=== PATIENT | male | born 1950 | race Caucasian/White ===

== ENCOUNTER 2020-10-21 11:26 | Inpatient (IN) | payer MEDICARE, OTHER ==
[2020-10-21 12:11] LABS: Anisocytosis Slight; Basophils % (A) 1 %; Eosinophils # (A) 0.1 k/uL (0-0.7); Eosinophils % (A) 1 %; HCT 40.2 % (39.0-53.0); HGB 13.4 gm/dL (13.0-17.5); Lymphocytes # (A) 0.4 k/uL (1.0-4.8); Lymphocytes % (A) 5 %; MCH 31.9 pg (25.0-35.0); MCHC 33.4 g/dL (31.0-37.0); MCV 95.6 fL (80.0-100.0); Macrocytosis Slight; Mean Platelet Volume 7.3; Monocytes # (A) 0.5 k/uL (0-1.0); Monocytes % (A) 7 %; Neutrophils # (A) 6.5 k/uL (1.3-7.7); Neutrophils % (A) 85 %; Platelet Count 268 k/uL (150-450); Poikilocytosis Moderate; RDW 17.5 % (11.5-15.5); WBC 7.7 k/uL (3.8-10.6)
[2020-10-21 12:27] LABS: ALT 61 U/L (4-49); AST 50 U/L (17-59); African American GFR (CKD) >90 (>60 ml/min/1.73 sqM); Albumin 3.8 g/dL (3.5-5.0); Alkaline Phosphatase 97 U/L (38-126); Anion Gap 11 mmol/L; Blood Urea Nitrogen 15 mg/dL (9-20); Carbon Dioxide 21 mmol/L (22-30); Chloride 105 mmol/L (98-107); Glucose 163 mg/dL (74-99); Magnesium 1.8 mg/dL (1.6-2.3); Non-African American GFR(CKD) 86 (>60 ml/min/1.73 sqM); Potassium 3.7 mmol/L (3.5-5.1); Sodium 137 mmol/L (137-145); Total Bilirubin 0.9 mg/dL (0.2-1.3); Total Protein 8.3 g/dL (6.3-8.2)
--- NOTE | 2020-10-21 12:28 | XR ---
EXAMINATION TYPE: XR chest 2V DATE OF EXAM: 10/21/2020 COMPARISON: None HISTORY: 70 year-old male shortness of breath and weakness, difficulty breathing TECHNIQUE: AP and lateral views FINDINGS: Heart is enlarged. Diffuse interstitial density and vascular prominence. Small right pleural effusion . No bernadette consolidation. IMPRESSION: Cardiomegaly with interstitial changes and small right pleural effusion. Correlate for CHF with pulmo nary vascular congestion.
[2020-10-21 13:00] LABS: Partial Thromboplastin Time 26.3 sec (22.0-30.0); Prothrombin Time 11.2 sec (9.0-12.0)
[2020-10-21 13:01] LABS: INR 1.1 (<1.2)
--- NOTE | 2020-10-21 13:12 | ED ---
General Adult HPI - General Chief complaint: Shortness of Breath Stated complaint: SOB Time Seen by Provider: 10/21/20 11:41 Source: patient, EMS, RN notes reviewed Mode of arrival: EMS Limitations: no limitations - History of Present Illness Initial comments: Patient is a 70-year-old male that presents to emergency department complaining of shortness of breath. He notes he does have a history of atrial fibrillation any takes eliquis for this. He noted that he is not having any chest pain. He was otherwise a well-appearing 70-year-old male. He denied any cough congestion. She denied any aggravating or alleviating factors at this time. He denied any nausea vomiting diarrhea constipation fever fatigue chills.. - Related Data Allergies Allergy/AdvReac Type Severity Reaction Status Date / Time Unable to Assess Allergy Verified 10/21/20 11:39 Review of Systems ROS Statement: Those systems with pertinent positive or pertinent negative responses have been documented in the HPI. ROS Other: All systems not noted in ROS Statement are negative. Past Medical History Past Medical History: Atrial Fibrillation History of Any Multi-Drug Resistant Organisms: None Reported Past Surgical History: Orthopedic Surgery Past Psychological History: Anxiety, Depression Smoking Status: Former smoker Past Alcohol Use History: None Reported Past Drug Use History: None Reported General Exam Limitations: no limitations General appearance: alert, in no apparent distress Head exam: Present: atraumatic, normocephalic, normal inspection Eye exam: Present: normal appearance, PERRL, EOMI. Absent: scleral icterus, conjunctival injection, periorbital swelling Neck exam: Present: normal inspection Respiratory exam: Present: decreased breath sounds. Absent: respiratory distress, wheezes, rales, rhonchi, stridor Cardiovascular Exam: Present: regular rate, normal rhythm, normal heart sounds. Absent: systolic murmur, diastolic murmur, rubs, gallop, clicks GI/Abdominal exam: Present: soft, normal bowel sounds. Absent: distended, ten derness, guarding, rebound, rigid Extremities exam: Present: normal inspection, full ROM, normal capillary refill. Absent: tenderness, pedal edema, joint swelling, calf tenderness Neurological exam: Present: alert, oriented X3 Psychiatric exam: Present: normal affect, normal mood Skin exam: Present: warm, dry, intact, normal color. Absent: rash Course Vital Signs 10/21/20 10/21/20 10/21/20 11:29 11:57 13:00 Temperature 98.5 F Pulse Rate 120 H 117 H Respiratory 18 20 20 Rate Blood Pressure 144/109 156/113 O2 Sat by Pulse 99 99 Oximetry EKG Findings - EKG Comments: EKG Findings:: Ventricular rate 133 bpm, [place] interval *, QRS duration 128 ms, QTC 541 ms, PRT axes */240/-5. Atrial fibrillation with rapid ventricular response with premature ventricular or aberrantly conducted complexes, right bundle branch block, abnormal ECG. Medical Decision Making - Medical Decision Making 70-year-old male complaining of shortness of breath. Labs, chest x-ray, EKG, conveyor monitor ordered. Labs: BNP 3940, rest unremarkable. Chest x-ray shows vascular congestion correlate for congestive heart failure. Case discussed with Dr. Bui, patient will be admitted. Dr. Leone was consulted and will accept the admit with cardiology consult. - Lab Data Result diagrams: 10/21/20 12:00 10/21/20 12:00 Lab Results 10/21/20 10/21/20 10/21/20 Range/Units 12:00 12:00 12:00 WBC 7.7 (3.8-10.6) k/uL RBC 4.20 L (4.30-5.90) m/uL Hgb 13.4 (13.0-17.5) gm/dL Hct 40.2 (39.0-53.0) % MCV 95.6 (80.0-100.0) fL MCH 31.9 (25.0-35.0) pg MCHC 33.4 (31.0-37.0) g/dL RDW 17.5 H (11.5-15.5) % Plt Count 268 (150-450) k/uL MPV 7.3 Neutrophils % 85 % Lymphocytes % 5 % Monocytes % 7 % Eosinophils % 1 % Basophils % 1 % Neutrophils # 6.5 (1.3-7.7) k/uL Lymphocytes # 0.4 L (1.0-4.8) k/uL Monocytes # 0.5 (0-1.0) k/uL Eosinophils # 0.1 (0-0.7) k/uL Basophils # 0.0 (0-0.2) k/uL Poikilocytosis Moderate Anisocytosis Slight Macrocytosis Slight PT 11.2 (9.0-12.0) sec INR 1.1 (<1.2) APTT 26.3 (22.0-30.0) sec D-Dimer 0.31 (<0.60) mg/L FEU Sodium 137 (137-145) mmol/L Potassium 3.7 (3.5-5.1) mmol/L Chloride 105 (98-107) mmol/L Carbon Dioxide 21 L (22-30) mmol/L Anion Gap 11 mmol/L BUN 15 (9-20) mg/dL Creatinine 0.89 (0.66-1.25) mg/dL Est GFR (CKD-EPI)AfAm >90 (>60 ml/min/1.73 sqM) Est GFR (CKD-EPI)NonAf 86 (>60 ml/min/1.73 sqM) Glucose 163 H (74-99) mg/dL Plasma Lactic Acid Ilya (0.7-2.0) mmol/L Calcium 9.0 (8.4-10.2) mg/dL Magnesium 1.8 (1.6-2.3) mg/dL Total Bilirubin 0.9 (0.2-1.3) mg/dL AST 50 (17-59) U/L ALT 61 H (4-49) U/L Alkaline Phosphatase 97 (38-126) U/L Troponin I (0.000-0.034) ng/mL NT-Pro-B Natriuret Pep pg/mL Total Protein 8.3 H (6.3-8.2) g/dL Albumin 3.8 (3.5-5.0) g/dL 10/21/20 10/21/20 10/21/20 Range/Units 12:00 12:00 12:00 WBC (3.8-10.6) k/uL RBC (4.30-5.90) m/uL Hgb (13.0-17.5) gm/dL Hct (39.0-53.0) % MCV (80.0-100.0) fL MCH (25.0-35.0) pg MCHC (31.0-37.0) g/dL RDW (11.5-15.5) % Plt Count (150-450) k/uL MPV Neutrophils % % Lymphocytes % % Monocytes % % Eosinophils % % Basophils % % Neutrophils # (1.3-7.7) k/uL Lymphocytes # (1.0-4.8) k/uL Monocytes # (0-1.0) k/uL Eosinophils # (0-0.7) k/uL Basophils # (0-0.2) k/uL Poikilocytosis Anisocytosis Macrocytosis PT (9.0-12.0) sec INR (<1.2) APTT (22.0-30.0) sec D-Dimer (<0.60) mg/L FEU Sodium (137-145) mmol/L Potassium (3.5-5.1) mmol/L Chloride (98-107) mmol/L Carbon Dioxide (22-30) mmol/L Anion Gap mmol/L BUN (9-20) mg/dL Creatinine (0.66-1.25) mg/dL Est GFR (CKD-EPI)AfAm (>60 ml/min/1.73 sqM) Est GFR (CKD-EPI)NonAf (>60 ml/min/1.73 sqM) Glucose (74-99) mg/dL Plasma Lactic Acid Ilya 1.7 (0.7-2.0) mmol/L Calcium (8.4-10.2) mg/dL Magnesium (1.6-2.3) mg/dL Total Bilirubin (0.2-1.3) mg/dL AST (17-59) U/L ALT (4-49) U/L Alkaline Phosphatase (38-126) U/L Troponin I 0.017 (0.000-0.034) ng/mL NT-Pro-B Natriuret Pep 3940 pg/mL Total Protein (6.3-8.2) g/dL Albumin (3.5-5.0) g/dL - EKG Data -: EKG Interpreted by Ca EKG Comments: Ventricular rate 133 bpm, [place] interval *, QRS duration 128 ms, QTC 541 ms, PRT axes */240/-5. Atrial fibrillation with rapid ventricular response with premature ventricular or aberrantly conducted complexes, right bundle branch block, abnormal ECG. Disposition Clinical Impression: Acute exacerbation of congestive heart failure Disposition: ADMITTED IP TO THIS HOSP Condition: Stable Referrals: Brad Lopez MD [Primary Care Provider] - 1-2 days Time of Disposition: 13:26
[2020-10-21] MEDS ORDERED: NALOXONE 0.4 MG/ML 1 ML VIAL IV PRN (13:27)
[2020-10-21] MEDS ORDERED: SODIUM CHLORIDE 0.9% 1,000 ML IV SCH (13:30)
[2020-10-21 15:02] LABS: Appearance,Urine Clear (Clear); Bacteria,Urine Rare /hpf; Bilirubin,Urine Negative (Negative); Blood,Urine Trace (Negative); Color,Urine Yellow; Glucose,Urine (UA) Negative (Negative); Hyaline Casts,Urine 4 /lpf (0-2); Ketones,Urine Negative (Negative); Leukocyte Esterase,Urine Small (Negative); Mucus,Urine Rare /hpf; Nitrite,Urine Negative (Negative); PH, Urine 6.5 (5.0-8.0); Protein,Urine 2+ (Negative); RBC,Urine 2 /hpf (0-5); Specific Gravity,Urine 1.012 (1.001-1.035); Squamous Epithelial Cell,Urine <1 /hpf (0-4); Urobilinogen,Urine <2.0 mg/dL (<2.0); WBC,Urine 17 /hpf (0-5)
[2020-10-21 17:04] LABS: Glucose,Whole Blood 122 mg/dL (75-99)
[2020-10-21] MEDS: FUROSEMIDE 10 MG/ML 4 ML VIAL IV SCH (17:51)
[2020-10-21] MEDS: METOPROLOL TARTRATE 50 MG TAB PO SCH ×2 (17:51→23:19)
--- NOTE | 2020-10-21 17:51 | HP ---
HISTORY AND PHYSICAL CHIEF COMPLAINT: Shortness of breath. HISTORY OF PRESENT ILLNESS: This 70-year-old gentleman with a past medical history of multiple medical problems including atrial fibrillation, CHF, diabetes type 2, history of hyperlipidemia, gout being followed by Dr. Lopez in the outpatient setting, was complaining of increasing shortness of breath over the past several days. The patient's current ejection fraction is unknown at this time. The patient also complaining of some leg swelling also. The patient also found to have UTI in the ER. There is no history of fever, rigors, chills at this time. Chest x-ray which was personally reviewed by me showed evidence of significant CHF and some cardiomegaly. There is no history of palpitations, chest pain, hematochezia, melena at this time. The patient has atrial fibrillation. Rate is controlled. The patient is also being anticoagulated. PAST MEDICAL HISTORY: History of atrial fibrillation, CHF, diabetes, hypertension, hyperlipidemia. MEDICATIONS: Home medications are: Klor-Con 20 mEq, Claritin, vitamin D2. Risperdal. Flomax. Zoloft. Ditropan XL. Glucophage. Glucotrol. Lasix, iron sulfate, Catapres, Digitek, Lipitor, Eliquis, Norvasc, Allopurinol, doses reviewed. ALLERGIES: None. FAMILY HISTORY: History of lung cancer in the family. SOCIAL HISTORY: No history of smoking. No history of alcohol intake. REVIEW OF SYSTEMS: ENT: Diminished vision. Diminished hearing. CARDIOVASCULAR as mentioned earlier. RESPIRATORY: As mentioned earlier. GI no nausea or vomiting. no dysuria. NERVOUS SYSTEM: No numbness, weakness. ALLERGY/IMMUNOLOGY: No asthma or hayfever. MUSCULOSKELETAL: As mentioned earlier. HEMATOLOGY/ONCOLOGY: No history of anemia. ENDOCRINE: Diabetes. CONSTITUTIONAL: As mentioned earlier. DERMATOLOGY: Negative. RHEUMATOLOGY negative. PSYCHIATRY as mentioned earlier. PHYSICAL EXAMINATION: Patient is alert, oriented times three. Pulse is 118 and regular. Blood pressure is 150/105. Respirations 18. Temperature 97.4, pulse ox 98% on 2 L. HEENT is conjunctivae normal. NECK is jugular venous distention at the root of the neck. CARDIOVASCULAR system: S1, S2 muffled. Irregular. Ejection systolic murmur. RESPIRATIONS: Breath sounds diminished in the bases. A few scattered rhonchi and crackles. ABDOMEN: Soft, nontender. No mass palpable. LEGS: Bilateral leg edema. NERVOUS SYSTEM: Higher functions as mentioned earlier. Moves all 4 limbs. No focal motor or sensory deficit. LYMPHATICS: No lymph nodes palpable in the neck, axilla or groin. SKIN: No ulcers, rashes or bleeding. JOINTS: No active deforming arthropathy. LABS: WBC 7.7, hemoglobin 13.4, platelets are 268. Sodium 137, potassium 3.7. Glucose 163, ALT is 161, total protein is 8.3, albumin is 3.8. UA noted. ASSESSMENT: 1. Congestive heart failure, acute exacerbation, ejection fraction unknown. 2. Atrial fibrillation with fast ventricular rate. 3. Acute urinary tract infection, present on admission. 4. Elevated ALT possibly hepatitis. 5. Mild lymphopenia. 6. Elevated globulin, rule out chronic liver disease. 7. History atrial fibrillation. 8. History of congestive heart failure. 9. Diabetes mellitus type 2. 10.Hypertension. 11.Hyperlipidemia. 12.History of gout. 13.History of degenerative joint disease. 14.History of anxiety, depression. 15.Remote history of nicotine dependence. 16.Obesity with body mass 33.2. 17.FULL CODE. RECOMMENDATIONS AND DISCUSSION: This 70-year-old gentleman who presented with multiple complex medical issues, we will monitor the patient closely, continue the current medications, management and symptomatic treatment. We will initiate IV diuretics, limit the fluid intake to 1200 mL per 24 hours. Cardiology consultation. Two-D echo with Doppler since the most recent 2D echo is not available. Other than that, I would also recommend empiric antibiotics for UTI. Resume the home medication. Monitor blood sugars closely. I would also recommend workup for the chronic liver disease. Ultrasound of the abdomen will be ordered and prognosis guarded because of multiple complex medical issues. Further recommendations to follow. A copy of dictation being forwarded to Dr. Lopez who is the primary physician. MMODL / IJN: [id number] / WARREN
[2020-10-21] MEDS: ATORVASTATIN 40 MG TAB PO SCH (20:13)
[2020-10-21] MEDS: APIXABAN 5 MG TAB PO SCH (20:13)
[2020-10-21] MEDS: risperiDONE 0.5 MG TAB PO SCH (20:13)
[2020-10-21] MEDS: glipiZIDE 5 MG TAB PO SCH (20:13)
[2020-10-21] MEDS: metFORMIN 500 MG TAB PO SCH (20:13)
[2020-10-21] MEDS: SERTRALINE 50 MG TAB PO SCH (20:13)
[2020-10-21 20:31] LABS: Glucose,Whole Blood 190 mg/dL (75-99)
[2020-10-21] MEDS ORDERED: HYDROcodone/APAP 5-325MG 1 EACH TAB PO STA (22:07)
[2020-10-22] MEDS: FUROSEMIDE 10 MG/ML 4 ML VIAL IV SCH ×3 (01:09→20:31)
[2020-10-22 06:11] LABS: Glucose,Whole Blood 155 mg/dL (75-99)
[2020-10-22] MEDS: TAMSULOSIN 0.4 MG CAP.ER.24H PO SCH (08:59)
[2020-10-22] MEDS: metFORMIN 500 MG TAB PO SCH ×2 (08:59→20:32)
[2020-10-22] MEDS: cloNIDine HCL 0.2 MG TAB PO SCH (08:59)
[2020-10-22] MEDS: METOPROLOL TARTRATE 50 MG TAB PO SCH ×2 (08:59→20:32)
[2020-10-22] MEDS: FERROUS SULFATE 325 MG TAB PO SCH (08:59)
[2020-10-22] MEDS: allopurinoL 100 MG TAB PO SCH (08:59)
[2020-10-22] MEDS ORDERED: DIGOXIN 125 MCG TAB PO SCH (09:00)
[2020-10-22] MEDS: glipiZIDE 5 MG TAB PO SCH ×2 (09:00→20:32)
[2020-10-22] MEDS ORDERED: ERGOCALCIFEROL 1,250 MCG (50,000 IU) CAPSULE PO SCH (09:00)
[2020-10-22] MEDS: OXYBUTYNIN XL 5 MG TAB.ER.24 PO SCH (09:00)
[2020-10-22] MEDS ORDERED: POTASSIUM CHLORIDE ER 20 MEQ TAB.ER PO SCH (09:00)
[2020-10-22] MEDS: APIXABAN 5 MG TAB PO SCH (09:00)
[2020-10-22] MEDS: lisinopriL 5 MG TAB PO SCH (09:00)
[2020-10-22] MEDS ORDERED: amLODIPine 5 MG TAB PO SCH (09:00)
[2020-10-22] MEDS: LORATADINE 10 MG TAB PO SCH (09:00)
--- NOTE | 2020-10-22 09:41 | US ---
EXAMINATION TYPE: US abdomen limited DATE OF EXAM: 10/22/2020 COMPARISON: US 2014 CLINICAL HISTORY: CHRONIC LIVER DISEASE. Exam done portable. EXAM MEASUREMENTS: Liver Length: 19.9 cm Gallbladder Wall: 0.2 cm CBD: 0.4 cm Right Kidney: 14.4 cm Pancreas: obscured by overlying midline bowel gas Liver: enlarged, mildly heterogeneous Gallbladder: mildly distended, no wall thickening, 0.3cm hyperechoic focus Evidence for sonographic Ferrer's sign: no CBD: wnl Right Kidney: wnl Spleen: enlarged IMPRESSION: 1. Hepatomegaly with nonspecific pattern of liver can be seen with hepatitis or diffuse hepatocellula r disease, compatible steatosis. Correlate clinically. 2. There is a 3 mm gallstone.
[2020-10-22 10:06] LABS: Anisocytosis Slight; Basophils # (A) 0.1 k/uL (0-0.2); Basophils % (A) 1 %; Eosinophils # (A) 0.1 k/uL (0-0.7); Eosinophils % (A) 1 %; HCT 42.3 % (39.0-53.0); Hypochromasia Slight; Lymphocytes # (A) 0.5 k/uL (1.0-4.8); Lymphocytes % (A) 7 %; MCH 32.1 pg (25.0-35.0); MCHC 33.1 g/dL (31.0-37.0); MCV 96.8 fL (80.0-100.0); Macrocytosis Slight; Mean Platelet Volume 8.2; Monocytes # (A) 0.6 k/uL (0-1.0); Monocytes % (A) 8 %; Neutrophils % (A) 80 %; Platelet Count 286 k/uL (150-450); Poikilocytosis Moderate; RBC 4.37 m/uL (4.30-5.90); RDW 17.2 % (11.5-15.5); WBC 7.5 k/uL (3.8-10.6)
[2020-10-22 10:19] LABS: INR 1.1 (<1.2); Partial Thromboplastin Time 26.1 sec (22.0-30.0); Prothrombin Time 11.5 sec (9.0-12.0)
[2020-10-22] MEDS: HEPARIN SOD,PORK IN 0.45% NACL 25,000 UNIT in 0.45% NACL 1 250ML.BAG IV SCH (10:23)
[2020-10-22] MEDS: SPIRONOLACTONE 25 MG TAB PO SCH (10:44)
[2020-10-22] MEDS ORDERED: NITROGLYCERIN SL TABS 0.4 MG TAB SUBLINGUAL PRN (10:58)
[2020-10-22] MEDS ORDERED: ALPRAZolam 0.5 MG TAB PO PRN (10:58)
[2020-10-22] MEDS ORDERED: ALPRAZolam 0.25 MG TAB PO PRN (10:58)
[2020-10-22 10:59] LABS: African American GFR (CKD) >90 (>60 ml/min/1.73 sqM); Anion Gap 13 mmol/L; Blood Urea Nitrogen 15 mg/dL (9-20); Calcium 8.7 mg/dL (8.4-10.2); Carbon Dioxide 25 mmol/L (22-30); Chloride 102 mmol/L (98-107); Glucose 164 mg/dL (74-99); Non-African American GFR(CKD) 81 (>60 ml/min/1.73 sqM); Potassium 3.3 mmol/L (3.5-5.1); Sodium 140 mmol/L (137-145)
--- NOTE | 2020-10-22 11:39 | ECHOF ---
Referral Reason:CHF MEASUREMENTS -------- HEIGHT: 175.3 cm WEIGHT: 88.5 kg BP: 151/87 RVIDd: 3.0 cm (< 3.3) IVSd: 1.4 cm (0.6 - 1.1) LVIDd: 4.7 cm (3.9 - 5.3) LVPWd: 1.4 cm (0.6 - 1.1) IVSs: 1.6 cm LVIDs: 4.1 cm LVPWs: 1.6 cm LA Diam: 3.8 cm (2.7 - 3.8) LAESV Index (A-L): 24.05 ml/m Ao Diam: 3.0 cm (2.0 - 3.7) AV Cusp: 1.9 cm (1.5 - 2.6) MV EXCURSION: 23.254 mm (> 18.000) MV EF SLOPE: 117 mm/s (70 - 150) EPSS: 1.0 cm AV maxP.21 mmHg AV meanP.29 mmHg RAP: 15.00 mmHg RVSP: 57.59 mmHg FINDINGS -------- Atrial fibrillation. This was a technically adequate study. The left ventricular size is normal. There is moderate concentric left ventricular hypertrophy. O verall left ventricular systolic function is moderately impaired with, an EF between 35 - 40 %. Bas al lateral LV wall motion is akinetic. Basal posterior LV wall motion is hypokinetic. Mid later al LV wall motion is akinetic. Mid posterior LV wall motion is hypokinetic. The right ventricle is normal in size. Normal LA size by volume 22+/-6 ml/m2. The right atrium is normal in size. Interatrial and interventricular septum intact. There is mild aortic valve sclerosis. Trace amount of aortic regurgitation. The mitral valve leaflets are mildly thickened. Mild mitral annular calcification present. Modera te mitral regurgitation is present. [id number] tricuspid regurgitation present. There is severe pulmonary hypertension. The rig ht ventricular systolic pressure, as measured by Doppler, is 57.59mmHg. The pulmonic valve was not well visualized. The aortic root size is normal. The inferior vena cava is dilated with no significant inspiratory collapse which is consistent estima robert right atrial pressure of >15 mmHg. There is no pericardial effusion. CONCLUSIONS -------- 1. The left ventricular size is normal. 2. There is moderate concentric left ventricular hypertrophy. 3. Overall left ventricular systolic function is moderately impaired with, an EF between 35 - 40 %. 4. Basal lateral LV wall motion is akinetic. 5. Basal posterior LV wall motion is hypokinetic. 6. Mid lateral LV wall motion is akinetic. 7. Mid posterior LV wall motion is hypokinetic. 8. There is mild aortic valve sclerosis. 9. Trace amount of aortic regurgitation. 10. The mitral valve leaflets are mildly thickened. 11. Mild mitral annular calcification present. 12. Moderate mitral regurgitation is present. 13. [id number] tricuspid regurgitation present. 14. There is severe pulmonary hypertension. 15. The right ventricular systolic pressure, as measured by Doppler, is 57.59mmHg. 16. The inferior vena cava is dilated with no significant inspiratory collapse which is consistent es timated right atrial pressure of >15 mmHg. 17. There is no pericardial effusion. PROJECT DEVELOPMENT LEADER: Marta Reyes RDCS
--- NOTE | 2020-10-22 11:46 | P.CRDCN ---
History of Present Illness History of present illness: HISTORY OF PRESENTING ILLNESS This is a pleasant 70-year-old occasion male past medical history significant for paroxysmal atrial fibrillation on long-term anticoagulation, hypertension, diabetes mellitus, dyslipidemia and heart failure unknown type. He does not follow regularly in the office with a second chef. He states he follows regularly at [facility] and they manage his medications. He has seen Dr. Grant in the past but he states it has been many many years. The patient denies ever having had a cardiac catheterization. We have been asked to see in consultation for shortness of breath. He states for the past few days he has noticed increasing shortness of breath and some intermittent palpitations. He denies chest pain, dizziness, nausea, vomiting or diaphoresis. He has been initiated on IV diuretics and states his breathing has improved since admission however not back to baseline. DIAGNOSTICS EKG reveals atrial fibrillation with underlying right bundle branch block heart rate of 133. Telemetry tracings indicate atrial fibrillation with frequent episodes of nonsustained ventricular tachycardia. Chest xray cardiomegaly with interstitial changes and small right pleural effusion. Laboratory reviewed, CBC unremarkable, sodium 140, potassium 3.3, creatinine 0.95, magnesium 1.8, troponin negative 2, NT proBNP 3940 and TSH 2.97. Current cardiac medications include amlodipine 5 mg daily, Eliquis 5 mg twice a day, atorvastatin 40 mg daily, digoxin 125 g daily, clonidine 0.2 mg daily, Lasix 20 mg daily, lisinopril 5 mg daily. REVIEW OF SYSTEMS At the time of my exam: CONSTITUTIONAL: Denies fever or chills. CARDIOVASCULAR: Denies chest pain, shortness of breath, orthopnea, PND or palpitations. RESPIRATORY: Denies cough. GASTROINTESTINAL: Denies abdominal pain, diarrhea, constipation, nausea or vomiting. MUSCULOSKELETAL: Denies myalgias. NEUROLOGIC: Denies numbness, tingling, headache or weakness. ENDOCRINE: Denies fatigue, weight change, polydipsia or polyurina. GENITOURINARY: Denies burning, hematuria or urgency with micturation. HEMATOLOGIC: Denies history of anemia or bleeding. PHYSICAL EXAMINATION Blood pressure 148/67 heart rate 100 afebrile and maintaining oxygen saturation on cannula. CONSTITUTIONAL: No apparent distress. HEENT: Head is normocephalic. Pupils are equal, round. Sclerae anicteric. Mucous membranes of the mouth are moist. No JVD. No carotid bruit. CHEST EXAMINATION: Basilar rales, no wheezes or rhonchi. Diminished bilaterally. No chest wall tenderness is noted on palpation or with deep breathing. HEART EXAMINATION: Regular rate and rhythm. S1, S2 heard. No murmurs, gallops or rub. ABDOMEN: Soft, nontender. EXTREMITIES: 2+ peripheral pulses, 1+ bilateral lower extremity pitting edema and no calf tenderness. NEUROLOGIC EXAMINATION: Patient is awake, alert and oriented x3. ASSESSMENT Acute on chronic heart failure, unknown type Nonsustained ventricular tachycardia Hypertension Dyslipidemia Paroxysmal atrial fibrillation on long-term anticoagulation Diabetes mellitus PLAN Acute coronary event has been ruled out. Continue IV diuresis for another 24-48 hours. Hold Eliquis initiate on heparin infusion. Discontinue digoxin and continue Lopressor 50 mg twice a day. Discontinue amlodipine and optimize beta blockers as tolerated. Add Aldactone 25 mg daily. Documented accurate intake and output along with daily weights. Follow renal function and electrolytes in the morning. Echocardiogram has been obtained and will be reviewed. Plan for cardiac catheterization if his fluid volume status has improved by the morning. I have discussed the risks, benefits and alternative therapies for the above- mentioned procedure and for both sedation/analgesia as well as necessary blood product administration, if indicated, as they pertain to this patient. The patient has indicated understanding and acceptance of the risks and procedures discussed. Further recommendations to follow based upon clinical course. Thank you kindly for this consultation. Nurse Practitioner note has been reviewed, I agree with a documented findings and plan of care. Patient was seen and examined. Past Medical History Past Medical History: Atrial Fibrillation, Heart Failure, Diabetes Mellitus, Hyperlipidemia, Hypertension Additional Past Medical History / Comment(s): gout History of Any Multi-Drug Resistant Organisms: None Reported Past Surgical History: Orthopedic Surgery Additional Past Surgical History / Comment(s): hip replacement x2 Past Psychological History: Anxiety, Depression Smoking Status: Former smoker Past Alcohol Use History: None Reported Past Drug Use History: None Reported - Past Family History Mother Family Medical History: Cancer Brother(s) Family Medical History: Cancer Additional Family Medical History / Comment(s): lung Father History Unknown: Yes Medications and Allergies Home Medications Medication Instructions Recorded Confirmed Type Allopurinol [Zyloprim] 100 mg PO DAILY 10/21/20 10/21/20 History Apixaban [Eliquis] 5 mg PO BID 10/21/20 10/21/20 History Atorvastatin [Lipitor] 40 mg PO HS 10/21/20 10/21/20 History Digoxin [Digitek] 125 mcg PO DAILY 10/21/20 10/21/20 History Ergocalciferol [Vitamin D2 (1250 1,250 mcg PO Q7D 10/21/20 10/21/20 History Mcg = [id number] Iu)] Ferrous Sulfate [Iron] 325 mg PO DAILY 10/21/20 10/21/20 History Furosemide [Lasix] 20 mg PO DAILY 10/21/20 10/21/20 History Loratadine [Claritin] 10 mg PO DAILY 10/21/20 10/21/20 History Oxybutynin Xl [Ditropan XL] 5 mg PO DAILY 10/21/20 10/21/20 History Potassium Chloride [Klor-Con 20] 20 meq PO DAILY 10/21/20 10/21/20 History Sertraline HCl [Zoloft] 50 mg PO HS 10/21/20 10/21/20 History Tamsulosin HCl [Flomax] 0.4 mg PO DAILY 10/21/20 10/21/20 History amLODIPine [Norvasc] 5 mg PO DAILY 10/21/20 10/21/20 History cloNIDine HCL [Catapres] 0.2 mg PO DAILY 10/21/20 10/21/20 History glipiZIDE XL [Glucotrol XL] 5 mg PO BID 10/21/20 10/21/20 History lisinopriL 5 mg PO DAILY 10/21/20 10/21/20 History metFORMIN HCL [Glucophage] 500 mg PO BID 10/21/20 10/21/20 History risperiDONE [RisperDAL] 0.5 mg PO HS 10/21/20 10/21/20 History Allergies Allergy/AdvReac Type Severity Reaction Status Date / Time No Known Allergies Allergy Verified 10/21/20 15:42 Physical Exam Vitals: Vital Signs Temp Pulse Pulse Resp BP BP Pulse Ox 10/22/20 07:48 85 22 10/22/20 04:00 97.4 F L 85 22 151/87 100 10/21/20 23:43 97.4 F L 82 20 144/87 97 10/21/20 20:00 97.5 F L 87 18 158/93 99 10/21/20 15:30 97.4 F L 116 H 18 156/105 98 10/21/20 14:43 118 H 20 154/102 98 10/21/20 14:23 118 H 20 147/108 98 10/21/20 13:00 117 H 20 156/113 99 10/21/20 11:57 20 10/21/20 11:29 98.5 F 120 H 18 144/109 99 Intake and Output 10/21/20 10/22/20 10/22/20 22:59 06:59 14:59 Intake Total 240 Output Total 660 610 610 Balance -129 -053 -785 Intake: Oral 240 Output: Urine 660 610 610 Other: Voiding Method Toilet Toilet Toilet Urinal Urinal Urinal # Voids 3 1 1 # Bowel Movements 150 150 Weight 102.058 kg 88.5 kg Results 10/22/20 09:52 10/22/20 09:52 Cardiac Enzymes 10/21/20 10/21/20 Range/Units 12:00 12:00 AST 50 (17-59) U/L Troponin I 0.017 (0.000-0.034) ng/mL Coagulation 10/21/20 Range/Units 12:00 PT 11.2 (9.0-12.0) sec APTT 26.3 (22.0-30.0) sec CBC 10/21/20 Range/Units 12:00 WBC 7.7 (3.8-10.6) k/uL RBC 4.20 L (4.30-5.90) m/uL Hgb 13.4 (13.0-17.5) gm/dL Hct 40.2 (39.0-53.0) % Plt Count 268 (150-450) k/uL Comprehensive Metabolic Panel 10/21/20 Range/Units 12:00 Sodium 137 (137-145) mmol/L Potassium 3.7 (3.5-5.1) mmol/L Chloride 105 (98-107) mmol/L Carbon Dioxide 21 L (22-30) mmol/L BUN 15 (9-20) mg/dL Creatinine 0.89 (0.66-1.25) mg/dL Glucose 163 H (74-99) mg/dL Calcium 9.0 (8.4-10.2) mg/dL AST 50 (17-59) U/L ALT 61 H (4-49) U/L Alkaline Phosphatase 97 (38-126) U/L Total Protein 8.3 H (6.3-8.2) g/dL Albumin 3.8 (3.5-5.0) g/dL Current Medications Generic Name Dose Route Start Last Admin Trade Name Freq PRN Reason Stop Dose Admin Hydrocodone Bitart/Acetaminophen 1 each 10/22/20 15:07 Hydrocodone/Apap 5-325mg 1 Each Tab PO Q6HR PRN Pain Allopurinol 100 mg 10/22/20 09:00 Allopurinol 100 Mg Tab PO DAILY [facility] Amlodipine Besylate 5 mg 10/22/20 09:00 Amlodipine 5 Mg Tab PO DAILY [facility] Apixaban 5 mg 10/21/20 21:00 10/21/20 20:13 Apixaban 5 Mg Tab PO 5 mg BID YESSY Administration Protocol Atorvastatin Calcium 40 mg 10/21/20 21:00 10/21/20 20:13 Atorvastatin 40 Mg Tab PO 40 mg HS YESSY Administration Clonidine 0.2 mg 10/22/20 09:00 Clonidine Hcl 0.2 Mg Tab PO DAILY [facility] Digoxin 125 mcg 10/22/20 09:00 Digoxin 125 Mcg Tab PO DAILY [facility] Ergocalciferol 1,250 mcg 10/22/20 09:00 Ergocalciferol 1,250 Mcg (50,000 Iu) Capsule PO Q7D [facility] Ferrous Sulfate 325 mg 10/22/20 09:00 Ferrous Sulfate 325 Mg Tab PO DAILY [facility] Furosemide 40 mg 10/21/20 18:00 10/22/20 01:09 Furosemide 10 Mg/Ml 4 Ml Vial IV 40 mg Q8H YESSY Administration Glipizide 5 mg 10/21/20 21:00 10/21/20 20:13 Glipizide 5 Mg Tab PO 5 mg BID YESSY Administration Ceftriaxone Sodium 1 gm/ 50 mls @ 100 mls/hr 10/21/20 18:00 10/21/20 17:52 Sodium Chloride IVPB 100 mls/hr Q24HR YESSY Administration Lisinopril 5 mg 10/22/20 09:00 Lisinopril 5 Mg Tab PO DAILY [facility] Loratadine 10 mg 10/22/20 09:00 Loratadine 10 Mg Tab PO DAILY [facility] Metformin HCl 500 mg 10/21/20 21:00 10/21/20 20:13 Metformin 500 Mg Tab PO 500 mg BID YESSY Administration Metoprolol Tartrate 50 mg 10/21/20 18:00 10/21/20 23:19 Metoprolol Tartrate 50 Mg Tab PO 50 mg BID YESSY Administration Naloxone HCl 0.2 mg 10/21/20 13:27 Naloxone 0.4 Mg/Ml 1 Ml Vial IV Q2M PRN Opioid Reversal Oxybutynin Chloride 5 mg 10/22/20 09:00 Oxybutynin Xl 5 Mg Tab.Er.24 PO DAILY YESSY Potassium Chloride 20 meq 10/22/20 09:00 Potassium Chloride Er 20 Meq Tab.Er PO DAILY YESSY Risperidone 0.5 mg 10/21/20 21:00 10/21/20 20:13 Risperidone 0.5 Mg Tab PO 0.5 mg HS YESSY Administration Sertraline HCl 50 mg 10/21/20 21:00 10/21/20 20:13 Sertraline 50 Mg Tab PO 50 mg HS YESSY Administration Tamsulosin HCl 0.4 mg 10/22/20 09:00 Tamsulosin 0.4 Mg Cap.Er.24h PO DAILY YESSY Intake and Output 10/21/20 10/22/20 10/22/20 22:59 06:59 14:59 Intake Total 240 Output Total 660 610 610 Balance -755 -548 -610 Intake: Oral 240 Output: Urine 660 610 610 Other: Voiding Method Toilet Toilet Toilet Urinal Urinal Urinal # Voids 3 1 1 # Bowel Movements 150 150 Weight 102.058 kg 88.5 kg 10/21/20 12:00 10/21/20 12:00
[2020-10-22 11:58] LABS: Glucose,Whole Blood 119 mg/dL (75-99)
[2020-10-22] MEDS ORDERED: POTASSIUM CHLORIDE ER 20 MEQ TAB.ER PO STA (15:44)
--- NOTE | 2020-10-22 15:57 | P.PN ---
Subjective Progress Note Date: 10/22/20 This is a 70-year-old male who was recently admitted with increasing shortness of breath over the last few days and progressively getting worse. Patient being closely followed by cardiology and underwent 2-D echo showing moderate left concentric ventricular hypertrophy with overall LV systolic function is moderately impaired with an EF of 35-40% with mild aortic valve sclerosis and a trace amount of aortic regurgitation in the mitral valve leaflets are mildly thickened with moderate mitral regurgitation present in mild to moderate tricuspid regurgitation present with severe pulmonary hypertension noted. Patient is continued on IV Lasix for diuresis and will continue at this time. Patient also noted to have some lower extremity edema and abdominal discomfort. Patient was found to have an acute urinary tract infection present on admission and started on ceftriaxone and will continue at this time. Patient underwent abdominal ultrasound showing hepatomegaly with nonspecific pattern of liver that can be seen with hepatitis or diffuse hepatocellular disease that is compatible with steatosis with 3 mm gallstone and CBD within normal limits. Patient was continued on oral anticoagulant although will hold Eliquis and place patient on IV heparin and discussion is being had about possible cardiac catheterization tomorrow with cardiology. White blood count is stable at 7.5 and hemoglobin is 14.0, sodium is 140 with a potassium of 3.3 and will replace, current creatinine is 0.95. Patient is also being started on Aldactone. Review of systems: Constitutional: No reports of fatigue, fever, or chills Cardiovascular: No reports of chest pain or palpitations Respiratory: Reports mild shortness of breath GI: No reports of nausea, vomiting, or diarrhea : No reports of dysuria or retention Neurovascular: Reports generalized weakness and lower extremity swelling All medications have been reviewed Active Medications Hydrocodone Bitart/Acetaminophen (Hydrocodone/Apap 5-325mg 1 Each Tab) 1 each PO Q6HR PRN PRN Reason: Pain Allopurinol (Allopurinol 100 Mg Tab) 100 mg PO DAILY YESSY Last Admin: 10/22/20 08:59 Dose: 100 mg Documented by: Alprazolam (Alprazolam 0.25 Mg Tab) 0.25 mg PO Q6HR PRN PRN Reason: Mild Anxiety Alprazolam (Alprazolam 0.5 Mg Tab) 0.5 mg PO Q6HR PRN PRN Reason: Moderate Anxiety Aspirin (Aspirin 325 Mg Tab) 325 mg PO ONCE ONE Stop: 10/23/20 06:01 Atorvastatin Calcium (Atorvastatin 40 Mg Tab) 40 mg PO HS [facility] Last Admin: 10/21/20 20:13 Dose: 40 mg Documented by: Atorvastatin Calcium (Atorvastatin 80 Mg Tab) 80 mg PO ONCE ONE Stop: 10/23/20 06:01 Clonidine (Clonidine Hcl 0.2 Mg Tab) 0.2 mg PO DAILY [facility] Last Admin: 10/22/20 08:59 Dose: 0.2 mg Documented by: Ergocalciferol (Ergocalciferol 1,250 Mcg (50,000 Iu) Capsule) 1,250 mcg PO Q7D [facility] Last Admin: 10/22/20 08:59 Dose: 1,250 mcg Documented by: Ferrous Sulfate (Ferrous Sulfate 325 Mg Tab) 325 mg PO DAILY [facility] Last Admin: 10/22/20 08:59 Dose: 325 mg Documented by: Furosemide (Furosemide 10 Mg/Ml 4 Ml Vial) 40 mg IV Q12HR [facility] Glipizide (Glipizide 5 Mg Tab) 5 mg PO BID [facility] Last Admin: 10/22/20 09:00 Dose: 5 mg Documented by: Heparin Sodium (Porcine) (Heparin Sodium 1,000 Un/Ml (10ml Vl)) 0 unit IV PER PROTOCOL PRN; Protocol PRN Reason: Low PTT Ceftriaxone Sodium 1 gm/ (Sodium Chloride) 50 mls @ 100 mls/hr IVPB Q24HR [facility] Last Admin: 10/22/20 08:53 Dose: 100 mls/hr Documented by: Heparin Sodium/Sodium Chloride (25,000 unit/ Sodium Chloride) 250 mls @ 10 mls/hr IV .Q24H [facility]; Protocol Last Admin: 10/22/20 10:23 Dose: 11.299 units/kg/hr, 10 mls/hr Documented by: Sodium Chloride 1,000 ml/ IV (Solution) 1,000 mls @ 50 mls/hr IV .Q20H ONE Stop: 10/23/20 23:59 Heparin Sodium (Porcine) 10, (000 unit/ Sodium Chloride) 1,001 mls @ 999 mls/hr IRRIGATION ONCE PRN PRN Reason: INTRA-OP Stop: 10/23/20 23:00 Heparin Sodium (Porcine) 2,500 (unit/ Sodium Chloride) 250.5 mls @ 250 mls/hr IRRIGATION ONCE PRN PRN Reason: INTRA-OP Stop: 10/23/20 23:00 Lisinopril (Lisinopril 5 Mg Tab) 5 mg PO DAILY [facility] Last Admin: 10/22/20 09:00 Dose: 5 mg Documented by: Loratadine (Loratadine 10 Mg Tab) 10 mg PO DAILY [facility] Last Admin: 10/22/20 09:00 Dose: 10 mg Documented by: Metformin HCl (Metformin 500 Mg Tab) 500 mg PO BID [facility] Last Admin: 10/22/20 08:59 Dose: 500 mg Documented by: Metoprolol Tartrate (Metoprolol Tartrate 50 Mg Tab) 50 mg PO BID [facility] Last Admin: 10/22/20 08:59 Dose: 50 mg Documented by: Naloxone HCl (Naloxone 0.4 Mg/Ml 1 Ml Vial) 0.2 mg IV Q2M PRN PRN Reason: Opioid Reversal Nitroglycerin (Nitroglycerin Sl Tabs 0.4 Mg Tab) 0.4 mg SUBLINGUAL Q5M PRN PRN Reason: Chest Pain Oxybutynin Chloride (Oxybutynin Xl 5 Mg Tab.Er.24) 5 mg PO DAILY [facility] Last Admin: 10/22/20 09:00 Dose: 5 mg Documented by: Risperidone (Risperidone 0.5 Mg Tab) 0.5 mg PO [facility] Last Admin: 10/21/20 20:13 Dose: 0.5 mg Documented by: Sertraline HCl (Sertraline 50 Mg Tab) 50 mg PO HS [facility] Last Admin: 10/21/20 20:13 Dose: 50 mg Documented by: Spironolactone (Spironolactone 25 Mg Tab) 25 mg PO DAILY [facility] Last Admin: 10/22/20 10:44 Dose: 25 mg Documented by: Tamsulosin HCl (Tamsulosin 0.4 Mg Cap.Er.24h) 0.4 mg PO DAILY [facility] Last Admin: 10/22/20 08:59 Dose: 0.4 mg Documented by: Objective - Vital Signs Vital signs: Vital Signs Temp 97.8 F 10/22/20 14:59 Pulse 95 10/22/20 14:59 Resp 20 10/22/20 14:59 BP 144/68 10/22/20 14:59 Pulse Ox 95 10/22/20 14:59 Intake & Output 10/21/20 10/22/20 10/22/20 18:59 06:59 18:59 Intake Total 240 Output Total 200 1070 910 Balance 40 -1070 -910 Weight 102.058 kg 88.5 kg Intake: Oral 240 Output: Urine 200 1070 910 Other: Voiding Method Urinal Toilet Toilet Urinal Urinal # Voids 1 1 1 # Bowel Movements 150 150 - Exam Gen: This is a 70-year-old male lying in bed awake, alert and oriented 3, well- developed, well-nourished. Temp is 98F, pulse is 100, respirations are 22, blood pressure is 148/67, oxygen saturation is 98% on 2 L via nasal cannula. HEENT: Head is atraumatic, normocephalic. Pupils equal, round. Sclerae is anicteric. NECK: Supple. No JVD. No lymphadenopathy. No thyromegaly. LUNGS: Diminished breath sounds at the bases with some scattered rhonchi and crackles noted. No intercostal retractions. HEART: S1, S2 are muffled ABDOMEN: Soft. Obese. Bowel sounds are present. No masses. No tenderness. EXTREMITIES: No pedal edema. No calf tenderness. 1+ pitting edema to bilateral lower extremities NEUROLOGICAL: Patient is awake, alert and oriented x3. No focal deficits. - Labs CBC & Chem 7: 10/22/20 09:52 10/22/20 09:52 Labs: Abnormal Lab Results - Last 24 Hours (Table) 10/21/20 10/21/20 10/22/20 Range/Units 17:02 20:27 06:11 RDW (11.5-15.5) % Lymphocytes # (1.0-4.8) k/uL Potassium (3.5-5.1) mmol/L Glucose (74-99) mg/dL POC Glucose (mg/dL) 122 H 190 H 155 H (75-99) mg/dL 10/22/20 10/22/20 10/22/20 Range/Units 09:52 09:52 11:56 RDW 17.2 H (11.5-15.5) % Lymphocytes # 0.5 L (1.0-4.8) k/uL Potassium 3.3 L (3.5-5.1) mmol/L Glucose 164 H (74-99) mg/dL POC Glucose (mg/dL) 119 H (75-99) mg/dL Microbiology - Last 24 Hours (Table) 10/21/20 12:00 Urine Culture - Preliminary Urine,Voided Assessment and Plan Assessment: Congestive heart failure acute exacerbation, acute on chronic systolic dysfunction with an EF of 35-40% Atrial fibrillation with fast ventricular rate Acute urinary tract infection, present on admission Elevated ALT possibly hepatitis Mild lymphopenia Elevated globulin, rule out chronic liver disease History of atrial fibrillation history of congestive heart failure diabetes mellitus type 2 Hypertension Hyperlipidemia History of gout History of degenerative joint disease history of anxiety, depression remote history of nicotine dependence obesity with a body mass index of 33.2 Full code Commendations and discussion: Recommend to continue with current medications and patient is maintained on IV Lasix and will continue along with fluid restrictions of 1200 mL's per day and cardiology following closely. Patient underwent 2-D echo as mentioned previously with an impaired LV function and EF of 35-40%. Patient has continued lower extremity swelling and will continue with diuresis. Patient is maintained on IV ceftriaxone for possible acute urinary tract infection and will continue to monitor closely. Ultrasound of the abdomen showing hepatomegaly and a 3 mm gallstone. Cardiology following and plan is for possible cardiac catheterization in the morning. Will repeat labs in continue to monitor closely. Due to multiple complex medical issues, prognosis is guarded. Time with Patient: Greater than 30
[2020-10-22 16:41] LABS: Glucose,Whole Blood 98 mg/dL (75-99)
[2020-10-22] MEDS: HEPARIN SODIUM 1,000 UN/ML (10ML VL) IV PRN (17:21)
[2020-10-22 20:20] LABS: Glucose,Whole Blood 129 mg/dL (75-99)
[2020-10-22] MEDS: ATORVASTATIN 40 MG TAB PO SCH (20:31)
[2020-10-22] MEDS: risperiDONE 0.5 MG TAB PO SCH (20:32)
[2020-10-22] MEDS: SERTRALINE 50 MG TAB PO SCH (20:32)
[2020-10-22 21:17] LABS: Chol/HDL Ratio 3.06; Cholesterol 101 mg/dL (0-200); LDL Cholesterol,Calculated 45.6 mg/dL (0.0-131.0)
[2020-10-23] MEDS ORDERED: SODIUM CHLORIDE 0.9% 1,000 ML in EMPTY BAG 1 BAG IV ONE (04:00)
[2020-10-23] MEDS ORDERED: ATORVASTATIN 80 MG TAB PO ONE (06:00)
[2020-10-23] MEDS ORDERED: ASPIRIN 325 MG TAB PO ONE (06:00)
[2020-10-23 06:09] LABS: Glucose,Whole Blood 121 mg/dL (75-99)
[2020-10-23] MEDS: HEPARIN SOD,PORK IN 0.45% NACL 25,000 UNIT in 0.45% NACL 1 250ML.BAG IV SCH (06:28)
[2020-10-23] MEDS ORDERED: HEPARIN SODIUM,PORCINE 2,500 UNIT in SODIUM CHLORIDE 0.9% 250 ML IRRIGATION PRN (07:00)
[2020-10-23] MEDS ORDERED: HEPARIN SODIUM,PORCINE 10,000 UNIT in SODIUM CHLORIDE 0.9% 1,000 ML IRRIGATION PRN (07:00)
[2020-10-23 09:13] LABS: Anisocytosis Slight; Basophils % (A) 1 %; Eosinophils # (A) 0.1 k/uL (0-0.7); Eosinophils % (A) 2 %; HCT 39.9 % (39.0-53.0); Hypochromasia Slight; Lymphocytes # (A) 0.9 k/uL (1.0-4.8); Lymphocytes % (A) 14 %; MCH 31.9 pg (25.0-35.0); MCHC 32.6 g/dL (31.0-37.0); MCV 98.1 fL (80.0-100.0); Macrocytosis Slight; Mean Platelet Volume 7.7; Monocytes # (A) 0.6 k/uL (0-1.0); Monocytes % (A) 9 %; Neutrophils # (A) 4.6 k/uL (1.3-7.7); Neutrophils % (A) 72 %; Platelet Count 272 k/uL (150-450); Poikilocytosis Moderate; RBC 4.07 m/uL (4.30-5.90); RDW 17.3 % (11.5-15.5); WBC 6.5 k/uL (3.8-10.6)
[2020-10-23] MEDS ORDERED: LIDOCAINE 1% INJ 10MG/ML (20 ML MDV) ONE (09:18)
[2020-10-23] MEDS ORDERED: VERAPAMIL 2.5 MG/ML 2 ML AMP ONE (09:19)
[2020-10-23 09:34] LABS: INR 1.1 (<1.2); Prothrombin Time 11.4 sec (9.0-12.0)
[2020-10-23] MEDS ORDERED: IV FLUID CONTINUATION 1,000 ML IV ONE (09:45)
[2020-10-23] MEDS ORDERED: fentaNYL (PF) 50 MCG/ML 2 ML AMP ONE (09:59)
[2020-10-23] MEDS: fentaNYL (PF) 50 MCG/ML 2 ML AMP IV ONE ×2 (10:02→11:34)
[2020-10-23] MEDS ORDERED: MIDAZOLAM 2 MG/2 ML VIAL IV ONE (10:02)
[2020-10-23] MEDS ORDERED: LIDOCAINE 1% INJ 10MG/ML (20 ML MDV) SQ ONE (10:03)
[2020-10-23 10:08] LABS: Calcium 8.4 mg/dL (8.4-10.2); Potassium 3.5 mmol/L (3.5-5.1)
[2020-10-23] MEDS ORDERED: HEPARIN SODIUM 1,000 UN/ML (10ML VL) ONE (10:12)
[2020-10-23] MEDS ORDERED: METOPROLOL TARTRATE 5 MG/5 ML VIAL IVP ONE ×2 (10:22→10:24)
--- NOTE | 2020-10-23 10:45 | P.CARDCATH ---
Date of Procedure: 10/23/20 Preoperative Diagnosis: Ischemic cardiac myopathy, CHF and episodes of nonsustained V. 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 Severe disease involving the mid LAD Procedure(s) Performed: Left heart catheterization without left ventriculography Description of Procedure: HISTORY: This is a 70-year-old gentleman apparently mentally challenged with history of ischemic heart disease who presented to the hospital with increasing shortness of breath and palpitations. Patient was found to have source of atrial fibrillation and also nonsustained V. tach. His troponins are normal. His echocardiogram showed hypokinesis of the inferolateral wall with an ejection fraction of about 35%. He was advised to have cardiac catheterization by Dr. Piedra. His creatinine is within normal limits. He is being treated for CHF also CONSENT:I have discussed the risks, benefits and alternative therapies for the above-mentioned procedure and for both sedation/analgesia as well as necessary blood product administration, if indicated, as they pertain to this patient. The patient has indicated understanding and acceptance of the risks and procedures discussed. PROCEDURE: Patient was brought to the lab in a fasting state. Patient was given some IV sedation. The right wrist is infiltrated with lidocaine and right radial artery was entered using Seldinger technique. A 6-[place] catheter was left in place and selective coronary arteriography was performed. Patient tolerated the procedure well. No immediate complications were noted and patient is waiting to be evaluated by interventionalist for possible intervention Conscious Sedation: Versed 1mg Fentanyl 25 g Duration 25minutes HEMODYNAMICS: The aortic pressure is 140/80. The left ankle end-diastolic pressure is 15-20. No gradient across the aortic valve SELECTIVE CORONARY ARTERIOGRAPHY: LEFT MAIN: Normal length and free of occlusive disease THE LEFT ANTERIOR DESCENDING CORONARY ARTERY:. Good caliber vessel with a long significant stenosis involving the mid LAD with areas of 80-85% stenosis THE LEFT CIRCUMFLEX AND IS CORONARY ARTERY: Moderate caliber vessel giving rise a moderate caliber OM branch. There is diffuse disease in the circumflex system without any critical lesions THE RIGHT CORONARY ARTERY: Is a dominant vessel which has a significant proximal lesion with 80% stenosis followed by another 90% in midportion and totally occluded distally. There are collaterals from the left to the right LEFT VENTRICULOGRAPHY: Not performed FINAL IMPRESSION:. 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 Significant lesion in mid LAD PLAN:. Continue maximal therapy. Evaluate for possible intervention regarding RCA and LAD lesions PROGNOSIS: Guarded
[2020-10-23] MEDS: glipiZIDE 5 MG TAB PO SCH ×2 (11:17→19:52)
[2020-10-23] MEDS: metFORMIN 500 MG TAB PO SCH ×2 (11:18→19:03)
[2020-10-23] MEDS ORDERED: IOPAMIDOL-370 125ML BTL INJ ONE (11:41)
[2020-10-23] MEDS ORDERED: CLOPIDOGREL 75 MG TAB ONE (12:01)
[2020-10-23] MEDS ORDERED: CLOPIDOGREL 75 MG TAB PO ONE ×2 (12:02)
[2020-10-23] MEDS ORDERED: NITROGLYCERIN 1000MCG/10ML SYRINGE INTRACORON ONE (12:13)
[2020-10-23] MEDS ORDERED: IOPAMIDOL-370 100ML BTL INJ ONE (12:14)
[2020-10-23] MEDS ORDERED: NITROGLYCERIN SL TABS 0.4 MG TAB SUBLINGUAL ONE ×2 (12:26→12:29)
[2020-10-23] MEDS ORDERED: SODIUM CHLORIDE 0.9% 1,000 ML IV SCH (12:30)
[2020-10-23 12:54] LABS: Glucose,Whole Blood 137 mg/dL (75-99)
--- NOTE | 2020-10-23 12:55 | PTCA ---
PERCUTANEOUSTRANS CORORONARY ANGIOGRAPHY DATE OF SERVICE: 10/23/2020. PROCEDURE: PTCA and stenting of proximal RCA. PERFORMED BY: Dr. Inocencio Guerra. ANESTHESIA: Moderate conscious sedation time was 51 minutes. Patient was administered Versed and fentanyl. Oxygen saturation, hemodynamics and EKG were monitored closely. CLINICAL INFORMATION: Mr. Guveara is a 70-year-old gentleman who has a history of chronic atrial fibrillation, hypertension, hyperlipidemia, came into the hospital with congestive heart failure, had runs of nonsustained VT, was seen by Dr. Piedra and cardiac cath performed by Dr. Liao, which revealed total occlusion of RCA in the mid/distal portion with a 95% proximal lesion. Distal RCA and its branches were collateralized from the left system. The LAD had a moderate noncritical disease is diffuse disease. The distal LAD was diffusely diseased. Circumflex was nondominant but has no significant lesions. PROCEDURE NOTE: The existing 6-German introducer in the right radial artery was used to perform procedure. I used an AL 0.75 guide catheter to cannulate the right coronary artery. A combination of a Super cross catheter and a long run-through wire was used. I crossed the proximal lesion but could not cross the distal lesion. I also switched over to a Whisper wire with a J-tip without success. I dilated the proximal lesion with a 2.0 NC Trek balloon and after this predilatation I proceeded to deploy a 2.0 caliber 12 mm long norbert stent and postdilated with a 2.5 12 mm NC Trek balloon. The distal lesion could not be crossed. There was a [employer] after the distal occlusion. The proximal lesion had an excellent result, but the distal flow was not much and there was good collateralization from the left system. The details of the procedure and results were discussed with the patient. There was no family available. I also spoke to Dr. Piedra. The sheath was taken out and TR band applied as per protocol. Saturation of the fingers of the right hand was 98%. He was sent to the room in a stable condition. Excellent angiographic result without complication was achieved of the the proximal lesion. The distal lesion could not be crossed and it was a chronic total occlusion. I explained to the patient. MMODL / IJN: [id number] /
[2020-10-23] MEDS: OXYBUTYNIN XL 5 MG TAB.ER.24 PO SCH (13:45)
[2020-10-23] MEDS: FERROUS SULFATE 325 MG TAB PO SCH (13:45)
[2020-10-23] MEDS: lisinopriL 5 MG TAB PO SCH (13:45)
[2020-10-23] MEDS: SPIRONOLACTONE 25 MG TAB PO SCH (13:45)
[2020-10-23] MEDS: LORATADINE 10 MG TAB PO SCH (13:45)
[2020-10-23] MEDS: allopurinoL 100 MG TAB PO SCH (13:45)
[2020-10-23] MEDS: TAMSULOSIN 0.4 MG CAP.ER.24H PO SCH (13:45)
[2020-10-23] MEDS: cloNIDine HCL 0.2 MG TAB PO SCH (13:45)
[2020-10-23] MEDS: METOPROLOL TARTRATE 50 MG TAB PO SCH (13:46)
[2020-10-23] MEDS: FUROSEMIDE 10 MG/ML 4 ML VIAL IV SCH (13:46)
--- NOTE | 2020-10-23 16:44 | P.PN ---
Subjective Progress Note Date: 10/23/20 This is a 70-year-old male who was recently admitted with increasing shortness of breath over the last few days and progressively getting worse. Patient being closely followed by cardiology and underwent 2-D echo showing moderate left concentric ventricular hypertrophy with overall LV systolic function is moderately impaired with an EF of 35-40% with mild aortic valve sclerosis and a trace amount of aortic regurgitation in the mitral valve leaflets are mildly thickened with moderate mitral regurgitation present in mild to moderate tricuspid regurgitation present with severe pulmonary hypertension noted. Patient is continued on IV Lasix for diuresis and will continue at this time. Patient also noted to have some lower extremity edema and abdominal discomfort. Patient was found to have an acute urinary tract infection present on admission and started on ceftriaxone and will continue at this time. Patient underwent abdominal ultrasound showing hepatomegaly with nonspecific pattern of liver that can be seen with hepatitis or diffuse hepatocellular disease that is compatible with steatosis with 3 mm gallstone and CBD within normal limits. Patient was continued on oral anticoagulant although will hold Eliquis and place patient on IV heparin and discussion is being had about possible cardiac catheterization tomorrow with cardiology. White blood count is stable at 7.5 and hemoglobin is 14.0, sodium is 140 with a potassium of 3.3 and will replace, current creatinine is 0.95. Patient is also being started on Aldactone. 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 Urine culture is finalized showing normal mel. White blood count is normal at 6.5 and hemoglobin is stable at 13.0, sodium is 139 with a potassium of 3.5 and current creatinine is 1.12. Patient will continue on aspirin and Plavix along with statin and we'll transition to oral Lasix for continued lower extremity edema. Cardiology is following closely. Review of systems: Constitutional: No reports of fatigue, fever, or chills Cardiovascular: No reports of chest pain or palpitations Respiratory: Reports mild shortness of breath GI: No reports of nausea, vomiting, or diarrhea : No reports of dysuria or retention Neurovascular: Reports generalized weakness and lower extremity swelling All medications have been reviewed Active Medications Hydrocodone Bitart/Acetaminophen (Hydrocodone/Apap 5-325mg 1 Each Tab) 1 each PO Q6HR PRN PRN Reason: Pain Allopurinol (Allopurinol 100 Mg Tab) 100 mg PO DAILY [facility] Last Admin: 10/23/20 13:45 Dose: 100 mg Documented by: Alprazolam (Alprazolam 0.25 Mg Tab) 0.25 mg PO Q6HR PRN PRN Reason: Mild Anxiety Alprazolam (Alprazolam 0.5 Mg Tab) 0.5 mg PO Q6HR PRN PRN Reason: Moderate Anxiety Aspirin (Aspirin 81 Mg) 81 mg PO DAILY [facility] Atorvastatin Calcium (Atorvastatin 80 Mg Tab) 80 mg PO DAILY [facility] Clonidine (Clonidine Hcl 0.2 Mg Tab) 0.2 mg PO DAILY [facility] Last Admin: 10/23/20 13:45 Dose: 0.2 mg Documented by: Clopidogrel Bisulfate (Clopidogrel 75 Mg Tab) 75 mg PO DAILY [facility] Ergocalciferol (Ergocalciferol 1,250 Mcg (50,000 Iu) Capsule) 1,250 mcg PO Q7D [facility] Last Admin: 10/22/20 08:59 Dose: 1,250 mcg Documented by: Ferrous Sulfate (Ferrous Sulfate 325 Mg Tab) 325 mg PO DAILY [facility] Last Admin: 10/23/20 13:45 Dose: 325 mg Documented by: Furosemide (Furosemide 40 Mg Tab) 40 mg PO BID@0900,1600 [facility] Glipizide (Glipizide 5 Mg Tab) 5 mg PO BID [facility] Last Admin: 10/23/20 11:17 Dose: Not Given Documented by: Heparin Sodium (Porcine) (Heparin Sodium 1,000 Un/Ml (10ml Vl)) 0 unit IV PER PROTOCOL PRN; Protocol PRN Reason: Low PTT Last Admin: 10/22/20 17:21 Dose: 4,000 unit Documented by: Ceftriaxone Sodium 1 gm/ (Sodium Chloride) 50 mls @ 100 mls/hr IVPB Q24HR [facility] Last Admin: 10/23/20 13:46 Dose: 100 mls/hr Documented by: Heparin Sodium (Porcine) 10, (000 unit/ Sodium Chloride) 1,001 mls @ 999 mls/hr IRRIGATION ONCE PRN PRN Reason: INTRA-OP Stop: 10/23/20 23:00 Heparin Sodium (Porcine) 2,500 (unit/ Sodium Chloride) 250.5 mls @ 250 mls/hr IRRIGATION ONCE PRN PRN Reason: INTRA-OP Stop: 10/23/20 23:00 Sodium Chloride (Saline 0.9%) 1,000 mls @ 75 mls/hr IV .[id number] [facility] Stop: 10/24/20 00:31 Lisinopril (Lisinopril 5 Mg Tab) 5 mg PO DAILY [facility] Last Admin: 10/23/20 13:45 Dose: 5 mg Documented by: Loratadine (Loratadine 10 Mg Tab) 10 mg PO DAILY [facility] Last Admin: 10/23/20 13:45 Dose: 10 mg Documented by: Metformin HCl (Metformin 500 Mg Tab) 500 mg PO BID [facility] Last Admin: 10/23/20 11:18 Dose: Not Given Documented by: Metoprolol Tartrate (Metoprolol Tartrate 25 Mg Tab) 75 mg PO BID [facility] Naloxone HCl (Naloxone 0.4 Mg/Ml 1 Ml Vial) 0.2 mg IV Q2M PRN PRN Reason: Opioid Reversal Nitroglycerin (Nitroglycerin Sl Tabs 0.4 Mg Tab) 0.4 mg SUBLINGUAL Q5M PRN PRN Reason: Chest Pain Oxybutynin Chloride (Oxybutynin Xl 5 Mg Tab.Er.24) 5 mg PO DAILY [facility] Last Admin: 10/23/20 13:45 Dose: 5 mg Documented by: Risperidone (Risperidone 0.5 Mg Tab) 0.5 mg PO [facility] Last Admin: 10/22/20 20:32 Dose: 0.5 mg Documented by: Sertraline HCl (Sertraline 50 Mg Tab) 50 mg PO HS [facility] Last Admin: 10/22/20 20:32 Dose: 50 mg Documented by: Spironolactone (Spironolactone 25 Mg Tab) 25 mg PO DAILY [facility] Last Admin: 10/23/20 13:45 Dose: 25 mg Documented by: Tamsulosin HCl (Tamsulosin 0.4 Mg Cap.Er.24h) 0.4 mg PO DAILY [facility] Last Admin: 10/23/20 13:45 Dose: 0.4 mg Documented by: Objective - Vital Signs Vital signs: Vital Signs Temp 97.5 F L 10/23/20 08:00 Pulse 85 10/23/20 03:54 Resp 18 10/23/20 08:00 BP 145/101 10/23/20 08:00 Pulse Ox 98 10/23/20 08:00 Intake & Output 10/22/20 10/23/20 10/23/20 18:59 06:59 18:59 Intake Total 309.5 706.202 250 Output Total 910 1000 Balance -600.5 -293.798 250 Weight 93.4 kg Intake: IV 250 Intake, IV Titration 69.5 166.202 Amount Heparin Sod,Pork in 0.45% 69.5 166.202 NaCl 25,000 unit In 0.45 % NaCl 1 250ml.bag @ 11. 299 UNITS/KG/HR 10 mls/hr IV .Q24H [facility] Rx#: [id number] Oral 240 540 0 Output: Urine 910 1000 Other: Voiding Method Toilet Toilet Toilet Urinal Urinal Urinal Diaper Diaper # Voids 1 1 # Bowel Movements 150 0 - Exam Gen: This is a 70-year-old male lying in bed awake, alert and oriented 3, well- developed, well-nourished. Temp is 97.5 F, pulse is 85, respirations are 18, blood pressure is 145/101, oxygen saturation is 98% on 2 L via nasal cannula. HEENT: Head is atraumatic, normocephalic. Pupils equal, round. Sclerae is anicteric. NECK: Supple. No JVD. No lymphadenopathy. No thyromegaly. LUNGS: Diminished breath sounds at the bases with some scattered rhonchi and crackles noted. No intercostal retractions. HEART: S1, S2 are muffled ABDOMEN: Soft. Obese. Bowel sounds are present. No masses. No tenderness. EXTREMITIES: No pedal edema. No calf tenderness. 1+ pitting edema to bilateral lower extremities NEUROLOGICAL: Patient is awake, alert and oriented x3. No focal deficits. - Labs CBC & Chem 7: 10/23/20 08:40 10/23/20 08:40 Labs: Abnormal Lab Results - Last 24 Hours (Table) 10/22/20 10/22/20 10/22/20 Range/Units 09:52 20:18 23:57 RBC (4.30-5.90) m/uL RDW (11.5-15.5) % Lymphocytes # (1.0-4.8) k/uL APTT 48.4 H (22.0-30.0) sec BUN (9-20) mg/dL Glucose (74-99) mg/dL POC Glucose (mg/dL) 129 H (75-99) mg/dL HDL Cholesterol 33.0 L (40.0-60.0) mg/dL 10/23/20 10/23/20 10/23/20 Range/Units 06:05 08:40 08:40 RBC 4.07 L (4.30-5.90) m/uL RDW 17.3 H (11.5-15.5) % Lymphocytes # 0.9 L (1.0-4.8) k/uL APTT (22.0-30.0) sec BUN 22 H (9-20) mg/dL Glucose 150 H (74-99) mg/dL POC Glucose (mg/dL) 121 H (75-99) mg/dL HDL Cholesterol (40.0-60.0) mg/dL 10/23/20 Range/Units 08:40 RBC (4.30-5.90) m/uL RDW (11.5-15.5) % Lymphocytes # (1.0-4.8) k/uL APTT 44.0 H (22.0-30.0) sec BUN (9-20) mg/dL Glucose (74-99) mg/dL POC Glucose (mg/dL) (75-99) mg/dL HDL Cholesterol (40.0-60.0) mg/dL Microbiology - Last 24 Hours (Table) 10/21/20 12:00 Urine Culture - Final Urine,Voided Assessment and Plan Assessment: Congestive heart failure acute exacerbation, acute on chronic systolic dysfunction with an EF of 35-40% Status post cardiac catheterization with stenting to the proximal RCA Atrial fibrillation with fast ventricular rate Acute urinary tract infection, present on admission Elevated ALT possibly hepatitis Mild lymphopenia Elevated globulin, rule out chronic liver disease History of atrial fibrillation history of congestive heart failure diabetes mellitus type 2 Hypertension Hyperlipidemia History of gout History of degenerative joint disease history of anxiety, depression remote history of nicotine dependence obesity with a body mass index of 33.2 Full code Commendations and discussion: Recommend to continue with current medications and patient is maintained on oral Lasix and will continue along with fluid restrictions of 1200 mL's per day and cardiology following closely. Patient underwent 2-D echo as mentioned previously with an impaired LV function and EF of 35-40%. Patient has continued lower extremity swelling and will continue with diuresis. Patient is maintained on IV ceftriaxone for possible acute urinary tract infection and will continue to monitor closely. Urine culture finalized showing normal mel. Ultrasound of the abdomen showing hepatomegaly and a 3 mm gallstone. Cardiology following and a underwent cardiac catheterization with stenting to the proximal RCA and will continue to monitor closely. Will discuss with cardiology about treatment plan moving forward . Patient will continue on aspirin and Plavix as well. Due to multiple complex medical issues, prognosis is guarded. Will have PT/OT therapy evaluate the patient. Possible discharge in 24-48 hours.
[2020-10-23 16:59] LABS: Glucose,Whole Blood 151 mg/dL (75-99)
[2020-10-23] MEDS: HYDROcodone/APAP 5-325MG 1 EACH TAB PO PRN (17:52)
[2020-10-23] MEDS: METOPROLOL TARTRATE 25 MG TAB PO SCH (19:52)
[2020-10-23] MEDS: SERTRALINE 50 MG TAB PO SCH (19:52)
[2020-10-23] MEDS: risperiDONE 0.5 MG TAB PO SCH (19:52)
[2020-10-23 19:58] LABS: Glucose,Whole Blood 220 mg/dL (75-99)
[2020-10-24 06:22] LABS: Glucose,Whole Blood 125 mg/dL (75-99)
[2020-10-24] MEDS: glipiZIDE 5 MG TAB PO SCH ×2 (09:41→20:06)
[2020-10-24] MEDS: TAMSULOSIN 0.4 MG CAP.ER.24H PO SCH (09:41)
[2020-10-24] MEDS: ATORVASTATIN 80 MG TAB PO SCH (09:41)
[2020-10-24] MEDS: SPIRONOLACTONE 25 MG TAB PO SCH (09:42)
[2020-10-24] MEDS: OXYBUTYNIN XL 5 MG TAB.ER.24 PO SCH (09:42)
[2020-10-24] MEDS: LORATADINE 10 MG TAB PO SCH (09:42)
[2020-10-24] MEDS: FERROUS SULFATE 325 MG TAB PO SCH (09:42)
[2020-10-24] MEDS: CLOPIDOGREL 75 MG TAB PO SCH (09:42)
[2020-10-24] MEDS: ASPIRIN 81 MG PO SCH (09:42)
[2020-10-24] MEDS: cloNIDine HCL 0.2 MG TAB PO SCH (09:42)
[2020-10-24] MEDS: lisinopriL 5 MG TAB PO SCH (09:42)
[2020-10-24] MEDS: allopurinoL 100 MG TAB PO SCH (09:42)
[2020-10-24] MEDS: FUROSEMIDE 40 MG TAB PO SCH ×2 (09:42→17:29)
[2020-10-24] MEDS: METOPROLOL TARTRATE 25 MG TAB PO SCH (09:42)
[2020-10-24] MEDS: metFORMIN 500 MG TAB PO SCH ×2 (09:43→20:01)
[2020-10-24 09:52] LABS: African American GFR (CKD) >90 (>60 ml/min/1.73 sqM); Anion Gap 9 mmol/L; Blood Urea Nitrogen 18 mg/dL (9-20); Calcium 8.3 mg/dL (8.4-10.2); Carbon Dioxide 24 mmol/L (22-30); Chloride 106 mmol/L (98-107); Glucose 210 mg/dL (74-99); Non-African American GFR(CKD) 78 (>60 ml/min/1.73 sqM); Potassium 3.4 mmol/L (3.5-5.1); Sodium 139 mmol/L (137-145)
[2020-10-24] MEDS ORDERED: METOPROLOL TARTRATE 25 MG TAB PO STA (10:15)
[2020-10-24] MEDS ORDERED: HEPARIN SODIUM 1,000 UN/ML (10ML VL) IV PRN (10:19)
--- NOTE | 2020-10-24 11:13 | P.PN ---
Subjective HISTORY OF PRESENTING ILLNESS This is a pleasant 70-year-old occasion male past medical history significant for paroxysmal atrial fibrillation on long-term anticoagulation, hypertension, diabetes mellitus, dyslipidemia and heart failure unknown type. 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 He states he follows regularly at [facility] and they manage his medications. He has seen Dr. Grant in the past but he states it has been many many years. The patient denies ever having had a cardiac catheterization. We have been asked to see in consultation for shortness of breath. He states for the past few days he has noticed increasing shortness of breath and some intermittent palpitations. He denies chest pain, dizziness, nausea, vomiting or diaphoresis. He has been initiated on IV diuretics and states his breathing has improved since admission however not back to baseline. 10/24/2020 Pt seen and examined resting comfortably in bed in no acute distress. He denies chest pain, dizziness, shortness of breath or palpitations. He is complaining of pain to the right radial access site. Mildly tender at the site with no evidence of hematoma or bleeding. Blood pressure 158/114 heart rate 82 afebrile and maintaining oxygen saturation on nasal cannula. He underwent cardiac catheterization yesterday revealing a long lesion in the LAD approximately 80- 85%, RCA with stenosis of the proximal and distal portion, LM and circumflex free of significant stenosis. He underwent successful PCI of the proximal RCA, the distal lesion was not able to be crossed thought to be a chronic occlusion with collaterals from the left system. Laboratory data reviewed, sodium 139, potassium 3.4, creatinine 0.98. Currently maintained on dual anti-platelet therapy. Eliquis not yet resumed. He continues to be having runs of wide complex non-sustained ventricular tachycardia. PHYSICAL EXAMINATION CONSTITUTIONAL: No apparent distress. HEENT: Head is normocephalic. Pupils are equal, round. Sclerae anicteric. Mucous membranes of the mouth are moist. No JVD. No carotid bruit. CHEST EXAMINATION: Basilar rales, no wheezes or rhonchi. Diminished bilaterally. No chest wall tenderness is noted on palpation or with deep breathing. HEART EXAMINATION: Regular rate and rhythm. S1, S2 heard. No murmurs, gallops or rub. EXTREMITIES: 2+ peripheral pulses, trace bilateral lower extremity pitting edema and no calf tenderness. Right radial access site soft, tender, no ecchymosis or hematoma and strong distal pulse. ASSESSMENT Acute systolic heart failure Nonsustained ventricular tachycardia Coronary artery disease s/p PCI RCA with disease in the LAD Hypertension Dyslipidemia Paroxysmal atrial fibrillation on long-term anticoagulation Diabetes mellitus Pulmonary hypertension PLAN Resume heparin infusion for thromboembolic protection due to afib. Begin to wean down clonidine with plans to completely discontinue to be able to maximize his beta blockers and QUIRINO. Increase lopressor to 100 mg [address]ID. Discussed with Dr. Guerra, plan for FFR of the LAD lesion tomorrow. NPO after midnight. He will require LifeVest placement at discharge to prevent sudden cardiac secondary to persistent runs of VT with EF of 35%. NPO after midnight. Further recommendations to follow based on clinical course. Nurse Practitioner note has been reviewed, I agree with a documented findings and plan of care. Patient was seen and examined. Objective - Vital Signs Vital signs: Vital Signs Temp 97.4 F L 10/24/20 08:00 Pulse 82 10/24/20 08:00 Resp 18 10/24/20 08:00 BP 158/114 10/24/20 08:00 Pulse Ox 97 10/24/20 08:00 Intake & Output 10/23/20 10/24/20 10/24/20 18:59 06:59 18:59 Intake Total 730 540 240 Output Total 300 250 300 Balance 430 290 -60 Weight 97.5 kg Intake: IV 250 Oral 480 540 240 Output: Urine 300 250 300 Other: Voiding Method Toilet Toilet Urinal Urinal Diaper Diaper # Voids 2 - Labs CBC & Chem 7: 10/23/20 08:40 10/24/20 09:02 Labs: Abnormal Lab Results - Last 24 Hours (Table) 10/23/20 10/23/20 10/23/20 Range/Units 12:52 16:58 19:56 Potassium (3.5-5.1) mmol/L Glucose (74-99) mg/dL POC Glucose (mg/dL) 137 H 151 H 220 H (75-99) mg/dL Calcium (8.4-10.2) mg/dL 10/24/20 10/24/20 Range/Units 06:21 09:02 Potassium 3.4 L (3.5-5.1) mmol/L Glucose 210 H (74-99) mg/dL POC Glucose (mg/dL) 125 H (75-99) mg/dL Calcium 8.3 L (8.4-10.2) mg/dL
[2020-10-24 11:25] LABS: Anisocytosis Slight; Basophils % (A) 0 %; Eosinophils # (A) 0.2 k/uL (0-0.7); Eosinophils % (A) 2 %; HCT 38.7 % (39.0-53.0); HGB 12.5 gm/dL (13.0-17.5); Hypochromasia Moderate; Lymphocytes # (A) 0.6 k/uL (1.0-4.8); Lymphocytes % (A) 7 %; MCH 31.9 pg (25.0-35.0); MCHC 32.4 g/dL (31.0-37.0); MCV 98.5 fL (80.0-100.0); Macrocytosis Slight; Mean Platelet Volume 7.6; Monocytes # (A) 0.5 k/uL (0-1.0); Monocytes % (A) 5 %; Neutrophils # (A) 7.2 k/uL (1.3-7.7); Neutrophils % (A) 84 %; Platelet Count 281 k/uL (150-450); Poikilocytosis Moderate; RBC 3.92 m/uL (4.30-5.90); RDW 17.2 % (11.5-15.5); WBC 8.6 k/uL (3.8-10.6)
[2020-10-24 11:30] LABS: Partial Thromboplastin Time 24.2 sec (22.0-30.0); Prothrombin Time 10.5 sec (9.0-12.0)
[2020-10-24 11:56] LABS: Glucose,Whole Blood 207 mg/dL (75-99)
[2020-10-24] MEDS: HEPARIN SOD,PORK IN 0.45% NACL 25,000 UNIT in 0.45% NACL 1 250ML.BAG IV SCH (12:41)
[2020-10-24 16:57] LABS: Glucose,Whole Blood 127 mg/dL (75-99)
[2020-10-24] MEDS: HEPARIN SODIUM 1,000 UN/ML (10ML VL) IV PRN (17:36)
[2020-10-24 20:02] LABS: Glucose,Whole Blood 116 mg/dL (75-99)
[2020-10-24] MEDS: METOPROLOL TARTRATE 50 MG TAB PO SCH (20:06)
[2020-10-24] MEDS: risperiDONE 0.5 MG TAB PO SCH (20:06)
[2020-10-24] MEDS: SERTRALINE 50 MG TAB PO SCH (20:06)
[2020-10-24] MEDS ORDERED: hydrALAZINE HCL 20 MG/ML 1 ML VIAL IVP PRN (21:43)
--- NOTE | 2020-10-25 04:27 | P.PN ---
Subjective Progress Note Date: 10/24/20 This is a 70-year-old male who was recently admitted with increasing shortness of breath over the last few days and progressively getting worse. Patient being closely followed by cardiology and underwent 2-D echo showing moderate left concentric ventricular hypertrophy with overall LV systolic function is moderately impaired with an EF of 35-40% with mild aortic valve sclerosis and a trace amount of aortic regurgitation in the mitral valve leaflets are mildly thickened with moderate mitral regurgitation present in mild to moderate tricuspid regurgitation present with severe pulmonary hypertension noted. Patient is continued on IV Lasix for diuresis and will continue at this time. Patient also noted to have some lower extremity edema and abdominal discomfort. Patient was found to have an acute urinary tract infection present on admission and started on ceftriaxone and will continue at this time. Patient underwent abdominal ultrasound showing hepatomegaly with nonspecific pattern of liver that can be seen with hepatitis or diffuse hepatocellular disease that is compatible with steatosis with 3 mm gallstone and CBD within normal limits. Patient was continued on oral anticoagulant although will hold Eliquis and place patient on IV heparin and discussion is being had about possible cardiac catheterization tomorrow with cardiology. White blood count is stable at 7.5 and hemoglobin is 14.0, sodium is 140 with a potassium of 3.3 and will replace, current creatinine is 0.95. Patient is also being started on Aldactone. 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 Urine culture is finalized showing normal mel. White blood count is normal at 6.5 and hemoglobin is stable at 13.0, sodium is 139 with a potassium of 3.5 and current creatinine is 1.12. Patient will continue on aspirin and Plavix along with statin and we'll transition to oral Lasix for continued lower extremity edema. Cardiology is following closely. 10/24/2020 Patient is seen and evaluated in follow up this morning and continues on IV heparin and is being closely monitored. Patient is on 2L of oxygen with oxygen saturation of 97% and discussed with nursing staff about weaning FI02 as tolerated as he does not wear oxygen in the outpatient setting. Patient denies any shortness of breath. Patient is being scheduled to undergo stenting of the LAD and being fitted for possible life vest on discharge as he is having nonsustained vtach on the monitor. Case management working on Lifevest. Continue with telemetry monitoring. Patient potassium is 3.4 and will replace per protocol and repeat am labs. Lower extremity edema is improving and transitioned to oral lasix. Review of systems: Constitutional: No reports of fatigue, fever, or chills Cardiovascular: No reports of chest pain or palpitations Respiratory:no reports of shortness of breath GI: No reports of nausea, vomiting, or diarrhea : No reports of dysuria or retention Neurovascular: Reports generalized weakness and lower extremity swelling that has improved All medications have been reviewed Active Medications Hydrocodone Bitart/Acetaminophen (Hydrocodone/Apap 5-325mg 1 Each Tab) 1 each PO Q6HR PRN PRN Reason: Pain Last Admin: 10/23/20 17:52 Dose: 1 each Documented by: Allopurinol (Allopurinol 100 Mg Tab) 100 mg PO DAILY [facility] Last Admin: 10/24/20 09:42 Dose: 100 mg Documented by: Alprazolam (Alprazolam 0.25 Mg Tab) 0.25 mg PO Q6HR PRN PRN Reason: Mild Anxiety Alprazolam (Alprazolam 0.5 Mg Tab) 0.5 mg PO Q6HR PRN PRN Reason: Moderate Anxiety Aspirin (Aspirin 81 Mg) 81 mg PO DAILY [facility] Last Admin: 10/24/20 09:42 Dose: 81 mg Documented by: Atorvastatin Calcium (Atorvastatin 80 Mg Tab) 80 mg PO DAILY [facility] Last Admin: 10/24/20 09:41 Dose: 80 mg Documented by: Clonidine (Clonidine Hcl 0.1 Mg Tab) 0.1 mg PO DAILY [facility] Clopidogrel Bisulfate (Clopidogrel 75 Mg Tab) 75 mg PO DAILY [facility] Last Admin: 10/24/20 09:42 Dose: 75 mg Documented by: Ergocalciferol (Ergocalciferol 1,250 Mcg (50,000 Iu) Capsule) 1,250 mcg PO Q7D [facility] Last Admin: 10/22/20 08:59 Dose: 1,250 mcg Documented by: Ferrous Sulfate (Ferrous Sulfate 325 Mg Tab) 325 mg PO DAILY [facility] Last Admin: 10/24/20 09:42 Dose: 325 mg Documented by: Furosemide (Furosemide 40 Mg Tab) 40 mg PO BID@0900,1600 [facility] Last Admin: 10/24/20 09:42 Dose: 40 mg Documented by: Glipizide (Glipizide 5 Mg Tab) 5 mg PO BID [facility] Last Admin: 10/24/20 09:41 Dose: 5 mg Documented by: Heparin Sodium (Porcine) (Heparin Sodium 1,000 Un/Ml (10ml Vl)) 0 unit IV PER PROTOCOL PRN; Protocol PRN Reason: Low PTT Last Admin: 10/22/20 17:21 Dose: 4,000 unit Documented by: Heparin Sodium (Porcine) (Heparin Sodium 1,000 Un/Ml (10ml Vl)) 0 unit IV PER PROTOCOL PRN; Protocol PRN Reason: Low PTT Ceftriaxone Sodium 1 gm/ (Sodium Chloride) 50 mls @ 100 mls/hr IVPB Q24HR [facility] Last Admin: 10/24/20 09:42 Dose: 100 mls/hr Documented by: Heparin Sodium/Sodium Chloride (25,000 unit/ Sodium Chloride) 250 mls @ 10 mls/hr IV .Q24H [facility]; Protocol Last Admin: 10/24/20 12:41 Dose: 10.256 units/kg/hr, 10 mls/hr Documented by: Sodium Chloride 1,000 ml/ IV (Solution) 1,000 mls @ 97.5 mls/hr IV .[id number] ONE Stop: 10/25/20 15:15 Heparin Sodium (Porcine) 10, (000 unit/ Sodium Chloride) 1,001 mls @ 999 mls/hr IRRIGATION ONCE PRN PRN Reason: INTRA-OP Stop: 10/25/20 23:00 Heparin Sodium (Porcine) 2,500 (unit/ Sodium Chloride) 250.5 mls @ 250 mls/hr I RRIGATION ONCE PRN PRN Reason: INTRA-OP Stop: 10/25/20 23:00 Lisinopril (Lisinopril 5 Mg Tab) 5 mg PO DAILY [facility] Last Admin: 10/24/20 09:42 Dose: 5 mg Documented by: Loratadine (Loratadine 10 Mg Tab) 10 mg PO DAILY [facility] Last Admin: 10/24/20 09:42 Dose: 10 mg Documented by: Metformin HCl (Metformin 500 Mg Tab) 500 mg PO BID [facility] Last Admin: 10/24/20 09:43 Dose: Not Given Documented by: Metoprolol Tartrate (Metoprolol Tartrate 50 Mg Tab) 100 mg PO BID [facility] Naloxone HCl (Naloxone 0.4 Mg/Ml 1 Ml Vial) 0.2 mg IV Q2M PRN PRN Reason: Opioid Reversal Nitroglycerin (Nitroglycerin Sl Tabs 0.4 Mg Tab) 0.4 mg SUBLINGUAL Q5M PRN PRN Reason: Chest Pain Oxybutynin Chloride (Oxybutynin Xl 5 Mg Tab.Er.24) 5 mg PO DAILY [facility] Last Admin: 10/24/20 09:42 Dose: 5 mg Documented by: Risperidone (Risperidone 0.5 Mg Tab) 0.5 mg PO [facility] Last Admin: 10/23/20 19:52 Dose: 0.5 mg Documented by: Sertraline HCl (Sertraline 50 Mg Tab) 50 mg PO [facility] Last Admin: 10/23/20 19:52 Dose: 50 mg Documented by: Spironolactone (Spironolactone 25 Mg Tab) 25 mg PO DAILY [facility] Last Admin: 10/24/20 09:42 Dose: 25 mg Documented by: Tamsulosin HCl (Tamsulosin 0.4 Mg Cap.Er.24h) 0.4 mg PO DAILY [facility] Last Admin: 10/24/20 09:41 Dose: 0.4 mg Documented by: Objective - Vital Signs Vital signs: Vital Signs Temp 98 F 10/23/20 23:05 Pulse 88 10/24/20 04:15 Resp 18 10/24/20 04:15 BP 140/93 10/24/20 04:15 Pulse Ox 97 10/24/20 04:15 Intake & Output 10/23/20 10/24/20 10/24/20 18:59 06:59 18:59 Intake Total 730 540 Output Total 300 250 Balance 430 290 Weight 97.5 kg Intake: IV 250 Oral 480 540 Output: Urine 300 250 Other: Voiding Method Toilet Toilet Urinal Urinal Diaper Diaper # Voids 2 - Exam Gen: This is a 70-year-old male lying in bed awake, alert and oriented 3, well- developed, well-nourished. Temp is 97.4 F, pulse is 82, respirations are 18, blood pressure is 158/114, oxygen saturation is 97% on room air. HEENT: Head is atraumatic, normocephalic. Pupils equal, round. Sclerae is a nicteric. NECK: Supple. No JVD. No lymphadenopathy. No thyromegaly. LUNGS: Diminished breath sounds at the bases with some scattered rhonchi and crackles noted. No intercostal retractions. HEART: S1, S2 are muffled ABDOMEN: Soft. Obese. Bowel sounds are present. No masses. No tenderness. EXTREMITIES: No pedal edema. No calf tenderness. Trace pitting edema to bilateral lower extremities, that is improving NEUROLOGICAL: Patient is awake, alert and oriented x3. No focal deficits. - Labs CBC & Chem 7: 10/24/20 11:04 10/24/20 09:02 Labs: Abnormal Lab Results - Last 24 Hours (Table) 10/23/20 10/23/20 10/23/20 Range/Units 08:40 08:40 08:40 RBC 4.07 L (4.30-5.90) m/uL RDW 17.3 H (11.5-15.5) % Lymphocytes # 0.9 L (1.0-4.8) k/uL APTT 44.0 H (22.0-30.0) sec BUN 22 H (9-20) mg/dL Glucose 150 H (74-99) mg/dL POC Glucose (mg/dL) (75-99) mg/dL 10/23/20 10/23/20 10/23/20 Range/Units 12:52 16:58 19:56 RBC (4.30-5.90) m/uL RDW (11.5-15.5) % Lymphocytes # (1.0-4.8) k/uL APTT (22.0-30.0) sec BUN (9-20) mg/dL Glucose (74-99) mg/dL POC Glucose (mg/dL) 137 H 151 H 220 H (75-99) mg/dL 10/24/20 Range/Units 06:21 RBC (4.30-5.90) m/uL RDW (11.5-15.5) % Lymphocytes # (1.0-4.8) k/uL APTT (22.0-30.0) sec BUN (9-20) mg/dL Glucose (74-99) mg/dL POC Glucose (mg/dL) 125 H (75-99) mg/dL Assessment and Plan Assessment: Congestive heart failure acute exacerbation, acute on chronic systolic dysfunction with an EF of 35-40% Status post cardiac catheterization with stenting to the proximal RCA non-sustained ventricular tachycardia, being fitted for lifevest Atrial fibrillation with fast ventricular rate Acute urinary tract infection, present on admission Elevated ALT possibly hepatitis Mild lymphopenia Elevated globulin, rule out chronic liver disease History of atrial fibrillation history of congestive heart failure diabetes mellitus type 2 Hypertension Hyperlipidemia History of gout History of degenerative joint disease history of anxiety, depression remote history of nicotine dependence obesity with a body mass index of 33.2 Full code Commendations and discussion: Recommend to continue with current medications and patient is maintained on oral Lasix and will continue along with fluid restrictions of 1200 mL's per day and cardiology following closely. Creatinine improving and will repeat labs and continue to monitor. Potassium is 3.4 today and will replace per protocol. Cardiology following and a underwent cardiac catheterization with stenting to the proximal RCA yesterday and planning further intervention of the LAD and patient will be NPO at midnight. Continue with IV heparin for now and will continue to monitor closely. Patient will continue on aspirin and Plavix as well. Due to multiple complex medical issues, prognosis is guarded. Will have PT/OT therapy evaluate the patient once more stable. Lifevest being planned for discharge as patient is having non-sustained vtach on the monitor. Case management following and working on coverage of Lifevest.
[2020-10-25] MEDS ORDERED: SODIUM CHLORIDE 0.9% 1,000 ML in EMPTY BAG 1 BAG IV ONE (05:00)
[2020-10-25 05:48] LABS: Anisocytosis Slight; Basophils % (A) 0 %; Eosinophils # (A) 0.2 k/uL (0-0.7); Eosinophils % (A) 2 %; HCT 36.6 % (39.0-53.0); HGB 11.8 gm/dL (13.0-17.5); Hypochromasia Slight; Lymphocytes % (A) 13 %; MCH 31.5 pg (25.0-35.0); MCHC 32.2 g/dL (31.0-37.0); MCV 97.8 fL (80.0-100.0); Macrocytosis Slight; Mean Platelet Volume 7.4; Monocytes # (A) 0.4 k/uL (0-1.0); Monocytes % (A) 6 %; Neutrophils # (A) 5.5 k/uL (1.3-7.7); Neutrophils % (A) 77 %; Platelet Count 245 k/uL (150-450); Poikilocytosis Moderate; RBC 3.75 m/uL (4.30-5.90); RDW 17.1 % (11.5-15.5); WBC 7.1 k/uL (3.8-10.6)
[2020-10-25 05:54] LABS: Partial Thromboplastin Time 41.5 sec (22.0-30.0); Prothrombin Time 10.6 sec (9.0-12.0)
[2020-10-25] MEDS: cloNIDine HCL 0.1 MG TAB PO SCH (06:01)
[2020-10-25] MEDS: ASPIRIN 81 MG PO SCH (06:01)
[2020-10-25] MEDS: CLOPIDOGREL 75 MG TAB PO SCH (06:01)
[2020-10-25] MEDS: TAMSULOSIN 0.4 MG CAP.ER.24H PO SCH (06:01)
[2020-10-25] MEDS: lisinopriL 5 MG TAB PO SCH (06:01)
[2020-10-25] MEDS: METOPROLOL TARTRATE 50 MG TAB PO SCH (06:01)
[2020-10-25] MEDS: LORATADINE 10 MG TAB PO SCH (06:01)
[2020-10-25] MEDS: OXYBUTYNIN XL 5 MG TAB.ER.24 PO SCH (06:01)
[2020-10-25] MEDS: ATORVASTATIN 80 MG TAB PO SCH (06:02)
[2020-10-25] MEDS: allopurinoL 100 MG TAB PO SCH (06:02)
[2020-10-25] MEDS: FERROUS SULFATE 325 MG TAB PO SCH (06:02)
[2020-10-25 06:26] LABS: Glucose,Whole Blood 161 mg/dL (75-99)
[2020-10-25] MEDS ORDERED: HEPARIN SODIUM,PORCINE 2,500 UNIT in SODIUM CHLORIDE 0.9% 250 ML IRRIGATION PRN (07:00)
[2020-10-25] MEDS ORDERED: HEPARIN SODIUM,PORCINE 10,000 UNIT in SODIUM CHLORIDE 0.9% 1,000 ML IRRIGATION PRN (07:00)
[2020-10-25] MEDS ORDERED: IV FLUID CONTINUATION 1,000 ML IV ONE (07:05)
[2020-10-25 07:15] LABS: Appearance,Urine Clear (Clear); Bilirubin,Urine Negative (Negative); Blood,Urine Negative (Negative); Color,Urine Yellow; Glucose,Urine (UA) Negative (Negative); Ketones,Urine Negative (Negative); Leukocyte Esterase,Urine Trace (Negative); Mucus,Urine Rare /hpf; Nitrite,Urine Negative (Negative); Protein,Urine 2+ (Negative); RBC,Urine <1 /hpf (0-5); Specific Gravity,Urine 1.017 (1.001-1.035); Urobilinogen,Urine <2.0 mg/dL (<2.0); WBC,Urine 3 /hpf (0-5)
[2020-10-25] MEDS: MIDAZOLAM 2 MG/2 ML VIAL IV ONE ×2 (07:32→08:04)
[2020-10-25] MEDS ORDERED: LIDOCAINE 1% INJ 10MG/ML (20 ML MDV) SQ ONE (07:33)
[2020-10-25] MEDS: HEPARIN SODIUM 1,000 UN/ML (10ML VL) IV ONE ×2 (07:45→08:04)
[2020-10-25 07:58] LABS: Calcium 8.8 mg/dL (8.4-10.2)
[2020-10-25] MEDS: NITROGLYCERIN 1000MCG/10ML SYRINGE INTRACORON ONE ×2 (08:00→08:21)
[2020-10-25] MEDS ORDERED: IOPAMIDOL-370 100ML BTL INJ ONE ×2 (08:17→08:28)
[2020-10-25] MEDS ORDERED: CLOPIDOGREL 75 MG TAB PO ONE (08:28)
[2020-10-25] MEDS ORDERED: METOPROLOL TARTRATE 50 MG TAB PO STA (09:38)
[2020-10-25] MEDS ORDERED: lisinopriL 5 MG TAB PO ONE (09:45)
[2020-10-25] MEDS: SPIRONOLACTONE 25 MG TAB PO SCH (09:52)
[2020-10-25] MEDS: glipiZIDE 5 MG TAB PO SCH ×2 (09:53→20:21)
[2020-10-25] MEDS: metFORMIN 500 MG TAB PO SCH ×2 (09:53→20:11)
[2020-10-25] MEDS: FUROSEMIDE 40 MG TAB PO SCH ×2 (09:53→16:55)
[2020-10-25] MEDS: HEPARIN SOD,PORK IN 0.45% NACL 25,000 UNIT in 0.45% NACL 1 250ML.BAG IV SCH (11:48)
[2020-10-25 11:58] LABS: Glucose,Whole Blood 179 mg/dL (75-99)
[2020-10-25 16:58] LABS: Glucose,Whole Blood 175 mg/dL (75-99)
[2020-10-25 20:07] LABS: Glucose,Whole Blood 200 mg/dL (75-99)
[2020-10-25] MEDS: SERTRALINE 50 MG TAB PO SCH (20:21)
[2020-10-25] MEDS: INSULIN ASPART (NovoLOG) 100 UNIT/ML VIAL SQ SCH (20:21)
[2020-10-25] MEDS: lisinopriL 10 MG TAB PO SCH (20:21)
[2020-10-25] MEDS: risperiDONE 0.5 MG TAB PO SCH (20:21)
[2020-10-25] MEDS ORDERED: METOPROLOL TARTRATE 50 MG TAB PO SCH (21:00)
--- NOTE | 2020-10-25 21:42 | PTCA ---
PERCUTANEOUSTRANS CORORONARY ANGIOGRAPHY DATE OF SERVICE: 10/25/2020. PROCEDURE: 1. FFR/IFR assessment of mid LAD lesion. 2. PTCA and stenting of mid LAD with a drug-eluting stent. PERFORMED BY: Dr. Inocencio Guerra. Moderate conscious sedation time was 57 minutes. Patient was administered Versed. Oxygen saturation, hemodynamics and EKG were monitored closely. CLINICAL INFORMATION: Mr. RYANNE Guevara is a 70-year-old gentleman admitted to the hospital 4 days ago with congestive heart failure and ventricular tachycardia. Cardiac cath revealed a total occlusion of distal RCA with a lesion in the proximal RCA. I performed stenting of proximal RCA 48 hours ago and the distal RCA with a chronic total occlusion could not be opened up but was well collateralized from the left system. Dr. Piedra was concerned that the patient may have ischemia in the LAD territory given his recurrent ventricular ectopy and short runs of nonsustained VT and nondescript chest tightness. I therefore recommended after due discussion with him that we will perform an IFR of a moderate lesion in the mid LAD and if significant, will perform stenting. He was brought in after due discussion regarding risks, benefits, options and rationale. PROCEDURE NOTE: Under local anesthesia and strict aseptic precautions, a 6-Togolese introducer was placed in the right femoral artery. Using a JL3.5 guide catheter of 6-Togolese caliber, I cannulated the left coronary artery. I advanced a Verrata wire under fluoroscopic guidance the left it in the distal LAD. Prior to that, this wire was calibrated outside and also in the aorta, and after adequate calibration, the wire was used to cross the lesion and wire was kept in the distal LAD. An IFR assessment was performed and this was 0.83 and 0.84, suggesting that this was a significant mid LAD lesion which was a long area of narrowing with calcification, and a lesion that extended to just after the diagonal branch as well. I therefore recommended stenting and proceeded to perform this in the same setting. The patient received a total of 6000 units of heparin. Additional 1000 units was then given. ACT was 262. He was already on aspirin and Plavix. Additional 150 mg of Plavix was given. I advanced a run-through wire alongside the Verrata wire and kept it in the distal LAD. Predilatation was performed with a 2.5 caliber 15 mm long NC Trek balloon. I then deployed a 28 mm long 2.75 caliber Xience stent at 13 atmospheres. Patient did not have chest discomfort but had anterior ST-segment elevation. Excellent angiographic result was achieved without complication. The diagonal that was jailed had a very good flow without significant lesion. Results were discussed with the patient. There was no family available. The sheath was taken out and Angio-Seal device used to secure hemostasis. The patient was sent to the room in a stable condition. Excellent angiographic result was achieved. IFR suggested that the lesion was significant. Therefore a single 28 mm long 2.75 caliber drug-eluting Xience stent was deployed with excellent result. No complications. Excellent result. The patient was sent to the telemetry unit in a stable condition. No family was available to talk to. JERARDO / MARIA DEL ROSARIO: [id number] /
--- NOTE | 2020-10-26 02:22 | P.PN ---
Subjective Progress Note Date: 10/25/20 This is a 70-year-old male who was recently admitted with increasing shortness of breath over the last few days and progressively getting worse. Patient being closely followed by cardiology and underwent 2-D echo showing moderate left concentric ventricular hypertrophy with overall LV systolic function is moderately impaired with an EF of 35-40% with mild aortic valve sclerosis and a trace amount of aortic regurgitation in the mitral valve leaflets are mildly thickened with moderate mitral regurgitation present in mild to moderate tricuspid regurgitation present with severe pulmonary hypertension noted. Patient is continued on IV Lasix for diuresis and will continue at this time. Patient also noted to have some lower extremity edema and abdominal discomfort. Patient was found to have an acute urinary tract infection present on admission and started on ceftriaxone and will continue at this time. Patient underwent abdominal ultrasound showing hepatomegaly with nonspecific pattern of liver that can be seen with hepatitis or diffuse hepatocellular disease that is compatible with steatosis with 3 mm gallstone and CBD within normal limits. Patient was continued on oral anticoagulant although will hold Eliquis and place patient on IV heparin and discussion is being had about possible cardiac catheterization tomorrow with cardiology. White blood count is stable at 7.5 and hemoglobin is 14.0, sodium is 140 with a potassium of 3.3 and will replace, current creatinine is 0.95. Patient is also being started on Aldactone. 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 Urine culture is finalized showing normal mel. White blood count is normal at 6.5 and hemoglobin is stable at 13.0, sodium is 139 with a potassium of 3.5 and current creatinine is 1.12. Patient will continue on aspirin and Plavix along with statin and we'll transition to oral Lasix for continued lower extremity edema. Cardiology is following closely. 10/24/2020 Patient is seen and evaluated in follow up this morning and continues on IV heparin and is being closely monitored. Patient is on 2L of oxygen with oxygen saturation of 97% and discussed with nursing staff about weaning FI02 as tolerated as he does not wear oxygen in the outpatient setting. Patient denies any shortness of breath. Patient is being scheduled to undergo stenting of the LAD and being fitted for possible life vest on discharge as he is having nonsustained vtach on the monitor. Case management working on Lifevest. Continue with telemetry monitoring. Patient potassium is 3.4 and will replace per protocol and repeat am labs. Lower extremity edema is improving and transitioned to oral lasix. 10/25/2020 Patient is seen in follow up this morning status post LAD stent placement with cardiology and being closely monitored. Patient has been approved for Life vest and awaiting to be delivered to the bedside with training with caregiver being arranged and patient has a caregiver that comes to the house a few times a week. Patient had repeat urinalysis done and is within normal limits. Patient continues on IV ceftriaxone as he was having some burning with urination since the first stent was placed. Patient states he feels it is difficult to urinate w hile laying down. Patient to continue with Flomax as well. Patient continues on oral lasix along with IV heparin and being transitioned to Eliquis. Cardiology following closely and will discuss treatment plan for further details. PT/OT to evaluate the patient. Review of systems: Constitutional: No reports of fatigue, fever, or chills Cardiovascular: No reports of chest pain or palpitations Respiratory:no reports of shortness of breath GI: No reports of nausea, vomiting, or diarrhea : reports mild dysuria with difficulty urinating in a urinal lying in bed Neurovascular: Reports generalized weakness and lower extremity swelling that has improved All medications have been reviewed Active Medications Hydrocodone Bitart/Acetaminophen (Hydrocodone/Apap 5-325mg 1 Each Tab) 1 each PO Q6HR PRN PRN Reason: Pain Last Admin: 10/23/20 17:52 Dose: 1 each Documented by: Allopurinol (Allopurinol 100 Mg Tab) 100 mg PO DAILY [facility] Last Admin: 10/25/20 06:02 Dose: 100 mg Documented by: Alprazolam (Alprazolam 0.25 Mg Tab) 0.25 mg PO Q6HR PRN PRN Reason: Mild Anxiety Alprazolam (Alprazolam 0.5 Mg Tab) 0.5 mg PO Q6HR PRN PRN Reason: Moderate Anxiety Last Admin: 10/25/20 02:20 Dose: 0.5 mg Documented by: Apixaban (Apixaban 2.5 Mg Tablet) 2.5 mg PO BID [facility]; Protocol Aspirin (Aspirin 81 Mg) 81 mg PO DAILY [facility] Last Admin: 10/25/20 06:01 Dose: 81 mg Documented by: Atorvastatin Calcium (Atorvastatin 80 Mg Tab) 80 mg PO DAILY [facility] Last Admin: 10/25/20 06:02 Dose: 80 mg Documented by: Clonidine (Clonidine Hcl 0.1 Mg Tab) 0.1 mg PO DAILY [facility] Last Admin: 10/25/20 06:01 Dose: 0.1 mg Documented by: Clopidogrel Bisulfate (Clopidogrel 75 Mg Tab) 75 mg PO DAILY [facility] Last Admin: 10/25/20 06:01 Dose: 75 mg Documented by: Ergocalciferol (Ergocalciferol 1,250 Mcg (50,000 Iu) Capsule) 1,250 mcg PO Q7D [facility] Last Admin: 10/22/20 08:59 Dose: 1,250 mcg Documented by: Ferrous Sulfate (Ferrous Sulfate 325 Mg Tab) 325 mg PO DAILY [facility] Last Admin: 10/25/20 06:02 Dose: 325 mg Documented by: Furosemide (Furosemide 40 Mg Tab) 40 mg PO BID@0900,1600 [facility] Last Admin: 10/25/20 09:53 Dose: 40 mg Documented by: Glipizide (Glipizide 5 Mg Tab) 5 mg PO BID [facility] Last Admin: 10/25/20 09:53 Dose: 5 mg Documented by: Heparin Sodium (Porcine) (Heparin Sodium 1,000 Un/Ml (10ml Vl)) 0 unit IV PER PROTOCOL PRN; Protocol PRN Reason: Low PTT Last Admin: 10/24/20 17:36 Dose: 4,000 unit Documented by: Heparin Sodium (Porcine) (Heparin Sodium 1,000 Un/Ml (10ml Vl)) 0 unit IV PER PROTOCOL PRN; Protocol PRN Reason: Low PTT Ceftriaxone Sodium 1 gm/ (Sodium Chloride) 50 mls @ 100 mls/hr IVPB Q24HR [facility] Last Admin: 10/25/20 09:53 Dose: 100 mls/hr Documented by: Heparin Sodium/Sodium Chloride (25,000 unit/ Sodium Chloride) 250 mls @ 10 mls/hr IV .Q24H [facility]; Protocol Last Admin: 10/25/20 11:48 Dose: Not Given Documented by: Heparin Sodium (Porcine) 10, (000 unit/ Sodium Chloride) 1,001 mls @ 999 mls/hr IRRIGATION ONCE PRN PRN Reason: INTRA-OP Stop: 10/25/20 23:00 Heparin Sodium (Porcine) 2,500 (unit/ Sodium Chloride) 250.5 mls @ 250 mls/hr IRRIGATION ONCE PRN PRN Reason: INTRA-OP Stop: 10/25/20 23:00 Lisinopril (Lisinopril 10 Mg Tab) 10 mg PO BID [facility] Loratadine (Loratadine 10 Mg Tab) 10 mg PO DAILY [facility] Last Admin: 10/25/20 06:01 Dose: 10 mg Documented by: Metformin HCl (Metformin 500 Mg Tab) 500 mg PO BID [facility] Last Admin: 10/25/20 09:53 Dose: 500 mg Documented by: Metoprolol Succinate (Metoprolol Succinate (Er) 50 Mg Tab.Er.24h) 150 mg PO DAILY [facility] Metoprolol Tartrate (Metoprolol Tartrate 50 Mg Tab) 150 mg PO BID [facility] Stop: 10/25/20 23:59 Naloxone HCl (Naloxone 0.4 Mg/Ml 1 Ml Vial) 0.2 mg IV Q2M PRN PRN Reason: Opioid Reversal Nitroglycerin (Nitroglycerin Sl Tabs 0.4 Mg Tab) 0.4 mg SUBLINGUAL Q5M PRN PRN Reason: Chest Pain Oxybutynin Chloride (Oxybutynin Xl 5 Mg Tab.Er.24) 5 mg PO DAILY [facility] Last Admin: 10/25/20 06:01 Dose: 5 mg Documented by: Risperidone (Risperidone 0.5 Mg Tab) 0.5 mg PO HS [facility] Last Admin: 10/24/20 20:06 Dose: 0.5 mg Documented by: Sertraline HCl (Sertraline 50 Mg Tab) 50 mg PO [facility] Last Admin: 10/24/20 20:06 Dose: 50 mg Documented by: Spironolactone (Spironolactone 25 Mg Tab) 25 mg PO DAILY [facility] Last Admin: 10/25/20 09:52 Dose: 25 mg Documented by: Tamsulosin HCl (Tamsulosin 0.4 Mg Cap.Er.24h) 0.4 mg PO DAILY [facility] Last Admin: 10/25/20 06:01 Dose: 0.4 mg Documented by: Objective - Vital Signs Vital signs: Vital Signs Temp 97.5 F L 10/25/20 09:58 Pulse 60 10/25/20 09:58 Resp 18 10/25/20 09:58 BP 141/86 10/25/20 09:58 Pulse Ox 96 10/25/20 09:58 Intake & Output 10/24/20 10/25/20 10/25/20 18:59 06:59 18:59 Intake Total 648.333 169.638 250 Output Total 700 400 Balance -51.667 -230.362 250 Weight 63 kg Intake: IV 250 Intake, IV Titration 48.333 169.638 Amount Heparin Sod,Pork in 0.45% 48.333 169.638 NaCl 25,000 unit In 0.45 % NaCl 1 250ml.bag @ 10. 256 UNITS/KG/HR 10 mls/hr IV .Q24H [facility] Rx#: [id number] Oral 600 Output: Urine 700 400 Other: Voiding Method Toilet Toilet Urinal Urinal Diaper Diaper # Voids 1 - Exam Gen: This is a 70-year-old male lying in bed awake, alert and oriented 3, well- developed, well-nourished. Temp is 97.4 F, pulse is 60, respirations are 18, blood pressure is 141/86, oxygen saturation is 96% on room air. HEENT: Head is atraumatic, normocephalic. Pupils equal, round. Sclerae is anicteric. NECK: Supple. No JVD. No lymphadenopathy. No thyromegaly. LUNGS: Diminished breath sounds at the bases with some scattered rhonchi noted. No intercostal retractions. HEART: S1, S2 are muffled ABDOMEN: Soft. Obese. Bowel sounds are present. No masses. No tenderness. EXTREMITIES: No pedal edema. No calf tenderness. Trace pitting edema to bilate ral lower extremities, that is improving NEUROLOGICAL: Patient is awake, alert and oriented x3. No focal deficits. - Labs CBC & Chem 7: 10/25/20 05:29 10/25/20 05:29 Labs: Abnormal Lab Results - Last 24 Hours (Table) 10/24/20 10/24/20 10/24/20 Range/Units 11:04 11:54 16:55 RBC 3.92 L (4.30-5.90) m/uL Hgb 12.5 L (13.0-17.5) gm/dL Hct 38.7 L (39.0-53.0) % RDW 17.2 H (11.5-15.5) % Lymphocytes # 0.6 L (1.0-4.8) k/uL APTT (22.0-30.0) sec BUN (9-20) mg/dL Glucose (74-99) mg/dL POC Glucose (mg/dL) 207 H 127 H (75-99) mg/dL Urine Protein (Negative) Ur Leukocyte Esterase (Negative) Urine Mucus (None) /hpf 10/24/20 10/25/20 10/25/20 Range/Units 20:00 00:36 05:29 RBC (4.30-5.90) m/uL Hgb (13.0-17.5) gm/dL Hct (39.0-53.0) % RDW (11.5-15.5) % Lymphocytes # (1.0-4.8) k/uL APTT 42.9 H (22.0-30.0) sec BUN 24 H (9-20) mg/dL Glucose 165 H (74-99) mg/dL POC Glucose (mg/dL) 116 H (75-99) mg/dL Urine Protein (Negative) Ur Leukocyte Esterase (Negative) Urine Mucus (None) /hpf 10/25/20 10/25/20 10/25/20 Range/Units 05:29 05:29 06:20 RBC 3.75 L (4.30-5.90) m/uL Hgb 11.8 L (13.0-17.5) gm/dL Hct 36.6 L (39.0-53.0) % RDW 17.1 H (11.5-15.5) % Lymphocytes # (1.0-4.8) k/uL APTT 41.5 H (22.0-30.0) sec BUN (9-20) mg/dL Glucose (74-99) mg/dL POC Glucose (mg/dL) (75-99) mg/dL Urine Protein 2+ H (Negative) Ur Leukocyte Esterase Trace H (Negative) Urine Mucus Rare H (None) /hpf 10/25/20 Range/Units 06:24 RBC (4.30-5.90) m/uL Hgb (13.0-17.5) gm/dL Hct (39.0-53.0) % RDW (11.5-15.5) % Lymphocytes # (1.0-4.8) k/uL APTT (22.0-30.0) sec BUN (9-20) mg/dL Glucose (74-99) mg/dL POC Glucose (mg/dL) 161 H (75-99) mg/dL Urine Protein (Negative) Ur Leukocyte Esterase (Negative) Urine Mucus (None) /hpf Assessment and Plan Assessment: Congestive heart failure acute exacerbation, acute on chronic systolic dysfunction with an EF of 35-40% Status post cardiac catheterization with stenting to the proximal RCA and LAD non-sustained ventricular tachycardia, being fitted for lifevest Atrial fibrillation with fast ventricular rate Acute urinary tract infection, present on admission Elevated ALT possibly hepatitis Mild lymphopenia Elevated globulin, rule out chronic liver disease History of atrial fibrillation history of congestive heart failure diabetes mellitus type 2 Hypertension Hyperlipidemia History of gout History of degenerative joint disease history of anxiety, depression remote history of nicotine dependence obesity with a body mass index of 33.2 Full code Commendations and discussion: Recommend to continue with current medications and patient is maintained on oral Lasix and will continue along with fluid restrictions of 1200 mL's per day and cardiology following closely. Cardiology following and a underwent cardiac catheterization with stenting to the proximal RCA yesterday and stenting to the LAD was done today. Continue with IV heparin for now and will continue to monitor closely. Patient will transition to [facility]. Patient will continue on aspirin and Plavix as well. Due to multiple complex medical issues, prognosis is guarded. Will have PT/OT therapy evaluate the patient once more stable. Lifevest being delivered for discharge as patient is having non-sustained vtach on the monitor and will need his caregiver to come for training. Possible discharge in 24-48 hours.
[2020-10-26 06:10] LABS: Glucose,Whole Blood 148 mg/dL (75-99)
[2020-10-26] MEDS: INSULIN ASPART (NovoLOG) 100 UNIT/ML VIAL SQ SCH ×4 (06:16→20:48)
[2020-10-26] MEDS ORDERED: METOPROLOL SUCCINATE (ER) 50 MG TAB.ER.24H PO SCH (09:00)
[2020-10-26] MEDS: cloNIDine HCL 0.1 MG TAB PO SCH (09:01)
[2020-10-26] MEDS: TAMSULOSIN 0.4 MG CAP.ER.24H PO SCH (09:02)
[2020-10-26] MEDS: SPIRONOLACTONE 25 MG TAB PO SCH (09:02)
[2020-10-26] MEDS: APIXABAN 2.5 MG TABLET PO SCH ×2 (09:02→20:48)
[2020-10-26] MEDS: lisinopriL 10 MG TAB PO SCH ×2 (09:02→20:48)
[2020-10-26] MEDS: ATORVASTATIN 80 MG TAB PO SCH (09:02)
[2020-10-26] MEDS: ASPIRIN 81 MG PO SCH (09:02)
[2020-10-26] MEDS: FERROUS SULFATE 325 MG TAB PO SCH (09:02)
[2020-10-26] MEDS: OXYBUTYNIN XL 5 MG TAB.ER.24 PO SCH (09:02)
[2020-10-26] MEDS: LORATADINE 10 MG TAB PO SCH (09:02)
[2020-10-26] MEDS: CLOPIDOGREL 75 MG TAB PO SCH (09:02)
[2020-10-26] MEDS: glipiZIDE 5 MG TAB PO SCH ×2 (09:02→20:48)
[2020-10-26] MEDS: FUROSEMIDE 40 MG TAB PO SCH ×2 (09:02→18:00)
[2020-10-26] MEDS: allopurinoL 100 MG TAB PO SCH (09:03)
[2020-10-26] MEDS: metFORMIN 500 MG TAB PO SCH ×2 (09:10→22:14)
[2020-10-26 10:52] LABS: Anisocytosis Slight; Basophils % (A) 0 %; Eosinophils # (A) 0.1 k/uL (0-0.7); Eosinophils % (A) 2 %; HCT 35.8 % (39.0-53.0); HGB 11.3 gm/dL (13.0-17.5); Hypochromasia Moderate; Lymphocytes # (A) 0.8 k/uL (1.0-4.8); Lymphocytes % (A) 9 %; MCH 31.3 pg (25.0-35.0); MCHC 31.7 g/dL (31.0-37.0); MCV 98.9 fL (80.0-100.0); Macrocytosis Slight; Mean Platelet Volume 7.9; Monocytes # (A) 0.5 k/uL (0-1.0); Monocytes % (A) 6 %; Neutrophils # (A) 7.1 k/uL (1.3-7.7); Neutrophils % (A) 81 %; Platelet Count 261 k/uL (150-450); Poikilocytosis Slight; RBC 3.62 m/uL (4.30-5.90); RDW 16.7 % (11.5-15.5); WBC 8.8 k/uL (3.8-10.6)
[2020-10-26 11:12] LABS: Albumin 3.2 g/dL (3.5-5.0); Calcium 8.2 mg/dL (8.4-10.2); Potassium 3.3 mmol/L (3.5-5.1); Total Bilirubin 0.2 mg/dL (0.2-1.3); Total Protein 7.3 g/dL (6.3-8.2)
[2020-10-26] MEDS ORDERED: SPIRONOLACTONE 25 MG TAB PO STA (11:57)
[2020-10-26 11:58] LABS: Glucose,Whole Blood 173 mg/dL (75-99)
[2020-10-26] MEDS: POTASSIUM CHLORIDE ER 20 MEQ TAB.ER PO SCH ×2 (12:17→18:00)
--- NOTE | 2020-10-26 13:33 | P.PN ---
Subjective Patient is resting comfortably in bed. He is being treated for UTI with ceftriaxone and is receiving IV fluids 75 mL an hour He denies any orthopnea PND chest discomfort dizziness lightheadedness On examination he does have bilateral lower extremity edema Blood pressure 129/76. His mercury afebrile 98.2F pulse rate of 70 Breath sounds are clear no rhonchi no crackles Normal heart sounds normal S1 normal S2 no murmurs or gallops or rub Patient received his LifeVest for ischemic cardio myopathy nonsustained ventricular tachycardia Sodium 137 potassium 3.3, BUN 21 and creatinine 1.0 Hemoglobin 11.3 Impression Congestive heart failure systolic, acute on chronic Ischemic cardio myopathy Coronary artery disease 2 vessel status post PCI to the proximal RCA and PCI to the proximal to mid LAD stenosis Nonsustained ventricular tachycardia Paroxysmal atrial fibrillation on anticoagulation Type 2 diabetes Suggest Increase metoprolol to 200 mg by mouth daily, long-acting Stop clonidine Increase spironolactone Follow BMP Increase QUIRINO inhibitor as tolerated LifeVest for at least 4 months Reassessment of LV function in about [address] Piedra as an outpatient Objective - Vital Signs Vital signs: Vital Signs Temp 98.2 F 10/26/20 12:00 Pulse 75 10/26/20 12:00 Resp 20 10/26/20 12:00 BP 129/76 10/26/20 12:00 Pulse Ox 98 10/26/20 12:00 Intake & Output 10/25/20 10/26/20 10/26/20 18:59 06:59 18:59 Intake Total 490 240 Output Total 350 Balance 490 -350 240 Weight 81.1 kg Intake: IV 250 Oral 240 240 Output: Urine 350 Other: Voiding Method Toilet Toilet Urinal Urinal Diaper Diaper # Voids 2 # Bowel Movements 2 - Labs CBC & Chem 7: 10/26/20 10:11 10/26/20 10:11 Labs: Abnormal Lab Results - Last 24 Hours (Table) 10/25/20 10/25/20 10/26/20 Range/Units 16:56 20:05 06:08 RBC (4.30-5.90) m/uL Hgb (13.0-17.5) gm/dL Hct (39.0-53.0) % RDW (11.5-15.5) % Lymphocytes # (1.0-4.8) k/uL Potassium (3.5-5.1) mmol/L Carbon Dioxide (22-30) mmol/L BUN (9-20) mg/dL Glucose (74-99) mg/dL POC Glucose (mg/dL) 175 H 200 H 148 H (75-99) mg/dL Calcium (8.4-10.2) mg/dL Albumin (3.5-5.0) g/dL 10/26/20 10/26/20 10/26/20 Range/Units 10:11 10:11 11:56 RBC 3.62 L (4.30-5.90) m/uL Hgb 11.3 L (13.0-17.5) gm/dL Hct 35.8 L (39.0-53.0) % RDW 16.7 H (11.5-15.5) % Lymphocytes # 0.8 L (1.0-4.8) k/uL Potassium 3.3 L (3.5-5.1) mmol/L Carbon Dioxide 21 L (22-30) mmol/L BUN 21 H (9-20) mg/dL Glucose 310 H (74-99) mg/dL POC Glucose (mg/dL) 173 H (75-99) mg/dL Calcium 8.2 L (8.4-10.2) mg/dL Albumin 3.2 L (3.5-5.0) g/dL
[2020-10-26 16:39] LABS: Glucose,Whole Blood 90 mg/dL (75-99)
[2020-10-26] MEDS: HYDROcodone/APAP 5-325MG 1 EACH TAB PO PRN (18:02)
[2020-10-26] MEDS: HEPARIN SOD,PORK IN 0.45% NACL 25,000 UNIT in 0.45% NACL 1 250ML.BAG IV SCH (19:13)
[2020-10-26 20:40] LABS: Glucose,Whole Blood 151 mg/dL (75-99)
[2020-10-26] MEDS: risperiDONE 0.5 MG TAB PO SCH (20:48)
[2020-10-26] MEDS: SERTRALINE 50 MG TAB PO SCH (20:48)
[2020-10-27 06:24] LABS: Glucose,Whole Blood 150 mg/dL (75-99)
[2020-10-27] MEDS: INSULIN ASPART (NovoLOG) 100 UNIT/ML VIAL SQ SCH ×4 (06:30→20:37)
[2020-10-27 07:55] LABS: Anisocytosis Slight; Basophils # (A) 0.1 k/uL (0-0.2); Basophils % (A) 1 %; Eosinophils # (A) 0.3 k/uL (0-0.7); Eosinophils % (A) 4 %; HCT 37.7 % (39.0-53.0); Hypochromasia Slight; Lymphocytes # (A) 0.8 k/uL (1.0-4.8); Lymphocytes % (A) 10 %; MCH 31.3 pg (25.0-35.0); MCHC 31.8 g/dL (31.0-37.0); MCV 98.5 fL (80.0-100.0); Macrocytosis Slight; Mean Platelet Volume 8.2; Monocytes # (A) 0.6 k/uL (0-1.0); Monocytes % (A) 7 %; Neutrophils # (A) 6.4 k/uL (1.3-7.7); Neutrophils % (A) 77 %; Platelet Count 274 k/uL (150-450); Poikilocytosis Slight; RBC 3.83 m/uL (4.30-5.90); RDW 17.1 % (11.5-15.5); WBC 8.3 k/uL (3.8-10.6)
[2020-10-27 08:26] LABS: Calcium 8.5 mg/dL (8.4-10.2); Potassium 3.7 mmol/L (3.5-5.1)
[2020-10-27] MEDS: METOPROLOL SUCCINATE (ER) 100 MG TAB.ER.24H PO SCH (10:01)
[2020-10-27] MEDS: OXYBUTYNIN XL 5 MG TAB.ER.24 PO SCH (10:01)
[2020-10-27] MEDS: allopurinoL 100 MG TAB PO SCH (10:01)
[2020-10-27] MEDS: glipiZIDE 5 MG TAB PO SCH ×2 (10:02→20:37)
[2020-10-27] MEDS: FERROUS SULFATE 325 MG TAB PO SCH (10:02)
[2020-10-27] MEDS: TAMSULOSIN 0.4 MG CAP.ER.24H PO SCH (10:02)
[2020-10-27] MEDS: LORATADINE 10 MG TAB PO SCH (10:02)
[2020-10-27] MEDS: APIXABAN 2.5 MG TABLET PO SCH ×2 (10:02→20:38)
[2020-10-27] MEDS: lisinopriL 10 MG TAB PO SCH ×2 (10:02→20:38)
[2020-10-27] MEDS: CLOPIDOGREL 75 MG TAB PO SCH (10:02)
[2020-10-27] MEDS: SPIRONOLACTONE 25 MG TAB PO SCH (10:02)
[2020-10-27] MEDS: ASPIRIN 81 MG PO SCH (10:03)
[2020-10-27] MEDS: FUROSEMIDE 40 MG TAB PO SCH ×2 (10:03→15:39)
[2020-10-27] MEDS: metFORMIN 500 MG TAB PO SCH ×2 (10:03→20:37)
[2020-10-27] MEDS: ATORVASTATIN 80 MG TAB PO SCH (10:03)
[2020-10-27 12:23] LABS: Glucose,Whole Blood 121 mg/dL (75-99)
--- NOTE | 2020-10-27 12:57 | P.PN ---
Subjective Patient is resting comfortably in bed. Denies any chest discomfort no dizziness or lightheadedness Remains in atrial fibrillation Less than episodes of nonsustained ventricular tachycardia after revascularization of the LAD Prior to that during this admission. Revascularized his RCA On examination blood pressure is 135/85 mmHg pulse rate in the 70s to 90s, afebrile Breath sounds are reduced bilaterally no rhonchi no crackles Heart sounds S1 and S2 are normal irregular no murmurs Impression Ischemic cardio myopathy, severe Congestive heart failure, systolic, acute on chronic Coronary artery disease status post stenting to the RCA Subsequently underwent successful stenting to the LAD Nonsustained ventricular tachycardia Persistent atrial fibrillation Suggest ELIQUIS to provide twice daily for stroke prevention, patient is atrial fibr illation Continue aspirin and Plavix and atorvastatin 4 weeks later I will stop his aspirin and continue Plavix plus ELIQUIS Continue Lasix 40 g twice daily Diabetes control per admitting team Continue lisinopril 10 mg twice daily Continue metoprolol succinate 200 mg by mouth daily LifeVest for at least 4 months Objective - Vital Signs Vital signs: Vital Signs Temp 98.3 F 10/27/20 12:00 Pulse 93 10/27/20 12:00 Resp 22 10/27/20 12:00 BP 135/101 10/27/20 12:00 Pulse Ox 95 10/27/20 12:00 Intake & Output 10/26/20 10/27/20 10/27/20 18:59 06:59 18:59 Intake Total 720 240 Output Total 700 660 Balance 20 -660 240 Weight 81 kg Intake: Oral 720 240 Output: Urine 700 660 Other: Voiding Method Toilet Urinal Diaper # Voids 2 - Labs CBC & Chem 7: 10/27/20 07:41 10/27/20 07:41 Labs: Abnormal Lab Results - Last 24 Hours (Table) 10/26/20 10/27/20 10/27/20 Range/Units 20:39 06:22 07:41 RBC 3.83 L (4.30-5.90) m/uL Hgb 12.0 L (13.0-17.5) gm/dL Hct 37.7 L (39.0-53.0) % RDW 17.1 H (11.5-15.5) % Lymphocytes # 0.8 L (1.0-4.8) k/uL BUN (9-20) mg/dL Glucose (74-99) mg/dL POC Glucose (mg/dL) 151 H 150 H (75-99) mg/dL 10/27/20 10/27/20 Range/Units 07:41 12:01 RBC (4.30-5.90) m/uL Hgb (13.0-17.5) gm/dL Hct (39.0-53.0) % RDW (11.5-15.5) % Lymphocytes # (1.0-4.8) k/uL BUN 24 H (9-20) mg/dL Glucose 181 H (74-99) mg/dL POC Glucose (mg/dL) 121 H (75-99) mg/dL
[2020-10-27 16:25] LABS: Glucose,Whole Blood 116 mg/dL (75-99)
[2020-10-27 20:37] LABS: Glucose,Whole Blood 171 mg/dL (75-99)
[2020-10-27] MEDS: risperiDONE 0.5 MG TAB PO SCH (20:37)
[2020-10-27] MEDS: SERTRALINE 50 MG TAB PO SCH (20:37)
--- NOTE | 2020-10-28 00:22 | P.PN ---
Subjective Progress Note Date: 10/26/20 Principal diagnosis: CAD s/p stenting Mr. Guevara is a 70-year-old male with a significant past medical history of hypertension, hyperlipidemia, diabetes mellitus, DJD, anxiety, depression, admitted to the hospital with difficulty in breathing. Patient had an echocardi ogram showing ejection fraction of 35 to 40% with mild aortic valve sclerosis, eventually patient underwent cardiac catheterization and he had LAD stenting done. In the interim patient developed urinary symptoms, he is being treated with IV ceftriaxone for UTI. On 10/26/2020 -patient is seen and examined at the bedside. He sitting up in a chair by the bedside and his vest is being delivered to him. The person from the vest company is having a video call discussion with the caregiver on the sc [employer]. Patient states that his difficulty in breathing is improving as well his lower extremity swelling. He denies having any chest pain or palpitations. On reviewing the patient's vitals temperature 98.2, heart rate 75, respiratory 20, blood pressure 129/73, saturating at 98% on 2 L of oxygen. On reviewing the labs hemoglobin of 11.3, platelets 261. Sodium 131, potassium 3.3, chloride 105, bicarb 21, BUN 21, creatinine 1. Patient's medications have been reviewed. Objective - Vital Signs Vital signs: Vital Signs Temp 98.2 F 10/26/20 12:00 Pulse 75 10/26/20 12:00 Resp 20 10/26/20 12:00 BP 129/76 10/26/20 12:00 Pulse Ox 98 10/26/20 12:00 Intake & Output 10/25/20 10/26/20 10/26/20 18:59 06:59 18:59 Intake Total 490 480 Output Total 350 Balance 490 -350 480 Weight 81.1 kg Intake: IV 250 Oral 240 480 Output: Urine 350 Other: Voiding Method Toilet Toilet Urinal Urinal Diaper Diaper # Voids 2 # Bowel Movements 2 - Exam Gen: This is a 70-year-old male lying in bed awake, alert and oriented 2-3, well-developed, well-nourished. T HEENT: Head is atraumatic, normocephalic. Pupils equal, round. Sclerae is anicteric. NECK: Supple. No JVD. No lymphadenopathy. No thyromegaly. LUNGS: Diminished breath sounds at the bases with some scattered rhonchi noted. No intercostal retractions. HEART: S1, S2 are muffled ABDOMEN: Soft. Obese. Bowel sounds are present. No masses. No tenderness. EXTREMITIES: No pedal edema. No calf tenderness. Trace pitting edema to bilateral lower extremities NEUROLOGICAL: Patient is awake, alert and oriented x3. No focal deficits. - Labs CBC & Chem 7: 10/27/20 07:41 10/27/20 07:41 Labs: Abnormal Lab Results - Last 24 Hours (Table) 10/25/20 10/25/20 10/26/20 Range/Units 16:56 20:05 06:08 RBC (4.30-5.90) m/uL Hgb (13.0-17.5) gm/dL Hct (39.0-53.0) % RDW (11.5-15.5) % Lymphocytes # (1.0-4.8) k/uL Potassium (3.5-5.1) mmol/L Carbon Dioxide (22-30) mmol/L BUN (9-20) mg/dL Glucose (74-99) mg/dL POC Glucose (mg/dL) 175 H 200 H 148 H (75-99) mg/dL Calcium (8.4-10.2) mg/dL Albumin (3.5-5.0) g/dL 10/26/20 10/26/20 10/26/20 Range/Units 10:11 10:11 11:56 RBC 3.62 L (4.30-5.90) m/uL Hgb 11.3 L (13.0-17.5) gm/dL Hct 35.8 L (39.0-53.0) % RDW 16.7 H (11.5-15.5) % Lymphocytes # 0.8 L (1.0-4.8) k/uL Potassium 3.3 L (3.5-5.1) mmol/L Carbon Dioxide 21 L (22-30) mmol/L BUN 21 H (9-20) mg/dL Glucose 310 H (74-99) mg/dL POC Glucose (mg/dL) 173 H (75-99) mg/dL Calcium 8.2 L (8.4-10.2) mg/dL Albumin 3.2 L (3.5-5.0) g/dL Assessment and Plan Assessment: ASSESSMENT Congestive heart failure acute exacerbation, acute on chronic systolic dysfunction with an EF of 35-40% Status post cardiac catheterization with stenting to the proximal RCA and LAD non-sustained ventricular tachycardia, being fitted for lifevest Atrial fibrillation with fast ventricular rate Acute urinary tract infection, present on admission Elevated ALT possibly hepatitis Mild lymphopenia Elevated globulin, rule out chronic liver disease History of atrial fibrillation history of congestive heart failure diabetes mellitus type 2 Hypertension Hyperlipidemia History of gout History of degenerative joint disease history of anxiety, depression remote history of nicotine dependence obesity with a body mass index of 33.2 Full code PLAN: Recommend to continue with current medications and patient is maintained on oral Lasix and will continue along with fluid restrictions of 1200 mL's per day and cardiology following closely. Cardiology following and a underwent cardiac catheterization with stenting to the proximal RCA on 10/24/2020 and stenting to the LAD was done on 10/25/2020. Clonidine was discontinued and Metoprolol was increased. IV heparin transitioned to Eliquis. Patient will continue on aspirin and Plavix as well. Due to multiple complex medical issues, prognosis is guarded. Will have PT/OT therapy evaluate the patient once more stable. Lifevest being delivered and his caregiver being trained for it. Possible discharge in 24-48 hours.
--- NOTE | 2020-10-28 00:27 | P.PN ---
Subjective Progress Note Date: 10/27/20 Principal diagnosis: CAD s/p stenting Mr. Guevara is a 70-year-old male with a significant past medical history of hypertension, hyperlipidemia, diabetes mellitus, DJD, anxiety, depression, admitted to the hospital with difficulty in breathing. Patient had an echocardi ogram showing ejection fraction of 35 to 40% with mild aortic valve sclerosis, eventually patient underwent cardiac catheterization and he had LAD stenting done. In the interim patient developed urinary symptoms, he is being treated with IV ceftriaxone for UTI. On 10/26/2020 -patient is seen and examined at the bedside. He sitting up in a chair by the bedside and his vest is being delivered to him. The person from the vest company is having a video call discussion with the caregiver on the tx [employer]. Patient states that his difficulty in breathing is improving as well his lower extremity swelling. He denies having any chest pain or palpitations. On reviewing the patient's vitals temperature 98.2, heart rate 75, respiratory 20, blood pressure 129/73, saturating at 98% on 2 L of oxygen. On reviewing the labs hemoglobin of 11.3, platelets 261. Sodium 131, potassium 3.3, chloride 105, bicarb 21, BUN 21, creatinine 1. On 10/27/2020 -patient is seen and examined at the bedside. He is sitting up in a chair comfortably and having conversation with his friends. He denies having any active complaints of chest pain or palpitations. Denies having any cough or difficulty breathing. No abdominal pain nausea vomiting or diarrhea. No dysuria or hematuria. Patient's vitals revealed temperature 98.2, heart rate 75, respiratory 20, blood pressure 129/76, saturating at 98% on nasal cannula. Patient's labs revealed white count of 8.3, hemoglobin 12, platelets 274. So dium 138, potassium 3.7, chloride 104, bicarb 23, BUN 24, creatinine 1.1. Patient's medications have been reviewed. Objective - Vital Signs Vital signs: Vital Signs Temp 98.3 F 10/27/20 12:00 Pulse 93 10/27/20 12:00 Resp 22 10/27/20 12:00 BP 135/101 10/27/20 12:00 Pulse Ox 95 10/27/20 12:00 Intake & Output 10/26/20 10/27/20 10/27/20 18:59 06:59 18:59 Intake Total 720 240 Output Total 700 660 Balance 20 -660 240 Weight 81 kg Intake: Oral 720 240 Output: Urine 700 660 Other: Voiding Method Toilet Urinal Diaper # Voids 2 - Exam PHYSICAL EXAM Gen: This is a 70-year-old male lying in bed awake, alert and oriented 2-3, well-developed, well-nourished. HEENT: Head is atraumatic, normocephalic. Pupils equal, round. Sclerae is anicteric. NECK: Supple. No JVD. No lymphadenopathy. No thyromegaly. LUNGS: Diminished breath sounds at the bases with some scattered rhonchi noted. No intercostal retractions. HEART: S1, S2 are muffled ABDOMEN: Soft. Obese. Bowel sounds are present. No masses. No tenderness. EXTREMITIES: No pedal edema. No calf tenderness. Trace pitting edema to bilateral lower extremities NEUROLOGICAL: Patient is awake, alert and oriented x3. No focal deficits. - Labs CBC & Chem 7: 10/27/20 07:41 10/27/20 07:41 Labs: Abnormal Lab Results - Last 24 Hours (Table) 10/26/20 10/27/20 10/27/20 Range/Units 20:39 06:22 07:41 RBC 3.83 L (4.30-5.90) m/uL Hgb 12.0 L (13.0-17.5) gm/dL Hct 37.7 L (39.0-53.0) % RDW 17.1 H (11.5-15.5) % Lymphocytes # 0.8 L (1.0-4.8) k/uL BUN (9-20) mg/dL Glucose (74-99) mg/dL POC Glucose (mg/dL) 151 H 150 H (75-99) mg/dL 10/27/20 10/27/20 Range/Units 07:41 12:01 RBC (4.30-5.90) m/uL Hgb (13.0-17.5) gm/dL Hct (39.0-53.0) % RDW (11.5-15.5) % Lymphocytes # (1.0-4.8) k/uL BUN 24 H (9-20) mg/dL Glucose 181 H (74-99) mg/dL POC Glucose (mg/dL) 121 H (75-99) mg/dL Assessment and Plan Assessment: ASSESSMENT Congestive heart failure acute exacerbation, acute on chronic systolic dysfunction with an EF of 35-40% Status post cardiac catheterization with stenting to the proximal RCA and LAD non-sustained ventricular tachycardia, being fitted for lifevest Atrial fibrillation with fast ventricular rate Acute urinary tract infection, present on admission Elevated ALT possibly hepatitis Mild lymphopenia Elevated globulin, rule out chronic liver disease History of atrial fibrillation history of congestive heart failure diabetes mellitus type 2 Hypertension Hyperlipidemia History of gout History of degenerative joint disease history of anxiety, depression remote history of nicotine dependence obesity with a body mass index of 33.2 Full code PLAN: Recommend to continue with current medications and patient is maintained on oral Lasix and will continue along with fluid restrictions of 1200 mL's per day and cardiology following closely. Cardiology following and a underwent cardiac catheterization with stenting to the proximal RCA on 10/23/2020 and stenting to the LAD was done on 10/25/2020. Clonidine was discontinued and Metoprolol was increased yesterday . IV heparin transitioned to Eliquis yesterday. Patient will continue on aspirin and Plavix as well, to d/c Aspirin in 4 weeks. Due to multiple complex medical issues, prognosis is guarded. Will have PT/OT therapy evaluate the patient once more stable. Lifevest in place, care program resident aware of it. Repeat Echo in 3 months to evaluate EF. Further recommendations depending on the progress of the patient.
[2020-10-28] MEDS: INSULIN ASPART (NovoLOG) 100 UNIT/ML VIAL SQ SCH ×2 (06:31→12:12)
[2020-10-28 06:49] LABS: Glucose,Whole Blood 145 mg/dL (75-99)
[2020-10-28 08:39] VITALS: RESP 18; TEMP 98.5
[2020-10-28] MEDS: FERROUS SULFATE 325 MG TAB PO SCH (08:46)
[2020-10-28] MEDS: glipiZIDE 5 MG TAB PO SCH (08:46)
[2020-10-28] MEDS: METOPROLOL SUCCINATE (ER) 100 MG TAB.ER.24H PO SCH (08:46)
[2020-10-28] MEDS: OXYBUTYNIN XL 5 MG TAB.ER.24 PO SCH (08:46)
[2020-10-28] MEDS: FUROSEMIDE 40 MG TAB PO SCH (08:46)
[2020-10-28] MEDS: ATORVASTATIN 80 MG TAB PO SCH (08:46)
[2020-10-28] MEDS: lisinopriL 10 MG TAB PO SCH (08:46)
[2020-10-28] MEDS: CLOPIDOGREL 75 MG TAB PO SCH (08:46)
[2020-10-28] MEDS: ASPIRIN 81 MG PO SCH (08:46)
[2020-10-28] MEDS: TAMSULOSIN 0.4 MG CAP.ER.24H PO SCH (08:46)
[2020-10-28] MEDS: SPIRONOLACTONE 25 MG TAB PO SCH (08:46)
[2020-10-28] MEDS: LORATADINE 10 MG TAB PO SCH (08:46)
[2020-10-28] MEDS: metFORMIN 500 MG TAB PO SCH (08:46)
[2020-10-28] MEDS: allopurinoL 100 MG TAB PO SCH (08:46)
[2020-10-28] MEDS: APIXABAN 2.5 MG TABLET PO SCH (08:46)
[2020-10-28 11:46] LABS: Glucose,Whole Blood 127 mg/dL (75-99)
[2020-10-28 12:00] VITALS: BP 165/85
[2020-10-28 13:44] VITALS: BMI 29.9
--- NOTE | 2020-10-28 13:49 | P.PN ---
Subjective Progress Note Date: 10/28/20 HISTORY OF PRESENT ILLNESS: This is a 70-year-old male who follows in the office with Dr. Liao. Patient underwent cardiac catheterization with PCI to the RCA on 10/23/2020 and again on 10/26/2020 with PCI to the LAD. EF 35-40%. Patient was having runs of V-Tach during his admission and is currently wearing a lifevest. He denies chest pain or pressure. He denies shortness of breath. Vital signs are stable. He is hoping to be discharged home today. PHYSICAL EXAM: VITAL SIGNS: Reviewed. GENERAL: Well-developed in no acute distress. NECK: Supple. No JVD or thyromegaly LUNGS: Respirations even and unlabored. Lungs essentially clear to auscultation bilaterally. HEART: Irregular rate and rhythm. S1 and S2 heard. EXTREMITIES: Normal range of motion. No clubbing or cyanosis. Peripheral pulses intact. No lower extremity edema ASSESSMENT: Coronary artery disease status post PCI of the RCA and LAD Paroxysmal atrial fibrillation, on long-term anticoagulation with Eliquis Ischemic cardiomyopathy Nonsustained ventricular tachycardia Acute systolic heart failure Hypertension Hyperlipidemia Diabetes mellitus PLAN: Continue current cardiac medications Patient is stable for discharge home today from a cardiac standpoint He is to follow up outpatient with Dr. Laio Patient to be discharged home with [facility] Nurse practitioner note has been reviewed by physician. Signing provider agrees with the documented findings, assessment, and plan of care. Objective - Vital Signs Vital signs: Vital Signs Temp 98.5 F 10/28/20 08:39 Pulse 67 10/28/20 12:00 Resp 18 10/28/20 12:00 BP 165/85 10/28/20 12:00 Pulse Ox 94 L 10/28/20 12:00 Intake & Output 10/27/20 10/28/20 10/28/20 18:59 06:59 18:59 Intake Total 1120 480 Output Total 500 700 Balance 620 -700 480 Weight 92 kg 92 kg Intake: Intake, IV Titration 50 Amount cefTRIAXone 1 gm In 50 Sodium Chloride 0.9% 50 ml @ 100 mls/hr IVPB Q24HR YESSY Rx#:[id number] Oral 1070 480 Output: Urine 500 700 Other: Voiding Method Toilet Toilet Urinal Urinal Diaper Diaper # Voids 1 2 # Bowel Movements 1 - Labs CBC & Chem 7: 10/27/20 07:41 10/27/20 07:41 Labs: Abnormal Lab Results - Last 24 Hours (Table) 10/27/20 10/27/20 10/28/20 Range/Units 16:22 20:29 06:31 POC Glucose (mg/dL) 116 H 171 H 145 H (75-99) mg/dL 10/28/20 Range/Units 11:45 POC Glucose (mg/dL) 127 H (75-99) mg/dL
[2020-10-28 14:53] VITALS: PULSE 67
== END 2020-10-28 16:17 | disposition home or self-care (01) | DRG 246 ==
LOC: EC 11:26 → 3SCARD 13:17
PROVIDERS: ADMIT Hospitalist; ATTEND Hospitalist
PROC: B2111ZZ Fluoroscopy of Multiple Coronary Arteries using Low Osmolar Contrast (ICD-10-PCS; 2020-10-23)
PROC: 4A023N7 Measurement of Cardiac Sampling and Pressure, Left Heart, Percutaneous Approach (ICD-10-PCS; 2020-10-23 10:30)
PROC: 027034Z Dilation of Coronary Artery, One Artery with Drug-eluting Intraluminal Device, Percutaneous Approach (ICD-10-PCS; principal; 2020-10-25 07:30)
DX: I25.10 Atherosclerotic heart disease of native coronary artery without angina pectoris (principal); I50.23 Acute on chronic systolic (congestive) heart failure; I48.19 Other persistent atrial fibrillation; N39.0 Urinary tract infection, site not specified; I47.2 Ventricular tachycardia; I11.0 Hypertensive heart disease with heart failure; R06.02 Shortness of breath; Z79.01 Long term (current) use of anticoagulants; Z87.891 Personal history of nicotine dependence; I45.10 Unspecified right bundle-branch block; E11.9 Type 2 diabetes mellitus without complications; E78.5 Hyperlipidemia, unspecified; M10.9 Gout, unspecified; D72.810 Lymphocytopenia; M19.90 Unspecified osteoarthritis, unspecified site; E66.9 Obesity, unspecified; Z68.33 Body mass index [BMI] 33.0-33.9, adult; I27.20 Pulmonary hypertension, unspecified; I25.5 Ischemic cardiomyopathy; I25.82 Chronic total occlusion of coronary artery; Z79.84 Long term (current) use of oral hypoglycemic drugs; Z79.899 Other long term (current) drug therapy; Z79.02 Long term (current) use of antithrombotics/antiplatelets; Z79.82 Long term (current) use of aspirin; K80.20 Calculus of gallbladder without cholecystitis without obstruction; I35.8 Other nonrheumatic aortic valve disorders; Z96.649 Presence of unspecified artificial hip joint
CPT/HCPCS: 36415; 71046; 76705; 80048; 80053; 80061; 81001; 83605; 83735; 83880; 84443; 84484; 85025; 85379; 85610; 85730; 87086; 93005; 93306; 93454; 93458; 93571; 94760; 99285

== ENCOUNTER 2021-05-12 10:02 | Day surgery (SDC) | payer MEDICARE, OTHER ==
[2021-05-09 13:35] VITALS: BMI 31.4
[~2021-05-12 10:02] MED LIST: ceFAZolin 1 GM in SODIUM CHLORIDE 0.9% IRRIG BTL 250 ML IRRIGATION PRN
[2021-05-12 10:46] LABS: Glucose,Whole Blood 151 mg/dL (75-99)
[2021-05-12] MEDS ORDERED: SODIUM CHLORIDE 0.9% 500 ML 500 ML IV ONE (11:04)
[2021-05-12 11:16] LABS: Basophils # (A) 0.1 k/uL (0-0.2); Basophils % (A) 0 %; Eosinophils # (A) 0.4 k/uL (0-0.7); Eosinophils % (A) 4 %; HCT 37.3 % (39.0-53.0); HGB 12.9 gm/dL (13.0-17.5); Lymphocytes # (A) 0.8 k/uL (1.0-4.8); Lymphocytes % (A) 7 %; MCHC 34.5 g/dL (31.0-37.0); MCV 101.5 fL (80.0-100.0); Macrocytosis Slight; Mean Platelet Volume 7.2; Monocytes # (A) 0.7 k/uL (0-1.0); Monocytes % (A) 7 %; Neutrophils # (A) 8.8 k/uL (1.3-7.7); Neutrophils % (A) 80 %; Platelet Count 249 k/uL (150-450); Poikilocytosis Slight; RBC 3.67 m/uL (4.30-5.90); RDW 15.9 % (11.5-15.5)
[2021-05-12 11:23] LABS: Calcium 8.8 mg/dL (8.4-10.2); Potassium 4.6 mmol/L (3.5-5.1)
[2021-05-12] MEDS ORDERED: MIDAZOLAM 2 MG/2 ML VIAL ONE (12:20)
[2021-05-12] MEDS ORDERED: fentaNYL (PF) 50 MCG/ML 2 ML AMP ONE (12:20)
[2021-05-12] MEDS ORDERED: PROPOFOL 10 MG/ML 20 ML VIAL IV ONE (12:20)
[2021-05-12] MEDS ORDERED: IOPAMIDOL-370 50ML BTL INJ ONE ×2 (12:43)
[2021-05-12] MEDS ORDERED: LIDOCAINE 1% INJ 10MG/ML (20 ML MDV) ONE (12:48)
[2021-05-12] MEDS ORDERED: LIDOCAINE 1% INJ 10MG/ML (20 ML MDV) SQ ONE ×2 (13:00→13:30)
[2021-05-12] MEDS ORDERED: LACTATED RINGERS 1,000 ML IV ONE (13:44)
[2021-05-12] MEDS ORDERED: ACETAMINOPHEN IV (For NPO) 1,000 MG in EMPTY BAG 1 BAG IVPB ONE (14:30)
[2021-05-12] MEDS ORDERED: ACETAMINOPHEN TAB 325 MG TAB PO PRN (14:30)
[2021-05-12] MEDS ORDERED: HYDROcodone/APAP 5-325MG 1 EACH TAB PO PRN (14:33)
--- NOTE | 2021-05-12 14:44 | P.EPPROC ---
- EP Procedure Note Electrophysiology Procedure Note: Diagnosis Cardiomyopathy, chronic, ischemic with CHF class II, ejection fraction 35% Persistent atrial fibrillator Bradycardia, on guideline directed medical treatment Procedure: Dual-chamber ICD implantation for management of risk of sudden cardiac and bradycardia Result: Dual chamber ICD implantation, Atrial lead: [employer], active fix tendril STS, 2088 TC, 52 cm in length P waves 3.4 mV, pacing threshold 0.75 V at 0.5 ms and pacing impedance 450 ohms RV ICD lead: Single coil ICD lead, [employer], active fix, optisure Procedure details: Patient was brought to the EP lab in a fasting state. Written informed consent was obtained prior to the procedure. Options, pros and cons, benefits and risks and complications discussed with patient in detail prior to the procedure (shared decision making). Importance of continuing medical treatment emphasized. Alternatives discussed. Patient would like to proceed with dual-chamber ICD implant. Left upper extremity venogram performed. 15 mL IV dye injected in the left arm. Patent axillary/subclavian vein The left pectoral area was prepped and draped as a protocol. IV antibiotics administered 1% lidocaine was used for local anesthesia. A 4 cm incision was made parallel to the deltopectoral groove, about 1.5 cm medial to it. The incision was carried down to the level of the pectoralis muscle and the subfascial pocket was made. Hemostasis was assured. The axillary vein access was obtained. Appropriately sized into to see sheaths were placed. ICD lead implanted in the right ventricle and screwed in. ICD lead tested for threshold, sensing, impedances and tested with high output pacing for diaphragmatic stimulation Atrial lead placed in the right atrial appendage and tested for threshold, sensing, impedance, and tested with high output pacing. Phrenic nerve stimulation Patient was in atrial fibrillation during the procedure At 200 J biphasic shock in the AP configuration converted the patient to sinus rhythm He remained stable Atrial lead testing performed thereafter Lead secured to the underlying transverse muscle after removing sheaths . Pocket irrigated with antibiotic solution Leads connected to the biventricular ICD generator. Wound closed in 3 layers and dressed per protocol Dual ICD interrogated and programmed. Appropriate pacing parameters, antitachycardia therapies with antitachycardia pacing cardioversion defibrillations programmed. Patient tolerated the procedure well without any acute complications. See scanned device report in EMR for lead details Defibrillation level testing was performed Ventricular fibrillation was induced and adequately detected without any dropouts Successfully internally defibrillated, type II conversion 10 J shock successful, RV to can configuration, Cathode No post shock noise Device programmed to DDDR 60-130ppm, MVP on MAD[employer] RIT programming
--- NOTE | 2021-05-12 14:46 | P.EPCON ---
Electrophysiology Consult - EP Consult Electrophysiology Consult: Left upper extremity venogram 10 mL IV dye injected in the left arm Patent left axillary and subclavian venous system Plan Proceed with ICD implantation
[2021-05-12] MEDS: LACTATED RINGERS 1,000 ML IV SCH (15:47)
[2021-05-12] MEDS: SODIUM CHLORIDE 0.9% 1,000 ML IV SCH (15:48)
[2021-05-12 17:12] LABS: Glucose,Whole Blood 141 mg/dL (75-99)
[2021-05-12 20:09] LABS: Glucose,Whole Blood 223 mg/dL (75-99)
[2021-05-12] MEDS ORDERED: SERTRALINE 50 MG TAB PO SCH (21:00)
[2021-05-12] MEDS ORDERED: ATORVASTATIN 40 MG TAB PO SCH (21:00)
[2021-05-12] MEDS: METOPROLOL SUCCINATE (ER) 100 MG TAB.ER.24H PO SCH (21:29)
[2021-05-12] MEDS: INSULIN ASPART (NovoLOG) 100 UNIT/ML VIAL SQ SCH (21:30)
[2021-05-12] MEDS: APIXABAN 5 MG TAB PO SCH (21:31)
[2021-05-13] MEDS: SODIUM CHLORIDE 0.9% 1,000 ML IV SCH (01:15)
[2021-05-13] MEDS: LACTATED RINGERS 1,000 ML IV SCH (02:13)
[2021-05-13 03:14] LABS: Glucose,Whole Blood 107 mg/dL (75-99)
[2021-05-13 07:21] LABS: Glucose,Whole Blood 153 mg/dL (75-99)
[2021-05-13 08:20] VITALS: BP 132/71; PULSE 74; RESP 17; TEMP 98.1
[2021-05-13] MEDS: APIXABAN 5 MG TAB PO SCH (08:20)
[2021-05-13] MEDS: METOPROLOL SUCCINATE (ER) 100 MG TAB.ER.24H PO SCH (08:20)
[2021-05-13] MEDS: INSULIN ASPART (NovoLOG) 100 UNIT/ML VIAL SQ SCH ×2 (08:23→13:07)
[2021-05-13] MEDS ORDERED: allopurinoL 100 MG TAB PO SCH (09:00)
[2021-05-13] MEDS ORDERED: risperiDONE 0.5 MG TAB PO SCH (09:00)
[2021-05-13] MEDS ORDERED: CLOPIDOGREL 75 MG TAB PO SCH (09:00)
[2021-05-13] MEDS ORDERED: TAMSULOSIN 0.4 MG CAP.ER.24H PO SCH (09:00)
[2021-05-13] MEDS ORDERED: SPIRONOLACTONE 25 MG TAB PO SCH (09:00)
[2021-05-13] MEDS ORDERED: OXYBUTYNIN XL 5 MG TAB.ER.24 PO SCH (09:00)
[2021-05-13] MEDS ORDERED: FUROSEMIDE 20 MG TAB PO SCH (09:00)
[2021-05-13] MEDS ORDERED: lisinopriL 10 MG TAB PO SCH (09:00)
[2021-05-13 12:01] LABS: Glucose,Whole Blood 123 mg/dL (75-99)
--- NOTE | 2021-05-13 13:07 | P.DS ---
Providers Attending physician: Favian Piedra Primary care physician: Jessica Salinas Assessment: Patient is doing well from a chronic standpoint Denies any chest discomfort dizziness lightheadedness or palpitations On examination afebrile 98.1F pulse rate in the 70s Blood pressure 132/71 mmHg No JVD No lower extremity edema Impression Ischemic cardio myopathy Class II CHF Ejection fraction 35% Persistent atrial fibrillation Bradycardia during sinus rhythm Guideline directed medical treatment Status post dual-chamber ICD implantation, [employer] [facility] Plan Continue cardiac medications including atorvastatin 40 mg daily, Plavix 75 g daily, Toprol-XL 100 mg twice daily, V6 20 mg daily, spironolactone 50 mrem daily Continue lisinopril 10 mg daily Stop digoxin PATIENT EDUCATION MATERIAL Instructions following a heart rhythm device implant. 1. Keep dressing DRY for 5 DAYS. You may cover the area with Saran or Cling Wrap, prior to a shower. 2. The dressing will be removed in the Device Clinic at [facility]. Absorbable sutures were used to close the wound. 3. Avoid raising the left arm above the shoulder level. 4 week restriction 4. Avoid arm movements, like backscratching, rubbing the head, or pulling on a cord. 4 weeks restriction 5. Gentle range of motion movements of the shoulder, closest to the incision should be performed to avoid a frozen shoulder. (Pendulum exercises of the shoulder) 6. The opposite arm may be used freely. 7. Avoid driving for 7 days. 8. Avoid activities such as golfing, swimming, weed whacking, lifting more than 10 pounds weight, bowling, gymnastics and weight training/lifting. (6 weeks restriction) 9. Activities such as wood chopping with an axe, pull-ups in the gymnasium, power lifting, arc-welding, being close to home induction cooktops will always be a problem. 10. Arm sling is only a reminder not to raise the arm above the head. You do not need to keep the arm completely immobilized. Your free to move the arm and use it and for normal activities. In case of any problems, please call [facility], Jammie Washburn, @ [phone], Attention: Device Clinic Device clinic follow-up in 7 days at cardiology [facility] Follow-up with primary concrete building assembler in 3 months, Dr. Piedra Plan - Discharge Summary New Discharge Prescriptions: No Action Ferrous Sulfate [Iron] 325 mg PO DAILY glipiZIDE XL [Glucotrol XL] 2.5 mg PO BID Loratadine [Claritin] 10 mg PO DAILY Oxybutynin Xl [Ditropan XL] 5 mg PO DAILY risperiDONE [RisperDAL] 0.5 mg PO DAILY Sertraline HCl [Zoloft] 50 mg PO HS Tamsulosin HCl [Flomax] 0.4 mg PO DAILY Spironolactone [Aldactone] 50 mg PO DAILY 30 Days #30 tab Metoprolol Succinate (ER) [Toprol XL] 100 mg PO BID Apixaban [Eliquis] 5 mg PO BID Multivitamins, Thera [Multivitamin (formulary)] 1 tab PO DAILY Allopurinol [Zyloprim] 100 mg PO DAILY Digoxin [Digitek] 125 mcg PO DAILY Ergocalciferol [Vitamin D2 (1250 Mcg = 14633 Iu)] 1,250 mcg PO Q30D Furosemide [Lasix] 20 mg PO DAILY Clopidogrel [Plavix] 75 mg PO DAILY 30 Days #30 tab Atorvastatin [Lipitor] 40 mg PO HS 30 Days #30 lisinopriL [Zestril] 10 mg PO DAILY Cyanocobalamin [Vitamin B-12] 500 mcg PO DAILY HYDROcodone/APAP 5-325MG [[place] 5-325] 1 tab PO Q6HR PRN PRN Reason: Pain Thiamine HCl [Vitamin B-1] 100 mg PO DAILY Discharge Medication List Allopurinol [Zyloprim] 100 mg PO DAILY 10/21/20 [History] Digoxin [Digitek] 125 mcg PO DAILY 10/21/20 [History] Ergocalciferol [Vitamin D2 (1250 Mcg = 27589 Iu)] 1,250 mcg PO Q30D 10/21/20 [History] Ferrous Sulfate [Iron] 325 mg PO DAILY 10/21/20 [History] Furosemide [Lasix] 20 mg PO DAILY 10/21/20 [History] Loratadine [Claritin] 10 mg PO DAILY 10/21/20 [History] Oxybutynin Xl [Ditropan XL] 5 mg PO DAILY 10/21/20 [History] Sertraline HCl [Zoloft] 50 mg PO HS 10/21/20 [History] Tamsulosin HCl [Flomax] 0.4 mg PO DAILY 10/21/20 [History] glipiZIDE XL [Glucotrol XL] 2.5 mg PO BID 10/21/20 [History] risperiDONE [RisperDAL] 0.5 mg PO DAILY 10/21/20 [History] Atorvastatin [Lipitor] 40 mg PO HS 30 Days #30 10/28/20 [Rx] Clopidogrel [Plavix] 75 mg PO DAILY 30 Days #30 tab 10/28/20 [Rx] Spironolactone [Aldactone] 50 mg PO DAILY 30 Days #30 tab 10/28/20 [Rx] Apixaban [Eliquis] 5 mg PO BID 05/09/21 [History] Cyanocobalamin [Vitamin B-12] 500 mcg PO DAILY 05/09/21 [History] HYDROcodone/APAP 5-325MG [[place] 5-325] 1 tab PO Q6HR PRN 05/09/21 [History] Metoprolol Succinate (ER) [Toprol XL] 100 mg PO BID 05/09/21 [History] Multivitamins, Thera [Multivitamin (formulary)] 1 tab PO DAILY 05/09/21 [History] Thiamine HCl [Vitamin B-1] 100 mg PO DAILY 05/09/21 [History] lisinopriL [Zestril] 10 mg PO DAILY 05/09/21 [History]
--- NOTE | 2021-05-13 14:47 | XR ---
EXAMINATION TYPE: XR chest 2V DATE OF EXAM: 05/13/2021 COMPARISON: Chest x-ray 10/21/2020 HISTORY: Lead placement check TECHNIQUE: Frontal and lateral views of the chest are obtained on 3 images. FINDINGS: There has been a generator placed in the left pectoral region, there are leads in the righ t H[facility] Mcg[facility]is ventricle. Heart size is stable. Central vascularity and interstitium are prominent. Ther e is no evident pneumothorax or pleural effusion. Prominent lung volumes can be seen with underlying COPD. IMPRESSION: No evident complication status post lead placement, correlate for pulmonary venous hyper tension and interstitial edema, cardiomegaly.
== END 2021-05-13 14:06 ==
LOC: CATHEP 10:02 → 6NMEDSUR 14:10 → CATHEP 05-13 14:06
PROVIDERS: ATTEND Internal Medicine Clinical Cardiac Electrophysiology
DX: I47.2 Ventricular tachycardia (principal); I25.5 Ischemic cardiomyopathy; R00.1 Bradycardia, unspecified; I48.19 Other persistent atrial fibrillation; I11.0 Hypertensive heart disease with heart failure; I50.9 Heart failure, unspecified; E78.5 Hyperlipidemia, unspecified; E11.9 Type 2 diabetes mellitus without complications; Z20.822 Contact with and (suspected) exposure to COVID-19; Z72.0 Tobacco use; N40.0 Benign prostatic hyperplasia without lower urinary tract symptoms; F32.A Depression, unspecified; Z96.641 Presence of right artificial hip joint; Z98.890 Other specified postprocedural states; Z97.2 Presence of dental prosthetic device (complete) (partial); Z79.02 Long term (current) use of antithrombotics/antiplatelets; Z82.49 Family history of ischemic heart disease and other diseases of the circulatory system; Z79.899 Other long term (current) drug therapy; Z79.01 Long term (current) use of anticoagulants; Z79.84 Long term (current) use of oral hypoglycemic drugs
CPT/HCPCS: 97530; 97163; 97167; 93641; 33249; 80048; 85025; 87635; 71046; C1769; C1721; C1892; C1898; C1777; J2250; J0690 ×2; J2001; J3010; J0131; J2704; Q9967

== ENCOUNTER 2021-08-11 16:05 | Emergency (ER) | payer MEDICARE, OTHER ==
[2021-08-11 16:52] VITALS: BP 131/79; PULSE 86; RESP 14; TEMP 97.9
[2021-08-11] MEDS ORDERED: SODIUM CHLORIDE 0.9% 1,000 ML IV ONE (16:59)
[2021-08-11 17:43] LABS: Anisocytosis Slight; Basophils # (A) 0.1 k/uL (0-0.2); Basophils % (A) 1 %; Eosinophils # (A) 0.8 k/uL (0-0.7); Eosinophils % (A) 9 %; HCT 36.6 % (39.0-53.0); HGB 11.9 gm/dL (13.0-17.5); Lymphocytes # (A) 0.6 k/uL (1.0-4.8); Lymphocytes % (A) 7 %; MCH 32.5 pg (25.0-35.0); MCHC 32.5 g/dL (31.0-37.0); MCV 100.3 fL (80.0-100.0); Macrocytosis Slight; Mean Platelet Volume 7.2; Monocytes # (A) 0.8 k/uL (0-1.0); Monocytes % (A) 9 %; Neutrophils # (A) 6.6 k/uL (1.3-7.7); Neutrophils % (A) 74 %; Platelet Count 187 k/uL (150-450); Poikilocytosis Slight; RBC 3.66 m/uL (4.30-5.90)
[2021-08-11 18:12] LABS: Calcium 8.6 mg/dL (8.4-10.2); Potassium 4.3 mmol/L (3.5-5.1); Total Bilirubin 0.8 mg/dL (0.2-1.3)
[2021-08-11 18:15] LABS: Appearance,Urine Cloudy (Clear); Bacteria,Urine Few /hpf; Bilirubin,Urine Negative (Negative); Blood,Urine Trace (Negative); Color,Urine Yellow; Glucose,Urine (UA) Negative (Negative); Ketones,Urine Negative (Negative); Leukocyte Esterase,Urine Large (Negative); Mucus,Urine Rare /hpf; Nitrite,Urine Negative (Negative); PH, Urine 5.5 (5.0-8.0); Protein,Urine 1+ (Negative); RBC,Urine 20 /hpf (0-5); Specific Gravity,Urine 1.015 (1.001-1.035); Squamous Epithelial Cell,Urine 1 /hpf (0-4); Urobilinogen,Urine <2.0 mg/dL (<2.0); WBC,Urine >182 /hpf (0-5)
[2021-08-11] MEDS ORDERED: cefTRIAXone IN SWFI 1,000 MG/10 ML SYRINGE IVP STA (18:19)
--- NOTE | 2021-08-11 18:54 | ED ---
Male Urogenital HPI - General Chief complaint: Urogenital Stated complaint: UTI Time Seen by Provider: 08/11/21 16:39 Source: patient Mode of arrival: wheelchair Limitations: no limitations - History of Present Illness Initial comments: 71-year-old male presents emergency department for question of a UTI. States that today he began having some foul smelling urine. Denies urgency, frequency or burning. Has mild suprapubic discomfort and bilateral flank pain. Reports he has had a urinary tract infection before in the past that made him quite sick and he needed to be hospitalized. Patient presents today as he is concerned he could become more sick. He denies fevers. No nausea or vomiting. Denies any changes in his bowel habits. No other alleviating, precipitating modifying factors - Related Data Home Medications Medication Instructions Recorded Confirmed Allopurinol [Zyloprim] 100 mg PO DAILY 10/21/20 05/12/21 Ergocalciferol [Vitamin D2 (1250 1,250 mcg PO Q30D 10/21/20 05/12/21 Mcg = 84620 Iu)] Ferrous Sulfate [Iron] 325 mg PO DAILY 10/21/20 05/12/21 Furosemide [Lasix] 20 mg PO DAILY 10/21/20 05/12/21 Loratadine [Claritin] 10 mg PO DAILY 10/21/20 05/12/21 Oxybutynin Xl [Ditropan XL] 5 mg PO DAILY 10/21/20 05/12/21 Sertraline HCl [Zoloft] 50 mg PO HS 10/21/20 05/12/21 Tamsulosin HCl [Flomax] 0.4 mg PO DAILY 10/21/20 05/12/21 glipiZIDE XL [Glucotrol XL] 2.5 mg PO BID 10/21/20 05/12/21 risperiDONE [RisperDAL] 0.5 mg PO DAILY 10/21/20 05/12/21 Apixaban [Eliquis] 5 mg PO BID 05/09/21 05/12/21 Cyanocobalamin [Vitamin B-12] 500 mcg PO DAILY 05/09/21 05/12/21 HYDROcodone/APAP 5-325MG [[place] 1 tab PO Q6HR PRN 05/09/21 05/12/21 5-325] Metoprolol Succinate (ER) [Toprol 100 mg PO BID 05/09/21 05/12/21 XL] Multivitamins, Thera [Multivitamin 1 tab PO DAILY 05/09/21 05/12/21 (formulary)] Thiamine HCl [Vitamin B-1] 100 mg PO DAILY 05/09/21 05/12/21 lisinopriL [Zestril] 10 mg PO DAILY 05/09/21 05/12/21 Previous Rx's Medication Instructions Recorded Atorvastatin [Lipitor] 40 mg PO HS 30 Days #30 10/28/20 Clopidogrel [Plavix] 75 mg PO DAILY 30 Days #30 tab 10/28/20 Spironolactone [Aldactone] 50 mg PO DAILY 30 Days #30 tab 10/28/20 Cephalexin [Keflex] 500 mg PO Q6HR #28 cap 08/11/21 Allergies Allergy/AdvReac Type Severity Reaction Status Date / Time No Known Allergies Allergy Verified 08/11/21 16:16 Review of Systems ROS Statement: Those systems with pertinent positive or pertinent negative responses have been documented in the HPI. ROS Other: All systems not noted in ROS Statement are negative. Past Medical History Past Medical History: Atrial Fibrillation, Coronary Artery Disease (CAD), Heart Failure, Diabetes Mellitus, Hyperlipidemia, Hypertension Additional Past Medical History / Comment(s): gout , states hospitalized for 2 weeks with UTI and kidney infection with Covid at [facility] pt currently at [facility] and receiving physical therapy & using walker with assistance., pt has apt & lives alone, has caregiver that helps with shopping, appts. etc., goes to [facility]., has guardian - Zainab Lira # [phone]. History of Any Multi-Drug Resistant Organisms: None Reported Past Surgical History: Heart Catheterization With Stent, Orthopedic Surgery Additional Past Surgical History / Comment(s): , HEART CATH WITH 2 STENTS (DEC 2020), hip replacement x2 Past Anesthesia/Blood Transfusion Reactions: No Reported Reaction, Postoperative Nausea & Vomiting (PONV) Additional Past Anesthesia/Blood Transfusion Reaction / Comment(s): UNKNOWN FAMILY HX Date of Last Stent Placement:: DEC 2020 Past Psychological History: Anxiety, Depression Smoking Status: Former smoker Past Alcohol Use History: None Reported Past Drug Use History: None Reported - Past Family History Mother Family Medical History: Cancer Brother(s) Family Medical History: Cancer Additional Family Medical History / Comment(s): lung Father History Unknown: Yes General Exam Limitations: no limitations General appearance: alert, in no apparent distress Head exam: Present: atraumatic, normocephalic, normal inspection Eye exam: Present: normal appearance, PERRL, EOMI. Absent: scleral icterus, conjunctival injection, periorbital swelling ENT exam: Present: normal exam, mucous membranes moist Neck exam: Present: normal inspection. Absent: tenderness, meningismus, lymphadenopathy Respiratory exam: Present: normal lung sounds bilaterally. Absent: respiratory distress, wheezes, rales, rhonchi, stridor Cardiovascular Exam: Present: regular rate, normal rhythm, normal heart sounds. Absent: systolic murmur, diastolic murmur, rubs, gallop, clicks GI/Abdominal exam: Present: soft, normal bowel sounds. Absent: distended, tenderness, guarding, rebound, rigid Extremities exam: Present: normal inspection, full ROM, normal capillary refill. Absent: tenderness, pedal edema, joint swelling, calf tenderness Back exam: Present: normal inspection Neurological exam: Present: alert, oriented X3, CN II-XII intact Psychiatric exam: Present: normal affect, normal mood Skin exam: Present: warm, dry, intact, normal color. Absent: rash Course Vital Signs 08/11/21 08/11/21 16:11 16:50 Temperature 97.3 F L 97.9 F Pulse Rate 95 86 Respiratory 18 14 Rate Blood Pressure 136/85 131/79 O2 Sat by Pulse 99 98 Oximetry Medical Decision Making - Medical Decision Making Upon arrival patient was placed into room 8. Thorough history and physical exam was performed. Bladder scan is performed and patient has 25 mL in his bladder. He does provide a urine sample. Laboratory studies are conducted and reviewed. Creatinine elevated at 1.3. He is given a liter bolus of normal saline. Urinalysis demonstrates large leukocyte esterase, occasional white blood cell clumps and some bacteria. He is given dose of Rocephin. Urine specimen sent for culture. He'll be discharged home on Keflex. Instructed to follow-up with his primary care doctor within 2-4 days and return for any new or worsening symptoms. Patient agreed that she will plan and was discharged home in stable condition - Lab Data Result diagrams: 08/11/21 17:38 08/11/21 17:38 Lab Results 08/11/21 08/11/21 08/11/21 Range/Units 17:38 17:38 18:03 WBC 9.0 (3.8-10.6) k/uL RBC 3.66 L (4.30-5.90) m/uL Hgb 11.9 L (13.0-17.5) gm/dL Hct 36.6 L (39.0-53.0) % MCV 100.3 H (80.0-100.0) fL MCH 32.5 (25.0-35.0) pg MCHC 32.5 (31.0-37.0) g/dL RDW 17.0 H (11.5-15.5) % Plt Count 187 (150-450) k/uL MPV 7.2 Neutrophils % 74 % Lymphocytes % 7 % Monocytes % 9 % Eosinophils % 9 % Basophils % 1 % Neutrophils # 6.6 (1.3-7.7) k/uL Lymphocytes # 0.6 L (1.0-4.8) k/uL Monocytes # 0.8 (0-1.0) k/uL Eosinophils # 0.8 H (0-0.7) k/uL Basophils # 0.1 (0-0.2) k/uL Poikilocytosis Slight Anisocytosis Slight Macrocytosis Slight Sodium 139 (137-145) mmol/L Potassium 4.3 (3.5-5.1) mmol/L Chloride 107 (98-107) mmol/L Carbon Dioxide 21 L (22-30) mmol/L Anion Gap 11 mmol/L BUN 28 H (9-20) mg/dL Creatinine 1.37 H (0.66-1.25) mg/dL Est GFR (CKD-EPI)AfAm 59 (>60 ml/min/1.73 sqM) Est GFR (CKD-EPI)NonAf 51 (>60 ml/min/1.73 sqM) Glucose 89 (74-99) mg/dL Calcium 8.6 (8.4-10.2) mg/dL Total Bilirubin 0.8 (0.2-1.3) mg/dL AST 22 (17-59) U/L ALT 15 (4-49) U/L Alkaline Phosphatase 86 (38-126) U/L Total Protein 9.0 H (6.3-8.2) g/dL Albumin 4.0 (3.5-5.0) g/dL Urine Color Yellow Urine Appearance Cloudy (Clear) Urine pH 5.5 (5.0-8.0) Ur Specific [place] 1.015 (1.001-1.035) Urine Protein 1+ H (Negative) Urine Glucose (UA) Negative (Negative) Urine Ketones Negative (Negative) Urine Blood Trace H (Negative) Urine Nitrite Negative (Negative) Urine Bilirubin Negative (Negative) Urine Urobilinogen <2.0 (<2.0) mg/dL Ur Leukocyte Esterase Large H (Negative) Urine RBC 20 H (0-5) /hpf Urine WBC >182 H (0-5) /hpf Urine WBC Clumps Occasional H (None) /hpf Ur Squamous Epith Cells 1 (0-4) /hpf Urine Bacteria Few H (None) /hpf Urine Mucus Rare H (None) /hpf Disposition Clinical Impression: UTI (urinary tract infection) Disposition: HOME SELF-CARE Condition: Stable Instructions (If sedation given, give patient instructions): Urinary Tract Infection in Men (ED) Additional Instructions: Please take the antibiotics as directed starting tomorrow. Follow up with your primary care doctor in 2-4 days and return for any new or worsening symptoms Prescriptions: Cephalexin [Keflex] 500 mg PO Q6HR #28 cap Is patient prescribed a controlled substance at d/c from ED?: No Referrals: Brad Lopez MD [Primary Care Provider] - 1-2 days Time of Disposition: 18:52
== END 2021-08-11 19:22 | disposition home or self-care (01) ==
LOC: EC 16:05
DX: N39.0 Urinary tract infection, site not specified (principal); I11.0 Hypertensive heart disease with heart failure; E11.9 Type 2 diabetes mellitus without complications; E78.5 Hyperlipidemia, unspecified; Z87.891 Personal history of nicotine dependence
CPT/HCPCS: 51798; 36415; 80053; 85025; 81001; 87086; 99284; 96374; 96360; J0696; 87077; 87186

== ENCOUNTER 2022-02-06 14:59 | Observation (INO) | payer MEDICARE, OTHER ==
--- NOTE | 2022-02-06 16:18 | XR ---
EXAMINATION TYPE: XR chest 2V DATE OF EXAM: 02/06/2022 COMPARISON: Chest x-ray May 13, 2021 HISTORY: History of hypertension with shortness of breath TECHNIQUE: Frontal and lateral views of the chest are obtained. FINDINGS: Persistent cardiomegaly with dual lead pacemaker. Chronic emphysematous change present wit hout suspicious focal airspace opacity, pleural effusion, or pneumothorax seen The osseous structur es remain demineralized. IMPRESSION: Chronic emphysematous change and cardiomegaly without acute pulmonary process.
[2022-02-06 16:43] LABS: Anisocytosis Slight; Basophils % (A) 0 %; Eosinophils # (A) 0.3 k/uL (0-0.7); Eosinophils % (A) 4 %; HCT 34.7 % (39.0-53.0); HGB 12.5 gm/dL (13.0-17.5); Hypochromasia Slight; Lymphocytes # (A) 0.8 k/uL (1.0-4.8); Lymphocytes % (A) 14 %; MCH 36.2 pg (25.0-35.0); MCV 100.4 fL (80.0-100.0); Macrocytosis Slight; Mean Platelet Volume 7.8; Monocytes # (A) 0.5 k/uL (0-1.0); Monocytes % (A) 8 %; Neutrophils # (A) 4.3 k/uL (1.3-7.7); Neutrophils % (A) 70 %; Platelet Count 187 k/uL (150-450); Poikilocytosis Moderate; RBC 3.46 m/uL (4.30-5.90); RDW 17.3 % (11.5-15.5); WBC 6.1 k/uL (3.8-10.6)
[2022-02-06 17:01] LABS: Albumin 3.7 g/dL (3.5-5.0); Magnesium 1.8 mg/dL (1.6-2.3); Potassium 3.5 mmol/L (3.5-5.1); Total Bilirubin 0.7 mg/dL (0.2-1.3)
--- NOTE | 2022-02-06 17:25 | ED ---
General Adult HPI - General Chief complaint: Shortness of Breath Stated complaint: Hypertension Time Seen by Provider: 02/06/22 15:12 Source: patient, EMS Mode of arrival: EMS Limitations: no limitations - History of Present Illness Initial comments: This is a 71-year-old male with an extensive past medical history including congestive heart failure, hypertension, diabetes and schizophrenia presented to the emergency department via EMS for shortness of breath. The [facility] and was noted to be short of breath. On evaluation here, the patient was asked about his shortness of breath and he was an overall poor historian and cannot provide any details for me. The patient stated "I don't know, MIP a couple months or weeks I haven't been keeping count." The patient was resting in bed without any acute pain or distress. The patient was mildly tachypneic but not on any oxygen at this time. The patient remained stable and did not complain of any further acute pain. The patient denied any fevers and chills. - Related Data Home Medications Medication Instructions Recorded Confirmed Ergocalciferol [Vitamin D2 (1250 1,250 mcg PO QMONTHLY 10/21/20 02/06/22 Mcg = 38465 Iu)] Ferrous Sulfate [Iron] 325 mg PO DAILY 10/21/20 02/06/22 Furosemide [Lasix] 20 mg PO DAILY 10/21/20 02/06/22 Oxybutynin Xl [Ditropan XL] 5 mg PO DAILY 10/21/20 02/06/22 Sertraline HCl [Zoloft] 50 mg PO HS 10/21/20 02/06/22 Tamsulosin HCl [Flomax] 0.4 mg PO HS 10/21/20 02/06/22 allopurinoL [Zyloprim] 100 mg PO DAILY 10/21/20 02/06/22 risperiDONE [RisperDAL] 0.5 mg PO HS 10/21/20 02/06/22 Apixaban [Eliquis] 5 mg PO BID 05/09/21 02/06/22 Cyanocobalamin [Vitamin B-12] 500 mcg PO DAILY 05/09/21 02/06/22 Metoprolol Succinate (ER) [Toprol 100 mg PO BID 05/09/21 02/06/22 XL] Thiamine HCl [Vitamin B-1] 100 mg PO DAILY 05/09/21 02/06/22 Amiodarone [Cordarone] 200 mg PO DAILY 02/06/22 02/06/22 Loratadine [Claritin] 10 mg PO DAILY 02/06/22 02/06/22 Menthol [Biofreeze] 1 applic TOPICAL Q6H PRN 02/06/22 02/06/22 Menthol-Zinc Oxide Oint 1 applic TOPICAL QID PRN 02/06/22 02/06/22 [Calmoseptine Ointment] Multivit-Min/FA/Lycopen/Lutein 1 tab PO DAILY 02/06/22 02/06/22 [Centrum Silver Men Tablet] Spironolactone [Aldactone] 25 mg PO DAILY 02/06/22 02/06/22 glipiZIDE [Glucotrol] 5 mg PO BID 02/06/22 02/06/22 lisinopriL [Zestril] 2.5 mg PO DAILY 02/06/22 02/06/22 Previous Rx's Medication Instructions Recorded Atorvastatin [Lipitor] 40 mg PO HS 30 Days #30 10/28/20 Clopidogrel [Plavix] 75 mg PO DAILY 30 Days #30 tab 10/28/20 Allergies Allergy/AdvReac Type Severity Reaction Status Date / Time No Known Allergies Allergy Verified 02/06/22 16:20 Review of Systems ROS Statement: Those systems with pertinent positive or pertinent negative responses have been documented in the HPI. ROS Other: All systems not noted in ROS Statement are negative. Past Medical History Past Medical History: Atrial Fibrillation, Coronary Artery Disease (CAD), Heart Failure, Diabetes Mellitus, Hyperlipidemia, Hypertension Additional Past Medical History / Comment(s): gout , states hospitalized for 2 weeks with UTI and kidney infection with Covid at [facility]., pt currently at [facility] and receiving physical therapy & using walker with assistance., pt has apt & lives alone, has caregiver that helps with shopping, appts. etc., goes to [facility]., has guardian - Zainab Lira # [phone]. History of Any Multi-Drug Resistant Organisms: None Reported Past Surgical History: Heart Catheterization With Stent, Orthopedic Surgery Additional Past Surgical History / Comment(s): , HEART CATH WITH 2 STENTS (DEC 2020), hip replacement x2 Past Anesthesia/Blood Transfusion Reactions: No Reported Reaction, Postoperative Nausea & Vomiting (PONV) Additional Past Anesthesia/Blood Transfusion Reaction / Comment(s): UNKNOWN FAMILY HX Date of Last Stent Placement:: DEC 2020 Past Psychological History: Anxiety, Depression Smoking Status: Former smoker Past Alcohol Use History: None Reported Past Drug Use History: None Reported - Past Family History Mother Family Medical History: Cancer Brother(s) Family Medical History: Cancer Additional Family Medical History / Comment(s): lung Father History Unknown: Yes General Exam Limitations: no limitations General appearance: alert, in no apparent distress, obese Head exam: Present: atraumatic, normocephalic Eye exam: Present: normal appearance, PERRL Pupils: Present: normal accommodation ENT exam: Present: normal exam, normal oropharynx, mucous membranes moist Neck exam: Present: normal inspection, full ROM Respiratory exam: Present: normal lung sounds bilaterally Cardiovascular Exam: Present: regular rate, normal rhythm, normal heart sounds GI/Abdominal exam: Present: soft, normal bowel sounds Extremities exam: Present: normal inspection, full ROM Back exam: Present: normal inspection, full ROM Neurological exam: Present: alert, oriented X3, CN II-XII intact Psychiatric exam: Present: normal affect, normal mood Skin exam: Present: warm, dry Course Vital Signs 02/06/22 02/06/22 02/06/22 15:20 16:53 17:48 Temperature 98.4 F Pulse Rate 94 91 83 Respiratory 18 Rate Blood Pressure 167/120 147/91 O2 Sat by Pulse 98 94 L Oximetry 02/06/22 17:58 Temperature Pulse Rate 81 Respiratory Rate Blood Pressure O2 Sat by Pulse Oximetry EKG Findings - EKG Comments: EKG Findings:: An EKG was obtained was read by myself. EKG showed a rate of 85, QRS duration 160 and QTC of 486. This EKG showed intrafibrillation without any ST segment elevations or depressions. The patient did not have a rapid ventricular rate at this time. Medical Decision Making - Medical Decision Making The patient was seen and evaluated in the emergency department. Physical exam, the patient was resting in bed without any acute distress. Vital signs admission were stable and within normal limits. When I evaluated the patient, the patient was not on oxygen and his oxygen saturation was 94% on room air. Due to the nature the patient's complaints, laboratory workup was obtained as was a chest x-ray and EKG. On reevaluation, the patient stated that he had continued shortness of breath however did have clear breath sounds bilaterally. The patient was given a DuoNeb for comfort. The patient was resting in bed comfortably. Laboratory workup showed was largely within normal limits however urinalysis showed signs for a UTI. The patient's proBNP was elevated at 4800. The patient was given 1 g Rocephin at this time. Chest x-ray was obtained and was interpreted by myself. Chest x-ray showed chronic emphysematous change and cardiomegaly without acute pulmonary process. The patient continued to remain stable and due to the patient's likely CHF exacerbation, and continued exertional dyspnea, the patient would and if it from an observation stay where he would be seen by cardiology. The [facility] the [facility] and was instructed to be admitted to the [facility]. Dr. Lee was contacted at [phone] and accepted the patient for admission to observation. The patient was told this plan and was agreeable. The patient was placed in observation in stable condition with cardiology on consult. - Lab Data Result diagrams: 02/06/22 16:14 02/06/22 16:14 Lab Results 02/06/22 02/06/22 02/06/22 Range/Units 16:14 16:14 16:14 WBC 6.1 (3.8-10.6) k/uL RBC 3.46 L (4.30-5.90) m/uL Hgb 12.5 L (13.0-17.5) gm/dL Hct 34.7 L (39.0-53.0) % MCV 100.4 H (80.0-100.0) fL MCH 36.2 H (25.0-35.0) pg MCHC 36.0 (31.0-37.0) g/dL RDW 17.3 H (11.5-15.5) % Plt Count 187 (150-450) k/uL MPV 7.8 Neutrophils % 70 % Lymphocytes % 14 % Monocytes % 8 % Eosinophils % 4 % Basophils % 0 % Neutrophils # 4.3 (1.3-7.7) k/uL Lymphocytes # 0.8 L (1.0-4.8) k/uL Monocytes # 0.5 (0-1.0) k/uL Eosinophils # 0.3 (0-0.7) k/uL Basophils # 0.0 (0-0.2) k/uL Hypochromasia Slight Poikilocytosis Moderate Anisocytosis Slight Macrocytosis Slight Sodium 139 (137-145) mmol/L Potassium 3.5 (3.5-5.1) mmol/L Chloride 107 (98-107) mmol/L Carbon Dioxide 22 (22-30) mmol/L Anion Gap 10 mmol/L BUN 22 H (9-20) mg/dL Creatinine 1.11 (0.66-1.25) mg/dL Est GFR (CKD-EPI)AfAm 77 (>60 ml/min/1.73 sqM) Est GFR (CKD-EPI)NonAf 66 (>60 ml/min/1.73 sqM) Glucose 99 (74-99) mg/dL Calcium 8.0 L (8.4-10.2) mg/dL Magnesium 1.8 (1.6-2.3) mg/dL Total Bilirubin 0.7 (0.2-1.3) mg/dL AST 43 (17-59) U/L ALT 43 (4-49) U/L Alkaline Phosphatase 73 (38-126) U/L Troponin I <0.012 (0.000-0.034) ng/mL NT-Pro-B Natriuret Pep pg/mL Total Protein 8.0 (6.3-8.2) g/dL Albumin 3.7 (3.5-5.0) g/dL Lipase 111 (23-300) U/L Urine Color Urine Appearance (Clear) Urine pH (5.0-8.0) Ur Specific [place] (1.001-1.035) Urine Protein (Negative) Urine Glucose (UA) (Negative) Urine Ketones (Negative) Urine Blood (Negative) Urine Nitrite (Negative) Urine Bilirubin (Negative) Urine Urobilinogen (<2.0) mg/dL Ur Leukocyte Esterase (Negative) Urine RBC (0-5) /hpf Urine WBC (0-5) /hpf Ur Squamous Epith Cells (0-4) /hpf Urine Bacteria (None) /hpf Urine Mucus (None) /hpf Urine Yeast ([place]) (None) /hpf 02/06/22 02/06/22 Range/Units 16:14 16:53 WBC (3.8-10.6) k/uL RBC (4.30-5.90) m/uL Hgb (13.0-17.5) gm/dL Hct (39.0-53.0) % MCV (80.0-100.0) fL MCH (25.0-35.0) pg MCHC (31.0-37.0) g/dL RDW (11.5-15.5) % Plt Count (150-450) k/uL MPV Neutrophils % % Lymphocytes % % Monocytes % % Eosinophils % % Basophils % % Neutrophils # (1.3-7.7) k/uL Lymphocytes # (1.0-4.8) k/uL Monocytes # (0-1.0) k/uL Eosinophils # (0-0.7) k/uL Basophils # (0-0.2) k/uL Hypochromasia Poikilocytosis Anisocytosis Macrocytosis Sodium (137-145) mmol/L Potassium (3.5-5.1) mmol/L Chloride (98-107) mmol/L Carbon Dioxide (22-30) mmol/L Anion Gap mmol/L BUN (9-20) mg/dL Creatinine (0.66-1.25) mg/dL Est GFR (CKD-EPI)AfAm (>60 ml/min/1.73 sqM) Est GFR (CKD-EPI)NonAf (>60 ml/min/1.73 sqM) Glucose (74-99) mg/dL Calcium (8.4-10.2) mg/dL Magnesium (1.6-2.3) mg/dL Total Bilirubin (0.2-1.3) mg/dL AST (17-59) U/L ALT (4-49) U/L Alkaline Phosphatase (38-126) U/L Troponin I (0.000-0.034) ng/mL NT-Pro-B Natriuret Pep 4300 pg/mL Total Protein (6.3-8.2) g/dL Albumin (3.5-5.0) g/dL Lipase (23-300) U/L Urine Color Yellow Urine Appearance Cloudy (Clear) Urine pH 6.0 (5.0-8.0) Ur Specific [place] 1.021 (1.001-1.035) Urine Protein 2+ H (Negative) Urine Glucose (UA) Negative (Negative) Urine Ketones Negative (Negative) Urine Blood Trace H (Negative) Urine Nitrite Negative (Negative) Urine Bilirubin Negative (Negative) Urine Urobilinogen <2.0 (<2.0) mg/dL Ur Leukocyte Esterase Large H (Negative) Urine RBC 7 H (0-5) /hpf Urine WBC >182 H (0-5) /hpf Ur Squamous Epith Cells 3 (0-4) /hpf Urine Bacteria Few H (None) /hpf Urine Mucus Rare H (None) /hpf Urine Yeast ([place]) Moderate H (None) /hpf Disposition Clinical Impression: Acute exacerbation of congestive heart failure, UTI (urinary tract infection) Disposition: ADMITTED IP TO THIS [facility] Condition: Stable Is patient prescribed a controlled substance at d/c from ED?: No Referrals: Brad Lopez MD [Primary Care Provider] - 1-2 days Time of Disposition: 18:35 Decision to Admit Reason: Admit from EC Decision Date: 02/06/22 Decision Time: 18:35
[2022-02-06 17:30] LABS: Appearance,Urine Cloudy (Clear); Bacteria,Urine Few /hpf; Bilirubin,Urine Negative (Negative); Blood,Urine Trace (Negative); Budding Yeast,Urine Moderate /hpf; Color,Urine Yellow; Glucose,Urine (UA) Negative (Negative); Ketones,Urine Negative (Negative); Leukocyte Esterase,Urine Large (Negative); Mucus,Urine Rare /hpf; Nitrite,Urine Negative (Negative); Protein,Urine 2+ (Negative); RBC,Urine 7 /hpf (0-5); Specific Gravity,Urine 1.021 (1.001-1.035); Squamous Epithelial Cell,Urine 3 /hpf (0-4); Urobilinogen,Urine <2.0 mg/dL (<2.0); WBC,Urine >182 /hpf (0-5)
[2022-02-06] MEDS ORDERED: FUROSEMIDE 10 MG/ML 4 ML VIAL IV STA (17:34)
[2022-02-06] MEDS ORDERED: IPRATROPIUM-ALBUTEROL 3 ML NEB INHALATION STA (17:34)
[2022-02-06] MEDS ORDERED: NALOXONE 0.4 MG/ML 1 ML VIAL IV PRN (18:38)
[2022-02-06] MEDS: TAMSULOSIN 0.4 MG CAP.ER.24H PO SCH (21:34)
[2022-02-06] MEDS: risperiDONE 0.5 MG TAB PO SCH (21:34)
[2022-02-06] MEDS: APIXABAN 5 MG TAB PO SCH (21:34)
[2022-02-06] MEDS: METOPROLOL SUCCINATE (ER) 100 MG TAB.ER.24H PO SCH (21:34)
[2022-02-06] MEDS: SERTRALINE 50 MG TAB PO SCH (21:34)
--- NOTE | 2022-02-07 02:32 | P.HPIM ---
History of Present Illness H&P Date: 02/06/22 The patient is a 71-year-old male with a PMH of A. fib on Eliquis, systolic CHF EF 35%, hypertension, hyperlipidemia, type II DM who presents to the emergency room with complaints of shortness of breath. The patient is a somewhat poor historian but states that his been experiencing gradually worsening shortness of breath over the past few days. He also reports mild lower extremity edema. Denied experiencing chest discomfort, palpitations, orthopnea, or PND. Denies lower extremity pain. Denies cough, fever, chills. Chest x-ray in the emergency room was consistent with emphysematous changes with cardiomegaly with EKG showing A. fib at 85 bpm with a right bundle branch block. Laboratory evaluation was remarkable for troponin less than 0.012, proBNP 4300, and a UA consistent with UTI. Review of systems: Pertinent positives and negatives as discussed in HPI, a complete review of systems was performed and all other systems are negative. Physical examination: General: non toxic, no distress, appears older than stated age, obese Derm: no unusual rashes/lesions, warm Head: atraumatic, normocephalic, symmetric Eyes: EOMI, no lid lag, anicteric sclera, pupils equal round reactive to light ENT: Nose and ears atraumatic Neck: No cervical lymphadenopathy, trachea midline, supple Mouth: no lip lesion, mucus membranes moist Cardiovascular: S1S2 reg, no murmur, positive dorsalis pedis pulse bilateral, 1+ bilateral lower extremity pitting edema Lungs: Mild bibasilar rales, no wheezing or rhonchi appreciated, no accessory muscle use Abdominal: soft, nontender to palpation, no guarding Ext: muscle strength 5 out of 5 in all 4 extremities grossly, no gross muscle atrophy, no contractures, Neuro: CN II-XI grossly intact, no gross focal neuro deficits Psych: Alert, oriented, appropriate affect Assessment/plan Short of breath, suspected secondary to mild CHF exacerbation -Continue with Lasix IV for now -Intake output -Cardiology consult -Cardiac monitoring -Daily weights UTI -Continue with ceftriaxone -Follow up urine culture Chronic conditions: A. fib, hypertension, hyperlipidemia, type II DM -Insulin sliding scale and blood glucose monitoring -Continue with remaining home medications DVT prophylaxis -Eliquis The patient is admitted with an anticipated less than 2 midnight stay for evaluation of SOB CODE STATUS: Full Code Discussed with: Patient Anticipated discharge date: in am Anticipated discharge place: Home Past Medical History Past Medical History: Atrial Fibrillation, Coronary Artery Disease (CAD), Heart Failure, Diabetes Mellitus, Hyperlipidemia, Hypertension Additional Past Medical History / Comment(s): gout , states hospitalized for 2 weeks with UTI and kidney infection with Covid at [facility] pt currently at [facility] and receiving physical therapy & using walker with assistance., pt has apt & lives alone, has caregiver that helps with shopping, appts. etc., goes to [facility] has guardian - Zainab Lira # [phone]. History of Any Multi-Drug Resistant Organisms: None Reported Past Surgical History: Heart Catheterization With Stent, Orthopedic Surgery Additional Past Surgical History / Comment(s): , HEART CATH WITH 2 STENTS (DEC 2020), hip replacement x2 Past Anesthesia/Blood Transfusion Reactions: No Reported Reaction, Postoperative Nausea & Vomiting (PONV) Additional Past Anesthesia/Blood Transfusion Reaction / Comment(s): UNKNOWN FAMILY HX Date of Last Stent Placement:: DEC 2020 Past Psychological History: Anxiety, Depression Smoking Status: Former smoker Past Alcohol Use History: None Reported Past Drug Use History: None Reported - Past Family History Mother Family Medical History: Cancer Brother(s) Family Medical History: Cancer Additional Family Medical History / Comment(s): lung Father History Unknown: Yes Family Medical History: Hyperlipidemia Medications and Allergies Home Medications Medication Instructions Recorded Confirmed Type Ergocalciferol [Vitamin D2 (1250 1,250 mcg PO QMONTHLY 10/21/20 02/06/22 History Mcg = 23231 Iu)] Ferrous Sulfate [Iron] 325 mg PO DAILY 10/21/20 02/06/22 History Furosemide [Lasix] 20 mg PO DAILY 10/21/20 02/06/22 History Oxybutynin Xl [Ditropan XL] 5 mg PO DAILY 10/21/20 02/06/22 History Sertraline HCl [Zoloft] 50 mg PO HS 10/21/20 02/06/22 History Tamsulosin HCl [Flomax] 0.4 mg PO HS 10/21/20 02/06/22 History allopurinoL [Zyloprim] 100 mg PO DAILY 10/21/20 02/06/22 History risperiDONE [RisperDAL] 0.5 mg PO HS 10/21/20 02/06/22 History Atorvastatin [Lipitor] 40 mg PO HS 30 Days #30 10/28/20 02/06/22 Rx Clopidogrel [Plavix] 75 mg PO DAILY 30 Days #30 tab 10/28/20 02/06/22 Rx Apixaban [Eliquis] 5 mg PO BID 05/09/21 02/06/22 History Cyanocobalamin [Vitamin B-12] 500 mcg PO DAILY 05/09/21 02/06/22 History Metoprolol Succinate (ER) [Toprol 100 mg PO BID 05/09/21 02/06/22 History XL] Thiamine HCl [Vitamin B-1] 100 mg PO DAILY 05/09/21 02/06/22 History Amiodarone [Cordarone] 200 mg PO DAILY 02/06/22 02/06/22 History Loratadine [Claritin] 10 mg PO DAILY 02/06/22 02/06/22 History Menthol [Biofreeze] 1 applic TOPICAL Q6H PRN 02/06/22 02/06/22 History Menthol-Zinc Oxide Oint 1 applic TOPICAL QID PRN 02/06/22 02/06/22 History [Calmoseptine Ointment] Multivit-Min/FA/Lycopen/Lutein 1 tab PO DAILY 02/06/22 02/06/22 History [Centrum Silver Men Tablet] Spironolactone [Aldactone] 25 mg PO DAILY 02/06/22 02/06/22 History glipiZIDE [Glucotrol] 5 mg PO BID 02/06/22 02/06/22 History lisinopriL [Zestril] 2.5 mg PO DAILY 02/06/22 02/06/22 History Allergies Allergy/AdvReac Type Severity Reaction Status Date / Time No Known Allergies Allergy Verified 02/06/22 16:20 Physical Exam Vitals: Vital Signs Temp Pulse Resp BP Pulse Ox 02/06/22 20:02 86 18 150/94 95 02/06/22 17:58 81 02/06/22 17:48 83 02/06/22 16:53 91 147/91 94 L 02/06/22 15:20 98.4 F 94 18 167/120 98 Intake and Output 02/06/22 02/06/22 02/06/22 06:59 14:59 22:59 Other: Weight 98.43 kg Results CBC & Chem 7: 02/06/22 16:14 02/06/22 16:14 Labs: Abnormal Lab Results - Last 24 Hours (Table) 02/06/22 02/06/22 02/06/22 Range/Units 16:14 16:14 16:53 RBC 3.46 L (4.30-5.90) m/uL Hgb 12.5 L (13.0-17.5) gm/dL Hct 34.7 L (39.0-53.0) % MCV 100.4 H (80.0-100.0) fL MCH 36.2 H (25.0-35.0) pg RDW 17.3 H (11.5-15.5) % Lymphocytes # 0.8 L (1.0-4.8) k/uL BUN 22 H (9-20) mg/dL Calcium 8.0 L (8.4-10.2) mg/dL Urine Protein 2+ H (Negative) Urine Blood Trace H (Negative) Ur Leukocyte Esterase Large H (Negative) Urine RBC 7 H (0-5) /hpf Urine WBC >182 H (0-5) /hpf Urine Bacteria Few H (None) /hpf Urine Mucus Rare H (None) /hpf Urine Yeast (Budding) Moderate H (None) /hpf
[2022-02-07] MEDS: INSULIN ASPART (NovoLOG) 100 UNIT/ML VIAL SQ SCH ×4 (05:34→21:11)
[2022-02-07 05:39] LABS: Glucose,Whole Blood 85 mg/dL (70-110)
[2022-02-07] MEDS: OXYBUTYNIN XL 5 MG TAB.ER.24 PO SCH (09:02)
[2022-02-07] MEDS: allopurinoL 100 MG TAB PO SCH (09:02)
[2022-02-07] MEDS: CLOPIDOGREL 75 MG TAB PO SCH (09:02)
[2022-02-07] MEDS: AMIODARONE 200 MG TAB PO SCH (09:02)
[2022-02-07] MEDS: FERROUS SULFATE 325 MG TAB PO SCH (09:02)
[2022-02-07] MEDS: METOPROLOL SUCCINATE (ER) 100 MG TAB.ER.24H PO SCH ×2 (09:03→21:22)
[2022-02-07] MEDS: SPIRONOLACTONE 25 MG TAB PO SCH (09:03)
[2022-02-07] MEDS: LORATADINE 10 MG TAB PO SCH (09:03)
[2022-02-07] MEDS: APIXABAN 5 MG TAB PO SCH ×2 (09:03→21:22)
[2022-02-07] MEDS: FUROSEMIDE 10 MG/ML 4 ML VIAL IV SCH ×2 (09:04→21:22)
[2022-02-07 12:09] LABS: Glucose,Whole Blood 209 mg/dL (70-110)
[2022-02-07] MEDS ORDERED: ACETAMINOPHEN TAB 325 MG TAB PO PRN (14:53)
[2022-02-07] MEDS ORDERED: IPRATROPIUM-ALBUTEROL 3 ML NEB INHALATION PRN (17:10)
--- NOTE | 2022-02-07 17:25 | P.PN ---
Subjective Progress Note Date: 02/07/22 Hospital course: Patient is a very pleasant 71-year-old male with a past medical history of CAD with stents and pacemaker placement, atrial fibrillation on anticoagulation with Eliquis, systolic congestive heart failure with previously known EF 35%, hypertension, hyperlipidemia, type II DM, and COPD. he presented to the emergency room with complaints of shortness of breath. The patient is a somewhat poor historian but stated that he has been experiencing gradually worsening shortness of breath over the past few days accompanied by mild lower extremity edema. Patient underwent full evaluation in the emergency department. Chest x-ray showing emphysematous changes with cardiomegaly. EKG revealing atrial fibrillation with a controlled ventricular rate of 85 bpm with a right b undle branch block. CBC consistent with macrocytic hyperchromic anemia with hemoglobin of 12.5. CMP unremarkable. ProBNP 4300. Troponin less than 0.012. Urinalysis positive for infection with greater than 182 WBCs. Patient was started on IV antibiotic Rocephin as well as IV Lasix for treatment of CHF and admitted under our services with consultation to cardiology. Physical exam: Patient seen and fully evaluated at bedside this morning. Patient resting comfortably and currently denies having any complaints, questions, or needs at this time. Patient denies having any headache, lightheadedness, dizziness, chest pain, palpitations, or experiencing any numbness/tingling/weakness in his extremities. When asked, patient did report "mild" shortness of breath but does report improvement and has 1+ pitting edema to bilateral lower extremities. Vital signs reviewed and stable. General: Nontoxic, no distress and appears stated age. Derm: Skin warm and dry, normal coloration for ethnicity. Head: Atraumatic, normocephalic and symmetric. Eyes: EOMs intact, no lid lag, and anicteric sclera Mouth: no lip lesions, mucus membranes moist Cardiovascular: regular rate and rhythm with normal S1S2, systolic murmur, positive posterior tibial pulses bilaterally, and cap refill < 2 seconds. Lungs: Respirations even, regular, and unlabored on room air. Lungs diminished with no rhonchi, no rales, no wheezing, and no accessory muscle usage. Abdominal: soft, nontender to palpation, no guarding, no appreciable organomegaly Ext: ROM intact. No gross muscle atrophy, 1+ pitting bilateral lower extremity edema, no contractures Neuro: Speech clear, face symmetrical and CN II-XII grossly intact with no noted focal neuro deficits Psych: Alert and oriented to person, place, time, and situation. Appropriate and pleasant affect. Assessment and Plan of Care: Acute on chronic systolic heart failure Shortness of breath, suspected secondary to mild systolic CHF exacerbation History of CAD with stents Chronic Atrial fibrillation on anticoagulation with Eliquis Hypertension Hyperlipidemia -Continue daily cardiac medication regimen consisting of amiodarone, Eliquis, atorvastatin, Plavix, lisinopril, metoprolol, and spironolactone. -BNP 4300 -Chest x-ray revealing mild emphysematous changes and negative for acute cardiopulmonary process -Continue with Lasix IV for the next 24 hours -Monitor I's and O's -Cardiology following, appreciate further recommendations -Cardiac monitoring -Daily weights -As needed duo nebs for shortness of breath and/or wheezing UTI -Continue with IV antibiotics: ceftriaxone pending urine culture and sensitivity report -Bladder management, monitor for postvoid residuals -Follow up urine culture History of CAD with stents Chronic Atrial fibrillation on anticoagulation with Eliquis Hypertension Hyperlipidemia -Continue daily cardiac medication regimen consisting of amiodarone, Eliquis, atorvastatin, Plavix, lisinopril, metoprolol, and spironolactone. BPH Continue daily medication regimen with Flomax CODE STATUS: Full code DVT prophylaxis: Vincent Discussed with: Patient and RN Anticipated discharge date: 1-[address]: Home A total of 34 minutes was spent on the care of this complex patient more than 50% of the time was spent in counseling and care coordination.. I reviewed the documentation as provided by the CARMEN above, who is the original author of this note. I agree with the documented assessment and plan, with the following changes: none Objective - Vital Signs Vital signs: Vital Signs Temp 98.2 F 02/07/22 07:00 Pulse 73 02/07/22 07:00 Resp 16 02/07/22 07:00 BP 165/89 02/07/22 07:00 Pulse Ox 96 02/07/22 07:00 FiO2 Intake & Output 02/06/22 02/07/22 02/07/22 18:59 06:59 18:59 Output Total 1325 Balance -1325 Weight 98.43 kg 96.3 kg Output: Urine 1325 Other: Voiding Method Diaper # Voids 2 - Labs CBC & Chem 7: 02/08/22 06:31 02/08/22 06:31 Labs: Abnormal Lab Results - Last 24 Hours (Table) 02/06/22 02/06/22 02/06/22 Range/Units 16:14 16:14 16:53 RBC 3.46 L (4.30-5.90) m/uL Hgb 12.5 L (13.0-17.5) gm/dL Hct 34.7 L (39.0-53.0) % MCV 100.4 H (80.0-100.0) fL MCH 36.2 H (25.0-35.0) pg RDW 17.3 H (11.5-15.5) % Lymphocytes # 0.8 L (1.0-4.8) k/uL BUN 22 H (9-20) mg/dL Calcium 8.0 L (8.4-10.2) mg/dL Urine Protein 2+ H (Negative) Urine Blood Trace H (Negative) Ur Leukocyte Esterase Large H (Negative) Urine RBC 7 H (0-5) /hpf Urine WBC >182 H (0-5) /hpf Urine Bacteria Few H (None) /hpf Urine Mucus Rare H (None) /hpf Urine Yeast (Budding) Moderate H (None) /hpf
[2022-02-07 17:31] LABS: Glucose,Whole Blood 194 mg/dL (70-110)
[2022-02-07 21:13] LABS: Glucose,Whole Blood 127 mg/dL (70-110)
[2022-02-07] MEDS: TAMSULOSIN 0.4 MG CAP.ER.24H PO SCH (21:22)
[2022-02-07] MEDS: risperiDONE 0.5 MG TAB PO SCH (21:22)
[2022-02-07] MEDS: ATORVASTATIN 40 MG TAB PO SCH (21:22)
[2022-02-07] MEDS: SERTRALINE 50 MG TAB PO SCH (21:22)
--- NOTE | 2022-02-07 22:55 | CONS ---
CONSULTATION CHIEF COMPLAINT: Shortness of breath. HISTORY OF PRESENT ILLNESS: Mr. Guevara is a 71-year-old gentleman with known history of congestive heart failure, who is admitted to hospital with worsening shortness of breath, leg edema, PND, and weight gain. Due to this, a diagnosis of acute exacerbation of chronic congestive heart failure had been made and Cardiology has been consulted for the same. He has history of paroxysmal atrial fibrillation, hypertension, diabetes, dyslipidemia, and chronic systolic heart failure, and currently has an AICD in place. At the time of my evaluation, the patient had been treated with intravenous diuretics with improvement in his symptoms. Admission troponin was negative and the BNP is elevated. PAST MEDICAL HISTORY: Significant for cardiomyopathy with congestive heart failure, status post AICD, nonsustained VT, and atrial fibrillation. MEDICATIONS: At home included: 1. Zestril 2.5 daily. 2. Toprol. 3. Lasix 20 daily. 4. Plavix 75 daily. 5. Eliquis 5 b.i.d. 6. Amiodarone. 7. Lipitor. 8. Aldactone. ALLERGIES: There are no known drug allergies. FAMILY HISTORY: Negative for premature coronary artery disease. SOCIAL HISTORY: Negative for current smoking, EtOH abuse, or drug abuse. REVIEW OF SYSTEMS: HEENT: Unremarkable. CARDIAC: As described above. RESPIRATORY: As described above. GI: Negative. GENITOURINARY: Negative. MUSCULOSKELETAL: Significant for arthritis. PSYCHOSOCIAL: Negative. DERM: Negative. CONSTITUTIONAL: Negative. ONCOLOGICAL: Negative. MACHINE CRATER: Negative. Rest of the system review is not relevant. PHYSICAL EXAMINATION: GENERAL: Comfortable at rest. VITAL SIGNS: Stable. NECK: There is no jugular venous distention. CHEST: Reveals diminished air entry at the bases. HEART: Reveals first and second heart sounds, irregular rhythm and a systolic murmur at the left lower sternal border. ABDOMEN: Soft. Exam of extremities reveal bilateral pitting edema. LABORATORY DATA: Labs show a hemoglobin of 12.5. Creatinine is 1 and potassium is 3.5. ASSESSMENT: 1. Acute exacerbation of chronic systolic heart failure. 2. Cardiomyopathy. 3. Persistent atrial fibrillation. 4. Status post automatic implantable cardioverter defibrillator. 5. Uncontrolled hypertension. PLAN: Continue with IV Lasix. Increase the dose of Zestril to 5 mg daily and continue the Toprol as the blood pressure is persistently elevated. MMODL / IJN: [id number] /
[2022-02-08 06:09] LABS: Glucose,Whole Blood 176 mg/dL (70-110)
[2022-02-08] MEDS: INSULIN ASPART (NovoLOG) 100 UNIT/ML VIAL SQ SCH ×4 (06:36→20:50)
[2022-02-08 08:58] LABS: HCT 37.4 % (39.6-50.0); HGB 12.4 g/dL (13.0-17.0); MCH 33.2 pg (27.0-32.0); MCHC 33.2 g/dL (32.0-37.0); MCV 100.3 fL (80.0-97.0); Mean Platelet Volume 9.5 fL (9.5-12.2); NRBC Per 100 WBC 0 /100 WBCS (0.0-0.0); Platelet Count 195 X 10*3/uL (140-440); RBC 3.73 X 10*6/uL (4.40-5.60); RDW 17.2 % (11.5-14.5); WBC 6.85 X 10*3/uL (4.50-10.00)
[2022-02-08 09:07] LABS: African American GFR (CKD) 63.2 (60.0-200.0); Anion Gap 12.7 mmol/L (10.00-18.00); BUN/Creat Ratio 14.92 Ratio (12.00-20.00); Blood Urea Nitrogen 19.4 mg/dL (9.0-27.0); Calcium 8.6 mg/dL (8.7-10.3); Carbon Dioxide 26.3 mmol/L (20.0-27.5); Magnesium 1.8 mg/dL (1.5-2.4); Non-African American GFR(CKD) 54.5 (60.0-200.0); Potassium 3.2 mmol/L (3.5-5.5)
[2022-02-08] MEDS: METOPROLOL SUCCINATE (ER) 100 MG TAB.ER.24H PO SCH ×2 (09:07→20:51)
[2022-02-08] MEDS: AMIODARONE 200 MG TAB PO SCH (09:07)
[2022-02-08] MEDS: OXYBUTYNIN XL 5 MG TAB.ER.24 PO SCH (09:07)
[2022-02-08] MEDS: LORATADINE 10 MG TAB PO SCH (09:08)
[2022-02-08] MEDS: APIXABAN 5 MG TAB PO SCH ×2 (09:08→20:50)
[2022-02-08] MEDS: allopurinoL 100 MG TAB PO SCH (09:08)
[2022-02-08] MEDS: SPIRONOLACTONE 25 MG TAB PO SCH (09:08)
[2022-02-08] MEDS: FERROUS SULFATE 325 MG TAB PO SCH (09:08)
[2022-02-08] MEDS: CLOPIDOGREL 75 MG TAB PO SCH (09:08)
[2022-02-08] MEDS: FUROSEMIDE 40 MG TAB PO SCH (09:13)
[2022-02-08] MEDS: POTASSIUM CHLORIDE ER 20 MEQ TAB.ER PO SCH ×2 (09:52→20:51)
--- NOTE | 2022-02-08 10:02 | PN ---
PROGRESS NOTE SUBJECTIVE: A 71-year-old gentleman, who is admitted to hospital with acute exacerbation of chronic congestive heart failure. He has known severe LV systolic dysfunction, has an AICD in place. I treated him with intravenous diuretics with significant improvement in his symptoms. This morning, he appears comfortable at rest and is free of chest pain or difficulty in breathing. Leg edema has improved significantly. His urine output is good. He lost over 5 pounds since admission. OBJECTIVE: GENERAL: Comfortable at rest. VITAL SIGNS: Stable. CHEST: Reveals good air entry bilaterally. HEART: Reveals first and second heart sounds. No gallop. No murmur. ABDOMEN: Soft. EXTREMITIES: Did not reveal any edema. Peripheral pulses are felt. LABORATORY DATA: Labs show that the hemoglobin is 12.4, platelet count is 194. Potassium is 3.2, creatinine is 1.3. ASSESSMENT AND PLAN: Acute exacerbation of chronic systolic heart failure, persistent atrial fibrillation, status post AICD, and cardiomyopathy. The patient has responded very well to intravenous diuretics. I am going to switch him to p.o. Lasix, decrease the dose to 40 mg daily. The patient was not taking any at home, was only on Aldactone. Hopefully home over the next 24 hours. Supplement the potassium. MMODL / IJN: [id number] /
[2022-02-08] MEDS: LIDOCAINE 5% PATCH TOPICAL SCH (11:52)
[2022-02-08 12:31] LABS: Glucose,Whole Blood 117 mg/dL (70-110)
[2022-02-08] MEDS ORDERED: HYDROcodone/APAP 5-325MG 1 EACH TAB PO PRN (13:45)
--- NOTE | 2022-02-08 13:51 | P.PN ---
Subjective Progress Note Date: 02/08/22 Hospital course: Patient is a very pleasant 71-year-old male with a past medical history of CAD with stents and pacemaker placement, atrial fibrillation on anticoagulation with Eliquis, systolic congestive heart failure with previously known EF 35%, hypertension, hyperlipidemia, type II DM, and COPD. he presented to the emergency room with complaints of shortness of breath. The patient is a somewhat poor historian but stated that he has been experiencing gradually worsening shortness of breath over the past few days accompanied by mild lower extremity edema. Patient underwent full evaluation in the emergency department. Chest x-ray showing emphysematous changes with cardiomegaly. EKG revealing atrial fibrillation with a controlled ventricular rate of 85 bpm with a right b undle branch block. CBC consistent with macrocytic hyperchromic anemia with hemoglobin of 12.5. CMP unremarkable. ProBNP 4300. Troponin less than 0.012. Urinalysis positive for infection with greater than 182 WBCs. Patient was started on IV antibiotic Rocephin as well as IV Lasix for treatment of CHF and admitted under our services with consultation to cardiology. Physical exam: Patient seen and fully evaluated at bedside this morning. He was sitting up in the chair and reports having a flareup of chronic lower back pain as well as continued mild shortness of breath worsening with exertion. Patient requesting lidocaine patch. Patient currently currently denies having any other comp laints, questions, or needs at this time including headache, lightheadedness, dizziness, chest pain, palpitations, or experiencing any numbness/tingling/weakness in his extremities. Patient was changed over to oral Lasix this morning and is encouraged to increase ambulation in room with plans for likely discharge home in the morning if patient tolerates. Patient had an additional 800 mL of urinary output over the past 24 hours. Potassium 3.2 and replaced. Vital signs reviewed and stable. General: Nontoxic, no distress and appears stated age. Derm: Skin warm and dry, normal coloration for ethnicity. Head: Atraumatic, normocephalic and symmetric. Eyes: EOMs intact, no lid lag, and anicteric sclera Mouth: no lip lesions, mucus membranes moist Cardiovascular: regular rate and rhythm with normal S1S2, systolic murmur, positive posterior tibial pulses bilaterally, and cap refill < 2 seconds. Lungs: Respirations even, regular, and unlabored on room air. Lungs diminished with no rhonchi, no rales, no wheezing, and no accessory muscle usage. Abdominal: soft, nontender to palpation, no guarding, no appreciable organomegaly Ext: ROM intact. No gross muscle atrophy, 1+ pitting bilateral lower extremity edema, no contractures Neuro: Speech clear, face symmetrical and CN II-XII grossly intact with no noted focal neuro deficits Psych: Alert and oriented to person, place, time, and situation. Appropriate and pleasant affect. Assessment and Plan of Care: Acute on chronic systolic heart failure Shortness of breath, suspected secondary to mild systolic CHF exacerbation History of CAD with stents Chronic Atrial fibrillation on anticoagulation with Eliquis Hypertension Hyperlipidemia -Continue daily cardiac medication regimen consisting of amiodarone, Eliquis, atorvastatin, Plavix, lisinopril, metoprolol, and spironolactone. -BNP 4300 -Chest x-ray revealing mild emphysematous changes and negative for acute cardiopulmonary process -Patient was transitioned to oral Lasix 40 mg daily this morning -Monitor I's and O's -Cardiology following, appreciate further recommendations -Cardiac monitoring -Daily weights -As needed duo nebs for shortness of breath and/or wheezing UTI -Continue with IV antibiotics: ceftriaxone pending urine culture and sensitivity report -Bladder management, monitor for postvoid residuals -Follow up urine culture History of CAD with stents Chronic Atrial fibrillation on anticoagulation with Eliquis Hypertension Hyperlipidemia -Continue daily cardiac medication regimen consisting of amiodarone, Eliquis, atorvastatin, Plavix, lisinopril, metoprolol, and spironolactone. BPH Continue daily medication regimen with Flomax CODE STATUS: Full code DVT prophylaxis: Vincent Discussed with: Patient and RN Anticipated discharge date: Tomorrow morning Anticipated discharge place: Home A total of 32 minutes was spent on the care of this complex patient more than 50% of the time was spent in counseling and care coordination.. I reviewed the documentation as provided by the CARMEN above, who is the original author of this note. I agree with the documented assessment and plan, with the following changes: none Objective - Vital Signs Vital signs: Vital Signs Temp 97.9 F 02/08/22 07:15 Pulse 72 02/08/22 07:15 Resp 16 02/08/22 07:15 BP 131/83 02/08/22 07:15 Pulse Ox 94 L 02/08/22 07:15 FiO2 Intake & Output 02/07/22 02/08/22 02/08/22 18:59 06:59 18:59 Intake Total 118 Output Total 500 300 Balance -382 -300 Weight 96.3 kg 97.5 kg Intake: Oral 118 Output: Urine 500 300 Other: Voiding Method Diaper Diaper # Voids 1 - Labs CBC & Chem 7: 02/08/22 06:31 02/08/22 06:31 Labs: Abnormal Lab Results - Last 24 Hours (Table) 02/07/22 02/07/22 02/07/22 Range/Units 12:08 17:30 21:09 RBC (4.40-5.60) X 10*6/uL Hgb (13.0-17.0) g/dL Hct (39.6-50.0) % MCV (80.0-97.0) fL MCH (27.0-32.0) pg RDW (11.5-14.5) % Potassium (3.5-5.5) mmol/L Est GFR (CKD-EPI)NonAf (60.0-200.0) Glucose (70-110) mg/dL POC Glucose (mg/dL) 209 H 194 H 127 H (70-110) mg/dL Calcium (8.7-10.3) mg/dL 02/08/22 02/08/22 02/08/22 Range/Units 06:08 06:31 06:31 RBC 3.73 L (4.40-5.60) X 10*6/uL Hgb 12.4 L (13.0-17.0) g/dL Hct 37.4 L (39.6-50.0) % MCV 100.3 H (80.0-97.0) fL MCH 33.2 H (27.0-32.0) pg RDW 17.2 H (11.5-14.5) % Potassium 3.2 L (3.5-5.5) mmol/L Est GFR (CKD-EPI)NonAf 54.5 L (60.0-200.0) Glucose 117 H (70-110) mg/dL POC Glucose (mg/dL) 176 H (70-110) mg/dL Calcium 8.6 L (8.7-10.3) mg/dL
[2022-02-08 17:07] LABS: Glucose,Whole Blood 125 mg/dL (70-110)
[2022-02-08 19:16] LABS: Glucose,Whole Blood 160 mg/dL (70-110)
[2022-02-08] MEDS: ATORVASTATIN 40 MG TAB PO SCH (20:50)
[2022-02-08] MEDS: risperiDONE 0.5 MG TAB PO SCH (20:51)
[2022-02-08] MEDS: TAMSULOSIN 0.4 MG CAP.ER.24H PO SCH (20:51)
[2022-02-08] MEDS: SERTRALINE 50 MG TAB PO SCH (20:51)
[2022-02-09 05:52] LABS: Glucose,Whole Blood 127 mg/dL (70-110)
[2022-02-09] MEDS: INSULIN ASPART (NovoLOG) 100 UNIT/ML VIAL SQ SCH (05:53)
[2022-02-09] MEDS: METOPROLOL SUCCINATE (ER) 100 MG TAB.ER.24H PO SCH (08:38)
[2022-02-09] MEDS: OXYBUTYNIN XL 5 MG TAB.ER.24 PO SCH (08:38)
[2022-02-09] MEDS: POTASSIUM CHLORIDE ER 20 MEQ TAB.ER PO SCH (08:39)
[2022-02-09] MEDS: SPIRONOLACTONE 25 MG TAB PO SCH ×2 (08:39→10:56)
[2022-02-09] MEDS: LORATADINE 10 MG TAB PO SCH (08:39)
[2022-02-09] MEDS: AMIODARONE 200 MG TAB PO SCH (08:39)
[2022-02-09] MEDS: APIXABAN 5 MG TAB PO SCH (08:39)
[2022-02-09] MEDS: FERROUS SULFATE 325 MG TAB PO SCH (08:39)
[2022-02-09] MEDS: CLOPIDOGREL 75 MG TAB PO SCH (08:39)
[2022-02-09] MEDS: allopurinoL 100 MG TAB PO SCH (08:40)
[2022-02-09] MEDS: FUROSEMIDE 40 MG TAB PO SCH (08:40)
--- NOTE | 2022-02-09 08:47 | P.PN ---
Subjective Patient was admitted with congestive heart failure He was treated with IV Lasix and is doing well and is able to lie flat in bed He was on guidelines at medical treatment with lisinopril and metoprolol as well as spironolactone He also takes amiodarone 200 mg by mouth daily as well as [place] No orthopnea at this time doing better since admission Pulse rate in the 80s, blood pressure 131/83 mmHg Breath sounds are clear no rhonchi no crackles Heart sounds are normal no murmurs or gallops Rhythm is irregular but rates are controlled No JVD No lower extremity edema Impression Known cardiac myopathy Persistent atrial fibrillation Right bundle-branch block, left anterior fascicular block, QRS 160 ms Acute on chronic CHF exacerbation on this admission despite guidelines recommend medical treatment NT proBNP was 4300 Troponin was normal He was treated with IV Lasix and he is mildly hypokalemic Hemoglobin is 12.4 Renal function is 1.1 and 1.3 Plan Hold Lasix Stop lisinopril Switch to ENTRESTO starting tomorrow. We 48 hours after stopping lisinopril Watch renal function while(initiating ENTRESTO and hence Lasix will be on hold at the time of this initiation Continue inpatient monitoring as reinitiate ENTRESTO Continue metoprolol Increase the dose of Aldactone 50 mg by mouth daily Continue atorvastatin and antiplatelet therapy with Plavix Continue [place] for stroke prevention Objective - Vital Signs Vital signs: Vital Signs Temp 97.6 F 02/09/22 02:29 Pulse 78 02/09/22 02:29 Resp 17 02/09/22 02:29 BP 131/83 02/09/22 02:29 Pulse Ox 95 02/09/22 02:29 FiO2 Intake & Output 02/08/22 02/09/22 02/09/22 18:59 06:59 18:59 Intake Total 118 Output Total 225 Balance 118 -225 Weight 98 kg Intake: Oral 118 Output: Urine 225 Other: Voiding Method Diaper Diaper # Voids 1 - Labs CBC & Chem 7: 02/08/22 06:31 02/08/22 06:31 Labs: Abnormal Lab Results - Last 24 Hours (Table) 02/08/22 02/08/22 02/08/22 Range/Units 06:31 06:31 12:29 RBC 3.73 L (4.40-5.60) X 10*6/uL Hgb 12.4 L (13.0-17.0) g/dL Hct 37.4 L (39.6-50.0) % MCV 100.3 H (80.0-97.0) fL MCH 33.2 H (27.0-32.0) pg RDW 17.2 H (11.5-14.5) % Potassium 3.2 L (3.5-5.5) mmol/L Est GFR (CKD-EPI)NonAf 54.5 L (60.0-200.0) Glucose 117 H (70-110) mg/dL POC Glucose (mg/dL) 117 H (70-110) mg/dL Calcium 8.6 L (8.7-10.3) mg/dL 02/08/22 02/08/22 02/09/22 Range/Units 17:05 19:15 05:50 RBC (4.40-5.60) X 10*6/uL Hgb (13.0-17.0) g/dL Hct (39.6-50.0) % MCV (80.0-97.0) fL MCH (27.0-32.0) pg RDW (11.5-14.5) % Potassium (3.5-5.5) mmol/L Est GFR (CKD-EPI)NonAf (60.0-200.0) Glucose (70-110) mg/dL POC Glucose (mg/dL) 125 H 160 H 127 H (70-110) mg/dL Calcium (8.7-10.3) mg/dL
[2022-02-09 09:04] LABS: MCH 34.1 pg (27.0-32.0); MCHC 33.3 g/dL (32.0-37.0); MCV 102.3 fL (80.0-97.0); Mean Platelet Volume 9.7 fL (9.5-12.2); NRBC Per 100 WBC 0 /100 WBCS (0.0-0.0); Platelet Count 202 X 10*3/uL (140-440); RBC 3.52 X 10*6/uL (4.40-5.60); RDW 17.1 % (11.5-14.5); WBC 6.35 X 10*3/uL (4.50-10.00)
[2022-02-09 09:08] VITALS: BP 120/74; PULSE 81; RESP 18; TEMP 97.4
[2022-02-09 09:19] LABS: African American GFR (CKD) 53.1 (60.0-200.0); Anion Gap 12.9 mmol/L (10.00-18.00); Calcium 8.5 mg/dL (8.7-10.3); Carbon Dioxide 26.1 mmol/L (20.0-27.5); Magnesium 1.8 mg/dL (1.5-2.4); Non-African American GFR(CKD) 45.9 (60.0-200.0); Potassium 3.9 mmol/L (3.5-5.5)
--- NOTE | 2022-02-09 11:00 | P.PN ---
Progress Note - Text Patient will stay in the hospital for a sedation of ENTRESTO for the next 48 hours Daily electrolyte and creatinine check Hold Lasix during initiation of ENTRESTO Watch blood pressure Continue all other medications Last dose of lisinopril was on Wednesday morning ENTRESTO will start tomorrow
[2022-02-09] MEDS: LIDOCAINE 5% PATCH TOPICAL SCH (11:55)
--- NOTE | 2022-02-09 12:01 | P.DS ---
Providers Date of admission: 02/06/22 18:38 Expected date of discharge: 02/09/22 Attending physician: Miladys Lee MD Consults: 02/06/22 18:38 Consult Physician Routine Consulting Provider: [facility] Consult Reason/Comments: CHF [place] Do you want consulting provider notified?: Yes, Notify in am Primary care physician: Jessica Salinas Hospital Course: Discharge Diagnosis: Acute on chronic systolic heart failure. Patient underwent successful IV diuresis and home Aldactone and Lasix dosages were increased. Cardiology initially recommending starting patient on Entresto and monitoring an additional 2 days. Patient very adamant regarding discharge stating he was told by his landlord that he only has until today to pay his rent where he faces eviction. Discussed with public address announcer, patient to resume lisinopril 2.5 mg daily, Lasix 40 mg daily and spironolactone 50 mg daily. Patient to follow-up with PCP in 1-2 days and cardiology in 1 week. Shortness of breath, suspected secondary to mild systolic CHF exacerbation History of CAD with stents. Continue daily cardiac medication regimen consisting of amiodarone, Eliquis, atorvastatin, Plavix, lisinopril, metoprolol, and spironolactone. Chronic Atrial fibrillation continue anticoagulation with Eliquis and anti- arrhythmic amiodarone. Hypertension, monitor vital signs and continue daily medication regimen with lisinopril and metoprolol. Hyperlipidemia continue daily medication regimen with atorvastatin.. UTI, patient received 2 days of Rocephin and being discharged home on Ceftin 500 mg for an additional 3 days to total a treatment course of 5 days of antibiotic therapy for treatment of UTI. BPH. Continue daily medication regimen with [facility] Course: Patient is a very pleasant 71-year-old male with a past medical history of CAD with stents and pacemaker placement, atrial fibrillation on anticoagulation with Eliquis, systolic congestive heart failure with previously known EF 35%, hypertension, hyperlipidemia, type II DM, and COPD. he presented to the emergency room with complaints of shortness of breath. The patient is a somewhat poor historian but stated that he has been experiencing gradually worsening shortness of breath over the past few days accompanied by mild lower extremity edema. Patient underwent full evaluation in the emergency department. Chest x-ray showing emphysematous changes with cardiomegaly. EKG revealing atrial fibrillation with a controlled ventricular rate of 85 bpm with a right bundle branch block. CBC consistent with macrocytic hyperchromic anemia with hemoglobin of 12.5. CMP unremarkable. ProBNP 4300. Troponin less than 0.012. Urinalysis positive for infection with greater than 182 WBCs. Patient was started on IV antibiotic Rocephin as well as IV Lasix for treatment of CHF and admitted under our services with consultation to cardiology. Patient underwent successful IV diuresis and home Aldactone and Lasix dosages were increased. Patient's condition stabilized and he was free from any complaints. Cardiology initially recommending starting patient on Entresto and monitoring an additional 2 days. Patient very adamant regarding discharge stating he was told by his landlord that he only has until today to pay his rent where he faces eviction. Discussed with public address announcer, patient to resume lisinopril 2.5 mg daily, Lasix 40 mg daily and spironolactone 50 mg daily. Patient to follow-up with PCP in 1-2 days and cardiology in 1 week. Physical exam: Vital signs reviewed and stable. General: Nontoxic, no distress and appears stated age. Derm: Skin warm and dry, normal coloration for ethnicity. Head: Atraumatic, normocephalic and symmetric. Eyes: EOMs intact, no lid lag, and anicteric sclera Mouth: no lip lesions, mucus membranes moist Cardiovascular: regular rate and rhythm with normal S1S2, systolic murmur, positive posterior tibial pulses bilaterally, and cap refill < 2 seconds. Lungs: Respirations even, regular, and unlabored on room air. Lungs diminished with no rhonchi, no rales, no wheezing, and no accessory muscle usage. Abdominal: soft, nontender to palpation, no guarding, no appreciable organomegaly Ext: ROM intact. No gross muscle atrophy, 1+ pitting bilateral lower extremity edema, no contractures Neuro: Speech clear, face symmetrical and CN II-XII grossly intact with no noted focal neuro deficits Psych: Alert and oriented to person, place, time, and situation. Appropriate and pleasant affect. A total of 44 minutes of time were spent preparing this complex discharge summary. Pt was discharged on 02/09/22 at 11:59 AM. Patient Condition at Discharge: Stable Plan - Discharge Summary Discharge Rx Participant: No New Discharge Prescriptions: New cefUROXime axetiL [Ceftin] 500 mg PO BID 3 Days #6 tab Continue Ferrous Sulfate [Iron] 325 mg PO DAILY Oxybutynin Xl [Ditropan XL] 5 mg PO DAILY risperiDONE [RisperDAL] 0.5 mg PO HS Sertraline HCl [Zoloft] 50 mg PO HS Tamsulosin HCl [Flomax] 0.4 mg PO HS Metoprolol Succinate (ER) [Toprol XL] 100 mg PO BID Apixaban [Eliquis] 5 mg PO BID glipiZIDE [Glucotrol] 5 mg PO BID Loratadine [Claritin] 10 mg PO DAILY Menthol-Zinc Oxide Oint [Calmoseptine Ointment] 1 applic TOPICAL QID PRN PRN Reason: irritation Multivit-Min/FA/Lycopen/Lutein [Centrum Silver Men Tablet] 1 tab PO DAILY Spironolactone [Aldactone] 50 mg PO DAILY 30 Days #60 tab allopurinoL [Zyloprim] 100 mg PO DAILY Ergocalciferol [Vitamin D2 (1250 Mcg = 83960 Iu)] 1,250 mcg PO QMONTHLY Clopidogrel [Plavix] 75 mg PO DAILY 30 Days #30 tab Atorvastatin [Lipitor] 40 mg PO HS 30 Days #30 Cyanocobalamin [Vitamin B-12] 500 mcg PO DAILY Thiamine HCl [Vitamin B-1] 100 mg PO DAILY Amiodarone [Cordarone] 200 mg PO DAILY lisinopriL [Zestril] 2.5 mg PO DAILY Menthol [Biofreeze] 1 applic TOPICAL Q6H PRN PRN Reason: Pain Changed Furosemide [Lasix] 40 mg PO DAILY 30 Days #60 tab Discharge Medication List Ergocalciferol [Vitamin D2 (1250 Mcg = 56942 Iu)] 1,250 mcg PO QMONTHLY 10/21/20 [History] Ferrous Sulfate [Iron] 325 mg PO DAILY 10/21/20 [History] Oxybutynin Xl [Ditropan XL] 5 mg PO DAILY 10/21/20 [History] Sertraline HCl [Zoloft] 50 mg PO HS 10/21/20 [History] Tamsulosin HCl [Flomax] 0.4 mg PO HS 10/21/20 [History] allopurinoL [Zyloprim] 100 mg PO DAILY 10/21/20 [History] risperiDONE [RisperDAL] 0.5 mg PO HS 10/21/20 [History] Atorvastatin [Lipitor] 40 mg PO HS 30 Days #30 10/28/20 [Rx] Clopidogrel [Plavix] 75 mg PO DAILY 30 Days #30 tab 10/28/20 [Rx] Apixaban [Eliquis] 5 mg PO BID 05/09/21 [History] Cyanocobalamin [Vitamin B-12] 500 mcg PO DAILY 05/09/21 [History] Metoprolol Succinate (ER) [Toprol XL] 100 mg PO BID 05/09/21 [History] Thiamine HCl [Vitamin B-1] 100 mg PO DAILY 05/09/21 [History] Amiodarone [Cordarone] 200 mg PO DAILY 02/06/22 [History] Loratadine [Claritin] 10 mg PO DAILY 02/06/22 [History] Menthol [Biofreeze] 1 applic TOPICAL Q6H PRN 02/06/22 [History] Menthol-Zinc Oxide Oint [Calmoseptine Ointment] 1 applic TOPICAL QID PRN 02/06/22 [History] Multivit-Min/FA/Lycopen/Lutein [Centrum Silver Men Tablet] 1 tab PO DAILY 02/06/22 [History] glipiZIDE [Glucotrol] 5 mg PO BID 02/06/22 [History] lisinopriL [Zestril] 2.5 mg PO DAILY 02/06/22 [History] Furosemide [Lasix] 40 mg PO DAILY 30 Days #60 tab 02/09/22 [Rx] Spironolactone [Aldactone] 50 mg PO DAILY 30 Days #60 tab 02/09/22 [Rx] cefUROXime axetiL [Ceftin] 500 mg PO BID 3 Days #6 tab 02/09/22 [Rx] Follow up Appointment(s)/Referral(s): Favian Piedra MD [STAFF PHYSICIAN] - 1 Week Brad Lopez MD [Primary Care Provider] - 1-2 days Ambulatory/Diagnostic Orders: Basic Metabolic Panel [LAB.AMB] Time Frame: 3 Days, Location: None Selected Patient Instructions/Handouts: Heart Failure (GEN) Activity/Diet/Wound Care/Special Instructions: Activity: As tolerated. Take breaks as needed. Diet: Heart healthy and carb consistent diet. Avoid salts, or foods with hidden salts such as canned or boxed foods and frozen dinners. Extra salt makes your heart work harder and traps the fluid in your body for longer. Special Instructions: Take all of your medications as directed and remember to keep all of your doctor's appointments and follow-up as needed. Thank you for allowing us to participate in your care, it was truly a pleasure having you for our patient!!! Discharge Disposition: HOME SELF-CARE
[2022-02-09 12:07] LABS: Chol/HDL Ratio 3.33 Ratio; LDL Cholesterol,Calculated 38.1 mg/dL (0.0-131.0)
[2022-02-09 12:15] LABS: Glucose,Whole Blood 252 mg/dL (70-110)
[2022-02-10] MEDS ORDERED: SACUBITRIL/VALSARTAN 24 MG-26 MG TABLET PO SCH (07:00)
== END 2022-02-09 13:55 | disposition home or self-care (01) ==
LOC: EC 14:59 → 6NMEDSUR 18:38 → UNDODISOB 02-07 14:15
PROVIDERS: ADMIT Internal Medicine; ATTEND Internal Medicine
DX: I11.0 Hypertensive heart disease with heart failure (principal); I50.23 Acute on chronic systolic (congestive) heart failure; N39.0 Urinary tract infection, site not specified; E11.9 Type 2 diabetes mellitus without complications; F20.9 Schizophrenia, unspecified; I42.9 Cardiomyopathy, unspecified; I25.10 Atherosclerotic heart disease of native coronary artery without angina pectoris; E78.5 Hyperlipidemia, unspecified; I48.19 Other persistent atrial fibrillation; M10.9 Gout, unspecified; F32.A Depression, unspecified; F41.9 Anxiety disorder, unspecified; N40.0 Benign prostatic hyperplasia without lower urinary tract symptoms; Z87.891 Personal history of nicotine dependence; Z87.440 Personal history of urinary (tract) infections; Z95.5 Presence of coronary angioplasty implant and graft; Z96.643 Presence of artificial hip joint, bilateral; Z79.899 Other long term (current) drug therapy; Z79.84 Long term (current) use of oral hypoglycemic drugs; Z79.01 Long term (current) use of anticoagulants; Z95.810 Presence of automatic (implantable) cardiac defibrillator; Z79.02 Long term (current) use of antithrombotics/antiplatelets
CPT/HCPCS: 96366 ×3; 96372 ×2; 96376; 96365; 96375; 99285; 36415; 94640 ×2; 93005; 83880; 80061; 80053; 80048 ×2; 84443; 83690; 83735 ×3; 84484; 85025; 85027 ×2; 81001; 83036; 71046; G0378 ×5; J1940 ×2; J0696 ×3

== ENCOUNTER 2022-10-01 15:38 | Inpatient (IN) | payer OTHER ==
[2022-10-01] MEDS ORDERED: IPRATROPIUM-ALBUTEROL 3 ML NEB INHALATION STA (17:40)
--- NOTE | 2022-10-01 17:48 | ED ---
General Adult HPI - General Chief complaint: Back Pain/Injury Stated complaint: back pain Time Seen by Provider: 10/01/22 17:06 Source: patient, RN notes reviewed Mode of arrival: EMS - History of Present Illness Initial comments: 72-year-old male presents to the emergency department chief complaint of low back pain and shortness of breath. He states that he is unsure when this started but it has been going on for quite a while. He states today that he sat on the couch and feels like this worsens the pain. He also admits to increased shortness of breath, cough. He reports that this has been going on for the past 3-4 days. She reports worsening pain in his back when he coughs. He denies fever, chills. He states he is on Lasix but is unsure what other medications he is on. Past medical history includes hypertension, CHF, diabetes. Denies loss of bowel or bladder function, saddle anesthesia. - Related Data Home Medications Medication Instructions Recorded Confirmed Ergocalciferol [Vitamin D2 (1250 50,000 units PO Q30D 10/21/20 10/01/22 Mcg = 16065 Iu)] Ferrous Sulfate [Iron] 325 mg PO DAILY 10/21/20 10/01/22 Oxybutynin Xl [Ditropan XL] 5 mg PO DAILY 10/21/20 10/01/22 Sertraline HCl [Zoloft] 50 mg PO HS 10/21/20 10/01/22 Tamsulosin HCl [Flomax] 0.4 mg PO HS 10/21/20 10/01/22 allopurinoL [Zyloprim] 100 mg PO DAILY 10/21/20 10/01/22 risperiDONE [RisperDAL] 0.5 mg PO HS 10/21/20 10/01/22 Apixaban [Eliquis] 5 mg PO BID 05/09/21 10/01/22 Cyanocobalamin [Vitamin B-12] 500 mcg PO DAILY 05/09/21 10/01/22 Metoprolol Succinate (ER) [Toprol 100 mg PO BID 05/09/21 10/01/22 XL] Thiamine HCl [Vitamin B-1] 100 mg PO DAILY 05/09/21 10/01/22 Amiodarone [Cordarone] 200 mg PO DAILY 02/06/22 10/01/22 Loratadine [Claritin] 10 mg PO DAILY 02/06/22 10/01/22 Menthol [Biofreeze] 1 applic TOPICAL Q6H PRN 02/06/22 10/01/22 Multivit-Min/FA/Lycopen/Lutein 1 tab PO DAILY 02/06/22 10/01/22 [Centrum Silver Men Tablet] glipiZIDE [Glucotrol] 5 mg PO BID 02/06/22 10/01/22 Acetaminophen Tab [Tylenol Tab] 1,000 mg PO TID PRN 10/01/22 10/01/22 Furosemide [Lasix] 40 mg PO DAILY 10/01/22 10/01/22 Menthol-Zinc Oxide Oint 1 applic TOPICAL QID PRN 10/01/22 10/01/22 [Calmoseptine Ointment] Sacubitril/Valsartan [Entresto 24 1 tab PO BID 10/01/22 10/01/22 mg-26 mg Tablet] Spironolactone [Aldactone] 50 mg PO DAILY 10/01/22 10/01/22 Previous Rx's Medication Instructions Recorded Atorvastatin [Lipitor] 40 mg PO HS 30 Days #30 10/28/20 Clopidogrel [Plavix] 75 mg PO DAILY 30 Days #30 tab 10/28/20 Allergies Allergy/AdvReac Type Severity Reaction Status Date / Time No Known Allergies Allergy Verified 10/01/22 21:22 Review of Systems ROS Statement: Those systems with pertinent positive or pertinent negative responses have been documented in the HPI. ROS Other: All systems not noted in ROS Statement are negative. Past Medical History Past Medical History: Atrial Fibrillation, Coronary Artery Disease (CAD), Heart Failure, Diabetes Mellitus, Hyperlipidemia, Hypertension Additional Past Medical History / Comment(s): See Dr Piedra's H&P. "Feet cold sometimes". Gout. Hx UTI and kidney infection with Covid. History of Any Multi-Drug Resistant Organisms: None Reported Past Surgical History: Heart Catheterization With Stent, Orthopedic Surgery, Pacemaker Additional Past Surgical History / Comment(s): 2 STENTS DEC 2020, left hip surgery X2. Past Anesthesia/Blood Transfusion Reactions: No Reported Reaction, Postoperative Nausea & Vomiting (PONV) Additional Past Anesthesia/Blood Transfusion Reaction / Comment(s): UNKNOWN FAMILY HX. Date of Last Stent Placement:: DEC 2020 Type of Cardiac Device: Unknown Device Placement Date:: Unknown Past Psychological History: Anxiety, Depression Smoking Status: Former smoker Past Alcohol Use History: None Reported Past Drug Use History: None Reported - Past Family History Mother Family Medical History: Cancer Brother(s) Family Medical History: Cancer Additional Family Medical History / Comment(s): Lung cancer. Father History Unknown: Yes Family Medical History: Hyperlipidemia General Exam Limitations: no limitations General appearance: alert, in no apparent distress Head exam: Present: atraumatic, normocephalic, normal inspection Eye exam: Present: normal appearance, PERRL, EOMI. Absent: scleral icterus, conjunctival injection, periorbital swelling ENT exam: Present: normal exam, mucous membranes moist Neck exam: Present: normal inspection. Absent: tenderness, meningismus, lymphadenopathy Respiratory exam: Present: wheezes, rales. Absent: respiratory distress, stridor, chest wall tenderness Cardiovascular Exam: Present: regular rate, normal rhythm, normal heart sounds. Absent: systolic murmur, diastolic murmur, rubs, gallop, clicks GI/Abdominal exam: Present: distended, normal bowel sounds. Absent: tenderness, guarding, rebound, rigid Extremities exam: Present: full ROM, normal capillary refill, pedal edema (2+). Absent: tenderness, joint swelling, calf tenderness Back exam: Present: normal inspection Neurological exam: Present: alert, oriented X3 Psychiatric exam: Present: normal affect, normal mood Skin exam: Present: warm, dry, intact, normal color. Absent: rash Course Vital Signs 10/01/22 10/01/22 10/01/22 15:59 18:28 20:27 Temperature 97.8 F Pulse Rate 93 87 96 Respiratory 18 16 Rate Blood Pressure 151/82 129/83 O2 Sat by Pulse 99 98 Oximetry 10/01/22 20:38 Temperature Pulse Rate 98 Respiratory Rate Blood Pressure O2 Sat by Pulse Oximetry Medical Decision Making - Medical Decision Making Was pt. sent in by a medical professional or institution (ANU Klein, CONSULTING PSYCHOLOGIST, urgent care, hospital, or custodial...) When possible be specific @ -No Did you speak to anyone other than the patient for history (EMS, parent, family, police, friend...)? What history was obtained from this source @ -ems Did you review nursing and triage notes (agree or disagree)? Why? @ -I reviewed and agree with nursing and triage notes Were old charts reviewed (outside hosp., previous admission, EMS record, old EKG, old radiological studies, urgent care reports/EKG's, custodial records)? Report findings @ -No old charts were reviewed Differential Diagnosis (chest pain, altered mental status, abdominal pain women, abdominal pain men, vaginal bleeding, weakness, fever, dyspnea, syncope, headache, dizziness, GI bleed, back pain, seizure, CVA, palpatations, mental health, musculoskeletal)? @ -Differential Back Pain: Strain, zoster, cauda equina syndrome, epidural abscess, vertebral osteomyelitis, discitis, fracture, subluxation, disc herniation, DJD, spinal stenosis, dissection, AAA, pancreatitis, peptic ulcer disease, pyelonephritis, kidney stone, this is not meant to be an all-inclusive list. Differential Dyspnea: Coronary syndrome, arrhythmia, tamponade, asthma, COPD, pulmonary embolism, pneumonia, pneumothorax, pulmonary effusion, anaphylaxis, diabetic ketoacidosis, flailed chest, pulmonary contusion, diaphragmatic rupture, anemia, neuromuscular, this is not meant to be an all-inclusive list. EKG interpreted by me (3pts min.). @ -EKG at 1759 shows A. fib rate 98, QRS 152 X-rays interpreted by me (1pt min.). @ -Chest x-ray shows fine reticular pattern CT interpreted by me (1pt min.). @ -None done U/S interpreted by me (1pt. min.). @ -None done What testing was considered but not performed or refused? (CT, X-rays, U/S, labs)? Why? @ -None What meds were considered but not given or refused? Why? @ -None Did you discuss the management of the patient with other professionals (professionals i.e. , PA, CONSULTING PSYCHOLOGIST, lab, RT, psych nurse, social media specialist, control room operator, te acher, ethics officer, registered nurse hh case manager)? Give summary @ -management discussed with Hailee Aleman with [facility] who is accepting of the admission with cardiology and nephrology on consult Was smoking cessation discussed for >3mins.? @ -No Was critical care preformed (if so, how long)? @ -No Were there social determinants of health that impacted care today? How? (Homelessness, low income, unemployed, alcoholism, drug addiction, transportation, low edu. Level, literacy, decrease access to med. care, group home, rehab)? @ -No Was there de-escalation of care discussed even if they declined (Discuss DNR or withdrawal of care, Hospice)? DNR status @ -No What co-morbidities impacted this encounter? (DM, HTN, Smoking, COPD, CAD, Cancer, CVA, ARF, Chemo, Hep., AIDS, mental health diagnosis, sleep apnea, morbid obesity)? @ -None Was patient admitted / discharged? Hospital course, mention meds given and route, prescriptions, significant lab abnormalities, going to OR and other [facility] info. @ -Admitted. Patient presented to emergency department chief complaint of low back pain and shortness of breath. Patient has overall poor historian. He is unsure when this started. Patient has a history of type 2 diabetes, A. fib, CHF. Patient's creatinine is 2.07 which is bumped from that in February of 1.5. CBC shows a CBC of 10.8, hemoglobin 10.2, MCV 111, marked macrocytosis; CMP CO2 sodium and 36, potassium 5.5, chloride 111, CO2 13 patient has a history of COPD, troponin negative, BNP 3230. Chest X-ray shows subtle fine reticular pattern which may represent pulmonary edema and patient was given a DuoNeb treatment which she states somewhat improved his shortness of breath. CT abdomen and pelvis performed showed prominent stool burden. Patient will be admitted for CHF exacerbation, RAJAN. This was discussed with Hailee Aleman with [facility] is accepting of the admission with cardiology and nephrology consult. We will hold off on Lasix at this time due to the patient's creatinine. Patient stable at time of admission. Undiagnosed new problem with uncertain prognosis? @ -No Drug Therapy requiring intensive monitoring for toxicity (Heparin, Nitro, Insulin, Cardizem)? @ -No Were any procedures done? @ -No Diagnosis/symptom? @ -CHF Acute, or Chronic, or Acute on Chronic? @ -Acute Uncomplicated (without systemic symptoms) or Complicated (systemic symptoms)? @ -Uncomplicated Side effects of treatment? @ -No Exacerbation, Progression, or Severe Exacerbation? @ -No Poses a threat to life or bodily function? How? (Chest pain, [place], [place], pneumonia, PE, COPD, DKA, ARF, appy, cholecystitis, CVA, Diverticulitis, Homicidal, Suicidal, threat to staff... and all critical care pts) @ -No - Lab Data Result diagrams: 10/01/22 17:46 10/01/22 17:46 Lab Results 10/01/22 10/01/22 10/01/22 Range/Units 17:46 17:46 17:46 WBC 10.8 H (3.8-10.6) k/uL RBC 2.71 L (4.30-5.90) m/uL Hgb 10.2 L (13.0-17.5) gm/dL Hct 30.3 L (39.0-53.0) % MCV 111.8 H (80.0-100.0) fL MCH 37.5 H (25.0-35.0) pg MCHC 33.5 (31.0-37.0) g/dL RDW 17.9 H (11.5-15.5) % Plt Count 152 (150-450) k/uL MPV 8.0 Neutrophils % 80 % Lymphocytes % 7 % Monocytes % 8 % Eosinophils % 3 % Basophils % 0 % Neutrophils # 8.6 H (1.3-7.7) k/uL Lymphocytes # 0.8 L (1.0-4.8) k/uL Monocytes # 0.8 (0-1.0) k/uL Eosinophils # 0.3 (0-0.7) k/uL Basophils # 0.0 (0-0.2) k/uL Manual Slide Review Performed Hypochromasia Slight Poikilocytosis Slight Anisocytosis Slight Macrocytosis Marked A PT 10.9 (9.0-12.0) sec INR 1.0 (<1.2) APTT 28.2 (22.0-30.0) sec Sodium 136 L (137-145) mmol/L Potassium 5.5 H (3.5-5.1) mmol/L Chloride 111 H (98-107) mmol/L Carbon Dioxide 13 L (22-30) mmol/L Anion Gap 12 mmol/L BUN 71 H (9-20) mg/dL Creatinine 2.07 H (0.66-1.25) mg/dL Est GFR (CKD-EPI)AfAm 36 (>60 ml/min/1.73 sqM) Est GFR (CKD-EPI)NonAf 31 (>60 ml/min/1.73 sqM) Glucose 119 H (74-99) mg/dL Plasma Lactic Acid Ilya (0.7-2.0) mmol/L Calcium 8.4 (8.4-10.2) mg/dL Total Bilirubin 0.6 (0.2-1.3) mg/dL AST 32 (17-59) U/L ALT 20 (4-49) U/L Alkaline Phosphatase 58 (38-126) U/L Troponin I (0.000-0.034) ng/mL NT-Pro-B Natriuret Pep 3230 pg/mL Total Protein 9.0 H (6.3-8.2) g/dL Albumin 3.7 (3.5-5.0) g/dL 10/01/22 10/01/22 Range/Units 17:46 17:46 WBC (3.8-10.6) k/uL RBC (4.30-5.90) m/uL Hgb (13.0-17.5) gm/dL Hct (39.0-53.0) % MCV (80.0-100.0) fL MCH (25.0-35.0) pg MCHC (31.0-37.0) g/dL RDW (11.5-15.5) % Plt Count (150-450) k/uL MPV Neutrophils % % Lymphocytes % % Monocytes % % Eosinophils % % Basophils % % Neutrophils # (1.3-7.7) k/uL Lymphocytes # (1.0-4.8) k/uL Monocytes # (0-1.0) k/uL Eosinophils # (0-0.7) k/uL Basophils # (0-0.2) k/uL Manual Slide Review Hypochromasia Poikilocytosis Anisocytosis Macrocytosis PT (9.0-12.0) sec INR (<1.2) APTT (22.0-30.0) sec Sodium (137-145) mmol/L Potassium (3.5-5.1) mmol/L Chloride (98-107) mmol/L Carbon Dioxide (22-30) mmol/L Anion Gap mmol/L BUN (9-20) mg/dL Creatinine (0.66-1.25) mg/dL Est GFR (CKD-EPI)AfAm (>60 ml/min/1.73 sqM) Est GFR (CKD-EPI)NonAf (>60 ml/min/1.73 sqM) Glucose (74-99) mg/dL Plasma Lactic Acid Ilya 0.9 (0.7-2.0) mmol/L Calcium (8.4-10.2) mg/dL Total Bilirubin (0.2-1.3) mg/dL AST (17-59) U/L ALT (4-49) U/L Alkaline Phosphatase (38-126) U/L Troponin I <0.012 (0.000-0.034) ng/mL NT-Pro-B Natriuret Pep pg/mL Total Protein (6.3-8.2) g/dL Albumin (3.5-5.0) g/dL Disposition Clinical Impression: CHF exacerbation Disposition: ADMITTED IP TO THIS HOSP Condition: Stable Is patient prescribed a controlled substance at d/c from ED?: No Referrals: Brad Lopez MD [Primary Care Provider] - 1-2 days
[2022-10-01 18:19] LABS: Anisocytosis Slight; Basophils % (A) 0 %; Eosinophils # (A) 0.3 k/uL (0-0.7); Eosinophils % (A) 3 %; HCT 30.3 % (39.0-53.0); HGB 10.2 gm/dL (13.0-17.5); Hypochromasia Slight; Lymphocytes # (A) 0.8 k/uL (1.0-4.8); Lymphocytes % (A) 7 %; MCH 37.5 pg (25.0-35.0); MCHC 33.5 g/dL (31.0-37.0); MCV 111.8 fL (80.0-100.0); Macrocytosis Marked; Monocytes # (A) 0.8 k/uL (0-1.0); Monocytes % (A) 8 %; Neutrophils # (A) 8.6 k/uL (1.3-7.7); Neutrophils % (A) 80 %; Platelet Count 152 k/uL (150-450); Poikilocytosis Slight; RBC 2.71 m/uL (4.30-5.90); RDW 17.9 % (11.5-15.5); WBC 10.8 k/uL (3.8-10.6)
[2022-10-01 18:27] LABS: Partial Thromboplastin Time 28.2 sec (22.0-30.0); Prothrombin Time 10.9 sec (9.0-12.0)
[2022-10-01 18:28] LABS: ALT 20 U/L (4-49); African American GFR (CKD) 36 (>60 ml/min/1.73 sqM); Albumin 3.7 g/dL (3.5-5.0); Anion Gap 12 mmol/L; Blood Urea Nitrogen 71 mg/dL (9-20); Calcium 8.4 mg/dL (8.4-10.2); Carbon Dioxide 13 mmol/L (22-30); Chloride 111 mmol/L (98-107); Glucose 119 mg/dL (74-99); Non-African American GFR(CKD) 31 (>60 ml/min/1.73 sqM); Sodium 136 mmol/L (137-145); Total Bilirubin 0.6 mg/dL (0.2-1.3)
[2022-10-01 18:30] LABS: AST 32 U/L (17-59); Alkaline Phosphatase 58 U/L (38-126); Potassium 5.5 mmol/L (3.5-5.1)
[2022-10-01 18:36] LABS: NT-Pro-B-Type Natriuretic Pept 3230 pg/mL
[2022-10-01] MEDS ORDERED: ACETAMINOPHEN TAB 325 MG TAB PO STA (19:31)
[2022-10-01] MEDS ORDERED: LIDOCAINE 5% PATCH TOPICAL ONE (19:45)
--- NOTE | 2022-10-01 20:22 | XR ---
EXAMINATION: XR chest 2V: 10/01/2022 7:32 PM CLINICAL INDICATION: difficulty breathing. ED patient TECHNIQUE: Departmental protocol COMPARISON: 02/06/2022 FINDINGS: There is a subtle finding, a fine reticular pattern of increased density symmetrically throughout the lower lung zones which silhouette the pulmonary vasculature to a mild degree. This may be within the limits of normal but can correlate with a clinical diagnosis of mild interstitial phase pulmonary ed efrain. Otherwise, the lungs are well-expanded and clear. The pleural spaces are negative. EKG leads and cardiac pacemaker. The cardiac silhouette is mildly enlarged. Aortic ectasia redemonstr ated. The skeletal structures and soft tissues are negative for acute findings. IMPRESSION: Subtle fine reticular pattern as discussed.
--- NOTE | 2022-10-01 21:47 | CT ---
EXAMINATION TYPE: CT abdomen pelvis wo con DATE OF EXAM: 10/01/2022 HISTORY: FLANK PAIN AND AMS CT DLP: 1376.4 mGycm. Automated Exposure Control for Dose Reduction was Utilized. TECHNIQUE: CT scan of the abdomen and pelvis is performed without oral or IV contrast. COMPARISON: NONE FINDINGS: Within the limitations of a non-contrast study, the following observations are made. LUNG BASES: No significant abnormality is appreciated. LIVER/GB: No significant abnormality is appreciated. PANCREAS: No significant abnormality is seen. SPLEEN: No significant abnormality is seen. ADRENALS: No significant abnormality is seen. KIDNEYS, URETERS: No acute process. Left ureter is larger than the right ureter. BOWEL: No significant abnormality is seen. Prominent pancolonic stool volume noted. GENITAL ORGANS: No gross abnormality seen. LYMPH NODES: No greater than 1cm abdominal or pelvic lymph nodes are appreciated. OSSEOUS STRUCTURES: No significant abnormality is seen. Limitations of the study: * Noncontrast study limits sensitivity for focal visceral lesions, intraluminal filling defects, and vascular pathology. * Patient breathing motion artifact throughout the scan limits of visualization. IMPRESSION: 1. No renal calcifications or hydronephrosis is seen bilaterally. Left ureter is noted to be larger in caliber than the right ureter. 2. Prominent pancolonic stool volume noted.
[2022-10-01] MEDS ORDERED: ACETAMINOPHEN TAB 325 MG TAB PO PRN (22:15)
[2022-10-01] MEDS ORDERED: NALOXONE 0.4 MG/ML 1 ML VIAL IV PRN (22:15)
[2022-10-01] MEDS: METOPROLOL SUCCINATE (ER) 100 MG TAB.ER.24H PO SCH (23:41)
[2022-10-01] MEDS: APIXABAN 5 MG TAB PO SCH (23:41)
[2022-10-02] MEDS: HYDROmorphone 0.5 MG/0.5 ML SYRINGE IVP PRN (01:38)
[2022-10-02 06:21] LABS: Glucose,Whole Blood 161 mg/dL (70-110)
[2022-10-02 08:45] LABS: Anisocytosis Slight; Basophils % (A) 0 %; Eosinophils # (A) 0.3 k/uL (0-0.7); Eosinophils % (A) 3 %; HCT 30.8 % (39.0-53.0); Hypochromasia Slight; Lymphocytes # (A) 0.6 k/uL (1.0-4.8); Lymphocytes % (A) 6 %; MCH 37.2 pg (25.0-35.0); MCHC 32.6 g/dL (31.0-37.0); Macrocytosis Marked; Mean Platelet Volume 8.2; Monocytes # (A) 0.9 k/uL (0-1.0); Monocytes % (A) 8 %; Neutrophils # (A) 8.4 k/uL (1.3-7.7); Neutrophils % (A) 81 %; Platelet Count 159 k/uL (150-450); Poikilocytosis Slight; RDW 18.4 % (11.5-15.5); WBC 10.4 k/uL (3.8-10.6)
[2022-10-02] MEDS ORDERED: METOPROLOL SUCCINATE (ER) 100 MG TAB.ER.24H PO SCH (09:00)
[2022-10-02] MEDS ORDERED: ERGOCALCIFEROL 1,250 MCG (50,000 IU) CAPSULE PO SCH (09:00)
[2022-10-02] MEDS ORDERED: glipiZIDE 5 MG TAB PO SCH (09:00)
[2022-10-02] MEDS ORDERED: CLOPIDOGREL 75 MG TAB PO SCH (09:00)
[2022-10-02] MEDS ORDERED: APIXABAN 5 MG TAB PO SCH (09:00)
[2022-10-02 09:17] LABS: Potassium 5.3 mmol/L (3.5-5.1)
[2022-10-02 09:18] LABS: African American GFR (CKD) 43 (>60 ml/min/1.73 sqM); Anion Gap 12 mmol/L; Blood Urea Nitrogen 63 mg/dL (9-20); Calcium 8.3 mg/dL (8.4-10.2); Carbon Dioxide 10 mmol/L (22-30); Chloride 115 mmol/L (98-107); Glucose 189 mg/dL (74-99); Magnesium 2.1 mg/dL (1.6-2.3); Non-African American GFR(CKD) 37 (>60 ml/min/1.73 sqM); Sodium 137 mmol/L (137-145)
[2022-10-02] MEDS: AMIODARONE 200 MG TAB PO SCH (09:51)
[2022-10-02] MEDS: SACUBITRIL/VALSARTAN 24 MG-26 MG TABLET PO SCH ×2 (09:52→23:39)
[2022-10-02] MEDS: APIXABAN 5 MG TAB PO SCH ×2 (09:52→23:36)
[2022-10-02] MEDS: THIAMINE 100 MG TAB PO SCH (09:52)
[2022-10-02] MEDS: FERROUS SULFATE 325 MG TAB PO SCH (09:52)
[2022-10-02] MEDS: ASPIRIN 81 MG PO SCH (09:52)
[2022-10-02] MEDS: CYANOCOBALAMIN 500 MCG TAB PO SCH (09:52)
[2022-10-02] MEDS: LORATADINE 10 MG TAB PO SCH (09:52)
[2022-10-02] MEDS: METOPROLOL SUCCINATE (ER) 100 MG TAB.ER.24H PO SCH (09:52)
[2022-10-02] MEDS: allopurinoL 100 MG TAB PO SCH (09:52)
--- NOTE | 2022-10-02 10:02 | P.CRDCN ---
History of Present Illness Consult date: 10/02/22 Consult reason: congestive heart failure History of present illness: History of present illness: This is a 72-year-old male patient of Dr. Piedra with past medical history of coronary artery disease with stenting in October 2020, ischemic cardiomyopathy with EF of 35 and 40%, CHF, nonsustained ventricular tachycardia status post ICD, hypertension, persistent atrial fibrillation. We have been asked to evaluate the patient for CHF. Patient has history that he came in the hospital due to back pain and wheezing in his chest. Regarding the back pain he states he has had it for a while but has been getting worse. Regarding the wheezing in his chest he states he has it on and off at home. He does have a cough which seems to be better this morning. No fever or chills. No nausea or vomiting, no blood in the stools or urine. He occasionally has PND. He sleeps on 2 pillows at night. He is not very active at home due to chronic back pain. Patient denies having lower extremity edema but it is present. He had updraft treatment with improvement of his wheezing. He denies any discharge from his ICD. He has history of smoking and quit many years ago. EKG atrial fibrillation, right bundle branch block Chest x-ray: Subtle fine reticular pattern CAT scan of the abdomen pelvis revealed no renal calcifications or hydronephrosis bilaterally. Left ureter is larger in caliber than the right. Prominent mcnair colonic stool volume noted. WBC 10.4, hemoglobin 10, platelet count 159. Sodium 137, potassium 5.3, chloride 115, CO2 10, BUN 63 and creatinine 1.77. On arrival BUN was 71 and creatinine 2.07. Troponin negative 1. ProBNP 3230. Liver function tests are normal. Home cardiac medications: Amiodarone 200 mg daily, eliquis 5 mg twice daily, Lipitor 40 mg at bedtime, Plavix 75 mg daily, Lasix 40 mg daily, Toprol-XL 100 mg twice daily, Entresto 2426 milligrams 1 tablet twice daily, Spiriva lactone 50 mg daily Most recent echocardiogram performed in the office on 02/04/2022 revealed EF of 30-35%, mild concentric left ventricular hypertrophy. Moderately dilated right ventricle and reduced function. Severely dilated left atrium and right atrium. Mild aortic regurgitation. Moderate mitral regurgitation. Severe tricuspid regurgitation. Right severely increased PA SP 83 mmHg. Cardiac catheterization 10/23/2020: Multivessel disease with multiple lesions in the RCA and total occlusion distally. Significant disease in the mid LAD. PCI 10/25/2020 stenting of the mid LAD Dual-chamber ICD interrogation 04/14/2022 Review Of Systems: At the time of my evaluation: Constitutional: No fever, no chills. No weakness, fatigue or lethargy. EENT: No headache. No dizziness. Lungs: Reports shortness of breath, reports cough, no sputum production. Reports wheezing. Cardiovascular: No chest pain, noted lower extremity edema. No palpitations. Reports occasional paroxysmal nocturnal dyspnea. Reports chronic orthopnea. No lightheadedness or dizziness. No syncopal episodes. Abdominal: No abdominal pain. No nausea, vomiting. No bloody or tarry stools. Musculoskeletal: No myalgias. No muscle weakness, no frequent falls. Reports chronic back pain. No neck pain. Integumentary: No wounds. No rash. No unusual bruising. Neurologic: No aphasia. No facial droop. No change in mentation. No head injury. No headache. Physical examination: Gen: This is a 72-year-old male. He is resting bed appears to be fairly comfortable. VS: reviewed HEENT: Head is atraumatic, normocephalic. Pupils equal, round. Sclerae is anicteric. NECK: Supple. No JVD. LUNGS: Bilateral wheezing. No intercostal retractions. HEART: Irregular rate and rhythm. No murmur. ABDOMEN: Soft No tenderness. EXTREMITIES: 2+ pedal edema. NEUROLOGICAL: Patient is awake, alert and oriented x3. Assessment: Acute on chronic systolic heart failure Acute kidney injury Coronary artery disease with previous stenting Ischemic cardiomyopathy with known EF of 35-40% Nonsustained ventricular tachycardia status post ICD Hypertension Persistent atrial fibrillation Plan: Start patient on Lasix 40 mg twice daily Monitor I&O, daily weights, electrolytes and renal function Resume patient's home cardiac medications At time of discharge, patient will follow-up with Dr. Piedra and to be evaluated to possibly discontinue amiodarone as patient is in permanent atrial fibrillation or consider atrial fibrillation ablation. Obtain 2-D echocardiogram and Doppler study to assess cardiac structure and function Further recommendations to follow based upon clinical course Thank you kindly for this consultation. Nurse practitioner note has been reviewed, I agree with documented findings and plan of care. Patient was seen and examined. Past Medical History Past Medical History: Atrial Fibrillation, Coronary Artery Disease (CAD), Heart Failure, Diabetes Mellitus, Hyperlipidemia, Hypertension Additional Past Medical History / Comment(s): See Dr Piedra's H&P. "Feet cold sometimes". Gout. Hx UTI and kidney infection with Covid. History of Any Multi-Drug Resistant Organisms: None Reported Past Surgical History: Heart Catheterization With Stent, Orthopedic Surgery, Pacemaker Additional Past Surgical History / Comment(s): 2 STENTS DEC 2020, left hip surgery X2. Past Anesthesia/Blood Transfusion Reactions: No Reported Reaction, Postoperative Nausea & Vomiting (PONV) Additional Past Anesthesia/Blood Transfusion Reaction / Comment(s): UNKNOWN FAMILY HX. Date of Last Stent Placement:: DEC 2020 Type of Cardiac Device: Unknown Device Placement Date:: Unknown Past Psychological History: Anxiety, Depression Smoking Status: Former smoker Past Alcohol Use History: None Reported Additional Past Alcohol Use History / Comment(s): QUIT SMOKING AT LEAST 11 YRS AGO. Past Drug Use History: None Reported - Past Family History Mother Family Medical History: Cancer Brother(s) Family Medical History: Cancer Additional Family Medical History / Comment(s): Lung cancer. Father History Unknown: Yes Family Medical History: Hyperlipidemia Medications and Allergies Home Medications Medication Instructions Recorded Confirmed Type Ergocalciferol [Vitamin D2 (1250 50,000 units PO Q30D 10/21/20 10/01/22 History Mcg = 38816 Iu)] Ferrous Sulfate [Iron] 325 mg PO DAILY 10/21/20 10/01/22 History Oxybutynin Xl [Ditropan XL] 5 mg PO DAILY 10/21/20 10/01/22 History Sertraline HCl [Zoloft] 50 mg PO HS 10/21/20 10/01/22 History Tamsulosin HCl [Flomax] 0.4 mg PO HS 10/21/20 10/01/22 History allopurinoL [Zyloprim] 100 mg PO DAILY 10/21/20 10/01/22 History risperiDONE [RisperDAL] 0.5 mg PO HS 10/21/20 10/01/22 History Atorvastatin [Lipitor] 40 mg PO HS 30 Days #30 10/28/20 10/01/22 Rx Clopidogrel [Plavix] 75 mg PO DAILY 30 Days #30 tab 10/28/20 10/01/22 Rx Apixaban [Eliquis] 5 mg PO BID 05/09/21 10/01/22 History Cyanocobalamin [Vitamin B-12] 500 mcg PO DAILY 05/09/21 10/01/22 History Metoprolol Succinate (ER) [Toprol 100 mg PO BID 05/09/21 10/01/22 History XL] Thiamine HCl [Vitamin B-1] 100 mg PO DAILY 05/09/21 10/01/22 History Amiodarone [Cordarone] 200 mg PO DAILY 02/06/22 10/01/22 History Loratadine [Claritin] 10 mg PO DAILY 02/06/22 10/01/22 History Menthol [Biofreeze] 1 applic TOPICAL Q6H PRN 02/06/22 10/01/22 History Multivit-Min/FA/Lycopen/Lutein 1 tab PO DAILY 02/06/22 10/01/22 History [Centrum Silver Men Tablet] glipiZIDE [Glucotrol] 5 mg PO BID 02/06/22 10/01/22 History Acetaminophen Tab [Tylenol Tab] 1,000 mg PO TID PRN 10/01/22 10/01/22 History Furosemide [Lasix] 40 mg PO DAILY 10/01/22 10/01/22 History Menthol-Zinc Oxide Oint 1 applic TOPICAL QID PRN 10/01/22 10/01/22 History [Calmoseptine Ointment] Sacubitril/Valsartan [Entresto 24 1 tab PO BID 10/01/22 10/01/22 History mg-26 mg Tablet] Spironolactone [Aldactone] 50 mg PO DAILY 10/01/22 10/01/22 History Allergies Allergy/AdvReac Type Severity Reaction Status Date / Time No Known Allergies Allergy Verified 10/01/22 21:22 Physical Exam Vitals: Vital Signs Temp Pulse Pulse Resp BP BP Pulse Ox 10/02/22 08:24 97 10/02/22 08:00 97.9 F 86 14 106/70 96 10/02/22 01:26 97.6 F 96 19 124/86 98 10/01/22 23:41 98 18 138/80 98 10/01/22 22:00 93 18 128/57 97 10/01/22 20:38 98 10/01/22 20:27 96 10/01/22 18:28 87 16 129/83 98 10/01/22 15:59 97.8 F 93 18 151/82 99 Intake and Output 10/01/22 10/02/22 10/02/22 22:59 06:59 14:59 Output Total 250 100 Balance -250 -100 Output: Urine 250 100 Other: Weight 104.326 kg 104.326 kg Results 10/02/22 07:54 10/02/22 07:54 Cardiac Enzymes 10/01/22 10/01/22 Range/Units 17:46 17:46 AST 32 (17-59) U/L Troponin I <0.012 (0.000-0.034) ng/mL Coagulation 10/01/22 Range/Units 17:46 PT 10.9 (9.0-12.0) sec APTT 28.2 (22.0-30.0) sec CBC 10/01/22 Range/Units 17:46 WBC 10.8 H (3.8-10.6) k/uL RBC 2.71 L (4.30-5.90) m/uL Hgb 10.2 L (13.0-17.5) gm/dL Hct 30.3 L (39.0-53.0) % Plt Count 152 (150-450) k/uL Comprehensive Metabolic Panel 10/01/22 Range/Units 17:46 Sodium 136 L (137-145) mmol/L Potassium 5.5 H (3.5-5.1) mmol/L Chloride 111 H (98-107) mmol/L Carbon Dioxide 13 L (22-30) mmol/L BUN 71 H (9-20) mg/dL Creatinine 2.07 H (0.66-1.25) mg/dL Glucose 119 H (74-99) mg/dL Calcium 8.4 (8.4-10.2) mg/dL AST 32 (17-59) U/L ALT 20 (4-49) U/L Alkaline Phosphatase 58 (38-126) U/L Total Protein 9.0 H (6.3-8.2) g/dL Albumin 3.7 (3.5-5.0) g/dL Current Medications Generic Name Dose Route Start Last Admin Trade Name Freq PRN Reason Stop Dose Admin Acetaminophen 650 mg 10/01/22 22:15 Acetaminophen Tab 325 Mg Tab PO Q6HR PRN Mild Pain or Fever > 100.5 Allopurinol 100 mg 10/02/22 09:00 Allopurinol 100 Mg Tab PO DAILY [facility] Amiodarone HCl 200 mg 10/02/22 09:00 Amiodarone 200 Mg Tab PO DAILY [facility] Apixaban 5 mg 10/01/22 23:23 10/01/22 23:41 Apixaban 5 Mg Tab PO 5 mg BID [facility] Administration Protocol Atorvastatin Calcium 40 mg 10/02/22 21:00 Atorvastatin 40 Mg Tab PO HS [facility] Clopidogrel Bisulfate 75 mg 10/02/22 09:00 Clopidogrel 75 Mg Tab PO DAILY [facility] Cyanocobalamin 500 mcg 10/02/22 09:00 Cyanocobalamin 500 Mcg Tab PO DAILY [facility] Ergocalciferol 1,250 mcg 10/02/22 09:00 Ergocalciferol 1,250 Mcg (50,000 Iu) Capsule PO Q30D [facility] Ferrous Sulfate 325 mg 10/02/22 09:00 Ferrous Sulfate 325 Mg Tab PO DAILY [facility] Glipizide 5 mg 10/02/22 09:00 Glipizide 5 Mg Tab PO BID [facility] Hydromorphone HCl 0.5 mg 10/01/22 22:15 10/02/22 01:38 Hydromorphone 0.5 Mg/0.5 Ml Syringe IVP 0.5 mg Q3HR PRN Administration Severe Pain (Scale 7 to 10) Loratadine 10 mg 10/02/22 09:00 Loratadine 10 Mg Tab PO DAILY [facility] Metoprolol Succinate 100 mg 10/01/22 23:22 10/01/22 23:41 Metoprolol Succinate (Er) 100 Mg Tab.Er.24h PO 100 mg BID [facility] Administration Naloxone HCl 0.2 mg 10/01/22 22:15 Naloxone 0.4 Mg/Ml 1 Ml Vial IV Q2M PRN Opioid Reversal Risperidone 0.5 mg 10/02/22 21:00 Risperidone 0.5 Mg Tab PO HS [facility] Sacubitril/Valsartan 1 each 10/02/22 09:00 Sacubitril/Valsartan 24 Mg-26 Mg Tablet PO BID [facility] Tamsulosin HCl 0.4 mg 10/02/22 21:00 Tamsulosin 0.4 Mg Cap.Er.24h PO HS [facility] Thiamine HCl 100 mg 10/02/22 09:00 Thiamine 100 Mg Tab PO DAILY [facility] Intake and Output 10/01/22 10/02/22 10/02/22 22:59 06:59 14:59 Output Total 250 100 Balance -250 -100 Output: Urine 250 100 Other: Weight 104.326 kg 104.326 kg 10/01/22 17:46 10/01/22 17:46
[2022-10-02] MEDS: FUROSEMIDE 10 MG/ML 4 ML VIAL IV SCH ×2 (10:46→23:36)
[2022-10-02] MEDS ORDERED: ALBUTEROL NEBULIZED 2.5 MG/3 ML INHALATION PRN (11:07)
[2022-10-02 11:44] VITALS: BMI 34.9
[2022-10-02] MEDS ORDERED: SODIUM BICARB 8.4% 50 ML SYR (1 MEQ/ML) IV STA (11:47)
[2022-10-02] MEDS: IPRATROPIUM-ALBUTEROL 3 ML NEB INHALATION SCH ×3 (11:49→21:10)
--- NOTE | 2022-10-02 11:49 | P.NPCON ---
History of Present Illness - Reason for Consult acute renal failure, chronic renal failure - History of Present Illness Reason for consultation: Acute kidney injury on chronic kidney disease History of present illness: Patient is a 72-year-old male seen in consultation for acute kidney injury on chronic kidney disease. Patient has chronic kidney disease stage III with baseline creatinine 1.1-1.5 in February 2022. Creatinine this admission was 2.07 and is down to 1.77 today. Patient came to the hospital with shortness of breath going on for about 4 days. He was also complaining of low back pain but has now improved. He is currently on room air. Patient has history of systolic CHF with ejection fraction of 35-40% with severe pulmonary hypertension. He is maintained on Entresto. Patient does have some edema in the lower extremity. He denies any vomiting or diarrhea. Oral intake has been fair. Denies use of nonsteroidals. Denies family history of renal disease. He does have long-sta nding history of diabetes. Also admits to coronary artery disease with cardiac stenting as well as pacemaker placement. Denies hematuria or dysuria. Blood pressure controlled. No fever or chills. Noted to be acidotic with a bicarb level of 10. Vital signs are stable. General: No acute distress. HEENT: Head exam is unremarkable LUNGS: Scattered wheezing. HEART: Rate and Rhythm are regular. ABDOMEN: Soft, obese. EXTREMITITES: 1+ edema. Past Medical History Past Medical History: Atrial Fibrillation, Coronary Artery Disease (CAD), Heart Failure, Diabetes Mellitus, Hyperlipidemia, Hypertension Additional Past Medical History / Comment(s): See Dr Piedra's H&P. "Feet cold sometimes". Gout. Hx UTI and kidney infection with Covid. History of Any Multi-Drug Resistant Organisms: None Reported Past Surgical History: Heart Catheterization With Stent, Orthopedic Surgery, Pacemaker Additional Past Surgical History / Comment(s): 2 STENTS DEC 2020, left hip surgery X2. Past Anesthesia/Blood Transfusion Reactions: No Reported Reaction, Postoperative Nausea & Vomiting (PONV) Additional Past Anesthesia/Blood Transfusion Reaction / Comment(s): UNKNOWN FAMILY HX. Date of Last Stent Placement:: DEC 2020 Type of Cardiac Device: Unknown Device Placement Date:: Unknown Past Psychological History: Anxiety, Depression Smoking Status: Former smoker Past Alcohol Use History: None Reported Additional Past Alcohol Use History / Comment(s): QUIT SMOKING AT LEAST 11 YRS AGO. Past Drug Use History: None Reported - Past Family History Mother Family Medical History: Cancer Brother(s) Family Medical History: Cancer Additional Family Medical History / Comment(s): Lung cancer. Father History Unknown: Yes Family Medical History: Hyperlipidemia Medications and Allergies Home Medications Medication Instructions Recorded Confirmed Type Ergocalciferol [Vitamin D2 (1250 50,000 units PO Q30D 10/21/20 10/01/22 History Mcg = 30885 Iu)] Ferrous Sulfate [Iron] 325 mg PO DAILY 10/21/20 10/01/22 History Oxybutynin Xl [Ditropan XL] 5 mg PO DAILY 10/21/20 10/01/22 History Sertraline HCl [Zoloft] 50 mg PO HS 10/21/20 10/01/22 History Tamsulosin HCl [Flomax] 0.4 mg PO HS 10/21/20 10/01/22 History allopurinoL [Zyloprim] 100 mg PO DAILY 10/21/20 10/01/22 History risperiDONE [RisperDAL] 0.5 mg PO HS 10/21/20 10/01/22 History Atorvastatin [Lipitor] 40 mg PO HS 30 Days #30 10/28/20 10/01/22 Rx Clopidogrel [Plavix] 75 mg PO DAILY 30 Days #30 tab 10/28/20 10/01/22 Rx Apixaban [Eliquis] 5 mg PO BID 05/09/21 10/01/22 History Cyanocobalamin [Vitamin B-12] 500 mcg PO DAILY 05/09/21 10/01/22 History Metoprolol Succinate (ER) [Toprol 100 mg PO BID 05/09/21 10/01/22 History XL] Thiamine HCl [Vitamin B-1] 100 mg PO DAILY 05/09/21 10/01/22 History Amiodarone [Cordarone] 200 mg PO DAILY 02/06/22 10/01/22 History Loratadine [Claritin] 10 mg PO DAILY 02/06/22 10/01/22 History Menthol [Biofreeze] 1 applic TOPICAL Q6H PRN 02/06/22 10/01/22 History Multivit-Min/FA/Lycopen/Lutein 1 tab PO DAILY 02/06/22 10/01/22 History [Centrum Silver Men Tablet] glipiZIDE [Glucotrol] 5 mg PO BID 02/06/22 10/01/22 History Acetaminophen Tab [Tylenol Tab] 1,000 mg PO TID PRN 10/01/22 10/01/22 History Furosemide [Lasix] 40 mg PO DAILY 10/01/22 10/01/22 History Menthol-Zinc Oxide Oint 1 applic TOPICAL QID PRN 10/01/22 10/01/22 History [Calmoseptine Ointment] Sacubitril/Valsartan [Entresto 24 1 tab PO BID 10/01/22 10/01/22 History mg-26 mg Tablet] Spironolactone [Aldactone] 50 mg PO DAILY 10/01/22 10/01/22 History Allergies Allergy/AdvReac Type Severity Reaction Status Date / Time No Known Allergies Allergy Verified 10/01/22 21:22 Physical Exam Vitals: Vital Signs Temp Pulse Pulse Resp BP BP Pulse Ox 10/02/22 08:24 97 10/02/22 08:00 97.9 F 86 14 106/70 96 10/02/22 01:26 97.6 F 96 19 124/86 98 10/01/22 23:41 98 18 138/80 98 10/01/22 22:00 93 18 128/57 97 10/01/22 20:38 98 10/01/22 20:27 96 10/01/22 18:28 87 16 129/83 98 10/01/22 15:59 97.8 F 93 18 151/82 99 Intake and Output 10/01/22 10/02/22 10/02/22 22:59 06:59 14:59 Output Total 250 425 Balance -250 -425 Output: Urine 250 425 Other: Weight 104.326 kg 104.326 kg Results - Lab Results Most recent lab results Calcium 8.3 mg/dL (8.4-10.2) L 10/02/22 07:54 Magnesium 2.1 mg/dL (1.6-2.3) 10/02/22 07:54 10/02/22 07:54 10/02/22 07:54 Assessment and Plan Plan: Assessment: 1. Acute kidney injury secondary to vasomotor nephropathy secondary to cardiorenal syndrome. Creatinine 2.07 on admission and is 1.77 today. 2. Chronic kidney disease stage IIIA with baseline creatinine 1.1-1.5 in February 2022. Suspect underlying diabetic kidney disease. 3. Metabolic acidosis secondary to acute kidney injury. 4. Acute on chronic systolic CHF with ejection fraction of 35-40% with moderate mitral regurgitation and severe pulmonary hypertension. 5. Volume overload. 6. Diabetes mellitus. Plan: IV Lasix added by cardiology. 2 A of sodium bicarb IV push. Add oral bicarb. Check bladder scan to rule out urinary retention. Check UA. Check renal ultrasound. Continue to monitor renal function and urine output. Thank you for the consultation. I will continue to follow the patient with you during his hospital stay.
[2022-10-02] MEDS: predniSONE 20 MG TAB PO SCH (12:30)
[2022-10-02] MEDS: SODIUM BICARBONATE TAB 650 MG TAB PO SCH ×3 (12:30→23:36)
[2022-10-02 13:05] LABS: Bacteria,Urine Many /hpf; Color,Urine Light Yellow; Mucus,Urine Rare /hpf; RBC,Urine 5 /hpf (0-5); WBC,Urine 96 /hpf (0-5)
[2022-10-02 13:06] LABS: Appearance,Urine Clear (Clear); Bilirubin,Urine Negative (Negative); Blood,Urine Negative (Negative); Glucose,Urine (UA) Negative (Negative); Ketones,Urine Negative (Negative); Leukocyte Esterase,Urine Large (Negative); Nitrite,Urine Negative (Negative); Protein,Urine Negative (Negative); Urobilinogen,Urine <2.0 mg/dL (<2.0)
--- NOTE | 2022-10-02 13:23 | US ---
EXAMINATION TYPE: US kidneys/renal and bladder DATE OF EXAM: 10/02/2022 COMPARISON: CT 10/01/2022 CLINICAL INDICATION: Male, 72 years old with history of rajan; RAJAN. EXAM MEASUREMENTS: Right Kidney: 10.8 x 5.5 x 5.7 cm Left Kidney: 10.5 x 5.3 x 5.8 cm Right Kidney: Anechoic area seen upper pole: 1.5 x 1.5 x 1.1 cm. Left Kidney: Anechoic area seen upper pole: 2.3 x 2.1 x 2.2 cm. Additional subcentimeter anechoic area seen lower pole. Bladder: Not distended. Catheter in place. Bilateral Jets seen: No IMPRESSION: Simple cysts of the kidneys.
[2022-10-02] MEDS ORDERED: DEXTROSE 50% SYRINGE 50 ML IVP PRN ×2 (17:15)
--- NOTE | 2022-10-02 17:17 | CA ---
Transthoracic Echo Report Name: RYANNE Guevara Age: 72 Gender: M : 1950 Exam Date: 10/02/2022 11:03 Exam Location: [facility] Ht (in): 68 Wt (lb): 230 Ordering Physician: Karen Davis Attending/Referring Phys: [id number], Susan Toll Collector TM Procedure CPT: Indications: LVF Cardiac Hx: Technical Quality: Fair Contrast 1: Total Dose (mL): 90 Contrast 2: Total Dose (mL): MEASUREMENTS (Male / Female) Normal Values 2D ECHO LV Diastolic Diameter PLAX 4.4 cm 4.2 - 5.9 / 3.9 - 5.3 cm LV Systolic Diameter PLAX 3.0 cm IVS Diastolic Thickness 1.0 cm 0.6 - 1.0 / 0.6 - 0.9 cm LVPW Diastolic Thickness 1.2 cm 0.6 - 1.0 / 0.6 - 0.9 cm LV Relative Wall Thickness 0.5 RV Internal Dim ED PLAX 3.4 cm LVOT Diameter 2.2 cm Aortic Root Diameter 2.9 cm LA Systolic Diameter LX 2.7 cm 3.0 - 4.0 / 2.7 - 3.8 cm LV Diastolic Volume MOD BP 39.0 cm??? 67 - 155 / 56 - 104 cm??? LV Systolic Volume MOD BP 18.7 cm??? 22 - 58 / 19 - 49 cm??? LV Ejection Fraction MOD BP 52.0 % >= 55 % LV Diastolic Volume MOD 4C 29.0 cm??? LV Systolic Volume MOD 4C 18.8 cm??? LV Ejection Fraction MOD 4C 35.2 % LV Diastolic Length 4C 6.1 cm LV Systolic Length 4C 5.9 cm LV Diastolic Volume MOD 2C 48.2 cm??? LV Systolic Volume MOD 2C 18.5 cm??? LV Ejection Fraction MOD 2C 61.6 % LV Diastolic Length 2C 6.7 cm LV Systolic Length 2C 5.8 cm LA Volume 68.5 cm??? 18 - 58 / 22 - 52 cm??? Ascending Aorta Diameter 2.8 cm DOPPLER AV Peak Velocity 158.3 cm/s AV Peak Gradient 10.0 mmHg AI Peak Velocity 302.0 cm/s AI Peak Gradient 36.5 mmHg AI Pressure Half Time 479.2 ms LVOT Peak Velocity 84.8 cm/s LVOT Peak Gradient 2.9 mmHg AV Area Cont Eq pk 2.0 cm??? MV Peak Velocity 128.9 cm/s MV Peak Gradient 6.6 mmHg MV Mean Velocity 63.2 cm/s MV Mean Gradient 2.1 mmHg MV Velocity Time Integral 28.7 cm MR Peak Velocity 362.8 cm/s MR Peak Gradient 52.6 mmHg MV E' Velocity 10.5 cm/s TR Peak Velocity 320.5 cm/s TR Peak Gradient 41.1 mmHg Right Ventricular Systolic Press 46.1 mmHg PV Peak Velocity 90.4 cm/s PV Peak Gradient 3.3 mmHg FINDINGS Left Ventricle Moderately decreased left ventricular ejection fraction. Normal LV size. Left ventricular ejection fraction is estimated at 35-40 %. There is inferior and lateral wall hypokinesis Right Ventricle RV borderline in size. RVSP= 49mmhg. Right Atrium Moderate right atrial dilatation. Left Atrium Mildly increased left atrial volume. Mildly increased left atrial area. LA volume index= 32ml/m2 Mitral Valve Mild thickening of the anterior mitral valve leaflet. Moderate MR. Aortic Valve Aortic valve not well visualized. Mild aortic regurgitation. Tricuspid Valve Tricuspid valve not well visualized. Moderate TR. Pulmonic Valve Pulmonic valve not well visualized. No pulmonic regurgitation. Pericardium Normal pericardium. Aorta Normal size aortic root and proximal ascending aorta. CONCLUSIONS 1. Normal left ventricular size with moderate impairment in the left ventricle systolic function with segmental wall motion abnormality 2. Moderate mitral and tricuspid regurgitation with moderate pulmonary hypertension 3. Mild aortic regurgitation Previewed by: Dr. Penelope Peres MD (Electronically Signed) Final Date: 02 October 2022 17:16
--- NOTE | 2022-10-02 17:18 | P.HPIM ---
History of Present Illness H&P Date: 10/02/22 Patient is a 69-year-old male with history of COPD, systolic heart failure, CAD status post stent and pacemaker, atrial fibrillation on Eliquis, hypertension, dyslipidemia, type 2 diabetes, COPD presented for shortness of breath and worsening back pain. Patient is a poor historian. Per PCP, patient has been complaining of worsening back pain radiating to his chest. He also complaining of acute on chronic dyspnea. Patient has been noticing marked wheezing, and has nonproductive cough. Is also complaining of worsening lower extremity edema. Denies any fevers, chills, abdominal pain, nausea, vomiting, urinary or bowel complaints neck In the ED, temperature was 97.8, blood pressure 151/82, saturating at 99% on room air. Initial laboratory workup shows WBC of 10.8, hemoglobin 10.2, sodium 136, potassium 5.5 with slight hemolysis, bicarb 13, creatinine 2.07, proBNP 300 0, negative troponin. Chest x-ray independently interpreted, shows no acute process. CT abdomen and pelvis shows no renal calcifications or hydronephrosis. Prominent colonic stool volume noted. Patient admitted for acute kidney injury, CHF exacerbation, and COPD exacerbation. Pertinent positives and negatives as discussed in HPI, a complete review of systems was performed and all other systems are negative. Patient seen and examined at bedside. Vital signs reviewed General: nontoxic, no distress, appears at stated age, morbidly obese Derm: warm, dry Head: atraumatic, normocephalic, symmetric Eyes: EOMI, no lid lag, anicteric sclera, pupils equal round reactive to light ENT: Nose and ears atraumatic Neck: No thyromegaly, supple Mouth: no lip lesion, mucus membranes moist Cardiovascular: S1S2 reg, no murmur, 2+ pitting edema Lungs: Bilateral wheezing, no accessory muscle use Abdominal: soft, nontender to palpation, no guarding, no appreciable organomegaly Ext: no gross muscle atrophy, muscle strength muscle strength 5 out of 5 in all 4 extremities, no contractures Neuro: CN II-XII grossly intact Psych: Alert, oriented, appropriate affect Assessment/Plan: Active: Acute on chronic systolic heart failure Acute COPD exacerbation Acute kidney injury Metabolic acidosis Acute urinary retention Type 2 diabetes Chronic Back pain -Started on IV Lasix, monitor electrolytes and renal function -Cardiology note reviewed, may need outpatient follow-up for discontinuation of amiodarone and possible ablation -Started on bronchodilators and oral steroids -Nephrology note reviewed, patient has acute urinary retention, needs Jacobs catheter, Flomax also started -Patient also started on oral bicarbonate, status post IV bicarb push -Hold glipizide, started on sliding scale insulin -Continue Tylenol, Dilaudid as needed Chronic: Nonsustained VT status post ICD Hypertension Persistent atrial fibrillation CAD status post stent The patient is admitted with an anticipated greater than 2 midnight stay as inpatient status for evaluation of CHF exacerbation. Surrogate decision-maker: Legal guardian CODE STATUS: Full code DVT prophylaxis: Eliquis Anticipated discharge date: Pending clinical course Anticipated discharge place: Pending clinical course A total of 65 minutes was spent on the care of this complex patient more than 50% of the time was spent in counseling and care coordination. Past Medical History Past Medical History: Atrial Fibrillation, Coronary Artery Disease (CAD), Heart Failure, Diabetes Mellitus, Hyperlipidemia, Hypertension Additional Past Medical History / Comment(s): See Dr Piedra's H&P. "Feet cold sometimes". Gout. Hx UTI and kidney infection with Covid. History of Any Multi-Drug Resistant Organisms: None Reported Past Surgical History: Heart Catheterization With Stent, Orthopedic Surgery, Pacemaker Additional Past Surgical History / Comment(s): 2 STENTS DEC 2020, left hip surgery X2. Past Anesthesia/Blood Transfusion Reactions: No Reported Reaction, Postoperative Nausea & Vomiting (PONV) Additional Past Anesthesia/Blood Transfusion Reaction / Comment(s): UNKNOWN FAMILY HX. Date of Last Stent Placement:: DEC 2020 Type of Cardiac Device: Unknown Device Placement Date:: Unknown Past Psychological History: Anxiety, Depression Smoking Status: Former smoker Past Alcohol Use History: None Reported Additional Past Alcohol Use History / Comment(s): QUIT SMOKING AT LEAST 11 YRS AGO. Past Drug Use History: None Reported - Past Family History Mother Family Medical History: Cancer Brother(s) Family Medical History: Cancer Additional Family Medical History / Comment(s): Lung cancer. Father History Unknown: Yes Family Medical History: Hyperlipidemia Medications and Allergies Home Medications Medication Instructions Recorded Confirmed Type Ergocalciferol [Vitamin D2 (1250 50,000 units PO Q30D 10/21/20 10/01/22 History Mcg = 90087 Iu)] Ferrous Sulfate [Iron] 325 mg PO DAILY 10/21/20 10/01/22 History Oxybutynin Xl [Ditropan XL] 5 mg PO DAILY 10/21/20 10/01/22 History Sertraline HCl [Zoloft] 50 mg PO HS 10/21/20 10/01/22 History Tamsulosin HCl [Flomax] 0.4 mg PO HS 10/21/20 10/01/22 History allopurinoL [Zyloprim] 100 mg PO DAILY 10/21/20 10/01/22 History risperiDONE [RisperDAL] 0.5 mg PO HS 10/21/20 10/01/22 History Atorvastatin [Lipitor] 40 mg PO HS 30 Days #30 10/28/20 10/01/22 Rx Clopidogrel [Plavix] 75 mg PO DAILY 30 Days #30 tab 10/28/20 10/01/22 Rx Apixaban [Eliquis] 5 mg PO BID 05/09/21 10/01/22 History Cyanocobalamin [Vitamin B-12] 500 mcg PO DAILY 05/09/21 10/01/22 History Metoprolol Succinate (ER) [Toprol 100 mg PO BID 05/09/21 10/01/22 History XL] Thiamine HCl [Vitamin B-1] 100 mg PO DAILY 05/09/21 10/01/22 History Amiodarone [Cordarone] 200 mg PO DAILY 02/06/22 10/01/22 History Loratadine [Claritin] 10 mg PO DAILY 02/06/22 10/01/22 History Menthol [Biofreeze] 1 applic TOPICAL Q6H PRN 02/06/22 10/01/22 History Multivit-Min/FA/Lycopen/Lutein 1 tab PO DAILY 02/06/22 10/01/22 History [Centrum Silver Men Tablet] glipiZIDE [Glucotrol] 5 mg PO BID 02/06/22 10/01/22 History Acetaminophen Tab [Tylenol Tab] 1,000 mg PO TID PRN 10/01/22 10/01/22 History Furosemide [Lasix] 40 mg PO DAILY 10/01/22 10/01/22 History Menthol-Zinc Oxide Oint 1 applic TOPICAL QID PRN 10/01/22 10/01/22 History [Calmoseptine Ointment] Sacubitril/Valsartan [Entresto 24 1 tab PO BID 10/01/22 10/01/22 History mg-26 mg Tablet] Spironolactone [Aldactone] 50 mg PO DAILY 10/01/22 10/01/22 History Allergies Allergy/AdvReac Type Severity Reaction Status Date / Time No Known Allergies Allergy Verified 10/01/22 21:22 Physical Exam Vitals: Vital Signs Temp Pulse Pulse Resp BP BP Pulse Ox 10/02/22 15:41 84 10/02/22 15:30 86 10/02/22 14:00 98.5 F 98 24 113/75 97 10/02/22 11:58 84 10/02/22 11:49 78 10/02/22 08:24 97 10/02/22 08:11 20 10/02/22 08:00 97.9 F 86 14 106/70 96 10/02/22 01:26 97.6 F 96 19 124/86 98 10/01/22 23:41 98 18 138/80 98 10/01/22 22:00 93 18 128/57 97 10/01/22 20:38 98 10/01/22 20:27 96 10/01/22 18:28 87 16 129/83 98 Intake and Output 10/02/22 10/02/22 10/02/22 06:59 14:59 22:59 Output Total 250 965 Balance -250 -965 Output: Urine 250 865 Uretheral (Jacobs) 440 Post Void Residual 100 Other: Voiding Method Urinal Weight 104.326 kg 104.326 kg Results CBC & Chem 7: 10/02/22 07:54 10/02/22 07:54 Labs: Abnormal Lab Results - Last 24 Hours (Table) 10/01/22 10/01/22 10/02/22 Range/Units 17:46 17:46 06:19 WBC 10.8 H (3.8-10.6) k/uL RBC 2.71 L (4.30-5.90) m/uL Hgb 10.2 L (13.0-17.5) gm/dL Hct 30.3 L (39.0-53.0) % MCV 111.8 H (80.0-100.0) fL MCH 37.5 H (25.0-35.0) pg RDW 17.9 H (11.5-15.5) % Neutrophils # 8.6 H (1.3-7.7) k/uL Lymphocytes # 0.8 L (1.0-4.8) k/uL Macrocytosis Marked A Sodium 136 L (137-145) mmol/L Potassium 5.5 H (3.5-5.1) mmol/L Chloride 111 H (98-107) mmol/L Carbon Dioxide 13 L (22-30) mmol/L BUN 71 H (9-20) mg/dL Creatinine 2.07 H (0.66-1.25) mg/dL Glucose 119 H (74-99) mg/dL POC Glucose (mg/dL) 161 H (70-110) mg/dL Calcium (8.4-10.2) mg/dL Total Protein 9.0 H (6.3-8.2) g/dL Urine WBC (0-5) /hpf Urine Bacteria (None) /hpf Urine Mucus (None) /hpf 10/02/22 10/02/22 10/02/22 Range/Units 07:54 07:54 12:47 WBC (3.8-10.6) k/uL RBC 2.70 L (4.30-5.90) m/uL Hgb 10.0 L (13.0-17.5) gm/dL Hct 30.8 L (39.0-53.0) % MCV 114.0 H (80.0-100.0) fL MCH 37.2 H (25.0-35.0) pg RDW 18.4 H (11.5-15.5) % Neutrophils # 8.4 H (1.3-7.7) k/uL Lymphocytes # 0.6 L (1.0-4.8) k/uL Macrocytosis Marked A Sodium (137-145) mmol/L Potassium 5.3 H (3.5-5.1) mmol/L Chloride 115 H (98-107) mmol/L Carbon Dioxide 10 L (22-30) mmol/L BUN 63 H (9-20) mg/dL Creatinine 1.77 H (0.66-1.25) mg/dL Glucose 189 H (74-99) mg/dL POC Glucose (mg/dL) (70-110) mg/dL Calcium 8.3 L (8.4-10.2) mg/dL Total Protein (6.3-8.2) g/dL Urine WBC 96 H (0-5) /hpf Urine Bacteria Many H (None) /hpf Urine Mucus Rare H (None) /hpf Thrombosis Risk Factor Assmnt - Choose All That Apply Any of the Below Risk Factors Present?: Yes Each Factor Represents 1 point: Age 41-60 years Each Risk Factor Represents 2 Points: Age 61-74 years Other congenital or acquired thrombophilia - If yes, enter type in comment: No Thrombosis Risk Factor Assessment Total Risk Factor Score: 3 Thrombosis Risk Factor Assessment Level: Moderate Risk
[2022-10-02] MEDS: INSULIN ASPART (NovoLOG) 100 UNIT/ML VIAL SQ SCH ×2 (19:00→23:54)
[2022-10-02 21:25] LABS: Glucose,Whole Blood 177 mg/dL (70-110)
[2022-10-02] MEDS: ATORVASTATIN 40 MG TAB PO SCH (23:36)
[2022-10-02] MEDS: TAMSULOSIN 0.4 MG CAP.ER.24H PO SCH (23:36)
[2022-10-02] MEDS: risperiDONE 0.5 MG TAB PO SCH (23:37)
[2022-10-03] MEDS: METOPROLOL SUCCINATE (ER) 100 MG TAB.ER.24H PO SCH ×3 (02:14→21:39)
[2022-10-03 04:45] LABS: African American GFR (CKD) 50 (>60 ml/min/1.73 sqM); Anion Gap 10 mmol/L; Blood Urea Nitrogen 66 mg/dL (9-20); Calcium 8.3 mg/dL (8.4-10.2); Carbon Dioxide 18 mmol/L (22-30); Chloride 105 mmol/L (98-107); Glucose 140 mg/dL (74-99); Non-African American GFR(CKD) 43 (>60 ml/min/1.73 sqM); Potassium 4.4 mmol/L (3.5-5.1); Sodium 133 mmol/L (137-145)
[2022-10-03 05:00] LABS: Anisocytosis Slight; Basophils % (A) 0 %; Eosinophils % (A) 0 %; HCT 28.1 % (39.0-53.0); HGB 9.3 gm/dL (13.0-17.5); Lymphocytes # (A) 0.5 k/uL (1.0-4.8); Lymphocytes % (A) 6 %; MCH 36.7 pg (25.0-35.0); MCHC 33.2 g/dL (31.0-37.0); MCV 110.5 fL (80.0-100.0); Macrocytosis Marked; Mean Platelet Volume 8.2; Monocytes # (A) 0.6 k/uL (0-1.0); Monocytes % (A) 8 %; Neutrophils # (A) 6.4 k/uL (1.3-7.7); Neutrophils % (A) 84 %; Platelet Count 129 k/uL (150-450); Poikilocytosis Slight; RBC 2.54 m/uL (4.30-5.90); RDW 17.8 % (11.5-15.5); WBC 7.7 k/uL (3.8-10.6)
[2022-10-03] MEDS: HYDROmorphone 0.5 MG/0.5 ML SYRINGE IVP PRN ×2 (05:17→21:36)
[2022-10-03 05:26] LABS: Anisocytosis (M) Present; Polychromasia Present
[2022-10-03 05:59] LABS: Glucose,Whole Blood 163 mg/dL (70-110)
[2022-10-03] MEDS: IPRATROPIUM-ALBUTEROL 3 ML NEB INHALATION SCH ×4 (08:06→19:24)
[2022-10-03] MEDS: predniSONE 20 MG TAB PO SCH (08:29)
[2022-10-03] MEDS: APIXABAN 5 MG TAB PO SCH ×2 (08:29→21:38)
[2022-10-03] MEDS: LORATADINE 10 MG TAB PO SCH (08:29)
[2022-10-03] MEDS: INSULIN ASPART (NovoLOG) 100 UNIT/ML VIAL SQ SCH ×4 (08:29→21:38)
[2022-10-03] MEDS: AMIODARONE 200 MG TAB PO SCH (08:29)
[2022-10-03] MEDS: FERROUS SULFATE 325 MG TAB PO SCH (08:29)
[2022-10-03] MEDS: SACUBITRIL/VALSARTAN 24 MG-26 MG TABLET PO SCH ×2 (08:30→21:38)
[2022-10-03] MEDS: allopurinoL 100 MG TAB PO SCH (08:30)
[2022-10-03] MEDS: SODIUM BICARBONATE TAB 650 MG TAB PO SCH ×3 (08:30→21:38)
[2022-10-03] MEDS: THIAMINE 100 MG TAB PO SCH (08:30)
[2022-10-03] MEDS: CYANOCOBALAMIN 500 MCG TAB PO SCH (08:30)
[2022-10-03] MEDS: FUROSEMIDE 10 MG/ML 4 ML VIAL IV SCH ×2 (08:30→21:38)
[2022-10-03] MEDS: ASPIRIN 81 MG PO SCH (08:30)
[2022-10-03 11:15] LABS: Glucose,Whole Blood 218 mg/dL (70-110)
[2022-10-03 16:10] LABS: Glucose,Whole Blood 309 mg/dL (70-110)
--- NOTE | 2022-10-03 16:19 | P.PN ---
Subjective Progress Note Date: 10/03/22 Hospital Course: 69-year-old male with history of COPD, systolic heart failure, CAD status post stent and pacemaker, atrial fibrillation on Eliquis, hypertension, dyslipidemia, type 2 diabetes, COPD presented for shortness of breath and worsening back pain. In the ED, temperature was 97.8, blood pressure 151/82, saturating at 99% on room air. Initial laboratory workup shows WBC of 10.8, hemoglobin 10.2, sodium 136, potassium 5.5 with slight hemolysis, bicarb 13, creatinine 2.07, proBNP 3000, negative troponin. Chest x-ray independently interpreted, shows no acute process. CT abdomen and pelvis shows no renal calcifications or hydronephrosis. Prominent colonic stool volume noted. Patient admitted for acute kidney injury, CHF exacerbation, and COPD exacerbation. Pertinent Imaging: Subjective: Pertinent positives and negatives as discussed above, a complete review of systems was performed and all other systems are negative. Vitals Signs Reviewed. General: nontoxic, no distress, appears at stated age, morbidly obese Derm: warm, dry Head: atraumatic, normocephalic, symmetric Eyes: EOMI, no lid lag, anicteric sclera, pupils equal round reactive to light ENT: Nose and ears atraumatic Neck: No thyromegaly, supple Mouth: no lip lesion, mucus membranes moist Cardiovascular: S1S2 reg, no murmur, 2+ pitting edema Lungs: Bilateral wheezing, no accessory muscle use Abdominal: soft, nontender to palpation, no guarding, no appreciable organomegaly Ext: no gross muscle atrophy, muscle strength muscle strength 5 out of 5 in all 4 extremities, no contractures Neuro: CN II-XII grossly intact Psych: Alert, oriented, appropriate affect Data Reviewed Today: Pertinent Labs: WBC 7.7, hemoglobin 9.3, platelet 129, sodium 133, creatinine 1.58, blood sugars range between 140-218 Imaging: Renal ultrasound shows simple cyst of the kidneys, nondistended bladde r, catheter in place Assessment and Plan: Active: Acute on chronic systolic heart failure Acute COPD exacerbation Acute kidney injury Metabolic acidosis Acute urinary retention Type 2 diabetes Chronic Back pain -Continue IV Lasix 40 mg every 12 hours, monitor electrolytes and renal function -Cardiology following, may need outpatient follow-up for discontinuation of amiodarone and possible ablation -On bronchodilators and oral steroids -Nephrology following, patient on Flomax -Patient also started on oral bicarbonate, status post IV bicarb push -Hold glipizide, on sliding scale insulin -Continue Tylenol, Dilaudid as needed Chronic: Nonsustained VT status post ICD Hypertension Persistent atrial fibrillation CAD status post stent DVT ppx: Eliquis Code status: Full code Anticipated discharge place: Home Anticipated discharge time: Likely tomorrow Objective - Vital Signs Vital signs: Vital Signs Temp 97.7 F 10/03/22 13:22 Pulse 92 10/03/22 16:07 Resp 18 10/03/22 13:22 BP 116/76 10/03/22 13:22 Pulse Ox 96 10/03/22 13:22 FiO2 Intake & Output 10/02/22 10/03/22 10/03/22 18:59 06:59 18:59 Intake Total 1080 Output Total 2540 1250 1550 Balance -1460 -1250 -1550 Weight 104.326 kg 98.2 kg Intake: Oral 1080 Output: Urine 2440 1250 1550 Uretheral (Jacobs) 440 Post Void Residual 100 Other: Voiding Method Urinal Indwelling Catheter Indwelling Catheter - Labs CBC & Chem 7: 10/03/22 04:01 10/03/22 04:01 Labs: Abnormal Lab Results - Last 24 Hours (Table) 10/02/22 10/03/22 10/03/22 Range/Units 21:23 04:01 04:01 RBC 2.54 L (4.30-5.90) m/uL Hgb 9.3 L (13.0-17.5) gm/dL Hct 28.1 L (39.0-53.0) % MCV 110.5 H (80.0-100.0) fL MCH 36.7 H (25.0-35.0) pg RDW 17.8 H (11.5-15.5) % Plt Count 129 L (150-450) k/uL Lymphocytes # 0.5 L (1.0-4.8) k/uL Macrocytosis Marked A Sodium 133 L (137-145) mmol/L Carbon Dioxide 18 L (22-30) mmol/L BUN 66 H (9-20) mg/dL Creatinine 1.58 H (0.66-1.25) mg/dL Glucose 140 H (74-99) mg/dL POC Glucose (mg/dL) 177 H (70-110) mg/dL Calcium 8.3 L (8.4-10.2) mg/dL 10/03/22 10/03/22 10/03/22 Range/Units 05:57 11:13 16:09 RBC (4.30-5.90) m/uL Hgb (13.0-17.5) gm/dL Hct (39.0-53.0) % MCV (80.0-100.0) fL MCH (25.0-35.0) pg RDW (11.5-15.5) % Plt Count (150-450) k/uL Lymphocytes # (1.0-4.8) k/uL Macrocytosis Sodium (137-145) mmol/L Carbon Dioxide (22-30) mmol/L BUN (9-20) mg/dL Creatinine (0.66-1.25) mg/dL Glucose (74-99) mg/dL POC Glucose (mg/dL) 163 H 218 H 309 H (70-110) mg/dL Calcium (8.4-10.2) mg/dL
--- NOTE | 2022-10-03 16:53 | P.PN ---
Subjective Progress Note Date: 10/03/22 Subjective: Patient was seen at bedside. Patient denies having any chest pain. He reports his shortness of breath is better since the time of admission. Echo from this admission shows an EF of 35-40% with inferior and inferolateral wall hypokinesia. These findings are somewhat similar to his prior echo findings. He also had moderate mitral regurgitation and evidence of moderate pulmonary hypertension. EKG atrial fibrillation, right bundle branch block Chest x-ray: Subtle fine reticular pattern CAT scan of the abdomen pelvis revealed no renal calcifications or hydronephrosis bilaterally. Left ureter is larger in caliber than the right. Prominent mcnair colonic stool volume noted. WBC 10.4, hemoglobin 10, platelet count 159. Sodium 137, potassium 5.3, chloride 115, CO2 10, BUN 63 and creatinine 1.77. On arrival BUN was 71 and creatinine 2.07. Troponin negative 1. ProBNP 3230. Liver function tests are normal. Home cardiac medications: Amiodarone 200 mg daily, eliquis 5 mg twice daily, Lipitor 40 mg at bedtime, Plavix 75 mg daily, Lasix 40 mg daily, Toprol-XL 100 mg twice daily, Entresto 2426 milligrams 1 tablet twice daily, Spiriva lactone 50 mg daily Most recent echocardiogram performed in the office on 02/04/2022 revealed EF of 30-35%, mild concentric left ventricular hypertrophy. Moderately dilated right ventricle and reduced function. Severely dilated left atrium and right atrium. Mild aortic regurgitation. Moderate mitral regurgitation. Severe tricuspid regurgitation. Right severely increased PA SP 83 mmHg. Cardiac catheterization 10/23/2020: Multivessel disease with multiple lesions in the RCA and total occlusion distally. Significant disease in the mid LAD. PCI 10/25/2020 stenting of the mid LAD Dual-chamber ICD interrogation 04/14/2022 Review Of Systems: At the time of my evaluation: Constitutional: No fever, no chills. No weakness, fatigue or lethargy. EENT: No headache. No dizziness. Lungs: Reports shortness of breath, reports cough, no sputum production. Reports wheezing. Cardiovascular: No chest pain, noted lower extremity edema. No palpitations. Reports occasional paroxysmal nocturnal dyspnea. Reports chronic orthopnea. No lightheadedness or dizziness. No syncopal episodes. Abdominal: No abdominal pain. No nausea, vomiting. No bloody or tarry stools. Musculoskeletal: No myalgias. No muscle weakness, no frequent falls. Reports chronic back pain. No neck pain. Integumentary: No wounds. No rash. No unusual bruising. Neurologic: No aphasia. No facial droop. No change in mentation. No head injury. No headache. Physical examination: Gen: This is a 72-year-old male. He is resting bed appears to be fairly comfortable. VS: reviewed HEENT: Head is atraumatic, normocephalic. Pupils equal, round. Sclerae is anicteric. NECK: Supple. No JVD. LUNGS: Bilateral wheezing. No intercostal retractions. HEART: Irregular rate and rhythm. No murmur. ABDOMEN: Soft No tenderness. EXTREMITIES: 2+ pedal edema. NEUROLOGICAL: Patient is awake, alert and oriented x3. Assessment: Acute on chronic systolic heart failure Acute kidney injury Coronary artery disease with previous stenting Ischemic cardiomyopathy with known EF of 35-40% Moderate pulmonary hypertension Nonsustained ventricular tachycardia status post ICD Hypertension Persistent atrial fibrillation Plan: Start patient on Lasix 40 mg twice daily Monitor I&O, daily weights, electrolytes and renal function Resume patient's home cardiac medications At time of discharge, patient will follow-up with Dr. Piedra and to be evaluated to possibly discontinue amiodarone as patient is in permanent atrial fibrillation or consider atrial fibrillation ablation. Further recommendations to follow based upon clinical course Thank you kindly for this consultation. Objective - Vital Signs Vital signs: Vital Signs Temp 97.7 F 10/03/22 13:22 Pulse 92 10/03/22 16:07 Resp 18 10/03/22 13:22 BP 116/76 10/03/22 13:22 Pulse Ox 96 10/03/22 13:22 FiO2 Intake & Output 10/02/22 10/03/22 10/03/22 18:59 06:59 18:59 Intake Total 1080 Output Total 2540 1250 1550 Balance -1460 -1250 -1550 Weight 104.326 kg 98.2 kg Intake: Oral 1080 Output: Urine 2440 1250 1550 Uretheral (Jacobs) 440 Post Void Residual 100 Other: Voiding Method Urinal Indwelling Catheter Indwelling Catheter - Labs CBC & Chem 7: 10/03/22 04:01 10/03/22 04:01 Labs: Abnormal Lab Results - Last 24 Hours (Table) 10/02/22 10/03/22 10/03/22 Range/Units 21:23 04:01 04:01 RBC 2.54 L (4.30-5.90) m/uL Hgb 9.3 L (13.0-17.5) gm/dL Hct 28.1 L (39.0-53.0) % MCV 110.5 H (80.0-100.0) fL MCH 36.7 H (25.0-35.0) pg RDW 17.8 H (11.5-15.5) % Plt Count 129 L (150-450) k/uL Lymphocytes # 0.5 L (1.0-4.8) k/uL Macrocytosis Marked A Sodium 133 L (137-145) mmol/L Carbon Dioxide 18 L (22-30) mmol/L BUN 66 H (9-20) mg/dL Creatinine 1.58 H (0.66-1.25) mg/dL Glucose 140 H (74-99) mg/dL POC Glucose (mg/dL) 177 H (70-110) mg/dL Calcium 8.3 L (8.4-10.2) mg/dL 10/03/22 10/03/22 10/03/22 Range/Units 05:57 11:13 16:09 RBC (4.30-5.90) m/uL Hgb (13.0-17.5) gm/dL Hct (39.0-53.0) % MCV (80.0-100.0) fL MCH (25.0-35.0) pg RDW (11.5-15.5) % Plt Count (150-450) k/uL Lymphocytes # (1.0-4.8) k/uL Macrocytosis Sodium (137-145) mmol/L Carbon Dioxide (22-30) mmol/L BUN (9-20) mg/dL Creatinine (0.66-1.25) mg/dL Glucose (74-99) mg/dL POC Glucose (mg/dL) 163 H 218 H 309 H (70-110) mg/dL Calcium (8.4-10.2) mg/dL
--- NOTE | 2022-10-03 17:00 | P.PN ---
Subjective Progress Note Date: 10/03/22 Follow-up for chronic kidney disease/acute kidney injury Objective - Vital Signs Vital signs: Vital Signs Temp 97.7 F 10/03/22 13:22 Pulse 92 10/03/22 16:07 Resp 18 10/03/22 13:22 BP 116/76 10/03/22 13:22 Pulse Ox 96 10/03/22 13:22 FiO2 Intake & Output 10/02/22 10/03/22 10/03/22 18:59 06:59 18:59 Intake Total 1080 Output Total 2540 1250 1550 Balance -1460 -1250 -1550 Weight 104.326 kg 98.2 kg Intake: Oral 1080 Output: Urine 2440 1250 1550 Uretheral (Jacobs) 440 Post Void Residual 100 Other: Voiding Method Urinal Indwelling Catheter Indwelling Catheter - Exam No acute distress S1-S2 heard Lungs clear No edema - Labs CBC & Chem 7: 10/03/22 04:01 10/03/22 04:01 Labs: Abnormal Lab Results - Last 24 Hours (Table) 10/02/22 10/03/22 10/03/22 Range/Units 21:23 04:01 04:01 RBC 2.54 L (4.30-5.90) m/uL Hgb 9.3 L (13.0-17.5) gm/dL Hct 28.1 L (39.0-53.0) % MCV 110.5 H (80.0-100.0) fL MCH 36.7 H (25.0-35.0) pg RDW 17.8 H (11.5-15.5) % Plt Count 129 L (150-450) k/uL Lymphocytes # 0.5 L (1.0-4.8) k/uL Macrocytosis Marked A Sodium 133 L (137-145) mmol/L Carbon Dioxide 18 L (22-30) mmol/L BUN 66 H (9-20) mg/dL Creatinine 1.58 H (0.66-1.25) mg/dL Glucose 140 H (74-99) mg/dL POC Glucose (mg/dL) 177 H (70-110) mg/dL Calcium 8.3 L (8.4-10.2) mg/dL 10/03/22 10/03/22 10/03/22 Range/Units 05:57 11:13 16:09 RBC (4.30-5.90) m/uL Hgb (13.0-17.5) gm/dL Hct (39.0-53.0) % MCV (80.0-100.0) fL MCH (25.0-35.0) pg RDW (11.5-15.5) % Plt Count (150-450) k/uL Lymphocytes # (1.0-4.8) k/uL Macrocytosis Sodium (137-145) mmol/L Carbon Dioxide (22-30) mmol/L BUN (9-20) mg/dL Creatinine (0.66-1.25) mg/dL Glucose (74-99) mg/dL POC Glucose (mg/dL) 163 H 218 H 309 H (70-110) mg/dL Calcium (8.4-10.2) mg/dL Assessment and Plan Assessment: #1 acute kidney injury secondary to cardiorenal syndrome #2 chronic kidney disease stage III with a baseline creatinine of 1.1-1.5 MG per DL. #3 metabolic acidosis #4 CHF with systolic dysfunction EF of 35% #4 volume overload #4 diabetes mellitus Plan: #1 renal function back to baseline. #2 Continue with diuretics. #3 avoid nephrotoxic agents
[2022-10-03 20:24] LABS: Glucose,Whole Blood 314 mg/dL (70-110)
[2022-10-03] MEDS: ATORVASTATIN 40 MG TAB PO SCH (21:37)
[2022-10-03] MEDS: TAMSULOSIN 0.4 MG CAP.ER.24H PO SCH (21:38)
[2022-10-03] MEDS: risperiDONE 0.5 MG TAB PO SCH (21:38)
[2022-10-04 02:56] VITALS: RESP 19
[2022-10-04 06:19] LABS: Glucose,Whole Blood 140 mg/dL (70-110)
[2022-10-04] MEDS: INSULIN ASPART (NovoLOG) 100 UNIT/ML VIAL SQ SCH ×2 (06:30→12:28)
[2022-10-04] MEDS: IPRATROPIUM-ALBUTEROL 3 ML NEB INHALATION SCH ×3 (08:04→15:32)
[2022-10-04] MEDS: predniSONE 20 MG TAB PO SCH (09:21)
[2022-10-04] MEDS: CYANOCOBALAMIN 500 MCG TAB PO SCH (09:21)
[2022-10-04] MEDS: ASPIRIN 81 MG PO SCH (09:21)
[2022-10-04] MEDS: THIAMINE 100 MG TAB PO SCH (09:21)
[2022-10-04] MEDS: AMIODARONE 200 MG TAB PO SCH (09:21)
[2022-10-04] MEDS: SODIUM BICARBONATE TAB 650 MG TAB PO SCH (09:21)
[2022-10-04] MEDS: LORATADINE 10 MG TAB PO SCH (09:21)
[2022-10-04] MEDS: FUROSEMIDE 10 MG/ML 4 ML VIAL IV SCH (09:21)
[2022-10-04] MEDS: FERROUS SULFATE 325 MG TAB PO SCH (09:21)
[2022-10-04] MEDS: allopurinoL 100 MG TAB PO SCH (09:21)
[2022-10-04] MEDS: APIXABAN 5 MG TAB PO SCH (09:21)
[2022-10-04] MEDS: SACUBITRIL/VALSARTAN 24 MG-26 MG TABLET PO SCH (09:22)
[2022-10-04] MEDS: METOPROLOL SUCCINATE (ER) 100 MG TAB.ER.24H PO SCH (09:22)
[2022-10-04 11:24] LABS: Glucose,Whole Blood 196 mg/dL (70-110)
--- NOTE | 2022-10-04 13:56 | P.PN ---
Subjective Progress Note Date: 10/04/22 Follow-up for chronic kidney disease/acute kidney injury Objective - Vital Signs Vital signs: Vital Signs Temp 97.6 F 10/04/22 07:22 Pulse 104 H 10/04/22 11:55 Resp 19 10/04/22 07:22 BP 117/61 10/04/22 07:22 Pulse Ox 94 L 10/04/22 08:04 FiO2 Intake & Output 10/03/22 10/04/22 10/04/22 18:59 06:59 18:59 Output Total 1550 2300 200 Balance -1550 -2300 -200 Weight 98 kg Output: Urine 1550 2300 200 Other: Voiding Method Indwelling Catheter Indwelling Catheter Indwelling Catheter # Bowel Movements 1 - Exam No acute distress S1-S2 heard Lungs clear No edema - Labs CBC & Chem 7: 10/03/22 04:01 10/03/22 04:01 Labs: Abnormal Lab Results - Last 24 Hours (Table) 10/03/22 10/03/22 10/04/22 Range/Units 16:09 20:22 06:18 POC Glucose (mg/dL) 309 H 314 H 140 H (70-110) mg/dL 10/04/22 Range/Units 11:23 POC Glucose (mg/dL) 196 H (70-110) mg/dL Assessment and Plan Assessment: #1 acute kidney injury secondary to cardiorenal syndrome #2 chronic kidney disease stage III with a baseline creatinine of 1.1-1.5 MG per DL. #3 metabolic acidosis #4 CHF with systolic dysfunction EF of 35% #4 volume overload #4 diabetes mellitus Plan: #1 renal function back to baseline. #2 Continue with diuretics. #3 avoid nephrotoxic agents
[2022-10-04 14:11] VITALS: BP 111/69; PULSE 114; TEMP 98.2
--- NOTE | 2022-10-04 14:32 | P.DS ---
Providers Date of admission: 10/01/22 22:50 Expected date of discharge: 10/04/22 Attending physician: Stephani Ibrahim MD Consults: 10/01/22 22:15 Consult Physician Routine Consulting Provider: Bertrand Murcia Consult Reason/Comments: ckd/rudi Do you want consulting provider notified?: Yes, Notify in am Consult Physician Routine Consulting Provider: Hakan Angela Consult Reason/Comments: chf Do you want consulting provider notified?: Yes Primary care physician: Ten Mccartney MD Hospital Course: Discharge Diagnosis: Acute on chronic systolic heart failure Acute COPD exacerbation Acute kidney injury Metabolic acidosis Acute urinary retention Type 2 diabetes Chronic Back pain Hospital Course: 69-year-old male with history of COPD, systolic heart failure, CAD status post stent and pacemaker, atrial fibrillation on Eliquis, hypertension, dyslipidemia, type 2 diabetes, COPD presented for shortness of breath and worsening back pain. In the ED, temperature was 97.8, blood pressure 151/82, saturating at 99% on room air. Initial laboratory workup shows WBC of 10.8, hemoglobin 10.2, sodium 136, potassium 5.5 with slight hemolysis, bicarb 13, creatinine 2.07, proBNP 3000, negative troponin. Chest x-ray independently interpreted, shows no acute process. CT abdomen and pelvis shows no renal calcifications or hydronephrosis. Prominent colonic stool volume noted. Patient admitted for acute kidney injury, CHF exacerbation, and COPD exacerbation. Nephrology and cardiology consulted. Patient started on IV diuretics. Also started on steroids and bron chodilators. Respiratory function improved. Renal function improved. Plan communicated with PCP. Patient seen and examined at bedside. Vital signs reviewed and stable. General: nontoxic, no distress, appears at stated age Derm: warm, dry Head: atraumatic, normocephalic, symmetric Eyes: EOMI, no lid lag, anicteric sclera Mouth: no lip lesion, mucus membranes moist Cardiovascular: S1S2 reg, no murmur Lungs: CTA bilateral, no rhonchi, no rales , no accessory muscle use Abdominal: soft, nontender to palpation, no guarding, no appreciable organomegaly Ext: no gross muscle atrophy, trace edema, no contractures Neuro: CN II-XI grossly intact, no focal neuro deficits Psych: Alert, oriented, appropriate affect A total of 35 minutes of time were spent preparing this complex discharge moraima liriano. Patient was discharged on 10/04/22 at 13:25. Patient Condition at Discharge: Stable Plan - Discharge Summary Discharge Rx Participant: Yes New Discharge Prescriptions: New predniSONE [Deltasone] 40 mg PO DAILY #4 tab Sodium Bicarbonate Tab 650 mg PO TID #0 tab Continue Ferrous Sulfate [Iron] 325 mg PO DAILY risperiDONE [RisperDAL] 0.5 mg PO HS Sertraline HCl [Zoloft] 50 mg PO HS Tamsulosin HCl [Flomax] 0.4 mg PO HS Metoprolol Succinate (ER) [Toprol XL] 100 mg PO BID Apixaban [Eliquis] 5 mg PO BID glipiZIDE [Glucotrol] 5 mg PO BID Loratadine [Claritin] 10 mg PO DAILY Multivit-Min/FA/Lycopen/Lutein [Centrum Silver Men Tablet] 1 tab PO DAILY Acetaminophen Tab [Tylenol] 1,000 mg PO TID PRN PRN Reason: Pain Or Fever > 100.5 allopurinoL [Zyloprim] 100 mg PO DAILY Ergocalciferol [Vitamin D2 (1250 Mcg = 72912 Iu)] 50,000 units PO Q30D Clopidogrel [Plavix] 75 mg PO DAILY 30 Days #30 tab Atorvastatin [Lipitor] 40 mg PO HS 30 Days #30 Cyanocobalamin [Vitamin B-12] 500 mcg PO DAILY Thiamine HCl [Vitamin B-1] 100 mg PO DAILY Amiodarone [Cordarone] 200 mg PO DAILY Menthol [Biofreeze] 1 applic TOPICAL Q6H PRN PRN Reason: Pain Menthol-Zinc Oxide Oint [Calmoseptine Ointment] 1 applic TOPICAL QID PRN PRN Reason: rash/dry skin Sacubitril/Valsartan [Entresto 24 mg-26 mg Tablet] 1 tab PO BID Spironolactone [Aldactone] 50 mg PO DAILY Changed Furosemide [Lasix] 40 mg PO BID #0 Discontinued Oxybutynin Xl [Ditropan XL] 5 mg PO DAILY Discharge Medication List Ergocalciferol [Vitamin D2 (1250 Mcg = 39015 Iu)] 50,000 units PO Q30D 10/21/20 [History] Ferrous Sulfate [Iron] 325 mg PO DAILY 10/21/20 [History] Sertraline HCl [Zoloft] 50 mg PO HS 10/21/20 [History] Tamsulosin HCl [Flomax] 0.4 mg PO HS 10/21/20 [History] allopurinoL [Zyloprim] 100 mg PO DAILY 10/21/20 [History] risperiDONE [RisperDAL] 0.5 mg PO HS 10/21/20 [History] Atorvastatin [Lipitor] 40 mg PO HS 30 Days #30 10/28/20 [Rx] Clopidogrel [Plavix] 75 mg PO DAILY 30 Days #30 tab 10/28/20 [Rx] Apixaban [Eliquis] 5 mg PO BID 05/09/21 [History] Cyanocobalamin [Vitamin B-12] 500 mcg PO DAILY 05/09/21 [History] Metoprolol Succinate (ER) [Toprol XL] 100 mg PO BID 05/09/21 [History] Thiamine HCl [Vitamin B-1] 100 mg PO DAILY 05/09/21 [History] Amiodarone [Cordarone] 200 mg PO DAILY 02/06/22 [History] Loratadine [Claritin] 10 mg PO DAILY 02/06/22 [History] Menthol [Biofreeze] 1 applic TOPICAL Q6H PRN 02/06/22 [History] Multivit-Min/FA/Lycopen/Lutein [Centrum Silver Men Tablet] 1 tab PO DAILY 02/06/22 [History] glipiZIDE [Glucotrol] 5 mg PO BID 02/06/22 [History] Acetaminophen Tab [Tylenol] 1,000 mg PO TID PRN 10/01/22 [History] Menthol-Zinc Oxide Oint [Calmoseptine Ointment] 1 applic TOPICAL QID PRN 10/01/22 [History] Sacubitril/Valsartan [Entresto 24 mg-26 mg Tablet] 1 tab PO BID 10/01/22 [History] Spironolactone [Aldactone] 50 mg PO DAILY 10/01/22 [History] Furosemide [Lasix] 40 mg PO BID #0 10/04/22 [Rx] Sodium Bicarbonate Tab 650 mg PO TID #0 tab 10/04/22 [Rx] predniSONE [Deltasone] 40 mg PO DAILY #4 tab 10/04/22 [Rx] Follow up Appointment(s)/Referral(s): Ten Mccartney MD [Primary Care Provider] - 1 Week Patient Instructions/Handouts: Heart Failure (DC), Acute Kidney Injury (DC) Activity/Diet/Wound Care/Special Instructions: Please see your PCP. Discharge Disposition: HOME SELF-CARE
== END 2022-10-04 15:43 | disposition home or self-care (01) | DRG 291 ==
LOC: EC 15:38 → 4SSUR 22:50
PROVIDERS: ADMIT Internal Medicine; ATTEND Internal Medicine
DX: I13.0 Hypertensive heart and chronic kidney disease with heart failure and stage 1 through stage 4 chronic kidney disease, or unspecified chronic kidney disease (principal); I50.23 Acute on chronic systolic (congestive) heart failure; N17.0 Acute kidney failure with tubular necrosis; E87.20 Acidosis, unspecified; J44.1 Chronic obstructive pulmonary disease with (acute) exacerbation; I48.21 Permanent atrial fibrillation; I27.20 Pulmonary hypertension, unspecified; E11.22 Type 2 diabetes mellitus with diabetic chronic kidney disease; D75.89 Other specified diseases of blood and blood-forming organs; N18.31 Chronic kidney disease, stage 3a; R33.9 Retention of urine, unspecified; G89.29 Other chronic pain; E78.5 Hyperlipidemia, unspecified; I25.10 Atherosclerotic heart disease of native coronary artery without angina pectoris; I45.10 Unspecified right bundle-branch block; I08.3 Combined rheumatic disorders of mitral, aortic and tricuspid valves; I25.5 Ischemic cardiomyopathy; Z79.01 Long term (current) use of anticoagulants; Z95.5 Presence of coronary angioplasty implant and graft; Z95.810 Presence of automatic (implantable) cardiac defibrillator; Z86.16 Personal history of COVID-19; Z87.891 Personal history of nicotine dependence; Z79.02 Long term (current) use of antithrombotics/antiplatelets; Z79.84 Long term (current) use of oral hypoglycemic drugs; Z79.899 Other long term (current) drug therapy
CPT/HCPCS: 36415; 71046; 74176; 76770; 80048; 80053; 81001; 83036; 83605; 83735; 83880; 84443; 84484; 85025; 85610; 85730; 93005; 93306; 94640; 94760; 99285

== ENCOUNTER 2022-10-08 09:28 | Emergency (ER) | payer MEDICARE, OTHER ==
--- NOTE | 2022-10-08 09:37 | ED ---
General Adult HPI - General Chief complaint: Back Pain/Injury Stated complaint: Back Pain Time Seen by Provider: 10/08/22 09:35 Source: patient Mode of arrival: EMS Limitations: no limitations - History of Present Illness Initial comments: 72-year-old male presents to the emergency room from nursing facility, awake and alert complaining of mid lower back pain for several months. Patient states that they've just been giving him Tylenol with no relief. Denies any traumas or falls. Denies any fevers. States he has not had any imaging in the past. -: month(s) Location: back Severity scale (1-10): 9 Quality: aching, constant Consistency: constant Associated Symptoms: denies other symptoms Treatments Prior to Arrival: none - Related Data Home Medications Medication Instructions Recorded Confirmed Ergocalciferol [Vitamin D2 (1250 50,000 units PO Q30D 10/21/20 10/01/22 Mcg = 10366 Iu)] Ferrous Sulfate [Iron] 325 mg PO DAILY 10/21/20 10/01/22 Sertraline HCl [Zoloft] 50 mg PO HS 10/21/20 10/01/22 Tamsulosin HCl [Flomax] 0.4 mg PO HS 10/21/20 10/01/22 allopurinoL [Zyloprim] 100 mg PO DAILY 10/21/20 10/01/22 risperiDONE [RisperDAL] 0.5 mg PO HS 10/21/20 10/01/22 Apixaban [Eliquis] 5 mg PO BID 05/09/21 10/01/22 Cyanocobalamin [Vitamin B-12] 500 mcg PO DAILY 05/09/21 10/01/22 Metoprolol Succinate (ER) [Toprol 100 mg PO BID 05/09/21 10/01/22 XL] Thiamine HCl [Vitamin B-1] 100 mg PO DAILY 05/09/21 10/01/22 Amiodarone [Cordarone] 200 mg PO DAILY 02/06/22 10/01/22 Loratadine [Claritin] 10 mg PO DAILY 02/06/22 10/01/22 Menthol [Biofreeze] 1 applic TOPICAL Q6H PRN 02/06/22 10/01/22 Multivit-Min/FA/Lycopen/Lutein 1 tab PO DAILY 02/06/22 10/01/22 [Centrum Silver Men Tablet] glipiZIDE [Glucotrol] 5 mg PO BID 02/06/22 10/01/22 Acetaminophen Tab [Tylenol] 1,000 mg PO TID PRN 10/01/22 10/01/22 Menthol-Zinc Oxide Oint 1 applic TOPICAL QID PRN 10/01/22 10/01/22 [Calmoseptine Ointment] Sacubitril/Valsartan [Entresto 24 1 tab PO BID 10/01/22 10/01/22 mg-26 mg Tablet] Spironolactone [Aldactone] 50 mg PO DAILY 10/01/22 10/01/22 Previous Rx's Medication Instructions Recorded Atorvastatin [Lipitor] 40 mg PO HS 30 Days #30 10/28/20 Clopidogrel [Plavix] 75 mg PO DAILY 30 Days #30 tab 10/28/20 Furosemide [Lasix] 40 mg PO BID #0 10/04/22 Sodium Bicarbonate Tab 650 mg PO TID #0 tab 10/04/22 predniSONE [Deltasone] 40 mg PO DAILY #4 tab 10/04/22 Lidocaine 5% Patch [Lidoderm] 1 patch TOPICAL DAILY 14 Days #14 10/08/22 patch Allergies Allergy/AdvReac Type Severity Reaction Status Date / Time No Known Allergies Allergy Verified 10/01/22 21:22 Review of Systems ROS Statement: Those systems with pertinent positive or pertinent negative responses have been documented in the HPI. ROS Other: All systems not noted in ROS Statement are negative. Past Medical History Past Medical History: Atrial Fibrillation, Coronary Artery Disease (CAD), Heart Failure, Diabetes Mellitus, Hyperlipidemia, Hypertension Additional Past Medical History / Comment(s): See Dr Piedra's H&P. "Feet cold sometimes". Gout. Hx UTI and kidney infection with Covid. History of Any Multi-Drug Resistant Organisms: None Reported Past Surgical History: Heart Catheterization With Stent, Orthopedic Surgery, Pacemaker Additional Past Surgical History / Comment(s): 2 STENTS DEC 2020, left hip surgery X2. Past Anesthesia/Blood Transfusion Reactions: No Reported Reaction, Postoperative Nausea & Vomiting (PONV) Additional Past Anesthesia/Blood Transfusion Reaction / Comment(s): UNKNOWN FAMILY HX. Date of Last Stent Placement:: DEC 2020 Type of Cardiac Device: Unknown Device Placement Date:: Unknown Past Psychological History: Anxiety, Depression Smoking Status: Former smoker Past Alcohol Use History: None Reported Past Drug Use History: None Reported - Past Family History Mother Family Medical History: Cancer Brother(s) Family Medical History: Cancer Additional Family Medical History / Comment(s): Lung cancer. Father History Unknown: Yes Family Medical History: Hyperlipidemia General Exam Limitations: no limitations General appearance: alert, in no apparent distress Head exam: Present: atraumatic Eye exam: Present: normal appearance. Absent: scleral icterus, conjunctival injection, periorbital swelling ENT exam: Present: mucous membranes moist Neck exam: Present: full ROM. Absent: tenderness, meningismus Respiratory exam: Present: normal lung sounds bilaterally. Absent: respiratory distress, accessory muscle use Cardiovascular Exam: Present: regular rate GI/Abdominal exam: Present: soft, normal bowel sounds. Absent: distended, tenderness, guarding, rebound, rigid Extremities exam: Present: normal capillary refill Back exam: Present: normal inspection, tenderness, vertebral tenderness (low thoracic). Absent: CVA tenderness (R), CVA tenderness (L) Expanded Back exam: Absent: saddle anesthesia Back exam: Negative Straight Leg Raising: Left, Right Neurological exam: Present: alert, oriented X3 Expanded Patient oriented to: Present: person, place Speech: Present: fluid speech Motor strength exam: RUE: 5, LUE: 5, RLE: 4, LLE: 4 Eye Response: (4) open spontaneously Motor Response: (6) obeys commands Verbal Response: (5) oriented Ainsley Total: 15 Psychiatric exam: Present: normal affect, normal mood Skin exam: Present: warm, dry, normal color. Absent: cyanosis, diaphoretic, petechiae Course Vital Signs 10/08/22 10/08/22 10/08/22 09:31 11:59 12:45 Temperature 97.2 F L 97.5 F L Pulse Rate 98 100 99 Respiratory 16 16 17 Rate Blood Pressure 131/90 111/72 117/95 O2 Sat by Pulse 98 100 97 Oximetry 10/08/22 14:00 Temperature 97.6 F Pulse Rate 98 Respiratory 18 Rate Blood Pressure 118/84 O2 Sat by Pulse 98 Oximetry Medical Decision Making - Medical Decision Making Was pt. sent in by a medical professional or institution (, PA, COLLEGE ARCHIVIST, urgent care, hospital, or usp...) When possible be specific @ -Sent from nursing facility Did you speak to anyone other than the patient for history (EMS, parent, family, police, friend...)? What history was obtained from this source @ -No Did you review nursing and triage notes (agree or disagree)? Why? @ -I reviewed and agree with nursing and triage notes Were old charts reviewed (outside hosp., previous admission, EMS record, old EKG, old radiological studies, urgent care reports/EKG's, usp records)? Report findings @ -Yes hospital and discharge records from October 01- Differential Diagnosis (chest pain, altered mental status, abdominal pain women, abdominal pain men, vaginal bleeding, weakness, fever, dyspnea, syncope, headache, dizziness, GI bleed, back pain, seizure, CVA, palpatations, mental health, musculoskeletal)? @ -Differential Back Pain: Strain, zoster, cauda equina syndrome, epidural abscess, vertebral osteomyelitis, discitis, fracture, subluxation, disc herniation, DJD, spinal stenosis, dissection, AAA, pancreatitis, peptic ulcer disease, pyelonephritis, kidney stone, this is not an all-inclusive list. EKG interpreted by me (3pts min.). @ -n/a X-rays interpreted by me (1pt min.). @ -yes compression fractures noted from L2-L4 CT interpreted by me (1pt min.). @ -None done U/S interpreted by me (1pt. min.). @ -None done What testing was considered but not performed or refused? (CT, X-rays, U/S, labs)? Why? @ -None What meds were considered but not given or refused? Why? @ -None Did you discuss the management of the patient with other professionals (professionals i.e. , PA, COLLEGE ARCHIVIST, lab, RT, psych nurse, social services assistant, curriculum developer, teacher, licensing officer, trimming caser)? Give summary @ -No Was smoking cessation discussed for >3mins.? @ -No Was critical care preformed (if so, how long)? @ -No Were there social determinants of health that impacted care today? How? (Homelessness, low income, unemployed, alcoholism, drug addiction, transportation, low edu. Level, literacy, decrease access to med. care, custodial, rehab)? @ -No Was there de-escalation of care discussed even if they declined (Discuss DNR or withdrawal of care, Hospice)? DNR status @ -No What co-morbidities impacted this encounter? (DM, HTN, Smoking, COPD, CAD, Cancer, CVA, ARF, Chemo, Hep., AIDS, mental health diagnosis, sleep apnea, morbid obesity)? @ -Patient has history of A. fib, coronary artery disease, heart failure, diabetes, hypertension, 2 cardiac stents, pacemaker, obesity. Was patient admitted / discharged? Hospital course, mention meds given and route, prescriptions, significant lab abnormalities, going to OR and other pertinent info. @ -Discharged 72-year-old male presents to the emergency room from nursing facility, awake and alert complaining of mid lower back pain for several months. Patient states that they've just been giving him Tylenol with no relief. Denies any traumas or falls. Denies any fevers. States he has not had any imaging in the past. States back pain 9 out of 10. The patient was recently discharged from the hospital and medical records were reviewed. CT abdomen and pelvis without contrast 10/01/2022 for flank pain and altered mental status. Osseous structures with no abnormality seen. Prominent mcnair colonic stool volume noted. Labs drawn on October 02- show no evidence of leukocytosis, hemoglobin and hematocrit were stable. GFR 43. Urinalysis showed 96 white blood cells and large leukocyte esterase. He was discharged on October 04 with acute on chronic systolic heart failure, acute COPD exacerbation, acute kidney injury, metabolic acidosis directed to follow up with his primary care doctor Bib in 1 week. Patient is able to lift his legs up off the bed. Sensation intact. No history of cancers. No trauma. No fevers. No other concerning red flags. I performed an X-ray of Lumbar spine which shows diffuse osteopenia with multiple compression fractures which appear stable relative to computed tomography scan 10/01/2022. Severe compression fracture L1 with retropulsion. Patient was given Tylenol in the Lidoderm patch. I encouraged him to speak with his primary care doctor regarding his pain. He was discharged back to the facility. Case discussed with Dr. Bui. Undiagnosed new problem with uncertain prognosis? @ -No Drug Therapy requiring intensive monitoring for toxicity (Heparin, Nitro, Insulin, Cardizem)? @ -No Were any procedures done? @ -No Diagnosis/symptom? @ -Chronic low back pain Acute, or Chronic, or Acute on Chronic? @ -Chronic Uncomplicated (without systemic symptoms) or Complicated (systemic symptoms)? @ -Uncomplicated Side effects of treatment? @ -No Exacerbation, Progression, or Severe Exacerbation? @ -No Poses a threat to life or bodily function? How? (Chest pain, [place], [place], pneumonia, PE, COPD, DKA, ARF, appy, cholecystitis, CVA, Diverticulitis, Homicidal, Suicidal, threat to staff... and all critical care pts) @ -No - Lab Data Lab Results 10/08/22 Range/Units 10:33 Urine Color Yellow Urine Appearance Cloudy (Clear) Urine pH 5.5 (5.0-8.0) Ur Specific [place] 1.020 (1.001-1.035) Urine Protein Trace H (Negative) Urine Glucose (UA) Negative (Negative) Urine Ketones Negative (Negative) Urine Blood Negative (Negative) Urine Nitrite Positive (Negative) Urine Bilirubin Negative (Negative) Urine Urobilinogen <2.0 (<2.0) mg/dL Ur Leukocyte Esterase Large (Negative) Urine RBC 1 (0-5) /hpf Urine WBC 166 H (0-5) /hpf Ur Squamous Epith Cells 1 (0-4) /hpf Urine Bacteria Moderate H (None) /hpf Urine Mucus Rare H (None) /hpf Disposition Clinical Impression: Chronic low back pain, Compression fracture of lumbar vertebra Disposition: HOME SELF-CARE Condition: Good Instructions (If sedation given, give patient instructions): Chronic Back Pain (DC) Additional Instructions: Continue Tylenol for pain along with Lidoderm patches which may help improve your discomfort. Follow-up with your primary care doctor next week. Prescriptions: Lidocaine 5% Patch [Lidoderm] 1 patch TOPICAL DAILY 14 Days #14 patch Is patient prescribed a controlled substance at d/c from ED?: No Referrals: Ten Mccartney MD [REFERRING] - 1-2 days Time of Disposition: 13:41
[2022-10-08] MEDS ORDERED: ACETAMINOPHEN TAB 325 MG TAB PO STA (09:49)
--- NOTE | 2022-10-08 11:13 | XR ---
EXAM TYPE: LUMBAR SPINE X RAY SERIES COMPARISON: CT scan 10/01/2022 HISTORY: Pain TECHNIQUE: 3 views are submitted. FINDINGS: Alignment is anatomic. The pedicles are intact. The transverse processes are intact. There is diff use osteopenia with curvature of the spine. There is a severe compression fracture upper lumbar spine approximately level L1. Multilevel [id number] degenerative disease most marked at L4-5 and L5- S1. Mild superior endplate compression fractures L2, L3 and L4 also suspected. Grade 1 anterolisthesi s of L4 on L5. Vascular calcifications are noted particularly on artery. There is multilevel facet arthropathy. IMPRESSION: 1. Diffuse osteopenia with multiple compression fractures which appear stable relative to the CT sca n of 10/01/2022. Severe compression fracture L1 with retropulsion.
[2022-10-08] MEDS ORDERED: LIDOCAINE 5% PATCH TOPICAL SCH (12:00)
[2022-10-08 13:23] LABS: Bacteria,Urine Moderate /hpf; Mucus,Urine Rare /hpf; RBC,Urine 1 /hpf (0-5); Squamous Epithelial Cell,Urine 1 /hpf (0-4); WBC,Urine 166 /hpf (0-5)
[2022-10-08 13:27] LABS: Appearance,Urine Cloudy (Clear); Bilirubin,Urine Negative (Negative); Blood,Urine Negative (Negative); Color,Urine Yellow; Glucose,Urine (UA) Negative (Negative); Ketones,Urine Negative (Negative); PH, Urine 5.5 (5.0-8.0); Protein,Urine Trace (Negative); Urobilinogen,Urine <2.0 mg/dL (<2.0)
[2022-10-08 13:28] LABS: Leukocyte Esterase,Urine Large (Negative); Nitrite,Urine Positive (Negative)
[2022-10-08 14:02] VITALS: BP 118/84; PULSE 98; RESP 18; TEMP 97.6
== END 2022-10-08 14:32 | disposition home or self-care (01) ==
LOC: EC 09:28
DX: S32.020A Wedge compression fracture of second lumbar vertebra, initial encounter for closed fracture (principal); S32.030A Wedge compression fracture of third lumbar vertebra, initial encounter for closed fracture; S32.040A Wedge compression fracture of fourth lumbar vertebra, initial encounter for closed fracture; S32.010A Wedge compression fracture of first lumbar vertebra, initial encounter for closed fracture; G89.29 Other chronic pain; I11.0 Hypertensive heart disease with heart failure; I50.23 Acute on chronic systolic (congestive) heart failure; I25.10 Atherosclerotic heart disease of native coronary artery without angina pectoris; E11.9 Type 2 diabetes mellitus without complications; I48.91 Unspecified atrial fibrillation; F32.A Depression, unspecified; F41.9 Anxiety disorder, unspecified; M10.9 Gout, unspecified; Z79.01 Long term (current) use of anticoagulants; Z79.84 Long term (current) use of oral hypoglycemic drugs; Z79.899 Other long term (current) drug therapy; Z86.16 Personal history of COVID-19; Z87.891 Personal history of nicotine dependence; Z95.5 Presence of coronary angioplasty implant and graft; X58.XXXA Exposure to other specified factors, initial encounter
CPT/HCPCS: 72100; 81001; 99285

== ENCOUNTER 2022-10-16 08:09 | Emergency (ER) | payer MEDICARE, OTHER ==
[2022-10-16 09:40] LABS: Anisocytosis Slight; Basophils % (A) 0 %; Eosinophils # (A) 0.1 k/uL (0-0.7); Eosinophils % (A) 1 %; HCT 33.4 % (39.0-53.0); HGB 10.9 gm/dL (13.0-17.5); Lymphocytes # (A) 0.6 k/uL (1.0-4.8); Lymphocytes % (A) 5 %; MCH 36.3 pg (25.0-35.0); MCHC 32.8 g/dL (31.0-37.0); MCV 110.8 fL (80.0-100.0); Macrocytosis Marked; Mean Platelet Volume 7.8; Monocytes # (A) 0.5 k/uL (0-1.0); Monocytes % (A) 4 %; Neutrophils # (A) 10.4 k/uL (1.3-7.7); Neutrophils % (A) 89 %; Platelet Count 221 k/uL (150-450); Poikilocytosis Slight; RBC 3.01 m/uL (4.30-5.90); WBC 11.7 k/uL (3.8-10.6)
[2022-10-16 09:50] LABS: Albumin 3.2 g/dL (3.5-5.0); Calcium 8.5 mg/dL (8.4-10.2); Chloride 105 mmol/L (98-107); Glucose 128 mg/dL (74-99); Magnesium 1.8 mg/dL (1.6-2.3); Potassium 4.4 mmol/L (3.5-5.1); Sodium 135 mmol/L (137-145)
[2022-10-16 09:51] LABS: INR 1.1 (<1.2); Partial Thromboplastin Time 27.8 sec (22.0-30.0); Prothrombin Time 11.5 sec (9.0-12.0)
[2022-10-16 09:54] LABS: African American GFR (CKD) 52 (>60 ml/min/1.73 sqM); Non-African American GFR(CKD) 45 (>60 ml/min/1.73 sqM)
[2022-10-16 09:55] LABS: Anion Gap 12 mmol/L; Carbon Dioxide 18 mmol/L (22-30); Total Bilirubin 0.4 mg/dL (0.2-1.3)
[2022-10-16 09:56] LABS: AST 29 U/L (17-59); Blood Urea Nitrogen 44 mg/dL (9-20); Total Protein 7.8 g/dL (6.3-8.2)
[2022-10-16 09:59] LABS: NT-Pro-B-Type Natriuretic Pept 1400 pg/mL
--- NOTE | 2022-10-16 09:59 | XR ---
EXAMINATION TYPE: XR chest 2V DATE OF EXAM: 10/16/2022 COMPARISON: 10/01/2022 HISTORY: 72-year-old male dysrhythmia TECHNIQUE: AP and lateral views FINDINGS: Left anterior chest wall AICD generator with right atrial and ventricular leads. Heart mildly enlarge d. Hyperinflation. Patient's large ventriculus projects over the lung bases limiting the evaluation. Interstitial/vascular prominence. No consolidation or pleural effusion seen. IMPRESSION: Mild cardiomegaly and suspected underlying COPD. Clinically correlate. There is interstitial prominen ce which may be chronic or could reflect mild pulmonary vascular congestion. Left-sided AICD generato r with 2 leads.
[2022-10-16] MEDS ORDERED: NALOXONE 0.4 MG/ML 1 ML VIAL IV PRN (10:13)
--- NOTE | 2022-10-16 10:13 | ED ---
Arrhythmia/Palpitations HPI - General Chief Complaint: Arrhythmia/Palpitations Stated Complaint: Back Pain Time Seen by Provider: 10/16/22 08:15 Source: EMS Mode of arrival: EMS Limitations: no limitations - History of Present Illness Initial Comments: 72-year-old male who presents to the emergency department from [facility] stating that his device is going off on him. Patient has permanent A. fib and history of nonsustained V. tach for which she does have an ICD. States that he woke this morning with his typical chronic back pain however he felt like his device was shocking him. EMS did pick the patient up and found him to be in A. fib without a rapid rate. Patient cannot tell me how me times it shocked him as he is a poor historian. Denies any chest pain. No shortness of breath. He denies any new or worsening symptoms in regards to his back pain. No other alleviating, precipitating or modifying factors - Related Data Home Medications Medication Instructions Recorded Confirmed Ferrous Sulfate [Iron] 325 mg PO DAILY@79910/21/20 10/16/22 Sertraline HCl [Zoloft] 50 mg PO HS@199910/21/20 10/16/22 Tamsulosin HCl [Flomax] 0.4 mg PO HS@199910/21/20 10/16/22 allopurinoL [Zyloprim] 100 mg PO DAILY@79910/21/20 10/16/22 risperiDONE [RisperDAL] 0.5 mg PO HS@199910/21/20 10/16/22 Apixaban [Eliquis] 5 mg PO BID@799,199905/09/21 10/16/22 Cyanocobalamin [Vitamin B-12] 500 mcg PO DAILY@79905/09/21 10/16/22 Metoprolol Succinate (ER) [Toprol 100 mg PO BID@799,199905/09/21 10/16/22 XL] Thiamine HCl [Vitamin B-1] 100 mg PO DAILY@79905/09/21 10/16/22 Amiodarone [Cordarone] 200 mg PO DAILY@79902/06/22 10/16/22 Loratadine [Claritin] 10 mg PO DAILY@79902/06/22 10/16/22 Multivit-Min/FA/Lycopen/Lutein 1 tab PO DAILY@00 02/06/22 10/16/22 [Centrum Silver Men Tablet] glipiZIDE [Glucotrol] 5 mg PO BID@0800,199902/06/22 10/16/22 Acetaminophen Tab [Tylenol] 1,000 mg PO TID@0800,1600,199910/01/22 10/16/22 Sacubitril/Valsartan [Entresto 24 1 tab PO BID@08,199910/01/22 10/16/22 mg-26 mg Tablet] Spironolactone [Aldactone] 50 mg PO DAILY@0800 10/01/22 10/16/22 Atorvastatin [Lipitor] 40 mg PO HS@199910/16/22 10/16/22 Clopidogrel [Plavix] 75 mg PO DAILY@00 10/16/22 10/16/22 Furosemide [Lasix] 40 mg PO BID@0800,1400 10/16/22 10/16/22 oxyBUTYnin chloride [Ditropan] 5 mg PO DAILY@0800 10/16/22 10/16/22 Allergies Allergy/AdvReac Type Severity Reaction Status Date / Time No Known Allergies Allergy Verified 10/16/22 10:35 Review of Systems ROS Statement: Those systems with pertinent positive or pertinent negative responses have been documented in the HPI. ROS Other: All systems not noted in ROS Statement are negative. Past Medical History Past Medical History: Atrial Fibrillation, Coronary Artery Disease (CAD), Heart Failure, Diabetes Mellitus, Hyperlipidemia, Hypertension Additional Past Medical History / Comment(s): See Dr Piedra's H&P. "Feet cold sometimes". Gout. Hx UTI and kidney infection with Covid. History of Any Multi-Drug Resistant Organisms: None Reported Past Surgical History: Heart Catheterization With Stent, Orthopedic Surgery, Pacemaker Additional Past Surgical History / Comment(s): 2 STENTS DEC 2020, left hip surgery X2. Past Anesthesia/Blood Transfusion Reactions: No Reported Reaction, Postoperative Nausea & Vomiting (PONV) Additional Past Anesthesia/Blood Transfusion Reaction / Comment(s): UNKNOWN FAMILY HX. Date of Last Stent Placement:: DEC 2020 Type of Cardiac Device: Unknown Device Placement Date:: Unknown Past Psychological History: Anxiety, Depression Smoking Status: Former smoker Past Alcohol Use History: None Reported Past Drug Use History: None Reported - Past Family History Mother Family Medical History: Cancer Brother(s) Family Medical History: Cancer Additional Family Medical History / Comment(s): Lung cancer. Father History Unknown: Yes Family Medical History: Hyperlipidemia General Exam Limitations: physical limitation (Poor historian) General appearance: alert, in no apparent distress Head exam: Present: atraumatic, normocephalic, normal inspection Eye exam: Present: normal appearance, PERRL, EOMI. Absent: scleral icterus, conjunctival injection, periorbital swelling ENT exam: Present: normal exam, mucous membranes moist Neck exam: Present: normal inspection. Absent: tenderness, meningismus, lymphadenopathy Respiratory exam: Present: normal lung sounds bilaterally. Absent: respiratory distress, wheezes, rales, rhonchi, stridor Cardiovascular Exam: Present: regular rate, normal rhythm, normal heart sounds. Absent: systolic murmur, diastolic murmur, rubs, gallop, clicks GI/Abdominal exam: Present: soft, normal bowel sounds. Absent: distended, tenderness, guarding, rebound, rigid Extremities exam: Present: normal inspection, full ROM, normal capillary refill. Absent: tenderness, pedal edema, joint swelling, calf tenderness Back exam: Present: normal inspection Neurological exam: Present: alert, oriented X3, CN II-XII intact Psychiatric exam: Present: normal affect, normal mood Skin exam: Present: warm, dry, intact, normal color. 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 sent in by a medical professional or institution (, PA, FUEL CELL TEST ENGINEER, urgent care, hospital, or usp...) When possible be specific @ -Patient sent in from [facility] Did you speak to anyone other than the patient for history (EMS, parent, family, police, friend...)? What history was obtained from this source @ -Spoke with EMS Did you review nursing and triage notes (agree or disagree)? Why? @ -I reviewed and agree with nursing and triage notes Were old charts reviewed (outside hosp., previous admission, EMS record, old E KG, old radiological studies, urgent care reports/EKG's, usp records)? Report findings @ -I reviewed the patient's most recent discharge summary from the hospital which demonstrates chronic back pain and permanent A. fib Differential Diagnosis (chest pain, altered mental status, abdominal pain women, abdominal pain men, vaginal bleeding, weakness, fever, dyspnea, syncope, headache, dizziness, GI bleed, back pain, seizure, CVA, palpatations, mental health, musculoskeletal)? @ -Differential Palpitations Ventricular arrhythmias, atrial arrhythmias, myocardial infarction, anemia, thyrotoxicosis, electrolyte imbalance, hypokalemia, pulmonary embolism, pulmonary disease, drugs, alcohol, anxiety, stress.... This is not meant to be an all-inclusive list. EKG interpreted by me (3pts min.). @ -Yes and demonstrates A. fib with a rate of 103. QRS 157. QTC of 468. Right bundle branch block. No acute ST segment elevations X-rays interpreted by me (1pt min.). @ -Yes and demonstrates no acute process CT interpreted by me (1pt min.). @ -None done U/S interpreted by me (1pt. min.). @ -None done What testing was considered but not performed or refused? (CT, X-rays, U/S, labs)? Why? @ -None What meds were considered but not given or refused? Why? @ -None Did you discuss the management of the patient with other professionals (professionals i.e. , PA, FUEL CELL TEST ENGINEER, lab, RT, psych nurse, social services designee, toll bridge operator, teacher, chief data officer, home health care case manager)? Give summary @ -Dr. Guerra does present to the emergency department and evaluates the patient. States that he can be sent home as his device interrogation did not demonstrate any shocks delivered. Also spoke with the device rep Was smoking cessation discussed for >3mins.? @ -No Was critical care preformed (if so, how long)? @ -No Were there social determinants of health that impacted care today? How? (Homelessness, low income, unemployed, alcoholism, drug addiction, transportation, low edu. Level, literacy, decrease access to med. care, [facility], rehab)? @ -No Was there de-escalation of care discussed even if they declined (Discuss DNR or withdrawal of care, Hospice)? DNR status @ -No What co-morbidities impacted this encounter? (DM, HTN, Smoking, COPD, CAD, Cancer, CVA, ARF, Chemo, Hep., AIDS, mental health diagnosis, sleep apnea, morbid obesity)? @ -Nonsustained V. tach, A. fib, ischemic cardiomyopathy Was patient admitted / discharged? Hospital course, mention meds given and route, prescriptions, significant lab abnormalities, going to OR and other pertinent info. @ -Upon arrival patient was placed into room 2. Thorough history and physical exam was performed. Patient's device did not go off on him while he was in the emergency department. He is hooked to continuous pulse ox and cardiac monitoring. 12-lead EKG was obtained. His device was interrogated. Laboratory studies are conducted. We did get return of his device interrogation. States that the device did not go off on him. Dr. Guerra does evaluate the patient. States that he can be sent back as it did not shock him. Patient was given a dose of morphine for his chronic back pain and sent back to [facility] in stable condition. Instructed to return for any new or worsening symptoms Undiagnosed new problem with uncertain prognosis? @ -No Drug Therapy requiring intensive monitoring for toxicity (Heparin, Nitro, Insulin, Cardizem)? @ -No Were any procedures done? @ -No Diagnosis/symptom? @ -Acute palpitations, permanent A. fib, chronic back pain Acute, or Chronic, or Acute on Chronic? @ -Acute on chronic Uncomplicated (without systemic symptoms) or Complicated (systemic symptoms)? @ -Complicated Side effects of treatment? @ -No Exacerbation, Progression, or Severe Exacerbation? @ -No Poses a threat to life or bodily function? How? (Chest pain, [place], [place], pneumonia, PE, COPD, DKA, ARF, appy, cholecystitis, CVA, Diverticulitis, Homicidal, Suicidal, threat to staff... and all critical care pts) @ -No - Lab Data Result diagrams: 10/16/22 08:24 10/16/22 08:24 Lab Results 10/16/22 10/16/22 10/16/22 Range/Units 08:24 08:24 08:24 WBC 11.7 H (3.8-10.6) k/uL RBC 3.01 L (4.30-5.90) m/uL Hgb 10.9 L (13.0-17.5) gm/dL Hct 33.4 L (39.0-53.0) % MCV 110.8 H (80.0-100.0) fL MCH 36.3 H (25.0-35.0) pg MCHC 32.8 (31.0-37.0) g/dL RDW 17.0 H (11.5-15.5) % Plt Count 221 (150-450) k/uL MPV 7.8 Neutrophils % 89 % Lymphocytes % 5 % Monocytes % 4 % Eosinophils % 1 % Basophils % 0 % Neutrophils # 10.4 H (1.3-7.7) k/uL Lymphocytes # 0.6 L (1.0-4.8) k/uL Monocytes # 0.5 (0-1.0) k/uL Eosinophils # 0.1 (0-0.7) k/uL Basophils # 0.0 (0-0.2) k/uL Poikilocytosis Slight Anisocytosis Slight Macrocytosis Marked A PT 11.5 (9.0-12.0) sec INR 1.1 (<1.2) APTT 27.8 (22.0-30.0) sec Sodium 135 L (137-145) mmol/L Potassium 4.4 (3.5-5.1) mmol/L Chloride 105 (98-107) mmol/L Carbon Dioxide 18 L (22-30) mmol/L Anion Gap 12 mmol/L BUN 44 H (9-20) mg/dL Creatinine 1.52 H (0.66-1.25) mg/dL Est GFR (CKD-EPI)AfAm 52 (>60 ml/min/1.73 sqM) Est GFR (CKD-EPI)NonAf 45 (>60 ml/min/1.73 sqM) Glucose 128 H (74-99) mg/dL Calcium 8.5 (8.4-10.2) mg/dL Magnesium 1.8 (1.6-2.3) mg/dL Total Bilirubin 0.4 (0.2-1.3) mg/dL AST 29 (17-59) U/L ALT 29 (4-49) U/L Alkaline Phosphatase 65 (38-126) U/L Troponin I (0.000-0.034) ng/mL NT-Pro-B Natriuret Pep 1400 pg/mL Total Protein 7.8 (6.3-8.2) g/dL Albumin 3.2 L (3.5-5.0) g/dL 10/16/22 Range/Units 08:24 WBC (3.8-10.6) k/uL RBC (4.30-5.90) m/uL Hgb (13.0-17.5) gm/dL Hct (39.0-53.0) % MCV (80.0-100.0) fL MCH (25.0-35.0) pg MCHC (31.0-37.0) g/dL RDW (11.5-15.5) % Plt Count (150-450) k/uL MPV Neutrophils % % Lymphocytes % % Monocytes % % Eosinophils % % Basophils % % Neutrophils # (1.3-7.7) k/uL Lymphocytes # (1.0-4.8) k/uL Monocytes # (0-1.0) k/uL Eosinophils # (0-0.7) k/uL Basophils # (0-0.2) k/uL Poikilocytosis Anisocytosis Macrocytosis PT (9.0-12.0) sec INR (<1.2) APTT (22.0-30.0) sec Sodium (137-145) mmol/L Potassium (3.5-5.1) mmol/L Chloride (98-107) mmol/L Carbon Dioxide (22-30) mmol/L Anion Gap mmol/L BUN (9-20) mg/dL Creatinine (0.66-1.25) mg/dL Est GFR (CKD-EPI)AfAm (>60 ml/min/1.73 sqM) Est GFR (CKD-EPI)NonAf (>60 ml/min/1.73 sqM) Glucose (74-99) mg/dL Calcium (8.4-10.2) mg/dL Magnesium (1.6-2.3) mg/dL Total Bilirubin (0.2-1.3) mg/dL AST (17-59) U/L ALT (4-49) U/L Alkaline Phosphatase (38-126) U/L Troponin I <0.012 (0.000-0.034) ng/mL NT-Pro-B Natriuret Pep pg/mL Total Protein (6.3-8.2) g/dL Albumin (3.5-5.0) g/dL Disposition Clinical Impression: Defibrillator discharge Disposition: HOME SELF-CARE Condition: Stable Instructions (If sedation given, give patient instructions): Heart Palpitations (ED) Additional Instructions: We interrogated your device and it did not go off. Please follow up with your doctor and return for any new or worsening symptoms. Is patient prescribed a controlled substance at d/c from ED?: No Referrals: Brad Lopez MD [Primary Care Provider] - 1-2 days Time of Disposition: 10:13 Decision to Admit Reason: Admit from EC Decision Date: 10/16/22 Decision Time: 10:13
[2022-10-16 10:17] LABS: ALT 29 U/L (4-49); Alkaline Phosphatase 65 U/L (38-126)
[2022-10-16] MEDS ORDERED: MORPHINE SULFATE 4 MG/ML SYRINGE IVP STA (10:31)
[2022-10-16 11:02] VITALS: BP 101/65; PULSE 102; RESP 16; TEMP 98.1
== END 2022-10-16 11:12 | disposition home or self-care (01) ==
LOC: EC 08:09 → UNDOADMOB 10:13 → 6NMEDSUR 10:13 → EC 11:12
DX: T82.897A Other specified complication of cardiac prosthetic devices, implants and grafts, initial encounter (principal); I48.91 Unspecified atrial fibrillation; G89.29 Other chronic pain; M54.9 Dorsalgia, unspecified; E11.9 Type 2 diabetes mellitus without complications; I11.0 Hypertensive heart disease with heart failure; I50.9 Heart failure, unspecified; I25.10 Atherosclerotic heart disease of native coronary artery without angina pectoris; E78.5 Hyperlipidemia, unspecified; F41.9 Anxiety disorder, unspecified; F32.A Depression, unspecified; M10.9 Gout, unspecified; Z79.84 Long term (current) use of oral hypoglycemic drugs; Z79.02 Long term (current) use of antithrombotics/antiplatelets; Z79.01 Long term (current) use of anticoagulants; Z79.899 Other long term (current) drug therapy; Z87.891 Personal history of nicotine dependence; Z86.16 Personal history of COVID-19
CPT/HCPCS: 99285; 96374; 36415; 93005; 83880; 80053; 83735; 84484; 85025; 85610; 85730; 71046; J2270

== ENCOUNTER 2022-10-17 18:05 | Inpatient (IN) | payer OTHER ==
[2022-10-17 19:18] LABS: Anisocytosis Slight; Basophils % (A) 0 %; Eosinophils # (A) 0.1 k/uL (0-0.7); Eosinophils % (A) 1 %; HCT 34.2 % (39.0-53.0); HGB 11.2 gm/dL (13.0-17.5); Lymphocytes # (A) 0.7 k/uL (1.0-4.8); Lymphocytes % (A) 5 %; MCH 36.4 pg (25.0-35.0); MCHC 32.6 g/dL (31.0-37.0); MCV 111.7 fL (80.0-100.0); Macrocytosis Marked; Mean Platelet Volume 7.6; Monocytes # (A) 0.7 k/uL (0-1.0); Monocytes % (A) 5 %; Neutrophils # (A) 11.3 k/uL (1.3-7.7); Neutrophils % (A) 88 %; Platelet Count 244 k/uL (150-450); Poikilocytosis Slight; RBC 3.07 m/uL (4.30-5.90); RDW 16.9 % (11.5-15.5); WBC 12.9 k/uL (3.8-10.6)
[2022-10-17 19:32] LABS: ALT 29 U/L (4-49); AST 40 U/L (17-59); African American GFR (CKD) 40 (>60 ml/min/1.73 sqM); Albumin 3.3 g/dL (3.5-5.0); Alkaline Phosphatase 64 U/L (38-126); Anion Gap 13 mmol/L; Blood Urea Nitrogen 57 mg/dL (9-20); Calcium 8.5 mg/dL (8.4-10.2); Carbon Dioxide 18 mmol/L (22-30); Chloride 104 mmol/L (98-107); Glucose 109 mg/dL (74-99); Magnesium 1.8 mg/dL (1.6-2.3); Non-African American GFR(CKD) 34 (>60 ml/min/1.73 sqM); Potassium 5.5 mmol/L (3.5-5.1); Sodium 135 mmol/L (137-145); Total Bilirubin 0.5 mg/dL (0.2-1.3); Total Protein 8.4 g/dL (6.3-8.2)
[2022-10-17 19:39] LABS: NT-Pro-B-Type Natriuretic Pept 1650 pg/mL
[2022-10-17 19:42] LABS: INR 1.1 (<1.2); Partial Thromboplastin Time 26.2 sec (22.0-30.0); Prothrombin Time 11.1 sec (9.0-12.0)
--- NOTE | 2022-10-17 19:51 | ED ---
Fall HPI - General Chief Complaint: Fall Stated Complaint: fall Time Seen by Provider: 10/17/22 18:36 Source: patient, EMS Mode of arrival: EMS - History of Present Illness Initial Comments: 72-year-old male history of atrial fibrillation, CAD with a stent diabetes hypertension and gout who resides a local assisted living facility who states he had dizzy when he went to sit down for lunch and fell without injury though he did later complain some pain in his back no headache blurry vision palpitations nausea vomiting. No incontinence reported. He was brought in by EMS. He was found have A. fib and was tachycardic. He has no other complaints he voices at this time MD Complaint: fall, other - Related Data Home Medications Medication Instructions Recorded Confirmed Ferrous Sulfate [Iron] 325 mg PO DAILY@79910/21/20 10/17/22 Sertraline HCl [Zoloft] 50 mg PO HS@199910/21/20 10/17/22 Tamsulosin HCl [Flomax] 0.4 mg PO HS@199910/21/20 10/17/22 allopurinoL [Zyloprim] 100 mg PO DAILY@79910/21/20 10/17/22 risperiDONE [RisperDAL] 0.5 mg PO HS@199910/21/20 10/17/22 Apixaban [Eliquis] 5 mg PO BID@799,199905/09/21 10/17/22 Cyanocobalamin [Vitamin B-12] 500 mcg PO DAILY@79905/09/21 10/17/22 Metoprolol Succinate (ER) [Toprol 100 mg PO BID@799,199905/09/21 10/17/22 XL] Thiamine HCl [Vitamin B-1] 100 mg PO DAILY@79905/09/21 10/17/22 Amiodarone [Cordarone] 200 mg PO DAILY@79902/06/22 10/17/22 Loratadine [Claritin] 10 mg PO DAILY@79902/06/22 10/17/22 Multivit-Min/FA/Lycopen/Lutein 1 tab PO DAILY@79902/06/22 10/17/22 [Centrum Silver Men Tablet] glipiZIDE [Glucotrol] 5 mg PO BID@799,199902/06/22 10/17/22 Acetaminophen Tab [Tylenol] 1,000 mg PO TID@0800,1600,199910/01/22 10/17/22 Sacubitril/Valsartan [Entresto 24 1 tab PO BID@08,199910/01/22 10/17/22 mg-26 mg Tablet] Spironolactone [Aldactone] 50 mg PO DAILY@79910/01/22 10/17/22 Atorvastatin [Lipitor] 40 mg PO HS@199910/16/22 10/17/22 Clopidogrel [Plavix] 75 mg PO DAILY@79910/16/22 10/17/22 Furosemide [Lasix] 40 mg PO BID@0800,1400 10/16/22 10/17/22 oxyBUTYnin chloride [Ditropan] 5 mg PO DAILY@79910/16/22 10/17/22 Ergocalciferol (Vitamin D2) 1,250 mcg PO QMONTHLY 10/17/22 10/17/22 [Drisdol (50,000 Iu)] Lidocaine 5% Patch [Lidoderm] 1 patch TOPICAL DAILY 10/17/22 10/17/22 Allergies Allergy/AdvReac Type Severity Reaction Status Date / Time No Known Allergies Allergy Verified 10/17/22 18:53 Review of Systems ROS Statement: Those systems with pertinent positive or pertinent negative responses have been documented in the HPI. ROS Other: All systems not noted in ROS Statement are negative. Past Medical History Past Medical History: Atrial Fibrillation, Coronary Artery Disease (CAD), Heart Failure, Diabetes Mellitus, Hyperlipidemia, Hypertension Additional Past Medical History / Comment(s): See Dr Piedra's H&P. "Feet cold sometimes". Gout. Hx UTI and kidney infection with Covid. History of Any Multi-Drug Resistant Organisms: None Reported Past Surgical History: Heart Catheterization With Stent, Orthopedic Surgery, Pacemaker Additional Past Surgical History / Comment(s): 2 STENTS DEC 2020, left hip surg [place] X2. Past Anesthesia/Blood Transfusion Reactions: No Reported Reaction, Postoperative Nausea & Vomiting (PONV) Additional Past Anesthesia/Blood Transfusion Reaction / Comment(s): UNKNOWN FAMILY HX. Date of Last Stent Placement:: DEC 2020 Type of Cardiac Device: Unknown Device Placement Date:: Unknown Past Psychological History: Anxiety, Depression Smoking Status: Former smoker Past Alcohol Use History: None Reported Past Drug Use History: None Reported - Past Family History Mother Family Medical History: Cancer Brother(s) Family Medical History: Cancer Additional Family Medical History / Comment(s): Lung cancer. Father History Unknown: Yes Family Medical History: Hyperlipidemia General Exam - General Exam Comments Initial Comments: This is a well-developed well-nourished awake alert oriented 4 male Limitations: physical limitation General appearance: alert, anxious Head exam: Present: atraumatic, normocephalic, normal inspection Eye exam: Present: normal appearance, PERRL, EOMI. Absent: scleral icterus, conjunctival injection, periorbital swelling ENT exam: Present: normal exam, mucous membranes moist Neck exam: Present: normal inspection, full ROM, other. Absent: tenderness, meningismus, lymphadenopathy Respiratory exam: Present: decreased breath sounds (no stridor JVD or bruits). Absent: respiratory distress, wheezes, rales, rhonchi, stridor Cardiovascular Exam: Present: tachycardia. Absent: systolic murmur, diastolic murmur, rubs, gallop, clicks GI/Abdominal exam: Present: soft, normal bowel sounds. Absent: distended, tenderness, guarding, rebound, rigid Extremities exam: Present: full ROM, normal capillary refill, pedal edema. Absent: tenderness, joint swelling, calf tenderness Back exam: Present: normal inspection Neurological exam: Present: alert, oriented X3, CN II-XII intact Psychiatric exam: Present: normal affect, normal mood Skin exam: Present: warm, dry, intact, normal color. Absent: rash Course Vital Signs 10/17/22 18:13 Temperature 97.3 F L Pulse Rate 112 H Respiratory 20 Rate Blood Pressure 131/88 O2 Sat by Pulse 98 Oximetry Medical Decision Making - Medical Decision Making I did discuss findings with the patient also with Dr. Cummins patient does demonstrate evidence of UTI possible no thoracic fracture and rapid atrial fibrillation.Was pt. sent in by a medical professional or institution (, PA, WEIGH AND CHARGE WORKER, urgent care, hospital, or long-term...) When possible be specific @ -No Did you speak to anyone other than the patient for history (EMS, parent, family, police, friend...)? What history was obtained from this source @ -Her medics on arrival Did you review nursing and triage notes (agree or disagree)? Why? @ -I reviewed and agree with nursing and triage notes Were old charts reviewed (outside hosp., previous admission, EMS record, old EKG, old radiological studies, urgent care reports/EKG's, long-term records)? Report findings @ -Recent old charts were reviewed Differential Diagnosis (chest pain, altered mental status, abdominal pain women, abdominal pain men, vaginal bleeding, weakness, fever, dyspnea, syncope, headache, dizziness, GI bleed, back pain, seizure, CVA, palpatations, mental health, musculoskeletal)? @ -Urinary tract infection, thoracic pain, syncope, atrial fibrillation EKG interpreted by me (3pts min.). @ -As above atrial for ablation rate 114 QRS duration 155 QT and QTC 387/454 by bundle-branch block and left posterior fascicular block X-rays interpreted by me (1pt min.). @ -Evidence on x-ray of a new fracture in the thoracic spine CT interpreted by me (1pt min.). @ -Pending U/S interpreted by me (1pt. min.). @ -None done What testing was considered but not performed or refused? (CT, X-rays, U/S, labs)? Why? @ -None What meds were considered but not given or refused? Why? @ -None Did you discuss the management of the patient with other professionals (professionals i.e. , PA, WEIGH AND CHARGE WORKER, lab, RT, psych nurse, social services specialist, bench shear operator, teacher, worldwide chief creative officer, case management associate)? Give summary @ -Dr. Cummins Was smoking cessation discussed for >3mins.? @ -No Was critical care preformed (if so, how long)? @ -39 minutes Were there social determinants of health that impacted care today? How? (Homelessness, low income, unemployed, alcoholism, drug addiction, transportation, low edu. Level, literacy, decrease access to med. care, senior care, rehab)? @ -No Was there de-escalation of care discussed even if they declined (Discuss DNR or withdrawal of care, Hospice)? DNR status @ -No What co-morbidities impacted this encounter? (DM, HTN, Smoking, COPD, CAD, Cancer, CVA, ARF, Chemo, Hep., AIDS, mental health diagnosis, sleep apnea, morbid obesity)? @ -Atrial fibrillation Was patient admitted / discharged? Hospital course, mention meds given and route, prescriptions, significant lab abnormalities, going to OR and other pertinent info. @ -hospital course was admitted for inpatient evaluation and treatment Undiagnosed new problem with uncertain prognosis? @ -And a face infection Drug Therapy requiring intensive monitoring for toxicity (Heparin, Nitro, Insulin, Cardizem)? @ -No Were any procedures done? @ -[No] Diagnosis/symptom? @ -[default] urinary tract infection, rapid atrial fibrillation, syncope Acute, or Chronic, or Acute on Chronic? @ -[Acute] Uncomplicated (without systemic symptoms) or Complicated (systemic symptoms)? @ -[] Side effects of treatment? @ -[No] Exacerbation, Progression, or Severe Exacerbation? @ -[No] Poses a threat to life or bodily function? How? (Chest pain, [place], [place], pneumonia, PE, COPD, DKA, ARF, appy, cholecystitis, CVA, Diverticulitis, Homicidal, Suicidal, threat to staff... and all critical care pts) @ -[Atrial fibrillation] - Lab Data Result diagrams: 10/17/22 19:05 10/17/22 19:05 Lab Results 10/17/22 10/17/22 10/17/22 Range/Units 19:05 19:05 19:05 WBC 12.9 H (3.8-10.6) k/uL RBC 3.07 L (4.30-5.90) m/uL Hgb 11.2 L (13.0-17.5) gm/dL Hct 34.2 L (39.0-53.0) % MCV 111.7 H (80.0-100.0) fL MCH 36.4 H (25.0-35.0) pg MCHC 32.6 (31.0-37.0) g/dL RDW 16.9 H (11.5-15.5) % Plt Count 244 (150-450) k/uL MPV 7.6 Neutrophils % 88 % Lymphocytes % 5 % Monocytes % 5 % Eosinophils % 1 % Basophils % 0 % Neutrophils # 11.3 H (1.3-7.7) k/uL Lymphocytes # 0.7 L (1.0-4.8) k/uL Monocytes # 0.7 (0-1.0) k/uL Eosinophils # 0.1 (0-0.7) k/uL Basophils # 0.0 (0-0.2) k/uL Manual Slide Review Performed Polychromasia Present Poikilocytosis Slight Anisocytosis Slight Anisocytosis (manual) Present Macrocytosis Marked A PT 11.1 (9.0-12.0) sec INR 1.1 (<1.2) APTT 26.2 (22.0-30.0) sec Sodium 135 L (137-145) mmol/L Potassium 5.5 H (3.5-5.1) mmol/L Chloride 104 (98-107) mmol/L Carbon Dioxide 18 L (22-30) mmol/L Anion Gap 13 mmol/L BUN 57 H (9-20) mg/dL Creatinine 1.90 H (0.66-1.25) mg/dL Est GFR (CKD-EPI)AfAm 40 (>60 ml/min/1.73 sqM) Est GFR (CKD-EPI)NonAf 34 (>60 ml/min/1.73 sqM) Glucose 109 H (74-99) mg/dL Plasma Lactic Acid Ilya (0.7-2.0) mmol/L Calcium 8.5 (8.4-10.2) mg/dL Magnesium 1.8 (1.6-2.3) mg/dL Total Bilirubin 0.5 (0.2-1.3) mg/dL AST 40 (17-59) U/L ALT 29 (4-49) U/L Alkaline Phosphatase 64 (38-126) U/L Troponin I (0.000-0.034) ng/mL NT-Pro-B Natriuret Pep 1650 pg/mL Total Protein 8.4 H (6.3-8.2) g/dL Albumin 3.3 L (3.5-5.0) g/dL Urine Color Urine Appearance (Clear) Urine pH (5.0-8.0) Ur Specific [place] (1.001-1.035) Urine Protein (Negative) Urine Glucose (UA) (Negative) Urine Ketones (Negative) Urine Blood (Negative) Urine Nitrite (Negative) Urine Bilirubin (Negative) Urine Urobilinogen (<2.0) mg/dL Ur Leukocyte Esterase (Negative) Urine RBC (0-5) /hpf Urine WBC (0-5) /hpf Ur Squamous Epith Cells (0-4) /hpf Urine Bacteria (None) /hpf Hyaline Casts (0-2) /lpf Urine Mucus (None) /hpf 10/17/22 10/17/22 10/17/22 Range/Units 19:05 19:05 20:23 WBC (3.8-10.6) k/uL RBC (4.30-5.90) m/uL Hgb (13.0-17.5) gm/dL Hct (39.0-53.0) % MCV (80.0-100.0) fL MCH (25.0-35.0) pg MCHC (31.0-37.0) g/dL RDW (11.5-15.5) % Plt Count (150-450) k/uL MPV Neutrophils % % Lymphocytes % % Monocytes % % Eosinophils % % Basophils % % Neutrophils # (1.3-7.7) k/uL Lymphocytes # (1.0-4.8) k/uL Monocytes # (0-1.0) k/uL Eosinophils # (0-0.7) k/uL Basophils # (0-0.2) k/uL Manual Slide Review Polychromasia Poikilocytosis Anisocytosis Anisocytosis (manual) Macrocytosis PT (9.0-12.0) sec INR (<1.2) APTT (22.0-30.0) sec Sodium (137-145) mmol/L Potassium (3.5-5.1) mmol/L Chloride (98-107) mmol/L Carbon Dioxide (22-30) mmol/L Anion Gap mmol/L BUN (9-20) mg/dL Creatinine (0.66-1.25) mg/dL Est GFR (CKD-EPI)AfAm (>60 ml/min/1.73 sqM) Est GFR (CKD-EPI)NonAf (>60 ml/min/1.73 sqM) Glucose (74-99) mg/dL Plasma Lactic Acid Ilya 1.6 (0.7-2.0) mmol/L Calcium (8.4-10.2) mg/dL Magnesium (1.6-2.3) mg/dL Total Bilirubin (0.2-1.3) mg/dL AST (17-59) U/L ALT (4-49) U/L Alkaline Phosphatase (38-126) U/L Troponin I <0.012 (0.000-0.034) ng/mL NT-Pro-B Natriuret Pep pg/mL Total Protein (6.3-8.2) g/dL Albumin (3.5-5.0) g/dL Urine Color Yellow Urine Appearance Cloudy (Clear) Urine pH 5.0 (5.0-8.0) Ur Specific [place] 1.015 (1.001-1.035) Urine Protein Trace H (Negative) Urine Glucose (UA) Negative (Negative) Urine Ketones Negative (Negative) Urine Blood Negative (Negative) Urine Nitrite Positive (Negative) Urine Bilirubin Negative (Negative) Urine Urobilinogen <2.0 (<2.0) mg/dL Ur Leukocyte Esterase Large H (Negative) Urine RBC 4 (0-5) /hpf Urine WBC 157 H (0-5) /hpf Ur Squamous Epith Cells <1 (0-4) /hpf Urine Bacteria Many H (None) /hpf Hyaline Casts 13 H (0-2) /lpf Urine Mucus Rare H (None) /hpf - EKG Data -: EKG Interpreted by Me EKG Comments: Atrial fibrillation rate of 114 QRS duration 155 daily since QTC 370/454 red bundle-branch block pattern and left posterior fascicular block - Radiology Data Interpreted by me: Imaging technical internship by me evidence of a mid thoracic irregularity not seen on a previous x-ray in September of this year. Report also reviewed. The scan results and computed tomography scan pending at this time Critical Care Time Critical Care Time: Yes Total Critical Care Time: 39 Disposition Clinical Impression: Syncope, Rapid atrial fibrillation, Urinary tract infection, Intractable back pain Disposition: ADMITTED IP TO THIS [facility] Condition: Fair Referrals: Brad Lopez MD [Primary Care Provider] - 1-2 days Decision Date: 10/17/22 Decision Time: 21:00
--- NOTE | 2022-10-17 20:02 | XR ---
EXAMINATION TYPE: XR chest 2V DATE OF EXAM: 10/17/2022 COMPARISON: 10/16/2022, 10/01/2022 HISTORY: 72-year-old male shortness of breath, fall, difficulty breathing TECHNIQUE: AP and lateral views FINDINGS: Left anterior chest wall AICD generator with right atrial and right ventricular leads. Heart is mildl y enlarged. Mild hyperinflation. Interstitial and vascular prominence. No bernadette consolidation or pleu ral effusion seen. There is a vertebral compression collapse of midthoracic vertebral body that appea rs to have developed from 10/01/2022. IMPRESSION: 1. A severe midthoracic vertebral compression deformity not clearly seen on the 10/01/2022 exam. Corre late for focal pain here. 2. Mild cardiomegaly and COPD. No definite acute cardiopulmonary process.
[2022-10-17] MEDS ORDERED: HYDROmorphone 1 MG/ML 1 ML SYRINGE IVP STA (20:22)
[2022-10-17 20:40] LABS: Appearance,Urine Cloudy (Clear); Bacteria,Urine Many /hpf; Bilirubin,Urine Negative (Negative); Blood,Urine Negative (Negative); Color,Urine Yellow; Glucose,Urine (UA) Negative (Negative); Hyaline Casts,Urine 13 /lpf (0-2); Ketones,Urine Negative (Negative); Leukocyte Esterase,Urine Large (Negative); Mucus,Urine Rare /hpf; Nitrite,Urine Positive (Negative); Protein,Urine Trace (Negative); RBC,Urine 4 /hpf (0-5); Specific Gravity,Urine 1.015 (1.001-1.035); Squamous Epithelial Cell,Urine <1 /hpf (0-4); Urobilinogen,Urine <2.0 mg/dL (<2.0); WBC,Urine 157 /hpf (0-5)
[2022-10-17 20:41] LABS: Anisocytosis (M) Present; Polychromasia Present
[2022-10-17] MEDS ORDERED: cefTRIAXone IN SWFI 1,000 MG/10 ML SYRINGE IVP STA (21:11)
[2022-10-17] MEDS ORDERED: ONDANSETRON 4 MG/2 ML VIAL IVP PRN (21:18)
[2022-10-17] MEDS ORDERED: NALOXONE 0.4 MG/ML 1 ML VIAL IV PRN (21:18)
--- NOTE | 2022-10-17 21:25 | CT ---
EXAMINATION TYPE: CT thor lumbar spine wo con DATE OF EXAM: 10/17/2022 COMPARISON: Chest 10/17/[address] 10/01/2022 HISTORY: 72-year-old male Midthoracic pain after fall TECHNIQUE: Contiguous axial scanning of the thoracic and lumbar spine without IV contrast. Coronal an d sagittal reconstructions performed. CT DLP: 1769.1 mGycm Automated exposure control for dose reduction was used. FINDINGS: Thoracic spine: Diffuse osteopenia. There is a severe compression deformity T7 with mild retropulsion into the ventra l spinal canal contributing to moderate focal spinal canal stenosis. This results in moderate to archie re right neuroforaminal stenosis T7-T8. Associated paravertebral hematoma. Alignment is maintained. Mild chronic superior endplate deformity of T10. Small hiatal hernia. Scattered renal cysts. Degenerative bony ankylosis at the SI joints. Addition the lower thoracic spine. Lumbar spine: Chronic appearing vertebral compression collapse of L2. Retropulsion contiguous to moderate focal spi nal canal stenosis. This is unchanged from 10/01/2022. Either subacute or chronic. Hypertrophic facet arthropathy mid to lower lumbar spine. Moderate multilevel degenerative disc disea se. IMPRESSION: THORACIC SPINE: 1. SEVERE ACUTE COMPRESSION DEFORMITY OF T7. RETROPULSION CONTRIBUTES TO MODERATE FOCAL SPINAL CANAL STENOSIS. ASSOCIATED MILD PARAVERTEBRAL HEMATOMA. 2. THIS ALSO RESULTS IN MODERATE TO SEVERE RIGHT NEUROFORAMINAL STENOSIS AT T7-T8. 3. DISH IN THE LOWER THORACIC SPINE. LUMBAR SPINE: 4. VERTEBRAL COMPRESSION COLLAPSE OF L2 IS EITHER SUBACUTE OR CHRONIC. THIS WAS PRESENT ON 10/01/2022. RETROPULSION CONTRIBUTES TO MODERATE SPINAL CANAL STENOSIS HERE.
[2022-10-17] MEDS: DILTIAZEM 125 MG in SODIUM CHLORIDE 0.9% 100 ML IV SCH (21:59)
[2022-10-17] MEDS: SODIUM CHLORIDE 0.9% 1,000 ML IV SCH (22:00)
--- NOTE | 2022-10-17 23:54 | P.HPIM ---
History of Present Illness H&P Date: 10/17/22 Patient is a 72-year-old male with an extensive damage including systolic CHF, A. fib on Eliquis, CAD status post stents, COPD, type II DM, hypertension, who presents to the emergency room with complaints of back pain. The patient reports that he has had persistent back pain over the past several months, rated a 8 out of 10, constant, worsened with movement, radiating to the front of the chest. He also reported feeling lightheaded earlier today, causing him to fall without experiencing head trauma. He also denies binging chest discomfort or shortness of breath. Reports compliance with his Lasix at home. Denied urinary complaints. Denied fever or chills. Patient also denying LE weakness. In the emergency room, laboratory evaluation was remarkable for UA consistent with UTI, leukocytosis 12.9, and creatinine 1.90 (up from 1.58 on 10/03). Thoracic and lumbar spine CT in the emergency room revealed severe acute compression deformity of T7 with spinal canal stenosis and a mild paravertebral hematoma with neural foraminal stenosis. There was also vertebral compression collapse of the L2 subacute versus chronic. Of note, the patient was recently admitted to the hospital 2 weeks ago for similar complaints of back pain at which time he was noted to be in acute CHF exacerbation. The patient's home Lasix was increased from 40 mg daily to twice a day. EKG had revealed A. fib at 114 bpm. Chest x-ray revealed a compression fracture with mild cardiomegaly and COPD. ED documentation reviewed and case discussed with ED provider. Review of systems: Pertinent positives and negatives as discussed in HPI, a complete review of systems was performed and all other systems are negative. Physical examination: Vital signs reviewed General: non toxic, no distress, appears at stated age, normal weight Derm: no unusual rashes/lesions, warm Head: atraumatic, normocephalic, symmetric Eyes: EOMI, no lid lag, anicteric sclera, pupils equal round reactive to light ENT: Nose and ears atraumatic Neck: No cervical lymphadenopathy, trachea midline, supple Mouth: no lip lesion, mucus membranes moist Cardiovascular: S1S2 reg, no murmur, positive dorsalis pedis pulse bilateral, no edema Lungs: CTA bilateral, no rhonchi, no rales, no accessory muscle use Abdominal: soft, nontender to palpation, no guarding Ext: muscle strength 5 out of 5 in all 4 extremities grossly, no gross muscle atrophy, no contractures, midthoracic spinal tenderness noted Neuro: CN II-XI grossly intact, no gross focal neuro deficits Psych: Alert, oriented, appropriate affect Assessment: Acute thoracic vertebral fracture UTI A. fib with RVR Dizziness, suspect due to dehydration from overdiuresis Acute kidney injury, suspect secondary to overdiuresis Hyperkalemia Chronic conditions: CAD, COPD, type II DM, hypertension Imaging: Thoracic and lumbar spine CT in the emergency room revealed severe acute compression deformity of T7 with spinal canal stenosis and a mild paravertebral hematoma with neural foraminal stenosis. There was also vertebral compression collapse of the L2 subacute versus chronic. Data Review: Laboratory evaluation was remarkable for UA consistent with UTI, leukocytosis 12.9, and creatinine 1.90 (up from 1.58 on 10/03) Plan: TLSO brace ordered with strict bed-rest Check orthostatic vital signs Orthopedic surgery consult Start ceftriaxone Continue with Cardizem infusion at this time Nephrology consult Hold off on Eliquis at this time in setting of hematoma DVT prophylaxis: IPCDs The patient is admitted with an anticipated greater than 2 midnight stay for evaluation of fracture CODE STATUS: Full Code Discussed with: Patient 4Anticipated discharge place: Home Past Medical History Past Medical History: Atrial Fibrillation, Coronary Artery Disease (CAD), Heart Failure, Diabetes Mellitus, Hyperlipidemia, Hypertension Additional Past Medical History / Comment(s): See Dr Piedra's H&P. "Feet cold sometimes". Gout. Hx UTI and kidney infection with Covid. History of Any Multi-Drug Resistant Organisms: None Reported Past Surgical History: Heart Catheterization With Stent, Orthopedic Surgery, Pacemaker Additional Past Surgical History / Comment(s): 2 STENTS DEC 2020, left hip surgery X2. Past Anesthesia/Blood Transfusion Reactions: No Reported Reaction, Postoperative Nausea & Vomiting (PONV) Additional Past Anesthesia/Blood Transfusion Reaction / Comment(s): UNKNOWN FAMILY HX. Date of Last Stent Placement:: DEC 2020 Type of Cardiac Device: Unknown Device Placement Date:: Unknown Past Psychological History: Anxiety, Depression Smoking Status: Former smoker Past Alcohol Use History: None Reported Past Drug Use History: None Reported - Past Family History Mother Family Medical History: Cancer Brother(s) Family Medical History: Cancer Additional Family Medical History / Comment(s): Lung cancer. Father History Unknown: Yes Family Medical History: Hyperlipidemia Medications and Allergies Home Medications Medication Instructions Recorded Confirmed Type Ferrous Sulfate [Iron] 325 mg PO DAILY@79910/21/20 10/17/22 History Sertraline HCl [Zoloft] 50 mg PO HS@199910/21/20 10/17/22 History Tamsulosin HCl [Flomax] 0.4 mg PO HS@199910/21/20 10/17/22 History allopurinoL [Zyloprim] 100 mg PO DAILY@79910/21/20 10/17/22 History risperiDONE [RisperDAL] 0.5 mg PO HS@199910/21/20 10/17/22 History Apixaban [Eliquis] 5 mg PO BID@799,199905/09/21 10/17/22 History Cyanocobalamin [Vitamin B-12] 500 mcg PO DAILY@79905/09/21 10/17/22 History Metoprolol Succinate (ER) [Toprol 100 mg PO BID@799,199905/09/21 10/17/22 History XL] Thiamine HCl [Vitamin B-1] 100 mg PO DAILY@79905/09/21 10/17/22 History Amiodarone [Cordarone] 200 mg PO DAILY@79902/06/22 10/17/22 History Loratadine [Claritin] 10 mg PO DAILY@79902/06/22 10/17/22 History Multivit-Min/FA/Lycopen/Lutein 1 tab PO DAILY@79902/06/22 10/17/22 History [Centrum Silver Men Tablet] glipiZIDE [Glucotrol] 5 mg PO BID@08,199902/06/22 10/17/22 History Acetaminophen Tab [Tylenol] 1,000 mg PO TID@0800,1599,199910/01/22 10/17/22 History Sacubitril/Valsartan [Entresto 24 1 tab PO BID@799,199910/01/22 10/17/22 History mg-26 mg Tablet] Spironolactone [Aldactone] 50 mg PO DAILY@79910/01/22 10/17/22 History Atorvastatin [Lipitor] 40 mg PO HS@199910/16/22 10/17/22 History Clopidogrel [Plavix] 75 mg PO DAILY@0800 10/16/22 10/17/22 History Furosemide [Lasix] 40 mg PO BID@0800,1400 10/16/22 10/17/22 History oxyBUTYnin chloride [Ditropan] 5 mg PO DAILY@0800 10/16/22 10/17/22 History Ergocalciferol (Vitamin D2) 1,250 mcg PO QMONTHLY 10/17/22 10/17/22 History [Drisdol (50,000 Iu)] Lidocaine 5% Patch [Lidoderm] 1 patch TOPICAL DAILY 10/17/22 10/17/22 History Allergies Allergy/AdvReac Type Severity Reaction Status Date / Time No Known Allergies Allergy Verified 10/17/22 18:53 Physical Exam Vitals: Vital Signs Temp Pulse Pulse Resp BP BP Pulse Ox 10/17/22 22:36 97.6 F 109 H 16 129/90 97 10/17/22 22:05 93 20 111/81 96 10/17/22 18:13 97.3 F L 112 H 20 131/88 98 Intake and Output 10/17/22 10/17/22 10/18/22 14:59 22:59 06:59 Other: Weight 107.501 kg Results CBC & Chem 7: 10/17/22 19:05 10/17/22 19:05 Labs: Abnormal Lab Results - Last 24 Hours (Table) 10/17/22 10/17/22 10/17/22 Range/Units 19:05 19:05 20:23 WBC 12.9 H (3.8-10.6) k/uL RBC 3.07 L (4.30-5.90) m/uL Hgb 11.2 L (13.0-17.5) gm/dL Hct 34.2 L (39.0-53.0) % MCV 111.7 H (80.0-100.0) fL MCH 36.4 H (25.0-35.0) pg RDW 16.9 H (11.5-15.5) % Neutrophils # 11.3 H (1.3-7.7) k/uL Lymphocytes # 0.7 L (1.0-4.8) k/uL Macrocytosis Marked A Sodium 135 L (137-145) mmol/L Potassium 5.5 H (3.5-5.1) mmol/L Carbon Dioxide 18 L (22-30) mmol/L BUN 57 H (9-20) mg/dL Creatinine 1.90 H (0.66-1.25) mg/dL Glucose 109 H (74-99) mg/dL Total Protein 8.4 H (6.3-8.2) g/dL Albumin 3.3 L (3.5-5.0) g/dL Urine Protein Trace H (Negative) Ur Leukocyte Esterase Large H (Negative) Urine WBC 157 H (0-5) /hpf Urine Bacteria Many H (None) /hpf Hyaline Casts 13 H (0-2) /lpf Urine Mucus Rare H (None) /hpf
[2022-10-18] MEDS: HYDROmorphone 2 MG TAB PO PRN ×7 (00:01→23:40)
[2022-10-18 06:12] LABS: Glucose,Whole Blood 155 mg/dL (70-110)
[2022-10-18] MEDS ORDERED: ACETAMINOPHEN TAB 500 MG TAB PO SCH (08:00)
[2022-10-18] MEDS: allopurinoL 100 MG TAB PO SCH (08:45)
[2022-10-18] MEDS: AMIODARONE 200 MG TAB PO SCH (08:45)
[2022-10-18] MEDS: MULTIVITAMINS, THERA 1 EACH TAB PO SCH (08:45)
[2022-10-18] MEDS: FUROSEMIDE 40 MG TAB PO SCH ×2 (08:46→15:12)
[2022-10-18] MEDS: CYANOCOBALAMIN 500 MCG TAB PO SCH (08:46)
[2022-10-18] MEDS: LORATADINE 10 MG TAB PO SCH (08:46)
[2022-10-18] MEDS: SACUBITRIL/VALSARTAN 24 MG-26 MG TABLET PO SCH ×2 (08:46→22:12)
[2022-10-18] MEDS: THIAMINE 100 MG TAB PO SCH (08:46)
[2022-10-18] MEDS: FERROUS SULFATE 325 MG TAB PO SCH (08:46)
[2022-10-18] MEDS ORDERED: oxyBUTYnin chloride 5 MG TAB PO SCH (09:00)
[2022-10-18] MEDS ORDERED: SPIRONOLACTONE 25 MG TAB PO SCH (09:00)
[2022-10-18] MEDS ORDERED: METOPROLOL SUCCINATE (ER) 100 MG TAB.ER.24H PO SCH (09:00)
[2022-10-18] MEDS ORDERED: APIXABAN 5 MG TAB PO SCH (09:00)
[2022-10-18] MEDS ORDERED: glipiZIDE 5 MG TAB PO SCH (09:00)
[2022-10-18] MEDS ORDERED: CLOPIDOGREL 75 MG TAB PO SCH (09:00)
[2022-10-18] MEDS ORDERED: METOPROLOL SUCCINATE (ER) 50 MG TAB.ER.24H PO STA (09:48)
--- NOTE | 2022-10-18 11:04 | P.NPCON ---
History of Present Illness - Reason for Consult acute renal failure - History of Present Illness Patient is a 72-year-old male with history of chronic A. fib, CHF with decreased ejection fraction of 35-40%, type 2 diabetes, hypertension, COPD, coronary artery disease. Patient is admitted to the hospital with complaints of severe back pain which has progressively gotten worse. Patient did report of fall as well. He is complaining of some lightheadedness and dizziness. No complaints of fever or chills. No significant urinary symptoms. Patient was noted to have urine retention during one of his admissions recently. Jacobs catheter was placed for urinary retention on 10/02/2022. This was discontinued subsequently. Blood pressure noted to be on the lower side with systolic around 10 1 mmHg. Patient was also noted to be in A. fib with RVR. Serum creatinine was 1.5 on 10/16/2022 and increased to 1.9 on 10/17/2022. During his last admission serum creatinine had peaked at 2.0 and was at 1.5 a round time of discharge on 10/03/2022. Patient is currently voiding. He did admit to taking Motrin for pain prior to admission. Also maintained on Entresto prior to admission. Review of Systems As per HPI Past Medical History Past Medical History: Atrial Fibrillation, Coronary Artery Disease (CAD), Heart Failure, Diabetes Mellitus, Hyperlipidemia, Hypertension Additional Past Medical History / Comment(s): See Dr Piedra's H&P. "Feet cold sometimes". Gout. Hx UTI and kidney infection with Covid. History of Any Multi-Drug Resistant Organisms: None Reported Past Surgical History: Heart Catheterization With Stent, Orthopedic Surgery, Pacemaker Additional Past Surgical History / Comment(s): 2 STENTS DEC 2020, left hip surgery X2. Past Anesthesia/Blood Transfusion Reactions: No Reported Reaction, Postoperative Nausea & Vomiting (PONV) Additional Past Anesthesia/Blood Transfusion Reaction / Comment(s): UNKNOWN FAMILY HX. Date of Last Stent Placement:: DEC 2020 Type of Cardiac Device: Unknown Device Placement Date:: Unknown Past Psychological History: Anxiety, Depression Smoking Status: Former smoker Past Alcohol Use History: None Reported Past Drug Use History: None Reported - Past Family History Mother Family Medical History: Cancer Brother(s) Family Medical History: Cancer Additional Family Medical History / Comment(s): Lung cancer. Father History Unknown: Yes Family Medical History: Hyperlipidemia Medications and Allergies Home Medications Medication Instructions Recorded Confirmed Type Ferrous Sulfate [Iron] 325 mg PO DAILY@79910/21/20 10/17/22 History Sertraline HCl [Zoloft] 50 mg PO HS@199910/21/20 10/17/22 History Tamsulosin HCl [Flomax] 0.4 mg PO HS@199910/21/20 10/17/22 History allopurinoL [Zyloprim] 100 mg PO DAILY@79910/21/20 10/17/22 History risperiDONE [RisperDAL] 0.5 mg PO HS@199910/21/20 10/17/22 History Apixaban [Eliquis] 5 mg PO BID@799,199905/09/21 10/17/22 History Cyanocobalamin [Vitamin B-12] 500 mcg PO DAILY@79905/09/21 10/17/22 History Metoprolol Succinate (ER) [Toprol 100 mg PO BID@799,199905/09/21 10/17/22 History XL] Thiamine HCl [Vitamin B-1] 100 mg PO DAILY@79905/09/21 10/17/22 History Amiodarone [Cordarone] 200 mg PO DAILY@79902/06/22 10/17/22 History Loratadine [Claritin] 10 mg PO DAILY@79902/06/22 10/17/22 History Multivit-Min/FA/Lycopen/Lutein 1 tab PO DAILY@79902/06/22 10/17/22 History [Centrum Silver Men Tablet] glipiZIDE [Glucotrol] 5 mg PO BID@08,199902/06/22 10/17/22 History Acetaminophen Tab [Tylenol] 1,000 mg PO TID@0800,1600,199910/01/22 10/17/22 Hi story Sacubitril/Valsartan [Entresto 24 1 tab PO BID@799,199910/01/22 10/17/22 History mg-26 mg Tablet] Spironolactone [Aldactone] 50 mg PO DAILY@79910/01/22 10/17/22 History Atorvastatin [Lipitor] 40 mg PO HS@199910/16/22 10/17/22 History Clopidogrel [Plavix] 75 mg PO DAILY@00 10/16/22 10/17/22 History Furosemide [Lasix] 40 mg PO BID@0800,1400 10/16/22 10/17/22 History oxyBUTYnin chloride [Ditropan] 5 mg PO DAILY@0800 10/16/22 10/17/22 History Ergocalciferol (Vitamin D2) 1,250 mcg PO QMONTHLY 10/17/22 10/17/22 History [Drisdol (50,000 Iu)] Lidocaine 5% Patch [Lidoderm] 1 patch TOPICAL DAILY 10/17/22 10/17/22 History Allergies Allergy/AdvReac Type Severity Reaction Status Date / Time No Known Allergies Allergy Verified 10/17/22 18:53 Physical Exam Vitals: Vital Signs Temp Pulse Pulse Resp BP BP Pulse Ox 10/18/22 08:45 98 F 103 H 18 112/74 97 10/18/22 04:00 97.4 F L 99 14 107/74 94 L 10/18/22 00:06 93 16 105/69 95 10/17/22 22:36 97.6 F 109 H 16 129/90 97 10/17/22 22:05 93 20 111/81 96 10/17/22 18:13 97.3 F L 112 H 20 131/88 98 Intake and Output 10/17/22 10/18/22 10/18/22 22:59 06:59 14:59 Output Total 600 100 Balance -600 -100 Output: Urine 600 100 Other: Voiding Method Urinal Urinal Weight 107.501 kg 109.5 kg Patient is awake, comfortable, no acute distress Examination of the heart S1 and S2 Examination of the lungs bilateral breath sounds are heard Abdomen is soft nontender Examination of lower extremities shows no significant edema [employer] exam grossly intact Results - Lab Results Most recent lab results Calcium 8.5 mg/dL (8.4-10.2) 10/17/22 19:05 Magnesium 1.8 mg/dL (1.6-2.3) 10/17/22 19:05 10/17/22 19:05 10/17/22 19:05 Assessment and Plan Assessment: 1. Acute kidney injury associated with hemodynamic instability and hemodynamic ATN. Currently nonoliguric. Rule out obstructive uropathy and urine retention. Patient did have a Jacobs catheter during his last admission on 10/02/2022. This was subsequently removed. Ultrasound on 10/02/2022 did not show any significant hydronephrosis. UA shows WBCs 157 trace protein. 2. A. fib with RVR maintained on Cardizem drip 3. Hyperkalemia associated with acute kidney injury and use of Aldactone, and possible urine retention. No active GI bleeding noted. 4. Mild non-gap metabolic acidosis associated with acute kidney injury 5. Acute thoracic vertebral fracture 6. CK D NKF stage IIIa with baseline creatinine around 1.3-1.5 mg/dL 7. Pyuria rule out UTI Plan: Check labs from today Hold Aldactone until labs are back from today Check bladder scan rule out urine retention Hold Lasix after today's dose May continue with entresto Repeat labs in a.m. Thank you for the consultation. We will continue to follow the patient with you during his hospitalization.
--- NOTE | 2022-10-18 11:31 | P.CRDCN ---
History of Present Illness Consult date: 10/18/22 Consult reason: atrial fibrillation History of present illness: This is Jose Shoemaker NP, I'm dictating on behalf of Dr. Piedra's H&P and A&P The patient was interviewed and examined. HPI: Patient is a pleasant 72-year-old male who presented to the hospital yesterday after a fall and dizziness. Patient states that he had been going to dinner, and as he attempted to get the chair, he reports that he got significantly dizzy, and fell. After presentation to the emergency department, it was determined the patient had sustained a compression fracture of his T7 vertebrae. Due to this the patient's anticoagulation was discontinued. Patient demonstrated a mild elevation in white blood cell count of 12.9, patient also demonstrated possible dehydration with a sodium of 135, potassium of 5.5, B1 57, creatinine 1.9. His EKG upon arrival to the emergency department demonstrated atrial fibrillation with rapid ventricular response, with a heart rate of 114. The patient is well-known to our service, and has a past cardiac history that i ncludes atrial fibrillation, coronary artery disease with stent placement, diabetes, hypertension, hyperlipidemia, and gout. ROS: [No fever, chills, or rigors] [no cough, phlegm, or expectoration] [no nausea, vomiting, or diarrhea] [no hematuria, dysuria] [no musculoskelatal complaints] [no strokes or seizures] [no skin lesions] EXAMINATION: GENERAL: Well-appearing, well-nourished and in no acute distress. NECK: Supple without JVD or thyromegaly. LUNGS: Breath sounds clear to auscultation bilaterally. Respiration equal and unlabored. No wheezes, rales or rhonchi. HEART: Irregular rate and rhythm without murmurs, rubs or gallops. S1 and S2 heard. EXTREMITIES: Normal range of motion, no edema. No clubbing or cyanosis. Peripheral pulses intact and strong. REVIEW OF LABS, ECG & MEDICAL DATA: LABS: White count 12.9, hemoglobin 11.2, platelets 244, sodium 135, potassium 5.5, B1 57, creatinine 1.9, magnesium 1.8, troponin less than 0.012, proBNP 1650 EKG: Atrial fibrillation with rapid ventricular response, heart rate 114 IMAGING: Chest x-ray dated 10/17/2022 demonstrates severe mid thoracic vertebral compression deformity not clearly seen on previous exam, mild cardiomegaly and COPD, no definitive acute cardiopulmonary process. 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 VITALS: Temp 98.0, pulse 103, respirations 18, blood pressure 112/74, O2 saturation 97% on room air IMPRESSION: 1. Atrial fibrillation with rapid ventricular response 2. Dehydration 3. Dizziness 4. T7 compression fracture PLAN: Agree with discontinuing anticoagulation at this time secondary to T7 compression fracture. Increase metoprolol succinate to 150 mg twice a day, give equalizing dose if previous amount was given. Discontinue diltiazem at noon. May need to discontinue Entresto if blood pressure does not tolerate, if necessary we will change the patient to low-dose ARB. Further recommendations based on patient's clinical course. Thank you for the consult and allowing us to participate in the care of this patient. Past Medical History Past Medical History: Atrial Fibrillation, Coronary Artery Disease (CAD), Heart Failure, Diabetes Mellitus, Hyperlipidemia, Hypertension Additional Past Medical History / Comment(s): See Dr Piedra's H&P. "Feet cold sometimes". Gout. Hx UTI and kidney infection with Covid. History of Any Multi-Drug Resistant Organisms: None Reported Past Surgical History: Heart Catheterization With Stent, Orthopedic Surgery, Pacemaker Additional Past Surgical History / Comment(s): 2 STENTS DEC 2020, left hip surgery X2. Past Anesthesia/Blood Transfusion Reactions: No Reported Reaction, Postoperative Nausea & Vomiting (PONV) Additional Past Anesthesia/Blood Transfusion Reaction / Comment(s): UNKNOWN FAMILY HX. Date of Last Stent Placement:: DEC 2020 Type of Cardiac Device: Unknown Device Placement Date:: Unknown Past Psychological History: Anxiety, Depression Smoking Status: Former smoker Past Alcohol Use History: None Reported Past Drug Use History: None Reported - Past Family History Mother Family Medical History: Cancer Brother(s) Family Medical History: Cancer Additional Family Medical History / Comment(s): Lung cancer. Father History Unknown: Yes Family Medical History: Hyperlipidemia Medications and Allergies Home Medications Medication Instructions Recorded Confirmed Type Ferrous Sulfate [Iron] 325 mg PO DAILY@79910/21/20 10/17/22 History Sertraline HCl [Zoloft] 50 mg PO HS@199910/21/20 10/17/22 History Tamsulosin HCl [Flomax] 0.4 mg PO HS@199910/21/20 10/17/22 History allopurinoL [Zyloprim] 100 mg PO DAILY@79910/21/20 10/17/22 History risperiDONE [RisperDAL] 0.5 mg PO HS@199910/21/20 10/17/22 History Apixaban [Eliquis] 5 mg PO BID@799,199905/09/21 10/17/22 History Cyanocobalamin [Vitamin B-12] 500 mcg PO DAILY@79905/09/21 10/17/22 History Metoprolol Succinate (ER) [Toprol 100 mg PO BID@799,199905/09/21 10/17/22 History XL] Thiamine HCl [Vitamin B-1] 100 mg PO DAILY@79905/09/21 10/17/22 History Amiodarone [Cordarone] 200 mg PO DAILY@79902/06/22 10/17/22 History Loratadine [Claritin] 10 mg PO DAILY@79902/06/22 10/17/22 History Multivit-Min/FA/Lycopen/Lutein 1 tab PO DAILY@79902/06/22 10/17/22 History [Centrum Silver Men Tablet] glipiZIDE [Glucotrol] 5 mg PO BID@08,199902/06/22 10/17/22 History Acetaminophen Tab [Tylenol] 1,000 mg PO TID@0800,1600,199910/01/22 10/17/22 History Sacubitril/Valsartan [Entresto 24 1 tab PO BID@08,199910/01/22 10/17/22 History mg-26 mg Tablet] Spironolactone [Aldactone] 50 mg PO DAILY@79910/01/22 10/17/22 History Atorvastatin [Lipitor] 40 mg PO HS@199910/16/22 10/17/22 History Clopidogrel [Plavix] 75 mg PO DAILY@0800 10/16/22 10/17/22 History Furosemide [Lasix] 40 mg PO BID@0800,1400 10/16/22 10/17/22 History oxyBUTYnin chloride [Ditropan] 5 mg PO DAILY@0800 10/16/22 10/17/22 History Ergocalciferol (Vitamin D2) 1,250 mcg PO QMONTHLY 10/17/22 10/17/22 History [Drisdol (50,000 Iu)] Lidocaine 5% Patch [Lidoderm] 1 patch TOPICAL DAILY 10/17/22 10/17/22 History Allergies Allergy/AdvReac Type Severity Reaction Status Date / Time No Known Allergies Allergy Verified 10/17/22 18:53 Physical Exam Vitals: Vital Signs Temp Pulse Pulse Resp BP BP Pulse Ox 10/18/22 08:45 98 F 103 H 18 112/74 97 10/18/22 04:00 97.4 F L 99 14 107/74 94 L 10/18/22 00:06 93 16 105/69 95 10/17/22 22:36 97.6 F 109 H 16 129/90 97 10/17/22 22:05 93 20 111/81 96 10/17/22 18:13 97.3 F L 112 H 20 131/88 98 Intake and Output 10/17/22 10/18/22 10/18/22 22:59 06:59 14:59 Output Total 600 100 Balance -600 -100 Output: Urine 600 100 Other: Voiding Method Urinal Urinal Weight 107.501 kg 109.5 kg Results 10/17/22 19:05 10/17/22 19:05 Cardiac Enzymes 10/17/22 10/17/22 Range/Units 19:05 19:05 AST 40 (17-59) U/L Troponin I <0.012 (0.000-0.034) ng/mL Coagulation 10/17/22 Range/Units 19:05 PT 11.1 (9.0-12.0) sec APTT 26.2 (22.0-30.0) sec CBC 10/17/22 Range/Units 19:05 WBC 12.9 H (3.8-10.6) k/uL RBC 3.07 L (4.30-5.90) m/uL Hgb 11.2 L (13.0-17.5) gm/dL Hct 34.2 L (39.0-53.0) % Plt Count 244 (150-450) k/uL Comprehensive Metabolic Panel 10/17/22 Range/Units 19:05 Sodium 135 L (137-145) mmol/L Potassium 5.5 H (3.5-5.1) mmol/L Chloride 104 (98-107) mmol/L Carbon Dioxide 18 L (22-30) mmol/L BUN 57 H (9-20) mg/dL Creatinine 1.90 H (0.66-1.25) mg/dL Glucose 109 H (74-99) mg/dL Calcium 8.5 (8.4-10.2) mg/dL AST 40 (17-59) U/L ALT 29 (4-49) U/L Alkaline Phosphatase 64 (38-126) U/L Total Protein 8.4 H (6.3-8.2) g/dL Albumin 3.3 L (3.5-5.0) g/dL Current Medications Generic Name Dose Route Start Last Admin Trade Name Freq PRN Reason Stop Dose Admin Acetaminophen 650 mg 10/17/22 21:18 Acetaminophen Tab 325 Mg Tab PO Q6HR PRN Mild Pain or Fever > 100.5 Allopurinol 100 mg 10/18/22 09:00 10/18/22 08:45 Allopurinol 100 Mg Tab PO 100 mg DAILY YESSY Administration Amiodarone HCl 200 mg 10/18/22 09:00 10/18/22 08:45 Amiodarone 200 Mg Tab PO 200 mg DAILY YESSY Administration Atorvastatin Calcium 40 mg 10/18/22 21:00 Atorvastatin 40 Mg Tab PO HS YESSY Cyanocobalamin 500 mcg 10/18/22 09:00 10/18/22 08:46 Cyanocobalamin 500 Mcg Tab PO 500 mcg DAILY YESSY Administration Ergocalciferol 1,250 mcg 11/01/22 09:00 Ergocalciferol 1,250 Mcg (50,000 Iu) Capsule PO QMONTHLY YESSY Ferrous Sulfate 325 mg 10/18/22 09:00 10/18/22 08:46 Ferrous Sulfate 325 Mg Tab PO 325 mg DAILY YESSY Administration Furosemide 40 mg 10/18/22 09:00 10/18/22 08:46 Furosemide 40 Mg Tab PO 40 mg BID@0900,1600 YESSY Administration Glipizide 5 mg 10/18/22 09:00 10/18/22 08:46 Glipizide 5 Mg Tab PO 5 mg BID YESSY Administration Hydromorphone HCl 1 mg 10/17/22 21:18 10/18/22 08:46 Hydromorphone 2 Mg Tab PO 1 mg Q3HR PRN Administration Severe Pain (Scale 7 to 10) Diltiazem HCl 125 mg/ Sodium 125 mls @ 5 mls/hr 10/17/22 21:30 10/17/22 21:59 Chloride IV 5 mg/hr .Q24H YESSY 5 mls/hr Administration 5 MG/HR Sodium Chloride 1,000 mls @ 20 mls/hr 10/17/22 21:30 10/17/22 22:00 Saline 0.9% IV 20 mls/hr .Q24H YESSY Administration Ceftriaxone Sodium 2 gm/ 50 mls @ 100 mls/hr 10/18/22 22:00 Sodium Chloride IVPB Q24H [facility] Protocol Loratadine 10 mg 10/18/22 09:00 10/18/22 08:46 Loratadine 10 Mg Tab PO 10 mg DAILY YESSY Administration Metoprolol Succinate 150 mg 10/18/22 21:00 Metoprolol Succinate (Er) 50 Mg Tab.Er.24h PO BID YESSY Multivitamins 1 each 10/18/22 09:00 10/18/22 08:45 Multivitamins, Thera 1 Each Tab PO 1 each DAILY YESSY Administration Naloxone HCl 0.2 mg 10/17/22 21:18 Naloxone 0.4 Mg/Ml 1 Ml Vial IV Q2M PRN Opioid Reversal Ondansetron HCl 4 mg 10/17/22 21:18 Ondansetron 4 Mg/2 Ml Vial IVP Q8HR PRN Nausea And Vomiting Oxybutynin Chloride 5 mg 10/18/22 09:00 10/18/22 08:45 Oxybutynin Chloride 5 Mg Tab PO 5 mg DAILY YESSY Administration Risperidone 0.5 mg 10/18/22 21:00 Risperidone 0.5 Mg Tab PO HS YESSY Sacubitril/Valsartan 1 each 10/18/22 09:00 10/18/22 08:46 Sacubitril/Valsartan 24 Mg-26 Mg Tablet PO 1 each BID YESSY Administration Sertraline HCl 50 mg 10/18/22 21:00 Sertraline 50 Mg Tab PO HS YESSY Tamsulosin HCl 0.4 mg 10/18/22 21:00 Tamsulosin 0.4 Mg Cap.Er.24h PO HS YESSY Thiamine HCl 100 mg 10/18/22 09:00 10/18/22 08:46 Thiamine 100 Mg Tab PO 100 mg DAILY YESSY Administration Intake and Output 10/17/22 10/18/22 10/18/22 22:59 06:59 14:59 Output Total 600 100 Balance -600 -100 Output: Urine 600 100 Other: Voiding Method Urinal Urinal Weight 107.501 kg 109.5 kg 10/17/22 19:05 10/17/22 19:05
[2022-10-18 11:54] LABS: African American GFR (CKD) 48 (>60 ml/min/1.73 sqM); Anion Gap 10 mmol/L; Blood Urea Nitrogen 51 mg/dL (9-20); Calcium 8.1 mg/dL (8.4-10.2); Carbon Dioxide 19 mmol/L (22-30); Chloride 105 mmol/L (98-107); Glucose 125 mg/dL (74-99); Non-African American GFR(CKD) 41 (>60 ml/min/1.73 sqM); Potassium 4.7 mmol/L (3.5-5.1); Sodium 134 mmol/L (137-145)
[2022-10-18 12:05] LABS: Glucose,Whole Blood 124 mg/dL (70-110)
[2022-10-18] MEDS ORDERED: DEXTROSE 50% SYRINGE 50 ML IVP PRN ×2 (13:58)
--- NOTE | 2022-10-18 14:01 | P.PN ---
Subjective Progress Note Date: 10/18/22 Hospital Course: 72-year-old male with an extensive damage including systolic CHF, A. fib on Eliquis, CAD status post stents, COPD, type II DM, hypertension, who presents to the emergency room with complaints of back pain. Per his primary, patient may have thrown off that at fell to the floor at the resident home. In the emergency room, laboratory evaluation was remarkable for UA consistent with UTI, leukocytosis 12.9, and creatinine 1.90 (up from 1.58 on 10/03). Thoracic and lumbar spine CT in the emergency room revealed severe acute compression deformity of T7 with spinal canal stenosis and a mild paravertebral hematoma with neural foraminal stenosis. There was also vertebral compression collapse of the L2 subacute versus chronic. Of note, the patient was recently admitted to the hospital 2 weeks ago for similar complaints of back pain at which time he was noted to be in acute CHF exacerbation. The patient's home Lasix was increased from 40 mg daily to twice a day. EKG had revealed A. fib at 114 bpm. Chest x-ray revealed a compression fracture with mild cardiomegaly and COPD. cardiology, nephrology, orthospine consulted. Subjective: Patient seen and examined at bedside. No acute events overnight. Continues to have back pain, but denies any shortness of breath, palpitations, chest pain, or urinary complaints. Pertinent positives and negatives as discussed above, a complete review of systems was performed and all other systems are negative. Vitals Signs Reviewed. General: nontoxic, no distress, appears at stated age Derm: warm, dry Head: atraumatic, normocephalic, symmetric Eyes: EOMI, no lid lag, anicteric sclera Mouth: no lip lesion, mucus membranes moist Cardiovascular: S1S2 reg, no murmur Lungs: CTA bilateral, no rhonchi, no rales , no accessory muscle use Abdominal: soft, nontender to palpation, no guarding, no appreciable organomega ly Ext: no gross muscle atrophy, no edema, no contractures Neuro: CN II-XI grossly intact, no focal neuro deficits Psych: Alert, oriented, appropriate affect Data Reviewed Today: Pertinent Labs: Sodium 134, bicarb 19, creatinine 1.63, blood sugars range between 124-155 Imaging: No new imaging Assessment and Plan: Active: Acute thoracic vertebral fracture Suspected urinary tract infection Atrial fibrillation with RVR Acute kidney injury on chronic kidney disease Hyperkalemia Type 2 diabetes -Orthospine is consulted -Continue IV ceftriaxone -Urine cultures pending, blood cultures not obtained on admission -Discussed management with cardiology, holding anticoagulation, metoprolol succinate increased, Cardizem drip discontinued, -Nephrology note reviewed, holding Aldactone, Lasix after his dose -Repeat BMP tomorrow -Hold oxybutynin, continue Flomax -Hold home glipizide, continue sliding scale insulin Chronic: CAD COPD not in exacerbation Hypertension DVT ppx: mechanical Code status: Full code Anticipated discharge place: Pending clinical course Anticipated discharge time: And clinical course Objective - Vital Signs Vital signs: Vital Signs Temp 97.9 F 10/18/22 10:50 Pulse 90 10/18/22 10:50 Resp 17 10/18/22 10:50 BP 100/67 10/18/22 10:50 Pulse Ox 93 L 10/18/22 10:50 FiO2 Intake & Output 10/17/22 10/18/22 10/18/22 18:59 06:59 18:59 Intake Total 358 Output Total 600 100 Balance -600 258 Weight 107.501 kg 109.5 kg Intake: Oral 358 Output: Urine 600 100 Other: Voiding Method Urinal Urinal - Labs CBC & Chem 7: 10/17/22 19:05 10/18/22 11:21 Labs: Abnormal Lab Results - Last 24 Hours (Table) 10/17/22 10/17/22 10/17/22 Range/Units 19:05 19:05 20:23 WBC 12.9 H (3.8-10.6) k/uL RBC 3.07 L (4.30-5.90) m/uL Hgb 11.2 L (13.0-17.5) gm/dL Hct 34.2 L (39.0-53.0) % MCV 111.7 H (80.0-100.0) fL MCH 36.4 H (25.0-35.0) pg RDW 16.9 H (11.5-15.5) % Neutrophils # 11.3 H (1.3-7.7) k/uL Lymphocytes # 0.7 L (1.0-4.8) k/uL Macrocytosis Marked A Sodium 135 L (137-145) mmol/L Potassium 5.5 H (3.5-5.1) mmol/L Carbon Dioxide 18 L (22-30) mmol/L BUN 57 H (9-20) mg/dL Creatinine 1.90 H (0.66-1.25) mg/dL Glucose 109 H (74-99) mg/dL POC Glucose (mg/dL) (70-110) mg/dL Calcium (8.4-10.2) mg/dL Total Protein 8.4 H (6.3-8.2) g/dL Albumin 3.3 L (3.5-5.0) g/dL Urine Protein Trace H (Negative) Ur Leukocyte Esterase Large H (Negative) Urine WBC 157 H (0-5) /hpf Urine Bacteria Many H (None) /hpf Hyaline Casts 13 H (0-2) /lpf Urine Mucus Rare H (None) /hpf 10/18/22 10/18/22 10/18/22 Range/Units 06:10 11:21 11:55 WBC (3.8-10.6) k/uL RBC (4.30-5.90) m/uL Hgb (13.0-17.5) gm/dL Hct (39.0-53.0) % MCV (80.0-100.0) fL MCH (25.0-35.0) pg RDW (11.5-15.5) % Neutrophils # (1.3-7.7) k/uL Lymphocytes # (1.0-4.8) k/uL Macrocytosis Sodium 134 L (137-145) mmol/L Potassium (3.5-5.1) mmol/L Carbon Dioxide 19 L (22-30) mmol/L BUN 51 H (9-20) mg/dL Creatinine 1.63 H (0.66-1.25) mg/dL Glucose 125 H (74-99) mg/dL POC Glucose (mg/dL) 155 H 124 H (70-110) mg/dL Calcium 8.1 L (8.4-10.2) mg/dL Total Protein (6.3-8.2) g/dL Albumin (3.5-5.0) g/dL Urine Protein (Negative) Ur Leukocyte Esterase (Negative) Urine WBC (0-5) /hpf Urine Bacteria (None) /hpf Hyaline Casts (0-2) /lpf Urine Mucus (None) /hpf
[2022-10-18 16:43] LABS: Glucose,Whole Blood 85 mg/dL (70-110)
[2022-10-18] MEDS: INSULIN ASPART (NovoLOG) 100 UNIT/ML VIAL SQ SCH ×2 (17:44→22:15)
[2022-10-18 20:13] LABS: Glucose,Whole Blood 178 mg/dL (70-110)
[2022-10-18] MEDS: TAMSULOSIN 0.4 MG CAP.ER.24H PO SCH (22:12)
[2022-10-18] MEDS: SERTRALINE 50 MG TAB PO SCH (22:12)
[2022-10-18] MEDS: METOPROLOL SUCCINATE (ER) 50 MG TAB.ER.24H PO SCH (22:13)
[2022-10-18] MEDS: risperiDONE 0.5 MG TAB PO SCH (22:13)
[2022-10-18] MEDS: ATORVASTATIN 40 MG TAB PO SCH (22:13)
[2022-10-19 06:01] LABS: Glucose,Whole Blood 118 mg/dL (70-110)
[2022-10-19] MEDS: DILTIAZEM 125 MG in SODIUM CHLORIDE 0.9% 100 ML IV SCH (06:36)
[2022-10-19] MEDS: INSULIN ASPART (NovoLOG) 100 UNIT/ML VIAL SQ SCH ×4 (06:37→20:41)
--- NOTE | 2022-10-19 06:40 | P.PN ---
Progress Note - Text Progress Note Date: 10/19/22 Imaging reviewed T7 BURST fracture with posterior propogation AO Type A4 with a B3 component. Potential of instability due to acute fracture. Hematoma suggests acute fracture. There is retropulsion with moderate stenosis. Would favor stabilization if pt is able to undergo a minimally invasive procedure for ORIF and stabilization. 1.5-2 hr surgery. EBL would be around 150cc. Will tentatively schedule for planning purposes tomorrow T5-T9 stabilization for T7 ORIF to follow pending clearances and pt desires.
[2022-10-19 08:11] LABS: Anisocytosis Slight; Basophils % (A) 0 %; Eosinophils # (A) 0.1 k/uL (0-0.7); Eosinophils % (A) 1 %; HGB 9.8 gm/dL (13.0-17.5); Hypochromasia Moderate; Lymphocytes # (A) 0.7 k/uL (1.0-4.8); Lymphocytes % (A) 7 %; MCH 35.9 pg (25.0-35.0); MCHC 31.7 g/dL (31.0-37.0); MCV 113.3 fL (80.0-100.0); Mean Platelet Volume 7.2; Monocytes # (A) 0.6 k/uL (0-1.0); Monocytes % (A) 7 %; Neutrophils # (A) 8.1 k/uL (1.3-7.7); Neutrophils % (A) 84 %; Platelet Count 181 k/uL (150-450); Poikilocytosis Slight; RBC 2.74 m/uL (4.30-5.90); RDW 16.7 % (11.5-15.5); WBC 9.7 k/uL (3.8-10.6)
[2022-10-19 08:25] LABS: Macrocytosis Marked
[2022-10-19 08:40] LABS: African American GFR (CKD) 49 (>60 ml/min/1.73 sqM); Anion Gap 11 mmol/L; Blood Urea Nitrogen 44 mg/dL (9-20); Carbon Dioxide 16 mmol/L (22-30); Chloride 104 mmol/L (98-107); Glucose 108 mg/dL (74-99); Magnesium 1.7 mg/dL (1.6-2.3); Non-African American GFR(CKD) 42 (>60 ml/min/1.73 sqM); Potassium 4.4 mmol/L (3.5-5.1); Sodium 131 mmol/L (137-145)
[2022-10-19] MEDS: SODIUM CHLORIDE 0.9% 1,000 ML IV SCH ×2 (08:45→08:57)
[2022-10-19] MEDS: AMIODARONE 200 MG TAB PO SCH (08:56)
[2022-10-19] MEDS: CYANOCOBALAMIN 500 MCG TAB PO SCH (08:56)
[2022-10-19] MEDS: SACUBITRIL/VALSARTAN 24 MG-26 MG TABLET PO SCH ×2 (08:56→20:40)
[2022-10-19] MEDS: THIAMINE 100 MG TAB PO SCH (08:56)
[2022-10-19] MEDS: allopurinoL 100 MG TAB PO SCH (08:56)
[2022-10-19] MEDS: LORATADINE 10 MG TAB PO SCH (08:56)
[2022-10-19] MEDS: METOPROLOL SUCCINATE (ER) 50 MG TAB.ER.24H PO SCH ×2 (08:57→20:39)
[2022-10-19] MEDS: FERROUS SULFATE 325 MG TAB PO SCH (08:57)
[2022-10-19] MEDS: MULTIVITAMINS, THERA 1 EACH TAB PO SCH (08:57)
--- NOTE | 2022-10-19 09:05 | P.CNOR ---
History of Present Illness - [facility] Consult date: 10/19/22 Requesting physician: Sindy Cummins Consult reason: back pain, other (Spinal fracture) History of present illness: History of Presenting Illness Patient is a pleasant 71-year-old male who presented to the ER due to a recent fall and increased back pain. Patient states that he was getting ready to sit at the dinner table and felt dizzy and fell backwards onto the floor. Patient denies hitting his head or LOC. Patient does report chronic back pain. Patient denies any radicular symptoms to the bilateral lower extremities. He does report some numbness to his toes. He states he utilizes a four-wheel walker, and is normally independent. Patient states he does live at [facility]. Patient does have an extensive medical history of CHF, A. fib on Eliquis, CAD status post stents, COPD, type II DM, and hypertension. He does state a orthopedic history of surgery 2 of left hip. Patient seen and examined this morning. Patient is resting comfortably in bed. Discussed with patient imaging results of a T7 burst fracture that is listed as unstable. Discussed risks and benefits of surgical procedure of a T5T9 stabilization with T7 kyphoplasty. Patient would like to proceed with procedure. Patient does have a legal guardian that the day shift RN states he will contact. Patient reports that his pain is managed on current regimen. He continues to deny any radicular symptoms to the bilateral lower extremities. VSS. CT of the Thoracic and Lumbar Spine taken on 10/17/22 demonstrate severe acute compression deformity of T7. Retropulsion contributes to moderate focal spinal canal stenosis. Associated mild paravertebral hematoma. This also results in moderate to severe right neural foraminal stenosis at T7-T8. 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 Review of Systems Pertinent positives and negatives as discussed in HPI, a complete review of sys tems was performed and all other systems are negative. Physical Examination General: The patient is awake and alert, in no acute distress Skin: Skin is warm and dry with no obvious rashes or lesions. Eye: Pupils are equal, round and reactive to light, extra-ocular movements are intact; there is normal conjunctiva bilaterally. Neck: The neck is supple, there is no tenderness and ROM intact. Cardiovascular: There is a regular rate and rhythm. No murmur, rub or gallop is appreciated. Respiratory: Lungs are clear to auscultation, respirations are non-labored, breath sounds are equal. Gastrointestinal: Soft, non-distended, non-tender abdomen. Back: There is no tenderness to palpation in the midline, paralumbar, parathoracic or buttocks region. There is no obvious deformity. Musculoskeletal: ROM limited secondary to pain and stiffness from surgical procedure. Shoulder abduction 5/5, elbow flexors 5/5, wrist dorsiflexors 5/5. finger abductor 5/5, auditor 5/5, hip flexor 5/5, knee flexor 5/5, ankle dorsiflexor 5/5, ankle plantarflexion 5/5 and extensor hallucis 5/5. Neurological: CN 2-12 intact. There are no obvious motor or sensory deficits. Movement and coordination equal and intact. Sensory exam to light touch intact C5-T1 and intact from L2-S1. Reflexes 2/4 in bilateral upper and lower extremities. Negative Hoffmans, babinski, and clonus signs. Psychiatric: Cooperative, appropriate mood & affect, normal judgment. Assessment and Plan 1. Fall with trauma 2. T7 BURST fracture with posterior propogation AO Type A4 with a B3 component 3. Mechanical back pain 4. Complex medical comorbidities -Appreciate acura sales consultant and team management. -TLSO brace will be ordered -NPO at [place] -Surgical intervention planned for tomorrow 10/20/22 pending medical and cardiology clearance -Pain control: Adequate at this time -Meds: reviewed -GI ppx: senna, Miralax -DVT PPX: Mechanical -Encourage IS 10x/hr -Dispo: Clinical pending *I reviewed and discussed this case with my attending Dr. Truong, whom has reviewed this chart and films and is in agreement with assessment and plan of care as outlined above. I have personally seen and examined the patient, performed the documentation and the assessment and plan as written. Number of minutes spent on the visit: 20m. I reviewed and discussed this case with my attending Dr. Truong, whom has reviewed this chart and films and is in agreement with assessment and plan of care as outlined above. I have personally seen and examined the patient, performed the documentation and the assessment and plan as written. Number of minutes spent on the visit: 20m. Past Medical History Past Medical History: Atrial Fibrillation, Coronary Artery Disease (CAD), Heart Failure, Diabetes Mellitus, Hyperlipidemia, Hypertension Additional Past Medical History / Comment(s): See Dr Piedra's H&P. "Feet cold sometimes". Gout. Hx UTI and kidney infection with Covid. History of Any Multi-Drug Resistant Organisms: None Reported Past Surgical History: Heart Catheterization With Stent, Orthopedic Surgery, Pacemaker Additional Past Surgical History / Comment(s): 2 STENTS DEC 2020, left hip surgery X2. Past Anesthesia/Blood Transfusion Reactions: No Reported Reaction, Postoperative Nausea & Vomiting (PONV) Additional Past Anesthesia/Blood Transfusion Reaction / Comm: UNKNOWN FAMILY HX. Date of Last Stent Placement:: DEC 2020 Type of Cardiac Device: Unknown Device Placement Date:: Unknown Past Psychological History: Anxiety, Depression Smoking Status: Former smoker Past Alcohol Use History: None Reported Past Drug Use History: None Reported - Past Family History Mother Family Medical History: Cancer Brother(s) Family Medical History: Cancer Additional Family Medical History / Comment(s): Lung cancer. Father History Unknown: Yes Family Medical History: Hyperlipidemia Medications and Allergies Home Medications Medication Instructions Recorded Confirmed Type Ferrous Sulfate [Iron] 325 mg PO DAILY@79910/21/20 10/17/22 History Sertraline HCl [Zoloft] 50 mg PO HS@199910/21/20 10/17/22 History Tamsulosin HCl [Flomax] 0.4 mg PO HS@199910/21/20 10/17/22 History allopurinoL [Zyloprim] 100 mg PO DAILY@79910/21/20 10/17/22 History risperiDONE [RisperDAL] 0.5 mg PO HS@199910/21/20 10/17/22 History Apixaban [Eliquis] 5 mg PO BID@799,199905/09/21 10/17/22 History Cyanocobalamin [Vitamin B-12] 500 mcg PO DAILY@79905/09/21 10/17/22 History Metoprolol Succinate (ER) [Toprol 100 mg PO BID@799,199905/09/21 10/17/22 History XL] Thiamine HCl [Vitamin B-1] 100 mg PO DAILY@79905/09/21 10/17/22 History Amiodarone [Cordarone] 200 mg PO DAILY@79902/06/22 10/17/22 History Loratadine [Claritin] 10 mg PO DAILY@79902/06/22 10/17/22 History Multivit-Min/FA/Lycopen/Lutein 1 tab PO DAILY@79902/06/22 10/17/22 History [Centrum Silver Men Tablet] glipiZIDE [Glucotrol] 5 mg PO BID@08,199902/06/22 10/17/22 History Acetaminophen Tab [Tylenol] 1,000 mg PO TID@0800,1599,199910/01/22 10/17/22 History Sacubitril/Valsartan [Entresto 24 1 tab PO BID@08,199910/01/22 10/17/22 History mg-26 mg Tablet] Spironolactone [Aldactone] 50 mg PO DAILY@79910/01/22 10/17/22 History Atorvastatin [Lipitor] 40 mg PO HS@199910/16/22 10/17/22 History Clopidogrel [Plavix] 75 mg PO DAILY@79910/16/22 10/17/22 History Furosemide [Lasix] 40 mg PO BID@0800,1400 10/16/22 10/17/22 History oxyBUTYnin chloride [Ditropan] 5 mg PO DAILY@79910/16/22 10/17/22 History Ergocalciferol (Vitamin D2) 1,250 mcg PO QMONTHLY 10/17/22 10/17/22 History [Drisdol (50,000 Iu)] Lidocaine 5% Patch [Lidoderm] 1 patch TOPICAL DAILY 10/17/22 10/17/22 History Allergies Allergy/AdvReac Type Severity Reaction Status Date / Time No Known Allergies Allergy Verified 10/17/22 18:53 Results - Labs Labs: Abnormal Lab Results - Last 24 Hours (Table) 10/18/22 10/18/22 10/18/22 Range/Units 11:21 11:55 20:11 Sodium 134 L (137-145) mmol/L Carbon Dioxide 19 L (22-30) mmol/L BUN 51 H (9-20) mg/dL Creatinine 1.63 H (0.66-1.25) mg/dL Glucose 125 H (74-99) mg/dL POC Glucose (mg/dL) 124 H 178 H (70-110) mg/dL Calcium 8.1 L (8.4-10.2) mg/dL 10/19/22 Range/Units 05:58 Sodium (137-145) mmol/L Carbon Dioxide (22-30) mmol/L BUN (9-20) mg/dL Creatinine (0.66-1.25) mg/dL Glucose (74-99) mg/dL POC Glucose (mg/dL) 118 H (70-110) mg/dL Calcium (8.4-10.2) mg/dL H & H 10/17/22 Range/Units 19:05 Hgb 11.2 L (13.0-17.5) gm/dL Hct 34.2 L (39.0-53.0) % Coagulation 10/17/22 Range/Units 19:05 INR 1.1 (<1.2) Result Diagrams: 10/19/22 07:29 10/19/22 07:29
[2022-10-19] MEDS: HYDROmorphone 2 MG TAB PO PRN ×4 (11:02→23:39)
--- NOTE | 2022-10-19 11:23 | P.PN ---
Subjective Progress Note Date: 10/19/22 Hospital Course: 72-year-old male with an extensive damage including systolic CHF, A. fib on Janna gama, CAD status post stents, COPD, type II DM, hypertension, who presents to the emergency room with complaints of back pain. Per his primary, patient may have thrown off that at fell to the floor at the resident home. In the emergency room, laboratory evaluation was remarkable for UA consistent with UTI, leukocytosis 12.9, and creatinine 1.90 (up from 1.58 on 10/03). Thoracic and lumbar spine CT in the emergency room revealed severe acute compression deformity of T7 with spinal canal stenosis and a mild paravertebral hematoma with neural foraminal stenosis. There was also vertebral compression collapse of the L2 subacute versus chronic. Of note, the patient was recently admitted to the hospital 2 weeks ago for similar complaints of back pain at which time he was noted to be in acute CHF exacerbation. The patient's home Lasix was increased from 40 mg daily to twice a day. EKG had revealed A. fib at 114 bpm. Chest x-ray revealed a compression fracture with mild cardiomegaly and COPD. cardiology, nephrology, orthospine consulted. Orthospine considering surgical intervention for T7 burst fracture tomorrow 10/20. Subjective: Patient seen and examined at bedside. No acute events overnight. Continues to have back pain, but denies any shortness of breath, palpitations, chest pain, or urinary complaints. Pertinent positives and negatives as discussed above, a complete review of systems was performed and all other systems are negative. Vitals Signs Reviewed. General: nontoxic, no distress, appears at stated age Derm: warm, dry Head: atraumatic, normocephalic, symmetric Eyes: EOMI, no lid lag, anicteric sclera Mouth: no lip lesion, mucus membranes moist Cardiovascular: S1S2 irregular, no murmur Lungs: CTA bilateral, no rhonchi, no rales , no accessory muscle use Abdominal: soft, nontender to palpation, no guarding, no appreciable organomegaly Ext: no gross muscle atrophy, no edema, no contractures Neuro: CN II-XI grossly intact, no focal neuro deficits Psych: Alert, oriented, appropriate affect Data Reviewed Today: Pertinent Labs: WBC 9.7, hemoglobin 9.8, sodium 131, bicarb 16, creatinine 1.61, glucose range between 85-178 Imaging: No new imaging Assessment and Plan: Active: Acute T7 burst fracture Suspected urinary tract infection Atrial fibrillation with RVR, now rate controlled Acute kidney injury on chronic kidney disease, resolving Hyperkalemia, resolved Type 2 diabetes Chronic macrocytic anemia, stable Non-anion gap metabolic acidosis Mild hyponatremia -Orthospine note reviewed, patient scheduled for surgical intervention tomorrow 10/20 -Continue IV ceftriaxone -Urine cultures pending, blood cultures not obtained on admission -Cardiology following, holding anticoagulation, rate controlled with metoprolol -Nephrology following holding Aldactone, diuretics on hold -Continue entresto per nephrology -Hold oxybutynin, continue Flomax -Hold home glipizide, continue sliding scale insulin -Based on his comorbidities per NSQIP, he has about 15% risk of perioperative mortality, 31% risk for serious complication, 41% risk for any complication, 88% risk for discharge nursing or rehab facility. -He is currently not on any anticoagulation, volume status is euvolemic, heart rate is controlled -Patient is medically optimized, needs further clearance from cardiology and nephrology. Chronic: CAD COPD not in exacerbation Hypertension DVT ppx: mechanical Code status: Full code Anticipated discharge place: Pending clinical course Anticipated discharge time: Pending clinical course Objective - Vital Signs Vital signs: Vital Signs Temp 97.5 F L 10/19/22 08:00 Pulse 84 10/19/22 08:00 Resp 18 10/19/22 08:00 BP 102/68 10/19/22 08:00 Pulse Ox 95 10/19/22 08:11 FiO2 Intake & Output 10/18/22 10/19/22 10/19/22 18:59 06:59 18:59 Intake Total 834 360 Output Total 1500 1250 300 Balance -666 -1250 60 Intake: Oral 834 360 Output: Urine 1500 1250 300 Other: Voiding Method Urinal Urinal Indwelling Catheter - Labs CBC & Chem 7: 10/19/22 07:29 10/19/22 07:29 Labs: Abnormal Lab Results - Last 24 Hours (Table) 10/18/22 10/18/22 10/18/22 Range/Units 11:21 11:55 20:11 RBC (4.30-5.90) m/uL Hgb (13.0-17.5) gm/dL Hct (39.0-53.0) % MCV (80.0-100.0) fL MCH (25.0-35.0) pg RDW (11.5-15.5) % Neutrophils # (1.3-7.7) k/uL Lymphocytes # (1.0-4.8) k/uL Macrocytosis Sodium 134 L (137-145) mmol/L Carbon Dioxide 19 L (22-30) mmol/L BUN 51 H (9-20) mg/dL Creatinine 1.63 H (0.66-1.25) mg/dL Glucose 125 H (74-99) mg/dL POC Glucose (mg/dL) 124 H 178 H (70-110) mg/dL Calcium 8.1 L (8.4-10.2) mg/dL 10/19/22 10/19/22 10/19/22 Range/Units 05:58 07:29 07:29 RBC 2.74 L (4.30-5.90) m/uL Hgb 9.8 L (13.0-17.5) gm/dL Hct 31.0 L (39.0-53.0) % MCV 113.3 H (80.0-100.0) fL MCH 35.9 H (25.0-35.0) pg RDW 16.7 H (11.5-15.5) % Neutrophils # 8.1 H (1.3-7.7) k/uL Lymphocytes # 0.7 L (1.0-4.8) k/uL Macrocytosis Marked A Sodium 131 L (137-145) mmol/L Carbon Dioxide 16 L (22-30) mmol/L BUN 44 H (9-20) mg/dL Creatinine 1.61 H (0.66-1.25) mg/dL Glucose 108 H (74-99) mg/dL POC Glucose (mg/dL) 118 H (70-110) mg/dL Calcium 8.0 L (8.4-10.2) mg/dL
[2022-10-19 11:25] LABS: Glucose,Whole Blood 228 mg/dL (70-110)
--- NOTE | 2022-10-19 12:06 | P.PN ---
Subjective Patient is seen for follow-up for acute kidney injury on top of chronic kidney disease. Patient was admitted to the hospital with complaints of back pain and history of fall. He was noted to have a thoracic vertebral fracture. Patient was also noted to be in A. fib with RVR. Blood pressure had been on the lower side. Patient was also noted to have significant urine retention and Jacobs catheter was placed yesterday. Serum creatinine remains around 1.6 mg/dL. Lasix is now discontinued. Objective - Vital Signs Vital signs: Vital Signs Temp 97.9 F 10/19/22 11:37 Pulse 81 10/19/22 11:37 Resp 16 10/19/22 11:37 BP 92/57 10/19/22 11:37 Pulse Ox 94 L 10/19/22 11:37 FiO2 Intake & Output 10/18/22 10/19/22 10/19/22 18:59 06:59 18:59 Intake Total 834 360 Output Total 1500 1250 300 Balance -666 -1250 60 Intake: Oral 834 360 Output: Urine 1500 1250 300 Other: Voiding Method Urinal Urinal Indwelling Catheter - Exam Patient is awake, comfortable, no acute distress Examination of the heart S1 and S2 Examination of the lungs bilateral breath sounds are heard Abdomen is soft nontender Examination of lower extremities shows no significant edema [employer]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 - Labs CBC & Chem 7: 10/19/22 07:29 10/19/22 07:29 Labs: Abnormal Lab Results - Last 24 Hours (Table) 10/18/22 10/18/22 10/19/22 Range/Units 11:55 20:11 05:58 RBC (4.30-5.90) m/uL Hgb (13.0-17.5) gm/dL Hct (39.0-53.0) % MCV (80.0-100.0) fL MCH (25.0-35.0) pg RDW (11.5-15.5) % Neutrophils # (1.3-7.7) k/uL Lymphocytes # (1.0-4.8) k/uL Macrocytosis Sodium (137-145) mmol/L Carbon Dioxide (22-30) mmol/L BUN (9-20) mg/dL Creatinine (0.66-1.25) mg/dL Glucose (74-99) mg/dL POC Glucose (mg/dL) 124 H 178 H 118 H (70-110) mg/dL Calcium (8.4-10.2) mg/dL 10/19/22 10/19/22 10/19/22 Range/Units 07:29 07:29 11:23 RBC 2.74 L (4.30-5.90) m/uL Hgb 9.8 L (13.0-17.5) gm/dL Hct 31.0 L (39.0-53.0) % MCV 113.3 H (80.0-100.0) fL MCH 35.9 H (25.0-35.0) pg RDW 16.7 H (11.5-15.5) % Neutrophils # 8.1 H (1.3-7.7) k/uL Lymphocytes # 0.7 L (1.0-4.8) k/uL Macrocytosis Marked A Sodium 131 L (137-145) mmol/L Carbon Dioxide 16 L (22-30) mmol/L BUN 44 H (9-20) mg/dL Creatinine 1.61 H (0.66-1.25) mg/dL Glucose 108 H (74-99) mg/dL POC Glucose (mg/dL) 228 H (70-110) mg/dL Calcium 8.0 L (8.4-10.2) mg/dL Assessment and Plan Assessment: 1. Acute kidney injury associated with hemodynamic instability and hemodynamic ATN. Currently nonoliguric. Component of obstructive uropathy and urine retention, status post Jacobs catheter placement. Patient did have a Jacobs catheter during his last admission on 10/02/2022 as well. Ultrasound on 10/02/2022 did not show any significant hydronephrosis. UA shows WBCs 157 trace protein. 2. A. fib with RVR maintained on Cardizem drip 3. Hyperkalemia associated with acute kidney injury and use of Aldactone, and urine retention. No active GI bleeding noted. 4. Mild non-gap metabolic acidosis associated with acute kidney injury 5. Acute thoracic vertebral fracture 6. CK D NKF stage IIIa with baseline creatinine around 1.3-1.5 mg/dL 7. Pyuria rule out UTI Plan: Can resume Aldactone Add oral sodium bicarb Continue with Jacobs catheter Continue with entresto Continue off of IV fluids
--- NOTE | 2022-10-19 12:51 | P.PN ---
Subjective Progress Note Date: 10/19/22 The patient was interviewed and examined. HPI: Patient is a pleasant 72-year-old male who presented to the hospital yesterday after a fall and dizziness. Patient states that he had been going to dinner, and as he attempted to get the chair, he reports that he got significantly dizzy, and fell. After presentation to the emergency department, it was determined the patient had sustained a compression fracture of his T7 vertebrae. Due to this the patient's anticoagulation was discontinued. Patient demonstrated a mild elevation in white blood cell count of 12.9, patient also demonstrated possible dehydration with a sodium of 135, potassium of 5.5, B1 57, creatinine 1.9. His EKG upon arrival to the emergency department demonstrated atrial fibrillation with rapid ventricular response, with a heart rate of 114. The patient is well-known to our service, and has a past cardiac history that includes atrial fibrillation, coronary artery disease with stent placement, diabetes, hypertension, hyperlipidemia, and gout. REVIEW OF LABS, ECG & MEDICAL DATA: LABS: White count 12.9, hemoglobin 11.2, platelets 244, sodium 135, potassium 5.5, B1 57, creatinine 1.9, magnesium 1.8, troponin less than 0.012, proBNP 1650 EKG: Atrial fibrillation with rapid ventricular response, heart rate 114 IMAGING: Chest x-ray dated 10/17/2022 demonstrates severe mid thoracic vertebral compression deformity not clearly seen on previous exam, mild cardiomegaly and COPD, no definitive acute cardiopulmonary process. 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 VITALS: Temp 98.0, pulse 103, respirations 18, blood pressure 112/74, O2 saturation 97% on room air 10/19 Patient is seen today in follow-up. Heart rate this morning is running in the 80s, blood pressure 92/57 and 102/68. Pulse ox 94% on room air. Telemetry is atrial fibrillation controlled rate. Repeat blood work reveals BUN 44 creatinine 1.61. Hemoglobin 9.8. Sodium 131, potassium 4.4. Patient denies having any chest pain, shortness of breath. He does complain of back pain secondary to T7 fracture. EXAMINATION: GENERAL: Well-appearing, well-nourished and in no acute distress. NECK: Supple without JVD or thyromegaly. LUNGS: Breath sounds clear to auscultation bilaterally. Respiration equal and unlabored. No wheezes, rales or rhonchi. HEART: Irregular rate and rhythm without murmurs, rubs or gallops. S1 and S2 heard. EXTREMITIES: Normal range of motion, no edema. No clubbing or cyanosis. Peripheral pulses intact and strong. IMPRESSION: 1. Atrial fibrillation with rapid ventricular response 2. Dehydration 3. Dizziness 4. T7 compression fracture PLAN: Agree with discontinuing anticoagulation at this time secondary to T7 compression fracture. Continue increased dose of metoprolol succinate 150 mg twice a day May need to discontinue Entresto if blood pressure does not tolerate, if necessary we will change the patient to low-dose ARB. Further recommendations based on patient's clinical course. Thank you for the consult and allowing us to participate in the care of this patient. Objective - Vital Signs Vital signs: Vital Signs Temp 97.7 F 10/19/22 04:00 Pulse 103 H 10/19/22 04:00 Resp 18 10/19/22 04:00 BP 99/65 10/19/22 04:00 Pulse Ox 95 10/19/22 08:11 FiO2 Intake & Output 10/18/22 10/19/22 10/19/22 18:59 06:59 18:59 Intake Total 834 Output Total 1500 1250 Balance -666 -1250 Intake: Oral 834 Output: Urine 1500 1250 Other: Voiding Method Urinal Urinal - Labs CBC & Chem 7: 10/19/22 07:29 10/19/22 07:29 Labs: Abnormal Lab Results - Last 24 Hours (Table) 10/18/22 10/18/22 10/18/22 Range/Units 11:21 11:55 20:11 RBC (4.30-5.90) m/uL Hgb (13.0-17.5) gm/dL Hct (39.0-53.0) % MCV (80.0-100.0) fL MCH (25.0-35.0) pg RDW (11.5-15.5) % Neutrophils # (1.3-7.7) k/uL Lymphocytes # (1.0-4.8) k/uL Macrocytosis Sodium 134 L (137-145) mmol/L Carbon Dioxide 19 L (22-30) mmol/L BUN 51 H (9-20) mg/dL Creatinine 1.63 H (0.66-1.25) mg/dL Glucose 125 H (74-99) mg/dL POC Glucose (mg/dL) 124 H 178 H (70-110) mg/dL Calcium 8.1 L (8.4-10.2) mg/dL 10/19/22 10/19/22 10/19/22 Range/Units 05:58 07:29 07:29 RBC 2.74 L (4.30-5.90) m/uL Hgb 9.8 L (13.0-17.5) gm/dL Hct 31.0 L (39.0-53.0) % MCV 113.3 H (80.0-100.0) fL MCH 35.9 H (25.0-35.0) pg RDW 16.7 H (11.5-15.5) % Neutrophils # 8.1 H (1.3-7.7) k/uL Lymphocytes # 0.7 L (1.0-4.8) k/uL Macrocytosis Marked A Sodium 131 L (137-145) mmol/L Carbon Dioxide 16 L (22-30) mmol/L BUN 44 H (9-20) mg/dL Creatinine 1.61 H (0.66-1.25) mg/dL Glucose 108 H (74-99) mg/dL POC Glucose (mg/dL) 118 H (70-110) mg/dL Calcium 8.0 L (8.4-10.2) mg/dL
[2022-10-19 16:36] LABS: Glucose,Whole Blood 314 mg/dL (70-110)
[2022-10-19 19:54] LABS: Glucose,Whole Blood 242 mg/dL (70-110)
[2022-10-19] MEDS: ATORVASTATIN 40 MG TAB PO SCH (20:39)
[2022-10-19] MEDS: SERTRALINE 50 MG TAB PO SCH (20:39)
[2022-10-19] MEDS: TAMSULOSIN 0.4 MG CAP.ER.24H PO SCH (20:40)
[2022-10-19] MEDS: SODIUM BICARBONATE TAB 650 MG TAB PO SCH (20:40)
[2022-10-19] MEDS: risperiDONE 0.5 MG TAB PO SCH (20:41)
[2022-10-20] MEDS: HYDROmorphone 2 MG TAB PO PRN (03:33)
[2022-10-20 05:55] LABS: Glucose,Whole Blood 125 mg/dL (70-110)
[2022-10-20] MEDS: INSULIN ASPART (NovoLOG) 100 UNIT/ML VIAL SQ SCH ×4 (06:18→21:16)
[2022-10-20] MEDS: AMIODARONE 200 MG TAB PO SCH (08:19)
[2022-10-20] MEDS: allopurinoL 100 MG TAB PO SCH (08:19)
[2022-10-20] MEDS: SACUBITRIL/VALSARTAN 24 MG-26 MG TABLET PO SCH ×2 (08:19→21:30)
[2022-10-20] MEDS: CYANOCOBALAMIN 500 MCG TAB PO SCH (08:19)
[2022-10-20] MEDS: LORATADINE 10 MG TAB PO SCH (08:19)
[2022-10-20] MEDS: THIAMINE 100 MG TAB PO SCH (08:19)
[2022-10-20] MEDS: METOPROLOL SUCCINATE (ER) 50 MG TAB.ER.24H PO SCH ×2 (08:19→21:18)
[2022-10-20] MEDS: SODIUM BICARBONATE TAB 650 MG TAB PO SCH ×2 (08:19→21:18)
[2022-10-20] MEDS: FERROUS SULFATE 325 MG TAB PO SCH (08:19)
[2022-10-20] MEDS: SODIUM CHLORIDE 0.9% 1,000 ML IV SCH ×2 (08:21→17:45)
[2022-10-20] MEDS: MULTIVITAMINS, THERA 1 EACH TAB PO SCH (08:21)
--- NOTE | 2022-10-20 09:34 | P.PN ---
Subjective Progress Note Date: 10/20/22 Principal diagnosis: Back pain Spinal fracture Patient seen and examined at bedside this morning. Patient is resting comfortably in bed. Patient does have complaint of mid back pain that is exacerbated with activity. Patient has remained nothing by mouth since midnight for surgical procedure scheduled for later today. VSS. No acute events overnight. Objective - Vital Signs Vital signs: Vital Signs Temp 98.6 F 10/20/22 03:30 Pulse 96 10/20/22 03:30 Resp 16 10/20/22 03:30 BP 105/57 10/20/22 03:30 Pulse Ox 94 L 10/20/22 07:50 FiO2 Intake & Output 10/19/22 10/20/22 10/20/22 18:59 06:59 18:59 Intake Total 720 Output Total 550 300 Balance 170 -300 Intake: Oral 720 Output: Urine 550 300 Other: Voiding Method Indwelling Catheter Indwelling Catheter - Exam Physical Examination General: The patient is awake and alert, in no acute distress Skin: Skin is warm and dry with no obvious rashes or lesions. Eye: Pupils are equal, round and reactive to light, extra-ocular movements are intact; there is normal conjunctiva bilaterally. Neck: The neck is supple, there is no tenderness and ROM intact. Cardiovascular: There is a regular rate and rhythm. No murmur, rub or gallop is appreciated. Respiratory: Lungs are clear to auscultation, respirations are non-labored, breath sounds are equal. Gastrointestinal: Soft, non-distended, non-tender abdomen. Back: There is no tenderness to palpation in the midline, paralumbar, parathoracic or buttocks region. There is no obvious deformity . Musculoskeletal: ROM limited secondary to pain and stiffness from surgical procedure. Muscle strength in all major muscle groups of bilateral upper extremities 5/5, bilateral lower extremities 4+/5. Neurological: CN 2-12 intact. There are no obvious motor or sensory deficits. Movement and coordination equal and intact. Sensory exam to light touch intact C5-T1 and intact from L2-S1. Reflexes 2/4 in bilateral upper and lower extremities. Negative Hoffmans, babinski, and clonus signs. Psychiatric: Cooperative, appropriate mood & affect, normal judgment. - Labs CBC & Chem 7: 10/19/22 07:29 10/19/22 07:29 Labs: Abnormal Lab Results - Last 24 Hours (Table) 10/19/22 10/19/22 10/19/22 Range/Units 07:29 07:29 11:23 RBC 2.74 L (4.30-5.90) m/uL Hgb 9.8 L (13.0-17.5) gm/dL Hct 31.0 L (39.0-53.0) % MCV 113.3 H (80.0-100.0) fL MCH 35.9 H (25.0-35.0) pg RDW 16.7 H (11.5-15.5) % Neutrophils # 8.1 H (1.3-7.7) k/uL Lymphocytes # 0.7 L (1.0-4.8) k/uL Macrocytosis Marked A Sodium 131 L (137-145) mmol/L Carbon Dioxide 16 L (22-30) mmol/L BUN 44 H (9-20) mg/dL Creatinine 1.61 H (0.66-1.25) mg/dL Glucose 108 H (74-99) mg/dL POC Glucose (mg/dL) 228 H (70-110) mg/dL Calcium 8.0 L (8.4-10.2) mg/dL 10/19/22 10/19/22 10/20/22 Range/Units 16:35 19:53 05:54 RBC (4.30-5.90) m/uL Hgb (13.0-17.5) gm/dL Hct (39.0-53.0) % MCV (80.0-100.0) fL MCH (25.0-35.0) pg RDW (11.5-15.5) % Neutrophils # (1.3-7.7) k/uL Lymphocytes # (1.0-4.8) k/uL Macrocytosis Sodium (137-145) mmol/L Carbon Dioxide (22-30) mmol/L BUN (9-20) mg/dL Creatinine (0.66-1.25) mg/dL Glucose (74-99) mg/dL POC Glucose (mg/dL) 314 H 242 H 125 H (70-110) mg/dL Calcium (8.4-10.2) mg/dL Assessment and Plan Assessment: 1. Fall with trauma 2. T7 BURST fracture with posterior propogation AO Type A4 with a B3 component 3. Mechanical back pain 4. Complex medical comorbidities Plan: -Appreciate mgmt consultant and team management. -Prescription for TLSO brace has been placed in chart -Maintain NPO, Surgical intervention planned for today 10/20/22 -Pain control: Adequate at this time -Meds: reviewed -GI ppx: senna, Miralax -DVT PPX: Eliquis is on hold, Mechanical -Encourage IS 10x/hr -Dispo: Clinical pending *I reviewed and discussed this case with my attending Dr. Truong, whom has reviewed this chart and films and is in agreement with assessment and plan of care as outlined above. I have personally seen and examined the patient, performed the documentation and the assessment and plan as written. Number of minutes spent on the visit: 20m.
[2022-10-20 09:44] LABS: African American GFR (CKD) 40 (>60 ml/min/1.73 sqM); Anion Gap 11 mmol/L; Blood Urea Nitrogen 46 mg/dL (9-20); Calcium 7.7 mg/dL (8.4-10.2); Carbon Dioxide 18 mmol/L (22-30); Chloride 105 mmol/L (98-107); Glucose 109 mg/dL (74-99); Non-African American GFR(CKD) 35 (>60 ml/min/1.73 sqM); Potassium 4.2 mmol/L (3.5-5.1); Sodium 134 mmol/L (137-145)
[2022-10-20 10:16] LABS: Anisocytosis Slight; Basophils % (A) 0 %; Eosinophils # (A) 0.1 k/uL (0-0.7); Eosinophils % (A) 2 %; HCT 27.3 % (39.0-53.0); HGB 9.1 gm/dL (13.0-17.5); Hypochromasia Slight; Lymphocytes # (A) 0.3 k/uL (1.0-4.8); Lymphocytes % (A) 5 %; MCH 37.2 pg (25.0-35.0); MCHC 33.4 g/dL (31.0-37.0); MCV 111.3 fL (80.0-100.0); Mean Platelet Volume 7.6; Monocytes # (A) 0.4 k/uL (0-1.0); Monocytes % (A) 7 %; Neutrophils # (A) 5.3 k/uL (1.3-7.7); Neutrophils % (A) 85 %; Platelet Count 151 k/uL (150-450); Poikilocytosis Slight; RBC 2.46 m/uL (4.30-5.90); RDW 16.6 % (11.5-15.5); WBC 6.3 k/uL (3.8-10.6)
[2022-10-20 10:23] LABS: Macrocytosis Marked
--- NOTE | 2022-10-20 10:48 | P.PN ---
Subjective Progress Note Date: 10/20/22 The patient was interviewed and examined. HPI: Patient is a pleasant 72-year-old male who presented to the hospital yesterday after a fall and dizziness. Patient states that he had been going to dinner, and as he attempted to get the chair, he reports that he got significantly dizzy, and fell. After presentation to the emergency department, it was determined the patient had sustained a compression fracture of his T7 vertebrae. Due to this the patient's anticoagulation was discontinued. Patient demonstrated a mild elevation in white blood cell count of 12.9, patient also demonstrated possible dehydration with a sodium of 135, potassium of 5.5, B1 57, creatinine 1.9. His EKG upon arrival to the emergency department demonstrated atrial fibrillation with rapid ventricular response, with a heart rate of 114. The patient is well-known to our service, and has a past cardiac history that includes atrial fibrillation, coronary artery disease with stent placement, diabetes, hypertension, hyperlipidemia, and gout. REVIEW OF LABS, ECG & MEDICAL DATA: LABS: White count 12.9, hemoglobin 11.2, platelets 244, sodium 135, potassium 5.5, B1 57, creatinine 1.9, magnesium 1.8, troponin less than 0.012, proBNP 1650 EKG: Atrial fibrillation with rapid ventricular response, heart rate 114 IMAGING: Chest x-ray dated 10/17/2022 demonstrates severe mid thoracic vertebral compression deformity not clearly seen on previous exam, mild cardiomegaly and COPD, no definitive acute cardiopulmonary process. 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 VITALS: Temp 98.0, pulse 103, respirations 18, blood pressure 112/74, O2 saturation 97% on room air 10/19 Patient is seen today in follow-up. Heart rate this morning is running in the 80s, blood pressure 92/57 and 102/68. Pulse ox 94% on room air. Telemetry is atrial fibrillation controlled rate. Repeat blood work reveals BUN 44 creatinine 1.61. Hemoglobin 9.8. Sodium 131, potassium 4.4. Patient denies having any chest pain, shortness of breath. He does complain of back pain secondary to T7 fracture. 10/20 Patient is seen today in follow-up. He is scheduled for T5-T9 stabilization with T7 ORIF today with Dr. Truong. Because of planned surgery, eliquis is on hold. Telemetry is atrial fibrillation with controlled rate. Blood pressure 105/57. Repeat blood work reveals hemoglobin 7.1 sodium 134, potassium 4.2, BUN 46 and creatinine 1.88. EXAMINATION: GENERAL: Well-appearing, well-nourished and in no acute distress. NECK: Supple without JVD or thyromegaly. LUNGS: Breath sounds clear to auscultation bilaterally. Respiration equal and unlabored. No wheezes, rales or rhonchi. HEART: Irregular rate and rhythm without murmurs, rubs or gallops. S1 and S2 h eard. EXTREMITIES: Normal range of motion, no edema. No clubbing or cyanosis. Peripheral pulses intact and strong. IMPRESSION: 1. Atrial fibrillation with rapid ventricular response 2. Dehydration 3. Dizziness 4. T7 compression fracture PLAN: Continue current cardiac medications including increased dose of metoprolol succinate at 150 mg twice daily, eliquis on hold for surgical intervention Patient has controlled heart rate, chronic atrial fibrillation and is stable for surgical intervention. Thank you for the consult and allowing us to participate in the care of this patient. Objective - Vital Signs Vital signs: Vital Signs Temp 98.6 F 10/20/22 03:30 Pulse 96 10/20/22 03:30 Resp 16 10/20/22 03:30 BP 105/57 10/20/22 03:30 Pulse Ox 94 L 10/20/22 07:50 FiO2 Intake & Output 10/19/22 10/20/22 10/20/22 18:59 06:59 18:59 Intake Total 720 Output Total 550 300 Balance 170 -300 Intake: Oral 720 Output: Urine 550 300 Other: Voiding Method Indwelling Catheter Indwelling Catheter - Labs CBC & Chem 7: 10/20/22 08:20 10/20/22 08:20 Labs: Abnormal Lab Results - Last 24 Hours (Table) 10/19/22 10/19/22 10/19/22 Range/Units 11:23 16:35 19:53 POC Glucose (mg/dL) 228 H 314 H 242 H (70-110) mg/dL 10/20/22 Range/Units 05:54 POC Glucose (mg/dL) 125 H (70-110) mg/dL
[2022-10-20 11:22] LABS: Glucose,Whole Blood 122 mg/dL (70-110)
--- NOTE | 2022-10-20 12:03 | P.PN ---
Subjective Progress Note Date: 10/20/22 Patient is a 72-year-old male with an extensive damage including systolic CHF, A. fib on Eliquis, CAD status post stents, COPD, type II DM, hypertension, who presents to the emergency room with complaints of back pain. The patient reports that he has had persistent back pain over the past several months, rated a 8 out of 10, constant, worsened with movement, radiating to the front of the chest. He also reported feeling lightheaded earlier today, causing him to fall without experiencing head trauma. Patient also denying LE weakness.In the emergency room, laboratory evaluation was remarkable for UA consistent with UTI, leukocytosis 12.9, and creatinine 1.90 (up from 1.58 on 10/03). Thoracic and tamiko mbar spine CT in the emergency room revealed severe acute compression deformity of T7 with spinal canal stenosis and a mild paravertebral hematoma with neural foraminal stenosis. There was also vertebral compression collapse of the L2 subacute versus chronic. Of note, the patient was recently admitted to the hospital 2 weeks ago for similar complaints of back pain at which time he was noted to be in acute CHF exacerbation. The patient's home Lasix was increased from 40 mg daily to twice a day. EKG had revealed A. fib at 114 bpm. Chest x- ray revealed a compression fracture with mild cardiomegaly and COPD. 10/20 Eliquis has been held. Plans for surgery today with Dr. Truong for T7 burst fracture. Cleared by cardiology for surgery. He reports pain in his lower back, 9/10 in severity. CBC shows hemoglobin 9.1 with MCV of 111.3. BMP shows sodium 134, bicarb of 18, BUN of 46, creatinine of 1.88, glucose 109 and calcium is 7.7. Vitals Signs: BP 105/57, HR 96, RR 16, 94% on RA, T 98.6F. General: nontoxic, no distress, appears at stated age Derm: warm, dry Head: atraumatic, normocephalic, symmetric Eyes: EOMI, no lid lag, anicteric sclera Cardiovascular: S1S2 irregular, no murmur Lungs: CTA bilateral, no rhonchi, no rales , no accessory muscle use Ext: no gross muscle atrophy, no edema, no contractures Neuro: no focal neuro deficits Psych: Alert, oriented, appropriate affect Acute T7 burst fracture Atrial fibrillation with RVR, now rate controlled Acute kidney injury on chronic kidney disease, resolving Type 2 diabetes Chronic macrocytic anemia, stable Non-anion gap metabolic acidosis Hyponatremia Resolved: Hyperkalemia Based on my assessment of this patient, this patient meets a moderate complexity level of care. Patient has an acute diagnosis of T7 burst fracture complicated with AFib with RVR that poses a threat to life or bodily function. Acute T7 burst fracture: T5-T9 stabilization for T7 ORIF planned for 10/20. TLSO brace. Neurochecks. Fall precautions. Will need PT and OT after surgery. Suspected urinary tract infection: UCx negative, discontinue Rocephin. Atrial fibrillation with RVR: Now rate controlled. Metoprolol increased to 150 mg PO BID. Holding Eliquis for surgical procedure. Cardiology on board. Acute kidney injury on chronic kidney disease: Nephrology on board. Lasix discontinued. Continue Jacobs catheter. Type 2 diabetes: ISS. Accuchecks ACHS. Hypoglycemic precautions. Chronic macrocytic anemia: Hg downtrending. CBC pending this morning. Non-anion gap metabolic acidosis: Sodium bicarbonate added by Nephrology. Hyponatremia Resolved: Leukocytosis, Hyperkalemia I have reviewed the following oim consultant notes: Cardiology and Orthopedic Sx note reviewed. I have reviewed the results of the following tests: CBC and BMP reviewed as above. I have ordered the following tests: CBC and BMP ordered for tomorrow morning. I have discussed the care of this patient with the following independent historian: I have independently interpreted the following test below: I have discussed the management of this patient with the following physician: Objective - Vital Signs Vital signs: Vital Signs Temp 98.6 F 10/20/22 03:30 Pulse 96 10/20/22 03:30 Resp 16 10/20/22 03:30 BP 105/57 10/20/22 03:30 Pulse Ox 94 L 10/20/22 07:50 FiO2 Intake & Output 10/19/22 10/20/22 10/20/22 18:59 06:59 18:59 Intake Total 720 Output Total 550 300 Balance 170 -300 Intake: Oral 720 Output: Urine 550 300 Other: Voiding Method Indwelling Catheter Indwelling Catheter - Labs CBC & Chem 7: 10/20/22 08:20 10/20/22 08:20 Labs: Abnormal Lab Results - Last 24 Hours (Table) 10/19/22 10/19/22 10/19/22 Range/Units 07:29 07:29 11:23 RBC 2.74 L (4.30-5.90) m/uL Hgb 9.8 L (13.0-17.5) gm/dL Hct 31.0 L (39.0-53.0) % MCV 113.3 H (80.0-100.0) fL MCH 35.9 H (25.0-35.0) pg RDW 16.7 H (11.5-15.5) % Neutrophils # 8.1 H (1.3-7.7) k/uL Lymphocytes # 0.7 L (1.0-4.8) k/uL Macrocytosis Marked A Sodium 131 L (137-145) mmol/L Carbon Dioxide 16 L (22-30) mmol/L BUN 44 H (9-20) mg/dL Creatinine 1.61 H (0.66-1.25) mg/dL Glucose 108 H (74-99) mg/dL POC Glucose (mg/dL) 228 H (70-110) mg/dL Calcium 8.0 L (8.4-10.2) mg/dL 10/19/22 10/19/22 10/20/22 Range/Units 16:35 19:53 05:54 RBC (4.30-5.90) m/uL Hgb (13.0-17.5) gm/dL Hct (39.0-53.0) % MCV (80.0-100.0) fL MCH (25.0-35.0) pg RDW (11.5-15.5) % Neutrophils # (1.3-7.7) k/uL Lymphocytes # (1.0-4.8) k/uL Macrocytosis Sodium (137-145) mmol/L Carbon Dioxide (22-30) mmol/L BUN (9-20) mg/dL Creatinine (0.66-1.25) mg/dL Glucose (74-99) mg/dL POC Glucose (mg/dL) 314 H 242 H 125 H (70-110) mg/dL Calcium (8.4-10.2) mg/dL
[2022-10-20] MEDS ORDERED: MIDAZOLAM 2 MG/2 ML VIAL IVP ONE (12:27)
--- NOTE | 2022-10-20 12:35 | P.PN ---
Subjective Patient is seen for follow-up for acute kidney injury on top of chronic kidney disease. Patient was admitted to the hospital with complaints of back pain and history of fall. He was noted to have a thoracic vertebral fracture. Patient was also noted to be in A. fib with RVR. Blood pressure had been on the lower side. Patient was also noted to have significant urine retention and Jacobs catheter was placed. Serum creatinine slightly higher today at 1.8. Lasix has been discontinued. No significant complaints today. Objective - Vital Signs Vital signs: Vital Signs Temp 97.7 F 10/20/22 12:02 Pulse 105 H 10/20/22 12:02 Resp 16 10/20/22 12:02 BP 107/59 10/20/22 12:02 Pulse Ox 95 10/20/22 12:02 FiO2 Intake & Output 10/19/22 10/20/22 10/20/22 18:59 06:59 18:59 Intake Total 720 Output Total 550 300 200 Balance 170 -300 -200 Intake: Oral 720 Output: Urine 550 300 200 Other: Voiding Method Indwelling Catheter Indwelling Catheter Indwelling Catheter - Exam Patient is awake, comfortable, no acute distress Examination of the heart S1 and S2 Examination of the lungs bilateral breath sounds are heard Abdomen is soft nontender Examination of lower extremities shows no significant edema RESEARCH RECRUITER exam grossly intact - Labs CBC & Chem 7: 10/20/22 08:20 10/20/22 08:20 Labs: Abnormal Lab Results - Last 24 Hours (Table) 10/19/22 10/19/22 10/20/22 Range/Units 16:35 19:53 05:54 RBC (4.30-5.90) m/uL Hgb (13.0-17.5) gm/dL Hct (39.0-53.0) % MCV (80.0-100.0) fL MCH (25.0-35.0) pg RDW (11.5-15.5) % Lymphocytes # (1.0-4.8) k/uL Macrocytosis Sodium (137-145) mmol/L Carbon Dioxide (22-30) mmol/L BUN (9-20) mg/dL Creatinine (0.66-1.25) mg/dL Glucose (74-99) mg/dL POC Glucose (mg/dL) 314 H 242 H 125 H (70-110) mg/dL Calcium (8.4-10.2) mg/dL 10/20/22 10/20/22 10/20/22 Range/Units 08:20 08:20 11:21 RBC 2.46 L (4.30-5.90) m/uL Hgb 9.1 L (13.0-17.5) gm/dL Hct 27.3 L (39.0-53.0) % MCV 111.3 H (80.0-100.0) fL MCH 37.2 H (25.0-35.0) pg RDW 16.6 H (11.5-15.5) % Lymphocytes # 0.3 L (1.0-4.8) k/uL Macrocytosis Marked A Sodium 134 L (137-145) mmol/L Carbon Dioxide 18 L (22-30) mmol/L BUN 46 H (9-20) mg/dL Creatinine 1.88 H (0.66-1.25) mg/dL Glucose 109 H (74-99) mg/dL POC Glucose (mg/dL) 122 H (70-110) mg/dL Calcium 7.7 L (8.4-10.2) mg/dL Microbiology - Last 24 Hours (Table) 10/18/22 11:30 Urine Culture - Final Urine,Clean Catch Assessment and Plan Assessment: 1. Acute kidney injury associated with hemodynamic instability and hemodynamic ATN. Currently nonoliguric. Component of obstructive uropathy and urine retention, status post Jacobs catheter placement. Patient did have a Jacobs ca theter during his last admission on 10/02/2022 as well. Ultrasound on 10/02/2022 did not show any significant hydronephrosis. UA shows WBCs 157 trace protein. 2. A. fib with RVR maintained on Cardizem drip 3. Hyperkalemia associated with acute kidney injury and use of Aldactone, and urine retention. No active GI bleeding noted. 4. Mild non-gap metabolic acidosis associated with acute kidney injury 5. Acute thoracic vertebral fracture 6. CK D NKF stage IIIa with baseline creatinine around 1.3-1.5 mg/dL 7. Pyuria rule out UTI Plan: Add gentle IV hydration as serum creatinine is worse today. Continue oral sodium bicarb Continue with Jacobs catheter Continue with entresto, it is at lowest dose. Patient is maintained on high-dose of metoprolol. Heart rate remains high. Repeat labs in a.m.
[2022-10-20 12:52] LABS: Glucose,Whole Blood 109 mg/dL (70-110)
[2022-10-20] MEDS ORDERED: VASOPRESSIN 20 UNIT/ML 1 ML VIAL ONE (13:15)
[2022-10-20] MEDS ORDERED: ETOMIDATE 2 MG/ML 10 ML VIAL ONE (13:15)
[2022-10-20] MEDS ORDERED: TRANEXAMIC 1,000 MG/100ML-NACL PREMIX BAG ONE (13:15)
[2022-10-20] MEDS ORDERED: PHENYLEPHRINE-0.9% NACL SYG 1,000 MCG/10 ML SYRINGE ONE (13:15)
[2022-10-20] MEDS ORDERED: GLYCOPYRROLATE 0.2 MG/ML 2 ML VIAL ONE (13:15)
[2022-10-20] MEDS ORDERED: SUGAMMADEX SODIUM 200 MG/2 ML SDV IV ONE (13:15)
[2022-10-20] MEDS ORDERED: ROCURONIUM 10 MG/ML (5 ML VIAL) IV ONE (13:15)
[2022-10-20] MEDS ORDERED: NEOSTIGMINE 1 MG/ML 10 ML VIAL ONE (13:15)
[2022-10-20] MEDS ORDERED: LIDOCAINE 2% INJ 20 MG/ML (2 ML VIAL) ONE (13:15)
[2022-10-20] MEDS ORDERED: fentaNYL (PF) 50 MCG/ML 2 ML AMP ONE (13:15)
[2022-10-20] MEDS ORDERED: SODIUM CHLORIDE 0.9% 50 ML with ceFAZolin 2,000 MG IV ONE ×2 (13:20)
[2022-10-20] MEDS ORDERED: LACTATED RINGERS 1,000 ML IV ONE ×2 (13:20)
[2022-10-20] MEDS ORDERED: TRANEXAMIC 1,000 MG/100ML-NACL 1,000 MG in SALINE 1 100ML.BAG IVPB PRN (13:22)
--- NOTE | 2022-10-20 13:25 | XR ---
EXAMINATION TYPE: XR chest 1V portable DATE OF EXAM: 10/20/2022 COMPARISON: 10/17/2022 HISTORY: Line placement TECHNIQUE: Single frontal view of the chest is obtained. FINDINGS: There is no focal air space opacity, pleural effusion, or pneumothorax seen. Right-sided c entral line seen with tip at the level of the cavoatrial junction. A double lead pacemaker stable in position. Chronic interstitial pulmonary lung disease suspected. Pleural thickening and chronic rib d eformity suspected on the right. Underlying COPD. Subsegmental bilateral atelectasis. Atherosclerotic changes of the aorta. The heart is enlarged. Hypertrophic and degenerative changes of the spine. IMPRESSION: 1. Central line seen with the tip overlying the cavoatrial junction and no sizable pneumothorax. 2. Bibasilar scarring or atelectasis with chronic interstitial pulmonary fibrosis suspected. 3. Bilateral pleural-based thickening similar to prior exams.
--- NOTE | 2022-10-20 13:31 | P.PN ---
Progress Note - Text Progress Note Date: 10/20/22 Spine Surgery Clinical and Risk Review RYANNE Guevara is a 72 yo male presenting for evaluation of mid and low back pain. It was my pleasure to have seen and examined RYANNE Guevara . In our visit today we have had a chance to go over subjective complaints, physical examination findings and treatments including the natural course history without intervention and various interventional options. The patients imaging demonstrates T7 burst fracture with L2 compression fracture. On physical exam, RYANNE Guevara demonstrates TTP of the T7 and L2 region midline with difficulty with ambulation due to pain as well as some paresthesias in LE when he tries to move around. . I have explained to the patient that as their condition progresses it will cause further neurological deficits and eventual paralysis. Based on the patients imaging, physical exam, and the rapid progression and disabling nature of their symptoms, at this time I recommend surgery in the form or a: [Procedure]. I discussed the risk and benefits of this procedure at length with RYANNE Guevara The patient and guardian agreed to considered pursuing the procedure abovementioned. Prior to surgery, she should follow up with her PCP (Cardio, ID, IM etc) for clearance. Questions were invited and answered, and the patient wishes to procee d as outlined below. Currently, I am recommendin. T7 open treatment with fixation and kyphoplasty; possible L2 kyphoplasty 2. Follow up with PCP for surgical clearance 3. Review of surgical risks and benefits as well as an educational packet on the proposed surgical procedure. Risks: All surgical procedures come with inherent risks, including those related to positioning, anesthesia, intraoperative findings, and postoperative complications. It is important to understand that surgery does not come with any guarantee of a successful outcome as complications and adverse events are always possible. The patient was given a handout in office today discussing the surgical procedure and risks associated with the intervention, both of which were discussed with the patient. These risks include but are not limited to the following: * Experiencing same, different or even worse symptoms in back, neck, arms, or legs compared to before surgery. * Requiring further surgery or other forms of treatment presently or at some time in the future at same or other levels of the intended spine surgery. * On an extreme but fortunately relatively rare basis severe complication such as blindness, stroke, heart attack, temporary and/or permanent nerve injury, paralysis, coma, or may occur, sometimes without known explanation. * Surgical complications may include but are not limited to risk of infection, fluid accumulation in the surgical dissection site, including a seroma or hematoma, that requires additional surgery, wound drainage, bleeding, new numbness or weakness, vision changes/loss, spinal fluid leakage, non-healing and/or infected incision, headaches, difficulty or inability to swallow, hoarseness, hemopneumothorax, pneumothorax, impotence, retrograde ejaculation, vaginal dryness; injury to nerves, spinal cord, blood vessels, lymphatics or other vital organs (i.e., bowel injury, injury to the great vessels); heterotopic bone formation; complications related to the hardware such as screws, rods, cages including misplaced hardware, device failure, instrumentation at the wrong spine level, hardware fracture/breakage, or hardware loosening; vertebral failure of the spinal column above or below the newly placed hardware; retained surgical instrumentations or devices and the need for further surgery. * Medical risks of the planned spine surgery include but are not limited to generalized Infections to the whole body or local areas outside of the surgical site (sepsis), heart attack, bleeding, anaphylaxis, meningitis, seizure, epilepsy, hearing loss, burn blackburn, laceration of the head or other areas of the body, bruising, hypersensitivity of the skin, bladder over distension; allergic reaction; shoulder injury related to positioning; fat, blood and air clots to other areas of the body like heart, lungs, brain; failure of internal organs such as lungs, kidneys, liver and excessive bleeding. If blood transfusions are necessary, note that transfusions may cause intolerance reactions such as anaphylaxis or other complex reactions. * Despite best efforts, the results of spine surgery might not heal in terms of bone, soft tissues such as skin, fascia, ligaments, and joints. Additionally, in order to achieve best possible results, spine surgery may be carried out beyond the initially planned levels and involve decompression, fusion including insertion of hardware at levels other than the original intended area of surgical interest change some portions of the procedure in order to ensure the best possible outcomes. * With spine surgery and spinal fusion, there are different off label uses of instrumentation (devices, implants and hardware) as well as biological substances (bone morphogenic proteins, demineralized bone matrix) as well as using extra bone from allograft sources (i.e. cadaver bone) or autograft (iliac crest bone, ribs, or the spine itself). The patient has been given information about these practices and their inherent risks and benefits. The patient has had a chance to review all the listed information, has been given print outs detailing this information, and has had all his/her questions answered to their satisfaction. It was my pleasure to have seen and examined RYANNE Guevara . In our visit today we have had a chance to go over my understanding of our patient's current condition, the natural course history without intervention and various interv entional options. Questions were invited and answered, and the patient wishes to proceed as outlined above. I have seen and examined the patient for 25 minutes and we have spent more than 50% of the time in repeat and detailed counseling about the patient's condition, its natural course history with out and as much as can be predicted with surgery and re-review of various surgical treatment options. In conclusion,RYANNE Guevara and and guardian requested we proceed with the above suggested surgery and are willing to accept risks and limitations of the suggested surgery as nature of the disease process and our best attempts at treatment for the condition. Thank you again for allowing us to be part of your patient's care. Please don't hesitate to contact me if you have any further questions. Signed and authenticated by: Garret Jett [facility] [address], [address] [address]
[2022-10-20] MEDS ORDERED: MINERAL OIL 1 APPLIC/ML OIL MISCELLANE ONE (14:10)
[2022-10-20] MEDS ORDERED: IOPAMIDOL M200 10 ML VIAL MISCELLANE ONE (14:11)
[2022-10-20] MEDS ORDERED: HYDROcodone/APAP 5-325MG 1 EACH TAB PO PRN (15:45)
--- NOTE | 2022-10-20 15:55 | P.OP ---
Date of Procedure: 10/20/22 Preoperative Diagnosis: 1. T7 BURST FRACTURE AOA4 WITH B3 COMPONENT 2. L1 VCF 75% COLLAPSE 3. MID AND LOW BACK PAIN 4. DEBILITY RELATED TO FRACTURES Postoperative Diagnosis: 1. T7 BURST FRACTURE AOA4 WITH B3 COMPONENT 2. L1 VCF 75% COLLAPSE 3. MID AND LOW BACK PAIN 4. DEBILITY RELATED TO FRACTURES Procedure(s) Performed: 1. OPEN TREATMENT T7 FRACTURE 2. STABILIZATION T6-T8 3. L1 KYPHOPLASTY WITH BIOPSY 4. INSERTION OF SPINE CONTRERAS DEVICE T7 USE OF IONM Implants: -SPINE CONTRERAS SMALL X1 -EVEREST SCREW AND ROBERTA SYSTEM Anesthesia: GETA Surgeon: Garret Truong Art Objects Supervisor #1: Rafita Cui (ANU Yañez Was present and assisted with all aspects of the case from positioning to dressing placement) Estimated Blood Loss (ml): 100 IV fluids (ml): 1,000 Urine output (ml): 400 Pathology: other (T7 AND L1 VERTEBRAL BODIES) Condition: stable Disposition: PACU Indications for Procedure: RYANNE Guevara is a 72 yo male presenting for evaluation of mid and low back pain. It was my pleasure to have seen and examined RYANNE Guevara . In our visit today we have had a chance to go over subjective complaints, physical examination findings and treatments including the natural course history without intervention and various interventional options. The patients imaging demonstrates T7 burst fracture with L2 compression fracture. On physical exam, RYANNE Guevara demonstrates TTP of the T7 and L2 region midline with difficulty with ambulation due to pain as well as some paresthesias in LE when he tries to move around. . I have explained to the patient that as their condition progresses it will cause further neurological deficits and eventual paralysis. Based on the patients imaging, physical exam, and the rapid progression and disabling nature of their symptoms, at this time I recommend surgery in the form or a: [Procedure]. I discussed the risk and benefits of this procedure at length with RYANNE Guevara The patient and guardian agreed to considered pursuing the procedure abovementioned. Prior to surgery, she should follow up with her PCP (Cardio, ID, IM etc) for clearance. Questions were invited and answered, and the patient wishes to proceed as outlined below. Currently, I am recommendin. T7 open treatment with fixation and kyphoplasty; possible L2 kyphoplasty Description of Procedure: T7 ORIF (T6-8); T7 SPINE CONTRERAS; L1 KYPHO The patient was seen and examined in the preoperative area. All preoperative protocols were followed. Informed consent was obtained, risks and benefits of the procedure were discussed at length. Risks including bleeding infection damage to the surrounding tissue and risk of reoperation were discussed with the patient. Risk of anesthesia up to and including was discussed with the patient. These are outlined in the risk review. They were willing to accept these risks and all of the risks of surgery. The patient was given a weight- based dose of antibiotics in the form of 2 g Ancef. The patient was seen and evaluated by the anesthesia team who deemed them fit for surgery. The site was marked, the patient was willing to proceed with the procedure. The patient was transferred to the operative suite by the Department of anesthesia. They were then drifted off to sleep by the department anesthesia and GETA was performed. The patient tolerated this well. [Jacobs catheter was placed by nursing staff, atraumatically]. Once confirmation of lines and ventilation the patient was transferred to a [prone Barrie table very carefully]. All bony prominences including wrists, elbows, axilla, chest, hips, and thighs, and feet were padded very well. Special attention was paid to the genitalia and these were padded accordingly. SCDs were placed on bilateral lower extremities and were connected. Arms were well padded and placed [on arm boards up and out in the 90/90 position]. Once in position, again we confirmed good ventilation capabilities and that lines were running appropriately. The patient's thoracolumbar spine was then exposed. 1010s were placed outlining the incision site. Standard alcohol was used to clean the incision site and allowed to dry. C-arm was used to needle localize T12 and then biomark the patient and confirm level for incision which was marked with a skin marker. Operative briefing was performed with all teams and everyone in agreement to proceed. The patient was then prepped and draped in a normal sterile fashion. Timeout was then performed and all parties were in agreement with the procedure to be performed. Needle localization was done to identify T7. Under biplanar fluoroscopy we then placed Jamshidis into T6 bilaterally followed by T8 bilaterally. We confirmed as being good position and wires were placed in the void. Then over the wires screws were placed into T6 and T8 bilaterally under lateral fluoroscopic guidance. Once in good position the wires were removed. We then accessed the T7 vertebral body using a Jamshidi and biplanar fluoroscopy. Biopsy was performed of the T7 vertebral body with biopsy needle. Once this was accessed reduction of fractures performed using a kyphoplasty balloon followed by a spine contreras. The steps of spine contreras were followed as outlined. Once this binder was in good position cement was placed into T7 vertebral body. This filled the spine contreras as well as the T7 vertebral body. Cement was then placed through fenestrated screws under biplane and pulse lateral fluoroscopy into T6 and T8. In this fashion screws were cemented in position. A roberta was then selected and bent accordingly it was then placed subfascially into the tulip heads of all screws. Set screws were then placed and final tightened into position. Tablet broken off the screws. AP and lateral confirmed good placement of hardware with good reduction of fracture. Then turned our attention to L1 with a kyphoplasty and biopsy were performed. Jamshidi was used and biplanar fluoroscopy to access the L1 vertebral body. Biopsy was performed. Reaming created space curetting the area and reducing the fracture. Balloon was placed and was inflated which allowed for further reduction of the fracture. This was then removed and cement placed in this area. There is good cement fill and fit. There are no other issues. Jamshidi was removed. Final imaging confirmed good placement of all hardware good reduction of fracture. The wounds were then copiously irrigated with normal sterile saline. The wounds were closed with 0 Vicryl in deep fascia 2-0 Vicryl superficial subcu and aime in skin. Wound edges approximated very well. Wound was then cleaned and dressed sterilely with an operative foam dressing. The patient was transferred back to their hospital bed atraumatically. Patient was then awakened and extubated by the department of anesthesia having tolerated the procedure very well with no complications. Drain continued to hold suction. They were transferred to the postoperative care unit in stable condition.
--- NOTE | 2022-10-20 15:59 | XR ---
Intraoperative/procedural fluoroscopic services were provided for posterior lumbar fusion. Total fluo roscopy time is 4.0 minutes with a total of 8 submitted images to PACS. Total DAP 76.598 Gycm2. Plea se see the operative note for further details.
[2022-10-20] MEDS ORDERED: HYDROmorphone 0.5 MG/0.5 ML SYRINGE IVP ONE (16:20)
[2022-10-20 17:21] LABS: Glucose,Whole Blood 137 mg/dL (70-110)
[2022-10-20] MEDS: HYDROcodone/APAP 7.5-325MG 1 EACH TAB PO PRN ×2 (17:45→23:17)
[2022-10-20] MEDS: CYCLOBENZAPRINE 5 MG TAB PO PRN (17:45)
[2022-10-20 20:58] LABS: Glucose,Whole Blood 141 mg/dL (70-110)
[2022-10-20] MEDS: risperiDONE 0.5 MG TAB PO SCH (21:18)
[2022-10-20] MEDS: ATORVASTATIN 40 MG TAB PO SCH (21:18)
[2022-10-20] MEDS: SERTRALINE 50 MG TAB PO SCH (21:18)
[2022-10-20] MEDS: TAMSULOSIN 0.4 MG CAP.ER.24H PO SCH (21:18)
[2022-10-21] MEDS: CYCLOBENZAPRINE 5 MG TAB PO PRN ×2 (03:39→20:24)
[2022-10-21] MEDS: SODIUM CHLORIDE 0.9% 1,000 ML IV SCH ×2 (03:42→20:29)
[2022-10-21 06:16] LABS: Glucose,Whole Blood 129 mg/dL (70-110)
[2022-10-21] MEDS: HYDROcodone/APAP 7.5-325MG 1 EACH TAB PO PRN ×2 (06:20→12:14)
[2022-10-21] MEDS: INSULIN ASPART (NovoLOG) 100 UNIT/ML VIAL SQ SCH ×4 (06:25→20:29)
--- NOTE | 2022-10-21 09:15 | P.PN ---
Subjective Progress Note Date: 10/21/22 Principal diagnosis: Back pain Spinal fracture Patient seen and examined at bedside this morning. Patient is resting comfortably in bed. Patient does have complaint of mid back pain that is exacerbated with activity. Patient reports his pain is managed on current regimen. Youssef cath remains patent, this may be removed when pateint is up and about. VSS. No acute events overnight. Objective - Vital Signs Vital signs: Vital Signs Temp 98 F 10/21/22 08:00 Pulse 99 10/21/22 08:00 Resp 18 10/21/22 08:00 BP 90/55 10/21/22 08:00 Pulse Ox 92 L 10/21/22 08:00 FiO2 Intake & Output 10/20/22 10/21/22 10/21/22 18:59 06:59 18:59 Intake Total 1890 118 Output Total 925 400 Balance 965 -400 118 Intake: IV 1650 Oral 240 118 Output: Urine 825 400 Estimated Blood Loss 100 Other: Voiding Method Indwelling Catheter Indwelling Catheter Indwelling Catheter - Exam Physical Examination General: The patient is awake and alert, in no acute distress Skin: Skin is warm and dry with no obvious rashes or lesions. Surgical incision to the thoracic region, dressing is clean dry and intact. Eye: Pupils are equal, round and reactive to light, extra-ocular movements are intact; there is normal conjunctiva bilaterally. Neck: The neck is supple, there is no tenderness and ROM intact. Cardiovascular: There is a regular rate and rhythm. No murmur, rub or gallop is appreciated. Respiratory: Lungs are clear to auscultation, respirations are non-labored, breath sounds are equal. Gastrointestinal: Soft, non-distended, non-tender abdomen. Back: There is no tenderness to palpation in the midline, paralumbar, parathoracic or buttocks region. There is no obvious deformity . Musculoskeletal: ROM limited secondary to pain and stiffness from surgical procedure. Muscle strength in all major muscle groups of bilateral upper extremities 5/5, bilateral lower extremities 4+/5. Neurological: CN 2-12 intact. There are no obvious motor or sensory deficits. Movement and coordination equal and intact. Sensory exam to light touch intact C5-T1 and intact from L2-S1. Reflexes 2/4 in bilateral upper and lower extremities. Negative Hoffmans, babinski, and clonus signs. Psychiatric: Cooperative, appropriate mood & affect, normal judgment. - Labs CBC & Chem 7: 10/20/22 08:20 10/20/22 08:20 Labs: Abnormal Lab Results - Last 24 Hours (Table) 10/20/22 10/20/22 10/20/22 Range/Units 08:20 08:20 11:21 RBC 2.46 L (4.30-5.90) m/uL Hgb 9.1 L (13.0-17.5) gm/dL Hct 27.3 L (39.0-53.0) % MCV 111.3 H (80.0-100.0) fL MCH 37.2 H (25.0-35.0) pg RDW 16.6 H (11.5-15.5) % Lymphocytes # 0.3 L (1.0-4.8) k/uL Macrocytosis Marked A Sodium 134 L (137-145) mmol/L Carbon Dioxide 18 L (22-30) mmol/L BUN 46 H (9-20) mg/dL Creatinine 1.88 H (0.66-1.25) mg/dL Glucose 109 H (74-99) mg/dL POC Glucose (mg/dL) 122 H (70-110) mg/dL Calcium 7.7 L (8.4-10.2) mg/dL 10/20/22 10/20/22 10/21/22 Range/Units 17:09 20:57 06:15 RBC (4.30-5.90) m/uL Hgb (13.0-17.5) gm/dL Hct (39.0-53.0) % MCV (80.0-100.0) fL MCH (25.0-35.0) pg RDW (11.5-15.5) % Lymphocytes # (1.0-4.8) k/uL Macrocytosis Sodium (137-145) mmol/L Carbon Dioxide (22-30) mmol/L BUN (9-20) mg/dL Creatinine (0.66-1.25) mg/dL Glucose (74-99) mg/dL POC Glucose (mg/dL) 137 H 141 H 129 H (70-110) mg/dL Calcium (8.4-10.2) mg/dL Microbiology - Last 24 Hours (Table) 10/18/22 11:30 Urine Culture - Final Urine,Clean Catch Assessment and Plan Assessment: Postop day 1: T5-T9 stabilization with T7 ORIF 1. Fall with trauma 2. T7 BURST fracture with posterior propogation AO Type A4 with a B3 component 3. Mechanical back pain 4. Complex medical comorbidities Plan: -Appreciate network security consultant and team management. -Activity: Ambulate QID, OOB all meals, up and about, limit lifting bending twisting to less than 5 lbs. Use walker or cane if needed for stability. -Daily PT/OT, increase ambulation strength and balance. -TLSO Brace when up and about, not needed in bed or chair -Pain control: Adequate at this time -Meds: reviewed -GI ppx: senna, Miralax -DC youssef when up and about, bedside commode if needed -DVT PPX: Per medicine -Hygiene: Shower today. Maintain dressing clean and dry. Meticulous cleaning after BMs away from the incision site -Encourage IS 10x/hr -Dispo: Patient is cleared from orthopedic standpoint for discharge, patient will follow up in office in 2 weeks. No further recommendations. *I reviewed and discussed this case with my attending Dr. Truong, whom has reviewed this chart and films and is in agreement with assessment and plan of care as outlined above. I have personally seen and examined the patient, performed the documentation and the assessment and plan as written. Number of minutes spent on the visit: 20m.
[2022-10-21 09:23] LABS: ALT 44 U/L (4-49); AST 50 U/L (17-59); African American GFR (CKD) 41 (>60 ml/min/1.73 sqM); Albumin 2.4 g/dL (3.5-5.0); Alkaline Phosphatase 74 U/L (38-126); Anion Gap 11 mmol/L; Blood Urea Nitrogen 45 mg/dL (9-20); Calcium 7.3 mg/dL (8.4-10.2); Carbon Dioxide 14 mmol/L (22-30); Chloride 106 mmol/L (98-107); Glucose 179 mg/dL (74-99); Non-African American GFR(CKD) 36 (>60 ml/min/1.73 sqM); Potassium 4.6 mmol/L (3.5-5.1); Sodium 131 mmol/L (137-145); Total Bilirubin 0.4 mg/dL (0.2-1.3); Total Protein 6.2 g/dL (6.3-8.2)
[2022-10-21 09:29] LABS: Anisocytosis Slight; Basophils % (A) 0 %; Eosinophils # (A) 0.1 k/uL (0-0.7); Eosinophils % (A) 1 %; HCT 26.7 % (39.0-53.0); HGB 8.7 gm/dL (13.0-17.5); Hypochromasia Marked; Lymphocytes # (A) 0.3 k/uL (1.0-4.8); Lymphocytes % (A) 4 %; MCH 37.1 pg (25.0-35.0); MCHC 32.4 g/dL (31.0-37.0); MCV 114.4 fL (80.0-100.0); Mean Platelet Volume 7.8; Monocytes # (A) 0.6 k/uL (0-1.0); Monocytes % (A) 8 %; Neutrophils # (A) 6.5 k/uL (1.3-7.7); Neutrophils % (A) 85 %; Platelet Count 128 k/uL (150-450); Poikilocytosis Slight; RBC 2.33 m/uL (4.30-5.90); RDW 16.6 % (11.5-15.5); WBC 7.6 k/uL (3.8-10.6)
[2022-10-21 09:36] LABS: Macrocytosis Marked
[2022-10-21] MEDS: CYANOCOBALAMIN 500 MCG TAB PO SCH (10:10)
[2022-10-21] MEDS: LORATADINE 10 MG TAB PO SCH (10:10)
[2022-10-21] MEDS: FERROUS SULFATE 325 MG TAB PO SCH (10:10)
[2022-10-21] MEDS: MULTIVITAMINS, THERA 1 EACH TAB PO SCH (10:11)
[2022-10-21] MEDS: METOPROLOL SUCCINATE (ER) 50 MG TAB.ER.24H PO SCH ×2 (10:11→20:23)
[2022-10-21] MEDS: SODIUM BICARBONATE TAB 650 MG TAB PO SCH ×2 (10:11→20:24)
[2022-10-21] MEDS: THIAMINE 100 MG TAB PO SCH (10:11)
[2022-10-21] MEDS: AMIODARONE 200 MG TAB PO SCH (10:11)
[2022-10-21] MEDS: allopurinoL 100 MG TAB PO SCH (10:11)
[2022-10-21] MEDS: SACUBITRIL/VALSARTAN 24 MG-26 MG TABLET PO SCH (10:14)
--- NOTE | 2022-10-21 10:43 | P.PN ---
Subjective Progress Note Date: 10/21/22 The patient was interviewed and examined. HPI: Patient is a pleasant 72-year-old male who presented to the hospital yesterday after a fall and dizziness. Patient states that he had been going to dinner, and as he attempted to get the chair, he reports that he got significantly dizzy, and fell. After presentation to the emergency department, it was determined the patient had sustained a compression fracture of his T7 vertebrae. Due to this the patient's anticoagulation was discontinued. Patient demonstrated a mild elevation in white blood cell count of 12.9, patient also demonstrated possible dehydration with a sodium of 135, potassium of 5.5, B1 57, creatinine 1.9. His EKG upon arrival to the emergency department demonstrated atrial fibrillation with rapid ventricular response, with a heart rate of 114. The patient is well-known to our service, and has a past cardiac history that includes atrial fibrillation, coronary artery disease with stent placement, diabetes, hypertension, hyperlipidemia, and gout. REVIEW OF LABS, ECG & MEDICAL DATA: LABS: White count 12.9, hemoglobin 11.2, platelets 244, sodium 135, potassium 5.5, B1 57, creatinine 1.9, magnesium 1.8, troponin less than 0.012, proBNP 1650 EKG: Atrial fibrillation with rapid ventricular response, heart rate 114 IMAGING: Chest x-ray dated 10/17/2022 demonstrates severe mid thoracic vertebral compression deformity not clearly seen on previous exam, mild cardiomegaly and COPD, no definitive acute cardiopulmonary process. 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 VITALS: Temp 98.0, pulse 103, respirations 18, blood pressure 112/74, O2 saturation 97% on room air 10/19 Patient is seen today in follow-up. Heart rate this morning is running in the 80s, blood pressure 92/57 and 102/68. Pulse ox 94% on room air. Telemetry is atrial fibrillation controlled rate. Repeat blood work reveals BUN 44 creatinine 1.61. Hemoglobin 9.8. Sodium 131, potassium 4.4. Patient denies having any chest pain, shortness of breath. He does complain of back pain secondary to T7 fracture. 10/20 Patient is seen today in follow-up. He is scheduled for T5-T9 stabilization with T7 ORIF today with Dr. Truong. Because of planned surgery, eliquis is on hold. Telemetry is atrial fibrillation with controlled rate. Blood pressure 105/57. Repeat blood work reveals hemoglobin 7.1 sodium 134, potassium 4.2, BUN 46 and creatinine 1.88. 10/21 Patient remains in atrial fibrillation in the 90s, blood pressure 90/55, pulse ox 92% on room air, afebrile. Yesterday, patient underwent spinal surgery. Patient states he does have discomfort in his back today. Repeat blood work reveals hemoglobin of 8.7, BUN 45 creatinine 1.83. Eliquis has been on hold due to the surgery. EXAMINATION: GENERAL: Well-appearing, well-nourished and in no acute distress. NECK: Supple without JVD or thyromegaly. LUNGS: Breath sounds clear to auscultation bilaterally. Respiration equal and unlabored. No wheezes, rales or rhonchi. HEART: Irregular rate and rhythm without murmurs, rubs or gallops. S1 and S2 heard. EXTREMITIES: Normal range of motion, no edema. No clubbing or cyanosis. Peripheral pulses intact and strong. IMPRESSION: 1. Atrial fibrillation with rapid ventricular response 2. Dehydration 3. Dizziness 4. T7 compression fracture PLAN: Continue current cardiac medications including increased dose of metoprolol succinate at 150 mg twice daily, eliquis on hold for surgical intervention. We will ask orthopedics if we can resume eliquis for tomorrow Patient has controlled heart rate, chronic atrial fibrillation and is hemodynamically stable. Thank you for the consult and allowing us to participate in the care of this patient. Objective - Vital Signs Vital signs: Vital Signs Temp 98 F 10/21/22 08:00 Pulse 99 10/21/22 08:00 Resp 18 10/21/22 08:00 BP 90/55 10/21/22 08:00 Pulse Ox 92 L 10/21/22 08:00 FiO2 Intake & Output 10/20/22 10/21/22 10/21/22 18:59 06:59 18:59 Intake Total 1890 118 Output Total 925 400 Balance 965 -400 118 Intake: IV 1650 Oral 240 118 Output: Urine 825 400 Estimated Blood Loss 100 Other: Voiding Method Indwelling Catheter Indwelling Catheter - Labs CBC & Chem 7: 10/21/22 08:25 10/21/22 08:25 Labs: Abnormal Lab Results - Last 24 Hours (Table) 10/20/22 10/20/22 10/20/22 Range/Units 08:20 08:20 11:21 RBC 2.46 L (4.30-5.90) m/uL Hgb 9.1 L (13.0-17.5) gm/dL Hct 27.3 L (39.0-53.0) % MCV 111.3 H (80.0-100.0) fL MCH 37.2 H (25.0-35.0) pg RDW 16.6 H (11.5-15.5) % Lymphocytes # 0.3 L (1.0-4.8) k/uL Macrocytosis Marked A Sodium 134 L (137-145) mmol/L Carbon Dioxide 18 L (22-30) mmol/L BUN 46 H (9-20) mg/dL Creatinine 1.88 H (0.66-1.25) mg/dL Glucose 109 H (74-99) mg/dL POC Glucose (mg/dL) 122 H (70-110) mg/dL Calcium 7.7 L (8.4-10.2) mg/dL 10/20/22 10/20/22 10/21/22 Range/Units 17:09 20:57 06:15 RBC (4.30-5.90) m/uL Hgb (13.0-17.5) gm/dL Hct (39.0-53.0) % MCV (80.0-100.0) fL MCH (25.0-35.0) pg RDW (11.5-15.5) % Lymphocytes # (1.0-4.8) k/uL Macrocytosis Sodium (137-145) mmol/L Carbon Dioxide (22-30) mmol/L BUN (9-20) mg/dL Creatinine (0.66-1.25) mg/dL Glucose (74-99) mg/dL POC Glucose (mg/dL) 137 H 141 H 129 H (70-110) mg/dL Calcium (8.4-10.2) mg/dL Microbiology - Last 24 Hours (Table) 10/18/22 11:30 Urine Culture - Final Urine,Clean Catch
[2022-10-21] MEDS ORDERED: MIDODRINE 5 MG TAB PO ONE (10:53)
[2022-10-21 11:42] LABS: Glucose,Whole Blood 206 mg/dL (70-110)
--- NOTE | 2022-10-21 13:05 | P.PN ---
Subjective Progress Note Date: 10/21/22 Patient is a 72-year-old male with an extensive damage including systolic CHF, A. fib on Eliquis, CAD status post stents, COPD, type II DM, hypertension, who presents to the emergency room with complaints of back pain. The patient reports that he has had persistent back pain over the past several months, rated a 8 out of 10, constant, worsened with movement, radiating to the front of the chest. He also reported feeling lightheaded earlier today, causing him to fall without experiencing head trauma. Patient also denying LE weakness.In the emergency room, laboratory evaluation was remarkable for UA consistent with UTI, leukocytosis 12.9, and creatinine 1.90 (up from 1.58 on 10/03). Thoracic and tamiko mbar spine CT in the emergency room revealed severe acute compression deformity of T7 with spinal canal stenosis and a mild paravertebral hematoma with neural foraminal stenosis. There was also vertebral compression collapse of the L2 subacute versus chronic. Of note, the patient was recently admitted to the hospital 2 weeks ago for similar complaints of back pain at which time he was noted to be in acute CHF exacerbation. The patient's home Lasix was increased from 40 mg daily to twice a day. EKG had revealed A. fib at 114 bpm. Chest x- ray revealed a compression fracture with mild cardiomegaly and COPD. 10/20 Eliquis has been held. Plans for surgery today with Dr. Truong for T7 burst fracture. Cleared by cardiology for surgery. He reports pain in his lower back, 9/10 in severity. CBC shows hemoglobin 9.1 with MCV of 111.3. BMP shows sodium 134, bicarb of 18, BUN of 46, creatinine of 1.88, glucose 109 and calcium is 7.7. 10/21 Patient was seen and examined. Underwent ORIF T7, stabilization of T6-8, L1 kyphoplasty on 10/20. He reports soreness in his lower back. CBC shows Hg 8.7 with MCV 114.4 and plt count of 128. BMP shows Na 131, bicarb 14, BUN 45, Cr 1.83, glucose 179, Ca 7.3 and albumin 2.4. Vitals Signs: BP 105/57, HR 96, RR 16, 94% on RA, T 98.6F. General: nontoxic, no distress, appears at stated age Derm: warm, dry Head: atraumatic, normocephalic, symmetric Eyes: EOMI, no lid lag, anicteric sclera Cardiovascular: S1S2 irregular, no murmur Lungs: CTA bilateral, no rhonchi, no rales , no accessory muscle use Ext: no gross muscle atrophy, no edema, no contractures Neuro: no focal neuro deficits Psych: Alert, oriented, appropriate affect Acute T7 burst fracture Atrial fibrillation with RVR, now rate controlled Acute kidney injury on chronic kidney disease, resolving Type 2 diabetes Chronic macrocytic anemia, stable Non-anion gap metabolic acidosis Hyponatremia Resolved: Hyperkalemia Based on my assessment of this patient, this patient meets a moderate complexity level of care. Patient has an acute diagnosis of T7 burst fracture complicated with AFib with RVR that poses a threat to life or bodily function. Acute T7 burst fracture: T5-T9 stabilization for T7 ORIF planned for 10/20. TLSO brace. Neurochecks. Fall precautions. PT and OT consulted. Atrial fibrillation with RVR: Now rate controlled. Metoprolol increased to 150 mg PO BID. Resume Eliquis when OK with [facility] (likely tomorrow). Cardiology on board. Acute kidney injury on chronic kidney disease: Nephrology on board. Lasix discontinued. Continue Jacobs catheter. Type 2 diabetes: ISS. Accuchecks ACHS. Hypoglycemic precautions. Chronic macrocytic anemia: Hg downtrending. Transfuse if Hg < 7. Non-anion gap metabolic acidosis: Sodium bicarbonate added by Nephrology. Hyponatremia Resolved: Leukocytosis, Hyperkalemia I have reviewed the following aws consultant notes: Cardiology and Orthopedic Sx note reviewed. I have reviewed the results of the following tests: CBC and BMP reviewed as above. I have ordered the following tests: CBC and BMP ordered for tomorrow morning. I have discussed the care of this patient with the following independent historian: I have independently interpreted the following test below: I have discussed the management of this patient with the following physician: Objective - Vital Signs Vital signs: Vital Signs Temp 97.8 F 10/21/22 12:00 Pulse 102 H 10/21/22 12:00 Resp 16 10/21/22 12:00 BP 89/56 10/21/22 12:00 Pulse Ox 98 10/21/22 12:00 FiO2 Intake & Output 10/20/22 10/21/22 10/21/22 18:59 06:59 18:59 Intake Total 1890 118 Output Total 925 400 Balance 965 -400 118 Intake: IV 1650 Oral 240 118 Output: Urine 825 400 Estimated Blood Loss 100 Other: Voiding Method Indwelling Catheter Indwelling Catheter Indwelling Catheter - Labs CBC & Chem 7: 10/21/22 08:25 10/21/22 08:25 Labs: Abnormal Lab Results - Last 24 Hours (Table) 10/20/22 10/20/22 10/21/22 Range/Units 17:09 20:57 06:15 RBC (4.30-5.90) m/uL Hgb (13.0-17.5) gm/dL Hct (39.0-53.0) % MCV (80.0-100.0) fL MCH (25.0-35.0) pg RDW (11.5-15.5) % Plt Count (150-450) k/uL Lymphocytes # (1.0-4.8) k/uL Macrocytosis Sodium (137-145) mmol/L Carbon Dioxide (22-30) mmol/L BUN (9-20) mg/dL Creatinine (0.66-1.25) mg/dL Glucose (74-99) mg/dL POC Glucose (mg/dL) 137 H 141 H 129 H (70-110) mg/dL Calcium (8.4-10.2) mg/dL Total Protein (6.3-8.2) g/dL Albumin (3.5-5.0) g/dL 10/21/22 10/21/22 10/21/22 Range/Units 08:25 08:25 11:39 RBC 2.33 L (4.30-5.90) m/uL Hgb 8.7 L (13.0-17.5) gm/dL Hct 26.7 L (39.0-53.0) % MCV 114.4 H (80.0-100.0) fL MCH 37.1 H (25.0-35.0) pg RDW 16.6 H (11.5-15.5) % Plt Count 128 L (150-450) k/uL Lymphocytes # 0.3 L (1.0-4.8) k/uL Macrocytosis Marked A Sodium 131 L (137-145) mmol/L Carbon Dioxide 14 L (22-30) mmol/L BUN 45 H (9-20) mg/dL Creatinine 1.83 H (0.66-1.25) mg/dL Glucose 179 H (74-99) mg/dL POC Glucose (mg/dL) 206 H (70-110) mg/dL Calcium 7.3 L (8.4-10.2) mg/dL Total Protein 6.2 L (6.3-8.2) g/dL Albumin 2.4 L (3.5-5.0) g/dL Microbiology - Last 24 Hours (Table) 10/18/22 11:30 Urine Culture - Final Urine,Clean Catch
--- NOTE | 2022-10-21 13:22 | XR ---
EXAMINATION TYPE: XR chest 1V portable DATE OF EXAM: 10/21/2022 COMPARISON: 10/20/2022 HISTORY: SOB TECHNIQUE: Single frontal view of the chest is obtained. FINDINGS: Heart is enlarged. Cardiac device and postsurgical changes of the vertebral column. Right- sided central line stable. There is pleural-based thickening and coarsened interstitium with small right effusion. AC joint arth ropathy. IMPRESSION: 1. Cardiomegaly with right lower lobe infiltrate and small effusion. Coarsened interstitium could be on the basis of chronic interstitial lung disease and is stable from prior exam. Correlate for histor y of pulmonary fibrosis
--- NOTE | 2022-10-21 13:31 | P.PN ---
Subjective Patient is seen for follow-up for acute kidney injury on top of chronic kidney disease. Patient was admitted to the hospital with complaints of back pain and history of fall. He was noted to have a thoracic vertebral fracture. Patient was also noted to be in A. fib with RVR. Blood pressure had been on the lower side. Patient was also noted to have significant urine retention and Jacobs catheter was placed. Serum creatinine slightly higher and staying at about 1.8 Lasix has been discontinued. Started IV fluids yesterday. Urine output at 1.2 L for 24 hours. No significant complaints today. Objective - Vital Signs Vital signs: Vital Signs Temp 97.8 F 10/21/22 12:00 Pulse 102 H 10/21/22 12:00 Resp 16 10/21/22 12:00 BP 89/56 10/21/22 12:00 Pulse Ox 98 10/21/22 12:00 FiO2 Intake & Output 10/20/22 10/21/22 10/21/22 18:59 06:59 18:59 Intake Total 1890 118 Output Total 925 400 Balance 965 -400 118 Intake: IV 1650 Oral 240 118 Output: Urine 825 400 Estimated Blood Loss 100 Other: Voiding Method Indwelling Catheter Indwelling Catheter Indwelling Catheter - Exam Patient is awake, comfortable, no acute distress Examination of the heart S1 and S2 Examination of the lungs bilateral breath sounds are heard Abdomen is soft nontender Examination of lower extremities shows no significant edema [employer] exam grossly intact - Labs CBC & Chem 7: 10/21/22 08:25 10/21/22 08:25 Labs: Abnormal Lab Results - Last 24 Hours (Table) 10/20/22 10/20/22 10/21/22 Range/Units 17:09 20:57 06:15 RBC (4.30-5.90) m/uL Hgb (13.0-17.5) gm/dL Hct (39.0-53.0) % MCV (80.0-100.0) fL MCH (25.0-35.0) pg RDW (11.5-15.5) % Plt Count (150-450) k/uL Lymphocytes # (1.0-4.8) k/uL Macrocytosis Sodium (137-145) mmol/L Carbon Dioxide (22-30) mmol/L BUN (9-20) mg/dL Creatinine (0.66-1.25) mg/dL Glucose (74-99) mg/dL POC Glucose (mg/dL) 137 H 141 H 129 H (70-110) mg/dL Calcium (8.4-10.2) mg/dL Total Protein (6.3-8.2) g/dL Albumin (3.5-5.0) g/dL 10/21/22 10/21/22 10/21/22 Range/Units 08:25 08:25 11:39 RBC 2.33 L (4.30-5.90) m/uL Hgb 8.7 L (13.0-17.5) gm/dL Hct 26.7 L (39.0-53.0) % MCV 114.4 H (80.0-100.0) fL MCH 37.1 H (25.0-35.0) pg RDW 16.6 H (11.5-15.5) % Plt Count 128 L (150-450) k/uL Lymphocytes # 0.3 L (1.0-4.8) k/uL Macrocytosis Marked A Sodium 131 L (137-145) mmol/L Carbon Dioxide 14 L (22-30) mmol/L BUN 45 H (9-20) mg/dL Creatinine 1.83 H (0.66-1.25) mg/dL Glucose 179 H (74-99) mg/dL POC Glucose (mg/dL) 206 H (70-110) mg/dL Calcium 7.3 L (8.4-10.2) mg/dL Total Protein 6.2 L (6.3-8.2) g/dL Albumin 2.4 L (3.5-5.0) g/dL Microbiology - Last 24 Hours (Table) 10/18/22 11:30 Urine Culture - Final Urine,Clean Catch Assessment and Plan Assessment: 1. Acute kidney injury associated with hemodynamic instability and hemodynamic ATN. Currently nonoliguric. Component of obstructive uropathy and urine retention, status post Jacobs catheter placement. Patient did have a Jacobs catheter during his last admission on 10/02/2022 as well. Ultrasound on 10/02/2022 did not show any significant hydronephrosis. UA shows WBCs 157 trace protein. 2. A. fib with RVR maintained on Cardizem drip 3. Hyperkalemia associated with acute kidney injury and use of Aldactone, and urine retention. No active GI bleeding noted. 4. Mild non-gap metabolic acidosis associated with acute kidney injury 5. Acute thoracic vertebral fracture 6. CK D NKF stage IIIa with baseline creatinine around 1.3-1.5 mg/dL 7. Pyuria with urine culture showing no growth. Plan: DC IV fluids as patient is hypervolemic today. Midodrine by mouth 1 as blood pressure was 87/60. Continue oral sodium bicarb Continue with Jacobs catheter Continue with entresto, it is at lowest dose. Patient is maintained on high-dose of metoprolol. Heart rate remains high. Consider increasing amiodarone to control heart rate and decrease metipranolol as blood pressure is significantly low. We will discuss with cardiology. Repeat labs in a.m.
[2022-10-21 16:33] LABS: Glucose,Whole Blood 198 mg/dL (70-110)
[2022-10-21 19:51] LABS: Glucose,Whole Blood 239 mg/dL (70-110)
[2022-10-21] MEDS: ATORVASTATIN 40 MG TAB PO SCH (20:23)
[2022-10-21] MEDS: SERTRALINE 50 MG TAB PO SCH (20:24)
[2022-10-21] MEDS: TAMSULOSIN 0.4 MG CAP.ER.24H PO SCH (20:24)
[2022-10-21] MEDS: risperiDONE 0.5 MG TAB PO SCH (20:24)
[2022-10-22] MEDS: HYDROcodone/APAP 7.5-325MG 1 EACH TAB PO PRN (05:37)
[2022-10-22 05:56] LABS: Glucose,Whole Blood 156 mg/dL (70-110)
[2022-10-22] MEDS: INSULIN ASPART (NovoLOG) 100 UNIT/ML VIAL SQ SCH ×4 (06:38→21:12)
[2022-10-22 08:36] LABS: Anisocytosis Slight; HGB 8.6 gm/dL (13.0-17.5); Hypochromasia Moderate; MCH 36.9 pg (25.0-35.0); MCHC 32.9 g/dL (31.0-37.0); MCV 112.2 fL (80.0-100.0); Mean Platelet Volume 7.6; Platelet Count 126 k/uL (150-450); Poikilocytosis Slight; RBC 2.32 m/uL (4.30-5.90); RDW 16.6 % (11.5-15.5); WBC 9.1 k/uL (3.8-10.6)
[2022-10-22 08:42] LABS: Macrocytosis Marked
[2022-10-22 08:50] LABS: African American GFR (CKD) 57 (>60 ml/min/1.73 sqM); Anion Gap 11 mmol/L; Blood Urea Nitrogen 40 mg/dL (9-20); Carbon Dioxide 16 mmol/L (22-30); Chloride 105 mmol/L (98-107); Glucose 156 mg/dL (74-99); Non-African American GFR(CKD) 49 (>60 ml/min/1.73 sqM); Potassium 4.1 mmol/L (3.5-5.1); Sodium 132 mmol/L (137-145)
[2022-10-22 08:51] LABS: Calcium 7.5 mg/dL (8.4-10.2)
[2022-10-22] MEDS: METOPROLOL SUCCINATE (ER) 50 MG TAB.ER.24H PO SCH ×2 (09:34→20:45)
[2022-10-22] MEDS: MULTIVITAMINS, THERA 1 EACH TAB PO SCH (09:34)
[2022-10-22] MEDS: THIAMINE 100 MG TAB PO SCH (09:34)
[2022-10-22] MEDS: AMIODARONE 200 MG TAB PO SCH (09:34)
[2022-10-22] MEDS: FERROUS SULFATE 325 MG TAB PO SCH (09:34)
[2022-10-22] MEDS: CYANOCOBALAMIN 500 MCG TAB PO SCH (09:35)
[2022-10-22] MEDS: LORATADINE 10 MG TAB PO SCH (09:35)
[2022-10-22] MEDS: allopurinoL 100 MG TAB PO SCH (09:35)
[2022-10-22] MEDS: SODIUM BICARBONATE TAB 650 MG TAB PO SCH ×2 (09:35→20:45)
[2022-10-22] MEDS: HYDROmorphone 2 MG TAB PO PRN (09:39)
--- NOTE | 2022-10-22 11:51 | P.PN ---
Subjective Progress Note Date: 10/22/22 The patient was interviewed and examined. HPI: Patient is a pleasant 72-year-old male who presented to the hospital yesterday after a fall and dizziness. Patient states that he had been going to dinner, and as he attempted to get the chair, he reports that he got significantly dizzy, and fell. After presentation to the emergency department, it was determined the patient had sustained a compression fracture of his T7 vertebrae. Due to this the patient's anticoagulation was discontinued. Patient demonstrated a mild elevation in white blood cell count of 12.9, patient also demonstrated possible dehydration with a sodium of 135, potassium of 5.5, B1 57, creatinine 1.9. His EKG upon arrival to the emergency department demonstrated atrial fibrillation with rapid ventricular response, with a heart rate of 114. The patient is well-known to our service, and has a past cardiac history that includes atrial fibrillation, coronary artery disease with stent placement, diabetes, hypertension, hyperlipidemia, and gout. REVIEW OF LABS, ECG & MEDICAL DATA: LABS: White count 12.9, hemoglobin 11.2, platelets 244, sodium 135, potassium 5.5, B1 57, creatinine 1.9, magnesium 1.8, troponin less than 0.012, proBNP 1650 EKG: Atrial fibrillation with rapid ventricular response, heart rate 114 IMAGING: Chest x-ray dated 10/17/2022 demonstrates severe mid thoracic vertebral compression deformity not clearly seen on previous exam, mild cardiomegaly and COPD, no definitive acute cardiopulmonary process. 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 VITALS: Temp 98.0, pulse 103, respirations 18, blood pressure 112/74, O2 saturation 97% on room air 10/19 Patient is seen today in follow-up. Heart rate this morning is running in the 80s, blood pressure 92/57 and 102/68. Pulse ox 94% on room air. Telemetry is atrial fibrillation controlled rate. Repeat blood work reveals BUN 44 creatinine 1.61. Hemoglobin 9.8. Sodium 131, potassium 4.4. Patient denies having any chest pain, shortness of breath. He does complain of back pain secondary to T7 fracture. 10/20 Patient is seen today in follow-up. He is scheduled for T5-T9 stabilization with T7 ORIF today with Dr. Truong. Because of planned surgery, eliquis is on hold. Telemetry is atrial fibrillation with controlled rate. Blood pressure 105/57. Repeat blood work reveals hemoglobin 7.1 sodium 134, potassium 4.2, BUN 46 and creatinine 1.88. 10/21 Patient remains in atrial fibrillation in the 90s, blood pressure 90/55, pulse ox 92% on room air, afebrile. Yesterday, patient underwent spinal surgery. Patient states he does have discomfort in his back today. Repeat blood work reveals hemoglobin of 8.7, BUN 45 creatinine 1.83. Eliquis has been on hold due to the surgery. 10/22 Yesterday, due to hypotension, Entresto was discontinued and blood pressures are improved this morning. On , heart rate 92-103. Discussed case with nephrology and will try to put Entresto back in this morning and monitor him closely to see if he is able to tolerate Entresto. No other medication changes made. We will recheck out to orthopedic spine to see if we can resume eliquis. EXAMINATION: GENERAL: Well-appearing, well-nourished and in no acute distress. NECK: Supple without JVD or thyromegaly. LUNGS: Breath sounds clear to auscultation bilaterally. Respiration equal and unlabored. No wheezes, rales or rhonchi. HEART: Irregular rate and rhythm without murmurs, rubs or gallops. S1 and S2 heard. EXTREMITIES: Normal range of motion, no edema. No clubbing or cyanosis. Peripheral pulses intact and strong. IMPRESSION: 1. Atrial fibrillation with rapid ventricular response 2. Dehydration 3. Dizziness 4. T7 compression fracture PLAN: Continue current cardiac medications including increased dose of metoprolol succinate at 150 mg twice daily, eliquis on hold for surgical intervention. We will ask orthopedics if we can resume eliquis. Resume Entresto and monitor blood pressure closely. Thank you for the consult and allowing us to participate in the care of this patient. Objective - Vital Signs Vital signs: Vital Signs Temp 98 F 10/22/22 08:00 Pulse 103 H 10/22/22 08:00 Resp 18 10/22/22 08:00 BP 116/77 10/22/22 08:00 Pulse Ox 96 10/22/22 08:00 FiO2 Intake & Output 10/21/22 10/22/22 10/22/22 18:59 06:59 18:59 Intake Total 354 160 120 Output Total 425 550 Balance -71 -390 120 Intake: IV 160 0.9 160 Oral 354 0 120 Output: Urine 425 550 Other: Voiding Method Indwelling Catheter Indwelling Catheter Indwelling Catheter # Bowel Movements 1 - Labs CBC & Chem 7: 10/22/22 08:16 10/22/22 08:16 Labs: Abnormal Lab Results - Last 24 Hours (Table) 10/21/22 10/21/22 10/21/22 Range/Units 11:39 16:31 19:39 RBC (4.30-5.90) m/uL Hgb (13.0-17.5) gm/dL Hct (39.0-53.0) % MCV (80.0-100.0) fL MCH (25.0-35.0) pg RDW (11.5-15.5) % Plt Count (150-450) k/uL Macrocytosis Sodium (137-145) mmol/L Carbon Dioxide (22-30) mmol/L BUN (9-20) mg/dL Creatinine (0.66-1.25) mg/dL Glucose (74-99) mg/dL POC Glucose (mg/dL) 206 H 198 H 239 H (70-110) mg/dL Calcium (8.4-10.2) mg/dL 10/22/22 10/22/22 10/22/22 Range/Units 05:54 08:16 08:16 RBC 2.32 L (4.30-5.90) m/uL Hgb 8.6 L (13.0-17.5) gm/dL Hct 26.0 L (39.0-53.0) % MCV 112.2 H (80.0-100.0) fL MCH 36.9 H (25.0-35.0) pg RDW 16.6 H (11.5-15.5) % Plt Count 126 L (150-450) k/uL Macrocytosis Marked A Sodium 132 L (137-145) mmol/L Carbon Dioxide 16 L (22-30) mmol/L BUN 40 H (9-20) mg/dL Creatinine 1.42 H (0.66-1.25) mg/dL Glucose 156 H (74-99) mg/dL POC Glucose (mg/dL) 156 H (70-110) mg/dL Calcium 7.5 L (8.4-10.2) mg/dL
[2022-10-22 11:53] LABS: Glucose,Whole Blood 189 mg/dL (70-110)
--- NOTE | 2022-10-22 12:32 | P.PN ---
Subjective Patient is seen for follow-up for acute kidney injury on top of chronic kidney disease. Patient was admitted to the hospital with complaints of back pain and history of fall. He was noted to have a thoracic vertebral fracture. Patient was also noted to be in A. fib with RVR. Blood pressure had been on the lower side. Patient was also noted to have significant urine retention and Jacobs catheter was placed. Entresto was discontinued yesterday as blood pressure was quite low. This morning blood pressure is improved. Heart rate staying at about 103. Serum creatinine has improved as well to 1.4 Objective - Vital Signs Vital signs: Vital Signs Temp 98 F 10/22/22 08:00 Pulse 103 H 10/22/22 08:00 Resp 18 10/22/22 08:00 BP 116/77 10/22/22 08:00 Pulse Ox 96 10/22/22 08:00 FiO2 Intake & Output 10/21/22 10/22/22 10/22/22 18:59 06:59 18:59 Intake Total 354 160 120 Output Total 425 550 Balance -71 -390 120 Intake: IV 160 0.9 160 Oral 354 0 120 Output: Urine 425 550 Other: Voiding Method Indwelling Catheter Indwelling Catheter Indwelling Catheter # Bowel Movements 1 - Exam Patient is awake, comfortable, no acute distress Examination of the heart S1 and S2 Examination of the lungs bilateral breath sounds are heard Abdomen is soft nontender Examination of lower extremities shows no significant edema ENDODONTICS DENTIST exam grossly intact - Labs CBC & Chem 7: 10/22/22 08:16 10/22/22 08:16 Labs: Abnormal Lab Results - Last 24 Hours (Table) 10/21/22 10/21/22 10/22/22 Range/Units 16:31 19:39 05:54 RBC (4.30-5.90) m/uL Hgb (13.0-17.5) gm/dL Hct (39.0-53.0) % MCV (80.0-100.0) fL MCH (25.0-35.0) pg RDW (11.5-15.5) % Plt Count (150-450) k/uL Macrocytosis Sodium (137-145) mmol/L Carbon Dioxide (22-30) mmol/L BUN (9-20) mg/dL Creatinine (0.66-1.25) mg/dL Glucose (74-99) mg/dL POC Glucose (mg/dL) 198 H 239 H 156 H (70-110) mg/dL Calcium (8.4-10.2) mg/dL 10/22/22 10/22/22 10/22/22 Range/Units 08:16 08:16 11:51 RBC 2.32 L (4.30-5.90) m/uL Hgb 8.6 L (13.0-17.5) gm/dL Hct 26.0 L (39.0-53.0) % MCV 112.2 H (80.0-100.0) fL MCH 36.9 H (25.0-35.0) pg RDW 16.6 H (11.5-15.5) % Plt Count 126 L (150-450) k/uL Macrocytosis Marked A Sodium 132 L (137-145) mmol/L Carbon Dioxide 16 L (22-30) mmol/L BUN 40 H (9-20) mg/dL Creatinine 1.42 H (0.66-1.25) mg/dL Glucose 156 H (74-99) mg/dL POC Glucose (mg/dL) 189 H (70-110) mg/dL Calcium 7.5 L (8.4-10.2) mg/dL Assessment and Plan Assessment: 1. Acute kidney injury associated with hemodynamic instability and hemodynamic ATN. Currently nonoliguric. Component of obstructive uropathy and urine retention, status post Jacobs catheter placement. Patient did have a Jacobs cat heter during his last admission on 10/02/2022 as well. Ultrasound on 10/02/2022 did not show any significant hydronephrosis. UA shows WBCs 157 trace protein. 2. A. fib with RVR s/p Cardizem drip 3. Hyperkalemia associated with acute kidney injury and use of Aldactone, and urine retention. No active GI bleeding noted. 4. Mild non-gap metabolic acidosis associated with acute kidney injury 5. Acute thoracic vertebral fracture 6. CK D NKF stage IIIa with baseline creatinine around 1.3-1.5 mg/dL 7. Pyuria with urine culture showing no growth. Plan: May resume low-dose Entresto and monitor blood pressure Continue off of IV fluids and diuretics Repeat labs in a.m.
[2022-10-22] MEDS: SACUBITRIL/VALSARTAN 24 MG-26 MG TABLET PO SCH ×2 (12:36→20:45)
[2022-10-22 13:51] VITALS: BMI 36.7
--- NOTE | 2022-10-22 14:41 | P.PN ---
Subjective Progress Note Date: 10/22/22 Patient is a 72-year-old male with an extensive damage including systolic CHF, A. fib on Eliquis, CAD status post stents, COPD, type II DM, hypertension, who presents to the emergency room with complaints of back pain. The patient reports that he has had persistent back pain over the past several months, rated a 8 out of 10, constant, worsened with movement, radiating to the front of the chest. He also reported feeling lightheaded earlier today, causing him to fall without experiencing head trauma. Patient also denying LE weakness.In the emergency room, laboratory evaluation was remarkable for UA consistent with UTI, leukocytosis 12.9, and creatinine 1.90 (up from 1.58 on 10/03). Thoracic and tamiko mbar spine CT in the emergency room revealed severe acute compression deformity of T7 with spinal canal stenosis and a mild paravertebral hematoma with neural foraminal stenosis. There was also vertebral compression collapse of the L2 subacute versus chronic. Of note, the patient was recently admitted to the hospital 2 weeks ago for similar complaints of back pain at which time he was noted to be in acute CHF exacerbation. The patient's home Lasix was increased from 40 mg daily to twice a day. EKG had revealed A. fib at 114 bpm. Chest x- ray revealed a compression fracture with mild cardiomegaly and COPD. 10/20 Eliquis has been held. Plans for surgery today with Dr. Truong for T7 burst fracture. Cleared by cardiology for surgery. He reports pain in his lower back, 9/10 in severity. CBC shows hemoglobin 9.1 with MCV of 111.3. BMP shows sodium 134, bicarb of 18, BUN of 46, creatinine of 1.88, glucose 109 and calcium is 7.7. 10/21 Patient was seen and examined. Underwent ORIF T7, stabilization of T6-8, L1 kyphoplasty on 10/20. He reports soreness in his lower back. CBC shows Hg 8.7 with MCV 114.4 and plt count of 128. BMP shows Na 131, bicarb 14, BUN 45, Cr 1.83, glucose 179, Ca 7.3 and albumin 2.4. 10/22 Patient was seen and examined. PT and OT consult pending. He reports soreness in his lower back. CBC shows Hg 8.6 with MCV 112.2 and plt count of 126. BMP shows Na 132, bicarb 16, BUN 40, Cr 1.42, glucose 156, Ca 7.5. He will need SNF on discharge. General: nontoxic, no distress, appears at stated age Derm: warm, dry Head: atraumatic, normocephalic, symmetric Eyes: EOMI, no lid lag, anicteric sclera Cardiovascular: S1S2 irregular, no murmur Lungs: CTA bilateral, no rhonchi, no rales , no accessory muscle use Ext: no gross muscle atrophy, no edema, no contractures Neuro: no focal neuro deficits Psych: Alert, oriented, appropriate affect Acute T7 burst fracture Atrial fibrillation with RVR, now rate controlled Acute kidney injury on chronic kidney disease, resolving Type 2 diabetes Chronic macrocytic anemia, stable Non-anion gap metabolic acidosis Hyponatremia Resolved: Hyperkalemia Based on my assessment of this patient, this patient meets a moderate complexity level of care. Patient has an acute diagnosis of T7 burst fracture complicated with AFib with RVR that poses a threat to life or bodily function. Acute T7 burst fracture: T5-T9 stabilization for T7 ORIF 10/20. TLSO brace. Neurochecks. Fall precautions. PT and OT consulted. Atrial fibrillation with RVR: Now rate controlled. Metoprolol increased to 150 mg PO BID. Eliquis restarted. Cardiology on board. Acute kidney injury on chronic kidney disease: Nephrology on board. Lasix discontinued. Continue Jacobs catheter. Type 2 diabetes: ISS. Accuchecks ACHS. Hypoglycemic precautions. Chronic macrocytic anemia: Hg stable. Transfuse if Hg < 7. Non-anion gap metabolic acidosis: Sodium bicarbonate added by Nephrology. Hyponatremia Resolved: Leukocytosis, Hyperkalemia I have reviewed the following lead consultant notes: Cardiology and Nephrology note reviewed. I have reviewed the results of the following tests: CBC and BMP reviewed as above. I have ordered the following tests: CBC and BMP ordered for tomorrow morning. I have discussed the care of this patient with the following independent historian: I have independently interpreted the following test below: I have discussed the management of this patient with the following physician: Objective - Vital Signs Vital signs: Vital Signs Temp 97.6 F 10/22/22 12:00 Pulse 99 10/22/22 12:00 Resp 18 10/22/22 12:00 BP 126/88 10/22/22 12:00 Pulse Ox 97 10/22/22 12:00 FiO2 Intake & Output 10/21/22 10/22/22 10/22/22 18:59 06:59 18:59 Intake Total 354 160 120 Output Total 425 550 Balance -71 -390 120 Weight 109.5 kg Intake: IV 160 0.9 160 Oral 354 0 120 Output: Urine 425 550 Other: Voiding Method Indwelling Catheter Indwelling Catheter Indwelling Catheter # Bowel Movements 1 - Labs CBC & Chem 7: 10/22/22 08:16 10/22/22 08:16 Labs: Abnormal Lab Results - Last 24 Hours (Table) 10/21/22 10/21/22 10/22/22 Range/Units 16:31 19:39 05:54 RBC (4.30-5.90) m/uL Hgb (13.0-17.5) gm/dL Hct (39.0-53.0) % MCV (80.0-100.0) fL MCH (25.0-35.0) pg RDW (11.5-15.5) % Plt Count (150-450) k/uL Macrocytosis Sodium (137-145) mmol/L Carbon Dioxide (22-30) mmol/L BUN (9-20) mg/dL Creatinine (0.66-1.25) mg/dL Glucose (74-99) mg/dL POC Glucose (mg/dL) 198 H 239 H 156 H (70-110) mg/dL Calcium (8.4-10.2) mg/dL 10/22/22 10/22/22 10/22/22 Range/Units 08:16 08:16 11:51 RBC 2.32 L (4.30-5.90) m/uL Hgb 8.6 L (13.0-17.5) gm/dL Hct 26.0 L (39.0-53.0) % MCV 112.2 H (80.0-100.0) fL MCH 36.9 H (25.0-35.0) pg RDW 16.6 H (11.5-15.5) % Plt Count 126 L (150-450) k/uL Macrocytosis Marked A Sodium 132 L (137-145) mmol/L Carbon Dioxide 16 L (22-30) mmol/L BUN 40 H (9-20) mg/dL Creatinine 1.42 H (0.66-1.25) mg/dL Glucose 156 H (74-99) mg/dL POC Glucose (mg/dL) 189 H (70-110) mg/dL Calcium 7.5 L (8.4-10.2) mg/dL
[2022-10-22 16:28] LABS: Glucose,Whole Blood 186 mg/dL (70-110)
[2022-10-22] MEDS: APIXABAN 5 MG TAB PO SCH (20:45)
[2022-10-22] MEDS: ATORVASTATIN 40 MG TAB PO SCH (20:45)
[2022-10-22] MEDS: TAMSULOSIN 0.4 MG CAP.ER.24H PO SCH (20:45)
[2022-10-22] MEDS: risperiDONE 0.5 MG TAB PO SCH (20:45)
[2022-10-22] MEDS: SERTRALINE 50 MG TAB PO SCH (20:45)
[2022-10-22 20:55] LABS: Glucose,Whole Blood 160 mg/dL (70-110)
[2022-10-23 06:19] LABS: Glucose,Whole Blood 132 mg/dL (70-110)
[2022-10-23] MEDS: INSULIN ASPART (NovoLOG) 100 UNIT/ML VIAL SQ SCH ×3 (06:22→18:34)
--- NOTE | 2022-10-23 08:45 | P.PN ---
Subjective Progress Note Date: 10/23/22 Principal diagnosis: Back pain Spinal fracture Patient seen and examined at bedside this morning. Patient is resting comfortably in bed. Patient does have complaint of mid back pain that is exacerbated with activity. Patient reports his pain is managed on current regimen. Assisted patient up in bed for breakfast, patient tolerated activity well. Surgical dressings to the thoracic region are clean dry and intact. Dressings may be removed in 2 days and allow sites open to air. VSS. No acute events overnight. Objective - Vital Signs Vital signs: Vital Signs Temp 97.7 F 10/22/22 20:00 Pulse 77 10/23/22 04:00 Resp 16 10/23/22 04:00 BP 122/80 10/23/22 04:00 Pulse Ox 98 10/23/22 04:00 FiO2 Intake & Output 10/22/22 10/23/22 10/23/22 18:59 06:59 18:59 Intake Total 240 Output Total 800 900 Balance -560 -900 Weight 109.5 kg Intake: Oral 240 Output: Urine 800 900 Other: Voiding Method Indwelling Catheter Indwelling Catheter # Bowel Movements 1 - Exam Physical Examination General: The patient is awake and alert, in no acute distress Skin: Skin is warm and dry with no obvious rashes or lesions. Surgical incision to the thoracic region, dressing is clean dry and intact. Eye: Pupils are equal, round and reactive to light, extra-ocular movements are intact; there is normal conjunctiva bilaterally. Neck: The neck is supple, there is no tenderness and ROM intact. Cardiovascular: There is a regular rate and rhythm. No murmur, rub or gallop is appreciated. Respiratory: Lungs are clear to auscultation, respirations are non-labored, breath sounds are equal. Gastrointestinal: Soft, non-distended, non-tender abdomen. Back: There is no tenderness to palpation in the midline, paralumbar, parathoracic or buttocks region. There is no obvious deformity . Musculoskeletal: ROM limited secondary to pain and stiffness from surgical procedure. Muscle strength in all major muscle groups of bilateral upper extremities 5/5, bilateral lower extremities 4+/5. Neurological: CN 2-12 intact. There are no obvious motor or sensory deficits. Movement and coordination equal and intact. Sensory exam to light touch intact C5-T1 and intact from L2-S1. Reflexes 2/4 in bilateral upper and lower extremities. Negative Hoffmans, babinski, and clonus signs. Psychiatric: Cooperative, appropriate mood & affect, normal judgment. - Labs CBC & Chem 7: 10/22/22 08:16 10/22/22 08:16 Labs: Abnormal Lab Results - Last 24 Hours (Table) 10/22/22 10/22/22 10/22/22 Range/Units 08:16 08:16 11:51 RBC 2.32 L (4.30-5.90) m/uL Hgb 8.6 L (13.0-17.5) gm/dL Hct 26.0 L (39.0-53.0) % MCV 112.2 H (80.0-100.0) fL MCH 36.9 H (25.0-35.0) pg RDW 16.6 H (11.5-15.5) % Plt Count 126 L (150-450) k/uL Macrocytosis Marked A Sodium 132 L (137-145) mmol/L Carbon Dioxide 16 L (22-30) mmol/L BUN 40 H (9-20) mg/dL Creatinine 1.42 H (0.66-1.25) mg/dL Glucose 156 H (74-99) mg/dL POC Glucose (mg/dL) 189 H (70-110) mg/dL Calcium 7.5 L (8.4-10.2) mg/dL 10/22/22 10/22/22 10/23/22 Range/Units 16:26 20:53 06:17 RBC (4.30-5.90) m/uL Hgb (13.0-17.5) gm/dL Hct (39.0-53.0) % MCV (80.0-100.0) fL MCH (25.0-35.0) pg RDW (11.5-15.5) % Plt Count (150-450) k/uL Macrocytosis Sodium (137-145) mmol/L Carbon Dioxide (22-30) mmol/L BUN (9-20) mg/dL Creatinine (0.66-1.25) mg/dL Glucose (74-99) mg/dL POC Glucose (mg/dL) 186 H 160 H 132 H (70-110) mg/dL Calcium (8.4-10.2) mg/dL Assessment and Plan Assessment: Postop day 3: T5-T9 stabilization with T7 ORIF 1. Fall with trauma 2. T7 BURST fracture with posterior propogation AO Type A4 with a B3 component 3. Mechanical back pain 4. Complex medical comorbidities Plan: -Appreciate mental health consultant and team management. -Activity: Ambulate QID, OOB all meals, up and about, limit lifting bending twisting to less than 5 lbs. Use walker or cane if needed for stability. -Daily PT/OT, increase ambulation strength and balance. -TLSO Brace when up and about, not needed in bed or chair -Pain control: Adequate at this time -Meds: reviewed -GI ppx: senna, Miralax -DVT PPX: Per medicine -Hygiene: Shower today. Maintain dressing clean and dry. -Encourage IS 10x/hr -Dispo: Patient is cleared from orthopedic standpoint for discharge, patient will follow up in office in 2 weeks. No further recommendations. Orthopedics will be signing off at this point. *I reviewed and discussed this case with my attending Dr. Truong, whom has reviewed this chart and films and is in agreement with assessment and plan of care as outlined above. I have personally seen and examined the patient, performed the documentation and the assessment and plan as written. Number of minutes spent on the visit: 20m.
[2022-10-23] MEDS: SACUBITRIL/VALSARTAN 24 MG-26 MG TABLET PO SCH ×2 (08:55→19:39)
[2022-10-23] MEDS: THIAMINE 100 MG TAB PO SCH (08:55)
[2022-10-23] MEDS: AMIODARONE 200 MG TAB PO SCH (08:56)
[2022-10-23] MEDS: MULTIVITAMINS, THERA 1 EACH TAB PO SCH (08:57)
[2022-10-23] MEDS: METOPROLOL SUCCINATE (ER) 50 MG TAB.ER.24H PO SCH ×2 (08:57→19:39)
[2022-10-23] MEDS: SODIUM BICARBONATE TAB 650 MG TAB PO SCH ×2 (08:59→19:39)
[2022-10-23] MEDS: CYANOCOBALAMIN 500 MCG TAB PO SCH (08:59)
[2022-10-23] MEDS: FERROUS SULFATE 325 MG TAB PO SCH (08:59)
[2022-10-23] MEDS: allopurinoL 100 MG TAB PO SCH (08:59)
[2022-10-23] MEDS: APIXABAN 5 MG TAB PO SCH ×2 (08:59→19:39)
[2022-10-23] MEDS: ACETAMINOPHEN TAB 325 MG TAB PO PRN ×2 (08:59→16:33)
[2022-10-23] MEDS: LORATADINE 10 MG TAB PO SCH (08:59)
[2022-10-23 09:04] LABS: Anisocytosis Slight; HCT 26.5 % (39.0-53.0); HGB 8.6 gm/dL (13.0-17.5); Hypochromasia Moderate; MCH 36.8 pg (25.0-35.0); MCHC 32.4 g/dL (31.0-37.0); MCV 113.5 fL (80.0-100.0); Macrocytosis Marked; Mean Platelet Volume 7.5; Platelet Count 134 k/uL (150-450); Poikilocytosis Slight; RBC 2.33 m/uL (4.30-5.90); RDW 16.6 % (11.5-15.5); WBC 7.5 k/uL (3.8-10.6)
[2022-10-23] MEDS ORDERED: FUROSEMIDE 10 MG/ML 4 ML VIAL IV STA (09:08)
[2022-10-23 09:22] LABS: African American GFR (CKD) 58 (>60 ml/min/1.73 sqM); Anion Gap 7 mmol/L; Blood Urea Nitrogen 32 mg/dL (9-20); Calcium 7.7 mg/dL (8.4-10.2); Carbon Dioxide 22 mmol/L (22-30); Chloride 104 mmol/L (98-107); Glucose 186 mg/dL (74-99); Non-African American GFR(CKD) 50 (>60 ml/min/1.73 sqM); Potassium 4.4 mmol/L (3.5-5.1); Sodium 133 mmol/L (137-145)
[2022-10-23 12:08] LABS: Glucose,Whole Blood 212 mg/dL (70-110)
--- NOTE | 2022-10-23 12:26 | P.PN ---
Subjective Progress Note Date: 10/23/22 The patient was interviewed and examined. HPI: Patient is a pleasant 72-year-old male who presented to the hospital yesterday after a fall and dizziness. Patient states that he had been going to dinner, and as he attempted to get the chair, he reports that he got significantly dizzy, and fell. After presentation to the emergency department, it was determined the patient had sustained a compression fracture of his T7 vertebrae. Due to this the patient's anticoagulation was discontinued. Patient demonstrated a mild elevation in white blood cell count of 12.9, patient also demonstrated possible dehydration with a sodium of 135, potassium of 5.5, B1 57, creatinine 1.9. His EKG upon arrival to the emergency department demonstrated atrial fibrillation with rapid ventricular response, with a heart rate of 114. The patient is well-known to our service, and has a past cardiac history that includes atrial fibrillation, coronary artery disease with stent placement, diabetes, hypertension, hyperlipidemia, and gout. REVIEW OF LABS, ECG & MEDICAL DATA: LABS: White count 12.9, hemoglobin 11.2, platelets 244, sodium 135, potassium 5.5, B1 57, creatinine 1.9, magnesium 1.8, troponin less than 0.012, proBNP 1650 EKG: Atrial fibrillation with rapid ventricular response, heart rate 114 IMAGING: Chest x-ray dated 10/17/2022 demonstrates severe mid thoracic vertebral compression deformity not clearly seen on previous exam, mild cardiomegaly and COPD, no definitive acute cardiopulmonary process. 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 VITALS: Temp 98.0, pulse 103, respirations 18, blood pressure 112/74, O2 saturation 97% on room air 10/19 Patient is seen today in follow-up. Heart rate this morning is running in the 80s, blood pressure 92/57 and 102/68. Pulse ox 94% on room air. Telemetry is atrial fibrillation controlled rate. Repeat blood work reveals BUN 44 creatinine 1.61. Hemoglobin 9.8. Sodium 131, potassium 4.4. Patient denies having any chest pain, shortness of breath. He does complain of back pain secondary to T7 fracture. 10/20 Patient is seen today in follow-up. He is scheduled for T5-T9 stabilization with T7 ORIF today with Dr. Truong. Because of planned surgery, eliquis is on hold. Telemetry is atrial fibrillation with controlled rate. Blood pressure 105/57. Repeat blood work reveals hemoglobin 7.1 sodium 134, potassium 4.2, BUN 46 and creatinine 1.88. 10/21 Patient remains in atrial fibrillation in the 90s, blood pressure 90/55, pulse ox 92% on room air, afebrile. Yesterday, patient underwent spinal surgery. Patient states he does have discomfort in his back today. Repeat blood work reveals hemoglobin of 8.7, BUN 45 creatinine 1.83. Eliquis has been on hold due to the surgery. 10/22 Yesterday, due to hypotension, Entresto was discontinued and blood pressures are improved this morning. On , heart rate 92-103. Discussed case with nephrology and will try to put Entresto back in this morning and monitor him closely to see if he is able to tolerate Entresto. No other medication changes made. We will recheck out to orthopedic spine to see if we can resume eliquis. 10/23 Patient was resumed back on Entresto and received 2 doses yesterday and one this morning. Blood pressure is 112/68, heart rate in the 70s and 80s, pulse ox 99% on 2 L. Telemetry has been atrial fibrillation with controlled rate. Repeat blood work reveals sodium 133, potassium 4.4, BUN 32 creatinine 1.38. Yesterday discussed case with orthopedic spine and patient was cleared to resume eliquis which was done. Patient is waiting for discharge for subacute rehab. EXAMINATION: GENERAL: Well-appearing, well-nourished and in no acute distress. NECK: Supple without JVD or thyromegaly. LUNGS: Breath sounds clear to auscultation bilaterally. Respiration equal and unlabored. No wheezes, rales or rhonchi. HEART: Irregular rate and rhythm without murmurs, rubs or gallops. S1 and S2 heard. EXTREMITIES: Normal range of motion, no edema. No clubbing or cyanosis. Peripheral pulses intact and strong. IMPRESSION: 1. Atrial fibrillation with rapid ventricular response 2. Dehydration 3. Dizziness 4. T7 compression fracture PLAN: Continue current cardiac medications including Entresto, higher dose of metoprolol succinate and eliquis. Patient is cleared from cardiology for discharge. Thank you for the consult and allowing us to participate in the care of this patient. Objective - Vital Signs Vital signs: Vital Signs Temp 98.5 F 10/23/22 08:00 Pulse 86 10/23/22 08:00 Resp 24 10/23/22 08:00 BP 108/70 10/23/22 08:00 Pulse Ox 98 10/23/22 08:00 FiO2 Intake & Output 10/22/22 10/23/22 10/23/22 18:59 06:59 18:59 Intake Total 240 Output Total 800 900 Balance -560 -900 Weight 109.5 kg Intake: Oral 240 Output: Urine 800 900 Other: Voiding Method Indwelling Catheter Indwelling Catheter # Bowel Movements 1 - Labs CBC & Chem 7: 10/23/22 08:29 10/23/22 08:29 Labs: Abnormal Lab Results - Last 24 Hours (Table) 10/22/22 10/22/22 10/22/22 Range/Units 11:51 16:26 20:53 POC Glucose (mg/dL) 189 H 186 H 160 H (70-110) mg/dL 10/23/22 Range/Units 06:17 POC Glucose (mg/dL) 132 H (70-110) mg/dL
--- NOTE | 2022-10-23 12:52 | P.DS ---
Providers Date of admission: 10/17/22 21:18 Expected date of discharge: 10/23/22 Attending physician: Sindy Cummins MD Consults: 10/17/22 23:47 Consult Physician Urgent Consulting Provider: Garret Truong Consult Reason/Comments: spinal fracture Do you want consulting provider notified?: Yes 10/17/22 23:48 Consult Physician Urgent Consulting Provider: Bertrand Murcia Consult Reason/Comments: RAJAN Do you want consulting provider notified?: Yes 10/18/22 09:15 Consult Physician Urgent Consulting Provider: Favian Piedra Consult Reason/Comments: afib RVR Do you want consulting provider notified?: Already Contacted [facility]: Patient is a 72-year-old male with an extensive damage including systolic CHF, A. fib on Eliquis, CAD status post stents, COPD, type II DM, hypertension, who presents to the emergency room with complaints of back pain. The patient reports that he has had persistent back pain over the past several months, rated a 8 out of 10, constant, worsened with movement, radiating to the front of the chest. He also reported feeling lightheaded earlier today, causing him to fall without experiencing head trauma. Patient also denying LE weakness.In the emergency room, laboratory evaluation was remarkable for UA consistent with UTI, leukocytosis 12.9, and creatinine 1.90 (up from 1.58 on 10/03). Thoracic and lumbar spine CT in the emergency room revealed severe acute compression deformity of T7 with spinal canal stenosis and a mild paravertebral hematoma with neural foraminal stenosis. There was also vertebral compression collapse of the L2 subacute versus chronic. Of note, the patient was recently admitted to the hospital 2 weeks ago for similar complaints of back pain at which time he was noted to be in acute CHF exacerbation. The patient's home Lasix was increased from 40 mg daily to twice a day. EKG had revealed A. fib at 114 bpm. Chest x-ray revealed a compression fracture with mild cardiomegaly and COPD. 10/20 Eliquis has been held. Plans for surgery today with Dr. Truong for T7 burst fracture. Cleared by cardiology for surgery. He reports pain in his lower back, 9/10 in severity. CBC shows hemoglobin 9.1 with MCV of 111.3. BMP shows sodium 134, bicarb of 18, BUN of 46, creatinine of 1.88, glucose 109 and calcium is 7.7. 10/21 Patient was seen and examined. Underwent ORIF T7, stabilization of T6-8, L1 kyphoplasty on 10/20. He reports soreness in his lower back. CBC shows Hg 8.7 with MCV 114.4 and plt count of 128. BMP shows Na 131, bicarb 14, BUN 45, Cr 1.83, glucose 179, Ca 7.3 and albumin 2.4. 10/22 Patient was seen and examined. PT and OT consult pending. He reports soreness in his lower back. CBC shows Hg 8.6 with MCV 112.2 and plt count of 126. BMP shows Na 132, bicarb 16, BUN 40, Cr 1.42, glucose 156, Ca 7.5. He will need SNF on discharge. 10/23 Patient was seen and examined. He reports back pain controlled on current pain medications. Cardiology and Orthopedic surgery has cleared the patient for discharge. His Metoprolol has been increased to 150 mg PO BID. He will be restarted on his Lasix at a lower dose of 40 mg PO QD give his systolic HF with EF of 35%. His Lasix dose may need to be increased to 40 mg PO BID as he was recently admitted for CHF exacerbation. Aldactone will be held due to hypotension until he can follow up with Cardiology in the outpatient setting. Plans for [facility] hopefully today. Follow up with PCP within 1-2 days of discharge. Follow up with Dr. Truong within 2 weeks. Follow up with Cardiology within 1 week. Pertinent studies include chest x-ray, CT thoracic and lumbar spine. Pertinent procedures include ORIF T7, stabilization of T6-8, L1 kyphoplasty on 10/20 General: nontoxic, no distress, appears at stated age Derm: warm, dry Head: atraumatic, normocephalic, symmetric Eyes: EOMI, no lid lag, anicteric sclera Cardiovascular: S1S2 irregular, no murmur Lungs: CTA bilateral, no rhonchi, no rales , no accessory muscle use Ext: no gross muscle atrophy, no edema, no contractures Neuro: no focal neuro deficits Psych: Alert, oriented, appropriate affect Discharge diagnoses: Acute T7 burst fracture Atrial fibrillation with RVR, now rate controlled Acute kidney injury on chronic kidney disease, resolving Type 2 diabetes Chronic macrocytic anemia, stable Non-anion gap metabolic acidosis Hyponatremia History of systolic CHF Resolved: Hyperkalemia This complex discharge took 35 minutes to complete. Patient Condition at Discharge: Stable Plan - Discharge Summary New Discharge Prescriptions: New Cyclobenzaprine [Flexeril] 5 mg PO TID #21 tablet HYDROcodone/APAP 7.5-325MG [[place] 7.5-325] 1 tab PO Q6HR PRN #21 tab PRN Reason: Pain Metoprolol Succinate (ER) [Toprol XL] 150 mg PO BID tab Sodium Bicarbonate Tab 650 mg PO BID tab Continue Ferrous Sulfate [Iron] 325 mg PO DAILY@0800 risperiDONE [RisperDAL] 0.5 mg PO HS@1999 Sertraline HCl [Zoloft] 50 mg PO HS@1999 Tamsulosin HCl [Flomax] 0.4 mg PO HS@1999 Apixaban [Eliquis] 5 mg PO BID@08,1999 glipiZIDE [Glucotrol] 5 mg PO BID@0800,1999 Loratadine [Claritin] 10 mg PO DAILY@0800 Multivit-Min/FA/Lycopen/Lutein [Centrum Silver Men Tablet] 1 tab PO DAILY@0800 Acetaminophen Tab [Tylenol] 1,000 mg PO TID@0800,1600,1999 Clopidogrel [Plavix] 75 mg PO DAILY@0800 oxyBUTYnin chloride [Ditropan] 5 mg PO DAILY@0800 Lidocaine 5% Patch [Lidoderm 5% Patch] 1 patch TOPICAL DAILY allopurinoL [Zyloprim] 100 mg PO DAILY@0800 Cyanocobalamin [Vitamin B-12] 500 mcg PO DAILY@0800 Thiamine HCl [Vitamin B-1] 100 mg PO DAILY@0800 Amiodarone [Cordarone] 200 mg PO DAILY@0800 Sacubitril/Valsartan [Entresto 24 mg-26 mg Tablet] 1 tab PO BID@0800,1999 Atorvastatin [Lipitor] 40 mg PO HS@1999 Ergocalciferol (Vitamin D2) [Drisdol (50,000 Iu)] 1,250 mcg PO QMONTHLY Changed Furosemide [Lasix] 40 mg PO DAILY #0 Discontinued Metoprolol Succinate (ER) [Toprol XL] 100 mg PO BID@0800,1999 Spironolactone [Aldactone] 50 mg PO DAILY@0800 Discharge Medication List Ferrous Sulfate [Iron] 325 mg PO DAILY@0810/21/20 [History] Sertraline HCl [Zoloft] 50 mg PO HS@199910/21/20 [History] Tamsulosin HCl [Flomax] 0.4 mg PO HS@199910/21/20 [History] allopurinoL [Zyloprim] 100 mg PO DAILY@79910/21/20 [History] risperiDONE [RisperDAL] 0.5 mg PO HS@199910/21/20 [History] Apixaban [Eliquis] 5 mg PO BID@799,199905/09/21 [History] Cyanocobalamin [Vitamin B-12] 500 mcg PO DAILY@79905/09/21 [History] Thiamine HCl [Vitamin B-1] 100 mg PO DAILY@79905/09/21 [History] Amiodarone [Cordarone] 200 mg PO DAILY@0802/06/22 [History] Loratadine [Claritin] 10 mg PO DAILY@79902/06/22 [History] Multivit-Min/FA/Lycopen/Lutein [Centrum Silver Men Tablet] 1 tab PO DAILY@0802/06/22 [History] glipiZIDE [Glucotrol] 5 mg PO BID@799,199902/06/22 [History] Acetaminophen Tab [Tylenol] 1,000 mg PO TID@0800,1599,199910/01/22 [History] Sacubitril/Valsartan [Entresto 24 mg-26 mg Tablet] 1 tab PO BID@799,199910/01/22 [History] Atorvastatin [Lipitor] 40 mg PO HS@199910/16/22 [History] Clopidogrel [Plavix] 75 mg PO DAILY@79910/16/22 [History] oxyBUTYnin chloride [Ditropan] 5 mg PO DAILY@79910/16/22 [History] Ergocalciferol (Vitamin D2) [Drisdol (50,000 Iu)] 1,250 mcg PO QMONTHLY 10/17/22 [History] Lidocaine 5% Patch [Lidoderm 5% Patch] 1 patch TOPICAL DAILY 10/17/22 [History] Cyclobenzaprine [Flexeril] 5 mg PO TID #21 tablet 10/23/22 [Rx] Furosemide [Lasix] 40 mg PO DAILY #0 10/23/22 [Rx] HYDROcodone/APAP 7.5-325MG [[place] 7.5-325] 1 tab PO Q6HR PRN #21 tab 10/23/22 [Rx] Metoprolol Succinate (ER) [Toprol XL] 150 mg PO BID tab 10/23/22 [Rx] Sodium Bicarbonate Tab 650 mg PO BID tab 10/23/22 [Rx] Follow up Appointment(s)/Referral(s): Brad Lopez MD [Primary Care Provider] - 1-2 days Hakan Angela MD [STAFF PHYSICIAN] - 1 Week Garret Truong DO [Doctor of Osteopathic Medicine] - 2 Weeks Activity/Diet/Wound Care/Special Instructions: Spine Discharge and Recovery Instructions Medications: See medication list All medication refills should be obtained through your primary care doctor or your clinic spine surgeon. Please discuss prescription refills at your follow up appointment. Do not call the hospital for medication refills. Dressing: Leave your dressing in place for a total of 5 days post operatively. Then you may remove your dressing and leave open to air. Keep the area clean and if not able to keep area clean, then cover with sterile gauze and tape. Showering: You may shower 3 days after your procedure allowing soap and water to run over incision. Do not scrub. Do not soak. Blot dry. Follow up: Please confirm a follow up appointment with your surgeon 3 weeks post operatively. Please make an appointment to follow up with your PCP in 1-2 weeks after surgery for evaluation 3 phase, 3-week plan POST OP WEEKS 1-3 1. Lifting/carrying/pushing/pulling limited to less than 5 pounds. 2. Do not sit for longer than 15 minutes at one time. Get up and walk around. Prolonged sitting is NOT advised. If you lay down, see if you can tolerate laying down on you front (belly side) 3. Walk for periods of 15 minutes = 1 mile but no longer; do it multiple times times each day. 4. Ice your low back after activity. POST OP WEEKS 3-6 1. Lifting limited to less than 20 pounds. 2. Do not sit for longer than 30 minutes at a time. Frequently change positions. Use a sit-to stand workstation or take frequent breaks from sitting if you have returned to work. 3. Walk for 30 minutes each day. If possible, do these three or more times a day POST OP WEEKS 6+ At your 6-week appointment we will give you a physical therapy referral to focus on a core stabilization and strengthening program. You should also work on leg & buttock strengthening, hamstring & quadriceps stretching, and continue a low impact aerobic activity program such as swimming, walking, or riding a stationary bicycle. During the initial 6 weeks after your surgery, you are at the highest risk of re-injuring your spine. You should generally avoid BLTs (bending, lifting and twisting combination motions) and follow the above guidelines to reduce the chance of reinjury. You can anticipate post op appointments in our office at approximately 3 weeks and 6 weeks after your surgery. INCISION CARE: If your incision is not draining you do NOT need to cover it with a dressing. Keep your incision clean, dry and intact. In most cases, we apply skin glue, aime or sutures to the incision at the time of surgery. This will be like a crust or have the appearance of a scab and will fall off in time on its own. The stitches or aime need to be removed at 3 weeks post op appointment. You may begin to shower 3 days after surgery (this allows the glue to kebede well). However, please avoid scrubbing the incision site or peeling off any of the skin glue. This will ensure optimal healing of your incision. Also, during this time avoid soaking the incision area in water - this includes swimming pools, hot tubs or baths. No ointments, lotions or oils on the incision until your surgeon allows. Leave aime, sutures or glue in place. Neurological dysfunction that comes on suddenly can also be a sign of a stroke. Below some common symptoms of a stroke are listed: B - balance difficulty such as sudden onset walking or leaning to one side - NEW E - eye problem such as sudden double vision or trouble seeing on one side - NEW F - Facial weakness or numbness on one side - NEW A - Arm or leg weakness or numbness on one side - NEW S - Slurred speech or difficulty with word finding - NEW T - Time is BRAIN! Call 911 as soon as you recognize these symptoms Diet: Consume a regular diet rich in vegetables and lean protein such as chicken or fish. You should consume in a ratio of approximately 20% fats|40% carbohydrates|40%protein. Vegetables, sweet potatoes, brown rice or quinoa are examples of good carbohydrates. Chips, white bread, cookies and sweets/sugar are examples of bad carbohydrates. Limit your bad carbs, go wild with good carbs. 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 (1) Get Active. Physical activity can help people lose weight, control high blood pressure and cholesterol, feel emotionally better, and sleep better. (2) Control Cholesterol. Avoid a diet high in saturated fat, trans fat, & cholesterol. Limit whole milk & cream, ice cream, butter, egg yolks, processed meats (like sausage and hot dogs), and fatty meats. Choose healthy foods that are low in saturated fat, trans fat and cholesterol which include: Fruits and vegetables, fiber rich grain products (like whole grain pasta and brown rice), lean meat such as chicken, fish, nuts, seeds, and legumes. (3) Eat Better. Eat small portions. Shop at the grocery with a list and do not stray from it. Tips for a healthy diet include: Limit sodium intake to less than 1500mg daily, avoid prepackaged, processed, and fast foods, choose a diet rich in fruits, vegetables, and whole grain, high fiber foods, and limit saturated & cholesterol in your diet. (4) Manage Blood Pressure. If you have high blood pressure, you should have a cuff at home so that you can check your blood pressure regularly. Be sure you have a good cuff. An arm one is generally better than a wrist one. Bring the cuff to a doctor's appointment to validate that the measurements that your cuff are taking are accurate. Take your blood pressure twice daily when you are sitting down and relaxing. Record the numbers in a log and bring this log with you to your doctors' appointments. (5) Lose Weight if your BMI is above 25. A healthy BMI is between 19-25. To calculate Your BMI, you may use a Standard BMI Calculator on the NIH BMI website: <www.nhlbi.nih.gov/guidelines/obesity/BMI/bmicalc.htm>. Weigh oneself daily. If you are overweight, set a goal to lose weight. A pound a week loss if needed is a good target. (6) Reduce Blood Sugar. Limit foods and liquids with "added sugars." (Added sugars include sucrose, fructose, glucose, maltose, dextrose, high fructose corn syrup, corn syrup, concentrated fruit juice and honey). (7) Stop Smoking. If you smoke, quitting smoking is one of the best things that you can do for your health. Smoking increases your risk of heart attack, stroke, and peripheral vascular disease, which is a build-up of plaque in your arteries. Please discard all the cigarettes and lighters in your house. Have a plan for what you will do when you have the urge to smoke. Direct and second- hand smoke shortens your life as well as the lives of your family, friends and others around you. For your health and the health of those around you, please consider quitting! Proper Bending Body Mechanics: Maintain a wide stance with one foot slightly in front of the other. Keep your back straight. Bend utilizing the strength in your hips and knees. Do not bend at the waist. Maintain the lifted object at your waist-level close to your body. Avoid lifting weight that causes immediately pain or pain anywhere in the body afterwards. Smoking/Nicotine If there was ever one thing that you could do to increase your overall health, decrease your risk of cardiovascular problems by about 39% the second you make the choice, it is to STOP SMOKING. Your body's most instant gratification is the second you stop smoking. We have all heard the studies, read the articles but it is true, smoking is extremely bad for your overall health, and moreover it is detrimental to your bone health. Nicotine, IN ANY FORM, kills bone cells, prevents your body from healing fractures, and significantly prolongs healing after surgery. In spine surgery specifically, it increases your risk of not healing your bones to create a fusion and increases your risk of having a revision surgery due to this up to 60%. I know it is hard. I know it feels impossible. But there are ways. Take control of your life. We are here to help you through it. And when you are ready, ask us and we can direct you to help if you desire. Use the START Plan to Quit Smoking (please visit the [employer].org website listed below for more information): S = Set a quit date. Choose a date within the next 2 weeks, so you have enough time to prepare without losing your motivation to quit. If you mainly smoke at work, quit on the weekend, so you have a few days to adjust to the change. T = Tell family, friends, and co-workers that you plan to quit. Let your friends and family in on your plan to quit smoking and tell them you need their support and encouragement to stop. Look for a quit boni who wants to stop smoking as well. You can help each other get through the rough times. A = Anticipate and plan for the challenges you'll face while quitting. Most people who begin smoking again do so within the first 3 months. You can help yourself make it through by preparing ahead for common challenges, such as nicotine withdrawal and cigarette cravings. R = Remove cigarettes and other tobacco products from your home, car, and work. Throw away all your cigarettes (no emergency pack!), lighters, ashtrays, and matches. Wash your clothes and freshen up anything that smells like smoke. Shampoo your car, clean your drapes and carpet, and steam your furniture. T = Talk to your doctor about getting help to quit. Your doctor can prescribe medication to help with withdrawal and suggest other alternatives. If you can't see a doctor, you can get many products over the counter at your local pharmacy or grocery store, including the nicotine patch, nicotine lozenges, and nicotine gum. Resources for Quitting Smoking: <https://www.[place].gov/documents/[facility]/Quit_Tobacco_Resources_for_patients_313 480_7.pdf> Supplementation: Take recommended dosages of Vitamin D and Calcium to help fortify your bones and help them to heal. See your health maintenance packet for dosages and re commended levels. DVT/VTE prophylaxis: You will be given compression stockings from the hospital. Wear these daily for the first two weeks after surgery. You may take them off at night. You may be prescribed a medication to help thin your blood. Take this as directed. If you are not prescribed this medication, early and frequent ambulation has been shown to be the best prophylaxis to deep vein thrombosis and sequelae related to this event. Discharge Disposition: TRANSFER TO SNF/ECF Plan of Treatment: Voiding trial
[2022-10-23] MEDS ORDERED: DOCUSATE 100 MG CAP PO PRN (13:14)
[2022-10-23 16:26] VITALS: RESP 20; TEMP 97.5
[2022-10-23] MEDS: SODIUM CHLORIDE 0.9% 1,000 ML IV SCH (17:04)
[2022-10-23 17:09] LABS: Glucose,Whole Blood 212 mg/dL (70-110)
[2022-10-23] MEDS: TAMSULOSIN 0.4 MG CAP.ER.24H PO SCH (19:39)
[2022-10-23] MEDS: risperiDONE 0.5 MG TAB PO SCH (19:39)
[2022-10-23] MEDS: SERTRALINE 50 MG TAB PO SCH (19:39)
[2022-10-23] MEDS: ATORVASTATIN 40 MG TAB PO SCH (19:39)
[2022-10-23 19:46] VITALS: BP 121/82; PULSE 86
--- NOTE | 2022-10-24 11:25 | P.PN ---
Subjective Patient is seen for follow-up for acute kidney injury on top of chronic kidney disease. Patient was admitted to the hospital with complaints of back pain and history of fall. He was noted to have a thoracic vertebral fracture. Patient was also noted to be in A. fib with RVR. Blood pressure had been on the lower side. Patient was also noted to have significant urine retention and Jacobs catheter was placed. Patient is back on entresto. BP has not dropped yet. Feels good. Creatinine at 1.4 Objective - Vital Signs Vital signs: Vital Signs Temp 97.5 F L 10/23/22 16:00 Pulse 86 10/23/22 19:45 Resp 20 10/23/22 19:45 BP 121/82 10/23/22 19:45 Pulse Ox 98 10/23/22 19:45 FiO2 Intake & Output 10/23/22 10/24/22 10/24/22 18:59 06:59 18:59 Intake Total 958 Output Total 1200 Balance -242 Intake: Oral 958 Output: Urine 1200 Other: Voiding Method Indwelling Catheter Indwelling Catheter - Exam Patient is awake, comfortable, no acute distress Examination of the heart S1 and S2 Examination of the lungs bilateral breath sounds are heard Abdomen is soft nontender Examination of lower extremities shows no significant edema PROJECT ENGINEER exam grossly intact - Labs CBC & Chem 7: 10/23/22 08:29 10/23/22 08:29 Labs: Abnormal Lab Results - Last 24 Hours (Table) 10/23/22 10/23/22 Range/Units 11:52 17:07 POC Glucose (mg/dL) 212 H 212 H (70-110) mg/dL Assessment and Plan Assessment: 1. Acute kidney injury associated with hemodynamic instability and hemodynamic ATN. Currently nonoliguric. Component of obstructive uropathy and urine retention, status post Jacobs catheter placement. Patient did have a Jacobs catheter during his last admission on 10/02/2022 as well. Ultrasound on 10/02/2022 did not show any significant hydronephrosis. UA shows WBCs 157 trace protein. Renal function worsened with hypotension but cr is stable now. 2. A. fib with RVR s/p Cardizem drip 3. Hyperkalemia associated with acute kidney injury and use of Aldactone, and urine retention. No active GI bleeding noted. 4. Mild non-gap metabolic acidosis associated with acute kidney injury 5. Acute thoracic vertebral fracture 6. CK D NKF stage IIIa with baseline creatinine around 1.3-1.5 mg/dL 7. Pyuria with urine culture showing no growth. Plan: Continue entresto OK for discharge F/U as out patient in 1-2 weeks.
[2022-11-01] MEDS ORDERED: ERGOCALCIFEROL 1,250 MCG (50,000 IU) CAPSULE PO SCH (09:00)
== END 2022-10-23 20:42 | DRG 477 ==
LOC: EC 18:05 → 3SCARD 21:18
PROVIDERS: ADMIT Internal Medicine; ATTEND Internal Medicine
PROC: 0QU00JZ Supplement Lumbar Vertebra with Synthetic Substitute, Open Approach (ICD-10-PCS; 2022-10-20)
PROC: 0QS004Z Reposition Lumbar Vertebra with Internal Fixation Device, Open Approach (ICD-10-PCS; 2022-10-20)
PROC: XNU4356 Supplement Thoracic Vertebra with Mechanically Expandable (Paired) Synthetic Substitute, Percutaneous Approach, New Technology Group 6 (ICD-10-PCS; 2022-10-20)
PROC: 0PB40ZX Excision of Thoracic Vertebra, Open Approach, Diagnostic (ICD-10-PCS; 2022-10-20)
PROC: 0PU40JZ Supplement Thoracic Vertebra with Synthetic Substitute, Open Approach (ICD-10-PCS; 2022-10-20)
PROC: 0PS404Z Reposition Thoracic Vertebra with Internal Fixation Device, Open Approach (ICD-10-PCS; 2022-10-20)
PROC: XNU4356 Supplement Thoracic Vertebra with Mechanically Expandable (Paired) Synthetic Substitute, Percutaneous Approach, New Technology Group 6 (ICD-10-PCS; 2022-10-20)
PROC: 0QB00ZX Excision of Lumbar Vertebra, Open Approach, Diagnostic (ICD-10-PCS; principal; 2022-10-20 12:25)
DX: S22.061A Stable burst fracture of T7-T8 vertebra, initial encounter for closed fracture (principal); Z00.6 Encounter for examination for normal comparison and control in clinical research program; N17.0 Acute kidney failure with tubular necrosis; I13.0 Hypertensive heart and chronic kidney disease with heart failure and stage 1 through stage 4 chronic kidney disease, or unspecified chronic kidney disease; I50.22 Chronic systolic (congestive) heart failure; M48.56XA Collapsed vertebra, not elsewhere classified, lumbar region, initial encounter for fracture; I48.20 Chronic atrial fibrillation, unspecified; E87.20 Acidosis, unspecified; E87.1 Hypo-osmolality and hyponatremia; I45.2 Bifascicular block; N39.0 Urinary tract infection, site not specified; E11.22 Type 2 diabetes mellitus with diabetic chronic kidney disease; J44.9 Chronic obstructive pulmonary disease, unspecified; N18.31 Chronic kidney disease, stage 3a; M48.04 Spinal stenosis, thoracic region; I95.9 Hypotension, unspecified; D53.9 Nutritional anemia, unspecified; E78.5 Hyperlipidemia, unspecified; I25.10 Atherosclerotic heart disease of native coronary artery without angina pectoris; N13.9 Obstructive and reflux uropathy, unspecified; R33.8 Other retention of urine; E87.5 Hyperkalemia; E86.0 Dehydration; G89.29 Other chronic pain; W19.XXXA Unspecified fall, initial encounter; R53.81 Other malaise; S20.229A Contusion of unspecified back wall of thorax, initial encounter; Z95.5 Presence of coronary angioplasty implant and graft; Z87.39 Personal history of other diseases of the musculoskeletal system and connective tissue; Z79.899 Other long term (current) drug therapy; Z79.01 Long term (current) use of anticoagulants; Z79.84 Long term (current) use of oral hypoglycemic drugs; Z79.1 Long term (current) use of non-steroidal anti-inflammatories (NSAID); Z79.02 Long term (current) use of antithrombotics/antiplatelets; Z86.16 Personal history of COVID-19; Z87.891 Personal history of nicotine dependence
CPT/HCPCS: 36415; 71045; 71046; 72100; 72128; 72131; 80048; 80053; 81001; 82607; 82746; 83605; 83735; 83880; 84484; 85025; 85027; 85610; 85730; 86850; 86900; 86901; 87086; 88307; 88311; 93005; 94760; 96365; 96375; 99291

== ENCOUNTER → 2022-11-19 | Outpatient (CLI) | payer OTHER ==
--- NOTE | 2022-11-19 11:50 | XR ---
EXAMINATION TYPE: XR thoracic spine complete DATE OF EXAM: 11/19/2022 COMPARISON: NONE HISTORY: Pain TECHNIQUE: 3 views submitted FINDINGS: Alignment is anatomic. There is no compression deformities. Postsurgical change with multilevel comp ression deformities and evidence of previous vertebral plasty. Heart is enlarged and there is a cardi ac device. Atherosclerotic change aorta. IMPRESSION: 1. There are multiple compression deformities and also evidence of multilevel surgical change includi ng vertebral plasty. Exam limited due to motion artifact. Compression deformities are of indeterminat e age and should be correlated with CT scan if there is concern for acute injury. 2. Multilevel degenerative disc disease.
== END | disposition home or self-care (01) ==
LOC: RADXRMAIN 10:38
PROVIDERS: ATTEND Emergency Medicine
DX: M51.34 Other intervertebral disc degeneration, thoracic region (principal); M43.8X4 Other specified deforming dorsopathies, thoracic region; G95.29 Other cord compression
CPT/HCPCS: 72072

== ENCOUNTER 2022-12-14 16:15 | Inpatient (IN) | payer OTHER ==
[2022-12-14] MEDS ORDERED: SODIUM CHLORIDE 0.9% 1,000 ML IV STA (16:46)
--- NOTE | 2022-12-14 16:50 | ED ---
General Adult HPI - General Chief complaint: Arrhythmia/Palpitations Stated complaint: Tachycardia Time Seen by Provider: 12/14/22 16:33 Source: patient, RN notes reviewed Limitations: no limitations - History of Present Illness Initial comments: Patient is a pleasant 72-year-old male [facility] Patient was sent for concern for tachycardia. They were wondering if patient could have infection. Patient states he feels fine and has no complaints. Patient reportedly has history of chronic confusion. Patient states he does not feel confused. Further history is limited as patient is a poor historian. - Related Data Home Medications Medication Instructions Recorded Confirmed Ferrous Sulfate [Iron] 325 mg PO DAILY@169910/21/20 12/14/22 Sertraline HCl [Zoloft] 50 mg PO HS@209910/21/20 12/14/22 allopurinoL [Zyloprim] 100 mg PO DAILY@79910/21/20 12/14/22 risperiDONE [RisperDAL] 0.5 mg PO HS@209910/21/20 12/14/22 Apixaban [Eliquis] 5 mg PO BID@0800,1700 05/09/21 12/14/22 Thiamine HCl [Vitamin B-1] 100 mg PO DAILY@0800 05/09/21 12/14/22 Amiodarone [Cordarone] 200 mg PO DAILY@0800 02/06/22 12/14/22 Loratadine [Claritin] 10 mg PO DAILY@0800 02/06/22 12/14/22 Mv-Min/Folic/K1/Lycopen/Lutein 1 tab PO DAILY@0 02/06/22 12/14/22 [Centrum Silver Men Tablet] glipiZIDE [Glucotrol] 5 mg PO BID@0800,1700 02/06/22 12/14/22 Acetaminophen Tab [Tylenol] 1,000 mg PO TID@0800,1400,2200 10/01/22 12/14/22 Sacubitril/Valsartan [Entresto 24 1 tab PO BID@0800,1700 10/01/22 12/14/22 mg-26 mg Tablet] Atorvastatin [Lipitor] 40 mg PO HS@209910/16/22 12/14/22 Clopidogrel [Plavix] 75 mg PO DAILY@0800 10/16/22 12/14/22 Ergocalciferol (Vitamin D2) 1,250 mcg PO QMONTHLY 10/17/22 12/14/22 [Drisdol (50,000 Iu)] Lidocaine 5% Patch [Lidoderm 5% 1 patch TOPICAL DAILY 10/17/22 12/14/22 Patch] Acetaminophen [Tylenol] 650 mg PO Q4H PRN 12/14/22 12/14/22 Cholecalciferol [Vitamin D3 (25 50 mcg PO DAILY@0800 12/14/22 12/14/22 Mcg = 1000 Iu)] Cyclobenzaprine [Flexeril] 5 mg PO TID@0600,1400,2200 12/14/22 12/14/22 Furosemide [Lasix] 40 mg PO BID@0800,1400 12/14/22 12/14/22 Ipratropium-Albuterol Nebulize 3 ml INHALATION RT-Q6H PRN 12/14/22 12/14/22 [Duoneb 0.5 mg-3 mg/3 ml Soln] Magnesium Hydroxide [Milk of 7,200 mg PO Q48H PRN 12/14/22 12/14/22 Magnesia Concentrate] Metoprolol Succinate (ER) [Toprol 150 mg PO BID@0800,2000 12/14/22 12/14/22 XL] Na Phos,M-B/Na Phos,Di-Ba [Fleet 133 ml RECTAL DAILY PRN 12/14/22 12/14/22 Adult] Potassium Chloride ER [K-Dur 20] 20 meq PO DAILY@0800 12/14/22 12/14/22 Sodium Bicarbonate Tab 650 mg PO BID@0800,1700 12/14/22 12/14/22 bisacodyL [Dulcolax] 10 mg RECTAL DAILY PRN 12/14/22 12/14/22 oxyBUTYnin chloride [oxyBUTYnin 5 mg PO DAILY@0800 12/14/22 12/14/22 chloride ER] Previous Rx's Medication Instructions Recorded HYDROcodone/APAP 7.5-325MG [Dorris 1 tab PO Q6HR PRN #21 tab 10/23/22 7.5-325] Allergies Allergy/AdvReac Type Severity Reaction Status Date / Time No Known Allergies Allergy Verified 12/14/22 18:41 Review of Systems ROS Statement: Those systems with pertinent positive or pertinent negative responses have been documented in the HPI. ROS Other: All systems not noted in ROS Statement are negative. Constitutional: Denies: fever Respiratory: Denies: dyspnea Cardiovascular: Reports: as per HPI Past Medical History Past Medical History: Atrial Fibrillation, Coronary Artery Disease (CAD), Heart Failure, Diabetes Mellitus, Hyperlipidemia, Hypertension Additional Past Medical History / Comment(s): See Dr Piedra's H&P. "Feet cold sometimes". Gout. Hx UTI and kidney infection with Covid. History of Any Multi-Drug Resistant Organisms: None Reported Past Surgical History: Heart Catheterization With Stent, Orthopedic Surgery, Pacemaker Additional Past Surgical History / Comment(s): 2 STENTS DEC 2020, left hip surgery X2. Past Anesthesia/Blood Transfusion Reactions: No Reported Reaction, Postoperative Nausea & Vomiting (PONV) Additional Past Anesthesia/Blood Transfusion Reaction / Comment(s): UNKNOWN FAMILY HX. Date of Last Stent Placement:: DEC 2020 Type of Cardiac Device: Unknown Device Placement Date:: Unknown Past Psychological History: Anxiety, Depression Smoking Status: Former smoker Past Alcohol Use History: None Reported Past Drug Use History: None Reported - Past Family History Mother Family Medical History: Cancer Brother(s) Family Medical History: Cancer Additional Family Medical History / Comment(s): Lung cancer. Father History Unknown: Yes Family Medical History: Hyperlipidemia General Exam Limitations: altered mental status General appearance: alert, in no apparent distress Head exam: Present: normocephalic Eye exam: Present: normal appearance Neck exam: Present: normal inspection Respiratory exam: Present: normal lung sounds bilaterally Cardiovascular Exam: Present: tachycardia GI/Abdominal exam: Present: soft. Absent: tenderness Extremities exam: Present: pedal edema Neurological exam: Present: alert, oriented X3 Psychiatric exam: Present: normal affect, normal mood Skin exam: Present: normal color Course Vital Signs 12/14/22 12/14/22 12/14/22 16:40 16:52 18:09 Temperature 100.1 F H Pulse Rate 125 H 129 H 117 H Respiratory 26 H 32 H 20 Rate Blood Pressure 102/86 117/72 O2 Sat by Pulse 94 L 94 L 94 L Oximetry 12/14/22 12/14/22 12/14/22 18:26 19:13 19:30 Temperature Pulse Rate 120 H 114 H 114 H Respiratory 18 20 Rate Blood Pressure 93/68 118/93 118/93 O2 Sat by Pulse 20 L 96 94 L Oximetry - Reevaluation(s) Reevaluation #1: 12/14/22 21:20 There is concern for possible sepsis. Blood cultures and lactic acid and IV and will be started. Patient will not be provided with fluid bolus secondary to CHF is a current problem. EKG Findings - EKG Results: EKG: interpreted by [facility] (Atrial flutter with RVR. Right bundle branch block. Inferior T wave inversion. Right axis.) Procedures - Central Line Placement Right SC Consent Obtained: verbal consent, emergent situation Patient Placed on Monitor/Pulse Ox: Yes MD Prep: mask, gown, gloves Central Line Prep: Chlorhexidine scrub Local Anesthesia Used: Lidocaine 1% Amount of Anesthesia Used (mls): 2 Complications: none, other (Unable to obtain subclavian vein access.) Right Femoral Consent Obtained: verbal consent, emergent situation Patient Placed on Monitor/Pulse Ox: Yes MD Prep: mask, gown, gloves Central Line Prep: Chlorhexidine scrub Local Anesthesia Used: Lidocaine 1% Amount of Anesthesia Used (mls): 2 Ultrasound Used for Placement: Yes Central Line Lumen Inserted: triple Bloods Obtained for Lab: Yes Central Line Position: good blood return, sutured in place with 3-0 nylon Dressing Applied: Tegaderm Patient Tolerated Procedure: well Complications: none Medical Decision Making - Medical Decision Making Despite waiting over 3 and half hours now for chemistry this is still pending. Lab has been notified and states they're still working on this Was pt. sent in by a medical professional or institution ([facility], [facility], urgent care, hospital, or [facility]...) When possible be specific @ -Patient was sent from nursing facility Did you speak to anyone other than the patient for history (EMS, parent, family, police, friend...)? What history was obtained from this source @ -No Did you review nursing and triage notes (agree or disagree)? Why? @ -I reviewed and agree with nursing and triage notes Were old charts reviewed (outside hosp., previous admission, EMS record, old EKG, old radiological studies, urgent care reports/EKG's, [facility] records)? Report findings @ -Review transfer papers from nursing facility Differential Diagnosis (chest pain, altered mental status, abdominal pain women, abdominal pain men, vaginal bleeding, weakness, fever, dyspnea, syncope, headache, dizziness, GI bleed, back pain, seizure, CVA, palpatations, mental health, musculoskeletal)? @ -Differential Palpitations Ventricular arrhythmias, atrial arrhythmias, myocardial infarction, anemia, thyrotoxicosis, electrolyte imbalance, hypokalemia, pulmonary embolism, pulmonary disease, drugs, alcohol, anxiety, stress.... This is not meant to be an all-inclusive list. EKG interpreted by me (3pts min.). @ -As above X-rays interpreted by me (1pt min.). @ -Chest x-ray concerning for CHF CT interpreted by me (1pt min.). @ -None done U/S interpreted by me (1pt. min.). @ -None done What testing was considered but not performed or refused? (CT, X-rays, U/S, labs)? Why? @ -None What meds were considered but not given or refused? Why? @ -None Did you discuss the management of the patient with other professionals (professionals i.e. , PA, [employer], lab, RT, psych nurse, social media coordinator, iron worker apprentice, teacher, sheriff's officer, director of casework department)? Give summary @ -Case was discussed with Dr. Kaufman, who will admit covered Dr. Alvarez Was smoking cessation discussed for >3mins.? @ -No Was critical care preformed (if so, how long)? @ -33 minutes critical care time Were there social determinants of health that impacted care today? How? (Homelessness, low income, unemployed, alcoholism, drug addiction, transport ation, low edu. Level, literacy, decrease access to med. care, longterm, rehab)? @ -No Was there de-escalation of care discussed even if they declined (Discuss DNR or withdrawal of care, Hospice)? DNR status @ -No What co-morbidities impacted this encounter? (DM, HTN, Smoking, COPD, CAD, Cancer, CVA, ARF, Chemo, Hep., AIDS, mental health diagnosis, sleep apnea, morbid obesity)? @ -None Was patient admitted / discharged? Hospital course, mention meds given and route, prescriptions, significant lab abnormalities, going to OR and other pertinent info. @ -Patient reevaluated. Patient will be admitted with consult placed for cardiology. Patient has A. fib with RVR. Cardizem drip has been started. Patient will need some diuresis. Patient also has urinary tract infection and cover with antibiotics for this. Undiagnosed new problem with uncertain prognosis? @ -No Drug Therapy requiring intensive monitoring for toxicity (Heparin, Nitro, Insulin, Cardizem)? @ -No Were any procedures done? @ -No Diagnosis/symptom? @ -A. fib with RVR, CHF, UTI Acute, or Chronic, or Acute on Chronic? @ -Acute, acute, acute Uncomplicated (without systemic symptoms) or Complicated (systemic symptoms)? @ -default Side effects of treatment? @ -No Exacerbation, Progression, or Severe Exacerbation? @ -No Poses a threat to life or bodily function? How? (Chest pain, USA, MS, pneumonia, PE, COPD, DKA, ARF, appy, cholecystitis, CVA, Diverticulitis, Homicidal, Suicidal, threat to staff... and all critical care pts) @ -No - Lab Data Result diagrams: 12/14/22 17:38 Lab Results 12/14/22 12/14/22 12/14/22 Range/Units 17:38 17:38 17:38 WBC 16.7 H (3.8-10.6) k/uL RBC 3.24 L (4.30-5.90) m/uL Hgb 10.9 L (13.0-17.5) gm/dL Hct 34.4 L (39.0-53.0) % MCV 106.0 H (80.0-100.0) fL MCH 33.4 (25.0-35.0) pg MCHC 31.6 (31.0-37.0) g/dL RDW 17.9 H (11.5-15.5) % Plt Count 278 (150-450) k/uL MPV 8.3 Neutrophils % 91 % Lymphocytes % 3 % Monocytes % 5 % Eosinophils % 0 % Basophils % 0 % Neutrophils # 15.3 H (1.3-7.7) k/uL Lymphocytes # 0.4 L (1.0-4.8) k/uL Monocytes # 0.9 (0-1.0) k/uL Eosinophils # 0.0 (0-0.7) k/uL Basophils # 0.0 (0-0.2) k/uL Hypochromasia Marked Poikilocytosis Moderate Anisocytosis Slight Macrocytosis Marked A PT 14.3 H (9.0-12.0) sec INR 1.4 H (<1.2) APTT 40.8 H (22.0-30.0) sec Urine Color Red Urine Appearance Turbid (Clear) Urine pH 7.5 (5.0-8.0) Ur Specific [place] 1.025 (1.001-1.035) Urine Protein 3+ H (Negative) Urine Glucose (UA) Negative (Negative) Urine Ketones Negative (Negative) Urine Blood Large H (Negative) Urine Nitrite Negative (Negative) Urine Bilirubin Negative (Negative) Urine Urobilinogen <2.0 (<2.0) mg/dL Ur Leukocyte Esterase Large H (Negative) Urine RBC >182 H (0-5) /hpf Urine WBC >182 H (0-5) /hpf Urine WBC Clumps Many H (None) /hpf Urine Bacteria Many H (None) /hpf Critical Care Time Critical Care Time: Yes Total Critical Care Time: 33 Disposition Clinical Impression: UTI (urinary tract infection), Congestive heart failure Disposition: ADMITTED IP TO THIS HOSP Is patient prescribed a controlled substance at d/c from ED?: No Referrals: None,Stated [REFERRING] - 1-2 days Time of Disposition: 21:18
[2022-12-14] MEDS ORDERED: DILTIAZEM 125 MG in SODIUM CHLORIDE 0.9% 100 ML IV SCH ×2 (17:00→23:15)
--- NOTE | 2022-12-14 18:26 | XR ---
EXAMINATION TYPE: XR chest 1V portable DATE OF EXAM: 12/14/2022 6:12 PM CLINICAL INDICATION:Male, 72 years old with history of Tachycardia; [facility] COMPARISON: Chest radiographs f10/21/2022 TECHNIQUE: XR chest 1V portable Frontal view of the chest. FINDINGS: Lungs/Pleura: No evidence of focal consolidation or pneumothorax. Blunting of the costophrenic angles is present. Pulmonary vascularity: Mild pulmonary vascular congestion. Heart/mediastinum: Cardiomediastinal silhouette is enlarged and stable. Two lead cardiac conduction d evice overlying the left hemithorax with lead tips projecting over the right ventricle and right atri um. Musculoskeletal: No acute osseous pathology. There is lower spine fixation hardware is present. Verte broplasty changes. Other findings: None IMPRESSION: Cardiomegaly, pulmonary vascular congestion and bilateral pleural effusions. Correlate with BNP for c ongestive heart failure.
[2022-12-14 18:57] LABS: Appearance,Urine Turbid (Clear); Bacteria,Urine Many /hpf; Bilirubin,Urine Negative (Negative); Blood,Urine Large (Negative); Color,Urine Red; Glucose,Urine (UA) Negative (Negative); Ketones,Urine Negative (Negative); Leukocyte Esterase,Urine Large (Negative); Nitrite,Urine Negative (Negative); PH, Urine 7.5 (5.0-8.0); Protein,Urine 3+ (Negative); RBC,Urine >182 /hpf (0-5); Urobilinogen,Urine <2.0 mg/dL (<2.0); WBC,Urine >182 /hpf (0-5)
[2022-12-14 19:18] LABS: Anisocytosis Slight; Basophils % (A) 0 %; Eosinophils % (A) 0 %; HCT 34.4 % (39.0-53.0); HGB 10.9 gm/dL (13.0-17.5); Hypochromasia Marked; Lymphocytes # (A) 0.4 k/uL (1.0-4.8); Lymphocytes % (A) 3 %; MCH 33.4 pg (25.0-35.0); MCHC 31.6 g/dL (31.0-37.0); Macrocytosis Marked; Mean Platelet Volume 8.3; Monocytes # (A) 0.9 k/uL (0-1.0); Monocytes % (A) 5 %; Neutrophils # (A) 15.3 k/uL (1.3-7.7); Neutrophils % (A) 91 %; Platelet Count 278 k/uL (150-450); Poikilocytosis Moderate; RBC 3.24 m/uL (4.30-5.90); RDW 17.9 % (11.5-15.5); WBC 16.7 k/uL (3.8-10.6)
[2022-12-14 19:22] LABS: INR 1.4 (<1.2); Partial Thromboplastin Time 40.8 sec (22.0-30.0); Prothrombin Time 14.3 sec (9.0-12.0)
[2022-12-14 19:38] LABS: Specific Gravity,Urine 1.025 (1.001-1.035)
--- NOTE | 2022-12-14 19:40 | XR ---
EXAMINATION TYPE: XR chest 1V portable DATE OF EXAM: 12/14/2022 7:23 PM CLINICAL INDICATION:Male, 72 years old with history of central line attempt; [facility] COMPARISON: Chest radiographs from TECHNIQUE: XR chest 1V portable Frontal view of the chest. FINDINGS: EXAMINATION TYPE: XR chest 1V portable DATE OF EXAM: 12/14/2022 7:23 PM CLINICAL INDICATION:Male, 72 years old with history of central line attempt; COMPARISON: Chest radiographs f10/21/2022 TECHNIQUE: XR chest 1V portable Frontal view of the chest. FINDINGS: Lungs/Pleura: No evidence of focal consolidation or pneumothorax. Blunting of the costophrenic angles is present. Pulmonary vascularity: Mild pulmonary vascular congestion. Heart/mediastinum: Cardiomediastinal silhouette is enlarged and stable. Two lead cardiac conduction d evice overlying the left hemithorax with lead tips projecting over the right ventricle and right atri um. Musculoskeletal: No acute osseous pathology. There is lower spine fixation hardware is present. Verte broplasty changes. Other findings: None IMPRESSION: 1. No evidence for pneumothorax. No central venous catheter visualized. 2. Cardiomegaly, pulmonary vascular congestion and bilateral pleural effusions. Correlate with BNP f or congestive heart failure.
[2022-12-14 21:20] LABS: ALT 25 U/L (4-49); AST 32 U/L (17-59); African American GFR (CKD) 51 (>60 ml/min/1.73 sqM); Albumin 3.3 g/dL (3.5-5.0); Alkaline Phosphatase 103 U/L (38-126); Anion Gap 16 mmol/L; Blood Urea Nitrogen 58 mg/dL (9-20); Calcium 8.9 mg/dL (8.4-10.2); Carbon Dioxide 23 mmol/L (22-30); Chloride 99 mmol/L (98-107); Glucose 240 mg/dL (74-99); Non-African American GFR(CKD) 44 (>60 ml/min/1.73 sqM); Potassium 5.2 mmol/L (3.5-5.1); Sodium 138 mmol/L (137-145); Total Bilirubin 0.5 mg/dL (0.2-1.3); Total Protein 8.3 g/dL (6.3-8.2)
[2022-12-14] MEDS ORDERED: ASPIRIN 325 MG TAB PO STA (21:23)
[2022-12-14] MEDS: FUROSEMIDE 10 MG/ML 4 ML VIAL IV SCH (21:53)
[2022-12-14 22:37] LABS: NT-Pro-B-Type Natriuretic Pept 24000 pg/mL
[2022-12-14 22:58] LABS: Glucose,Whole Blood 213 mg/dL (70-110)
[2022-12-14 23:30] LABS: ABG Base Excess 4.1 mmol/L; ABG HCO3 29 mmol/L (21-25); ABG Oxygen Saturation 97.3 % (94-97); ABG PCO2 45 mmHg (35-45); ABG PH 7.41 (7.35-7.45); ABG PO2 181 mmHg (83-108); ABG TCO2 30 mmol/L (19-24); Allen Test Performed? Yes
[2022-12-14] MEDS ORDERED: AMIODARONE 360 MG in DEXTROSE 5% IN WATER 200 ML IV ONE ×2 (23:45)
[2022-12-14] MEDS: NOREPINEPHRINE 4 MG in SODIUM CHLORIDE 0.9% 250 ML IV SCH (23:52)
[2022-12-15] MEDS ORDERED: NITROGLYCERIN OINT 1 INCH/GM PACKET TOPICAL SCH
--- NOTE | 2022-12-15 02:10 | P.CNPUL ---
History of Present Illness Consult date: 12/15/22 Requesting physician: Damian Kaufman Reason for consult: other (ICU management) Chief complaint: Altered mental status, tachycardia History of present illness: I am seeing this patient in new consultation today 12/15/2022 on the cardiac stepdown unit after an A-team was called overhead. Patient is a 72-year-old white male with past medical history significant for paroxysmal atrial fibrillation, coronary artery disease with prior coronary stents, heart failure, V-tach s/p AICD, diabetes mellitus, hyperlipidemia, hypertension. Patient was brought into the emergency room yesterday afternoon from his extended care facility. I am told that he stays at [facility], and that he was found to be co nfused and tachycardic on rounds at the outside facility. While in the emergency room, he was found to be in atrial fibrillation with rapid ventricular rate. He has chronic atrial fibrillation. He was started on Cardizem 5 mg per hour for rate control. Urinalysis is also concerning for UTI and urosepsis. He has been started on Rocephin. CBC on arrival showed some leukocytosis with a WBC count of 16.7, hemoglobin 10.9, hematocrit 34.4, platelets 278. BMP on arrival showed a sodium of 138, potassium 5.2, chloride 99, serum bicarbonate 23, BUN 58, creatinine 1.54, glucose 240. There is a component of acute kidney injury. NT proBNP was also elevated at 24,000. Chest x-ray on arrival showed cardiomegaly with pulmonary vascular congestion, and small bilateral pleural effusions concerning for CHF exacerbation. Patient has known history of systolic heart failure with a left ventricular ejection fraction of 35-40%, along with moderate mitral and tricuspid regurgitation with moderate pulmonary hypertension. Patient has been started on Lasix 40 mg 3 times a day. Patient was originally admitted to the cardiac stepdown unit. On my evaluation, the patient is currently in room 367. He is minimally responsive to sternal rub. He is tachypneic and tachycardic. Cardizem is still infusing at 5 mg per hour. He is in some respiratory distress, and was placed on the BiPAP with settings of 12/6 and FiO2 of 60%. ABGs show pO2 of 181, pCO2 45, pH of 7.41 on these settings. Patient was ultimately transferred to the intensive care unit for closer monitoring. While in ICU, his blood pressure did become hypotensive and he was started on low-dose norepinephrine which is currently infusing at 0.03 mics per kilogram per minute. Cardizem was stopped due to hypotension, and switch to amiodarone per protocol. He is still confused, but is more alert to verbal and painful stimuli. Patient will be monitored in the intensive care unit. Review of Systems ROS unobtainable: due to mental status Past Medical History Past Medical History: Atrial Fibrillation, Coronary Artery Disease (CAD), Heart Failure, Diabetes Mellitus, Hyperlipidemia, Hypertension Additional Past Medical History / Comment(s): See Dr Piedra's H&P. "Feet cold sometimes". Gout. Hx UTI and kidney infection with Covid. History of Any Multi-Drug Resistant Organisms: None Reported Past Surgical History: Heart Catheterization With Stent, Orthopedic Surgery, Pacemaker Additional Past Surgical History / Comment(s): 2 STENTS DEC 2020, left hip surgery X2. Past Anesthesia/Blood Transfusion Reactions: No Reported Reaction, Postoperative Nausea & Vomiting (PONV) Additional Past Anesthesia/Blood Transfusion Reaction / Comment(s): UNKNOWN FAMILY HX. Date of Last Stent Placement:: DEC 2020 Type of Cardiac Device: Unknown Device Placement Date:: Unknown Past Psychological History: Anxiety, Depression Smoking Status: Former smoker Past Alcohol Use History: None Reported Additional Past Alcohol Use History / Comment(s): QUIT SMOKING AT LEAST 11 YRS AGO. Past Drug Use History: None Reported - Past Family History Mother Family Medical History: Cancer Brother(s) Family Medical History: Cancer Additional Family Medical History / Comment(s): Lung cancer. Father History Unknown: Yes Family Medical History: Hyperlipidemia Medications and Allergies Home Medications Medication Instructions Recorded Confirmed Type RX: Ferrous Sulfate [Iron] 325 mg PO DAILY@1700 10/21/20 12/14/22 History RX: Sertraline HCl [Zoloft] 50 mg PO HS@209910/21/20 12/14/22 History RX: allopurinoL [Zyloprim] 100 mg PO DAILY@0800 10/21/20 12/14/22 History RX: risperiDONE [RisperDAL] 0.5 mg PO HS@209910/21/20 12/14/22 History RX: Apixaban [Eliquis] 5 mg PO BID@0800,1700 05/09/21 12/14/22 History RX: Thiamine HCl [Vitamin B-1] 100 mg PO DAILY@0800 05/09/21 12/14/22 History RX: Amiodarone [Cordarone] 200 mg PO DAILY@0800 02/06/22 12/14/22 History RX: Loratadine [Claritin] 10 mg PO DAILY@0800 02/06/22 12/14/22 History RX: Mv-Min/Folic/K1/Lycopen/Lutein 1 tab PO DAILY@1700 02/06/22 12/14/22 History [Centrum Silver Men Tablet] RX: glipiZIDE [Glucotrol] 5 mg PO BID@0800,1700 02/06/22 12/14/22 History RX: Acetaminophen Tab [Tylenol] 1,000 mg PO TID@0800,1400,2200 10/01/22 12/14/22 History RX: Sacubitril/Valsartan [Entresto 1 tab PO BID@0800,1700 10/01/22 12/14/22 History 24 mg-26 mg Tablet] RX: Atorvastatin [Lipitor] 40 mg PO HS@2100 10/16/22 12/14/22 History RX: Clopidogrel [Plavix] 75 mg PO DAILY@0800 10/16/22 12/14/22 History RX: Ergocalciferol (Vitamin D2) 1,250 mcg PO QMONTHLY 10/17/22 12/14/22 History [Drisdol (50,000 Iu)] RX: Lidocaine 5% Patch [Lidoderm 1 patch TOPICAL DAILY 10/17/22 12/14/22 History 5% Patch] HYDROcodone/APAP 7.5-325MG [[place] 1 tab PO Q6HR PRN #21 tab 10/23/22 12/14/22 Rx 7.5-325] Acetaminophen [Tylenol] 650 mg PO Q4H PRN 12/14/22 12/14/22 History Cholecalciferol [Vitamin D3 (25 50 mcg PO DAILY@0800 12/14/22 12/14/22 History Mcg = 1000 Iu)] Cyclobenzaprine [Flexeril] 5 mg PO TID@0600,1400,2200 12/14/22 12/14/22 History Ipratropium-Albuterol Nebulize 3 ml INHALATION RT-Q6H PRN 12/14/22 12/14/22 History [Duoneb 0.5 mg-3 mg/3 ml Soln] Magnesium Hydroxide [Milk of 7,200 mg PO Q48H PRN 12/14/22 12/14/22 History Magnesia Concentrate] Na Phos,M-B/Na Phos,Di-Ba [Fleet 133 ml RECTAL DAILY PRN 12/14/22 12/14/22 History Adult] Potassium Chloride ER [K-Dur 20] 20 meq PO DAILY@0800 12/14/22 12/14/22 History RX: Furosemide [Lasix] 40 mg PO BID@0800,1400 12/14/22 12/14/22 History RX: Metoprolol Succinate (ER) 150 mg PO BID@0800,2000 12/14/22 12/14/22 History [Toprol XL] RX: Sodium Bicarbonate Tab 650 mg PO BID@0800,1700 12/14/22 12/14/22 History bisacodyL [Dulcolax] 10 mg RECTAL DAILY PRN 12/14/22 12/14/22 History oxyBUTYnin chloride [oxyBUTYnin 5 mg PO DAILY@0800 12/14/22 12/14/22 History chloride ER] Allergies Allergy/AdvReac Type Severity Reaction Status Date / Time No Known Allergies Allergy Verified 12/14/22 18:41 Physical Exam Vitals: Vital Signs Temp Pulse Pulse Resp BP Pulse Ox FiO2 12/15/22 01:00 142 H 16 96/76 95 12/15/22 00:50 128 H 29 H 96/76 98 12/15/22 00:49 40 12/15/22 00:40 133 H 26 H 83/69 97 12/15/22 00:30 118 H 24 103/68 97 12/15/22 00:20 116 H 22 103/68 98 12/15/22 00:10 125 H 16 75/57 97 12/15/22 00:00 97.8 F 118 H 34 H 98/63 98 40 12/14/22 23:50 126 H 40 H 98/63 98 12/14/22 23:40 122 H 28 H 87/55 100 12/14/22 23:35 126 H 12/14/22 23:33 40 12/14/22 23:30 120 H 32 H 103/74 12/14/22 23:20 136/51 12/14/22 23:10 133 H 12/14/22 23:05 100 12/14/22 23:00 136/51 12/14/22 22:50 136/51 12/14/22 22:40 147 H 137/98 95 12/14/22 22:30 137 H 114/91 94 L 12/14/22 22:20 129 H 114/91 97 12/14/22 22:10 123 H 129/88 100 12/14/22 22:00 123 H 123/89 95 12/14/22 21:30 128 H 24 114/85 95 12/14/22 21:00 120 H 24 120/97 95 12/14/22 20:30 126 H 22 120/73 94 L 12/14/22 20:00 125 H 22 129/88 95 12/14/22 19:30 114 H 118/93 94 L 12/14/22 19:13 114 H 20 118/93 96 12/14/22 18:26 120 H 18 93/68 20 L 12/14/22 18:09 117 H 20 117/72 94 L 12/14/22 16:52 129 H 32 H 102/86 94 L 12/14/22 16:40 100.1 F H 125 H 26 H 94 L Intake and Output 12/14/22 12/14/22 12/15/22 14:59 22:59 06:59 Output Total 250 Balance -250 Output: Urine 250 Other: Voiding Method Indwelling Catheter Weight 107.5 kg 107.5 kg GENERAL EXAM: Obtunded, 72-year-old obese white male, in some respiratory distress. HEAD: Normocephalic and atraumatic EYES: Normal reaction of pupils, equal size. NOSE: Clear with pink turbinates. THROAT: No erythema or exudates. NECK: No masses, no JVD. CHEST: No chest wall deformity. LUNGS: Equal air entry with markedly diminished lung sounds throughout, minimal bibasilar inspiratory crackles. Tachypneic with respiratory rate in the 30s to 40s, abdominal breathing. CVS: S1 and S2 normal with no audible murmur, irregular rhythm. No extra heart sounds. Heart rate 130 bpm. ABDOMEN: Obese abdomen, no hepatosplenomegaly, active bowel sounds, no guarding or rigidity. SPINE: No scoliosis or deformity SKIN: mottled lower extremities CENTRAL NERVOUS SYSTEM: No focal deficits, tone is normal in all 4 extremities. EXTREMITIES: There is bilateral lower extremity 2+ pitting edema. no clubbing, or cyanosis. Peripheral pulses are intact. Results - Laboratory Findings CBC and BMP: 12/14/22 17:38 12/14/22 17:38 ABG ABG pH 7.41 (7.35-7.45) 12/14/22 23:29 ABG pCO2 45 mmHg (35-45) 12/14/22 23:29 ABG pO2 181 mmHg (83-108) H 12/14/22 23:29 ABG O2 Saturation 97.3 % (94-97) H 12/14/22 23:29 PT/INR, D-dimer PT 14.3 sec (9.0-12.0) H 12/14/22 17:38 INR 1.4 (<1.2) H 12/14/22 17:38 Abnormal lab findings: Abnormal Labs 12/14/22 12/14/22 12/14/22 17:38 17:38 17:38 WBC 16.7 H RBC 3.24 L Hgb 10.9 L Hct 34.4 L MCV 106.0 H RDW 17.9 H Neutrophils # 15.3 H Lymphocytes # 0.4 L Macrocytosis Marked A PT 14.3 H INR 1.4 H APTT 40.8 H ABG pO2 ABG HCO3 ABG Total CO2 ABG O2 Saturation Potassium 5.2 H BUN 58 H Creatinine 1.54 H Glucose 240 H POC Glucose (mg/dL) Total Protein 8.3 H Albumin 3.3 L Urine Protein Urine Blood Ur Leukocyte Esterase Urine RBC Urine WBC Urine WBC Clumps Urine Bacteria 12/14/22 12/14/22 12/14/22 17:38 22:55 23:29 WBC RBC Hgb Hct MCV RDW Neutrophils # Lymphocytes # Macrocytosis PT INR APTT ABG pO2 181 H ABG HCO3 29 H ABG Total CO2 30 H ABG O2 Saturation 97.3 H Potassium BUN Creatinine Glucose POC Glucose (mg/dL) 213 H Total Protein Albumin Urine Protein 3+ H Urine Blood Large H Ur Leukocyte Esterase Large H Urine RBC >182 H Urine WBC >182 H Urine WBC Clumps Many H Urine Bacteria Many H - Diagnostic Findings Chest x-ray: image reviewed Assessment and Plan Assessment: Acute hypoxemic respiratory failure, currently on BiPAP, secondary to systolic CHF exacerbation. Chest x-ray on arrival shows cardiomegaly, pulmonary vascular congestion, and bilateral pleural effusions concerning for CHF exacerbation. NT proBNP was elevated at 24,000. UTI and urosepsis, currently requiring vasopressors in the form of n orepinephrine Septic shock Leukocytosis, secondary to above Acute kidney injury, creatinine 1.54 Atrial fibrillation with rapid ventricular rate History of ischemic cardiomyopathy, recent echocardiogram done September, showed a reduced ejection fraction of 35-40% along with moderate mitral and tricuspid regurgitation, moderate pulmonary hypertension. History of nonsustained ventricular tachycardia, status post AICD implantation Coronary artery disease, with prior coronary PCI Diabetes mellitus type 2 Benign essential hypertension Hyperlipidemia Obesity, with a BMI of 36 kg/m Plan: Patient's medications, labs, chest x-ray reviewed Continue BiPAP Continue Lasix Repeat chest x-ray in the morning Continue norepinephrine for hypotension and shock Discontinue Cardizem and transitioned to amiodarone per protocol restart Eliquis Cardiology has been consulted Continue empiric Rocephin Urine and blood cultures are pending Repeat labs in the morning lactic acid level 1.7 Patient has been transferred to the intensive care unit Code status needs to be clarified. Patient apparently has a public guardian. We will continue to follow, and further recommendations are forthcoming I have personally seen and examined the patient, performed the documentation and the assessment and plan as written. Number of minutes spent on the visit:20 Time with Patient: Greater than 30
[2022-12-15 05:24] LABS: Anisocytosis Slight; Basophils % (A) 0 %; Eosinophils % (A) 0 %; HCT 33.4 % (39.0-53.0); Hypochromasia Marked; Lymphocytes # (A) 0.4 k/uL (1.0-4.8); Lymphocytes % (A) 2 %; MCH 32.1 pg (25.0-35.0); MCV 106.9 fL (80.0-100.0); Macrocytosis Marked; Mean Platelet Volume 7.9; Monocytes # (A) 1.1 k/uL (0-1.0); Monocytes % (A) 5 %; Neutrophils # (A) 20.5 k/uL (1.3-7.7); Neutrophils % (A) 92 %; Platelet Count 271 k/uL (150-450); Poikilocytosis Moderate; RBC 3.13 m/uL (4.30-5.90); WBC 22.3 k/uL (3.8-10.6)
[2022-12-15 05:25] LABS: ALT 23 U/L (4-49); AST 22 U/L (17-59); African American GFR (CKD) 51 (>60 ml/min/1.73 sqM); Albumin 2.8 g/dL (3.5-5.0); Alkaline Phosphatase 91 U/L (38-126); Anion Gap 15 mmol/L; Blood Urea Nitrogen 61 mg/dL (9-20); Calcium 8.2 mg/dL (8.4-10.2); Carbon Dioxide 23 mmol/L (22-30); Chloride 99 mmol/L (98-107); Glucose 242 mg/dL (74-99); Non-African American GFR(CKD) 44 (>60 ml/min/1.73 sqM); Potassium 4.3 mmol/L (3.5-5.1); Sodium 137 mmol/L (137-145); Total Bilirubin 0.5 mg/dL (0.2-1.3); Total Protein 7.4 g/dL (6.3-8.2)
[2022-12-15] MEDS: AMIODARONE 450 MG in DEXTROSE 5% IN WATER 250 ML IV SCH ×2 (06:12)
[2022-12-15 06:50] LABS: Glucose,Whole Blood 276 mg/dL (70-110)
[2022-12-15] MEDS: INSULIN ASPART (NovoLOG) 100 UNIT/ML VIAL SQ SCH ×4 (06:53→21:50)
[2022-12-15] MEDS: FUROSEMIDE 10 MG/ML 4 ML VIAL IV SCH ×2 (06:53→21:51)
[2022-12-15] MEDS ORDERED: METOPROLOL TARTRATE 5 MG/5 ML VIAL IVP SCH (08:00)
--- NOTE | 2022-12-15 08:16 | XR ---
EXAMINATION TYPE: XR chest 1V portable DATE OF EXAM: 12/15/2022 COMPARISON: 12/14/2022 HISTORY: Shortness of breath TECHNIQUE: Single frontal view of the chest is obtained. FINDINGS: Interstitium remains prominent. Small amount of fluid or thickening of the minor fissure a nd tiny right pleural effusion. There is enlarged and is postsurgical change involving the vertebral canal. Cardiac device stable. Apical pleural thickening. Osseous structures stable IMPRESSION: Correlate for chronic interstitial lung disease stable in appearance.
[2022-12-15] MEDS: PANTOPRAZOLE 40 MG/10 ML VIAL IVP SCH (08:23)
[2022-12-15] MEDS ORDERED: DEXTROSE 50% SYRINGE 50 ML IVP PRN ×2 (10:40)
[2022-12-15 11:01] LABS: Glucose,Whole Blood 227 mg/dL (70-110)
[2022-12-15] MEDS: SACUBITRIL/VALSARTAN 24 MG-26 MG TABLET PO SCH ×2 (11:29→17:04)
[2022-12-15] MEDS: allopurinoL 100 MG TAB PO SCH (11:32)
[2022-12-15] MEDS: ASPIRIN 325 MG TAB PO SCH (11:32)
[2022-12-15] MEDS: APIXABAN 5 MG TAB PO SCH ×2 (11:32→17:13)
[2022-12-15] MEDS: OXYBUTYNIN XL 5 MG TAB.ER.24 PO SCH (11:33)
[2022-12-15] MEDS: CLOPIDOGREL 75 MG TAB PO SCH (11:35)
[2022-12-15] MEDS: THIAMINE 100 MG TAB PO SCH (11:35)
[2022-12-15] MEDS: NOREPINEPHRINE 4 MG in SODIUM CHLORIDE 0.9% 250 ML IV SCH (11:36)
--- NOTE | 2022-12-15 15:16 | P.CRDCN ---
History of Present Illness History of present illness: HISTORY OF PRESENTING ILLNESS Patient is pleasant 72-year-old male with history of persistent atrial fibrillation, CAD with prior PCI, systolic heart failure, VT status post AICD, diabetes mellitus type 2, hypertension, hyperlipidemia. Patient presents from extended care facility secondary to increased confusion. He was found to be in A. fib with RVR with heart rates in the 140s to 150s and was placed on Cardizem drip. Additionally was found to have urinary tract infection with increased white blood cell blood cells and started on antibiotics. He does have increased white blood cell count up to 16. He also has acute kidney injury with creatinine 1.5. Apparently he was more confused however was placed on BiPAP with some improvement in mentation however still unsure if some of his details. Denies any recent fevers or chills. Denies any chest pain or pressure. Admits he does have some degree of swelling however has been worsening. He was started on Lasix with good urine output. He was not tolerating oral medications and therefore IV metoprolol 2.5 mg every 6 hours was given. Additionally he was started on an amiodarone drip in addition to his oral amiodarone at home. Prior echo from September 2022 shows ejection fraction 35-40%. REVIEW OF SYSTEMS At the time of my exam: CONSTITUTIONAL: Denies fever or chills. CARDIOVASCULAR: Denies chest pain, +shortness of breath, no PND or palpitations. RESPIRATORY: Denies cough. GASTROINTESTINAL: Denies abdominal pain, diarrhea, constipation, nausea or vomiting. MUSCULOSKELETAL: Denies myalgias. NEUROLOGIC: Denies numbness, tingling or weakness. ENDOCRINE: Denies fatigue, weight change, polydipsia or polyurina. GENITOURINARY: Denies burning, hematuria or urgency with micturation. HEMATOLOGIC: Denies history of anemia or bleeding. PHYSICAL EXAMINATION Vital signs reviewed. CONSTITUTIONAL: No apparent distress, confused HEENT: Head is normocephalic. Pupils are equal, round. Sclerae anicteric. Mucous membranes of the mouth are moist. No JVD. No carotid bruit. CHEST EXAMINATION: Lungs are clear to auscultation. No chest wall tenderness is noted on palpation or with deep breathing. HEART EXAMINATION: Regular rate and rhythm. S1, S2 heard. No murmurs, gallops or rub. ABDOMEN: Soft, nontender. Positive bowel sounds. EXTREMITIES: 2+ peripheral pulses, 2+ lower extremity edema and no calf tenderness. NEUROLOGIC EXAMINATION: Patient is awake, alert and oriented x3. ASSESSMENT 1. Acute on chronic systolic heart failure 2. Altered mental status likely component of sepsis 3. Hypotension, likely component of sepsis on low-dose norepinephrine 4. Persistent A. fib with RVR 5. Hypertension 6. Cardiomyopathy ejection fraction 35-40% 7. History of coronary artery disease 8. Urinary tract infection 9. Acute kidney injury PLAN Patient remains in A. fib with RVR despite IV amiodarone and pushes of m etoprolol. We will switch to orals and add Toprol 25 mg daily. Likely uptitrate however currently hypotensive and monitor response. Vasopressors as needed. Reinitiate heart failure regimen as able. Appears volume overloaded and continue with IV diuretics. Further recommendations to follow Past Medical History Past Medical History: Atrial Fibrillation, Coronary Artery Disease (CAD), Heart Failure, Diabetes Mellitus, Hyperlipidemia, Hypertension Additional Past Medical History / Comment(s): See Dr Piedra's H&P. "Feet cold sometimes". Gout. Hx UTI and kidney infection with Covid. History of Any Multi-Drug Resistant Organisms: None Reported Past Surgical History: Heart Catheterization With Stent, Orthopedic Surgery, Pacemaker Additional Past Surgical History / Comment(s): 2 STENTS DEC 2020, left hip surgery X2. Past Anesthesia/Blood Transfusion Reactions: No Reported Reaction, Postoperative Nausea & Vomiting (PONV) Additional Past Anesthesia/Blood Transfusion Reaction / Comment(s): UNKNOWN FAMILY HX. Date of Last Stent Placement:: DEC 2020 Type of Cardiac Device: Unknown Device Placement Date:: Unknown Past Psychological History: Anxiety, Depression Smoking Status: Former smoker Past Alcohol Use History: None Reported Additional Past Alcohol Use History / Comment(s): QUIT SMOKING AT LEAST 11 YRS AGO. Past Drug Use History: None Reported - Past Family History Mother Family Medical History: Cancer Brother(s) Family Medical History: Cancer Additional Family Medical History / Comment(s): Lung cancer. Father History Unknown: Yes Family Medical History: Hyperlipidemia Medications and Allergies Home Medications Medication Instructions Recorded Confirmed Type Ferrous Sulfate [Iron] 325 mg PO DAILY@1700 10/21/20 12/14/22 History Sertraline HCl [Zoloft] 50 mg PO HS@2100 10/21/20 12/14/22 History allopurinoL [Zyloprim] 100 mg PO DAILY@0800 10/21/20 12/14/22 History risperiDONE [RisperDAL] 0.5 mg PO HS@2100 10/21/20 12/14/22 History Apixaban [Eliquis] 5 mg PO BID@0800,1700 05/09/21 12/14/22 History Thiamine HCl [Vitamin B-1] 100 mg PO DAILY@0800 05/09/21 12/14/22 History Amiodarone [Cordarone] 200 mg PO DAILY@0800 02/06/22 12/14/22 History Loratadine [Claritin] 10 mg PO DAILY@0800 02/06/22 12/14/22 History Mv-Min/Folic/K1/Lycopen/Lutein 1 tab PO DAILY@1700 02/06/22 12/14/22 History [Centrum Silver Men Tablet] glipiZIDE [Glucotrol] 5 mg PO BID@0800,1700 02/06/22 12/14/22 History Acetaminophen Tab [Tylenol] 1,000 mg PO TID@0800,1400,2200 10/01/22 12/14/22 History Sacubitril/Valsartan [Entresto 24 1 tab PO BID@0800,1700 10/01/22 12/14/22 History mg-26 mg Tablet] Atorvastatin [Lipitor] 40 mg PO HS@2100 10/16/22 12/14/22 History Clopidogrel [Plavix] 75 mg PO DAILY@0800 10/16/22 12/14/22 History Ergocalciferol (Vitamin D2) 1,250 mcg PO QMONTHLY 10/17/22 12/14/22 History [Drisdol (50,000 Iu)] Lidocaine 5% Patch [Lidoderm 5% 1 patch TOPICAL DAILY 10/17/22 12/14/22 History Patch] HYDROcodone/APAP 7.5-325MG [[place] 1 tab PO Q6HR PRN #21 tab 10/23/22 12/14/22 Rx 7.5-325] Acetaminophen [Tylenol] 650 mg PO Q4H PRN 12/14/22 12/14/22 History Cholecalciferol [Vitamin D3 (25 50 mcg PO DAILY@0800 12/14/22 12/14/22 History Mcg = 1000 Iu)] Cyclobenzaprine [Flexeril] 5 mg PO TID@0600,1400,2200 12/14/22 12/14/22 History Furosemide [Lasix] 40 mg PO BID@0800,1400 12/14/22 12/14/22 History Ipratropium-Albuterol Nebulize 3 ml INHALATION RT-Q6H PRN 12/14/22 12/14/22 History [Duoneb 0.5 mg-3 mg/3 ml Soln] Magnesium Hydroxide [Milk of 7,200 mg PO Q48H PRN 12/14/22 12/14/22 History Magnesia Concentrate] Metoprolol Succinate (ER) [Toprol 150 mg PO BID@0800,199912/14/22 12/14/22 History XL] Na Phos,M-B/Na Phos,Di-Ba [Fleet 133 ml RECTAL DAILY PRN 12/14/22 12/14/22 His tory Adult] Potassium Chloride ER [K-Dur 20] 20 meq PO DAILY@0800 12/14/22 12/14/22 History Sodium Bicarbonate Tab 650 mg PO BID@0800,1700 12/14/22 12/14/22 History bisacodyL [Dulcolax] 10 mg RECTAL DAILY PRN 12/14/22 12/14/22 History oxyBUTYnin chloride [oxyBUTYnin 5 mg PO DAILY@0800 12/14/22 12/14/22 History chloride ER] Allergies Allergy/AdvReac Type Severity Reaction Status Date / Time No Known Allergies Allergy Verified 12/14/22 18:41 Physical Exam Vitals: Vital Signs Temp Pulse Pulse Resp BP Pulse Ox FiO2 12/15/22 15:00 118 H 29 H 99/67 96 12/15/22 14:45 129 H 28 H 101/74 96 12/15/22 14:30 117 H 28 H 104/53 96 12/15/22 14:15 116 H 31 H 113/48 96 12/15/22 14:00 120 H 21 103/72 96 12/15/22 13:45 106 H 14 102/88 96 12/15/22 13:30 118 H 18 103/79 95 12/15/22 13:15 115 H 35 H 111/92 96 12/15/22 13:00 113 H 28 H 117/75 99 12/15/22 12:45 130 H 28 H 110/80 96 12/15/22 12:30 125 H 29 H 113/73 95 12/15/22 12:15 113 H 16 94/77 95 12/15/22 12:00 98.3 F 121 H 27 H 106/37 95 12/15/22 11:45 114 H 34 H 112/90 96 12/15/22 11:30 114 H 26 H 111/85 99 12/15/22 11:15 120 H 31 H 94/59 95 12/15/22 11:00 120 H 25 H 116/73 98 12/15/22 10:45 128 H 30 H 103/82 97 12/15/22 10:30 142 H 35 H 99/60 96 12/15/22 10:15 133 H 34 H 117/68 95 12/15/22 10:00 131 H 31 H 100/76 96 12/15/22 09:45 130 H 26 H 96/56 95 12/15/22 09:30 118 H 37 H 111/93 95 12/15/22 09:15 131 H 17 120/75 97 12/15/22 09:00 128 H 14 105/79 96 12/15/22 08:45 124 H 17 109/72 95 12/15/22 08:30 129 H 14 112/49 97 12/15/22 08:15 129 H 23 108/58 97 12/15/22 08:02 30 12/15/22 08:00 98.4 F 126 H 30 H 99/75 96 30 12/15/22 07:45 140 H 31 H 104/68 96 12/15/22 07:30 112 H 26 H 123/64 96 12/15/22 07:15 142 H 15 113/60 96 12/15/22 07:00 130 H 29 H 103/69 96 12/15/22 06:50 125 H 28 H 103/69 95 12/15/22 06:40 125 H 30 H 99/68 96 12/15/22 06:30 125 H 31 H 102/79 96 12/15/22 06:20 123 H 21 102/79 95 12/15/22 06:10 137 H 26 H 100/60 96 12/15/22 06:00 122 H 22 77/65 96 12/15/22 05:50 130 H 10 L 77/65 97 12/15/22 05:40 134 H 26 H 83/73 96 12/15/22 05:30 138 H 31 H 78/63 96 12/15/22 05:20 137 H 36 H 78/63 97 12/15/22 05:10 133 H 26 H 136/88 96 12/15/22 05:00 137 H 113 H 122/93 97 12/15/22 04:50 131 H 17 122/93 97 12/15/22 04:44 30 12/15/22 04:40 130 H 87 H 109/91 97 12/15/22 04:30 144 H 30 H 98/74 97 12/15/22 04:20 128 H 31 H 98/74 98 12/15/22 04:10 129 H 19 108/82 98 12/15/22 04:00 126 H 144 H 27 H 109/80 99 12/15/22 03:50 129 H 15 109/80 98 12/15/22 03:40 133 H 32 H 89/67 97 12/15/22 03:30 125 H 30 H 95/59 97 12/15/22 03:20 121 H 30 H 95/59 99 12/15/22 03:10 134 H 38 H 91/77 97 12/15/22 03:00 124 H 31 H 103/30 98 12/15/22 02:50 137 H 23 103/30 95 12/15/22 02:40 135 H 13 114/78 97 12/15/22 02:30 137 H 35 H 113/72 98 12/15/22 02:20 144 H 26 H 113/72 96 12/15/22 02:10 140 H 9 L 95/74 98 12/15/22 02:00 128 H 16 107/80 98 12/15/22 01:50 130 H 27 H 107/80 96 12/15/22 01:40 140 H 11 L 104/85 96 12/15/22 01:30 131 H 59 H 140/85 97 12/15/22 01:20 135 H 13 140/85 97 12/15/22 01:10 130 H 57 H 103/62 95 12/15/22 01:00 142 H 16 96/76 95 12/15/22 00:50 128 H 29 H 96/76 98 12/15/22 00:49 40 12/15/22 00:40 133 H 26 H 83/69 97 12/15/22 00:30 118 H 24 103/68 97 12/15/22 00:20 116 H 22 103/68 98 12/15/22 00:10 125 H 16 75/57 97 12/15/22 00:00 97.8 F 118 H 34 H 98/63 98 40 12/14/22 23:50 126 H 40 H 98/63 98 12/14/22 23:40 122 H 28 H 87/55 100 12/14/22 23:35 126 H 12/14/22 23:33 40 12/14/22 23:30 120 H 32 H 103/74 12/14/22 23:20 136/51 12/14/22 23:10 133 H 12/14/22 23:05 100 12/14/22 23:00 136/51 12/14/22 22:50 136/51 12/14/22 22:40 147 H 137/98 95 12/14/22 22:30 137 H 114/91 94 L 12/14/22 22:20 129 H 114/91 97 12/14/22 22:10 123 H 129/88 100 12/14/22 22:00 123 H 123/89 95 12/14/22 21:30 128 H 24 114/85 95 12/14/22 21:00 120 H 24 120/97 95 12/14/22 20:30 126 H 22 120/73 94 L 12/14/22 20:00 125 H 22 129/88 95 12/14/22 19:30 114 H 118/93 94 L 12/14/22 19:13 114 H 20 118/93 96 12/14/22 18:26 120 H 18 93/68 20 L 12/14/22 18:09 117 H 20 117/72 94 L 12/14/22 16:52 129 H 32 H 102/86 94 L 12/14/22 16:40 100.1 F H 125 H 26 H 94 L Intake and Output 12/15/22 12/15/22 12/15/22 06:59 14:59 22:59 Intake Total 3.686 405.543 20 Output Total 525 495 50 Balance -521.314 -89.457 -30 Intake: IV 140 20 .9 NS 140 20 Intake, IV Titration 3.686 265.543 Amount Norepinephrine 4 mg In 3.686 265.543 Sodium Chloride 0.9% 250 ml @ 0.03 MCG/KG/MIN 12. 287 mls/hr IV .[id number] [facility] Rx#:[id number] Output: Urine 525 495 50 Other: Voiding Method Indwelling Catheter Indwelling Catheter Weight 110.8 kg 110.8 kg Results 12/15/22 04:32 12/15/22 04:32 Cardiac Enzymes 12/14/22 12/15/22 12/15/22 Range/Units 17:38 00:28 04:32 AST 32 (17-59) U/L Troponin I 0.022 0.023 (0.000-0.034) ng/mL 12/15/22 Range/Units 04:32 AST 22 (17-59) U/L Troponin I (0.000-0.034) ng/mL Coagulation 12/14/22 Range/Units 17:38 PT 14.3 H (9.0-12.0) sec APTT 40.8 H (22.0-30.0) sec CBC 12/14/22 12/15/22 Range/Units 17:38 04:32 WBC 16.7 H 22.3 H (3.8-10.6) k/uL RBC 3.24 L 3.13 L (4.30-5.90) m/uL Hgb 10.9 L 10.0 L (13.0-17.5) gm/dL Hct 34.4 L 33.4 L (39.0-53.0) % Plt Count 278 271 (150-450) k/uL Comprehensive Metabolic Panel 12/14/22 12/15/22 Range/Units 17:38 04:32 Sodium 138 137 (137-145) mmol/L Potassium 5.2 H 4.3 (3.5-5.1) mmol/L Chloride 99 99 (98-107) mmol/L Carbon Dioxide 23 23 (22-30) mmol/L BUN 58 H 61 H (9-20) mg/dL Creatinine 1.54 H 1.53 H (0.66-1.25) mg/dL Glucose 240 H 242 H (74-99) mg/dL Calcium 8.9 8.2 L (8.4-10.2) mg/dL AST 32 22 (17-59) U/L ALT 25 23 (4-49) U/L Alkaline Phosphatase 103 91 (38-126) U/L Total Protein 8.3 H 7.4 (6.3-8.2) g/dL Albumin 3.3 L 2.8 L (3.5-5.0) g/dL Current Medications Generic Name Dose Route Start Last Admin Trade Name Freq PRN Reason Stop Dose Admin Acetaminophen 1,000 mg 12/15/22 14:00 Acetaminophen Tab 500 Mg Tab PO TID@0800,1400,2200 [facility] Hydrocodone Bitart/Acetaminophen 1 each 12/15/22 10:39 Hydrocodone/Apap 7.5-325mg 1 Each Tab PO Q6HR PRN Pain Allopurinol 100 mg 12/15/22 08:00 12/15/22 11:32 Allopurinol 100 Mg Tab PO 100 mg DAILY@0800 [facility] Administration Amiodarone HCl 200 mg 12/15/22 10:45 Amiodarone 200 Mg Tab PO DAILY@0800 [facility] Apixaban 5 mg 12/15/22 08:00 12/15/22 11:32 Apixaban 5 Mg Tab PO 5 mg BID@0800,1700 [facility] Administration Protocol Aspirin 325 mg 12/15/22 09:00 12/15/22 11:32 Aspirin 325 Mg Tab PO 325 mg DAILY [facility] Administration Atorvastatin Calcium 40 mg 12/15/22 21:00 Atorvastatin 40 Mg Tab PO HS@2100 [facility] Clopidogrel Bisulfate 75 mg 12/15/22 10:45 12/15/22 11:35 Clopidogrel 75 Mg Tab PO 75 mg DAILY@0800 [facility] Administration Cyclobenzaprine HCl 5 mg 12/15/22 14:00 Cyclobenzaprine 5 Mg Tab PO TID@0600,1400,2200 [facility] Dextrose/Water 25 ml 12/15/22 10:40 Dextrose 50% Syringe 50 Ml IVP PER PROTOCOL PRN Hypoglycemia Protocol Dextrose/Water 50 ml 12/15/22 10:40 Dextrose 50% Syringe 50 Ml IVP PER PROTOCOL PRN Hypoglycemia Protocol Furosemide 40 mg 12/14/22 22:00 12/15/22 06:53 Furosemide 10 Mg/Ml 4 Ml Vial IV 40 mg Q8H [facility] Administration Ceftriaxone Sodium 2 gm/ 50 mls @ 100 mls/hr 12/15/22 21:00 Sodium Chloride IVPB Q24H [facility] Protocol Norepinephrine Bitartrate 4 mg 254 mls @ 12.287 mls/hr 12/15/22 00:00 12/15/22 14:25 / Sodium Chloride IV 0.02 mcg/kg/min .[id number] [facility] 8.192 mls/hr Titration Protocol 0.03 MCG/KG/MIN Amiodarone HCl 450 mg/ 250 mls @ 16.667 mls/hr 12/15/22 06:00 12/15/22 06:12 Dextrose/Water IV 12/15/22 23:59 0.5 mg/min .Q15H [facility] 16.667 mls/hr Administration Protocol 0.5 MG/MIN Insulin Aspart 0 unit 12/15/22 07:30 12/15/22 11:32 Insulin Aspart (Novolog) 100 Unit/Ml Vial SQ 4 unit ACHS [facility] Administration Protocol Lidocaine 1 patch 12/15/22 10:45 Lidocaine 5% Patch TOPICAL DAILY [facility] Protocol Metoprolol Succinate 25 mg 12/15/22 15:15 Metoprolol Succinate (Er) 25 Mg Tab.Er.24h PO DAILY [facility] Multivitamins 1 each 12/15/22 17:00 Multivitamins, Thera 1 Each Tab PO DAILY@1700 [facility] Nitroglycerin 1 inch 12/15/22 22:00 Nitroglycerin Oint 1 Inch/Gm Packet TOPICAL QID [facility] Oxybutynin Chloride 5 mg 12/15/22 10:45 12/15/22 11:33 Oxybutynin Xl 5 Mg Tab.Er.24 PO 5 mg DAILY@0800 [facility] Administration Pantoprazole Sodium 40 mg 12/15/22 09:00 12/15/22 08:23 Pantoprazole 40 Mg/10 Ml Vial IVP 40 mg DAILY [facility] Administration Risperidone 0.5 mg 12/15/22 21:00 Risperidone 0.5 Mg Tab PO HS@2100 [facility] Sacubitril/Valsartan 1 each 12/15/22 10:36 12/15/22 11:29 Sacubitril/Valsartan 24 Mg-26 Mg Tablet PO Not Given BID@0800,1700 [facility] Sertraline HCl 50 mg 12/15/22 21:00 Sertraline 50 Mg Tab PO HS@2100 [facility] Thiamine HCl 100 mg 12/15/22 10:45 12/15/22 11:35 Thiamine 100 Mg Tab PO 100 mg DAILY@0800 [facility] Administration Intake and Output 12/15/22 12/15/22 12/15/22 06:59 14:59 22:59 Intake Total 3.686 405.543 20 Output Total 525 495 50 Balance -521.314 -89.457 -30 Intake: IV 140 20 .9 NS 140 20 Intake, IV Titration 3.686 265.543 Amount Norepinephrine 4 mg In 3.686 265.543 Sodium Chloride 0.9% 250 ml @ 0.03 MCG/KG/MIN 12. 287 mls/hr IV .[id number] [facility] Rx#:[id number] Output: Urine 525 495 50 Other: Voiding Method Indwelling Catheter Indwelling Catheter Weight 110.8 kg 110.8 kg Patient Weight 12/16/22 06:59 Weight 110.8 kg 12/15/22 04:32 12/15/22 04:32
[2022-12-15] MEDS: AMIODARONE 200 MG TAB PO SCH (17:03)
[2022-12-15 17:07] LABS: Glucose,Whole Blood 164 mg/dL (70-110)
[2022-12-15] MEDS: LIDOCAINE 5% PATCH TOPICAL SCH (17:12)
[2022-12-15] MEDS: ACETAMINOPHEN TAB 500 MG TAB PO SCH ×2 (17:13→21:50)
[2022-12-15] MEDS: CYCLOBENZAPRINE 5 MG TAB PO SCH ×2 (17:13→21:50)
[2022-12-15] MEDS: MULTIVITAMINS, THERA 1 EACH TAB PO SCH (17:13)
[2022-12-15] MEDS: METOPROLOL SUCCINATE (ER) 25 MG TAB.ER.24H PO SCH (17:47)
--- NOTE | 2022-12-15 19:21 | P.HPIM ---
History of Present Illness H&P Date: 12/15/22 Chief Complaint: Increase heart rate This is a 72-year-old patient, from [facility]. Follows with Dr. Alvarez. Patient is a poor historian. Speaks rather slowly. Presented to ER yesterday with increased heart rate. Patient presents to the floor, A-team was called. Initially had presented with atrial fibrillation with rapid ventricular rate. Was put on a Cardizem drip. Also started on Rocephin for possible UTI. X-ray showed pulmonary congestion. Patient then moved to the ICU overnight. He was hypertensive. Started on levo fed. Cardizem was discontinued. Patient was confused. This morning patient remains a known epinephrine and amiodarone drip. Tries to answer questions. A bit confused. Review of systems could not be obtained. Past medical history to include: Atrophic ablation, COPD, CHF, diabetes, hypertension, hyperlipidemia, gout COPD with stent, pacemaker, coronary stents in 2020 depression and anxiety Social history: Patient is still smoking at least 11 years ago. At [facility] Physical examination: VITAL SIGNS: 98.4, 126, 23, 108/58, 97% on BiPAP] GENERAL: [BMI 37.1, declining but awake slightly short of breath. EYES: Pupils equal. Conjunctiva normal. HEENT: External appearance of nose and ears normal, oral cavity grossly normal. NECK: JVD unable to assess; masses not palpable. HEART: Heart sounds are regular; some edema. LUNGS:[ Respiratory rate increased; damage breath sounds. ABDOMEN: Soft, distended, nontender, liver spleen not palpable, no masses palpable. PSYCH: Lethargic but arousable. Unable to assessl. MUSCULOSKELETAL:No Clubbing/cyanosis;muscles-grossly intact. Right heel ulcer NEUROLOGICAL: Cranial nerves grossly intact; no facial asymmetry, power and sensation grossly intact. Speech is somewhat slow and mumbled LYMPHATICS: No lymph nodes palpable in the axilla and neck INVESTIGATIONS, reviewed in the clinical context: December 15: White count 22.3 hemoglobin 10 platelets 271 sodium 137 potassium 4.3 BUN 61 and creatinine 1.53 Troponin I 0.022, 0.023 December 14: White count 16.7 hemoglobin 10.9 platelets 278 potassium 5.2 BUN 58 creatinine 1.54 UA positive for leukoesterase WBC RBC WBC clumps and bacteria many Troponin I 0.022 EKG tracing personally reviewed by me-atrial flutter fibrillation with a rate of 1:30 Chest x-ray film personally reviewed by me-cardiomegaly. Pulmonary edema. Assessment and plan: -Acute congestive heart failure exacerbation. EF not known. Precipitated by uncontrolled atrial fibrillation. IV Lasix 40 mg every 8. Strict I's and O's. -Acute hypoxic respiratory failure secondary to CHF exacerbation, COPD exacerbation. BiPAP -Persistent atrial flutter fibrillation: Rate uncontrolled IV amiodarone. -Acute COPD exacerbation in an ex-smoker DuoNeb 3 times a day. Nebulized Pulmicort -Hyperlipidemia Lipitor 40 mg daily at bedtime -Essential hypertension Follow blood pressure closely -Hyperuricemia Allopurinol 100 mg a day -Bladder outflow dysfunction Oxybutynin 5 mg a day -Diabetes mellitus type 2 on oral hypoglycemic Hold Glucotrol. Accu-Cheks with sliding scale -Major cognitive impairment -Acute UTI with cystitis causing sepsis IV ceftriaxone -Septic and cardiac shock IV norepinephrine -AICD -CAD with a prior history of stent -Full code -Legal guardian Past Medical History Past Medical History: Atrial Fibrillation, Coronary Artery Disease (CAD), Heart Failure, Diabetes Mellitus, Hyperlipidemia, Hypertension Additional Past Medical History / Comment(s): See Dr Piedra's H&P. "Feet cold sometimes". Gout. Hx UTI and kidney infection with Covid. History of Any Multi-Drug Resistant Organisms: None Reported Past Surgical History: Heart Catheterization With Stent, Orthopedic Surgery, Pacemaker Additional Past Surgical History / Comment(s): 2 STENTS DEC 2020, left hip surgery X2. Past Anesthesia/Blood Transfusion Reactions: No Reported Reaction, Postoperative Nausea & Vomiting (PONV) Additional Past Anesthesia/Blood Transfusion Reaction / Comment(s): UNKNOWN FAMILY HX. Date of Last Stent Placement:: DEC 2020 Type of Cardiac Device: Unknown Device Placement Date:: Unknown Past Psychological History: Anxiety, Depression Smoking Status: Former smoker Past Alcohol Use History: None Reported Additional Past Alcohol Use History / Comment(s): QUIT SMOKING AT LEAST 11 YRS AGO. Past Drug Use History: None Reported - Past Family History Mother Family Medical History: Cancer Brother(s) Family Medical History: Cancer Additional Family Medical History / Comment(s): Lung cancer. Father History Unknown: Yes Family Medical History: Hyperlipidemia Medications and Allergies Home Medications Medication Instructions Recorded Confirmed Type Ferrous Sulfate [Iron] 325 mg PO DAILY@1700 10/21/20 12/14/22 History Sertraline HCl [Zoloft] 50 mg PO HS@209910/21/20 12/14/22 History allopurinoL [Zyloprim] 100 mg PO DAILY@0810/21/20 12/14/22 History risperiDONE [RisperDAL] 0.5 mg PO HS@209910/21/20 12/14/22 History Apixaban [Eliquis] 5 mg PO BID@0800,1700 05/09/21 12/14/22 History Thiamine HCl [Vitamin B-1] 100 mg PO DAILY@0800 05/09/21 12/14/22 History Amiodarone [Cordarone] 200 mg PO DAILY@0802/06/22 12/14/22 History Loratadine [Claritin] 10 mg PO DAILY@0800 02/06/22 12/14/22 History Mv-Min/Folic/K1/Lycopen/Lutein 1 tab PO DAILY@169902/06/22 12/14/22 History [Centrum Silver Men Tablet] glipiZIDE [Glucotrol] 5 mg PO BID@0800,1700 02/06/22 12/14/22 History Acetaminophen Tab [Tylenol] 1,000 mg PO TID@0800,1400,2200 10/01/22 12/14/22 History Sacubitril/Valsartan [Entresto 24 1 tab PO BID@0800,1700 10/01/22 12/14/22 History mg-26 mg Tablet] Atorvastatin [Lipitor] 40 mg PO HS@209910/16/22 12/14/22 History Clopidogrel [Plavix] 75 mg PO DAILY@0800 10/16/22 12/14/22 History Ergocalciferol (Vitamin D2) 1,250 mcg PO QMONTHLY 10/17/22 12/14/22 History [Drisdol (50,000 Iu)] Lidocaine 5% Patch [Lidoderm 5% 1 patch TOPICAL DAILY 10/17/22 12/14/22 History Patch] HYDROcodone/APAP 7.5-325MG [[place] 1 tab PO Q6HR PRN #21 tab 10/23/22 12/14/22 Rx 7.5-325] Acetaminophen [Tylenol] 650 mg PO Q4H PRN 12/14/22 12/14/22 History Cholecalciferol [Vitamin D3 (25 50 mcg PO DAILY@0800 12/14/22 12/14/22 History Mcg = 1000 Iu)] Cyclobenzaprine [Flexeril] 5 mg PO TID@0600,1400,2200 12/14/22 12/14/22 History Furosemide [Lasix] 40 mg PO BID@0800,1400 12/14/22 12/14/22 History Ipratropium-Albuterol Nebulize 3 ml INHALATION RT-Q6H PRN 12/14/22 12/14/22 History [Duoneb 0.5 mg-3 mg/3 ml Soln] Magnesium Hydroxide [Milk of 7,200 mg PO Q48H PRN 12/14/22 12/14/22 History Magnesia Concentrate] Metoprolol Succinate (ER) [Toprol 150 mg PO BID@0800,2000 12/14/22 12/14/22 History XL] Na Phos,M-B/Na Phos,Di-Ba [Fleet 133 ml RECTAL DAILY PRN 12/14/22 12/14/22 History Adult] Potassium Chloride ER [K-Dur 20] 20 meq PO DAILY@0800 12/14/22 12/14/22 History Sodium Bicarbonate Tab 650 mg PO BID@0800,1700 12/14/22 12/14/22 History bisacodyL [Dulcolax] 10 mg RECTAL DAILY PRN 12/14/22 12/14/22 History oxyBUTYnin chloride [oxyBUTYnin 5 mg PO DAILY@0800 12/14/22 12/14/22 History chloride ER] Allergies Allergy/AdvReac Type Severity Reaction Status Date / Time No Known Allergies Allergy Verified 12/14/22 18:41 Physical Exam Vitals: Vital Signs Temp Pulse Pulse Resp BP Pulse Ox FiO2 12/15/22 08:02 30 12/15/22 08:00 98.4 F 126 H 30 H 99/75 96 30 12/15/22 07:45 140 H 31 H 104/68 96 12/15/22 07:30 112 H 26 H 123/64 96 12/15/22 07:15 142 H 15 113/60 96 12/15/22 07:00 130 H 29 H 103/69 96 12/15/22 06:50 125 H 28 H 103/69 95 12/15/22 06:40 125 H 30 H 99/68 96 12/15/22 06:30 125 H 31 H 102/79 96 12/15/22 06:20 123 H 21 102/79 95 12/15/22 06:10 137 H 26 H 100/60 96 12/15/22 06:00 122 H 22 77/65 96 12/15/22 05:50 130 H 10 L 77/65 97 12/15/22 05:40 134 H 26 H 83/73 96 12/15/22 05:30 138 H 31 H 78/63 96 12/15/22 05:20 137 H 36 H 78/63 97 12/15/22 05:10 133 H 26 H 136/88 96 12/15/22 05:00 137 H 113 H 122/93 97 12/15/22 04:50 131 H 17 122/93 97 12/15/22 04:44 30 12/15/22 04:40 130 H 87 H 109/91 97 12/15/22 04:30 144 H 30 H 98/74 97 12/15/22 04:20 128 H 31 H 98/74 98 12/15/22 04:10 129 H 19 108/82 98 12/15/22 04:00 126 H 144 H 27 H 109/80 99 12/15/22 03:50 129 H 15 109/80 98 12/15/22 03:40 133 H 32 H 89/67 97 12/15/22 03:30 125 H 30 H 95/59 97 12/15/22 03:20 121 H 30 H 95/59 99 12/15/22 03:10 134 H 38 H 91/77 97 12/15/22 03:00 124 H 31 H 103/30 98 12/15/22 02:50 137 H 23 103/30 95 12/15/22 02:40 135 H 13 114/78 97 12/15/22 02:30 137 H 35 H 113/72 98 12/15/22 02:20 144 H 26 H 113/72 96 12/15/22 02:10 140 H 9 L 95/74 98 12/15/22 02:00 128 H 16 107/80 98 12/15/22 01:50 130 H 27 H 107/80 96 12/15/22 01:40 140 H 11 L 104/85 96 12/15/22 01:30 131 H 59 H 140/85 97 12/15/22 01:20 135 H 13 140/85 97 12/15/22 01:10 130 H 57 H 103/62 95 12/15/22 01:00 142 H 16 96/76 95 12/15/22 00:50 128 H 29 H 96/76 98 12/15/22 00:49 40 12/15/22 00:40 133 H 26 H 83/69 97 12/15/22 00:30 118 H 24 103/68 97 12/15/22 00:20 116 H 22 103/68 98 12/15/22 00:10 125 H 16 75/57 97 12/15/22 00:00 97.8 F 118 H 34 H 98/63 98 40 12/14/22 23:50 126 H 40 H 98/63 98 12/14/22 23:40 122 H 28 H 87/55 100 12/14/22 23:35 126 H 12/14/22 23:33 40 12/14/22 23:30 120 H 32 H 103/74 12/14/22 23:20 136/51 12/14/22 23:10 133 H 12/14/22 23:05 100 12/14/22 23:00 136/51 12/14/22 22:50 136/51 12/14/22 22:40 147 H 137/98 95 12/14/22 22:30 137 H 114/91 94 L 12/14/22 22:20 129 H 114/91 97 12/14/22 22:10 123 H 129/88 100 12/14/22 22:00 123 H 123/89 95 12/14/22 21:30 128 H 24 114/85 95 12/14/22 21:00 120 H 24 120/97 95 12/14/22 20:30 126 H 22 120/73 94 L 12/14/22 20:00 125 H 22 129/88 95 12/14/22 19:30 114 H 118/93 94 L 12/14/22 19:13 114 H 20 118/93 96 12/14/22 18:26 120 H 18 93/68 20 L 12/14/22 18:09 117 H 20 117/72 94 L 12/14/22 16:52 129 H 32 H 102/86 94 L 12/14/22 16:40 100.1 F H 125 H 26 H 94 L Intake and Output 12/14/22 12/15/22 12/15/22 22:59 06:59 14:59 Intake Total 3.686 20 Output Total 525 140 Balance -521.314 -120 Intake: IV 20 .9 NS 20 Intake, IV Titration 3.686 Amount Norepinephrine 4 mg In 3.686 Sodium Chloride 0.9% 250 ml @ 0.03 MCG/KG/MIN 12. 287 mls/hr IV .[id number] [facility] Rx#:[id number] Output: Urine 525 140 Other: Voiding Method Indwelling Catheter Weight 107.5 kg 110.8 kg Results CBC & Chem 7: 12/15/22 04:32 12/15/22 04:32 Labs: Abnormal Lab Results - Last 24 Hours (Table) 12/14/22 12/14/22 12/14/22 Range/Units 17:38 17:38 17:38 WBC 16.7 H (3.8-10.6) k/uL RBC 3.24 L (4.30-5.90) m/uL Hgb 10.9 L (13.0-17.5) gm/dL Hct 34.4 L (39.0-53.0) % MCV 106.0 H (80.0-100.0) fL MCHC (31.0-37.0) g/dL RDW 17.9 H (11.5-15.5) % Neutrophils # 15.3 H (1.3-7.7) k/uL Lymphocytes # 0.4 L (1.0-4.8) k/uL Monocytes # (0-1.0) k/uL Macrocytosis Marked A PT 14.3 H (9.0-12.0) sec INR 1.4 H (<1.2) APTT 40.8 H (22.0-30.0) sec ABG pO2 (83-108) mmHg ABG HCO3 (21-25) mmol/L ABG Total CO2 (19-24) mmol/L ABG O2 Saturation (94-97) % Potassium 5.2 H (3.5-5.1) mmol/L BUN 58 H (9-20) mg/dL Creatinine 1.54 H (0.66-1.25) mg/dL Glucose 240 H (74-99) mg/dL POC Glucose (mg/dL) (70-110) mg/dL Calcium (8.4-10.2) mg/dL Total Protein 8.3 H (6.3-8.2) g/dL Albumin 3.3 L (3.5-5.0) g/dL Urine Protein (Negative) Urine Blood (Negative) Ur Leukocyte Esterase (Negative) Urine RBC (0-5) /hpf Urine WBC (0-5) /hpf Urine WBC Clumps (None) /hpf Urine Bacteria (None) /hpf 12/14/22 12/14/22 12/14/22 Range/Units 17:38 22:55 23:29 WBC (3.8-10.6) k/uL RBC (4.30-5.90) m/uL Hgb (13.0-17.5) gm/dL Hct (39.0-53.0) % MCV (80.0-100.0) fL MCHC (31.0-37.0) g/dL RDW (11.5-15.5) % Neutrophils # (1.3-7.7) k/uL Lymphocytes # (1.0-4.8) k/uL Monocytes # (0-1.0) k/uL Macrocytosis PT (9.0-12.0) sec INR (<1.2) APTT (22.0-30.0) sec ABG pO2 181 H (83-108) mmHg ABG HCO3 29 H (21-25) mmol/L ABG Total CO2 30 H (19-24) mmol/L ABG O2 Saturation 97.3 H (94-97) % Potassium (3.5-5.1) mmol/L BUN (9-20) mg/dL Creatinine (0.66-1.25) mg/dL Glucose (74-99) mg/dL POC Glucose (mg/dL) 213 H (70-110) mg/dL Calcium (8.4-10.2) mg/dL Total Protein (6.3-8.2) g/dL Albumin (3.5-5.0) g/dL Urine Protein 3+ H (Negative) Urine Blood Large H (Negative) Ur Leukocyte Esterase Large H (Negative) Urine RBC >182 H (0-5) /hpf Urine WBC >182 H (0-5) /hpf Urine WBC Clumps Many H (None) /hpf Urine Bacteria Many H (None) /hpf 12/15/22 12/15/22 12/15/22 Range/Units 04:32 04:32 06:49 WBC 22.3 H (3.8-10.6) k/uL RBC 3.13 L (4.30-5.90) m/uL Hgb 10.0 L (13.0-17.5) gm/dL Hct 33.4 L (39.0-53.0) % MCV 106.9 H (80.0-100.0) fL MCHC 30.0 L (31.0-37.0) g/dL RDW 18.0 H (11.5-15.5) % Neutrophils # 20.5 H (1.3-7.7) k/uL Lymphocytes # 0.4 L (1.0-4.8) k/uL Monocytes # 1.1 H (0-1.0) k/uL Macrocytosis Marked A PT (9.0-12.0) sec INR (<1.2) APTT (22.0-30.0) sec ABG pO2 (83-108) mmHg ABG HCO3 (21-25) mmol/L ABG Total CO2 (19-24) mmol/L ABG O2 Saturation (94-97) % Potassium (3.5-5.1) mmol/L BUN 61 H (9-20) mg/dL Creatinine 1.53 H (0.66-1.25) mg/dL Glucose 242 H (74-99) mg/dL POC Glucose (mg/dL) 276 H (70-110) mg/dL Calcium 8.2 L (8.4-10.2) mg/dL Total Protein (6.3-8.2) g/dL Albumin 2.8 L (3.5-5.0) g/dL Urine Protein (Negative) Urine Blood (Negative) Ur Leukocyte Esterase (Negative) Urine RBC (0-5) /hpf Urine WBC (0-5) /hpf Urine WBC Clumps (None) /hpf Urine Bacteria (None) /hpf Thrombosis Risk Factor Assmnt - Choose All That Apply Each Factor Represents 1 point: Heart failure (<1month), Obesity (BMI >25) Thrombosis Risk Factor Assessment Total Risk Factor Score: 2 Thrombosis Risk Factor Assessment Level: Low Risk
[2022-12-15 20:58] LABS: Glucose,Whole Blood 167 mg/dL (70-110)
[2022-12-15] MEDS: IPRATROPIUM-ALBUTEROL 3 ML NEB INHALATION SCH (21:24)
[2022-12-15] MEDS: BUDESONIDE 1 MG/2 ML NEBU INHALATION SCH (21:25)
[2022-12-15] MEDS: SERTRALINE 50 MG TAB PO SCH (21:50)
[2022-12-15] MEDS: ATORVASTATIN 40 MG TAB PO SCH (21:50)
[2022-12-15] MEDS: risperiDONE 0.5 MG TAB PO SCH (21:50)
[2022-12-15] MEDS: NITROGLYCERIN OINT 1 INCH/GM PACKET TOPICAL SCH (21:51)
[2022-12-16] MEDS: AMIODARONE 450 MG in DEXTROSE 5% IN WATER 250 ML IV SCH ×2 (00:17)
[2022-12-16 05:58] LABS: Anisocytosis Slight; Basophils % (A) 0 %; Eosinophils # (A) 0.1 k/uL (0-0.7); Eosinophils % (A) 1 %; HCT 26.2 % (39.0-53.0); Hypochromasia Marked; Lymphocytes # (A) 0.4 k/uL (1.0-4.8); Lymphocytes % (A) 4 %; MCH 33.3 pg (25.0-35.0); MCHC 31.5 g/dL (31.0-37.0); MCV 105.7 fL (80.0-100.0); Mean Platelet Volume 7.8; Monocytes # (A) 0.4 k/uL (0-1.0); Monocytes % (A) 4 %; Neutrophils # (A) 8.6 k/uL (1.3-7.7); Neutrophils % (A) 90 %; Platelet Count 195 k/uL (150-450); Poikilocytosis Moderate; RBC 2.47 m/uL (4.30-5.90); RDW 17.9 % (11.5-15.5); WBC 9.6 k/uL (3.8-10.6)
[2022-12-16] MEDS: FUROSEMIDE 10 MG/ML 4 ML VIAL IV SCH ×3 (06:18→21:56)
[2022-12-16] MEDS: CYCLOBENZAPRINE 5 MG TAB PO SCH ×3 (06:18→21:57)
[2022-12-16 06:28] LABS: ALT 18 U/L (4-49); AST 21 U/L (17-59); African American GFR (CKD) 46 (>60 ml/min/1.73 sqM); Albumin 2.4 g/dL (3.5-5.0); Alkaline Phosphatase 72 U/L (38-126); Anion Gap 9 mmol/L; Blood Urea Nitrogen 67 mg/dL (9-20); Carbon Dioxide 26 mmol/L (22-30); Chloride 101 mmol/L (98-107); Glucose 113 mg/dL (74-99); Non-African American GFR(CKD) 39 (>60 ml/min/1.73 sqM); Potassium 3.8 mmol/L (3.5-5.1); Sodium 136 mmol/L (137-145); Total Bilirubin 0.4 mg/dL (0.2-1.3); Total Protein 6.6 g/dL (6.3-8.2)
[2022-12-16 06:31] LABS: Glucose,Whole Blood 112 mg/dL (70-110)
[2022-12-16] MEDS: INSULIN ASPART (NovoLOG) 100 UNIT/ML VIAL SQ SCH ×4 (06:32→22:21)
[2022-12-16 06:33] LABS: HGB 8.2 gm/dL (13.0-17.5)
[2022-12-16 06:34] LABS: Macrocytosis Marked
[2022-12-16 06:56] LABS: Glucose,Whole Blood 114 mg/dL (70-110)
[2022-12-16] MEDS: POTASSIUM CHLORIDE 10 MEQ in WATER FOR INJECTION 1 100ML.BAG IVPB SCH ×2 (06:57→09:30)
[2022-12-16] MEDS: BUDESONIDE 1 MG/2 ML NEBU INHALATION SCH ×2 (08:24→20:33)
[2022-12-16] MEDS: IPRATROPIUM-ALBUTEROL 3 ML NEB INHALATION SCH ×3 (08:24→20:33)
[2022-12-16] MEDS: PANTOPRAZOLE 40 MG/10 ML VIAL IVP SCH (09:27)
[2022-12-16] MEDS: APIXABAN 5 MG TAB PO SCH ×3 (09:27→17:01)
[2022-12-16] MEDS: CLOPIDOGREL 75 MG TAB PO SCH ×2 (09:27→10:49)
[2022-12-16] MEDS: ACETAMINOPHEN TAB 500 MG TAB PO SCH ×3 (09:28→22:09)
[2022-12-16] MEDS: THIAMINE 100 MG TAB PO SCH (09:29)
[2022-12-16] MEDS: ASPIRIN 325 MG TAB PO SCH (09:29)
[2022-12-16] MEDS: allopurinoL 100 MG TAB PO SCH (09:29)
[2022-12-16] MEDS: AMIODARONE 200 MG TAB PO SCH (09:29)
[2022-12-16] MEDS: NITROGLYCERIN OINT 1 INCH/GM PACKET TOPICAL SCH ×4 (09:29→22:21)
[2022-12-16] MEDS: SACUBITRIL/VALSARTAN 24 MG-26 MG TABLET PO SCH (09:31)
[2022-12-16] MEDS: OXYBUTYNIN XL 5 MG TAB.ER.24 PO SCH (09:32)
[2022-12-16] MEDS: LIDOCAINE 5% PATCH TOPICAL SCH (09:32)
[2022-12-16] MEDS: METOPROLOL SUCCINATE (ER) 25 MG TAB.ER.24H PO SCH (10:48)
[2022-12-16 11:18] LABS: Glucose,Whole Blood 217 mg/dL (70-110)
--- NOTE | 2022-12-16 12:14 | P.PN ---
Subjective Progress Note Date: 12/16/22 Principal diagnosis: Acute hypoxic respiratory failure with acute systolic congestive heart failure and urosepsis, and gram-negative bacteremia I am seeing this patient in new consultation today 12/15/2022 on the cardiac stepdown unit after an A-team was called overhead. Patient is a 72-year-old white male with past medical history significant for paroxysmal atrial fibrillat ion, coronary artery disease with prior coronary stents, heart failure, V-tach s/p AICD, diabetes mellitus, hyperlipidemia, hypertension. Patient was brought into the emergency room yesterday afternoon from his extended care facility. I am told that he stays at [facility], and that he was found to be confused and tachycardic on rounds at the outside facility. While in the emergency room, he was found to be in atrial fibrillation with rapid ventricular rate. He has chronic atrial fibrillation. He was started on Cardizem 5 mg per hour for rate control. Urinalysis is also concerning for UTI and urosepsis. He has been started on Rocephin. CBC on arrival showed some leukocytosis with a WBC count of 16.7, hemoglobin 10.9, hematocrit 34.4, platelets 278. BMP on arrival showed a sodium of 138, potassium 5.2, chloride 99, serum bicarbonate 23, BUN 58, creatinine 1.54, glucose 240. There is a component of acute kidney injury. NT proBNP was also elevated at 24,000. Chest x-ray on arrival showed cardiomegaly with pulmonary vascular congestion, and small bilateral pleural effusions concerning for CHF exacerbation. Patient has known history of systolic heart failure with a left ventricular ejection fraction of 35-40%, along with moderate mitral and tricuspid regurgitation with moderate pulmonary hypertension. Patient has been started on Lasix 40 mg 3 times a day. Patient was originally admitted to the cardiac stepdown unit. On my evaluation, the patient is currently in room 367. He is minimally responsive to sternal rub. He is tachypneic and tachycardic. Cardizem is still infusing at 5 mg per hour. He is in some respiratory distress, and was placed on the BiPAP with settings of 12/6 and FiO2 of 60%. ABGs show pO2 of 181, pCO2 45, pH of 7.41 on these settings. Patient was ultimately transferred to the intensive care unit for closer monitoring. While in ICU, his blood pressure did become hypotensive and he was started on low-dose norepinephrine which is currently infusing at 0.03 mics per kilogram per minute. Cardizem was stopped due to hypotension, and switch to a miodarone per protocol. He is still confused, but is more alert to verbal and painful stimuli. Patient will be monitored in the intensive care unit. Patient was admitted on , remains in the ICU, he was on BiPAP last night 02/10/30% now the patient is on nasal cannula at 4 L, doing well, relatively asymptomatic, he is on ceftriaxone for his positive blood cultures showing gram- negative bacilli which is likely coming from his urosepsis. Patient is hemodynamically stable, not requiring any pressors, does not seem to be in any distress. WBC count is 9.6 hemoglobin 8.2 lites are normal BUN is 67 creatinine 1.70. Considering his relative stability I will transfer the patient out of the ICU to a monitor bed on . Objective - Vital Signs Vital signs: Vital Signs Temp 97.6 F 12/16/22 08:00 Pulse 146 H 12/16/22 11:15 Resp 30 H 12/16/22 11:15 BP 94/56 12/16/22 11:15 Pulse Ox 99 12/16/22 11:15 FiO2 30 12/16/22 04:00 Intake & Output 12/15/22 12/16/22 12/16/22 18:59 06:59 18:59 Intake Total 509.573 240 255.91 Output Total 870 770 465 Balance -360.427 -530 -209.09 Weight 110.8 kg 112 kg Intake: IV 220 240 100 .9 NS 220 240 100 Intake, IV Titration 289.573 155.91 Amount Norepinephrine 4 mg In 289.573 55.91 Sodium Chloride 0.9% 250 ml @ 0.03 MCG/KG/MIN 12. 287 mls/hr IV .[id number] [facility] Rx#:[id number] Potassium Chloride 10 meq 100 In Water For Injection 1 100ml.bag @ 100 mls/hr IVPB Q1H [facility] Rx#: [id number] Output: Urine 870 770 465 Other: Voiding Method Indwelling Catheter Indwelling Catheter Indwelling Catheter - Exam Physical Exam: Revealed 72-year-old white male in no distress on nasal cannula off BiPAP Head: Atraumatic, normocephalic. HEENT:[Neck is supple.] [No neck masses.] [No thyromegaly.] [No JVD.] Chest: [Fine crackles at the bases no rhonchi and no wheezes Cardiac Exam: [Normal S1 and S2, no S3 gallop, no murmur.] Abdomen: [Soft, nontender, no megaly, no rebound, no guarding, normal bowel boyd nds.] Extremities: [No clubbing, 2+ bipedal edema, no cyanosis.] Neurological Exam: [No focal neurologic deficit.] Alert oriented 3 Psychiatric: Normal mood affect and normal mental status examination. - Labs CBC & Chem 7: 12/16/22 05:50 12/16/22 05:50 Labs: Abnormal Lab Results - Last 24 Hours (Table) 12/15/22 12/15/22 12/16/22 Range/Units 17:06 20:56 05:50 RBC (4.30-5.90) m/uL Hgb (13.0-17.5) gm/dL Hct (39.0-53.0) % MCV (80.0-100.0) fL RDW (11.5-15.5) % Neutrophils # (1.3-7.7) k/uL Lymphocytes # (1.0-4.8) k/uL Macrocytosis Sodium 136 L (137-145) mmol/L BUN 67 H (9-20) mg/dL Creatinine 1.70 H (0.66-1.25) mg/dL Glucose 113 H (74-99) mg/dL POC Glucose (mg/dL) 164 H 167 H (70-110) mg/dL Calcium 8.0 L (8.4-10.2) mg/dL Albumin 2.4 L (3.5-5.0) g/dL 12/16/22 12/16/22 12/16/22 Range/Units 05:50 06:30 06:55 RBC 2.47 L (4.30-5.90) m/uL Hgb 8.2 L D (13.0-17.5) gm/dL Hct 26.2 L (39.0-53.0) % MCV 105.7 H (80.0-100.0) fL RDW 17.9 H (11.5-15.5) % Neutrophils # 8.6 H (1.3-7.7) k/uL Lymphocytes # 0.4 L (1.0-4.8) k/uL Macrocytosis Marked A Sodium (137-145) mmol/L BUN (9-20) mg/dL Creatinine (0.66-1.25) mg/dL Glucose (74-99) mg/dL POC Glucose (mg/dL) 112 H 114 H (70-110) mg/dL Calcium (8.4-10.2) mg/dL Albumin (3.5-5.0) g/dL 12/16/22 Range/Units 11:16 RBC (4.30-5.90) m/uL Hgb (13.0-17.5) gm/dL Hct (39.0-53.0) % MCV (80.0-100.0) fL RDW (11.5-15.5) % Neutrophils # (1.3-7.7) k/uL Lymphocytes # (1.0-4.8) k/uL Macrocytosis Sodium (137-145) mmol/L BUN (9-20) mg/dL Creatinine (0.66-1.25) mg/dL Glucose (74-99) mg/dL POC Glucose (mg/dL) 217 H (70-110) mg/dL Calcium (8.4-10.2) mg/dL Albumin (3.5-5.0) g/dL Microbiology - Last 24 Hours (Table) 12/14/22 19:05 Blood Culture Gram Stain - Preliminary Blood Blood Culture - Preliminary Gram Neg Bacilli 12/14/22 19:05 Blood Culture Gram Stain - Preliminary Blood Blood Culture - Preliminary Gram Neg Bacilli 12/15/22 02:45 Urine Culture - Final Urine,Catheterized Assessment and Plan Assessment: Impression: Acute hypoxemic respiratory failure, currently on BiPAP, secondary to systolic CHF exacerbation. Chest x-ray on arrival shows cardiomegaly, pulmonary vascular congestion, and bilateral pleural effusions concerning for CHF exacerbation. NT proBNP was elevated at 24,000. Gram-negative bacteremia and urosepsis UTI and urosepsis, currently requiring vasopressors in the form of norepinephrine Septic shock Leukocytosis, secondary to above Acute kidney injury, creatinine 1.54 Atrial fibrillation with rapid ventricular rate History of ischemic cardiomyopathy, recent echocardiogram done September, showed a reduced ejection fraction of 35-40% along with moderate mitral and tricuspid regurgitation, moderate pulmonary hypertension. History of nonsustained ventricular tachycardia, status post AICD implantation Coronary artery disease, with prior coronary PCI Diabetes mellitus type 2 Benign essential hypertension Hyperlipidemia Obesity, with a BMI of 36 kg/m Recommendation: Continue present supportive care measures Continue Lasix Continue antibiotics, adjust according to the final culture from the urine and blood Continue cardiac meds as per cardiology on the case. Transfer patient to a monitor bed on selective We'll continue to follow Use BiPAP at night. Time with Patient: Less than 30
--- NOTE | 2022-12-16 14:23 | P.PN ---
Subjective Progress Note Date: 12/16/22 Subjective: Patient is seen and examined at bedside. He is on BiPAP support overnight. Currently is on nasal cannula saturating well. Blood pressure 94/73, heart rate 1 33 bpm, hemoglobin 8.2, creatinine 1.7. Creatinine was 1.5 yesterday. PHYSICAL EXAMINATION Vital signs reviewed. CONSTITUTIONAL: No apparent distress, confused HEENT: Head is normocephalic. Pupils are equal, round. Sclerae anicteric. Mucous membranes of the mouth are moist. No JVD. No carotid bruit. CHEST EXAMINATION: Lungs are clear to auscultation. No chest wall tenderness is noted on palpation or with deep breathing. HEART EXAMINATION: Irregular rhythm. S1, S2 heard. No murmurs, gallops or rub. ABDOMEN: Soft, nontender. Positive bowel sounds. EXTREMITIES: 2+ lower extremity edema NEUROLOGIC EXAMINATION: Patient is awake, alert and oriented x3. ASSESSMENT 1. Acute on chronic systolic heart failure 2. Altered mental status likely component of sepsis 3. Hypotension, likely component of sepsis on low-dose norepinephrine 4. Persistent A. fib with RVR 5. Hypertension 6. Cardiomyopathy ejection fraction 35-40% 7. History of coronary artery disease 8. Urinary tract infection 9. Acute kidney injury PLAN Patient continues to be significantly volume overloaded. His creatinine has steadily trended up from 1.5-1.7. Reduce Lasix from 40 mg IV TID to BID Reduce aspirin to 81 mg daily Stop Plavix Continue Eliquis 5 mg twice a day Repeat H&H in 8 hours to follow up on hemoglobin levels Hold Entresto for 1-2 days. Continue metoprolol succinate 25 mg daily. Will not increase dose as patient is in significant congestive heart failure Continue amiodarone 200 mg daily. Synopsis Patient is pleasant 72-year-old male with history of persistent atrial fibrillation, CAD with prior PCI, systolic heart failure, VT status post AICD, diabetes mellitus type 2, hypertension, hyperlipidemia. Patient presents from extended care facility secondary to increased confusion. He was found to be in A. fib with RVR with heart rates in the 140s to 150s and was placed on Cardizem drip. Additionally was found to have urinary tract infection with increased white blood cell blood cells and started on antibiotics. He does have increased white blood cell count up to 16. He also has acute kidney injury with creatini ne 1.5. Apparently he was more confused however was placed on BiPAP with some improvement in mentation however still unsure if some of his details. Denies any recent fevers or chills. Denies any chest pain or pressure. Admits he does have some degree of swelling however has been worsening. He was started on Lasix with good urine output. He was not tolerating oral medications and therefore IV metoprolol 2.5 mg every 6 hours was given. Additionally he was started on an amiodarone drip in addition to his oral amiodarone at home. Prior echo from September 2022 shows ejection fraction 35-40%. Objective - Vital Signs Vital signs: Vital Signs Temp 98.4 F 12/16/22 12:00 Pulse 133 H 12/16/22 13:15 Resp 33 H 12/16/22 13:15 BP 94/73 12/16/22 13:00 Pulse Ox 94 L 12/16/22 13:15 FiO2 30 12/16/22 04:00 Intake & Output 12/15/22 12/16/22 12/16/22 18:59 06:59 18:59 Intake Total 509.573 240 295.91 Output Total 870 770 570 Balance -360.427 -530 -274.09 Weight 110.8 kg 112 kg Intake: IV 220 240 140 .9 NS 220 240 140 Intake, IV Titration 289.573 155.91 Amount Norepinephrine 4 mg In 289.573 55.91 Sodium Chloride 0.9% 250 ml @ 0.03 MCG/KG/MIN 12. 287 mls/hr IV .[id number] [facility] Rx#:[id number] Potassium Chloride 10 meq 100 In Water For Injection 1 100ml.bag @ 100 mls/hr IVPB Q1H [facility] Rx#: [id number] Output: Urine 870 770 570 Other: Voiding Method Indwelling Catheter Indwelling Catheter Indwelling Catheter - Labs CBC & Chem 7: 12/16/22 05:50 12/16/22 05:50 Labs: Abnormal Lab Results - Last 24 Hours (Table) 12/15/22 12/15/22 12/16/22 Range/Units 17:06 20:56 05:50 RBC (4.30-5.90) m/uL Hgb (13.0-17.5) gm/dL Hct (39.0-53.0) % MCV (80.0-100.0) fL RDW (11.5-15.5) % Neutrophils # (1.3-7.7) k/uL Lymphocytes # (1.0-4.8) k/uL Macrocytosis Sodium 136 L (137-145) mmol/L BUN 67 H (9-20) mg/dL Creatinine 1.70 H (0.66-1.25) mg/dL Glucose 113 H (74-99) mg/dL POC Glucose (mg/dL) 164 H 167 H (70-110) mg/dL Calcium 8.0 L (8.4-10.2) mg/dL Albumin 2.4 L (3.5-5.0) g/dL 12/16/22 12/16/22 12/16/22 Range/Units 05:50 06:30 06:55 RBC 2.47 L (4.30-5.90) m/uL Hgb 8.2 L D (13.0-17.5) gm/dL Hct 26.2 L (39.0-53.0) % MCV 105.7 H (80.0-100.0) fL RDW 17.9 H (11.5-15.5) % Neutrophils # 8.6 H (1.3-7.7) k/uL Lymphocytes # 0.4 L (1.0-4.8) k/uL Macrocytosis Marked A Sodium (137-145) mmol/L BUN (9-20) mg/dL Creatinine (0.66-1.25) mg/dL Glucose (74-99) mg/dL POC Glucose (mg/dL) 112 H 114 H (70-110) mg/dL Calcium (8.4-10.2) mg/dL Albumin (3.5-5.0) g/dL 12/16/22 Range/Units 11:16 RBC (4.30-5.90) m/uL Hgb (13.0-17.5) gm/dL Hct (39.0-53.0) % MCV (80.0-100.0) fL RDW (11.5-15.5) % Neutrophils # (1.3-7.7) k/uL Lymphocytes # (1.0-4.8) k/uL Macrocytosis Sodium (137-145) mmol/L BUN (9-20) mg/dL Creatinine (0.66-1.25) mg/dL Glucose (74-99) mg/dL POC Glucose (mg/dL) 217 H (70-110) mg/dL Calcium (8.4-10.2) mg/dL Albumin (3.5-5.0) g/dL Microbiology - Last 24 Hours (Table) 12/14/22 19:05 Blood Culture Gram Stain - Preliminary Blood Blood Culture - Preliminary Gram Neg Bacilli 12/14/22 19:05 Blood Culture Gram Stain - Preliminary Blood Blood Culture - Preliminary Gram Neg Bacilli 12/15/22 02:45 Urine Culture - Final Urine,Catheterized
--- NOTE | 2022-12-16 15:21 | P.PN ---
Subjective Progress Note Date: 12/16/22 Patient is a 72-year-old male with an extensive damage including systolic CHF, A. fib on Eliquis, CAD status post stents, COPD, type II DM, hypertension, who presents to the emergency room for concerns for tachycardia from SNF. Patient is a poor historian and majority of information is obtained from the chart. In the ED, Tmax was 100.1F. He was tachypneic with RR of 32, HR in the 120s with BP as low as 93/68. EKG showed atrial flutter with RVR and Q waves. CBC showed WBC 16.7, Hg 10.9, MCV 106. INR was 1.4. ABG showed pH 7.41, pCO2 45. CMP shows K 5.2, BUN 58, Cr 1.54, glucose 240. Troponin was 0.023, 0.022. Lactic acid 1.7. BNP 84218. UA showed large blood and large LE. He was initially admitted for Dr. Kaufman to the [facility]. A-team was called for hypotension and patient was subsequently transferred to the ICU. 12/16 Patient was seen and examined. Patient is currently being treated for A- Fib with RVR and Urosepsis. Blood culture + GNB. UCx negative. CBC shows Hg 8.2 MCV 105.7. CMP shows Na 136, BUN 67, Cr 1.7, glucose 113, Ca 8, albumin 2.4. Currently on Rocephin 2g IV QD. He is on Lasix 40 mg IV BID. He is on Amiodarone 200 mg PO QD. Amiodarone drip discontinued and weaned off Levophed. General: nontoxic, no distress, appears at stated age Derm: warm, dry Head: atraumatic, normocephalic, symmetric Eyes: EOMI, no lid lag, anicteric sclera Cardiovascular: S1S2 irregular irregular, no murmur Lungs: Coarse BS bilateral, no rhonchi, bibasilar rales , no accessory muscle use Ext: no gross muscle atrophy, 2+ edema, no contractures Neuro: no focal neuro deficits Psych: Alert, oriented, appropriate affect Septic shock secondary to urosepsis Acute on chronic systolic CHF exacerbation Atrial fibrillation with RVR Acute kidney injury on chronic kidney disease Macrocytic anemia Based on my assessment of this patient, this patient meets a high complexity level of care. Patient has an acute diagnosis of urosepsis with septic shock requiring pressors that poses a threat to life or bodily function. Septic shock secondary to gram negative bacteremia: Maintain MAP > 65. Levophed if necessary. Continue Rocpehin as above. Repeat BCx. Telemetry monitoring. Acute on chronic systolic CHF exacerbation: Prior echo from September 2022 shows ejection fraction 35-40%. Cardiology on board. Lasix 40 mg IV BID. Holding beta evin and Entresto for hypotension. Intake and Outtake. Daily weights. Atrial fibrillation with RVR: Amiodarone as above. Eliquis 5 mg PO BID for AC. Acute kidney injury on chronic kidney disease: Monitor since patient is on Lasix IV. Macrocytic anemia: Transfuse if Hg < 7. I have reviewed the following advertising consultant notes: Cardiology and Pulm note reviewed. I have reviewed the results of the following tests: CBC and CMP reviewed as above. I have ordered the following tests: CBC and BMP ordered for tomorrow morning. I have discussed the care of this patient with the following independent historian: I have independently interpreted the following test below: I have discussed the management of this patient with the following physician: Objective - Vital Signs Vital signs: Vital Signs Temp 98.4 F 12/16/22 12:00 Pulse 135 H 12/16/22 15:00 Resp 14 12/16/22 15:00 BP 83/61 12/16/22 15:00 Pulse Ox 95 12/16/22 15:00 FiO2 30 12/16/22 04:00 Intake & Output 12/15/22 12/16/22 12/16/22 18:59 06:59 18:59 Intake Total 509.573 240 295.91 Output Total 870 770 570 Balance -360.427 -530 -274.09 Weight 110.8 kg 112 kg Intake: IV 220 240 140 .9 NS 220 240 140 Intake, IV Titration 289.573 155.91 Amount Norepinephrine 4 mg In 289.573 55.91 Sodium Chloride 0.9% 250 ml @ 0.03 MCG/KG/MIN 12. 287 mls/hr IV .[id number] [facility] Rx#:[id number] Potassium Chloride 10 meq 100 In Water For Injection 1 100ml.bag @ 100 mls/hr IVPB Q1H [facility] Rx#: [id number] Output: Urine 870 770 570 Other: Voiding Method Indwelling Catheter Indwelling Catheter Indwelling Catheter - Labs CBC & Chem 7: 12/16/22 05:50 12/16/22 05:50 Labs: Abnormal Lab Results - Last 24 Hours (Table) 12/15/22 12/15/22 12/16/22 Range/Units 17:06 20:56 05:50 RBC (4.30-5.90) m/uL Hgb (13.0-17.5) gm/dL Hct (39.0-53.0) % MCV (80.0-100.0) fL RDW (11.5-15.5) % Neutrophils # (1.3-7.7) k/uL Lymphocytes # (1.0-4.8) k/uL Macrocytosis Sodium 136 L (137-145) mmol/L BUN 67 H (9-20) mg/dL Creatinine 1.70 H (0.66-1.25) mg/dL Glucose 113 H (74-99) mg/dL POC Glucose (mg/dL) 164 H 167 H (70-110) mg/dL Calcium 8.0 L (8.4-10.2) mg/dL Albumin 2.4 L (3.5-5.0) g/dL 12/16/22 12/16/22 12/16/22 Range/Units 05:50 06:30 06:55 RBC 2.47 L (4.30-5.90) m/uL Hgb 8.2 L D (13.0-17.5) gm/dL Hct 26.2 L (39.0-53.0) % MCV 105.7 H (80.0-100.0) fL RDW 17.9 H (11.5-15.5) % Neutrophils # 8.6 H (1.3-7.7) k/uL Lymphocytes # 0.4 L (1.0-4.8) k/uL Macrocytosis Marked A Sodium (137-145) mmol/L BUN (9-20) mg/dL Creatinine (0.66-1.25) mg/dL Glucose (74-99) mg/dL POC Glucose (mg/dL) 112 H 114 H (70-110) mg/dL Calcium (8.4-10.2) mg/dL Albumin (3.5-5.0) g/dL 10/11/23 Range/Units 11:16 RBC (4.30-5.90) m/uL Hgb (13.0-17.5) gm/dL Hct (39.0-53.0) % MCV (80.0-100.0) fL RDW (11.5-15.5) % Neutrophils # (1.3-7.7) k/uL Lymphocytes # (1.0-4.8) k/uL Macrocytosis Sodium (137-145) mmol/L BUN (9-20) mg/dL Creatinine (0.66-1.25) mg/dL Glucose (74-99) mg/dL POC Glucose (mg/dL) 217 H (70-110) mg/dL Calcium (8.4-10.2) mg/dL Albumin (3.5-5.0) g/dL Microbiology - Last 24 Hours (Table) 12/14/22 19:05 Blood Culture Gram Stain - Preliminary Blood Blood Culture - Preliminary Gram Neg Bacilli 12/14/22 19:05 Blood Culture Gram Stain - Preliminary Blood Blood Culture - Preliminary Gram Neg Bacilli 12/15/22 02:45 Urine Culture - Final Urine,Catheterized
[2022-12-16 16:49] LABS: Anisocytosis Slight; HCT 27.2 % (39.0-53.0); HGB 8.5 gm/dL (13.0-17.5); Hypochromasia Marked; MCH 33.5 pg (25.0-35.0); MCHC 31.4 g/dL (31.0-37.0); MCV 106.6 fL (80.0-100.0); Macrocytosis Marked; Mean Platelet Volume 7.8; Platelet Count 206 k/uL (150-450); Poikilocytosis Moderate; RBC 2.55 m/uL (4.30-5.90); RDW 17.8 % (11.5-15.5)
[2022-12-16 16:53] LABS: Glucose,Whole Blood 159 mg/dL (70-110)
[2022-12-16] MEDS: MULTIVITAMINS, THERA 1 EACH TAB PO SCH (17:01)
[2022-12-16] MEDS ORDERED: METOPROLOL TARTRATE 25 MG TAB PO STA (17:23)
[2022-12-16] MEDS: NOREPINEPHRINE 4 MG in SODIUM CHLORIDE 0.9% 250 ML IV SCH (18:07)
[2022-12-16 20:27] LABS: Glucose,Whole Blood 256 mg/dL (70-110)
[2022-12-16] MEDS: SERTRALINE 50 MG TAB PO SCH (21:56)
[2022-12-16] MEDS: ATORVASTATIN 40 MG TAB PO SCH (21:56)
[2022-12-16] MEDS: risperiDONE 0.5 MG TAB PO SCH (21:56)
[2022-12-16 22:11] LABS: Glucose,Whole Blood 377 mg/dL (70-110)
[2022-12-17 06:37] LABS: Glucose,Whole Blood 299 mg/dL (70-110)
--- NOTE | 2022-12-17 06:37 | P.PN ---
Subjective Progress Note Date: 12/17/22 Subjective: Patient is seen and examined at bedside the same. Yesterday evening about 6:54 PM patient went into atrial fibrillation with RVR with heart rates in 130s to 140s beats per minute. At that time one dose of extra metoprolol tartrate 25 mg was given. Further beta blockers were not given because of congestive heart failure. This morning patient's heart rate is ranging around 110 beats a minute. Underlying rhythm is atrial fibrillation. Patient is still volume overloaded. PHYSICAL EXAMINATION Vital signs reviewed. CONSTITUTIONAL: No apparent distress, confused HEENT: Head is normocephalic. Pupils are equal, round. Sclerae anicteric. Mucous membranes of the mouth are moist. No JVD. No carotid bruit. CHEST EXAMINATION: Lungs are clear to auscultation. No chest wall tenderness is noted on palpation or with deep breathing. HEART EXAMINATION: Irregular rhythm. S1, S2 heard. No murmurs, gallops or rub. ABDOMEN: Soft, nontender. Positive bowel sounds. EXTREMITIES: 2+ lower extremity edema NEUROLOGIC EXAMINATION: Patient is awake, alert and oriented x3. ASSESSMENT 1. Acute on chronic systolic heart failure 2. Altered mental status likely component of sepsis 3. Hypotension, likely component of sepsis on low-dose norepinephrine 4. Persistent A. fib with RVR 5. Hypertension 6. Cardiomyopathy ejection fraction 35-40% 7. History of coronary artery disease 8. Urinary tract infection 9. Acute kidney injury PLAN Patient continues to be significantly volume overloaded. Continue Lasix 40 mg IV twice a day. Give metolazone 2.5 mg 30 min before lasix. Reduce aspirin to 81 mg daily Stop Plavix Continue Eliquis 5 mg twice a day Hold Entresto for 1-2 days. until Bp improves Continue metoprolol succinate 25 mg daily. Will not increase dose as patient is in significant congestive heart failure Continue amiodarone 200 mg daily. Synopsis Patient is pleasant 72-year-old male with history of persistent atrial fibrillation, CAD with prior PCI, systolic heart failure, VT status post AICD, diabetes mellitus type 2, hypertension, hyperlipidemia. Patient presents from extended care facility secondary to increased confusion. He was found to be in A. fib with RVR with heart rates in the 140s to 150s and was placed on Cardizem drip. Additionally was found to have urinary tract infection with increased white blood cell blood cells and started on antibiotics. He does have increased white blood cell count up to 16. He also has acute kidney injury with creatinin e 1.5. Apparently he was more confused however was placed on BiPAP with some improvement in mentation however still unsure if some of his details. Denies any recent fevers or chills. Denies any chest pain or pressure. Admits he does have some degree of swelling however has been worsening. He was started on Lasix with good urine output. He was not tolerating oral medications and therefore IV metoprolol 2.5 mg every 6 hours was given. Additionally he was started on an amiodarone drip in addition to his oral amiodarone at home. Prior echo from September 2022 shows ejection fraction 35-40%. Objective - Vital Signs Vital signs: Vital Signs Temp 98 F 12/17/22 04:00 Pulse 114 H 12/17/22 04:00 Resp 20 12/17/22 04:00 BP 99/63 12/17/22 04:00 Pulse Ox 96 12/17/22 04:00 FiO2 30 12/17/22 05:12 Intake & Output 12/16/22 12/16/22 12/17/22 06:59 18:59 06:59 Intake Total 240 535.91 620 Output Total 770 1320 925 Balance -530 -784.09 -305 Weight 112 kg 114.3 kg Intake: IV 240 140 120 .9 NS 240 140 120 Intake, IV Titration 155.91 Amount Norepinephrine 4 mg In 55.91 Sodium Chloride 0.9% 250 ml @ 0.03 MCG/KG/MIN 12. 287 mls/hr IV .[id number] [facility] Rx#:[id number] Potassium Chloride 10 meq 100 In Water For Injection 1 100ml.bag @ 100 mls/hr IVPB Q1H [facility] Rx#: [id number] Oral 240 500 Output: Urine 770 1320 925 Other: Voiding Method Indwelling Catheter Indwelling Catheter Indwelling Catheter - Labs CBC & Chem 7: 12/16/22 16:34 12/16/22 05:50 Labs: Abnormal Lab Results - Last 24 Hours (Table) 12/16/22 12/16/22 12/16/22 Range/Units 06:55 11:16 16:34 RBC 2.55 L (4.30-5.90) m/uL Hgb 8.5 L (13.0-17.5) gm/dL Hct 27.2 L (39.0-53.0) % MCV 106.6 H (80.0-100.0) fL RDW 17.8 H (11.5-15.5) % Macrocytosis Marked A POC Glucose (mg/dL) 114 H 217 H (70-110) mg/dL 12/16/22 12/16/22 12/16/22 Range/Units 16:52 20:25 22:05 RBC (4.30-5.90) m/uL Hgb (13.0-17.5) gm/dL Hct (39.0-53.0) % MCV (80.0-100.0) fL RDW (11.5-15.5) % Macrocytosis POC Glucose (mg/dL) 159 H 256 H 377 H (70-110) mg/dL Microbiology - Last 24 Hours (Table) 12/14/22 19:05 Blood Culture Gram Stain - Preliminary Blood Blood Culture - Preliminary Gram Neg Bacilli 12/14/22 19:05 Blood Culture Gram Stain - Preliminary Blood Blood Culture - Preliminary Gram Neg Bacilli 12/15/22 02:45 Urine Culture - Final Urine,Catheterized
[2022-12-17] MEDS: INSULIN ASPART (NovoLOG) 100 UNIT/ML VIAL SQ SCH ×4 (07:10→20:46)
[2022-12-17 07:38] LABS: Anisocytosis Slight; Basophils % (A) 0 %; Eosinophils # (A) 0.1 k/uL (0-0.7); Eosinophils % (A) 2 %; HCT 25.9 % (39.0-53.0); Hypochromasia Marked; Lymphocytes # (A) 0.3 k/uL (1.0-4.8); Lymphocytes % (A) 6 %; MCH 32.7 pg (25.0-35.0); MCHC 30.9 g/dL (31.0-37.0); MCV 105.7 fL (80.0-100.0); Macrocytosis Marked; Mean Platelet Volume 8.2; Monocytes # (A) 0.5 k/uL (0-1.0); Monocytes % (A) 10 %; Neutrophils # (A) 3.8 k/uL (1.3-7.7); Neutrophils % (A) 79 %; Platelet Count 189 k/uL (150-450); Poikilocytosis Moderate; RBC 2.45 m/uL (4.30-5.90); RDW 17.9 % (11.5-15.5); WBC 4.8 k/uL (3.8-10.6)
[2022-12-17 08:06] LABS: African American GFR (CKD) 61 (>60 ml/min/1.73 sqM); Anion Gap 10 mmol/L; Blood Urea Nitrogen 66 mg/dL (9-20); Calcium 7.8 mg/dL (8.4-10.2); Carbon Dioxide 22 mmol/L (22-30); Chloride 103 mmol/L (98-107); Glucose 128 mg/dL (74-99); Magnesium 2.1 mg/dL (1.6-2.3); Non-African American GFR(CKD) 53 (>60 ml/min/1.73 sqM); Potassium 3.7 mmol/L (3.5-5.1); Sodium 135 mmol/L (137-145)
[2022-12-17] MEDS: BUDESONIDE 1 MG/2 ML NEBU INHALATION SCH ×2 (08:20→20:42)
[2022-12-17] MEDS: IPRATROPIUM-ALBUTEROL 3 ML NEB INHALATION SCH ×3 (08:20→20:42)
[2022-12-17 08:38] LABS: Polychromasia Present
[2022-12-17] MEDS: FUROSEMIDE 10 MG/ML 4 ML VIAL IV SCH ×2 (08:56→20:51)
[2022-12-17] MEDS: NITROGLYCERIN OINT 1 INCH/GM PACKET TOPICAL SCH ×4 (08:56→22:31)
[2022-12-17] MEDS: ASPIRIN 81 MG PO SCH (08:56)
[2022-12-17] MEDS: PANTOPRAZOLE 40 MG/10 ML VIAL IVP SCH (08:56)
[2022-12-17] MEDS: allopurinoL 100 MG TAB PO SCH (08:58)
[2022-12-17] MEDS: METOPROLOL SUCCINATE (ER) 25 MG TAB.ER.24H PO SCH (08:58)
[2022-12-17] MEDS: APIXABAN 5 MG TAB PO SCH ×2 (08:58→16:51)
[2022-12-17] MEDS: ACETAMINOPHEN TAB 500 MG TAB PO SCH ×3 (08:58→21:41)
[2022-12-17] MEDS: THIAMINE 100 MG TAB PO SCH (08:58)
[2022-12-17] MEDS: LIDOCAINE 5% PATCH TOPICAL SCH (08:59)
[2022-12-17] MEDS: AMIODARONE 200 MG TAB PO SCH (08:59)
[2022-12-17] MEDS: metOLazone 2.5 MG TAB PO SCH (09:00)
[2022-12-17] MEDS: CYCLOBENZAPRINE 5 MG TAB PO SCH ×3 (09:00→22:31)
[2022-12-17] MEDS: OXYBUTYNIN XL 5 MG TAB.ER.24 PO SCH (09:01)
[2022-12-17] MEDS ORDERED: Potassium Replacement Protocol 1 EACH MISC MISCELLANE PRN (09:16)
[2022-12-17] MEDS ORDERED: POTASSIUM CHLORIDE ER 20 MEQ TAB.ER PO SCH (10:00)
[2022-12-17 11:27] LABS: Glucose,Whole Blood 190 mg/dL (70-110)
--- NOTE | 2022-12-17 12:38 | P.PN ---
Subjective Progress Note Date: 12/17/22 Patient is a 72-year-old male with an extensive damage including systolic CHF, A. fib on Eliquis, CAD status post stents, COPD, type II DM, hypertension, who presents to the emergency room for concerns for tachycardia from SNF. Patient is a poor historian and majority of information is obtained from the chart. In the ED, Tmax was 100.1F. He was tachypneic with RR of 32, HR in the 120s with BP as low as 93/68. EKG showed atrial flutter with RVR and Q waves. CBC showed WBC 16.7, Hg 10.9, MCV 106. INR was 1.4. ABG showed pH 7.41, pCO2 45. CMP shows K 5.2, BUN 58, Cr 1.54, glucose 240. Troponin was 0.023, 0.022. Lactic acid 1.7. BNP 03168. UA showed large blood and large LE. He was initially admitted for Dr. Kaufman to the [facility]. A-team was called for hypotension and patient was subsequently transferred to the ICU. Blood cultures grew gram negative bacilli. Urine culture was negative. He is continued on Rocephin while awaiting finalized cultures. 12/16 Patient was seen and examined. Patient is currently being treated for A- Fib with RVR and Urosepsis. Blood culture + GNB. UCx negative. CBC shows Hg 8.2 MCV 105.7. CMP shows Na 136, BUN 67, Cr 1.7, glucose 113, Ca 8, albumin 2.4. Currently on Rocephin 2g IV QD. He is on Lasix 40 mg IV BID. He is on Amiodarone 200 mg PO QD. Amiodarone drip discontinued and weaned off Levophed. 12/17 Patient was seen and examined. CBC shows Hg 8 with MCV 105.7. BMP shows Na 135, BUN 66, Cr 1.34, glucose 128, Ca 7.8. Mag 2.1. Negative fluid balance of 890 cc over the past 24H. Cardiology recommends continued diuresis with metolazone while continuing ASA, Eliquis, low dose Metoprolol and Amiodarone while holding Entresto until BP improves. He remains off pressors with SBP in the high 90s and low 100s, HR improved to 110s. General: nontoxic, no distress, appears at stated age Derm: warm, dry Head: atraumatic, normocephalic, symmetric Eyes: EOMI, no lid lag, anicteric sclera Cardiovascular: S1S2 irregular irregular, no murmur Lungs: Coarse BS bilateral, no rhonchi, bibasilar rales , no accessory muscle use Ext: no gross muscle atrophy, 2+ edema, no contractures Neuro: no focal neuro deficits Psych: Alert, oriented, slow to respond Septic shock secondary to gram negative bacteremia Acute on chronic systolic CHF exacerbation Atrial fibrillation with RVR Acute kidney injury on chronic kidney disease Diabetes mellitus with hyperglycemia Macrocytic anemia Based on my assessment of this patient, this patient meets a high complexity level of care. Patient has an acute diagnosis of urosepsis with septic shock requiring pressors that poses a threat to life or bodily function. Septic shock secondary to gram negative bacteremia: Maintain MAP > 65. Levophed if necessary. Continue Rocephin as above. Repeat BCx. Telemetry monitoring. Consult ID. Acute on chronic systolic CHF exacerbation: Prior echo from September 2022 shows ejection fraction 35-40%. Cardiology on board. Lasix 40 mg IV BID. Metolazone 2.5 mg PO QD added on 12/17. Metoprolol 25 mg PO QD. Holding Entresto for hypotension. Intake and Outtake. Daily weights. Atrial fibrillation with RVR: Amiodarone as above. Eliquis 5 mg PO BID for AC. Acute kidney injury on chronic kidney disease: Monitor since patient is on Lasix IV. Diabetes mellitus with hyperglycemia: ISS. Accuchecks ACHS. Hypoglycemic precautions. Add Levemir 10 units QHS. Macrocytic anemia: Transfuse if Hg < 7. I have reviewed the following animal nutrition consultant notes: Cardiology note reviewed. I have reviewed the results of the following tests: CBC, Mag and BMP reviewed as above. I have ordered the following tests: CBC and BMP ordered for tomorrow morning. Blood cultures. I have discussed the care of this patient with the following independent historian: I have independently interpreted the following test below: I have discussed the management of this patient with the following physician: Lasix IV - intensive monitoring - renal function Objective - Vital Signs Vital signs: Vital Signs Temp 98 F 12/17/22 04:00 Pulse 111 H 12/17/22 08:20 Resp 22 12/17/22 08:20 BP 99/63 12/17/22 04:00 Pulse Ox 96 12/17/22 04:00 FiO2 30 12/17/22 08:20 Intake & Output 12/16/22 12/17/22 12/17/22 18:59 06:59 18:59 Intake Total 535.91 620 Output Total 1320 925 Balance -784.09 -305 Weight 114.3 kg Intake: IV 140 120 .9 NS 140 120 Intake, IV Titration 155.91 Amount Norepinephrine 4 mg In 55.91 Sodium Chloride 0.9% 250 ml @ 0.03 MCG/KG/MIN 12. 287 mls/hr IV .[id number] [facility] Rx#:[id number] Potassium Chloride 10 meq 100 In Water For Injection 1 100ml.bag @ 100 mls/hr IVPB Q1H [facility] Rx#: [id number] Oral 240 500 Output: Urine 1320 925 Other: Voiding Method Indwelling Catheter Indwelling Catheter - Labs CBC & Chem 7: 12/17/22 07:03 12/17/22 07:03 Labs: Abnormal Lab Results - Last 24 Hours (Table) 12/16/22 12/16/22 12/16/22 Range/Units 11:16 16:34 16:52 RBC 2.55 L (4.30-5.90) m/uL Hgb 8.5 L (13.0-17.5) gm/dL Hct 27.2 L (39.0-53.0) % MCV 106.6 H (80.0-100.0) fL MCHC (31.0-37.0) g/dL RDW 17.8 H (11.5-15.5) % Macrocytosis Marked A Sodium (137-145) mmol/L BUN (9-20) mg/dL Creatinine (0.66-1.25) mg/dL Glucose (74-99) mg/dL POC Glucose (mg/dL) 217 H 159 H (70-110) mg/dL Calcium (8.4-10.2) mg/dL 12/16/22 12/16/22 12/17/22 Range/Units 20:25 22:05 06:36 RBC (4.30-5.90) m/uL Hgb (13.0-17.5) gm/dL Hct (39.0-53.0) % MCV (80.0-100.0) fL MCHC (31.0-37.0) g/dL RDW (11.5-15.5) % Macrocytosis Sodium (137-145) mmol/L BUN (9-20) mg/dL Creatinine (0.66-1.25) mg/dL Glucose (74-99) mg/dL POC Glucose (mg/dL) 256 H 377 H 299 H (70-110) mg/dL Calcium (8.4-10.2) mg/dL 12/17/22 12/17/22 Range/Units 07:03 07:03 RBC 2.45 L (4.30-5.90) m/uL Hgb 8.0 L (13.0-17.5) gm/dL Hct 25.9 L (39.0-53.0) % MCV 105.7 H (80.0-100.0) fL MCHC 30.9 L (31.0-37.0) g/dL RDW 17.9 H (11.5-15.5) % Macrocytosis Marked A Sodium 135 L (137-145) mmol/L BUN 66 H (9-20) mg/dL Creatinine 1.34 H (0.66-1.25) mg/dL Glucose 128 H (74-99) mg/dL POC Glucose (mg/dL) (70-110) mg/dL Calcium 7.8 L (8.4-10.2) mg/dL Microbiology - Last 24 Hours (Table) 12/14/22 19:05 Blood Culture Gram Stain - Preliminary Blood Blood Culture - Preliminary Gram Neg Bacilli 12/14/22 19:05 Blood Culture Gram Stain - Preliminary Blood Blood Culture - Preliminary Gram Neg Bacilli 12/15/22 02:45 Urine Culture - Final Urine,Catheterized
--- NOTE | 2022-12-17 12:42 | P.PN ---
Subjective Progress Note Date: 12/17/22 Principal diagnosis: Acute hypoxic respiratory failure with acute systolic congestive heart failure and urosepsis, and gram-negative bacteremia I am seeing this patient in new consultation today 12/15/2022 on the cardiac stepdown unit after an A-team was called overhead. Patient is a 72-year-old white male with past medical history significant for paroxysmal atrial fibrillat ion, coronary artery disease with prior coronary stents, heart failure, V-tach s/p AICD, diabetes mellitus, hyperlipidemia, hypertension. Patient was brought into the emergency room yesterday afternoon from his extended care facility. I am told that he stays at [facility], and that he was found to be confused and tachycardic on rounds at the outside facility. While in the emergency room, he was found to be in atrial fibrillation with rapid ventricular rate. He has chronic atrial fibrillation. He was started on Cardizem 5 mg per hour for rate control. Urinalysis is also concerning for UTI and urosepsis. He has been started on Rocephin. CBC on arrival showed some leukocytosis with a WBC count of 16.7, hemoglobin 10.9, hematocrit 34.4, platelets 278. BMP on arrival showed a sodium of 138, potassium 5.2, chloride 99, serum bicarbonate 23, BUN 58, creatinine 1.54, glucose 240. There is a component of acute kidney injury. NT proBNP was also elevated at 24,000. Chest x-ray on arrival showed cardiomegaly with pulmonary vascular congestion, and small bilateral pleural effusions concerning for CHF exacerbation. Patient has known history of systolic heart failure with a left ventricular ejection fraction of 35-40%, along with moderate mitral and tricuspid regurgitation with moderate pulmonary hypertension. Patient has been started on Lasix 40 mg 3 times a day. Patient was originally admitted to the cardiac stepdown unit. On my evaluation, the patient is currently in room 367. He is minimally responsive to sternal rub. He is tachypneic and tachycardic. Cardizem is still infusing at 5 mg per hour. He is in some respiratory distress, and was placed on the BiPAP with settings of 12/6 and FiO2 of 60%. ABGs show pO2 of 181, pCO2 45, pH of 7.41 on these settings. Patient was ultimately transferred to the intensive care unit for closer monitoring. While in ICU, his blood pressure did become hypotensive and he was started on low-dose norepinephrine which is currently infusing at 0.03 mics per kilogram per minute. Cardizem was stopped due to hypotension, and switch to a miodarone per protocol. He is still confused, but is more alert to verbal and painful stimuli. Patient will be monitored in the intensive care unit. Patient was admitted on , remains in the ICU, he was on BiPAP last night 02/10/30% now the patient is on nasal cannula at 4 L, doing well, relatively asymptomatic, he is on ceftriaxone for his positive blood cultures showing gram- negative bacilli which is likely coming from his urosepsis. Patient is hemodynamically stable, not requiring any pressors, does not seem to be in any distress. WBC count is 9.6 hemoglobin 8.2 lites are normal BUN is 67 creatinine 1.70. Considering his relative stability I will transfer the patient out of the ICU to a monitor bed on . Reevaluated today on 12/17/2022, patient continues to do well, steadily improving. He is hemodynamically stable, not requiring any pressors at this point. At night he was on BiPAP 02/10/30% now he is on 2 L nasal cannula, blood cultures were positive for gram-negative bacilli, most likely source is his urine, turned out to be Proteus mirabilis and it is quite sensitive to all antibiotics, 2 blood cultures were noted to be positive for Proteus. Patient remains on ceftriaxone at 2 g daily. WBC count is 4.8 hemoglobin is 8 basic metabolic profile is normal renal profile is improving with creatinine down to 1.34, it was 1.7 yesterday Objective - Vital Signs Vital signs: Vital Signs Temp 96.4 F L 12/17/22 08:00 Pulse 128 H 12/17/22 10:00 Resp 16 12/17/22 10:00 BP 112/75 12/17/22 10:00 Pulse Ox 95 12/17/22 10:00 FiO2 30 12/17/22 08:20 Intake & Output 12/16/22 12/17/22 12/17/22 18:59 06:59 18:59 Intake Total 535.91 620 Output Total 1320 925 Balance -784.09 -305 Weight 114.3 kg Intake: IV 140 120 .9 NS 140 120 Intake, IV Titration 155.91 Amount Norepinephrine 4 mg In 55.91 Sodium Chloride 0.9% 250 ml @ 0.03 MCG/KG/MIN 12. 287 mls/hr IV .[id number] [facility] Rx#:[id number] Potassium Chloride 10 meq 100 In Water For Injection 1 100ml.bag @ 100 mls/hr IVPB Q1H [facility] Rx#: [id number] Oral 240 500 Output: Urine 1320 925 Other: Voiding Method Indwelling Catheter Indwelling Catheter Indwelling Catheter - Exam Physical Exam: Revealed 72-year-old white male in no distress on 2 L nasal c annula Head: Atraumatic, normocephalic. HEENT:[Neck is supple.] [No neck masses.] [No thyromegaly.] [No JVD.] Chest: [Diminished breath sounds at the bases no crackles or rhonchi or wheezes Cardiac Exam: [Normal S1 and S2, no S3 gallop, no murmur.] Abdomen: [Soft, nontender, no megaly, no rebound, no guarding, normal bowel sounds.] Extremities: [No clubbing, 2+ bipedal edema, no cyanosis.] Neurological Exam: [No focal neurologic deficit.] Alert oriented 3 Psychiatric: Normal mood affect and normal mental status examination. - Labs CBC & Chem 7: 12/17/22 07:03 12/17/22 07:03 Labs: Abnormal Lab Results - Last 24 Hours (Table) 12/16/22 12/16/22 12/16/22 Range/Units 16:34 16:52 20:25 RBC 2.55 L (4.30-5.90) m/uL Hgb 8.5 L (13.0-17.5) gm/dL Hct 27.2 L (39.0-53.0) % MCV 106.6 H (80.0-100.0) fL MCHC (31.0-37.0) g/dL RDW 17.8 H (11.5-15.5) % Lymphocytes # (1.0-4.8) k/uL Macrocytosis Marked A Sodium (137-145) mmol/L BUN (9-20) mg/dL Creatinine (0.66-1.25) mg/dL Glucose (74-99) mg/dL POC Glucose (mg/dL) 159 H 256 H (70-110) mg/dL Calcium (8.4-10.2) mg/dL 12/16/22 12/17/22 12/17/22 Range/Units 22:05 06:36 07:03 RBC 2.45 L (4.30-5.90) m/uL Hgb 8.0 L (13.0-17.5) gm/dL Hct 25.9 L (39.0-53.0) % MCV 105.7 H (80.0-100.0) fL MCHC 30.9 L (31.0-37.0) g/dL RDW 17.9 H (11.5-15.5) % Lymphocytes # 0.3 L (1.0-4.8) k/uL Macrocytosis Marked A Sodium (137-145) mmol/L BUN (9-20) mg/dL Creatinine (0.66-1.25) mg/dL Glucose (74-99) mg/dL POC Glucose (mg/dL) 377 H 299 H (70-110) mg/dL Calcium (8.4-10.2) mg/dL 12/17/22 12/17/22 Range/Units 07:03 11:26 RBC (4.30-5.90) m/uL Hgb (13.0-17.5) gm/dL Hct (39.0-53.0) % MCV (80.0-100.0) fL MCHC (31.0-37.0) g/dL RDW (11.5-15.5) % Lymphocytes # (1.0-4.8) k/uL Macrocytosis Sodium 135 L (137-145) mmol/L BUN 66 H (9-20) mg/dL Creatinine 1.34 H (0.66-1.25) mg/dL Glucose 128 H (74-99) mg/dL POC Glucose (mg/dL) 190 H (70-110) mg/dL Calcium 7.8 L (8.4-10.2) mg/dL Microbiology - Last 24 Hours (Table) 12/14/22 19:05 Blood Culture Gram Stain - Final Blood Blood Culture - Final Proteus mirabilis 12/14/22 19:05 Blood Culture Gram Stain - Final Blood Blood Culture - Final Proteus mirabilis 12/15/22 02:45 Urine Culture - Final Urine,Catheterized Assessment and Plan Assessment: Impression: Acute hypoxemic respiratory failure, currently on BiPAP, secondary to systolic CHF exacerbation. Chest x-ray on arrival shows cardiomegaly, pulmonary vascular congestion, and bilateral pleural effusions concerning for CHF exacerbation. NT proBNP was elevated at 24,000. Gram-negative bacteremia and urosepsis, secondary to Proteus mirabilis sensitive to most antibiotics UTI and urosepsis, improving with antibiotics. Patient is on ceftriaxone Septic shock, resolved Leukocytosis, secondary to above Acute kidney injury, improving creatinine is down to 1.34 Atrial fibrillation with rapid ventricular rate but presently rate remains high and not fully controlled. Cardiology is addressing History of ischemic cardiomyopathy, recent echocardiogram done September, showed a reduced ejection fraction of 35-40% along with moderate mitral and tricuspid regurgitation, moderate pulmonary hypertension. History of nonsustained ventricular tachycardia, status post AICD implantation Coronary artery disease, with prior coronary PCI Diabetes mellitus type 2 Benign essential hypertension Hyperlipidemia Obesity, with a BMI of 36 kg/m Recommendation: Consider transferring the patient to a cardiac bed with telemetry Continue present supportive care measures Continue Lasix Continue antibiotics, on ceftriaxone Continue cardiac meds as per cardiology on the case. Transfer patient to a monitor bed on selective, once a bed is available We'll continue to follow Use BiPAP at night. Time with Patient: Less than 30
[2022-12-17] MEDS: IOPAMIDOL CONTRAST (ORAL USE) VIAL PO PRN ×2 (16:46→17:43)
[2022-12-17] MEDS: NOREPINEPHRINE 4 MG in SODIUM CHLORIDE 0.9% 250 ML IV SCH (16:49)
[2022-12-17] MEDS: MULTIVITAMINS, THERA 1 EACH TAB PO SCH (16:51)
--- NOTE | 2022-12-17 18:43 | CT ---
EXAMINATION TYPE: CT abdomen pelvis wo con DATE OF EXAM: 12/17/2022 COMPARISON: 10/01/2022 HISTORY: 72-year-old male bacteremia /abd source. CT DLP: 1203.4 mGycm. Automated exposure control for dose reduction was used. TECHNIQUE: Contiguous axial scanning of the abdomen and pelvis without IV contrast. Coronal and sagit aditi reconstructions performed. FINDINGS: Cardiac pacer leads are present. Heart borderline enlarged. Prominent dependent atelectasis in the vi sualized lower lungs. Contrast noted throughout the esophagus. This could reflect esophageal dysmotility or gastroesophagea l reflux disease. Liver enlarged measuring 20.3 cm Gallbladder borderline hydropic and 4.3 cm wide but without any surrounding inflammation. Spleen enlarged at 15.5 cm. There appears to be trace right-sided perihepatic ascites. Mild thickening of the left adrenal gland is unchanged. Right adrenal gland and pancreas show no gross abnormality by noncontrast CT. There is mild fullness of the right renal collecting system. Probably transient. 2.3 cm medial cortical cyst left kidney. Moderate atherosclerotic calcifications throughout the abdominal aorta and iliac arteries. At least moderate focal stenosis at the SMA origin. Possible severe stenoses of the bilateral renal a rtery origins. No dilated small bowel, free fluid, or free air. Some possible ileal wall thickening in the right lower quadrant. The appendix itself is normal. Mild overall stool burden. Redundant sigmoid colon. There is circumferential rectal wall thickening with mild to moderate perirectal fat stranding. Jacobs catheter is in place. However, there is severe bladder wall thickening and mild perivesicular f at stranding. Patulous left neural canal. No abnormal fluid collection in the pelvis or pelvic lymphadenopathy. Bones: Osteopenia. Moderate degenerative change of the hips. Degenerative bony ankylosis SI joints. No L2 vertebral compression collapse. Interval vertebroplasty here. Similar retropulsion centrally to moderate focal spinal canal stenosis. There is vertebroplasty change and posterior thoracic fusion h ardware seen at the T8 level extending up beyond the [id number]. Mild paravertebral hematoma here is likely postoperative. Correlate with the time since surgery. IMPRESSION: 1. Severe bladder wall thickening with a mild surrounding fat stranding. Additional circumferential rectal wall thickening with perirectal fat stranding as well. Correlate for cystitis and distal colit is. 2. Possible ileal wall thickening in the right lower quadrant could reflect a concurrent regional en teritis. 3. Hepatosplenomegaly (liver 20.3 cm and spleen 15.5 cm). 4. Partially visualized T8 vertebroplasty and posterior thoracic fusion hardware here extending up b eyond the [id number]. There is mild paravertebral soft tissue thickening, probably postsurgical sw elling and mild hematoma at this level partially visualized. Correlate as to time since surgery.
[2022-12-17] MEDS: INSULIN DETEMIR (LEVEMIR) 100 UNIT/ML SYR SQ SCH (20:46)
[2022-12-17 20:50] LABS: Glucose,Whole Blood 184 mg/dL (70-110)
[2022-12-17] MEDS: ATORVASTATIN 40 MG TAB PO SCH (21:41)
[2022-12-17] MEDS: SERTRALINE 50 MG TAB PO SCH (21:42)
[2022-12-17] MEDS: risperiDONE 0.5 MG TAB PO SCH (21:42)
--- NOTE | 2022-12-17 23:52 | P.CONS ---
History of Present Illness - Reason for Consult Consult date: 12/17/22 - History of Present Illness Patient is a 72-year-old male with a past medical history significant for diabetes mellitus hypertension hyperlipidemia atrial fibrillation and coronary disease patient presented to hospital 3 days ago from a local skilled nursing for evaluation of tachycardia and they were wanting to the patient was having an infection patient did have some chronic confusion but otherwise no symptoms or complaints per patient on arrival to the ER the patient did have a fever 100.1 F, patient was tachycardic did have a white count of 16.7 with a left shift BUN and creatinine was elevated liver enzymes are normal urine was positive patient blood cultures are showing Proteus Mirabella's however urine cultures came back negative that has prompted this infectious disease consultation patient did have a chest x-ray cardiomegaly pulmonary vascular congestion with bilateral effusion patient at time of evaluation, patient denies having any headache or URI symptoms denies any chest pain some shortness of breath minimal cough no sputum production denies any nausea vomiting no abdominal pain no diarrhea Past Medical History Past Medical History: Atrial Fibrillation, Coronary Artery Disease (CAD), Heart Failure, Diabetes Mellitus, Hyperlipidemia, Hypertension Additional Past Medical History / Comment(s): See Dr Piedra's H&P. "Feet cold sometimes". Gout. Hx UTI and kidney infection with Covid. History of Any Multi-Drug Resistant Organisms: None Reported Past Surgical History: Heart Catheterization With Stent, Orthopedic Surgery, Pacemaker Additional Past Surgical History / Comment(s): 2 STENTS DEC 2020, left hip surgery X2. Past Anesthesia/Blood Transfusion Reactions: No Reported Reaction, Postoperative Nausea & Vomiting (PONV) Additional Past Anesthesia/Blood Transfusion Reaction / Comm: UNKNOWN FAMILY HX. Date of Last Stent Placement:: DEC 2020 Type of Cardiac Device: Unknown Device Placement Date:: Unknown Past Psychological History: Anxiety, Depression Smoking Status: Former smoker Past Alcohol Use History: None Reported Additional Past Alcohol Use History / Comment(s): QUIT SMOKING AT LEAST 11 YRS AGO. Past Drug Use History: None Reported - Past Family History Mother Family Medical History: Cancer Brother(s) Family Medical History: Cancer Additional Family Medical History / Comment(s): Lung cancer. Father History Unknown: Yes Family Medical History: Hyperlipidemia Medications and Allergies Home Medications Medication Instructions Recorded Confirmed Type Ferrous Sulfate [Iron] 325 mg PO DAILY@1700 10/21/2023 History Sertraline HCl [Zoloft] 50 mg PO HS@209910/21/20 12/14/22 History allopurinoL [Zyloprim] 100 mg PO DAILY@0810/21/20 12/14/22 History risperiDONE [RisperDAL] 0.5 mg PO HS@209910/21/20 12/14/22 History Apixaban [Eliquis] 5 mg PO BID@0800,1700 05/09/21 12/14/22 History Thiamine HCl [Vitamin B-1] 100 mg PO DAILY@0800 05/09/21 12/14/22 History Amiodarone [Cordarone] 200 mg PO DAILY@0800 02/06/22 12/14/22 History Loratadine [Claritin] 10 mg PO DAILY@0802/06/22 12/14/22 History Mv-Min/Folic/K1/Lycopen/Lutein 1 tab PO DAILY@0 02/06/22 12/14/22 History [Centrum Silver Men Tablet] glipiZIDE [Glucotrol] 5 mg PO BID@0800,1700 02/06/22 12/14/22 History Acetaminophen Tab [Tylenol] 1,000 mg PO TID@0800,1400,2200 10/01/22 12/14/22 History Sacubitril/Valsartan [Entresto 24 1 tab PO BID@0800,1700 10/01/22 12/14/22 History mg-26 mg Tablet] Atorvastatin [Lipitor] 40 mg PO HS@209910/16/22 12/14/22 History Clopidogrel [Plavix] 75 mg PO DAILY@0800 10/16/22 12/14/22 History Ergocalciferol (Vitamin D2) 1,250 mcg PO QMONTHLY 10/17/22 12/14/22 History [Drisdol (50,000 Iu)] Lidocaine 5% Patch [Lidoderm 5% 1 patch TOPICAL DAILY 10/17/22 12/14/22 History Patch] HYDROcodone/APAP 7.5-325MG [Wall 1 tab PO Q6HR PRN #21 tab 10/23/22 12/14/22 Rx 7.5-325] Acetaminophen [Tylenol] 650 mg PO Q4H PRN 12/14/22 12/14/22 History Cholecalciferol [Vitamin D3 (25 50 mcg PO DAILY@0800 12/14/22 12/14/22 History Mcg = 1000 Iu)] Cyclobenzaprine [Flexeril] 5 mg PO TID@0600,1400,2200 12/14/22 12/14/22 History Furosemide [Lasix] 40 mg PO BID@0800,1400 12/14/22 12/14/22 History Ipratropium-Albuterol Nebulize 3 ml INHALATION RT-Q6H PRN 12/14/22 12/14/22 History [Duoneb 0.5 mg-3 mg/3 ml Soln] Magnesium Hydroxide [Milk of 7,200 mg PO Q48H PRN 12/14/22 12/14/22 History Magnesia Concentrate] Metoprolol Succinate (ER) [Toprol 150 mg PO BID@0800,2000 12/14/22 12/14/22 History XL] Na Phos,M-B/Na Phos,Di-Ba [Fleet 133 ml RECTAL DAILY PRN 12/14/22 12/14/22 H istory Adult] Potassium Chloride ER [K-Dur 20] 20 meq PO DAILY@0800 12/14/22 12/14/22 History Sodium Bicarbonate Tab 650 mg PO BID@0800,1700 12/14/22 12/14/22 History bisacodyL [Dulcolax] 10 mg RECTAL DAILY PRN 12/14/22 12/14/22 History oxyBUTYnin chloride [oxyBUTYnin 5 mg PO DAILY@0800 12/14/22 12/14/22 History chloride ER] Allergies Allergy/AdvReac Type Severity Reaction Status Date / Time No Known Allergies Allergy Verified 12/14/22 18:41 Physical Exam Vitals: Vital Signs Temp Pulse Pulse Resp BP BP Pulse Ox 12/17/22 22:00 125 H 26 H 125/89 88 L 12/17/22 20:59 122 H 12/17/22 20:42 116 H 12/17/22 20:00 115 H 115 H 27 H 112/77 125/89 99 12/17/22 18:00 113 H 32 H 113/71 96 12/17/22 16:00 105 H 13 112/77 100 12/17/22 14:00 110 H 21 112/77 96 12/17/22 13:45 111 H 22 12/17/22 13:35 110 H 22 12/17/22 12:00 98 F 118 H 24 112/77 97 12/17/22 10:00 128 H 16 112/75 95 12/17/22 08:35 111 H 22 12/17/22 08:20 111 H 22 12/17/22 08:00 96.4 F L 117 H 16 99/63 95 12/17/22 05:12 12/17/22 04:00 98 F 114 H 20 99/63 96 12/17/22 01:59 12/17/22 00:00 97.9 F 118 H 21 104/69 97 FiO2 12/17/22 22:00 12/17/22 20:59 12/17/22 20:42 12/17/22 20:00 12/17/22 18:00 12/17/22 16:00 12/17/22 14:00 12/17/22 13:45 12/17/22 13:35 12/17/22 12:00 12/17/22 10:00 12/17/22 08:35 12/17/22 08:20 30 12/17/22 08:00 12/17/22 05:12 30 12/17/22 04:00 12/17/22 01:59 30 12/17/22 00:00 Intake and Output 12/17/22 12/17/22 12/18/22 14:59 22:59 06:59 Intake Total 1250 Output Total 1875 Balance -625 Intake: Intake, IV Titration 50 Amount cefTRIAXone 2 gm In 50 Sodium Chloride 0.9% 50 ml @ 100 mls/hr IVPB Q24H [facility] Rx#:[id number] Oral 1200 Output: Urine 1875 Other: Voiding Method Indwelling Catheter Results CBC & Chem 7: 12/17/22 07:03 12/17/22 07:03 Labs: Abnormal Lab Results - Last 24 Hours (Table) 12/17/22 12/17/22 12/17/22 Range/Units 06:36 07:03 07:03 RBC 2.45 L (4.30-5.90) m/uL Hgb 8.0 L (13.0-17.5) gm/dL Hct 25.9 L (39.0-53.0) % MCV 105.7 H (80.0-100.0) fL MCHC 30.9 L (31.0-37.0) g/dL RDW 17.9 H (11.5-15.5) % Lymphocytes # 0.3 L (1.0-4.8) k/uL Macrocytosis Marked A Sodium 135 L (137-145) mmol/L BUN 66 H (9-20) mg/dL Creatinine 1.34 H (0.66-1.25) mg/dL Glucose 128 H (74-99) mg/dL POC Glucose (mg/dL) 299 H (70-110) mg/dL Calcium 7.8 L (8.4-10.2) mg/dL 12/17/22 12/17/22 Range/Units 11:26 20:48 RBC (4.30-5.90) m/uL Hgb (13.0-17.5) gm/dL Hct (39.0-53.0) % MCV (80.0-100.0) fL MCHC (31.0-37.0) g/dL RDW (11.5-15.5) % Lymphocytes # (1.0-4.8) k/uL Macrocytosis Sodium (137-145) mmol/L BUN (9-20) mg/dL Creatinine (0.66-1.25) mg/dL Glucose (74-99) mg/dL POC Glucose (mg/dL) 190 H 184 H (70-110) mg/dL Calcium (8.4-10.2) mg/dL Microbiology - Last 24 Hours (Table) 12/14/22 19:05 Blood Culture Gram Stain - Final Blood Blood Culture - Final Proteus mirabilis 12/14/22 19:05 Blood Culture Gram Stain - Final Blood Blood Culture - Final Proteus mirabilis Assessment and Plan Plan: Patient presented to hospital with sepsis in this patient with a fever tachycardia elevated white count source likely urinary as the patient has significantly positive UA and blood cultures are growing Proteus however urine culture has been reported negative possible lab error versus abdominal source of this bacteremia 2-we will repeat a urine culture and check a CT of abdominal pelvis 3-continue Rocephin 2 g daily while waiting for the work-up to be completed We will follow on clinical condition and cultures to further adjust medication if needed Thank you for this consultation we will follow the patient along with you Dictation was produced using [employer] software. please excuse any grammatical, word or spelling errors. Time with Patient: Greater than 30
[2022-12-18 05:41] LABS: Appearance,Urine Clear (Clear); Bacteria,Urine Rare /hpf; Bilirubin,Urine Negative (Negative); Blood,Urine Small (Negative); Color,Urine Colorless; Glucose,Urine (UA) Negative (Negative); Hyaline Casts,Urine 1 /lpf (0-2); Ketones,Urine Negative (Negative); Leukocyte Esterase,Urine Moderate (Negative); Mucus,Urine Rare /hpf; Nitrite,Urine Negative (Negative); PH, Urine 5.5 (5.0-8.0); Protein,Urine Trace (Negative); RBC,Urine 3 /hpf (0-5); Specific Gravity,Urine 1.009 (1.001-1.035); Urobilinogen,Urine <2.0 mg/dL (<2.0); WBC,Urine 9 /hpf (0-5)
[2022-12-18 05:49] LABS: Anisocytosis Slight; HCT 25.4 % (39.0-53.0); Hypochromasia Marked; MCHC 31.6 g/dL (31.0-37.0); MCV 104.3 fL (80.0-100.0); Macrocytosis Moderate; Mean Platelet Volume 8.3; Platelet Count 207 k/uL (150-450); Poikilocytosis Moderate; RBC 2.44 m/uL (4.30-5.90); RDW 17.9 % (11.5-15.5); WBC 6.7 k/uL (3.8-10.6)
[2022-12-18 06:03] LABS: African American GFR (CKD) 61 (>60 ml/min/1.73 sqM); Anion Gap 9 mmol/L; Blood Urea Nitrogen 61 mg/dL (9-20); C Reactive Protein 8.9 mg/dL (<1.0); Calcium 7.8 mg/dL (8.4-10.2); Carbon Dioxide 26 mmol/L (22-30); Chloride 100 mmol/L (98-107); Glucose 115 mg/dL (74-99); Non-African American GFR(CKD) 53 (>60 ml/min/1.73 sqM); Potassium 3.8 mmol/L (3.5-5.1); Sodium 135 mmol/L (137-145)
[2022-12-18 06:36] LABS: Glucose,Whole Blood 123 mg/dL (70-110)
[2022-12-18] MEDS: INSULIN ASPART (NovoLOG) 100 UNIT/ML VIAL SQ SCH ×4 (06:44→21:44)
[2022-12-18] MEDS: CYCLOBENZAPRINE 5 MG TAB PO SCH ×3 (06:56→21:46)
[2022-12-18] MEDS: IPRATROPIUM-ALBUTEROL 3 ML NEB INHALATION SCH ×3 (08:43→22:21)
[2022-12-18] MEDS: BUDESONIDE 1 MG/2 ML NEBU INHALATION SCH ×2 (08:43→22:21)
[2022-12-18] MEDS: PANTOPRAZOLE 40 MG/10 ML VIAL IVP SCH (09:19)
[2022-12-18] MEDS: ACETAMINOPHEN TAB 500 MG TAB PO SCH ×3 (09:19→21:45)
[2022-12-18] MEDS: allopurinoL 100 MG TAB PO SCH (09:19)
[2022-12-18] MEDS: METOPROLOL SUCCINATE (ER) 25 MG TAB.ER.24H PO SCH (09:19)
[2022-12-18] MEDS: NITROGLYCERIN OINT 1 INCH/GM PACKET TOPICAL SCH ×4 (09:19→21:47)
[2022-12-18] MEDS: AMIODARONE 200 MG TAB PO SCH (09:19)
[2022-12-18] MEDS: ASPIRIN 81 MG PO SCH (09:20)
[2022-12-18] MEDS: OXYBUTYNIN XL 5 MG TAB.ER.24 PO SCH (09:20)
[2022-12-18] MEDS: THIAMINE 100 MG TAB PO SCH (09:20)
[2022-12-18] MEDS: metOLazone 2.5 MG TAB PO SCH (09:20)
[2022-12-18] MEDS: APIXABAN 5 MG TAB PO SCH ×2 (09:21→16:50)
[2022-12-18] MEDS: FUROSEMIDE 10 MG/ML 4 ML VIAL IV SCH ×2 (09:21→21:44)
[2022-12-18] MEDS: LIDOCAINE 5% PATCH TOPICAL SCH (09:21)
--- NOTE | 2022-12-18 11:29 | P.PN ---
Subjective Progress Note Date: 12/18/22 Patient is a 72-year-old male with an extensive damage including systolic CHF, A. fib on Eliquis, CAD status post stents, COPD, type II DM, hypertension, who presents to the emergency room for concerns for tachycardia from SNF. Patient is a poor historian and majority of information is obtained from the chart. In the ED, Tmax was 100.1F. He was tachypneic with RR of 32, HR in the 120s with BP as low as 93/68. EKG showed atrial flutter with RVR and Q waves. CBC showed WBC 16.7, Hg 10.9, MCV 106. INR was 1.4. ABG showed pH 7.41, pCO2 45. CMP shows K 5.2, BUN 58, Cr 1.54, glucose 240. Troponin was 0.023, 0.022. Lactic acid 1.7. BNP 49421. UA showed large blood and large LE. He was initially admitted for Dr. Kaufman to the [facility]. A-team was called for hypotension and patient was subsequently transferred to the ICU. Blood cultures grew gram negative bacilli. Urine culture was negative. He is continued on Rocephin while awaiting finalized cultures. 12/16 Patient was seen and examined. Patient is currently being treated for A- Fib with RVR and Urosepsis. Blood culture + GNB. UCx negative. CBC shows Hg 8.2 MCV 105.7. CMP shows Na 136, BUN 67, Cr 1.7, glucose 113, Ca 8, albumin 2.4. Currently on Rocephin 2g IV QD. He is on Lasix 40 mg IV BID. He is on Amiodarone 200 mg PO QD. Amiodarone drip discontinued and weaned off Levophed. 12/17 Patient was seen and examined. CBC shows Hg 8 with MCV 105.7. BMP shows Na 135, BUN 66, Cr 1.34, glucose 128, Ca 7.8. Mag 2.1. Negative fluid balance of 890 cc over the past 24H. Cardiology recommends continued diuresis with metolazone while continuing ASA, Eliquis, low dose Metoprolol and Amiodarone while holding Entresto until BP improves. He remains off pressors with SBP in the high 90s and low 100s, HR improved to 110s. 12/18 Patient was seen and examined. Clinically improved. More alert and communicative. CBC shows Hg 8 with MCV 104.3. BMP shows Na 135, BUN 61, Cr 1.33, glucose 115, Ca 7.8. CRP 8.9. Negative fluid balance of 1089.09 cc over the past 24H. BCx finalized as proteus mirabilis. CT AP done yesterday shows bladder wall thickening along with rectal wall thickening, hepatosplenomegaly. ID recommends repeat UCx. General: nontoxic, no distress, appears at stated age Derm: warm, dry Head: atraumatic, normocephalic, symmetric Eyes: EOMI, no lid lag, anicteric sclera Cardiovascular: S1S2 irregular irregular, no murmur Lungs: Coarse BS bilateral, no rhonchi, bibasilar rales , no accessory muscle use Ext: no gross muscle atrophy, 2+ edema, no contractures Neuro: no focal neuro deficits Psych: Alert, oriented, slow to respond Septic shock secondary to gram negative bacteremia Acute on chronic systolic CHF exacerbation Atrial fibrillation with RVR Acute kidney injury on chronic kidney disease Diabetes mellitus with hyperglycemia Macrocytic anemia Based on my assessment of this patient, this patient meets a high complexity level of care. Patient has an acute diagnosis of urosepsis with septic shock requiring pressors that poses a threat to life or bodily function. Septic shock secondary to gram negative bacteremia: Maintain MAP > 65. Levophed if necessary. Continue Rocephin as above. Repeat BCx. Telemetry monitoring. ID on board. Acute on chronic systolic CHF exacerbation: Prior echo from September 2022 shows ejection fraction 35-40%. Cardiology on board. Lasix 40 mg IV BID. Metolazone 2.5 mg PO QD added on 12/17. Metoprolol 25 mg PO QD. Holding Entresto for hypotension. Intake and Outtake. Daily weights. Atrial fibrillation with RVR: Amiodarone as above. Eliquis 5 mg PO BID for AC. Acute kidney injury on chronic kidney disease: Monitor since patient is on Lasix IV. Diabetes mellitus with hyperglycemia: ISS. Accuchecks ACHS. Hypoglycemic precautions. Add Levemir 10 units QHS. Macrocytic anemia: Transfuse if Hg < 7. I have reviewed the following compensation consultant notes: ID note reviewed. I have reviewed the results of the following tests: CBC, CRP, BMP, CT AP, BCx reviewed as above. I have ordered the following tests: CBC and BMP ordered for tomorrow morning. Blood cultures. I have discussed the care of this patient with the following independent historian: I have independently interpreted the following test below: I have discussed the management of this patient with the following physician: Henry IV - intensive monitoring - renal function Objective - Vital Signs Vital signs: Vital Signs Temp 97.7 F 12/18/22 08:00 Pulse 126 H 12/18/22 09:00 Resp 20 12/18/22 08:00 BP 119/90 12/18/22 08:00 Pulse Ox 96 12/18/22 08:43 FiO2 30 12/18/22 04:00 Intake & Output 12/17/22 12/18/22 12/18/22 18:59 06:59 18:59 Intake Total 1200 50 Output Total 1600 1100 Balance -400 -1050 Weight 113.1 kg Intake: Intake, IV Titration 50 Amount cefTRIAXone 2 gm In 50 Sodium Chloride 0.9% 50 ml @ 100 mls/hr IVPB Q24H [facility] Rx#:[id number] Oral 1200 Output: Urine 1600 1100 Other: Voiding Method Indwelling Catheter Indwelling Catheter Indwelling Catheter - Labs CBC & Chem 7: 12/18/22 05:13 12/18/22 05:13 Labs: Abnormal Lab Results - Last 24 Hours (Table) 12/17/22 12/17/22 12/18/22 Range/Units 11:26 20:48 05:00 RBC (4.30-5.90) m/uL Hgb (13.0-17.5) gm/dL Hct (39.0-53.0) % MCV (80.0-100.0) fL RDW (11.5-15.5) % Sodium (137-145) mmol/L BUN (9-20) mg/dL Creatinine (0.66-1.25) mg/dL Glucose (74-99) mg/dL POC Glucose (mg/dL) 190 H 184 H (70-110) mg/dL Calcium (8.4-10.2) mg/dL C-Reactive Protein (<1.0) mg/dL Urine Protein Trace H (Negative) Urine Blood Small H (Negative) Ur Leukocyte Esterase Moderate H (Negative) Urine WBC 9 H (0-5) /hpf Urine Bacteria Rare H (None) /hpf Urine Mucus Rare H (None) /hpf 12/18/22 12/18/22 12/18/22 Range/Units 05:13 05:13 06:35 RBC 2.44 L (4.30-5.90) m/uL Hgb 8.0 L (13.0-17.5) gm/dL Hct 25.4 L (39.0-53.0) % MCV 104.3 H (80.0-100.0) fL RDW 17.9 H (11.5-15.5) % Sodium 135 L (137-145) mmol/L BUN 61 H (9-20) mg/dL Creatinine 1.33 H (0.66-1.25) mg/dL Glucose 115 H (74-99) mg/dL POC Glucose (mg/dL) 123 H (70-110) mg/dL Calcium 7.8 L (8.4-10.2) mg/dL C-Reactive Protein 8.9 H (<1.0) mg/dL Urine Protein (Negative) Urine Blood (Negative) Ur Leukocyte Esterase (Negative) Urine WBC (0-5) /hpf Urine Bacteria (None) /hpf Urine Mucus (None) /hpf Microbiology - Last 24 Hours (Table) 12/14/22 19:05 Blood Culture Gram Stain - Final Blood Blood Culture - Final Proteus mirabilis 12/14/22 19:05 Blood Culture Gram Stain - Final Blood Blood Culture - Final Proteus mirabilis
[2022-12-18 11:30] LABS: Glucose,Whole Blood 223 mg/dL (70-110)
[2022-12-18] MEDS: NOREPINEPHRINE 4 MG in SODIUM CHLORIDE 0.9% 250 ML IV SCH (12:19)
[2022-12-18 12:32] LABS: Erythrocyte Sedimentation Rate 50 mm/Hr (0-20)
[2022-12-18 16:33] LABS: Glucose,Whole Blood 315 mg/dL (70-110)
[2022-12-18] MEDS: MULTIVITAMINS, THERA 1 EACH TAB PO SCH (16:50)
--- NOTE | 2022-12-18 16:57 | P.PN ---
Subjective Progress Note Date: 12/11/22 Principal diagnosis: Proteus bacteremia possible abdominal source Patient is a 72-year-old male with a past medical history significant for diabetes mellitus hypertension hyperlipidemia atrial fibrillation and coronary disease patient presented to hospital for evaluation of weakness tachycardia. Patient did have evidence of Proteus bacteremia, did have positive UA with urine culture were negative. On today's evaluation that is 12/18/2022, the patient continues to be afebrile the patient is breathing comfortably on 2 L, the patient denies chest pain or cough, patient denies abdominal pain and no nausea/vomiting however is c/o of some diarrhea Patient did have a white count of 6.7, creatinine is 1.33, repeat cultures pending, see the abdominal pelvis with severe bladder wall thickening possible ileal wall thickening and there was concern for possible rectal wall thickening and perirectal fat stranding Objective - Vital Signs Vital signs: Vital Signs Temp 97.7 F 12/18/22 08:00 Pulse 128 H 12/18/22 16:35 Resp 18 12/18/22 16:35 BP 123/75 12/18/22 16:35 Pulse Ox 98 12/18/22 16:35 FiO2 30 12/18/22 04:00 Intake & Output 12/17/22 12/18/22 12/18/22 18:59 06:59 18:59 Intake Total 1200 50 110 Output Total 1600 1100 850 Balance -400 1050 -740 Weight 113.1 kg Intake: Intake, IV Titration 50 Amount cefTRIAXone 2 gm In 50 Sodium Chloride 0.9% 50 ml @ 100 mls/hr IVPB Q24H [facility] Rx#:[id number] Oral 1200 110 Output: Urine 1600 1100 850 Uretheral (Jacobs) 850 Other: Voiding Method Indwelling Catheter Indwelling Catheter Indwelling Catheter - Exam GENERAL DESCRIPTION: An elderly male lying in bed in no distress RESPIRATORY SYSTEM: Unlabored breathing , decreased breath sounds at bases HEART: S1 S2 regular rate and rhythm , ABDOMEN: Soft , no tenderness EXTREMITIES: No edema feet - Labs CBC & Chem 7: 12/18/22 05:13 12/18/22 05:13 Labs: Abnormal Lab Results - Last 24 Hours (Table) 12/17/22 12/18/22 12/18/22 Range/Units 20:48 05:00 05:13 RBC 2.44 L (4.30-5.90) m/uL Hgb 8.0 L (13.0-17.5) gm/dL Hct 25.4 L (39.0-53.0) % MCV 104.3 H (80.0-100.0) fL RDW 17.9 H (11.5-15.5) % ESR 50 H (0-20) mm/Hr Sodium (137-145) mmol/L BUN (9-20) mg/dL Creatinine (0.66-1.25) mg/dL Glucose (74-99) mg/dL POC Glucose (mg/dL) 184 H (70-110) mg/dL Calcium (8.4-10.2) mg/dL C-Reactive Protein (<1.0) mg/dL Urine Protein Trace H (Negative) Urine Blood Small H (Negative) Ur Leukocyte Esterase Moderate H (Negative) Urine WBC 9 H (0-5) /hpf Urine Bacteria Rare H (None) /hpf Urine Mucus Rare H (None) /hpf 12/18/22 12/18/22 12/18/22 Range/Units 05:13 06:35 11:29 RBC (4.30-5.90) m/uL Hgb (13.0-17.5) gm/dL Hct (39.0-53.0) % MCV (80.0-100.0) fL RDW (11.5-15.5) % ESR (0-20) mm/Hr Sodium 135 L (137-145) mmol/L BUN 61 H (9-20) mg/dL Creatinine 1.33 H (0.66-1.25) mg/dL Glucose 115 H (74-99) mg/dL POC Glucose (mg/dL) 123 H 223 H (70-110) mg/dL Calcium 7.8 L (8.4-10.2) mg/dL C-Reactive Protein 8.9 H (<1.0) mg/dL Urine Protein (Negative) Urine Blood (Negative) Ur Leukocyte Esterase (Negative) Urine WBC (0-5) /hpf Urine Bacteria (None) /hpf Urine Mucus (None) /hpf 12/18/22 Range/Units 16:20 RBC (4.30-5.90) m/uL Hgb (13.0-17.5) gm/dL Hct (39.0-53.0) % MCV (80.0-100.0) fL RDW (11.5-15.5) % ESR (0-20) mm/Hr Sodium (137-145) mmol/L BUN (9-20) mg/dL Creatinine (0.66-1.25) mg/dL Glucose (74-99) mg/dL POC Glucose (mg/dL) 315 H (70-110) mg/dL Calcium (8.4-10.2) mg/dL C-Reactive Protein (<1.0) mg/dL Urine Protein (Negative) Urine Blood (Negative) Ur Leukocyte Esterase (Negative) Urine WBC (0-5) /hpf Urine Bacteria (None) /hpf Urine Mucus (None) /hpf Microbiology - Last 24 Hours (Table) 12/17/22 08:42 Blood Culture - Preliminary Blood 12/17/22 08:20 Blood Culture - Preliminary Blood Assessment and Plan (1) Gram-negative bacteremia Current Visit: Yes Status: Acute Code(s): R78.81 - BACTEREMIA SNOMED Code(s): 054183417093 (2) Proctitis Current Visit: Yes Status: Acute Code(s): K62.89 - OTHER SPECIFIED DISEASES OF ANUS AND RECTUM SNOMED Code(s): 0001947 (3) UTI (urinary tract infection) Current Visit: Yes Status: Acute Code(s): N39.0 - URINARY TRACT INFECTION, SITE NOT SPECIFIED SNOMED Code(s): 75433372 Plan: Patient presented to hospital with sepsis in this patient with a fever tachycardia elevated white count source likely urinary as the patient has significantly positive UA and blood cultures are growing Proteus however urine culture has been reported negative , patient did have a CT of abdominal pelvis with evidence of cystitis and proctitis as well as ileal enteritis 2-we will discontinue Rocephin 2 g and started patient on Unasyn concerning for possible abdominal source for this bacteremia while waiting for repeat culture to be finalize Dictation was produced using [employer] dictation software. please excuse any grammatical, word or spelling errors. Time with Patient: Less than 30
[2022-12-18] MEDS: AMPICILLIN-SULBACTAM 3 GM in SODIUM CHLORIDE 0.9% 100 ML IVPB SCH (18:08)
--- NOTE | 2022-12-18 18:23 | P.PN ---
Subjective Progress Note Date: 12/18/22 Subjective: Patient was transferred out of ICU today. He continues to be in atrial fibrillation with rapid ventricular response. His heart rate somewhat controlled today. He is less short of breath and is not requiring continuous BiPAP support. PHYSICAL EXAMINATION Vital signs reviewed. CONSTITUTIONAL: No apparent distress, confused HEENT: Head is normocephalic. Pupils are equal, round. Sclerae anicteric. Mucous membranes of the mouth are moist. No JVD. No carotid bruit. CHEST EXAMINATION: Lungs are clear to auscultation. No chest wall tenderness is noted on palpation or with deep breathing. HEART EXAMINATION: Irregular rhythm. S1, S2 heard. No murmurs, gallops or rub. ABDOMEN: Soft, nontender. Positive bowel sounds. EXTREMITIES: 2+ lower extremity edema NEUROLOGIC EXAMINATION: Patient is awake, alert and oriented x3. ASSESSMENT 1. Acute on chronic systolic heart failure 2. Altered mental status likely component of sepsis 3. Hypotension, likely component of sepsis on low-dose norepinephrine 4. Persistent A. fib with RVR 5. Hypertension 6. Cardiomyopathy ejection fraction 35-40% 7. History of coronary artery disease 8. Urinary tract infection 9. Acute kidney injury PLAN Patient continues to be significantly volume overloaded. Continue Lasix 40 mg IV twice a day. Give metolazone 2.5 mg 30 min before lasix. Reduce aspirin to 81 mg daily Stop Plavix Continue Eliquis 5 mg twice a day Hold Entresto for 1-2 days. until Bp improves Continue metoprolol succinate 25 mg daily. Will not increase dose as patient is in significant congestive heart failure Continue amiodarone 200 mg daily. Prognosis is guarded Patient will need ischemic evaluation and possible right heart catheterization once more stabilized. Synopsis Patient is pleasant 72-year-old male with history of persistent atrial fibrillation, CAD with prior PCI, systolic heart failure, VT status post AICD, diabetes mellitus type 2, hypertension, hyperlipidemia. Patient presents from extended care facility secondary to increased confusion. He was found to be in A. fib with RVR with heart rates in the 140s to 150s and was placed on Cardizem drip. Additionally was found to have urinary tract infection with increased white blood cell blood cells and started on antibiotics. He does have increased white blood cell count up to 16. He also has acute kidney injury with creatinine 1.5. Apparently he was more confused however was placed on BiPAP with some improvement in mentation however still unsure if some of his details. Denies any recent fevers or chills. Denies any chest pain or pressure. Admits he does have some degree of swelling however has been worsening. He was started on Lasix with good urine output. He was not tolerating oral medications and therefore IV metoprolol 2.5 mg every 6 hours was given. Additionally he was started on an amiodarone drip in addition to his oral amiodarone at home. Prior echo from September 2022 shows ejection fraction 35-40%. Objective - Vital Signs Vital signs: Vital Signs Temp 97.7 F 12/18/22 08:00 Pulse 128 H 12/18/22 16:35 Resp 18 12/18/22 16:35 BP 123/75 12/18/22 16:35 Pulse Ox 98 12/18/22 16:35 FiO2 30 12/18/22 04:00 Intake & Output 12/17/22 12/18/22 12/18/22 18:59 06:59 18:59 Intake Total 1200 50 335 Output Total 1600 1100 850 Balance -400 -1050 -515 Weight 113.1 kg Intake: Intake, IV Titration 50 Amount cefTRIAXone 2 gm In 50 Sodium Chloride 0.9% 50 ml @ 100 mls/hr IVPB Q24H [facility] Rx#:[id number] Oral 1200 335 Output: Urine 1600 1100 850 Uretheral (Jacobs) 850 Other: Voiding Method Indwelling Catheter Indwelling Catheter Indwelling Catheter - Labs CBC & Chem 7: 12/18/22 05:13 12/18/22 05:13 Labs: Abnormal Lab Results - Last 24 Hours (Table) 12/17/22 12/18/22 12/18/22 Range/Units 20:48 05:00 05:13 RBC 2.44 L (4.30-5.90) m/uL Hgb 8.0 L (13.0-17.5) gm/dL Hct 25.4 L (39.0-53.0) % MCV 104.3 H (80.0-100.0) fL RDW 17.9 H (11.5-15.5) % ESR 50 H (0-20) mm/Hr Sodium (137-145) mmol/L BUN (9-20) mg/dL Creatinine (0.66-1.25) mg/dL Glucose (74-99) mg/dL POC Glucose (mg/dL) 184 H (70-110) mg/dL Calcium (8.4-10.2) mg/dL C-Reactive Protein (<1.0) mg/dL Urine Protein Trace H (Negative) Urine Blood Small H (Negative) Ur Leukocyte Esterase Moderate H (Negative) Urine WBC 9 H (0-5) /hpf Urine Bacteria Rare H (None) /hpf Urine Mucus Rare H (None) /hpf 12/18/22 12/18/22 12/18/22 Range/Units 05:13 06:35 11:29 RBC (4.30-5.90) m/uL Hgb (13.0-17.5) gm/dL Hct (39.0-53.0) % MCV (80.0-100.0) fL RDW (11.5-15.5) % ESR (0-20) mm/Hr Sodium 135 L (137-145) mmol/L BUN 61 H (9-20) mg/dL Creatinine 1.33 H (0.66-1.25) mg/dL Glucose 115 H (74-99) mg/dL POC Glucose (mg/dL) 123 H 223 H (70-110) mg/dL Calcium 7.8 L (8.4-10.2) mg/dL C-Reactive Protein 8.9 H (<1.0) mg/dL Urine Protein (Negative) Urine Blood (Negative) Ur Leukocyte Esterase (Negative) Urine WBC (0-5) /hpf Urine Bacteria (None) /hpf Urine Mucus (None) /hpf 12/18/22 Range/Units 16:20 RBC (4.30-5.90) m/uL Hgb (13.0-17.5) gm/dL Hct (39.0-53.0) % MCV (80.0-100.0) fL RDW (11.5-15.5) % ESR (0-20) mm/Hr Sodium (137-145) mmol/L BUN (9-20) mg/dL Creatinine (0.66-1.25) mg/dL Glucose (74-99) mg/dL POC Glucose (mg/dL) 315 H (70-110) mg/dL Calcium (8.4-10.2) mg/dL C-Reactive Protein (<1.0) mg/dL Urine Protein (Negative) Urine Blood (Negative) Ur Leukocyte Esterase (Negative) Urine WBC (0-5) /hpf Urine Bacteria (None) /hpf Urine Mucus (None) /hpf Microbiology - Last 24 Hours (Table) 12/17/22 08:42 Blood Culture - Preliminary Blood 12/17/22 08:20 Blood Culture - Preliminary Blood
[2022-12-18 19:58] LABS: Glucose,Whole Blood 209 mg/dL (70-110)
[2022-12-18] MEDS: INSULIN DETEMIR (LEVEMIR) 100 UNIT/ML SYR SQ SCH (21:44)
[2022-12-18] MEDS: ATORVASTATIN 40 MG TAB PO SCH (21:46)
[2022-12-18] MEDS: SERTRALINE 50 MG TAB PO SCH ×2 (21:46→21:50)
[2022-12-18] MEDS: risperiDONE 0.5 MG TAB PO SCH (21:47)
[2022-12-19] MEDS: AMPICILLIN-SULBACTAM 3 GM in SODIUM CHLORIDE 0.9% 100 ML IVPB SCH ×4 (00:10→18:33)
[2022-12-19 06:07] LABS: Glucose,Whole Blood 144 mg/dL (70-110)
[2022-12-19] MEDS: INSULIN ASPART (NovoLOG) 100 UNIT/ML VIAL SQ SCH ×4 (06:07→20:28)
[2022-12-19] MEDS: CYCLOBENZAPRINE 5 MG TAB PO SCH ×3 (06:38→20:31)
[2022-12-19 08:12] LABS: Anisocytosis Slight; HCT 27.2 % (39.0-53.0); HGB 8.9 gm/dL (13.0-17.5); Hypochromasia Marked; MCH 33.9 pg (25.0-35.0); MCHC 32.7 g/dL (31.0-37.0); MCV 103.5 fL (80.0-100.0); Macrocytosis Moderate; Mean Platelet Volume 7.7; Platelet Count 233 k/uL (150-450); Poikilocytosis Moderate; RBC 2.63 m/uL (4.30-5.90); RDW 17.6 % (11.5-15.5); WBC 9.8 k/uL (3.8-10.6)
[2022-12-19] MEDS: NITROGLYCERIN OINT 1 INCH/GM PACKET TOPICAL SCH ×4 (08:25→20:32)
[2022-12-19] MEDS: THIAMINE 100 MG TAB PO SCH (08:25)
[2022-12-19] MEDS: AMIODARONE 200 MG TAB PO SCH (08:25)
[2022-12-19] MEDS: ACETAMINOPHEN TAB 500 MG TAB PO SCH ×3 (08:27→20:30)
[2022-12-19 08:28] LABS: African American GFR (CKD) 74 (>60 ml/min/1.73 sqM); Anion Gap 12 mmol/L; Blood Urea Nitrogen 56 mg/dL (9-20); Calcium 8.1 mg/dL (8.4-10.2); Carbon Dioxide 28 mmol/L (22-30); Chloride 97 mmol/L (98-107); Glucose 151 mg/dL (74-99); Non-African American GFR(CKD) 64 (>60 ml/min/1.73 sqM); Potassium 3.5 mmol/L (3.5-5.1); Sodium 137 mmol/L (137-145)
[2022-12-19] MEDS: PANTOPRAZOLE 40 MG/10 ML VIAL IVP SCH (08:28)
[2022-12-19] MEDS: metOLazone 2.5 MG TAB PO SCH (08:28)
[2022-12-19] MEDS: FUROSEMIDE 10 MG/ML 4 ML VIAL IV SCH ×2 (08:28→20:29)
[2022-12-19] MEDS: METOPROLOL SUCCINATE (ER) 25 MG TAB.ER.24H PO SCH (08:28)
[2022-12-19] MEDS: APIXABAN 5 MG TAB PO SCH ×2 (08:28→16:55)
[2022-12-19] MEDS: ASPIRIN 81 MG PO SCH (08:28)
[2022-12-19] MEDS: LIDOCAINE 5% PATCH TOPICAL SCH (08:28)
[2022-12-19] MEDS: OXYBUTYNIN XL 5 MG TAB.ER.24 PO SCH (08:28)
[2022-12-19] MEDS: allopurinoL 100 MG TAB PO SCH (08:28)
[2022-12-19] MEDS: BUDESONIDE 1 MG/2 ML NEBU INHALATION SCH ×2 (08:34→21:27)
[2022-12-19] MEDS: IPRATROPIUM-ALBUTEROL 3 ML NEB INHALATION SCH ×3 (08:34→21:27)
[2022-12-19 11:29] LABS: Glucose,Whole Blood 191 mg/dL (70-110)
--- NOTE | 2022-12-19 11:52 | P.PN ---
Subjective Progress Note Date: 12/19/22 Patient is a 72-year-old male with an extensive damage including systolic CHF, A. fib on Eliquis, CAD status post stents, COPD, type II DM, hypertension, who presents to the emergency room for concerns for tachycardia from SNF. Patient is a poor historian and majority of information is obtained from the chart. In the ED, Tmax was 100.1F. He was tachypneic with RR of 32, HR in the 120s with BP as low as 93/68. EKG showed atrial flutter with RVR and Q waves. CBC showed WBC 16.7, Hg 10.9, MCV 106. INR was 1.4. ABG showed pH 7.41, pCO2 45. CMP shows K 5.2, BUN 58, Cr 1.54, glucose 240. Troponin was 0.023, 0.022. Lactic acid 1.7. BNP 81341. UA showed large blood and large LE. He was initially admitted for Dr. Kaufman to the [facility]. A-team was called for hypotension and patient was subsequently transferred to the ICU. Blood cultures grew gram negative bacilli. Urine culture was negative. He is continued on Rocephin while awaiting finalized cultures. 12/16 Patient was seen and examined. Patient is currently being treated for A- Fib with RVR and Urosepsis. Blood culture + GNB. UCx negative. CBC shows Hg 8.2 MCV 105.7. CMP shows Na 136, BUN 67, Cr 1.7, glucose 113, Ca 8, albumin 2.4. Currently on Rocephin 2g IV QD. He is on Lasix 40 mg IV BID. He is on Amiodarone 200 mg PO QD. Amiodarone drip discontinued and weaned off Levophed. 12/17 Patient was seen and examined. CBC shows Hg 8 with MCV 105.7. BMP shows Na 135, BUN 66, Cr 1.34, glucose 128, Ca 7.8. Mag 2.1. Negative fluid balance of 890 cc over the past 24H. Cardiology recommends continued diuresis with metolazone while continuing ASA, Eliquis, low dose Metoprolol and Amiodarone while holding Entresto until BP improves. He remains off pressors with SBP in the high 90s and low 100s, HR improved to 110s. 12/18 Patient was seen and examined. Clinically improved. More alert and communicative. CBC shows Hg 8 with MCV 104.3. BMP shows Na 135, BUN 61, Cr 1.33, glucose 115, Ca 7.8. CRP 8.9. Negative fluid balance of 1089.09 cc over the past 24H. BCx finalized as proteus mirabilis. CT AP done yesterday shows bladder wall thickening along with rectal wall thickening, hepatosplenomegaly. ID recommends repeat UCx. 12/19 Patient was seen and examined. Sleeping comfortably. Rocephin switched to Unasyn yesterday by ID for concerns of colitis causing Proteus bacteremia. CBC shows Hg 8.9 with MCV 103.5. BMP shows Cl 97, BUN 56, glucose 151, Ca 8.1. Repeat BCx negative at 24H. Negative fluid balance of 1450 cc over the past 24H General: nontoxic, no distress, appears at stated age Derm: warm, dry Head: atraumatic, normocephalic, symmetric Eyes: EOMI, no lid lag, anicteric sclera Cardiovascular: S1S2 irregular irregular, no murmur Lungs: Coarse BS bilateral, no rhonchi, bibasilar rales , no accessory muscle use Ext: no gross muscle atrophy, 2+ edema, no contractures Neuro: no focal neuro deficits Psych: Alert, oriented, slow to respond Septic shock secondary to Proteus bacteremia Acute on chronic systolic CHF exacerbation Atrial fibrillation with RVR Acute kidney injury on chronic kidney disease Diabetes mellitus with hyperglycemia Macrocytic anemia Based on my assessment of this patient, this patient meets a high complexity level of care. Patient has an acute diagnosis of urosepsis with septic shock requiring pressors that poses a threat to life or bodily function. Septic shock secondary to Proteus bacteremia: Maintain MAP > 65. Levophed if necessary. Rocephin switched to Unasyn on 12/18. Repeat BCx negative so far. Telemetry monitoring. ID on board. Acute on chronic systolic CHF exacerbation: Prior echo from September 2022 shows ejection fraction 35-40%. Cardiology on board. Lasix 40 mg IV BID. Metolazone 2.5 mg PO QD added on 12/17. Metoprolol 25 mg PO QD. Holding Entresto for hypotension. Intake and Outtake. Daily weights. Atrial fibrillation with RVR: Amiodarone as above. Eliquis 5 mg PO BID for AC. Acute kidney injury on chronic kidney disease: Monitor since patient is on Lasix IV. Diabetes mellitus with hyperglycemia: ISS. Accuchecks ACHS. Hypoglycemic precautions. Add Levemir 10 units QHS. Macrocytic anemia: Transfuse if Hg < 7. I have reviewed the following clinical program consultant notes: I have reviewed the results of the following tests: CBC, BMP, BCx reviewed as above. I have ordered the following tests: CBC and BMP ordered for tomorrow morning. Blood cultures. I have discussed the care of this patient with the following independent historian: I have independently interpreted the following test below: I have discussed the management of this patient with the following physician: Lasix IV - intensive monitoring - renal function Objective - Vital Signs Vital signs: Vital Signs Temp 97.7 F 12/19/22 08:17 Pulse 128 H 12/19/22 09:58 Resp 19 12/19/22 09:58 BP 121/72 12/19/22 08:17 Pulse Ox 96 12/19/22 08:34 FiO2 30 12/19/22 04:34 Intake & Output 12/18/22 12/19/22 12/19/22 18:59 06:59 18:59 Intake Total 335 120 Output Total 850 3350 475 Balance -515 -3350 -355 Weight 105 kg Intake: Oral 335 120 Output: Urine 850 3350 475 Uretheral (Jacobs) 850 Other: Voiding Method Indwelling Catheter Indwelling Catheter Indwelling Catheter - Labs CBC & Chem 7: 12/19/22 07:29 12/19/22 07:29 Labs: Abnormal Lab Results - Last 24 Hours (Table) 12/18/22 12/18/22 12/18/22 Range/Units 05:13 16:20 19:57 RBC (4.30-5.90) m/uL Hgb (13.0-17.5) gm/dL Hct (39.0-53.0) % MCV (80.0-100.0) fL RDW (11.5-15.5) % ESR 50 H (0-20) mm/Hr Chloride (98-107) mmol/L BUN (9-20) mg/dL Glucose (74-99) mg/dL POC Glucose (mg/dL) 315 H 209 H (70-110) mg/dL Calcium (8.4-10.2) mg/dL 12/19/22 12/19/22 12/19/22 Range/Units 06:05 07:29 07:29 RBC 2.63 L (4.30-5.90) m/uL Hgb 8.9 L (13.0-17.5) gm/dL Hct 27.2 L (39.0-53.0) % MCV 103.5 H (80.0-100.0) fL RDW 17.6 H (11.5-15.5) % ESR (0-20) mm/Hr Chloride 97 L (98-107) mmol/L BUN 56 H (9-20) mg/dL Glucose 151 H (74-99) mg/dL POC Glucose (mg/dL) 144 H (70-110) mg/dL Calcium 8.1 L (8.4-10.2) mg/dL 12/19/22 Range/Units 11:28 RBC (4.30-5.90) m/uL Hgb (13.0-17.5) gm/dL Hct (39.0-53.0) % MCV (80.0-100.0) fL RDW (11.5-15.5) % ESR (0-20) mm/Hr Chloride (98-107) mmol/L BUN (9-20) mg/dL Glucose (74-99) mg/dL POC Glucose (mg/dL) 191 H (70-110) mg/dL Calcium (8.4-10.2) mg/dL Microbiology - Last 24 Hours (Table) 12/17/22 08:20 Blood Culture Gram Stain - Preliminary Blood Blood Culture - Preliminary 12/17/22 08:42 Blood Culture - Preliminary Blood
--- NOTE | 2022-12-19 12:58 | P.PN ---
Subjective Progress Note Date: 12/19/22 Principal diagnosis: Proteus bacteremia possible abdominal source Patient is a 72-year-old male with a past medical history significant for diabetes mellitus hypertension hyperlipidemia atrial fibrillation and coronary disease patient presented to hospital for evaluation of weakness tachycardia. Patient did have evidence of Proteus bacteremia, did have positive UA with urine culture were negative. On today's evaluation that is 12/19/2022, the patient remains to be afebrile the patient is breathing comfortably on 2lNC supplemental oxygen, the patient denies chest pain and no significant cough, patient denies abdominal pain and no nausea/vomiting or diarrhea Patient did have a white count of 9.8, creatinine is 1.4, repeat cultures pending, see the abdominal pelvis with severe bladder wall thickening possible ileal wall thickening and there was concern for possible rectal wall thickening and perirectal fat stranding Objective - Vital Signs Vital signs: Vital Signs Temp 97.7 F 12/19/22 08:17 Pulse 124 H 12/19/22 08:50 Resp 19 12/19/22 08:17 BP 121/72 12/19/22 08:17 Pulse Ox 96 12/19/22 08:34 FiO2 30 12/19/22 04:34 Intake & Output 12/18/22 12/19/22 12/19/22 18:59 06:59 18:59 Intake Total 335 120 Output Total 850 3350 475 Balance -515 -4033 -355 Weight 105 kg Intake: Oral 335 120 Output: Urine 850 3350 475 Uretheral (Jacobs) 850 Other: Voiding Method Indwelling Catheter Indwelling Catheter - Exam GENERAL DESCRIPTION: An elderly male lying in bed in no distress RESPIRATORY SYSTEM: Unlabored breathing , decreased breath sounds at bases HEART: S1 S2 regular rate and rhythm , ABDOMEN: Soft , no tenderness EXTREMITIES: No edema feet - Labs CBC & Chem 7: 12/19/22 07:29 12/19/22 07:29 Labs: Abnormal Lab Results - Last 24 Hours (Table) 12/18/22 12/18/22 12/18/22 Range/Units 05:13 11:29 16:20 RBC (4.30-5.90) m/uL Hgb (13.0-17.5) gm/dL Hct (39.0-53.0) % MCV (80.0-100.0) fL RDW (11.5-15.5) % ESR 50 H (0-20) mm/Hr Chloride (98-107) mmol/L BUN (9-20) mg/dL Glucose (74-99) mg/dL POC Glucose (mg/dL) 223 H 315 H (70-110) mg/dL Calcium (8.4-10.2) mg/dL 12/18/22 12/19/22 12/19/22 Range/Units 19:57 06:05 07:29 RBC 2.63 L (4.30-5.90) m/uL Hgb 8.9 L (13.0-17.5) gm/dL Hct 27.2 L (39.0-53.0) % MCV 103.5 H (80.0-100.0) fL RDW 17.6 H (11.5-15.5) % ESR (0-20) mm/Hr Chloride (98-107) mmol/L BUN (9-20) mg/dL Glucose (74-99) mg/dL POC Glucose (mg/dL) 209 H 144 H (70-110) mg/dL Calcium (8.4-10.2) mg/dL 12/19/22 Range/Units 07:29 RBC (4.30-5.90) m/uL Hgb (13.0-17.5) gm/dL Hct (39.0-53.0) % MCV (80.0-100.0) fL RDW (11.5-15.5) % ESR (0-20) mm/Hr Chloride 97 L (98-107) mmol/L BUN 56 H (9-20) mg/dL Glucose 151 H (74-99) mg/dL POC Glucose (mg/dL) (70-110) mg/dL Calcium 8.1 L (8.4-10.2) mg/dL Microbiology - Last 24 Hours (Table) 12/17/22 08:20 Blood Culture - Preliminary Blood 12/17/22 08:42 Blood Culture - Preliminary Blood Assessment and Plan (1) Gram-negative bacteremia Current Visit: Yes Status: Acute Code(s): R78.81 - BACTEREMIA SNOMED Code(s): 240494347175 (2) Proctitis Current Visit: Yes Status: Acute Code(s): K62.89 - OTHER SPECIFIED DISEASES OF ANUS AND RECTUM SNOMED Code(s): 1103499 (3) UTI (urinary tract infection) Current Visit: Yes Status: Acute Code(s): N39.0 - URINARY TRACT INFECTION, SITE NOT SPECIFIED SNOMED Code(s): 17164399 Plan: Patient presented to hospital with sepsis in this patient with a fever tachycardia elevated white count source likely urinary as the patient has si gnificantly positive UA and blood cultures are growing Proteus however urine culture has been reported negative , patient did have a CT of abdominal pelvis with evidence of cystitis and proctitis as well as ileal enteritis 2-We will continue the patient on Unasyn concerning for possible abdominal so urce for this bacteremia 3- repeat culture with staph epi , likely skin contaminant and no need for vancomycin Dictation was produced using [employer] dictation software. please excuse any grammatical, word or spelling errors. Time with Patient: Less than 30
--- NOTE | 2022-12-19 13:30 | P.PN ---
Subjective Progress Note Date: 12/18/22 Principal diagnosis: Acute hypoxic respiratory failure with acute systolic congestive heart failure and urosepsis, and gram-negative bacteremia I am seeing this patient in new consultation today 12/15/2022 on the cardiac stepdown unit after an A-team was called overhead. Patient is a 72-year-old white male with past medical history significant for paroxysmal atrial fibrillat ion, coronary artery disease with prior coronary stents, heart failure, V-tach s/p AICD, diabetes mellitus, hyperlipidemia, hypertension. Patient was brought into the emergency room yesterday afternoon from his extended care facility. I am told that he stays at [facility], and that he was found to be confused and tachycardic on rounds at the outside facility. While in the emergency room, he was found to be in atrial fibrillation with rapid ventricular rate. He has chronic atrial fibrillation. He was started on Cardizem 5 mg per hour for rate control. Urinalysis is also concerning for UTI and urosepsis. He has been started on Rocephin. CBC on arrival showed some leukocytosis with a WBC count of 16.7, hemoglobin 10.9, hematocrit 34.4, platelets 278. BMP on arrival showed a sodium of 138, potassium 5.2, chloride 99, serum bicarbonate 23, BUN 58, creatinine 1.54, glucose 240. There is a component of acute kidney injury. NT proBNP was also elevated at 24,000. Chest x-ray on arrival showed cardiomegaly with pulmonary vascular congestion, and small bilateral pleural effusions concerning for CHF exacerbation. Patient has known history of systolic heart failure with a left ventricular ejection fraction of 35-40%, along with moderate mitral and tricuspid regurgitation with moderate pulmonary hypertension. Patient has been started on Lasix 40 mg 3 times a day. Patient was originally admitted to the cardiac stepdown unit. On my evaluation, the patient is currently in room 367. He is minimally responsive to sternal rub. He is tachypneic and tachycardic. Cardizem is still infusing at 5 mg per hour. He is in some respiratory distress, and was placed on the BiPAP with settings of 12/6 and FiO2 of 60%. ABGs show pO2 of 181, pCO2 45, pH of 7.41 on these settings. Patient was ultimately transferred to the intensive care unit for closer monitoring. While in ICU, his blood pressure did become hypotensive and he was started on low-dose norepinephrine which is currently infusing at 0.03 mics per kilogram per minute. Cardizem was stopped due to hypotension, and switch to a miodarone per protocol. He is still confused, but is more alert to verbal and painful stimuli. Patient will be monitored in the intensive care unit. Patient was admitted on , remains in the ICU, he was on BiPAP last night 02/10/30% now the patient is on nasal cannula at 4 L, doing well, relatively asymptomatic, he is on ceftriaxone for his positive blood cultures showing gram- negative bacilli which is likely coming from his urosepsis. Patient is hemodynamically stable, not requiring any pressors, does not seem to be in any distress. WBC count is 9.6 hemoglobin 8.2 lites are normal BUN is 67 creatinine 1.70. Considering his relative stability I will transfer the patient out of the ICU to a monitor bed on . Reevaluated today on 12/17/2022, patient continues to do well, steadily improving. He is hemodynamically stable, not requiring any pressors at this point. At night he was on BiPAP 02/10/30% now he is on 2 L nasal cannula, blood cultures were positive for gram-negative bacilli, most likely source is his urine, turned out to be Proteus mirabilis and it is quite sensitive to all antibiotics, 2 blood cultures were noted to be positive for Proteus. Patient remains on ceftriaxone at 2 g daily. WBC count is 4.8 hemoglobin is 8 basic metabolic profile is normal renal profile is improving with creatinine down to 1.34, it was 1.7 yesterday Patient was evaluated on 12/18/2022, patient remains in the ICU, clinically improving, he is definitely more alert, communicating, does not seem to be in any distress, he is only on few liters nasal cannula. His labs are basically unremarkable, his hemoglobin is 8, basic metabolic profile is relatively normal except for creatinine of 1.33. Patient had negative fluid balance over the last 4 previous 24 hours. His cultures are positive for Proteus mirabilis and he is receiving treatment as per infectious disease on the case. Blood cultures also positive for Proteus mirabilis. No chest x-ray was done today. Objective - Vital Signs Vital signs: Vital Signs Temp 97.7 F 12/19/22 08:17 Pulse 126 H 10/14/23 12:54 Resp 18 12/19/22 12:54 BP 109/67 12/19/22 12:54 Pulse Ox 99 12/19/22 12:54 FiO2 30 12/19/22 04:34 Intake & Output 12/18/22 12/19/22 12/19/22 18:59 06:59 18:59 Intake Total 335 360 Output Total 850 3350 1200 Balance -515 -3350 -840 Weight 105 kg Intake: Oral 335 360 Output: Urine 850 3350 1200 Uretheral (Jacobs) 850 Other: Voiding Method Indwelling Catheter Indwelling Catheter Indwelling Catheter - Exam Physical Exam: Revealed 72-year-old white male in no distress on 2 L nasal cannula Head: Atraumatic, normocephalic. HEENT:[Neck is supple.] [No neck masses.] [No thyromegaly.] [No JVD.] Chest: [Diminished breath sounds at the bases no crackles or rhonchi or wheezes Cardiac Exam: [Normal S1 and S2, no S3 gallop, no murmur.] Abdomen: [Soft, nontender, no megaly, no rebound, no guarding, normal bowel sounds.] Extremities: [No clubbing, 1+ bipedal edema, no cyanosis.] Neurological Exam: [No focal neurologic deficit.] Alert oriented 3 Psychiatric: Normal mood affect and normal mental status examination. - Labs CBC & Chem 7: 12/19/22 07:29 12/19/22 07:29 Labs: Abnormal Lab Results - Last 24 Hours (Table) 12/18/22 12/18/22 12/19/22 Range/Units 16:20 19:57 06:05 RBC (4.30-5.90) m/uL Hgb (13.0-17.5) gm/dL Hct (39.0-53.0) % MCV (80.0-100.0) fL RDW (11.5-15.5) % Chloride (98-107) mmol/L BUN (9-20) mg/dL Glucose (74-99) mg/dL POC Glucose (mg/dL) 315 H 209 H 144 H (70-110) mg/dL Calcium (8.4-10.2) mg/dL 12/19/22 12/19/22 12/19/22 Range/Units 07:29 07:29 11:28 RBC 2.63 L (4.30-5.90) m/uL Hgb 8.9 L (13.0-17.5) gm/dL Hct 27.2 L (39.0-53.0) % MCV 103.5 H (80.0-100.0) fL RDW 17.6 H (11.5-15.5) % Chloride 97 L (98-107) mmol/L BUN 56 H (9-20) mg/dL Glucose 151 H (74-99) mg/dL POC Glucose (mg/dL) 191 H (70-110) mg/dL Calcium 8.1 L (8.4-10.2) mg/dL Microbiology - Last 24 Hours (Table) 12/18/22 05:13 Blood Culture - Preliminary Blood 12/17/22 08:42 Blood Culture - Preliminary Blood 12/17/22 08:20 Blood Culture Gram Stain - Preliminary Blood Blood Culture - Preliminary Assessment and Plan Assessment: Impression: Acute hypoxemic respiratory failure, currently on BiPAP, secondary to systolic CHF exacerbation. Chest x-ray on arrival shows cardiomegaly, pulmonary vascular congestion, and bilateral pleural effusions concerning for CHF exacerbation. NT proBNP was elevated at 24,000. Responding well to diuresis. Gram-negative bacteremia and urosepsis, on antibiotics as per ID on the case. UTI and urosepsis, Septic shock, resolved Leukocytosis, secondary to above Acute kidney injury, improving creatinine Atrial fibrillation with rapid ventricular rate but presently rate remains high and not fully controlled. Cardiology is addressing History of ischemic cardiomyopathy, recent echocardiogram done September, showed a reduced ejection fraction of 35-40% along with moderate mitral and tricuspid regurgitation, moderate pulmonary hypertension. History of nonsustained ventricular tachycardia, status post AICD implantation Coronary artery disease, with prior coronary PCI Diabetes mellitus type 2 Benign essential hypertension Hyperlipidemia Obesity, with a BMI of 36 kg/m Recommendation: Consider transfer to a monitor bed on selective Continue present supportive care measures Continue Lasix Continue antibiotics, infectious disease is following and will adjust antibiotics accordingly Continue cardiac meds Use BiPAP at night., Place on nasal cannula during the day. We will continue to follow Time with Patient: Less than 30
--- NOTE | 2022-12-19 13:37 | P.PN ---
Subjective Progress Note Date: 12/19/22 Principal diagnosis: Acute hypoxic respiratory failure with acute systolic congestive heart failure and urosepsis, and gram-negative bacteremia I am seeing this patient in new consultation today 12/15/2022 on the cardiac stepdown unit after an A-team was called overhead. Patient is a 72-year-old white male with past medical history significant for paroxysmal atrial fibrillat ion, coronary artery disease with prior coronary stents, heart failure, V-tach s/p AICD, diabetes mellitus, hyperlipidemia, hypertension. Patient was brought into the emergency room yesterday afternoon from his extended care facility. I am told that he stays at [facility], and that he was found to be confused and tachycardic on rounds at the outside facility. While in the emergency room, he was found to be in atrial fibrillation with rapid ventricular rate. He has chronic atrial fibrillation. He was started on Cardizem 5 mg per hour for rate control. Urinalysis is also concerning for UTI and urosepsis. He has been started on Rocephin. CBC on arrival showed some leukocytosis with a WBC count of 16.7, hemoglobin 10.9, hematocrit 34.4, platelets 278. BMP on arrival showed a sodium of 138, potassium 5.2, chloride 99, serum bicarbonate 23, BUN 58, creatinine 1.54, glucose 240. There is a component of acute kidney injury. NT proBNP was also elevated at 24,000. Chest x-ray on arrival showed cardiomegaly with pulmonary vascular congestion, and small bilateral pleural effusions concerning for CHF exacerbation. Patient has known history of systolic heart failure with a left ventricular ejection fraction of 35-40%, along with moderate mitral and tricuspid regurgitation with moderate pulmonary hypertension. Patient has been started on Lasix 40 mg 3 times a day. Patient was originally admitted to the cardiac stepdown unit. On my evaluation, the patient is currently in room 367. He is minimally responsive to sternal rub. He is tachypneic and tachycardic. Cardizem is still infusing at 5 mg per hour. He is in some respiratory distress, and was placed on the BiPAP with settings of 12/6 and FiO2 of 60%. ABGs show pO2 of 181, pCO2 45, pH of 7.41 on these settings. Patient was ultimately transferred to the intensive care unit for closer monitoring. While in ICU, his blood pressure did become hypotensive and he was started on low-dose norepinephrine which is currently infusing at 0.03 mics per kilogram per minute. Cardizem was stopped due to hypotension, and switch to a miodarone per protocol. He is still confused, but is more alert to verbal and painful stimuli. Patient will be monitored in the intensive care unit. Patient was admitted on , remains in the ICU, he was on BiPAP last night 02/10/30% now the patient is on nasal cannula at 4 L, doing well, relatively asymptomatic, he is on ceftriaxone for his positive blood cultures showing gram- negative bacilli which is likely coming from his urosepsis. Patient is hemodynamically stable, not requiring any pressors, does not seem to be in any distress. WBC count is 9.6 hemoglobin 8.2 lites are normal BUN is 67 creatinine 1.70. Considering his relative stability I will transfer the patient out of the ICU to a monitor bed on . Reevaluated today on 12/17/2022, patient continues to do well, steadily improving. He is hemodynamically stable, not requiring any pressors at this point. At night he was on BiPAP 02/10/30% now he is on 2 L nasal cannula, blood cultures were positive for gram-negative bacilli, most likely source is his urine, turned out to be Proteus mirabilis and it is quite sensitive to all antibiotics, 2 blood cultures were noted to be positive for Proteus. Patient remains on ceftriaxone at 2 g daily. WBC count is 4.8 hemoglobin is 8 basic metabolic profile is normal renal profile is improving with creatinine down to 1.34, it was 1.7 yesterday Patient was evaluated on 12/18/2022, patient remains in the ICU, clinically improving, he is definitely more alert, communicating, does not seem to be in any distress, he is only on few liters nasal cannula. His labs are basically unremarkable, his hemoglobin is 8, basic metabolic profile is relatively normal except for creatinine of 1.33. Patient had negative fluid balance over the last 4 previous 24 hours. His cultures are positive for Proteus mirabilis and he is receiving treatment as per infectious disease on the case. Blood cultures also positive for Proteus mirabilis. No chest x-ray was done today. Reevaluated today on 12/19/2022, patient is now out of the ICU, he is on the cardiac floor, continues to do well, improving with antibiotics and diuretics. Remains on 2 L nasal cannula with O2 sats is 99% during the day, he is using BiPAP at night. Patient is on Unasyn as per infectious disease for his Proteus mirabilis infection in the urine , and in the blood W 79.8 hemoglobin 8.9 basic metabolic profile is normal l creatinine is significantly improved down to 1.14, BUN is 12, the report on his CT of abdomen and pelvis was reviewed, and that to be addressed by urology, patient did have some findings related to his bladder wall thickening. Pulmonary-mulligan the patient is actually doing better than expected Objective - Vital Signs Vital signs: Vital Signs Temp 97.7 F 12/19/22 08:17 Pulse 126 H 12/19/22 12:54 Resp 18 12/19/22 12:54 BP 109/67 12/19/22 12:54 Pulse Ox 99 12/19/22 12:54 FiO2 30 12/19/22 04:34 Intake & Output 12/18/22 12/19/22 12/19/22 18:59 06:59 18:59 Intake Total 335 360 Output Total 850 3350 1200 Balance -515 -3350 -840 Weight 105 kg Intake: Oral 335 360 Output: Urine 850 3350 1200 Uretheral (Jacobs) 850 Other: Voiding Method Indwelling Catheter Indwelling Catheter Indwelling Catheter - Exam Physical Exam: Revealed 72-year-old white male in no distress on 2 L nasal cannula Head: Atraumatic, normocephalic. HEENT:[Neck is supple.] [No neck masses.] [No thyromegaly.] [No JVD.] Chest: [Diminished breath sounds at the bases no crackles or rhonchi or wheezes Cardiac Exam: [Normal S1 and S2, no S3 gallop, no murmur.] Abdomen: [Soft, nontender, no megaly, no rebound, no guarding, normal bowel sounds.] Extremities: [No clubbing, 1+ bipedal edema, no cyanosis.] Neurological Exam: [No focal neurologic deficit.] Alert oriented 3 Psychiatric: Normal mood affect and normal mental status examination. - Labs CBC & Chem 7: 12/19/22 07:29 12/19/22 07:29 Labs: Abnormal Lab Results - Last 24 Hours (Table) 12/18/22 12/18/22 12/19/22 Range/Units 16:20 19:57 06:05 RBC (4.30-5.90) m/uL Hgb (13.0-17.5) gm/dL Hct (39.0-53.0) % MCV (80.0-100.0) fL RDW (11.5-15.5) % Chloride (98-107) mmol/L BUN (9-20) mg/dL Glucose (74-99) mg/dL POC Glucose (mg/dL) 315 H 209 H 144 H (70-110) mg/dL Calcium (8.4-10.2) mg/dL 12/19/22 12/19/22 12/19/22 Range/Units 07:29 07:29 11:28 RBC 2.63 L (4.30-5.90) m/uL Hgb 8.9 L (13.0-17.5) gm/dL Hct 27.2 L (39.0-53.0) % MCV 103.5 H (80.0-100.0) fL RDW 17.6 H (11.5-15.5) % Chloride 97 L (98-107) mmol/L BUN 56 H (9-20) mg/dL Glucose 151 H (74-99) mg/dL POC Glucose (mg/dL) 191 H (70-110) mg/dL Calcium 8.1 L (8.4-10.2) mg/dL Microbiology - Last 24 Hours (Table) 12/18/22 05:13 Blood Culture - Preliminary Blood 12/17/22 08:42 Blood Culture - Preliminary Blood 12/17/22 08:20 Blood Culture Gram Stain - Preliminary Blood Blood Culture - Preliminary Assessment and Plan Assessment: Impression: Acute hypoxemic respiratory failure, secondary to systolic CHF exacerbation. Responding well to diuresis. Gram-negative bacteremia and urosepsis, secondary to Proteus mirabilis UTI and urosepsis, secondary to Proteus mirabilis, on Unasyn. Off ceftriaxone Septic shock, resolved Leukocytosis, secondary to above Acute kidney injury, improving creatinine Atrial fibrillation with rapid ventricular rate but presently rate remains high and not fully controlled. Cardiology is addressing History of ischemic cardiomyopathy, recent echocardiogram done September, showed a reduced ejection fraction of 35-40% along with moderate mitral and tricuspid regurgitation, moderate pulmonary hypertension. History of nonsustained ventricular tachycardia, status post AICD implantation Coronary artery disease, with prior coronary PCI Diabetes mellitus type 2 Benign essential hypertension Hyperlipidemia Obesity, with a BMI of 36 kg/m Recommendation: Continue present supportive care measures Continue Lasix, monitor daily electrolytes and daily renal profile. Continue antibiotics, as per infectious disease he is now on Unasyn Continue cardiac meds Repeat chest x-ray in a.m. Utilize BiPAP at night since the patient seems to have obstructive sleep apnea syndrome. We will continue to follow Time with Patient: Less than 30
[2022-12-19 16:17] LABS: Glucose,Whole Blood 174 mg/dL (70-110)
[2022-12-19] MEDS: HYDROcodone/APAP 7.5-325MG 1 EACH TAB PO PRN (16:55)
[2022-12-19] MEDS: MULTIVITAMINS, THERA 1 EACH TAB PO SCH (16:55)
--- NOTE | 2022-12-19 19:18 | P.PN ---
Subjective Progress Note Date: 12/19/22 Subjective: Patient is continued show clinical improvement. His blood pressure has been stable, heart rate is better controlled. He continues to be in atrial fibrillation. His creatinine has significantly improved. He has good urine output with addition of metolazone yesterday. PHYSICAL EXAMINATION Vital signs reviewed. CONSTITUTIONAL: No apparent distress, confused HEENT: Head is normocephalic. Pupils are equal, round. Sclerae anicteric. Mucous membranes of the mouth are moist. No JVD. No carotid bruit. CHEST EXAMINATION: Lungs are clear to auscultation. No chest wall tenderness is noted on palpation or with deep breathing. HEART EXAMINATION: Irregular rhythm. S1, S2 heard. No murmurs, gallops or rub. ABDOMEN: Soft, nontender. Positive bowel sounds. EXTREMITIES: 2+ lower extremity edema NEUROLOGIC EXAMINATION: Patient is awake, alert and oriented x3. ASSESSMENT 1. Acute on chronic systolic heart failure 2. Altered mental status likely component of sepsis 3. Hypotension, likely component of sepsis on low-dose norepinephrine 4. Persistent A. fib with RVR 5. Hypertension 6. Cardiomyopathy ejection fraction 35-40% 7. History of coronary artery disease 8. Urinary tract infection 9. Acute kidney injury PLAN Start Entresto 24/23 mg BID today. Patient continues to be significantly volume overloaded. Continue Lasix 40 mg IV twice a day. Give metolazone 2.5 mg 30 min before lasix. Reduce aspirin to 81 mg daily Stop Plavix Continue Eliquis 5 mg twice a day Continue metoprolol succinate 25 mg daily. Will not increase dose as patient is in significant congestive heart failure. May consider to uptitrate later Continue amiodarone 200 mg daily. Prognosis is guarded Patient will need ischemic evaluation and possible right heart catheterization once more stabilized. Consider adding Farxiga prior to Discharge when more stable Synopsis Patient is pleasant 72-year-old male with history of persistent atrial fibrillation, CAD with prior PCI, systolic heart failure, VT status post AICD, diabetes mellitus type 2, hypertension, hyperlipidemia. Patient presents from extended care facility secondary to increased confusion. He was found to be in A. fib with RVR with heart rates in the 140s to 150s and was placed on Cardizem drip. Additionally was found to have urinary tract infection with increased white blood cell blood cells and started on antibiotics. He does have increased white blood cell count up to 16. He also has acute kidney injury with creatinin e 1.5. Apparently he was more confused however was placed on BiPAP with some improvement in mentation however still unsure if some of his details. Denies any recent fevers or chills. Denies any chest pain or pressure. Admits he does have some degree of swelling however has been worsening. He was started on Lasix with good urine output. He was not tolerating oral medications and therefore IV metoprolol 2.5 mg every 6 hours was given. Additionally he was started on an amiodarone drip in addition to his oral amiodarone at home. Prior echo from September 2022 shows ejection fraction 35-40%. Objective - Vital Signs Vital signs: Vital Signs Temp 98.2 F 12/19/22 16:00 Pulse 109 H 12/19/22 16:00 Resp 18 12/19/22 16:00 BP 127/74 12/19/22 16:00 Pulse Ox 99 12/19/22 16:00 FiO2 30 12/19/22 04:34 Intake & Output 12/19/22 12/19/22 12/20/22 06:59 18:59 06:59 Intake Total 560 Output Total 3350 1725 Balance -3350 -1165 Weight 105 kg Intake: Oral 560 Output: Urine 3350 1725 Other: Voiding Method Indwelling Catheter Indwelling Catheter - Labs CBC & Chem 7: 12/19/22 07:29 12/19/22 07:29 Labs: Abnormal Lab Results - Last 24 Hours (Table) 12/18/22 12/19/22 12/19/22 Range/Units 19:57 06:05 07:29 RBC 2.63 L (4.30-5.90) m/uL Hgb 8.9 L (13.0-17.5) gm/dL Hct 27.2 L (39.0-53.0) % MCV 103.5 H (80.0-100.0) fL RDW 17.6 H (11.5-15.5) % Chloride (98-107) mmol/L BUN (9-20) mg/dL Glucose (74-99) mg/dL POC Glucose (mg/dL) 209 H 144 H (70-110) mg/dL Calcium (8.4-10.2) mg/dL 12/19/22 12/19/22 12/19/22 Range/Units 07:29 11:28 16:16 RBC (4.30-5.90) m/uL Hgb (13.0-17.5) gm/dL Hct (39.0-53.0) % MCV (80.0-100.0) fL RDW (11.5-15.5) % Chloride 97 L (98-107) mmol/L BUN 56 H (9-20) mg/dL Glucose 151 H (74-99) mg/dL POC Glucose (mg/dL) 191 H 174 H (70-110) mg/dL Calcium 8.1 L (8.4-10.2) mg/dL Microbiology - Last 24 Hours (Table) 12/18/22 05:13 Blood Culture - Preliminary Blood 12/17/22 08:42 Blood Culture - Preliminary Blood 12/17/22 08:20 Blood Culture Gram Stain - Preliminary Blood Blood Culture - Preliminary
[2022-12-19 19:24] LABS: Glucose,Whole Blood 197 mg/dL (70-110)
[2022-12-19] MEDS: ATORVASTATIN 40 MG TAB PO SCH (20:29)
[2022-12-19] MEDS: INSULIN DETEMIR (LEVEMIR) 100 UNIT/ML SYR SQ SCH (20:29)
[2022-12-19] MEDS: SERTRALINE 50 MG TAB PO SCH (20:30)
[2022-12-19] MEDS: SACUBITRIL/VALSARTAN 24 MG-26 MG TABLET PO SCH (20:31)
[2022-12-19] MEDS: risperiDONE 0.5 MG TAB PO SCH (20:31)
[2022-12-20] MEDS: AMPICILLIN-SULBACTAM 3 GM in SODIUM CHLORIDE 0.9% 100 ML IVPB SCH ×4 (00:04→17:41)
--- NOTE | 2022-12-20 06:44 | XR ---
EXAMINATION TYPE: XR chest 1V portable DATE OF EXAM: 12/20/2022 CLINICAL HISTORY: Difficulty breathing progress study. CHF. TECHNIQUE: Single AP portable upright view of the chest is obtained. COMPARISON: Chest x-ray from 5 days earlier FINDINGS: Persistent cardiomegaly with dual lead pacemaker/defibrillator. Stable tiny right pleural effusion or pleural thickening. Background Chronic parenchymal changes without suspicious new focal a irspace opacity. Surgical change of the midthoracic spine with multilevel vertebroplasty is redemonst rated. IMPRESSION: Chronic changes and Cardiomegaly with tiny right pleural effusion or pleural thickening r edemonstrated. No significant change from most recent x-ray.
[2022-12-20 06:45] LABS: Glucose,Whole Blood 137 mg/dL (70-110)
[2022-12-20] MEDS: INSULIN ASPART (NovoLOG) 100 UNIT/ML VIAL SQ SCH ×4 (06:45→21:00)
[2022-12-20] MEDS: CYCLOBENZAPRINE 5 MG TAB PO SCH ×3 (06:47→21:01)
[2022-12-20] MEDS: allopurinoL 100 MG TAB PO SCH (08:17)
[2022-12-20] MEDS: LIDOCAINE 5% PATCH TOPICAL SCH (08:17)
[2022-12-20] MEDS: APIXABAN 5 MG TAB PO SCH ×2 (08:17→17:41)
[2022-12-20] MEDS: metOLazone 2.5 MG TAB PO SCH (08:17)
[2022-12-20] MEDS: NITROGLYCERIN OINT 1 INCH/GM PACKET TOPICAL SCH ×4 (08:17→22:27)
[2022-12-20] MEDS: ACETAMINOPHEN TAB 500 MG TAB PO SCH ×3 (08:18→21:00)
[2022-12-20] MEDS: AMIODARONE 200 MG TAB PO SCH (08:18)
[2022-12-20] MEDS: OXYBUTYNIN XL 5 MG TAB.ER.24 PO SCH (08:18)
[2022-12-20] MEDS: METOPROLOL SUCCINATE (ER) 25 MG TAB.ER.24H PO SCH (08:18)
[2022-12-20] MEDS: ASPIRIN 81 MG PO SCH (08:18)
[2022-12-20] MEDS: FUROSEMIDE 10 MG/ML 4 ML VIAL IV SCH ×2 (08:19→21:01)
[2022-12-20] MEDS: PANTOPRAZOLE 40 MG/10 ML VIAL IVP SCH (08:19)
[2022-12-20] MEDS: SACUBITRIL/VALSARTAN 24 MG-26 MG TABLET PO SCH ×2 (08:19→21:01)
[2022-12-20] MEDS: THIAMINE 100 MG TAB PO SCH (08:22)
[2022-12-20] MEDS: BUDESONIDE 1 MG/2 ML NEBU INHALATION SCH ×2 (09:27→21:48)
[2022-12-20] MEDS: IPRATROPIUM-ALBUTEROL 3 ML NEB INHALATION SCH ×3 (09:28→21:48)
[2022-12-20 09:44] LABS: African American GFR (CKD) 90 (>60 ml/min/1.73 sqM); Anion Gap 16 mmol/L; Blood Urea Nitrogen 56 mg/dL (9-20); Calcium 7.7 mg/dL (8.4-10.2); Carbon Dioxide 25 mmol/L (22-30); Chloride 91 mmol/L (98-107); Glucose 205 mg/dL (74-99); Non-African American GFR(CKD) 78 (>60 ml/min/1.73 sqM); Sodium 132 mmol/L (137-145)
[2022-12-20] MEDS ORDERED: Potassium Replacement Protocol 1 EACH MISC MISCELLANE PRN (11:07)
--- NOTE | 2022-12-20 11:31 | P.PN ---
Subjective Progress Note Date: 12/20/22 Patient is a 72-year-old male with an extensive damage including systolic CHF, A. fib on Eliquis, CAD status post stents, COPD, type II DM, hypertension, who presents to the emergency room for concerns for tachycardia from SNF. Patient is a poor historian and majority of information is obtained from the chart. In the ED, Tmax was 100.1F. He was tachypneic with RR of 32, HR in the 120s with BP as low as 93/68. EKG showed atrial flutter with RVR and Q waves. CBC showed WBC 16.7, Hg 10.9, MCV 106. INR was 1.4. ABG showed pH 7.41, pCO2 45. CMP shows K 5.2, BUN 58, Cr 1.54, glucose 240. Troponin was 0.023, 0.022. Lactic acid 1.7. BNP 55760. UA showed large blood and large LE. He was initially admitted for Dr. Kaufman to the [facility]. A-team was called for hypotension and patient was subsequently transferred to the ICU. Blood cultures grew gram negative bacilli. Urine culture was negative. He is continued on Rocephin while awaiting finalized cultures. 12/16 Patient was seen and examined. Patient is currently being treated for A- Fib with RVR and Urosepsis. Blood culture + GNB. UCx negative. CBC shows Hg 8.2 MCV 105.7. CMP shows Na 136, BUN 67, Cr 1.7, glucose 113, Ca 8, albumin 2.4. Currently on Rocephin 2g IV QD. He is on Lasix 40 mg IV BID. He is on Amiodarone 200 mg PO QD. Amiodarone drip discontinued and weaned off Levophed. 12/17 Patient was seen and examined. CBC shows Hg 8 with MCV 105.7. BMP shows Na 135, BUN 66, Cr 1.34, glucose 128, Ca 7.8. Mag 2.1. Negative fluid balance of 890 cc over the past 24H. Cardiology recommends continued diuresis with metolazone while continuing ASA, Eliquis, low dose Metoprolol and Amiodarone while holding Entresto until BP improves. He remains off pressors with SBP in the high 90s and low 100s, HR improved to 110s. 12/18 Patient was seen and examined. Clinically improved. More alert and communicative. CBC shows Hg 8 with MCV 104.3. BMP shows Na 135, BUN 61, Cr 1.33, glucose 115, Ca 7.8. CRP 8.9. Negative fluid balance of 1089.09 cc over the past 24H. BCx finalized as proteus mirabilis. CT AP done yesterday shows bladder wall thickening along with rectal wall thickening, hepatosplenomegaly. ID recommends repeat UCx. 12/19 Patient was seen and examined. Sleeping comfortably. Rocephin switched to Unasyn yesterday by ID for concerns of colitis causing Proteus bacteremia. CBC shows Hg 8.9 with MCV 103.5. BMP shows Cl 97, BUN 56, glucose 151, Ca 8.1. Repeat BCx negative at 24H. Negative fluid balance of 1450 cc over the past 24H. 12/20 Patient was seen and examined. Repeat BCx growing staph epi / which is likely a contaminant. BMP shows Na 132, K 3, Cl 91, BUN 56, glucose 205, Ca 7.7. Negative fluid balance of 3865 cc over the past 24H. General: nontoxic, no distress, appears at stated age Derm: warm, dry Head: atraumatic, normocephalic, symmetric Eyes: EOMI, no lid lag, anicteric sclera Cardiovascular: S1S2 irregular irregular, no murmur Lungs: Coarse BS bilateral, no rhonchi, bibasilar rales , no accessory muscle use Ext: no gross muscle atrophy, 2+ edema, no contractures Neuro: no focal neuro deficits Psych: Alert, oriented, slow to respond Septic shock secondary to Proteus bacteremia Acute on chronic systolic CHF exacerbation Atrial fibrillation with RVR Acute kidney injury on chronic kidney disease Hypokalemia Diabetes mellitus with hyperglycemia Macrocytic anemia Based on my assessment of this patient, this patient meets a high complexity level of care. Patient has an acute diagnosis of urosepsis with septic shock requiring pressors that poses a threat to life or bodily function. Septic shock secondary to Proteus bacteremia: Maintain MAP > 65. Levophed if necessary. Rocephin switched to Unasyn on 12/18. Repeat BCx negative so far. Telemetry monitoring. ID on board. Acute on chronic systolic CHF exacerbation: Prior echo from September 2022 shows ejection fraction 35-40%. Cardiology on board. Lasix 40 mg IV BID. Metolazone 2.5 mg PO QD added on 12/17. Metoprolol 25 mg PO QD. Entresto restarted 12/19. Intake and Outtake. Daily weights. Atrial fibrillation with RVR: Amiodarone as above. Eliquis 5 mg PO BID for AC. Acute kidney injury on chronic kidney disease: Monitor since patient is on Lasix IV. Hypokalemia: KCl 40 meq IV ordered today. Check mag. Diabetes mellitus with hyperglycemia: ISS. Accuchecks ACHS. Hypoglycemic precautions. Add Levemir 10 units QHS. Macrocytic anemia: Transfuse if Hg < 7. I have reviewed the following medical cost consultant notes: I have reviewed the results of the following tests: BCx, BMP I have ordered the following tests: Mag, BMP I have discussed the care of this patient with the following independent historian: I have independently interpreted the following test below: I have discussed the management of this patient with the following physician: Lasix IV - intensive monitoring - renal function Objective - Vital Signs Vital signs: Vital Signs Temp 98.1 F 12/20/22 04:00 Pulse 128 H 12/20/22 08:08 Resp 19 12/20/22 08:08 BP 110/73 12/20/22 08:08 Pulse Ox 96 12/20/22 08:08 FiO2 30 12/20/22 04:00 Intake & Output 12/19/22 12/20/22 12/20/22 18:59 06:59 18:59 Intake Total 560 Output Total 1725 2500 Balance -1165 -2500 Weight 109.5 kg Intake: Oral 560 Output: Urine 1725 2500 Other: Voiding Method Indwelling Catheter Indwelling Catheter - Labs CBC & Chem 7: 12/19/22 07:29 12/20/22 09:01 Labs: Abnormal Lab Results - Last 24 Hours (Table) 12/19/22 12/19/22 12/19/22 Range/Units 11:28 16:16 19:23 POC Glucose (mg/dL) 191 H 174 H 197 H (70-110) mg/dL 12/20/22 Range/Units 06:44 POC Glucose (mg/dL) 137 H (70-110) mg/dL Microbiology - Last 24 Hours (Table) 12/18/22 05:13 Blood Culture - Preliminary Blood 12/17/22 08:42 Blood Culture - Preliminary Blood 12/17/22 08:20 Blood Culture Gram Stain - Preliminary Blood Blood Culture - Preliminary
[2022-12-20 11:44] LABS: Glucose,Whole Blood 202 mg/dL (70-110)
--- NOTE | 2022-12-20 11:56 | P.PN ---
Subjective Progress Note Date: 12/20/22 Subjective: Patient is doing well on current medical regimen. Blood pressure 110/73, BUN 56, creatinine 0.97 heart rate 110. Atrial fibrillation PHYSICAL EXAMINATION Vital signs reviewed. CONSTITUTIONAL: No apparent distress, confused HEENT: Head is normocephalic. Pupils are equal, round. Sclerae anicteric. Mucous membranes of the mouth are moist. No JVD. No carotid bruit. CHEST EXAMINATION: Lungs are clear to auscultation. No chest wall tenderness is noted on palpation or with deep breathing. HEART EXAMINATION: Irregular rhythm. S1, S2 heard. No murmurs, gallops or rub. ABDOMEN: Soft, nontender. Positive bowel sounds. EXTREMITIES: 2+ lower extremity edema NEUROLOGIC EXAMINATION: Patient is awake, alert and oriented x3. ASSESSMENT 1. Acute on chronic systolic heart failure 2. Altered mental status likely component of sepsis 3. Hypotension, likely component of sepsis on low-dose norepinephrine 4. Persistent A. fib with RVR 5. Hypertension 6. Cardiomyopathy ejection fraction 35-40% 7. History of coronary artery disease 8. Urinary tract infection 9. Acute kidney injury PLAN Start Aldactone 25 mg daily daily Continue Entresto 24/23 mg BID Patient continues to be significantly volume overloaded. Continue Lasix 40 mg IV twice a day. Give metolazone 2.5 mg 30 min before lasix. Stop aspirin Stop Plavix Continue Eliquis 5 mg twice a day Continue metoprolol succinate 25 mg daily. Will not increase dose as patient is in significant congestive heart failure. May consider to uptitrate later Continue amiodarone 200 mg daily. Prognosis is guarded Patient will need ischemic evaluation and possible right heart catheterization once more stabilized. Hold Eliquis 24 hours before the planned left and right heart cath Consider adding Farxiga prior to Discharge when more stable Synopsis Patient is pleasant 72-year-old male with history of persistent atrial fibrillation, CAD with prior PCI, systolic heart failure, VT status post AICD, diabetes mellitus type 2, hypertension, hyperlipidemia. Patient presents from extended care facility secondary to increased confusion. He was found to be in A. fib with RVR with heart rates in the 140s to 150s and was placed on Cardizem drip. Additionally was found to have urinary tract infection with increased white blood cell blood cells and started on antibiotics. He does have increased white blood cell count up to 16. He also has acute kidney injury with creatinine 1.5. Apparently he was more confused however was placed on BiPAP with some improvement in mentation however still unsure if some of his details. Denies any recent fevers or chills. Denies any chest pain or pressure. Admits he does have some degree of swelling however has been worsening. He was started on Lasix with good urine output. He was not tolerating oral medications and therefore IV metoprolol 2.5 mg every 6 hours was given. Additionally he was started on an amiodarone drip in addition to his oral amiodarone at home. Prior echo from September 2022 shows ejection fraction 35-40%. Objective - Vital Signs Vital signs: Vital Signs Temp 98.1 F 12/20/22 04:00 Pulse 128 H 12/20/22 11:14 Resp 19 12/20/22 11:14 BP 110/73 12/20/22 08:08 Pulse Ox 96 12/20/22 08:08 FiO2 30 12/20/22 04:00 Intake & Output 12/19/22 12/20/22 12/20/22 18:59 06:59 18:59 Intake Total 560 240 Output Total 1725 2500 Balance -1165 -2500 240 Weight 109.5 kg Intake: Oral 560 240 Output: Urine 1725 2500 Other: Voiding Method Indwelling Catheter Indwelling Catheter Indwelling Catheter - Labs CBC & Chem 7: 12/19/22 07:29 12/20/22 09:01 Labs: Abnormal Lab Results - Last 24 Hours (Table) 12/19/22 12/19/22 12/20/22 Range/Units 16:16 19:23 06:44 Sodium (137-145) mmol/L Potassium (3.5-5.1) mmol/L Chloride (98-107) mmol/L BUN (9-20) mg/dL Glucose (74-99) mg/dL POC Glucose (mg/dL) 174 H 197 H 137 H (70-110) mg/dL Calcium (8.4-10.2) mg/dL 12/20/22 12/20/22 Range/Units 09:01 11:42 Sodium 132 L (137-145) mmol/L Potassium 3.0 L (3.5-5.1) mmol/L Chloride 91 L (98-107) mmol/L BUN 56 H (9-20) mg/dL Glucose 205 H (74-99) mg/dL POC Glucose (mg/dL) 202 H (70-110) mg/dL Calcium 7.7 L (8.4-10.2) mg/dL Microbiology - Last 24 Hours (Table) 12/18/22 05:13 Blood Culture - Preliminary Blood 12/17/22 08:42 Blood Culture - Preliminary Blood 12/17/22 08:20 Blood Culture Gram Stain - Preliminary Blood Blood Culture - Preliminary
[2022-12-20] MEDS: POTASSIUM CHLORIDE ER 20 MEQ TAB.ER PO SCH ×2 (12:18→13:19)
--- NOTE | 2022-12-20 13:43 | P.PN ---
Subjective Progress Note Date: 12/20/22 Principal diagnosis: Acute hypoxic respiratory failure with acute systolic congestive heart failure and urosepsis, and gram-negative bacteremia I am seeing this patient in new consultation today 12/15/2022 on the cardiac stepdown unit after an A-team was called overhead. Patient is a 72-year-old white male with past medical history significant for paroxysmal atrial fibrillat ion, coronary artery disease with prior coronary stents, heart failure, V-tach s/p AICD, diabetes mellitus, hyperlipidemia, hypertension. Patient was brought into the emergency room yesterday afternoon from his extended care facility. I am told that he stays at [facility], and that he was found to be confused and tachycardic on rounds at the outside facility. While in the emergency room, he was found to be in atrial fibrillation with rapid ventricular rate. He has chronic atrial fibrillation. He was started on Cardizem 5 mg per hour for rate control. Urinalysis is also concerning for UTI and urosepsis. He has been started on Rocephin. CBC on arrival showed some leukocytosis with a WBC count of 16.7, hemoglobin 10.9, hematocrit 34.4, platelets 278. BMP on arrival showed a sodium of 138, potassium 5.2, chloride 99, serum bicarbonate 23, BUN 58, creatinine 1.54, glucose 240. There is a component of acute kidney injury. NT proBNP was also elevated at 24,000. Chest x-ray on arrival showed cardiomegaly with pulmonary vascular congestion, and small bilateral pleural effusions concerning for CHF exacerbation. Patient has known history of systolic heart failure with a left ventricular ejection fraction of 35-40%, along with moderate mitral and tricuspid regurgitation with moderate pulmonary hypertension. Patient has been started on Lasix 40 mg 3 times a day. Patient was originally admitted to the cardiac stepdown unit. On my evaluation, the patient is currently in room 367. He is minimally responsive to sternal rub. He is tachypneic and tachycardic. Cardizem is still infusing at 5 mg per hour. He is in some respiratory distress, and was placed on the BiPAP with settings of 12/6 and FiO2 of 60%. ABGs show pO2 of 181, pCO2 45, pH of 7.41 on these settings. Patient was ultimately transferred to the intensive care unit for closer monitoring. While in ICU, his blood pressure did become hypotensive and he was started on low-dose norepinephrine which is currently infusing at 0.03 mics per kilogram per minute. Cardizem was stopped due to hypotension, and switch to a miodarone per protocol. He is still confused, but is more alert to verbal and painful stimuli. Patient will be monitored in the intensive care unit. Patient was admitted on , remains in the ICU, he was on BiPAP last night 02/10/30% now the patient is on nasal cannula at 4 L, doing well, relatively asymptomatic, he is on ceftriaxone for his positive blood cultures showing gram- negative bacilli which is likely coming from his urosepsis. Patient is hemodynamically stable, not requiring any pressors, does not seem to be in any distress. WBC count is 9.6 hemoglobin 8.2 lites are normal BUN is 67 creatinine 1.70. Considering his relative stability I will transfer the patient out of the ICU to a monitor bed on . Reevaluated today on 12/17/2022, patient continues to do well, steadily improving. He is hemodynamically stable, not requiring any pressors at this point. At night he was on BiPAP 02/10/30% now he is on 2 L nasal cannula, blood cultures were positive for gram-negative bacilli, most likely source is his urine, turned out to be Proteus mirabilis and it is quite sensitive to all antibiotics, 2 blood cultures were noted to be positive for Proteus. Patient remains on ceftriaxone at 2 g daily. WBC count is 4.8 hemoglobin is 8 basic metabolic profile is normal renal profile is improving with creatinine down to 1.34, it was 1.7 yesterday Patient was evaluated on 12/18/2022, patient remains in the ICU, clinically improving, he is definitely more alert, communicating, does not seem to be in any distress, he is only on few liters nasal cannula. His labs are basically unremarkable, his hemoglobin is 8, basic metabolic profile is relatively normal except for creatinine of 1.33. Patient had negative fluid balance over the last 4 previous 24 hours. His cultures are positive for Proteus mirabilis and he is receiving treatment as per infectious disease on the case. Blood cultures also positive for Proteus mirabilis. No chest x-ray was done today. Reevaluated today on 12/19/2022, patient is now out of the ICU, he is on the cardiac floor, continues to do well, improving with antibiotics and diuretics. Remains on 2 L nasal cannula with O2 sats is 99% during the day, he is using BiPAP at night. Patient is on Unasyn as per infectious disease for his Proteus mirabilis infection in the urine , and in the blood W 79.8 hemoglobin 8.9 basic metabolic profile is normal l creatinine is significantly improved down to 1.14, BUN is 12, the report on his CT of abdomen and pelvis was reviewed, and that to be addressed by urology, patient did have some findings related to his bladder wall thickening. Pulmonary-mulligan the patient is actually doing better than expected Reevaluated today on 12/20/2022, patient continues to do well, responding well to treatment including diuretics and antibiotics. Remains on 2 L nasal cannula, and he does not seem to be in any form of distress. Chest x-ray today showed significant improvement in his interstitial edema. But not completely resolved. Labs today showed low potassium of 3.0 otherwise his labs are unremarkable BUN is 56 creatinine 0.97, patient was seen by cardiology and added Aldactone to his diuretics, patient has been on Lasix 40 mg IV push twice a day and metolazone 2.5 mg daily. Objective - Vital Signs Vital signs: Vital Signs Temp 98.1 F 12/20/22 04:00 Pulse 122 H 12/20/22 12:16 Resp 18 12/20/22 12:16 BP 123/62 12/20/22 12:16 Pulse Ox 96 12/20/22 08:08 FiO2 30 12/20/22 04:00 Intake & Output 12/19/22 12/20/22 12/20/22 18:59 06:59 18:59 Intake Total 560 240 Output Total 1725 2500 800 Balance -1165 -2500 -560 Weight 109.5 kg Intake: Oral 560 240 Output: Urine 1725 2500 800 Other: Voiding Method Indwelling Catheter Indwelling Catheter Indwelling Catheter - Exam Physical Exam: Revealed 72-year-old white male in no distress on 2 L nasal cannula Head: Atraumatic, normocephalic. HEENT:[Neck is supple.] [No neck masses.] [No thyromegaly.] [No JVD.] Chest: [Diminished breath sounds at the bases no crackles or rhonchi or wheezes Cardiac Exam: [Normal S1 and S2, no S3 gallop, no murmur.] Abdomen: [Soft, nontender, no megaly, no rebound, no guarding, normal bowel sounds.] Extremities: [No clubbing, 1+ bipedal edema, no cyanosis.] Neurological Exam: [No focal neurologic deficit.] Alert oriented 3 Psychiatric: Normal mood affect and normal mental status examination. - Labs CBC & Chem 7: 12/19/22 07:29 12/20/22 09:01 Labs: Abnormal Lab Results - Last 24 Hours (Table) 12/19/22 12/19/22 12/20/22 Range/Units 16:16 19:23 06:44 Sodium (137-145) mmol/L Potassium (3.5-5.1) mmol/L Chloride (98-107) mmol/L BUN (9-20) mg/dL Glucose (74-99) mg/dL POC Glucose (mg/dL) 174 H 197 H 137 H (70-110) mg/dL Calcium (8.4-10.2) mg/dL Magnesium (1.6-2.3) mg/dL 12/20/22 12/20/22 12/20/22 Range/Units 09:01 09:01 11:42 Sodium 132 L (137-145) mmol/L Potassium 3.0 L (3.5-5.1) mmol/L Chloride 91 L (98-107) mmol/L BUN 56 H (9-20) mg/dL Glucose 205 H (74-99) mg/dL POC Glucose (mg/dL) 202 H (70-110) mg/dL Calcium 7.7 L (8.4-10.2) mg/dL Magnesium 1.5 L (1.6-2.3) mg/dL Microbiology - Last 24 Hours (Table) 12/18/22 05:13 Blood Culture - Preliminary Blood 12/17/22 08:42 Blood Culture - Preliminary Blood 12/17/22 08:20 Blood Culture Gram Stain - Preliminary Blood Blood Culture - Preliminary Assessment and Plan Assessment: Impression: Acute hypoxemic respiratory failure, secondary to systolic CHF exacerbation. Continues to improve with diuretics Gram-negative bacteremia and urosepsis, secondary to Proteus mirabilis UTI and urosepsis, secondary to Proteus mirabilis, on Unasyn. Off ceftriaxone Septic shock, resolved Leukocytosis, secondary to above Acute kidney injury, improving creatinine Atrial fibrillation with rapid ventricular rate but presently rate remains high and not fully controlled. Cardiology is addressing History of ischemic cardiomyopathy, recent echocardiogram done September, showed a reduced ejection fraction of 35-40% along with moderate mitral and tricuspid regurgitation, moderate pulmonary hypertension. History of nonsustained ventricular tachycardia, status post AICD implantation Coronary artery disease, with prior coronary PCI Diabetes mellitus type 2 Benign essential hypertension Hyperlipidemia Obesity, with a BMI of 36 kg/m Recommendation: Continue diuretics including Lasix, Aldactone and metolazone. Continue antibiotics,/Unasyn Continue cardiac meds Chest x-ray today was reviewed Continue to use BiPAP at night and nasal cannula during the day We will continue to follow Time with Patient: Less than 30
[2022-12-20 16:43] LABS: Glucose,Whole Blood 197 mg/dL (70-110)
[2022-12-20] MEDS: MULTIVITAMINS, THERA 1 EACH TAB PO SCH (17:41)
--- NOTE | 2022-12-20 18:33 | P.PN ---
Subjective Progress Note Date: 12/20/22 Principal diagnosis: Proteus bacteremia possible abdominal source Patient is a 72-year-old male with a past medical history significant for diabetes mellitus hypertension hyperlipidemia atrial fibrillation and coronary disease patient presented to hospital for evaluation of weakness tachycardia. Patient did have evidence of Proteus bacteremia, did have positive UA with urine culture were negative. On today's evaluation that is 12/20/2022, the patient denies any fever or chills , the patient is breathing comfortably on 2LNC supplemental oxygen, the patient denies chest pain or cough/sputum production, patient denies nausea/vomiting , abdominal pain and no diarrhea reported Patient did have a white count of 9.8 as of yesterday, creatinine is 0.97, repeat cultures pending, see the abdominal pelvis with severe bladder wall thickening possible ileal wall thickening and there was concern for possible rectal wall thickening and perirectal fat stranding Objective - Vital Signs Vital signs: Vital Signs Temp 98.1 F 12/20/22 04:00 Pulse 114 H 12/20/22 17:38 Resp 18 12/20/22 17:38 BP 106/67 12/20/22 17:38 Pulse Ox 94 L 12/20/22 17:38 FiO2 30 12/20/22 04:00 Intake & Output 12/19/22 12/20/22 12/20/22 18:59 06:59 18:59 Intake Total 560 600 Output Total 1725 2500 800 Balance -1165 -2500 -200 Weight 109.5 kg Intake: Oral 560 600 Output: Urine 1725 2500 800 Other: Voiding Method Indwelling Catheter Indwelling Catheter Indwelling Catheter - Exam GENERAL DESCRIPTION: An elderly male lying in bed in no distress RESPIRATORY SYSTEM: Unlabored breathing , decreased breath sounds at bases HEART: S1 S2 regular rate and rhythm , ABDOMEN: Soft , no tenderness EXTREMITIES: No edema feet - Labs CBC & Chem 7: 12/19/22 07:29 12/20/22 09:01 Labs: Abnormal Lab Results - Last 24 Hours (Table) 12/19/22 12/20/22 12/20/22 Range/Units 19:23 06:44 09:01 Sodium 132 L (137-145) mmol/L Potassium 3.0 L (3.5-5.1) mmol/L Chloride 91 L (98-107) mmol/L BUN 56 H (9-20) mg/dL Glucose 205 H (74-99) mg/dL POC Glucose (mg/dL) 197 H 137 H (70-110) mg/dL Calcium 7.7 L (8.4-10.2) mg/dL Magnesium (1.6-2.3) mg/dL 12/20/22 12/20/22 12/20/22 Range/Units 09:01 11:42 16:41 Sodium (137-145) mmol/L Potassium (3.5-5.1) mmol/L Chloride (98-107) mmol/L BUN (9-20) mg/dL Glucose (74-99) mg/dL POC Glucose (mg/dL) 202 H 197 H (70-110) mg/dL Calcium (8.4-10.2) mg/dL Magnesium 1.5 L (1.6-2.3) mg/dL Microbiology - Last 24 Hours (Table) 12/17/22 08:20 Blood Culture Gram Stain - Final Blood Blood Culture - Final Coagulase Negative Staph 12/18/22 05:13 Blood Culture - Preliminary Blood 12/17/22 08:42 Blood Culture - Preliminary Blood Assessment and Plan (1) Gram-negative bacteremia Current Visit: Yes Status: Acute Code(s): R78.81 - BACTEREMIA SNOMED Code(s): 501582417310 (2) Proctitis Current Visit: Yes Status: Acute Code(s): K62.89 - OTHER SPECIFIED DISEASES OF ANUS AND RECTUM SNOMED Code(s): 2120472 (3) UTI (urinary tract infection) Current Visit: Yes Status: Acute Code(s): N39.0 - URINARY TRACT INFECTION, SITE NOT SPECIFIED SNOMED Code(s): 60327073 Plan: Patient presented to hospital with sepsis in this patient with a fever tachycardia elevated white count source likely urinary as the patient has significantly positive UA and blood cultures are growing Proteus however urine culture has been reported negative , patient did have a CT of abdominal pelvis with evidence of cystitis and proctitis as well as ileal enteritis 2- repeat culture with staph epi , likely skin contaminant and no need for vancomycin 3-We will continue the patient on Unasyn concerning for possible abdominal source for this bacteremia with plan to finish therapy with augmentin Dictation was produced using [employer] dictation software. please excuse any grammatical, word or spelling errors. Time with Patient: Less than 30
[2022-12-20 20:08] LABS: Glucose,Whole Blood 232 mg/dL (70-110)
[2022-12-20] MEDS: SERTRALINE 50 MG TAB PO SCH (21:00)
[2022-12-20] MEDS: ATORVASTATIN 40 MG TAB PO SCH (21:01)
[2022-12-20] MEDS: risperiDONE 0.5 MG TAB PO SCH (21:01)
[2022-12-20] MEDS: INSULIN DETEMIR (LEVEMIR) 100 UNIT/ML SYR SQ SCH (22:27)
[2022-12-21] MEDS: AMPICILLIN-SULBACTAM 3 GM in SODIUM CHLORIDE 0.9% 100 ML IVPB SCH ×4 (00:41→20:27)
[2022-12-21] MEDS ORDERED: polyethylene glycoL 3350 17 GM POWD.PACK PO STA (05:27)
[2022-12-21 06:07] LABS: Glucose,Whole Blood 152 mg/dL (70-110)
[2022-12-21] MEDS: CYCLOBENZAPRINE 5 MG TAB PO SCH ×3 (06:25→20:30)
[2022-12-21] MEDS: INSULIN ASPART (NovoLOG) 100 UNIT/ML VIAL SQ SCH ×4 (06:25→20:30)
[2022-12-21] MEDS: BUDESONIDE 1 MG/2 ML NEBU INHALATION SCH ×2 (08:54→20:36)
[2022-12-21] MEDS: IPRATROPIUM-ALBUTEROL 3 ML NEB INHALATION SCH ×3 (08:54→20:36)
[2022-12-21] MEDS: MAGNESIUM SULFATE-D5W PMX 1 GM in DEXTROSE/WATER 1 100ML.BAG IVPB SCH ×2 (09:12→10:14)
[2022-12-21] MEDS: ACETAMINOPHEN TAB 500 MG TAB PO SCH ×3 (09:13→20:28)
[2022-12-21] MEDS: FUROSEMIDE 10 MG/ML 4 ML VIAL IV SCH ×2 (09:13→20:28)
[2022-12-21] MEDS: LIDOCAINE 5% PATCH TOPICAL SCH (09:13)
[2022-12-21] MEDS: SPIRONOLACTONE 25 MG TAB PO SCH (09:13)
[2022-12-21] MEDS: NITROGLYCERIN OINT 1 INCH/GM PACKET TOPICAL SCH (09:13)
[2022-12-21] MEDS: PANTOPRAZOLE 40 MG/10 ML VIAL IVP SCH (09:13)
[2022-12-21] MEDS: allopurinoL 100 MG TAB PO SCH (09:14)
[2022-12-21] MEDS: THIAMINE 100 MG TAB PO SCH (09:14)
[2022-12-21] MEDS: AMIODARONE 200 MG TAB PO SCH (09:14)
[2022-12-21] MEDS: METOPROLOL SUCCINATE (ER) 25 MG TAB.ER.24H PO SCH ×2 (09:14→20:30)
[2022-12-21] MEDS: SACUBITRIL/VALSARTAN 24 MG-26 MG TABLET PO SCH ×2 (09:14→20:30)
[2022-12-21] MEDS: APIXABAN 5 MG TAB PO SCH ×2 (09:14→17:37)
[2022-12-21] MEDS: MULTIVITAMINS, THERA 1 EACH TAB PO SCH (09:14)
[2022-12-21] MEDS: OXYBUTYNIN XL 5 MG TAB.ER.24 PO SCH (09:14)
[2022-12-21] MEDS: metOLazone 2.5 MG TAB PO SCH (09:15)
[2022-12-21 09:54] LABS: Anisocytosis Slight; HGB 8.3 gm/dL (13.0-17.5); Hypochromasia Marked; MCH 33.1 pg (25.0-35.0); MCHC 31.9 g/dL (31.0-37.0); MCV 103.6 fL (80.0-100.0); Macrocytosis Moderate; Mean Platelet Volume 7.9; Platelet Count 232 k/uL (150-450); Poikilocytosis Moderate; RDW 17.7 % (11.5-15.5); WBC 10.6 k/uL (3.8-10.6)
[2022-12-21] MEDS: DAPAGLIFLOZIN PROPANEDIOL 10 MG TABLET PO SCH (10:13)
[2022-12-21 10:16] LABS: African American GFR (CKD) 61 (>60 ml/min/1.73 sqM); Anion Gap 13 mmol/L; Blood Urea Nitrogen 57 mg/dL (9-20); Calcium 7.7 mg/dL (8.4-10.2); Carbon Dioxide 29 mmol/L (22-30); Chloride 94 mmol/L (98-107); Glucose 179 mg/dL (74-99); Non-African American GFR(CKD) 53 (>60 ml/min/1.73 sqM); Potassium 3.1 mmol/L (3.5-5.1); Sodium 136 mmol/L (137-145)
--- NOTE | 2022-12-21 10:23 | P.PN ---
Subjective HISTORY OF PRESENT ILLNESS: This is 72-year-old male who follows in the office with Dr. Piedra. Patient is admitted to the hospital secondary to sepsis and congestive heart failure. Patient examined this morning at the bedside. Patient currently denies chest pain or pressure. He reports improvement in his shortness of breath. He remains on IV Lasix. Telemetry reveals atrial fibrillation with heart rate around 110. PHYSICAL EXAM: VITAL SIGNS: Reviewed. GENERAL: Well-developed in no acute distress. NECK: Supple. No JVD or thyromegaly LUNGS: Respirations even and unlabored. Lungs diminished with bibasilar crackles. HEART: Tachycardic. Irregular rate and rhythm. S1 and S2 heard. EXTREMITIES: Normal range of motion. No clubbing or cyanosis. Peripheral pulses intact. 1-2+ bilateral lower extremity edema ASSESSMENT: Sepsis Hypotension requiring vasopressors, resolved Acute on chronic heart failure with reduced ejection fraction Persistent atrial fibrillation with RVR Altered mental status History of coronary artery disease Ischemic cardiac myopathy, ejection fraction 35-40% History of hypertension History of ventricular tachycardia, status post AICD Diabetes PLAN: Continue current cardiac medications Continue IV Lasix 40 mg every 12 hours Daily weights, accurate I&O, and monitoring of kidney function Increase metoprolol succinate 25 mg twice a day Continue telemetry monitoring Add Farxiga 10mg daily Further recommendations pending patient's course Nurse practitioner note has been reviewed by physician. Signing provider agrees with the documented findings, assessment, and plan of care. Objective - Vital Signs Vital signs: Vital Signs Temp 98.2 F 12/21/22 04:00 Pulse 117 H 12/21/22 09:11 Resp 20 12/21/22 04:00 BP 99/67 12/21/22 04:00 Pulse Ox 94 L 12/21/22 08:55 FiO2 30 12/21/22 00:46 Intake & Output 12/20/22 12/21/22 12/21/22 18:59 06:59 18:59 Intake Total 600 110 Output Total 800 1225 Balance -200 -1225 110 Weight 108.5 kg Intake: Oral 600 110 Output: Urine 800 1225 Other: Voiding Method Indwelling Catheter Indwelling Catheter - Labs CBC & Chem 7: 12/21/22 08:39 12/21/22 08:39 Labs: Abnormal Lab Results - Last 24 Hours (Table) 12/20/22 12/20/2223 Range/Units 09:01 11:42 16:41 RBC (4.30-5.90) m/uL Hgb (13.0-17.5) gm/dL Hct (39.0-53.0) % MCV (80.0-100.0) fL RDW (11.5-15.5) % Sodium (137-145) mmol/L Potassium (3.5-5.1) mmol/L Chloride (98-107) mmol/L BUN (9-20) mg/dL Creatinine (0.66-1.25) mg/dL Glucose (74-99) mg/dL POC Glucose (mg/dL) 202 H 197 H (70-110) mg/dL Calcium (8.4-10.2) mg/dL Magnesium 1.5 L (1.6-2.3) mg/dL 12/20/22 12/21/22 12/21/22 Range/Units 20:06 06:06 08:39 RBC 2.50 L (4.30-5.90) m/uL Hgb 8.3 L (13.0-17.5) gm/dL Hct 26.0 L (39.0-53.0) % MCV 103.6 H (80.0-100.0) fL RDW 17.7 H (11.5-15.5) % Sodium (137-145) mmol/L Potassium (3.5-5.1) mmol/L Chloride (98-107) mmol/L BUN (9-20) mg/dL Creatinine (0.66-1.25) mg/dL Glucose (74-99) mg/dL POC Glucose (mg/dL) 232 H 152 H (70-110) mg/dL Calcium (8.4-10.2) mg/dL Magnesium (1.6-2.3) mg/dL 12/21/22 Range/Units 08:39 RBC (4.30-5.90) m/uL Hgb (13.0-17.5) gm/dL Hct (39.0-53.0) % MCV (80.0-100.0) fL RDW (11.5-15.5) % Sodium 136 L (137-145) mmol/L Potassium 3.1 L (3.5-5.1) mmol/L Chloride 94 L (98-107) mmol/L BUN 57 H (9-20) mg/dL Creatinine 1.34 H (0.66-1.25) mg/dL Glucose 179 H (74-99) mg/dL POC Glucose (mg/dL) (70-110) mg/dL Calcium 7.7 L (8.4-10.2) mg/dL Magnesium (1.6-2.3) mg/dL Microbiology - Last 24 Hours (Table) 12/17/22 08:20 Blood Culture Gram Stain - Final Blood Blood Culture - Final Coagulase Negative Staph 12/18/22 05:13 Blood Culture - Preliminary Blood 12/17/22 08:42 Blood Culture - Preliminary Blood
[2022-12-21 11:09] LABS: Glucose,Whole Blood 202 mg/dL (70-110)
--- NOTE | 2022-12-21 12:32 | P.PN ---
Subjective Progress Note Date: 12/21/22 Patient is a 72-year-old male with an extensive damage including systolic CHF, A. fib on Eliquis, CAD status post stents, COPD, type II DM, hypertension, who presents to the emergency room for concerns for tachycardia from SNF. Patient is a poor historian and majority of information is obtained from the chart. In the ED, Tmax was 100.1F. He was tachypneic with RR of 32, HR in the 120s with BP as low as 93/68. EKG showed atrial flutter with RVR and Q waves. CBC showed WBC 16.7, Hg 10.9, MCV 106. INR was 1.4. ABG showed pH 7.41, pCO2 45. CMP shows K 5.2, BUN 58, Cr 1.54, glucose 240. Troponin was 0.023, 0.022. Lactic acid 1.7. BNP 04934. UA showed large blood and large LE. He was initially admitted for Dr. Kaufman to the [facility]. A-team was called for hypotension and patient was subsequently transferred to the ICU. Blood cultures grew gram negative bacilli. Urine culture was negative. He is continued on Rocephin while awaiting finalized cultures. 12/16 Patient is currently being treated for A-Fib with RVR and Urosepsis. Blood culture + GNB. UCx negative. Currently on Rocephin 2g IV QD. He is on Lasix 40 mg IV BID. He is on Amiodarone 200 mg PO QD. Amiodarone drip discontinued and weaned off Levophed. 12/17 Negative fluid balance of 890 cc over the past 24H. Cardiology recommends continued diuresis with metolazone while continuing ASA, Eliquis, low dose Metoprolol and Amiodarone while holding Entresto until BP improves. He remains off pressors with SBP in the high 90s and low 100s, HR improved to 110s. 12/18 Clinically improved. More alert and communicative. Negative fluid balance of 1089.09 cc over the past 24H. BCx finalized as proteus mirabilis. CT AP done yesterday shows bladder wall thickening along with rectal wall thickening, hepatosplenomegaly. ID recommends repeat UCx. 12/19 Rocephin switched to Unasyn 12/18 by ID for concerns of colitis causing Proteus bacteremia. Repeat BCx negative at 24H. Negative fluid balance of 1450 cc over the past 24H. 12/20 Repeat BCx growing staph epi 1/2 which is likely a contaminant. Negative fluid balance of 3865 cc over the past 24H. His BP has improved, thus Cardiology has added Aldactone and Entresto to his medication regimen. 12/21 Patient was seen and examined. Plans to continue Unasyn for now patient should be able to transition to Augmentin on discharge. CXR done yesterday shows improvement in pulmonary edema. Negative fluid balance of 3665 cc over the past 24H. Continued on Lasix IV and Metolazone. CBC shows Hg 8.3 and MCV 103.6. BMP shows Na 136, K 3.1, Cl 94, BUN 57, Cr 1.34, glucose 179, Ca 7.7. Mag sulfate 2g IV ordered for Mag of 1.5. KCl 40 meq IV ordered for K of 3.1. Plans to return to [facility] on discharge. General: nontoxic, no distress, appears at stated age Derm: warm, dry Head: atraumatic, normocephalic, symmetric Eyes: EOMI, no lid lag, anicteric sclera Cardiovascular: S1S2 irregular irregular, no murmur Lungs: Coarse BS bilateral, no rhonchi, bibasilar rales , no accessory muscle use Ext: no gross muscle atrophy, 2+ edema, no contractures Neuro: no focal neuro deficits Psych: Alert, oriented, slow to respond Septic shock secondary to Proteus bacteremia Acute on chronic systolic CHF exacerbation Atrial fibrillation with RVR Acute kidney injury on chronic kidney disease Hypokalemia and hypoMg Diabetes mellitus with hyperglycemia Macrocytic anemia Based on my assessment of this patient, this patient meets a high complexity level of care. Patient has an acute diagnosis of urosepsis with septic shock requiring pressors that poses a threat to life or bodily function. Septic shock secondary to Proteus bacteremia: Maintain MAP > 65. Levophed if necessary. Rocephin switched to Unasyn on 12/18. Plans to transition to Augmentin on discharge. 12/14 BCx + proteus x 2. 12/17 BCx grew 1/2 staph epi likely contaminant. 12/18 BCx negative at 48H. Telemetry monitoring. ID on board. Acute on chronic systolic CHF exacerbation: Prior echo from September 2022 shows ejection fraction 35-40%. Cardiology on board. Lasix 40 mg IV BID. Metolazone 2.5 mg PO QD added on 12/17. Metoprolol 20 mg PO QD started 12/15. Entresto started 12/19. Aldactone started 12/21. Intake and Outtake. Daily weights. Atrial fibrillation with RVR: Amiodarone as above. Metoprolol as above. Eliquis 5 mg PO BID for AC. Acute kidney injury on chronic kidney disease: Monitor since patient is on Lasix IV. Hypokalemia and hypoMg: Mag sulfate 2g IV ordered. BMP pending. Diabetes mellitus with hyperglycemia: ISS. Accuchecks ACHS. Hypoglycemic precautions. Levemir 10 units QHS. Macrocytic anemia: Transfuse if Hg < 7. I have reviewed the following pricing consultant notes: Pulmonology, Cardiology, Infectious disease note. I have reviewed the results of the following tests: BMP, BCx, Mag I have ordered the following tests: BMP. I have discussed the care of this patient with the following independent historian: I have independently interpreted the following test below: I have discussed the management of this patient with the following physician: Lasix IV - intensive monitoring - renal function Objective - Vital Signs Vital signs: Vital Signs Temp 98.2 F 12/21/22 04:00 Pulse 118 H 12/21/22 04:00 Resp 20 12/21/22 04:00 BP 99/67 12/21/22 04:00 Pulse Ox 94 L 12/21/22 04:00 FiO2 30 12/21/22 00:46 Intake & Output 12/20/22 12/21/22 12/21/22 18:59 06:59 18:59 Intake Total 600 110 Output Total 800 1225 Balance -200 -1225 110 Weight 108.5 kg Intake: Oral 600 110 Output: Urine 800 1225 Other: Voiding Method Indwelling Catheter Indwelling Catheter - Labs CBC & Chem 7: 12/21/22 08:39 12/21/22 08:39 Labs: Abnormal Lab Results - Last 24 Hours (Table) 12/20/22 12/20/22 12/20/22 Range/Units 09:01 09:01 11:42 Sodium 132 L (137-145) mmol/L Potassium 3.0 L (3.5-5.1) mmol/L Chloride 91 L (98-107) mmol/L BUN 56 H (9-20) mg/dL Glucose 205 H (74-99) mg/dL POC Glucose (mg/dL) 202 H (70-110) mg/dL Calcium 7.7 L (8.4-10.2) mg/dL Magnesium 1.5 L (1.6-2.3) mg/dL 12/20/22 12/20/22 12/21/22 Range/Units 16:41 20:06 06:06 Sodium (137-145) mmol/L Potassium (3.5-5.1) mmol/L Chloride (98-107) mmol/L BUN (9-20) mg/dL Glucose (74-99) mg/dL POC Glucose (mg/dL) 197 H 232 H 152 H (70-110) mg/dL Calcium (8.4-10.2) mg/dL Magnesium (1.6-2.3) mg/dL Microbiology - Last 24 Hours (Table) 12/17/22 08:20 Blood Culture Gram Stain - Final Blood Blood Culture - Final Coagulase Negative Staph 12/18/22 05:13 Blood Culture - Preliminary Blood 12/17/22 08:42 Blood Culture - Preliminary Blood
[2022-12-21] MEDS: POTASSIUM CHLORIDE 10 MEQ in WATER FOR INJECTION 1 100ML.BAG IVPB SCH ×3 (13:11→18:21)
--- NOTE | 2022-12-21 14:07 | P.PN ---
Subjective Progress Note Date: 12/21/22 Principal diagnosis: Atrial fibrillation, UTI. Reevaluated today on 12/17/2022, patient continues to do well, steadily improving. He is hemodynamically stable, not requiring any pressors at this point. At night he was on BiPAP 12/30% now he is on 2 L nasal cannula, blood cultures were positive for gram-negative bacilli, most likely source is his urine, turned out to be Proteus mirabilis and it is quite sensitive to all antibiotics, 2 blood cultures were noted to be positive for Proteus. Patient remains on ceftriaxone at 2 g daily. WBC count is 4.8 hemoglobin is 8 basic metabolic profile is normal renal profile is improving with creatinine down to 1.34, it was 1.7 yesterday Patient was evaluated on 12/18/2022, patient remains in the ICU, clinically improving, he is definitely more alert, communicating, does not seem to be in any distress, he is only on few liters nasal cannula. His labs are basically unremarkable, his hemoglobin is 8, basic metabolic profile is relatively normal except for creatinine of 1.33. Patient had negative fluid balance over the last 4 previous 24 hours. His cultures are positive for Proteus mirabilis and he is receiving treatment as per infectious disease on the case. Blood cultures also positive for Proteus mirabilis. No chest x-ray was done today. Reevaluated today on 12/19/2022, patient is now out of the ICU, he is on the cardiac floor, continues to do well, improving with antibiotics and diuretics. Remains on 2 L nasal cannula with O2 sats is 99% during the day, he is using BiPAP at night. Patient is on Unasyn as per infectious disease for his Proteus mirabilis infection in the urine , and in the blood W 79.8 hemoglobin 8.9 basic metabolic profile is normal l creatinine is significantly improved down to 1.14, BUN is 12, the report on his CT of abdomen and pelvis was reviewed, and that to be addressed by urology, patient did have some findings related to his bladder wall thickening. Pulmonary-mulligan the patient is actually doing better than expected Reevaluated today on 12/20/2022, patient continues to do well, responding well to treatment including diuretics and antibiotics. Remains on 2 L nasal cannula, and he does not seem to be in any form of distress. Chest x-ray today showed significant improvement in his interstitial edema. But not completely resolved. Labs today showed low potassium of 3.0 otherwise his labs are unremarkable BUN is 56 creatinine 0.97, patient was seen by cardiology and added Aldactone to his diuretics, patient has been on Lasix 40 mg IV push twice a day and metolazone 2.5 mg daily. Progress note dated 12/21/2022. The patient is seen today in room 354. He is currently on room air. He's not receiving any IV fluids. He did use BiPAP, at 12/6 and 30%. He used it for 5 hours last night. The patient is currently being evaluated for possible discharge, to one of the local nursing homes. The patient has no new complaints today. Labs today include a white count 10.6, hemoglobin 8.3, hematocrit 26, and a platelet count 232,000. Sodium 136, potassium 3.1, chlorides 94, CO2 29, BUN 57, and creatinine 1.34. 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 Chest x-ray from yesterday shows chronic changes with cardiomegaly, and a tiny right pleural effusion. Objective - Vital Signs Vital signs: Vital Signs Temp 97.6 F 12/21/22 08:00 Pulse 107 H 12/21/22 12:48 Resp 20 12/21/22 08:00 BP 111/61 12/21/22 08:00 Pulse Ox 94 L 12/21/22 08:55 FiO2 30 12/21/22 00:46 Intake & Output 12/20/22 12/21/22 12/21/22 18:59 06:59 18:59 Intake Total 600 220 Output Total 800 1225 700 Balance -200 -1225 -480 Weight 108.5 kg Intake: Oral 600 220 Output: Urine 800 1225 700 Other: Voiding Method Indwelling Catheter Indwelling Catheter Indwelling Catheter - Exam No acute distress, oriented 3. No respiratory distress. Currently on room air. HEENT examination is grossly unremarkable. Neck supple. Full range of motion. No adenopathy thyromegaly or neck vein distention. Cardiovascular examination reveals regular rhythm rate. S1-S2 normal. No S3 or S4. No discernible murmur noted. Heart rate 82 bpm. Lungs reveal clear breath sounds. Breath sounds are equal bilaterally. No adventitious lung sounds including wheezes rhonchi or crackles. Saturations are 96% on room air. Abdomen soft bowel sounds are heard. No masses or tenderness. Extremities are intact. No cyanosis clubbing or edema. Skin is without rash or lesion. Neurologic examination is brief but nonfocal. - Labs CBC & Chem 7: 12/21/22 08:39 12/21/22 08:39 Labs: Abnormal Lab Results - Last 24 Hours (Table) 12/20/22 12/20/22 12/21/22 Range/Units 16:41 20:06 06:06 RBC (4.30-5.90) m/uL Hgb (13.0-17.5) gm/dL Hct (39.0-53.0) % MCV (80.0-100.0) fL RDW (11.5-15.5) % Sodium (137-145) mmol/L Potassium (3.5-5.1) mmol/L Chloride (98-107) mmol/L BUN (9-20) mg/dL Creatinine (0.66-1.25) mg/dL Glucose (74-99) mg/dL POC Glucose (mg/dL) 197 H 232 H 152 H (70-110) mg/dL Calcium (8.4-10.2) mg/dL 12/21/22 12/21/22 12/21/22 Range/Units 08:39 08:39 11:08 RBC 2.50 L (4.30-5.90) m/uL Hgb 8.3 L (13.0-17.5) gm/dL Hct 26.0 L (39.0-53.0) % MCV 103.6 H (80.0-100.0) fL RDW 17.7 H (11.5-15.5) % Sodium 136 L (137-145) mmol/L Potassium 3.1 L (3.5-5.1) mmol/L Chloride 94 L (98-107) mmol/L BUN 57 H (9-20) mg/dL Creatinine 1.34 H (0.66-1.25) mg/dL Glucose 179 H (74-99) mg/dL POC Glucose (mg/dL) 202 H (70-110) mg/dL Calcium 7.7 L (8.4-10.2) mg/dL Microbiology - Last 24 Hours (Table) 12/18/22 05:13 Blood Culture - Preliminary Blood 12/17/22 08:20 Blood Culture Gram Stain - Final Blood Blood Culture - Final Coagulase Negative Staph 12/17/22 08:42 Blood Culture - Preliminary Blood Assessment and Plan Assessment: Acute hypoxemic respiratory failure secondary to systolic CHF exacerbation, improved. Gram-negative bacteremia, urosepsis, secondary to Proteus mirabilis. UTI/urosepsis, secondary to Proteus species. Septic shock, resolved. Acute kidney injury. Atrial fibrillation with RVR. History of ischemic cardiomyopathy, with an ejection fraction of 35-40%, valvular heart disease in the form of moderate mitral and tricuspid regurgitation, and moderate pulmonary hypertension. History of nonsustained ventricular tachycardia. CAD with prior PCI. Type 2 diabetes mellitus. Benign essential hypertension. Hyperlipidemia. Obesity. Plan: Plan dated 12/21/2022. The patient is seen today in room 354. The patient's currently on room air. The patient's not receiving any IV fluids. The patient didn't use BiPAP last night for 5 hours. The patient is being evaluated for possible discharge tomorrow the local nursing homes. The final decision has been made about discharge. We will continue to follow the patient, make recommendations along the way. Prognosis is guarded. Time with Patient: Less than 30
[2022-12-21 16:09] LABS: Glucose,Whole Blood 215 mg/dL (70-110)
[2022-12-21 17:24] LABS: Glucose,Whole Blood 204 mg/dL (70-110)
[2022-12-21] MEDS: POTASSIUM CHLORIDE ER 20 MEQ TAB.ER PO SCH ×2 (17:37→20:29)
[2022-12-21 19:59] LABS: Glucose,Whole Blood 200 mg/dL (70-110)
[2022-12-21] MEDS: INSULIN DETEMIR (LEVEMIR) 100 UNIT/ML SYR SQ SCH (20:27)
[2022-12-21] MEDS: risperiDONE 0.5 MG TAB PO SCH (20:28)
[2022-12-21] MEDS: ATORVASTATIN 40 MG TAB PO SCH (20:29)
[2022-12-22 05:33] LABS: Glucose,Whole Blood 148 mg/dL (70-110)
[2022-12-22] MEDS: INSULIN ASPART (NovoLOG) 100 UNIT/ML VIAL SQ SCH ×4 (06:10→21:56)
[2022-12-22] MEDS: CYCLOBENZAPRINE 5 MG TAB PO SCH ×3 (06:24→22:07)
[2022-12-22] MEDS: AMPICILLIN-SULBACTAM 3 GM in SODIUM CHLORIDE 0.9% 100 ML IVPB SCH ×3 (06:25→17:44)
[2022-12-22 07:18] LABS: African American GFR (CKD) 69 (>60 ml/min/1.73 sqM); Anion Gap 14 mmol/L; Blood Urea Nitrogen 55 mg/dL (9-20); Calcium 8.1 mg/dL (8.4-10.2); Carbon Dioxide 24 mmol/L (22-30); Chloride 97 mmol/L (98-107); Glucose 110 mg/dL (74-99); Non-African American GFR(CKD) 59 (>60 ml/min/1.73 sqM); Sodium 135 mmol/L (137-145)
[2022-12-22 07:50] LABS: Potassium 3.9 mmol/L (3.5-5.1)
[2022-12-22] MEDS: BUDESONIDE 1 MG/2 ML NEBU INHALATION SCH ×2 (07:50→21:44)
[2022-12-22] MEDS: IPRATROPIUM-ALBUTEROL 3 ML NEB INHALATION SCH ×3 (07:51→21:44)
[2022-12-22] MEDS: APIXABAN 5 MG TAB PO SCH ×2 (08:49→17:44)
[2022-12-22] MEDS: OXYBUTYNIN XL 5 MG TAB.ER.24 PO SCH (08:49)
[2022-12-22] MEDS: METOPROLOL SUCCINATE (ER) 25 MG TAB.ER.24H PO SCH (08:49)
[2022-12-22] MEDS: THIAMINE 100 MG TAB PO SCH (08:49)
[2022-12-22] MEDS: AMIODARONE 200 MG TAB PO SCH (08:49)
[2022-12-22] MEDS: allopurinoL 100 MG TAB PO SCH (08:49)
[2022-12-22] MEDS: SPIRONOLACTONE 25 MG TAB PO SCH (08:49)
[2022-12-22] MEDS: ACETAMINOPHEN TAB 500 MG TAB PO SCH ×3 (08:49→22:05)
[2022-12-22] MEDS: LIDOCAINE 5% PATCH TOPICAL SCH (08:50)
[2022-12-22] MEDS: PANTOPRAZOLE 40 MG/10 ML VIAL IVP SCH (08:50)
[2022-12-22] MEDS: FUROSEMIDE 10 MG/ML 4 ML VIAL IV SCH ×2 (08:50→22:03)
[2022-12-22] MEDS: metOLazone 2.5 MG TAB PO SCH (08:50)
[2022-12-22] MEDS: DAPAGLIFLOZIN PROPANEDIOL 10 MG TABLET PO SCH (08:50)
[2022-12-22] MEDS: SACUBITRIL/VALSARTAN 24 MG-26 MG TABLET PO SCH ×2 (08:50→22:07)
[2022-12-22] MEDS ORDERED: METOPROLOL SUCCINATE (ER) 25 MG TAB.ER.24H PO STA (09:52)
[2022-12-22 10:58] VITALS: BMI 35.6
[2022-12-22 11:09] LABS: Glucose,Whole Blood 187 mg/dL (70-110)
--- NOTE | 2022-12-22 12:36 | P.PN ---
Subjective Progress Note Date: 12/22/22 Principal diagnosis: Atrial fibrillation, UTI. Reevaluated today on 12/17/2022, patient continues to do well, steadily improving. He is hemodynamically stable, not requiring any pressors at this point. At night he was on BiPAP 12/30% now he is on 2 L nasal cannula, blood cultures were positive for gram-negative bacilli, most likely source is his urine, turned out to be Proteus mirabilis and it is quite sensitive to all antibiotics, 2 blood cultures were noted to be positive for Proteus. Patient remains on ceftriaxone at 2 g daily. WBC count is 4.8 hemoglobin is 8 basic metabolic profile is normal renal profile is improving with creatinine down to 1.34, it was 1.7 yesterday Patient was evaluated on 12/18/2022, patient remains in the ICU, clinically improving, he is definitely more alert, communicating, does not seem to be in any distress, he is only on few liters nasal cannula. His labs are basically unremarkable, his hemoglobin is 8, basic metabolic profile is relatively normal except for creatinine of 1.33. Patient had negative fluid balance over the last 4 previous 24 hours. His cultures are positive for Proteus mirabilis and he is receiving treatment as per infectious disease on the case. Blood cultures also positive for Proteus mirabilis. No chest x-ray was done today. Reevaluated today on 12/19/2022, patient is now out of the ICU, he is on the cardiac floor, continues to do well, improving with antibiotics and diuretics. Remains on 2 L nasal cannula with O2 sats is 99% during the day, he is using BiPAP at night. Patient is on Unasyn as per infectious disease for his Proteus mirabilis infection in the urine , and in the blood W 79.8 hemoglobin 8.9 basic metabolic profile is normal l creatinine is significantly improved down to 1.14, BUN is 12, the report on his CT of abdomen and pelvis was reviewed, and that to be addressed by urology, patient did have some findings related to his bladder wall thickening. Pulmonary-mulligan the patient is actually doing better than expected Reevaluated today on 12/20/2022, patient continues to do well, responding well to treatment including diuretics and antibiotics. Remains on 2 L nasal cannula, and he does not seem to be in any form of distress. Chest x-ray today showed significant improvement in his interstitial edema. But not completely resolved. Labs today showed low potassium of 3.0 otherwise his labs are unremarkable BUN is 56 creatinine 0.97, patient was seen by cardiology and added Aldactone to his diuretics, patient has been on Lasix 40 mg IV push twice a day and metolazone 2.5 mg daily. Progress note dated 12/21/2022. The patient is seen today in room 354. He is currently on room air. He's not receiving any IV fluids. He did use BiPAP, at 12/6 and 30%. He used it for 5 hours last night. The patient is currently being evaluated for possible discharge, to one of the local nursing homes. The patient has no new complaints today. Labs today include a white count 10.6, hemoglobin 8.3, hematocrit 26, and a platelet count 232,000. Sodium 136, potassium 3.1, chlorides 94, CO2 29, BUN 57, and creatinine 1.34. 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 Chest x-ray from yesterday shows chronic changes with cardiomegaly, and a tiny right pleural effusion. Progress note dated 12/22/2022. This is a 72-year-old male seen in the room. He is currently on saline at 10 mL an hour, and receiving no supplemental oxygen. He did not use of BiPAP last night. The patient states that he's feeling much improved. He denies any significant shortness of breath, cough, wheezing, chest tightness, or phlegm production. Sodium 135, potassium 3.9, chlorides 97, CO2 24, BUN 55, and creatinine 1.21. Blood cultures were positive for Proteus mirabilis, and coagulase-negative staph. Objective - Vital Signs Vital signs: Vital Signs Temp 97.6 F 12/22/22 12:00 Pulse 106 H 12/22/22 12:00 Resp 24 12/22/22 12:00 BP 134/76 12/22/22 12:00 Pulse Ox 94 L 12/22/22 07:54 FiO2 30 12/22/22 05:05 Intake & Output 12/21/22 12/22/22 12/22/22 18:59 06:59 18:59 Intake Total 330 420 Output Total 1100 1000 650 Balance -770 -1000 -230 Weight 104.5 kg 106.5 kg 106.5 kg Intake: Oral 330 420 Output: Urine 1100 1000 650 Other: Voiding Method Indwelling Catheter Indwelling Catheter Indwelling Catheter # Bowel Movements 1 1 - Exam No acute distress, oriented 3. No respiratory distress. Currently on room air. HEENT examination is grossly unremarkable. Neck supple. Full range of motion. No adenopathy thyromegaly or neck vein distention. Cardiovascular examination reveals regular rhythm rate. S1-S2 normal. No S3 or S4. No discernible murmur noted. Heart rate 92 bpm. Lungs reveal clear breath sounds. Breath sounds are equal bilaterally. No adventitious lung sounds including wheezes rhonchi or crackles. Saturations are 95 % on room air. Abdomen soft bowel sounds are heard. No masses or tenderness. Extremities are intact. No cyanosis clubbing or edema. Skin is without rash or lesion. Neurologic examination is brief but nonfocal. - Labs CBC & Chem 7: 12/21/22 08:39 12/22/22 06:24 Labs: Abnormal Lab Results - Last 24 Hours (Table) 12/21/22 12/21/22 12/21/22 Range/Units 16:04 17:21 19:58 Sodium (137-145) mmol/L Chloride (98-107) mmol/L BUN (9-20) mg/dL Glucose (74-99) mg/dL POC Glucose (mg/dL) 215 H 204 H 200 H (70-110) mg/dL Calcium (8.4-10.2) mg/dL 12/22/22 12/22/22 12/22/22 Range/Units 05:30 06:24 11:08 Sodium 135 L (137-145) mmol/L Chloride 97 L (98-107) mmol/L BUN 55 H (9-20) mg/dL Glucose 110 H (74-99) mg/dL POC Glucose (mg/dL) 148 H 187 H (70-110) mg/dL Calcium 8.1 L (8.4-10.2) mg/dL Microbiology - Last 24 Hours (Table) 12/18/22 05:13 Blood Culture - Preliminary Blood Assessment and Plan Assessment: Acute hypoxemic respiratory failure secondary to systolic CHF exacerbation, improved. Gram-negative bacteremia, urosepsis, secondary to Proteus mirabilis. UTI/urosepsis, secondary to Proteus species. Septic shock, resolved. Acute kidney injury. Atrial fibrillation with RVR. History of ischemic cardiomyopathy, with an ejection fraction of 35-40%, valvular heart disease in the form of moderate mitral and tricuspid regurgitation, and moderate pulmonary hypertension. History of nonsustained ventricular tachycardia. CAD with prior PCI. Type 2 diabetes mellitus. Benign essential hypertension. Hyperlipidemia. Obesity. Plan: Plan dated 12/21/2022. The patient is seen today in room 354. The patient's currently on room air. The patient's not receiving any IV fluids. The patient didn't use BiPAP last night for 5 hours. The patient is being evaluated for possible discharge tomorrow the local nursing homes. The final decision has been made about discharge. We will continue to follow the patient, make recommendations along the way. Prognosis is guarded. Plan dated 12/22/2022. The patient is seen again in room 354. He is resting comfortably in bed. He's flat. No respiratory difficulty or distress. He is not requiring any supplemental oxygen. He is receiving saline at 10 mL an hour. He did not use the BiPAP device last night. Labs, x-rays, and medications are reviewed. The patient is hoping to be discharged soon, back to the local group home. We will continue to follow, and make recommendations along the way. His prognosis is guarded. Time with Patient: Less than 30
--- NOTE | 2022-12-22 12:42 | P.PN ---
Subjective Progress Note Date: 12/22/22 Pt is doing well today, still with significant LE edema. Dyspnea has improved. Gen: awake, alert HEENT: normocephalic, atraumatic, good hearing acuity, moist mucous membranes Resp: good air exchange, breathing comfortably with no accessory muscle use CVS: good distal perfusion x 4, GI: soft, NTTP, ND : no SPT, no CVAT, youssef catheter not present MSK: bilateral pitting edema, no clubbing Neuro: non-focal, moving all extremities Psych: cooperative, euthymic mood Hospital Course: Patient is a 72-year-old male with an extensive PMH including systolic CHF, A. fib on Eliquis, CAD status post stents, COPD, type II DM, hypertension, who presented to the emergency room for concerns for tachycardia from SNF. Patient is a poor historian and majority of information is obtained from the chart. In the ED, Tmax was 100.1F. He was tachypneic with RR of 32, HR in the 120s with BP as low as 93/68. EKG showed atrial flutter with RVR and Q waves. CBC showed WBC 16.7, Hg 10.9, MCV 106. INR was 1.4. ABG showed pH 7.41, pCO2 45. CMP shows K 5.2, BUN 58, Cr 1.54, glucose 240. Troponin was 0.023, 0.022. Lactic acid 1.7. BNP 97531. UA showed large blood and large LE. He was initially admitted for Dr. Kaufman to the [facility]. A-team was called for hypotension and patient was subsequently transferred to the ICU. Blood cultures grew gram negative bacilli. Urine culture was negative. He is continued on Rocephin while awaiting finalized cultures. 12/16 Patient is currently being treated for A-Fib with RVR and Urosepsis. Blood culture + GNB. UCx negative. Currently on Rocephin 2g IV QD. He is on Lasix 40 mg IV BID. He is on Amiodarone 200 mg PO QD. Amiodarone drip discontinued and weaned off Levophed. 12/17 Negative fluid balance of 890 cc over the past 24H. Cardiology recommends continued diuresis with metolazone while continuing ASA, Eliquis, low dose Metoprolol and Amiodarone while holding Entresto until BP improves. He remains off pressors with SBP in the high 90s and low 100s, HR improved to 110s. 12/18 Clinically improved. More alert and communicative. Negative fluid balance of 1089.09 cc over the past 24H. BCx finalized as proteus mirabilis. CT AP done yesterday shows bladder wall thickening along with rectal wall thickening, hepatosplenomegaly. ID recommends repeat UCx. 12/19 Rocephin switched to Unasyn 12/18 by ID for concerns of colitis causing Proteus bacteremia. Repeat BCx negative at 24H. Negative fluid balance of 1450 cc over the past 24H. 12/20 Repeat BCx growing staph epi / which is likely a contaminant. Negative fluid balance of 3865 cc over the past 24H. His BP has improved, thus Cardiology has added Aldactone and Entresto to his medication regimen. 12/21 Patient was seen and examined. Plans to continue Unasyn for now patient should be able to transition to Augmentin on discharge. CXR done yesterday shows improvement in pulmonary edema. Negative fluid balance of 3665 cc over the past 24H. Continued on Lasix IV and Metolazone. CBC shows Hg 8.3 and MCV 103.6. BMP shows Na 136, K 3.1, Cl 94, BUN 57, Cr 1.34, glucose 179, Ca 7.7. Mag sulfate 2g IV ordered for Mag of 1.5. KCl 40 meq IV ordered for K of 3.1. Plans to return to [facility] on discharge. 12/22 Patient doing clinically better. Still with significant LE edema. Discussed with cardiology who would like to continue IV lasix. Assessment/Plan: Septic shock secondary to Proteus bacteremia - Continue unasyn, day 6 of abx, total anticipated 10 day course, will finish with cefdinir on discharge - BCx NGTD in 72 hours from 12/18 - ID consult appreciated Acute on chronic systolic CHF exacerbation Atrial fibrillation with RVR Acute kidney injury on chronic kidney disease - Continue IV Lasix 40mg BID after discussion with cardiology - continue metolazone 2.5mg daily - continue spironolactone 25mg daily - continue Entresto - repeat BMP, Mg tomorrow AM; today Cr is 1.21, down from 1.34 Diabetes mellitus with hyperglycemia - BS 148-204 in last 24 hr - continue levemir 10U HS + SSI aspart Macrocytic anemia - obtain B12, folate Pt is Full Code DVT PPx on Apixaban Objective - Vital Signs Vital signs: Vital Signs Temp 97.6 F 12/22/22 12:00 Pulse 106 H 12/22/22 12:00 Resp 24 12/22/22 12:00 BP 134/76 12/22/22 12:00 Pulse Ox 94 L 12/22/22 07:54 FiO2 30 12/22/22 05:05 Intake & Output 12/21/22 12/22/22 12/22/22 18:59 06:59 18:59 Intake Total 330 420 Output Total 1100 1000 650 Balance -770 -1000 -230 Weight 104.5 kg 106.5 kg 106.5 kg Intake: Oral 330 420 Output: Urine 1100 1000 650 Other: Voiding Method Indwelling Catheter Indwelling Catheter Indwelling Catheter # Bowel Movements 1 1 - Labs CBC & Chem 7: 12/21/22 08:39 12/22/22 06:24 Labs: Abnormal Lab Results - Last 24 Hours (Table) 12/21/22 12/21/22 12/21/22 Range/Units 16:04 17:21 19:58 Sodium (137-145) mmol/L Chloride (98-107) mmol/L BUN (9-20) mg/dL Glucose (74-99) mg/dL POC Glucose (mg/dL) 215 H 204 H 200 H (70-110) mg/dL Calcium (8.4-10.2) mg/dL 12/22/22 12/22/22 12/22/22 Range/Units 05:30 06:24 11:08 Sodium 135 L (137-145) mmol/L Chloride 97 L (98-107) mmol/L BUN 55 H (9-20) mg/dL Glucose 110 H (74-99) mg/dL POC Glucose (mg/dL) 148 H 187 H (70-110) mg/dL Calcium 8.1 L (8.4-10.2) mg/dL Microbiology - Last 24 Hours (Table) 12/18/22 05:13 Blood Culture - Preliminary Blood
--- NOTE | 2022-12-22 13:43 | P.PN ---
Subjective HISTORY OF PRESENT ILLNESS: This is 72-year-old male who follows in the office with Dr. Piedra. Patient is admitted to the hospital secondary to sepsis and congestive heart failure. Patient examined this morning at the bedside. Patient currently denies chest pain or pressure. He reports improvement in his shortness of breath. He remains on IV Lasix. Telemetry reveals atrial fibrillation with heart rate around 110. 12/22/2022 Patient examined this morning at the bedside. Patient currently denies chest pain or pressure. He reports his shortness of breath has resolved. He continues to have lower extremity edema. He remains on IV Lasix. Telemetry reveals atrial fibrillation with a heart rate between [id number]. Blood pressure is stable. PHYSICAL EXAM: VITAL SIGNS: Reviewed. GENERAL: Well-developed in no acute distress. NECK: Supple. No JVD or thyromegaly LUNGS: Respirations even and unlabored. Lungs diminished bilaterally. HEART: Tachycardic. Irregular rate and rhythm. S1 and S2 heard. EXTREMITIES: Normal range of motion. No clubbing or cyanosis. Peripheral pulses intact. 1-2+ bilateral lower extremity edema ASSESSMENT: Sepsis Hypotension requiring vasopressors, resolved Acute on chronic heart failure with reduced ejection fraction Persistent atrial fibrillation with RVR Altered mental status History of coronary artery disease Ischemic cardiac myopathy, ejection fraction 35-40% History of hypertension History of ventricular tachycardia, status post AICD Diabetes PLAN: Continue current cardiac medications Continue IV Lasix 40 mg every 12 hours Daily weights, accurate I&O, and monitoring of kidney function Increase metoprolol succinate to 50 mg twice a day for optimal heart rate control Continue telemetry monitoring Further recommendations pending patient's course Nurse practitioner note has been reviewed by physician. Signing provider agrees with the documented findings, assessment, and plan of care. Objective - Vital Signs Vital signs: Vital Signs Temp 97.6 F 12/22/22 12:00 Pulse 106 H 12/22/22 12:00 Resp 24 12/22/22 12:00 BP 134/76 12/22/22 12:00 Pulse Ox 94 L 12/22/22 07:54 FiO2 30 12/22/22 05:05 Intake & Output 12/21/22 12/22/22 12/22/22 18:59 06:59 18:59 Intake Total 330 660 Output Total 1100 1000 650 Balance -770 -1000 10 Weight 104.5 kg 106.5 kg 106.5 kg Intake: Oral 330 660 Output: Urine 1100 1000 650 Other: Voiding Method Indwelling Catheter Indwelling Catheter Indwelling Catheter # Bowel Movements 1 1 - Labs CBC & Chem 7: 12/21/22 08:39 12/22/22 06:24 Labs: Abnormal Lab Results - Last 24 Hours (Table) 12/21/22 12/21/22 12/21/22 Range/Units 16:04 17:21 19:58 Sodium (137-145) mmol/L Chloride (98-107) mmol/L BUN (9-20) mg/dL Glucose (74-99) mg/dL POC Glucose (mg/dL) 215 H 204 H 200 H (70-110) mg/dL Calcium (8.4-10.2) mg/dL 12/22/22 12/22/22 12/22/22 Range/Units 05:30 06:24 11:08 Sodium 135 L (137-145) mmol/L Chloride 97 L (98-107) mmol/L BUN 55 H (9-20) mg/dL Glucose 110 H (74-99) mg/dL POC Glucose (mg/dL) 148 H 187 H (70-110) mg/dL Calcium 8.1 L (8.4-10.2) mg/dL Microbiology - Last 24 Hours (Table) 12/17/22 08:42 Blood Culture - Final Blood 12/18/22 05:13 Blood Culture - Preliminary Blood
--- NOTE | 2022-12-22 14:28 | P.PN ---
Subjective Progress Note Date: 12/21/22 Principal diagnosis: Proteus bacteremia possible abdominal source Patient is a 72-year-old male with a past medical history significant for diabetes mellitus hypertension hyperlipidemia atrial fibrillation and coronary disease patient presented to hospital for evaluation of weakness tachycardia. Patient did have evidence of Proteus bacteremia, did have positive UA with urine culture were negative. On today's evaluation that is 12/21/2022, the patient remains to be afebrile, the patient is breathing comfortably on room air without the need for supplemental oxygen and no shortness of breath, the patient denies having any chest pain or cough, patient denies nausea/vomiting /diarrhea and no abdominal pain, Patient did have a white count of 10.6, creatinine is 1.34, see the abdominal pelvis with severe bladder wall thickening possible ileal wall thickening and there was concern for possible rectal wall thickening and perirectal fat stranding Objective - Vital Signs Vital signs: Vital Signs Temp 97.6 F 12/21/22 20:19 Pulse 105 H 12/21/22 20:51 Resp 18 12/21/22 20:19 BP 120/82 12/21/22 20:19 Pulse Ox 96 12/21/22 20:19 FiO2 30 12/21/22 00:46 Intake & Output 12/21/22 12/21/22 12/22/22 06:59 18:59 06:59 Intake Total 330 Output Total 1225 1100 550 Balance -1225 -770 -550 Weight 108.5 kg 104.5 kg Intake: Oral 330 Output: Urine 1225 1100 550 Other: Voiding Method Indwelling Catheter Indwelling Catheter Indwelling Catheter # Bowel Movements 1 - Exam GENERAL DESCRIPTION: An elderly male lying in bed in no distress RESPIRATORY SYSTEM: Unlabored breathing , decreased breath sounds at bases HEART: S1 S2 regular rate and rhythm , ABDOMEN: Soft , no tenderness EXTREMITIES: No edema feet - Labs CBC & Chem 7: 12/21/22 08:39 12/22/22 06:24 Labs: Abnormal Lab Results - Last 24 Hours (Table) 12/21/22 12/21/22 12/21/22 Range/Units 06:06 08:39 08:39 RBC 2.50 L (4.30-5.90) m/uL Hgb 8.3 L (13.0-17.5) gm/dL Hct 26.0 L (39.0-53.0) % MCV 103.6 H (80.0-100.0) fL RDW 17.7 H (11.5-15.5) % Sodium 136 L (137-145) mmol/L Potassium 3.1 L (3.5-5.1) mmol/L Chloride 94 L (98-107) mmol/L BUN 57 H (9-20) mg/dL Creatinine 1.34 H (0.66-1.25) mg/dL Glucose 179 H (74-99) mg/dL POC Glucose (mg/dL) 152 H (70-110) mg/dL Calcium 7.7 L (8.4-10.2) mg/dL 12/21/22 12/21/22 12/21/22 Range/Units 11:08 16:04 17:21 RBC (4.30-5.90) m/uL Hgb (13.0-17.5) gm/dL Hct (39.0-53.0) % MCV (80.0-100.0) fL RDW (11.5-15.5) % Sodium (137-145) mmol/L Potassium (3.5-5.1) mmol/L Chloride (98-107) mmol/L BUN (9-20) mg/dL Creatinine (0.66-1.25) mg/dL Glucose (74-99) mg/dL POC Glucose (mg/dL) 202 H 215 H 204 H (70-110) mg/dL Calcium (8.4-10.2) mg/dL 12/21/22 Range/Units 19:58 RBC (4.30-5.90) m/uL Hgb (13.0-17.5) gm/dL Hct (39.0-53.0) % MCV (80.0-100.0) fL RDW (11.5-15.5) % Sodium (137-145) mmol/L Potassium (3.5-5.1) mmol/L Chloride (98-107) mmol/L BUN (9-20) mg/dL Creatinine (0.66-1.25) mg/dL Glucose (74-99) mg/dL POC Glucose (mg/dL) 200 H (70-110) mg/dL Calcium (8.4-10.2) mg/dL Microbiology - Last 24 Hours (Table) 12/18/22 05:13 Blood Culture - Preliminary Blood Assessment and Plan (1) Gram-negative bacteremia Current Visit: Yes Status: Acute Code(s): R78.81 - BACTEREMIA SNOMED Code(s): 043232378150 (2) Proctitis Current Visit: Yes Status: Acute Code(s): K62.89 - OTHER SPECIFIED DISEASES OF ANUS AND RECTUM SNOMED Code(s): 1183692 (3) UTI (urinary tract infection) Current Visit: Yes Status: Acute Code(s): N39.0 - URINARY TRACT INFECTION, SITE NOT SPECIFIED SNOMED Code(s): 43625394 Plan: Patient presented to hospital with sepsis in this patient with a fever tachycardia elevated white count source likely urinary as the patient has significantly positive UA and blood cultures are growing Proteus however urine culture has been reported negative , patient did have a CT of abdominal pelvis with evidence of cystitis and proctitis as well as ileal enteritis 2- repeat culture with staph epi , likely skin contaminant and no need for vancomycin 3-patient has shown clinical improvement will continue the patient on Unasyn concerning for possible abdominal source for this bacteremia Dictation was produced using [employer] dictation software. please excuse any grammatical, word or spelling errors. Time with Patient: Less than 30
--- NOTE | 2022-12-22 14:29 | P.PN ---
Subjective Progress Note Date: 12/22/22 Principal diagnosis: Proteus bacteremia possible abdominal source Patient is a 72-year-old male with a past medical history significant for diabetes mellitus hypertension hyperlipidemia atrial fibrillation and coronary disease patient presented to hospital for evaluation of weakness tachycardia. Patient did have evidence of Proteus bacteremia, did have positive UA with urine culture were negative. On today's evaluation that is 12/22/2022, the patient continues to be afebrile the patient is breathing comfortably on room air, the patient denies chest pain, shortness of breath or cough, patient denies abdominal pain, no nausea/vomiting and no diarrhea Patient did have a white count of 10.6 as of yesterday, creatinine is 1.21, see the abdominal pelvis with severe bladder wall thickening possible ileal wall thickening and there was concern for possible rectal wall thickening and perirectal fat stranding Objective - Vital Signs Vital signs: Vital Signs Temp 97.6 F 12/22/22 12:00 Pulse 106 H 12/22/22 12:00 Resp 24 12/22/22 12:00 BP 134/76 12/22/22 12:00 Pulse Ox 94 L 12/22/22 07:54 FiO2 30 12/22/22 05:05 Intake & Output 12/21/22 12/22/22 12/22/22 18:59 06:59 18:59 Intake Total 330 420 Output Total 1100 1000 650 Balance -770 -1000 -230 Weight 104.5 kg 106.5 kg 106.5 kg Intake: Oral 330 420 Output: Urine 1100 1000 650 Other: Voiding Method Indwelling Catheter Indwelling Catheter Indwelling Catheter # Bowel Movements 1 1 - Exam GENERAL DESCRIPTION: An elderly male lying in bed in no distress RESPIRATORY SYSTEM: Unlabored breathing , decreased breath sounds at bases HEART: S1 S2 regular rate and rhythm , ABDOMEN: Soft , no tenderness EXTREMITIES: No edema feet - Labs CBC & Chem 7: 12/21/22 08:39 12/22/22 06:24 Labs: Abnormal Lab Results - Last 24 Hours (Table) 12/21/22 12/21/22 12/21/22 Range/Units 16:04 17:21 19:58 Sodium (137-145) mmol/L Chloride (98-107) mmol/L BUN (9-20) mg/dL Glucose (74-99) mg/dL POC Glucose (mg/dL) 215 H 204 H 200 H (70-110) mg/dL Calcium (8.4-10.2) mg/dL 12/22/22 12/22/22 12/22/22 Range/Units 05:30 06:24 11:08 Sodium 135 L (137-145) mmol/L Chloride 97 L (98-107) mmol/L BUN 55 H (9-20) mg/dL Glucose 110 H (74-99) mg/dL POC Glucose (mg/dL) 148 H 187 H (70-110) mg/dL Calcium 8.1 L (8.4-10.2) mg/dL Microbiology - Last 24 Hours (Table) 12/18/22 05:13 Blood Culture - Preliminary Blood Assessment and Plan (1) Gram-negative bacteremia Current Visit: Yes Status: Acute Code(s): R78.81 - BACTEREMIA SNOMED Code(s): 300740250323 (2) Proctitis Current Visit: Yes Status: Acute Code(s): K62.89 - OTHER SPECIFIED DISEASES OF ANUS AND RECTUM SNOMED Code(s): 5501429 (3) UTI (urinary tract infection) Current Visit: Yes Status: Acute Code(s): N39.0 - URINARY TRACT INFECTION, SITE NOT SPECIFIED SNOMED Code(s): 27489033 Plan: Patient presented to hospital with sepsis in this patient with a fever tachycardia elevated white count source likely urinary as the patient has significantly positive UA and blood cultures are growing Proteus however urine culture has been reported negative , patient did have a CT of abdominal pelvis with evidence of cystitis and proctitis as well as ileal enteritis 2- repeat culture with staph epi , likely skin contaminant and no need for vancomycin 3-patient has shown clinical improvement will continue the patient on Unasyn with a plan to finish therapy with oral Augmentin when stable for discharge Dictation was produced using [employer] dictation software. please excuse any grammatical, word or spelling errors. Time with Patient: Less than 30
[2022-12-22 16:22] LABS: Glucose,Whole Blood 236 mg/dL (70-110)
[2022-12-22] MEDS: MULTIVITAMINS, THERA 1 EACH TAB PO SCH (17:44)
[2022-12-22 19:48] LABS: Glucose,Whole Blood 175 mg/dL (70-110)
[2022-12-22] MEDS: INSULIN DETEMIR (LEVEMIR) 100 UNIT/ML SYR SQ SCH (21:56)
[2022-12-22] MEDS: ATORVASTATIN 40 MG TAB PO SCH (22:05)
[2022-12-22] MEDS: SERTRALINE 50 MG TAB PO SCH (22:07)
[2022-12-22] MEDS: METOPROLOL SUCCINATE (ER) 50 MG TAB.ER.24H PO SCH (22:07)
[2022-12-22] MEDS: risperiDONE 0.5 MG TAB PO SCH (22:07)
[2022-12-23] MEDS: AMPICILLIN-SULBACTAM 3 GM in SODIUM CHLORIDE 0.9% 100 ML IVPB SCH ×2 (01:01→07:26)
[2022-12-23 05:44] LABS: Glucose,Whole Blood 140 mg/dL (70-110)
[2022-12-23] MEDS: CYCLOBENZAPRINE 5 MG TAB PO SCH ×2 (07:26→14:59)
[2022-12-23] MEDS: INSULIN ASPART (NovoLOG) 100 UNIT/ML VIAL SQ SCH ×2 (07:26→11:43)
[2022-12-23 08:15] VITALS: RESP 18
[2022-12-23] MEDS: LIDOCAINE 5% PATCH TOPICAL SCH (08:45)
[2022-12-23] MEDS: PANTOPRAZOLE 40 MG/10 ML VIAL IVP SCH (08:46)
[2022-12-23] MEDS: FUROSEMIDE 10 MG/ML 4 ML VIAL IV SCH (08:46)
[2022-12-23] MEDS: DAPAGLIFLOZIN PROPANEDIOL 10 MG TABLET PO SCH (08:47)
[2022-12-23] MEDS: SACUBITRIL/VALSARTAN 24 MG-26 MG TABLET PO SCH (08:47)
[2022-12-23] MEDS: SPIRONOLACTONE 25 MG TAB PO SCH (08:48)
[2022-12-23] MEDS: allopurinoL 100 MG TAB PO SCH (08:48)
[2022-12-23] MEDS: OXYBUTYNIN XL 5 MG TAB.ER.24 PO SCH (08:48)
[2022-12-23] MEDS: METOPROLOL SUCCINATE (ER) 50 MG TAB.ER.24H PO SCH (08:48)
[2022-12-23] MEDS: APIXABAN 5 MG TAB PO SCH (08:48)
[2022-12-23] MEDS: AMIODARONE 200 MG TAB PO SCH (08:48)
[2022-12-23] MEDS: THIAMINE 100 MG TAB PO SCH (08:48)
[2022-12-23] MEDS: metOLazone 2.5 MG TAB PO SCH (08:48)
[2022-12-23] MEDS: HYDROcodone/APAP 7.5-325MG 1 EACH TAB PO PRN (08:49)
[2022-12-23] MEDS: ACETAMINOPHEN TAB 500 MG TAB PO SCH ×2 (08:49→14:59)
[2022-12-23 09:08] LABS: African American GFR (CKD) 52 (>60 ml/min/1.73 sqM); Anion Gap 11 mmol/L; Blood Urea Nitrogen 53 mg/dL (9-20); Calcium 8.1 mg/dL (8.4-10.2); Carbon Dioxide 30 mmol/L (22-30); Chloride 95 mmol/L (98-107); Glucose 116 mg/dL (74-99); Magnesium 1.9 mg/dL (1.6-2.3); Non-African American GFR(CKD) 45 (>60 ml/min/1.73 sqM); Potassium 3.5 mmol/L (3.5-5.1); Sodium 136 mmol/L (137-145)
[2022-12-23] MEDS: BUDESONIDE 1 MG/2 ML NEBU INHALATION SCH (09:18)
[2022-12-23] MEDS: IPRATROPIUM-ALBUTEROL 3 ML NEB INHALATION SCH ×2 (09:18→15:54)
[2022-12-23] MEDS ORDERED: METOPROLOL SUCCINATE (ER) 25 MG TAB.ER.24H PO STA (10:16)
[2022-12-23 11:35] LABS: Glucose,Whole Blood 279 mg/dL (70-110)
--- NOTE | 2022-12-23 12:30 | P.PN ---
Subjective HISTORY OF PRESENT ILLNESS: This is 72-year-old male who follows in the office with Dr. Piedra. Patient is admitted to the hospital secondary to sepsis and congestive heart failure. Patient examined this morning at the bedside. Patient currently denies chest pain or pressure. He reports improvement in his shortness of breath. He remains on IV Lasix. Telemetry reveals atrial fibrillation with heart rate around 110. 12/22/2022 Patient examined this morning at the bedside. Patient currently denies chest pain or pressure. He reports his shortness of breath has resolved. He continues to have lower extremity edema. He remains on IV Lasix. Telemetry reveals atrial fibrillation with a heart rate between [id number]. Blood pressure is stable. 12/23/2022 Patient examined this morning at the bedside. Patient denies chest pain or pressure. He currently denies shortness of breath. He remains on IV Lasix. Telemetry reveals atrial fibrillation with a heart rate around 110. Creatinine increased today to 1.52. PHYSICAL EXAM: VITAL SIGNS: Reviewed. GENERAL: Well-developed in no acute distress. NECK: Supple. No JVD or thyromegaly LUNGS: Respirations even and unlabored. Lungs diminished bilaterally. HEART: Tachycardic. Irregular rate and rhythm. S1 and S2 heard. EXTREMITIES: Normal range of motion. No clubbing or cyanosis. Peripheral pulses intact. 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 Begin oral Lasix 40 mg twice a day Daily weights, accurate I&O, and monitoring of kidney function Increase metoprolol succinate to 75 mg twice a day for optimal heart rate control Continue telemetry monitoring Patient is stable for discharge today from a cardiac standpoint Further recommendations pending patient's course Nurse practitioner note has been reviewed by physician. Signing provider agrees with the documented findings, assessment, and plan of care. Objective - Vital Signs Vital signs: Vital Signs Temp 97 F L 12/23/22 12:00 Pulse 107 H 12/23/22 12:00 Resp 18 12/23/22 12:00 BP 96/58 12/23/22 12:00 Pulse Ox 94 L 12/23/22 09:18 FiO2 30 12/22/22 05:05 Intake & Output 12/22/22 12/23/22 12/23/22 18:59 06:59 18:59 Intake Total 960 200 Output Total 1310 1350 Balance -350 -1150 Weight 106.5 kg 107.5 kg Intake: Oral 960 200 Output: Urine 1310 1350 Other: Voiding Method Indwelling Catheter Indwelling Catheter Indwelling Catheter # Bowel Movements 1 1 - Labs CBC & Chem 7: 12/21/22 08:39 12/23/22 07:33 Labs: Abnormal Lab Results - Last 24 Hours (Table) 12/22/22 12/22/22 12/23/22 Range/Units 16:14 19:46 05:43 Sodium (137-145) mmol/L Chloride (98-107) mmol/L BUN (9-20) mg/dL Creatinine (0.66-1.25) mg/dL Glucose (74-99) mg/dL POC Glucose (mg/dL) 236 H 175 H 140 H (70-110) mg/dL Calcium (8.4-10.2) mg/dL 12/23/22 12/23/22 Range/Units 07:33 11:34 Sodium 136 L (137-145) mmol/L Chloride 95 L (98-107) mmol/L BUN 53 H (9-20) mg/dL Creatinine 1.52 H (0.66-1.25) mg/dL Glucose 116 H (74-99) mg/dL POC Glucose (mg/dL) 279 H (70-110) mg/dL Calcium 8.1 L (8.4-10.2) mg/dL Microbiology - Last 24 Hours (Table) 12/17/22 08:42 Blood Culture - Final Blood
--- NOTE | 2022-12-23 13:48 | P.PN ---
Subjective Progress Note Date: 12/23/22 Principal diagnosis: Atrial fibrillation, UTI. Reevaluated today on 12/17/2022, patient continues to do well, steadily improving. He is hemodynamically stable, not requiring any pressors at this point. At night he was on BiPAP 12/30% now he is on 2 L nasal cannula, blood cultures were positive for gram-negative bacilli, most likely source is his urine, turned out to be Proteus mirabilis and it is quite sensitive to all antibiotics, 2 blood cultures were noted to be positive for Proteus. Patient remains on ceftriaxone at 2 g daily. WBC count is 4.8 hemoglobin is 8 basic metabolic profile is normal renal profile is improving with creatinine down to 1.34, it was 1.7 yesterday Patient was evaluated on 12/18/2022, patient remains in the ICU, clinically improving, he is definitely more alert, communicating, does not seem to be in any distress, he is only on few liters nasal cannula. His labs are basically unremarkable, his hemoglobin is 8, basic metabolic profile is relatively normal except for creatinine of 1.33. Patient had negative fluid balance over the last 4 previous 24 hours. His cultures are positive for Proteus mirabilis and he is receiving treatment as per infectious disease on the case. Blood cultures also positive for Proteus mirabilis. No chest x-ray was done today. Reevaluated today on 12/19/2022, patient is now out of the ICU, he is on the cardiac floor, continues to do well, improving with antibiotics and diuretics. Remains on 2 L nasal cannula with O2 sats is 99% during the day, he is using BiPAP at night. Patient is on Unasyn as per infectious disease for his Proteus mirabilis infection in the urine , and in the blood W 79.8 hemoglobin 8.9 basic metabolic profile is normal l creatinine is significantly improved down to 1.14, BUN is 12, the report on his CT of abdomen and pelvis was reviewed, and that to be addressed by urology, patient did have some findings related to his bladder wall thickening. Pulmonary-mulligan the patient is actually doing better than expected Reevaluated today on 12/20/2022, patient continues to do well, responding well to treatment including diuretics and antibiotics. Remains on 2 L nasal cannula, and he does not seem to be in any form of distress. Chest x-ray today showed significant improvement in his interstitial edema. But not completely resolved. Labs today showed low potassium of 3.0 otherwise his labs are unremarkable BUN is 56 creatinine 0.97, patient was seen by cardiology and added Aldactone to his diuretics, patient has been on Lasix 40 mg IV push twice a day and metolazone 2.5 mg daily. Progress note dated 12/21/2022. The patient is seen today in room 354. He is currently on room air. He's not receiving any IV fluids. He did use BiPAP, at 12/6 and 30%. He used it for 5 hours last night. The patient is currently being evaluated for possible discharge, to one of the local nursing homes. The patient has no new complaints today. Labs today include a white count 10.6, hemoglobin 8.3, hematocrit 26, and a platelet count 232,000. Sodium 136, potassium 3.1, chlorides 94, CO2 29, BUN 57, and creatinine 1.34. 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 Chest x-ray from yesterday shows chronic changes with cardiomegaly, and a tiny right pleural effusion. Progress note dated 12/22/2022. This is a 72-year-old male seen in the room. He is currently on saline at 10 mL an hour, and receiving no supplemental oxygen. He did not use of BiPAP last night. The patient states that he's feeling much improved. He denies any significant shortness of breath, cough, wheezing, chest tightness, or phlegm production. Sodium 135, potassium 3.9, chlorides 97, CO2 24, BUN 55, and creatinine 1.21. Blood cultures were positive for Proteus mirabilis, and coagulase-negative staph. Progress note dated 12/23/2022. 72-year-old male seen in room 354. Currently, the patient's on room air. He is getting saline at 10 mL an hour. The patient states that he did not use of BiPAP last night. Clinically, his respiratory status is stable. Currently labs include a sodium 136, potassium 3.5, chlorides 95, CO2 30, BUN 53, and creatinine 1.52. Glucose 116. Calcium is 8.1. Blood cultures, revealed evidence of Proteus mirabilis, and a more recent blood culture is positive for coagulase-negative staph. Objective - Vital Signs Vital signs: Vital Signs Temp 97 F L 12/23/22 12:00 Pulse 107 H 12/23/22 12:00 Resp 18 12/23/22 12:00 BP 96/58 12/23/22 12:00 Pulse Ox 94 L 12/23/22 09:18 FiO2 30 12/22/22 05:05 Intake & Output 12/22/22 12/23/22 12/23/22 18:59 06:59 18:59 Intake Total 960 200 Output Total 1310 1350 Balance -350 -1150 Weight 106.5 kg 107.5 kg Intake: Oral 960 200 Output: Urine 1310 1350 Other: Voiding Method Indwelling Catheter Indwelling Catheter Indwelling Catheter # Bowel Movements 1 1 - Exam No acute distress, oriented 3. No respiratory distress. Currently on room air. HEENT examination is grossly unremarkable. Neck supple. Full range of motion. No adenopathy thyromegaly or neck vein distention. Cardiovascular examination reveals regular rhythm rate. S1-S2 normal. No S3 or S4. No discernible murmur noted. Heart rate 98 bpm. Lungs reveal clear breath sounds. Breath sounds are equal bilaterally. No adventitious lung sounds including wheezes rhonchi or crackles. Saturations are 95 % on room air. Abdomen soft bowel sounds are heard. No masses or tenderness. Extremities are intact. No cyanosis clubbing or edema. Skin is without rash or lesion. Neurologic examination is brief but nonfocal. - Labs CBC & Chem 7: 12/21/22 08:39 12/23/22 07:33 Labs: Abnormal Lab Results - Last 24 Hours (Table) 12/22/22 12/22/22 12/23/22 Range/Units 16:14 19:46 05:43 Sodium (137-145) mmol/L Chloride (98-107) mmol/L BUN (9-20) mg/dL Creatinine (0.66-1.25) mg/dL Glucose (74-99) mg/dL POC Glucose (mg/dL) 236 H 175 H 140 H (70-110) mg/dL Calcium (8.4-10.2) mg/dL 12/23/22 12/23/22 Range/Units 07:33 11:34 Sodium 136 L (137-145) mmol/L Chloride 95 L (98-107) mmol/L BUN 53 H (9-20) mg/dL Creatinine 1.52 H (0.66-1.25) mg/dL Glucose 116 H (74-99) mg/dL POC Glucose (mg/dL) 279 H (70-110) mg/dL Calcium 8.1 L (8.4-10.2) mg/dL Microbiology - Last 24 Hours (Table) 12/18/22 05:13 Blood Culture - Final Blood 12/17/22 08:42 Blood Culture - Final Blood Assessment and Plan Assessment: Acute hypoxemic respiratory failure secondary to systolic CHF exacerbation, improved. Gram-negative bacteremia, urosepsis, secondary to Proteus mirabilis. UTI/urosepsis, secondary to Proteus species. Septic shock, resolved. Acute kidney injury. Atrial fibrillation with RVR. History of ischemic cardiomyopathy, with an ejection fraction of 35-40%, valvular heart disease in the form of moderate mitral and tricuspid regurgitation, and moderate pulmonary hypertension. History of nonsustained ventricular tachycardia. CAD with prior PCI. Type 2 diabetes mellitus. Benign essential hypertension. Hyperlipidemia. Obesity. Plan: Plan dated 12/21/2022. The patient is seen today in room 354. The patient's currently on room air. The patient's not receiving any IV fluids. The patient didn't use BiPAP last night for 5 hours. The patient is being evaluated for possible discharge tomorrow the local nursing homes. The final decision has been made about discharge. We will continue to follow the patient, make recommendations along the way. Prognosis is guarded. Plan dated 12/22/2022. The patient is seen again in room 354. He is resting comfortably in bed. He's flat. No respiratory difficulty or distress. He is not requiring any supplemental oxygen. He is receiving saline at 10 mL an hour. He did not use the BiPAP device last night. Labs, x-rays, and medications are reviewed. The patient is hoping to be discharged soon, back to the local custodial. We will continue to follow, and make recommendations along the way. His prognosis is guarded. Plan dated 12/23/2022. The patient appears to be relatively stable. The patient's currently on room air. His cardiovascular status is stable. He is receiving saline at 10 mL an hour. Labs, x-rays, and medications are reviewed. The patient could be considered for possible discharge. We'll leave that up to the primary service. Currently, clearly, his pulmonary status is stable. He apparently did not use of BiPAP last night. He continues on Unasyn, as per infectious diseases. Time with Patient: Less than 30
--- NOTE | 2022-12-23 14:28 | P.DS ---
Providers Date of admission: 12/14/22 21:23 Expected date of discharge: 12/23/22 Attending physician: Giovanny Guerrero MD Consults: 12/14/22 21:23 Consult Physician Routine Consulting Provider: Aubrey Leo Consult Reason/Comments: a fib w rvr, chf Do you want consulting provider notified?: Yes 12/14/22 23:09 Consult Physician Stat Consulting Provider: Aly Aguilar Consult Reason/Comments: ICU management Do you want consulting provider notified?: Already Contacted 12/17/22 08:22 Consult Physician Routine Consulting Provider: Paul Arboleda Consult Reason/Comments: Gram negative bacteremia Do you want consulting provider notified?: Yes Primary care physician: [facility] Hospital Course: Pt is doing well today, still with significant LE edema. Dyspnea has improved. Hospital Course: Patient is a 72-year-old male with an extensive PMH including systolic CHF, A. fib on Eliquis, CAD status post stents, COPD, type II DM, hypertension, who presented to the emergency room for concerns for tachycardia from [facility]. Patient is a poor historian and majority of information is obtained from the chart. In the ED, Tmax was 100.1F. He was tachypneic with RR of 32, HR in the 120s with BP as low as 93/68. EKG showed atrial flutter with RVR and Q waves. CBC showed WBC 16.7, Hg 10.9, MCV 106. INR was 1.4. ABG showed pH 7.41, pCO2 45. CMP shows K 5.2, BUN 58, Cr 1.54, glucose 240. Troponin was 0.023, 0.022. Lactic acid 1.7. BNP 66229. UA showed large blood and large LE. He was initially admitted for Dr. Kaufman to the [facility]. A-team was called for hypotension and patient was subsequently transferred to the ICU. Blood cultures grew gram negative bacilli. Urine culture was negative. He is continued on Rocephin while awaiting finalized cultures. 12/16 Patient is currently being treated for A-Fib with RVR and Urosepsis. Blood culture + GNB. UCx negative. Currently on Rocephin 2g IV QD. He is on Lasix 40 mg IV BID. He is on Amiodarone 200 mg PO QD. Amiodarone drip discontinued and weaned off Levophed. 12/17 Negative fluid balance of 890 cc over the past 24H. Cardiology recommends continued diuresis with metolazone while continuing ASA, Eliquis, low dose Metoprolol and Amiodarone while holding Entresto until BP improves. He remains off pressors with SBP in the high 90s and low 100s, HR improved to 110s. 12/18 Clinically improved. More alert and communicative. Negative fluid balance of 1089.09 cc over the past 24H. BCx finalized as proteus mirabilis. CT AP done yesterday shows bladder wall thickening along with rectal wall thickening, hepatosplenomegaly. ID recommends repeat UCx. 12/19 Rocephin switched to Unasyn 12/18 by ID for concerns of colitis causing Proteus bacteremia. Repeat BCx negative at 24H. Negative fluid balance of 1450 cc over the past 24H. 12/20 Repeat BCx growing staph epi /2 which is likely a contaminant. Negative fluid balance of 3865 cc over the past 24H. His BP has improved, thus Cardiology has added Aldactone and Entresto to his medication regimen. 12/21 Patient was seen and examined. Plans to continue Unasyn for now patient should be able to transition to Augmentin on discharge. CXR done yesterday shows improvement in pulmonary edema. Negative fluid balance of 3665 cc over the past 24H. Continued on Lasix IV and Metolazone. CBC shows Hg 8.3 and MCV 103.6. BMP shows Na 136, K 3.1, Cl 94, BUN 57, Cr 1.34, glucose 179, Ca 7.7. Mag sulfate 2g IV ordered for Mag of 1.5. KCl 40 meq IV ordered for K of 3.1. Plans to return to [facility] on discharge. 12/22 Patient doing clinically better. Still with significant LE edema. Discussed with cardiology who would like to continue IV lasix. 12/23, transitioned to lasix PO, metoprolol uptitrated, cardiology cleared pt for discharge. Gen: awake, alert HEENT: normocephalic, atraumatic, good hearing acuity, moist mucous membranes Resp: good air exchange, breathing comfortably with no accessory muscle use CVS: good distal perfusion x 4, GI: soft, NTTP, ND : no SPT, no CVAT, youssef catheter not present MSK: bilateral pitting edema, no clubbing Neuro: non-focal, moving all extremities Psych: cooperative, euthymic mood Septic shock secondary to Proteus bacteremia - Continue unasyn, day 6 of abx, total anticipated 10 day course, will finish with cefdinir on discharge, prescribed Acute on chronic systolic CHF exacerbation Atrial fibrillation with RVR Acute kidney injury on chronic kidney disease - Transitioned to PO Lasix 40mg BID on discharge - continue metolazone 2.5mg daily on discharge - continue spironolactone 25mg daily on discharge - continue Entresto on discharge - Metoprolol uptitrated to 75mg BID Diabetes mellitus with hyperglycemia - continue levemir 10U HS + SSI aspart Macrocytic anemia - B12, folate are within normal limits 45 minutes were spent preparing this dsicharge on 12/23 Patient Condition at Discharge: Good Plan - Discharge Summary New Discharge Prescriptions: New Pantoprazole [Protonix] 40 mg PO DAILY #30 tab metOLazone [Zaroxolyn] 2.5 mg PO DAILY tab Spironolactone [Aldactone] 25 mg PO DAILY tab Dapagliflozin Propanediol [Farxiga] 10 mg PO DAILY tab Insulin Detemir (Levemir) [Levemir] 10 unit SQ HS each Cefdinir [Omnicef] 300 mg PO Q12HR #8 capsule Budesonide [Pulmicort] 1 mg INHALATION RT-BID ml Metoprolol Succinate (ER) [Toprol XL] 50 mg PO BID tab Continue Ferrous Sulfate [Iron] 325 mg PO DAILY@1700 risperiDONE [RisperDAL] 0.5 mg PO HS@2100 Sertraline HCl [Zoloft] 50 mg PO HS@2100 Apixaban [Eliquis] 5 mg PO BID@0800,1700 glipiZIDE [Glucotrol] 5 mg PO BID@0800,1700 Mv-Min/Folic/K1/Lycopen/Lutein [Centrum Silver Men Tablet] 1 tab PO DAILY@1700 Acetaminophen Tab [Tylenol] 1,000 mg PO TID@0800,1400,2200 Clopidogrel [Plavix] 75 mg PO DAILY@0800 Lidocaine 5% Patch [Lidoderm 5% Patch] 1 patch TOPICAL DAILY HYDROcodone/APAP 7.5-325MG [Arabi 7.5-325] 1 tab PO Q6HR PRN #21 tab PRN Reason: Pain Magnesium Hydroxide [Milk of Magnesia Concentrate] 7,200 mg PO Q48H PRN PRN Reason: Constipation bisacodyL [Dulcolax] 10 mg RECTAL DAILY PRN PRN Reason: Constipation Na Phos,M-B/Na Phos,Di-Ba [Fleet Adult] 133 ml RECTAL DAILY PRN PRN Reason: Constipation Cyclobenzaprine [Flexeril] 5 mg PO TID@0600,1400,2200 Sodium Bicarbonate Tab 650 mg PO BID@0800,1700 Furosemide [Lasix] 40 mg PO BID@0800,1400 Potassium Chloride ER [K-Dur 20] 20 meq PO DAILY@0800 oxyBUTYnin chloride [oxyBUTYnin chloride ER] 5 mg PO DAILY@0800 Cholecalciferol [Vitamin D3 (25 Mcg = 1000 Iu)] 50 mcg PO DAILY@0800 allopurinoL [Zyloprim] 100 mg PO DAILY@0800 Thiamine HCl [Vitamin B-1] 100 mg PO DAILY@0800 Amiodarone [Cordarone] 200 mg PO DAILY@0800 Sacubitril/Valsartan [Entresto 24 mg-26 mg Tablet] 1 tab PO BID@0800,1700 Atorvastatin [Lipitor] 40 mg PO HS@2099 Ergocalciferol (Vitamin D2) [Drisdol (50,000 Iu)] 1,250 mcg PO QMONTHLY Ipratropium-Albuterol Nebulize [Duoneb 0.5 mg-3 mg/3 ml Soln] 3 ml INHALATION RT-Q6H PRN PRN Reason: COPD Acetaminophen [Tylenol] 650 mg PO Q4H PRN PRN Reason: Fever And/ Or Pain Discontinued Loratadine [Claritin] 10 mg PO DAILY@0800 Metoprolol Succinate (ER) [Toprol XL] 150 mg PO BID@0800,1999 Discharge Medication List Ferrous Sulfate [Iron] 325 mg PO DAILY@1700 10/21/20 [History] Sertraline HCl [Zoloft] 50 mg PO HS@209910/21/20 [History] allopurinoL [Zyloprim] 100 mg PO DAILY@0800 10/21/20 [History] risperiDONE [RisperDAL] 0.5 mg PO HS@209910/21/20 [History] Apixaban [Eliquis] 5 mg PO BID@0800,1700 05/09/21 [History] Thiamine HCl [Vitamin B-1] 100 mg PO DAILY@0800 05/09/21 [History] Amiodarone [Cordarone] 200 mg PO DAILY@0800 02/06/22 [History] Mv-Min/Folic/K1/Lycopen/Lutein [Centrum Silver Men Tablet] 1 tab PO DAILY@1700 02/06/22 [History] glipiZIDE [Glucotrol] 5 mg PO BID@0800,1700 02/06/22 [History] Acetaminophen Tab [Tylenol] 1,000 mg PO TID@0800,1400,2200 10/01/22 [History] Sacubitril/Valsartan [Entresto 24 mg-26 mg Tablet] 1 tab PO BID@0800,1700 10/01/22 [History] Atorvastatin [Lipitor] 40 mg PO HS@2100 10/16/22 [History] Clopidogrel [Plavix] 75 mg PO DAILY@0810/16/22 [History] Ergocalciferol (Vitamin D2) [Drisdol (50,000 Iu)] 1,250 mcg PO QMONTHLY 10/17/22 [History] Lidocaine 5% Patch [Lidoderm 5% Patch] 1 patch TOPICAL DAILY 10/17/22 [History] HYDROcodone/APAP 7.5-325MG [Arabi 7.5-325] 1 tab PO Q6HR PRN #21 tab 10/23/22 [Rx] Acetaminophen [Tylenol] 650 mg PO Q4H PRN 12/14/22 [History] Cholecalciferol [Vitamin D3 (25 Mcg = 1000 Iu)] 50 mcg PO DAILY@0800 12/14/22 [History] Cyclobenzaprine [Flexeril] 5 mg PO TID@0600,1400,2200 12/14/22 [History] Furosemide [Lasix] 40 mg PO BID@0800,1400 12/14/22 [History] Ipratropium-Albuterol Nebulize [Duoneb 0.5 mg-3 mg/3 ml Soln] 3 ml INHALATION RT-Q6H PRN 12/14/22 [History] Magnesium Hydroxide [Milk of Magnesia Concentrate] 7,200 mg PO Q48H PRN 12/14/22 [History] Na Phos,M-B/Na Phos,Di-Ba [Fleet Adult] 133 ml RECTAL DAILY PRN 12/14/22 [History] Potassium Chloride ER [K-Dur 20] 20 meq PO DAILY@0800 12/14/22 [History] Sodium Bicarbonate Tab 650 mg PO BID@0800,1700 12/14/22 [History] bisacodyL [Dulcolax] 10 mg RECTAL DAILY PRN 12/14/22 [History] oxyBUTYnin chloride [oxyBUTYnin chloride ER] 5 mg PO DAILY@0800 12/14/22 [History] Budesonide [Pulmicort] 1 mg INHALATION RT-BID ml 12/22/22 [Rx] Cefdinir [Omnicef] 300 mg PO Q12HR #8 capsule 12/22/22 [Rx] Dapagliflozin Propanediol [Farxiga] 10 mg PO DAILY tab 12/22/22 [Rx] Insulin Detemir (Levemir) [Levemir] 10 unit SQ HS each 12/22/22 [Rx] Metoprolol Succinate (ER) [Toprol XL] 50 mg PO BID tab 12/22/22 [Rx] Pantoprazole [Protonix] 40 mg PO DAILY #30 tab 12/22/22 [Rx] Spironolactone [Aldactone] 25 mg PO DAILY tab 12/22/22 [Rx] metOLazone [Zaroxolyn] 2.5 mg PO DAILY tab 12/22/22 [Rx] Follow up Appointment(s)/Referral(s): None,Stated [REFERRING] - 1-2 days
[2022-12-23] MEDS ORDERED: FUROSEMIDE 40 MG TAB PO SCH (16:00)
[2022-12-23] MEDS ORDERED: AMPICILLIN-SULBACTAM 3 GM in SODIUM CHLORIDE 0.9% 100 ML IVPB SCH (16:00)
[2022-12-23 16:01] VITALS: BP 102/66; PULSE 116; TEMP 97.3
[2022-12-23] MEDS ORDERED: METOPROLOL SUCCINATE (ER) 50 MG TAB.ER.24H PO SCH (21:00)
--- NOTE | 2022-12-24 15:19 | CDI ---
Documentation Clarification Form Date: 12/24/2022 03:08:03 PM From: Mariah Mcghee Phone: Admit Date: 12/14/2022 09:23:00 PM Patient Name: RYANNE Guevara Visit Number: [id number] Discharge Date: 12/23/2022 05:10:00 PM ATTENTION: The Clinical Documentation Specialists (CDI) and [facility] Coding Staff appreciate your assistance in clarifying documentation. Please respond to the clarification below the line at the bottom and electronically sign. The CDI & [facility] Coding staff will review the response and follow-up if needed. Please note: Queries are made part of the Legal Health Record. If you have any questions, please contact the author of this message via ITS. Dr. Stephani Ibrahim Unspecified CKD is documented PER Dr. Koo Progress Note 12/16 and other Progress Notes. Additional clarification regarding the stage of CKD is requested. History/Risk Factors: 72yo M, Proteus sepsis w shock UTI, RAJAN on CKD, AHRF, DMII w hyperglycemia, A Fib, ICM, CAD, HTN, HLD, obesity Clinical Indicators: BUN: 58 Creatinine: 1.54 AA GFR: 61 NonAA GFR: 53 Treatment: Continue IV Lasix 40mg BID after discussion with cardiology; continue metolazone 2.5mg daily; continue spironolactone 25mg daily; continue Entresto; repeatBMP, Mg tomorrow AM; today Cr is 1.21, down from 1.34 Please clarify the stage of the CKD, if known: [ ] CKD Stage 2 (GFR 60-89) [x] CKD Stage 3a (GFR 45-59) [ ] Other, please specify [ ] Unable to determine (Template Last revised: April 2020) MTDD
== END 2022-12-23 17:10 | DRG 871 ==
LOC: EC 16:15 → 3SCARD 21:23 → 2SICU 23:12 → 3SCARD 12-18 12:01
PROVIDERS: ADMIT Student in an Organized Health Care Education/Training Program; ATTEND Student in an Organized Health Care Education/Training Program
PROC: 02HV33Z Insertion of Infusion Device into Superior Vena Cava, Percutaneous Approach (ICD-10-PCS; principal; 2022-12-14)
PROC: 06HY33Z Insertion of Infusion Device into Lower Vein, Percutaneous Approach (ICD-10-PCS; 2022-12-14)
PROC: 5A09357 Assistance with Respiratory Ventilation, Less than 24 Consecutive Hours, Continuous Positive Airway Pressure (ICD-10-PCS; 2022-12-15)
PROC: 3E043XZ Introduction of Vasopressor into Central Vein, Percutaneous Approach (ICD-10-PCS; 2022-12-15)
DX: A41.59 Other Gram-negative sepsis (principal); I50.23 Acute on chronic systolic (congestive) heart failure; J96.01 Acute respiratory failure with hypoxia; R57.0 Cardiogenic shock; R65.21 Severe sepsis with septic shock; N17.9 Acute kidney failure, unspecified; I47.20 Ventricular tachycardia, unspecified; I13.0 Hypertensive heart and chronic kidney disease with heart failure and stage 1 through stage 4 chronic kidney disease, or unspecified chronic kidney disease; I48.19 Other persistent atrial fibrillation; J44.1 Chronic obstructive pulmonary disease with (acute) exacerbation; I48.92 Unspecified atrial flutter; K52.1 Toxic gastroenteritis and colitis; Z16.29 Resistance to other single specified antibiotic; I27.22 Pulmonary hypertension due to left heart disease; E11.65 Type 2 diabetes mellitus with hyperglycemia; N18.31 Chronic kidney disease, stage 3a; R16.2 Hepatomegaly with splenomegaly, not elsewhere classified; I08.1 Rheumatic disorders of both mitral and tricuspid valves; E66.9 Obesity, unspecified; D53.9 Nutritional anemia, unspecified; E83.42 Hypomagnesemia; E87.6 Hypokalemia; K62.89 Other specified diseases of anus and rectum; E79.0 Hyperuricemia without signs of inflammatory arthritis and tophaceous disease; N30.90 Cystitis, unspecified without hematuria; T36.1X5A Adverse effect of cephalosporins and other beta-lactam antibiotics, initial encounter; E78.5 Hyperlipidemia, unspecified; N32.89 Other specified disorders of bladder; R41.89 Other symptoms and signs involving cognitive functions and awareness; I25.10 Atherosclerotic heart disease of native coronary artery without angina pectoris; I45.10 Unspecified right bundle-branch block; I25.5 Ischemic cardiomyopathy; B96.4 Proteus (mirabilis) (morganii) as the cause of diseases classified elsewhere; R41.0 Disorientation, unspecified; B95.7 Other staphylococcus as the cause of diseases classified elsewhere; Z68.36 Body mass index [BMI] 36.0-36.9, adult; Z87.891 Personal history of nicotine dependence; Z95.810 Presence of automatic (implantable) cardiac defibrillator; Z95.5 Presence of coronary angioplasty implant and graft; Z87.440 Personal history of urinary (tract) infections; Z86.16 Personal history of COVID-19; Z79.899 Other long term (current) drug therapy; Z79.84 Long term (current) use of oral hypoglycemic drugs; Z79.01 Long term (current) use of anticoagulants; Z79.02 Long term (current) use of antithrombotics/antiplatelets; E11.22 Type 2 diabetes mellitus with diabetic chronic kidney disease; Z87.39 Personal history of other diseases of the musculoskeletal system and connective tissue
CPT/HCPCS: 36415; 36600; 71045; 74176; 80048; 80053; 81001; 82607; 82746; 82805; 83605; 83735; 83880; 84484; 85025; 85027; 85610; 85652; 85730; 86140; 87040; 87077; 87086; 87186; 93005; 94640; 94660; 94760; 96365; 96366; 96368; 96375; 99291

== ENCOUNTER 2022-12-27 15:52 | Inpatient (IN) | payer OTHER ==
[2022-12-27 16:09] LABS: Glucose,Whole Blood 114 mg/dL (70-110)
--- NOTE | 2022-12-27 16:41 | ED ---
General Adult HPI - General Chief complaint: Dizziness Stated complaint: AFib Source: patient, EMS Mode of arrival: EMS Limitations: no limitations - History of Present Illness Initial comments: RYANNE is a 72-year-old gentleman who presents to the emergency Department today with complaint of dizziness. Patient reports that he feels dizzy and lightheaded anytime he sits up. Patient denies any recent illness, fevers, chills, nausea or vomiting. He reports that he has been eating and drinking well. His been taking his normal medications. Patient states he believes the dizziness as a side effect of medication. Patient specifically denies any chest pain or palpitations or shortness of breath. - Related Data Home Medications Medication Instructions Recorded Confirmed Ferrous Sulfate [Iron] 325 mg PO DAILY@0800 10/21/20 12/27/22 Sertraline HCl [Zoloft] 50 mg PO HS 10/21/20 12/27/22 allopurinoL [Zyloprim] 100 mg PO DAILY@0800 10/21/20 12/27/22 risperiDONE [RisperDAL] 0.5 mg PO HS 10/21/20 12/27/22 Apixaban [Eliquis] 5 mg PO BID@0800,1700 05/09/21 12/27/22 Thiamine HCl [Vitamin B-1] 100 mg PO DAILY@0800 05/09/21 12/27/22 Amiodarone [Cordarone] 200 mg PO DAILY@0800 02/06/22 12/27/22 glipiZIDE [Glucotrol] 5 mg PO BID@0800,1700 02/06/22 12/27/22 Acetaminophen Tab [Tylenol] 1,000 mg PO TID@0600,1400,2200 10/01/22 12/27/22 Sacubitril/Valsartan [Entresto 24 1 tab PO BID@0800,1700 10/01/22 12/27/22 mg-26 mg Tablet] Atorvastatin [Lipitor] 40 mg PO HS 10/16/22 12/27/22 Clopidogrel [Plavix] 75 mg PO DAILY@0800 10/16/22 12/27/22 Lidocaine 5% Patch [Lidoderm 5% 1 patch TRANSDERM DAILY 10/17/22 12/27/22 Patch] Acetaminophen [Tylenol] 650 mg PO Q4H PRN 12/14/22 12/27/22 Cholecalciferol [Vitamin D3 (25 50 mcg PO DAILY@0800 12/14/22 12/27/22 Mcg = 1000 Iu)] Cyclobenzaprine [Flexeril] 5 mg PO TID@0600,1400,2200 12/14/22 12/27/22 Furosemide [Lasix] 40 mg PO BID@0600,1400 12/14/22 12/27/22 Ipratropium-Albuterol Nebulize 3 ml INHALATION RT-Q6H PRN 12/14/22 12/27/22 [Duoneb 0.5 mg-3 mg/3 ml Soln] Magnesium Hydroxide [Milk of 7,200 mg PO Q48H PRN 12/14/22 12/27/22 Magnesia Concentrate] Na Phos,M-B/Na Phos,Di-Ba [Fleet 133 ml RECTAL DAILY PRN 12/14/22 12/27/22 Adult] Potassium Chloride ER [K-Dur 20] 20 meq PO BID@0800,1700 12/14/22 12/27/22 Sodium Bicarbonate Tab 650 mg PO BID@0800,1700 12/14/22 12/27/22 bisacodyL [Dulcolax] 10 mg RECTAL DAILY PRN 12/14/22 12/27/22 oxyBUTYnin chloride [oxyBUTYnin 5 mg PO DAILY@0800 12/14/22 12/27/22 chloride ER] Budesonide [Pulmicort] 1 mg INHALATION RT-BID@0800,1700 12/27/22 12/27/22 Ceravite Senior(With Lutein) 1 tab PO DAILY@1700 12/27/22 12/27/22 Dapagliflozin Propanediol [Farxiga] 10 mg PO DAILY@0800 12/27/22 12/27/22 Lactobacillus Acidophilus 1 cap PO DAILY@0800 12/27/22 12/27/22 [Acidophilus Probiotic] Loperamide [Imodium] 2 mg PO DIRECTED PRN 12/27/22 12/27/22 Metoprolol Succinate (ER) [Toprol 50 mg PO BID@0800,1700 12/27/22 12/27/22 XL] Pantoprazole [Protonix] 40 mg PO DAILY@0600 12/27/22 12/27/22 Spironolactone [Aldactone] 25 mg PO DAILY@0800 12/27/22 12/27/22 metOLazone [Zaroxolyn] 2.5 mg PO DAILY@0800 12/27/22 12/27/22 Previous Rx's Medication Instructions Recorded Insulin Detemir (Levemir) [Levemir] 10 unit SQ HS each 12/22/22 HYDROcodone/APAP 7.5-325MG [[place] 1 tab PO Q6HR PRN #12 tab 12/23/22 7.5-325] Allergies Allergy/AdvReac Type Severity Reaction Status Date / Time No Known Allergies Allergy Verified 12/27/22 21:11 Review of Systems ROS Statement: Those systems with pertinent positive or pertinent negative responses have been documented in the HPI. ROS Other: All systems not noted in ROS Statement are negative. Past Medical History Past Medical History: Atrial Fibrillation, Coronary Artery Disease (CAD), Heart Failure, Diabetes Mellitus, Hyperlipidemia, Hypertension Additional Past Medical History / Comment(s): See Dr Piedra's H&P. "Feet cold sometimes". Gout. Hx UTI and kidney infection with Covid. History of Any Multi-Drug Resistant Organisms: None Reported Past Surgical History: Heart Catheterization With Stent, Orthopedic Surgery, Pacemaker Additional Past Surgical History / Comment(s): 2 STENTS DEC 2020, left hip surgery X2. Past Anesthesia/Blood Transfusion Reactions: No Reported Reaction, Postoperative Nausea & Vomiting (PONV) Additional Past Anesthesia/Blood Transfusion Reaction / Comment(s): UNKNOWN FAMILY HX. Date of Last Stent Placement:: DEC 2020 Type of Cardiac Device: Unknown Device Placement Date:: Unknown Past Psychological History: Anxiety, Depression Smoking Status: Former smoker Past Alcohol Use History: None Reported Past Drug Use History: None Reported - Past Family History Mother Family Medical History: Cancer Brother(s) Family Medical History: Cancer Additional Family Medical History / Comment(s): Lung cancer. Father History Unknown: Yes Family Medical History: Hyperlipidemia General Exam Limitations: no limitations General appearance: alert Head exam: Present: atraumatic, normocephalic Eye exam: Present: PERRL ENT exam: Present: normal exam Respiratory exam: Absent: respiratory distress Cardiovascular Exam: Present: tachycardia, irregular rhythm GI/Abdominal exam: Present: soft. Absent: tenderness Rectal exam: Present: deferred exam: Present: other (youssef catheter in place) Extremities exam: Present: pedal edema. Absent: calf tenderness Neurological exam: Present: alert, oriented X3 Psychiatric exam: Present: normal affect Skin exam: Present: dry, intact Course Vital Signs 12/27/22 12/27/22 12/27/22 15:57 17:21 18:05 Temperature 98.8 F Pulse Rate 142 H 120 H 111 H Pulse Rate [ Plug Cutter ] Respiratory 18 18 18 Rate Blood Pressure 105/78 100/77 104/67 O2 Sat by Pulse 100 96 95 Oximetry 12/27/22 12/27/22 12/27/22 19:18 19:44 20:20 Temperature Pulse Rate 130 H 105 H 105 H Pulse Rate [ Plug Cutter ] Respiratory 18 18 18 Rate Blood Pressure 116/96 118/92 107/68 O2 Sat by Pulse 94 L 98 94 L Oximetry 12/27/22 22:09 Temperature Pulse Rate Pulse Rate [ 110 H Plug Cutter ] Respiratory Rate Blood Pressure O2 Sat by Pulse Oximetry EKG Findings - EKG Comments: EKG Findings:: EKG interpreted by B, EKG obtained due to tachycardia, EKG obtained at 1603 with a rate of 131 this is a wide complex irregular tachycardia consistent with the patient's history of atrial fibrillation with right bundle- branch block. No obvious ST elevations or depressions no evidence of acute ischemia or infarction. Medical Decision Making - Medical Decision Making Was pt. sent in by a medical professional or institution (ANU Klein, SCHOOL PHOTOGRAPHS DETAILER, urgent care, hospital, or alf...) When possible be specific @ -[No] Did you speak to anyone other than the patient for history (EMS, parent, family, police, friend...)? What history was obtained from this source @ -[No] Did you review nursing and triage notes (agree or disagree)? Why? @ -[I reviewed and agree with nursing and triage notes] Were old charts reviewed (outside hosp., previous admission, EMS record, old EKG, old radiological studies, urgent care reports/EKG's, alf records)? Report findings @ -Previous visits were reviewed Differential Diagnosis (chest pain, altered mental status, abdominal pain women, abdominal pain men, vaginal bleeding, weakness, fever, dyspnea, syncope, headache, dizziness, GI bleed, back pain, seizure, CVA, palpatations, mental health, musculoskeletal)? @ -Differential Dizziness: Benign paroxysmal positional Vertigo, Menieres disease, otitis media, acoustic neuroma, vertebrobasilar insufficiency, cerebellar stroke, encephalitis, hypovolemic, arrhythmia, coronary artery syndrome, anemia, this is not meant to be an all-inclusive list EKG interpreted by me (3pts min.). @ -[As above] X-rays interpreted by me (1pt min.). @ -CHF, pacemaker in place, previous spine surgery - no acute findings CT interpreted by me (1pt min.). @ -[None done] U/S interpreted by me (1pt. min.). @ -[None done] What testing was considered but not performed or refused? (CT, X-rays, U/S, labs)? Why? @ -[None] What meds were considered but not given or refused? Why? @ -[None] Did you discuss the management of the patient with other professionals (professionals i.e. , PA, SCHOOL PHOTOGRAPHS DETAILER, lab, RT, psych nurse, social service manager, tar kettle runner, teacher, navigating officer, watch caser)? Give summary @ -Discussed with admitting physician Was smoking cessation discussed for >3mins.? @ -[No] Was critical care preformed (if so, how long)? @ -[No] Were there social determinants of health that impacted care today? How? (Homelessness, low income, unemployed, alcoholism, drug addiction, transportation, low edu. Level, literacy, decrease access to med. care, nursing home, rehab)? @ -[No] Was there de-escalation of care discussed even if they declined (Discuss DNR or withdrawal of care, Hospice)? DNR status @ -[No] What co-morbidities impacted this encounter? (DM, HTN, Smoking, COPD, CAD, Cancer, CVA, ARF, Chemo, Hep., AIDS, mental health diagnosis, sleep apnea, morbid obesity)? @ -[None] Was patient admitted / discharged? Hospital course, mention meds given and route, prescriptions, significant lab abnormalities, going to OR and other pertinent info. @ -Admit Patient was seen and evaluated history is obtained from patient and review of medical record. Labs were obtained. Patient was noted to be tachycardic in A. fib with RVR. IV he'll and alcohol were given. Patient is to have a UTI and Rocephin was given. Given the patient's multiple comorbidities and the presence of A. fib with RVR requiring IV medications and recurrent UTI patient will be admitted. Dr. Kaufman accepts the admission Undiagnosed new problem with uncertain prognosis? @ -[No] Drug Therapy requiring intensive monitoring for toxicity (Heparin, Nitro, Insulin, Cardizem)? @ -[No] Were any procedures done? @ -[No] Diagnosis/symptom? @ -A. fib with RVR, recurrent catheter associated UTI Acute, or Chronic, or Acute on Chronic? @ -Acute on chronic Uncomplicated (without systemic symptoms) or Complicated (systemic symptoms)? @ -[default] Side effects of treatment? @ -[No] Exacerbation, Progression, or Severe Exacerbation? @ -[No] Poses a threat to life or bodily function? How? (Chest pain, USA, NC, pneumonia, PE, COPD, DKA, ARF, appy, cholecystitis, CVA, Diverticulitis, Homicidal, Suicidal, threat to staff... and all critical care pts) @ -Yes, concern for sepsis - Lab Data Result diagrams: 12/27/22 16:49 12/27/22 16:49 Lab Results 12/27/22 12/27/22 12/27/22 Range/Units 16:07 16:49 16:49 WBC 15.4 H (3.8-10.6) k/uL RBC 3.42 L (4.30-5.90) m/uL Hgb 11.1 L (13.0-17.5) gm/dL Hct 34.7 L (39.0-53.0) % MCV 101.3 H (80.0-100.0) fL MCH 32.5 (25.0-35.0) pg MCHC 32.1 (31.0-37.0) g/dL RDW 18.5 H (11.5-15.5) % Plt Count 284 (150-450) k/uL MPV 7.7 Neutrophils % 88 % Lymphocytes % 4 % Monocytes % 7 % Eosinophils % 1 % Basophils % 0 % Neutrophils # 13.5 H (1.3-7.7) k/uL Lymphocytes # 0.5 L (1.0-4.8) k/uL Monocytes # 1.1 H (0-1.0) k/uL Eosinophils # 0.2 (0-0.7) k/uL Basophils # 0.0 (0-0.2) k/uL Hypochromasia Moderate Poikilocytosis Moderate Anisocytosis Slight Macrocytosis Moderate PT 12.2 (10.0-12.5) sec INR 1.1 (<1.2) APTT 30.5 H (22.0-30.0) sec Sodium (137-145) mmol/L Potassium (3.5-5.1) mmol/L Chloride (98-107) mmol/L Carbon Dioxide (22-30) mmol/L Anion Gap mmol/L BUN (9-20) mg/dL Creatinine (0.66-1.25) mg/dL Est GFR (CKD-EPI)AfAm (>60 ml/min/1.73 sqM) Est GFR (CKD-EPI)NonAf (>60 ml/min/1.73 sqM) Glucose (74-99) mg/dL POC Glucose (mg/dL) 114 H (70-110) mg/dL POC Glu Probation Worker ID Richard Christie Plasma Lactic Acid Ilya (0.7-2.0) mmol/L Calcium (8.4-10.2) mg/dL Total Bilirubin (0.2-1.3) mg/dL AST (17-59) U/L ALT (4-49) U/L Alkaline Phosphatase (38-126) U/L Troponin I (0.000-0.034) ng/mL Total Protein (6.3-8.2) g/dL Albumin (3.5-5.0) g/dL TSH (0.465-4.680) mIU/L Free T4 (0.78-2.19) ng/dL Urine Color Urine Appearance (Clear) Urine pH (5.0-8.0) Ur Specific [place] (1.001-1.035) Urine Protein (Negative) Urine Glucose (UA) (Negative) Urine Ketones (Negative) Urine Blood (Negative) Urine Nitrite (Negative) Urine Bilirubin (Negative) Urine Urobilinogen (<2.0) mg/dL Ur Leukocyte Esterase (Negative) Urine RBC (0-5) /hpf Urine WBC (0-5) /hpf Urine WBC Clumps (None) /hpf Ur Squamous Epith Cells (0-4) /hpf Urine Bacteria (None) /hpf Hyaline Casts (0-2) /lpf Urine Mucus (None) /hpf 12/27/22 12/27/22 12/27/22 Range/Units 16:49 16:49 16:49 WBC (3.8-10.6) k/uL RBC (4.30-5.90) m/uL Hgb (13.0-17.5) gm/dL Hct (39.0-53.0) % MCV (80.0-100.0) fL MCH (25.0-35.0) pg MCHC (31.0-37.0) g/dL RDW (11.5-15.5) % Plt Count (150-450) k/uL MPV Neutrophils % % Lymphocytes % % Monocytes % % Eosinophils % % Basophils % % Neutrophils # (1.3-7.7) k/uL Lymphocytes # (1.0-4.8) k/uL Monocytes # (0-1.0) k/uL Eosinophils # (0-0.7) k/uL Basophils # (0-0.2) k/uL Hypochromasia Poikilocytosis Anisocytosis Macrocytosis PT (10.0-12.5) sec INR (<1.2) APTT (22.0-30.0) sec Sodium 135 L (137-145) mmol/L Potassium 3.7 (3.5-5.1) mmol/L Chloride 100 (98-107) mmol/L Carbon Dioxide 21 L (22-30) mmol/L Anion Gap 14 mmol/L BUN 40 H (9-20) mg/dL Creatinine 1.34 H (0.66-1.25) mg/dL Est GFR (CKD-EPI)AfAm 61 (>60 ml/min/1.73 sqM) Est GFR (CKD-EPI)NonAf 53 (>60 ml/min/1.73 sqM) Glucose 95 (74-99) mg/dL POC Glucose (mg/dL) (70-110) mg/dL POC Glu Probation Worker ID Plasma Lactic Acid Ilya 1.6 (0.7-2.0) mmol/L Calcium 8.5 (8.4-10.2) mg/dL Total Bilirubin 0.5 (0.2-1.3) mg/dL AST 21 (17-59) U/L ALT 21 (4-49) U/L Alkaline Phosphatase 69 (38-126) U/L Troponin I (0.000-0.034) ng/mL Total Protein 8.2 (6.3-8.2) g/dL Albumin 3.1 L (3.5-5.0) g/dL TSH 4.990 H (0.465-4.680) mIU/L Free T4 1.23 (0.78-2.19) ng/dL Urine Color Yellow Urine Appearance Cloudy (Clear) Urine pH 6.0 (5.0-8.0) Ur Specific [place] 1.016 (1.001-1.035) Urine Protein 1+ H (Negative) Urine Glucose (UA) Trace H (Negative) Urine Ketones Negative (Negative) Urine Blood Trace H (Negative) Urine Nitrite Negative (Negative) Urine Bilirubin Negative (Negative) Urine Urobilinogen <2.0 (<2.0) mg/dL Ur Leukocyte Esterase Large H (Negative) Urine RBC 8 H (0-5) /hpf Urine WBC >182 H (0-5) /hpf Urine WBC Clumps Occasional H (None) /hpf Ur Squamous Epith Cells 1 (0-4) /hpf Urine Bacteria Rare H (None) /hpf Hyaline Casts 12 H (0-2) /lpf Urine Mucus Rare H (None) /hpf 12/27/22 Range/Units 16:49 WBC (3.8-10.6) k/uL RBC (4.30-5.90) m/uL Hgb (13.0-17.5) gm/dL Hct (39.0-53.0) % MCV (80.0-100.0) fL MCH (25.0-35.0) pg MCHC (31.0-37.0) g/dL RDW (11.5-15.5) % Plt Count (150-450) k/uL MPV Neutrophils % % Lymphocytes % % Monocytes % % Eosinophils % % Basophils % % Neutrophils # (1.3-7.7) k/uL Lymphocytes # (1.0-4.8) k/uL Monocytes # (0-1.0) k/uL Eosinophils # (0-0.7) k/uL Basophils # (0-0.2) k/uL Hypochromasia Poikilocytosis Anisocytosis Macrocytosis PT (10.0-12.5) sec INR (<1.2) APTT (22.0-30.0) sec Sodium (137-145) mmol/L Potassium (3.5-5.1) mmol/L Chloride (98-107) mmol/L Carbon Dioxide (22-30) mmol/L Anion Gap mmol/L BUN (9-20) mg/dL Creatinine (0.66-1.25) mg/dL Est GFR (CKD-EPI)AfAm (>60 ml/min/1.73 sqM) Est GFR (CKD-EPI)NonAf (>60 ml/min/1.73 sqM) Glucose (74-99) mg/dL POC Glucose (mg/dL) (70-110) mg/dL POC Glu Probation Worker ID Plasma Lactic Acid Ilya (0.7-2.0) mmol/L Calcium (8.4-10.2) mg/dL Total Bilirubin (0.2-1.3) mg/dL AST (17-59) U/L ALT (4-49) U/L Alkaline Phosphatase (38-126) U/L Troponin I <0.012 (0.000-0.034) ng/mL Total Protein (6.3-8.2) g/dL Albumin (3.5-5.0) g/dL TSH (0.465-4.680) mIU/L Free T4 (0.78-2.19) ng/dL Urine Color Urine Appearance (Clear) Urine pH (5.0-8.0) Ur Specific [place] (1.001-1.035) Urine Protein (Negative) Urine Glucose (UA) (Negative) Urine Ketones (Negative) Urine Blood (Negative) Urine Nitrite (Negative) Urine Bilirubin (Negative) Urine Urobilinogen (<2.0) mg/dL Ur Leukocyte Esterase (Negative) Urine RBC (0-5) /hpf Urine WBC (0-5) /hpf Urine WBC Clumps (None) /hpf Ur Squamous Epith Cells (0-4) /hpf Urine Bacteria (None) /hpf Hyaline Casts (0-2) /lpf Urine Mucus (None) /hpf Disposition Clinical Impression: Atrial fibrillation with RVR, UTI (urinary tract infection) due to urinary indwelling catheter, Dehydration Disposition: ADMITTED IP TO THIS HOSP Condition: Serious Is patient prescribed a controlled substance at d/c from ED?: No
[2022-12-27 17:08] LABS: Anisocytosis Slight; Basophils % (A) 0 %; Eosinophils # (A) 0.2 k/uL (0-0.7); Eosinophils % (A) 1 %; HCT 34.7 % (39.0-53.0); HGB 11.1 gm/dL (13.0-17.5); Hypochromasia Moderate; Lymphocytes # (A) 0.5 k/uL (1.0-4.8); Lymphocytes % (A) 4 %; MCH 32.5 pg (25.0-35.0); MCHC 32.1 g/dL (31.0-37.0); MCV 101.3 fL (80.0-100.0); Macrocytosis Moderate; Mean Platelet Volume 7.7; Monocytes # (A) 1.1 k/uL (0-1.0); Monocytes % (A) 7 %; Neutrophils # (A) 13.5 k/uL (1.3-7.7); Neutrophils % (A) 88 %; Platelet Count 284 k/uL (150-450); Poikilocytosis Moderate; RBC 3.42 m/uL (4.30-5.90); RDW 18.5 % (11.5-15.5); WBC 15.4 k/uL (3.8-10.6)
[2022-12-27 17:14] LABS: Appearance,Urine Cloudy (Clear); Bacteria,Urine Rare /hpf; Bilirubin,Urine Negative (Negative); Blood,Urine Trace (Negative); Color,Urine Yellow; Glucose,Urine (UA) Trace (Negative); Hyaline Casts,Urine 12 /lpf (0-2); Ketones,Urine Negative (Negative); Leukocyte Esterase,Urine Large (Negative); Mucus,Urine Rare /hpf; Nitrite,Urine Negative (Negative); Protein,Urine 1+ (Negative); RBC,Urine 8 /hpf (0-5); Specific Gravity,Urine 1.016 (1.001-1.035); Squamous Epithelial Cell,Urine 1 /hpf (0-4); Urobilinogen,Urine <2.0 mg/dL (<2.0); WBC,Urine >182 /hpf (0-5)
[2022-12-27 17:17] LABS: INR 1.1 (<1.2); Partial Thromboplastin Time 30.5 sec (22.0-30.0); Prothrombin Time 12.2 sec (10.0-12.5)
--- NOTE | 2022-12-27 17:31 | XR ---
EXAMINATION TYPE: XR chest 1V portable DATE OF EXAM: 12/27/2022 COMPARISON: 12/20/2022 HISTORY: Fever TECHNIQUE: Single frontal view of the chest is obtained. FINDINGS: There is a 2-lead cardiac pacemaker and mild to moderate cardiomegaly. The pulmonary vasculature appe ars mildly congested and there is a suggestion of mild interstitial edema. There is no pleural effusion or pneumothorax. The osseous structures are intact although there is evidence for metallic spinal fusion. IMPRESSION: Findings possibly indicate mild CHF. Clinical correlation short-term follow-up to [facility] is recommended.
[2022-12-27 18:24] LABS: ALT 21 U/L (4-49); AST 21 U/L (17-59); African American GFR (CKD) 61 (>60 ml/min/1.73 sqM); Albumin 3.1 g/dL (3.5-5.0); Alkaline Phosphatase 69 U/L (38-126); Anion Gap 14 mmol/L; Blood Urea Nitrogen 40 mg/dL (9-20); Calcium 8.5 mg/dL (8.4-10.2); Carbon Dioxide 21 mmol/L (22-30); Chloride 100 mmol/L (98-107); Glucose 95 mg/dL (74-99); Non-African American GFR(CKD) 53 (>60 ml/min/1.73 sqM); Potassium 3.7 mmol/L (3.5-5.1); Sodium 135 mmol/L (137-145); Total Bilirubin 0.5 mg/dL (0.2-1.3); Total Protein 8.2 g/dL (6.3-8.2)
[2022-12-27] MEDS ORDERED: SODIUM CHLORIDE 0.9% 500 ML 500 ML IV ONE (18:36)
[2022-12-27] MEDS ORDERED: cefTRIAXone IN SWFI 1,000 MG/10 ML SYRINGE IVP STA (18:36)
[2022-12-27] MEDS ORDERED: METOPROLOL SUCCINATE (ER) 50 MG TAB.ER.24H PO STA (19:20)
[2022-12-27] MEDS ORDERED: METOPROLOL TARTRATE 5 MG/5 ML VIAL IVP STA (19:20)
[2022-12-27] MEDS: SODIUM CHLORIDE 0.9% 1,000 ML IV SCH (19:22)
[2022-12-27 19:31] LABS: T4, Free (Free Thyroxine) 1.23 ng/dL (0.78-2.19)
[2022-12-27] MEDS ORDERED: NALOXONE 0.4 MG/ML 1 ML VIAL IV PRN (19:44)
[2022-12-28 06:52] LABS: Glucose,Whole Blood 101 mg/dL (70-110)
[2022-12-28] MEDS ORDERED: MAGNESIUM HYDROXIDE 2,400 MG/30 ML CUP PO PRN (06:54)
[2022-12-28] MEDS ORDERED: ACETAMINOPHEN TAB 325 MG TAB PO PRN (06:54)
[2022-12-28] MEDS: INSULIN ASPART (NovoLOG) 100 UNIT/ML VIAL SQ SCH ×4 (06:54→22:00)
[2022-12-28] MEDS ORDERED: bisacodyL 10 MG SUPP RECTAL PRN (06:54)
[2022-12-28] MEDS ORDERED: LOPERAMIDE 2 MG CAP PO PRN (09:00)
[2022-12-28] MEDS: AMIODARONE 200 MG TAB PO SCH (09:48)
[2022-12-28] MEDS: CHOLECALCIFEROL 25 MCG (1000 IU) TABLET PO SCH (09:48)
[2022-12-28] MEDS: CLOPIDOGREL 75 MG TAB PO SCH (09:48)
[2022-12-28] MEDS: APIXABAN 5 MG TAB PO SCH ×2 (09:48→16:29)
[2022-12-28] MEDS: allopurinoL 100 MG TAB PO SCH (09:48)
[2022-12-28] MEDS: metOLazone 2.5 MG TAB PO SCH (09:49)
[2022-12-28] MEDS: LACTOBACILLUS ACIDOPHILUS/PECT 1 EACH CAPSULE PO SCH ×2 (09:49→09:51)
[2022-12-28] MEDS: FERROUS SULFATE 325 MG TAB PO SCH (09:49)
[2022-12-28] MEDS: DAPAGLIFLOZIN PROPANEDIOL 10 MG TABLET PO SCH (09:49)
[2022-12-28] MEDS: METOPROLOL SUCCINATE (ER) 50 MG TAB.ER.24H PO SCH ×2 (09:51→16:29)
[2022-12-28] MEDS: OXYBUTYNIN XL 5 MG TAB.ER.24 PO SCH (09:52)
[2022-12-28] MEDS: SODIUM BICARBONATE TAB 650 MG TAB PO SCH ×2 (09:52→16:29)
[2022-12-28] MEDS: THIAMINE 100 MG TAB PO SCH (09:52)
[2022-12-28] MEDS: SPIRONOLACTONE 25 MG TAB PO SCH (09:52)
[2022-12-28] MEDS: SACUBITRIL/VALSARTAN 24 MG-26 MG TABLET PO SCH ×2 (09:52→22:01)
[2022-12-28] MEDS: LIDOCAINE 5% PATCH TOPICAL SCH (10:02)
[2022-12-28] MEDS: SODIUM CHLORIDE 0.9% 1,000 ML IV SCH (10:05)
[2022-12-28] MEDS: IPRATROPIUM-ALBUTEROL 3 ML NEB INHALATION PRN ×2 (11:26→21:07)
[2022-12-28] MEDS: BUDESONIDE 1 MG/2 ML NEBU INHALATION SCH ×2 (11:41→21:08)
[2022-12-28 13:26] LABS: Glucose,Whole Blood 259 mg/dL (70-110)
[2022-12-28 14:20] LABS: Anisocytosis Slight; Basophils % (A) 0 %; Eosinophils # (A) 0.2 k/uL (0-0.7); Eosinophils % (A) 2 %; HCT 25.2 % (39.0-53.0); Hypochromasia Moderate; Lymphocytes # (A) 0.8 k/uL (1.0-4.8); Lymphocytes % (A) 8 %; MCH 32.9 pg (25.0-35.0); MCHC 32.4 g/dL (31.0-37.0); MCV 101.6 fL (80.0-100.0); Macrocytosis Moderate; Mean Platelet Volume 8.2; Monocytes # (A) 0.6 k/uL (0-1.0); Monocytes % (A) 6 %; Neutrophils # (A) 8.4 k/uL (1.3-7.7); Neutrophils % (A) 83 %; Platelet Count 305 k/uL (150-450); Poikilocytosis Moderate; RBC 2.48 m/uL (4.30-5.90); RDW 18.5 % (11.5-15.5); WBC 10.1 k/uL (3.8-10.6)
--- NOTE | 2022-12-28 14:35 | P.HPIM ---
History of Present Illness H&P Date: 12/28/22 Patient is a 72-year-old male with an extensive past medical history including systolic CHF, A. fib on Eliquis, CAD status post stents, COPD, type 2 diabetes, hypertension who presented from rehab with atrial fibrillation with RVR and hypotension. Patient is a poor historian. I spoke directly with PCP was unaware that the patient was admitted to the hospital. Per EMS report, patient was noted to be in A. fib RVR and hypertensive systolics of 90s, and was sent directly to to the ER, patient himself complains that he's been having frequent diarrhea and some lower abdominal cramping. He denies any chest pain, shortness of breath, palpitations, nausea, vomiting, or urinary complaints. Patient also has an indwelling Jacobs catheter. In the ED, temperature was 98.8, pulse 142, blood pressure 105/78, respiratory rate 18, saturating at 90% on room air. EKG independently interpreted shows right bundle branch block, and atrial fibrillation with RVR. Chest x-ray independently interpreted, shows mild interstitial opacities. WBC 15.4, hemoglobin 11.1, sodium 135, bicarb 21, anion gap 14, BUN 40, creatinine 1.34 at baseline, glucose 114, troponin negative, TSH mildly elevated at 4.9, urinalysis shows large leukocyte esterase, negative nitrates. Patient admitted for atrial fibrillation with RVR, possible UTI started on Rocephin. Patient was initially admitted to different hospitalist service. Pertinent positives and negatives as discussed in HPI, a complete review of systems was performed and all other systems are negative. Patient seen and examined at bedside. Vital signs reviewed General: nontoxic, no distress, appears at stated age Derm: warm, dry Head: atraumatic, normocephalic, symmetric Eyes: EOMI, no lid lag, anicteric sclera, pupils equal round reactive to light ENT: Nose and ears atraumatic Neck: No thyromegaly, supple Mouth: no lip lesion, mucus membranes moist Cardiovascular: S1S2 reg, no murmur, no edema Lungs: clear to auscultation bilateral, no rhonchi, no rales, no wheeze, no accessory muscle use Abdominal: soft, nontender to palpation, no guarding, no appreciable organomegaly Ext: no gross muscle atrophy, muscle strength muscle strength 5 out of 5 in all 4 extremities, no contractures Neuro: CN II-XII grossly intact Psych: Alert, oriented, appropriate affect Assessment/Plan: Active: Atrial fibrillation with RVR Sepsis, source unclear Diarrhea Suspected UTI, indwelling Jacobs present on admission Recent Proteus bacteremia status post antibiotics Type 2 diabetes Elevated TSH, normal free T4 -Repeat CBC and CMP pending -Continue home amiodarone, metoprolol 50 twice a day -Heart rate improved -Blood cultures pending -C. diff pending -Repeat UA with cultures -Exchange Jacobs catheter -Continue home Levemir, sliding scale insulin, holding glipizide -Continue telemetry Chronic: Chronic systolic CHF Chronic kidney disease Chronic macrocytic anemia The patient is admitted with an anticipated greater than 2 midnight stay as inpatient status for evaluation of atrial fibrillation with RVR. Surrogate decision-maker: Guardian CODE STATUS: Full code DVT prophylaxis: Eliquis Anticipated discharge date: Pending clinical course Anticipated discharge place: Pending clinical course A total of 55 minutes was spent on the care of this complex patient more than 50% of the time was spent in counseling and care coordination. Past Medical History Past Medical History: Atrial Fibrillation, Coronary Artery Disease (CAD), Heart Failure, Diabetes Mellitus, Hyperlipidemia, Hypertension Additional Past Medical History / Comment(s): See Dr Piedra's H&P. "Feet cold sometimes". Gout. Hx UTI and kidney infection with Covid. History of Any Multi-Drug Resistant Organisms: None Reported Past Surgical History: Heart Catheterization With Stent, Orthopedic Surgery, Pacemaker Additional Past Surgical History / Comment(s): 2 STENTS DEC 2020, left hip surgery X2. Past Anesthesia/Blood Transfusion Reactions: No Reported Reaction, Postoperative Nausea & Vomiting (PONV) Additional Past Anesthesia/Blood Transfusion Reaction / Comment(s): UNKNOWN FAMILY HX. Date of Last Stent Placement:: DEC 2020 Type of Cardiac Device: Unknown Device Placement Date:: Unknown Past Psychological History: Anxiety, Depression Smoking Status: Former smoker Past Alcohol Use History: None Reported Past Drug Use History: None Reported - Past Family History Mother Family Medical History: Cancer Brother(s) Family Medical History: Cancer Additional Family Medical History / Comment(s): Lung cancer. Father History Unknown: Yes Family Medical History: Hyperlipidemia Medications and Allergies Home Medications Medication Instructions Recorded Confirmed Type Ferrous Sulfate [Iron] 325 mg PO DAILY@0800 10/21/20 12/27/22 History Sertraline HCl [Zoloft] 50 mg PO HS 10/21/20 12/27/22 History allopurinoL [Zyloprim] 100 mg PO DAILY@0800 10/21/20 12/27/22 History risperiDONE [RisperDAL] 0.5 mg PO HS 10/21/20 12/27/22 History Apixaban [Eliquis] 5 mg PO BID@0800,1700 05/09/21 12/27/22 History Thiamine HCl [Vitamin B-1] 100 mg PO DAILY@0800 05/09/21 12/27/22 History Amiodarone [Cordarone] 200 mg PO DAILY@0800 02/06/22 12/27/22 History glipiZIDE [Glucotrol] 5 mg PO BID@0800,1700 02/06/22 12/27/22 History Acetaminophen Tab [Tylenol] 1,000 mg PO TID@0600,1400,2200 10/01/22 12/27/22 History Sacubitril/Valsartan [Entresto 24 1 tab PO BID@0800,1700 10/01/22 12/27/22 History mg-26 mg Tablet] Atorvastatin [Lipitor] 40 mg PO HS 10/16/22 12/27/22 History Clopidogrel [Plavix] 75 mg PO DAILY@0800 10/16/22 12/27/22 History Lidocaine 5% Patch [Lidoderm 5% 1 patch TRANSDERM DAILY 10/17/22 12/27/22 History Patch] Acetaminophen [Tylenol] 650 mg PO Q4H PRN 12/14/22 12/27/22 History Cholecalciferol [Vitamin D3 (25 50 mcg PO DAILY@0800 12/14/22 12/27/22 History Mcg = 1000 Iu)] Cyclobenzaprine [Flexeril] 5 mg PO TID@0600,1400,2200 12/14/22 12/27/22 History Furosemide [Lasix] 40 mg PO BID@0600,1400 12/14/22 12/27/22 History Ipratropium-Albuterol Nebulize 3 ml INHALATION RT-Q6H PRN 12/14/22 12/27/22 History [Duoneb 0.5 mg-3 mg/3 ml Soln] Magnesium Hydroxide [Milk of 7,200 mg PO Q48H PRN 12/14/22 12/27/22 History Magnesia Concentrate] Na Phos,M-B/Na Phos,Di-Ba [Fleet 133 ml RECTAL DAILY PRN 12/14/22 12/27/22 History Adult] Potassium Chloride ER [K-Dur 20] 20 meq PO BID@0800,1700 12/14/22 12/27/22 History Sodium Bicarbonate Tab 650 mg PO BID@0800,1700 12/14/22 12/27/22 History bisacodyL [Dulcolax] 10 mg RECTAL DAILY PRN 12/14/22 12/27/22 History oxyBUTYnin chloride [oxyBUTYnin 5 mg PO DAILY@0800 12/14/22 12/27/22 History chloride ER] Insulin Detemir (Levemir) [Levemir] 10 unit SQ HS each 12/22/22 12/27/22 Rx HYDROcodone/APAP 7.5-325MG [[place] 1 tab PO Q6HR PRN #12 tab 12/23/22 12/27/22 Rx 7.5-325] Budesonide [Pulmicort] 1 mg INHALATION RT-BID@0800,1700 12/27/22 12/27/22 History Ceravite Senior(With Lutein) 1 tab PO DAILY@1700 12/27/22 12/27/22 History Dapagliflozin Propanediol [Farxiga] 10 mg PO DAILY@0800 12/27/22 12/27/22 History Lactobacillus Acidophilus 1 cap PO DAILY@0800 12/27/22 12/27/22 History [Acidophilus Probiotic] Loperamide [Imodium] 2 mg PO DIRECTED PRN 12/27/22 12/27/22 History Metoprolol Succinate (ER) [Toprol 50 mg PO BID@0800,1700 12/27/22 12/27/22 History XL] Pantoprazole [Protonix] 40 mg PO DAILY@0600 12/27/22 12/27/22 History Spironolactone [Aldactone] 25 mg PO DAILY@0800 12/27/22 12/27/22 History metOLazone [Zaroxolyn] 2.5 mg PO DAILY@0800 12/27/22 12/27/22 History Allergies Allergy/AdvReac Type Severity Reaction Status Date / Time No Known Allergies Allergy Verified 12/27/22 21:11 Physical Exam Vitals: Vital Signs Temp Pulse Pulse Resp BP BP Pulse Ox 12/28/22 14:00 112 H 17 113/68 94 L 12/28/22 13:00 106 H 17 116/76 95 12/28/22 12:57 106 H 18 116/76 96 12/28/22 12:36 105 H 18 114/76 94 L 12/28/22 11:38 111 H 12/28/22 11:28 108 H 12/28/22 09:45 117 H 22 125/85 94 L 12/28/22 04:00 97.6 F 108 H 16 122/85 93 L 12/28/22 00:00 97.5 F L 104 H 16 110/74 95 12/27/22 22:09 110 H 12/27/22 20:20 105 H 18 107/68 94 L 12/27/22 19:44 105 H 18 118/92 98 12/27/22 19:18 130 H 18 116/96 94 L 12/27/22 18:05 111 H 18 104/67 95 12/27/22 17:21 120 H 18 100/77 96 12/27/22 15:57 98.8 F 142 H 18 105/78 100 Intake and Output 12/27/22 12/28/22 12/28/22 22:59 06:59 14:59 Other: Voiding Method Indwelling Catheter Indwelling Catheter # Bowel Movements 1 Weight 100.335 kg Results CBC & Chem 7: 12/27/22 16:49 12/27/22 16:49 Labs: Abnormal Lab Results - Last 24 Hours (Table) 12/27/22 12/27/22 12/27/22 Range/Units 16:07 16:49 16:49 WBC 15.4 H (3.8-10.6) k/uL RBC 3.42 L (4.30-5.90) m/uL Hgb 11.1 L (13.0-17.5) gm/dL Hct 34.7 L (39.0-53.0) % MCV 101.3 H (80.0-100.0) fL RDW 18.5 H (11.5-15.5) % Neutrophils # 13.5 H (1.3-7.7) k/uL Lymphocytes # 0.5 L (1.0-4.8) k/uL Monocytes # 1.1 H (0-1.0) k/uL APTT 30.5 H (22.0-30.0) sec Sodium (137-145) mmol/L Carbon Dioxide (22-30) mmol/L BUN (9-20) mg/dL Creatinine (0.66-1.25) mg/dL POC Glucose (mg/dL) 114 H (70-110) mg/dL Albumin (3.5-5.0) g/dL TSH (0.465-4.680) mIU/L Urine Protein (Negative) Urine Glucose (UA) (Negative) Urine Blood (Negative) Ur Leukocyte Esterase (Negative) Urine RBC (0-5) /hpf Urine WBC (0-5) /hpf Urine WBC Clumps (None) /hpf Urine Bacteria (None) /hpf Hyaline Casts (0-2) /lpf Urine Mucus (None) /hpf 12/27/22 12/27/22 12/28/22 Range/Units 16:49 16:49 13:23 WBC (3.8-10.6) k/uL RBC (4.30-5.90) m/uL Hgb (13.0-17.5) gm/dL Hct (39.0-53.0) % MCV (80.0-100.0) fL RDW (11.5-15.5) % Neutrophils # (1.3-7.7) k/uL Lymphocytes # (1.0-4.8) k/uL Monocytes # (0-1.0) k/uL APTT (22.0-30.0) sec Sodium 135 L (137-145) mmol/L Carbon Dioxide 21 L (22-30) mmol/L BUN 40 H (9-20) mg/dL Creatinine 1.34 H (0.66-1.25) mg/dL POC Glucose (mg/dL) 259 H (70-110) mg/dL Albumin 3.1 L (3.5-5.0) g/dL TSH 4.990 H (0.465-4.680) mIU/L Urine Protein 1+ H (Negative) Urine Glucose (UA) Trace H (Negative) Urine Blood Trace H (Negative) Ur Leukocyte Esterase Large H (Negative) Urine RBC 8 H (0-5) /hpf Urine WBC >182 H (0-5) /hpf Urine WBC Clumps Occasional H (None) /hpf Urine Bacteria Rare H (None) /hpf Hyaline Casts 12 H (0-2) /lpf Urine Mucus Rare H (None) /hpf
[2022-12-28 14:48] LABS: ALT 19 U/L (4-49); AST 17 U/L (17-59); African American GFR (CKD) 67 (>60 ml/min/1.73 sqM); Albumin 2.8 g/dL (3.5-5.0); Alkaline Phosphatase 61 U/L (38-126); Anion Gap 13 mmol/L; Blood Urea Nitrogen 41 mg/dL (9-20); Calcium 8.1 mg/dL (8.4-10.2); Carbon Dioxide 21 mmol/L (22-30); Chloride 100 mmol/L (98-107); Glucose 162 mg/dL (74-99); Non-African American GFR(CKD) 58 (>60 ml/min/1.73 sqM); Sodium 134 mmol/L (137-145); Total Bilirubin 0.3 mg/dL (0.2-1.3); Total Protein 7.6 g/dL (6.3-8.2)
[2022-12-28] MEDS: CYCLOBENZAPRINE 5 MG TAB PO SCH ×2 (14:52→19:51)
[2022-12-28] MEDS: FUROSEMIDE 40 MG TAB PO SCH (14:52)
[2022-12-28 15:01] LABS: HGB 8.2 gm/dL (13.0-17.5)
[2022-12-28] MEDS: POTASSIUM CHLORIDE ER 20 MEQ TAB.ER PO SCH ×2 (16:29→19:51)
[2022-12-28] MEDS: MULTIVITAMINS, THERA 1 EACH TAB PO SCH (19:51)
[2022-12-28] MEDS: SERTRALINE 50 MG TAB PO SCH (19:51)
[2022-12-28] MEDS: risperiDONE 0.5 MG TAB PO SCH (19:51)
[2022-12-28] MEDS: ATORVASTATIN 40 MG TAB PO SCH (19:51)
[2022-12-28 20:33] LABS: Glucose,Whole Blood 231 mg/dL (70-110)
[2022-12-28] MEDS: INSULIN DETEMIR (LEVEMIR) 100 UNIT/ML SYR SQ SCH (22:01)
[2022-12-28 22:57] LABS: Amorphous Sediment,Urine Rare /hpf; Bacteria,Urine Occasional /hpf; Hyaline Casts,Urine 21 /lpf (0-2); Mucus,Urine Rare /hpf; RBC,Urine 5 /hpf (0-5); WBC,Urine 89 /hpf (0-5)
[2022-12-28 23:13] LABS: Appearance,Urine Slightly Cloudy (Clear); Bilirubin,Urine Negative (Negative); Color,Urine Light Yellow; Glucose,Urine (UA) Trace (Negative); Ketones,Urine Negative (Negative); Protein,Urine Negative (Negative)
[2022-12-28 23:14] LABS: Blood,Urine Small (Negative); Leukocyte Esterase,Urine Large (Negative); Nitrite,Urine Negative (Negative); Urobilinogen,Urine 0.2 mg/dL (<2.0)
[2022-12-29 06:13] LABS: Glucose,Whole Blood 183 mg/dL (70-110)
[2022-12-29] MEDS: PANTOPRAZOLE 40 MG TABLET PO SCH (06:19)
[2022-12-29] MEDS: FUROSEMIDE 40 MG TAB PO SCH ×2 (06:19→14:50)
[2022-12-29] MEDS: INSULIN ASPART (NovoLOG) 100 UNIT/ML VIAL SQ SCH ×4 (06:19→21:33)
[2022-12-29] MEDS: CYCLOBENZAPRINE 5 MG TAB PO SCH ×3 (06:19→21:35)
[2022-12-29] MEDS: IPRATROPIUM-ALBUTEROL 3 ML NEB INHALATION PRN ×2 (08:27→20:19)
[2022-12-29] MEDS: BUDESONIDE 1 MG/2 ML NEBU INHALATION SCH ×2 (08:27→20:19)
[2022-12-29] MEDS: CLOPIDOGREL 75 MG TAB PO SCH (08:28)
[2022-12-29] MEDS: SPIRONOLACTONE 25 MG TAB PO SCH (08:28)
[2022-12-29] MEDS: OXYBUTYNIN XL 5 MG TAB.ER.24 PO SCH (08:28)
[2022-12-29] MEDS: SACUBITRIL/VALSARTAN 24 MG-26 MG TABLET PO SCH (08:28)
[2022-12-29] MEDS: SODIUM BICARBONATE TAB 650 MG TAB PO SCH ×2 (08:28→16:58)
[2022-12-29] MEDS: FERROUS SULFATE 325 MG TAB PO SCH (08:28)
[2022-12-29] MEDS: LACTOBACILLUS ACIDOPHILUS/PECT 1 EACH CAPSULE PO SCH (08:28)
[2022-12-29] MEDS: APIXABAN 5 MG TAB PO SCH ×2 (08:28→16:58)
[2022-12-29] MEDS: CHOLECALCIFEROL 25 MCG (1000 IU) TABLET PO SCH (08:29)
[2022-12-29] MEDS: AMIODARONE 200 MG TAB PO SCH (08:29)
[2022-12-29] MEDS: allopurinoL 100 MG TAB PO SCH (08:29)
[2022-12-29] MEDS: metOLazone 2.5 MG TAB PO SCH (08:29)
[2022-12-29] MEDS: THIAMINE 100 MG TAB PO SCH (08:29)
[2022-12-29] MEDS: DAPAGLIFLOZIN PROPANEDIOL 10 MG TABLET PO SCH (08:29)
[2022-12-29] MEDS: METOPROLOL SUCCINATE (ER) 50 MG TAB.ER.24H PO SCH ×2 (08:29→16:58)
[2022-12-29 09:10] LABS: ALT 18 U/L (4-49); AST 21 U/L (17-59); African American GFR (CKD) 65 (>60 ml/min/1.73 sqM); Albumin/Globulin Ratio 0.6; Alkaline Phosphatase 69 U/L (38-126); Anion Gap 17 mmol/L; Blood Urea Nitrogen 40 mg/dL (9-20); Calcium 8.6 mg/dL (8.4-10.2); Carbon Dioxide 15 mmol/L (22-30); Chloride 104 mmol/L (98-107); Globulin 5.2 g/dL; Glucose 150 mg/dL (74-99); Non-African American GFR(CKD) 56 (>60 ml/min/1.73 sqM); Potassium 3.7 mmol/L (3.5-5.1); Sodium 136 mmol/L (137-145); Total Bilirubin 0.4 mg/dL (0.2-1.3); Total Protein 8.2 g/dL (6.3-8.2)
[2022-12-29 09:29] LABS: Anisocytosis Slight; Basophils % (A) 0 %; Eosinophils # (A) 0.2 k/uL (0-0.7); Eosinophils % (A) 3 %; HGB 9.2 gm/dL (13.0-17.5); Hypochromasia Marked; Lymphocytes # (A) 0.7 k/uL (1.0-4.8); Lymphocytes % (A) 7 %; MCH 32.6 pg (25.0-35.0); MCHC 31.7 g/dL (31.0-37.0); MCV 102.8 fL (80.0-100.0); Macrocytosis Moderate; Mean Platelet Volume 7.4; Monocytes # (A) 0.7 k/uL (0-1.0); Monocytes % (A) 7 %; Neutrophils # (A) 7.9 k/uL (1.3-7.7); Neutrophils % (A) 82 %; Platelet Count 334 k/uL (150-450); Poikilocytosis Moderate; RBC 2.82 m/uL (4.30-5.90); RDW 18.7 % (11.5-15.5); WBC 9.7 k/uL (3.8-10.6)
[2022-12-29] MEDS: LIDOCAINE 5% PATCH TOPICAL SCH (10:42)
[2022-12-29] MEDS: VANCOMYCIN 125 MG CAPSULE PO SCH ×4 (10:43→21:35)
[2022-12-29 11:23] LABS: Glucose,Whole Blood 300 mg/dL (70-110)
--- NOTE | 2022-12-29 14:03 | P.PN ---
Subjective Progress Note Date: 12/29/22 Hospital Course: 72-year-old male with an extensive past medical history including systolic CHF, A. fib on Eliquis, CAD status post stents, COPD, type 2 diabetes, hypertension who presented from rehab with atrial fibrillation with RVR and hypotension. Patient was recently admitted for Proteus bacteremia and was on antibiotics. Patient having multiple bowel movements, has been complaining of abdominal cramps. In the ED, temperature was 98.8, pulse 142, blood pressure 105/78, respiratory rate 18, saturating at 90% on room air. EKG independently interpreted shows right bundle branch block, and atrial fibrillation with RVR. Chest x-ray independently interpreted, shows mild interstitial opacities. WBC 15.4, hemoglobin 11.1, sodium 135, bicarb 21, anion gap 14, BUN 40, creatinine 1.34 at baseline, glucose 114, troponin negative, TSH mildly elevated at 4.9, urinalysis shows large leukocyte esterase, negative nitrates. Patient admitted for atrial fibrillation with RVR, possible UTI started on Rocephin. Patient was initially admitted to different hospitalist service. Found to be C. difficile positive. Urinary catheter was exchanged. Started on oral vancomycin. Not on any IV antibiotics at the moment. Urine culture is pending. Subjective: Seen and examined at bedside. No acute events overnight. Still having multiple bowel movements. Pertinent positives and negatives as discussed above, a complete review of systems was performed and all other systems are negative. Vitals Signs Reviewed. General: nontoxic, no distress, appears at stated age Derm: warm, dry Head: atraumatic, normocephalic, symmetric Eyes: EOMI, no lid lag, anicteric sclera, pupils equal round reactive to light ENT: Nose and ears atraumatic Neck: No thyromegaly, supple Mouth: no lip lesion, mucus membranes moist Cardiovascular: S1S2 irregular, tachycardic, no murmur, no edema Lungs: clear to auscultation bilateral, no rhonchi, no rales, no wheeze, no accessory muscle use Abdominal: soft, tender to palpation lower abdomen, no guarding, no appreciable organomegaly, Jacobs catheter present Ext: no gross muscle atrophy, strength 3/5 in lower extremities, no contractures Neuro: CN II-XII grossly intact Psych: Alert, oriented, appropriate affect Data Reviewed Today: Pertinent Labs: Hemoglobin 9.2, MCV 102, WBC 9.7, sodium 136, potassium 3.7, creatinine 1.26, glucose range between 150-183 Imaging: No new imaging Assessment and Plan: Active: Sepsis secondary to C. diff colitis Atrial fibrillation with RVR Suspected UTI, indwelling Jacobs present on admission Recent Proteus bacteremia status post antibiotics Type 2 diabetes Hypokalemia, resolved Leukocytosis, resolved -Oral vancomycin 125 mg by mouth 4 times a day -Repeat CBC and BMP tomorrow -Continue home amiodarone, metoprolol 50 twice a day -Heart rate much improved compared to admission -Blood cultures pending -Urine culture is pending -Jacobs catheter was exchanged -Continue home Levemir 10 units, sliding scale insulin, holding glipizide -Continue telemetry -Communicated plan of care with his PCP Chronic: Chronic systolic CHF Chronic kidney disease Chronic macrocytic anemia DVT ppx: Eliquis Code status: Full code Anticipated discharge place: Pending clinical course Anticipated discharge time: Pending clinical course Objective - Vital Signs Vital signs: Vital Signs Temp 98.2 F 12/29/22 08:00 Pulse 112 H 12/29/22 08:47 Resp 16 12/29/22 08:00 BP 109/76 12/29/22 08:00 Pulse Ox 93 L 12/29/22 08:00 FiO2 Intake & Output 12/28/22 12/29/22 12/29/22 18:59 06:59 18:59 Output Total 1100 1100 Balance -1100 -1100 Weight 100.335 kg Output: Urine 1100 1100 Other: Voiding Method Indwelling Catheter Indwelling Catheter # Bowel Movements 3 1 - Labs CBC & Chem 7: 12/29/22 08:09 12/29/22 08:09 Labs: Abnormal Lab Results - Last 24 Hours (Table) 12/28/22 12/28/22 12/28/22 Range/Units 14:01 14:01 15:30 RBC 2.48 L (4.30-5.90) m/uL Hgb 8.2 L D (13.0-17.5) gm/dL Hct 25.2 L (39.0-53.0) % MCV 101.6 H (80.0-100.0) fL RDW 18.5 H (11.5-15.5) % Neutrophils # 8.4 H (1.3-7.7) k/uL Lymphocytes # 0.8 L (1.0-4.8) k/uL Sodium 134 L (137-145) mmol/L Potassium 3.0 L (3.5-5.1) mmol/L Carbon Dioxide 21 L (22-30) mmol/L BUN 41 H (9-20) mg/dL Creatinine (0.66-1.25) mg/dL Glucose 162 H (74-99) mg/dL POC Glucose (mg/dL) (70-110) mg/dL Calcium 8.1 L (8.4-10.2) mg/dL Albumin 2.8 L (3.5-5.0) g/dL Urine Glucose (UA) (Negative) Urine Blood (Negative) Ur Leukocyte Esterase (Negative) Urine WBC (0-5) /hpf Amorphous Sediment (None) /hpf Urine Bacteria (None) /hpf Hyaline Casts (0-2) /lpf Urine Mucus (None) /hpf C. difficile (EIA) Intrp Positive A (Negative) 12/28/22 12/28/22 12/29/22 Range/Units 20:30 21:23 06:11 RBC (4.30-5.90) m/uL Hgb (13.0-17.5) gm/dL Hct (39.0-53.0) % MCV (80.0-100.0) fL RDW (11.5-15.5) % Neutrophils # (1.3-7.7) k/uL Lymphocytes # (1.0-4.8) k/uL Sodium (137-145) mmol/L Potassium (3.5-5.1) mmol/L Carbon Dioxide (22-30) mmol/L BUN (9-20) mg/dL Creatinine (0.66-1.25) mg/dL Glucose (74-99) mg/dL POC Glucose (mg/dL) 231 H 183 H (70-110) mg/dL Calcium (8.4-10.2) mg/dL Albumin (3.5-5.0) g/dL Urine Glucose (UA) Trace H (Negative) Urine Blood Small H (Negative) Ur Leukocyte Esterase Large H (Negative) Urine WBC 89 H (0-5) /hpf Amorphous Sediment Rare H (None) /hpf Urine Bacteria Occasional H (None) /hpf Hyaline Casts 21 H (0-2) /lpf Urine Mucus Rare H (None) /hpf C. difficile (EIA) Intrp (Negative) 12/29/22 12/29/22 12/29/22 Range/Units 08:09 08:09 11:22 RBC 2.82 L (4.30-5.90) m/uL Hgb 9.2 L (13.0-17.5) gm/dL Hct 29.0 L (39.0-53.0) % MCV 102.8 H (80.0-100.0) fL RDW 18.7 H (11.5-15.5) % Neutrophils # 7.9 H (1.3-7.7) k/uL Lymphocytes # 0.7 L (1.0-4.8) k/uL Sodium 136 L (137-145) mmol/L Potassium (3.5-5.1) mmol/L Carbon Dioxide 15 L (22-30) mmol/L BUN 40 H (9-20) mg/dL Creatinine 1.26 H (0.66-1.25) mg/dL Glucose 150 H (74-99) mg/dL POC Glucose (mg/dL) 300 H (70-110) mg/dL Calcium (8.4-10.2) mg/dL Albumin 3.0 L (3.5-5.0) g/dL Urine Glucose (UA) (Negative) Urine Blood (Negative) Ur Leukocyte Esterase (Negative) Urine WBC (0-5) /hpf Amorphous Sediment (None) /hpf Urine Bacteria (None) /hpf Hyaline Casts (0-2) /lpf Urine Mucus (None) /hpf C. difficile (EIA) Intrp (Negative) Microbiology - Last 24 Hours (Table) 12/27/22 17:00 Blood Culture - Preliminary Blood 12/27/22 16:49 Blood Culture - Preliminary Blood
[2022-12-29 16:25] LABS: Glucose,Whole Blood 325 mg/dL (70-110)
[2022-12-29] MEDS: MULTIVITAMINS, THERA 1 EACH TAB PO SCH (16:58)
[2022-12-29 18:23] LABS: Glucose,Whole Blood 348 mg/dL (70-110)
[2022-12-29 19:00] LABS: African American GFR (CKD) 62 (>60 ml/min/1.73 sqM); Anion Gap 15 mmol/L; Blood Urea Nitrogen 41 mg/dL (9-20); Calcium 8.2 mg/dL (8.4-10.2); Carbon Dioxide 17 mmol/L (22-30); Chloride 97 mmol/L (98-107); Glucose 243 mg/dL (74-99); Magnesium 1.3 mg/dL (1.6-2.3); Non-African American GFR(CKD) 54 (>60 ml/min/1.73 sqM); Potassium 3.6 mmol/L (3.5-5.1); Sodium 129 mmol/L (137-145)
[2022-12-29] MEDS: MAGNESIUM SULFATE-D5W PMX 1 GM in DEXTROSE/WATER 1 100ML.BAG IVPB SCH ×3 (20:03→22:58)
[2022-12-29] MEDS: SERTRALINE 50 MG TAB PO SCH (20:03)
[2022-12-29] MEDS: ATORVASTATIN 40 MG TAB PO SCH (20:03)
[2022-12-29] MEDS: risperiDONE 0.5 MG TAB PO SCH (20:04)
[2022-12-29 20:53] LABS: Glucose,Whole Blood 191 mg/dL (70-110)
[2022-12-29] MEDS: POTASSIUM CHLORIDE 10 MEQ in WATER FOR INJECTION 1 100ML.BAG IVPB SCH ×2 (21:34→22:58)
[2022-12-29] MEDS: INSULIN DETEMIR (LEVEMIR) 100 UNIT/ML SYR SQ SCH (21:34)
[2022-12-30] MEDS ORDERED: SODIUM CHLORIDE 0.9% 1,000 ML IV ONE ×2 (00:09→00:29)
[2022-12-30] MEDS: MAGNESIUM SULFATE-D5W PMX 1 GM in DEXTROSE/WATER 1 100ML.BAG IVPB SCH (00:19)
[2022-12-30 02:15] LABS: Glucose,Whole Blood 175 mg/dL (70-110)
[2022-12-30] MEDS: POTASSIUM CHLORIDE 10 MEQ in WATER FOR INJECTION 1 100ML.BAG IVPB SCH ×2 (04:05→05:29)
[2022-12-30] MEDS: SODIUM CHLORIDE 0.9% 1,000 ML IV SCH ×4 (04:06→23:59)
[2022-12-30 06:38] LABS: Glucose,Whole Blood 259 mg/dL (70-110)
--- NOTE | 2022-12-30 08:13 | XR ---
EXAMINATION TYPE: XR chest 1V portable DATE OF EXAM: 12/30/2022 HISTORY: Shortness of breath. COMPARISON: 12/27/2022 TECHNIQUE: Single view of the chest is submitted. FINDINGS: Demonstrated are scattered senescent parenchymal change. There is no evidence for focal infiltrate. The heart is stable. Hilar and mediastinal structures are within normal limits. Degenerative changes are seen of the dorsal spine. Postoperative changes thoracic spine. IMPRESSION: 1. Chronic changes without evidence for acute pulmonary disease.
[2022-12-30 08:14] LABS: Glucose,Whole Blood 173 mg/dL (70-110)
[2022-12-30] MEDS: BUDESONIDE 1 MG/2 ML NEBU INHALATION SCH ×2 (08:35→20:30)
[2022-12-30] MEDS: IPRATROPIUM-ALBUTEROL 3 ML NEB INHALATION PRN ×2 (08:35→20:30)
[2022-12-30 08:38] LABS: Glucose,Whole Blood 198 mg/dL (70-110)
[2022-12-30] MEDS: CLOPIDOGREL 75 MG TAB PO SCH (09:16)
[2022-12-30] MEDS: PANTOPRAZOLE 40 MG TABLET PO SCH (09:16)
[2022-12-30] MEDS: APIXABAN 5 MG TAB PO SCH ×2 (09:16→16:59)
[2022-12-30] MEDS: LIDOCAINE 5% PATCH TOPICAL SCH (09:16)
[2022-12-30] MEDS: CHOLECALCIFEROL 25 MCG (1000 IU) TABLET PO SCH (09:17)
[2022-12-30] MEDS: allopurinoL 100 MG TAB PO SCH (09:17)
[2022-12-30] MEDS: AMIODARONE 200 MG TAB PO SCH ×2 (09:17→21:19)
[2022-12-30] MEDS: FERROUS SULFATE 325 MG TAB PO SCH (09:17)
[2022-12-30] MEDS: LACTOBACILLUS ACIDOPHILUS/PECT 1 EACH CAPSULE PO SCH (09:17)
[2022-12-30] MEDS: SODIUM BICARBONATE TAB 650 MG TAB PO SCH ×2 (09:17→16:59)
[2022-12-30] MEDS: THIAMINE 100 MG TAB PO SCH (09:17)
[2022-12-30] MEDS: metroNIDAZOLE-NS PMX 500 MG in SALINE 1 100ML.BAG IVPB SCH ×3 (09:17→23:56)
[2022-12-30 09:34] LABS: Anisocytosis Slight; Basophils % (A) 0 %; Eosinophils # (A) 0.1 k/uL (0-0.7); Eosinophils % (A) 0 %; HCT 23.3 % (39.0-53.0); Hypochromasia Moderate; Lymphocytes # (A) 0.7 k/uL (1.0-4.8); Lymphocytes % (A) 4 %; MCH 32.7 pg (25.0-35.0); MCHC 32.1 g/dL (31.0-37.0); MCV 102.1 fL (80.0-100.0); Macrocytosis Moderate; Mean Platelet Volume 7.4; Monocytes % (A) 6 %; Neutrophils # (A) 14.2 k/uL (1.3-7.7); Neutrophils % (A) 88 %; Platelet Count 322 k/uL (150-450); Poikilocytosis Moderate; RBC 2.28 m/uL (4.30-5.90); RDW 18.9 % (11.5-15.5); WBC 16.2 k/uL (3.8-10.6)
--- NOTE | 2022-12-30 09:48 | P.CNPUL ---
History of Present Illness Consult date: 12/30/22 Chief complaint: c diff colitis History of present illness: This is a 72-year-old male patient who is being seen in the intensive care unit for hypotension C. diff colitis. The patient overnight became hypotensive and was given a total of 2 L of normal saline. He was having also issues with atrial fibrillation with rapid ventricular response. Because of all these issues, the patient got transferred to the intensive care unit. The patient is known to our services. The patient was in the hospital treated for acute hypoxic respiratory failure due to CHF and he was discharged home on 12/23/2022. Note that during his early hospitalization, the patient was septic with Proteus mirabilis and this was thought to be related to urinary tract infection and secondary septicemia. During his earlier admission, the patient also had an acute kidney injury and the creatinine was as high as 1.9 and subsequently dropped to 1.2 prior to his discharged. He is known to systolic heart failure with an ejection fraction of 35%. He has a combination of comorbidities including coronary artery disease, previous PCI, and is also diabetic, has previ ous history of chronic atrial fibrillation, has history of non-sustained ventricle tachycardia and he has an AICD in place. He has hypertension hyperlipidemia and is also obese with a BMI of 36. The patient was hospital was because of C. diff colitis and this has been confirmed. Stool for C. diff has been positive. The patient is currently on IV Flagyl and oral vancomycin 125 mg by mouth 4 times a day. Lactic acid level peaked at 2.1 and up to 1.7. Based on his underlying diarrhea, the patient is having a component of melena negative metabolic acidosis. Serum bicarbs at 17. BUN is at 41 with a creatinine of 1.3 and a sodium level is at 129. He is currently on oral bicarb. Is also on normal saline running at 125 cc an hour. He remains in atrial fibrillation. He is currently on amiodarone 200 mg by mouth once a day and is also metoprolol 50 mg twice a day. Is also limited on multiple anticoagulation with Eliquis. He is taking Plavix. Is also on Levemir insulin 10 units for blood sugar control. His white cell cause of 9.7. Is currently on oxygen at 3 L nasal cannula. His chest x-ray shows no acute abnormalities. He has an AICD in place. No signs of any heart failure. He does have a compression fracture in his thoracic spine and he has undergone a kyphoplasty and he also has postop changes involving the thoracic spine including a medical place to stabilize the spine. He is currently afebrile. He still having frequent liquidy bowel movements related to his undergoing C. diff colitis. His UA was abnormal at the time of admission. Nevertheless, the urine cultures are still negative. He has a Jacobs catheter in place. Review of Systems Constitutional: Reports fatigue, Reports lethargy, Reports poor appetite, Repor ts weakness, Reports weight gain Eyes: denies as per HPI, denies blurred vision, denies bulging eye, denies decreased vision, denies diplopia, denies discharge, denies dry eye, denies irritation, denies itching, denies pain, denies photophobia, denies loss of peripheral vision, denies loss of vision, denies tunnel vision/blind spots Ears: deny: decreased hearing, ear discharge, earache, tinnitus Ears, nose, mouth and throat: Reports as per HPI Cardiovascular: Reports decreased exercise tolerance, Reports dyspnea on exertion, Reports irregular heart beat, Reports rapid heart beat Respiratory: Reports as per HPI Gastrointestinal: Reports as per HPI, Reports diarrhea Genitourinary: Reports as per HPI Musculoskeletal: Reports as per HPI Musculoskeletal: absent: ankle pain, ankle stiffness, ankle swelling Integumentary: Reports as per HPI Neurological: Reports as per HPI Psychiatric: Reports as per HPI Endocrine: Reports as per HPI Hematologic/Lymphatic: Reports as per HPI Allergic/Immunologic: Reports as per HPI Past Medical History Past Medical History: Atrial Fibrillation, Coronary Artery Disease (CAD), Heart Failure, Diabetes Mellitus, Hyperlipidemia, Hypertension Additional Past Medical History / Comment(s): See Dr Piedra's H&P. "Feet cold sometimes". Gout. Hx UTI and kidney infection with Covid. History of Any Multi-Drug Resistant Organisms: None Reported Past Surgical History: Heart Catheterization With Stent, Orthopedic Surgery, Pacemaker Additional Past Surgical History / Comment(s): 2 STENTS DEC 2020, left hip surgery X2. Past Anesthesia/Blood Transfusion Reactions: No Reported Reaction, Postoperative Nausea & Vomiting (PONV) Additional Past Anesthesia/Blood Transfusion Reaction / Comment(s): UNKNOWN FAMILY HX. Date of Last Stent Placement:: DEC 2020 Type of Cardiac Device: Unknown Device Placement Date:: Unknown Past Psychological History: Anxiety, Depression Smoking Status: Former smoker Past Alcohol Use History: None Reported Additional Past Alcohol Use History / Comment(s): QUIT SMOKING AT LEAST 11 YRS AGO. Past Drug Use History: None Reported - Past Family History Mother Family Medical History: Cancer Brother(s) Family Medical History: Cancer Additional Family Medical History / Comment(s): Lung cancer. Father History Unknown: Yes Family Medical History: Hyperlipidemia Medications and Allergies Home Medications Medication Instructions Recorded Confirmed Type Ferrous Sulfate [Iron] 325 mg PO DAILY@0800 10/21/20 12/27/22 History Sertraline HCl [Zoloft] 50 mg PO HS 10/21/20 12/27/22 History allopurinoL [Zyloprim] 100 mg PO DAILY@0800 10/21/20 12/27/22 History risperiDONE [RisperDAL] 0.5 mg PO HS 10/21/20 12/27/22 History Apixaban [Eliquis] 5 mg PO BID@0800,1700 05/09/21 12/27/22 History Thiamine HCl [Vitamin B-1] 100 mg PO DAILY@0800 05/09/21 12/27/22 History Amiodarone [Cordarone] 200 mg PO DAILY@0800 02/06/22 12/27/22 History glipiZIDE [Glucotrol] 5 mg PO BID@0800,1700 02/06/22 12/27/22 History Acetaminophen Tab [Tylenol] 1,000 mg PO TID@0600,1400,2200 10/01/22 12/27/22 History Sacubitril/Valsartan [Entresto 24 1 tab PO BID@0800,1700 10/01/22 12/27/22 History mg-26 mg Tablet] Atorvastatin [Lipitor] 40 mg PO HS 10/16/22 12/27/22 History Clopidogrel [Plavix] 75 mg PO DAILY@0800 10/16/22 12/27/22 History Lidocaine 5% Patch [Lidoderm 5% 1 patch TRANSDERM DAILY 10/17/22 12/27/22 History Patch] Acetaminophen [Tylenol] 650 mg PO Q4H PRN 12/14/22 12/27/22 History Cholecalciferol [Vitamin D3 (25 50 mcg PO DAILY@0800 12/14/22 12/27/22 History Mcg = 1000 Iu)] Cyclobenzaprine [Flexeril] 5 mg PO TID@0600,1400,2200 12/14/22 12/27/22 History Furosemide [Lasix] 40 mg PO BID@0600,1400 12/14/22 12/27/22 History Ipratropium-Albuterol Nebulize 3 ml INHALATION RT-Q6H PRN 12/14/22 12/27/22 History [Duoneb 0.5 mg-3 mg/3 ml Soln] Magnesium Hydroxide [Milk of 7,200 mg PO Q48H PRN 12/14/22 12/27/22 History Magnesia Concentrate] Na Phos,M-B/Na Phos,Di-Ba [Fleet 133 ml RECTAL DAILY PRN 12/14/22 12/27/22 History Adult] Potassium Chloride ER [K-Dur 20] 20 meq PO BID@0800,1700 12/14/22 12/27/22 History Sodium Bicarbonate Tab 650 mg PO BID@0800,1700 12/14/22 12/27/22 History bisacodyL [Dulcolax] 10 mg RECTAL DAILY PRN 12/14/22 12/27/22 History oxyBUTYnin chloride [oxyBUTYnin 5 mg PO DAILY@0800 12/14/22 12/27/22 History chloride ER] Insulin Detemir (Levemir) [Levemir] 10 unit SQ HS each 12/22/22 12/27/22 Rx HYDROcodone/APAP 7.5-325MG [[place] 1 tab PO Q6HR PRN #12 tab 12/23/22 12/27/22 Rx 7.5-325] Budesonide [Pulmicort] 1 mg INHALATION RT-BID@0800,1700 12/27/22 12/27/22 History Ceravite Senior(With Lutein) 1 tab PO DAILY@1700 12/27/22 12/27/22 History Dapagliflozin Propanediol [Farxiga] 10 mg PO DAILY@0800 12/27/22 12/27/22 History Lactobacillus Acidophilus 1 cap PO DAILY@0800 12/27/22 12/27/22 History [Acidophilus Probiotic] Loperamide [Imodium] 2 mg PO DIRECTED PRN 12/27/22 12/27/22 History Metoprolol Succinate (ER) [Toprol 50 mg PO BID@0800,1700 12/27/22 12/27/22 History XL] Pantoprazole [Protonix] 40 mg PO DAILY@0600 12/27/22 12/27/22 History Spironolactone [Aldactone] 25 mg PO DAILY@0800 12/27/22 12/27/22 History metOLazone [Zaroxolyn] 2.5 mg PO DAILY@0800 12/27/22 12/27/22 History Allergies Allergy/AdvReac Type Severity Reaction Status Date / Time No Known Allergies Allergy Verified 12/27/22 21:11 Physical Exam Vitals: Vital Signs Temp Pulse Pulse Pulse Resp BP BP 12/30/22 09:00 117 H 25 H 98/66 12/30/22 08:56 106 H 12/30/22 08:35 98.0 F 112 H 27 H 88/64 12/30/22 07:50 98.1 F 124 H 34 H 81/60 12/30/22 05:41 12/30/22 05:27 107 H 75/54 12/30/22 04:14 117 H 101/66 12/30/22 01:07 98 F 102 H 18 100/72 12/30/22 00:27 125 H 84/52 12/29/22 20:38 116 H 12/29/22 20:20 118 H 12/29/22 19:00 98 F 106 H 18 108/72 12/29/22 18:20 98.0 F 118 H 24 118/77 12/29/22 17:11 119 H 102/67 12/29/22 15:57 114 H 90/58 12/29/22 14:42 91/60 12/29/22 14:00 97.6 F 109 H 17 90/61 Pulse Ox 12/30/22 09:00 98 12/30/22 08:56 12/30/22 08:35 98 12/30/22 07:50 96 12/30/22 05:41 94 L 12/30/22 05:27 12/30/22 04:14 12/30/22 01:07 100 12/30/22 00:27 12/29/22 20:38 12/29/22 20:20 12/29/22 19:00 100 12/29/22 18:20 100 12/29/22 17:11 12/29/22 15:57 12/29/22 14:42 12/29/22 14:00 93 L Intake and Output 12/29/22 12/30/22 12/30/22 22:59 06:59 14:59 Other: Voiding Method Indwelling Catheter Indwelling Catheter # Voids 1 # Bowel Movements 1 Results - Laboratory Findings CBC and BMP: 12/29/22 08:09 12/29/22 18:05 PT/INR, D-dimer PT 12.2 sec (10.0-12.5) 12/27/22 16:49 INR 1.1 (<1.2) 12/27/22 16:49 Abnormal lab findings: Abnormal Labs 12/27/22 12/27/22 12/27/22 16:07 16:49 16:49 WBC 15.4 H RBC 3.42 L Hgb 11.1 L Hct 34.7 L MCV 101.3 H RDW 18.5 H Neutrophils # 13.5 H Lymphocytes # 0.5 L Monocytes # 1.1 H APTT 30.5 H Sodium Potassium Chloride Carbon Dioxide BUN Creatinine Glucose POC Glucose (mg/dL) 114 H Plasma Lactic Acid Ilya Calcium Magnesium Albumin TSH Urine Protein Urine Glucose (UA) Urine Blood Ur Leukocyte Esterase Urine RBC Urine WBC Urine WBC Clumps Amorphous Sediment Urine Bacteria Hyaline Casts Urine Mucus C. difficile (EIA) Intrp 12/27/22 12/27/22 12/28/22 16:49 16:49 13:23 WBC RBC Hgb Hct MCV RDW Neutrophils # Lymphocytes # Monocytes # APTT Sodium 135 L Potassium Chloride Carbon Dioxide 21 L BUN 40 H Creatinine 1.34 H Glucose POC Glucose (mg/dL) 259 H Plasma Lactic Acid Ilya Calcium Magnesium Albumin 3.1 L TSH 4.990 H Urine Protein 1+ H Urine Glucose (UA) Trace H Urine Blood Trace H Ur Leukocyte Esterase Large H Urine RBC 8 H Urine WBC >182 H Urine WBC Clumps Occasional H Amorphous Sediment Urine Bacteria Rare H Hyaline Casts 12 H Urine Mucus Rare H C. difficile (EIA) Intrp 12/28/22 12/28/22 12/28/22 14:01 14:01 15:30 WBC RBC 2.48 L Hgb 8.2 L D Hct 25.2 L MCV 101.6 H RDW 18.5 H Neutrophils # 8.4 H Lymphocytes # 0.8 L Monocytes # APTT Sodium 134 L Potassium 3.0 L Chloride Carbon Dioxide 21 L BUN 41 H Creatinine Glucose 162 H POC Glucose (mg/dL) Plasma Lactic Acid Ilya Calcium 8.1 L Magnesium Albumin 2.8 L TSH Urine Protein Urine Glucose (UA) Urine Blood Ur Leukocyte Esterase Urine RBC Urine WBC Urine WBC Clumps Amorphous Sediment Urine Bacteria Hyaline Casts Urine Mucus C. difficile (EIA) Intrp Positive A 12/28/22 12/28/22 12/29/22 20:30 21:23 06:11 WBC RBC Hgb Hct MCV RDW Neutrophils # Lymphocytes # Monocytes # APTT Sodium Potassium Chloride Carbon Dioxide BUN Creatinine Glucose POC Glucose (mg/dL) 231 H 183 H Plasma Lactic Acid Ilya Calcium Magnesium Albumin TSH Urine Protein Urine Glucose (UA) Trace H Urine Blood Small H Ur Leukocyte Esterase Large H Urine RBC Urine WBC 89 H Urine WBC Clumps Amorphous Sediment Rare H Urine Bacteria Occasional H Hyaline Casts 21 H Urine Mucus Rare H C. difficile (EIA) Intrp 12/29/22 12/29/22 12/29/22 08:09 08:09 11:22 WBC RBC 2.82 L Hgb 9.2 L Hct 29.0 L MCV 102.8 H RDW 18.7 H Neutrophils # 7.9 H Lymphocytes # 0.7 L Monocytes # APTT Sodium 136 L Potassium Chloride Carbon Dioxide 15 L BUN 40 H Creatinine 1.26 H Glucose 150 H POC Glucose (mg/dL) 300 H Plasma Lactic Acid Ilya Calcium Magnesium Albumin 3.0 L TSH Urine Protein Urine Glucose (UA) Urine Blood Ur Leukocyte Esterase Urine RBC Urine WBC Urine WBC Clumps Amorphous Sediment Urine Bacteria Hyaline Casts Urine Mucus C. difficile (EIA) Intrp 12/29/22 12/29/22 12/29/22 16:24 18:05 18:22 WBC RBC Hgb Hct MCV RDW Neutrophils # Lymphocytes # Monocytes # APTT Sodium 129 L Potassium Chloride 97 L Carbon Dioxide 17 L BUN 41 H Creatinine 1.31 H Glucose 243 H POC Glucose (mg/dL) 325 H 348 H Plasma Lactic Acid Ilya Calcium 8.2 L Magnesium 1.3 L Albumin TSH Urine Protein Urine Glucose (UA) Urine Blood Ur Leukocyte Esterase Urine RBC Urine WBC Urine WBC Clumps Amorphous Sediment Urine Bacteria Hyaline Casts Urine Mucus C. difficile (EIA) Intrp 12/29/22 12/29/2223 20:51 23:01 02:13 WBC RBC Hgb Hct MCV RDW Neutrophils # Lymphocytes # Monocytes # APTT Sodium Potassium Chloride Carbon Dioxide BUN Creatinine Glucose POC Glucose (mg/dL) 191 H 175 H Plasma Lactic Acid Ilya 2.1 H* Calcium Magnesium Albumin TSH Urine Protein Urine Glucose (UA) Urine Blood Ur Leukocyte Esterase Urine RBC Urine WBC Urine WBC Clumps Amorphous Sediment Urine Bacteria Hyaline Casts Urine Mucus C. difficile (EIA) Intrp 12/30/22 12/30/22 12/30/22 06:36 08:12 08:37 WBC RBC Hgb Hct MCV RDW Neutrophils # Lymphocytes # Monocytes # APTT Sodium Potassium Chloride Carbon Dioxide BUN Creatinine Glucose POC Glucose (mg/dL) 259 H 173 H 198 H Plasma Lactic Acid Ilya Calcium Magnesium Albumin TSH Urine Protein Urine Glucose (UA) Urine Blood Ur Leukocyte Esterase Urine RBC Urine WBC Urine WBC Clumps Amorphous Sediment Urine Bacteria Hyaline Casts Urine Mucus C. difficile (EIA) Intrp - Diagnostic Findings Chest x-ray: image reviewed Assessment and Plan Plan: Hypotension, likely secondary to intravascular depletion investigation with di arrhea and C. diff colitis, currently receiving IV fluids with normal saline at the rate of 125 mL an hour. The patient also received a total of 2 L of bolus. He is on no pressors C. diff colitis, antibiotic induced currently on accommodation Flagyl and vancomycin. Noted the patient was treated with Unasyn during his earlier hospitalization and the patient was discharged home on oral Ceftin the Recent hospitalization for urinary tract infection with Proteus mirabilis and secondary septicemia Hyponatremia secondary to diarrhea Non-anion gap metabolic acidosis secondary to diarrhea Acute kidney injury possibly with a component of chronic kidney disease, stage II to 3 Chronic ischemic cardiomyopathy with an ejection fraction of 35% along with moderate mitral regurgitation and tricuspid regurgitation mother did reveal pulmonary hypertension Coronary artery disease with previous PCI Diabetes mellitus type 2 History of nonsustained VT and the patient has an AICD in place Diabetes mellitus type 2 Hypertension Hyperlipidemia Obesity with a BMI of 36 Anemia of chronic disease Plan Continue with normal saline at the rate of 125 mL an hour Monitor diarrhea Continue Flagyl and oral vancomycin Monitor electrolytes. We'll repeat electrolytes today and replace accordingly Increase amiodarone to 200 mg twice a day Continue metoprolol as long as his systolic blood pressure remains above 90 Continue anticoagulation with Eliquis Continue Levemir insulin 10 units along with a sinus care coverage, and the patient is also on Farxiga 10 mg by mouth daily Watch for any signs of fluid overload. The patient has no signs of decompensated heart failure at this point and the patient remains on 2 L of oxygen by nasal cannula Monitor renal function Continue Plavix Pressors if needed We'll continue to follow Time with Patient: Greater than 30
[2022-12-30 09:54] LABS: HGB 7.5 gm/dL (13.0-17.5)
[2022-12-30 09:58] LABS: African American GFR (CKD) 51 (>60 ml/min/1.73 sqM); Blood Urea Nitrogen 43 mg/dL (9-20); Calcium 7.8 mg/dL (8.4-10.2); Carbon Dioxide 14 mmol/L (22-30); Glucose 213 mg/dL (74-99); Magnesium 2.3 mg/dL (1.6-2.3); Non-African American GFR(CKD) 44 (>60 ml/min/1.73 sqM)
[2022-12-30 10:19] LABS: Anion Gap 14 mmol/L; Chloride 104 mmol/L (98-107); Potassium 3.8 mmol/L (3.5-5.1); Sodium 132 mmol/L (137-145)
--- NOTE | 2022-12-30 10:47 | P.PN ---
Subjective Progress Note Date: 12/30/22 Hospital Course: 72-year-old male with an extensive past medical history including systolic CHF, A. fib on Eliquis, CAD status post stents, COPD, type 2 diabetes, hypertension who presented from rehab with atrial fibrillation with RVR and hypotension. Patient was recently admitted for Proteus bacteremia and was on antibiotics. Patient having multiple bowel movements, has been complaining of abdominal cramps. In the ED, temperature was 98.8, pulse 142, blood pressure 105/78, respiratory rate 18, saturating at 90% on room air. EKG independently interpreted shows right bundle branch block, and atrial fibrillation with RVR. Chest x-ray independently interpreted, shows mild interstitial opacities. WBC 15.4, hemoglobin 11.1, sodium 135, bicarb 21, anion gap 14, BUN 40, creatinine 1.34 at baseline, glucose 114, troponin negative, TSH mildly elevated at 4.9, urinalysis shows large leukocyte esterase, negative nitrates. Patient admitted for atrial fibrillation with RVR, possible was given Rocephin in the EDially admitted to different hospitalist service. Found to be C. difficile positive. Urinary catheter was exchanged. Started on oral vancomycin. Patient became hypotensive, requiring IV fluids. Now currently in the ICU. Also on IV Flagyl. CT abdomen and pelvis pending. Cardiology and pulmonology following. Subjective: Seen and examined at bedside. Overnight, patient was hypotensive and tachycardic. Required multiple boluses of IV fluids, now in medical ICU. Continues to have diarrhea. Pertinent positives and negatives as discussed above, a complete review of systems was performed and all other systems are negative. Vitals Signs Reviewed. General: nontoxic, no distress, appears at stated age Derm: warm, dry Head: atraumatic, normocephalic, symmetric Eyes: EOMI, no lid lag, anicteric sclera, pupils equal round reactive to light ENT: Nose and ears atraumatic Neck: No thyromegaly, supple Mouth: no lip lesion, mucus membranes moist Cardiovascular: S1S2 irregular, tachycardic, no murmur, no edema Lungs: clear to auscultation bilateral, no rhonchi, no rales, no wheeze, no accessory muscle use Abdominal: soft, tender to palpation lower abdomen, no guarding, no appreciable organomegaly, Jacobs catheter present Ext: no gross muscle atrophy, strength 3/5 in lower extremities, no contractures Neuro: CN II-XII grossly intact Psych: Alert, oriented, appropriate affect Data Reviewed Today: Pertinent Labs: WBC 16.2, hemoglobin 7.5, sodium 132, bicarb 14, creatinine 1.54, lactate 1.7 Imaging: Chest x-ray independently interpreted, shows no acute process Assessment and Plan: Patient is critically ill, prognosis guarded. Active: Severe Sepsis secondary to C. diff colitis Atrial fibrillation with RVR Recent Proteus bacteremia status post antibiotics Insulin-dependent Type 2 diabetes Acute kidney injury Metabolic acidosis Mild hyponatremia Acute on chronic macrocytic anemia -Patient transferred to ICU -Oral vancomycin 125 mg by mouth 4 times a day -Also started on IV Flagyl 500 every 8 hours -CT abdomen and pelvis ordered -Continue IV fluids normal saline at 1 25 mL an hour -Patient may need pressors -Holding home antihypertensives -Pulmonology note reviewed, continue current therapy, amiodarone increased to 200 twice a day -Continue metoprolol 50 twice a day -Acute kidney injury likely ATN in the setting of hypotension -Continue sodium bicarbonate oral 650 twice a day -No signs of bleeding, continue Eliquis and Plavix for now -Continue home Levemir 10 units, sliding scale insulin, holding glipizide -Continue telemetry -Communicated plan of care with his PCP Lactic acidosis, resolved Hypokalemia, resolved Hypomagnesemia resolved Indwelling Jacobs catheter present on admission, exchanged Chronic: Chronic systolic CHF Chronic kidney disease Chronic macrocytic anemia DVT ppx: Eliquis Code status: Full code Anticipated discharge place: Pending clinical course Anticipated discharge time: Pending clinical course Objective - Vital Signs Vital signs: Vital Signs Temp 98.0 F 12/30/22 08:35 Pulse 117 H 12/30/22 09:00 Resp 25 H 12/30/22 09:00 BP 98/66 12/30/22 09:00 Pulse Ox 98 12/30/22 09:00 FiO2 Intake & Output 12/29/22 12/30/22 12/30/22 18:59 06:59 18:59 Output Total 1875 Balance -1875 Output: Urine 1875 Other: Voiding Method Indwelling Catheter Indwelling Catheter Indwelling Catheter # Voids 1 # Bowel Movements 1 - Labs CBC & Chem 7: 12/30/22 09:05 12/30/22 09:05 Labs: Abnormal Lab Results - Last 24 Hours (Table) 12/29/22 12/29/22 12/29/22 Range/Units 11:22 16:24 18:05 WBC (3.8-10.6) k/uL RBC (4.30-5.90) m/uL Hgb (13.0-17.5) gm/dL Hct (39.0-53.0) % MCV (80.0-100.0) fL RDW (11.5-15.5) % Neutrophils # (1.3-7.7) k/uL Lymphocytes # (1.0-4.8) k/uL Sodium 129 L (137-145) mmol/L Chloride 97 L (98-107) mmol/L Carbon Dioxide 17 L (22-30) mmol/L BUN 41 H (9-20) mg/dL Creatinine 1.31 H (0.66-1.25) mg/dL Glucose 243 H (74-99) mg/dL POC Glucose (mg/dL) 300 H 325 H (70-110) mg/dL Plasma Lactic Acid Ilya (0.7-2.0) mmol/L Calcium 8.2 L (8.4-10.2) mg/dL Magnesium 1.3 L (1.6-2.3) mg/dL 12/29/22 12/29/22 12/29/22 Range/Units 18:22 20:51 23:01 WBC (3.8-10.6) k/uL RBC (4.30-5.90) m/uL Hgb (13.0-17.5) gm/dL Hct (39.0-53.0) % MCV (80.0-100.0) fL RDW (11.5-15.5) % Neutrophils # (1.3-7.7) k/uL Lymphocytes # (1.0-4.8) k/uL Sodium (137-145) mmol/L Chloride (98-107) mmol/L Carbon Dioxide (22-30) mmol/L BUN (9-20) mg/dL Creatinine (0.66-1.25) mg/dL Glucose (74-99) mg/dL POC Glucose (mg/dL) 348 H 191 H (70-110) mg/dL Plasma Lactic Acid Ilya 2.1 H* (0.7-2.0) mmol/L Calcium (8.4-10.2) mg/dL Magnesium (1.6-2.3) mg/dL 12/30/22 12/30/22 12/30/22 Range/Units 02:13 06:36 08:12 WBC (3.8-10.6) k/uL RBC (4.30-5.90) m/uL Hgb (13.0-17.5) gm/dL Hct (39.0-53.0) % MCV (80.0-100.0) fL RDW (11.5-15.5) % Neutrophils # (1.3-7.7) k/uL Lymphocytes # (1.0-4.8) k/uL Sodium (137-145) mmol/L Chloride (98-107) mmol/L Carbon Dioxide (22-30) mmol/L BUN (9-20) mg/dL Creatinine (0.66-1.25) mg/dL Glucose (74-99) mg/dL POC Glucose (mg/dL) 175 H 259 H 173 H (70-110) mg/dL Plasma Lactic Acid Ilya (0.7-2.0) mmol/L Calcium (8.4-10.2) mg/dL Magnesium (1.6-2.3) mg/dL 12/30/22 12/30/22 12/30/22 Range/Units 08:37 09:05 09:05 WBC 16.2 H (3.8-10.6) k/uL RBC 2.28 L (4.30-5.90) m/uL Hgb 7.5 L D (13.0-17.5) gm/dL Hct 23.3 L (39.0-53.0) % MCV 102.1 H (80.0-100.0) fL RDW 18.9 H (11.5-15.5) % Neutrophils # 14.2 H (1.3-7.7) k/uL Lymphocytes # 0.7 L (1.0-4.8) k/uL Sodium 132 L (137-145) mmol/L Chloride (98-107) mmol/L Carbon Dioxide 14 L (22-30) mmol/L BUN 43 H (9-20) mg/dL Creatinine 1.54 H (0.66-1.25) mg/dL Glucose 213 H (74-99) mg/dL POC Glucose (mg/dL) 198 H (70-110) mg/dL Plasma Lactic Acid Ilya (0.7-2.0) mmol/L Calcium 7.8 L (8.4-10.2) mg/dL Magnesium (1.6-2.3) mg/dL Microbiology - Last 24 Hours (Table) 12/28/22 21:23 Urine Culture - Final Urine,Voided 12/27/22 17:00 Blood Culture - Preliminary Blood 12/27/22 16:49 Blood Culture - Preliminary Blood
[2022-12-30] MEDS: INSULIN ASPART (NovoLOG) 100 UNIT/ML VIAL SQ SCH ×4 (10:55→21:21)
[2022-12-30] MEDS: DAPAGLIFLOZIN PROPANEDIOL 10 MG TABLET PO SCH (11:02)
[2022-12-30] MEDS: OXYBUTYNIN XL 5 MG TAB.ER.24 PO SCH (11:03)
[2022-12-30] MEDS: CYCLOBENZAPRINE 5 MG TAB PO SCH ×3 (11:03→22:53)
[2022-12-30] MEDS: VANCOMYCIN 125 MG CAPSULE PO SCH ×4 (11:03→22:53)
[2022-12-30] MEDS: METOPROLOL SUCCINATE (ER) 50 MG TAB.ER.24H PO SCH ×2 (11:03→17:47)
[2022-12-30] MEDS ORDERED: SODIUM CHLORIDE 0.65% NASAL SPRAY 44 ML BTL NASAL PRN (11:09)
--- NOTE | 2022-12-30 11:54 | CT ---
EXAMINATION TYPE: CT abdomen pelvis wo con DATE OF EXAM: 12/30/2022 COMPARISON: 12/17/2022 HISTORY: Pain, colitis, C diff CT DLP: 1226.2 mGycm Examination of the solid and hollow viscera is limited given the lack of contrast. FINDINGS: LUNG BASES: No evidence for nodule. No evidence for infiltrate. Left basilar atelectasis and tiny tra ce effusions. LIVER/GB: The gallbladder is unremarkable. No space-occupying hepatic lesion. PANCREAS: No pancreatic mass identified. No inflammatory process seen. SPLEEN: No evidence for splenomegaly. No intrasplenic lesions seen. ADRENALS: No adrenal nodules identified. No evidence for thickening. KIDNEYS: Probable left renal cyst. No nephrolithiasis. No hydronephrosis. Urinary bladder is decompre ssed with Jacobs catheter in place. Persistent suggested wall thickening BOWEL: Appendix has a normal appearance. No evidence of bowel obstruction. There is rectosigmoid wall thickening with surrounding fat stranding compatible with proctocolitis. Lymph nodes: No evidence for adenopathy greater than 1 cm. Abdominal aorta: Atheromatous changes seen. No evidence for aneurysm. Genital organs: No significant abnormality. Other: No significant abnormality. IMPRESSION: 1. Correlate for proctocolitis. 2. Persistent urinary bladder wall thickening.
--- NOTE | 2022-12-30 12:26 | P.CRDCN ---
History of Present Illness History of present illness: Patient is pleasant 72-year-old male with history of persistent atrial fibrillation, CAD with prior PCI, systolic heart failure, VT status post AICD, diabetes mellitus type 2, hypertension, hyperlipidemia. Patient presents from extended care facility secondary to diarrhea. Prior echo from September 2022 shows ejection fraction 35-40%. He was recently here 2 weeks ago with urinary tract infection and confusion. He was discharged to his extended care facility and had diarrhea and found to have C. diff colitis. He has been treated on the general medical floor however developed worsened hypotension as well as worsened tachycardia and therefore transferred to ICU. His amiodarone was increased at 200 mg twice a day. Heart rates mainly in the 110s to 120s. He has been given IV fluid bolus with some mild improvement in blood pressures mainly 90s over 70s with adequate map. He denies any chest pain or pressure. Admits to good appetite. Denies any shortness of breath. He was given 2 L of fluids with drop in hemoglobin originally 11.1 likely some component of hemoconcentration with more baseline 8 and hemoglobin has dropped down to 7.5 this morning. No active bleeding. He follows in the office with Dr. Van. REVIEW OF SYSTEMS At the time of my exam: CONSTITUTIONAL: Denies fever or chills. CARDIOVASCULAR: Denies chest pain, no shortness of breath, no PND or palpit ations. RESPIRATORY: Denies cough. GASTROINTESTINAL: Denies abdominal pain, diarrhea, constipation, nausea or vomiting. MUSCULOSKELETAL: Denies myalgias. NEUROLOGIC: Denies numbness, tingling or weakness. ENDOCRINE: Denies fatigue, weight change, polydipsia or polyurina. GENITOURINARY: Denies burning, hematuria or urgency with micturation. HEMATOLOGIC: Denies history of anemia or bleeding. PHYSICAL EXAMINATION Vital signs reviewed. CONSTITUTIONAL: No apparent distress, confused HEENT: Head is normocephalic. Pupils are equal, round. Sclerae anicteric. Mucous membranes of the mouth are moist. No JVD. No carotid bruit. CHEST EXAMINATION: Lungs are clear to auscultation. No chest wall tenderness is noted on palpation or with deep breathing. HEART EXAMINATION: Regular rate and rhythm. S1, S2 heard. No murmurs, gallops or rub. ABDOMEN: Soft, nontender. Positive bowel sounds. EXTREMITIES: 2+ peripheral pulses, 2+ lower extremity edema and no calf tenderness. NEUROLOGIC EXAMINATION: Patient is awake, alert and oriented x3. ASSESSMENT 1. Chronic systolic heart failure 2. Shock likely mainly from sepsis 3. Cdiff 4. Persistent A. fib with RVR 5. History of Hypertension 6. Cardiomyopathy ejection fraction 35-40% 7. History of coronary artery disease 8. Urinary tract infection 9. Acute kidney injury PLAN Continue with Toprol which was increased to 50 mg twice a day previously as tolerated. Continue with amiodarone at the higher dose 200 mg twice a day. Heart rates will likely improve with treatment of underlying sepsis. Monitor hemoglobins closely. No need to repeat echo. Monitor for any beginning of heart failure however continue with IV fluid resuscitation. Past Medical History Past Medical History: Atrial Fibrillation, Coronary Artery Disease (CAD), Heart Failure, Diabetes Mellitus, Hyperlipidemia, Hypertension Additional Past Medical History / Comment(s): See Dr Piedra's H&P. "Feet cold sometimes". Gout. Hx UTI and kidney infection with Covid. History of Any Multi-Drug Resistant Organisms: None Reported Past Surgical History: Heart Catheterization With Stent, Orthopedic Surgery, Pacemaker Additional Past Surgical History / Comment(s): 2 STENTS DEC 2020, left hip surgery X2. Past Anesthesia/Blood Transfusion Reactions: No Reported Reaction, Postoperative Nausea & Vomiting (PONV) Additional Past Anesthesia/Blood Transfusion Reaction / Comment(s): UNKNOWN FAMILY HX. Date of Last Stent Placement:: DEC 2020 Type of Cardiac Device: Unknown Device Placement Date:: Unknown Past Psychological History: Anxiety, Depression Smoking Status: Former smoker Past Alcohol Use History: None Reported Additional Past Alcohol Use History / Comment(s): QUIT SMOKING AT LEAST 11 YRS AGO. Past Drug Use History: None Reported - Past Family History Mother Family Medical History: Cancer Brother(s) Family Medical History: Cancer Additional Family Medical History / Comment(s): Lung cancer. Father History Unknown: Yes Family Medical History: Hyperlipidemia Medications and Allergies Home Medications Medication Instructions Recorded Confirmed Type Ferrous Sulfate [Iron] 325 mg PO DAILY@0800 10/21/20 12/27/22 History Sertraline HCl [Zoloft] 50 mg PO HS 10/21/20 12/27/22 History allopurinoL [Zyloprim] 100 mg PO DAILY@79910/21/20 12/27/22 History risperiDONE [RisperDAL] 0.5 mg PO HS 10/21/20 12/27/22 History Apixaban [Eliquis] 5 mg PO BID@0800,1700 05/09/21 12/27/22 History Thiamine HCl [Vitamin B-1] 100 mg PO DAILY@0800 05/09/21 12/27/22 History Amiodarone [Cordarone] 200 mg PO DAILY@0800 02/06/22 12/27/22 History glipiZIDE [Glucotrol] 5 mg PO BID@0800,1700 02/06/22 12/27/22 History Acetaminophen Tab [Tylenol] 1,000 mg PO TID@0600,1400,2200 10/01/22 12/27/22 History Sacubitril/Valsartan [Entresto 24 1 tab PO BID@0800,1700 10/01/22 12/27/22 History mg-26 mg Tablet] Atorvastatin [Lipitor] 40 mg PO HS 10/16/22 12/27/22 History Clopidogrel [Plavix] 75 mg PO DAILY@0800 10/16/22 12/27/22 History Lidocaine 5% Patch [Lidoderm 5% 1 patch TRANSDERM DAILY 10/17/22 12/27/22 History Patch] Acetaminophen [Tylenol] 650 mg PO Q4H PRN 12/14/22 12/27/22 History Cholecalciferol [Vitamin D3 (25 50 mcg PO DAILY@0800 12/14/22 12/27/22 History Mcg = 1000 Iu)] Cyclobenzaprine [Flexeril] 5 mg PO TID@0600,1400,2200 12/14/22 12/27/22 History Furosemide [Lasix] 40 mg PO BID@0600,1400 12/14/22 12/27/22 History Ipratropium-Albuterol Nebulize 3 ml INHALATION RT-Q6H PRN 12/14/22 12/27/22 History [Duoneb 0.5 mg-3 mg/3 ml Soln] Magnesium Hydroxide [Milk of 7,200 mg PO Q48H PRN 12/14/22 12/27/22 History Magnesia Concentrate] Na Phos,M-B/Na Phos,Di-Ba [Fleet 133 ml RECTAL DAILY PRN 12/14/22 12/27/22 History Adult] Potassium Chloride ER [K-Dur 20] 20 meq PO BID@0800,1700 12/14/22 12/27/22 History Sodium Bicarbonate Tab 650 mg PO BID@0800,1700 12/14/22 12/27/22 History bisacodyL [Dulcolax] 10 mg RECTAL DAILY PRN 12/14/22 12/27/22 History oxyBUTYnin chloride [oxyBUTYnin 5 mg PO DAILY@0800 12/14/22 12/27/22 History chloride ER] Insulin Detemir (Levemir) [Levemir] 10 unit SQ HS each 12/22/22 12/27/22 Rx HYDROcodone/APAP 7.5-325MG [[place] 1 tab PO Q6HR PRN #12 tab 12/23/22 12/27/22 Rx 7.5-325] Budesonide [Pulmicort] 1 mg INHALATION RT-BID@0800,1700 12/27/22 12/27/22 History Ceravite Senior(With Lutein) 1 tab PO DAILY@1700 12/27/22 12/27/22 History Dapagliflozin Propanediol [Farxiga] 10 mg PO DAILY@0800 12/27/22 12/27/22 History Lactobacillus Acidophilus 1 cap PO DAILY@0800 12/27/22 12/27/22 History [Acidophilus Probiotic] Loperamide [Imodium] 2 mg PO DIRECTED PRN 12/27/22 12/27/22 History Metoprolol Succinate (ER) [Toprol 50 mg PO BID@0800,1700 12/27/22 12/27/22 History XL] Pantoprazole [Protonix] 40 mg PO DAILY@0600 12/27/22 12/27/22 History Spironolactone [Aldactone] 25 mg PO DAILY@0800 12/27/22 12/27/22 History metOLazone [Zaroxolyn] 2.5 mg PO DAILY@0800 12/27/22 12/27/22 History Allergies Allergy/AdvReac Type Severity Reaction Status Date / Time No Known Allergies Allergy Verified 12/27/22 21:11 Physical Exam Vitals: Vital Signs Temp Pulse Pulse Pulse Resp BP BP 12/30/22 12:00 97.4 F L 100 24 88/64 12/30/22 11:47 101 H 22 12/30/22 10:30 105 H 27 H 84/66 12/30/22 10:00 102 H 26 H 92/74 12/30/22 09:30 103 H 27 H 97/66 12/30/22 09:00 117 H 25 H 98/66 12/30/22 08:56 106 H 12/30/22 08:35 98.0 F 112 H 27 H 88/64 12/30/22 07:50 98.1 F 124 H 34 H 81/60 12/30/22 05:41 12/30/22 05:27 107 H 75/54 12/30/22 04:14 117 H 101/66 12/30/22 01:07 98 F 102 H 18 100/72 12/30/22 00:27 125 H 84/52 12/29/22 20:38 116 H 12/29/22 20:20 118 H 12/29/22 19:00 98 F 106 H 18 108/72 12/29/22 18:20 98.0 F 118 H 24 118/77 12/29/22 17:11 119 H 102/67 12/29/22 15:57 114 H 90/58 12/29/22 14:42 91/60 12/29/22 14:00 97.6 F 109 H 17 90/61 Pulse Ox 12/30/22 12:00 96 12/30/22 11:47 12/30/22 10:30 98 12/30/22 10:00 97 12/30/22 09:30 98 12/30/22 09:00 98 12/30/22 08:56 12/30/22 08:35 98 12/30/22 07:50 96 12/30/22 05:41 94 L 12/30/22 05:27 12/30/22 04:14 12/30/22 01:07 100 12/30/22 00:27 12/29/22 20:38 12/29/22 20:20 12/29/22 19:00 100 12/29/22 18:20 100 12/29/22 17:11 12/29/22 15:57 12/29/22 14:42 12/29/22 14:00 93 L Intake and Output 12/29/22 12/30/22 12/30/22 22:59 06:59 14:59 Intake Total 1000 Output Total 330 Balance 670 Intake: IV 500 Sodium Chloride 0.9% 1, 500 000 ml @ 125 mls/hr IV . Q8H [facility] Rx#:[id number] Oral 500 Output: Urine 330 Other: Voiding Method Indwelling Catheter Indwelling Catheter # Voids 1 # Bowel Movements 1 Results 12/30/22 09:05 12/30/22 09:05 CBC 12/30/22 Range/Units 09:05 WBC 16.2 H (3.8-10.6) k/uL RBC 2.28 L (4.30-5.90) m/uL Hgb 7.5 L D (13.0-17.5) gm/dL Hct 23.3 L (39.0-53.0) % Plt Count 322 (150-450) k/uL Comprehensive Metabolic Panel 12/29/22 12/30/22 Range/Units 18:05 09:05 Sodium 129 L 132 L (137-145) mmol/L Potassium 3.6 3.8 (3.5-5.1) mmol/L Chloride 97 L 104 (98-107) mmol/L Carbon Dioxide 17 L 14 L (22-30) mmol/L BUN 41 H 43 H (9-20) mg/dL Creatinine 1.31 H 1.54 H (0.66-1.25) mg/dL Glucose 243 H 213 H (74-99) mg/dL Calcium 8.2 L 7.8 L (8.4-10.2) mg/dL Current Medications Generic Name Dose Route Start Last Admin Trade Name Freq PRN Reason Stop Dose Admin Acetaminophen 650 mg 12/27/22 19:44 Acetaminophen Tab 325 Mg Tab PO Q6HR PRN Mild Pain or Fever > 100.5 Albuterol/Ipratropium 3 ml 12/28/22 06:54 12/30/22 08:35 Ipratropium-Albuterol 3 Ml Neb INHALATION 3 ml RT-Q6H PRN Administration COPD Allopurinol 100 mg 12/28/22 08:00 12/30/22 09:17 Allopurinol 100 Mg Tab PO 100 mg DAILY@0800 YESSY Administration Amiodarone HCl 200 mg 12/30/22 21:00 Amiodarone 200 Mg Tab PO BID YESSY Apixaban 5 mg 12/28/22 08:00 12/30/22 09:16 Apixaban 5 Mg Tab PO 5 mg BID@0800,1700 YESSY Administration Protocol Atorvastatin Calcium 40 mg 12/28/22 21:00 12/29/22 20:03 Atorvastatin 40 Mg Tab PO 40 mg HS YESSY Administration Budesonide 1 mg 12/28/22 08:00 12/30/22 08:35 Budesonide 1 Mg/2 Ml Nebu INHALATION 1 mg RT-BID@0800,1700 YESSY Administration Cholecalciferol 50 mcg 12/28/22 08:00 12/30/22 09:17 Cholecalciferol 25 Mcg (1000 Iu) Tablet PO 50 mcg DAILY@0800 YESSY Administration Clopidogrel Bisulfate 75 mg 12/28/22 08:00 12/30/22 09:16 Clopidogrel 75 Mg Tab PO 75 mg DAILY@0800 YESSY Administration Cyclobenzaprine HCl 5 mg 12/28/22 14:00 12/30/22 11:03 Cyclobenzaprine 5 Mg Tab PO 5 mg TID@0600,1400,2200 [facility] Administration Dapagliflozin 10 mg 12/28/22 08:00 12/30/22 11:02 Dapagliflozin Propanediol 10 Mg Tablet PO 10 mg DAILY@0800 YESSY Administration Ferrous Sulfate 325 mg 12/28/22 08:00 12/30/22 09:17 Ferrous Sulfate 325 Mg Tab PO 325 mg DAILY@0800 [facility] Administration Sodium Chloride 1,000 mls @ 125 mls/hr 12/30/22 00:30 12/30/22 09:16 Saline 0.9% IV 125 mls/hr .Q8H YESSY Administration Metronidazole 500 mg/ IV 100 mls @ 100 mls/hr 12/30/22 08:00 12/30/22 09:17 Solution IVPB 100 mls/hr Q8HR [facility] Administration Protocol Insulin Aspart 0 unit 12/28/22 07:30 12/30/22 12:07 Insulin Aspart (Novolog) 100 Unit/Ml Vial SQ 4 unit ACHS [facility] Administration Protocol Insulin Detemir 10 unit 12/28/22 21:00 12/29/22 21:34 Insulin Detemir (Levemir) 100 Unit/Ml Syr SQ 10 unit HS YESSY Administration Lactobacillus Acidophilus 1 each 12/28/22 08:00 12/30/22 09:17 Lactobacillus Acidophilus/Pect 1 Each Capsule PO 1 each DAILY@0800 YESSY Administration Lidocaine 1 patch 12/28/22 09:00 12/30/22 09:16 Lidocaine 5% Patch TOPICAL 1 patch DAILY YESSY Administration Protocol Metoprolol Succinate 50 mg 12/28/22 08:00 12/30/22 11:03 Metoprolol Succinate (Er) 50 Mg Tab.Er.24h PO 50 mg BID@0800,1700 YESSY Administration Multivitamins 1 each 12/28/22 17:00 12/29/22 16:58 Multivitamins, Thera 1 Each Tab PO 1 each DAILY@1700 YESSY Administration Naloxone HCl 0.2 mg 12/27/22 19:44 Naloxone 0.4 Mg/Ml 1 Ml Vial IV Q2M PRN Opioid Reversal Oxybutynin Chloride 5 mg 12/28/22 08:00 12/30/22 11:03 Oxybutynin Xl 5 Mg Tab.Er.24 PO 5 mg DAILY@0800 YESSY Administration Pantoprazole Sodium 40 mg 12/29/22 06:00 12/30/22 09:16 Pantoprazole 40 Mg Tablet PO 40 mg DAILY@0600 YESSY Administration Risperidone 0.5 mg 12/28/22 21:00 12/29/22 20:04 Risperidone 0.5 Mg Tab PO 0.5 mg HS YESSY Administration Sertraline HCl 50 mg 12/28/22 21:00 12/29/22 20:03 Sertraline 50 Mg Tab PO 50 mg HS YESSY Administration Sodium Bicarbonate 650 mg 12/28/22 08:00 12/30/22 09:17 Sodium Bicarbonate Tab 650 Mg Tab PO 650 mg BID@0800,1700 YESSY Administration Sodium Chloride 2 spray 12/30/22 11:09 Sodium Chloride 0.65% Nasal [place] 44 Ml Btl NASAL QID PRN Dry Nasal Passages Thiamine HCl 100 mg 12/28/22 08:00 12/30/22 09:17 Thiamine 100 Mg Tab PO 100 mg DAILY@0800 YESSY Administration Vancomycin HCl 125 mg 12/29/22 09:00 12/30/22 11:03 Vancomycin 125 Mg Capsule PO 01/08/23 09:01 125 mg QID YESSY Administration Protocol Intake and Output 12/29/22 12/30/22 12/30/22 22:59 06:59 14:59 Intake Total 1000 Output Total 330 Balance 670 Intake: IV 500 Sodium Chloride 0.9% 1, 500 000 ml @ 125 mls/hr IV . Q8H [facility] Rx#:[id number] Oral 500 Output: Urine 330 Other: Voiding Method Indwelling Catheter Indwelling Catheter # Voids 1 # Bowel Movements 1 12/30/22 09:05 12/30/22 09:05
[2022-12-30 16:14] LABS: Glucose,Whole Blood 191 mg/dL (70-110)
[2022-12-30] MEDS: MULTIVITAMINS, THERA 1 EACH TAB PO SCH (16:59)
[2022-12-30 21:12] LABS: Glucose,Whole Blood 202 mg/dL (70-110)
[2022-12-30] MEDS: ATORVASTATIN 40 MG TAB PO SCH (21:19)
[2022-12-30] MEDS: SERTRALINE 50 MG TAB PO SCH (21:56)
[2022-12-30] MEDS: INSULIN DETEMIR (LEVEMIR) 100 UNIT/ML SYR SQ SCH (21:56)
[2022-12-30] MEDS: risperiDONE 0.5 MG TAB PO SCH (21:56)
[2022-12-31] MEDS ORDERED: SODIUM CHLORIDE 0.9% 1,000 ML IV ONE (00:49)
[2022-12-31] MEDS: NOREPINEPHRINE 4 MG in SODIUM CHLORIDE 0.9% 250 ML IV SCH (02:18)
[2022-12-31 04:18] LABS: Anisocytosis Slight; Basophils % (A) 0 %; Eosinophils # (A) 0.1 k/uL (0-0.7); Eosinophils % (A) 1 %; HCT 22.6 % (39.0-53.0); HGB 7.2 gm/dL (13.0-17.5); Hypochromasia Marked; Lymphocytes # (A) 0.6 k/uL (1.0-4.8); Lymphocytes % (A) 5 %; MCH 32.5 pg (25.0-35.0); MCHC 31.6 g/dL (31.0-37.0); MCV 102.9 fL (80.0-100.0); Macrocytosis Moderate; Mean Platelet Volume 8.8; Monocytes % (A) 8 %; Neutrophils # (A) 9.9 k/uL (1.3-7.7); Neutrophils % (A) 84 %; Platelet Count 250 k/uL (150-450); Poikilocytosis Moderate; RDW 18.6 % (11.5-15.5); WBC 11.8 k/uL (3.8-10.6)
[2022-12-31 05:00] LABS: African American GFR (CKD) 49 (>60 ml/min/1.73 sqM); Blood Urea Nitrogen 45 mg/dL (9-20); Calcium 7.8 mg/dL (8.4-10.2); Carbon Dioxide 16 mmol/L (22-30); Glucose 144 mg/dL (74-99); Magnesium 2.2 mg/dL (1.6-2.3); Non-African American GFR(CKD) 43 (>60 ml/min/1.73 sqM)
[2022-12-31 05:04] LABS: Anion Gap 11 mmol/L; Chloride 105 mmol/L (98-107); Potassium 3.5 mmol/L (3.5-5.1); Sodium 132 mmol/L (137-145)
[2022-12-31] MEDS: PANTOPRAZOLE 40 MG TABLET PO SCH (06:15)
[2022-12-31] MEDS: CYCLOBENZAPRINE 5 MG TAB PO SCH ×3 (06:15→21:02)
[2022-12-31] MEDS: POTASSIUM CHLORIDE 10 MEQ in WATER FOR INJECTION 1 100ML.BAG IVPB SCH ×4 (06:16→14:29)
[2022-12-31 06:29] LABS: Glucose,Whole Blood 160 mg/dL (70-110)
[2022-12-31] MEDS: INSULIN ASPART (NovoLOG) 100 UNIT/ML VIAL SQ SCH ×4 (06:31→21:03)
[2022-12-31] MEDS ORDERED: Potassium Replacement Protocol 1 EACH MISC MISCELLANE PRN (07:00)
--- NOTE | 2022-12-31 07:41 | XR ---
EXAMINATION TYPE: XR chest 1V DATE OF EXAM: 12/31/2022 4:41 AM CLINICAL INDICATION:Male, 72 years old with history of CHF/COPD; COMPARISON: Chest radiographs from 12/30/2022 TECHNIQUE: XR chest 1V Frontal view of the chest. FINDINGS: Lungs/Pleura: No evidence of focal consolidation or pneumothorax. Blunting of the costophrenic angles is present. Pulmonary vascularity: Mild pulmonary vascular congestion. Heart/mediastinum: Cardiomediastinal silhouette is enlarged and stable. Two lead cardiac conduction d evice overlying the left hemithorax with lead tips projecting over the right ventricle and right atri um. Musculoskeletal: No acute osseous pathology. There is fixation hardware is present which appears inta ct. Vertebroplasty changes also present.. IMPRESSION: Cardiomegaly, pulmonary vascular congestion and bilateral pleural effusions. Correlate with BNP for c ongestive heart failure.
[2022-12-31] MEDS: IPRATROPIUM-ALBUTEROL 3 ML NEB INHALATION PRN ×2 (08:06→20:26)
[2022-12-31] MEDS: BUDESONIDE 1 MG/2 ML NEBU INHALATION SCH ×2 (08:06→20:26)
[2022-12-31] MEDS: allopurinoL 100 MG TAB PO SCH (08:24)
[2022-12-31] MEDS: metroNIDAZOLE-NS PMX 500 MG in SALINE 1 100ML.BAG IVPB SCH ×3 (08:25→23:31)
[2022-12-31] MEDS: VANCOMYCIN 125 MG CAPSULE PO SCH ×4 (08:25→21:02)
[2022-12-31] MEDS: CHOLECALCIFEROL 25 MCG (1000 IU) TABLET PO SCH (08:25)
[2022-12-31] MEDS: CLOPIDOGREL 75 MG TAB PO SCH (08:25)
[2022-12-31] MEDS: AMIODARONE 200 MG TAB PO SCH ×2 (08:25→21:03)
[2022-12-31] MEDS: DAPAGLIFLOZIN PROPANEDIOL 10 MG TABLET PO SCH (08:25)
[2022-12-31] MEDS: SODIUM BICARBONATE TAB 650 MG TAB PO SCH ×2 (08:25→15:35)
[2022-12-31] MEDS: THIAMINE 100 MG TAB PO SCH (08:25)
[2022-12-31] MEDS: APIXABAN 5 MG TAB PO SCH ×2 (08:25→15:36)
[2022-12-31] MEDS: METOPROLOL SUCCINATE (ER) 50 MG TAB.ER.24H PO SCH ×2 (08:25→15:35)
[2022-12-31] MEDS: LIDOCAINE 5% PATCH TOPICAL SCH (08:25)
[2022-12-31] MEDS: FERROUS SULFATE 325 MG TAB PO SCH (08:25)
[2022-12-31] MEDS: OXYBUTYNIN XL 5 MG TAB.ER.24 PO SCH (08:25)
[2022-12-31] MEDS: LACTOBACILLUS ACIDOPHILUS/PECT 1 EACH CAPSULE PO SCH (08:25)
[2022-12-31] MEDS: SODIUM CHLORIDE 0.9% 1,000 ML IV SCH (08:26)
--- NOTE | 2022-12-31 09:27 | P.PN ---
Subjective Progress Note Date: 12/31/22 This is a 72-year-old male patient who is being seen in the intensive care unit for hypotension C. diff colitis. The patient overnight became hypotensive and was given a total of 2 L of normal saline. He was having also issues with atrial fibrillation with rapid ventricular response. Because of all these issues, the patient got transferred to the intensive care unit. The patient is known to our services. The patient was in the hospital treated for acute hypoxic respiratory failure due to CHF and he was discharged home on 12/23/2022. Note that during his early hospitalization, the patient was septic with Proteus mirabilis and this was thought to be related to urinary tract infection and seco ndary septicemia. During his earlier admission, the patient also had an acute kidney injury and the creatinine was as high as 1.9 and subsequently dropped to 1.2 prior to his discharged. He is known to systolic heart failure with an ejection fraction of 35%. He has a combination of comorbidities including coronary artery disease, previous PCI, and is also diabetic, has previous history of chronic atrial fibrillation, has history of non-sustained ventricle tachycardia and he has an AICD in place. He has hypertension hyperlipidemia and is also obese with a BMI of 36. The patient was hospital was because of C. diff colitis and this has been confirmed. Stool for C. diff has been positive. The patient is currently on IV Flagyl and oral vancomycin 125 mg by mouth 4 times a day. Lactic acid level peaked at 2.1 and up to 1.7. Based on his underlying diarrhea, the patient is having a component of melena negative metabolic acidosis. Serum bicarbs at 17. BUN is at 41 with a creatinine of 1.3 and a sodium level is at 129. He is currently on oral bicarb. Is also on normal saline running at 125 cc an hour. He remains in atrial fibrillation. He is currently on amiodarone 200 mg by mouth once a day and is also metoprolol 50 mg twice a day. Is also limited on multiple anticoagulation with Eliquis. He is taking Plavix. Is also on Levemir insulin 10 units for blood sugar control. His white cell cause of 9.7. Is currently on oxygen at 3 L nasal cannula. His chest x-ray shows no acute abnormalities. He has an AICD in place. No signs of any heart failure. He does have a compression fracture in his thoracic spine and he has undergone a kyphoplasty and he also has postop changes involving the thoracic spine including a medical place to stabilize the spine. He is curren tly afebrile. He still having frequent liquidy bowel movements related to his undergoing C. diff colitis. His UA was abnormal at the time of admission. Nevertheless, the urine cultures are still negative. He has a Jacobs catheter in place. Today's evaluation of 12/31/2022, the patient looks alert and awake. No nausea, no emesis, he had 2 episodes of diarrhea yesterday, none for this morning. He remains on oral vancomycin and IV Flagyl. No fever or chills. The white cell count is improving. He is also given fluids in the form of normal saline at 125 mL an hour. His blood pressure is stable. He remains in atrial fibrillation. Rate is under better control. He remains on a combination of amiodarone and metoprolol for rate control. His Toprol was increased up to 50 mg twice a day and his amiodarone was also increased at 200 mg twice a day. He remains on anticoagulation. Hemoglobin is stable at 7.2. Creatinine is stable at 1.5 with a BUN of 45 and a sodium level is at 142. The chest x-ray from today is showing no changes compared to yesterday. No signs of any fluid overload. Jacobs catheter is in place. The patient has adequate urine output. He remains on oxygen at 3 L. Objective - Vital Signs Vital signs: Vital Signs Temp 98.4 F 12/31/22 08:00 Pulse 105 H 12/31/22 09:00 Resp 28 H 12/31/22 09:00 BP 94/82 12/31/22 09:00 Pulse Ox 99 12/31/22 09:00 FiO2 Intake & Output 12/30/22 12/31/22 12/31/22 18:59 06:59 18:59 Intake Total 1750 2544.281 592 Output Total 480 395 105 Balance 1270 2149.281 487 Weight 110.3 kg Intake: IV 1250 2500 474 Potassium Chloride 10 meq 100 In Water For Injection 1 100ml.bag @ 100 mls/hr IVPB Q1HR [facility] Rx#: [id number] Sodium Chloride 0.9% 1, 1250 1500 374 000 ml @ 125 mls/hr IV . Q8H [facility] Rx#:[id number] Sodium Chloride 0.9% 1, 1000 000 ml @ 999 mls/hr IV . Q1H1M [facility] Rx#:[id number] Intake, IV Titration 44.281 Amount Norepinephrine 4 mg In 44.281 Sodium Chloride 0.9% 250 ml @ 0.03 MCG/KG/MIN 11. 468 mls/hr IV .Q22H9M [facility] Rx#:[id number] Oral 500 118 Output: Urine 480 395 105 Other: Voiding Method Indwelling Catheter Indwelling Catheter Indwelling Catheter - Exam General: nontoxic, no distress, appears at stated age, currently on 2 L of oxygen nasal cannula Derm: warm, dry Head: atraumatic, normocephalic, symmetric Eyes: EOMI, no lid lag, anicteric sclera, pupils equal round reactive to light ENT: Nose and ears atraumatic Neck: No thyromegaly, supple Mouth: no lip lesion, mucus membranes moist Cardiovascular: S1S2 irregular, tachycardic, no murmur, no edema, the patient has an AICD in place Lungs: clear to auscultation bilateral, no rhonchi, no rales, no wheeze, no accessory muscle use Abdominal: soft, tender to palpation lower abdomen, no guarding, no appreciable organomegaly, Jacobs catheter present Ext: no gross muscle atrophy, strength 3/5 in lower extremities, no contractures Neuro: CN II-XII grossly intact Psych: Alert, oriented, appropriate affect - Labs CBC & Chem 7: 12/31/22 04:10 12/31/22 04:10 Labs: Abnormal Lab Results - Last 24 Hours (Table) 12/30/22 12/30/22 12/30/22 Range/Units 09:05 09:05 16:12 WBC 16.2 H (3.8-10.6) k/uL RBC 2.28 L (4.30-5.90) m/uL Hgb 7.5 L D (13.0-17.5) gm/dL Hct 23.3 L (39.0-53.0) % MCV 102.1 H (80.0-100.0) fL RDW 18.9 H (11.5-15.5) % Neutrophils # 14.2 H (1.3-7.7) k/uL Lymphocytes # 0.7 L (1.0-4.8) k/uL Sodium 132 L (137-145) mmol/L Carbon Dioxide 14 L (22-30) mmol/L BUN 43 H (9-20) mg/dL Creatinine 1.54 H (0.66-1.25) mg/dL Glucose 213 H (74-99) mg/dL POC Glucose (mg/dL) 191 H (70-110) mg/dL Calcium 7.8 L (8.4-10.2) mg/dL 12/30/22 12/31/22 12/31/22 Range/Units 21:10 04:10 04:10 WBC 11.8 H (3.8-10.6) k/uL RBC 2.20 L (4.30-5.90) m/uL Hgb 7.2 L (13.0-17.5) gm/dL Hct 22.6 L (39.0-53.0) % MCV 102.9 H (80.0-100.0) fL RDW 18.6 H (11.5-15.5) % Neutrophils # 9.9 H (1.3-7.7) k/uL Lymphocytes # 0.6 L (1.0-4.8) k/uL Sodium 132 L (137-145) mmol/L Carbon Dioxide 16 L (22-30) mmol/L BUN 45 H (9-20) mg/dL Creatinine 1.59 H (0.66-1.25) mg/dL Glucose 144 H (74-99) mg/dL POC Glucose (mg/dL) 202 H (70-110) mg/dL Calcium 7.8 L (8.4-10.2) mg/dL 12/31/22 Range/Units 06:27 WBC (3.8-10.6) k/uL RBC (4.30-5.90) m/uL Hgb (13.0-17.5) gm/dL Hct (39.0-53.0) % MCV (80.0-100.0) fL RDW (11.5-15.5) % Neutrophils # (1.3-7.7) k/uL Lymphocytes # (1.0-4.8) k/uL Sodium (137-145) mmol/L Carbon Dioxide (22-30) mmol/L BUN (9-20) mg/dL Creatinine (0.66-1.25) mg/dL Glucose (74-99) mg/dL POC Glucose (mg/dL) 160 H (70-110) mg/dL Calcium (8.4-10.2) mg/dL Microbiology - Last 24 Hours (Table) 12/27/22 17:00 Blood Culture - Preliminary Blood 12/27/22 16:49 Blood Culture - Preliminary Blood 12/28/22 21:23 Urine Culture - Final Urine,Voided Assessment and Plan Plan: Hypotension, likely secondary to intravascular depletion investigation with diarrhea and C. diff colitis, currently receiving IV fluids with normal saline at the rate of 125 mL an hour. The patient also received a total of 2 L of bolus. He is on no pressors, and subsequently, the patient's blood pressure improved and the patient currently is hemodynamically stable with normal saline running at the rate of 125 mL an hour. IV fluids can be gradually cut down as the patient is not having any massive diarrhea this point in time and his been adequately resuscitated with fluids. C. diff colitis, antibiotic induced currently on accommodation Flagyl and vancomycin. Noted the patient was treated with Unasyn during his earlier hospit alization and the patient was discharged home on oral Ceftin Recent hospitalization for urinary tract infection with Proteus mirabilis and secondary septicemia Hyponatremia secondary to diarrhea, improved and the sodium level is up to 142 Non-anion gap metabolic acidosis secondary to diarrhea, bicarb level is at 16 and the patient is currently on oral bicarbonate Acute kidney injury possibly with a component of chronic kidney disease, stage II to 3 Chronic ischemic cardiomyopathy with an ejection fraction of 35% along with moderate mitral regurgitation and tricuspid regurgitation mother did reveal pulmonary hypertension Coronary artery disease with previous PCI Diabetes mellitus type 2 History of nonsustained VT and the patient has an AICD in place Diabetes mellitus type 2 Hypertension Hyperlipidemia Obesity with a BMI of 36 Anemia of chronic disease Plan Continue with normal saline at the rate of 50 mL an hour Monitor diarrhea Continue Flagyl and oral vancomycin Diarrhea is subsiding Monitor electrolytes. We'll repeat electrolytes today and replace accordingly Increase amiodarone to 200 mg twice a day and increase the metoprolol up to 50 mg twice a day BP stable Continue anticoagulation with Eliquis Continue Levemir insulin 10 units along with a sinus care coverage, and the patient is also on Farxiga 10 mg by mouth daily Watch for any signs of fluid overload. The patient has no signs of decompensated heart failure at this point and the patient remains on 2 L of oxygen by nasal cannula Monitor renal function Continue Plavix No need for pressors at this point in time Patient is having a regular diet Continue oral bicarb supplements We'll continue to follow
--- NOTE | 2022-12-31 10:20 | P.PN ---
Subjective Patient is pleasant 72-year-old male with history of persistent atrial fibrillation, CAD with prior PCI, systolic heart failure, VT status post AICD, diabetes mellitus type 2, hypertension, hyperlipidemia. Patient presents from extended care facility secondary to diarrhea. Prior echo from September 2022 shows ejection fraction 35-40%. He was recently here 2 weeks ago with urinary tract infection and confusion. He was discharged to his extended care facility and had diarrhea and found to have C. diff colitis. He has been treated on the general medical floor however developed worsened hypotension as well as worsened tachycardia and therefore transferred to ICU. His amiodarone was increased at 200 mg twice a day. Heart rates mainly in the 110s to 120s. He has been given IV fluid bolus with some mild improvement in blood pressures mainly 90s over 70s with adequate map. He denies any chest pain or pressure. Admits to good appetite. Denies any shortness of breath. He was given 2 L of fluids with drop in hemoglobin originally 11.1 likely some component of hemoconcentration with more baseline 8 and hemoglobin has dropped down to 7.5 this morning. No active bleeding. He follows in the office with Dr. Van. 12/31 Patient seen and examined. Patient denies any chest pain or pressure. Metoprolol and amiodarone were increased yesterday and heart rates predominantly 90s to low 100s. He was briefly on norepinephrine however this has been discontinued this morning. Still having some diarrhea. PHYSICAL EXAMINATION Vital signs reviewed. CONSTITUTIONAL: No apparent distress, confused HEENT: Head is normocephalic. Pupils are equal, round. Sclerae anicteric. Mucous membranes of the mouth are moist. No JVD. No carotid bruit. CHEST EXAMINATION: Lungs are clear to auscultation. No chest wall tenderness is noted on palpation or with deep breathing. HEART EXAMINATION: Regular rate and rhythm. S1, S2 heard. No murmurs, gallops or rub. ABDOMEN: Soft, nontender. Positive bowel sounds. EXTREMITIES: 2+ peripheral pulses, 2+ lower extremity edema and no calf tenderness. NEUROLOGIC EXAMINATION: Patient is awake, alert and oriented x3. ASSESSMENT 1. Chronic systolic heart failure 2. Shock likely mainly from sepsis 3. Cdiff 4. Persistent A. fib with RVR 5. History of Hypertension 6. Cardiomyopathy ejection fraction 35-40% 7. History of coronary artery disease 8. Urinary tract infection 9. Acute kidney injury PLAN Continue with Toprol which was increased to 50 mg twice a day and increased dose of amiodarone 200 mg twice a day for now. Does not currently appear volume overloaded. Continue with gentle hydration, monitor ins and outs and diarrhea. Heart rates likely will improve once sepsis improves. Objective - Vital Signs Vital signs: Vital Signs Temp 98.4 F 12/31/22 08:00 Pulse 105 H 12/31/22 09:00 Resp 28 H 12/31/22 09:00 BP 94/82 12/31/22 09:00 Pulse Ox 99 12/31/22 09:00 FiO2 Intake & Output 12/30/22 12/31/22 12/31/22 18:59 06:59 18:59 Intake Total 1750 2544.281 592 Output Total 480 395 105 Balance 1270 2149.281 487 Weight 110.3 kg Intake: IV 1250 2500 474 Potassium Chloride 10 meq 100 In Water For Injection 1 100ml.bag @ 100 mls/hr IVPB Q1HR [facility] Rx#: [id number] Sodium Chloride 0.9% 1, 1250 1500 374 000 ml @ 125 mls/hr IV . Q8H [facility] Rx#:[id number] Sodium Chloride 0.9% 1, 1000 000 ml @ 999 mls/hr IV . Q1H1M [facility] Rx#:[id number] Intake, IV Titration 44.281 Amount Norepinephrine 4 mg In 44.281 Sodium Chloride 0.9% 250 ml @ 0.03 MCG/KG/MIN 11. 468 mls/hr IV .Q22H9M [facility] Rx#:[id number] Oral 500 118 Output: Urine 480 395 105 Other: Voiding Method Indwelling Catheter Indwelling Catheter Indwelling Catheter - Labs CBC & Chem 7: 12/31/22 04:10 12/31/22 04:10 Labs: Abnormal Lab Results - Last 24 Hours (Table) 12/30/22 12/30/22 12/30/22 Range/Units 09:05 16:12 21:10 WBC (3.8-10.6) k/uL RBC (4.30-5.90) m/uL Hgb (13.0-17.5) gm/dL Hct (39.0-53.0) % MCV (80.0-100.0) fL RDW (11.5-15.5) % Neutrophils # (1.3-7.7) k/uL Lymphocytes # (1.0-4.8) k/uL Sodium 132 L (137-145) mmol/L Carbon Dioxide (22-30) mmol/L BUN (9-20) mg/dL Creatinine (0.66-1.25) mg/dL Glucose (74-99) mg/dL POC Glucose (mg/dL) 191 H 202 H (70-110) mg/dL Calcium (8.4-10.2) mg/dL 12/31/22 12/31/22 12/31/22 Range/Units 04:10 04:10 06:27 WBC 11.8 H (3.8-10.6) k/uL RBC 2.20 L (4.30-5.90) m/uL Hgb 7.2 L (13.0-17.5) gm/dL Hct 22.6 L (39.0-53.0) % MCV 102.9 H (80.0-100.0) fL RDW 18.6 H (11.5-15.5) % Neutrophils # 9.9 H (1.3-7.7) k/uL Lymphocytes # 0.6 L (1.0-4.8) k/uL Sodium 132 L (137-145) mmol/L Carbon Dioxide 16 L (22-30) mmol/L BUN 45 H (9-20) mg/dL Creatinine 1.59 H (0.66-1.25) mg/dL Glucose 144 H (74-99) mg/dL POC Glucose (mg/dL) 160 H (70-110) mg/dL Calcium 7.8 L (8.4-10.2) mg/dL Microbiology - Last 24 Hours (Table) 12/27/22 17:00 Blood Culture - Preliminary Blood 12/27/22 16:49 Blood Culture - Preliminary Blood 12/28/22 21:23 Urine Culture - Final Urine,Voided
[2022-12-31 11:59] LABS: Glucose,Whole Blood 160 mg/dL (70-110)
[2022-12-31] MEDS: MULTIVITAMINS, THERA 1 EACH TAB PO SCH (15:47)
[2022-12-31 17:53] LABS: Glucose,Whole Blood 366 mg/dL (70-110)
--- NOTE | 2022-12-31 19:08 | P.PN ---
Subjective Progress Note Date: 12/31/22 Patient is a 72-year-old male with systolic CHF, A. fib on Eliquis, CAD status post stents, COPD, type 2 diabetes, and hypertension who presented from rehab with atrial fibrillation with RVR and hypotension. Patient was recently admitted for Proteus bacteremia and was on antibiotics. In the ED his vitals were within normal limits. Chest x-ray independently interpreted, shows mild interstitial opacities. WBC 15.4, hemoglobin 11.1, sodium 135, bicarb 21, anion gap 14, BUN 40, creatinine 1.34 at baseline, glucose 114, troponin negative, TSH mildly elevated at 4.9, urinalysis shows large leukocyte esterase, negative nitrates. Patient was admitted for atrial fibrillation with RVR. He received 1 dose of IV metoprolol and was conitnued on his home amio. Found to be C. difficile positive. Urinary catheter was exchanged. Started on oral vancomycin. Patient became hypotensive, requiring IV fluids. He required transfer to the ICU. Also on IV Flagyl. Cardiology and pulmonology following. Patient seen and examined at bedside. He complains of some tightness in his arms bilateral, mild sob, he is still having loose stools. Per nursing only 2 stools overnight and on minimal pressors. Vital signs reviewed General: nontoxic, no distress, appears at stated age Cardiovascular: S1S2 reg, no murmur, positive posterior tibial pulse bilateral, Lungs: Course bs bilateral, no rhonchi, no rales , no accessory muscle use Abdominal: soft, nontender to palpation, no guarding, no appreciable organomegaly Ext: no gross muscle atrophy, no edema b/l lower extremities, 1+ b/l upper extremity edema, no contractures Neuro: CN II-XI grossly intact, no focal neuro deficits Psych: Alert, oriented, appropriate affect Assessment/Plan: C diff colitis with eptic shock Recently treated proteus bacteremia Acute kidney injury on CKD stage III Metabolic acidosis Mild hyponatremia Acute on chronic Anemia od chronic disease related to CKD -IV Flagyl 500 mg every 8 hours D # 2, vancomycin 125 mg oral 4 times daily D # 3 -Wean norepinephrine as able -Aldactone, entresto, Lasix on hold due to acute kidney injury - follow BP, avoid nephrotoxic agents - repeat BMP and CBC in AM -Pulmonary consultation review: Pressors as needed -IV fluids with normal saline at 125 MLS per hour Type 2 DM, insulin dependent -Sliding-scale insulin -Levemir 10 units at night -Farxiga 10 mg daily -Follow blood sugars -Glipizide on hold - A1C 6.2 Atrial fibrillation with rapid ventricular response Chronic systolic CHF with EF 35-40% CAD -Cardiology note reviewed from 12/30. Continue with metoprolol 50 mg twice daily, amiodarone 200 mg twice daily -Eliquis 5 mg twice daily -Plavix 75 mg daily -Toprol 50 mg twice daily, amiodarone 200 mg twice daily Resolved: Hypokalemia, resolved Hypomagnesemia resolved Indwelling Jacobs catheter present on admission, exchanged Imaging: Chest x-ray as reviewed by myself reviewed by myself shows increased pulmonary vasculature bilaterally with mild fluid accumulation in the minor fissure CT abdomen and pelvis: Proctocolitis, persistent urinary bladder wall thickening Data Review: Labs reviewed today include CBC and basic metabolic profile as well as magnesium troponin which were remarkable for white blood cell count 11.8, hemoglobin 7.2, sodium 132, carbon dioxide 16, BUN 45, creatinine 1.59 DVT prophylaxis: Eliquis Anticipated discharge date: Pending Clinical Course Anticipated discharge place: Pending Clinical Course This dictation was prepared using [employer] voice recognition software. Though every attempt is made to correct errors during dictation some may still exist. Objective - Vital Signs Vital signs: Vital Signs Temp 97.9 F 12/31/22 04:00 Pulse 90 12/31/22 07:00 Resp 23 12/31/22 07:00 BP 92/59 12/31/22 07:00 Pulse Ox 100 12/31/22 07:00 FiO2 Intake & Output 12/30/22 12/31/22 12/31/22 18:59 06:59 18:59 Intake Total 1750 2544.281 124 Output Total 480 395 35 Balance 1270 2149.281 89 Weight 110.3 kg Intake: IV 1250 2500 124 Sodium Chloride 0.9% 1, 1250 1500 124 000 ml @ 125 mls/hr IV . Q8H [facility] Rx#:[id number] Sodium Chloride 0.9% 1, 1000 000 ml @ 999 mls/hr IV . Q1H1M [facility] Rx#:[id number] Intake, IV Titration 44.281 Amount Norepinephrine 4 mg In 44.281 Sodium Chloride 0.9% 250 ml @ 0.03 MCG/KG/MIN 11. 468 mls/hr IV .Q22H9M [facility] Rx#:[id number] Oral 500 Output: Urine 480 395 35 Other: Voiding Method Indwelling Catheter Indwelling Catheter - Labs CBC & Chem 7: 12/31/22 04:10 12/31/22 04:10 Labs: Abnormal Lab Results - Last 24 Hours (Table) 12/30/22 12/30/22 12/30/22 Range/Units 08:12 08:37 09:05 WBC 16.2 H (3.8-10.6) k/uL RBC 2.28 L (4.30-5.90) m/uL Hgb 7.5 L D (13.0-17.5) gm/dL Hct 23.3 L (39.0-53.0) % MCV 102.1 H (80.0-100.0) fL RDW 18.9 H (11.5-15.5) % Neutrophils # 14.2 H (1.3-7.7) k/uL Lymphocytes # 0.7 L (1.0-4.8) k/uL Sodium (137-145) mmol/L Carbon Dioxide (22-30) mmol/L BUN (9-20) mg/dL Creatinine (0.66-1.25) mg/dL Glucose (74-99) mg/dL POC Glucose (mg/dL) 173 H 198 H (70-110) mg/dL Calcium (8.4-10.2) mg/dL 12/30/22 12/30/22 12/30/22 Range/Units 09:05 16:12 21:10 WBC (3.8-10.6) k/uL RBC (4.30-5.90) m/uL Hgb (13.0-17.5) gm/dL Hct (39.0-53.0) % MCV (80.0-100.0) fL RDW (11.5-15.5) % Neutrophils # (1.3-7.7) k/uL Lymphocytes # (1.0-4.8) k/uL Sodium 132 L (137-145) mmol/L Carbon Dioxide 14 L (22-30) mmol/L BUN 43 H (9-20) mg/dL Creatinine 1.54 H (0.66-1.25) mg/dL Glucose 213 H (74-99) mg/dL POC Glucose (mg/dL) 191 H 202 H (70-110) mg/dL Calcium 7.8 L (8.4-10.2) mg/dL 12/31/22 12/31/22 12/31/22 Range/Units 04:10 04:10 06:27 WBC 11.8 H (3.8-10.6) k/uL RBC 2.20 L (4.30-5.90) m/uL Hgb 7.2 L (13.0-17.5) gm/dL Hct 22.6 L (39.0-53.0) % MCV 102.9 H (80.0-100.0) fL RDW 18.6 H (11.5-15.5) % Neutrophils # 9.9 H (1.3-7.7) k/uL Lymphocytes # 0.6 L (1.0-4.8) k/uL Sodium 132 L (137-145) mmol/L Carbon Dioxide 16 L (22-30) mmol/L BUN 45 H (9-20) mg/dL Creatinine 1.59 H (0.66-1.25) mg/dL Glucose 144 H (74-99) mg/dL POC Glucose (mg/dL) 160 H (70-110) mg/dL Calcium 7.8 L (8.4-10.2) mg/dL Microbiology - Last 24 Hours (Table) 12/27/22 17:00 Blood Culture - Preliminary Blood 12/27/22 16:49 Blood Culture - Preliminary Blood 12/28/22 21:23 Urine Culture - Final Urine,Voided
[2022-12-31 20:40] LABS: Glucose,Whole Blood 185 mg/dL (70-110)
[2022-12-31] MEDS: SERTRALINE 50 MG TAB PO SCH (21:02)
[2022-12-31] MEDS: risperiDONE 0.5 MG TAB PO SCH (21:02)
[2022-12-31] MEDS: ATORVASTATIN 40 MG TAB PO SCH (21:03)
[2022-12-31] MEDS: INSULIN DETEMIR (LEVEMIR) 100 UNIT/ML SYR SQ SCH (21:03)
[2023-01-01] MEDS: NOREPINEPHRINE 4 MG in SODIUM CHLORIDE 0.9% 250 ML IV SCH (04:13)
[2023-01-01] MEDS: SODIUM CHLORIDE 0.9% 1,000 ML IV SCH ×2 (04:14→23:08)
[2023-01-01 06:08] LABS: Anisocytosis Slight; Basophils % (A) 0 %; Eosinophils # (A) 0.2 k/uL (0-0.7); Eosinophils % (A) 2 %; HCT 21.8 % (39.0-53.0); Hypochromasia Marked; Lymphocytes # (A) 0.8 k/uL (1.0-4.8); Lymphocytes % (A) 8 %; MCH 32.6 pg (25.0-35.0); MCHC 31.3 g/dL (31.0-37.0); MCV 104.1 fL (80.0-100.0); Macrocytosis Marked; Mean Platelet Volume 7.8; Monocytes # (A) 0.6 k/uL (0-1.0); Monocytes % (A) 6 %; Neutrophils # (A) 7.8 k/uL (1.3-7.7); Neutrophils % (A) 82 %; Platelet Count 244 k/uL (150-450); Poikilocytosis Moderate; RBC 2.09 m/uL (4.30-5.90); RDW 18.8 % (11.5-15.5); WBC 9.5 k/uL (3.8-10.6)
[2023-01-01 06:15] LABS: African American GFR (CKD) 53 (>60 ml/min/1.73 sqM); Anion Gap 11 mmol/L; Blood Urea Nitrogen 43 mg/dL (9-20); Calcium 7.8 mg/dL (8.4-10.2); Carbon Dioxide 15 mmol/L (22-30); Chloride 109 mmol/L (98-107); Glucose 117 mg/dL (74-99); Non-African American GFR(CKD) 45 (>60 ml/min/1.73 sqM); Potassium 3.4 mmol/L (3.5-5.1); Sodium 135 mmol/L (137-145)
[2023-01-01 06:16] LABS: Glucose,Whole Blood 144 mg/dL (70-110)
[2023-01-01] MEDS: INSULIN ASPART (NovoLOG) 100 UNIT/ML VIAL SQ SCH ×4 (06:20→20:43)
[2023-01-01 06:30] LABS: HGB 6.8 gm/dL (13.0-17.5)
[2023-01-01] MEDS: CYCLOBENZAPRINE 5 MG TAB PO SCH ×3 (06:50→20:44)
[2023-01-01] MEDS: PANTOPRAZOLE 40 MG TABLET PO SCH (06:50)
--- NOTE | 2023-01-01 06:51 | XR ---
EXAMINATION TYPE: XR chest 1V DATE OF EXAM: 01/01/2023 5:16 AM COMPARISON: Chest radiographs from 12/31/2022 TECHNIQUE: XR chest 1V Frontal view of the chest. CLINICAL INDICATION:Male, 72 years old with history of CHF/COPD; FINDINGS: Patient is rotated which limits evaluation. Lungs/Pleura: There is no evidence of pleural effusion, focal consolidation, or pneumothorax. Pulmonary vascularity: Unremarkable. Heart/mediastinum: Cardiomediastinal silhouette is enlarged and stable. Atherosclerotic calcificatio ns are seen in the aorta. Two lead cardiac conduction device overlying the left hemithorax with lead tips projecting over the right ventricle and right atrium. Musculoskeletal: No acute osseous pathology. Fixation hardware with vertebroplasty changes involving the mid thoracic spine redemonstrated. IMPRESSION: Chronic changes without evidence for acute process.
[2023-01-01] MEDS: SODIUM BICARBONATE TAB 650 MG TAB PO SCH ×2 (08:24→16:54)
[2023-01-01] MEDS: FERROUS SULFATE 325 MG TAB PO SCH (08:24)
[2023-01-01] MEDS: AMIODARONE 200 MG TAB PO SCH ×2 (08:24→20:43)
[2023-01-01] MEDS: allopurinoL 100 MG TAB PO SCH (08:24)
[2023-01-01] MEDS: LACTOBACILLUS ACIDOPHILUS/PECT 1 EACH CAPSULE PO SCH (08:24)
[2023-01-01] MEDS: THIAMINE 100 MG TAB PO SCH (08:25)
[2023-01-01] MEDS: APIXABAN 5 MG TAB PO SCH ×2 (08:25→16:54)
[2023-01-01] MEDS: LIDOCAINE 5% PATCH TOPICAL SCH (08:25)
[2023-01-01] MEDS: CLOPIDOGREL 75 MG TAB PO SCH (08:25)
[2023-01-01] MEDS: CHOLECALCIFEROL 25 MCG (1000 IU) TABLET PO SCH (08:25)
[2023-01-01] MEDS: VANCOMYCIN 125 MG CAPSULE PO SCH ×4 (08:27→20:43)
[2023-01-01] MEDS: METOPROLOL SUCCINATE (ER) 50 MG TAB.ER.24H PO SCH ×2 (08:27→16:57)
[2023-01-01] MEDS: DAPAGLIFLOZIN PROPANEDIOL 10 MG TABLET PO SCH (08:28)
[2023-01-01] MEDS: metroNIDAZOLE-NS PMX 500 MG in SALINE 1 100ML.BAG IVPB SCH ×3 (08:29→23:06)
[2023-01-01] MEDS: OXYBUTYNIN XL 5 MG TAB.ER.24 PO SCH (08:29)
[2023-01-01] MEDS: IPRATROPIUM-ALBUTEROL 3 ML NEB INHALATION PRN ×2 (08:42→16:20)
[2023-01-01] MEDS: BUDESONIDE 1 MG/2 ML NEBU INHALATION SCH ×2 (08:43→16:21)
--- NOTE | 2023-01-01 09:43 | P.PN ---
Subjective Progress Note Date: 01/01/23 This is a 72-year-old male patient who is being seen in the intensive care unit for hypotension C. diff colitis. The patient overnight became hypotensive and was given a total of 2 L of normal saline. He was having also issues with atrial fibrillation with rapid ventricular response. Because of all these issues, the patient got transferred to the intensive care unit. The patient is known to our services. The patient was in the hospital treated for acute hypoxic respiratory failure due to CHF and he was discharged home on 12/23/2022. Note that during his early hospitalization, the patient was septic with Proteus mirabilis and this was thought to be related to urinary tract infection and seco ndary septicemia. During his earlier admission, the patient also had an acute kidney injury and the creatinine was as high as 1.9 and subsequently dropped to 1.2 prior to his discharged. He is known to systolic heart failure with an ejection fraction of 35%. He has a combination of comorbidities including coronary artery disease, previous PCI, and is also diabetic, has previous history of chronic atrial fibrillation, has history of non-sustained ventricle tachycardia and he has an AICD in place. He has hypertension hyperlipidemia and is also obese with a BMI of 36. The patient was hospital was because of C. diff colitis and this has been confirmed. Stool for C. diff has been positive. The patient is currently on IV Flagyl and oral vancomycin 125 mg by mouth 4 times a day. Lactic acid level peaked at 2.1 and up to 1.7. Based on his underlying diarrhea, the patient is having a component of melena negative metabolic acidosis. Serum bicarbs at 17. BUN is at 41 with a creatinine of 1.3 and a sodium level is at 129. He is currently on oral bicarb. Is also on normal saline running at 125 cc an hour. He remains in atrial fibrillation. He is currently on amiodarone 200 mg by mouth once a day and is also metoprolol 50 mg twice a day. Is also limited on multiple anticoagulation with Eliquis. He is taking Plavix. Is also on Levemir insulin 10 units for blood sugar control. His white cell cause of 9.7. Is currently on oxygen at 3 L nasal cannula. His chest x-ray shows no acute abnormalities. He has an AICD in place. No signs of any heart failure. He does have a compression fracture in his thoracic spine and he has undergone a kyphoplasty and he also has postop changes involving the thoracic spine including a medical place to stabilize the spine. He is curren tly afebrile. He still having frequent liquidy bowel movements related to his undergoing C. diff colitis. His UA was abnormal at the time of admission. Nevertheless, the urine cultures are still negative. He has a Jacobs catheter in place. Today's evaluation of 12/31/2022, the patient looks alert and awake. No nausea, no emesis, he had 2 episodes of diarrhea yesterday, none for this morning. He remains on oral vancomycin and IV Flagyl. No fever or chills. The white cell count is improving. He is also given fluids in the form of normal saline at 125 mL an hour. His blood pressure is stable. He remains in atrial fibrillation. Rate is under better control. He remains on a combination of amiodarone and metoprolol for rate control. His Toprol was increased up to 50 mg twice a day and his amiodarone was also increased at 200 mg twice a day. He remains on anticoagulation. Hemoglobin is stable at 7.2. Creatinine is stable at 1.5 with a BUN of 45 and a sodium level is at 142. The chest x-ray from today is showing no changes compared to yesterday. No signs of any fluid overload. Jacobs catheter is in place. The patient has adequate urine output. He remains on oxygen at 3 L. On 01/01/2023, the patient continues to be treated for C. diff colitis. He remains on oral vancomycin and IV Flagyl. He had only one liquidy bowel movements since yesterday. As such, the colitis is settling down. No nausea. No abdominal pain. Does not look toxic at all. The white cell count is up to 9.5. At the same time, the patient had drop in hemoglobin down to 6.8. No evidence of any bleeding. He is on anticoagulation with Eliquis. He will be given a unit of packed RBC. Meanwhile, he remains on normal saline at rate of 50. His BUN is at 43 with a creatinine of 1.5. The patient's serum bicarbs of 15 and a sodium level is at 135. His cardiac rhythm is controlled and atrial fibrillation. No hypotension. No pressors for now. He has taken metoprolol 50 mg by mouth twice a day and amiodarone 200 mg by mouth twice a day. He is on oral bicarb 650 mg twice a day. He is on Levemir insulin along with Farxiga. No other issues otherwise for now. He remains on oxygen at 3 L. Objective - Vital Signs Vital signs: Vital Signs Temp 98.0 F 01/01/23 04:00 Pulse 105 H 01/01/23 08:54 Resp 21 01/01/23 07:00 BP 89/57 01/01/23 07:00 Pulse Ox 95 01/01/23 08:46 FiO2 Intake & Output 12/31/22 01/01/23 01/01/23 18:59 06:59 18:59 Intake Total 1674.965 875 Output Total 920 730 Balance 754.965 145 Weight 113 kg Intake: IV 1549 875 Potassium Chloride 10 meq 800 100 In Water For Injection 1 100ml.bag @ 100 mls/hr IVPB Q1HR YESSY Rx#: [id number] Sodium Chloride 0.9% 1, 649 575 000 ml @ 50 mls/hr IV . Q20H YESSY Rx#:[id number] metroNIDAZOLE-NS PMX 500 100 200 mg In Saline 1 100ml.bag @ 100 mls/hr IVPB Q8HR YESSY Rx#:[id number] Intake, IV Titration 7.965 Amount Norepinephrine 4 mg In 7.965 Sodium Chloride 0.9% 250 ml @ 0.03 MCG/KG/MIN 11. 468 mls/hr IV .Q22H9M YESSY Rx#:[id number] Oral 118 Output: Urine 920 730 Other: Voiding Method Indwelling Catheter Indwelling Catheter - Exam General: nontoxic, no distress, appears at stated age, currently on 2 L of oxygen nasal cannula Derm: warm, dry Head: atraumatic, normocephalic, symmetric Eyes: EOMI, no lid lag, anicteric sclera, pupils equal round reactive to light ENT: Nose and ears atraumatic Neck: No thyromegaly, supple Mouth: no lip lesion, mucus membranes moist Cardiovascular: S1S2 irregular, tachycardic, no murmur, no edema, the patient has an AICD in place Lungs: clear to auscultation bilateral, no rhonchi, no rales, no wheeze, no accessory muscle use Abdominal: soft, tender to palpation lower abdomen, no guarding, no appreciable organomegaly, Jacobs catheter present Ext: no gross muscle atrophy, strength 3/5 in lower extremities, no contractures Neuro: CN II-XII grossly intact Psych: Alert, oriented, appropriate affect - Labs CBC & Chem 7: 01/01/23 05:22 01/01/23 05:22 Labs: Abnormal Lab Results - Last 24 Hours (Table) 12/31/22 12/31/22 12/31/22 Range/Units 11:57 17:51 20:38 RBC (4.30-5.90) m/uL Hgb (13.0-17.5) gm/dL Hct (39.0-53.0) % MCV (80.0-100.0) fL RDW (11.5-15.5) % Neutrophils # (1.3-7.7) k/uL Lymphocytes # (1.0-4.8) k/uL Macrocytosis Sodium (137-145) mmol/L Potassium (3.5-5.1) mmol/L Chloride (98-107) mmol/L Carbon Dioxide (22-30) mmol/L BUN (9-20) mg/dL Creatinine (0.66-1.25) mg/dL Glucose (74-99) mg/dL POC Glucose (mg/dL) 160 H 366 H 185 H (70-110) mg/dL Calcium (8.4-10.2) mg/dL Crossmatch 01/01/23 01/01/23 01/01/23 Range/Units 05:22 05:22 06:15 RBC 2.09 L (4.30-5.90) m/uL Hgb 6.8 L* (13.0-17.5) gm/dL Hct 21.8 L (39.0-53.0) % MCV 104.1 H (80.0-100.0) fL RDW 18.8 H (11.5-15.5) % Neutrophils # 7.8 H (1.3-7.7) k/uL Lymphocytes # 0.8 L (1.0-4.8) k/uL Macrocytosis Marked A Sodium 135 L (137-145) mmol/L Potassium 3.4 L (3.5-5.1) mmol/L Chloride 109 H (98-107) mmol/L Carbon Dioxide 15 L (22-30) mmol/L BUN 43 H (9-20) mg/dL Creatinine 1.51 H (0.66-1.25) mg/dL Glucose 117 H (74-99) mg/dL POC Glucose (mg/dL) 144 H (70-110) mg/dL Calcium 7.8 L (8.4-10.2) mg/dL Crossmatch 01/01/23 Range/Units 07:01 RBC (4.30-5.90) m/uL Hgb (13.0-17.5) gm/dL Hct (39.0-53.0) % MCV (80.0-100.0) fL RDW (11.5-15.5) % Neutrophils # (1.3-7.7) k/uL Lymphocytes # (1.0-4.8) k/uL Macrocytosis Sodium (137-145) mmol/L Potassium (3.5-5.1) mmol/L Chloride (98-107) mmol/L Carbon Dioxide (22-30) mmol/L BUN (9-20) mg/dL Creatinine (0.66-1.25) mg/dL Glucose (74-99) mg/dL POC Glucose (mg/dL) (70-110) mg/dL Calcium (8.4-10.2) mg/dL Crossmatch See Detail Assessment and Plan Plan: Hypotension, likely secondary to intravascular depletion investigation with diarrhea and C. diff colitis, currently normotensive and hemodynamically stable C. diff colitis, antibiotic induced currently on accommodation Flagyl and vancomycin. Noted the patient was treated with Unasyn during his earlier hospitalization and the patient was discharged home on oral Ceftin , improving and the patient remains on IV Flagyl and oral vancomycin Leukocytosis, improving Recent hospitalization for urinary tract infection with Proteus mirabilis and secondary septicemia Hyponatremia secondary to diarrhea, improved and the sodium level is up to 135 Non-anion gap metabolic acidosis secondary to diarrhea, bicarb level is at 16 and the patient is currently on oral bicarbonate Acute kidney injury possibly with a component of chronic kidney disease, stage II to 3 Chronic ischemic cardiomyopathy with an ejection fraction of 35% along with moderate mitral regurgitation and tricuspid regurgitation mother did reveal pulmonary hypertension Coronary artery disease with previous PCI Diabetes mellitus type 2 History of nonsustained VT and the patient has an AICD in place Diabetes mellitus type 2 Hypertension Hyperlipidemia Obesity with a BMI of 36 Anemia of chronic disease Plan Continue with normal saline at the rate of 50 mL an hour Monitor diarrhea, improving Continue Flagyl and oral vancomycin Diarrhea is subsiding amiodarone to 200 mg twice a day and increase the metoprolol up to 50 mg twice a day BP stable Continue anticoagulation with Eliquis Check serum iron and give the patient units of packed RBC, may need IV iron supplementation the serum iron is also low Continue Levemir insulin 10 units along with a sinus care coverage, and the patient is also on Farxiga 10 mg by mouth daily Watch for any signs of fluid overload. The patient has no signs of decompensated heart failure at this point and the patient remains on 2 L of oxygen by nasal cannula Monitor renal function Continue Plavix No need for pressors at this point in time Patient is having a regular diet Continue oral bicarb supplements Consults physical therapy We'll continue to follow
[2023-01-01] MEDS: POTASSIUM CHLORIDE ER 20 MEQ TAB.ER PO SCH ×2 (09:52→11:23)
[2023-01-01 10:08] VITALS: BMI 37.8
[2023-01-01 11:20] LABS: Glucose,Whole Blood 195 mg/dL (70-110)
--- NOTE | 2023-01-01 16:46 | P.PN ---
Subjective Progress Note Date: 01/01/23 Patient is a 72-year-old male with systolic CHF, A. fib on Eliquis, CAD status post stents, COPD, type 2 diabetes, and hypertension who presented from rehab with atrial fibrillation with RVR and hypotension. Patient was recently admitted for Proteus bacteremia and was on antibiotics. In the ED his vitals were within normal limits. Chest x-ray independently interpreted, shows mild interstitial opacities. WBC 15.4, hemoglobin 11.1, sodium 135, bicarb 21, anion gap 14, BUN 40, creatinine 1.34 at baseline, glucose 114, troponin negative, TSH mildly elevated at 4.9, urinalysis shows large leukocyte esterase, negative nitrates. Patient was admitted for atrial fibrillation with RVR. He received 1 dose of IV metoprolol and was conitnued on his home amio. Found to be C. difficile positive. Urinary catheter was exchanged. Started on oral vancomycin. Patient became hypotensive, requiring IV fluids. He required transfer to the ICU. Also on IV Flagyl. Cardiology and pulmonology following. His stools have been slowing down. He was able to wean off of vasopressors on 12/31. Patient seen and examined at bedside. States that his stools are happening less often but continue the liquid. He denies any unusual chest pain or shortness of breath. He is feeling very tired. Per nursing only 2 stools overnight and on minimal pressors. Vital signs reviewed General: nontoxic, no distress, appears at stated age Cardiovascular: S1S2 reg, no murmur, positive posterior tibial pulse bilateral, Lungs: Course bs bilateral, no rhonchi, no rales , no accessory muscle use Abdominal: soft, nontender to palpation, no guarding, no appreciable organomegaly Ext: no gross muscle atrophy, no edema b/l lower extremities, 1+ b/l upper extremity edema, no contractures Neuro: CN II-XI grossly intact, no focal neuro deficits Psych: Alert, oriented, appropriate affect Assessment/Plan: C diff colitis with septic shock Recently treated proteus bacteremia Acute kidney injury on CKD stage III Metabolic acidosis Mild hyponatremia Acute on chronic Anemia od chronic disease related to CKD -IV Flagyl 500 mg every 8 hours D # 3, vancomycin 125 mg oral 4 times daily D # 4 -Aldactone, entresto, Lasix on hold due to acute kidney injury - follow BP, avoid nephrotoxic agents - repeat BMP and CBC in AM -IV fluids with normal saline at 50 MLS per hour -Pulmonary note reviewed: Continue with normal saline and antibiotics. Type 2 DM, insulin dependent -Sliding-scale insulin -Levemir 10 units at night -Farxiga 10 mg daily -Follow blood sugars -Glipizide on hold - A1C 6.2 Acute on chronic anemia -1 unit pRBCs - Baseline Hgb 8-9 - repeat CBC in AM Atrial fibrillation with rapid ventricular response Chronic systolic CHF with EF 35-40% CAD -Eliquis 5 mg twice daily -Plavix 75 mg daily -Toprol 50 mg twice daily, amiodarone 200 mg twice daily Resolved: Hypokalemia, resolved Hypomagnesemia resolved Indwelling Jacobs catheter present on admission, exchanged Imaging: Chest x-ray as reviewed by myself with increased vascular markings. Hospital Course: Chest x-ray ncreased pulmonary vasculature bilaterally with mild fluid accumulation in the minor fissure CT abdomen and pelvis: Proctocolitis, persistent urinary bladder wall thickening Data Review: Labs reviewed from today include CBC and basic metabolic profile reviewed and remarkable for potassium 3.4, Co2 15, Na 135, Cr 1.51, BUN 43, HgB 6.8 DVT prophylaxis: Eliquis Anticipated discharge date: Pending Clinical Course Anticipated discharge place: Pending Clinical Course This dictation was prepared using [employer] voice recognition software. Though every attempt is made to correct errors during dictation some may still exist. Objective - Vital Signs Vital signs: Vital Signs Temp 98.0 F 01/01/23 04:00 Pulse 96 01/01/23 07:00 Resp 21 01/01/23 07:00 BP 89/57 01/01/23 07:00 Pulse Ox 98 01/01/23 07:00 FiO2 Intake & Output 12/31/22 01/01/23 01/01/23 18:59 06:59 18:59 Intake Total 1674.965 875 Output Total 920 730 Balance 754.965 145 Weight 113 kg Intake: IV 1549 875 Potassium Chloride 10 meq 800 100 In Water For Injection 1 100ml.bag @ 100 mls/hr IVPB Q1HR YESSY Rx#: [id number] Sodium Chloride 0.9% 1, 649 575 000 ml @ 50 mls/hr IV . Q20H YESSY Rx#:[id number] metroNIDAZOLE-NS PMX 500 100 200 mg In Saline 1 100ml.bag @ 100 mls/hr IVPB Q8HR YESSY Rx#:[id number] Intake, IV Titration 7.965 Amount Norepinephrine 4 mg In 7.965 Sodium Chloride 0.9% 250 ml @ 0.03 MCG/KG/MIN 11. 468 mls/hr IV .Q22H9M YESSY Rx#:[id number] Oral 118 Output: Urine 920 730 Other: Voiding Method Indwelling Catheter Indwelling Catheter - Labs CBC & Chem 7: 01/01/23 05:22 01/01/23 05:22 Labs: Abnormal Lab Results - Last 24 Hours (Table) 12/31/22 12/31/22 12/31/22 Range/Units 11:57 17:51 20:38 RBC (4.30-5.90) m/uL Hgb (13.0-17.5) gm/dL Hct (39.0-53.0) % MCV (80.0-100.0) fL RDW (11.5-15.5) % Macrocytosis Sodium (137-145) mmol/L Potassium (3.5-5.1) mmol/L Chloride (98-107) mmol/L Carbon Dioxide (22-30) mmol/L BUN (9-20) mg/dL Creatinine (0.66-1.25) mg/dL Glucose (74-99) mg/dL POC Glucose (mg/dL) 160 H 366 H 185 H (70-110) mg/dL Calcium (8.4-10.2) mg/dL 01/01/23 01/01/23 01/01/23 Range/Units 05:22 05:22 06:15 RBC 2.09 L (4.30-5.90) m/uL Hgb 6.8 L* (13.0-17.5) gm/dL Hct 21.8 L (39.0-53.0) % MCV 104.1 H (80.0-100.0) fL RDW 18.8 H (11.5-15.5) % Macrocytosis Marked A Sodium 135 L (137-145) mmol/L Potassium 3.4 L (3.5-5.1) mmol/L Chloride 109 H (98-107) mmol/L Carbon Dioxide 15 L (22-30) mmol/L BUN 43 H (9-20) mg/dL Creatinine 1.51 H (0.66-1.25) mg/dL Glucose 117 H (74-99) mg/dL POC Glucose (mg/dL) 144 H (70-110) mg/dL Calcium 7.8 L (8.4-10.2) mg/dL
[2023-01-01] MEDS: MULTIVITAMINS, THERA 1 EACH TAB PO SCH (16:54)
[2023-01-01 17:06] LABS: Glucose,Whole Blood 200 mg/dL (70-110)
[2023-01-01 17:32] LABS: % Iron Saturation 24.69 (15.00-50.00)
[2023-01-01 20:37] LABS: Glucose,Whole Blood 249 mg/dL (70-110)
[2023-01-01] MEDS: risperiDONE 0.5 MG TAB PO SCH (20:43)
[2023-01-01] MEDS: ATORVASTATIN 40 MG TAB PO SCH (20:43)
[2023-01-01] MEDS: INSULIN DETEMIR (LEVEMIR) 100 UNIT/ML SYR SQ SCH (20:43)
[2023-01-01] MEDS: SERTRALINE 50 MG TAB PO SCH (20:43)
[2023-01-02 03:57] LABS: Anisocytosis Slight; HCT 28.1 % (39.0-53.0); Hypochromasia Marked; MCHC 30.8 g/dL (31.0-37.0); MCV 103.7 fL (80.0-100.0); Macrocytosis Moderate; Platelet Count 283 k/uL (150-450); Poikilocytosis Moderate; RBC 2.71 m/uL (4.30-5.90); RDW 18.2 % (11.5-15.5); WBC 13.1 k/uL (3.8-10.6)
[2023-01-02 04:05] LABS: HGB 8.7 gm/dL (13.0-17.5)
[2023-01-02 04:56] LABS: African American GFR (CKD) 70 (>60 ml/min/1.73 sqM); Anion Gap 14 mmol/L; Blood Urea Nitrogen 39 mg/dL (9-20); Calcium 8.3 mg/dL (8.4-10.2); Carbon Dioxide 12 mmol/L (22-30); Chloride 112 mmol/L (98-107); Glucose 121 mg/dL (74-99); Magnesium 2.1 mg/dL (1.6-2.3); Non-African American GFR(CKD) 61 (>60 ml/min/1.73 sqM); Potassium 3.6 mmol/L (3.5-5.1); Sodium 138 mmol/L (137-145)
[2023-01-02] MEDS: CYCLOBENZAPRINE 5 MG TAB PO SCH ×3 (05:51→20:30)
[2023-01-02] MEDS: PANTOPRAZOLE 40 MG TABLET PO SCH (05:51)
[2023-01-02 06:13] LABS: Glucose,Whole Blood 124 mg/dL (70-110)
[2023-01-02] MEDS: INSULIN ASPART (NovoLOG) 100 UNIT/ML VIAL SQ SCH ×4 (06:15→20:30)
[2023-01-02] MEDS ORDERED: SODIUM BICARB 8.4% 50 ML SYR (1 MEQ/ML) IV STA (08:04)
--- NOTE | 2023-01-02 08:08 | P.PN ---
Subjective Progress Note Date: 01/02/23 This is a 72-year-old male patient who is being seen in the intensive care unit for hypotension C. diff colitis. The patient overnight became hypotensive and was given a total of 2 L of normal saline. He was having also issues with atrial fibrillation with rapid ventricular response. Because of all these issues, the patient got transferred to the intensive care unit. The patient is known to our services. The patient was in the hospital treated for acute hypoxic respiratory failure due to CHF and he was discharged home on 12/23/2022. Note that during his early hospitalization, the patient was septic with Proteus mirabilis and this was thought to be related to urinary tract infection and seco ndary septicemia. During his earlier admission, the patient also had an acute kidney injury and the creatinine was as high as 1.9 and subsequently dropped to 1.2 prior to his discharged. He is known to systolic heart failure with an ejection fraction of 35%. He has a combination of comorbidities including coronary artery disease, previous PCI, and is also diabetic, has previous history of chronic atrial fibrillation, has history of non-sustained ventricle tachycardia and he has an AICD in place. He has hypertension hyperlipidemia and is also obese with a BMI of 36. The patient was hospital was because of C. diff colitis and this has been confirmed. Stool for C. diff has been positive. The patient is currently on IV Flagyl and oral vancomycin 125 mg by mouth 4 times a day. Lactic acid level peaked at 2.1 and up to 1.7. Based on his underlying diarrhea, the patient is having a component of melena negative metabolic acidosis. Serum bicarbs at 17. BUN is at 41 with a creatinine of 1.3 and a sodium level is at 129. He is currently on oral bicarb. Is also on normal saline running at 125 cc an hour. He remains in atrial fibrillation. He is currently on amiodarone 200 mg by mouth once a day and is also metoprolol 50 mg twice a day. Is also limited on multiple anticoagulation with Eliquis. He is taking Plavix. Is also on Levemir insulin 10 units for blood sugar control. His white cell cause of 9.7. Is currently on oxygen at 3 L nasal cannula. His chest x-ray shows no acute abnormalities. He has an AICD in place. No signs of any heart failure. He does have a compression fracture in his thoracic spine and he has undergone a kyphoplasty and he also has postop changes involving the thoracic spine including a medical place to stabilize the spine. He is curren tly afebrile. He still having frequent liquidy bowel movements related to his undergoing C. diff colitis. His UA was abnormal at the time of admission. Nevertheless, the urine cultures are still negative. He has a Jacobs catheter in place. Today's evaluation of 12/31/2022, the patient looks alert and awake. No nausea, no emesis, he had 2 episodes of diarrhea yesterday, none for this morning. He remains on oral vancomycin and IV Flagyl. No fever or chills. The white cell count is improving. He is also given fluids in the form of normal saline at 125 mL an hour. His blood pressure is stable. He remains in atrial fibrillation. Rate is under better control. He remains on a combination of amiodarone and metoprolol for rate control. His Toprol was increased up to 50 mg twice a day and his amiodarone was also increased at 200 mg twice a day. He remains on anticoagulation. Hemoglobin is stable at 7.2. Creatinine is stable at 1.5 with a BUN of 45 and a sodium level is at 142. The chest x-ray from today is showing no changes compared to yesterday. No signs of any fluid overload. Jacobs catheter is in place. The patient has adequate urine output. He remains on oxygen at 3 L. On 01/01/2023, the patient continues to be treated for C. diff colitis. He remains on oral vancomycin and IV Flagyl. He had only one liquidy bowel movements since yesterday. As such, the colitis is settling down. No nausea. No abdominal pain. Does not look toxic at all. The white cell count is up to 9.5. At the same time, the patient had drop in hemoglobin down to 6.8. No evidence of any bleeding. He is on anticoagulation with Eliquis. He will be given a unit of packed RBC. Meanwhile, he remains on normal saline at rate of 50. His BUN is at 43 with a creatinine of 1.5. The patient's serum bicarbs of 15 and a sodium level is at 135. His cardiac rhythm is controlled and atrial fibrillation. No hypotension. No pressors for now. He has taken metoprolol 50 mg by mouth twice a day and amiodarone 200 mg by mouth twice a day. He is on oral bicarb 650 mg twice a day. He is on Levemir insulin along with Farxiga. No other issues otherwise for now. He remains on oxygen at 3 L. 01/02/2023, the patient is awake and having breakfast this morning. He has a weak appetite. He had 2 bowel movements yesterday that was liquidy and is still having some episodes of diarrhea. No nausea. No vomiting. No abdominal pain. No leukocytosis. He remains on a combination of IV Flagyl and oral vancomycin. His BUN is at 39 with a creatinine of 1.1. His hemoglobin dropped down to 6.8 yesterday and based on that the patient was given units of packed RBC and a follow-up hemoglobin is at 8.7. No evidence of any GI bleed. I kept his anticoagulants for now. He remained nature fibrillation. He days hemodynamically stable. IV fluids are running at KVO. Creatinine is down to 1.1 with a BUN of 39, sodium level is at 138, the risk was at 13.1. He remains on 3 L of oxygen by nasal cannula. His calm and comfortable. No significant respiratory distress. He is still having a component of melena negative metabolic acidosis related to his diarrhea. He was given oral bicarb. Nevertheless, his serum bicarb continues to drop it is currently down to 12. He is awake and alert. He is communicating. No other new complaints. No pressors. He remains on Levemir insulin and Farxiga. Right calf Objective - Vital Signs Vital signs: Vital Signs Temp 97.8 F 01/01/23 19:59 Pulse 104 H 01/01/23 19:59 Resp 18 01/01/23 19:59 BP 128/82 01/01/23 19:59 Pulse Ox 100 01/01/23 19:59 FiO2 Intake & Output 01/01/23 01/02/23 01/02/23 18:59 06:59 18:59 Intake Total 703 Output Total 555 Balance 148 Weight 113 kg 111.1 kg Intake: IV 400 Sodium Chloride 0.9% 1, 300 000 ml @ 50 mls/hr IV . Q20H YESSY Rx#:[id number] metroNIDAZOLE-NS PMX 500 100 mg In Saline 1 100ml.bag @ 100 mls/hr IVPB Q8HR YESSY Rx#:[id number] Blood Product 303 Rc Pheresis 2 As3 Unit 303 [id number] Output: Urine 555 Other: Voiding Method Indwelling Catheter Indwelling Catheter - Exam General: nontoxic, no distress, appears at stated age, currently on 2 L of oxygen nasal cannula Derm: warm, dry Head: atraumatic, normocephalic, symmetric Eyes: EOMI, no lid lag, anicteric sclera, pupils equal round reactive to light ENT: Nose and ears atraumatic Neck: No thyromegaly, supple Mouth: no lip lesion, mucus membranes moist Cardiovascular: S1S2 irregular, tachycardic, no murmur, no edema, the patient has an AICD in place Lungs: clear to auscultation bilateral, no rhonchi, no rales, no wheeze, no accessory muscle use Abdominal: soft, tender to palpation lower abdomen, no guarding, no appreciable organomegaly, Jacobs catheter present Ext: no gross muscle atrophy, strength 3/5 in lower extremities, no contractures Neuro: CN II-XII grossly intact Psych: Alert, oriented, appropriate affect - Labs CBC & Chem 7: 01/02/23 03:36 01/02/23 03:36 Labs: Abnormal Lab Results - Last 24 Hours (Table) 01/01/23 01/01/23 01/01/23 Range/Units 05:22 05:22 07:01 WBC (3.8-10.6) k/uL RBC (4.30-5.90) m/uL Hgb (13.0-17.5) gm/dL Hct (39.0-53.0) % MCV (80.0-100.0) fL MCHC (31.0-37.0) g/dL RDW (11.5-15.5) % Neutrophils # 7.8 H (1.3-7.7) k/uL Lymphocytes # 0.8 L (1.0-4.8) k/uL Chloride (98-107) mmol/L Carbon Dioxide (22-30) mmol/L BUN (9-20) mg/dL Glucose (74-99) mg/dL POC Glucose (mg/dL) (70-110) mg/dL Calcium (8.4-10.2) mg/dL Iron 40 L (65-175) UG/DL TIBC 162 L (228-460) UG/DL Transferrin 116.0 L (204.0-354.0) mg/dL Crossmatch See Detail 01/01/23 01/01/23 01/01/23 Range/Units 11:18 17:04 20:35 WBC (3.8-10.6) k/uL RBC (4.30-5.90) m/uL Hgb (13.0-17.5) gm/dL Hct (39.0-53.0) % MCV (80.0-100.0) fL MCHC (31.0-37.0) g/dL RDW (11.5-15.5) % Neutrophils # (1.3-7.7) k/uL Lymphocytes # (1.0-4.8) k/uL Chloride (98-107) mmol/L Carbon Dioxide (22-30) mmol/L BUN (9-20) mg/dL Glucose (74-99) mg/dL POC Glucose (mg/dL) 195 H 200 H 249 H (70-110) mg/dL Calcium (8.4-10.2) mg/dL Iron (65-175) UG/DL TIBC (228-460) UG/DL Transferrin (204.0-354.0) mg/dL Crossmatch 01/02/23 01/02/23 01/02/23 Range/Units 03:36 03:36 06:12 WBC 13.1 H (3.8-10.6) k/uL RBC 2.71 L (4.30-5.90) m/uL Hgb 8.7 L D (13.0-17.5) gm/dL Hct 28.1 L (39.0-53.0) % MCV 103.7 H (80.0-100.0) fL MCHC 30.8 L (31.0-37.0) g/dL RDW 18.2 H (11.5-15.5) % Neutrophils # (1.3-7.7) k/uL Lymphocytes # (1.0-4.8) k/uL Chloride 112 H (98-107) mmol/L Carbon Dioxide 12 L (22-30) mmol/L BUN 39 H (9-20) mg/dL Glucose 121 H (74-99) mg/dL POC Glucose (mg/dL) 124 H (70-110) mg/dL Calcium 8.3 L (8.4-10.2) mg/dL Iron (65-175) UG/DL TIBC (228-460) UG/DL Transferrin (204.0-354.0) mg/dL Crossmatch Microbiology - Last 24 Hours (Table) 12/27/22 17:00 Blood Culture - Final Blood 12/27/22 16:49 Blood Culture - Final Blood Assessment and Plan Plan: Hypotension, likely secondary to intravascular depletion investigation with diarrhea and C. diff colitis, currently normotensive and hemodynamically stable C. diff colitis, antibiotic induced currently on accommodation Flagyl and vancomycin. Noted the patient was treated with Unasyn during his earlier hospitalization and the patient was discharged home on oral Ceftin , improving and the patient remains on IV Flagyl and oral vancomycin Leukocytosis, improving Recent hospitalization for urinary tract infection with Proteus mirabilis and secondary septicemia Hyponatremia secondary to diarrhea, improved and the sodium level is up to 138 Non-anion gap metabolic acidosis secondary to diarrhea, bicarb level is at 12 and the patient is currently on oral bicarbonate Acute kidney injury possibly with a component of chronic kidney disease, stage II to 3 Chronic ischemic cardiomyopathy with an ejection fraction of 35% along with moderate mitral regurgitation and tricuspid regurgitation mother did reveal pulmonary hypertension Coronary artery disease with previous PCI Diabetes mellitus type 2 History of nonsustained VT and the patient has an AICD in place Diabetes mellitus type 2 Hypertension Hyperlipidemia Obesity with a BMI of 36 Anemia of chronic disease Plan Give the patient a total of 2 ampules of sodium bicarb , Continue oral bicarb supplements Give the patient Lasix 40 mg IV push 2 doses over 12 hours as the patient has some third spacing and increased edema in all 4 extremities The patient was given units of packed RBC yesterday and hemoglobin is stable for now Give IV iron 3 Monitor diarrhea Continue Flagyl and oral vancomycin Continue Plavix and Eliquis amiodarone to 200 mg twice a day and increase the metoprolol up to 50 mg twice a day BP stable Check serum iron and give the patient units of packed RBC, may need IV iron supplementation the serum iron is also low Continue Levemir insulin 10 units along with a sinus care coverage, and the patient is also on Farxiga 10 mg by mouth daily Monitor renal function, improved No need for pressors at this point in time Patient is having a regular diet Consults physical therapy We'll continue to follow
[2023-01-02] MEDS ORDERED: Potassium Replacement Protocol 1 EACH MISC MISCELLANE PRN (08:09)
[2023-01-02] MEDS ORDERED: DEXTROSE 5% IN WATER 1,000 ML with SODIUM BICARB (1 MEQ/ML) 150 ML IV SCH (08:15)
[2023-01-02] MEDS ORDERED: SODIUM FERRIC GLUCONAT-SUCROSE 125 MG in SODIUM CHLORIDE 0.9% 100 ML IVPB SCH (09:00)
[2023-01-02] MEDS ORDERED: POTASSIUM CHLORIDE ER 20 MEQ TAB.ER PO SCH (09:00)
[2023-01-02] MEDS: BUDESONIDE 1 MG/2 ML NEBU INHALATION SCH ×3 (09:17→20:11)
[2023-01-02] MEDS: APIXABAN 5 MG TAB PO SCH ×2 (09:41→18:30)
[2023-01-02] MEDS: metroNIDAZOLE-NS PMX 500 MG in SALINE 1 100ML.BAG IVPB SCH ×3 (09:41→23:59)
[2023-01-02] MEDS: allopurinoL 100 MG TAB PO SCH (09:42)
[2023-01-02] MEDS: CHOLECALCIFEROL 25 MCG (1000 IU) TABLET PO SCH (09:42)
[2023-01-02] MEDS: DAPAGLIFLOZIN PROPANEDIOL 10 MG TABLET PO SCH (09:42)
[2023-01-02] MEDS: CLOPIDOGREL 75 MG TAB PO SCH (09:43)
[2023-01-02] MEDS: SODIUM BICARBONATE TAB 650 MG TAB PO SCH ×2 (09:43→18:30)
[2023-01-02] MEDS: VANCOMYCIN 125 MG CAPSULE PO SCH ×4 (09:43→20:29)
[2023-01-02] MEDS: METOPROLOL SUCCINATE (ER) 50 MG TAB.ER.24H PO SCH ×2 (09:43→18:30)
[2023-01-02] MEDS: THIAMINE 100 MG TAB PO SCH (09:44)
[2023-01-02] MEDS: LACTOBACILLUS ACIDOPHILUS/PECT 1 EACH CAPSULE PO SCH (09:44)
[2023-01-02] MEDS: FUROSEMIDE 10 MG/ML 4 ML VIAL IV SCH ×2 (09:44→20:30)
[2023-01-02] MEDS: OXYBUTYNIN XL 5 MG TAB.ER.24 PO SCH (09:44)
[2023-01-02] MEDS: AMIODARONE 200 MG TAB PO SCH ×2 (09:44→20:30)
[2023-01-02] MEDS: FERROUS SULFATE 325 MG TAB PO SCH (09:44)
[2023-01-02] MEDS: LIDOCAINE 5% PATCH TOPICAL SCH (09:45)
[2023-01-02] MEDS: IPRATROPIUM-ALBUTEROL 3 ML NEB INHALATION PRN ×2 (10:30→18:39)
[2023-01-02 11:10] LABS: Glucose,Whole Blood 199 mg/dL (70-110)
--- NOTE | 2023-01-02 14:45 | P.PN ---
Subjective Progress Note Date: 01/02/23 (delayed charting seen at 0900) Patient is a 72-year-old male with systolic CHF, A. fib on Eliquis, CAD status post stents, COPD, type 2 diabetes, and hypertension who presented from rehab with atrial fibrillation with RVR and hypotension. Patient was recently admitted for Proteus bacteremia and was on antibiotics. In the ED his vitals were within normal limits. Chest x-ray independently interpreted, shows mild interstitial opacities. WBC 15.4, hemoglobin 11.1, sodium 135, bicarb 21, anion gap 14, BUN 40, creatinine 1.34 at baseline, glucose 114, troponin negative, TSH mildly elevated at 4.9, urinalysis shows large leukocyte esterase, negative nitrates. Patient was admitted for atrial fibrillation with RVR. He received 1 dose of IV metoprolol and was conitnued on his home amio. Found to be C. difficile positive. Urinary catheter was exchanged. Started on oral vancomycin . Patient became hypotensive, requiring IV fluids. He required transfer to the ICU. Also on IV Flagyl. Cardiology and pulmonology following. His stools have been slowing down. He was able to wean off of vasopressors on 12/31. Patient seen and examined at bedside. He reports that he was having more stools last night and they continue to be liquid. Vital signs reviewed General: nontoxic, no distress, appears at stated age Cardiovascular: S1S2 reg, no murmur, positive posterior tibial pulse bilateral, Lungs: Course bs bilateral, no rhonchi, no rales , no accessory muscle use Abdominal: soft, nontender to palpation, no guarding, no appreciable organomegaly Ext: no gross muscle atrophy, 1+ edema b/l lower extremities, 1+ b/l upper extremity edema, no contractures Neuro: CN II-XI grossly intact, no focal neuro deficits Psych: Alert, oriented, appropriate affect Assessment/Plan: C diff colitis with septic shock Recently treated proteus bacteremia Acute kidney injury on CKD stage III Metabolic acidosis Mild hyponatremia Acute on chronic Anemia of chronic disease related to CKD - Iron studies reviewed and consistent with anemia of chronic disease and not iron deficiency anemia disconitnue IV iron -Pulmonary note reviewed: Lasix 40 mg IV push every 12 hours 2 secondary to third spacing, 2 A of bicarb. -IV Flagyl 500 mg every 8 hours D # 4, vancomycin 125 mg oral 4 times daily D #5 -Aldactone, entresto, Lasix on hold due to acute kidney injury - follow BP, avoid nephrotoxic agents - repeat BMP and CBC in AM Type 2 DM, insulin dependent -Sliding-scale insulin -Levemir 10 units at night -Farxiga 10 mg daily -Follow blood sugars -Glipizide on hold - A1C 6.2 Acute on chronic anemia -1 unit pRBCs - Baseline Hgb 8-9 - repeat CBC in AM Atrial fibrillation with rapid ventricular response Chronic systolic CHF with EF 35-40% CAD -Eliquis 5 mg twice daily -Plavix 75 mg daily -Toprol 50 mg twice daily, amiodarone 200 mg twice daily Resolved: Hypokalemia, resolved Hypomagnesemia resolved Indwelling Jacobs catheter present on admission, exchanged Imaging: Hospital Course: Chest x-ray ncreased pulmonary vasculature bilaterally with mild fluid accumulation in the minor fissure CT abdomen and pelvis: Proctocolitis, persistent urinary bladder wall thickening Data Review: Labs reviewed include CBC, basic metabolic profile, and iron studies and are remarkable for hemoglobin 8.7, white blood cell, 13.1, chloride 112, carbon dioxide 12, BUN 39, creatinine 1.18. T-Stat 24.69, transferrin 116, iron 40 DVT prophylaxis: Eliquis Anticipated discharge date: Pending Clinical Course Anticipated discharge place: Pending Clinical Course This dictation was prepared using [employer] voice recognition software. Though every attempt is made to correct errors during dictation some may still exist. Objective - Vital Signs Vital signs: Vital Signs Temp 97.8 F 01/01/23 19:59 Pulse 100 01/02/23 10:46 Resp 18 01/01/23 19:59 BP 128/82 01/01/23 19:59 Pulse Ox 100 01/01/23 19:59 FiO2 Intake & Output 01/01/23 01/02/23 01/02/23 18:59 06:59 18:59 Intake Total 703 Output Total 555 Balance 148 Weight 113 kg 111.1 kg Intake: IV 400 Sodium Chloride 0.9% 1, 300 000 ml @ 50 mls/hr IV . Q20H YESSY Rx#:[id number] metroNIDAZOLE-NS PMX 500 100 mg In Saline 1 100ml.bag @ 100 mls/hr IVPB Q8HR YESSY Rx#:[id number] Blood Product 303 Rc Pheresis 2 As3 Unit 303 [id number] Output: Urine 555 Other: Voiding Method Indwelling Catheter Indwelling Catheter Indwelling Catheter - Labs CBC & Chem 7: 01/02/23 03:36 01/02/23 03:36 Labs: Abnormal Lab Results - Last 24 Hours (Table) 01/01/23 01/01/23 01/01/23 Range/Units 05:22 07:01 17:04 WBC (3.8-10.6) k/uL RBC (4.30-5.90) m/uL Hgb (13.0-17.5) gm/dL Hct (39.0-53.0) % MCV (80.0-100.0) fL MCHC (31.0-37.0) g/dL RDW (11.5-15.5) % Chloride (98-107) mmol/L Carbon Dioxide (22-30) mmol/L BUN (9-20) mg/dL Glucose (74-99) mg/dL POC Glucose (mg/dL) 200 H (70-110) mg/dL Calcium (8.4-10.2) mg/dL Iron 40 L (65-175) UG/DL TIBC 162 L (228-460) UG/DL Transferrin 116.0 L (204.0-354.0) mg/dL Crossmatch See Detail 01/01/23 01/02/23 01/02/23 Range/Units 20:35 03:36 03:36 WBC 13.1 H (3.8-10.6) k/uL RBC 2.71 L (4.30-5.90) m/uL Hgb 8.7 L D (13.0-17.5) gm/dL Hct 28.1 L (39.0-53.0) % MCV 103.7 H (80.0-100.0) fL MCHC 30.8 L (31.0-37.0) g/dL RDW 18.2 H (11.5-15.5) % Chloride 112 H (98-107) mmol/L Carbon Dioxide 12 L (22-30) mmol/L BUN 39 H (9-20) mg/dL Glucose 121 H (74-99) mg/dL POC Glucose (mg/dL) 249 H (70-110) mg/dL Calcium 8.3 L (8.4-10.2) mg/dL Iron (65-175) UG/DL TIBC (228-460) UG/DL Transferrin (204.0-354.0) mg/dL Crossmatch 01/02/23 01/02/23 Range/Units 06:12 11:08 WBC (3.8-10.6) k/uL RBC (4.30-5.90) m/uL Hgb (13.0-17.5) gm/dL Hct (39.0-53.0) % MCV (80.0-100.0) fL MCHC (31.0-37.0) g/dL RDW (11.5-15.5) % Chloride (98-107) mmol/L Carbon Dioxide (22-30) mmol/L BUN (9-20) mg/dL Glucose (74-99) mg/dL POC Glucose (mg/dL) 124 H 199 H (70-110) mg/dL Calcium (8.4-10.2) mg/dL Iron (65-175) UG/DL TIBC (228-460) UG/DL Transferrin (204.0-354.0) mg/dL Crossmatch Microbiology - Last 24 Hours (Table) 12/27/22 17:00 Blood Culture - Final Blood 12/27/22 16:49 Blood Culture - Final Blood
[2023-01-02 16:02] LABS: Glucose,Whole Blood 173 mg/dL (70-110)
--- NOTE | 2023-01-02 16:16 | P.PN ---
Subjective Patient is pleasant 72-year-old male with history of persistent atrial fibrillation, CAD with prior PCI, systolic heart failure, VT status post AICD, diabetes mellitus type 2, hypertension, hyperlipidemia. Patient presents from extended care facility secondary to diarrhea. Prior echo from September 2022 shows ejection fraction 35-40%. He was recently here 2 weeks ago with urinary tract infection and confusion. He was discharged to his extended care facility and had diarrhea and found to have C. diff colitis. He has been treated on the general medical floor however developed worsened hypotension as well as worsened tachycardia and therefore transferred to ICU. His amiodarone was increased at 200 mg twice a day. Heart rates mainly in the 110s to 120s. He has been given IV fluid bolus with some mild improvement in blood pressures mainly 90s over 70s with adequate map. He denies any chest pain or pressure. Admits to good appetite. Denies any shortness of breath. He was given 2 L of fluids with drop in hemoglobin originally 11.1 likely some component of hemoconcentration with more baseline 8 and hemoglobin has dropped down to 7.5 this morning. No active bleeding. He follows in the office with Dr. Van. 12/31 Patient seen and examined. Patient denies any chest pain or pressure. Metoprolol and amiodarone were increased yesterday and heart rates predominantly 90s to low 100s. He was briefly on norepinephrine however this has been discontinued this morning. Still having some diarrhea. 01/02 Patient seen and examined. Heart rates on the 90s to 100s and blood pressure improved up in the low 130s over 100s. Denies any chest pain or pressure. Still having significant diarrhea. Denies any shortness breath. Creatinine improved to 1.1 however significantly acidotic. He remains on amiodarone 200 mg twice a day as well as metoprolol 50 mg twice a day. PHYSICAL EXAMINATION Vital signs reviewed. CONSTITUTIONAL: No apparent distress, confused HEENT: Head is normocephalic. Pupils are equal, round. Sclerae anicteric. Mucous membranes of the mouth are moist. No JVD. No carotid bruit. CHEST EXAMINATION: Lungs are clear to auscultation. No chest wall tenderness is noted on palpation or with deep breathing. HEART EXAMINATION: Regular rate and rhythm. S1, S2 heard. No murmurs, gallops or rub. ABDOMEN: Soft, nontender. Positive bowel sounds. EXTREMITIES: 2+ peripheral pulses, 2+ lower extremity edema and no calf tenderness. NEUROLOGIC EXAMINATION: Patient is awake, alert and oriented x3. ASSESSMENT 1. Chronic systolic heart failure 2. Shock likely mainly from sepsis 3. Cdiff 4. Persistent A. fib with RVR 5. History of Hypertension 6. Cardiomyopathy ejection fraction 35-40% 7. History of coronary artery disease 8. Urinary tract infection 9. Acute kidney injury PLAN Continue with Toprol which was increased to 50 mg twice a day and increased dose of amiodarone 200 mg twice a day for now. Does not currently appear volume overloaded. Continue with gentle hydration, monitor ins and outs and diarrhea. Heart rates overall appear relatively controlled. Objective - Vital Signs Vital signs: Vital Signs Temp 97.8 F 01/01/23 19:59 Pulse 100 01/02/23 10:46 Resp 18 01/01/23 19:59 BP 128/82 01/01/23 19:59 Pulse Ox 100 01/01/23 19:59 FiO2 Intake & Output 01/01/23 01/02/23 01/02/23 18:59 06:59 18:59 Intake Total 703 Output Total 555 2100 Balance 148 -2100 Weight 113 kg 111.1 kg Intake: IV 400 Sodium Chloride 0.9% 1, 300 000 ml @ 50 mls/hr IV . Q20H YESSY Rx#:[id number] metroNIDAZOLE-NS PMX 500 100 mg In Saline 1 100ml.bag @ 100 mls/hr IVPB Q8HR YESSY Rx#:[id number] Blood Product 303 Rc Pheresis 2 As3 Unit 303 [id number] Output: Urine 555 2100 Other: Voiding Method Indwelling Catheter Indwelling Catheter Indwelling Catheter - Labs CBC & Chem 7: 01/02/23 03:36 01/02/23 03:36 Labs: Abnormal Lab Results - Last 24 Hours (Table) 01/01/23 01/01/23 01/01/23 Range/Units 05:22 17:04 20:35 WBC (3.8-10.6) k/uL RBC (4.30-5.90) m/uL Hgb (13.0-17.5) gm/dL Hct (39.0-53.0) % MCV (80.0-100.0) fL MCHC (31.0-37.0) g/dL RDW (11.5-15.5) % Chloride (98-107) mmol/L Carbon Dioxide (22-30) mmol/L BUN (9-20) mg/dL Glucose (74-99) mg/dL POC Glucose (mg/dL) 200 H 249 H (70-110) mg/dL Calcium (8.4-10.2) mg/dL Iron 40 L (65-175) UG/DL TIBC 162 L (228-460) UG/DL Transferrin 116.0 L (204.0-354.0) mg/dL 01/02/23 01/02/23 01/02/23 Range/Units 03:36 03:36 06:12 WBC 13.1 H (3.8-10.6) k/uL RBC 2.71 L (4.30-5.90) m/uL Hgb 8.7 L D (13.0-17.5) gm/dL Hct 28.1 L (39.0-53.0) % MCV 103.7 H (80.0-100.0) fL MCHC 30.8 L (31.0-37.0) g/dL RDW 18.2 H (11.5-15.5) % Chloride 112 H (98-107) mmol/L Carbon Dioxide 12 L (22-30) mmol/L BUN 39 H (9-20) mg/dL Glucose 121 H (74-99) mg/dL POC Glucose (mg/dL) 124 H (70-110) mg/dL Calcium 8.3 L (8.4-10.2) mg/dL Iron (65-175) UG/DL TIBC (228-460) UG/DL Transferrin (204.0-354.0) mg/dL 01/02/23 01/02/23 Range/Units 11:08 16:01 WBC (3.8-10.6) k/uL RBC (4.30-5.90) m/uL Hgb (13.0-17.5) gm/dL Hct (39.0-53.0) % MCV (80.0-100.0) fL MCHC (31.0-37.0) g/dL RDW (11.5-15.5) % Chloride (98-107) mmol/L Carbon Dioxide (22-30) mmol/L BUN (9-20) mg/dL Glucose (74-99) mg/dL POC Glucose (mg/dL) 199 H 173 H (70-110) mg/dL Calcium (8.4-10.2) mg/dL Iron (65-175) UG/DL TIBC (228-460) UG/DL Transferrin (204.0-354.0) mg/dL Microbiology - Last 24 Hours (Table) 12/27/22 17:00 Blood Culture - Final Blood 12/27/22 16:49 Blood Culture - Final Blood
[2023-01-02] MEDS: MULTIVITAMINS, THERA 1 EACH TAB PO SCH (18:29)
[2023-01-02 20:18] LABS: Glucose,Whole Blood 165 mg/dL (70-110)
[2023-01-02] MEDS: ACETAMINOPHEN TAB 325 MG TAB PO PRN (20:28)
[2023-01-02] MEDS: SERTRALINE 50 MG TAB PO SCH (20:29)
[2023-01-02] MEDS: ATORVASTATIN 40 MG TAB PO SCH (20:29)
[2023-01-02] MEDS: INSULIN DETEMIR (LEVEMIR) 100 UNIT/ML SYR SQ SCH (20:30)
[2023-01-02] MEDS: risperiDONE 0.5 MG TAB PO SCH (20:30)
[2023-01-03 06:15] LABS: Glucose,Whole Blood 125 mg/dL (70-110)
[2023-01-03] MEDS: INSULIN ASPART (NovoLOG) 100 UNIT/ML VIAL SQ SCH ×4 (06:27→21:25)
[2023-01-03 06:33] LABS: Anisocytosis Slight; HCT 26.3 % (39.0-53.0); HGB 8.4 gm/dL (13.0-17.5); Hypochromasia Marked; MCV 103.1 fL (80.0-100.0); Macrocytosis Moderate; Mean Platelet Volume 7.7; Platelet Count 258 k/uL (150-450); Poikilocytosis Moderate; RBC 2.55 m/uL (4.30-5.90); RDW 18.1 % (11.5-15.5); WBC 9.4 k/uL (3.8-10.6)
[2023-01-03] MEDS: CYCLOBENZAPRINE 5 MG TAB PO SCH ×3 (06:37→21:30)
[2023-01-03] MEDS: PANTOPRAZOLE 40 MG TABLET PO SCH (06:37)
[2023-01-03 06:44] LABS: African American GFR (CKD) 74 (>60 ml/min/1.73 sqM); Anion Gap 13 mmol/L; Blood Urea Nitrogen 39 mg/dL (9-20); Calcium 8.2 mg/dL (8.4-10.2); Carbon Dioxide 18 mmol/L (22-30); Chloride 108 mmol/L (98-107); Glucose 103 mg/dL (74-99); Non-African American GFR(CKD) 64 (>60 ml/min/1.73 sqM); Potassium 3.5 mmol/L (3.5-5.1); Sodium 139 mmol/L (137-145)
[2023-01-03] MEDS: OXYBUTYNIN XL 5 MG TAB.ER.24 PO SCH (08:21)
[2023-01-03] MEDS: APIXABAN 5 MG TAB PO SCH ×2 (08:22→17:34)
[2023-01-03] MEDS: allopurinoL 100 MG TAB PO SCH (08:22)
[2023-01-03] MEDS: CHOLECALCIFEROL 25 MCG (1000 IU) TABLET PO SCH (08:22)
[2023-01-03] MEDS: LACTOBACILLUS ACIDOPHILUS/PECT 1 EACH CAPSULE PO SCH (08:22)
[2023-01-03] MEDS: AMIODARONE 200 MG TAB PO SCH ×2 (08:22→21:25)
[2023-01-03] MEDS: VANCOMYCIN 125 MG CAPSULE PO SCH ×4 (08:22→21:30)
[2023-01-03] MEDS: FERROUS SULFATE 325 MG TAB PO SCH (08:22)
[2023-01-03] MEDS: METOPROLOL SUCCINATE (ER) 50 MG TAB.ER.24H PO SCH ×2 (08:22→17:35)
[2023-01-03] MEDS: THIAMINE 100 MG TAB PO SCH (08:22)
[2023-01-03] MEDS: SODIUM BICARBONATE TAB 650 MG TAB PO SCH ×2 (08:22→17:34)
[2023-01-03] MEDS: DAPAGLIFLOZIN PROPANEDIOL 10 MG TABLET PO SCH (08:22)
[2023-01-03] MEDS: CLOPIDOGREL 75 MG TAB PO SCH (08:22)
[2023-01-03] MEDS ORDERED: Potassium Replacement Protocol 1 EACH MISC MISCELLANE PRN (08:58)
--- NOTE | 2023-01-03 08:58 | P.PN ---
Subjective Progress Note Date: 01/03/23 This is a 72-year-old male patient who is being seen in the intensive care unit for hypotension C. diff colitis. The patient overnight became hypotensive and was given a total of 2 L of normal saline. He was having also issues with atrial fibrillation with rapid ventricular response. Because of all these issues, the patient got transferred to the intensive care unit. The patient is known to our services. The patient was in the hospital treated for acute hypoxic respiratory failure due to CHF and he was discharged home on 12/23/2022. Note that during his early hospitalization, the patient was septic with Proteus mirabilis and this was thought to be related to urinary tract infection and seco ndary septicemia. During his earlier admission, the patient also had an acute kidney injury and the creatinine was as high as 1.9 and subsequently dropped to 1.2 prior to his discharged. He is known to systolic heart failure with an ejection fraction of 35%. He has a combination of comorbidities including coronary artery disease, previous PCI, and is also diabetic, has previous history of chronic atrial fibrillation, has history of non-sustained ventricle tachycardia and he has an AICD in place. He has hypertension hyperlipidemia and is also obese with a BMI of 36. The patient was hospital was because of C. diff colitis and this has been confirmed. Stool for C. diff has been positive. The patient is currently on IV Flagyl and oral vancomycin 125 mg by mouth 4 times a day. Lactic acid level peaked at 2.1 and up to 1.7. Based on his underlying diarrhea, the patient is having a component of melena negative metabolic acidosis. Serum bicarbs at 17. BUN is at 41 with a creatinine of 1.3 and a sodium level is at 129. He is currently on oral bicarb. Is also on normal saline running at 125 cc an hour. He remains in atrial fibrillation. He is currently on amiodarone 200 mg by mouth once a day and is also metoprolol 50 mg twice a day. Is also limited on multiple anticoagulation with Eliquis. He is taking Plavix. Is also on Levemir insulin 10 units for blood sugar control. His white cell cause of 9.7. Is currently on oxygen at 3 L nasal cannula. His chest x-ray shows no acute abnormalities. He has an AICD in place. No signs of any heart failure. He does have a compression fracture in his thoracic spine and he has undergone a kyphoplasty and he also has postop changes involving the thoracic spine including a medical place to stabilize the spine. He is curren tly afebrile. He still having frequent liquidy bowel movements related to his undergoing C. diff colitis. His UA was abnormal at the time of admission. Nevertheless, the urine cultures are still negative. He has a Jacobs catheter in place. Today's evaluation of 12/31/2022, the patient looks alert and awake. No nausea, no emesis, he had 2 episodes of diarrhea yesterday, none for this morning. He remains on oral vancomycin and IV Flagyl. No fever or chills. The white cell count is improving. He is also given fluids in the form of normal saline at 125 mL an hour. His blood pressure is stable. He remains in atrial fibrillation. Rate is under better control. He remains on a combination of amiodarone and metoprolol for rate control. His Toprol was increased up to 50 mg twice a day and his amiodarone was also increased at 200 mg twice a day. He remains on anticoagulation. Hemoglobin is stable at 7.2. Creatinine is stable at 1.5 with a BUN of 45 and a sodium level is at 142. The chest x-ray from today is showing no changes compared to yesterday. No signs of any fluid overload. Jacobs catheter is in place. The patient has adequate urine output. He remains on oxygen at 3 L. On 01/01/2023, the patient continues to be treated for C. diff colitis. He remains on oral vancomycin and IV Flagyl. He had only one liquidy bowel movements since yesterday. As such, the colitis is settling down. No nausea. No abdominal pain. Does not look toxic at all. The white cell count is up to 9.5. At the same time, the patient had drop in hemoglobin down to 6.8. No evidence of any bleeding. He is on anticoagulation with Eliquis. He will be given a unit of packed RBC. Meanwhile, he remains on normal saline at rate of 50. His BUN is at 43 with a creatinine of 1.5. The patient's serum bicarbs of 15 and a sodium level is at 135. His cardiac rhythm is controlled and atrial fibrillation. No hypotension. No pressors for now. He has taken metoprolol 50 mg by mouth twice a day and amiodarone 200 mg by mouth twice a day. He is on oral bicarb 650 mg twice a day. He is on Levemir insulin along with Farxiga. No other issues otherwise for now. He remains on oxygen at 3 L. 01/02/2023, the patient is awake and having breakfast this morning. He has a weak appetite. He had 2 bowel movements yesterday that was liquidy and is still having some episodes of diarrhea. No nausea. No vomiting. No abdominal pain. No leukocytosis. He remains on a combination of IV Flagyl and oral vancomycin. His BUN is at 39 with a creatinine of 1.1. His hemoglobin dropped down to 6.8 yesterday and based on that the patient was given units of packed RBC and a follow-up hemoglobin is at 8.7. No evidence of any GI bleed. I kept his anticoagulants for now. He remained nature fibrillation. He days hemodynamically stable. IV fluids are running at KVO. Creatinine is down to 1.1 with a BUN of 39, sodium level is at 138, the risk was at 13.1. He remains on 3 L of oxygen by nasal cannula. His calm and comfortable. No significant respiratory distress. He is still having a component of melena negative metabolic acidosis related to his diarrhea. He was given oral bicarb. Nevertheless, his serum bicarb continues to drop it is currently down to 12. He is awake and alert. He is communicating. No other new complaints. No pressors. He remains on Levemir insulin and Farxiga. 01/03/2023, the patient is not having any active diarrhea. He did have 2 bowel movements yesterday the patient and since then no further bowel movement with activity. He remains on Flagyl and vancomycin. Doing well. Currently on oxygen at 2 L. Cardiac rhythm is A. fib. Hemoglobin stable at 8.4. BUN is at 39 with a creatinine of 1.1. The patient was given a dose of Lasix yesterday 40 mg IV push and he had good urine output. I note that the patient was quite swollen yesterday. I started him on diuretics and he responded nicely. His breathing slightly labored on today's evaluation. I will suggest continuing diuretics for now. No chest x-rays available from today. Last chest x-ray was from yesterday and showed no acute abnormalities. He does have cardiomegaly. S janine bicarb is improved and is currently up to 18. The enzymes at 39 with a creatinine of 1.1. White cell cause of 9.4. He is tolerating diet. No pressors. He remains on Levemir insulin and Farxiga. Objective - Vital Signs Vital signs: Vital Signs Temp 97.6 F 01/03/23 02:00 Pulse 92 01/03/23 02:00 Resp 22 01/03/23 02:00 BP 109/80 01/03/23 02:00 Pulse Ox 97 01/03/23 02:00 FiO2 Intake & Output 01/02/23 01/03/23 01/03/23 18:59 06:59 18:59 Intake Total 210 Output Total 2840 850 Balance -2840 -640 Weight 113.9 kg Intake: IV 210 0.9 KVO 110 metroNIDAZOLE-NS PMX 500 100 mg In Saline 1 100ml.bag @ 100 mls/hr IVPB Q8HR [facility] Rx#:[id number] Output: Urine 2840 850 Other: Voiding Method Indwelling Catheter Indwelling Catheter - Exam General: nontoxic, no distress, appears at stated age, currently on 2 L of oxygen nasal cannula Derm: warm, dry Head: atraumatic, normocephalic, symmetric Eyes: EOMI, no lid lag, anicteric sclera, pupils equal round reactive to light ENT: Nose and ears atraumatic Neck: No thyromegaly, supple Mouth: no lip lesion, mucus membranes moist Cardiovascular: S1S2 irregular, tachycardic, no murmur, no edema, the patient has an AICD in place Lungs: clear to auscultation bilateral, no rhonchi, no rales, no wheeze, no accessory muscle use Abdominal: soft, tender to palpation lower abdomen, no guarding, no appreciable organomegaly, Jacobs catheter present Ext: no gross muscle atrophy, strength 3/5 in lower extremities, no contractures Neuro: CN II-XII grossly intact Psych: Alert, oriented, appropriate affect - Labs CBC & Chem 7: 01/03/23 05:34 01/03/23 05:34 Labs: Abnormal Lab Results - Last 24 Hours (Table) 01/02/23 01/02/23 01/02/23 Range/Units 11:08 16:01 20:16 RBC (4.30-5.90) m/uL Hgb (13.0-17.5) gm/dL Hct (39.0-53.0) % MCV (80.0-100.0) fL RDW (11.5-15.5) % Chloride (98-107) mmol/L Carbon Dioxide (22-30) mmol/L BUN (9-20) mg/dL Glucose (74-99) mg/dL POC Glucose (mg/dL) 199 H 173 H 165 H (70-110) mg/dL Calcium (8.4-10.2) mg/dL 01/03/23 01/03/23 01/03/23 Range/Units 05:34 05:34 06:13 RBC 2.55 L (4.30-5.90) m/uL Hgb 8.4 L (13.0-17.5) gm/dL Hct 26.3 L (39.0-53.0) % MCV 103.1 H (80.0-100.0) fL RDW 18.1 H (11.5-15.5) % Chloride 108 H (98-107) mmol/L Carbon Dioxide 18 L (22-30) mmol/L BUN 39 H (9-20) mg/dL Glucose 103 H (74-99) mg/dL POC Glucose (mg/dL) 125 H (70-110) mg/dL Calcium 8.2 L (8.4-10.2) mg/dL Assessment and Plan Plan: Hypotension, likely secondary to intravascular depletion investigation with diarrhea and C. diff colitis, currently normotensive and hemodynamically stable C. diff colitis, antibiotic induced currently on accommodation Flagyl and vancomycin. Noted the patient was treated with Unasyn during his earlier hospitalization and the patient was discharged home on oral Ceftin , improving and the patient remains on IV Flagyl and oral vancomycin, diarrhea has subsided Leukocytosis, improving Recent hospitalization for urinary tract infection with Proteus mirabilis and secondary septicemia Hyponatremia secondary to diarrhea, improved and the sodium level is up to 139 Non-anion gap metabolic acidosis secondary to diarrhea, bicarb level is at 12 and the patient is currently on oral bicarbonate, the patient was given IV bicarb yesterday and the bicarbonate was up to 18 Acute kidney injury possibly with a component of chronic kidney disease, stage II to 3 Chronic ischemic cardiomyopathy with an ejection fraction of 35% along with moderate mitral regurgitation and tricuspid regurgitation mother did reveal pulmonary hypertension Coronary artery disease with previous PCI Diabetes mellitus type 2 History of nonsustained VT and the patient has an AICD in place Diabetes mellitus type 2 Hypertension Hyperlipidemia Obesity with a BMI of 36 Anemia of chronic disease Plan Give the patient a total of 2 ampules of sodium bicarb , Continue oral bicarb supplements, serum bicarbonate was improvements currently up to 18 Give the patient Lasix 40 mg IV push 2 doses over 12 hours as the patient has some third spacing and increased edema in all 4 extremities Monitor diarrhea Continue Flagyl and oral vancomycin Continue Plavix and Eliquis amiodarone to 200 mg twice a day and increase the metoprolol up to 50 mg twice a day BP stable Continue Levemir insulin 10 units along with a sinus care coverage, and the patient is also on Farxiga 10 mg by mouth daily Monitor renal function, improved No need for pressors at this point in time Patient is having a regular diet Consults physical therapy We'll continue to follow
[2023-01-03] MEDS: LIDOCAINE 5% PATCH TOPICAL SCH (09:03)
[2023-01-03] MEDS: metroNIDAZOLE-NS PMX 500 MG in SALINE 1 100ML.BAG IVPB SCH ×2 (09:03→17:35)
[2023-01-03] MEDS: IPRATROPIUM-ALBUTEROL 3 ML NEB INHALATION PRN ×3 (09:05→21:10)
[2023-01-03] MEDS: BUDESONIDE 1 MG/2 ML NEBU INHALATION SCH ×2 (09:06→21:10)
[2023-01-03] MEDS: FUROSEMIDE 10 MG/ML 4 ML VIAL IV SCH ×2 (10:38→21:24)
[2023-01-03] MEDS: POTASSIUM CHLORIDE ER 20 MEQ TAB.ER PO SCH ×2 (10:38→12:18)
[2023-01-03] MEDS: SODIUM BICARB 8.4% 50 ML SYR (1 MEQ/ML) IV STA ×2 (10:38→10:47)
[2023-01-03 11:25] LABS: Glucose,Whole Blood 197 mg/dL (70-110)
--- NOTE | 2023-01-03 12:27 | P.PN ---
Subjective Patient is pleasant 72-year-old male with history of persistent atrial fibrillation, CAD with prior PCI, systolic heart failure, VT status post AICD, diabetes mellitus type 2, hypertension, hyperlipidemia. Patient presents from extended care facility secondary to diarrhea. Prior echo from September 2022 shows ejection fraction 35-40%. He was recently here 2 weeks ago with urinary tract infection and confusion. He was discharged to his extended care facility and had diarrhea and found to have C. diff colitis. He has been treated on the general medical floor however developed worsened hypotension as well as worsened tachycardia and therefore transferred to ICU. His amiodarone was increased at 200 mg twice a day. Heart rates mainly in the 110s to 120s. He has been given IV fluid bolus with some mild improvement in blood pressures mainly 90s over 70s with adequate map. He denies any chest pain or pressure. Admits to good appetite. Denies any shortness of breath. He was given 2 L of fluids with drop in hemoglobin originally 11.1 likely some component of hemoconcentration with more baseline 8 and hemoglobin has dropped down to 7.5 this morning. No active bleeding. He follows in the office with Dr. Van. 12/31 Patient seen and examined. Patient denies any chest pain or pressure. Metoprolol and amiodarone were increased yesterday and heart rates predominantly 90s to low 100s. He was briefly on norepinephrine however this has been discontinued this morning. Still having some diarrhea. 01/02 Patient seen and examined. Heart rates on the 90s to 100s and blood pressure improved up in the low 130s over 100s. Denies any chest pain or pressure. Still having significant diarrhea. Denies any shortness breath. Creatinine improved to 1.1 however significantly acidotic. He remains on amiodarone 200 mg twice a day as well as metoprolol 50 mg twice a day. 01/03 Patient seen and examined. Heart rates continue to be mainly in the 90s to 100s and occasionally up in the 120 range. Remains on amiodarone twice a day as well as the metoprolol. Tolerating diet. Creatinine continues improved to 1.1. PHYSICAL EXAMINATION Vital signs reviewed. CONSTITUTIONAL: No apparent distress, confused HEENT: Head is normocephalic. Pupils are equal, round. Sclerae anicteric. Mucous membranes of the mouth are moist. No JVD. No carotid bruit. CHEST EXAMINATION: Lungs are clear to auscultation. No chest wall tenderness is noted on palpation or with deep breathing. HEART EXAMINATION: Regular rate and rhythm. S1, S2 heard. No murmurs, gallops or rub. ABDOMEN: Soft, nontender. Positive bowel sounds. EXTREMITIES: 2+ peripheral pulses, 2+ lower extremity edema and no calf tenderness. NEUROLOGIC EXAMINATION: Patient is awake, alert and oriented x3. ASSESSMENT 1. Chronic systolic heart failure 2. Shock likely mainly from sepsis 3. Cdiff 4. Persistent A. fib with RVR 5. History of Hypertension 6. Cardiomyopathy ejection fraction 35-40% 7. History of coronary artery disease 8. Urinary tract infection 9. Acute kidney injury PLAN Continue with Toprol which was increased to 50 mg twice a day and increased dose of amiodarone 200 mg twice a day for now. Does not currently appear volume overloaded. Continue with current therapy, monitor ins and outs and diarrhea. Objective - Vital Signs Vital signs: Vital Signs Temp 97.2 F L 01/03/23 08:00 Pulse 103 H 01/03/23 09:20 Resp 18 01/03/23 09:20 BP 116/77 01/03/23 08:00 Pulse Ox 98 01/03/23 09:06 FiO2 Intake & Output 01/02/23 01/03/23 01/03/23 18:59 06:59 18:59 Intake Total 210 Output Total 2840 850 Balance -2840 -640 Weight 113.9 kg Intake: IV 210 0.9 KVO 110 metroNIDAZOLE-NS PMX 500 100 mg In Saline 1 100ml.bag @ 100 mls/hr IVPB Q8HR [facility] Rx#:[id number] Output: Urine 2840 850 Other: Voiding Method Indwelling Catheter Indwelling Catheter Indwelling Catheter - Labs CBC & Chem 7: 01/03/23 05:34 01/03/23 05:34 Labs: Abnormal Lab Results - Last 24 Hours (Table) 01/02/23 01/02/23 01/03/23 Range/Units 16:01 20:16 05:34 RBC 2.55 L (4.30-5.90) m/uL Hgb 8.4 L (13.0-17.5) gm/dL Hct 26.3 L (39.0-53.0) % MCV 103.1 H (80.0-100.0) fL RDW 18.1 H (11.5-15.5) % Chloride (98-107) mmol/L Carbon Dioxide (22-30) mmol/L BUN (9-20) mg/dL Glucose (74-99) mg/dL POC Glucose (mg/dL) 173 H 165 H (70-110) mg/dL Calcium (8.4-10.2) mg/dL 01/03/23 01/03/23 01/03/23 Range/Units 05:34 06:13 11:24 RBC (4.30-5.90) m/uL Hgb (13.0-17.5) gm/dL Hct (39.0-53.0) % MCV (80.0-100.0) fL RDW (11.5-15.5) % Chloride 108 H (98-107) mmol/L Carbon Dioxide 18 L (22-30) mmol/L BUN 39 H (9-20) mg/dL Glucose 103 H (74-99) mg/dL POC Glucose (mg/dL) 125 H 197 H (70-110) mg/dL Calcium 8.2 L (8.4-10.2) mg/dL
[2023-01-03 16:31] LABS: Glucose,Whole Blood 189 mg/dL (70-110)
[2023-01-03] MEDS: MULTIVITAMINS, THERA 1 EACH TAB PO SCH (17:34)
--- NOTE | 2023-01-03 18:05 | P.PN ---
Subjective Progress Note Date: 01/03/23 (delayed charting seen at 1055) Patient is a 72-year-old male with systolic CHF, A. fib on Eliquis, CAD status post stents, COPD, type 2 diabetes, and hypertension who presented from rehab with atrial fibrillation with RVR and hypotension. Patient was recently admitted for Proteus bacteremia and was on antibiotics. In the ED his vitals were within normal limits. Chest x-ray independently interpreted, shows mild interstitial opacities. WBC 15.4, hemoglobin 11.1, sodium 135, bicarb 21, anion gap 14, BUN 40, creatinine 1.34 at baseline, glucose 114, troponin negative, TSH mildly elevated at 4.9, urinalysis shows large leukocyte esterase, negative nitrates. Patient was admitted for atrial fibrillation with RVR. He received 1 dose of IV metoprolol and was conitnued on his home amio. Found to be C. difficile positive. Urinary catheter was exchanged. Started on oral vancomycin . Patient became hypotensive, requiring IV fluids. He required transfer to the ICU. Also on IV Flagyl. Cardiology and pulmonology following. His stools have been slowing down. He was able to wean off of vasopressors on 12/31. He continue to improve daily. Patient seen and examined at bedside. He continues to have loose stools. Per nursing he only had one yesterday. He denies any chest pain, shortness of breath. He still complains of some swelling. Vital signs reviewed General: nontoxic, no distress, appears at stated age Cardiovascular: S1S2 reg, no murmur, positive posterior tibial pulse bilateral, Lungs: Course bs bilateral, no rhonchi, no rales , no accessory muscle use Abdominal: soft, nontender to palpation, no guarding, no appreciable organomegaly Ext: no gross muscle atrophy, 1+ edema b/l lower extremities, 1+ b/l upper extremity edema, no contractures Neuro: CN II-XI grossly intact, no focal neuro deficits Psych: Alert, oriented, appropriate affect Assessment/Plan: C diff colitis with septic shock (shock resolved) Recently treated proteus bacteremia CKD stage III Metabolic acidosis Acute on chronic Anemia of chronic disease related to CKD -Would avoid sodium bicarb IV push at this time due to the amount of sodium in those 2 ampules and given the fact that patient's bicarbonate is improved today to 18. -Pulmonary no reviewed: Lasix 40 mg IV push 2, monitor renal function -IV Flagyl 500 mg every 8 hours D # 5, vancomycin 125 mg oral 4 times daily D #6 -Aldactone 25 mg PO daily resumed - Consider transition to home oral lasix dose in AM - entresto on hold due to acute kidney injury. Could consider resume in AM if BP remains stable - follow BP, avoid nephrotoxic agents - repeat BMP and CBC in AM Type 2 DM, insulin dependent -Sliding-scale insulin -Levemir 10 units at night -Farxiga 10 mg daily -Follow blood sugars -Glipizide on hold - A1C 6.2 Acute on chronic anemia -1 unit pRBCs - Baseline Hgb 8-9 - repeat CBC in AM Atrial fibrillation with rapid ventricular response Chronic systolic CHF with EF 35-40% CAD -Cardiology note reviewed: Continue with metoprolol 50 mg twice daily, increase dose of amiodarone at 200 mg twice daily for now, patient does not currently appear volume overloaded. -Eliquis 5 mg twice daily -Plavix 75 mg daily -Toprol 50 mg twice daily, amiodarone 200 mg twice daily Resolved: Hypokalemia, resolved Hypomagnesemia resolved Indwelling Jacobs catheter present on admission, exchanged RAJAN Mild hyponatremia - anticipate that patient can transition back to rehab once fluid status is optimized. On discharge will need for continue oral vanco, but will not need IV abx. Imaging: None new Hospital Course: Chest x-ray ncreased pulmonary vasculature bilaterally with mild fluid accumulation in the minor fissure CT abdomen and pelvis: Proctocolitis, persistent urinary bladder wall thickening Data Review: Labs reviewed from today include CBC and basic metabolic profile which are remar kable for hemoglobin 8.4, bicarb 18, anion gap 13, BUN 39. DVT prophylaxis: Eliquis Anticipated discharge date: in2-[address]: return to [facility] This dictation was prepared using [employer] voice recognition software. Though every attempt is made to correct errors during dictation some may still exist. Objective - Vital Signs Vital signs: Vital Signs Temp 97.4 F L 01/03/23 14:00 Pulse 110 H 01/03/23 15:42 Resp 22 01/03/23 14:00 BP 122/83 01/03/23 14:00 Pulse Ox 96 01/03/23 14:00 FiO2 Intake & Output 01/02/23 01/03/23 01/03/23 18:59 06:59 18:59 Intake Total 210 Output Total 2840 850 1100 Balance -2840 -640 -1100 Weight 113.9 kg Intake: IV 210 0.9 KVO 110 metroNIDAZOLE-NS PMX 500 100 mg In Saline 1 100ml.bag @ 100 mls/hr IVPB Q8HR [facility] Rx#:[id number] Output: Urine 2840 850 1100 Other: Voiding Method Indwelling Catheter Indwelling Catheter Indwelling Catheter - Labs CBC & Chem 7: 01/03/23 05:34 01/03/23 05:34 Labs: Abnormal Lab Results - Last 24 Hours (Table) 01/02/23 01/03/23 01/03/23 Range/Units 20:16 05:34 05:34 RBC 2.55 L (4.30-5.90) m/uL Hgb 8.4 L (13.0-17.5) gm/dL Hct 26.3 L (39.0-53.0) % MCV 103.1 H (80.0-100.0) fL RDW 18.1 H (11.5-15.5) % Chloride 108 H (98-107) mmol/L Carbon Dioxide 18 L (22-30) mmol/L BUN 39 H (9-20) mg/dL Glucose 103 H (74-99) mg/dL POC Glucose (mg/dL) 165 H (70-110) mg/dL Calcium 8.2 L (8.4-10.2) mg/dL 01/03/23 01/03/23 01/03/23 Range/Units 06:13 11:24 16:30 RBC (4.30-5.90) m/uL Hgb (13.0-17.5) gm/dL Hct (39.0-53.0) % MCV (80.0-100.0) fL RDW (11.5-15.5) % Chloride (98-107) mmol/L Carbon Dioxide (22-30) mmol/L BUN (9-20) mg/dL Glucose (74-99) mg/dL POC Glucose (mg/dL) 125 H 197 H 189 H (70-110) mg/dL Calcium (8.4-10.2) mg/dL
[2023-01-03 20:11] LABS: Glucose,Whole Blood 187 mg/dL (70-110)
[2023-01-03] MEDS: ATORVASTATIN 40 MG TAB PO SCH (21:25)
[2023-01-03] MEDS: INSULIN DETEMIR (LEVEMIR) 100 UNIT/ML SYR SQ SCH (21:25)
[2023-01-03] MEDS: risperiDONE 0.5 MG TAB PO SCH (21:25)
[2023-01-03] MEDS: SERTRALINE 50 MG TAB PO SCH (21:30)
[2023-01-04] MEDS: metroNIDAZOLE-NS PMX 500 MG in SALINE 1 100ML.BAG IVPB SCH ×3 (00:10→15:56)
[2023-01-04 05:17] LABS: Anisocytosis Slight; HGB 8.3 gm/dL (13.0-17.5); Hypochromasia Marked; MCH 31.9 pg (25.0-35.0); MCHC 30.8 g/dL (31.0-37.0); MCV 103.3 fL (80.0-100.0); Macrocytosis Moderate; Mean Platelet Volume 8.2; Platelet Count 279 k/uL (150-450); Poikilocytosis Moderate; RBC 2.61 m/uL (4.30-5.90); RDW 18.4 % (11.5-15.5)
[2023-01-04 06:15] LABS: African American GFR (CKD) 70 (>60 ml/min/1.73 sqM); Anion Gap 13 mmol/L; Blood Urea Nitrogen 40 mg/dL (9-20); Calcium 8.1 mg/dL (8.4-10.2); Carbon Dioxide 16 mmol/L (22-30); Chloride 108 mmol/L (98-107); Glucose 127 mg/dL (74-99); Magnesium 1.6 mg/dL (1.6-2.3); Non-African American GFR(CKD) 60 (>60 ml/min/1.73 sqM); Potassium 4.1 mmol/L (3.5-5.1); Sodium 137 mmol/L (137-145)
[2023-01-04 07:10] LABS: Glucose,Whole Blood 275 mg/dL (70-110)
[2023-01-04] MEDS: CYCLOBENZAPRINE 5 MG TAB PO SCH ×3 (07:46→20:51)
[2023-01-04] MEDS: PANTOPRAZOLE 40 MG TABLET PO SCH (07:46)
[2023-01-04] MEDS: IPRATROPIUM-ALBUTEROL 3 ML NEB INHALATION PRN ×3 (08:23→20:11)
[2023-01-04] MEDS: BUDESONIDE 1 MG/2 ML NEBU INHALATION SCH ×2 (08:23→20:11)
[2023-01-04] MEDS: THIAMINE 100 MG TAB PO SCH (09:51)
[2023-01-04] MEDS: AMIODARONE 200 MG TAB PO SCH ×2 (09:51→20:51)
[2023-01-04] MEDS: CLOPIDOGREL 75 MG TAB PO SCH (09:51)
[2023-01-04] MEDS: FERROUS SULFATE 325 MG TAB PO SCH (09:51)
[2023-01-04] MEDS: LACTOBACILLUS ACIDOPHILUS/PECT 1 EACH CAPSULE PO SCH (09:51)
[2023-01-04] MEDS: APIXABAN 5 MG TAB PO SCH ×2 (09:51→17:00)
[2023-01-04] MEDS: LIDOCAINE 5% PATCH TOPICAL SCH (09:52)
[2023-01-04] MEDS: allopurinoL 100 MG TAB PO SCH (09:52)
[2023-01-04] MEDS: SODIUM BICARBONATE TAB 650 MG TAB PO SCH ×2 (09:52→17:00)
[2023-01-04] MEDS: VANCOMYCIN 125 MG CAPSULE PO SCH ×4 (09:53→20:51)
[2023-01-04] MEDS: OXYBUTYNIN XL 5 MG TAB.ER.24 PO SCH (09:53)
[2023-01-04] MEDS: METOPROLOL SUCCINATE (ER) 50 MG TAB.ER.24H PO SCH ×3 (09:53→20:51)
[2023-01-04] MEDS: CHOLECALCIFEROL 25 MCG (1000 IU) TABLET PO SCH (09:53)
[2023-01-04] MEDS: DAPAGLIFLOZIN PROPANEDIOL 10 MG TABLET PO SCH (09:54)
[2023-01-04] MEDS: INSULIN ASPART (NovoLOG) 100 UNIT/ML VIAL SQ SCH ×4 (09:56→20:51)
--- NOTE | 2023-01-04 11:19 | PN ---
PROGRESS NOTE SUBJECTIVE: Mr. Guevara has been admitted with what seems to be urosepsis, received a lot of IV fluids. He also has atrial fib and moderately rapid ventricular rate and appears to be clinically in heart failure. He is resting comfortably at the time of my evaluation, but he when he moves around he seems to be more short of breath. OBJECTIVE: VITAL SIGNS: Stable. JVD 1 to 2 cm. HEART: S1, S2 heard normally. Irregular in rhythm. Short systolic murmur. LUNGS: Fine bibasal rales. Diminished air entry. ABDOMEN: Soft. MUSCULOSKELETAL: Lower extremities reveal diminished pulses. I am recommending that we could diurese him cautiously IV Lasix 40 mg q.12 hours, increase the metoprolol to 50 mg t.i.d. from tomorrow. Continue other medications and see how he does. Prognosis remains guarded. The patient is known to have history of CAD with prior PCI, heart failure, ventricular tachycardia status post ICD, type 2 diabetes, hypertension, hyperlipidemia, and multiple other comorbid conditions. We will do cautious diuresis and see how he does. MMODL / IJN: [id number] /
--- NOTE | 2023-01-04 11:40 | P.PN ---
Subjective Progress Note Date: 01/04/23 Patient is a 72-year-old male with systolic CHF, A. fib on Eliquis, CAD status post stents, COPD, type 2 diabetes, and hypertension who presented from rehab with atrial fibrillation with RVR and hypotension. Patient was recently admitted for Proteus bacteremia and was on antibiotics. In the ED his vitals were within normal limits. Chest x-ray independently interpreted, shows mild interstitial opacities. WBC 15.4, hemoglobin 11.1, sodium 135, bicarb 21, anion gap 14, BUN 40, creatinine 1.34 at baseline, glucose 114, troponin negative, TSH mildly elevated at 4.9, urinalysis shows large leukocyte esterase, negative nitrates. Patient was admitted for atrial fibrillation with RVR. He received 1 dose of IV metoprolol and was conitnued on his home amio. Found to be C. difficile positive. Urinary catheter was exchanged. Started on oral vancomycin. Patient became hypotensive, requiring IV fluids. He required transfer to the ICU. Also on IV Flagyl. Cardiology and pulmonology following. His stools have been slowing down. He was able to wean off of vasopressors on 12/31. He continue to improve daily. Patient seen and examined at bedside. Bowel movements improving. He denies any chest pain, shortness of breath. Vital signs reviewed General: nontoxic, no distress, appears at stated age Cardiovascular: S1S2 reg, no murmur, positive posterior tibial pulse bilateral, Lungs: Course bs bilateral, no rhonchi, no rales , no accessory muscle use Abdominal: soft, nontender to palpation, no guarding, no appreciable organomegaly Ext: no gross muscle atrophy, 2+ edema b/l lower extremities, 1+ b/l upper extremity edema, no contractures Neuro: CN II-XI grossly intact, no focal neuro deficits Psych: Alert, oriented, appropriate affect Assessment/Plan: C diff colitis with septic shock (shock resolved) Recently treated proteus bacteremia CKD stage III Metabolic acidosis Acute on chronic Anemia of chronic disease related to CKD -IV Flagyl 500 mg every 8 hours D # 6, vancomycin 125 mg oral 4 times daily D #7 -Pulmonology following -Still holding home antihypertensives - follow BP, avoid nephrotoxic agents - repeat BMP and CBC in AM Type 2 DM, insulin dependent -Sliding-scale insulin -Levemir 10 units at night -Farxiga 10 mg daily -Follow blood sugars -Glipizide on hold - A1C 6.2 Acute on chronic anemia -1 unit pRBCs - Baseline Hgb 8-9 - repeat CBC in AM Atrial fibrillation with rapid ventricular response Chronic systolic CHF with EF 35-40% CAD --Cardiology note reviewed, started on Lasix 40 IV every 12 hours, monitor electrolytes and renal function, metoprolol increased to 50 mg 3 times a day -Continue amiodarone 200 mg twice a day -Eliquis 5 mg twice daily -Plavix 75 mg daily Resolved: Hypokalemia, resolved Hypomagnesemia resolved Indwelling Jacobs catheter present on admission, exchanged RAJAN Mild hyponatremia - anticipate that patient can transition back to rehab once fluid status is optimized. On discharge will need for continue oral vanco, but will not need IV abx. Imaging: None new Hospital Course: Chest x-ray ncreased pulmonary vasculature bilaterally with mild fluid accumulation in the minor fissure CT abdomen and pelvis: Proctocolitis, persistent urinary bladder wall thickening Data Review: Labs reviewed from today: WBC 12, hemoglobin 8.3, bicarb 16, BUN 40, creatinine 1.19, blood sugars range between 127-189, magnesium 1.6 DVT prophylaxis: Eliquis Anticipated discharge date: in24-[address]: return to [facility] Objective - Vital Signs Vital signs: Vital Signs Temp 97.5 F L 01/04/23 02:00 Pulse 103 H 01/04/23 08:34 Resp 18 01/04/23 08:34 BP 121/88 01/04/23 02:00 Pulse Ox 98 01/04/23 02:00 FiO2 Intake & Output 01/03/23 01/04/23 01/04/23 18:59 06:59 18:59 Intake Total 120 Output Total 1100 950 Balance -1100 -830 Weight 114.2 kg Intake: IV 120 0.9 KVO 120 Output: Urine 1100 950 Other: Voiding Method Indwelling Catheter Indwelling Catheter - Labs CBC & Chem 7: 01/04/23 04:18 01/04/23 04:18 Labs: Abnormal Lab Results - Last 24 Hours (Table) 01/03/23 01/03/23 01/04/23 Range/Units 16:30 20:10 04:18 WBC 12.0 H (3.8-10.6) k/uL RBC 2.61 L (4.30-5.90) m/uL Hgb 8.3 L (13.0-17.5) gm/dL Hct 27.0 L (39.0-53.0) % MCV 103.3 H (80.0-100.0) fL MCHC 30.8 L (31.0-37.0) g/dL RDW 18.4 H (11.5-15.5) % Chloride (98-107) mmol/L Carbon Dioxide (22-30) mmol/L BUN (9-20) mg/dL Glucose (74-99) mg/dL POC Glucose (mg/dL) 189 H 187 H (70-110) mg/dL Calcium (8.4-10.2) mg/dL 01/04/23 01/04/23 Range/Units 04:18 07:09 WBC (3.8-10.6) k/uL RBC (4.30-5.90) m/uL Hgb (13.0-17.5) gm/dL Hct (39.0-53.0) % MCV (80.0-100.0) fL MCHC (31.0-37.0) g/dL RDW (11.5-15.5) % Chloride 108 H (98-107) mmol/L Carbon Dioxide 16 L (22-30) mmol/L BUN 40 H (9-20) mg/dL Glucose 127 H (74-99) mg/dL POC Glucose (mg/dL) 275 H (70-110) mg/dL Calcium 8.1 L (8.4-10.2) mg/dL
[2023-01-04 11:51] LABS: Glucose,Whole Blood 215 mg/dL (70-110)
[2023-01-04] MEDS: FUROSEMIDE 10 MG/ML 4 ML VIAL IV SCH ×2 (12:51→20:51)
--- NOTE | 2023-01-04 13:56 | P.PN ---
Subjective Progress Note Date: 01/04/23 Principal diagnosis: Acute C. diff colitis, with hypovolemic hypotension and intravascular depletion This is a 72-year-old male patient who is being seen in the intensive care unit for hypotension C. diff colitis. The patient overnight became hypotensive and was given a total of 2 L of normal saline. He was having also issues with atrial fibrillation with rapid ventricular response. Because of all these issues, the patient got transferred to the intensive care unit. The patient is known to our services. The patient was in the hospital treated for acute hypoxic respiratory failure due to CHF and he was discharged home on 12/23/2022. Note that during his early hospitalization, the patient was septic with Proteus mirabilis and this was thought to be related to urinary tract infection and secondary septicemia. During his earlier admission, the patient also had an acute kidney injury and the creatinine was as high as 1.9 and subsequently dropped to 1.2 prior to his discharged. He is known to systolic heart failure with an ejection fraction of 35%. He has a combination of comorbidities including coronary artery disease, previous PCI, and is also diabetic, has previous history of chronic atrial fibrillation, has history of non-sustained ventricle tachycardia and he has an AICD in place. He has hypertension hyperlipidemia and is also obese with a BMI of 36. The patient was hospital was because of C. diff colitis and this has been confirmed. Stool for C. diff has been positive. The patient is currently on IV Flagyl and oral vancomycin 125 mg by mouth 4 times a day. Lactic acid level peaked at 2.1 and up to 1.7. Based on his underlying diarrhea, the patient is having a component of melena negative metabolic acidosis. Serum bicarbs at 17. BUN is at 41 with a creatinine of 1.3 and a sodium level is at 129. He is currently on oral bicarb. Is also on normal saline running at 125 cc an hour. He remains in atrial fibrillation. He is currently on amiodarone 200 mg by mouth once a day and is also metoprolol 50 mg twice a day. Is also limited on multiple anticoagulation with Eliquis. He is taking Plavix. Is also on Levemir insulin 10 units for blood sugar control. His white cell cause of 9.7. Is currently on oxygen at 3 L nasal cannula. His chest x-ray shows no acute abnormalities. He has an AICD in place. No signs of any heart failure. He does have a compression fracture in his thoracic spine and he has undergone a kyphoplasty and he also has postop changes involving the thoracic spine including a medical place to stabilize the spine. He is currently afebrile. He still having frequent liquidy bowel movements related to his undergoing C. diff colitis. His UA was abnormal at the time of admission. Nevertheless, the urine cultures are still negative. He has a Jacobs catheter in place. Today's evaluation of 12/31/2022, the patient looks alert and awake. No nausea, no emesis, he had 2 episodes of diarrhea yesterday, none for this morning. He remains on oral vancomycin and IV Flagyl. No fever or chills. The white cell count is improving. He is also given fluids in the form of normal saline at 125 mL an hour. His blood pressure is stable. He remains in atrial fibrillation. Rate is under better control. He remains on a combination of amiodarone and metoprolol for rate control. His Toprol was increased up to 50 mg twice a day and his amiodarone was also increased at 200 mg twice a day. He remains on anticoagulation. Hemoglobin is stable at 7.2. Creatinine is stable at 1.5 with a BUN of 45 and a sodium level is at 142. The chest x-ray from today is showing no changes compared to yesterday. No signs of any fluid overload. Jacobs catheter is in place. The patient has adequate urine output. He remains on oxygen at 3 L. On 01/01/2023, the patient continues to be treated for C. diff colitis. He remains on oral vancomycin and IV Flagyl. He had only one liquidy bowel movements since yesterday. As such, the colitis is settling down. No nausea. No abdominal pain. Does not look toxic at all. The white cell count is up to 9.5. At the same time, the patient had drop in hemoglobin down to 6.8. No evidence of any bleeding. He is on anticoagulation with Eliquis. He will be given a unit of packed RBC. Meanwhile, he remains on normal saline at rate of 50. His BUN is at 43 with a creatinine of 1.5. The patient's serum bicarbs of 15 and a sodium level is at 135. His cardiac rhythm is controlled and atrial fibrillation. No hypotension. No pressors for now. He has taken metoprolol 50 mg by mouth twice a day and amiodarone 200 mg by mouth twice a day. He is on oral bicarb 650 mg twice a day. He is on Levemir insulin along with Farxiga. No other issues otherwise for now. He remains on oxygen at 3 L. 01/02/2023, the patient is awake and having breakfast this morning. He has a weak appetite. He had 2 bowel movements yesterday that was liquidy and is still having some episodes of diarrhea. No nausea. No vomiting. No abdominal pain. No leukocytosis. He remains on a combination of IV Flagyl and oral vancomycin. His BUN is at 39 with a creatinine of 1.1. His hemoglobin dropped down to 6.8 yesterday and based on that the patient was given units of packed RBC and a follow-up hemoglobin is at 8.7. No evidence of any GI bleed. I kept his anticoagulants for now. He remained nature fibrillation. He days hemodynamically stable. IV fluids are running at KVO. Creatinine is down to 1.1 with a BUN of 39, sodium level is at 138, the risk was at 13.1. He remains on 3 L of oxygen by nasal cannula. His calm and comfortable. No significant respiratory distress. He is still having a component of melena negative metabolic acidosis related to his diarrhea. He was given oral bicarb. Nevertheless, his serum bicarb continues to drop it is currently down to 12. He is awake and alert. He is communicating. No other new complaints. No pressors. He remains on Levemir insulin and Farxiga. 01/03/2023, the patient is not having any active diarrhea. He did have 2 bowel movements yesterday the patient and since then no further bowel movement with activity. He remains on Flagyl and vancomycin. Doing well. Currently on oxygen at 2 L. Cardiac rhythm is A. fib. Hemoglobin stable at 8.4. BUN is at 39 with a creatinine of 1.1. The patient was given a dose of Lasix yesterday 40 mg IV push and he had good urine output. I note that the patient was quite swollen yesterday. I started him on diuretics and he responded nicely. His breathing slightly labored on today's evaluation. I will suggest continuing diuretics for now. No chest x-rays available from today. Last chest x-ray was from yesterday and showed no acute abnormalities. He does have cardiomegaly. Serum bicarb is improved and is currently up to 18. The enzymes at 39 with a creatinine of 1.1. White cell cause of 9.4. He is tolerating diet. No pressors. He remains on Levemir insulin and Farxiga. Patient was reevaluated today on 01/04/23, he is in the ICU, on 2 L nasal cannula, not in any distress. Patient is doing fairly well, hemodynamically stable, no further episodes of diarrhea, the plan is to transfer the patient out of the ICU to [facility]. Patient is relatively asymptomatic his CBC is normal except for hemoglobin of 8.3 basic metabolic profile is normal bicarb is 16. BUN is 40 creatinine 1.1 Objective - Vital Signs Vital signs: Vital Signs Temp 98.4 F 01/04/23 08:00 Pulse 118 H 01/04/23 11:54 Resp 18 01/04/23 11:54 BP 121/88 01/04/23 02:00 Pulse Ox 98 01/04/23 02:00 FiO2 Intake & Output 01/03/23 01/04/23 01/04/23 18:59 06:59 18:59 Intake Total 120 Output Total 1100 950 Balance -1100 -830 Weight 114.2 kg Intake: IV 120 0.9 KVO 120 Output: Urine 1100 950 Other: Voiding Method Indwelling Catheter Indwelling Catheter Indwelling Catheter - Exam Physical Exam: Revealed 72-year-old white male on 2 L nasal cannula in no distress Head: Atraumatic, normocephalic. HEENT:[Neck is supple.] [No neck masses.] [No thyromegaly.] [No JVD.] Chest: [Clear throughout, no crackles, no rhonchi, no wheezes.] Cardiac Exam: [Normal S1 and S2, no S3 gallop, no murmur.] Abdomen: [Soft, nontender, no megaly, no rebound, no guarding, normal bowel sounds.] Extremities: [No clubbing, no edema, no cyanosis.] Neurological Exam: [No focal neurologic deficit.] Psychiatric: Normal mood affect and normal mental status examination. Skin: No rashes - Labs CBC & Chem 7: 01/04/23 04:18 01/04/23 04:18 Labs: Abnormal Lab Results - Last 24 Hours (Table) 01/03/23 01/03/23 01/04/23 Range/Units 16:30 20:10 04:18 WBC 12.0 H (3.8-10.6) k/uL RBC 2.61 L (4.30-5.90) m/uL Hgb 8.3 L (13.0-17.5) gm/dL Hct 27.0 L (39.0-53.0) % MCV 103.3 H (80.0-100.0) fL MCHC 30.8 L (31.0-37.0) g/dL RDW 18.4 H (11.5-15.5) % Chloride (98-107) mmol/L Carbon Dioxide (22-30) mmol/L BUN (9-20) mg/dL Glucose (74-99) mg/dL POC Glucose (mg/dL) 189 H 187 H (70-110) mg/dL Calcium (8.4-10.2) mg/dL 01/04/23 01/04/23 01/04/23 Range/Units 04:18 07:09 11:49 WBC (3.8-10.6) k/uL RBC (4.30-5.90) m/uL Hgb (13.0-17.5) gm/dL Hct (39.0-53.0) % MCV (80.0-100.0) fL MCHC (31.0-37.0) g/dL RDW (11.5-15.5) % Chloride 108 H (98-107) mmol/L Carbon Dioxide 16 L (22-30) mmol/L BUN 40 H (9-20) mg/dL Glucose 127 H (74-99) mg/dL POC Glucose (mg/dL) 275 H 215 H (70-110) mg/dL Calcium 8.1 L (8.4-10.2) mg/dL Assessment and Plan Assessment: Impression: Acute hypovolemic hypotension, hypovolemic shock Acute C. difficile colitis Acute hypovolemic hyponatremia Non-anion gap metabolic acidosis secondary to diarrhea Acute kidney injury with known history of chronic kidney disease stage II to 3 Type 2 diabetes History of nonsustained ventricular tachycardia and previous AICD in place History of hypertension History of chronic ischemic cardiomyopathy with ejection fraction of 35%, moderate mitral regurgitation and tricuspid regurgitation with pulmonary hypertension Recommendation: Continue present supportive care measures Continue Flagyl and vancomycin orally Continue Plavix and eliquis Continue amiodarone Transfer patient out of the ICU to a monitor bed on selective Continue physical therapy Advanced diet as tolerated We will continue to follow Time with Patient: Less than 30
[2023-01-04 16:41] LABS: Glucose,Whole Blood 201 mg/dL (70-110)
[2023-01-04] MEDS: MULTIVITAMINS, THERA 1 EACH TAB PO SCH (17:08)
[2023-01-04 19:54] LABS: Glucose,Whole Blood 177 mg/dL (70-110)
[2023-01-04] MEDS: ATORVASTATIN 40 MG TAB PO SCH (20:50)
[2023-01-04] MEDS: INSULIN DETEMIR (LEVEMIR) 100 UNIT/ML SYR SQ SCH (20:51)
[2023-01-04] MEDS: SERTRALINE 50 MG TAB PO SCH (20:51)
[2023-01-04] MEDS: risperiDONE 0.5 MG TAB PO SCH (20:51)
[2023-01-04] MEDS: ACETAMINOPHEN TAB 325 MG TAB PO PRN (21:18)
[2023-01-05] MEDS: metroNIDAZOLE-NS PMX 500 MG in SALINE 1 100ML.BAG IVPB SCH ×2 (00:30→09:00)
[2023-01-05 04:47] LABS: Anisocytosis Slight; Basophils % (A) 0 %; Eosinophils # (A) 0.2 k/uL (0-0.7); Eosinophils % (A) 2 %; HCT 26.4 % (39.0-53.0); HGB 8.6 gm/dL (13.0-17.5); Hypochromasia Moderate; Lymphocytes # (A) 0.8 k/uL (1.0-4.8); Lymphocytes % (A) 8 %; MCH 32.9 pg (25.0-35.0); MCHC 32.4 g/dL (31.0-37.0); MCV 101.4 fL (80.0-100.0); Macrocytosis Moderate; Mean Platelet Volume 8.4; Monocytes # (A) 0.6 k/uL (0-1.0); Monocytes % (A) 5 %; Neutrophils # (A) 8.8 k/uL (1.3-7.7); Neutrophils % (A) 84 %; Platelet Count 307 k/uL (150-450); Poikilocytosis Moderate; RBC 2.61 m/uL (4.30-5.90); RDW 18.5 % (11.5-15.5); WBC 10.6 k/uL (3.8-10.6)
[2023-01-05 05:02] LABS: African American GFR (CKD) 62 (>60 ml/min/1.73 sqM); Anion Gap 11 mmol/L; Blood Urea Nitrogen 40 mg/dL (9-20); Carbon Dioxide 21 mmol/L (22-30); Chloride 106 mmol/L (98-107); Glucose 118 mg/dL (74-99); Magnesium 1.6 mg/dL (1.6-2.3); Non-African American GFR(CKD) 53 (>60 ml/min/1.73 sqM); Potassium 3.4 mmol/L (3.5-5.1); Sodium 138 mmol/L (137-145)
[2023-01-05] MEDS: ACETAMINOPHEN TAB 325 MG TAB PO PRN ×2 (06:15→20:56)
[2023-01-05] MEDS: PANTOPRAZOLE 40 MG TABLET PO SCH (06:16)
[2023-01-05] MEDS: CYCLOBENZAPRINE 5 MG TAB PO SCH ×3 (06:16→20:56)
[2023-01-05] MEDS: POTASSIUM CHLORIDE 20 MEQ in WATER FOR INJECTION 1 100ML.BAG IVPB SCH ×3 (06:18→11:45)
[2023-01-05 06:26] LABS: Glucose,Whole Blood 123 mg/dL (70-110)
[2023-01-05] MEDS: INSULIN ASPART (NovoLOG) 100 UNIT/ML VIAL SQ SCH ×4 (06:26→20:57)
--- NOTE | 2023-01-05 08:08 | PN ---
PROGRESS NOTE SUBJECTIVE: Mr. Guevara is more comfortable, breathing easier. Yesterday, I gave him 2 doses of IV Lasix. We will obtain a chest x-ray today and switch his Lasix from IV to p.o. He is in atrial fib, rate is better controlled. OBJECTIVE: VITALS: Stable. NECK: JVD 1 cm. HEART: S1, S2 heard normally. Irregular rhythm noted, short systolic murmur noted. LUNGS: Reveal improved air entry. ABDOMEN: Unchanged. EXTREMITIES: Lower extremities exam unchanged. Plan is to continue his current medications. Switch him from Lasix IV to p.o. MMODL / IJN: [id number] /
[2023-01-05] MEDS: IPRATROPIUM-ALBUTEROL 3 ML NEB INHALATION PRN ×3 (08:22→19:41)
[2023-01-05] MEDS: BUDESONIDE 1 MG/2 ML NEBU INHALATION SCH ×2 (08:22→19:42)
[2023-01-05] MEDS: APIXABAN 5 MG TAB PO SCH ×2 (09:37→16:47)
[2023-01-05] MEDS: allopurinoL 100 MG TAB PO SCH (09:37)
[2023-01-05] MEDS: CHOLECALCIFEROL 25 MCG (1000 IU) TABLET PO SCH (09:37)
[2023-01-05] MEDS: CLOPIDOGREL 75 MG TAB PO SCH (09:38)
--- NOTE | 2023-01-05 09:41 | XR ---
EXAMINATION TYPE: XR chest 1V portable DATE OF EXAM: 01/05/2023 COMPARISON: 01/01/2023 HISTORY: CHF\COPD TECHNIQUE: Single frontal view of the chest is obtained. FINDINGS: There is bilateral subsegmental consolidation small effusion. There is mild central venous congestion. Heart is enlarged. Cardiac device and postoperative changes involving the vertebral column. No pneumothorax. Diffuse ost eopenia. IMPRESSION: 1. Bilateral small effusion correlate for mild CHF.
[2023-01-05] MEDS: DAPAGLIFLOZIN PROPANEDIOL 10 MG TABLET PO SCH (09:46)
[2023-01-05] MEDS: OXYBUTYNIN XL 5 MG TAB.ER.24 PO SCH (09:47)
[2023-01-05] MEDS: AMIODARONE 200 MG TAB PO SCH ×2 (09:47→20:57)
[2023-01-05] MEDS: THIAMINE 100 MG TAB PO SCH (09:47)
[2023-01-05] MEDS: SODIUM BICARBONATE TAB 650 MG TAB PO SCH ×2 (09:47→16:48)
[2023-01-05] MEDS: LACTOBACILLUS ACIDOPHILUS/PECT 1 EACH CAPSULE PO SCH (09:47)
[2023-01-05] MEDS: FUROSEMIDE 40 MG TAB PO SCH ×2 (09:47→16:47)
[2023-01-05] MEDS: FERROUS SULFATE 325 MG TAB PO SCH (09:47)
[2023-01-05] MEDS: METOPROLOL SUCCINATE (ER) 50 MG TAB.ER.24H PO SCH ×3 (09:48→20:56)
[2023-01-05] MEDS: LIDOCAINE 5% PATCH TOPICAL SCH (09:48)
--- NOTE | 2023-01-05 11:03 | P.PN ---
Subjective Progress Note Date: 01/05/23 Patient is a 72-year-old male with systolic CHF, A. fib on Eliquis, CAD status post stents, COPD, type 2 diabetes, and hypertension who presented from rehab with atrial fibrillation with RVR and hypotension. Patient was recently admitted for Proteus bacteremia and was on antibiotics. In the ED his vitals were within normal limits. Chest x-ray independently interpreted, shows mild interstitial opacities. WBC 15.4, hemoglobin 11.1, sodium 135, bicarb 21, anion gap 14, BUN 40, creatinine 1.34 at baseline, glucose 114, troponin negative, TSH mildly elevated at 4.9, urinalysis shows large leukocyte esterase, negative nitrates. Patient was admitted for atrial fibrillation with RVR. He received 1 dose of IV metoprolol and was conitnued on his home amio. Found to be C. difficile positive. Urinary catheter was exchanged. Started on oral vancomycin. Patient became hypotensive, requiring IV fluids. He required transfer to the ICU. Also on IV Flagyl. Cardiology and pulmonology following. His stools have been slowing down. He was able to wean off of vasopressors on 12/31. He continue to improve daily. Pending physical therapy and likely discharge to subacute rehab. Patient seen and examined at bedside. 2 bowel movements yesterday, none today. He denies any chest pain, shortness of breath. Vital signs reviewed General: nontoxic, no distress, appears at stated age Cardiovascular: S1S2 reg, no murmur, positive posterior tibial pulse bilateral, Lungs: Course bs bilateral, no rhonchi, no rales , no accessory muscle use Abdominal: soft, nontender to palpation, no guarding, no appreciable organomegaly Ext: no gross muscle atrophy, 2+ edema b/l lower extremities, 1+ b/l upper extremity edema, no contractures Neuro: CN II-XI grossly intact, no focal neuro deficits Psych: Alert, oriented, appropriate affect Assessment/Plan: C diff colitis with septic shock (shock resolved) Recently treated proteus bacteremia CKD stage III Metabolic acidosis Acute on chronic Anemia of chronic disease related to CKD -Continue oral vancomycin 125 mg 4 times a day, completed course of IV Flagyl -Pulmonology following -Still holding home antihypertensives, if blood pressure stays stable, consider adding home medications - follow BP, avoid nephrotoxic agents - repeat BMP and CBC in AM Type 2 DM, insulin dependent -Sliding-scale insulin -Levemir 10 units at night -Farxiga 10 mg daily -Follow blood sugars -Glipizide on hold - A1C 6.2 Acute on chronic anemia -1 unit pRBCs - Baseline Hgb 8-9 - repeat CBC in AM Atrial fibrillation with rapid ventricular response Chronic systolic CHF with EF 35-40% CAD --Cardiology note reviewed, IV Lasix switched to oral Lasix 40 mg twice a day -On metoprolol succinate 50 mg 3 times a day -Continue amiodarone 200 mg twice a day -Eliquis 5 mg twice daily -Plavix 75 mg daily Hypokalemia -Getting 20 mEq IV potassium Hypomagnesemia -Ordered 2 g magnesium sulfate IV Resolved: Indwelling Jacobs catheter present on admission, exchanged RAJAN Mild hyponatremia - anticipate that patient can transition back to rehab once fluid status is optimized. On discharge will need for continue oral vanco, but will not need IV abx. Imaging: None new Hospital Course: Chest x-ray ncreased pulmonary vasculature bilaterally with mild fluid accumulation in the minor fissure CT abdomen and pelvis: Proctocolitis, persistent urinary bladder wall thickening Data Review: Labs reviewed from today: WBC 10.6, hemoglobin 8.6, creatinine 1.32, potassium 3.4, magnesium 1.6 DVT prophylaxis: Eliquis Anticipated discharge date: in24-[address]: return to SNF Objective - Vital Signs Vital signs: Vital Signs Temp 97.8 F 01/05/23 08:00 Pulse 102 H 01/05/23 10:00 Resp 25 H 01/05/23 10:00 BP 147/103 01/05/23 10:00 Pulse Ox 95 01/05/23 10:00 FiO2 Intake & Output 01/04/23 01/05/23 01/05/23 18:59 06:59 18:59 Intake Total 220 Output Total 1100 1100 Balance -1100 -880 Weight 113.8 kg Intake: IV 220 0.9 KVO 120 metroNIDAZOLE-NS PMX 500 100 mg In Saline 1 100ml.bag @ 100 mls/hr IVPB Q8HR YESSY Rx#:[id number] Output: Urine 1100 1100 Other: Voiding Method Indwelling Catheter Indwelling Catheter Indwelling Catheter # Bowel Movements 1 - Labs CBC & Chem 7: 01/05/23 04:18 01/05/23 04:18 Labs: Abnormal Lab Results - Last 24 Hours (Table) 01/04/23 01/04/23 01/04/23 Range/Units 11:49 16:40 19:53 RBC (4.30-5.90) m/uL Hgb (13.0-17.5) gm/dL Hct (39.0-53.0) % MCV (80.0-100.0) fL RDW (11.5-15.5) % Neutrophils # (1.3-7.7) k/uL Lymphocytes # (1.0-4.8) k/uL Potassium (3.5-5.1) mmol/L Carbon Dioxide (22-30) mmol/L BUN (9-20) mg/dL Creatinine (0.66-1.25) mg/dL Glucose (74-99) mg/dL POC Glucose (mg/dL) 215 H 201 H 177 H (70-110) mg/dL Calcium (8.4-10.2) mg/dL 01/05/23 01/05/23 01/05/23 Range/Units 04:18 04:18 06:25 RBC 2.61 L (4.30-5.90) m/uL Hgb 8.6 L (13.0-17.5) gm/dL Hct 26.4 L (39.0-53.0) % MCV 101.4 H (80.0-100.0) fL RDW 18.5 H (11.5-15.5) % Neutrophils # 8.8 H (1.3-7.7) k/uL Lymphocytes # 0.8 L (1.0-4.8) k/uL Potassium 3.4 L (3.5-5.1) mmol/L Carbon Dioxide 21 L (22-30) mmol/L BUN 40 H (9-20) mg/dL Creatinine 1.32 H (0.66-1.25) mg/dL Glucose 118 H (74-99) mg/dL POC Glucose (mg/dL) 123 H (70-110) mg/dL Calcium 8.0 L (8.4-10.2) mg/dL
--- NOTE | 2023-01-05 11:44 | P.PN ---
Subjective Progress Note Date: 01/05/23 Principal diagnosis: Acute C. diff colitis, with hypovolemic hypotension and intravascular depletion This is a 72-year-old male patient who is being seen in the intensive care unit for hypotension C. diff colitis. The patient overnight became hypotensive and was given a total of 2 L of normal saline. He was having also issues with atrial fibrillation with rapid ventricular response. Because of all these issues, the patient got transferred to the intensive care unit. The patient is known to our services. The patient was in the hospital treated for acute hypoxic respiratory failure due to CHF and he was discharged home on 12/23/2022. Note that during his early hospitalization, the patient was septic with Proteus mirabilis and this was thought to be related to urinary tract infection and secondary septicemia. During his earlier admission, the patient also had an acute kidney injury and the creatinine was as high as 1.9 and subsequently dropped to 1.2 prior to his discharged. He is known to systolic heart failure with an ejection fraction of 35%. He has a combination of comorbidities including coronary artery disease, previous PCI, and is also diabetic, has previous history of chronic atrial fibrillation, has history of non-sustained ventricle tachycardia and he has an AICD in place. He has hypertension hyperlipidemia and is also obese with a BMI of 36. The patient was hospital was because of C. diff colitis and this has been confirmed. Stool for C. diff has been positive. The patient is currently on IV Flagyl and oral vancomycin 125 mg by mouth 4 times a day. Lactic acid level peaked at 2.1 and up to 1.7. Based on his underlying diarrhea, the patient is having a component of melena negative metabolic acidosis. Serum bicarbs at 17. BUN is at 41 with a creatinine of 1.3 and a sodium level is at 129. He is currently on oral bicarb. Is also on normal saline running at 125 cc an hour. He remains in atrial fibrillation. He is currently on amiodarone 200 mg by mouth once a day and is also metoprolol 50 mg twice a day. Is also limited on multiple anticoagulation with Eliquis. He is taking Plavix. Is also on Levemir insulin 10 units for blood sugar control. His white cell cause of 9.7. Is currently on oxygen at 3 L nasal cannula. His chest x-ray shows no acute abnormalities. He has an AICD in place. No signs of any heart failure. He does have a compression fracture in his thoracic spine and he has undergone a kyphoplasty and he also has postop changes involving the thoracic spine including a medical place to stabilize the spine. He is currently afebrile. He still having frequent liquidy bowel movements related to his undergoing C. diff colitis. His UA was abnormal at the time of admission. Nevertheless, the urine cultures are still negative. He has a Jacobs catheter in place. Today's evaluation of 12/31/2022, the patient looks alert and awake. No nausea, no emesis, he had 2 episodes of diarrhea yesterday, none for this morning. He remains on oral vancomycin and IV Flagyl. No fever or chills. The white cell count is improving. He is also given fluids in the form of normal saline at 125 mL an hour. His blood pressure is stable. He remains in atrial fibrillation. Rate is under better control. He remains on a combination of amiodarone and metoprolol for rate control. His Toprol was increased up to 50 mg twice a day and his amiodarone was also increased at 200 mg twice a day. He remains on anticoagulation. Hemoglobin is stable at 7.2. Creatinine is stable at 1.5 with a BUN of 45 and a sodium level is at 142. The chest x-ray from today is showing no changes compared to yesterday. No signs of any fluid overload. Jacobs catheter is in place. The patient has adequate urine output. He remains on oxygen at 3 L. On 01/01/2023, the patient continues to be treated for C. diff colitis. He remains on oral vancomycin and IV Flagyl. He had only one liquidy bowel movements since yesterday. As such, the colitis is settling down. No nausea. No abdominal pain. Does not look toxic at all. The white cell count is up to 9.5. At the same time, the patient had drop in hemoglobin down to 6.8. No evidence of any bleeding. He is on anticoagulation with Eliquis. He will be given a unit of packed RBC. Meanwhile, he remains on normal saline at rate of 50. His BUN is at 43 with a creatinine of 1.5. The patient's serum bicarbs of 15 and a sodium level is at 135. His cardiac rhythm is controlled and atrial fibrillation. No hypotension. No pressors for now. He has taken metoprolol 50 mg by mouth twice a day and amiodarone 200 mg by mouth twice a day. He is on oral bicarb 650 mg twice a day. He is on Levemir insulin along with Farxiga. No other issues otherwise for now. He remains on oxygen at 3 L. 01/02/2023, the patient is awake and having breakfast this morning. He has a weak appetite. He had 2 bowel movements yesterday that was liquidy and is still having some episodes of diarrhea. No nausea. No vomiting. No abdominal pain. No leukocytosis. He remains on a combination of IV Flagyl and oral vancomycin. His BUN is at 39 with a creatinine of 1.1. His hemoglobin dropped down to 6.8 yesterday and based on that the patient was given units of packed RBC and a follow-up hemoglobin is at 8.7. No evidence of any GI bleed. I kept his anticoagulants for now. He remained nature fibrillation. He days hemodynamically stable. IV fluids are running at KVO. Creatinine is down to 1.1 with a BUN of 39, sodium level is at 138, the risk was at 13.1. He remains on 3 L of oxygen by nasal cannula. His calm and comfortable. No significant respiratory distress. He is still having a component of melena negative metabolic acidosis related to his diarrhea. He was given oral bicarb. Nevertheless, his serum bicarb continues to drop it is currently down to 12. He is awake and alert. He is communicating. No other new complaints. No pressors. He remains on Levemir insulin and Farxiga. 01/03/2023, the patient is not having any active diarrhea. He did have 2 bowel movements yesterday the patient and since then no further bowel movement with activity. He remains on Flagyl and vancomycin. Doing well. Currently on oxygen at 2 L. Cardiac rhythm is A. fib. Hemoglobin stable at 8.4. BUN is at 39 with a creatinine of 1.1. The patient was given a dose of Lasix yesterday 40 mg IV push and he had good urine output. I note that the patient was quite swollen yesterday. I started him on diuretics and he responded nicely. His breathing slightly labored on today's evaluation. I will suggest continuing diuretics for now. No chest x-rays available from today. Last chest x-ray was from yesterday and showed no acute abnormalities. He does have cardiomegaly. Serum bicarb is improved and is currently up to 18. The enzymes at 39 with a creatinine of 1.1. White cell cause of 9.4. He is tolerating diet. No pressors. He remains on Levemir insulin and Farxiga. Patient was reevaluated today on 01/04/23, he is in the ICU, on 2 L nasal cannula, not in any distress. Patient is doing fairly well, hemodynamically stable, no further episodes of diarrhea, the plan is to transfer the patient out of the ICU to [facility]. Patient is relatively asymptomatic his CBC is normal except for hemoglobin of 8.3 basic metabolic profile is normal bicarb is 16. BUN is 40 creatinine 1.1 Reevaluated today on 01/05/23, patient remains in the ICU as an overflow, patient is supposed to go to a monitor bed on selective/cardiac floor. He is on room air, denies any specific complaints except continues to have intermittent episodes of diarrhea. Patient is being treated for C. difficile colitis. Chest x-ray this morning shows small bilateral pleural effusions consistent with mild CHF, patient is receiving intermittently diuretics. Patient is relatively asymptomatic WBC count is 10.6 hemoglobin 8.6 basic metabolic profile is normal except for potassium of 3.4, BUN of 40 creatinine 1.3 Objective - Vital Signs Vital signs: Vital Signs Temp 97.8 F 01/05/23 08:00 Pulse 102 H 01/05/23 10:00 Resp 25 H 01/05/23 10:00 BP 147/103 01/05/23 10:00 Pulse Ox 95 01/05/23 10:00 FiO2 Intake & Output 01/04/23 01/05/23 01/05/23 18:59 06:59 18:59 Intake Total 220 Output Total 1100 1100 Balance -1100 -880 Weight 113.8 kg Intake: IV 220 0.9 KVO 120 metroNIDAZOLE-NS PMX 500 100 mg In Saline 1 100ml.bag @ 100 mls/hr IVPB Q8HR [facility] Rx#:[id number] Output: Urine 1100 1100 Other: Voiding Method Indwelling Catheter Indwelling Catheter Indwelling Catheter # Bowel Movements 1 - Exam Physical Exam: Revealed 72-year-old white male on room air, sitting in bed, very comfortable. Head: Atraumatic, normocephalic. HEENT:[Neck is supple.] [No neck masses.] [No thyromegaly.] [No JVD.] Chest: [Clear throughout, no crackles, no rhonchi, no wheezes.] Cardiac Exam: [Normal S1 and S2, no S3 gallop, no murmur.] Abdomen: [Soft, nontender, no megaly, no rebound, no guarding, normal bowel sounds.] Extremities: [No clubbing, trace of bipedal edema, no cyanosis.] Neurological Exam: [No focal neurologic deficit.] Psychiatric: Normal mood affect and normal mental status examination. Skin: No rashes - Labs CBC & Chem 7: 01/05/23 04:18 01/05/23 04:18 Labs: Abnormal Lab Results - Last 24 Hours (Table) 01/04/23 01/04/23 01/04/23 Range/Units 11:49 16:40 19:53 RBC (4.30-5.90) m/uL Hgb (13.0-17.5) gm/dL Hct (39.0-53.0) % MCV (80.0-100.0) fL RDW (11.5-15.5) % Neutrophils # (1.3-7.7) k/uL Lymphocytes # (1.0-4.8) k/uL Potassium (3.5-5.1) mmol/L Carbon Dioxide (22-30) mmol/L BUN (9-20) mg/dL Creatinine (0.66-1.25) mg/dL Glucose (74-99) mg/dL POC Glucose (mg/dL) 215 H 201 H 177 H (70-110) mg/dL Calcium (8.4-10.2) mg/dL 01/05/23 01/05/23 01/05/23 Range/Units 04:18 04:18 06:25 RBC 2.61 L (4.30-5.90) m/uL Hgb 8.6 L (13.0-17.5) gm/dL Hct 26.4 L (39.0-53.0) % MCV 101.4 H (80.0-100.0) fL RDW 18.5 H (11.5-15.5) % Neutrophils # 8.8 H (1.3-7.7) k/uL Lymphocytes # 0.8 L (1.0-4.8) k/uL Potassium 3.4 L (3.5-5.1) mmol/L Carbon Dioxide 21 L (22-30) mmol/L BUN 40 H (9-20) mg/dL Creatinine 1.32 H (0.66-1.25) mg/dL Glucose 118 H (74-99) mg/dL POC Glucose (mg/dL) 123 H (70-110) mg/dL Calcium 8.0 L (8.4-10.2) mg/dL Assessment and Plan Assessment: Impression: Acute hypovolemic hypotension, hypovolemic shock Acute C. difficile colitis Acute hypovolemic hyponatremia Non-anion gap metabolic acidosis secondary to diarrhea Acute kidney injury with known history of chronic kidney disease stage II to 3 Type 2 diabetes History of nonsustained ventricular tachycardia and previous AICD in place History of hypertension History of chronic ischemic cardiomyopathy with ejection fraction of 35%, moderate mitral regurgitation and tricuspid regurgitation with pulmonary hypertension Recommendation: Continue to monitor I's and O's and his GI symptoms. Continue oral vancomycin 125 mg 4 times a day, patient is now off Flagyl, full course IV Flagyl was completed Continue Plavix and eliquis Continue amiodarone Transfer patient out of the ICU to a monitor bed on selective Continue physical therapy Continue GI and DVT prophylaxis Advanced diet as tolerated t goal is to eventually transferred to ECF. We will continue to follow Time with Patient: Less than 30
[2023-01-05 12:04] LABS: Glucose,Whole Blood 154 mg/dL (70-110)
[2023-01-05] MEDS: MAGNESIUM SULFATE-D5W PMX 1 GM in DEXTROSE/WATER 1 100ML.BAG IVPB SCH ×2 (12:19→13:32)
[2023-01-05] MEDS: VANCOMYCIN 125 MG CAPSULE PO SCH ×3 (13:32→20:56)
[2023-01-05 16:40] LABS: Glucose,Whole Blood 195 mg/dL (70-110)
[2023-01-05] MEDS: MULTIVITAMINS, THERA 1 EACH TAB PO SCH (16:47)
[2023-01-05 19:56] LABS: Glucose,Whole Blood 200 mg/dL (70-110)
[2023-01-05] MEDS: ATORVASTATIN 40 MG TAB PO SCH (20:57)
[2023-01-05] MEDS: INSULIN DETEMIR (LEVEMIR) 100 UNIT/ML SYR SQ SCH (20:57)
[2023-01-05] MEDS: risperiDONE 0.5 MG TAB PO SCH (20:57)
[2023-01-05] MEDS: SERTRALINE 50 MG TAB PO SCH (20:57)
[2023-01-06 06:12] LABS: Anisocytosis Slight; Basophils # (A) 0.1 k/uL (0-0.2); Basophils % (A) 0 %; Eosinophils # (A) 0.3 k/uL (0-0.7); Eosinophils % (A) 2 %; HCT 29.6 % (39.0-53.0); HGB 9.2 gm/dL (13.0-17.5); Hypochromasia Marked; Lymphocytes # (A) 0.8 k/uL (1.0-4.8); Lymphocytes % (A) 7 %; MCH 32.6 pg (25.0-35.0); MCHC 30.9 g/dL (31.0-37.0); MCV 105.5 fL (80.0-100.0); Macrocytosis Marked; Monocytes # (A) 0.6 k/uL (0-1.0); Monocytes % (A) 5 %; Neutrophils # (A) 9.9 k/uL (1.3-7.7); Neutrophils % (A) 84 %; Platelet Count 326 k/uL (150-450); Poikilocytosis Moderate; RBC 2.81 m/uL (4.30-5.90); RDW 19.1 % (11.5-15.5); WBC 11.8 k/uL (3.8-10.6)
[2023-01-06 06:24] LABS: African American GFR (CKD) 66 (>60 ml/min/1.73 sqM); Anion Gap 11 mmol/L; Blood Urea Nitrogen 41 mg/dL (9-20); Calcium 8.2 mg/dL (8.4-10.2); Carbon Dioxide 20 mmol/L (22-30); Chloride 105 mmol/L (98-107); Glucose 133 mg/dL (74-99); Magnesium 1.9 mg/dL (1.6-2.3); Non-African American GFR(CKD) 57 (>60 ml/min/1.73 sqM); Potassium 3.8 mmol/L (3.5-5.1); Sodium 136 mmol/L (137-145)
[2023-01-06 06:49] LABS: Glucose,Whole Blood 122 mg/dL (70-110)
[2023-01-06] MEDS: INSULIN ASPART (NovoLOG) 100 UNIT/ML VIAL SQ SCH ×2 (07:39→11:32)
[2023-01-06] MEDS: IPRATROPIUM-ALBUTEROL 3 ML NEB INHALATION PRN (08:05)
[2023-01-06] MEDS: BUDESONIDE 1 MG/2 ML NEBU INHALATION SCH (08:05)
[2023-01-06] MEDS ORDERED: METOPROLOL TARTRATE 50 MG TAB PO SCH (09:00)
--- NOTE | 2023-01-06 09:02 | PN ---
PROGRESS NOTE SUBJECTIVE: Mr. Guevara is in atrial fib controlled rate, hemodynamically stable, breathing better, has no chest pain, is going to be transferred to the halfway facility. I reviewed his medications. We will switch him from metoprolol succinate 50 mg t.i.d. to tartrate 50 mg t.i.d., continue amiodarone at 200 mg b.i.d., can be decreased daily in about a week. I advised to decrease it to 200 mg daily in about a week ago. Vital signs are stable. S1, S2 heard normally. Irregular rhythm noted. Short systolic murmur noted. Lungs reveal improved air entry. Abdomen and lower extremity exam is unchanged. MMODL / IJN: [id number] /
[2023-01-06] MEDS: CYCLOBENZAPRINE 5 MG TAB PO SCH ×2 (09:40→14:40)
[2023-01-06] MEDS: APIXABAN 5 MG TAB PO SCH (09:41)
[2023-01-06] MEDS: CHOLECALCIFEROL 25 MCG (1000 IU) TABLET PO SCH (09:41)
[2023-01-06] MEDS: allopurinoL 100 MG TAB PO SCH (09:41)
[2023-01-06] MEDS: PANTOPRAZOLE 40 MG TABLET PO SCH (09:41)
[2023-01-06] MEDS: DAPAGLIFLOZIN PROPANEDIOL 10 MG TABLET PO SCH (09:42)
[2023-01-06] MEDS: LACTOBACILLUS ACIDOPHILUS/PECT 1 EACH CAPSULE PO SCH (09:42)
[2023-01-06] MEDS: CLOPIDOGREL 75 MG TAB PO SCH (09:42)
[2023-01-06] MEDS: FERROUS SULFATE 325 MG TAB PO SCH (09:42)
[2023-01-06] MEDS: OXYBUTYNIN XL 5 MG TAB.ER.24 PO SCH (09:42)
[2023-01-06] MEDS: SODIUM BICARBONATE TAB 650 MG TAB PO SCH (09:43)
[2023-01-06] MEDS: FUROSEMIDE 40 MG TAB PO SCH (09:43)
[2023-01-06] MEDS: AMIODARONE 200 MG TAB PO SCH (09:43)
[2023-01-06] MEDS: THIAMINE 100 MG TAB PO SCH (09:43)
[2023-01-06] MEDS: LIDOCAINE 5% PATCH TOPICAL SCH (09:43)
[2023-01-06] MEDS: VANCOMYCIN 125 MG CAPSULE PO SCH ×2 (10:04→14:40)
[2023-01-06 11:08] VITALS: BP 128/92; PULSE 106; RESP 28; TEMP 97.7
--- NOTE | 2023-01-06 11:20 | P.DS ---
Providers Date of admission: 12/27/22 19:44 Expected date of discharge: 01/06/23 Attending physician: Giovanny Guerrero MD Consults: 12/29/22 22:20 Consult Physician Routine Consulting Provider: Hakan Angela Consult Reason/Comments: ABN Cardiac Rhythm, Pacer, A-Fib RVR Do you want consulting provider notified?: Yes, Notify in am 12/30/22 07:50 Consult Physician Urgent Consulting Provider: Dwayne Antonio Consult Reason/Comments: Cdiff colitis, septic, may need pressors Do you want consulting provider notified?: Yes Primary care physician: [facility] Course: Discharge Diagnosis: C diff colitis with septic shock (shock resolved) Recently treated proteus bacteremia CKD stage III Metabolic acidosis Acute on chronic Anemia of chronic disease related to CKD Type 2 DM, insulin dependent Acute on chronic anemia Atrial fibrillation with rapid ventricular response Chronic systolic CHF with EF 35-40% CAD Hypokalemia Hypomagnesemia Indwelling Jacobs catheter present on admission, exchanged Mild hyponatremia Hospital Course: Patient is a 72-year-old male with systolic CHF, A. fib on Eliquis, CAD status post stents, COPD, type 2 diabetes, and hypertension who presented from rehab with atrial fibrillation with RVR and hypotension. Patient was recently admitted for Proteus bacteremia and was on antibiotics. In the ED his vitals were within normal limits. Chest x-ray independently interpreted, shows mild interstitial opacities. WBC 15.4, hemoglobin 11.1, sodium 135, bicarb 21, anion gap 14, BUN 40, creatinine 1.34 at baseline, glucose 114, troponin negative, TSH mildly elevated at 4.9, urinalysis shows large leukocyte esterase, negative nitrates. Patient was admitted for atrial fibrillation with RVR. He received 1 dose of IV metoprolol and was conitnued on his home amio. Found to be C. difficile positive. Urinary catheter was exchanged. Started on oral vancomycin. Patient became hypotensive, requiring IV fluids. He required transfer to the ICU. Also on IV Flagyl, completed course. Cardiology and pulmonology consulted. His stools have been slowing down. He was able to wean off of vasopressors on 12/31. He continue to improve daily. Diuretics restarted. Heart rate within normal limits. He is being discharged back to rehab facility on oral vancomycin. Patient seen and examined at bedside. Vital signs reviewed and stable. General: nontoxic, no distress, appears at stated age Cardiovascular: S1S2 reg, no murmur, positive posterior tibial pulse bilateral, Lungs: Course bs bilateral, no rhonchi, no rales , no accessory muscle use Abdominal: soft, nontender to palpation, no guarding, no appreciable organomegaly Ext: no gross muscle atrophy, 2+ edema b/l lower extremities, 1+ b/l upper extremity edema, no contractures Neuro: CN II-XI grossly intact, no focal neuro deficits Psych: Alert, oriented, appropriate affect A total of 33 minutes of time were spent preparing this complex discharge summary. Patient was discharged on 01/06/23 at 11:15. Patient Condition at Discharge: Stable Plan - Discharge Summary New Discharge Prescriptions: New Metoprolol Tartrate [Lopressor] 50 mg PO TID tab Amiodarone [Cordarone] 200 mg PO BID tab Acetaminophen Tab [Tylenol] 650 mg PO Q6HR PRN tab PRN Reason: Mild Pain Or Fever > 100.5 Vancomycin 125 mg PO QID #24 cap Continue Ferrous Sulfate [Iron] 325 mg PO DAILY@0800 risperiDONE [RisperDAL] 0.5 mg PO HS Sertraline HCl [Zoloft] 50 mg PO HS Apixaban [Eliquis] 5 mg PO BID@0800,1700 Clopidogrel [Plavix] 75 mg PO DAILY@0800 Lidocaine 5% Patch [Lidoderm 5% Patch] 1 patch TRANSDERM DAILY Magnesium Hydroxide [Milk of Magnesia Concentrate] 7,200 mg PO Q48H PRN PRN Reason: Constipation bisacodyL [Dulcolax] 10 mg RECTAL DAILY PRN PRN Reason: Constipation Na Phos,M-B/Na Phos,Di-Ba [Fleet Adult] 133 ml RECTAL DAILY PRN PRN Reason: Constipation Cyclobenzaprine [Flexeril] 5 mg PO TID@0600,1400,2200 Sodium Bicarbonate Tab 650 mg PO BID@0800,1700 Furosemide [Lasix] 40 mg PO BID@0600,1400 Potassium Chloride ER [K-Dur 20] 20 meq PO BID@0800,1700 oxyBUTYnin chloride [oxyBUTYnin chloride ER] 5 mg PO DAILY@0800 Cholecalciferol [Vitamin D3 (25 Mcg = 1000 Iu)] 50 mcg PO DAILY@0800 Ceravite Senior(With Lutein) 1 tab PO DAILY@1700 Lactobacillus Acidophilus [Acidophilus Probiotic] 1 cap PO DAILY@0800 Budesonide [Pulmicort] 1 mg INHALATION RT-BID@0800,1700 Dapagliflozin Propanediol [Farxiga] 10 mg PO DAILY@0800 Pantoprazole [Protonix] 40 mg PO DAILY@0600 allopurinoL [Zyloprim] 100 mg PO DAILY@0800 Thiamine HCl [Vitamin B-1] 100 mg PO DAILY@0800 Sacubitril/Valsartan [Entresto 24 mg-26 mg Tablet] 1 tab PO BID@0800,1700 Atorvastatin [Lipitor] 40 mg PO HS Ipratropium-Albuterol Nebulize [Duoneb 0.5 mg-3 mg/3 ml Soln] 3 ml INHALATION RT-Q6H PRN PRN Reason: COPD Insulin Detemir (Levemir) [Levemir] 10 unit SQ HS each Changed Spironolactone [Aldactone] 12.5 mg PO DAILY@0800 #0 Discontinued glipiZIDE [Glucotrol] 5 mg PO BID@0800,1700 Acetaminophen Tab [Tylenol] 1,000 mg PO TID@0600,1400,2200 HYDROcodone/APAP 7.5-325MG [Frazee 7.5-325] 1 tab PO Q6HR PRN #12 tab PRN Reason: Pain Metoprolol Succinate (ER) [Toprol XL] 50 mg PO BID@0800,1700 Amiodarone [Cordarone] 200 mg PO DAILY@0800 Acetaminophen [Tylenol] 650 mg PO Q4H PRN PRN Reason: Fever And/ Or Pain Loperamide [Imodium] 2 mg PO DIRECTED PRN PRN Reason: Diarrhea metOLazone [Zaroxolyn] 2.5 mg PO DAILY@0800 Discharge Medication List Ferrous Sulfate [Iron] 325 mg PO DAILY@0800 10/21/20 [History] Sertraline HCl [Zoloft] 50 mg PO HS 10/21/20 [History] allopurinoL [Zyloprim] 100 mg PO DAILY@0800 10/21/20 [History] risperiDONE [RisperDAL] 0.5 mg PO HS 10/21/20 [History] Apixaban [Eliquis] 5 mg PO BID@0800,1700 05/09/21 [History] Thiamine HCl [Vitamin B-1] 100 mg PO DAILY@0800 05/09/21 [History] Sacubitril/Valsartan [Entresto 24 mg-26 mg Tablet] 1 tab PO BID@0800,1700 10/01 [History] Atorvastatin [Lipitor] 40 mg PO HS 10/16/22 [History] Clopidogrel [Plavix] 75 mg PO DAILY@0800 10/16/22 [History] Lidocaine 5% Patch [Lidoderm 5% Patch] 1 patch TRANSDERM DAILY 10/17/22 [History] Cholecalciferol [Vitamin D3 (25 Mcg = 1000 Iu)] 50 mcg PO DAILY@0800 12/14/22 [History] Cyclobenzaprine [Flexeril] 5 mg PO TID@0600,1400,2200 12/14/22 [History] Furosemide [Lasix] 40 mg PO BID@0600,1400 12/14/22 [History] Ipratropium-Albuterol Nebulize [Duoneb 0.5 mg-3 mg/3 ml Soln] 3 ml INHALATION RT-Q6H PRN 12/14/22 [History] Magnesium Hydroxide [Milk of Magnesia Concentrate] 7,200 mg PO Q48H PRN 12/14/22 [History] Na Phos,M-B/Na Phos,Di-Ba [Fleet Adult] 133 ml RECTAL DAILY PRN 12/14/22 [History] Potassium Chloride ER [K-Dur 20] 20 meq PO BID@0800,1700 12/14/22 [History] Sodium Bicarbonate Tab 650 mg PO BID@0800,1700 12/14/22 [History] bisacodyL [Dulcolax] 10 mg RECTAL DAILY PRN 12/14/22 [History] oxyBUTYnin chloride [oxyBUTYnin chloride ER] 5 mg PO DAILY@0800 12/14/22 [History] Insulin Detemir (Levemir) [Levemir] 10 unit SQ HS each 12/22/22 [Rx] Budesonide [Pulmicort] 1 mg INHALATION RT-BID@0800,1700 12/27/22 [History] Ceravite Senior(With Lutein) 1 tab PO DAILY@1700 12/27/22 [History] Dapagliflozin Propanediol [Farxiga] 10 mg PO DAILY@0800 12/27/22 [History] Lactobacillus Acidophilus [Acidophilus Probiotic] 1 cap PO DAILY@0800 12/27/22 [History] Pantoprazole [Protonix] 40 mg PO DAILY@0600 12/27/22 [History] Acetaminophen Tab [Tylenol] 650 mg PO Q6HR PRN tab 01/06/23 [Rx] Amiodarone [Cordarone] 200 mg PO BID tab 01/06/23 [Rx] Metoprolol Tartrate [Lopressor] 50 mg PO TID tab 01/06/23 [Rx] Spironolactone [Aldactone] 12.5 mg PO DAILY@0800 #0 01/06/23 [Rx] Vancomycin 125 mg PO QID #24 cap 01/06/23 [Rx] Follow up Appointment(s)/Referral(s): Heide Guerra MD [STAFF PHYSICIAN] - 1 Week Ten Mccartney MD [REFERRING] - 1 Week Patient Instructions/Handouts: C. Diff (Clostridioides Difficile) Infection (ED) Activity/Diet/Wound Care/Special Instructions: Please see your accordion repairer and PCP. Reduce amiodarone to 200 mg daily after 1 week. Discharge Disposition: TRANSFER TO SNF/ECF
--- NOTE | 2023-01-06 11:44 | P.PN ---
Subjective Progress Note Date: 01/06/23 Principal diagnosis: Acute C. diff colitis, with hypovolemic hypotension and intravascular depletion This is a 72-year-old male patient who is being seen in the intensive care unit for hypotension C. diff colitis. The patient overnight became hypotensive and was given a total of 2 L of normal saline. He was having also issues with atrial fibrillation with rapid ventricular response. Because of all these issues, the patient got transferred to the intensive care unit. The patient is known to our services. The patient was in the hospital treated for acute hypoxic respiratory failure due to CHF and he was discharged home on 12/23/2022. Note that during his early hospitalization, the patient was septic with Proteus mirabilis and this was thought to be related to urinary tract infection and secondary septicemia. During his earlier admission, the patient also had an acute kidney injury and the creatinine was as high as 1.9 and subsequently dropped to 1.2 prior to his discharged. He is known to systolic heart failure with an ejection fraction of 35%. He has a combination of comorbidities including coronary artery disease, previous PCI, and is also diabetic, has previous history of chronic atrial fibrillation, has history of non-sustained ventricle tachycardia and he has an AICD in place. He has hypertension hyperlipidemia and is also obese with a BMI of 36. The patient was hospital was because of C. diff colitis and this has been confirmed. Stool for C. diff has been positive. The patient is currently on IV Flagyl and oral vancomycin 125 mg by mouth 4 times a day. Lactic acid level peaked at 2.1 and up to 1.7. Based on his underlying diarrhea, the patient is having a component of melena negative metabolic acidosis. Serum bicarbs at 17. BUN is at 41 with a creatinine of 1.3 and a sodium level is at 129. He is currently on oral bicarb. Is also on normal saline running at 125 cc an hour. He remains in atrial fibrillation. He is currently on amiodarone 200 mg by mouth once a day and is also metoprolol 50 mg twice a day. Is also limited on multiple anticoagulation with Eliquis. He is taking Plavix. Is also on Levemir insulin 10 units for blood sugar control. His white cell cause of 9.7. Is currently on oxygen at 3 L nasal cannula. His chest x-ray shows no acute abnormalities. He has an AICD in place. No signs of any heart failure. He does have a compression fracture in his thoracic spine and he has undergone a kyphoplasty and he also has postop changes involving the thoracic spine including a medical place to stabilize the spine. He is currently afebrile. He still having frequent liquidy bowel movements related to his undergoing C. diff colitis. His UA was abnormal at the time of admission. Nevertheless, the urine cultures are still negative. He has a Jacobs catheter in place. Today's evaluation of 12/31/2022, the patient looks alert and awake. No nausea, no emesis, he had 2 episodes of diarrhea yesterday, none for this morning. He remains on oral vancomycin and IV Flagyl. No fever or chills. The white cell count is improving. He is also given fluids in the form of normal saline at 125 mL an hour. His blood pressure is stable. He remains in atrial fibrillation. Rate is under better control. He remains on a combination of amiodarone and metoprolol for rate control. His Toprol was increased up to 50 mg twice a day and his amiodarone was also increased at 200 mg twice a day. He remains on anticoagulation. Hemoglobin is stable at 7.2. Creatinine is stable at 1.5 with a BUN of 45 and a sodium level is at 142. The chest x-ray from today is showing no changes compared to yesterday. No signs of any fluid overload. Jacobs catheter is in place. The patient has adequate urine output. He remains on oxygen at 3 L. On 01/01/2023, the patient continues to be treated for C. diff colitis. He remains on oral vancomycin and IV Flagyl. He had only one liquidy bowel movements since yesterday. As such, the colitis is settling down. No nausea. No abdominal pain. Does not look toxic at all. The white cell count is up to 9.5. At the same time, the patient had drop in hemoglobin down to 6.8. No evidence of any bleeding. He is on anticoagulation with Eliquis. He will be given a unit of packed RBC. Meanwhile, he remains on normal saline at rate of 50. His BUN is at 43 with a creatinine of 1.5. The patient's serum bicarbs of 15 and a sodium level is at 135. His cardiac rhythm is controlled and atrial fibrillation. No hypotension. No pressors for now. He has taken metoprolol 50 mg by mouth twice a day and amiodarone 200 mg by mouth twice a day. He is on oral bicarb 650 mg twice a day. He is on Levemir insulin along with Farxiga. No other issues otherwise for now. He remains on oxygen at 3 L. 01/02/2023, the patient is awake and having breakfast this morning. He has a weak appetite. He had 2 bowel movements yesterday that was liquidy and is still having some episodes of diarrhea. No nausea. No vomiting. No abdominal pain. No leukocytosis. He remains on a combination of IV Flagyl and oral vancomycin. His BUN is at 39 with a creatinine of 1.1. His hemoglobin dropped down to 6.8 yesterday and based on that the patient was given units of packed RBC and a follow-up hemoglobin is at 8.7. No evidence of any GI bleed. I kept his anticoagulants for now. He remained nature fibrillation. He days hemodynamically stable. IV fluids are running at KVO. Creatinine is down to 1.1 with a BUN of 39, sodium level is at 138, the risk was at 13.1. He remains on 3 L of oxygen by nasal cannula. His calm and comfortable. No significant respiratory distress. He is still having a component of melena negative metabolic acidosis related to his diarrhea. He was given oral bicarb. Nevertheless, his serum bicarb continues to drop it is currently down to 12. He is awake and alert. He is communicating. No other new complaints. No pressors. He remains on Levemir insulin and Farxiga. 01/03/2023, the patient is not having any active diarrhea. He did have 2 bowel movements yesterday the patient and since then no further bowel movement with activity. He remains on Flagyl and vancomycin. Doing well. Currently on oxygen at 2 L. Cardiac rhythm is A. fib. Hemoglobin stable at 8.4. BUN is at 39 with a creatinine of 1.1. The patient was given a dose of Lasix yesterday 40 mg IV push and he had good urine output. I note that the patient was quite swollen yesterday. I started him on diuretics and he responded nicely. His breathing slightly labored on today's evaluation. I will suggest continuing diuretics for now. No chest x-rays available from today. Last chest x-ray was from yesterday and showed no acute abnormalities. He does have cardiomegaly. Serum bicarb is improved and is currently up to 18. The enzymes at 39 with a creatinine of 1.1. White cell cause of 9.4. He is tolerating diet. No pressors. He remains on Levemir insulin and Farxiga. Patient was reevaluated today on 01/04/23, he is in the ICU, on 2 L nasal cannula, not in any distress. Patient is doing fairly well, hemodynamically stable, no further episodes of diarrhea, the plan is to transfer the patient out of the ICU to [facility]. Patient is relatively asymptomatic his CBC is normal except for hemoglobin of 8.3 basic metabolic profile is normal bicarb is 16. BUN is 40 creatinine 1.1 Reevaluated today on 01/05/23, patient remains in the ICU as an overflow, patient is supposed to go to a monitor bed on selective/cardiac floor. He is on room air, denies any specific complaints except continues to have intermittent episodes of diarrhea. Patient is being treated for C. difficile colitis. Chest x-ray this morning shows small bilateral pleural effusions consistent with mild CHF, patient is receiving intermittently diuretics. Patient is relatively asymptomatic WBC count is 10.6 hemoglobin 8.6 basic metabolic profile is normal except for potassium of 3.4, BUN of 40 creatinine 1.3 Reevaluated today on 01/06/23, patient remains in the ICU as an overflow, doing fairly well, relatively asymptomatic. Patient is on room air, his chest x-ray from yesterday showed small tiny bilateral pleural effusions remains on diuretics and remains on multiple cardiac meds. WBC count today is 11.8 hemoglobin 9.2 basic metabolic profile is normal BUN is 41 and creatinine 1.2. Objective - Vital Signs Vital signs: Vital Signs Temp 97.7 F 01/06/23 08:00 Pulse 95 01/06/23 08:18 Resp 28 H 01/06/23 08:00 BP 128/92 01/06/23 08:00 Pulse Ox 96 01/06/23 08:00 FiO2 Intake & Output 01/05/23 01/06/23 01/06/23 18:59 06:59 18:59 Intake Total 300 Output Total 800 350 Balance -500 -350 Intake: Oral 300 Output: Urine 800 350 Other: Voiding Method Indwelling Catheter Indwelling Catheter Indwelling Catheter # Bowel Movements 1 - Exam Physical Exam: Revealed 72-year-old white male on room air, sitting in bed, not in any distress, on room air Head: Atraumatic, normocephalic. HEENT:[Neck is supple.] [No neck masses.] [No thyromegaly.] [No JVD.] Chest: [Clear throughout, no crackles, no rhonchi, no wheezes.] Cardiac Exam: [Normal S1 and S2, no S3 gallop, no murmur.] Abdomen: [Soft, nontender, no megaly, no rebound, no guarding, normal bowel sounds.] Extremities: [No clubbing, trace of bipedal edema, no cyanosis.] Neurological Exam: [No focal neurologic deficit.] Psychiatric: Normal mood affect and normal mental status examination. Skin: No rashes - Labs CBC & Chem 7: 01/06/23 05:26 01/06/23 05:26 Labs: Abnormal Lab Results - Last 24 Hours (Table) 01/05/23 01/05/23 01/05/23 Range/Units 12:02 16:39 19:55 WBC (3.8-10.6) k/uL RBC (4.30-5.90) m/uL Hgb (13.0-17.5) gm/dL Hct (39.0-53.0) % MCV (80.0-100.0) fL MCHC (31.0-37.0) g/dL RDW (11.5-15.5) % Neutrophils # (1.3-7.7) k/uL Lymphocytes # (1.0-4.8) k/uL Macrocytosis Sodium (137-145) mmol/L Carbon Dioxide (22-30) mmol/L BUN (9-20) mg/dL Glucose (74-99) mg/dL POC Glucose (mg/dL) 154 H 195 H 200 H (70-110) mg/dL Calcium (8.4-10.2) mg/dL 01/06/23 01/06/23 01/06/23 Range/Units 05:26 05:26 06:48 WBC 11.8 H (3.8-10.6) k/uL RBC 2.81 L (4.30-5.90) m/uL Hgb 9.2 L (13.0-17.5) gm/dL Hct 29.6 L (39.0-53.0) % MCV 105.5 H (80.0-100.0) fL MCHC 30.9 L (31.0-37.0) g/dL RDW 19.1 H (11.5-15.5) % Neutrophils # 9.9 H (1.3-7.7) k/uL Lymphocytes # 0.8 L (1.0-4.8) k/uL Macrocytosis Marked A Sodium 136 L (137-145) mmol/L Carbon Dioxide 20 L (22-30) mmol/L BUN 41 H (9-20) mg/dL Glucose 133 H (74-99) mg/dL POC Glucose (mg/dL) 122 H (70-110) mg/dL Calcium 8.2 L (8.4-10.2) mg/dL Assessment and Plan Assessment: Impression: Acute hypovolemic hypotension, hypovolemic shock Acute C. difficile colitis Acute hypovolemic hyponatremia Non-anion gap metabolic acidosis secondary to diarrhea Acute kidney injury with known history of chronic kidney disease stage II to 3 Type 2 diabetes History of nonsustained ventricular tachycardia and previous AICD in place History of hypertension History of chronic ischemic cardiomyopathy with ejection fraction of 35%, moderate mitral regurgitation and tricuspid regurgitation with pulmonary hypertension Recommendation: Patient has demonstrated significant improvement since admission Would recommend discharge planning and possibly transferred to [facility] once a bed [facility] available at the [facility]. Cleared for discharge if cleared by other consultants/cardiology Time with Patient: Less than 30
== END 2023-01-06 15:10 | DRG 698 ==
LOC: EC 15:52 → 3SCARD 19:44 → 4SSUR 12-28 14:00 → 2SICU 12-30 08:31
PROVIDERS: ADMIT Student in an Organized Health Care Education/Training Program; ATTEND Student in an Organized Health Care Education/Training Program
PROC: 05HF33Z Insertion of Infusion Device into Left Cephalic Vein, Percutaneous Approach (ICD-10-PCS; 2022-12-29)
PROC: 3E033XZ Introduction of Vasopressor into Peripheral Vein, Percutaneous Approach (ICD-10-PCS; 2022-12-31)
PROC: 30233N1 Transfusion of Nonautologous Red Blood Cells into Peripheral Vein, Percutaneous Approach (ICD-10-PCS; principal; 2023-01-01)
DX: T83.518A Infection and inflammatory reaction due to other urinary catheter, initial encounter (principal); A41.59 Other Gram-negative sepsis; N17.0 Acute kidney failure with tubular necrosis; R65.21 Severe sepsis with septic shock; R57.1 Hypovolemic shock; N39.0 Urinary tract infection, site not specified; I13.0 Hypertensive heart and chronic kidney disease with heart failure and stage 1 through stage 4 chronic kidney disease, or unspecified chronic kidney disease; A04.72 Enterocolitis due to Clostridium difficile, not specified as recurrent; E87.1 Hypo-osmolality and hyponatremia; I50.22 Chronic systolic (congestive) heart failure; E87.20 Acidosis, unspecified; I48.19 Other persistent atrial fibrillation; D33.3 Benign neoplasm of cranial nerves; E11.22 Type 2 diabetes mellitus with diabetic chronic kidney disease; E78.5 Hyperlipidemia, unspecified; E86.0 Dehydration; H81.10 Benign paroxysmal vertigo, unspecified ear; N18.30 Chronic kidney disease, stage 3 unspecified; E66.9 Obesity, unspecified; Z68.36 Body mass index [BMI] 36.0-36.9, adult; I25.10 Atherosclerotic heart disease of native coronary artery without angina pectoris; I08.1 Rheumatic disorders of both mitral and tricuspid valves; Z86.16 Personal history of COVID-19; E86.1 Hypovolemia; E86.9 Volume depletion, unspecified; D53.9 Nutritional anemia, unspecified; E83.42 Hypomagnesemia; D63.1 Anemia in chronic kidney disease; E87.6 Hypokalemia; F32.A Depression, unspecified; F41.9 Anxiety disorder, unspecified; I25.5 Ischemic cardiomyopathy; I27.20 Pulmonary hypertension, unspecified; I45.10 Unspecified right bundle-branch block; Z79.01 Long term (current) use of anticoagulants; Y84.6 Urinary catheterization as the cause of abnormal reaction of the patient, or of later complication, without mention of misadventure at the time of the procedure; Z79.02 Long term (current) use of antithrombotics/antiplatelets; Z79.4 Long term (current) use of insulin; Z79.84 Long term (current) use of oral hypoglycemic drugs; Z79.899 Other long term (current) drug therapy; Z87.440 Personal history of urinary (tract) infections; Z87.891 Personal history of nicotine dependence; Z95.5 Presence of coronary angioplasty implant and graft; Z95.810 Presence of automatic (implantable) cardiac defibrillator
CPT/HCPCS: 36415; 71045; 74176; 80048; 80053; 81001; 83540; 83550; 83605; 83735; 84132; 84439; 84443; 84484; 85025; 85027; 85610; 85730; 86850; 86900; 86901; 86920; 87040; 87086; 87324; 93005; 94640; 94760; 96361; 96374; 96375; 99285

== ENCOUNTER 2023-01-21 19:45 | Inpatient (IN) | payer OTHER ==
[2023-01-21] MEDS ORDERED: SODIUM CHLORIDE 0.9% 500 ML 500 ML IV STA ×2 (20:24→22:03)
[2023-01-21] MEDS ORDERED: DEXTROSE 5% IN WATER 100 ML with AMIODARONE 150 MG IV ONE (20:33)
[2023-01-21] MEDS ORDERED: AMIODARONE 360 MG in DEXTROSE 5% IN WATER 200 ML IV ONE ×2 (20:34)
--- NOTE | 2023-01-21 20:52 | ED ---
General Adult HPI - General Chief complaint: Recheck/Abnormal Lab/Rx Stated complaint: Hypotensive Time Seen by Provider: 01/21/23 20:00 Source: patient Mode of arrival: ambulatory Limitations: no limitations - History of Present Illness Initial comments: 72-year-old male with a past medical history significant for systolic congestive heart failure, A. fib on Eliquis, coronary artery disease s/p stents, COPD, hypertension, and type 2 diabetes. He shouldn't recently admitted to this facility and discharged on 01/06/23. Patient should be admitted due to A. fib with RVR. During his stay here is found to be C. diff positive started on IV fluids, oral Jesse oh, IV Flagyl. Patient didn't need to be transferred to the ICU do to persistent hypotension however he was able to wean off of vasopressors on 12/31. He was then discharged back to [facility] on oral vancomycin. Reportedly from [facility] today, persistently hypotensive. Patient is a very poor historian however at this time denies chest pain or shortness of breath. Does note abdominal pain upon palpation during exam however patient is unable to tell me whether or not his bowel movements have been improving. Urine culture on 12/28/22 and blood culture 2 on 12/27/22 showed no growth. Laboratory studies obtained from earlier today significant for an elevated white blood cell count at 12.5, hemoglobin of 7.7, BUN of 73, creatinine of 2.26. - Related Data Home Medications Medication Instructions Recorded Confirmed Ferrous Sulfate [Iron] 325 mg PO DAILY@0800 10/21/20 01/21/23 Sertraline HCl [Zoloft] 50 mg PO HS@209910/21/20 01/21/23 allopurinoL [Zyloprim] 100 mg PO DAILY@0810/21/20 01/21/23 risperiDONE [RisperDAL] 0.5 mg PO HS@209910/21/20 01/21/23 Apixaban [Eliquis] 5 mg PO BID@0800,1700 05/09/21 01/21/23 Thiamine HCl [Vitamin B-1] 100 mg PO DAILY@0800 05/09/21 01/21/23 Sacubitril/Valsartan [Entresto 24 1 tab PO BID@0800,1700 07/27/23 11/16/23 mg-26 mg Tablet] Atorvastatin [Lipitor] 40 mg PO HS@2100 10/16/22 01/21/23 Clopidogrel [Plavix] 75 mg PO DAILY@0800 10/16/22 01/21/23 Lidocaine 5% Patch [Lidoderm 5% 1 patch TRANSDERM DAILY@0800 10/17/22 01/21/23 Patch] Cholecalciferol [Vitamin D3 (25 50 mcg PO DAILY@0800 12/14/22 01/21/23 Mcg = 1000 Iu)] Cyclobenzaprine [Flexeril] 5 mg PO TID@0600,1400,2200 12/14/22 01/21/23 Furosemide [Lasix] 40 mg PO DAILY@1400 12/14/22 01/21/23 Ipratropium-Albuterol Nebulize 3 ml INHALATION RT-QID@00,06,12,18 12/14/22 01/21/23 [Duoneb 0.5 mg-3 mg/3 ml Soln] Magnesium Hydroxide [Milk of 7,200 mg PO Q48H PRN 12/14/22 01/21/23 Magnesia Concentrate] Na Phos,M-B/Na Phos,Di-Ba [Fleet 133 ml RECTAL DAILY PRN 12/14/22 01/21/23 Adult] Potassium Chloride ER [K-Dur 20] 20 meq PO BID@0800,1700 12/14/22 01/21/23 Sodium Bicarbonate Tab 650 mg PO BID@0800,1700 12/14/22 01/21/23 bisacodyL [Dulcolax] 10 mg RECTAL DAILY PRN 12/14/22 01/21/23 oxyBUTYnin chloride [oxyBUTYnin 5 mg PO DAILY@0800 12/14/22 01/21/23 chloride ER] Budesonide [Pulmicort] 1 mg INHALATION RT-BID@0800,1700 12/27/22 01/21/23 Dapagliflozin Propanediol [Farxiga] 10 mg PO DAILY@0800 12/27/22 01/21/23 Lactobacillus Acidophilus 1 cap PO DAILY@0800 12/27/22 01/21/23 [Acidophilus Probiotic] Pantoprazole [Protonix] 40 mg PO DAILY@0600 12/27/22 01/21/23 Amiodarone [Cordarone] 200 mg PO DAILY@0800 01/21/23 01/21/23 Furosemide [Lasix] 60 mg PO DAILY@0800 01/21/23 01/21/23 Glucerna Shake 237 ml PO TID@0800,1200,1700 01/21/23 01/21/23 INSULIN ASPART (NovoLOG) [NovoLOG See Protocol SQ 01/21/23 01/21/23 (formulary)] ACHS@07,11,1630,2130 Insulin Detemir (Levemir) [Levemir] 10 unit SQ HS@2100 01/21/23 01/21/23 Ipratropium-Albuterol Nebulize 3 ml INHALATION RT-Q6H PRN 01/21/23 01/21/23 [Duoneb 0.5 mg-3 mg/3 ml Soln] Metoprolol Tartrate [Lopressor] 50 mg PO TID@0600,1400,2200 01/21/23 01/21/23 Multivit-Min/FA/Lycopen/Lutein 1 tab PO DAILY@0800 01/21/23 01/21/23 [Centrum Silver Tablet] Previous Rx's Medication Instructions Recorded Acetaminophen Tab [Tylenol] 650 mg PO Q6HR PRN tab 01/06/23 Spironolactone [Aldactone] 12.5 mg PO DAILY@0800 #0 01/06/23 Allergies Allergy/AdvReac Type Severity Reaction Status Date / Time No Known Allergies Allergy Verified 01/21/23 21:30 Review of Systems ROS Statement: Those systems with pertinent positive or pertinent negative responses have been documented in the HPI. ROS Other: All systems not noted in ROS Statement are negative. Past Medical History Past Medical History: Atrial Fibrillation, Coronary Artery Disease (CAD), Heart Failure, Diabetes Mellitus, Hyperlipidemia, Hypertension Additional Past Medical History / Comment(s): See Dr Piedra's H&P. "Feet cold sometimes". Gout. Hx UTI and kidney infection with Covid. History of Any Multi-Drug Resistant Organisms: None Reported Past Surgical History: Heart Catheterization With Stent, Orthopedic Surgery, Pacemaker Additional Past Surgical History / Comment(s): 2 STENTS DEC 2020, left hip surgery X2. Past Anesthesia/Blood Transfusion Reactions: No Reported Reaction, Postoperative Nausea & Vomiting (PONV) Additional Past Anesthesia/Blood Transfusion Reaction / Comment(s): UNKNOWN FAMILY HX. Date of Last Stent Placement:: DEC 2020 Type of Cardiac Device: Unknown Device Placement Date:: Unknown Past Psychological History: Anxiety, Depression Smoking Status: Former smoker Past Alcohol Use History: None Reported Past Drug Use History: None Reported - Past Family History Mother Family Medical History: Cancer Brother(s) Family Medical History: Cancer Additional Family Medical History / Comment(s): Lung cancer. Father History Unknown: Yes Family Medical History: Hyperlipidemia General Exam Limitations: physical limitation General appearance: alert, other (Appears ill. Malodorous) Respiratory exam: Present: normal lung sounds bilaterally Cardiovascular Exam: Present: regular rate, normal rhythm GI/Abdominal exam: Present: soft Extremities exam: Present: other (Patient does have an ulcer on his left heel however no evidence of warmth, erythema, purulent drainage.) Neurological exam: Present: alert (Answers questions somewhat appropriately) Skin exam: Present: warm, dry Course Vital Signs 01/21/23 01/21/23 01/21/23 20:09 21:44 22:00 Temperature 97.7 F Pulse Rate 118 H 112 H 116 H Respiratory 20 20 Rate Blood Pressure 84/63 81/56 95/61 O2 Sat by Pulse 97 98 Oximetry 01/21/23 22:30 Temperature Pulse Rate 108 H Respiratory Rate Blood Pressure 105/62 O2 Sat by Pulse Oximetry - Reevaluation(s) Reevaluation #1: Patient reevaluated. After Cardizem bolus and IV fluids improvement of vital signs. Improvement of heart rate down to 97. Blood pressure increased to 95/61 systolic. He shouldn't also is more alert at this time. Reports that he has been having pain of his bilateral feet. Since previous at discharge with treatment for C. diff patient reports that he is still been experiencing diarrhea, and chills. 01/21/23 22:09 Medical Decision Making - Medical Decision Making Was pt. sent in by a medical professional or institution (, PA, STITCH SEPARATOR, urgent care, hospital, or [place] [facility] care facility...) When possible be specific @ -Jovany Did you speak to anyone other than the patient for history (EMS, parent, family, police, friend...)? What history was obtained from this source @ -No Did you review nursing and triage notes (agree or disagree)? Why? @ -I reviewed and agree with nursing and triage notes Were old charts reviewed (outside hosp., previous admission, EMS record, old EKG, old radiological studies, urgent care reports/EKG's, [place] [facility] facility records)? Report findings @ -Prior visit reviewed. For further details please see HPI. Differential Diagnosis (chest pain, altered mental status, abdominal pain women, abdominal pain men, vaginal bleeding, weakness, fever, dyspnea, syncope, headache, dizziness, GI bleed, back pain, seizure, CVA, palpatations, mental health, musculoskeletal)? @ -Differential Fever: Pneumonia, viral URI, endocarditis, myocarditis, pericarditis, otitis, sinusitis, peritonsillar Abscess, retropharyngeal Abscess, epiglottitis, peritonitis, appendicitis, Joyce cystitis, diverticulitis, hepatitis, colitis, UTI, PID, TOA, pyelonephritis, prostatitis, epididymitis, meningitis, encephalitis, pulmonary embolism, CVA, thyroid storm, pancreatitis, adrenal crisis, cavernous sinus thrombosis, this is not meant to be an all-inclusive list. EKG interpreted by me (3pts min.). @ -As above X-rays interpreted by me (1pt min.). @ -Chest x-ray interpreted by me showing evidence of pneumonia. X-ray of the bilateral feet pending at this time. CT interpreted by me (1pt min.). @ -None done U/S interpreted by me (1pt. min.). @ -None done What testing was considered but not performed or refused? (CT, X-rays, U/S, labs)? Why? @ -None What meds were considered but not given or refused? Why? @ -None Did you discuss the management of the patient with other professionals (professionals i.e. , PA, STITCH SEPARATOR, lab, RT, psych nurse, social work therapist, lockstitch shoulder joiner, teacher, aoc plans intelligence officer chief, immigration case worker)? Give summary @ -Case discussed with Dr. Kaufman accepts admission. Was smoking cessation discussed for >3mins.? @ -No Was critical care preformed (if so, how long)? @ -Yes, 30 minutes Were there social determinants of health that impacted care today? How? (Homelessness, low income, unemployed, alcoholism, drug addiction, transportation, low edu. Level, literacy, decrease access to med. care, [facility], rehab)? @ -No Was there de-escalation of care discussed even if they declined (Discuss DNR or withdrawal of care, Hospice)? DNR status @ -No What co-morbidities impacted this encounter? (DM, HTN, Smoking, COPD, CAD, Cancer, CVA, ARF, Chemo, Hep., AIDS, mental health diagnosis, sleep apnea, morbid obesity)? @ -Coronary artery disease, COPD, heart failure, A. fib Was patient admitted / discharged? Hospital course, mention meds given and route, prescriptions, significant lab abnormalities, going to OR and other pertinent info. @ -Admission 72-year-old male presenting to the ED with hypotension. Patient recently here and discharged on 01/06/23 after admission for A. fib with RVR. During admission developed sepsis found to have C. diff. Today, patient noted to be hypotensive at [facility]. Laboratory studies reviewed. CBC shows white blood cell count of 13.9, increased from earlier at 12.5. Additionally worsening of BUN/creatinine and creatinine from earlier with BUNs at 78, creatinine 2.64. Lactic acid 2.4. Initial troponin negative at 0.017 urine does not appear consistent with infection. Chest x-ray does show right lower lobe infiltrate consistent with pneumonia. Upon arrival, EKG showed A. fib with RVR. Patient given amiodarone bolus started on an amiodarone infusion. Patient does have evidence of sepsis with him presenting initially tachycardic in the 120s, hypotensive in the 80s systolic and an elevated white blood cell count. However, with history of heart failure and chest x-ray also showing some small bilateral pleural effusions, gentle IV hydration. Patient will be admitted secondary to sepsis with primary source of infection being a pneumonia. Consults placed to infectious disease and cardiology. Discussed plan of care with patient who is in agreement. Patient does admit to a cough. Will be started on Augmentin and azithromycin. Further antibiotics deferred to infectious disease secondary to history of C. diff. This time, additional stool culture, sputum culture, blood cultures, and culture from sacral pressure ulcer and ulcer on left foot obtained to rule out any other sources of infection. Undiagnosed new problem with uncertain prognosis? @ -No Drug Therapy requiring intensive monitoring for toxicity (Heparin, Nitro, Insulin, Cardizem)? @ -No Were any procedures done? @ -No Diagnosis/symptom? @ -Sepsis, A. fib with RVR, hospital acquired pneumonia Acute, or Chronic, or Acute on Chronic? @ -Acute Uncomplicated (without systemic symptoms) or Complicated (systemic symptoms)? @ -Complicated Side effects of treatment? @ -No Exacerbation, Progression, or Severe Exacerbation? @ -No Poses a threat to life or bodily function? How? (Chest pain, USA, OR, pneumonia, PE, COPD, DKA, ARF, appy, cholecystitis, CVA, Diverticulitis, Homicidal, Suicidal, threat to staff... and all critical care pts) @ -Yes, sepsis, A. fib with RVR - Lab Data Result diagrams: 01/21/23 20:42 01/21/23 20:42 Lab Results 01/21/23 01/21/23 01/21/23 Range/Units 20:42 20:42 20:42 WBC 13.9 H (3.8-10.6) k/uL RBC 2.31 L (4.30-5.90) m/uL Hgb 7.8 L (13.0-17.5) gm/dL Hct 24.6 L (39.0-53.0) % MCV 106.5 H (80.0-100.0) fL MCH 33.7 (25.0-35.0) pg MCHC 31.6 (31.0-37.0) g/dL RDW 21.3 H (11.5-15.5) % Plt Count 302 (150-450) k/uL MPV 8.2 Neutrophils % (Manual) 49 % Band Neuts % (Manual) 33 % Lymphocytes % (Manual) 6 % Monocytes % (Manual) 7 % Metamyelocytes % 4 % Myelocytes % 1 % Neutrophils # (Manual) 11.30 H (1.3-7.7) k/uL Lymphocytes # (Manual) 0.83 L (1.0-4.8) k/uL Monocytes # (Manual) 0.97 (0-1.0) k/uL Metamyelocytes # (Man) 0.56 H (0) k/uL Myelocytes # (Manual) 0.14 H (0) k/uL Nucleated RBCs 0 (0-0) /100 WBC Manual Slide Review Performed Toxic Vacuolation Present Polychromasia Present Hypochromasia Marked Hypochromasia (manual) Present Poikilocytosis Moderate Poikilocytosis (manual Present Anisocytosis Moderate Anisocytosis (manual) Present Macrocytosis Marked A PT 13.5 H (10.0-12.5) sec INR 1.3 H (<1.2) APTT 35.0 H (22.0-30.0) sec Sodium (137-145) mmol/L Potassium (3.5-5.1) mmol/L Chloride (98-107) mmol/L Carbon Dioxide (22-30) mmol/L Anion Gap mmol/L BUN (9-20) mg/dL Creatinine (0.66-1.25) mg/dL Est GFR (CKD-EPI)AfAm (>60 ml/min/1.73 sqM) Est GFR (CKD-EPI)NonAf (>60 ml/min/1.73 sqM) Glucose (74-99) mg/dL Lactic Ac Sepsis Rflx Plasma Lactic Acid Ilya (0.7-2.0) mmol/L Calcium (8.4-10.2) mg/dL Total Bilirubin (0.2-1.3) mg/dL AST (17-59) U/L ALT (4-49) U/L Alkaline Phosphatase (38-126) U/L Troponin I (0.000-0.034) ng/mL Total Protein (6.3-8.2) g/dL Albumin (3.5-5.0) g/dL Urine Color Yellow Urine Appearance Cloudy (Clear) Urine pH 8.0 (5.0-8.0) Ur Specific Rugby 1.018 (1.001-1.035) Urine Protein 2+ H (Negative) Urine Glucose (UA) Negative (Negative) Urine Ketones Negative (Negative) Urine Blood Negative (Negative) Urine Nitrite Negative (Negative) Urine Bilirubin Negative (Negative) Urine Urobilinogen <2.0 (<2.0) mg/dL Ur Leukocyte Esterase Large H (Negative) Urine RBC 1 (0-5) /hpf Urine WBC 10 H (0-5) /hpf Urine Mucus Rare H (None) /hpf 01/21/23 01/21/23 01/21/23 Range/Units 20:42 20:42 20:42 WBC (3.8-10.6) k/uL RBC (4.30-5.90) m/uL Hgb (13.0-17.5) gm/dL Hct (39.0-53.0) % MCV (80.0-100.0) fL MCH (25.0-35.0) pg MCHC (31.0-37.0) g/dL RDW (11.5-15.5) % Plt Count (150-450) k/uL MPV Neutrophils % (Manual) % Band Neuts % (Manual) % Lymphocytes % (Manual) % Monocytes % (Manual) % Metamyelocytes % % Myelocytes % % Neutrophils # (Manual) (1.3-7.7) k/uL Lymphocytes # (Manual) (1.0-4.8) k/uL Monocytes # (Manual) (0-1.0) k/uL Metamyelocytes # (Man) (0) k/uL Myelocytes # (Manual) (0) k/uL Nucleated RBCs (0-0) /100 WBC Manual Slide Review Toxic Vacuolation Polychromasia Hypochromasia Hypochromasia (manual) Poikilocytosis Poikilocytosis (manual Anisocytosis Anisocytosis (manual) Macrocytosis PT (10.0-12.5) sec INR (<1.2) APTT (22.0-30.0) sec Sodium 135 L (137-145) mmol/L Potassium 4.5 (3.5-5.1) mmol/L Chloride 100 (98-107) mmol/L Carbon Dioxide 21 L (22-30) mmol/L Anion Gap 14 mmol/L BUN 78 H (9-20) mg/dL Creatinine 2.64 H (0.66-1.25) mg/dL Est GFR (CKD-EPI)AfAm 27 (>60 ml/min/1.73 sqM) Est GFR (CKD-EPI)NonAf 23 (>60 ml/min/1.73 sqM) Glucose 196 H (74-99) mg/dL Lactic Ac Sepsis Rflx Plasma Lactic Acid Ilya 2.4 H* (0.7-2.0) mmol/L Calcium 8.2 L (8.4-10.2) mg/dL Total Bilirubin 0.6 (0.2-1.3) mg/dL AST 24 (17-59) U/L ALT 24 (4-49) U/L Alkaline Phosphatase 75 (38-126) U/L Troponin I 0.017 (0.000-0.034) ng/mL Total Protein 8.0 (6.3-8.2) g/dL Albumin 2.9 L (3.5-5.0) g/dL Urine Color Urine Appearance (Clear) Urine pH (5.0-8.0) Ur Specific Rugby (1.001-1.035) Urine Protein (Negative) Urine Glucose (UA) (Negative) Urine Ketones (Negative) Urine Blood (Negative) Urine Nitrite (Negative) Urine Bilirubin (Negative) Urine Urobilinogen (<2.0) mg/dL Ur Leukocyte Esterase (Negative) Urine RBC (0-5) /hpf Urine WBC (0-5) /hpf Urine Mucus (None) /hpf 01/21/23 Range/Units 21:29 WBC (3.8-10.6) k/uL RBC (4.30-5.90) m/uL Hgb (13.0-17.5) gm/dL Hct (39.0-53.0) % MCV (80.0-100.0) fL MCH (25.0-35.0) pg MCHC (31.0-37.0) g/dL RDW (11.5-15.5) % Plt Count (150-450) k/uL MPV Neutrophils % (Manual) % Band Neuts % (Manual) % Lymphocytes % (Manual) % Monocytes % (Manual) % Metamyelocytes % % Myelocytes % % Neutrophils # (Manual) (1.3-7.7) k/uL Lymphocytes # (Manual) (1.0-4.8) k/uL Monocytes # (Manual) (0-1.0) k/uL Metamyelocytes # (Man) (0) k/uL Myelocytes # (Manual) (0) k/uL Nucleated RBCs (0-0) /100 WBC Manual Slide Review Toxic Vacuolation Polychromasia Hypochromasia Hypochromasia (manual) Poikilocytosis Poikilocytosis (manual Anisocytosis Anisocytosis (manual) Macrocytosis PT (10.0-12.5) sec INR (<1.2) APTT (22.0-30.0) sec Sodium (137-145) mmol/L Potassium (3.5-5.1) mmol/L Chloride (98-107) mmol/L Carbon Dioxide (22-30) mmol/L Anion Gap mmol/L BUN (9-20) mg/dL Creatinine (0.66-1.25) mg/dL Est GFR (CKD-EPI)AfAm (>60 ml/min/1.73 sqM) Est GFR (CKD-EPI)NonAf (>60 ml/min/1.73 sqM) Glucose (74-99) mg/dL Lactic Ac Sepsis Rflx Y Plasma Lactic Acid Ilya (0.7-2.0) mmol/L Calcium (8.4-10.2) mg/dL Total Bilirubin (0.2-1.3) mg/dL AST (17-59) U/L ALT (4-49) U/L Alkaline Phosphatase (38-126) U/L Troponin I (0.000-0.034) ng/mL Total Protein (6.3-8.2) g/dL Albumin (3.5-5.0) g/dL Urine Color Urine Appearance (Clear) Urine pH (5.0-8.0) Ur Specific Rugby (1.001-1.035) Urine Protein (Negative) Urine Glucose (UA) (Negative) Urine Ketones (Negative) Urine Blood (Negative) Urine Nitrite (Negative) Urine Bilirubin (Negative) Urine Urobilinogen (<2.0) mg/dL Ur Leukocyte Esterase (Negative) Urine RBC (0-5) /hpf Urine WBC (0-5) /hpf Urine Mucus (None) /hpf Critical Care Time Total Critical Care Time: 30 Disposition Clinical Impression: Sepsis, Pneumonia, Atrial fibrillation with RVR Disposition: ADMITTED IP TO THIS HOSP Referrals: Umesh Alvarez DO [Primary Care Provider] - 1-2 days Time of Disposition: 23:40
[2023-01-21 21:34] LABS: ALT 24 U/L (4-49); AST 24 U/L (17-59); African American GFR (CKD) 27 (>60 ml/min/1.73 sqM); Albumin 2.9 g/dL (3.5-5.0); Alkaline Phosphatase 75 U/L (38-126); Anion Gap 14 mmol/L; Blood Urea Nitrogen 78 mg/dL (9-20); Calcium 8.2 mg/dL (8.4-10.2); Carbon Dioxide 21 mmol/L (22-30); Chloride 100 mmol/L (98-107); Glucose 196 mg/dL (74-99); Non-African American GFR(CKD) 23 (>60 ml/min/1.73 sqM); Potassium 4.5 mmol/L (3.5-5.1); Sodium 135 mmol/L (137-145); Total Bilirubin 0.6 mg/dL (0.2-1.3)
[2023-01-21 21:40] LABS: INR 1.3 (<1.2); Prothrombin Time 13.5 sec (10.0-12.5)
[2023-01-21 21:47] LABS: Anisocytosis Moderate; HCT 24.6 % (39.0-53.0); HGB 7.8 gm/dL (13.0-17.5); Hypochromasia Marked; MCH 33.7 pg (25.0-35.0); MCHC 31.6 g/dL (31.0-37.0); MCV 106.5 fL (80.0-100.0); Macrocytosis Marked; Mean Platelet Volume 8.2; Platelet Count 302 k/uL (150-450); Poikilocytosis Moderate; RBC 2.31 m/uL (4.30-5.90); RDW 21.3 % (11.5-15.5); WBC 13.9 k/uL (3.8-10.6)
[2023-01-21 22:06] LABS: Anisocytosis (M) Present; Band Neutrophils % 33 %; Hypochromasia (M) Present; Lymphocytes # (M) 0.83 k/uL (1.0-4.8); Metamyelocytes # (M) 0.56 k/uL (0); Metamyelocytes % 4 %; Monocytes # (M) 0.97 k/uL (0-1.0); Myelocytes # (M) 0.14 k/uL (0); Myelocytes % 1 %; Neutrophils % (M) 49 %; Nucleated Red Blood Cells 0 /100 WBC (0-0); Polychromasia Present; Total Cells Counted 100; Toxic Vacuolation Present
[2023-01-21 22:07] LABS: Poikilocytosis (M) Present
--- NOTE | 2023-01-21 22:07 | XR ---
EXAMINATION: XR chest 2V: 01/21/2023 9:58 PM CLINICAL INDICATION: r/o pna TECHNIQUE: Departmental protocol COMPARISON: 01/05/2023 FINDINGS / IMPRESSION: Dual lead cardiac pacemaker and EKG leads noted. There is dense consolidation in the right lower lobe consistent with bronchopneumonia. There appears to be baseline interstitial phase cardiogenic pulmonary edema. There is evidence of small bilateral pleural effusions.
[2023-01-21 23:07] LABS: Appearance,Urine Cloudy (Clear); Bilirubin,Urine Negative (Negative); Blood,Urine Negative (Negative); Color,Urine Yellow; Glucose,Urine (UA) Negative (Negative); Ketones,Urine Negative (Negative); Leukocyte Esterase,Urine Large (Negative); Mucus,Urine Rare /hpf; Nitrite,Urine Negative (Negative); Protein,Urine 2+ (Negative); RBC,Urine 1 /hpf (0-5); Specific Gravity,Urine 1.018 (1.001-1.035); Urobilinogen,Urine <2.0 mg/dL (<2.0); WBC,Urine 10 /hpf (0-5)
[2023-01-21] MEDS ORDERED: SODIUM CHLORIDE 0.9% 1,000 ML IV SCH (23:45)
[2023-01-21] MEDS ORDERED: PNEUMONIA PROTOCOL UTILIZED 1 EACH MISC PO PRN (23:52)
[2023-01-21] MEDS ORDERED: ACETAMINOPHEN TAB 325 MG TAB PO PRN (23:52)
[2023-01-22] MEDS ORDERED: PNEUMONIA PROTOCOL UTILIZED 1 EACH MISC PO PRN (00:07)
[2023-01-22] MEDS ORDERED: VANCOMYCIN IV PER PHARMACY 1 EACH MISC MISCELLANE PRN (00:09)
[2023-01-22] MEDS ORDERED: VANCOMYCIN 1,750 MG in SODIUM CHLORIDE 0.9% 500 ML 500 ML IVPB STA (00:11)
[2023-01-22] MEDS: VANCOMYCIN 125 MG CAPSULE PO SCH ×2 (01:22→06:53)
[2023-01-22] MEDS ORDERED: AMIODARONE 450 MG in DEXTROSE 5% IN WATER 250 ML IV SCH ×2 (05:00)
--- NOTE | 2023-01-22 06:41 | P.HPIM ---
History of Present Illness H&P Date: 01/22/23 Chief Complaint: Hypotension 72-year-old male with Paroxysmal A. fib, chronic kidney disease, CHF Patient is resident of [facility] he was recently hospitalized and discharged from our facility where he was treated for acute kidney injury, C. diff infection he was discharged with oral vancomycin Patient is sent in here today for evaluation due to hypotension and abdominal p ain. Age and himself as poor historian provides very limited history which was obtained by reviewing medical records Patient was found to be in A. fib with RVR upon presentation initially hypotensive responding to IV fluids. Patient continues to have foul-smelling diarrhea with abdominal pain suspected to have recurrent C. diff infection He was initiated on amiodarone drip due to history of congestive heart failure and currently hypotensive to control his A. fib with RVR Imaging also was suspicious for possible pneumonia with bilateral pleural effusion which limits the amount of fluids that could be given with his history of congestive heart failure He was also initiated on antibiotics for possible recurrent C. diff while waiting for cultures review of systems unable to obtain patient very poor historian on exam Constitutional: No acute distress, cooperative limited answers to questions Eyes: Anicteric sclerae, moist conjunctiva, Pupils equal round reactive to light ENMT: NC/AT Oropharynx clear, no erythema, or exudates Neck: Supple, no masses, or JVD No carotid bruits No thyromegaly Lungs: Clear to auscultation Clear to percussion Normal respiratory effort, no accessory muscle use Cardiovascular: Heart irregular in rate and rhythm, No murmurs, gallops, or rubs No peripheral edema Abdominal: Mildly distended Diffusely tender to palpation, no guarding, rebound or rigidity Abdomen moving with respiration Normoactive bowel sounds No hepatomegaly, No splenomegaly No palpable mass No abdominal wall hernia noted Extremities: No digital cyanosis No clubbing Pedal pulses intact and symmetrical Radial pulses intact and symmetrical No calf tenderness Psychiatric: Alert and oriented to person, only Neuro Muscles Strength 4/5 in bilateral upper extremities 3/5 bilateral lower extremities Sensation to light touch grossly present throughout Cranial nerves II-XII grossly intact Lymphatics: no palpable cervical or supraclavicular lymph nodes Past Medical History Past Medical History: Atrial Fibrillation, Coronary Artery Disease (CAD), Heart Failure, Diabetes Mellitus, Hyperlipidemia, Hypertension Additional Past Medical History / Comment(s): See Dr Piedra's H&P. "Feet cold sometimes". Gout. Hx UTI and kidney infection with Covid. History of Any Multi-Drug Resistant Organisms: None Reported Past Surgical History: Heart Catheterization With Stent, Orthopedic Surgery, Pacemaker Additional Past Surgical History / Comment(s): 2 STENTS DEC 2020, left hip surgery X2. Past Anesthesia/Blood Transfusion Reactions: No Reported Reaction, Postoperative Nausea & Vomiting (PONV) Additional Past Anesthesia/Blood Transfusion Reaction / Comment(s): UNKNOWN FAMILY HX. Date of Last Stent Placement:: DEC 2020 Type of Cardiac Device: Unknown Device Placement Date:: Unknown Past Psychological History: Anxiety, Depression Smoking Status: Former smoker Past Alcohol Use History: None Reported Past Drug Use History: None Reported - Past Family History Mother Family Medical History: Cancer Brother(s) Family Medical History: Cancer Additional Family Medical History / Comment(s): Lung cancer. Father History Unknown: Yes Family Medical History: Hyperlipidemia Medications and Allergies Home Medications Medication Instructions Recorded Confirmed Type Ferrous Sulfate [Iron] 325 mg PO DAILY@00 10/21/20 01/21/23 History Sertraline HCl [Zoloft] 50 mg PO HS@209910/21/20 01/21/23 History allopurinoL [Zyloprim] 100 mg PO DAILY@79910/21/20 01/21/23 History risperiDONE [RisperDAL] 0.5 mg PO HS@209910/21/20 01/21/23 History Apixaban [Eliquis] 5 mg PO BID@0800,1700 05/09/21 01/21/23 History Thiamine HCl [Vitamin B-1] 100 mg PO DAILY@0800 05/09/21 01/21/23 History Sacubitril/Valsartan [Entresto 24 1 tab PO BID@0800,1700 10/01/22 01/21/23 History mg-26 mg Tablet] Atorvastatin [Lipitor] 40 mg PO HS@209910/16/22 01/21/23 History Clopidogrel [Plavix] 75 mg PO DAILY@00 10/16/22 01/21/23 History Lidocaine 5% Patch [Lidoderm 5% 1 patch TRANSDERM DAILY@0800 10/17/22 01/21/23 History Patch] Cholecalciferol [Vitamin D3 (25 50 mcg PO DAILY@0800 12/14/22 01/21/23 History Mcg = 1000 Iu)] Cyclobenzaprine [Flexeril] 5 mg PO TID@0600,1400,2200 12/14/22 01/21/23 History Furosemide [Lasix] 40 mg PO DAILY@1400 12/14/22 01/21/23 History Ipratropium-Albuterol Nebulize 3 ml INHALATION RT-QID@00,06,12,18 12/14/22 01/21/23 History [Duoneb 0.5 mg-3 mg/3 ml Soln] Magnesium Hydroxide [Milk of 7,200 mg PO Q48H PRN 12/14/22 01/21/23 History Magnesia Concentrate] Na Phos,M-B/Na Phos,Di-Ba [Fleet 133 ml RECTAL DAILY PRN 12/14/22 01/21/23 H istory Adult] Potassium Chloride ER [K-Dur 20] 20 meq PO BID@0800,1700 12/14/22 01/21/23 Hist ory Sodium Bicarbonate Tab 650 mg PO BID@0800,1700 12/14/22 01/21/23 History bisacodyL [Dulcolax] 10 mg RECTAL DAILY PRN 12/14/22 01/21/23 History oxyBUTYnin chloride [oxyBUTYnin 5 mg PO DAILY@0800 12/14/22 01/21/23 History chloride ER] Budesonide [Pulmicort] 1 mg INHALATION RT-BID@0800,1700 12/27/22 01/21/23 History Dapagliflozin Propanediol [Farxiga] 10 mg PO DAILY@0800 12/27/22 01/21/23 History Lactobacillus Acidophilus 1 cap PO DAILY@0800 12/27/22 01/21/23 History [Acidophilus Probiotic] Pantoprazole [Protonix] 40 mg PO DAILY@0600 12/27/22 01/21/23 History Acetaminophen Tab [Tylenol] 650 mg PO Q6HR PRN tab 01/06/23 01/21/23 Rx Spironolactone [Aldactone] 12.5 mg PO DAILY@0800 #0 01/06/23 01/21/23 Rx Amiodarone [Cordarone] 200 mg PO DAILY@0800 01/21/23 01/21/23 History Furosemide [Lasix] 60 mg PO DAILY@0800 01/21/23 01/21/23 History Glucerna Shake 237 ml PO TID@0800,1200,1700 01/21/23 01/21/23 History INSULIN ASPART (NovoLOG) [NovoLOG See Protocol SQ 01/21/23 01/21/23 History (formulary)] ACHS@07,11,1630,2130 Insulin Detemir (Levemir) [Levemir] 10 unit SQ HS@2100 01/21/23 01/21/23 History Ipratropium-Albuterol Nebulize 3 ml INHALATION RT-Q6H PRN 01/21/23 01/21/23 History [Duoneb 0.5 mg-3 mg/3 ml Soln] Metoprolol Tartrate [Lopressor] 50 mg PO TID@0600,1400,2200 01/21/23 01/21/23 History Multivit-Min/FA/Lycopen/Lutein 1 tab PO DAILY@0800 01/21/23 01/21/23 History [Centrum Silver Tablet] Allergies Allergy/AdvReac Type Severity Reaction Status Date / Time No Known Allergies Allergy Verified 01/21/23 21:30 Physical Exam Vitals: Vital Signs Temp Pulse Resp BP Pulse Ox 01/22/23 04:53 114 H 98 01/22/23 04:00 109 H 18 01/22/23 03:00 110 H 20 101/67 01/22/23 02:00 97.9 F 104 H 24 95/61 01/22/23 01:00 102 H 22 94/49 01/22/23 00:00 96 84/41 01/21/23 23:00 105/62 01/21/23 22:51 116 H 105/62 01/21/23 22:30 108 H 105/62 01/21/23 22:00 116 H 95/61 01/21/23 21:44 112 H 20 81/56 98 01/21/23 20:09 97.7 F 118 H 20 84/63 97 Intake and Output 01/21/23 01/21/23 01/22/23 14:59 22:59 06:59 Other: Weight 104.78 kg Results CBC & Chem 7: 01/21/23 20:42 01/21/23 20:42 Labs: Abnormal Lab Results - Last 24 Hours (Table) 01/21/23 01/21/23 01/21/23 Range/Units 20:42 20:42 20:42 WBC 13.9 H (3.8-10.6) k/uL RBC 2.31 L (4.30-5.90) m/uL Hgb 7.8 L (13.0-17.5) gm/dL Hct 24.6 L (39.0-53.0) % MCV 106.5 H (80.0-100.0) fL RDW 21.3 H (11.5-15.5) % Neutrophils # (Manual) 11.30 H (1.3-7.7) k/uL Lymphocytes # (Manual) 0.83 L (1.0-4.8) k/uL Metamyelocytes # (Man) 0.56 H (0) k/uL Myelocytes # (Manual) 0.14 H (0) k/uL Macrocytosis Marked A PT 13.5 H (10.0-12.5) sec INR 1.3 H (<1.2) APTT 35.0 H (22.0-30.0) sec Sodium (137-145) mmol/L Carbon Dioxide (22-30) mmol/L BUN (9-20) mg/dL Creatinine (0.66-1.25) mg/dL Glucose (74-99) mg/dL Plasma Lactic Acid Ilya (0.7-2.0) mmol/L Calcium (8.4-10.2) mg/dL Albumin (3.5-5.0) g/dL Urine Protein 2+ H (Negative) Ur Leukocyte Esterase Large H (Negative) Urine WBC 10 H (0-5) /hpf Urine Mucus Rare H (None) /hpf 01/21/23 01/21/23 01/22/23 Range/Units 20:42 20:42 00:06 WBC (3.8-10.6) k/uL RBC (4.30-5.90) m/uL Hgb (13.0-17.5) gm/dL Hct (39.0-53.0) % MCV (80.0-100.0) fL RDW (11.5-15.5) % Neutrophils # (Manual) (1.3-7.7) k/uL Lymphocytes # (Manual) (1.0-4.8) k/uL Metamyelocytes # (Man) (0) k/uL Myelocytes # (Manual) (0) k/uL Macrocytosis PT (10.0-12.5) sec INR (<1.2) APTT (22.0-30.0) sec Sodium 135 L (137-145) mmol/L Carbon Dioxide 21 L (22-30) mmol/L BUN 78 H (9-20) mg/dL Creatinine 2.64 H (0.66-1.25) mg/dL Glucose 196 H (74-99) mg/dL Plasma Lactic Acid Ilya 2.4 H* 2.6 H* (0.7-2.0) mmol/L Calcium 8.2 L (8.4-10.2) mg/dL Albumin 2.9 L (3.5-5.0) g/dL Urine Protein (Negative) Ur Leukocyte Esterase (Negative) Urine WBC (0-5) /hpf Urine Mucus (None) /hpf Assessment and Plan Assessment: 72-year-old male [facility] resident with paroxysmal A. fib, congestive heart failure, chronic kidney disease recent C. diff infection coming in for hypotension and abdominal pain with ongoing diarrhea discussed the case with the ED doctor accepted the admission for A. fib with RVR and suspected sepsis secondary to recurrent C. diff infection with anticipated length of stay more than 2 midnights Sepsis secondary to possible recurrent C. diff infection A. fib with RVR Hypotension Acute kidney injury on CK D Systolic CHF chronic with left ventricular ejection fraction 3540 percent Diabetes mellitus Chronic anemia Gentle IV fluid hydration secondary to bilateral pleural effusion and history of congestive heart failure Amiodarone drip for A. fib with RVR Resume Eliquis Hold diuretics secondary to hypotension Resume metoprolol with hold parameters for systolic blood pressure less than 100 Hold Entresto secondary to acute kidney injury on CK D and hypotension Check C. diff PCR Initiate patient on oral vancomycin and IV Flagyl 500 mg 3 times a day Suspected severe C. diff infection secondary to acute kidney injury with creatinine above 2 Chest x-ray showed suspected dense opacity right lower lung bronchopneumonia Patient unreliable historian Patient started on Rocephin 2 g IV piggyback daily and vancomycin IV dosing by pharmacy for possible underlying pneumonia Add doxycycline 100 mg twice a day to cover atypical pneumonia Follow-up cultures Avoid nephrotoxic medications Hold diuretics secondary to hypotension and acute kidney injury on CK D Hold Entresto secondary tracheitis hypotension Creatinine 2.6 bun 78 Sodium 135 potassium 4.5 Monitor urine output Chronic Jacobs catheter present on admission Chronic anemia Hemoglobin 7.8 Continue to monitor No reported GI bleeding Diabetes mellitus Insulin sliding scale Could not discuss CODE STATUS with patient at this time DVT prophylaxis on Eliquis for A. fib GI prophylaxis continue Protonix
--- NOTE | 2023-01-22 07:13 | XR ---
EXAMINATION TYPE: XR foot limited bilateral DATE OF EXAM: 01/21/2023 10:26 PM CLINICAL INDICATION:Male, 72 years old with history of r/o osteo; PHH COMPARISON: None TECHNIQUE: XR foot limited bilateral examined in the AP, oblique, and lateral projections. FINDINGS: No evidence of any acute osseous pathology. No evidence of soft tissue swelling. Joints are preserve d. Multifocal degeneration changes throughout the joints of the foot. No definitive evidence for osse ous erosion. Severe atherosclerosis of the arterial vasculature. Calcaneal plantar spurring. IMPRESSION: 1. No evidence of acute fracture. 2. No evidence for osteomyelitis
[2023-01-22] MEDS ORDERED: BUDESONIDE 1 MG/2 ML NEBU INHALATION SCH (08:00)
[2023-01-22] MEDS: FLUTICASONE 220 MCG INHALER INHALATION SCH ×2 (08:40→20:04)
[2023-01-22] MEDS: AMIODARONE 200 MG TAB PO SCH (08:59)
[2023-01-22] MEDS: OXYBUTYNIN XL 5 MG TAB.ER.24 PO SCH (08:59)
[2023-01-22] MEDS: CLOPIDOGREL 75 MG TAB PO SCH (08:59)
[2023-01-22] MEDS: metroNIDAZOLE-NS PMX 500 MG in SALINE 1 100ML.BAG IVPB SCH ×2 (08:59→17:46)
[2023-01-22] MEDS: APIXABAN 5 MG TAB PO SCH ×2 (08:59→17:46)
[2023-01-22] MEDS: SODIUM BICARBONATE TAB 650 MG TAB PO SCH ×2 (09:00→17:46)
[2023-01-22] MEDS ORDERED: DOXYCYCLINE 100 MG CAP PO SCH (09:00)
[2023-01-22 09:38] LABS: Anisocytosis Moderate; HCT 24.2 % (39.0-53.0); HGB 7.5 gm/dL (13.0-17.5); Hypochromasia Marked; MCH 33.3 pg (25.0-35.0); MCV 107.3 fL (80.0-100.0); Macrocytosis Marked; Mean Platelet Volume 7.7; Platelet Count 285 k/uL (150-450); Poikilocytosis Moderate; RBC 2.26 m/uL (4.30-5.90); RDW 21.3 % (11.5-15.5); WBC 10.2 k/uL (3.8-10.6)
--- NOTE | 2023-01-22 09:40 | XR ---
EXAMINATION TYPE: XR chest 1V portable DATE OF EXAM: 01/22/2023 COMPARISON: 01/21/2023 HISTORY: Cough TECHNIQUE: Single frontal view of the chest is obtained. FINDINGS: Cardiomegaly and postsurgical change overlying vertebral, cardiac device seen and there is diffuse interstitial changes with bilateral elevation and small effusion. Heart is enlarged. Atheros clerotic change aorta. Previous vertebral plasty. IMPRESSION: Correlate for CHF.
[2023-01-22 09:43] LABS: NT-Pro-B-Type Natriuretic Pept 16600 pg/mL
[2023-01-22 09:45] LABS: ALT 25 U/L (4-49); AST 26 U/L (17-59); Blood Urea Nitrogen 79 mg/dL (9-20); Non-African American GFR(CKD) 22 (>60 ml/min/1.73 sqM); Total Bilirubin 0.5 mg/dL (0.2-1.3)
[2023-01-22] MEDS ORDERED: IPRATROPIUM-ALBUTEROL 3 ML NEB INHALATION PRN (10:03)
[2023-01-22 10:06] LABS: African American GFR (CKD) 25 (>60 ml/min/1.73 sqM); Albumin 2.7 g/dL (3.5-5.0); Alkaline Phosphatase 69 U/L (38-126); Anion Gap 14 mmol/L; Carbon Dioxide 17 mmol/L (22-30); Chloride 104 mmol/L (98-107); Glucose 145 mg/dL (74-99); Sodium 135 mmol/L (137-145); Total Protein 7.6 g/dL (6.3-8.2)
[2023-01-22] MEDS: IPRATROPIUM-ALBUTEROL 3 ML NEB INHALATION SCH ×4 (10:36→23:47)
--- NOTE | 2023-01-22 11:19 | US ---
EXAMINATION TYPE: US renals and bladder DATE OF EXAM: 01/22/2023 COMPARISON: NONE CLINICAL INDICATION: Male, 72 years old with history of RAJAN; Patient denies any signs or symptoms at this time. On C-Diff precautions EXAM MEASUREMENTS: Right Kidney: 8.3 x 6.7 x 5.6 cm Left Kidney: 9.7 x 6.2 x 5.5 cm multiple cysts seen largest - 2.0 x 2.0 x 1.6 cm Bladder: Jacobs noted within - bladder not distended Bilateral Jets seen: not able to assess Normal Post Void Residual: not able to assess There is increased echogenicity of the renal cortex. Cortical thickness maintained. Slight cortical l obulation. Hypoechoic lesions within the left kidney too small to characterize, and do not meet the c riteria of simple cyst. IMPRESSION: Increased echogenicity of the renal cortex correlate for medical renal disease. Indeterminate renal l esions on the left
[2023-01-22] MEDS: FUROSEMIDE 10 MG/ML 4 ML VIAL IV SCH (11:20)
--- NOTE | 2023-01-22 11:55 | P.NPCON ---
History of Present Illness - Reason for Consult acute renal failure, chronic renal failure - History of Present Illness Reason for consultation: Acute kidney injury on chronic kidney disease History of present illness: Patient is a 72-year-old male seen in renal consultation for acute kidney injury and chronic kidney disease. Patient has chronic kidney disease stage IIIa with baseline creatinine 1.1-1.3. Creatinine this admission was 2.6 and is up to 2.76 today. Patient has been receiving IV fluids overnight. Patient was hypotensive with systolic blood pressure in the 80s on admission. Patient was also in A. fib with RVR and is currently maintained on amiodarone drip. He was started on IV Lasix this morning. BNP noted to be elevated at 16,600. Chest x- ray suggestive of fluid overload. Jacobs catheter has been placed. Patient has history of diabetes. Also has a pacemaker. He denies use of nonsteroidals. Patient has history of systolic CHF with ejection fraction of 35-40% with mode rate mitral and tricuspid regurgitation and moderate pulmonary hypertension. Denies vomiting. Has been having loose bowel movements. On oral vancomycin for possible C. diff. Vital signs are stable. General: No acute distress. HEENT: Head exam is unremarkable. On nasal cannula. LUNGS: Scattered rhonchi. HEART: Irregular rate and rhythm. ABDOMEN: Nontender, obese. EXTREMITITES: No edema. Past Medical History Past Medical History: Atrial Fibrillation, Coronary Artery Disease (CAD), Heart Failure, Diabetes Mellitus, Hyperlipidemia, Hypertension Additional Past Medical History / Comment(s): See Dr Piedra's H&P. "Feet cold sometimes". Gout. Hx UTI and kidney infection with Covid. History of Any Multi-Drug Resistant Organisms: None Reported Past Surgical History: Heart Catheterization With Stent, Orthopedic Surgery, Pacemaker Additional Past Surgical History / Comment(s): 2 STENTS DEC 2020, left hip surgery X2. Past Anesthesia/Blood Transfusion Reactions: No Reported Reaction, Postoperative Nausea & Vomiting (PONV) Additional Past Anesthesia/Blood Transfusion Reaction / Comment(s): UNKNOWN FAMI LY HX. Date of Last Stent Placement:: DEC 2020 Type of Cardiac Device: Unknown Device Placement Date:: Unknown Past Psychological History: Anxiety, Depression Smoking Status: Former smoker Past Alcohol Use History: None Reported Past Drug Use History: None Reported - Past Family History Mother Family Medical History: Cancer Brother(s) Family Medical History: Cancer Additional Family Medical History / Comment(s): Lung cancer. Father History Unknown: Yes Family Medical History: Hyperlipidemia Medications and Allergies Home Medications Medication Instructions Recorded Confirmed Type Ferrous Sulfate [Iron] 325 mg PO DAILY@0800 10/21/20 01/21/23 History Sertraline HCl [Zoloft] 50 mg PO HS@209910/21/20 01/21/23 History allopurinoL [Zyloprim] 100 mg PO DAILY@0800 10/21/20 01/21/23 History risperiDONE [RisperDAL] 0.5 mg PO HS@209910/21/20 01/21/23 History Apixaban [Eliquis] 5 mg PO BID@0800,1700 05/09/21 01/21/23 History Thiamine HCl [Vitamin B-1] 100 mg PO DAILY@0800 05/09/21 01/21/23 History Sacubitril/Valsartan [Entresto 24 1 tab PO BID@0800,1700 10/01/22 01/21/23 History mg-26 mg Tablet] Atorvastatin [Lipitor] 40 mg PO HS@209910/16/22 01/21/23 History Clopidogrel [Plavix] 75 mg PO DAILY@0800 10/16/22 01/21/23 History Lidocaine 5% Patch [Lidoderm 5% 1 patch TRANSDERM DAILY@0800 10/17/22 01/21/23 History Patch] Cholecalciferol [Vitamin D3 (25 50 mcg PO DAILY@0800 12/14/22 01/21/23 History Mcg = 1000 Iu)] Cyclobenzaprine [Flexeril] 5 mg PO TID@0600,1400,2200 12/14/22 01/21/23 History Furosemide [Lasix] 40 mg PO DAILY@1400 12/14/22 01/21/23 History Ipratropium-Albuterol Nebulize 3 ml INHALATION RT-QID@00,06,12,18 12/14/22 01/21/23 History [Duoneb 0.5 mg-3 mg/3 ml Soln] Magnesium Hydroxide [Milk of 7,200 mg PO Q48H PRN 12/14/22 01/21/23 History Magnesia Concentrate] Na Phos,M-B/Na Phos,Di-Ba [Fleet 133 ml RECTAL DAILY PRN 12/14/22 01/21/23 History Adult] Potassium Chloride ER [K-Dur 20] 20 meq PO BID@0800,1700 12/14/22 01/21/23 History Sodium Bicarbonate Tab 650 mg PO BID@0800,1700 12/14/22 01/21/23 History bisacodyL [Dulcolax] 10 mg RECTAL DAILY PRN 12/14/22 01/21/23 History oxyBUTYnin chloride [oxyBUTYnin 5 mg PO DAILY@0800 12/14/22 01/21/23 History chloride ER] Budesonide [Pulmicort] 1 mg INHALATION RT-BID@0800,1700 12/27/22 01/21/23 History Dapagliflozin Propanediol [Farxiga] 10 mg PO DAILY@0800 12/27/22 01/21/23 History Lactobacillus Acidophilus 1 cap PO DAILY@0800 12/27/22 01/21/23 History [Acidophilus Probiotic] Pantoprazole [Protonix] 40 mg PO DAILY@0600 12/27/22 01/21/23 History Acetaminophen Tab [Tylenol] 650 mg PO Q6HR PRN tab 01/06/23 01/21/23 Rx Spironolactone [Aldactone] 12.5 mg PO DAILY@0800 #0 01/06/23 01/21/23 Rx Amiodarone [Cordarone] 200 mg PO DAILY@0800 01/21/23 01/21/23 History Furosemide [Lasix] 60 mg PO DAILY@0800 01/21/23 01/21/23 History Glucerna Shake 237 ml PO TID@0800,1200,1700 01/21/23 01/21/23 History INSULIN ASPART (NovoLOG) [NovoLOG See Protocol SQ 01/21/23 01/21/23 History (formulary)] ACHS@07,11,1630,2130 Insulin Detemir (Levemir) [Levemir] 10 unit SQ HS@2100 01/21/23 01/21/23 History Ipratropium-Albuterol Nebulize 3 ml INHALATION RT-Q6H PRN 01/21/23 01/21/23 History [Duoneb 0.5 mg-3 mg/3 ml Soln] Metoprolol Tartrate [Lopressor] 50 mg PO TID@0600,1400,2200 01/21/23 01/21/23 History Multivit-Min/FA/Lycopen/Lutein 1 tab PO DAILY@0800 01/21/23 01/21/23 History [Centrum Silver Tablet] Allergies Allergy/AdvReac Type Severity Reaction Status Date / Time No Known Allergies Allergy Verified 01/21/23 21:30 Physical Exam Vitals: Vital Signs Temp Pulse Resp BP Pulse Ox 01/22/23 11:20 121 H 22 96/76 96 01/22/23 10:45 120 H 01/22/23 10:36 125 H 01/22/23 10:00 118 H 20 105/64 100 01/22/23 08:48 118 H 20 97/61 96 01/22/23 06:20 110 H 24 91/57 97 01/22/23 04:53 114 H 98 01/22/23 04:00 109 H 18 01/22/23 03:00 110 H 20 101/67 01/22/23 02:00 97.9 F 104 H 24 95/61 01/22/23 01:00 102 H 22 94/49 01/22/23 00:00 96 84/41 01/21/23 23:00 105/62 01/21/23 22:51 116 H 105/62 01/21/23 22:30 108 H 105/62 01/21/23 22:00 116 H 95/61 01/21/23 21:44 112 H 20 81/56 98 01/21/23 20:09 97.7 F 118 H 20 84/63 97 Intake and Output 01/21/23 01/22/23 01/22/23 22:59 06:59 14:59 Other: Weight 104.78 kg Results - Lab Results Most recent lab results Calcium 8.0 mg/dL (8.4-10.2) L 01/22/23 08:38 01/22/23 08:38 01/22/23 08:38 Assessment and Plan Plan: Assessment: 1. Acute kidney injury secondary to ATN secondary to hemodynamic instability and cardiorenal syndrome. Creatinine 2.76 today. No hydronephrosis noted on kidney ultrasound. Right kidney atrophic. 2. Acute on chronic systolic CHF with ejection fraction of 35-40% with moderate mitral and tricuspid regurgitation and pulmonary hypertension. 3. Volume overload. 4. Diabetes mellitus. 5. Left kidney cyst. Patient will need to see urology outpatient. 6. A. fib with RVR maintained on amiodarone drip. 7. Chronic kidney disease stage IIIA with baseline creatinine 1.1-1.3 secondary to diabetic kidney disease. 8. Anemia of chronic kidney disease. Rule out iron deficiency. 9. Metabolic acidosis secondary to acute kidney injury and GI losses. On oral bicarbonate. 10. C. diff on oral vancomycin. Plan: Maintain IV Lasix. Check iron studies. Avoid nephrotoxins. Continue to monitor renal function and urine output. Follow-up cultures. Thank you for the consultation. I will continue to follow patient with you during his hospital stay.
--- NOTE | 2023-01-22 12:17 | P.CRDCN ---
History of Present Illness History of present illness: HISTORY OF PRESENT ILLNESS: This is a 72-year-old male with a past medical history significant for persistent atrial fibrillation, ischemic cardiomyopathy, coronary artery disease with previous stenting, congestive heart failure, ventricular tachycardia with previous AICD implantation, diabetes, hypertension, and hyperlipidemia. Patient follows in the office with Dr. Piedra. We have been asked to see the patient in consultation for Reji vaughan with RVR. Patient examined at the bedside in the emergency room. Patient was brought to the hospital from [facility] secondary to persistent hypotension. Patient currently denies chest pain or pressure. He denies shortness of breath. Telemetry reveals atrial fibrillation with heart rate around 110. Systolic blood pressure in the 90s. * EKG reveals atrial fibrillation with right bundle branch block. Heart rate 119. * Chest xray correlate for CHF * Most recent echocardiogram obtained in September 2022 revealed ejection fraction 35-40%, moderate MR, mild AR, moderate TR, and moderate pulmonary hypertension * Cardiac catheterization history: October 2020 with stenting of the mid LAD REVIEW OF SYSTEMS: At the time of my exam: CONSTITUTIONAL: Denies fever or chills. HEENT: Denies blurred vision, vision changes, or eye pain. Denies hemoptysis CARDIOVASCULAR: Denies chest pain. Denies orthopnea. Denies PND. Denies palpitations RESPIRATORY: Denies shortness of breath. GASTROINTESTINAL: Denies abdominal pain. Denies nausea or vomiting. HEMATOLOGIC: Denies bleeding disorders. GENITOURINARY: Denies any blood in urine. SKIN: Denies pruitis. Denies rash. PHYSICAL EXAM: VITAL SIGNS: Reviewed. GENERAL: Well-developed in no acute distress. HEENT: Head is normocephalic. Pupils are equal, round. Sclerae anicteric. Mucous membranes of the mouth are moist. Neck supple. No JVD or thyromegaly LUNGS: Respirations even and unlabored. Lungs diminished bilaterally HEART: Mildly tachycardic. Irregular rate and rhythm. S1 and S2 heard. Systolic murmur noted ABDOMEN: Soft. Nondistended. Nontender. EXTREMITIES: Normal range of motion. No clubbing or cyanosis. Peripheral pulses intact. Bilateral lower extremity edema noted. NEUROLOGIC: Awake and alert. Oriented x 3. ASSESSMENT: Sepsis secondary to recurrent C. diff Hypotension Acute on chronic kidney disease Persistent atrial fibrillation with RVR Acute on chronic congestive heart failure with reduced ejection fraction Ischemic cardiomyopathy, ejection fraction 35-40% Coronary artery disease with previous stenting Ventricular tachycardia with previous AICD implantation Hypertension Hyperlipidemia Diabetes PLAN: Discontinue IV amiodarone. Begin oral amiodarone 400 mg daily. Continue metoprolol Continue IV Lasix 40 mg every 12 hours Monitor kidney function. Nephrology following Continue telemetry monitoring Further recommendations pending patient's course Nurse practitioner note has been reviewed by physician. Signing provider agrees with the documented findings, assessment, and plan of care. Past Medical History Past Medical History: Atrial Fibrillation, Coronary Artery Disease (CAD), Heart Failure, Diabetes Mellitus, Hyperlipidemia, Hypertension Additional Past Medical History / Comment(s): See Dr Piedra's H&P. "Feet cold sometimes". Gout. Hx UTI and kidney infection with Covid. History of Any Multi-Drug Resistant Organisms: None Reported Past Surgical History: Heart Catheterization With Stent, Orthopedic Surgery, Pacemaker Additional Past Surgical History / Comment(s): 2 STENTS DEC 2020, left hip surgery X2. Past Anesthesia/Blood Transfusion Reactions: No Reported Reaction, Postoperative Nausea & Vomiting (PONV) Additional Past Anesthesia/Blood Transfusion Reaction / Comment(s): UNKNOWN FAMILY HX. Date of Last Stent Placement:: DEC 2020 Type of Cardiac Device: Unknown Device Placement Date:: Unknown Past Psychological History: Anxiety, Depression Smoking Status: Former smoker Past Alcohol Use History: None Reported Past Drug Use History: None Reported - Past Family History Mother Family Medical History: Cancer Brother(s) Family Medical History: Cancer Additional Family Medical History / Comment(s): Lung cancer. Father History Unknown: Yes Family Medical History: Hyperlipidemia Medications and Allergies Home Medications Medication Instructions Recorded Confirmed Type Ferrous Sulfate [Iron] 325 mg PO DAILY@0800 10/21/20 01/21/23 History Sertraline HCl [Zoloft] 50 mg PO HS@209910/21/20 01/21/23 History allopurinoL [Zyloprim] 100 mg PO DAILY@79910/21/20 01/21/23 History risperiDONE [RisperDAL] 0.5 mg PO HS@209910/21/20 01/21/23 History Apixaban [Eliquis] 5 mg PO BID@0800,1700 05/09/21 01/21/23 History Thiamine HCl [Vitamin B-1] 100 mg PO DAILY@0800 05/09/21 01/21/23 History Sacubitril/Valsartan [Entresto 24 1 tab PO BID@0800,1700 10/01/22 01/21/23 History mg-26 mg Tablet] Atorvastatin [Lipitor] 40 mg PO HS@2100 10/16/22 01/21/23 History Clopidogrel [Plavix] 75 mg PO DAILY@0800 10/16/22 01/21/23 History Lidocaine 5% Patch [Lidoderm 5% 1 patch TRANSDERM DAILY@0800 10/17/22 01/21/23 History Patch] Cholecalciferol [Vitamin D3 (25 50 mcg PO DAILY@0800 12/14/22 01/21/23 History Mcg = 1000 Iu)] Cyclobenzaprine [Flexeril] 5 mg PO TID@0600,1400,2200 12/14/22 01/21/23 History Furosemide [Lasix] 40 mg PO DAILY@1400 12/14/22 01/21/23 History Ipratropium-Albuterol Nebulize 3 ml INHALATION RT-QID@00,06,12,18 12/14/22 01/21/23 History [Duoneb 0.5 mg-3 mg/3 ml Soln] Magnesium Hydroxide [Milk of 7,200 mg PO Q48H PRN 12/14/22 01/21/23 History Magnesia Concentrate] Na Phos,M-B/Na Phos,Di-Ba [Fleet 133 ml RECTAL DAILY PRN 12/14/22 01/21/23 History Adult] Potassium Chloride ER [K-Dur 20] 20 meq PO BID@0800,1700 12/14/22 01/21/23 History Sodium Bicarbonate Tab 650 mg PO BID@0800,1700 12/14/22 01/21/23 History bisacodyL [Dulcolax] 10 mg RECTAL DAILY PRN 12/14/22 01/21/23 History oxyBUTYnin chloride [oxyBUTYnin 5 mg PO DAILY@0800 12/14/22 01/21/23 History chloride ER] Budesonide [Pulmicort] 1 mg INHALATION RT-BID@0800,1700 12/27/22 01/21/23 History Dapagliflozin Propanediol [Farxiga] 10 mg PO DAILY@0800 12/27/22 01/21/23 History Lactobacillus Acidophilus 1 cap PO DAILY@0800 12/27/22 01/21/23 History [Acidophilus Probiotic] Pantoprazole [Protonix] 40 mg PO DAILY@0600 12/27/22 01/21/23 History Acetaminophen Tab [Tylenol] 650 mg PO Q6HR PRN tab 01/06/23 01/21/23 Rx Spironolactone [Aldactone] 12.5 mg PO DAILY@0800 #0 01/06/23 01/21/23 Rx Amiodarone [Cordarone] 200 mg PO DAILY@0800 01/21/23 01/21/23 History Furosemide [Lasix] 60 mg PO DAILY@0800 01/21/23 01/21/23 History Glucerna Shake 237 ml PO TID@0800,1200,1700 01/21/23 01/21/23 History INSULIN ASPART (NovoLOG) [NovoLOG See Protocol SQ 01/21/23 01/21/23 History (formulary)] ACHS@07,11,1630,2130 Insulin Detemir (Levemir) [Levemir] 10 unit SQ HS@2100 01/21/23 01/21/23 History Ipratropium-Albuterol Nebulize 3 ml INHALATION RT-Q6H PRN 01/21/23 01/21/23 History [Duoneb 0.5 mg-3 mg/3 ml Soln] Metoprolol Tartrate [Lopressor] 50 mg PO TID@0600,1400,2200 01/21/23 01/21/23 History Multivit-Min/FA/Lycopen/Lutein 1 tab PO DAILY@0800 01/21/23 01/21/23 History [Centrum Silver Tablet] Allergies Allergy/AdvReac Type Severity Reaction Status Date / Time No Known Allergies Allergy Verified 01/21/23 21:30 Physical Exam Vitals: Vital Signs Temp Pulse Resp BP Pulse Ox 01/22/23 11:20 121 H 22 96/76 96 01/22/23 10:45 120 H 01/22/23 10:36 125 H 01/22/23 10:00 118 H 20 105/64 100 01/22/23 08:48 118 H 20 97/61 96 01/22/23 06:20 110 H 24 91/57 97 01/22/23 04:53 114 H 98 01/22/23 04:00 109 H 18 01/22/23 03:00 110 H 20 101/67 01/22/23 02:00 97.9 F 104 H 24 95/61 01/22/23 01:00 102 H 22 94/49 01/22/23 00:00 96 84/41 01/21/23 23:00 105/62 01/21/23 22:51 116 H 105/62 01/21/23 22:30 108 H 105/62 01/21/23 22:00 116 H 95/61 01/21/23 21:44 112 H 20 81/56 98 01/21/23 20:09 97.7 F 118 H 20 84/63 97 Intake and Output 01/21/23 01/22/23 01/22/23 22:59 06:59 14:59 Other: Weight 104.78 kg Results 01/22/23 08:38 01/22/23 08:38 Cardiac Enzymes 01/21/23 01/21/23 01/22/23 Range/Units 20:42 20:42 04:48 AST 24 (17-59) U/L Troponin I 0.017 0.017 (0.000-0.034) ng/mL 01/22/23 Range/Units 08:38 AST 26 (17-59) U/L Troponin I (0.000-0.034) ng/mL Coagulation 01/21/23 Range/Units 20:42 PT 13.5 H (10.0-12.5) sec APTT 35.0 H (22.0-30.0) sec CBC 01/21/23 01/22/23 Range/Units 20:42 08:38 WBC 13.9 H 10.2 (3.8-10.6) k/uL RBC 2.31 L 2.26 L (4.30-5.90) m/uL Hgb 7.8 L 7.5 L (13.0-17.5) gm/dL Hct 24.6 L 24.2 L (39.0-53.0) % Plt Count 302 285 (150-450) k/uL Comprehensive Metabolic Panel 01/21/23 01/22/23 Range/Units 20:42 08:38 Sodium 135 L 135 L (137-145) mmol/L Potassium 4.5 4.0 (3.5-5.1) mmol/L Chloride 100 104 (98-107) mmol/L Carbon Dioxide 21 L 17 L (22-30) mmol/L BUN 78 H 79 H (9-20) mg/dL Creatinine 2.64 H 2.76 H (0.66-1.25) mg/dL Glucose 196 H 145 H (74-99) mg/dL Calcium 8.2 L 8.0 L (8.4-10.2) mg/dL AST 24 26 (17-59) U/L ALT 24 25 (4-49) U/L Alkaline Phosphatase 75 69 (38-126) U/L Total Protein 8.0 7.6 (6.3-8.2) g/dL Albumin 2.9 L 2.7 L (3.5-5.0) g/dL Current Medications Generic Name Dose Route Start Last Admin Trade Name Freq PRN Reason Stop Dose Admin Acetaminophen 650 mg 01/21/23 23:52 Acetaminophen Tab 325 Mg Tab PO Q4HR PRN Fever and/ or Pain Albuterol/Ipratropium 3 ml 01/22/23 10:03 Ipratropium-Albuterol 3 Ml Neb INHALATION RT-Q6H PRN Shortness Of Breath Albuterol/Ipratropium 3 ml 01/22/23 12:00 01/22/23 10:36 Ipratropium-Albuterol 3 Ml Neb INHALATION 3 ml RT-QID@00,06,12,18 [facility] Administration Allopurinol 100 mg 01/23/23 08:00 Allopurinol 100 Mg Tab PO DAILY@0800 [facility], [facility] Amiodarone HCl 400 mg 01/22/23 09:00 01/22/23 08:59 Amiodarone 200 Mg Tab PO 400 mg DAILY YESSY Administration Apixaban 5 mg 01/22/23 08:00 01/22/23 08:59 Apixaban 5 Mg Tab PO 5 mg BID@0800,1700 [facility], [facility]1983 Administration Protocol Atorvastatin Calcium 40 mg 01/22/23 21:00 Atorvastatin 40 Mg Tab PO HS@2100 [facility], [facility] Clopidogrel Bisulfate 75 mg 01/22/23 08:00 01/22/23 08:59 Clopidogrel 75 Mg Tab PO 75 mg DAILY@0800 [facility] Administration Fidaxomicin 200 mg 01/22/23 12:00 Fidaxomicin 200 Mg Tablet PO 01/31/23 21:01 BID YESSY Fluticasone Propionate 2 puff 01/22/23 17:00 01/22/23 08:40 Fluticasone 220 Mcg Inhaler INHALATION 2 puff RT-BID@0800,1700 YESSY Administration Furosemide 40 mg 01/22/23 10:15 01/22/23 11:20 Furosemide 10 Mg/Ml 4 Ml Vial IV 40 mg Q12HR YESSY Administration Metronidazole 500 mg/ IV 100 mls @ 100 mls/hr 01/22/23 08:00 01/22/23 08:59 Solution IVPB 100 mls/hr Q8HR YESSY Administration Protocol Insulin Detemir 10 unit 01/22/23 21:00 Insulin Detemir (Levemir) 100 Unit/Ml Syr SQ HS@2100 YESSY Metoprolol Tartrate 50 mg 01/22/23 14:00 Metoprolol Tartrate 50 Mg Tab PO TID@0600,1400,2200 [facility] Miscellaneous Information 1 each 01/22/23 00:07 Pneumonia Protocol Utilized 1 Each Misc PO ONCE PRN Per Protocol Oxybutynin Chloride 5 mg 01/22/23 08:00 01/22/23 08:59 Oxybutynin Xl 5 Mg Tab.Er.24 PO 5 mg DAILY@0800 [facility]1983 Administration Pantoprazole Sodium 40 mg 01/23/23 06:00 Pantoprazole 40 Mg Tablet PO DAILY@0600 [facility] Risperidone 0.5 mg 01/22/23 21:00 Risperidone 0.5 Mg Tab PO HS@2100 YESSY Sertraline HCl 50 mg 01/22/23 21:00 Sertraline 50 Mg Tab PO HS@2100 YESSY Sodium Bicarbonate 650 mg 01/22/23 08:00 01/22/23 09:00 Sodium Bicarbonate Tab 650 Mg Tab PO 650 mg BID@0800,1700 [facility] Administration Spironolactone 12.5 mg 01/23/23 08:00 Spironolactone 25 Mg Tab PO DAILY@0800 [facility], [facility]1983 Intake and Output 01/21/23 01/22/23 01/22/23 22:59 06:59 14:59 Other: Weight 104.78 kg 01/22/23 08:38 01/22/23 08:38
[2023-01-22] MEDS ORDERED: DEXTROSE 50% SYRINGE 50 ML IVP PRN ×2 (12:55)
[2023-01-22] MEDS: FIDAXOMICIN 200 MG TABLET PO SCH ×2 (13:26→23:25)
[2023-01-22] MEDS: METOPROLOL TARTRATE 50 MG TAB PO SCH ×3 (13:30→23:06)
--- NOTE | 2023-01-22 14:00 | P.PN ---
Subjective Progress Note Date: 01/22/23 (delayed charting seen at 0930) Patient is a 72-year-old male with systolic CHF, A. fib on Eliquis, CAD status post stents, COPD, type 2 diabetes, and hypertension who presented from rehab with hypotension. He was recently hospitalized here form 12/27/22 through 01/06/23 due to C. diff colitis with sepsis. It was discharged in [place] on oral vancomycin. On arrival to the ER his vital signs are remarkable for heart rate of 118 and a blood pressure of 84/63. Laboratory analysis was remarkable for white blood cell count 13.9, hemoglobin 7.8, INR 1.3, sodium 135, BUN 78, creatinine 2.64, lactic acid 2.4. Influenza A/B were negative. Chest x-ray was completed which showed possible pneumonia versus pulmonary edema. Patient was subsequently started on doxycycline, Rocephin, vancomycin IV and orally as well as Flagyl due to his recent C. diff. Arrangements are made for admission. Patient seen and examined at bedside. He visibly appears to be having some shortness of breath, patient denies shortness of breath but does complain of abdominal pain, cramping, and increasing diarrhea. Vital signs reviewed General: nontoxic, no distress, appears at stated age Cardiovascular: S1S2 reg, no murmur, positive posterior tibial pulse bilateral, Lungs: Rhonchi bilaterally , no accessory muscle use Abdominal: soft, nontender to palpation, no guarding, no appreciable organomeg blair Ext: no gross muscle atrophy, diffuse anasarca, no contractures Neuro: CN II-XI grossly intact, no focal neuro deficits Psych: Flat affect, poor historian Assessment/Plan: C diff colitis, recurrent Acute kidney injury on CKD stage III, possible cardiorenal syndrome, baseline creatinine 1.3-1.5 Metabolic acidosis Acute on chronic Anemia of chronic disease related to CKD, baseline hemoglobin 8 Acute exacerbation of systolic congestive heart failure with ejection fraction 35-40% Atrial fibrillation with rapid ventricular response CAD - [place] ([place] [id number]), stop Doxy, rocephine and IV vanco - consult ID - conitnue with flagyl 500 mg IVPB three times dialy - Vanco 500 gm q 5 hours - stop IV fluids, start lasix 40 mg IVP q 12 hours, monitor Urine output and Cr closely -Check with the RSV and COVID - strict I and O, daily weight - consult nephrology, check renal ultrasound -Hold entresto -Cardiology consultation reviewed: Continue IV amiodarone, start amiodarone 400 mg daily Type 2 DM, insulin dependent -Sliding-scale insulin -Levemir 10 units at night - hold -Follow blood sugars -Glipizide on hold - A1C 6.3 01/11/23 Chronic: HTN HLD Lactic acidosis, resolved Imaging: Chest x-ray as reviewed by myself reveals increased pulmonary vascular congestion, mild right pleural effusion Data Review: Labs reviewed today include CBC and basic metabolic profile troponin, and BMP which are remarkable for hemoglobin 7.5 sodium 135 carbon dioxide 17, BUN 79, creatinine 2.76 was 145-1.2, BNP 16,600 DVT prophylaxis: Discussed with: Anticipated discharge date: Anticipated discharge place: This dictation was prepared using [employer] voice recognition software. Though every attempt is made to correct errors during dictation some may still exist. Objective - Vital Signs Vital signs: Vital Signs Temp 97.9 F 01/22/23 02:00 Pulse 118 H 01/22/23 13:00 Resp 22 01/22/23 13:00 BP 102/64 01/22/23 13:00 Pulse Ox 100 01/22/23 13:00 FiO2 Intake & Output 01/21/23 01/22/23 01/22/23 18:59 06:59 18:59 Weight 104.78 kg - Labs CBC & Chem 7: 01/22/23 08:38 01/22/23 08:38 Labs: Abnormal Lab Results - Last 24 Hours (Table) 01/21/23 01/21/23 01/21/23 Range/Units 20:42 20:42 20:42 WBC 13.9 H (3.8-10.6) k/uL RBC 2.31 L (4.30-5.90) m/uL Hgb 7.8 L (13.0-17.5) gm/dL Hct 24.6 L (39.0-53.0) % MCV 106.5 H (80.0-100.0) fL RDW 21.3 H (11.5-15.5) % Neutrophils # (Manual) 11.30 H (1.3-7.7) k/uL Lymphocytes # (Manual) 0.83 L (1.0-4.8) k/uL Metamyelocytes # (Man) 0.56 H (0) k/uL Myelocytes # (Manual) 0.14 H (0) k/uL Macrocytosis Marked A PT 13.5 H (10.0-12.5) sec INR 1.3 H (<1.2) APTT 35.0 H (22.0-30.0) sec Sodium (137-145) mmol/L Carbon Dioxide (22-30) mmol/L BUN (9-20) mg/dL Creatinine (0.66-1.25) mg/dL Glucose (74-99) mg/dL Plasma Lactic Acid Ilya (0.7-2.0) mmol/L Calcium (8.4-10.2) mg/dL C-Reactive Protein (<1.0) mg/dL Albumin (3.5-5.0) g/dL Urine Protein 2+ H (Negative) Ur Leukocyte Esterase Large H (Negative) Urine WBC 10 H (0-5) /hpf Urine Mucus Rare H (None) /hpf 01/21/23 01/21/23 01/22/23 Range/Units 20:42 20:42 00:06 WBC (3.8-10.6) k/uL RBC (4.30-5.90) m/uL Hgb (13.0-17.5) gm/dL Hct (39.0-53.0) % MCV (80.0-100.0) fL RDW (11.5-15.5) % Neutrophils # (Manual) (1.3-7.7) k/uL Lymphocytes # (Manual) (1.0-4.8) k/uL Metamyelocytes # (Man) (0) k/uL Myelocytes # (Manual) (0) k/uL Macrocytosis PT (10.0-12.5) sec INR (<1.2) APTT (22.0-30.0) sec Sodium 135 L (137-145) mmol/L Carbon Dioxide 21 L (22-30) mmol/L BUN 78 H (9-20) mg/dL Creatinine 2.64 H (0.66-1.25) mg/dL Glucose 196 H (74-99) mg/dL Plasma Lactic Acid Ilya 2.4 H* 2.6 H* (0.7-2.0) mmol/L Calcium 8.2 L (8.4-10.2) mg/dL C-Reactive Protein (<1.0) mg/dL Albumin 2.9 L (3.5-5.0) g/dL Urine Protein (Negative) Ur Leukocyte Esterase (Negative) Urine WBC (0-5) /hpf Urine Mucus (None) /hpf 01/22/23 01/22/23 01/22/23 Range/Units 08:38 08:38 08:47 WBC (3.8-10.6) k/uL RBC 2.26 L (4.30-5.90) m/uL Hgb 7.5 L (13.0-17.5) gm/dL Hct 24.2 L (39.0-53.0) % MCV 107.3 H (80.0-100.0) fL RDW 21.3 H (11.5-15.5) % Neutrophils # (Manual) (1.3-7.7) k/uL Lymphocytes # (Manual) (1.0-4.8) k/uL Metamyelocytes # (Man) (0) k/uL Myelocytes # (Manual) (0) k/uL Macrocytosis Marked A PT (10.0-12.5) sec INR (<1.2) APTT (22.0-30.0) sec Sodium 135 L (137-145) mmol/L Carbon Dioxide 17 L (22-30) mmol/L BUN 79 H (9-20) mg/dL Creatinine 2.76 H (0.66-1.25) mg/dL Glucose 145 H (74-99) mg/dL Plasma Lactic Acid Ilya (0.7-2.0) mmol/L Calcium 8.0 L (8.4-10.2) mg/dL C-Reactive Protein 31.9 H (<1.0) mg/dL Albumin 2.7 L (3.5-5.0) g/dL Urine Protein (Negative) Ur Leukocyte Esterase (Negative) Urine WBC (0-5) /hpf Urine Mucus (None) /hpf Microbiology - Last 24 Hours (Table) 01/21/23 23:02 Gram Stain - Preliminary Foot - Left
[2023-01-22] MEDS ORDERED: SACUBITRIL/VALSARTAN 24 MG-26 MG TABLET PO SCH (17:00)
[2023-01-22] MEDS: INSULIN ASPART (NovoLOG) 100 UNIT/ML VIAL SQ SCH ×2 (17:45→21:10)
[2023-01-22 17:50] LABS: Glucose,Whole Blood 181 mg/dL (70-110)
[2023-01-22 19:56] LABS: Glucose,Whole Blood 202 mg/dL (70-110)
--- NOTE | 2023-01-22 20:55 | P.CONS ---
History of Present Illness - Reason for Consult Consult date: 01/22/23 Sepsis, HCAP, history of C. diff Requesting physician: Aubrey Rojas - Chief Complaint Weakness and diarrhea X few days - History of Present Illness Patient is a 72-year-old male with past medical history significant for atrial fibrillation coronary disease heart failure diabetes mellitus hypertension hyperlipidemia he was recently admitted to the hospital and the patient did have a Proteus mirabilis bacteremia source was likely abdominal treated with a course of IV followed by oral antibiotic therapy subsequently readmitted to the hospital and the patient has been treated for C. difficile colitis patient has not been sent to the [facility] ER last night for evaluation of hypotension and weakness patient denies having any headache or URI symptoms patient denies having any chest pain has been complaining of some shortness of breath he did have minimal dry cough no sputum production nausea no vomiting did have some mild dull aching abdominal pain without any radiation also complaining of diarrhea and the patient is having bowel movements every hour and they are per the nursing staff, work-up in the ER including patient did have vital of 13.9 with a left shift. Creatinine has been elevated liver enzymes are normal urine was mildly positive patient did have a chest x-ray this consultation right lower lobe consistent with a bronchopneumonia patient was started on IV Flagyl and oral vancomycin infectious disease was consulted kailee donnell for pneumonia and has a recent history of C. difficile Review of Systems Positive point and negatives has been mentioned in the HPI, complete review of systems was performed and all other systems are negative Past Medical History Past Medical History: Atrial Fibrillation, Coronary Artery Disease (CAD), Heart Failure, Diabetes Mellitus, Hyperlipidemia, Hypertension Additional Past Medical History / Comment(s): See Dr Piedra's H&P. "Feet cold sometimes". Gout. Hx UTI and kidney infection with Covid. History of Any Multi-Drug Resistant Organisms: None Reported Past Surgical History: Heart Catheterization With Stent, Orthopedic Surgery, Pacemaker Additional Past Surgical History / Comment(s): 2 STENTS DEC 2020, left hip surgery X2. Past Anesthesia/Blood Transfusion Reactions: No Reported Reaction, Postoperative Nausea & Vomiting (PONV) Additional Past Anesthesia/Blood Transfusion Reaction / Comm: UNKNOWN FAMILY HX. Date of Last Stent Placement:: DEC 2020 Type of Cardiac Device: Unknown Device Placement Date:: Unknown Past Psychological History: Anxiety, Depression Smoking Status: Former smoker Past Alcohol Use History: None Reported Past Drug Use History: None Reported - Past Family History Mother Family Medical History: Cancer Brother(s) Family Medical History: Cancer Additional Family Medical History / Comment(s): Lung cancer. Father History Unknown: Yes Family Medical History: Hyperlipidemia Medications and Allergies Home Medications Medication Instructions Recorded Confirmed Type Ferrous Sulfate [Iron] 325 mg PO DAILY@0800 10/21/20 01/21/23 History Sertraline HCl [Zoloft] 50 mg PO HS@209910/21/20 01/21/23 History allopurinoL [Zyloprim] 100 mg PO DAILY@0800 10/21/20 01/21/23 History risperiDONE [RisperDAL] 0.5 mg PO HS@209910/21/20 01/21/23 History Apixaban [Eliquis] 5 mg PO BID@0800,1700 05/09/21 01/21/23 History Thiamine HCl [Vitamin B-1] 100 mg PO DAILY@0800 05/09/21 01/21/23 History Sacubitril/Valsartan [Entresto 24 1 tab PO BID@0800,1700 10/01/22 01/21/23 History mg-26 mg Tablet] Atorvastatin [Lipitor] 40 mg PO HS@209910/16/22 01/21/23 History Clopidogrel [Plavix] 75 mg PO DAILY@0800 10/16/22 01/21/23 History Lidocaine 5% Patch [Lidoderm 5% 1 patch TRANSDERM DAILY@0800 10/17/22 01/21/23 History Patch] Cholecalciferol [Vitamin D3 (25 50 mcg PO DAILY@0800 12/14/22 01/21/23 History Mcg = 1000 Iu)] Cyclobenzaprine [Flexeril] 5 mg PO TID@0600,1400,2200 12/14/22 01/21/23 History Furosemide [Lasix] 40 mg PO DAILY@1400 12/14/22 01/21/23 History Ipratropium-Albuterol Nebulize 3 ml INHALATION RT-QID@00,06,12,18 12/14/22 01/21/23 History [Duoneb 0.5 mg-3 mg/3 ml Soln] Magnesium Hydroxide [Milk of 7,200 mg PO Q48H PRN 12/14/22 01/21/23 History Magnesia Concentrate] Na Phos,M-B/Na Phos,Di-Ba [Fleet 133 ml RECTAL DAILY PRN 12/14/22 01/21/23 History Adult] Potassium Chloride ER [K-Dur 20] 20 meq PO BID@0800,1700 12/14/22 01/21/23 History Sodium Bicarbonate Tab 650 mg PO BID@0800,1700 12/14/22 01/21/23 History bisacodyL [Dulcolax] 10 mg RECTAL DAILY PRN 12/14/22 01/21/23 History oxyBUTYnin chloride [oxyBUTYnin 5 mg PO DAILY@0800 12/14/22 01/21/23 History chloride ER] Budesonide [Pulmicort] 1 mg INHALATION RT-BID@0800,1700 12/27/22 01/21/23 History Dapagliflozin Propanediol [Farxiga] 10 mg PO DAILY@0800 12/27/22 01/21/23 History Lactobacillus Acidophilus 1 cap PO DAILY@0800 12/27/22 01/21/23 History [Acidophilus Probiotic] Pantoprazole [Protonix] 40 mg PO DAILY@0600 12/27/22 01/21/23 History Acetaminophen Tab [Tylenol] 650 mg PO Q6HR PRN tab 01/06/23 01/21/23 Rx Spironolactone [Aldactone] 12.5 mg PO DAILY@0800 #0 01/06/23 01/21/23 Rx Amiodarone [Cordarone] 200 mg PO DAILY@0800 01/21/23 01/21/23 History Furosemide [Lasix] 60 mg PO DAILY@0800 01/21/23 01/21/23 History Glucerna Shake 237 ml PO TID@0800,1200,1700 01/21/23 01/21/23 History INSULIN ASPART (NovoLOG) [NovoLOG See Protocol SQ 01/21/23 01/21/23 History (formulary)] ACHS@07,11,1630,2130 Insulin Detemir (Levemir) [Levemir] 10 unit SQ HS@2100 01/21/23 01/21/23 History Ipratropium-Albuterol Nebulize 3 ml INHALATION RT-Q6H PRN 01/21/23 01/21/23 History [Duoneb 0.5 mg-3 mg/3 ml Soln] Metoprolol Tartrate [Lopressor] 50 mg PO TID@0600,1400,2200 01/21/23 01/21/23 History Multivit-Min/FA/Lycopen/Lutein 1 tab PO DAILY@0800 01/21/23 01/21/23 History [Centrum Silver Tablet] Allergies Allergy/AdvReac Type Severity Reaction Status Date / Time No Known Allergies Allergy Verified 01/21/23 21:30 Physical Exam Vitals: Vital Signs Temp Pulse Resp BP Pulse Ox 01/22/23 10:36 125 H 01/22/23 10:00 118 H 20 105/64 100 01/22/23 08:48 118 H 20 97/61 96 01/22/23 06:20 110 H 24 91/57 97 01/22/23 04:53 114 H 98 01/22/23 04:00 109 H 18 01/22/23 03:00 110 H 20 101/67 01/22/23 02:00 97.9 F 104 H 24 95/61 01/22/23 01:00 102 H 22 94/49 01/22/23 00:00 96 84/41 01/21/23 23:00 105/62 01/21/23 22:51 116 H 105/62 01/21/23 22:30 108 H 105/62 01/21/23 22:00 116 H 95/61 01/21/23 21:44 112 H 20 81/56 98 01/21/23 20:09 97.7 F 118 H 20 84/63 97 Intake and Output 01/21/23 01/22/23 01/22/23 22:59 06:59 14:59 Other: Weight 104.78 kg GENERAL DESCRIPTION: Elderly male lying in bed, no distress. No tachypnea or accessory muscle of respiration use. HEENT: Shows Pallor , no scleral icterus. Oral mucous membrane is dry. No pharyngeal erythema or thrush NECK: Trachea central, no thyromegaly. LUNGS: Unlabored breathing. Decreased breath sound the bases HEART: S1, S2, regular rate and rhythm. No loud murmur ABDOMEN: Soft, mild distention and tenderness EXTREMITIES: No edema of feet. SKIN: No rash, no masses palpable. NEUROLOGICAL: The patient is awake, alert, oriented x3, mood and affect normal. Results CBC & Chem 7: 01/23/23 07:45 01/23/23 07:45 Labs: Abnormal Lab Results - Last 24 Hours (Table) 01/21/23 01/21/23 01/21/23 Range/Units 20:42 20:42 20:42 WBC 13.9 H (3.8-10.6) k/uL RBC 2.31 L (4.30-5.90) m/uL Hgb 7.8 L (13.0-17.5) gm/dL Hct 24.6 L (39.0-53.0) % MCV 106.5 H (80.0-100.0) fL RDW 21.3 H (11.5-15.5) % Neutrophils # (Manual) 11.30 H (1.3-7.7) k/uL Lymphocytes # (Manual) 0.83 L (1.0-4.8) k/uL Metamyelocytes # (Man) 0.56 H (0) k/uL Myelocytes # (Manual) 0.14 H (0) k/uL Macrocytosis Marked A PT 13.5 H (10.0-12.5) sec INR 1.3 H (<1.2) APTT 35.0 H (22.0-30.0) sec Sodium (137-145) mmol/L Carbon Dioxide (22-30) mmol/L BUN (9-20) mg/dL Creatinine (0.66-1.25) mg/dL Glucose (74-99) mg/dL Plasma Lactic Acid Ilya (0.7-2.0) mmol/L Calcium (8.4-10.2) mg/dL Albumin (3.5-5.0) g/dL Urine Protein 2+ H (Negative) Ur Leukocyte Esterase Large H (Negative) Urine WBC 10 H (0-5) /hpf Urine Mucus Rare H (None) /hpf 01/21/23 01/21/23 01/22/23 Range/Units 20:42 20:42 00:06 WBC (3.8-10.6) k/uL RBC (4.30-5.90) m/uL Hgb (13.0-17.5) gm/dL Hct (39.0-53.0) % MCV (80.0-100.0) fL RDW (11.5-15.5) % Neutrophils # (Manual) (1.3-7.7) k/uL Lymphocytes # (Manual) (1.0-4.8) k/uL Metamyelocytes # (Man) (0) k/uL Myelocytes # (Manual) (0) k/uL Macrocytosis PT (10.0-12.5) sec INR (<1.2) APTT (22.0-30.0) sec Sodium 135 L (137-145) mmol/L Carbon Dioxide 21 L (22-30) mmol/L BUN 78 H (9-20) mg/dL Creatinine 2.64 H (0.66-1.25) mg/dL Glucose 196 H (74-99) mg/dL Plasma Lactic Acid Ilya 2.4 H* 2.6 H* (0.7-2.0) mmol/L Calcium 8.2 L (8.4-10.2) mg/dL Albumin 2.9 L (3.5-5.0) g/dL Urine Protein (Negative) Ur Leukocyte Esterase (Negative) Urine WBC (0-5) /hpf Urine Mucus (None) /hpf 01/22/23 01/22/23 Range/Units 08:38 08:38 WBC (3.8-10.6) k/uL RBC 2.26 L (4.30-5.90) m/uL Hgb 7.5 L (13.0-17.5) gm/dL Hct 24.2 L (39.0-53.0) % MCV 107.3 H (80.0-100.0) fL RDW 21.3 H (11.5-15.5) % Neutrophils # (Manual) (1.3-7.7) k/uL Lymphocytes # (Manual) (1.0-4.8) k/uL Metamyelocytes # (Man) (0) k/uL Myelocytes # (Manual) (0) k/uL Macrocytosis Marked A PT (10.0-12.5) sec INR (<1.2) APTT (22.0-30.0) sec Sodium 135 L (137-145) mmol/L Carbon Dioxide 17 L (22-30) mmol/L BUN 79 H (9-20) mg/dL Creatinine 2.76 H (0.66-1.25) mg/dL Glucose 145 H (74-99) mg/dL Plasma Lactic Acid Ilya (0.7-2.0) mmol/L Calcium 8.0 L (8.4-10.2) mg/dL Albumin 2.7 L (3.5-5.0) g/dL Urine Protein (Negative) Ur Leukocyte Esterase (Negative) Urine WBC (0-5) /hpf Urine Mucus (None) /hpf Assessment and Plan (1) C. difficile colitis Current Visit: Yes Status: Acute Code(s): A04.72 - ENTEROCOLITIS D/T CLOSTRIDIUM DIFFICILE, NOT SPCF RECUR SNOMED Code(s): 167347008 (2) Sepsis Current Visit: Yes Status: Acute Code(s): A41.9 - SEPSIS, UNSPECIFIED ORGANISM SNOMED Code(s): 35352166 Plan: 1patient presented to hospital with hypotension weakness in this patient who did have a elevated white count diarrhea source is likely C. difficile colitis that has failed outpatient oral vancomycin therapy clinic suspicious low for pneumonia in this patient with no significant cough or sputum production 2-we will discontinue vancomycin 3-check a stool for C. difficile 4-start the patient on Dificid and continue with IV Flagyl 5-gentle IV fluid We will follow on clinical condition and cultures to further adjust medication if needed Thank you for this consultation we will follow the patient along with you Dictation was produced using [employer] dictation software. please excuse any grammatical, word or spelling errors. Time with Patient: Greater than 30
[2023-01-22] MEDS: SERTRALINE 50 MG TAB PO SCH (21:09)
[2023-01-22] MEDS: ATORVASTATIN 40 MG TAB PO SCH (21:09)
[2023-01-22] MEDS: INSULIN DETEMIR (LEVEMIR) 100 UNIT/ML SYR SQ SCH (21:10)
[2023-01-22] MEDS: risperiDONE 0.5 MG TAB PO SCH (21:11)
[2023-01-22 21:33] LABS: % Iron Saturation 14.97 (15.00-50.00)
[2023-01-23] MEDS: FUROSEMIDE 10 MG/ML 4 ML VIAL IV SCH ×2 (01:39→12:17)
[2023-01-23] MEDS: metroNIDAZOLE-NS PMX 500 MG in SALINE 1 100ML.BAG IVPB SCH ×4 (01:41→23:43)
[2023-01-23 06:25] LABS: Glucose,Whole Blood 112 mg/dL (70-110)
[2023-01-23] MEDS: INSULIN ASPART (NovoLOG) 100 UNIT/ML VIAL SQ SCH ×4 (06:26→21:40)
[2023-01-23] MEDS: PANTOPRAZOLE 40 MG TABLET PO SCH (06:35)
[2023-01-23] MEDS: METOPROLOL TARTRATE 50 MG TAB PO SCH (06:35)
[2023-01-23] MEDS ORDERED: DAPAGLIFLOZIN PROPANEDIOL 10 MG TABLET PO SCH (08:00)
[2023-01-23] MEDS: FLUTICASONE 220 MCG INHALER INHALATION SCH ×2 (08:00→17:14)
[2023-01-23] MEDS: IPRATROPIUM-ALBUTEROL 3 ML NEB INHALATION SCH ×3 (08:00→17:14)
[2023-01-23] MEDS ORDERED: SPIRONOLACTONE 25 MG TAB PO SCH (08:00)
[2023-01-23 09:22] LABS: Anisocytosis Moderate; HCT 22.5 % (39.0-53.0); HGB 7.1 gm/dL (13.0-17.5); Hypochromasia Marked; MCH 33.3 pg (25.0-35.0); MCHC 31.5 g/dL (31.0-37.0); MCV 105.8 fL (80.0-100.0); Macrocytosis Marked; Mean Platelet Volume 8.2; Platelet Count 277 k/uL (150-450); Poikilocytosis Marked; RBC 2.13 m/uL (4.30-5.90); RDW 21.2 % (11.5-15.5); WBC 10.1 k/uL (3.8-10.6)
[2023-01-23 09:43] LABS: ALT 34 U/L (4-49); AST 41 U/L (17-59); African American GFR (CKD) 23 (>60 ml/min/1.73 sqM); Albumin 2.4 g/dL (3.5-5.0); Alkaline Phosphatase 66 U/L (38-126); Anion Gap 14 mmol/L; Blood Urea Nitrogen 82 mg/dL (9-20); Calcium 7.8 mg/dL (8.4-10.2); Carbon Dioxide 17 mmol/L (22-30); Chloride 100 mmol/L (98-107); Glucose 79 mg/dL (74-99); Non-African American GFR(CKD) 20 (>60 ml/min/1.73 sqM); Potassium 3.2 mmol/L (3.5-5.1); Sodium 131 mmol/L (137-145); Total Bilirubin 0.3 mg/dL (0.2-1.3); Total Protein 7.1 g/dL (6.3-8.2)
[2023-01-23] MEDS: OXYBUTYNIN XL 5 MG TAB.ER.24 PO SCH (09:45)
[2023-01-23] MEDS: SODIUM BICARBONATE TAB 650 MG TAB PO SCH ×2 (09:45→17:45)
[2023-01-23] MEDS: AMIODARONE 200 MG TAB PO SCH (09:45)
[2023-01-23] MEDS: APIXABAN 5 MG TAB PO SCH ×2 (09:45→17:46)
[2023-01-23] MEDS: allopurinoL 100 MG TAB PO SCH (09:45)
[2023-01-23] MEDS: CLOPIDOGREL 75 MG TAB PO SCH (09:45)
[2023-01-23] MEDS: FIDAXOMICIN 200 MG TABLET PO SCH ×2 (09:46→21:39)
[2023-01-23] MEDS ORDERED: POTASSIUM CHLORIDE ER 20 MEQ TAB.ER PO STA (10:10)
[2023-01-23] MEDS ORDERED: SODIUM CHLORIDE 0.9% 500 ML 500 ML IV ONE (10:25)
[2023-01-23] MEDS ORDERED: MIDODRINE 5 MG TAB PO SCH (10:30)
--- NOTE | 2023-01-23 11:29 | P.PN ---
Subjective Progress Note Date: 01/23/23 Principal diagnosis: Reason for follow-up is sepsis and severe C. diff colitis Patient is a 72-year-old male with past medical history significant for atrial fibrillation coronary disease heart failure diabetes mellitus hypertension hyperlipidemia he was recently admitted to the hospital and the patient did have a Proteus mirabilis bacteremia source was likely abdominal treated with a course of IV followed by oral antibiotic therapy subsequently readmitted to the hospital and the patient has been treated for C. difficile colitis, patient of presenting back to the hospital for evaluation of hypotension patient was noticed to have elevated white count significant diarrhea and stool for C. diff given a positive On today's evaluation that is 01/23/2023, the patient is afebrile patient is lethargic but arousable he is breathing comfortable impression is in oxygen denies any chest pain or worsening cough no nausea vomiting and no worsening diarrhea has been reported Patient white count is 10.1, creatinine is 3.0 stool for C. diff positive Objective - Vital Signs Vital signs: Vital Signs Temp 97.8 F 01/23/23 08:00 Pulse 100 01/23/23 11:15 Resp 20 01/23/23 08:00 BP 78/51 01/23/23 08:00 Pulse Ox 100 01/23/23 08:00 FiO2 Intake & Output 01/22/23 01/23/23 01/23/23 18:59 06:59 18:59 Intake Total 120 Balance 120 Weight 104.78 kg Intake: Oral 120 Other: Voiding Method Indwelling Catheter Indwelling Catheter # Bowel Movements 2 - Exam GENERAL DESCRIPTION: An elderly male lying in bed in no distress RESPIRATORY SYSTEM: Unlabored breathing , decreased breath sound at the bases HEART: S1 S2 regular rate and rhythm , ABDOMEN: Soft , no tenderness EXTREMITIES: No edema feet - Labs CBC & Chem 7: 01/23/23 07:45 01/23/23 07:45 Labs: Abnormal Lab Results - Last 24 Hours (Table) 01/22/23 01/22/23 01/22/23 Range/Units 08:38 08:47 10:21 RBC (4.30-5.90) m/uL Hgb (13.0-17.5) gm/dL Hct (39.0-53.0) % MCV (80.0-100.0) fL RDW (11.5-15.5) % Macrocytosis Sodium (137-145) mmol/L Potassium (3.5-5.1) mmol/L Carbon Dioxide (22-30) mmol/L BUN (9-20) mg/dL Creatinine (0.66-1.25) mg/dL POC Glucose (mg/dL) (70-110) mg/dL Calcium (8.4-10.2) mg/dL Iron 25 L (65-175) UG/DL TIBC 167 L (228-460) UG/DL % Saturation 14.97 L (15.00-50.00) Transferrin 119.0 L (204.0-354.0) mg/dL Ferritin 1001.0 H (22.0-322.0) ng/mL C-Reactive Protein 31.9 H (<1.0) mg/dL Albumin (3.5-5.0) g/dL C. difficile (EIA) Intrp Positive A (Negative) 01/22/23 01/22/23 01/23/23 Range/Units 17:39 19:55 06:22 RBC (4.30-5.90) m/uL Hgb (13.0-17.5) gm/dL Hct (39.0-53.0) % MCV (80.0-100.0) fL RDW (11.5-15.5) % Macrocytosis Sodium (137-145) mmol/L Potassium (3.5-5.1) mmol/L Carbon Dioxide (22-30) mmol/L BUN (9-20) mg/dL Creatinine (0.66-1.25) mg/dL POC Glucose (mg/dL) 181 H 202 H 112 H (70-110) mg/dL Calcium (8.4-10.2) mg/dL Iron (65-175) UG/DL TIBC (228-460) UG/DL % Saturation (15.00-50.00) Transferrin (204.0-354.0) mg/dL Ferritin (22.0-322.0) ng/mL C-Reactive Protein (<1.0) mg/dL Albumin (3.5-5.0) g/dL C. difficile (EIA) Intrp (Negative) 01/23/23 01/23/23 Range/Units 07:45 07:45 RBC 2.13 L (4.30-5.90) m/uL Hgb 7.1 L (13.0-17.5) gm/dL Hct 22.5 L (39.0-53.0) % MCV 105.8 H (80.0-100.0) fL RDW 21.2 H (11.5-15.5) % Macrocytosis Marked A Sodium 131 L (137-145) mmol/L Potassium 3.2 L (3.5-5.1) mmol/L Carbon Dioxide 17 L (22-30) mmol/L BUN 82 H (9-20) mg/dL Creatinine 3.00 H (0.66-1.25) mg/dL POC Glucose (mg/dL) (70-110) mg/dL Calcium 7.8 L (8.4-10.2) mg/dL Iron (65-175) UG/DL TIBC (228-460) UG/DL % Saturation (15.00-50.00) Transferrin (204.0-354.0) mg/dL Ferritin (22.0-322.0) ng/mL C-Reactive Protein (<1.0) mg/dL Albumin 2.4 L (3.5-5.0) g/dL C. difficile (EIA) Intrp (Negative) Microbiology - Last 24 Hours (Table) 01/21/23 23:02 Gram Stain - Preliminary Foot - Left Wound Culture - Preliminary Presumptive MRSA 01/21/23 20:35 Blood Culture - Preliminary Blood 01/21/23 20:20 Blood Culture - Preliminary Blood Assessment and Plan (1) C. difficile colitis Current Visit: Yes Status: Acute Code(s): A04.72 - ENTEROCOLITIS D/T CLOSTRIDIUM DIFFICILE, NOT SPCF RECUR SNOMED Code(s): 313707318 (2) Sepsis Current Visit: Yes Status: Acute Code(s): A41.9 - SEPSIS, UNSPECIFIED ORGANISM SNOMED Code(s): 59318804 Plan: 1patient presented to hospital with hypotension weakness in this patient who did have a elevated white count diarrhea source is likely C. difficile colitis that has failed outpatient oral vancomycin therapy clinic suspicious low for pneumonia in this patient with no significant cough or sputum production, patient stool for C. diff came back positive 2-patient to continue with Dificid and IV Flagyl because of severe C. diff c olitis and monitor clinical course closely Dictation was produced using [employer] software. please excuse any grammatical, word or spelling errors. Time with Patient: Less than 30
[2023-01-23 11:59] LABS: Glucose,Whole Blood 102 mg/dL (70-110)
--- NOTE | 2023-01-23 12:16 | P.PN ---
Subjective Progress Note Date: 01/23/23 Patient is a 72-year-old male with systolic CHF, A. fib on Eliquis, CAD status post stents, COPD, type 2 diabetes, and hypertension who presented from rehab with hypotension. He was recently hospitalized here form 12/27/22 through 01/06/23 due to C. diff colitis with sepsis. It was discharged in [place] on oral vancomycin. On arrival to the ER his vital signs are remarkable for heart rate of 118 and a blood pressure of 84/63. Laboratory analysis was remarkable for white blood cell count 13.9, hemoglobin 7.8, INR 1.3, sodium 135, BUN 78, creatinine 2.64, lactic acid 2.4. Influenza A/B were negative. Chest x-ray was completed which showed possible pneumonia versus pulmonary edema. Patient was subsequently started on doxycycline, Rocephin, vancomycin IV and orally as well as Flagyl due to his recent C. diff. Arrangements are made for admission. Patient seen and examined at bedside. He visibly appears to be having some shortness of breath, patient denies shortness of breath but does complain of abdominal pain, cramping, and increasing diarrhea. Vital signs reviewed General: nontoxic, no distress, appears at stated age Cardiovascular: S1S2 reg, no murmur, positive posterior tibial pulse bilateral, Lungs: Rhonchi bilaterally , no accessory muscle use Abdominal: soft, nontender to palpation, no guarding, no appreciable organomegaly Ext: no gross muscle atrophy, diffuse anasarca, no contractures Neuro: CN II-XI grossly intact, no focal neuro deficits Psych: Flat affect, poor historian Assessment/Plan: C diff colitis, recurrent Acute kidney injury on CKD stage III, possible cardiorenal syndrome, baseline creatinine 1.3-1.5 Metabolic acidosis Acute on chronic Anemia of chronic disease related to CKD, baseline hemoglobin 8 Acute exacerbation of systolic congestive heart failure with ejection fraction 35-40% Atrial fibrillation with rapid ventricular response CAD - continue with flagyl 500 mg IVPB three times daily D # 3 -Infectious disease note reviewed: Dificid and Flagyl. - Dificid 200 mg by mouth twice a day day #2 - strict I and O, daily weight - Await further nephrology recs -Hold farxiga, hold entresto -Eliquis 5 mg twice daily, metoprolol 25 mg 3 times daily cold for systolic blood pressure less than 90, amiodarone 400 mg daily -Sodium bicarbonate tablets 650 mg twice daily Hypotension, suspect multifactorial -Stop Lasix and Aldactone -Normal saline 500 mL bolus -Midodrin 2.5 mg by mouth 1 now due to symptomatic hypotension. Discussed with cardio and will not conitnue use due to rising creatinine and increased afterload in conjunction with systolic cardiomyopathy Type 2 DM, insulin dependent -Sliding-scale insulin -Levemir 10 units at night - hold Farxiga -Follow blood sugars -Glipizide on hold - A1C 6.3 01/11/23 Chronic: HTN HLD Lactic acidosis, resolved Imaging: None new Data Review: Labs reviewed today include CBC and basic metabolic profile was remarkable for hemoglobin 7.1, sodium 131, potassium 3.2, BUN 80, creatinine 3 DVT prophylaxis: Discussed with: Anticipated discharge date: Anticipated discharge place: This dictation was prepared using [employer] voice recognition software. Though every attempt is made to correct errors during dictation some may still exist. Active Medications Acetaminophen (Acetaminophen Tab 325 Mg Tab) 650 mg PO Q4HR PRN PRN Reason: Fever and/ or Pain Albuterol/Ipratropium (Ipratropium-Albuterol 3 Ml Neb) 3 ml INHALATION RT-Q6H PRN PRN Reason: Shortness Of Breath Last Admin: 01/22/23 20:06 Dose: 3 ml Albuterol/Ipratropium (Ipratropium-Albuterol 3 Ml Neb) 3 ml INHALATION RT- QID@00,06,12,18 [facility] Last Admin: 01/23/23 11:03 Dose: 3 ml Allopurinol (Allopurinol 100 Mg Tab) 100 mg PO DAILY@0800 [facility] Last Admin: 01/23/23 09:45 Dose: 100 mg Amiodarone HCl (Amiodarone 200 Mg Tab) 400 mg PO DAILY [facility] Last Admin: 01/23/23 09:45 Dose: 400 mg Apixaban (Apixaban 5 Mg Tab) 5 mg PO BID@0800,1700 [facility]; Protocol Last Admin: 01/23/23 09:45 Dose: 5 mg Atorvastatin Calcium (Atorvastatin 40 Mg Tab) 40 mg PO HS@2100 [facility] Last Admin: 01/22/23 21:09 Dose: 40 mg Clopidogrel Bisulfate (Clopidogrel 75 Mg Tab) 75 mg PO DAILY@0800 [facility] Last Admin: 01/23/23 09:45 Dose: 75 mg Dextrose/Water (Dextrose 50% Syringe 50 Ml) 25 ml IVP PER PROTOCOL PRN; Protocol PRN Reason: Hypoglycemia Dextrose/Water (Dextrose 50% Syringe 50 Ml) 50 ml IVP PER PROTOCOL PRN; Protocol PRN Reason: Hypoglycemia Fidaxomicin (Fidaxomicin 200 Mg Tablet) 200 mg PO BID [facility] Stop: 01/31/23 21:01 Last Admin: 01/23/23 09:46 Dose: 200 mg Fluticasone Propionate (Fluticasone 220 Mcg Inhaler) 2 puff INHALATION RT-BID@0 800,1700 [facility] Last Admin: 01/23/23 08:00 Dose: 2 puff Metronidazole 500 mg/ IV (Solution) 100 mls @ 100 mls/hr IVPB Q8HR [facility]; Protocol Last Admin: 01/23/23 09:44 Dose: 100 mls/hr Insulin Aspart (Insulin Aspart (Novolog) 100 Unit/Ml Vial) 0 unit SQ ACHS [facility]; Protocol Last Admin: 01/23/23 12:03 Dose: Not Given Insulin Detemir (Insulin Detemir (Levemir) 100 Unit/Ml Syr) 10 unit SQ HS@2100 [facility] Last Admin: 01/22/23 21:10 Dose: 10 unit Metoprolol Tartrate (Metoprolol Tartrate 25 Mg Tab) 25 mg PO TID@0600,1400,2200 [facility] Miscellaneous Information (Pneumonia Protocol Utilized 1 Each Misc) 1 each PO ONCE PRN PRN Reason: Per Protocol Oxybutynin Chloride (Oxybutynin Xl 5 Mg Tab.Er.24) 5 mg PO DAILY@0800 [facility] Last Admin: 01/23/23 09:45 Dose: 5 mg Pantoprazole Sodium (Pantoprazole 40 Mg Tablet) 40 mg PO DAILY@0600 [facility] Last Admin: 01/23/23 06:35 Dose: 40 mg Risperidone (Risperidone 0.5 Mg Tab) 0.5 mg PO HS@2100 [facility] Last Admin: 01/22/23 21:11 Dose: 0.5 mg Sertraline HCl (Sertraline 50 Mg Tab) 50 mg PO HS@2100 [facility] Last Admin: 01/22/23 21:09 Dose: 50 mg Sodium Bicarbonate (Sodium Bicarbonate Tab 650 Mg Tab) 650 mg PO BID@0800,1700 [facility] Last Admin: 01/23/23 09:45 Dose: 650 mg Objective - Vital Signs Vital signs: Vital Signs Temp 97.8 F 01/23/23 08:00 Pulse 100 01/23/23 11:15 Resp 20 01/23/23 08:00 BP 78/51 01/23/23 08:00 Pulse Ox 100 01/23/23 08:00 FiO2 Intake & Output 01/22/23 01/23/23 01/23/23 18:59 06:59 18:59 Intake Total 120 Balance 120 Weight 104.78 kg Intake: Oral 120 Other: Voiding Method Indwelling Catheter Indwelling Catheter # Bowel Movements 2 - Labs CBC & Chem 7: 01/23/23 07:45 01/23/23 07:45 Labs: Abnormal Lab Results - Last 24 Hours (Table) 01/22/23 01/22/23 01/22/23 Range/Units 08:38 08:47 10:21 RBC (4.30-5.90) m/uL Hgb (13.0-17.5) gm/dL Hct (39.0-53.0) % MCV (80.0-100.0) fL RDW (11.5-15.5) % Macrocytosis Sodium (137-145) mmol/L Potassium (3.5-5.1) mmol/L Carbon Dioxide (22-30) mmol/L BUN (9-20) mg/dL Creatinine (0.66-1.25) mg/dL POC Glucose (mg/dL) (70-110) mg/dL Calcium (8.4-10.2) mg/dL Iron 25 L (65-175) UG/DL TIBC 167 L (228-460) UG/DL % Saturation 14.97 L (15.00-50.00) Transferrin 119.0 L (204.0-354.0) mg/dL Ferritin 1001.0 H (22.0-322.0) ng/mL C-Reactive Protein 31.9 H (<1.0) mg/dL Albumin (3.5-5.0) g/dL C. difficile (EIA) Intrp Positive A (Negative) 01/22/23 01/22/23 01/23/23 Range/Units 17:39 19:55 06:22 RBC (4.30-5.90) m/uL Hgb (13.0-17.5) gm/dL Hct (39.0-53.0) % MCV (80.0-100.0) fL RDW (11.5-15.5) % Macrocytosis Sodium (137-145) mmol/L Potassium (3.5-5.1) mmol/L Carbon Dioxide (22-30) mmol/L BUN (9-20) mg/dL Creatinine (0.66-1.25) mg/dL POC Glucose (mg/dL) 181 H 202 H 112 H (70-110) mg/dL Calcium (8.4-10.2) mg/dL Iron (65-175) UG/DL TIBC (228-460) UG/DL % Saturation (15.00-50.00) Transferrin (204.0-354.0) mg/dL Ferritin (22.0-322.0) ng/mL C-Reactive Protein (<1.0) mg/dL Albumin (3.5-5.0) g/dL C. difficile (EIA) Intrp (Negative) 01/23/23 01/23/23 Range/Units 07:45 07:45 RBC 2.13 L (4.30-5.90) m/uL Hgb 7.1 L (13.0-17.5) gm/dL Hct 22.5 L (39.0-53.0) % MCV 105.8 H (80.0-100.0) fL RDW 21.2 H (11.5-15.5) % Macrocytosis Marked A Sodium 131 L (137-145) mmol/L Potassium 3.2 L (3.5-5.1) mmol/L Carbon Dioxide 17 L (22-30) mmol/L BUN 82 H (9-20) mg/dL Creatinine 3.00 H (0.66-1.25) mg/dL POC Glucose (mg/dL) (70-110) mg/dL Calcium 7.8 L (8.4-10.2) mg/dL Iron (65-175) UG/DL TIBC (228-460) UG/DL % Saturation (15.00-50.00) Transferrin (204.0-354.0) mg/dL Ferritin (22.0-322.0) ng/mL C-Reactive Protein (<1.0) mg/dL Albumin 2.4 L (3.5-5.0) g/dL C. difficile (EIA) Intrp (Negative) Microbiology - Last 24 Hours (Table) 01/21/23 23:02 Gram Stain - Preliminary Foot - Left Wound Culture - Preliminary Presumptive MRSA 01/21/23 20:35 Blood Culture - Preliminary Blood 01/21/23 20:20 Blood Culture - Preliminary Blood
[2023-01-23] MEDS: METOPROLOL TARTRATE 25 MG TAB PO SCH ×2 (12:54→21:37)
--- NOTE | 2023-01-23 13:00 | P.PN ---
Subjective Progress Note Date: 01/23/23 This is Jose Shoemaker NP, I'm dictating on behalf of Dr. Piedra's H&P and A&P. Patient was interviewed and examined. Patient is a 72-year-old male who presents to the hospital with persistent hypotension. Patient also has a history of A. fib with RVR. Oral amiodarone was started yesterday. Patient appears to be tolerating this well. Heart rates remain slightly elevated in the low 100s. Despite interventions patient's blood pressure remains extremely low. Patient was recently started on midodrine and a fluid bolus was ordered. Due to the patient's significant history of congestive heart failure, would recommend caution with IV fluids, even though it does appear the patient needs them. Patient today reports that he is feeling okay. He is denying chest pain and shortness of breath. Patient has mild swelling in the bilateral lower extremities at this time. GENERAL: Well-appearing, well-nourished and in no acute distress. NECK: Supple without JVD or thyromegaly. LUNGS: Breath sounds clear to auscultation bilaterally. Respiration equal and unlabored. No wheezes, rales or rhonchi. HEART: Regular rate and rhythm without murmurs, rubs or gallops. S1 and S2 heard. EXTREMITIES: Normal range of motion, mild bilateral peripheral edema. No clubbing or cyanosis. Peripheral pulses intact and strong. VITALS: Temp 97.8, pulse 102, blood pressure 73/51, O2 saturation 100% on 2 L TELEMETRY: A. fib with RVR LABS: White count 10.1, hemoglobin 7.1, platelets 277, sodium 131, potassium 3.2, BUN 82, creatinine 3, hemoglobin A1c 5.9 IMPRESSION: 1. Sepsis secondary to recurrent C. diff 2. Hypertension 3. Acute on chronic kidney disease 4. Persistent atrial fibrillation with rapid ventricular response 5. Acute on chronic congestive heart failure with reduced EF 6. Ischemic cardiomyopathy 7. Coronary artery disease with previous stenting 8. Ventricular tachycardia with previous AICD implantation 9. Hypertension 10. Hyperlipidemia 11. Diabetes PLAN: Recommend discontinuing midodrine, as this will likely not help in anyway due to the patient's significant comorbid conditions. If he is overly dehydrated, midodrine will have very little effect. Overall agree with IV fluid recommendations, however this needs to be done cautiously as to not fluid overload the patient. Overall recommendation is DO NOT RESUSCITATE CODE STATUS, with possible hospice discussion. Medical treatment has been maximized at this time. Further recommendations based on patient's clinical course. Objective - Vital Signs Vital signs: Vital Signs Temp 97.8 F 01/23/23 08:00 Pulse 100 01/23/23 11:15 Resp 20 01/23/23 08:00 BP 78/51 01/23/23 08:00 Pulse Ox 100 01/23/23 08:00 FiO2 Intake & Output 01/22/23 01/23/23 01/23/23 18:59 06:59 18:59 Intake Total 120 Balance 120 Weight 104.78 kg Intake: Oral 120 Other: Voiding Method Indwelling Catheter Indwelling Catheter # Bowel Movements 2 - Labs CBC & Chem 7: 01/23/23 07:45 01/23/23 07:45 Labs: Abnormal Lab Results - Last 24 Hours (Table) 01/22/23 01/22/23 01/22/23 Range/Units 08:38 08:47 10:21 RBC (4.30-5.90) m/uL Hgb (13.0-17.5) gm/dL Hct (39.0-53.0) % MCV (80.0-100.0) fL RDW (11.5-15.5) % Macrocytosis Sodium (137-145) mmol/L Potassium (3.5-5.1) mmol/L Carbon Dioxide (22-30) mmol/L BUN (9-20) mg/dL Creatinine (0.66-1.25) mg/dL POC Glucose (mg/dL) (70-110) mg/dL Calcium (8.4-10.2) mg/dL Iron 25 L (65-175) UG/DL TIBC 167 L (228-460) UG/DL % Saturation 14.97 L (15.00-50.00) Transferrin 119.0 L (204.0-354.0) mg/dL Ferritin 1001.0 H (22.0-322.0) ng/mL C-Reactive Protein 31.9 H (<1.0) mg/dL Albumin (3.5-5.0) g/dL C. difficile (EIA) Intrp Positive A (Negative) 01/22/23 01/22/2323 Range/Units 17:39 19:55 06:22 RBC (4.30-5.90) m/uL Hgb (13.0-17.5) gm/dL Hct (39.0-53.0) % MCV (80.0-100.0) fL RDW (11.5-15.5) % Macrocytosis Sodium (137-145) mmol/L Potassium (3.5-5.1) mmol/L Carbon Dioxide (22-30) mmol/L BUN (9-20) mg/dL Creatinine (0.66-1.25) mg/dL POC Glucose (mg/dL) 181 H 202 H 112 H (70-110) mg/dL Calcium (8.4-10.2) mg/dL Iron (65-175) UG/DL TIBC (228-460) UG/DL % Saturation (15.00-50.00) Transferrin (204.0-354.0) mg/dL Ferritin (22.0-322.0) ng/mL C-Reactive Protein (<1.0) mg/dL Albumin (3.5-5.0) g/dL C. difficile (EIA) Intrp (Negative) 01/23/23 01/23/23 Range/Units 07:45 07:45 RBC 2.13 L (4.30-5.90) m/uL Hgb 7.1 L (13.0-17.5) gm/dL Hct 22.5 L (39.0-53.0) % MCV 105.8 H (80.0-100.0) fL RDW 21.2 H (11.5-15.5) % Macrocytosis Marked A Sodium 131 L (137-145) mmol/L Potassium 3.2 L (3.5-5.1) mmol/L Carbon Dioxide 17 L (22-30) mmol/L BUN 82 H (9-20) mg/dL Creatinine 3.00 H (0.66-1.25) mg/dL POC Glucose (mg/dL) (70-110) mg/dL Calcium 7.8 L (8.4-10.2) mg/dL Iron (65-175) UG/DL TIBC (228-460) UG/DL % Saturation (15.00-50.00) Transferrin (204.0-354.0) mg/dL Ferritin (22.0-322.0) ng/mL C-Reactive Protein (<1.0) mg/dL Albumin 2.4 L (3.5-5.0) g/dL C. difficile (EIA) Intrp (Negative) Microbiology - Last 24 Hours (Table) 01/21/23 23:02 Gram Stain - Preliminary Foot - Left Wound Culture - Preliminary Presumptive MRSA 01/21/23 20:35 Blood Culture - Preliminary Blood 01/21/23 20:20 Blood Culture - Preliminary Blood
--- NOTE | 2023-01-23 13:01 | P.PN ---
Subjective Progress Note Date: 01/23/23 Follow-up for acute kidney injury. Urine output not documented, minimal urine output in the catheter, it appears dark. Blood pressures low. Objective - Vital Signs Vital signs: Vital Signs Temp 97.8 F 01/23/23 08:00 Pulse 100 01/23/23 11:15 Resp 20 01/23/23 08:00 BP 78/51 01/23/23 08:00 Pulse Ox 100 01/23/23 08:00 FiO2 Intake & Output 01/22/23 01/23/23 01/23/23 18:59 06:59 18:59 Intake Total 120 Balance 120 Weight 104.78 kg Intake: Oral 120 Other: Voiding Method Indwelling Catheter Indwelling Catheter # Bowel Movements 2 - Exam No acute distress S1-S2 heard Decreased breath sounds Edema - Labs CBC & Chem 7: 01/23/23 07:45 01/23/23 07:45 Labs: Abnormal Lab Results - Last 24 Hours (Table) 01/22/23 01/22/23 01/22/23 Range/Units 08:38 08:47 10:21 RBC (4.30-5.90) m/uL Hgb (13.0-17.5) gm/dL Hct (39.0-53.0) % MCV (80.0-100.0) fL RDW (11.5-15.5) % Macrocytosis Sodium (137-145) mmol/L Potassium (3.5-5.1) mmol/L Carbon Dioxide (22-30) mmol/L BUN (9-20) mg/dL Creatinine (0.66-1.25) mg/dL POC Glucose (mg/dL) (70-110) mg/dL Calcium (8.4-10.2) mg/dL Iron 25 L (65-175) UG/DL TIBC 167 L (228-460) UG/DL % Saturation 14.97 L (15.00-50.00) Transferrin 119.0 L (204.0-354.0) mg/dL Ferritin 1001.0 H (22.0-322.0) ng/mL C-Reactive Protein 31.9 H (<1.0) mg/dL Albumin (3.5-5.0) g/dL C. difficile (EIA) Intrp Positive A (Negative) 01/22/23 01/22/2301/23/23 Range/Units 17:39 19:55 06:22 RBC (4.30-5.90) m/uL Hgb (13.0-17.5) gm/dL Hct (39.0-53.0) % MCV (80.0-100.0) fL RDW (11.5-15.5) % Macrocytosis Sodium (137-145) mmol/L Potassium (3.5-5.1) mmol/L Carbon Dioxide (22-30) mmol/L BUN (9-20) mg/dL Creatinine (0.66-1.25) mg/dL POC Glucose (mg/dL) 181 H 202 H 112 H (70-110) mg/dL Calcium (8.4-10.2) mg/dL Iron (65-175) UG/DL TIBC (228-460) UG/DL % Saturation (15.00-50.00) Transferrin (204.0-354.0) mg/dL Ferritin (22.0-322.0) ng/mL C-Reactive Protein (<1.0) mg/dL Albumin (3.5-5.0) g/dL C. difficile (EIA) Intrp (Negative) 01/23/23 01/23/23 Range/Units 07:45 07:45 RBC 2.13 L (4.30-5.90) m/uL Hgb 7.1 L (13.0-17.5) gm/dL Hct 22.5 L (39.0-53.0) % MCV 105.8 H (80.0-100.0) fL RDW 21.2 H (11.5-15.5) % Macrocytosis Marked A Sodium 131 L (137-145) mmol/L Potassium 3.2 L (3.5-5.1) mmol/L Carbon Dioxide 17 L (22-30) mmol/L BUN 82 H (9-20) mg/dL Creatinine 3.00 H (0.66-1.25) mg/dL POC Glucose (mg/dL) (70-110) mg/dL Calcium 7.8 L (8.4-10.2) mg/dL Iron (65-175) UG/DL TIBC (228-460) UG/DL % Saturation (15.00-50.00) Transferrin (204.0-354.0) mg/dL Ferritin (22.0-322.0) ng/mL C-Reactive Protein (<1.0) mg/dL Albumin 2.4 L (3.5-5.0) g/dL C. difficile (EIA) Intrp (Negative) Microbiology - Last 24 Hours (Table) 01/21/23 23:02 Gram Stain - Preliminary Foot - Left Wound Culture - Preliminary Presumptive MRSA 01/21/23 20:35 Blood Culture - Preliminary Blood 01/21/23 20:20 Blood Culture - Preliminary Blood Assessment and Plan Assessment: #1 acute kidney injury secondary to hemodynamic ATN with low blood pressures. -Baseline creatinine 1.1-1.3 MG per DL. -Urine analysis 2+ protein, leukocyte esterase. -And renal ultrasound no hydronephrosis. #2 chronic kidney disease stage III suspected diabetic kidney disease. Baseline 1.1-1.3 MG per DL. #3 CHF with systolic dysfunction EF of 35% #4 volume overload #5 left renal lesion, on renal ultrasound #6 hypotension Plan: #1 renal function worsening. With hypotension and decreased EF, treat like cardiogenic shock with inotropic support. #2 add midodrine for hemodynamic support #3 discussed plan of care with the primary team.
[2023-01-23 16:15] LABS: Glucose,Whole Blood 119 mg/dL (70-110)
[2023-01-23] MEDS: MIDODRINE 5 MG TAB PO SCH ×2 (17:45)
[2023-01-23 20:00] LABS: Glucose,Whole Blood 167 mg/dL (70-110)
[2023-01-23] MEDS: ATORVASTATIN 40 MG TAB PO SCH (21:39)
[2023-01-23] MEDS: SERTRALINE 50 MG TAB PO SCH (21:39)
[2023-01-23] MEDS: risperiDONE 0.5 MG TAB PO SCH (21:39)
[2023-01-23] MEDS: INSULIN DETEMIR (LEVEMIR) 100 UNIT/ML SYR SQ SCH (21:39)
[2023-01-24] MEDS ORDERED: VANCOMYCIN 1,750 MG in SODIUM CHLORIDE 0.9% 500 ML 500 ML IVPB SCH ×2
[2023-01-24] MEDS: IPRATROPIUM-ALBUTEROL 3 ML NEB INHALATION SCH ×5 (00:56→20:53)
[2023-01-24 06:21] LABS: Glucose,Whole Blood 110 mg/dL (70-110)
[2023-01-24] MEDS: METOPROLOL TARTRATE 25 MG TAB PO SCH ×3 (06:37→21:32)
[2023-01-24] MEDS: PANTOPRAZOLE 40 MG TABLET PO SCH (06:37)
[2023-01-24] MEDS: INSULIN ASPART (NovoLOG) 100 UNIT/ML VIAL SQ SCH ×4 (06:37→21:31)
[2023-01-24] MEDS: MIDODRINE 5 MG TAB PO SCH ×3 (06:37→17:46)
[2023-01-24] MEDS: FLUTICASONE 220 MCG INHALER INHALATION SCH ×2 (08:08→17:27)
[2023-01-24 10:05] LABS: Anisocytosis Moderate; HCT 23.9 % (39.0-53.0); HGB 7.5 gm/dL (13.0-17.5); Hypochromasia Marked; MCH 33.4 pg (25.0-35.0); MCHC 31.2 g/dL (31.0-37.0); Macrocytosis Marked; Platelet Count 309 k/uL (150-450); Poikilocytosis Moderate; RBC 2.24 m/uL (4.30-5.90); RDW 20.5 % (11.5-15.5); WBC 11.9 k/uL (3.8-10.6)
[2023-01-24] MEDS: metroNIDAZOLE-NS PMX 500 MG in SALINE 1 100ML.BAG IVPB SCH ×3 (10:21→23:52)
[2023-01-24] MEDS: allopurinoL 100 MG TAB PO SCH (10:22)
[2023-01-24] MEDS: AMIODARONE 200 MG TAB PO SCH (10:22)
[2023-01-24] MEDS: OXYBUTYNIN XL 5 MG TAB.ER.24 PO SCH (10:22)
[2023-01-24] MEDS: FIDAXOMICIN 200 MG TABLET PO SCH ×2 (10:22→21:32)
[2023-01-24] MEDS: SODIUM BICARBONATE TAB 650 MG TAB PO SCH ×2 (10:22→17:45)
[2023-01-24] MEDS: APIXABAN 5 MG TAB PO SCH ×2 (10:22→17:46)
[2023-01-24] MEDS: CLOPIDOGREL 75 MG TAB PO SCH (10:23)
[2023-01-24 10:32] LABS: African American GFR (CKD) 25 (>60 ml/min/1.73 sqM); Anion Gap 15 mmol/L; Blood Urea Nitrogen 85 mg/dL (9-20); Calcium 7.7 mg/dL (8.4-10.2); Carbon Dioxide 15 mmol/L (22-30); Chloride 103 mmol/L (98-107); Glucose 119 mg/dL (74-99); Non-African American GFR(CKD) 21 (>60 ml/min/1.73 sqM); Potassium 3.1 mmol/L (3.5-5.1); Sodium 133 mmol/L (137-145)
[2023-01-24 11:46] LABS: Glucose,Whole Blood 215 mg/dL (70-110)
--- NOTE | 2023-01-24 11:58 | P.PN ---
Subjective Progress Note Date: 01/24/23 Principal diagnosis: Reason for follow-up is sepsis and severe C. diff colitis Patient is a 72-year-old male with past medical history significant for atrial fibrillation coronary disease heart failure diabetes mellitus hypertension hyperlipidemia he was recently admitted to the hospital and the patient did have a Proteus mirabilis bacteremia source was likely abdominal treated with a course of IV followed by oral antibiotic therapy subsequently readmitted to the hospital and the patient has been treated for C. difficile colitis, patient of presenting back to the hospital for evaluation of hypotension patient was noticed to have elevated white count significant diarrhea and stool for C. diff given a positive On today's evaluation that is 01/24/2023, the patient remains to be afebrile patient is breathing comfortably on a 2 L nasal cannula oxygen, the patient denies having any denies any chest pain or worsening cough no nausea vomiting, diarrhea has slowed down per the nursing staff Patient white count is 11.9, creatinine is 2.81 stool for C. diff positive Objective - Vital Signs Vital signs: Vital Signs Temp 97.9 F 01/24/23 04:18 Pulse 108 H 01/24/23 11:30 Resp 18 01/24/23 04:18 BP 103/59 01/24/23 04:18 Pulse Ox 98 01/24/23 08:09 FiO2 Intake & Output 01/23/23 01/24/23 01/24/23 18:59 06:59 18:59 Intake Total 900 236 600 Output Total 600 Balance 300 236 600 Weight 102.5 kg Intake: Intake, IV Titration 600 Amount Sodium Chloride 0.9% 500 500 ml 500 ml @ 999 mls/hr IV .Q31M ONE Rx#:[id number] metroNIDAZOLE-NS PMX 500 100 mg In Saline 1 100ml.bag @ 100 mls/hr IVPB Q8HR [facility] Rx#:[id number] Oral 300 236 600 Output: Urine 600 Other: Voiding Method Indwelling Catheter Indwelling Catheter # Bowel Movements 1 1 - Exam GENERAL DESCRIPTION: An elderly male lying in bed in no distress RESPIRATORY SYSTEM: Unlabored breathing , decreased breath sound at the bases HEART: S1 S2 regular rate and rhythm , ABDOMEN: Soft , no tenderness EXTREMITIES: No edema feet - Labs CBC & Chem 7: 01/24/23 09:13 01/24/23 09:13 Labs: Abnormal Lab Results - Last 24 Hours (Table) 01/23/23 01/23/23 01/24/23 Range/Units 16:11 19:59 09:13 WBC (3.8-10.6) k/uL RBC (4.30-5.90) m/uL Hgb (13.0-17.5) gm/dL Hct (39.0-53.0) % MCV (80.0-100.0) fL RDW (11.5-15.5) % Macrocytosis Sodium 133 L (137-145) mmol/L Potassium 3.1 L (3.5-5.1) mmol/L Carbon Dioxide 15 L (22-30) mmol/L BUN 85 H (9-20) mg/dL Creatinine 2.81 H (0.66-1.25) mg/dL Glucose 119 H (74-99) mg/dL POC Glucose (mg/dL) 119 H 167 H (70-110) mg/dL Calcium 7.7 L (8.4-10.2) mg/dL 01/24/23 01/24/23 Range/Units 09:13 11:44 WBC 11.9 H (3.8-10.6) k/uL RBC 2.24 L (4.30-5.90) m/uL Hgb 7.5 L (13.0-17.5) gm/dL Hct 23.9 L (39.0-53.0) % MCV 107.0 H (80.0-100.0) fL RDW 20.5 H (11.5-15.5) % Macrocytosis Marked A Sodium (137-145) mmol/L Potassium (3.5-5.1) mmol/L Carbon Dioxide (22-30) mmol/L BUN (9-20) mg/dL Creatinine (0.66-1.25) mg/dL Glucose (74-99) mg/dL POC Glucose (mg/dL) 215 H (70-110) mg/dL Calcium (8.4-10.2) mg/dL Microbiology - Last 24 Hours (Table) 01/21/23 23:02 Gram Stain - Final Foot - Left Wound Culture - Final Methicillin resist S. aureus 01/21/23 20:35 Blood Culture - Preliminary Blood 01/21/23 20:20 Blood Culture - Preliminary Blood Assessment and Plan (1) C. difficile colitis Current Visit: Yes Status: Acute Code(s): A04.72 - ENTEROCOLITIS D/T CLOSTRIDIUM DIFFICILE, NOT SPCF RECUR SNOMED Code(s): 983745796 (2) Sepsis Current Visit: Yes Status: Acute Code(s): A41.9 - SEPSIS, UNSPECIFIED ORGANISM SNOMED Code(s): 33540591 Plan: 1patient presented to hospital with hypotension weakness in this patient who did have a elevated white count diarrhea source is likely C. difficile colitis that has failed outpatient oral vancomycin therapy clinic suspicious low for pneumonia in this patient with no significant cough or sputum production, patient stool for C. diff came back positive 2-patient did have a minimal clinical improvement and will continue with Dificid and IV Flagyl because of severe C. diff colitis and monitor clinical course closely Dictation was produced using [employer] dictation software. please excuse any grammatical, word or spelling errors. Time with Patient: Less than 30
[2023-01-24] MEDS ORDERED: POTASSIUM CHLORIDE ER 20 MEQ TAB.ER PO STA (13:53)
--- NOTE | 2023-01-24 13:53 | P.PN ---
Subjective Progress Note Date: 01/24/23 Patient is a 72-year-old male with systolic CHF, A. fib on Eliquis, CAD status post stents, COPD, type 2 diabetes, and hypertension who presented from rehab with hypotension. He was recently hospitalized here form 12/27/22 through 01/06/23 due to C. diff colitis with sepsis. It was discharged in [place] on oral vancomycin. On arrival to the ER his vital signs are remarkable for heart rate of 118 and a blood pressure of 84/63. Laboratory analysis was remarkable for white blood cell count 13.9, hemoglobin 7.8, INR 1.3, sodium 135, BUN 78, creatinine 2.64, lactic acid 2.4. Influenza A/B were negative. Chest x-ray was completed which showed possible pneumonia versus pulmonary edema. Patient was subsequently started on doxycycline, Rocephin, vancomycin IV and orally as well as Flagyl due to his recent C. diff. Arrangements were made for admission. her was seen by ID and C diff came back positive- he was changed to dificid and IV flagyl. His CXR was more consistent with fluid overliad than PNA and the remained of ABX were discontinued. He was seen by nephrology and midordrine was added to optimize blood pressure. Patient seen and examined at bedside. He is much more awake and alert today. He denies any shortness of breath continues to have some lightheadedness. He states his diarrhea is slowing down. Vital signs reviewed General: nontoxic, no distress, appears at stated age Cardiovascular: S1S2 reg, no murmur, positive posterior tibial pulse bilateral, Lungs: Rhonchi bilaterally , no accessory muscle use Abdominal: soft, nontender to palpation, no guarding, no appreciable organomegaly Ext: no gross muscle atrophy, diffuse anasarca, no contractures Neuro: CN II-XI grossly intact, no focal neuro deficits Psych: Awake, alert, more conversational Assessment/Plan: Recurrent C. diff colitis Acute kidney injury on CKD stage III, possible cardiorenal syndrome, baseline creatinine 1.3-1.5 Metabolic acidosis Acute on chronic Anemia of chronic disease related to CKD, baseline hemoglobin 8 Acute exacerbation of systolic congestive heart failure with ejection fraction 35-40% Atrial fibrillation with rapid ventricular response CAD - continue with flagyl 500 mg IVPB three times daily D # 4 -Infectious disease note reviewed: Continue with current antibiotics - Dificid 200 mg by mouth twice a day day #2 - strict I and O, daily weight -Await further nephrology recommendations -Hold , hold entresto -Eliquis 5 mg twice daily, metoprolol 25 mg 3 times daily hold for systolic blood pressure less than 90, amiodarone 400 mg daily - patient given 1 dose of metoprolol 25 mg PO this morning, now with d ecrease BP, patinet does have mild increase HR ocnsider decreasing metoprolol to 12.5 mg if cardio in agreement -Sodium bicarbonate tablets 650 mg twice daily -Await further cardiology recommendations Hypotension, suspect multifactorial -off Lasix and Aldactone - Midodrine 10 mg TID Type 2 DM, insulin dependent -Sliding-scale insulin -Levemir 10 units at night - hold -Follow blood sugars -Glipizide on hold - A1C 6.3 01/11/23 Chronic: HTN HLD Lactic acidosis, resolved Imaging: None new Data Review: Labs reviewed from today including CBC and basic metabolic profile which are remarkable for white blood cell count 11.9, hemoglobin 7.5, sodium 133, potassium 3.1, carbon dioxide 15, BUN 85, creatinine 2.81 DVT prophylaxis: eliquis Anticipated discharge date: in 24-[address]: [facility] This dictation was prepared using [employer] voice recognition software. Though every attempt is made to correct errors during dictation some may still exist. Active Medications Generic Name Dose Route Start Last Admin Trade Name Freq PRN Reason Stop Dose Admin Acetaminophen 650 mg 01/21/23 23:52 Acetaminophen Tab 325 Mg Tab PO Q4HR PRN Fever and/ or Pain Albuterol/Ipratropium 3 ml 01/22/23 10:03 01/22/23 20:06 Ipratropium-Albuterol 3 Ml Neb INHALATION 3 ml RT-Q6H PRN Administration Shortness Of Breath Albuterol/Ipratropium 3 ml 01/22/23 12:00 01/24/23 11:16 Ipratropium-Albuterol 3 Ml Neb INHALATION 3 ml RT-QID@00,06,12,18 YESSY Administration Allopurinol 100 mg 01/23/23 08:00 01/24/23 10:22 Allopurinol 100 Mg Tab PO 100 mg DAILY@0800 YESSY Administration Amiodarone HCl 400 mg 01/22/23 09:00 01/24/23 10:22 Amiodarone 200 Mg Tab PO 400 mg DAILY YESSY Administration Apixaban 5 mg 01/22/23 08:00 01/24/23 10:22 Apixaban 5 Mg Tab PO 5 mg BID@0800,1700 YESSY Administration Protocol Atorvastatin Calcium 40 mg 01/22/23 21:00 01/23/23 21:39 Atorvastatin 40 Mg Tab PO 40 mg HS@2100 YESSY Administration Clopidogrel Bisulfate 75 mg 01/22/23 08:00 01/24/23 10:23 Clopidogrel 75 Mg Tab PO 75 mg DAILY@0800 YESSY Administration Dextrose/Water 25 ml 01/22/23 12:55 Dextrose 50% Syringe 50 Ml IVP PER PROTOCOL PRN Hypoglycemia Protocol Dextrose/Water 50 ml 01/22/23 12:55 Dextrose 50% Syringe 50 Ml IVP PER PROTOCOL PRN Hypoglycemia Protocol Fidaxomicin 200 mg 01/22/23 12:00 01/24/23 10:22 Fidaxomicin 200 Mg Tablet PO 01/31/23 21:01 200 mg BID YESSY Administration Fluticasone Propionate 2 puff 01/22/23 17:00 01/24/23 08:08 Fluticasone 220 Mcg Inhaler INHALATION 2 puff RT-BID@0800,1700 YESSY Administration Metronidazole 500 mg/ IV 100 mls @ 100 mls/hr 01/22/23 08:00 01/24/23 10:21 Solution IVPB 100 mls/hr Q8HR YESSY Administration Protocol Insulin Aspart 0 unit 01/22/23 17:30 01/24/23 13:07 Insulin Aspart (Novolog) 100 Unit/Ml Vial SQ 2 unit ACHS YESSY Administration Protocol Insulin Detemir 10 unit 01/22/23 21:00 01/23/23 21:39 Insulin Detemir (Levemir) 100 Unit/Ml Syr SQ 10 unit HS@2100 YESSY Administration Metoprolol Tartrate 25 mg 01/23/23 14:00 01/24/23 06:37 Metoprolol Tartrate 25 Mg Tab PO 25 mg TID@0600,1400,2200 YESSY Administration Midodrine 10 mg 01/23/23 13:05 01/24/23 13:07 Midodrine 5 Mg Tab PO 10 mg AC-TID YESSY Administration Miscellaneous Information 1 each 01/22/23 00:07 Pneumonia Protocol Utilized 1 Each Misc PO ONCE PRN Per Protocol Oxybutynin Chloride 5 mg 01/22/23 08:00 01/24/23 10:22 Oxybutynin Xl 5 Mg Tab.Er.24 PO 5 mg DAILY@0800 YESSY Administration Pantoprazole Sodium 40 mg 01/23/23 06:00 01/24/23 06:37 Pantoprazole 40 Mg Tablet PO 40 mg DAILY@0600 YESSY Administration Risperidone 0.5 mg 01/22/23 21:00 01/23/23 21:39 Risperidone 0.5 Mg Tab PO 0.5 mg HS@2100 YESSY Administration Sertraline HCl 50 mg 01/22/23 21:00 01/23/23 21:39 Sertraline 50 Mg Tab PO 50 mg HS@2100 YESSY Administration Sodium Bicarbonate 650 mg 01/22/23 08:00 01/24/23 10:22 Sodium Bicarbonate Tab 650 Mg Tab PO 650 mg BID@0800,1700 YESSY Administration Objective - Vital Signs Vital signs: Vital Signs Temp 97.6 F 01/24/23 08:00 Pulse 113 H 01/24/23 12:00 Resp 18 01/24/23 08:00 BP 84/54 01/24/23 12:00 Pulse Ox 94 L 01/24/23 12:00 FiO2 Intake & Output 01/23/23 01/24/23 01/24/23 18:59 06:59 18:59 Intake Total 900 236 600 Output Total 600 Balance 300 236 600 Weight 102.5 kg Intake: Intake, IV Titration 600 Amount Sodium Chloride 0.9% 500 500 ml 500 ml @ 999 mls/hr IV .Q31M ONE Rx#:[id number] metroNIDAZOLE-NS PMX 500 100 mg In Saline 1 100ml.bag @ 100 mls/hr IVPB Q8HR [facility] Rx#:[id number] Oral 300 236 600 Output: Urine 600 Other: Voiding Method Indwelling Catheter Indwelling Catheter Indwelling Catheter # Bowel Movements 1 1 - Labs CBC & Chem 7: 01/24/23 09:13 01/24/23 09:13 Labs: Abnormal Lab Results - Last 24 Hours (Table) 01/23/23 01/23/23 01/24/23 Range/Units 16:11 19:59 09:13 WBC (3.8-10.6) k/uL RBC (4.30-5.90) m/uL Hgb (13.0-17.5) gm/dL Hct (39.0-53.0) % MCV (80.0-100.0) fL RDW (11.5-15.5) % Macrocytosis Sodium 133 L (137-145) mmol/L Potassium 3.1 L (3.5-5.1) mmol/L Carbon Dioxide 15 L (22-30) mmol/L BUN 85 H (9-20) mg/dL Creatinine 2.81 H (0.66-1.25) mg/dL Glucose 119 H (74-99) mg/dL POC Glucose (mg/dL) 119 H 167 H (70-110) mg/dL Calcium 7.7 L (8.4-10.2) mg/dL 01/24/23 01/24/23 Range/Units 09:13 11:44 WBC 11.9 H (3.8-10.6) k/uL RBC 2.24 L (4.30-5.90) m/uL Hgb 7.5 L (13.0-17.5) gm/dL Hct 23.9 L (39.0-53.0) % MCV 107.0 H (80.0-100.0) fL RDW 20.5 H (11.5-15.5) % Macrocytosis Marked A Sodium (137-145) mmol/L Potassium (3.5-5.1) mmol/L Carbon Dioxide (22-30) mmol/L BUN (9-20) mg/dL Creatinine (0.66-1.25) mg/dL Glucose (74-99) mg/dL POC Glucose (mg/dL) 215 H (70-110) mg/dL Calcium (8.4-10.2) mg/dL Microbiology - Last 24 Hours (Table) 01/21/23 23:02 Gram Stain - Final Foot - Left Wound Culture - Final Methicillin resist S. aureus 01/21/23 20:35 Blood Culture - Preliminary Blood 01/21/23 20:20 Blood Culture - Preliminary Blood
--- NOTE | 2023-01-24 15:39 | P.PN ---
Subjective Progress Note Date: 01/24/23 Follow-up for acute kidney injury. Documented urine output of 600 ML's. Blood pressures still low. Objective - Vital Signs Vital signs: Vital Signs Temp 97.6 F 01/24/23 08:00 Pulse 113 H 01/24/23 12:00 Resp 18 01/24/23 08:00 BP 84/54 01/24/23 12:00 Pulse Ox 94 L 01/24/23 12:00 FiO2 Intake & Output 01/23/23 01/24/23 01/24/23 18:59 06:59 18:59 Intake Total 900 236 600 Output Total 600 Balance 300 236 600 Weight 102.5 kg Intake: Intake, IV Titration 600 Amount Sodium Chloride 0.9% 500 500 ml 500 ml @ 999 mls/hr IV .Q31M ONE Rx#:[id number] metroNIDAZOLE-NS PMX 500 100 mg In Saline 1 100ml.bag @ 100 mls/hr IVPB Q8HR YESSY Rx#:[id number] Oral 300 236 600 Output: Urine 600 Other: Voiding Method Indwelling Catheter Indwelling Catheter Indwelling Catheter # Bowel Movements 1 1 - Exam No acute distress S1-S2 heard Decreased breath sounds Edema - Labs CBC & Chem 7: 01/24/23 09:13 01/24/23 09:13 Labs: Abnormal Lab Results - Last 24 Hours (Table) 01/23/23 01/23/23 01/24/23 Range/Units 16:11 19:59 09:13 WBC (3.8-10.6) k/uL RBC (4.30-5.90) m/uL Hgb (13.0-17.5) gm/dL Hct (39.0-53.0) % MCV (80.0-100.0) fL RDW (11.5-15.5) % Macrocytosis Sodium 133 L (137-145) mmol/L Potassium 3.1 L (3.5-5.1) mmol/L Carbon Dioxide 15 L (22-30) mmol/L BUN 85 H (9-20) mg/dL Creatinine 2.81 H (0.66-1.25) mg/dL Glucose 119 H (74-99) mg/dL POC Glucose (mg/dL) 119 H 167 H (70-110) mg/dL Calcium 7.7 L (8.4-10.2) mg/dL 01/24/23 01/24/23 Range/Units 09:13 11:44 WBC 11.9 H (3.8-10.6) k/uL RBC 2.24 L (4.30-5.90) m/uL Hgb 7.5 L (13.0-17.5) gm/dL Hct 23.9 L (39.0-53.0) % MCV 107.0 H (80.0-100.0) fL RDW 20.5 H (11.5-15.5) % Macrocytosis Marked A Sodium (137-145) mmol/L Potassium (3.5-5.1) mmol/L Carbon Dioxide (22-30) mmol/L BUN (9-20) mg/dL Creatinine (0.66-1.25) mg/dL Glucose (74-99) mg/dL POC Glucose (mg/dL) 215 H (70-110) mg/dL Calcium (8.4-10.2) mg/dL Microbiology - Last 24 Hours (Table) 01/21/23 23:02 Gram Stain - Final Foot - Left Wound Culture - Final Methicillin resist S. aureus 01/21/23 20:35 Blood Culture - Preliminary Blood 01/21/23 20:20 Blood Culture - Preliminary Blood Assessment and Plan Assessment: #1 acute kidney injury secondary to hemodynamic ATN with low blood pressures. -Baseline creatinine 1.1-1.3 MG per DL. -Urine analysis 2+ protein, leukocyte esterase. -And renal ultrasound no hydronephrosis. #2 chronic kidney disease stage III suspected diabetic kidney disease. Baseline 1.1-1.3 MG per DL. #3 CHF with systolic dysfunction EF of 35% #4 volume overload #5 left renal lesion, on renal ultrasound #6 hypotension #7 C. diff Plan: #1 renal function high but stable. With hypotension and decreased EF, treat like cardiogenic shock with inotropic support. #2 on midodrine for hemodynamic support #3 discussed plan of care with the primary team. Tried to reach cardiology for inotropic support, but no callback received.
[2023-01-24 16:39] LABS: Glucose,Whole Blood 198 mg/dL (70-110)
[2023-01-24 20:13] LABS: Glucose,Whole Blood 269 mg/dL (70-110)
[2023-01-24] MEDS: INSULIN DETEMIR (LEVEMIR) 100 UNIT/ML SYR SQ SCH (21:31)
[2023-01-24] MEDS: ATORVASTATIN 40 MG TAB PO SCH (21:32)
[2023-01-24] MEDS: SERTRALINE 50 MG TAB PO SCH (21:32)
[2023-01-24] MEDS: risperiDONE 0.5 MG TAB PO SCH (21:32)
[2023-01-25] MEDS: IPRATROPIUM-ALBUTEROL 3 ML NEB INHALATION SCH ×5 (03:07→21:06)
[2023-01-25 06:14] LABS: Glucose,Whole Blood 133 mg/dL (70-110)
[2023-01-25] MEDS: INSULIN ASPART (NovoLOG) 100 UNIT/ML VIAL SQ SCH ×4 (06:16→21:26)
[2023-01-25] MEDS: PANTOPRAZOLE 40 MG TABLET PO SCH (06:25)
[2023-01-25] MEDS: METOPROLOL TARTRATE 25 MG TAB PO SCH ×3 (06:25→21:26)
[2023-01-25] MEDS: MIDODRINE 5 MG TAB PO SCH ×3 (06:25→17:40)
[2023-01-25] MEDS: FLUTICASONE 220 MCG INHALER INHALATION SCH ×2 (07:50→21:06)
[2023-01-25] MEDS: metroNIDAZOLE-NS PMX 500 MG in SALINE 1 100ML.BAG IVPB SCH ×2 (07:56→15:52)
[2023-01-25] MEDS: SODIUM BICARBONATE TAB 650 MG TAB PO SCH ×3 (07:57→21:26)
[2023-01-25] MEDS: CLOPIDOGREL 75 MG TAB PO SCH (07:57)
[2023-01-25] MEDS: OXYBUTYNIN XL 5 MG TAB.ER.24 PO SCH (07:57)
[2023-01-25] MEDS: APIXABAN 5 MG TAB PO SCH ×2 (07:57→15:52)
[2023-01-25] MEDS: AMIODARONE 200 MG TAB PO SCH (07:57)
[2023-01-25] MEDS: allopurinoL 100 MG TAB PO SCH (07:57)
[2023-01-25 08:16] LABS: African American GFR (CKD) 28 (>60 ml/min/1.73 sqM); Non-African American GFR(CKD) 25 (>60 ml/min/1.73 sqM)
[2023-01-25] MEDS: FIDAXOMICIN 200 MG TABLET PO SCH ×2 (09:18→21:26)
[2023-01-25 09:30] LABS: Anisocytosis Moderate; HGB 7.6 gm/dL (13.0-17.5); Hypochromasia Marked; MCHC 30.6 g/dL (31.0-37.0); MCV 107.8 fL (80.0-100.0); Macrocytosis Marked; Mean Platelet Volume 7.9; Platelet Count 294 k/uL (150-450); Poikilocytosis Moderate; RBC 2.32 m/uL (4.30-5.90); RDW 20.5 % (11.5-15.5); WBC 11.6 k/uL (3.8-10.6)
[2023-01-25 09:50] LABS: African American GFR (CKD) 29 (>60 ml/min/1.73 sqM); Anion Gap 13 mmol/L; Blood Urea Nitrogen 80 mg/dL (9-20); Calcium 7.8 mg/dL (8.4-10.2); Carbon Dioxide 15 mmol/L (22-30); Chloride 106 mmol/L (98-107); Glucose 107 mg/dL (74-99); Non-African American GFR(CKD) 25 (>60 ml/min/1.73 sqM); Potassium 3.4 mmol/L (3.5-5.1); Sodium 134 mmol/L (137-145)
--- NOTE | 2023-01-25 11:06 | P.PN ---
Subjective Progress Note Date: 01/25/23 Patient is a 72-year-old male who presents to the hospital with persistent hypotension. Patient also has a history of A. fib with RVR. Oral amiodarone was started yesterday. Patient appears to be tolerating this well. Heart rates remain slightly elevated in the low 100s. Despite interventions patient's blood pressure remains extremely low. Patient was recently started on midodrine and a fluid bolus was ordered. Due to the patient's significant history of congestive heart failure, would recommend caution with IV fluids, even though it does appear the patient needs them. Patient today reports that he is feeling okay. He is denying chest pain and shortness of breath. Patient has mild swelling in the bilateral lower extremities at this time. VITALS: Temp 97.8, pulse 102, blood pressure 73/51, O2 saturation 100% on 2 L TELEMETRY: A. fib with RVR LABS: White count 10.1, hemoglobin 7.1, platelets 277, sodium 131, potassium 3.2, BUN 82, creatinine 3, hemoglobin A1c 5.9 01/25 Patient is seen today on the cardiac stepdown unit. Patient states that he is still having diarrhea and appears to be about 3 times per day. He is on midodrine 10 mg 3 times daily, blood pressure is soft 93/66, heart rate 106, pulse ox 99% on 2 L. Patient denies having any chest pain, no shortness of breath, no lightheadedness or dizziness. GENERAL: Well-appearing, well-nourished and in no acute distress. NECK: Supple without JVD or thyromegaly. LUNGS: Breath sounds diminished bilaterally. Respiration equal and unlabored. No wheezes, rales or rhonchi. HEART: Regular rate and rhythm without murmurs, rubs or gallops. S1 and S2 heard. EXTREMITIES: Normal range of motion, mild bilateral peripheral edema. No clubbing or cyanosis. Peripheral pulses intact and strong. IMPRESSION: 1. Sepsis secondary to recurrent C. diff 2. Hypertension 3. Acute on chronic kidney disease 4. Persistent atrial fibrillation with rapid ventricular response 5. Acute on chronic congestive heart failure with reduced EF 6. Ischemic cardiomyopathy 7. Coronary artery disease with previous stenting 8. Ventricular tachycardia with previous AICD implantation 9. Hypertension 10. Hyperlipidemia 11. Diabetes PLAN: Recommend discontinuing midodrine, as this will likely not help in anyway due to the patient's significant comorbid conditions. If he is overly dehydrated, midodrine will have very little effect. Overall agree with IV fluid recommendations, however this needs to be done cautiously as to not fluid overload the patient. Overall recommendation is DO NOT RESUSCITATE CODE STATUS, with possible hospice discussion. Medical treatment has been maximized at this time. Cardiology will sign off this case and follow on an as-needed basis. Please reconsult for any new concerns. Nurse practitioner note has been reviewed, I agree with the documented findings and plan of care. Patient was seen and examined. Objective - Vital Signs Vital signs: Vital Signs Temp 98.1 F 01/25/23 07:55 Pulse 106 H 01/25/23 07:55 Resp 18 01/25/23 07:55 BP 93/66 01/25/23 07:55 Pulse Ox 97 01/25/23 07:55 FiO2 Intake & Output 01/24/23 01/25/23 01/25/23 18:59 06:59 18:59 Intake Total 960 180 Output Total 1000 Balance 960 -1000 180 Weight 104.5 kg Intake: Oral 960 180 Output: Urine 1000 Other: Voiding Method Indwelling Catheter Indwelling Catheter Indwelling Catheter # Bowel Movements 1 - Labs CBC & Chem 7: 01/25/23 07:21 01/25/23 07:21 Labs: Abnormal Lab Results - Last 24 Hours (Table) 01/24/23 01/24/23 01/24/23 Range/Units 09:13 09:13 11:44 WBC 11.9 H (3.8-10.6) k/uL RBC 2.24 L (4.30-5.90) m/uL Hgb 7.5 L (13.0-17.5) gm/dL Hct 23.9 L (39.0-53.0) % MCV 107.0 H (80.0-100.0) fL RDW 20.5 H (11.5-15.5) % Macrocytosis Marked A Sodium 133 L (137-145) mmol/L Potassium 3.1 L (3.5-5.1) mmol/L Carbon Dioxide 15 L (22-30) mmol/L BUN 85 H (9-20) mg/dL Creatinine 2.81 H (0.66-1.25) mg/dL Glucose 119 H (74-99) mg/dL POC Glucose (mg/dL) 215 H (70-110) mg/dL Calcium 7.7 L (8.4-10.2) mg/dL 01/24/23 01/24/23 01/25/23 Range/Units 16:37 20:12 06:12 WBC (3.8-10.6) k/uL RBC (4.30-5.90) m/uL Hgb (13.0-17.5) gm/dL Hct (39.0-53.0) % MCV (80.0-100.0) fL RDW (11.5-15.5) % Macrocytosis Sodium (137-145) mmol/L Potassium (3.5-5.1) mmol/L Carbon Dioxide (22-30) mmol/L BUN (9-20) mg/dL Creatinine (0.66-1.25) mg/dL Glucose (74-99) mg/dL POC Glucose (mg/dL) 198 H 269 H 133 H (70-110) mg/dL Calcium (8.4-10.2) mg/dL 01/25/23 Range/Units 07:21 WBC (3.8-10.6) k/uL RBC (4.30-5.90) m/uL Hgb (13.0-17.5) gm/dL Hct (39.0-53.0) % MCV (80.0-100.0) fL RDW (11.5-15.5) % Macrocytosis Sodium (137-145) mmol/L Potassium (3.5-5.1) mmol/L Carbon Dioxide (22-30) mmol/L BUN (9-20) mg/dL Creatinine 2.51 H (0.66-1.25) mg/dL Glucose (74-99) mg/dL POC Glucose (mg/dL) (70-110) mg/dL Calcium (8.4-10.2) mg/dL Microbiology - Last 24 Hours (Table) 01/21/23 20:35 Blood Culture - Preliminary Blood 01/21/23 20:20 Blood Culture - Preliminary Blood 01/22/23 10:21 Stool Culture - Preliminary Stool 01/21/23 23:02 Gram Stain - Final Foot - Left Wound Culture - Final Methicillin resist S. aureus
[2023-01-25 12:00] LABS: Glucose,Whole Blood 364 mg/dL (70-110)
--- NOTE | 2023-01-25 12:06 | P.PN ---
Subjective Progress Note Date: 01/25/23 Principal diagnosis: Reason for follow-up is sepsis and severe C. diff colitis Patient is a 72-year-old male with past medical history significant for atrial fibrillation coronary disease heart failure diabetes mellitus hypertension hyperlipidemia he was recently admitted to the hospital and the patient did have a Proteus mirabilis bacteremia source was likely abdominal treated with a course of IV followed by oral antibiotic therapy subsequently readmitted to the hospital and the patient has been treated for C. difficile colitis, patient of presenting back to the hospital for evaluation of hypotension patient was noticed to have elevated white count significant diarrhea and stool for C. diff given a positive On today's evaluation that is 01/25/2023, the patient remains to be afebrile, the patient is breathing comfortably on room air and denies any shortness of breath, the patient denies chest pain or cough , patient denies abdominal pain, no nausea/vomiting and diarrhea has slowed down Patient white count is 11.6, creatinine is 2.47 stool for C. diff positive Objective - Vital Signs Vital signs: Vital Signs Temp 98.1 F 01/25/23 07:55 Pulse 106 H 01/25/23 07:55 Resp 18 01/25/23 07:55 BP 93/66 01/25/23 07:55 Pulse Ox 97 01/25/23 07:55 FiO2 Intake & Output 01/24/23 01/25/23 01/25/23 18:59 06:59 18:59 Intake Total 960 180 Output Total 1000 Balance 960 -1000 180 Weight 104.5 kg Intake: Oral 960 180 Output: Urine 1000 Other: Voiding Method Indwelling Catheter Indwelling Catheter Indwelling Catheter # Bowel Movements 1 - Exam GENERAL DESCRIPTION: An elderly male lying in bed in no distress RESPIRATORY SYSTEM: Unlabored breathing , decreased breath sound at the bases HEART: S1 S2 regular rate and rhythm , ABDOMEN: Soft , no tenderness EXTREMITIES: No edema feet - Labs CBC & Chem 7: 01/25/23 07:21 01/25/23 07:21 Labs: Abnormal Lab Results - Last 24 Hours (Table) 01/24/23 01/24/23 01/24/23 Range/Units 09:13 11:44 16:37 WBC (3.8-10.6) k/uL RBC (4.30-5.90) m/uL Hgb (13.0-17.5) gm/dL Hct (39.0-53.0) % MCV (80.0-100.0) fL MCHC (31.0-37.0) g/dL RDW (11.5-15.5) % Macrocytosis Sodium 133 L (137-145) mmol/L Potassium 3.1 L (3.5-5.1) mmol/L Carbon Dioxide 15 L (22-30) mmol/L BUN 85 H (9-20) mg/dL Creatinine 2.81 H (0.66-1.25) mg/dL Glucose 119 H (74-99) mg/dL POC Glucose (mg/dL) 215 H 198 H (70-110) mg/dL Calcium 7.7 L (8.4-10.2) mg/dL 01/24/23 01/25/23 01/25/23 Range/Units 20:12 06:12 07:21 WBC (3.8-10.6) k/uL RBC (4.30-5.90) m/uL Hgb (13.0-17.5) gm/dL Hct (39.0-53.0) % MCV (80.0-100.0) fL MCHC (31.0-37.0) g/dL RDW (11.5-15.5) % Macrocytosis Sodium (137-145) mmol/L Potassium (3.5-5.1) mmol/L Carbon Dioxide (22-30) mmol/L BUN (9-20) mg/dL Creatinine 2.51 H (0.66-1.25) mg/dL Glucose (74-99) mg/dL POC Glucose (mg/dL) 269 H 133 H (70-110) mg/dL Calcium (8.4-10.2) mg/dL 01/25/23 01/25/23 Range/Units 07:21 07:21 WBC 11.6 H (3.8-10.6) k/uL RBC 2.32 L (4.30-5.90) m/uL Hgb 7.6 L (13.0-17.5) gm/dL Hct 25.0 L (39.0-53.0) % MCV 107.8 H (80.0-100.0) fL MCHC 30.6 L (31.0-37.0) g/dL RDW 20.5 H (11.5-15.5) % Macrocytosis Marked A Sodium 134 L (137-145) mmol/L Potassium 3.4 L (3.5-5.1) mmol/L Carbon Dioxide 15 L (22-30) mmol/L BUN 80 H (9-20) mg/dL Creatinine 2.47 H (0.66-1.25) mg/dL Glucose 107 H (74-99) mg/dL POC Glucose (mg/dL) (70-110) mg/dL Calcium 7.8 L (8.4-10.2) mg/dL Microbiology - Last 24 Hours (Table) 01/21/23 20:35 Blood Culture - Preliminary Blood 01/21/23 20:20 Blood Culture - Preliminary Blood 01/22/23 10:21 Stool Culture - Preliminary Stool 01/21/23 23:02 Gram Stain - Final Foot - Left Wound Culture - Final Methicillin resist S. aureus Assessment and Plan (1) C. difficile colitis Current Visit: Yes Status: Acute Code(s): A04.72 - ENTEROCOLITIS D/T CLOSTRIDIUM DIFFICILE, NOT SPCF RECUR SNOMED Code(s): 098193285 (2) Sepsis Current Visit: Yes Status: Acute Code(s): A41.9 - SEPSIS, UNSPECIFIED ORGANISM SNOMED Code(s): 66977450 Plan: 1patient presented to hospital with hypotension weakness in this patient who did have a elevated white count diarrhea source is likely C. difficile colitis that has failed outpatient oral vancomycin therapy clinic suspicious low for pneumonia in this patient with no significant cough or sputum production, patient stool for C. diff came back positive 2-patient is slowly clinically improving and we will continue with the current treatment of Dificid and IV Flagyl and monitor clinical course closely Dictation was produced using [employer] dictation software. please excuse any grammatical, word or spelling errors. Time with Patient: Less than 30
--- NOTE | 2023-01-25 12:15 | P.PN ---
Subjective Patient is seen for follow-up for acute kidney injury. Renal function slightly improved from yesterday. Has an indwelling Jacobs catheter with 24-hour urine output documented at 1 L. Objective - Vital Signs Vital signs: Vital Signs Temp 98.1 F 01/25/23 12:00 Pulse 100 01/25/23 12:04 Resp 18 01/25/23 12:00 BP 93/58 01/25/23 12:00 Pulse Ox 98 01/25/23 12:00 FiO2 Intake & Output 01/24/23 01/25/23 01/25/23 18:59 06:59 18:59 Intake Total 960 180 Output Total 1000 Balance 960 -1000 180 Weight 104.5 kg Intake: Oral 960 180 Output: Urine 1000 Other: Voiding Method Indwelling Catheter Indwelling Catheter Indwelling Catheter # Bowel Movements 1 - Exam Patient is awake, comfortable, no acute distress Examination of the heart S1 and S2 Examination the lungs decreased breath sounds at the bases Examination of lower extremity shows edema 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 - Labs CBC & Chem 7: 01/25/23 07:21 01/25/23 07:21 Labs: Abnormal Lab Results - Last 24 Hours (Table) 01/24/23 01/24/23 01/25/23 Range/Units 16:37 20:12 06:12 WBC (3.8-10.6) k/uL RBC (4.30-5.90) m/uL Hgb (13.0-17.5) gm/dL Hct (39.0-53.0) % MCV (80.0-100.0) fL MCHC (31.0-37.0) g/dL RDW (11.5-15.5) % Macrocytosis Sodium (137-145) mmol/L Potassium (3.5-5.1) mmol/L Carbon Dioxide (22-30) mmol/L BUN (9-20) mg/dL Creatinine (0.66-1.25) mg/dL Glucose (74-99) mg/dL POC Glucose (mg/dL) 198 H 269 H 133 H (70-110) mg/dL Calcium (8.4-10.2) mg/dL 01/25/23 01/25/23 01/25/23 Range/Units 07:21 07:21 07:21 WBC 11.6 H (3.8-10.6) k/uL RBC 2.32 L (4.30-5.90) m/uL Hgb 7.6 L (13.0-17.5) gm/dL Hct 25.0 L (39.0-53.0) % MCV 107.8 H (80.0-100.0) fL MCHC 30.6 L (31.0-37.0) g/dL RDW 20.5 H (11.5-15.5) % Macrocytosis Marked A Sodium 134 L (137-145) mmol/L Potassium 3.4 L (3.5-5.1) mmol/L Carbon Dioxide 15 L (22-30) mmol/L BUN 80 H (9-20) mg/dL Creatinine 2.51 H 2.47 H (0.66-1.25) mg/dL Glucose 107 H (74-99) mg/dL POC Glucose (mg/dL) (70-110) mg/dL Calcium 7.8 L (8.4-10.2) mg/dL 01/25/23 Range/Units 11:55 WBC (3.8-10.6) k/uL RBC (4.30-5.90) m/uL Hgb (13.0-17.5) gm/dL Hct (39.0-53.0) % MCV (80.0-100.0) fL MCHC (31.0-37.0) g/dL RDW (11.5-15.5) % Macrocytosis Sodium (137-145) mmol/L Potassium (3.5-5.1) mmol/L Carbon Dioxide (22-30) mmol/L BUN (9-20) mg/dL Creatinine (0.66-1.25) mg/dL Glucose (74-99) mg/dL POC Glucose (mg/dL) 364 H (70-110) mg/dL Calcium (8.4-10.2) mg/dL Microbiology - Last 24 Hours (Table) 01/21/23 20:35 Blood Culture - Preliminary Blood 01/21/23 20:20 Blood Culture - Preliminary Blood 01/22/23 10:21 Stool Culture - Preliminary Stool 01/21/23 23:02 Gram Stain - Final Foot - Left Wound Culture - Final Methicillin resist S. aureus Assessment and Plan Assessment: 1. Acute kidney injury secondary to ATN with low blood pressure. Nonoliguric. Currently slightly improved. Ultrasound shows no evidence of obstruction. UA shows 2+ protein. 2. Chronic kidney disease stage III a with baseline creatinine 1.1-1.3 mg/dL secondary to diabetic kidney disease 3. CHF with systolic dysfunction, ejection fraction 35% 4. C. diff colitis 5. Metabolic acidosis maintained on sodium bicarb, etiology is diarrhea and acute kidney injury Plan: Increase sodium bicarb to 3 times a day Continue with midodrine Continue to encourage increase oral intake.
--- NOTE | 2023-01-25 15:46 | P.PN ---
Subjective Progress Note Date: 01/25/23 Patient is a 72-year-old male with systolic CHF, A. fib on Eliquis, CAD status post stents, COPD, type 2 diabetes, and hypertension who presented from rehab with hypotension. He was recently hospitalized here form 12/27/22 through 01/06/23 due to C. diff colitis with sepsis. It was discharged in [place] on oral vancomycin. On arrival to the ER his vital signs are remarkable for heart rate of 118 and a blood pressure of 84/63. Laboratory analysis was remarkable for white blood cell count 13.9, hemoglobin 7.8, INR 1.3, sodium 135, BUN 78, creatinine 2.64, lactic acid 2.4. Influenza A/B were negative. Chest x-ray was completed which showed possible pneumonia versus pulmonary edema. Patient was subsequently started on doxycycline, Rocephin, vancomycin IV and orally as well as Flagyl due to his recent C. diff. Arrangements were made for admission. her was seen by ID and C diff came back positive- he was changed to dificid and IV flagyl. His CXR was more consistent with fluid overliad than PNA and the remained of ABX were discontinued. He was seen by nephrology and midordrine was added to optimize blood pressure. 01/25 Patient seen and examined at bedside. He is much more awake and alert today. He denies any shortness of breath or chest pain. He states his diarrhea is slowing down. CBC WBC 11.6 Hg 7.6. BMP Na 134, K 3.4, bicarb 15, BUN 80, Cr 2.47, glucose 107, Ca 7.8. Vital signs reviewed General: nontoxic, no distress, appears at stated age Cardiovascular: S1S2 reg, no murmur Lungs: Rhonchi bilaterally , no accessory muscle use Abdominal: soft, nontender to palpation, no guarding, no appreciable organomegaly Ext: no gross muscle atrophy, diffuse anasarca, no contractures Neuro: no focal neuro deficits Psych: Awake, alert, more conversational Recurrent C. diff colitis Acute kidney injury on CKD stage III, possible cardiorenal syndrome, baseline creatinine 1.3-1.5 Metabolic acidosis Acute on chronic Anemia of chronic disease related to CKD, baseline hemoglobin 8 Acute exacerbation of systolic congestive heart failure with ejection fraction 35-40% Atrial fibrillation with rapid ventricular response CAD Hypotension, suspect multifactorial Type 2 DM, insulin dependent Based on my assessment of this patient, this patient meets a moderate complexity level of care. Patient has an acute diagnosis of sepsis related to C.diff colitis that poses a threat to life or bodily function. Recurrent C. diff colitis: Flagyl 500 mg IVPB three times daily D # 5. Dificid 200 mg by mouth twice a day D # 3 Acute kidney injury on CKD stage III, possible cardiorenal syndrome, baseline creatinine 1.3-1.5 Metabolic acidosis: Sodium bicarbonate 650 mg PO TID (increased per Nephro). Acute on chronic Anemia of chronic disease related to CKD, baseline hemoglobin 8 Acute exacerbation of systolic congestive heart failure with ejection fraction 35-40% Atrial fibrillation with rapid ventricular response: Metoprolol 25 mg PO TID. Amiodarone 400 mg PO QD. Eliquis 5 mg PO BID. CAD: Plavix 75 mg PO QD. Lipitor 40 mg PO QD. Hypotension: Midodrine 10 mg PO TID. Type 2 DM, insulin dependent: ISS. Levemir 10 units QHS. Hypoglycemic precautions. CODE STATUS: FULL CODE DVT Prophylaxis: Eliquis GI Prophylaxis: Protonix PO Designated medical POA if patient is not able to make medical decisions for themselves: Guardian I have reviewed the following eco industrial development consultant notes: Nephro, ID, Cardio note. I have reviewed the results of the following tests: CBC, BMP I have ordered the following tests: CBC, BMP I have discussed the care of this patient with the following independent hi storian: Discussed with RN I have independently interpreted the following test below: I have discussed the management of this patient with the following physician: Objective - Vital Signs Vital signs: Vital Signs Temp 98.1 F 01/25/23 12:00 Pulse 92 01/25/23 15:30 Resp 18 01/25/23 12:00 BP 93/58 01/25/23 12:00 Pulse Ox 98 01/25/23 12:00 FiO2 Intake & Output 01/24/23 01/25/23 01/25/23 18:59 06:59 18:59 Intake Total 960 298 Output Total 1000 301 Balance 960 -1000 -3 Weight 104.5 kg Intake: Oral 960 298 Output: Urine 1000 300 Stool 1 Other: Voiding Method Indwelling Catheter Indwelling Catheter Indwelling Catheter # Bowel Movements 1 - Labs CBC & Chem 7: 01/25/23 07:21 01/25/23 07:21 Labs: Abnormal Lab Results - Last 24 Hours (Table) 01/24/23 01/24/23 01/25/23 Range/Units 16:37 20:12 06:12 WBC (3.8-10.6) k/uL RBC (4.30-5.90) m/uL Hgb (13.0-17.5) gm/dL Hct (39.0-53.0) % MCV (80.0-100.0) fL MCHC (31.0-37.0) g/dL RDW (11.5-15.5) % Macrocytosis Sodium (137-145) mmol/L Potassium (3.5-5.1) mmol/L Carbon Dioxide (22-30) mmol/L BUN (9-20) mg/dL Creatinine (0.66-1.25) mg/dL Glucose (74-99) mg/dL POC Glucose (mg/dL) 198 H 269 H 133 H (70-110) mg/dL Calcium (8.4-10.2) mg/dL 01/25/23 01/25/23 01/25/23 Range/Units 07:21 07:21 07:21 WBC 11.6 H (3.8-10.6) k/uL RBC 2.32 L (4.30-5.90) m/uL Hgb 7.6 L (13.0-17.5) gm/dL Hct 25.0 L (39.0-53.0) % MCV 107.8 H (80.0-100.0) fL MCHC 30.6 L (31.0-37.0) g/dL RDW 20.5 H (11.5-15.5) % Macrocytosis Marked A Sodium 134 L (137-145) mmol/L Potassium 3.4 L (3.5-5.1) mmol/L Carbon Dioxide 15 L (22-30) mmol/L BUN 80 H (9-20) mg/dL Creatinine 2.51 H 2.47 H (0.66-1.25) mg/dL Glucose 107 H (74-99) mg/dL POC Glucose (mg/dL) (70-110) mg/dL Calcium 7.8 L (8.4-10.2) mg/dL 01/25/23 Range/Units 11:55 WBC (3.8-10.6) k/uL RBC (4.30-5.90) m/uL Hgb (13.0-17.5) gm/dL Hct (39.0-53.0) % MCV (80.0-100.0) fL MCHC (31.0-37.0) g/dL RDW (11.5-15.5) % Macrocytosis Sodium (137-145) mmol/L Potassium (3.5-5.1) mmol/L Carbon Dioxide (22-30) mmol/L BUN (9-20) mg/dL Creatinine (0.66-1.25) mg/dL Glucose (74-99) mg/dL POC Glucose (mg/dL) 364 H (70-110) mg/dL Calcium (8.4-10.2) mg/dL Microbiology - Last 24 Hours (Table) 01/21/23 20:35 Blood Culture - Preliminary Blood 01/21/23 20:20 Blood Culture - Preliminary Blood 01/22/23 10:21 Stool Culture - Preliminary Stool
[2023-01-25 17:13] LABS: Glucose,Whole Blood 443 mg/dL (70-110)
[2023-01-25 17:13] LABS: Glucose,Whole Blood 227 mg/dL (70-110)
[2023-01-25 21:16] LABS: Glucose,Whole Blood 154 mg/dL (70-110)
[2023-01-25] MEDS: INSULIN DETEMIR (LEVEMIR) 100 UNIT/ML SYR SQ SCH (21:26)
[2023-01-25] MEDS: SERTRALINE 50 MG TAB PO SCH (21:26)
[2023-01-25] MEDS: ATORVASTATIN 40 MG TAB PO SCH (21:26)
[2023-01-25] MEDS: risperiDONE 0.5 MG TAB PO SCH (21:26)
[2023-01-26] MEDS: metroNIDAZOLE-NS PMX 500 MG in SALINE 1 100ML.BAG IVPB SCH ×4 (00:38→23:29)
[2023-01-26 05:19] LABS: Glucose,Whole Blood 153 mg/dL (70-110)
[2023-01-26] MEDS: METOPROLOL TARTRATE 25 MG TAB PO SCH ×3 (05:28→20:58)
[2023-01-26] MEDS: INSULIN ASPART (NovoLOG) 100 UNIT/ML VIAL SQ SCH ×4 (05:28→20:59)
[2023-01-26] MEDS: PANTOPRAZOLE 40 MG TABLET PO SCH (05:28)
[2023-01-26] MEDS: MIDODRINE 5 MG TAB PO SCH ×3 (05:29→16:14)
[2023-01-26] MEDS: FLUTICASONE 220 MCG INHALER INHALATION SCH ×2 (08:07→19:58)
[2023-01-26] MEDS: IPRATROPIUM-ALBUTEROL 3 ML NEB INHALATION SCH ×4 (08:07→19:58)
[2023-01-26] MEDS ORDERED: Potassium Replacement Protocol 1 EACH MISC MISCELLANE PRN (08:13)
[2023-01-26 08:38] LABS: Anisocytosis Moderate; HCT 27.7 % (39.0-53.0); HGB 8.4 gm/dL (13.0-17.5); Hypochromasia Marked; MCH 32.4 pg (25.0-35.0); MCHC 30.3 g/dL (31.0-37.0); Macrocytosis Marked; Mean Platelet Volume 7.4; Platelet Count 406 k/uL (150-450); Poikilocytosis Moderate; RBC 2.59 m/uL (4.30-5.90); RDW 20.4 % (11.5-15.5); WBC 15.2 k/uL (3.8-10.6)
[2023-01-26 08:50] LABS: African American GFR (CKD) 37 (>60 ml/min/1.73 sqM); Anion Gap 12 mmol/L; Blood Urea Nitrogen 73 mg/dL (9-20); Calcium 7.8 mg/dL (8.4-10.2); Carbon Dioxide 17 mmol/L (22-30); Chloride 107 mmol/L (98-107); Glucose 150 mg/dL (74-99); Non-African American GFR(CKD) 32 (>60 ml/min/1.73 sqM); Potassium 3.2 mmol/L (3.5-5.1); Sodium 136 mmol/L (137-145)
[2023-01-26] MEDS: AMIODARONE 200 MG TAB PO SCH (08:58)
[2023-01-26] MEDS: OXYBUTYNIN XL 5 MG TAB.ER.24 PO SCH (08:58)
[2023-01-26] MEDS: SODIUM BICARBONATE TAB 650 MG TAB PO SCH ×3 (08:58→20:58)
[2023-01-26] MEDS: FIDAXOMICIN 200 MG TABLET PO SCH ×2 (08:59→20:58)
[2023-01-26] MEDS: CLOPIDOGREL 75 MG TAB PO SCH (08:59)
[2023-01-26] MEDS: APIXABAN 5 MG TAB PO SCH ×2 (08:59→16:14)
[2023-01-26] MEDS: allopurinoL 100 MG TAB PO SCH (08:59)
[2023-01-26] MEDS ORDERED: POTASSIUM CHLORIDE ER 20 MEQ TAB.ER PO STA (09:38)
--- NOTE | 2023-01-26 11:04 | P.PN ---
Subjective Progress Note Date: 01/26/23 Patient is a 72-year-old male with systolic CHF, A. fib on Eliquis, CAD status post stents, COPD, type 2 diabetes, and hypertension who presented from rehab with hypotension. He was recently hospitalized here form 12/27/22 through 01/06/23 due to C. diff colitis with sepsis. It was discharged in [place] on oral vancomycin. On arrival to the ER his vital signs are remarkable for heart rate of 118 and a blood pressure of 84/63. Laboratory analysis was remarkable for white blood cell count 13.9, hemoglobin 7.8, INR 1.3, sodium 135, BUN 78, creatinine 2.64, lactic acid 2.4. Influenza A/B were negative. Chest x-ray was completed which showed possible pneumonia versus pulmonary edema. Patient was subsequently started on doxycycline, Rocephin, vancomycin IV and orally as well as Flagyl due to his recent C. diff. Arrangements were made for admission. her was seen by ID and C diff came back positive- he was changed to dificid and IV flagyl. His CXR was more consistent with fluid overliad than PNA and the remained of ABX were discontinued. He was seen by nephrology and midordrine was added to optimize blood pressure. 01/25 Patient seen and examined at bedside. He is much more awake and alert today. He denies any shortness of breath or chest pain. He states his diarrhea is slowing down. CBC WBC 11.6 Hg 7.6. BMP Na 134, K 3.4, bicarb 15, BUN 80, Cr 2.47, glucose 107, Ca 7.8. 01/26 Patient was seen and examined. CBC WBC 15.2 Hg 8.4. BMP Na 136, K 3.2, bicarb 17, BUN 73, Cr 2.01, glu 150, Ca 7.8. Cardiology recommends discontinuing Midodrine and cautious gentle IV hydration if needed. Plans to discuss with guardian regarding making the patient NO CODE. He is being treated for C. diff with Flagyl and Dificid. Vital signs reviewed General: nontoxic, no distress, appears at stated age Cardiovascular: S1S2 reg, no murmur Lungs: Rhonchi bilaterally , no accessory muscle use Abdominal: soft, nontender to palpation, no guarding, no appreciable organomegaly Ext: no gross muscle atrophy, diffuse anasarca, no contractures Neuro: no focal neuro deficits Psych: Awake, alert, more conversational Sepsis related to recurrent C. diff colitis Acute kidney injury on CKD stage III Metabolic acidosis Hypokalemia Acute on chronic anemia of chronic disease related to CKD, baseline hemoglobin 8 Acute exacerbation of systolic congestive heart failure with ejection fraction 35-40% Atrial fibrillation with rapid ventricular response CAD Hypotension Type 2 DM, insulin dependent Resolved: Lactic acidosis Based on my assessment of this patient, this patient meets a moderate complexity level of care. Patient has an acute diagnosis of sepsis related to C.diff colitis that poses a threat to life or bodily function. Sepsis related to recurrent C. diff colitis: Flagyl 500 mg IVPB three times daily D #6. Dificid 200 mg by mouth twice a day D #4 Acute kidney injury on CKD stage III: Possible cardiorenal syndrome. Baseline creatinine 1.3-1.5. Metabolic acidosis: Sodium bicarbonate 650 mg PO TID. Hypokalemia: Replace via protocol. Acute on chronic anemia of chronic disease related to CKD, baseline hemoglobin 8 Acute exacerbation of systolic congestive heart failure with ejection fraction 35-40% Atrial fibrillation with rapid ventricular response: Metoprolol 25 mg PO TID. Amiodarone 400 mg PO QD. Eliquis 5 mg PO BID. CAD: Plavix 75 mg PO QD. Lipitor 40 mg PO QD. Hypotension: Midodrine 10 mg PO TID. Type 2 DM, insulin dependent: ISS. Levemir 10 units QHS. Hypoglycemic preca utions. CODE STATUS: FULL CODE DVT Prophylaxis: Eliquis GI Prophylaxis: Protonix PO Designated medical POA if patient is not able to make medical decisions for themselves: Guardian I have reviewed the following senior application security consultant notes: Nephro, ID, Cardio note. I have reviewed the results of the following tests: CBC, BMP I have ordered the following tests: CBC, BMP I have discussed the care of this patient with the following independent historian: I have independently interpreted the following test below: I have discussed the management of this patient with the following physician: Objective - Vital Signs Vital signs: Vital Signs Temp 97.9 F 01/26/23 04:00 Pulse 99 01/26/23 04:00 Resp 22 01/26/23 04:00 BP 136/77 01/26/23 05:27 Pulse Ox 95 01/26/23 04:00 FiO2 Intake & Output 01/25/23 01/26/23 01/26/23 18:59 06:59 18:59 Intake Total 478 Output Total 1301 400 Balance -823 -400 Weight 105 kg Intake: Oral 478 Output: Urine 1300 400 Stool 1 Other: Voiding Method Indwelling Catheter Indwelling Catheter - Labs CBC & Chem 7: 01/26/23 07:55 01/26/23 07:55 Labs: Abnormal Lab Results - Last 24 Hours (Table) 01/25/23 01/25/23 01/25/23 Range/Units 07:21 07:21 07:21 WBC 11.6 H (3.8-10.6) k/uL RBC 2.32 L (4.30-5.90) m/uL Hgb 7.6 L (13.0-17.5) gm/dL Hct 25.0 L (39.0-53.0) % MCV 107.8 H (80.0-100.0) fL MCHC 30.6 L (31.0-37.0) g/dL RDW 20.5 H (11.5-15.5) % Macrocytosis Marked A Sodium 134 L (137-145) mmol/L Potassium 3.4 L (3.5-5.1) mmol/L Carbon Dioxide 15 L (22-30) mmol/L BUN 80 H (9-20) mg/dL Creatinine 2.51 H 2.47 H (0.66-1.25) mg/dL Glucose 107 H (74-99) mg/dL POC Glucose (mg/dL) (70-110) mg/dL Calcium 7.8 L (8.4-10.2) mg/dL 01/25/23 01/25/23 01/25/23 Range/Units 11:55 16:47 16:50 WBC (3.8-10.6) k/uL RBC (4.30-5.90) m/uL Hgb (13.0-17.5) gm/dL Hct (39.0-53.0) % MCV (80.0-100.0) fL MCHC (31.0-37.0) g/dL RDW (11.5-15.5) % Macrocytosis Sodium (137-145) mmol/L Potassium (3.5-5.1) mmol/L Carbon Dioxide (22-30) mmol/L BUN (9-20) mg/dL Creatinine (0.66-1.25) mg/dL Glucose (74-99) mg/dL POC Glucose (mg/dL) 364 H 443 H 227 H (70-110) mg/dL Calcium (8.4-10.2) mg/dL 01/25/23 01/26/23 Range/Units 21:12 05:17 WBC (3.8-10.6) k/uL RBC (4.30-5.90) m/uL Hgb (13.0-17.5) gm/dL Hct (39.0-53.0) % MCV (80.0-100.0) fL MCHC (31.0-37.0) g/dL RDW (11.5-15.5) % Macrocytosis Sodium (137-145) mmol/L Potassium (3.5-5.1) mmol/L Carbon Dioxide (22-30) mmol/L BUN (9-20) mg/dL Creatinine (0.66-1.25) mg/dL Glucose (74-99) mg/dL POC Glucose (mg/dL) 154 H 153 H (70-110) mg/dL Calcium (8.4-10.2) mg/dL Microbiology - Last 24 Hours (Table) 01/22/23 10:21 Stool Culture - Final Stool 01/21/23 20:35 Blood Culture - Preliminary Blood 01/21/23 20:20 Blood Culture - Preliminary Blood
[2023-01-26 11:29] LABS: Glucose,Whole Blood 188 mg/dL (70-110)
[2023-01-26] MEDS ORDERED: FUROSEMIDE 10 MG/ML 4 ML VIAL IV STA (11:38)
--- NOTE | 2023-01-26 11:38 | P.PN ---
Subjective Patient is seen for follow-up for acute kidney injury. Renal function slightly improved from yesterday. Has an indwelling Jacobs catheter with 24-hour urine output documented at 1 L. Currently not on IV fluids or diuretics. Patient appears mildly short of breath today. He has had about 3 bowel movements today. Objective - Vital Signs Vital signs: Vital Signs Temp 97.6 F 01/26/23 08:53 Pulse 97 01/26/23 11:33 Resp 20 01/26/23 08:53 BP 103/73 01/26/23 08:53 Pulse Ox 96 01/26/23 08:53 FiO2 Intake & Output 01/25/23 01/26/23 01/26/23 18:59 06:59 18:59 Intake Total 478 118 Output Total 1301 400 Balance -823 -400 118 Weight 105 kg Intake: Oral 478 118 Output: Urine 1300 400 Stool 1 Other: Voiding Method Indwelling Catheter Indwelling Catheter Indwelling Catheter # Bowel Movements 1 - Exam Patient is awake, comfortable, no acute distress, mildly short of breath Examination of the heart S1 and S2 Examination the lungs decreased breath sounds at the bases Examination of lower extremity shows edema 1+ 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 - Labs CBC & Chem 7: 01/26/23 07:55 01/26/23 07:55 Labs: Abnormal Lab Results - Last 24 Hours (Table) 01/25/23 01/25/23 01/25/23 Range/Units 11:55 16:47 16:50 WBC (3.8-10.6) k/uL RBC (4.30-5.90) m/uL Hgb (13.0-17.5) gm/dL Hct (39.0-53.0) % MCV (80.0-100.0) fL MCHC (31.0-37.0) g/dL RDW (11.5-15.5) % Macrocytosis Sodium (137-145) mmol/L Potassium (3.5-5.1) mmol/L Carbon Dioxide (22-30) mmol/L BUN (9-20) mg/dL Creatinine (0.66-1.25) mg/dL Glucose (74-99) mg/dL POC Glucose (mg/dL) 364 H 443 H 227 H (70-110) mg/dL Calcium (8.4-10.2) mg/dL 01/25/23 01/26/23 01/26/23 Range/Units 21:12 05:17 07:55 WBC 15.2 H (3.8-10.6) k/uL RBC 2.59 L (4.30-5.90) m/uL Hgb 8.4 L (13.0-17.5) gm/dL Hct 27.7 L (39.0-53.0) % MCV 107.0 H (80.0-100.0) fL MCHC 30.3 L (31.0-37.0) g/dL RDW 20.4 H (11.5-15.5) % Macrocytosis Marked A Sodium (137-145) mmol/L Potassium (3.5-5.1) mmol/L Carbon Dioxide (22-30) mmol/L BUN (9-20) mg/dL Creatinine (0.66-1.25) mg/dL Glucose (74-99) mg/dL POC Glucose (mg/dL) 154 H 153 H (70-110) mg/dL Calcium (8.4-10.2) mg/dL 01/26/23 01/26/23 Range/Units 07:55 11:27 WBC (3.8-10.6) k/uL RBC (4.30-5.90) m/uL Hgb (13.0-17.5) gm/dL Hct (39.0-53.0) % MCV (80.0-100.0) fL MCHC (31.0-37.0) g/dL RDW (11.5-15.5) % Macrocytosis Sodium 136 L (137-145) mmol/L Potassium 3.2 L (3.5-5.1) mmol/L Carbon Dioxide 17 L (22-30) mmol/L BUN 73 H (9-20) mg/dL Creatinine 2.01 H (0.66-1.25) mg/dL Glucose 150 H (74-99) mg/dL POC Glucose (mg/dL) 188 H (70-110) mg/dL Calcium 7.8 L (8.4-10.2) mg/dL Microbiology - Last 24 Hours (Table) 01/22/23 10:21 Stool Culture - Final Stool Assessment and Plan Assessment: 1. Acute kidney injury secondary to ATN with low blood pressure. Nonoliguric. Currently slightly improved. Ultrasound shows no evidence of obstruction. UA shows 2+ protein. 2. Chronic kidney disease stage III a with baseline creatinine 1.1-1.3 mg/dL secondary to diabetic kidney disease 3. CHF with systolic dysfunction, ejection fraction 35% 4. C. diff colitis 5. Metabolic acidosis maintained on sodium bicarb, etiology is diarrhea and acute kidney injury Plan: Increase sodium bicarb to 3 times a day IV Lasix 1 Continue with midodrine Continue to encourage increase oral intake.
--- NOTE | 2023-01-26 12:51 | P.PN ---
Subjective Progress Note Date: 01/26/23 Principal diagnosis: Reason for follow-up is sepsis and severe C. diff colitis Patient is a 72-year-old male with past medical history significant for atrial fibrillation coronary disease heart failure diabetes mellitus hypertension hyperlipidemia he was recently admitted to the hospital and the patient did have a Proteus mirabilis bacteremia source was likely abdominal treated with a course of IV followed by oral antibiotic therapy subsequently readmitted to the hospital and the patient has been treated for C. difficile colitis, patient of presenting back to the hospital for evaluation of hypotension patient was noticed to have elevated white count significant diarrhea and stool for C. 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 diff positive, patient did have a left heel culture which grew MRSA Objective - Vital Signs Vital signs: Vital Signs Temp 97.5 F L 01/26/23 11:32 Pulse 97 01/26/23 11:33 Resp 20 01/26/23 11:32 BP 117/63 01/26/23 11:32 Pulse Ox 98 01/26/23 11:32 FiO2 Intake & Output 01/25/23 01/26/23 01/26/23 18:59 06:59 18:59 Intake Total 478 118 Output Total 1301 400 Balance -823 -400 118 Weight 105 kg Intake: Oral 478 118 Output: Urine 1300 400 Stool 1 Other: Voiding Method Indwelling Catheter Indwelling Catheter Indwelling Catheter # Bowel Movements 1 - Exam GENERAL DESCRIPTION: An elderly male lying in bed in no distress RESPIRATORY SYSTEM: Unlabored breathing , decreased breath sound at the bases HEART: S1 S2 regular rate and rhythm , ABDOMEN: Soft , no tenderness EXTREMITIES: Left heel wound with no slough tissue no surrounding redness or drainage - Labs CBC & Chem 7: 01/26/23 07:55 01/26/23 07:55 Labs: Abnormal Lab Results - Last 24 Hours (Table) 01/25/23 01/25/23 01/25/23 Range/Units 16:47 16:50 21:12 WBC (3.8-10.6) k/uL RBC (4.30-5.90) m/uL Hgb (13.0-17.5) gm/dL Hct (39.0-53.0) % MCV (80.0-100.0) fL MCHC (31.0-37.0) g/dL RDW (11.5-15.5) % Macrocytosis Sodium (137-145) mmol/L Potassium (3.5-5.1) mmol/L Carbon Dioxide (22-30) mmol/L BUN (9-20) mg/dL Creatinine (0.66-1.25) mg/dL Glucose (74-99) mg/dL POC Glucose (mg/dL) 443 H 227 H 154 H (70-110) mg/dL Calcium (8.4-10.2) mg/dL 01/26/23 01/26/23 01/26/23 Range/Units 05:17 07:55 07:55 WBC 15.2 H (3.8-10.6) k/uL RBC 2.59 L (4.30-5.90) m/uL Hgb 8.4 L (13.0-17.5) gm/dL Hct 27.7 L (39.0-53.0) % MCV 107.0 H (80.0-100.0) fL MCHC 30.3 L (31.0-37.0) g/dL RDW 20.4 H (11.5-15.5) % Macrocytosis Marked A Sodium 136 L (137-145) mmol/L Potassium 3.2 L (3.5-5.1) mmol/L Carbon Dioxide 17 L (22-30) mmol/L BUN 73 H (9-20) mg/dL Creatinine 2.01 H (0.66-1.25) mg/dL Glucose 150 H (74-99) mg/dL POC Glucose (mg/dL) 153 H (70-110) mg/dL Calcium 7.8 L (8.4-10.2) mg/dL 11/21/23 Range/Units 11:27 WBC (3.8-10.6) k/uL RBC (4.30-5.90) m/uL Hgb (13.0-17.5) gm/dL Hct (39.0-53.0) % MCV (80.0-100.0) fL MCHC (31.0-37.0) g/dL RDW (11.5-15.5) % Macrocytosis Sodium (137-145) mmol/L Potassium (3.5-5.1) mmol/L Carbon Dioxide (22-30) mmol/L BUN (9-20) mg/dL Creatinine (0.66-1.25) mg/dL Glucose (74-99) mg/dL POC Glucose (mg/dL) 188 H (70-110) mg/dL Calcium (8.4-10.2) mg/dL Microbiology - Last 24 Hours (Table) 01/22/23 10:21 Stool Culture - Final Stool Assessment and Plan (1) C. difficile colitis Current Visit: Yes Status: Acute Code(s): A04.72 - ENTEROCOLITIS D/T CLOSTRIDIUM DIFFICILE, NOT SPCF RECUR SNOMED Code(s): 814142958 (2) Sepsis Current Visit: Yes Status: Acute Code(s): A41.9 - SEPSIS, UNSPECIFIED ORGANISM SNOMED Code(s): 96036681 Plan: 1patient presented to hospital with hypotension weakness in this patient who did have a elevated white count diarrhea source is likely C. difficile colitis that has failed outpatient oral vancomycin therapy clinic suspicious low for pneumonia in this patient with no significant cough or sputum production, patient stool for C. diff came back positive 2-patient is slowly clinically improving and we will continue with the current treatment of Dificid and IV Flagyl , he still having loose stool and Questran for symptomatic relief 3-left heel wound positive culture with MRSA more likely colonization wound doesn't look infected clinically. We will order local wound care with Aquacel silver dressing and keep the area of the pressure Dictation was produced using [employer] dictation software. please excuse any grammatical, word or spelling errors. Time with Patient: Less than 30
[2023-01-26] MEDS: CHOLESTYRAMINE (WITH SUGAR) 4 GM PACKET PO SCH ×2 (14:20→18:05)
[2023-01-26 16:11] LABS: Glucose,Whole Blood 212 mg/dL (70-110)
--- NOTE | 2023-01-26 16:30 | XR ---
EXAMINATION TYPE: XR chest 1V portable DATE OF EXAM: 01/26/2023 1:18 PM CLINICAL INDICATION:Male, 72 years old with history of SOB; [facility] COMPARISON: Chest radiographs from 01/22/2023. TECHNIQUE: XR chest 1V portable Frontal view of the chest. FINDINGS: Lungs/Pleura: There is no evidence of pleural effusion, focal consolidation, or pneumothorax. Pulmonary vascularity: Mild pulmonary vascular congestion. Heart/mediastinum: Cardiomediastinal silhouette is enlarged and stable. Two lead cardiac conduction d evice overlying the left hemithorax with lead tips projecting over the right ventricle and right atri um. Musculoskeletal: No acute osseous pathology. There is thoracic spine fixation hardware is present. Other findings: None Lines/Tubes: IMPRESSION: Cardiomegaly and improved mild pulmonary vascular congestion.
[2023-01-26 20:10] LABS: Glucose,Whole Blood 181 mg/dL (70-110)
[2023-01-26] MEDS: risperiDONE 0.5 MG TAB PO SCH (20:58)
[2023-01-26] MEDS: SERTRALINE 50 MG TAB PO SCH (20:58)
[2023-01-26] MEDS: ATORVASTATIN 40 MG TAB PO SCH (20:58)
[2023-01-26] MEDS: INSULIN DETEMIR (LEVEMIR) 100 UNIT/ML SYR SQ SCH (20:59)
[2023-01-27] MEDS ORDERED: IPRATROPIUM-ALBUTEROL 3 ML NEB INHALATION PRN (01:25)
[2023-01-27 06:09] LABS: Glucose,Whole Blood 101 mg/dL (70-110)
[2023-01-27] MEDS: INSULIN ASPART (NovoLOG) 100 UNIT/ML VIAL SQ SCH ×2 (06:41→12:12)
[2023-01-27] MEDS: METOPROLOL TARTRATE 25 MG TAB PO SCH ×2 (06:44→14:58)
[2023-01-27] MEDS: PANTOPRAZOLE 40 MG TABLET PO SCH (06:44)
[2023-01-27] MEDS: MIDODRINE 5 MG TAB PO SCH ×2 (06:44→12:11)
[2023-01-27 07:00] VITALS: RESP 16
[2023-01-27 08:14] LABS: Anisocytosis Moderate; HCT 25.6 % (39.0-53.0); HGB 7.9 gm/dL (13.0-17.5); Hypochromasia Marked; MCH 32.7 pg (25.0-35.0); MCHC 30.7 g/dL (31.0-37.0); MCV 106.4 fL (80.0-100.0); Macrocytosis Marked; Mean Platelet Volume 7.8; Platelet Count 340 k/uL (150-450); Poikilocytosis Marked; RBC 2.41 m/uL (4.30-5.90); RDW 20.5 % (11.5-15.5); WBC 13.4 k/uL (3.8-10.6)
[2023-01-27] MEDS: FLUTICASONE 220 MCG INHALER INHALATION SCH (08:19)
[2023-01-27] MEDS: IPRATROPIUM-ALBUTEROL 3 ML NEB INHALATION SCH ×3 (08:19→15:30)
[2023-01-27 08:33] LABS: African American GFR (CKD) 47 (>60 ml/min/1.73 sqM); Anion Gap 11 mmol/L; Blood Urea Nitrogen 65 mg/dL (9-20); Calcium 7.6 mg/dL (8.4-10.2); Carbon Dioxide 18 mmol/L (22-30); Chloride 108 mmol/L (98-107); Glucose 87 mg/dL (74-99); Non-African American GFR(CKD) 41 (>60 ml/min/1.73 sqM); Potassium 3.8 mmol/L (3.5-5.1); Sodium 137 mmol/L (137-145)
[2023-01-27] MEDS: metroNIDAZOLE-NS PMX 500 MG in SALINE 1 100ML.BAG IVPB SCH (09:26)
[2023-01-27] MEDS: OXYBUTYNIN XL 5 MG TAB.ER.24 PO SCH (09:27)
[2023-01-27] MEDS: SODIUM BICARBONATE TAB 650 MG TAB PO SCH ×2 (09:27→14:58)
[2023-01-27] MEDS: CLOPIDOGREL 75 MG TAB PO SCH (09:27)
[2023-01-27] MEDS: AMIODARONE 200 MG TAB PO SCH (09:27)
[2023-01-27] MEDS: allopurinoL 100 MG TAB PO SCH (09:27)
[2023-01-27] MEDS: APIXABAN 5 MG TAB PO SCH (09:27)
[2023-01-27] MEDS: FIDAXOMICIN 200 MG TABLET PO SCH (09:27)
[2023-01-27 11:59] LABS: Glucose,Whole Blood 193 mg/dL (70-110)
[2023-01-27] MEDS: CHOLESTYRAMINE (WITH SUGAR) 4 GM PACKET PO SCH (12:12)
--- NOTE | 2023-01-27 12:43 | P.DS ---
Providers Date of admission: 01/22/23 00:53 Expected date of discharge: 01/27/23 Attending physician: Birgit Sky DO Consults: 01/21/23 23:52 Consult Physician Stat Consulting Provider: Paul Arboleda Consult Reason/Comments: sepsis, HCAP, hx of c.diff still having diarrhea Do you want consulting provider notified?: Yes Consult Physician Urgent Consulting Provider: [facility] Consult Reason/Comments: afib w/ rvr Do you want consulting provider notified?: Yes 01/22/23 10:08 Consult Physician Routine Consulting Provider: Bertrand Murcia Consult Reason/Comments: RAJAN Do you want consulting provider notified?: Yes Primary care physician: [facility] Course: Patient is a 72-year-old male with systolic CHF, A. fib on Eliquis, CAD status post stents, COPD, type 2 diabetes, and hypertension who presented from rehab with hypotension. He was recently hospitalized here form 12/27/22 through 01/06/23 due to C. diff colitis with sepsis. It was discharged in [place] on oral vancomycin. On arrival to the ER his vital signs are remarkable for heart rate of 118 and a blood pressure of 84/63. Laboratory analysis was remarkable for white blood cell count 13.9, hemoglobin 7.8, INR 1.3, sodium 135, BUN 78, creatinine 2.64, lactic acid 2.4. Influenza A/B were negative. Chest x-ray was completed which showed possible pneumonia versus pulmonary edema. Patient was subsequently started on doxycycline, Rocephin, vancomycin IV and orally as well as Flagyl due to his recent C. diff. Arrangements were made for admission. her was seen by ID and C diff came back positive- he was changed to dificid and IV flagyl. His CXR was more consistent with fluid overliad than PNA and the remained of ABX were discontinued. He was seen by nephrology and midordrine was added to optimize blood pressure. 01/25 Patient seen and examined at bedside. He is much more awake and alert today. He denies any shortness of breath or chest pain. He states his diarrhea is slowing down. CBC WBC 11.6 Hg 7.6. BMP Na 134, K 3.4, bicarb 15, BUN 80, Cr 2.47, glucose 107, Ca 7.8. 01/26 Patient was seen and examined. CBC WBC 15.2 Hg 8.4. BMP Na 136, K 3.2, bicarb 17, BUN 73, Cr 2.01, glu 150, Ca 7.8. Cardiology recommends discontinuing Midodrine and cautious gentle IV hydration if needed. Plans to discuss with guardian regarding making the patient NO CODE. He is being treated for C. diff with Flagyl and Dificid. He did appear slightly SOB yesterday, CXR showed improved mild pulmonary vascular congestion. I attempted to call the guardian with calls going to [employer]. I believe the patient would be appropriate for DNR DNI status as well as hospice given his multiple re-admissions. Case discussed with Annelise RN at [facility], patient is a snf resident at [facility]. CBC today shows improved WBC count of 13.4 and Hg of 7.9. BMP shows Cl 108, bicarb 18, BUN 65, Cr 1.64, Ca 7.6. Plan is for hopeful discharge to [facility] today. Dr. Arboleda recommends 7 days of Fidaxomin. Will discuss with Annelise regarding further discussions with his guardian to make him DNR and possible hospice. Pertient studies include CXR, Foot XR, Renal US. Vital signs reviewed General: nontoxic, no distress, appears at stated age Cardiovascular: S1S2 reg, no murmur Lungs: Decreased BS bilaterally , no accessory muscle use Abdominal: soft, nontender to palpation, no guarding, no appreciable organomegaly Ext: no gross muscle atrophy, diffuse anasarca, no contractures Neuro: no focal neuro deficits Psych: Awake, alert, more conversational Discharge Diagnosis: Sepsis related to recurrent C. diff colitis Acute kidney injury on CKD stage III Metabolic acidosis Hypokalemia Acute on chronic anemia of chronic disease related to CKD, baseline hemoglobin 8 Acute exacerbation of systolic congestive heart failure with ejection fraction 35-40% Atrial fibrillation with rapid ventricular response CAD Hypotension Type 2 DM, insulin dependent Resolved: Lactic acidosis This complex discharge took 35 minutes to complete. Patient Condition at Discharge: Stable Plan - Discharge Summary Discharge Rx Participant: No New Discharge Prescriptions: New Midodrine [ProAmatine] 10 mg PO AC-TID tab Cholestyramine (with Sugar) [Questran Packet] 4 gm PO BID@1100,1800 PRN packet PRN Reason: Diarrhea Amiodarone [Cordarone] 400 mg PO DAILY tab Fidaxomicin [Dificid] 200 mg PO BID 7 Days tab Metoprolol Tartrate [Lopressor] 25 mg PO TID@0600,1400,2200 tab Continue Ferrous Sulfate [Iron] 325 mg PO DAILY@0800 risperiDONE [RisperDAL] 0.5 mg PO HS@2100 Sertraline HCl [Zoloft] 50 mg PO HS@2100 Apixaban [Eliquis] 5 mg PO BID@0800,1700 Clopidogrel [Plavix] 75 mg PO DAILY@0800 Lidocaine 5% Patch [Lidoderm 5% Patch] 1 patch TRANSDERM DAILY@0800 Magnesium Hydroxide [Milk of Magnesia Concentrate] 7,200 mg PO Q48H PRN PRN Reason: Constipation bisacodyL [Dulcolax] 10 mg RECTAL DAILY PRN PRN Reason: Constipation Na Phos,M-B/Na Phos,Di-Ba [Fleet Adult] 133 ml RECTAL DAILY PRN PRN Reason: Constipation Cyclobenzaprine [Flexeril] 5 mg PO TID@0600,1400,2200 Sodium Bicarbonate Tab 650 mg PO BID@0800,1700 Furosemide [Lasix] 40 mg PO DAILY@1400 Potassium Chloride ER [K-Dur 20] 20 meq PO BID@0800,1700 oxyBUTYnin chloride [oxyBUTYnin chloride ER] 5 mg PO DAILY@0800 Cholecalciferol [Vitamin D3 (25 Mcg = 1000 Iu)] 50 mcg PO DAILY@0800 Lactobacillus Acidophilus [Acidophilus Probiotic] 1 cap PO DAILY@0800 Budesonide [Pulmicort] 1 mg INHALATION RT-BID@0800,1700 Dapagliflozin Propanediol [Farxiga] 10 mg PO DAILY@0800 Pantoprazole [Protonix] 40 mg PO DAILY@0600 Insulin Detemir (Levemir) [Levemir] 10 unit SQ HS@2100 Ipratropium-Albuterol Nebulize [Duoneb 0.5 mg-3 mg/3 ml Soln] 3 ml INHALATION RT-Q6H PRN PRN Reason: Shortness Of Breath allopurinoL [Zyloprim] 100 mg PO DAILY@0800 Thiamine HCl [Vitamin B-1] 100 mg PO DAILY@0800 Atorvastatin [Lipitor] 40 mg PO HS@2100 Ipratropium-Albuterol Nebulize [Duoneb 0.5 mg-3 mg/3 ml Soln] 3 ml INHALATION RT-QID@00,06,12,18 Acetaminophen Tab [Tylenol] 650 mg PO Q6HR PRN tab PRN Reason: Mild Pain Or Fever > 100.5 INSULIN ASPART (NovoLOG) [NovoLOG (formulary)] See Protocol SQ ACHS@07,11,1630,2130 Glucerna Shake 237 ml PO TID@0800,1200,1700 Multivit-Min/FA/Lycopen/Lutein [Centrum Silver Tablet] 1 tab PO DAILY@0800 Discontinued Spironolactone [Aldactone] 12.5 mg PO DAILY@0800 #0 Furosemide [Lasix] 60 mg PO DAILY@0800 Sacubitril/Valsartan [Entresto 24 mg-26 mg Tablet] 1 tab PO BID@0800,1700 Metoprolol Tartrate [Lopressor] 50 mg PO TID@0600,1400,2200 Amiodarone [Cordarone] 200 mg PO DAILY@0800 Discharge Medication List Ferrous Sulfate [Iron] 325 mg PO DAILY@0810/21/20 [History] Sertraline HCl [Zoloft] 50 mg PO HS@209910/21/20 [History] allopurinoL [Zyloprim] 100 mg PO DAILY@0810/21/20 [History] risperiDONE [RisperDAL] 0.5 mg PO HS@209910/21/20 [History] Apixaban [Eliquis] 5 mg PO BID@0800,1700 05/09/21 [History] Thiamine HCl [Vitamin B-1] 100 mg PO DAILY@0805/09/21 [History] Atorvastatin [Lipitor] 40 mg PO HS@209910/16/22 [History] Clopidogrel [Plavix] 75 mg PO DAILY@0810/16/22 [History] Lidocaine 5% Patch [Lidoderm 5% Patch] 1 patch TRANSDERM DAILY@0810/17/22 [History] Cholecalciferol [Vitamin D3 (25 Mcg = 1000 Iu)] 50 mcg PO DAILY@0800 12/14/22 [History] Cyclobenzaprine [Flexeril] 5 mg PO TID@0600,1400,2200 12/14/22 [History] Furosemide [Lasix] 40 mg PO DAILY@1400 12/14/22 [History] Ipratropium-Albuterol Nebulize [Duoneb 0.5 mg-3 mg/3 ml Soln] 3 ml INHALATION RT-QID@00,06,12,18 12/14/22 [History] Magnesium Hydroxide [Milk of Magnesia Concentrate] 7,200 mg PO Q48H PRN 12/14/22 [History] Na Phos,M-B/Na Phos,Di-Ba [Fleet Adult] 133 ml RECTAL DAILY PRN 12/14/22 [History] Potassium Chloride ER [K-Dur 20] 20 meq PO BID@0800,1700 12/14/22 [History] Sodium Bicarbonate Tab 650 mg PO BID@0800,1700 12/14/22 [History] bisacodyL [Dulcolax] 10 mg RECTAL DAILY PRN 12/14/22 [History] oxyBUTYnin chloride [oxyBUTYnin chloride ER] 5 mg PO DAILY@0800 12/14/22 [History] Budesonide [Pulmicort] 1 mg INHALATION RT-BID@0800,1700 12/27/22 [History] Dapagliflozin Propanediol [Farxiga] 10 mg PO DAILY@0800 12/27/22 [History] Lactobacillus Acidophilus [Acidophilus Probiotic] 1 cap PO DAILY@0800 12/27/22 [History] Pantoprazole [Protonix] 40 mg PO DAILY@0600 12/27/22 [History] Acetaminophen Tab [Tylenol] 650 mg PO Q6HR PRN tab 01/06/23 [Rx] Glucerna Shake 237 ml PO TID@0800,1200,1700 01/21/23 [History] INSULIN ASPART (NovoLOG) [NovoLOG (formulary)] See Protocol SQ ACHS@07,11,1630,2130 01/21/23 [History] Insulin Detemir (Levemir) [Levemir] 10 unit SQ HS@2100 01/21/23 [History] Ipratropium-Albuterol Nebulize [Duoneb 0.5 mg-3 mg/3 ml Soln] 3 ml INHALATION RT-Q6H PRN 01/21/23 [History] Multivit-Min/FA/Lycopen/Lutein [Centrum Silver Tablet] 1 tab PO DAILY@0800 01/21/23 [History] Amiodarone [Cordarone] 400 mg PO DAILY tab 01/27/23 [Rx] Cholestyramine (with Sugar) [Questran Packet] 4 gm PO BID@1100,1800 PRN packet 01/27/23 [Rx] Fidaxomicin [Dificid] 200 mg PO BID 7 Days tab 01/27/23 [Rx] Metoprolol Tartrate [Lopressor] 25 mg PO TID@0600,1400,2200 tab 01/27/23 [Rx] Midodrine [ProAmatine] 10 mg PO AC-TID tab 01/27/23 [Rx] Follow up Appointment(s)/Referral(s): Dora Allan MD [STAFF PHYSICIAN] - 1 Week Umesh Alvarez DO [Primary Care Provider] - 1-2 days Hakan Angela MD [STAFF PHYSICIAN] - 1 Week Paul Arboleda MD [STAFF PHYSICIAN] - 1 Week Ambulatory/Diagnostic Orders: Basic Metabolic Panel [LAB.AMB] Time Frame: 3 Days, Location: None Selected Complete Blood Count w/diff [LAB.AMB] Time Frame: 3 Days, Location: None Selected Activity/Diet/Wound Care/Special Instructions: Diet: Renal, Cardiac Repeat CBC and BMP in 3 days. Discharge Disposition: TRANSFER TO SNF/ECF
[2023-01-27 12:44] VITALS: BMI 32.3
--- NOTE | 2023-01-27 14:16 | P.PN ---
Subjective Patient is seen in follow-up for acute kidney injury on chronic kidney disease. Renal function better. On nasal cannula. Blood pressure stable. Oral intake fair. Vital signs are stable. General: No acute distress. HEENT: Head exam is unremarkable. On nasal cannula. LUNGS: No audible rhonchi or wheezes. HEART: Rate and Rhythm are regular. ABDOMEN: Nontender. EXTREMITITES: 1+ edema. Objective - Vital Signs Vital signs: Vital Signs Temp 97.7 F 01/27/23 09:26 Pulse 102 H 01/27/23 12:06 Resp 16 01/27/23 09:26 BP 120/74 01/27/23 09:26 Pulse Ox 100 01/27/23 09:26 FiO2 Intake & Output 01/26/23 01/27/23 01/27/23 18:59 06:59 18:59 Intake Total 594 660 Output Total 950 402 400 Balance -356 -402 260 Weight 105 kg Intake: Oral 594 660 Output: Urine 950 400 400 Stool 2 Other: Voiding Method Indwelling Catheter Indwelling Catheter Indwelling Catheter # Bowel Movements 1 2 - Labs CBC & Chem 7: 01/27/23 07:53 01/27/23 07:53 Labs: Abnormal Lab Results - Last 24 Hours (Table) 01/26/23 01/26/23 01/27/23 Range/Units 16:09 20:09 07:53 WBC 13.4 H (3.8-10.6) k/uL RBC 2.41 L (4.30-5.90) m/uL Hgb 7.9 L (13.0-17.5) gm/dL Hct 25.6 L (39.0-53.0) % MCV 106.4 H (80.0-100.0) fL MCHC 30.7 L (31.0-37.0) g/dL RDW 20.5 H (11.5-15.5) % Macrocytosis Marked A Chloride (98-107) mmol/L Carbon Dioxide (22-30) mmol/L BUN (9-20) mg/dL Creatinine (0.66-1.25) mg/dL POC Glucose (mg/dL) 212 H 181 H (70-110) mg/dL Calcium (8.4-10.2) mg/dL 01/27/23 01/27/23 Range/Units 07:53 11:57 WBC (3.8-10.6) k/uL RBC (4.30-5.90) m/uL Hgb (13.0-17.5) gm/dL Hct (39.0-53.0) % MCV (80.0-100.0) fL MCHC (31.0-37.0) g/dL RDW (11.5-15.5) % Macrocytosis Chloride 108 H (98-107) mmol/L Carbon Dioxide 18 L (22-30) mmol/L BUN 65 H (9-20) mg/dL Creatinine 1.64 H (0.66-1.25) mg/dL POC Glucose (mg/dL) 193 H (70-110) mg/dL Calcium 7.6 L (8.4-10.2) mg/dL Microbiology - Last 24 Hours (Table) 01/21/23 20:35 Blood Culture - Final Blood 01/21/23 20:20 Blood Culture - Final Blood Assessment and Plan Plan: Assessment: 1. Acute kidney injury secondary to ATN secondary to hemodynamic instability and cardiorenal syndrome. Renal function improving. Creatinine 1.64 today. No hydronephrosis noted on kidney ultrasound. Right kidney atrophic. 2. Acute on chronic systolic CHF with ejection fraction of 35-40% with moderate mitral and tricuspid regurgitation and pulmonary hypertension. 3. Volume overload. Improved with diuresis. 4. Diabetes mellitus. 5. Left kidney cyst. Patient will need to see urology outpatient. 6. A. fib with RVR maintained on oral amiodarone and Lopressor. 7. Chronic kidney disease stage IIIA with baseline creatinine 1.1-1.3 secondary to diabetic kidney disease. 8. Anemia of chronic kidney disease. Rule out iron deficiency. 9. Metabolic acidosis secondary to acute kidney injury and GI losses. On oral bicarbonate. 10. C. diff on Dificid and Flagyl per ID. 11. Hypokalemia from diuresis. Replace. Improved. Plan: Add oral Lasix 40 mg once daily. Add maintenance potassium supplementation. Add Aranesp. Avoid nephrotoxins. Continue to monitor renal function and urine output. Repeat BMP and magnesium level 2-3 days postdischarge. Follow up outpatient in 1 week.
[2023-01-27 14:45] VITALS: TEMP 97.6
[2023-01-27 15:14] VITALS: BP 126/80
[2023-01-27] MEDS ORDERED: DARBEPOETIN ALFA 40 MCG/0.4 ML SYRINGE SQ SCH (16:00)
[2023-01-27 16:09] VITALS: PULSE 100
[2023-01-28] MEDS ORDERED: POTASSIUM CHLORIDE ER 10 MEQ TAB.ER.PRT PO SCH (09:00)
[2023-01-28] MEDS ORDERED: FUROSEMIDE 40 MG TAB PO SCH (09:00)
--- NOTE | 2023-02-03 18:12 | P.PN ---
Subjective Progress Note Date: 01/27/23 Principal diagnosis: Reason for follow-up is sepsis and severe C. diff colitis Patient is a 72-year-old male with past medical history significant for atrial fibrillation coronary disease heart failure diabetes mellitus hypertension hyperlipidemia he was recently admitted to the hospital and the patient did have a Proteus mirabilis bacteremia source was likely abdominal treated with a course of IV followed by oral antibiotic therapy subsequently readmitted to the hospital and the patient has been treated for C. difficile colitis, patient of presenting back to the hospital for evaluation of hypotension patient was noticed to have elevated white count significant diarrhea and stool for C. diff given a positive On today's evaluation that is 01/27/2023, the patient remains to be afebrile, the patient is breathing comfortably on room air and the patient denies any shortness of breath, the patient denies chest pain or any cough , patient denies abdominal pain, no nausea/vomiting and no diarrhea has been reported by the nurses aide Patient white count is slightly down to 13.4, creatinine is 1.64 stool for C. diff positive, patient did have a left heel culture which grew MRSA Objective - Vital Signs Vital signs: Vital Signs Temp 97.7 F 01/27/23 09:26 Pulse 105 H 01/27/23 09:26 Resp 16 01/27/23 09:26 BP 120/74 01/27/23 09:26 Pulse Ox 100 01/27/23 09:26 FiO2 Intake & Output 01/26/23 01/27/23 01/27/23 18:59 06:59 18:59 Intake Total 594 Output Total 950 402 Balance -356 -402 Intake: Oral 594 Output: Urine 950 400 Stool 2 Other: Voiding Method Indwelling Catheter Indwelling Catheter Indwelling Catheter # Bowel Movements 1 - Exam GENERAL DESCRIPTION: An elderly male lying in bed in no distress RESPIRATORY SYSTEM: Unlabored breathing , decreased breath sound at the bases HEART: S1 S2 regular rate and rhythm , ABDOMEN: Soft , no tenderness EXTREMITIES: Left heel wound with no slough tissue no surrounding redness or drainage - Labs CBC & Chem 7: 01/27/23 07:53 01/27/23 07:53 Labs: Abnormal Lab Results - Last 24 Hours (Table) 01/26/23 01/26/23 01/27/23 Range/Units 16:09 20:09 07:53 WBC 13.4 H (3.8-10.6) k/uL RBC 2.41 L (4.30-5.90) m/uL Hgb 7.9 L (13.0-17.5) gm/dL Hct 25.6 L (39.0-53.0) % MCV 106.4 H (80.0-100.0) fL MCHC 30.7 L (31.0-37.0) g/dL RDW 20.5 H (11.5-15.5) % Macrocytosis Marked A Chloride (98-107) mmol/L Carbon Dioxide (22-30) mmol/L BUN (9-20) mg/dL Creatinine (0.66-1.25) mg/dL POC Glucose (mg/dL) 212 H 181 H (70-110) mg/dL Calcium (8.4-10.2) mg/dL 01/27/23 Range/Units 07:53 WBC (3.8-10.6) k/uL RBC (4.30-5.90) m/uL Hgb (13.0-17.5) gm/dL Hct (39.0-53.0) % MCV (80.0-100.0) fL MCHC (31.0-37.0) g/dL RDW (11.5-15.5) % Macrocytosis Chloride 108 H (98-107) mmol/L Carbon Dioxide 18 L (22-30) mmol/L BUN 65 H (9-20) mg/dL Creatinine 1.64 H (0.66-1.25) mg/dL POC Glucose (mg/dL) (70-110) mg/dL Calcium 7.6 L (8.4-10.2) mg/dL Microbiology - Last 24 Hours (Table) 01/21/23 20:35 Blood Culture - Final Blood 01/21/23 20:20 Blood Culture - Final Blood Assessment and Plan (1) C. difficile colitis Status: Acute Code(s): A04.72 - ENTEROCOLITIS D/T CLOSTRIDIUM DIFFICILE, NOT SPCF RECUR SNOMED Code(s): 450062844 (2) Sepsis Status: Acute Code(s): A41.9 - SEPSIS, UNSPECIFIED ORGANISM SNOMED Code(s): 22606217 Plan: 1patient presented to hospital with hypotension weakness in this patient who did have a elevated white count diarrhea source is likely C. difficile colitis that has failed outpatient oral vancomycin therapy clinic suspicious low for pneumonia in this patient with no significant cough or sputum production, patient stool for C. diff came back positive 2-patient has shown clinical improvement and plan he is to finishtherapy with Dificid and discontinue IV Flagyl use Questran as needed for symptomatic relief 3-left heel wound positive culture with MRSA more likely colonization wound doesn't look infected clinically. We will order local wound care with Aquacel silver dressing and keep the area of the pressure Dictation was produced using [employer] dictation software. please excuse any grammatical, word or spelling errors. Time with Patient: Less than 30
== END 2023-01-27 16:15 | DRG 871 ==
LOC: EC 19:45 → 3SCARD 01-22 00:53
PROVIDERS: ADMIT Internal Medicine; ATTEND Internal Medicine
DX: A41.4 Sepsis due to anaerobes (principal); I50.23 Acute on chronic systolic (congestive) heart failure; N17.0 Acute kidney failure with tubular necrosis; J18.0 Bronchopneumonia, unspecified organism; I13.0 Hypertensive heart and chronic kidney disease with heart failure and stage 1 through stage 4 chronic kidney disease, or unspecified chronic kidney disease; A04.71 Enterocolitis due to Clostridium difficile, recurrent; I48.19 Other persistent atrial fibrillation; I47.20 Ventricular tachycardia, unspecified; E87.20 Acidosis, unspecified; I42.8 Other cardiomyopathies; N18.31 Chronic kidney disease, stage 3a; N28.1 Cyst of kidney, acquired; I48.0 Paroxysmal atrial fibrillation; I25.5 Ischemic cardiomyopathy; Z79.01 Long term (current) use of anticoagulants; I25.10 Atherosclerotic heart disease of native coronary artery without angina pectoris; E87.6 Hypokalemia; Z95.5 Presence of coronary angioplasty implant and graft; Z95.810 Presence of automatic (implantable) cardiac defibrillator; E78.5 Hyperlipidemia, unspecified; E11.22 Type 2 diabetes mellitus with diabetic chronic kidney disease; Z79.4 Long term (current) use of insulin; Z79.899 Other long term (current) drug therapy; D63.1 Anemia in chronic kidney disease; E11.621 Type 2 diabetes mellitus with foot ulcer; E11.649 Type 2 diabetes mellitus with hypoglycemia without coma; F32.A Depression, unspecified; T50.2X5A Adverse effect of carbonic-anhydrase inhibitors, benzothiadiazides and other diuretics, initial encounter; X58.XXXA Exposure to other specified factors, initial encounter; I45.10 Unspecified right bundle-branch block; L89.159 Pressure ulcer of sacral region, unspecified stage; F41.9 Anxiety disorder, unspecified; I08.1 Rheumatic disorders of both mitral and tricuspid valves; E87.70 Fluid overload, unspecified; I27.20 Pulmonary hypertension, unspecified; D50.9 Iron deficiency anemia, unspecified; Y95 Nosocomial condition; Z79.02 Long term (current) use of antithrombotics/antiplatelets; Z79.84 Long term (current) use of oral hypoglycemic drugs; Z86.16 Personal history of COVID-19; Z87.440 Personal history of urinary (tract) infections; Z22.322 Carrier or suspected carrier of Methicillin resistant Staphylococcus aureus; Z66 Do not resuscitate
CPT/HCPCS: 36415; 71045; 71046; 76770; 80048; 80053; 81001; 82565; 82728; 83036; 83540; 83550; 83605; 83735; 83880; 84484; 85025; 85027; 85610; 85730; 86140; 87040; 87045; 87046; 87070; 87077; 87186; 87205; 87324; 87449; 87502; 87634; 87635; 93005; 94640; 94760; 96365; 96366; 96367; 96368; 96375; 99291

== ENCOUNTER 2023-01-29 06:39 | Inpatient (IN) | payer OTHER ==
[2023-01-29] MEDS ORDERED: DEXAMETHASONE SOD PHOSPHATE 10 MG/ML 1 ML VIAL IV STA (07:27)
[2023-01-29] MEDS ORDERED: ALBUTEROL NEBULIZED 2.5 MG/3 ML INHALATION STA (07:27)
[2023-01-29] MEDS ORDERED: IPRATROPIUM 0.5 MG/2.5 ML NEBU INHALATION STA (07:27)
--- NOTE | 2023-01-29 07:37 | ED ---
General Adult HPI - General Chief complaint: Shortness of Breath Stated complaint: SOB Time Seen by Provider: 01/29/23 07:10 Source: EMS Mode of arrival: EMS - History of Present Illness Initial comments: Dictation was produced using Alma Johns dictation software. please excuse any grammatical, word or spelling errors. Chief Complaint: 72-year-old male multiple comorbidities presents to the ER for shortness of breath History of Present Illness: Patient 72-year-old male has past medical history of CK D, CHF, COPD. He presents us via EMS from [facility]. Patient states he is short of breath. Patient is a limited historian. According to nurse who received report from EMS patient is here for shortness of breath acute on chronic. Patient recently admitted to the hospital. States that he's been short of breath for a long time. Does report that patient seems much more noticeably swollen to his whole body. ROS limited secondary to patient's clinical status. - Related Data Home Medications Medication Instructions Recorded Confirmed Ferrous Sulfate [Iron] 325 mg PO DAILY@79910/21/20 01/29/23 Sertraline HCl [Zoloft] 50 mg PO HS@209910/21/20 01/29/23 allopurinoL [Zyloprim] 100 mg PO DAILY@79910/21/20 01/29/23 risperiDONE [RisperDAL] 0.5 mg PO HS@209910/21/20 01/29/23 Apixaban [Eliquis] 5 mg PO BID@0800,1700 05/09/21 01/29/23 Thiamine HCl [Vitamin B-1] 100 mg PO DAILY@79905/09/21 01/29/23 Atorvastatin [Lipitor] 40 mg PO HS@209910/16/22 01/29/23 Clopidogrel [Plavix] 75 mg PO DAILY@79910/16/22 01/29/23 Lidocaine 5% Patch [Lidoderm 5% 1 patch TRANSDERM DAILY@79910/17/22 01/29/23 Patch] Cholecalciferol [Vitamin D3 (25 50 mcg PO DAILY@0800 12/14/22 01/29/23 Mcg = 1000 Iu)] Cyclobenzaprine [Flexeril] 5 mg PO TID@0600,1400,2200 12/14/22 01/29/23 Furosemide [Lasix] 40 mg PO DAILY@1400 12/14/22 01/29/23 Ipratropium-Albuterol Nebulize 3 ml INHALATION RT-QID@00,06,12,18 12/14/22 01/29/23 [Duoneb 0.5 mg-3 mg/3 ml Soln] Magnesium Hydroxide [Milk of 7,200 mg PO Q48H PRN 12/14/22 01/29/23 Magnesia Concentrate] Na Phos,M-B/Na Phos,Di-Ba [Fleet 133 ml RECTAL DAILY PRN 12/14/22 01/29/23 Adult] Potassium Chloride ER [K-Dur 20] 20 meq PO BID@0800,1700 12/14/22 01/29/23 Sodium Bicarbonate Tab 650 mg PO BID@0800,1700 12/14/22 01/29/23 bisacodyL [Dulcolax] 10 mg RECTAL DAILY PRN 12/14/22 01/29/23 oxyBUTYnin chloride [oxyBUTYnin 5 mg PO DAILY@0800 12/14/22 01/29/23 chloride ER] Budesonide [Pulmicort] 1 mg INHALATION RT-BID@0800,1700 12/27/22 01/29/23 Dapagliflozin Propanediol [Farxiga] 10 mg PO DAILY@0800 12/27/22 01/29/23 Lactobacillus Acidophilus 1 cap PO DAILY@0800 12/27/22 01/29/23 [Acidophilus Probiotic] Pantoprazole [Protonix] 40 mg PO DAILY@0600 12/27/22 01/29/23 Glucerna Shake 237 ml PO TID@0800,1200,1700 01/21/23 01/29/23 INSULIN ASPART (NovoLOG) [NovoLOG See Protocol SQ 01/21/23 01/29/23 (formulary)] ACHS@07,11,1630,2130 Insulin Detemir (Levemir) [Levemir] 10 unit SQ HS@2100 01/21/23 01/29/23 Ipratropium-Albuterol Nebulize 3 ml INHALATION RT-Q6H PRN 01/21/23 01/29/23 [Duoneb 0.5 mg-3 mg/3 ml Soln] Multivit-Min/FA/Lycopen/Lutein 1 tab PO DAILY@0800 01/21/23 01/29/23 [Centrum Silver Tablet] Previous Rx's Medication Instructions Recorded Acetaminophen Tab [Tylenol] 650 mg PO Q6HR PRN tab 01/06/23 Amiodarone [Cordarone] 400 mg PO DAILY tab 01/27/23 Cholestyramine (with Sugar) 4 gm PO BID@1100,1800 PRN packet 01/27/23 [Questran Packet] Fidaxomicin [Dificid] 200 mg PO BID 7 Days tab 01/27/23 Metoprolol Tartrate [Lopressor] 25 mg PO TID@0600,1400,2200 tab 01/27/23 Midodrine [ProAmatine] 10 mg PO AC-TID tab 01/27/23 Allergies Allergy/AdvReac Type Severity Reaction Status Date / Time No Known Allergies Allergy Verified 01/29/23 06:57 Review of Systems ROS Statement: Those systems with pertinent positive or pertinent negative responses have been documented in the HPI. ROS Other: All systems not noted in ROS Statement are negative. Past Medical History Past Medical History: Atrial Fibrillation, Coronary Artery Disease (CAD), Heart Failure, Diabetes Mellitus, Hyperlipidemia, Hypertension Additional Past Medical History / Comment(s): See Dr Piedra's H&P. "Feet cold sometimes". Gout. Hx UTI and kidney infection with Covid. History of Any Multi-Drug Resistant Organisms: MRSA Date of last positivie culture/infection: 01/21/23 MDRO Source:: Left Foot Past Surgical History: Heart Catheterization With Stent, Orthopedic Surgery, Pacemaker Additional Past Surgical History / Comment(s): 2 STENTS DEC 2020, left hip surgery X2. Past Anesthesia/Blood Transfusion Reactions: No Reported Reaction, Postoperative Nausea & Vomiting (PONV) Additional Past Anesthesia/Blood Transfusion Reaction / Comment(s): UNKNOWN FAMILY HX. Date of Last Stent Placement:: DEC 2020 Type of Cardiac Device: Unknown Device Placement Date:: Unknown Past Psychological History: Anxiety, Depression Smoking Status: Former smoker Past Alcohol Use History: None Reported Past Drug Use History: None Reported - Past Family History Mother Family Medical History: Cancer Brother(s) Family Medical History: Cancer Additional Family Medical History / Comment(s): Lung cancer. Father History Unknown: Yes Family Medical History: Hyperlipidemia General Exam - General Exam Comments Initial Comments: PHYSICAL EXAM: General Impression: Alert and oriented x3, body diaphoretic, dyspneic HEENT: Normocephalic atraumatic, extra-ocular movements intact, pupils equal and reactive to light bilaterally, mucous membranes moist. Cardiovascular: Heart regular rate and rhythm Chest: Tachypneic, diffuse wheezing Abdomen: abdomen soft, non-tender, non-distended, no organomegaly Musculoskeletal: 2+ pitting edema to the arms and legs Motor: no focal deficits noted Neurological: CN II-XII grossly intact, no focal motor or sensory deficits noted Skin: Intact with no visualized rashes Psych: Normal affect and mood Course Vital Signs 01/29/23 01/29/23 01/29/23 06:43 07:41 07:59 Temperature 99.2 F Pulse Rate 117 H 112 H Respiratory 30 H 30 H Rate Blood Pressure 124/103 133/103 O2 Sat by Pulse 97 96 Oximetry Fraction of 40 Inspired Oxygen (FIO2) 01/29/23 01/29/23 08:21 09:38 Temperature Pulse Rate 109 H 110 H Respiratory 24 22 Rate Blood Pressure 108/78 116/87 O2 Sat by Pulse 100 99 Oximetry Fraction of Inspired Oxygen (FIO2) - Reevaluation(s) Reevaluation #1: 01/29/23 07:36 Point of care bedside ultrasound showed mostly a line pattern with some scattered although minimal long Rockets. Suspect that patient has multifactorial causes of dyspnea. He does have history of COPD and CHF. According to most recent cardiology note he had an echocardiogram performed recently that showed a 35% ejection fraction. EKG Findings - EKG Comments: EKG Findings:: My EKG interpretation: Ventricular rate 116, interpretation sig nificantly limited due to artifact. Right bundle branch block QRS 29, QTC 425. no QTC prolongation, no ST or T-wave changes noted. EKG compared to 01/21/2023 showing no changes. Overall, this EKG is unremarkable Medical Decision Making - Medical Decision Making Was pt. sent in by a medical professional or institution ([facility], [employer], urgent care, hospital, or [place] [facility]...) When possible be specific @ -Sent to us from [place] [facility] Did you speak to anyone other than the patient for history (EMS, parent, family, police, friend...)? What history was obtained from this source @ -No Did you review nursing and triage notes (agree or disagree)? Why? @ -I reviewed and agree with nursing and triage notes Were old charts reviewed (outside hosp., previous admission, EMS record, old EKG, old radiological studies, urgent care reports/EKG's, [place] [facility] records)? Report findings @ -[facility] notes were reviewed showing the patient was admitted for pneumonia Differential Diagnosis (chest pain, altered mental status, abdominal pain women, abdominal pain men, vaginal bleeding, musculoskeletal, weakness, fever, dyspnea, syncope, headache, dizziness, GI bleed, back pain, seizure, CVA, pa lpatations, mental health)? @ -Differential Dyspnea: Coronary syndrome, arrhythmia, tamponade, asthma, COPD, pulmonary embolism, pneumonia, pneumothorax, pulmonary effusion, anaphylaxis, diabetic ketoacidosis, flailed chest, pulmonary contusion, diaphragmatic rupture, anemia, ne uromuscular, this is not meant to be an all-inclusive list. EKG interpreted by me (3pts min.). @ -As above X-rays interpreted by me (1pt min.). @ -Chest x-ray shows no acute processes. CT interpreted by me (1pt min.). @ -None done U/S interpreted by me (1pt. min.). @ -None done What testing was considered but not performed or refused? (CT, X-rays, U/S, labs)? Why? @ -None What meds were considered but not given or refused? Why? @ -None Did you discuss the management of the patient with other professionals (professionals i.e. , PA, [employer], lab, RT, psych nurse, clinical social work therapist, music orchestrator, teacher, licensed loan officer, case management coordinator)? Give summary @ -Discussed with hospitalist for admission Was smoking cessation discussed for >3mins.? @ -No Was critical care preformed (if so, how long)? @ -No Were there social determinants of health that impacted care today? How? (Homelessness, low income, unemployed, alcoholism, drug addiction, transport ation, low edu. Level, literacy, decrease access to med. care, penitentiary, rehab)? @ -No Was there de-escalation of care discussed even if they declined (Discuss DNR or withdrawal of care, Hospice)? DNR status @ -No What co-morbidities impacted this encounter? (DM, HTN, Smoking, COPD, CAD, Cancer, CVA, ARF, Chemo, Hep., AIDS, mental health diagnosis, sleep apnea, morbid obesity)? @ -None Was patient admitted / discharged? Hospital course, mention meds given and route, prescriptions, significant lab abnormalities, going to OR and other pertinent info. @ -72-year-old male with multiple comorbid is presents emergency department for acute respiratory failure. Patient is in significant distress at bedside is diaphoretic and dyspneic. Lungs however do not sound overwhelmingly abnormal. A second anticoagulation making pulmonary embolism very unlikely. Vital signs upon arrival shows heart rate of 117 respiratory rate of 30. 97% on 3 L nasal cannula. Laboratory evaluation shows leukocytosis of 18.7, rest of labs within acceptable limits. Vital testing is negative. Imaging studies are not very revealing. Patient given Lasix place on BiPAP given antibiotics and breathing treatment. This point is not obvious with causing patient's respiratory symptoms. Likely multifactorial in nature. Undiagnosed new problem with uncertain prognosis? @ -No Drug Therapy requiring intensive monitoring for toxicity (Heparin, Nitro, Insulin, Cardizem)? @ -No Were any procedures done? @ -No Diagnosis/symptom? Acute, or Chronic, or Acute on Chronic? Uncomplicated (without systemic symptoms) or Complicated (systemic symptoms)? @ -1. Respiratory failure, no obvious source Side effects of treatment? @ -No Exacerbation, Progression, or Severe Exacerbation? @ -No Poses a threat to life or bodily function? How? (Chest pain, [place], [place], pneumonia, PE, COPD, DKA, ARF, appy, cholecystitis, CVA, Diverticulitis, Homicidal, Suic idal, threat to staff... and all critical care pts) @ -yes - Lab Data Result diagrams: 01/29/23 07:33 01/29/23 07:33 Lab Results 01/29/23 01/29/23 01/29/23 Range/Units 07:33 07:33 07:33 WBC 18.7 H (3.8-10.6) k/uL RBC 2.72 L (4.30-5.90) m/uL Hgb 8.9 L (13.0-17.5) gm/dL Hct 29.0 L (39.0-53.0) % MCV 106.5 H (80.0-100.0) fL MCH 32.6 (25.0-35.0) pg MCHC 30.6 L (31.0-37.0) g/dL RDW 20.6 H (11.5-15.5) % Plt Count 546 H (150-450) k/uL MPV 7.6 Hypochromasia Marked Poikilocytosis Moderate Anisocytosis Moderate Macrocytosis Marked A PT 14.0 H (10.0-12.5) sec INR 1.3 H (<1.2) APTT 31.2 H (22.0-30.0) sec VBG pH (7.31-7.41) VBG pCO2 (37-51) mmHg VBG HCO3 (24-28) mmol/L Sodium 137 (137-145) mmol/L Potassium 5.6 H (3.5-5.1) mmol/L Chloride 110 H (98-107) mmol/L Carbon Dioxide 16 L (22-30) mmol/L Anion Gap 11 mmol/L BUN 55 H (9-20) mg/dL Creatinine 1.78 H (0.66-1.25) mg/dL Est GFR (CKD-EPI)AfAm 43 (>60 ml/min/1.73 sqM) Est GFR (CKD-EPI)NonAf 37 (>60 ml/min/1.73 sqM) Glucose 199 H (74-99) mg/dL Plasma Lactic Acid Ilya (0.7-2.0) mmol/L Calcium 8.6 (8.4-10.2) mg/dL Magnesium 2.1 (1.6-2.3) mg/dL Total Bilirubin 0.5 (0.2-1.3) mg/dL AST 30 (17-59) U/L ALT 36 (4-49) U/L Alkaline Phosphatase 102 (38-126) U/L Troponin I (0.000-0.034) ng/mL NT-Pro-B Natriuret Pep 40715 pg/mL Total Protein 8.6 H (6.3-8.2) g/dL Albumin 3.0 L (3.5-5.0) g/dL Influenza Type A (PCR) (Not Detectd) Influenza Type B (PCR) (Not Detectd) RSV (PCR) (Not Detectd) SARS-CoV-2 (PCR) (Not Detectd) 1101/29/23 01/29/23 Range/Units 07:33 07:33 07:33 WBC (3.8-10.6) k/uL RBC (4.30-5.90) m/uL Hgb (13.0-17.5) gm/dL Hct (39.0-53.0) % MCV (80.0-100.0) fL MCH (25.0-35.0) pg MCHC (31.0-37.0) g/dL RDW (11.5-15.5) % Plt Count (150-450) k/uL MPV Hypochromasia Poikilocytosis Anisocytosis Macrocytosis PT (10.0-12.5) sec INR (<1.2) APTT (22.0-30.0) sec VBG pH (7.31-7.41) VBG pCO2 (37-51) mmHg VBG HCO3 (24-28) mmol/L Sodium (137-145) mmol/L Potassium (3.5-5.1) mmol/L Chloride (98-107) mmol/L Carbon Dioxide (22-30) mmol/L Anion Gap mmol/L BUN (9-20) mg/dL Creatinine (0.66-1.25) mg/dL Est GFR (CKD-EPI)AfAm (>60 ml/min/1.73 sqM) Est GFR (CKD-EPI)NonAf (>60 ml/min/1.73 sqM) Glucose (74-99) mg/dL Plasma Lactic Acid Ilya 1.9 (0.7-2.0) mmol/L Calcium (8.4-10.2) mg/dL Magnesium (1.6-2.3) mg/dL Total Bilirubin (0.2-1.3) mg/dL AST (17-59) U/L ALT (4-49) U/L Alkaline Phosphatase (38-126) U/L Troponin I <0.012 (0.000-0.034) ng/mL NT-Pro-B Natriuret Pep pg/mL Total Protein (6.3-8.2) g/dL Albumin (3.5-5.0) g/dL Influenza Type A (PCR) Not Detected (Not Detectd) Influenza Type B (PCR) Not Detected (Not Detectd) RSV (PCR) Not Detected (Not Detectd) SARS-CoV-2 (PCR) Not Detected (Not Detectd) 01/29/23 Range/Units 07:33 WBC (3.8-10.6) k/uL RBC (4.30-5.90) m/uL Hgb (13.0-17.5) gm/dL Hct (39.0-53.0) % MCV (80.0-100.0) fL MCH (25.0-35.0) pg MCHC (31.0-37.0) g/dL RDW (11.5-15.5) % Plt Count (150-450) k/uL MPV Hypochromasia Poikilocytosis Anisocytosis Macrocytosis PT (10.0-12.5) sec INR (<1.2) APTT (22.0-30.0) sec VBG pH 7.30 L (7.31-7.41) VBG pCO2 40 (37-51) mmHg VBG HCO3 20 L (24-28) mmol/L Sodium (137-145) mmol/L Potassium (3.5-5.1) mmol/L Chloride (98-107) mmol/L Carbon Dioxide (22-30) mmol/L Anion Gap mmol/L BUN (9-20) mg/dL Creatinine (0.66-1.25) mg/dL Est GFR (CKD-EPI)AfAm (>60 ml/min/1.73 sqM) Est GFR (CKD-EPI)NonAf (>60 ml/min/1.73 sqM) Glucose (74-99) mg/dL Plasma Lactic Acid Ilya (0.7-2.0) mmol/L Calcium (8.4-10.2) mg/dL Magnesium (1.6-2.3) mg/dL Total Bilirubin (0.2-1.3) mg/dL AST (17-59) U/L ALT (4-49) U/L Alkaline Phosphatase (38-126) U/L Troponin I (0.000-0.034) ng/mL NT-Pro-B Natriuret Pep pg/mL Total Protein (6.3-8.2) g/dL Albumin (3.5-5.0) g/dL Influenza Type A (PCR) (Not Detectd) Influenza Type B (PCR) (Not Detectd) RSV (PCR) (Not Detectd) SARS-CoV-2 (PCR) (Not Detectd) Disposition Clinical Impression: Respiratory failure Disposition: ADMITTED IP TO THIS HOSP Condition: Serious Referrals: Umesh Alvarez DO [Primary Care Provider] - 1-2 days Decision Time: 09:30
[2023-01-29 07:42] LABS: Anisocytosis Moderate; HGB 8.9 gm/dL (13.0-17.5); Hypochromasia Marked; MCH 32.6 pg (25.0-35.0); MCHC 30.6 g/dL (31.0-37.0); MCV 106.5 fL (80.0-100.0); Macrocytosis Marked; Mean Platelet Volume 7.6; Platelet Count 546 k/uL (150-450); Poikilocytosis Moderate; RBC 2.72 m/uL (4.30-5.90); RDW 20.6 % (11.5-15.5); WBC 18.7 k/uL (3.8-10.6)
[2023-01-29 07:50] LABS: VBG PH 7.3 (7.31-7.41)
--- NOTE | 2023-01-29 07:51 | XR ---
EXAMINATION TYPE: XR chest 1V portable DATE OF EXAM: 01/29/2023 HISTORY: Shortness of breath. COMPARISON: 01/26/2023 TECHNIQUE: Single view of the chest is submitted. FINDINGS: Demonstrated are scattered senescent parenchymal change. Basilar increased density is unchanged. Fluid within the right minor fissure in addition to the right costophrenic angle. Overall stable chest. The heart is stable. Hilar and mediastinal structures are within normal limits. Degenerative changes are seen of the dorsal spine. IMPRESSION: 1. Stable chest.
[2023-01-29 08:00] LABS: ALT 36 U/L (4-49); AST 30 U/L (17-59); African American GFR (CKD) 43 (>60 ml/min/1.73 sqM); Alkaline Phosphatase 102 U/L (38-126); Anion Gap 11 mmol/L; Blood Urea Nitrogen 55 mg/dL (9-20); Calcium 8.6 mg/dL (8.4-10.2); Carbon Dioxide 16 mmol/L (22-30); Chloride 110 mmol/L (98-107); Glucose 199 mg/dL (74-99); Magnesium 2.1 mg/dL (1.6-2.3); Non-African American GFR(CKD) 37 (>60 ml/min/1.73 sqM); Potassium 5.6 mmol/L (3.5-5.1); Sodium 137 mmol/L (137-145); Total Bilirubin 0.5 mg/dL (0.2-1.3); Total Protein 8.6 g/dL (6.3-8.2)
[2023-01-29 08:02] LABS: INR 1.3 (<1.2); Partial Thromboplastin Time 31.2 sec (22.0-30.0)
[2023-01-29 08:07] LABS: NT-Pro-B-Type Natriuretic Pept 25500 pg/mL
[2023-01-29] MEDS ORDERED: AZITHROMYCIN 500 MG in SODIUM CHLORIDE 0.9% 250 ML IVPB STA (09:05)
[2023-01-29] MEDS ORDERED: FUROSEMIDE 10 MG/ML 4 ML VIAL IV STA (09:45)
[2023-01-29 11:37] LABS: Eosinophils # (M) 0.19 k/uL (0-0.7); Metamyelocytes # (M) 0.37 k/uL (0); Metamyelocytes % 2 %; Myelocytes # (M) 0.37 k/uL (0); Myelocytes % 2 %; Nucleated Red Blood Cells 0 /100 WBC (0-0)
[2023-01-29 11:39] LABS: Band Neutrophils % 1 %; Lymphocytes # (M) 1.31 k/uL (1.0-4.8); Monocytes # (M) 0.56 k/uL (0-1.0); Neutrophils % (M) 86 %; Total Cells Counted 200
[2023-01-29] MEDS ORDERED: NALOXONE 0.4 MG/ML 1 ML VIAL IV PRN (12:26)
[2023-01-29] MEDS ORDERED: CALCIUM GLUCONATE IN NACL 1 GM in SALINE 1 100ML.BAG IVPB ONE (15:00)
[2023-01-29] MEDS ORDERED: ACETAMINOPHEN TAB 325 MG TAB PO PRN (15:20)
[2023-01-29] MEDS ORDERED: bisacodyL 5 MG TABLET.DR PO PRN (15:20)
[2023-01-29] MEDS ORDERED: ONDANSETRON 4 MG/2 ML VIAL IVP PRN (15:20)
[2023-01-29] MEDS ORDERED: MELATONIN 3 MG TABLET PO PRN (15:20)
[2023-01-29] MEDS ORDERED: IPRATROPIUM-ALBUTEROL 3 ML NEB INHALATION PRN (15:36)
[2023-01-29] MEDS ORDERED: DEXTROSE 50% SYRINGE 50 ML IVP PRN ×2 (15:37)
--- NOTE | 2023-01-29 15:58 | P.HPIM ---
History of Present Illness H&P Date: 01/29/23 Patient is a 72-year-old male with systolic CHF, A. fib on Eliquis, CAD status post stents, COPD, type 2 diabetes, and hypertension who presented from rehab with complaints of shortness of breath and chest discomfort. Patient has had 2 recent hospitalizations due to C. diff colitis with sepsis. His most recent discharge was on 01/27/23. On arrival to the ER this hospital stay he was in significant respiratory distress and was placed on rescue BiPAP. He was also noted to be tachycardic with a pulse of 117. In the ER he underwent extensive evaluation. Laboratory analysis included CBC, coags, VBG, CMP, troponin, and BNP which were remarkable for white blood cell count 18.7, hemoglobin 8.9, platelets 546, INR 1.3, pH 7.3, bicarbonate VBG 20, potassium 5.6, carbon dioxid e 16, BUN 55, creatinine 1.78, and BNP 25,500. Influenza A/B/RSV/COVID-19 testing was negative. Chest x-ray demonstrated fluid in the right minor fissure and blunting of the costophrenic angle. In the ER he was given a dose of Lasix IV push, Decadron 10 mg once, DuoNeb was not administered due to Covid test, and he received Zithromax 500 mg IV piggyback 1. Arrangements are made for admission. Patient seen and examined at bedside. He reports that he had shortness of breath starting this morning as well as some chest tightness. He states he continues to have some diarrhea but it is getting better. He is difficult to understand He Is on BiPAP and the Remainder of His History Is Gathered from the Chart. On Thorough Record Review from His Last Hospital Stay As Well As the Records Sent from His Extended Care Facility. He was sent in due to increased work of breathing. He was taking his dificid at the long term. Vital signs reviewed General: Ill appearing, moderate distress appears at stated age Derm: warm, dry Eyes: EOMI, no lid lag, anicteric sclera, pupils equal round reactive to light ENT: Nose and ears atraumatic Cardiovascular: S1S2 reg tachycardic, no murmur, positive posterior tibial pulse bilateral, 1+ edema bilateral lower extremities and upper extremities Lungs: Coarse breath sounds bilateral, 3 word conversational dyspnea, no accessory muscle use Abdominal: soft, nontender to palpation, no guarding, no appreciable organomegaly, normal bowel sounds Ext: no gross muscle atrophy, no contractures Neuro: CN II-XII grossly intact, no focal neuro deficits Psych: Alert, oriented, appropriate affect Assessment/Plan: Acute exacerbation of HFrEF, with ejection fraction 35-40% Acute hypoxic respiratory failure Resolving RAJAN on CKD stage IIIB Hyperkalemia Metabolic acidosis Acute on chronic Anemia of chronic disease related to CKD, baseline hemoglobin 8 Atrial fibrillation with rapid ventricular response CAD SIRS criteria-- suspect due to C diff, limit abx at this time, check stat UA. CXR without PNA. Blood cultures pending. - Influenza A/B/RSV/COVID-19 testing was negative -Hold potassium chloride, calcium gluconate 1 gram IVPB X 1 now, stat BMP -Continue with Lasix 40 mg IV push twice daily -Resume sodium bicarb 650 mg twice daily -Resume [id number] mg 3 times daily, metoprolol 25 mg 3 times daily. Patient is on a combination due to history of hypotension as well as atrial fibrillation with rapid ventricular response -Resume Plavix 75 mg daily, Eliquis 5 mg twice daily, amiodarone 400 mg daily - Lipitor 40 mg at night - consult cardio and pulm Recent C. diff colitis -Resume Dificid Type 2 DM, insulin dependent -Sliding-scale insulin -Levemir 10 units at night - hold Farxiga -Follow blood sugars -Glipizide on hold - A1C 6.3 01/11/23 Chronic: HTN HLD Imaging: EKG demonstrated atrial fibrillation with rapid ventricular response and right bundle branch block (noted prior) Chest x-ray is reviewed by myself demonstrates increased pulmonary vascular congestion with blunting of the right costophrenic angle and fluid in the right minor fissure. Data Review: As per HPI The patient is admitted with an anticipated greater than 2 midnight stay for evaluation of SAW FEEDER exacerbation. Surrogate decision-maker: Court appointed Guardian CODE STATUS: Full by default DVT prophylaxis: Eliquis Anticipated discharge date: Pending Clincial Course Anticipated discharge place: Pending Clincial Course This dictation was prepared using [employer] voice recognition software. Though every attempt is made to correct errors during dictation some may still exist. Past Medical History Past Medical History: Atrial Fibrillation, Coronary Artery Disease (CAD), Heart Failure, Diabetes Mellitus, Hyperlipidemia, Hypertension Additional Past Medical History / Comment(s): Gout. Hx UTI, CKD, Hx COVID, C diff colitis History of Any Multi-Drug Resistant Organisms: MRSA Date of last positivie culture/infection: 01/21/23 MDRO Source:: Left Foot Past Surgical History: Heart Catheterization With Stent, Orthopedic Surgery, Pacemaker Additional Past Surgical History / Comment(s): 2 STENTS DEC 2020, left hip surgery X2. Past Anesthesia/Blood Transfusion Reactions: No Reported Reaction, Postoperative Nausea & Vomiting (PONV) Additional Past Anesthesia/Blood Transfusion Reaction / Comment(s): UNKNOWN FAMILY HX. Date of Last Stent Placement:: DEC 2020 Type of Cardiac Device: Unknown Device Placement Date:: Unknown Past Psychological History: Anxiety, Depression Smoking Status: Former smoker Past Alcohol Use History: None Reported Past Drug Use History: None Reported - Past Family History Mother Family Medical History: Cancer Brother(s) Family Medical History: Cancer Additional Family Medical History / Comment(s): Lung cancer. Father History Unknown: Yes Family Medical History: Hyperlipidemia Medications and Allergies Home Medications Medication Instructions Recorded Confirmed Type Ferrous Sulfate [Iron] 325 mg PO DAILY@79910/21/20 01/29/23 History Sertraline HCl [Zoloft] 50 mg PO HS@209910/21/20 01/29/23 History allopurinoL [Zyloprim] 100 mg PO DAILY@79910/21/20 01/29/23 History risperiDONE [RisperDAL] 0.5 mg PO HS@209910/21/20 01/29/23 History Apixaban [Eliquis] 5 mg PO BID@0800,1700 05/09/21 01/29/23 History Thiamine HCl [Vitamin B-1] 100 mg PO DAILY@0800 05/09/21 01/29/23 History Atorvastatin [Lipitor] 40 mg PO HS@209910/16/22 01/29/23 History Clopidogrel [Plavix] 75 mg PO DAILY@79910/16/22 01/29/23 History Lidocaine 5% Patch [Lidoderm 5% 1 patch TRANSDERM DAILY@00 10/17/22 01/29/23 History Patch] Cholecalciferol [Vitamin D3 (25 50 mcg PO DAILY@79912/14/22 01/29/23 History Mcg = 1000 Iu)] Cyclobenzaprine [Flexeril] 5 mg PO TID@0600,1400,2200 12/14/22 01/29/23 History Furosemide [Lasix] 40 mg PO DAILY@1400 12/14/22 01/29/23 History Ipratropium-Albuterol Nebulize 3 ml INHALATION RT-QID@00,06,12,18 12/14/22 01/29/23 History [Duoneb 0.5 mg-3 mg/3 ml Soln] Magnesium Hydroxide [Milk of 7,200 mg PO Q48H PRN 12/14/22 01/29/23 History Magnesia Concentrate] Na Phos,M-B/Na Phos,Di-Ba [Fleet 133 ml RECTAL DAILY PRN 12/14/22 01/29/23 History Adult] Potassium Chloride ER [K-Dur 20] 20 meq PO BID@0800,1700 12/14/22 01/29/23 History Sodium Bicarbonate Tab 650 mg PO BID@0800,1700 12/14/22 01/29/23 History bisacodyL [Dulcolax] 10 mg RECTAL DAILY PRN 12/14/22 01/29/23 History oxyBUTYnin chloride [oxyBUTYnin 5 mg PO DAILY@0800 12/14/22 01/29/23 History chloride ER] Budesonide [Pulmicort] 1 mg INHALATION RT-BID@0800,1700 12/27/22 01/29/23 History Dapagliflozin Propanediol [Farxiga] 10 mg PO DAILY@0800 12/27/22 01/29/23 History Lactobacillus Acidophilus 1 cap PO DAILY@0800 12/27/22 01/29/23 History [Acidophilus Probiotic] Pantoprazole [Protonix] 40 mg PO DAILY@0600 12/27/22 01/29/23 History Acetaminophen Tab [Tylenol] 650 mg PO Q6HR PRN tab 01/06/23 01/29/23 Rx Glucerna Shake 237 ml PO TID@0800,1200,1700 01/21/23 01/29/23 History INSULIN ASPART (NovoLOG) [NovoLOG See Protocol SQ 01/21/23 01/29/23 History (formulary)] ACHS@07,11,1630,2130 Insulin Detemir (Levemir) [Levemir] 10 unit SQ HS@2100 01/21/23 01/29/23 History Ipratropium-Albuterol Nebulize 3 ml INHALATION RT-Q6H PRN 01/21/23 01/29/23 History [Duoneb 0.5 mg-3 mg/3 ml Soln] Multivit-Min/FA/Lycopen/Lutein 1 tab PO DAILY@0800 01/21/23 01/29/23 History [Centrum Silver Tablet] Amiodarone [Cordarone] 400 mg PO DAILY tab 01/27/23 01/29/23 Rx Cholestyramine (with Sugar) 4 gm PO BID@1100,1800 PRN packet 01/27/23 01/29/23 Rx [Questran Packet] Fidaxomicin [Dificid] 200 mg PO BID 7 Days tab 01/27/23 01/29/23 Rx Metoprolol Tartrate [Lopressor] 25 mg PO TID@0600,1400,2200 tab 01/27/23 01/29/23 Rx Midodrine [ProAmatine] 10 mg PO AC-TID tab 01/27/23 01/29/23 Rx Allergies Allergy/AdvReac Type Severity Reaction Status Date / Time No Known Allergies Allergy Verified 01/29/23 06:57 Physical Exam Osteopathic Statement: *. No significant issues noted on an osteopathic structural exam other than those noted in the History and Physical/Consult. Vitals: Vital Signs Temp Pulse Resp BP Pulse Ox FiO2 01/29/23 15:00 107 H 19 117/82 100 40 01/29/23 14:00 98 17 112/87 100 01/29/23 13:00 100 01/29/23 11:51 96 17 117/88 100 01/29/23 11:39 40 01/29/23 09:38 110 H 22 116/87 99 01/29/23 08:21 109 H 24 108/78 100 01/29/23 07:59 40 01/29/23 07:41 112 H 30 H 133/103 96 01/29/23 06:43 99.2 F 117 H 30 H 124/103 97 Intake and Output 01/29/23 01/29/23 01/29/23 06:59 14:59 22:59 Other: Weight 136.078 kg Results CBC & Chem 7: 01/29/23 07:33 01/29/23 07:33 Labs: Abnormal Lab Results - Last 24 Hours (Table) 01/29/23 01/29/23 01/29/23 Range/Units 07:33 07:33 07:33 WBC 18.7 H (3.8-10.6) k/uL RBC 2.72 L (4.30-5.90) m/uL Hgb 8.9 L (13.0-17.5) gm/dL Hct 29.0 L (39.0-53.0) % MCV 106.5 H (80.0-100.0) fL MCHC 30.6 L (31.0-37.0) g/dL RDW 20.6 H (11.5-15.5) % Plt Count 546 H (150-450) k/uL Neutrophils # (Manual) 16.20 H (1.3-7.7) k/uL Metamyelocytes # (Man) 0.37 H (0) k/uL Myelocytes # (Manual) 0.37 H (0) k/uL Macrocytosis Marked A PT 14.0 H (10.0-12.5) sec INR 1.3 H (<1.2) APTT 31.2 H (22.0-30.0) sec VBG pH (7.31-7.41) VBG HCO3 (24-28) mmol/L Potassium 5.6 H (3.5-5.1) mmol/L Chloride 110 H (98-107) mmol/L Carbon Dioxide 16 L (22-30) mmol/L BUN 55 H (9-20) mg/dL Creatinine 1.78 H (0.66-1.25) mg/dL Glucose 199 H (74-99) mg/dL Total Protein 8.6 H (6.3-8.2) g/dL Albumin 3.0 L (3.5-5.0) g/dL 01/29/23 Range/Units 07:33 WBC (3.8-10.6) k/uL RBC (4.30-5.90) m/uL Hgb (13.0-17.5) gm/dL Hct (39.0-53.0) % MCV (80.0-100.0) fL MCHC (31.0-37.0) g/dL RDW (11.5-15.5) % Plt Count (150-450) k/uL Neutrophils # (Manual) (1.3-7.7) k/uL Metamyelocytes # (Man) (0) k/uL Myelocytes # (Manual) (0) k/uL Macrocytosis PT (10.0-12.5) sec INR (<1.2) APTT (22.0-30.0) sec VBG pH 7.30 L (7.31-7.41) VBG HCO3 20 L (24-28) mmol/L Potassium (3.5-5.1) mmol/L Chloride (98-107) mmol/L Carbon Dioxide (22-30) mmol/L BUN (9-20) mg/dL Creatinine (0.66-1.25) mg/dL Glucose (74-99) mg/dL Total Protein (6.3-8.2) g/dL Albumin (3.5-5.0) g/dL
[2023-01-29] MEDS: METOPROLOL TARTRATE 25 MG TAB PO SCH ×2 (16:16→21:31)
[2023-01-29 17:17] LABS: Glucose,Whole Blood 194 mg/dL (70-110)
[2023-01-29] MEDS: SODIUM BICARBONATE TAB 650 MG TAB PO SCH (17:20)
[2023-01-29] MEDS: APIXABAN 5 MG TAB PO SCH (17:20)
[2023-01-29] MEDS: MIDODRINE 5 MG TAB PO SCH (17:20)
[2023-01-29] MEDS: INSULIN ASPART (NovoLOG) 100 UNIT/ML VIAL SQ SCH ×2 (17:20→20:40)
[2023-01-29] MEDS ORDERED: IPRATROPIUM-ALBUTEROL 3 ML NEB INHALATION SCH (18:00)
[2023-01-29] MEDS: BUDESONIDE 1 MG/2 ML NEBU INHALATION SCH (19:44)
[2023-01-29 20:38] LABS: Glucose,Whole Blood 164 mg/dL (70-110)
[2023-01-29] MEDS: FIDAXOMICIN 200 MG TABLET PO SCH (20:39)
[2023-01-29] MEDS: risperiDONE 0.5 MG TAB PO SCH (20:39)
[2023-01-29] MEDS: ATORVASTATIN 40 MG TAB PO SCH (20:40)
[2023-01-29] MEDS: SERTRALINE 50 MG TAB PO SCH (20:40)
[2023-01-29 21:18] LABS: Appearance,Urine Cloudy (Clear); Bacteria,Urine Many /hpf; Bilirubin,Urine Negative (Negative); Blood,Urine Trace (Negative); Color,Urine Yellow; Glucose,Urine (UA) Negative (Negative); Hyaline Casts,Urine 1 /lpf (0-2); Ketones,Urine Negative (Negative); Leukocyte Esterase,Urine Large (Negative); Mucus,Urine Rare /hpf; Nitrite,Urine Negative (Negative); PH, Urine 7.5 (5.0-8.0); Protein,Urine 1+ (Negative); RBC,Urine 2 /hpf (0-5); Specific Gravity,Urine 1.015 (1.001-1.035); Triple Phosphate Crystal,Urine Occasional /hpf; Urobilinogen,Urine <2.0 mg/dL (<2.0); WBC,Urine 62 /hpf (0-5)
[2023-01-30] MEDS: METOPROLOL TARTRATE 25 MG TAB PO SCH ×3 (06:20→21:59)
[2023-01-30] MEDS: PANTOPRAZOLE 40 MG TABLET PO SCH (06:20)
[2023-01-30] MEDS: BUDESONIDE 1 MG/2 ML NEBU INHALATION SCH ×2 (07:38→19:40)
[2023-01-30] MEDS: IPRATROPIUM-ALBUTEROL 3 ML NEB INHALATION SCH ×4 (07:38→19:40)
[2023-01-30] MEDS: OXYBUTYNIN XL 5 MG TAB.ER.24 PO SCH (08:44)
[2023-01-30] MEDS: THIAMINE 100 MG TAB PO SCH (08:44)
[2023-01-30] MEDS: FERROUS SULFATE 325 MG TAB PO SCH (08:44)
[2023-01-30] MEDS: SODIUM BICARBONATE TAB 650 MG TAB PO SCH ×2 (08:44→15:11)
[2023-01-30] MEDS: INSULIN DETEMIR (LEVEMIR) 100 UNIT/ML SYR SQ SCH (08:44)
[2023-01-30] MEDS: CLOPIDOGREL 75 MG TAB PO SCH (08:44)
[2023-01-30] MEDS: allopurinoL 100 MG TAB PO SCH (08:44)
[2023-01-30] MEDS: AMIODARONE 200 MG TAB PO SCH (08:44)
[2023-01-30] MEDS: FIDAXOMICIN 200 MG TABLET PO SCH ×2 (08:44→21:59)
[2023-01-30] MEDS: APIXABAN 5 MG TAB PO SCH ×2 (08:44→15:11)
[2023-01-30] MEDS: MIDODRINE 5 MG TAB PO SCH ×3 (08:44→17:28)
[2023-01-30] MEDS: INSULIN ASPART (NovoLOG) 100 UNIT/ML VIAL SQ SCH ×4 (08:45→21:59)
--- NOTE | 2023-01-30 10:40 | P.CRDCN ---
History of Present Illness Consult date: 01/30/23 Chief complaint: Shortness of breath History of present illness: This is a 72-year-old gentleman who was brought from extended care facility to [facility] for further evaluation of shortness of breath. The patient does have a past medical history significant for coronary artery disease with a prior revascularization internal stenting as well as ischemic cardiomyopathy with known ejection fraction between 35-40% as well as hypertension and dyslipidemia and chronic anemia and chronic kidney disease and chronic atrial fibrillation. The patient was brought with change in mental status and also with shortness of breath with exertion which has progressed associated with edema in the upper and lower extremities. No pain in the chest and no dizziness or lightheadedness and no feeling of heart racing or fluttering and no presyncope or syncope. The patient was not receiving any oral diuretics. He had multiple hospital admissions with heart failure. During his hospital stay he underwent an EKG which showed underlying atrial fibrillation with RVR previously and in the proBNP came in to be elevated at 25,000 and chest x-ray showed chronic changes only. The patient is in failure clearly. He is hypoxic. He does have upper and lower extremities significant pitting edema noted. His kidney function is abnormal but that has been stable does have chronic kidney disease and his hemoglobin is abnormal and has been stable and chronic as well. The examination is remarkable for severe upper and lower extremity is pitting edema. He does have also diminished breathing sounds bilaterally. Echo from September 2022 showed impaired LV function was EF between 35-40% Assessment Heart failure with reduced ejection fraction with right and left failure CAD with a prior stenting Ischemic cardiomyopathy Renal failure appeared to be chronic Anemia appears to be chronic Multiple conditions and permanent atrial fibrillation Plan Start the patient on IV diuretics Monitor the kidney function and electrolytes No reason to repeat the echocardiogram at this point Follow-up with the patient Past Medical History Past Medical History: Atrial Fibrillation, Coronary Artery Disease (CAD), Heart Failure, Diabetes Mellitus, Hyperlipidemia, Hypertension Additional Past Medical History / Comment(s): Gout. Hx UTI, CKD, Hx COVID, C diff colitis History of Any Multi-Drug Resistant Organisms: MRSA Date of last positivie culture/infection: 01/21/23 MDRO Source:: Left Foot Past Surgical History: Heart Catheterization With Stent, Orthopedic Surgery, Pacemaker Additional Past Surgical History / Comment(s): 2 STENTS DEC 2020, left hip surgery X2. Past Anesthesia/Blood Transfusion Reactions: No Reported Reaction, Postoperative Nausea & Vomiting (PONV) Additional Past Anesthesia/Blood Transfusion Reaction / Comment(s): UNKNOWN FAMILY HX. Date of Last Stent Placement:: DEC 2020 Type of Cardiac Device: Unknown Device Placement Date:: Unknown Past Psychological History: Anxiety, Depression Smoking Status: Former smoker Past Alcohol Use History: None Reported Past Drug Use History: None Reported - Past Family History Mother Family Medical History: Cancer Brother(s) Family Medical History: Cancer Additional Family Medical History / Comment(s): Lung cancer. Father History Unknown: Yes Family Medical History: Hyperlipidemia Medications and Allergies Home Medications Medication Instructions Recorded Confirmed Type Ferrous Sulfate [Iron] 325 mg PO DAILY@79910/21/20 01/29/23 History Sertraline HCl [Zoloft] 50 mg PO HS@209910/21/20 01/29/23 History allopurinoL [Zyloprim] 100 mg PO DAILY@0810/21/20 01/29/23 History risperiDONE [RisperDAL] 0.5 mg PO HS@209910/21/20 01/29/23 History Apixaban [Eliquis] 5 mg PO BID@0800,1700 05/09/21 01/29/23 History Thiamine HCl [Vitamin B-1] 100 mg PO DAILY@0800 05/09/21 01/29/23 History Atorvastatin [Lipitor] 40 mg PO HS@209910/16/22 01/29/23 History Clopidogrel [Plavix] 75 mg PO DAILY@0800 10/16/22 01/29/23 History Lidocaine 5% Patch [Lidoderm 5% 1 patch TRANSDERM DAILY@79910/17/22 01/29/23 History Patch] Cholecalciferol [Vitamin D3 (25 50 mcg PO DAILY@0800 12/14/22 01/29/23 History Mcg = 1000 Iu)] Cyclobenzaprine [Flexeril] 5 mg PO TID@0600,1400,2200 12/14/22 01/29/23 History Furosemide [Lasix] 40 mg PO DAILY@1400 12/14/22 01/29/23 History Ipratropium-Albuterol Nebulize 3 ml INHALATION RT-QID@00,06,12,18 12/14/2201/07 History [Duoneb 0.5 mg-3 mg/3 ml Soln] Magnesium Hydroxide [Milk of 7,200 mg PO Q48H PRN 12/14/22 01/29/23 History Magnesia Concentrate] Na Phos,M-B/Na Phos,Di-Ba [Fleet 133 ml RECTAL DAILY PRN 12/14/22 01/29/23 History Adult] Potassium Chloride ER [K-Dur 20] 20 meq PO BID@0800,1700 12/14/22 01/29/23 History Sodium Bicarbonate Tab 650 mg PO BID@0800,1700 12/14/22 01/29/23 History bisacodyL [Dulcolax] 10 mg RECTAL DAILY PRN 12/14/22 01/29/23 History oxyBUTYnin chloride [oxyBUTYnin 5 mg PO DAILY@0800 12/14/22 01/29/23 History chloride ER] Budesonide [Pulmicort] 1 mg INHALATION RT-BID@0800,1700 12/27/22 01/29/23 History Dapagliflozin Propanediol [Farxiga] 10 mg PO DAILY@0800 12/27/22 01/29/23 History Lactobacillus Acidophilus 1 cap PO DAILY@0800 12/27/22 01/29/23 History [Acidophilus Probiotic] Pantoprazole [Protonix] 40 mg PO DAILY@0600 12/27/22 01/29/23 History Acetaminophen Tab [Tylenol] 650 mg PO Q6HR PRN tab 01/06/23 01/29/23 Rx Glucerna Shake 237 ml PO TID@0800,1200,1700 01/21/23 01/29/23 History INSULIN ASPART (NovoLOG) [NovoLOG See Protocol SQ 01/21/23 01/29/23 History (formulary)] ACHS@07,11,1630,2130 Insulin Detemir (Levemir) [Levemir] 10 unit SQ HS@2100 01/21/23 01/29/23 History Ipratropium-Albuterol Nebulize 3 ml INHALATION RT-Q6H PRN 01/21/23 01/29/23 History [Duoneb 0.5 mg-3 mg/3 ml Soln] Multivit-Min/FA/Lycopen/Lutein 1 tab PO DAILY@0800 01/21/23 01/29/23 History [Centrum Silver Tablet] Amiodarone [Cordarone] 400 mg PO DAILY tab 01/27/23 01/29/23 Rx Cholestyramine (with Sugar) 4 gm PO BID@1100,1800 PRN packet 01/27/23 01/29/23 Rx [Questran Packet] Fidaxomicin [Dificid] 200 mg PO BID 7 Days tab 01/27/23 01/29/23 Rx Metoprolol Tartrate [Lopressor] 25 mg PO TID@0600,1400,2200 tab 01/27/23 01/29/23 Rx Midodrine [ProAmatine] 10 mg PO AC-TID tab 01/27/23 01/29/23 Rx Allergies Allergy/AdvReac Type Severity Reaction Status Date / Time No Known Allergies Allergy Verified 01/29/23 06:57 Physical Exam Vitals: Vital Signs Temp Pulse Pulse Resp BP BP Pulse Ox 01/30/23 07:46 100 01/30/23 07:38 104 H 94 L 01/30/23 07:07 98.0 F 110 H 23 106/73 100 01/30/23 06:07 92 15 111/71 100 01/30/23 06:00 95 16 105/68 01/30/23 05:00 93 20 101/65 01/30/23 04:00 92 18 110/74 01/30/23 03:04 01/30/23 03:00 100 18 109/72 100 01/30/23 02:00 102 H 18 106/72 100 01/30/23 01:00 101 H 15 110/79 100 01/30/23 00:39 01/30/23 00:00 94 18 103/74 100 01/29/23 22:00 95 16 113/78 100 01/29/23 21:00 100 15 116/79 100 01/29/23 20:00 104 H 18 120/81 100 01/29/23 19:44 01/29/23 19:00 101 H 17 118/91 100 01/29/23 17:06 98 17 122/89 100 01/29/23 16:23 01/29/23 16:08 100 01/29/23 15:00 107 H 19 117/82 100 01/29/23 14:00 98 17 112/87 100 01/29/23 13:00 100 01/29/23 11:51 96 17 117/88 100 01/29/23 11:39 FiO2 01/30/23 07:46 01/30/23 07:38 01/30/23 07:07 01/30/23 06:07 01/30/23 06:00 01/30/23 05:00 01/30/23 04:00 01/30/23 03:04 40 01/30/23 03:00 01/30/23 02:00 01/30/23 01:00 01/30/23 00:39 40 01/30/23 00:00 01/29/23 22:00 01/29/23 21:00 01/29/23 20:00 01/29/23 19:44 40 01/29/23 19:00 01/29/23 17:06 01/29/23 16:23 40 01/29/23 16:08 01/29/23 15:00 40 01/29/23 14:00 01/29/23 13:00 01/29/23 11:51 01/29/23 11:39 40 Intake and Output 01/29/23 01/30/23 01/30/23 22:59 06:59 14:59 Output Total 750 Balance -750 Output: Urine 750 Results 01/29/23 07:33 01/29/23 07:33 Cardiac Enzymes 01/29/23 Range/Units 07:33 Troponin I <0.012 (0.000-0.034) ng/mL Current Medications Generic Name Dose Route Start Last Admin Trade Name Freq PRN Reason Stop Dose Admin Acetaminophen 650 mg 01/29/23 15:20 Acetaminophen Tab 325 Mg Tab PO Q6HR PRN Mild Pain or Fever > 100.5 Hydrocodone Bitart/Acetaminophen 1 each 01/29/23 15:20 Hydrocodone/Apap 5-325mg 1 Each Tab PO Q4HR PRN Moderate Pain (Scale 4 to 6) Albuterol/Ipratropium 3 ml 01/29/23 15:36 Ipratropium-Albuterol 3 Ml Neb INHALATION RT-Q6H PRN Shortness Of Breath Albuterol/Ipratropium 3 ml 01/30/23 08:00 01/30/23 07:38 Ipratropium-Albuterol 3 Ml Neb INHALATION 3 ml RT-QID YESSY Administration Allopurinol 100 mg 01/30/23 08:00 01/30/23 08:44 Allopurinol 100 Mg Tab PO 100 mg DAILY@0800 [facility] Administration Amiodarone HCl 400 mg 01/30/23 09:00 01/30/23 08:44 Amiodarone 200 Mg Tab PO 400 mg DAILY YESSY Administration Apixaban 5 mg 01/29/23 17:00 01/30/23 08:44 Apixaban 5 Mg Tab PO 5 mg BID@0800,1700 [facility] Administration Protocol Atorvastatin Calcium 40 mg 01/29/23 21:00 01/29/23 20:40 Atorvastatin 40 Mg Tab PO 40 mg HS@2100 [facility] Administration Bisacodyl 5 mg 01/29/23 15:20 Bisacodyl 5 Mg Tablet.Dr PO DAILY PRN Constipation Budesonide 1 mg 01/29/23 17:00 01/30/23 07:38 Budesonide 1 Mg/2 Ml Nebu INHALATION 1 mg RT-BID@0800,1700 [facility] Administration Clopidogrel Bisulfate 75 mg 01/30/23 08:00 01/30/23 08:44 Clopidogrel 75 Mg Tab PO 75 mg DAILY@0800 [facility] Administration Dextrose/Water 25 ml 01/29/23 15:37 Dextrose 50% Syringe 50 Ml IVP PER PROTOCOL PRN Hypoglycemia Protocol Dextrose/Water 50 ml 01/29/23 15:37 Dextrose 50% Syringe 50 Ml IVP PER PROTOCOL PRN Hypoglycemia Protocol Ferrous Sulfate 325 mg 01/30/23 08:00 01/30/23 08:44 Ferrous Sulfate 325 Mg Tab PO 325 mg DAILY@0800 [facility] Administration Fidaxomicin 200 mg 01/29/23 21:00 01/30/23 08:44 Fidaxomicin 200 Mg Tablet PO 02/08/23 21:01 200 mg BID YESSY Administration Insulin Aspart 0 unit 01/29/23 17:30 01/30/23 08:45 Insulin Aspart (Novolog) 100 Unit/Ml Vial SQ Not Given ACHS [facility] Protocol Insulin Detemir 10 unit 01/30/23 07:00 01/30/23 08:44 Insulin Detemir (Levemir) 100 Unit/Ml Syr SQ 10 unit DAILY@0700 [facility] Administration Melatonin 3 mg 01/29/23 15:20 Melatonin 3 Mg Tablet PO HS PRN Insomnia Metoprolol Tartrate 25 mg 01/29/23 16:00 01/30/23 06:20 Metoprolol Tartrate 25 Mg Tab PO 25 mg TID@0600,1400,2200 YESSY Administration Midodrine 10 mg 01/29/23 17:30 01/30/23 08:44 Midodrine 5 Mg Tab PO Not Given AC-TID YESSY Naloxone HCl 0.2 mg 01/29/23 12:26 Naloxone 0.4 Mg/Ml 1 Ml Vial IV Q2M PRN Opioid Reversal Ondansetron HCl 4 mg 01/29/23 15:20 Ondansetron 4 Mg/2 Ml Vial IVP Q8HR PRN Nausea And Vomiting Oxybutynin Chloride 5 mg 01/30/23 08:00 01/30/23 08:44 Oxybutynin Xl 5 Mg Tab.Er.24 PO 5 mg DAILY@0800 YESSY Administration Pantoprazole Sodium 40 mg 01/30/23 06:00 01/30/23 06:20 Pantoprazole 40 Mg Tablet PO 40 mg DAILY@0600 YESSY Administration Risperidone 0.5 mg 01/29/23 21:00 01/29/23 20:39 Risperidone 0.5 Mg Tab PO 0.5 mg HS@2100 YESSY Administration Sertraline HCl 50 mg 01/29/23 21:00 01/29/23 20:40 Sertraline 50 Mg Tab PO 50 mg HS@2100 YESSY Administration Sodium Bicarbonate 650 mg 01/29/23 17:00 01/30/23 08:44 Sodium Bicarbonate Tab 650 Mg Tab PO 650 mg BID@0800,1700 YESSY Administration Thiamine HCl 100 mg 01/30/23 08:00 01/30/23 08:44 Thiamine 100 Mg Tab PO 100 mg DAILY@0800 YESSY Administration Intake and Output 01/29/23 01/30/23 01/30/23 22:59 06:59 14:59 Output Total 750 Balance -750 Output: Urine 750 01/29/23 07:33 01/29/23 07:33
[2023-01-30] MEDS: FUROSEMIDE 10 MG/ML 2 ML VIAL IV SCH ×2 (10:46→22:00)
[2023-01-30 11:39] LABS: Glucose,Whole Blood 105 mg/dL (70-110)
[2023-01-30 13:03] LABS: Anisocytosis Moderate; Hypochromasia Marked; MCH 32.3 pg (25.0-35.0); MCHC 29.7 g/dL (31.0-37.0); MCV 108.6 fL (80.0-100.0); Macrocytosis Marked; Mean Platelet Volume 7.3; Platelet Count 427 k/uL (150-450); Poikilocytosis Moderate; RBC 2.48 m/uL (4.30-5.90); RDW 20.7 % (11.5-15.5); WBC 15.2 k/uL (3.8-10.6)
[2023-01-30 13:37] LABS: African American GFR (CKD) 48 (>60 ml/min/1.73 sqM); Anion Gap 11 mmol/L; Blood Urea Nitrogen 56 mg/dL (9-20); Calcium 8.5 mg/dL (8.4-10.2); Carbon Dioxide 16 mmol/L (22-30); Chloride 109 mmol/L (98-107); Glucose 150 mg/dL (74-99); Magnesium 2.1 mg/dL (1.6-2.3); Non-African American GFR(CKD) 41 (>60 ml/min/1.73 sqM); Phosphorus 4.8 mg/dL (2.5-4.5); Potassium 4.7 mmol/L (3.5-5.1); Sodium 136 mmol/L (137-145)
--- NOTE | 2023-01-30 15:16 | P.CNPUL ---
History of Present Illness Consult date: 01/30/23 Requesting physician: Birgit Sky Reason for consult: dyspnea, hypoxemia Chief complaint: Shortness of breath History of present illness: This is a 72-year-old male patient who is a poor historian who is residing in an extended care facility who was brought in by EMS yesterday for shortness of breath. He does have a history of chronic obstructive pulmonary disease, congestive heart failure, chronic kidney disease, atrial fibrillation, diabetes mellitus, hypertension, hyperlipidemia, coronary disease with previous stent placement, anxiety/depression, former smoker. He was just discharged from here on 01/27/2023. Chest x-ray reveals a stable chest with basilar densities which were unchanged compared to 01/26/2023. Count 15.2. Hemoglobin 8.0. Platelets 427. Sodium 136. Potassium 4.7. Bicarb 16. BUN 56. Creatinine 1.63. Glucose 150. Urinalysis positive for many bacteria large leukocyte esterase and high WBCs. He is seen today in consultation on the selective care unit. He is currently resting comfortably in bed. Awake and alert. Underwent unable to give much history. He really required BiPAP support. He is currently on 4 L nasal cannula with O2 saturations up to 99%. Slightly tachycardic. He is initiated on DuoNeb inhalations, Pulmicort inhalations. IV diuretics. Anticoagulated with Eliquis. Review of Systems ROS unobtainable: due to mental status Past Medical History Past Medical History: Atrial Fibrillation, Coronary Artery Disease (CAD), Heart Failure, Diabetes Mellitus, Hyperlipidemia, Hypertension Additional Past Medical History / Comment(s): Gout. Hx UTI, CKD, Hx COVID, C diff colitis History of Any Multi-Drug Resistant Organisms: MRSA Date of last positivie culture/infection: 01/21/23 MDRO Source:: Left Foot Past Surgical History: Heart Catheterization With Stent, Orthopedic Surgery, Pacemaker Additional Past Surgical History / Comment(s): 2 STENTS DEC 2020, left hip surgery X2. Past Anesthesia/Blood Transfusion Reactions: No Reported Reaction, Postoperative Nausea & Vomiting (PONV) Additional Past Anesthesia/Blood Transfusion Reaction / Comment(s): UNKNOWN FAMILY HX. Date of Last Stent Placement:: DEC 2020 Type of Cardiac Device: Unknown Device Placement Date:: Unknown Past Psychological History: Anxiety, Depression Smoking Status: Former smoker Past Alcohol Use History: None Reported Past Drug Use History: None Reported - Past Family History Mother Family Medical History: Cancer Brother(s) Family Medical History: Cancer Additional Family Medical History / Comment(s): Lung cancer. Father History Unknown: Yes Family Medical History: Hyperlipidemia Medications and Allergies Home Medications Medication Instructions Recorded Confirmed Type Ferrous Sulfate [Iron] 325 mg PO DAILY@0800 10/21/20 01/29/23 History Sertraline HCl [Zoloft] 50 mg PO HS@209910/21/20 01/29/23 History allopurinoL [Zyloprim] 100 mg PO DAILY@0800 10/21/20 01/29/23 History risperiDONE [RisperDAL] 0.5 mg PO HS@209910/21/20 01/29/23 History Apixaban [Eliquis] 5 mg PO BID@0800,1700 05/09/21 01/29/23 History Thiamine HCl [Vitamin B-1] 100 mg PO DAILY@0800 05/09/21 01/29/23 History Atorvastatin [Lipitor] 40 mg PO HS@209910/16/22 01/29/23 History Clopidogrel [Plavix] 75 mg PO DAILY@0800 10/16/22 01/29/23 History Lidocaine 5% Patch [Lidoderm 5% 1 patch TRANSDERM DAILY@0810/17/22 01/29/23 History Patch] Cholecalciferol [Vitamin D3 (25 50 mcg PO DAILY@0800 12/14/22 01/29/23 History Mcg = 1000 Iu)] Cyclobenzaprine [Flexeril] 5 mg PO TID@0600,1400,2200 12/14/22 01/29/23 History Furosemide [Lasix] 40 mg PO DAILY@1400 12/14/22 01/29/23 History Ipratropium-Albuterol Nebulize 3 ml INHALATION RT-QID@00,06,12,18 12/14/22 01/29/23 History [Duoneb 0.5 mg-3 mg/3 ml Soln] Magnesium Hydroxide [Milk of 7,200 mg PO Q48H PRN 12/14/22 01/29/23 History Magnesia Concentrate] Na Phos,M-B/Na Phos,Di-Ba [Fleet 133 ml RECTAL DAILY PRN 12/14/22 01/29/23 History Adult] Potassium Chloride ER [K-Dur 20] 20 meq PO BID@0800,1700 12/14/22 01/29/23 History Sodium Bicarbonate Tab 650 mg PO BID@0800,1700 12/14/22 01/29/23 History bisacodyL [Dulcolax] 10 mg RECTAL DAILY PRN 12/14/22 01/29/23 History oxyBUTYnin chloride [oxyBUTYnin 5 mg PO DAILY@0800 12/14/22 01/29/23 History chloride ER] Budesonide [Pulmicort] 1 mg INHALATION RT-BID@0800,1700 12/27/22 01/29/23 History Dapagliflozin Propanediol [Farxiga] 10 mg PO DAILY@0800 12/27/22 01/29/23 History Lactobacillus Acidophilus 1 cap PO DAILY@0800 12/27/22 01/29/23 History [Acidophilus Probiotic] Pantoprazole [Protonix] 40 mg PO DAILY@0600 12/27/22 01/29/23 History Acetaminophen Tab [Tylenol] 650 mg PO Q6HR PRN tab 01/06/23 01/29/23 Rx Glucerna Shake 237 ml PO TID@0800,1200,1700 01/21/23 01/29/23 History INSULIN ASPART (NovoLOG) [NovoLOG See Protocol SQ 01/21/23 01/29/23 History (formulary)] ACHS@07,11,1630,2130 Insulin Detemir (Levemir) [Levemir] 10 unit SQ HS@2100 01/21/23 01/29/23 History Ipratropium-Albuterol Nebulize 3 ml INHALATION RT-Q6H PRN 01/21/23 01/29/23 History [Duoneb 0.5 mg-3 mg/3 ml Soln] Multivit-Min/FA/Lycopen/Lutein 1 tab PO DAILY@0800 01/21/23 01/29/23 History [Centrum Silver Tablet] Amiodarone [Cordarone] 400 mg PO DAILY tab 01/27/23 01/29/23 Rx Cholestyramine (with Sugar) 4 gm PO BID@1100,1800 PRN packet 01/27/23 01/29/23 Rx [Questran Packet] Fidaxomicin [Dificid] 200 mg PO BID 7 Days tab 01/27/23 01/29/23 Rx Metoprolol Tartrate [Lopressor] 25 mg PO TID@0600,1400,2200 tab 01/27/23 01/29/23 Rx Midodrine [ProAmatine] 10 mg PO AC-TID tab 01/27/23 01/29/23 Rx Allergies Allergy/AdvReac Type Severity Reaction Status Date / Time No Known Allergies Allergy Verified 01/29/23 06:57 Physical Exam Vitals: Vital Signs Temp Pulse Pulse Resp BP BP Pulse Ox 01/30/23 15:08 110 H 01/30/23 14:57 112 H 99 01/30/23 08:00 98.2 F 117 H 18 117/65 96 01/30/23 07:46 100 01/30/23 07:38 104 H 94 L 01/30/23 07:07 98.0 F 110 H 23 106/73 100 01/30/23 06:07 92 15 111/71 100 01/30/23 06:00 95 16 105/68 01/30/23 05:00 93 20 101/65 01/30/23 04:00 92 18 110/74 01/30/23 03:04 01/30/23 03:00 100 18 109/72 100 01/30/23 02:00 102 H 18 106/72 100 01/30/23 01:00 101 H 15 110/79 100 01/30/23 00:39 01/30/23 00:00 94 18 103/74 100 01/29/23 22:00 95 16 113/78 100 01/29/23 21:00 100 15 116/79 100 01/29/23 20:00 104 H 18 120/81 100 01/29/23 19:44 01/29/23 19:00 101 H 17 118/91 100 01/29/23 17:06 98 17 122/89 100 01/29/23 16:23 01/29/23 16:08 100 FiO2 01/30/23 15:08 01/30/23 14:57 01/30/23 08:00 01/30/23 07:46 01/30/23 07:38 01/30/23 07:07 01/30/23 06:07 01/30/23 06:00 01/30/23 05:00 01/30/23 04:00 01/30/23 03:04 40 01/30/23 03:00 01/30/23 02:00 01/30/23 01:00 01/30/23 00:39 40 01/30/23 00:00 01/29/23 22:00 01/29/23 21:00 01/29/23 20:00 01/29/23 19:44 40 01/29/23 19:00 01/29/23 17:06 01/29/23 16:23 40 01/29/23 16:08 Intake and Output 01/30/23 01/30/23 01/30/23 06:59 14:59 22:59 Intake Total 898 Output Total 750 Balance 148 Intake: Oral 898 Output: Urine 750 Other: Voiding Method Indwelling Catheter GENERAL EXAM: Alert, 72-year-old gentleman, poor historian, on 4 L nasal karoline jenaro, fairly comfortable in no apparent distress. HEAD: Normocephalic. EYES: Normal reaction of pupils, equal size. NOSE: Clear with pink turbinates. THROAT: No erythema or exudates. NECK: No masses, no JVD. CHEST: No chest wall deformity. LUNGS: Equal air entry with faint crackles in the posterior bases. CVS: S1 and S2 normal with no audible murmur, regular rhythm. ABDOMEN: No hepatosplenomegaly, normal bowel sounds, no guarding or rigidity. SPINE: No scoliosis or deformity SKIN: No rashes CENTRAL NERVOUS SYSTEM: No focal deficits, tone is normal in all 4 extremities. EXTREMITIES: There is 2+ peripheral edema. No clubbing, no cyanosis. Peripheral pulses are intact. Results - Laboratory Findings CBC and BMP: 01/30/23 12:45 01/30/23 12:45 PT/INR, D-dimer PT 14.0 sec (10.0-12.5) H 01/29/23 07:33 INR 1.3 (<1.2) H 01/29/23 07:33 Abnormal lab findings: Abnormal Labs 01/29/23 01/29/23 01/29/23 07:33 07:33 07:33 WBC 18.7 H RBC 2.72 L Hgb 8.9 L Hct 29.0 L MCV 106.5 H MCHC 30.6 L RDW 20.6 H Plt Count 546 H Neutrophils # (Manual) 16.20 H Metamyelocytes # (Man) 0.37 H Myelocytes # (Manual) 0.37 H Macrocytosis Marked A PT 14.0 H INR 1.3 H APTT 31.2 H VBG pH VBG HCO3 Sodium Potassium 5.6 H Chloride 110 H Carbon Dioxide 16 L BUN 55 H Creatinine 1.78 H Glucose 199 H POC Glucose (mg/dL) Phosphorus Total Protein 8.6 H Albumin 3.0 L Urine Protein Urine Blood Ur Leukocyte Esterase Urine WBC Urine WBC Clumps Triple Phos Crystals Urine Bacteria Urine Mucus 01/29/23 01/29/23 01/29/23 07:33 17:16 20:36 WBC RBC Hgb Hct MCV MCHC RDW Plt Count Neutrophils # (Manual) Metamyelocytes # (Man) Myelocytes # (Manual) Macrocytosis PT INR APTT VBG pH 7.30 L VBG HCO3 20 L Sodium Potassium Chloride Carbon Dioxide BUN Creatinine Glucose POC Glucose (mg/dL) 194 H 164 H Phosphorus Total Protein Albumin Urine Protein Urine Blood Ur Leukocyte Esterase Urine WBC Urine WBC Clumps Triple Phos Crystals Urine Bacteria Urine Mucus 01/29/23 01/30/23 01/30/23 20:54 12:45 12:45 WBC 15.2 H RBC 2.48 L Hgb 8.0 L Hct 27.0 L MCV 108.6 H MCHC 29.7 L RDW 20.7 H Plt Count Neutrophils # (Manual) Metamyelocytes # (Man) Myelocytes # (Manual) Macrocytosis Marked A PT INR APTT VBG pH VBG HCO3 Sodium 136 L Potassium Chloride 109 H Carbon Dioxide 16 L BUN 56 H Creatinine 1.63 H Glucose 150 H POC Glucose (mg/dL) Phosphorus 4.8 H Total Protein Albumin Urine Protein 1+ H Urine Blood Trace H Ur Leukocyte Esterase Large H Urine WBC 62 H Urine WBC Clumps Occasional H Triple Phos Crystals Occasional H Urine Bacteria Many H Urine Mucus Rare H - Diagnostic Findings Chest x-ray: image reviewed Assessment and Plan Assessment: Acute on chronic hypoxemic respiratory failure secondary to systolic congestive heart failure Atrial fibrillation with varying ventricular response Coronary disease with previous stent placement Acute on chronic kidney disease Hypertension History of ventricular tachycardia with AICD placement Hyperlipidemia Diabetes mellitus Poor overall functional performance based on the above-mentioned multiple comorbidities [facility] Plan: The patient was seen and evaluated Chest x-ray, labs and medications reviewed Currently stable and on 4 L nasal cannula 99 titrate down the FiO2 as tolerated Continue diuretics Should be considered for palliative/hospice care CODE STATUS to be addressed We will continue to follow and make further recommendations based on his medical status I have personally seen and examined the patient, performed the documentation and the assessment and plan as written. Number of minutes spent on the visit: 20.
[2023-01-30 16:28] LABS: Glucose,Whole Blood 152 mg/dL (70-110)
[2023-01-30 20:06] LABS: Glucose,Whole Blood 237 mg/dL (70-110)
[2023-01-30] MEDS: ATORVASTATIN 40 MG TAB PO SCH (21:59)
[2023-01-30] MEDS: SERTRALINE 50 MG TAB PO SCH (21:59)
[2023-01-30] MEDS: risperiDONE 0.5 MG TAB PO SCH (21:59)
[2023-01-31] MEDS: INSULIN ASPART (NovoLOG) 100 UNIT/ML VIAL SQ SCH ×4 (06:10→21:05)
[2023-01-31 06:11] LABS: Glucose,Whole Blood 129 mg/dL (70-110)
[2023-01-31] MEDS: PANTOPRAZOLE 40 MG TABLET PO SCH (06:13)
[2023-01-31] MEDS: METOPROLOL TARTRATE 25 MG TAB PO SCH (06:13)
[2023-01-31] MEDS: MIDODRINE 5 MG TAB PO SCH ×3 (06:13→17:50)
[2023-01-31] MEDS: INSULIN DETEMIR (LEVEMIR) 100 UNIT/ML SYR SQ SCH (06:13)
[2023-01-31] MEDS: IPRATROPIUM-ALBUTEROL 3 ML NEB INHALATION SCH ×4 (07:20→20:33)
[2023-01-31] MEDS: BUDESONIDE 1 MG/2 ML NEBU INHALATION SCH ×2 (07:20→20:33)
[2023-01-31 07:44] LABS: Glucose,Whole Blood 146 mg/dL (70-110)
[2023-01-31] MEDS: allopurinoL 100 MG TAB PO SCH (08:05)
[2023-01-31] MEDS: CLOPIDOGREL 75 MG TAB PO SCH (08:05)
[2023-01-31] MEDS: FUROSEMIDE 10 MG/ML 2 ML VIAL IV SCH ×2 (08:05→20:58)
[2023-01-31] MEDS: FERROUS SULFATE 325 MG TAB PO SCH (08:05)
[2023-01-31] MEDS: FIDAXOMICIN 200 MG TABLET PO SCH ×2 (08:05→20:58)
[2023-01-31] MEDS: OXYBUTYNIN XL 5 MG TAB.ER.24 PO SCH (08:05)
[2023-01-31] MEDS: AMIODARONE 200 MG TAB PO SCH (08:05)
[2023-01-31] MEDS: SODIUM BICARBONATE TAB 650 MG TAB PO SCH ×2 (08:05→17:51)
[2023-01-31] MEDS: THIAMINE 100 MG TAB PO SCH (08:05)
[2023-01-31] MEDS: APIXABAN 5 MG TAB PO SCH ×2 (08:06→17:50)
--- NOTE | 2023-01-31 09:42 | P.PN ---
Subjective Progress Note Date: 01/30/23 Principal diagnosis: CHF exacerbation CC: Dyspnea Subjective: Mr. Guevara was seen and examined. Still remains dyspneic. Still with diarrhea. Objective: Vitals: Reviewed General: Not in acute distress HEENT: Mucous membranes moist neck supple Cardiovascular: Irregular, S1-S2 Lungs: Breath sounds equal, very diminished likely secondary to body habitus Abdomen: Soft, nontender, nondistended Extremities: 2 + lower extremity edema with erythema and other chronic skin changes bilaterally Pertinent labs and imaging reviewed Assessment and plan: 1. Acute hypoxic respiratory failure HFR EF exacerbation, last known EF 35-40% Continue Lasix IV 20 mg twice a day. Strict I's and O's and daily weights. Salt and fluid restriction. 2. Acute kidney injury on CKD Hyperkalemia, resolved Likely secondary to cardiorenal syndrome. Continue diuretics. He is on bicarb. Renally dose meds. 3. A. fib with RVR On eliquis. Telemetry monitoring. On metoprolol and amiodarone. Adjust AV trey blockers based on heart rate. 4. SIRS + C. diff infection On fidoxomicin 5. Unspecified psych disorder On risperidone, Zoloft 6. History of CAD On aspirin and statin 6. DM 2 Blood sugars reasonably controlled. Continue with basal bolus insulin regimen. We will adjust accordingly. Objective - Vital Signs Vital signs: Vital Signs Temp 96.6 F L 01/31/23 07:43 Pulse 120 H 01/31/23 07:44 Resp 22 01/31/23 07:44 BP 141/81 01/31/23 07:43 Pulse Ox 98 01/31/23 07:43 FiO2 40 01/30/23 03:04 Intake & Output 01/30/23 01/31/23 01/31/23 18:59 06:59 18:59 Intake Total 1018 Output Total 950 400 Balance 68 -400 Weight 105.5 kg Intake: Oral 1018 Output: Urine 950 400 Other: Voiding Method Indwelling Catheter Indwelling Catheter Indwelling Catheter - Labs CBC & Chem 7: 01/30/23 12:45 01/30/23 12:45 Labs: Abnormal Lab Results - Last 24 Hours (Table) 01/30/23 01/30/23 01/30/23 Range/Units 12:45 12:45 16:26 WBC 15.2 H (3.8-10.6) k/uL RBC 2.48 L (4.30-5.90) m/uL Hgb 8.0 L (13.0-17.5) gm/dL Hct 27.0 L (39.0-53.0) % MCV 108.6 H (80.0-100.0) fL MCHC 29.7 L (31.0-37.0) g/dL RDW 20.7 H (11.5-15.5) % Macrocytosis Marked A Sodium 136 L (137-145) mmol/L Chloride 109 H (98-107) mmol/L Carbon Dioxide 16 L (22-30) mmol/L BUN 56 H (9-20) mg/dL Creatinine 1.63 H (0.66-1.25) mg/dL Glucose 150 H (74-99) mg/dL POC Glucose (mg/dL) 152 H (70-110) mg/dL Phosphorus 4.8 H (2.5-4.5) mg/dL 01/30/23 01/31/23 01/31/23 Range/Units 20:03 06:09 07:35 WBC (3.8-10.6) k/uL RBC (4.30-5.90) m/uL Hgb (13.0-17.5) gm/dL Hct (39.0-53.0) % MCV (80.0-100.0) fL MCHC (31.0-37.0) g/dL RDW (11.5-15.5) % Macrocytosis Sodium (137-145) mmol/L Chloride (98-107) mmol/L Carbon Dioxide (22-30) mmol/L BUN (9-20) mg/dL Creatinine (0.66-1.25) mg/dL Glucose (74-99) mg/dL POC Glucose (mg/dL) 237 H 129 H 146 H (70-110) mg/dL Phosphorus (2.5-4.5) mg/dL Microbiology - Last 24 Hours (Table) 01/29/23 09:54 Blood Culture - Preliminary Blood
--- NOTE | 2023-01-31 09:45 | P.PN ---
Subjective Progress Note Date: 01/31/23 Principal diagnosis: CHF exacerbation CC: Dyspnea Subjective: Mr. Guevara was seen and examined. Dyspnea improving this am. He was on bipap on my eval. Loose stools persist. Objective: Vitals: Reviewed General: Not in acute distress HEENT: Mucous membranes moist neck supple Cardiovascular: Irregular, S1-S2 Lungs: Breath sounds equal, very diminished likely secondary to body habitus Abdomen: Soft, nontender, nondistended Extremities: 2 + lower extremity edema with erythema and other chronic skin changes bilaterally Pertinent labs and imaging reviewed Assessment and plan: 1. Acute hypoxic respiratory failure HFR EF exacerbation, last known EF 35-40% Continue Lasix IV 20 mg twice a day. Strict I's and O's and daily weights. Salt and fluid restriction. 2. Acute kidney injury on CKD Hyperkalemia, resolved Likely secondary to cardiorenal syndrome. Continue diuretics. He is on bicarb. Renally dose meds. 3. A. fib with RVR On eliquis. Telemetry monitoring. On metoprolol and amiodarone. Adjust AV trey blockers based on heart rate.Increase metoprolol to 50 bid 4. SIRS + C. diff infection On fidoxomicin UA + but no symptoms 5. Unspecified psych disorder On risperidone, Zoloft 6. History of CAD On aspirin and statin 6. DM 2 Blood sugars reasonably controlled. Continue with basal bolus insulin regimen. We will adjust accordingly. Objective - Vital Signs Vital signs: Vital Signs Temp 96.6 F L 01/31/23 07:43 Pulse 120 H 01/31/23 07:44 Resp 22 01/31/23 07:44 BP 141/81 01/31/23 07:43 Pulse Ox 98 01/31/23 07:43 FiO2 40 01/30/23 03:04 Intake & Output 01/30/23 01/31/23 01/31/23 18:59 06:59 18:59 Intake Total 1018 Output Total 950 400 Balance 68 -400 Weight 105.5 kg Intake: Oral 1018 Output: Urine 950 400 Other: Voiding Method Indwelling Catheter Indwelling Catheter Indwelling Catheter - Labs CBC & Chem 7: 01/30/23 12:45 01/30/23 12:45 Labs: Abnormal Lab Results - Last 24 Hours (Table) 01/30/23 01/30/23 01/30/23 Range/Units 12:45 12:45 16:26 WBC 15.2 H (3.8-10.6) k/uL RBC 2.48 L (4.30-5.90) m/uL Hgb 8.0 L (13.0-17.5) gm/dL Hct 27.0 L (39.0-53.0) % MCV 108.6 H (80.0-100.0) fL MCHC 29.7 L (31.0-37.0) g/dL RDW 20.7 H (11.5-15.5) % Macrocytosis Marked A Sodium 136 L (137-145) mmol/L Chloride 109 H (98-107) mmol/L Carbon Dioxide 16 L (22-30) mmol/L BUN 56 H (9-20) mg/dL Creatinine 1.63 H (0.66-1.25) mg/dL Glucose 150 H (74-99) mg/dL POC Glucose (mg/dL) 152 H (70-110) mg/dL Phosphorus 4.8 H (2.5-4.5) mg/dL 01/30/23 01/31/23 01/31/23 Range/Units 20:03 06:09 07:35 WBC (3.8-10.6) k/uL RBC (4.30-5.90) m/uL Hgb (13.0-17.5) gm/dL Hct (39.0-53.0) % MCV (80.0-100.0) fL MCHC (31.0-37.0) g/dL RDW (11.5-15.5) % Macrocytosis Sodium (137-145) mmol/L Chloride (98-107) mmol/L Carbon Dioxide (22-30) mmol/L BUN (9-20) mg/dL Creatinine (0.66-1.25) mg/dL Glucose (74-99) mg/dL POC Glucose (mg/dL) 237 H 129 H 146 H (70-110) mg/dL Phosphorus (2.5-4.5) mg/dL Microbiology - Last 24 Hours (Table) 01/29/23 09:54 Blood Culture - Preliminary Blood
[2023-01-31] MEDS: METOPROLOL TARTRATE 50 MG TAB PO SCH ×2 (11:15→20:58)
[2023-01-31 11:37] LABS: Glucose,Whole Blood 152 mg/dL (70-110)
--- NOTE | 2023-01-31 11:57 | P.PN ---
Subjective Progress Note Date: 01/31/23 Principal diagnosis: CHF This is a 72-year-old gentleman who was brought from extended care facility to the hospital for further evaluation of shortness of breath. The patient does have a past medical history significant for coronary artery disease with a prior revascularization internal stenting as well as ischemic cardiomyopathy with known ejection fraction between 35-40% as well as hypertension and dyslipidemia and chronic anemia and chronic kidney disease and chronic atrial fibrillation. The patient was brought with change in mental status and also with shortness of breath with exertion which has progressed associated with edema in the upper and lower extremities. No pain in the chest and no dizziness or lightheadedness and no feeling of heart racing or fluttering and no presyncope or syncope. The patient was not receiving any oral diuretics. He had multiple hospital admissions with heart failure. During his hospital stay he underwent an EKG which showed underlying atrial fibrillation with RVR previously and in the proBNP came in to be elevated at 25,000 and chest x-ray showed chronic changes only. The patient is in failure clearly. He is hypoxic. He does have upper and lower extremities significant pitting edema noted. His kidney function is abnormal but that has been stable does have chronic kidney disease and his hemoglobin is abnormal and has been stable and chronic as well. The examination is remarkable for severe upper and lower extremity is pitting edema. He does have also diminished breathing sounds bilaterally. Echo from September 2022 showed impaired LV function was EF between 35-40% 01/31/2023 The patient remains hypervolemic and remains fluid overloaded. He is on Lasix 20 mg IV twice a day which I would increase to 40 mg IV twice a day. We'll follow-up with the BUN and creatinine as well as electrolytes. Meanwhile donato colungae the rest of the current medical regimen. No pain in the chest. He is in sinus rhythm. Assessment Heart failure with reduced ejection fraction with right and left failure CAD with a prior stenting Ischemic cardiomyopathy Renal failure appeared to be chronic Anemia appears to be chronic Multiple conditions and permanent atrial fibrillation Plan Increase the dose of IV Lasix Continue monitoring her kidney function and electrolytes No need to repeat the echocardiogram Objective - Vital Signs Vital signs: Vital Signs Temp 96.9 F L 01/31/23 11:20 Pulse 118 H 01/31/23 11:47 Resp 20 01/31/23 11:20 BP 104/69 01/31/23 11:20 Pulse Ox 98 01/31/23 11:20 FiO2 40 01/30/23 03:04 Intake & Output 01/30/23 01/31/23 01/31/23 18:59 06:59 18:59 Intake Total 1018 Output Total 950 400 Balance 68 -400 Weight 105.5 kg 106 kg Intake: Oral 1018 Output: Urine 950 400 Other: Voiding Method Indwelling Catheter Indwelling Catheter Indwelling Catheter - Labs CBC & Chem 7: 01/30/23 12:45 01/30/23 12:45 Labs: Abnormal Lab Results - Last 24 Hours (Table) 01/30/23 01/30/23 01/30/23 Range/Units 12:45 12:45 16:26 WBC 15.2 H (3.8-10.6) k/uL RBC 2.48 L (4.30-5.90) m/uL Hgb 8.0 L (13.0-17.5) gm/dL Hct 27.0 L (39.0-53.0) % MCV 108.6 H (80.0-100.0) fL MCHC 29.7 L (31.0-37.0) g/dL RDW 20.7 H (11.5-15.5) % Macrocytosis Marked A Sodium 136 L (137-145) mmol/L Chloride 109 H (98-107) mmol/L Carbon Dioxide 16 L (22-30) mmol/L BUN 56 H (9-20) mg/dL Creatinine 1.63 H (0.66-1.25) mg/dL Glucose 150 H (74-99) mg/dL POC Glucose (mg/dL) 152 H (70-110) mg/dL Phosphorus 4.8 H (2.5-4.5) mg/dL 01/30/23 01/31/23 01/31/23 Range/Units 20:03 06:09 07:35 WBC (3.8-10.6) k/uL RBC (4.30-5.90) m/uL Hgb (13.0-17.5) gm/dL Hct (39.0-53.0) % MCV (80.0-100.0) fL MCHC (31.0-37.0) g/dL RDW (11.5-15.5) % Macrocytosis Sodium (137-145) mmol/L Chloride (98-107) mmol/L Carbon Dioxide (22-30) mmol/L BUN (9-20) mg/dL Creatinine (0.66-1.25) mg/dL Glucose (74-99) mg/dL POC Glucose (mg/dL) 237 H 129 H 146 H (70-110) mg/dL Phosphorus (2.5-4.5) mg/dL 01/31/23 Range/Units 11:34 WBC (3.8-10.6) k/uL RBC (4.30-5.90) m/uL Hgb (13.0-17.5) gm/dL Hct (39.0-53.0) % MCV (80.0-100.0) fL MCHC (31.0-37.0) g/dL RDW (11.5-15.5) % Macrocytosis Sodium (137-145) mmol/L Chloride (98-107) mmol/L Carbon Dioxide (22-30) mmol/L BUN (9-20) mg/dL Creatinine (0.66-1.25) mg/dL Glucose (74-99) mg/dL POC Glucose (mg/dL) 152 H (70-110) mg/dL Phosphorus (2.5-4.5) mg/dL Microbiology - Last 24 Hours (Table) 01/29/23 09:54 Blood Culture - Preliminary Blood
--- NOTE | 2023-01-31 12:25 | XR ---
EXAMINATION TYPE: XR chest 1V portable DATE OF EXAM: 01/31/2023 12:16 PM CLINICAL INDICATION:Male, 72 years old with history of CHF; [facility] COMPARISON: Chest radiographs from TECHNIQUE: XR chest 1V portable Frontal view of the chest. FINDINGS: Lungs/Pleura: Again identified is fluid within the right minor fissure. Subtle obscuration of the rig ht costophrenic sulcus again identified. No evidence of pneumothorax. Pulmonary vascularity: Stable. Heart/mediastinum: Cardiomediastinal silhouette is stable. Left chest wall AICD device. Musculoskeletal: No acute osseous pathology. IMPRESSION: Stable exam demonstrating trace right pleural effusion.
[2023-01-31 14:04] LABS: African American GFR (CKD) 41 (>60 ml/min/1.73 sqM); Anion Gap 11 mmol/L; Blood Urea Nitrogen 55 mg/dL (9-20); Calcium 8.4 mg/dL (8.4-10.2); Carbon Dioxide 15 mmol/L (22-30); Chloride 106 mmol/L (98-107); Glucose 188 mg/dL (74-99); Non-African American GFR(CKD) 36 (>60 ml/min/1.73 sqM); Potassium 4.8 mmol/L (3.5-5.1); Sodium 132 mmol/L (137-145)
--- NOTE | 2023-01-31 16:04 | P.PN ---
Subjective Progress Note Date: 01/31/23 This is a 72-year-old male patient who is a poor historian who is residing in an extended care facility who was brought in by EMS yesterday for shortness of breath. He does have a history of chronic obstructive pulmonary disease, congestive heart failure, chronic kidney disease, atrial fibrillation, diabetes mellitus, hypertension, hyperlipidemia, coronary disease with previous stent placement, anxiety/depression, former smoker. He was just discharged from here on 01/27/2023. Chest x-ray reveals a stable chest with basilar densities which were unchanged compared to 01/26/2023. Count 15.2. Hemoglobin 8.0. Platelets 427. Sodium 136. Potassium 4.7. Bicarb 16. BUN 56. Creatinine 1.63. Gluc ose 150. Urinalysis positive for many bacteria large leukocyte esterase and high WBCs. He is seen today in consultation on the selective care unit. He is currently resting comfortably in bed. Awake and alert. Underwent unable to give much history. He really required BiPAP support. He is currently on 4 L nasal cannula with O2 saturations up to 99%. Slightly tachycardic. He is initiated on DuoNeb inhalations, Pulmicort inhalations. IV diuretics. Anticoagulated with Eliquis. The patient was seen and evaluated today 01/31/2023 in follow-up on the selective care unit. He is currently resting fairly comfortably in bed. He is on BiPAP 12/5 on 40% FiO2. Follow up chest x-ray is stable with just a trace right pleural effusion. Blood cultures revealed no growth. Sodium 132. Potassium 4.8. Bicarb 15. BUN 55. Creatinine 1.3. Glucose 188. If he is continued on DuoNeb inhalations, Pulmicort inhalations. He is continued on Lasix 20 mg IV twice a day. Currently in a negative balance. Objective - Vital Signs Vital signs: Vital Signs Temp 96.9 F L 01/31/23 11:20 Pulse 106 H 01/31/23 14:30 Resp 20 01/31/23 11:20 BP 104/69 01/31/23 11:20 Pulse Ox 98 01/31/23 11:20 FiO2 40 01/30/23 03:04 Intake & Output 01/30/23 01/31/23 01/31/23 18:59 06:59 18:59 Intake Total 1018 Output Total 950 400 326 Balance 68 -400 -326 Weight 105.5 kg 106 kg Intake: Oral 1018 Output: Urine 950 400 325 Stool 1 Other: Voiding Method Indwelling Catheter Indwelling Catheter Indwelling Catheter - Exam GENERAL EXAM: Alert, 72-year-old gentleman, on BiPAP, fairly comfortable in no apparent distress. HEAD: Normocephalic. EYES: Normal reaction of pupils, equal size. NOSE: Clear with pink turbinates. THROAT: No erythema or exudates. NECK: No masses, no JVD. CHEST: No chest wall deformity. LUNGS: Equal air entry with faint crackles in the right base. CVS: S1 and S2 normal with no audible murmur, regular rhythm. ABDOMEN: No hepatosplenomegaly, normal bowel sounds, no guarding or rigidity. SPINE: No scoliosis or deformity SKIN: No rashes CENTRAL NERVOUS SYSTEM: No focal deficits, tone is normal in all 4 extremities. EXTREMITIES: There is 2+ peripheral edema. No clubbing, no cyanosis. Peripheral pulses are intact. - Labs CBC & Chem 7: 01/30/23 12:45 01/31/23 12:35 Labs: Abnormal Lab Results - Last 24 Hours (Table) 01/30/23 01/30/23 01/31/23 Range/Units 16:26 20:03 06:09 Sodium (137-145) mmol/L Carbon Dioxide (22-30) mmol/L BUN (9-20) mg/dL Creatinine (0.66-1.25) mg/dL Glucose (74-99) mg/dL POC Glucose (mg/dL) 152 H 237 H 129 H (70-110) mg/dL 01/31/23 01/31/23 01/31/23 Range/Units 07:35 11:34 12:35 Sodium 132 L (137-145) mmol/L Carbon Dioxide 15 L (22-30) mmol/L BUN 55 H (9-20) mg/dL Creatinine 1.83 H (0.66-1.25) mg/dL Glucose 188 H (74-99) mg/dL POC Glucose (mg/dL) 146 H 152 H (70-110) mg/dL Microbiology - Last 24 Hours (Table) 01/29/23 09:54 Blood Culture - Preliminary Blood Assessment and Plan Assessment: Acute on chronic hypoxemic respiratory failure secondary to systolic congestive heart failure Atrial fibrillation with varying ventricular response Coronary disease with previous stent placement Acute on chronic kidney disease Hypertension History of ventricular tachycardia with AICD placement Hyperlipidemia Diabetes mellitus Poor overall functional performance based on the above-mentioned multiple comorbidities [facility] resident Plan: The patient was seen and evaluated Chest x-ray, labs and medications reviewed X-ray showing improvement with only trace right pleural effusion Currently stable on BiPAP to maintain with nasal cannula Continue diuretics Should be considered for palliative/hospice care CODE STATUS to be addressed We will continue to follow I have personally seen and examined the patient, performed the documentation and the assessment and plan as written. Number of minutes spent on the visit: 10.
[2023-01-31 16:26] LABS: Glucose,Whole Blood 168 mg/dL (70-110)
[2023-01-31 20:14] LABS: Glucose,Whole Blood 468 mg/dL (70-110)
[2023-01-31 20:27] LABS: Glucose,Whole Blood 194 mg/dL (70-110)
[2023-01-31] MEDS: SERTRALINE 50 MG TAB PO SCH (20:58)
[2023-01-31] MEDS: ATORVASTATIN 40 MG TAB PO SCH (20:58)
[2023-01-31] MEDS: risperiDONE 0.5 MG TAB PO SCH (20:58)
[2023-02-01 06:01] LABS: Glucose,Whole Blood 156 mg/dL (70-110)
[2023-02-01] MEDS: MIDODRINE 5 MG TAB PO SCH ×3 (06:46→16:58)
[2023-02-01] MEDS: PANTOPRAZOLE 40 MG TABLET PO SCH (06:46)
[2023-02-01] MEDS: INSULIN ASPART (NovoLOG) 100 UNIT/ML VIAL SQ SCH ×4 (06:47→21:09)
--- NOTE | 2023-02-01 07:22 | P.CONS ---
History of Present Illness - Reason for Consult Consult date: 01/31/23 C. diff Requesting physician: Birgit Sky - Chief Complaint Increasing shortness of breath x few days - History of Present Illness Patient is a 72-year-old male with a past medical history significant for atrial fibrillation coronary artery disease heart failure diabetes mellitus hypertension hyperlipidemia patient recently did have multiple admission to the hospital initially he did have bacteremia subsequently admitted for C. difficile colitis and was recently discharged from the hospital on Dificid patient is presenting to the hospital 2 days ago for evaluation of increasing shortness of breath apparently the patient's symptom has been getting worse for a day or 2 before presentation to hospital patient main symptom is shortness of breath and is requiring a BiPAP denies significant chest pain cough or sputum production no nausea no vomiting no abdominal pain and no diarrhea reported by the nurses aide patient did have a low-grade fever of 99.2 F patient was tachycardic hypoxic requiring a BiPAP patient did have vital of 18.7 with a left shift creatinine is 1.83 urine was positive influenza RSV and COVID testing was negative patient did have a chest x-ray stable chest as reported by radiologist there was basilar increased density unchanged patient has been continued on Dificid infectious disease was consulted for C. difficile colitis, as mentioned earlier no diarrhea reported by the nurses aide this morning most information has been obtained from review the chart as the patient not a good historian at this point Review of Systems Positive point and negatives has been mentioned in the HPI, complete review of systems was performed and all other systems are negative Past Medical History Past Medical History: Atrial Fibrillation, Coronary Artery Disease (CAD), Heart Failure, Diabetes Mellitus, Hyperlipidemia, Hypertension Additional Past Medical History / Comment(s): Gout. Hx UTI, CKD, Hx COVID, C diff colitis History of Any Multi-Drug Resistant Organisms: MRSA Year Discovered:: 01/21/23 MDRO Source:: Left Foot Past Surgical History: Heart Catheterization With Stent, Orthopedic Surgery, Pacemaker Additional Past Surgical History / Comment(s): 2 STENTS DEC 2020, left hip surgery X2. Past Anesthesia/Blood Transfusion Reactions: No Reported Reaction, Postoperative Nausea & Vomiting (PONV) Additional Past Anesthesia/Blood Transfusion Reaction / Comm: UNKNOWN FAMILY HX. Date of Last Stent Placement:: DEC 2020 Type of Cardiac Device: Unknown Device Placement Date:: Unknown Past Psychological History: Anxiety, Depression Smoking Status: Former smoker Past Alcohol Use History: None Reported Past Drug Use History: None Reported - Past Family History Mother Family Medical History: Cancer Brother(s) Family Medical History: Cancer Additional Family Medical History / Comment(s): Lung cancer. Father History Unknown: Yes Family Medical History: Hyperlipidemia Medications and Allergies Home Medications Medication Instructions Recorded Confirmed Type Ferrous Sulfate [Iron] 325 mg PO DAILY@0800 10/21/20 01/29/23 History Sertraline HCl [Zoloft] 50 mg PO HS@209910/21/20 01/29/23 History allopurinoL [Zyloprim] 100 mg PO DAILY@0800 10/21/20 01/29/23 History risperiDONE [RisperDAL] 0.5 mg PO HS@209910/21/20 01/29/23 History Apixaban [Eliquis] 5 mg PO BID@0800,1700 05/09/21 01/29/23 History Thiamine HCl [Vitamin B-1] 100 mg PO DAILY@0800 05/09/21 01/29/23 History Atorvastatin [Lipitor] 40 mg PO HS@209910/16/22 01/29/23 History Clopidogrel [Plavix] 75 mg PO DAILY@00 10/16/22 01/29/23 History L.idocaine 5% Patch [Lidoderm 5% 1 patch TRANSDERM DAILY@79910/17/22 01/29/23 History Patch] Cholecalciferol [Vitamin D3 (25 50 mcg PO DAILY@0800 12/14/22 01/29/23 History Mcg = 1000 Iu)] Cyclobenzaprine [Flexeril] 5 mg PO TID@0600,1400,2200 12/14/22 01/29/23 History Ipratropium-Albuterol Nebulize 3 ml INHALATION RT-QID@00,06,12,18 12/14/22 01/29/23 History [Duoneb 0.5 mg-3 mg/3 ml Soln] Potassium Chloride ER [K-Dur 20] 20 meq PO BID@0800,1700 12/14/22 01/29/23 History Sodium Bicarbonate Tab 650 mg PO BID@0800,1700 12/14/22 01/29/23 History oxyBUTYnin chloride [oxyBUTYnin 5 mg PO DAILY@0800 12/14/22 01/29/23 History chloride ER] Budesonide [Pulmicort] 1 mg INHALATION RT-BID@0800,1700 12/27/22 01/29/23 History Dapagliflozin Propanediol [Farxiga] 10 mg PO DAILY@0800 12/27/22 01/29/23 History Lactobacillus Acidophilus 1 cap PO DAILY@0800 12/27/22 01/29/23 History [Acidophilus Probiotic] Pantoprazole [Protonix] 40 mg PO DAILY@0600 12/27/22 01/29/23 History Acetaminophen Tab [Tylenol] 650 mg PO Q6HR PRN tab 01/06/23 01/29/23 Rx Glucerna Shake 237 ml PO TID@0800,1200,1700 01/21/23 01/29/23 History INSULIN ASPART (NovoLOG) [NovoLOG See Protocol SQ 01/21/23 01/29/23 History (formulary)] ACHS@07,11,1630,2130 Insulin Detemir (Levemir) [Levemir] 10 unit SQ HS@2100 01/21/23 01/29/23 History Ipratropium-Albuterol Nebulize 3 ml INHALATION RT-Q6H PRN 01/21/23 01/29/23 Hist ory [Duoneb 0.5 mg-3 mg/3 ml Soln] Multivit-Min/FA/Lycopen/Lutein 1 tab PO DAILY@0800 01/21/23 01/29/23 History [Centrum Silver Tablet] Amiodarone [Cordarone] 200 mg PO DAILY tab 02/09/23 Rx Aspirin 81 mg PO DAILY tab 02/09/23 Rx Furosemide [Lasix] 40 mg PO BID #0 02/09/23 01/29/23 Rx Metoprolol Tartrate [Lopressor] 100 mg PO BID tab 02/09/23 Rx Midodrine [ProAmatine] 2.5 mg PO AC-TID tab 02/09/23 Rx Spironolactone [Aldactone] 25 mg PO DAILY tab 02/09/23 Rx metOLazone [Zaroxolyn] 5 mg PO DAILY tab 02/09/23 Rx Allergies Allergy/AdvReac Type Severity Reaction Status Date / Time No Known Allergies Allergy Verified 01/29/23 06:57 Physical Exam Vitals: Vital Signs Temp Pulse Pulse Resp BP Pulse Ox 01/31/23 07:36 113 H 01/31/23 07:24 110 H 97 01/31/23 04:00 98.1 F 101 H 23 104/74 97 01/31/23 02:00 104 H 24 01/31/23 00:00 98.3 F 104 H 24 132/93 96 01/30/23 20:00 98.1 F 112 H 105 H 23 104/76 98 01/30/23 19:40 110 H 01/30/23 15:15 98 F 101 H 22 121/73 97 01/30/23 15:08 110 H 01/30/23 14:57 112 H 99 01/30/23 14:00 117 H 18 01/30/23 08:00 98.2 F 117 H 18 117/65 96 01/30/23 07:46 100 Intake and Output 01/30/23 01/31/23 01/31/23 22:59 06:59 14:59 Intake Total 120 Output Total 200 400 Balance -80 -400 Intake: Oral 120 Output: Urine 200 400 Other: Voiding Method Indwelling Catheter Indwelling Catheter Weight 105.5 kg GENERAL DESCRIPTION: Elderly male lying in bed, no distress. No tachypnea or accessory muscle of respiration use. HEENT: Shows Pallor , no scleral icterus. Oral mucous membrane is dry. No pharyngeal erythema or thrush NECK: Trachea central, no thyromegaly. LUNGS: Unlabored breathing. Decreased intensity of breath sounds HEART: S1, S2, regular rate and rhythm. No loud murmur ABDOMEN: Soft, no tenderness , EXTREMITIES: Diffuse swelling bilateral lower extremity no redness SKIN: No rash, no masses palpable. NEUROLOGICAL: The patient is awake, alert, mood and affect normal. Results CBC & Chem 7: 02/07/23 21:10 02/09/23 09:45 Labs: Abnormal Lab Results - Last 24 Hours (Table) 01/30/23 01/30/23 01/30/23 Range/Units 12:45 12:45 16:26 WBC 15.2 H (3.8-10.6) k/uL RBC 2.48 L (4.30-5.90) m/uL Hgb 8.0 L (13.0-17.5) gm/dL Hct 27.0 L (39.0-53.0) % MCV 108.6 H (80.0-100.0) fL MCHC 29.7 L (31.0-37.0) g/dL RDW 20.7 H (11.5-15.5) % Macrocytosis Marked A Sodium 136 L (137-145) mmol/L Chloride 109 H (98-107) mmol/L Carbon Dioxide 16 L (22-30) mmol/L BUN 56 H (9-20) mg/dL Creatinine 1.63 H (0.66-1.25) mg/dL Glucose 150 H (74-99) mg/dL POC Glucose (mg/dL) 152 H (70-110) mg/dL Phosphorus 4.8 H (2.5-4.5) mg/dL 01/30/23 01/31/23 Range/Units 20:03 06:09 WBC (3.8-10.6) k/uL RBC (4.30-5.90) m/uL Hgb (13.0-17.5) gm/dL Hct (39.0-53.0) % MCV (80.0-100.0) fL MCHC (31.0-37.0) g/dL RDW (11.5-15.5) % Macrocytosis Sodium (137-145) mmol/L Chloride (98-107) mmol/L Carbon Dioxide (22-30) mmol/L BUN (9-20) mg/dL Creatinine (0.66-1.25) mg/dL Glucose (74-99) mg/dL POC Glucose (mg/dL) 237 H 129 H (70-110) mg/dL Phosphorus (2.5-4.5) mg/dL Microbiology - Last 24 Hours (Table) 01/29/23 09:54 Blood Culture - Preliminary Blood Assessment and Plan (1) C. difficile colitis Current Visit: No Status: Acute Code(s): A04.72 - ENTEROCOLITIS D/T CLOSTRIDIUM DIFFICILE, NOT SPCF RECUR SNOMED Code(s): 794658271 Plan: 1patient presented to hospital with increasing shortness that more likely related to underlying fluid overload as the patient did have significant sw elling and evidence of effusion on chest x-ray clinically not behaving as pneumonia patient did not have any fever or elevated white count. 2patient with a recent diagnosis of C. difficile colitis apparently diarrhea is improving and the patient was continued on Dificid 3no need for systemic antibiotic therapy We will follow on clinical condition and cultures to further adjust medication if needed Thank you for this consultation we will follow the patient along with you Dictation was produced using [employer] dictation software. please excuse any grammatical, word or spelling errors. Time with Patient: Greater than 30
[2023-02-01] MEDS: AMIODARONE 200 MG TAB PO SCH (08:20)
[2023-02-01] MEDS: METOPROLOL TARTRATE 50 MG TAB PO SCH ×2 (08:20→21:10)
[2023-02-01] MEDS: FIDAXOMICIN 200 MG TABLET PO SCH ×2 (08:20→21:10)
[2023-02-01] MEDS: THIAMINE 100 MG TAB PO SCH (08:20)
[2023-02-01] MEDS: OXYBUTYNIN XL 5 MG TAB.ER.24 PO SCH (08:20)
[2023-02-01] MEDS: APIXABAN 5 MG TAB PO SCH ×2 (08:20→16:58)
[2023-02-01] MEDS: FUROSEMIDE 10 MG/ML 2 ML VIAL IV SCH ×2 (08:20→21:10)
[2023-02-01] MEDS: allopurinoL 100 MG TAB PO SCH (08:20)
[2023-02-01] MEDS: FERROUS SULFATE 325 MG TAB PO SCH (08:20)
[2023-02-01] MEDS: SODIUM BICARBONATE TAB 650 MG TAB PO SCH ×2 (08:20→16:58)
[2023-02-01] MEDS: CLOPIDOGREL 75 MG TAB PO SCH (08:20)
[2023-02-01] MEDS: INSULIN DETEMIR (LEVEMIR) 100 UNIT/ML SYR SQ SCH (09:23)
[2023-02-01] MEDS: BUDESONIDE 1 MG/2 ML NEBU INHALATION SCH ×2 (09:27→21:04)
[2023-02-01] MEDS: IPRATROPIUM-ALBUTEROL 3 ML NEB INHALATION SCH ×4 (09:28→21:03)
[2023-02-01 10:09] LABS: African American GFR (CKD) 47 (>60 ml/min/1.73 sqM); Anion Gap 11 mmol/L; Blood Urea Nitrogen 53 mg/dL (9-20); Calcium 8.1 mg/dL (8.4-10.2); Carbon Dioxide 18 mmol/L (22-30); Chloride 106 mmol/L (98-107); Glucose 112 mg/dL (74-99); Non-African American GFR(CKD) 41 (>60 ml/min/1.73 sqM); Potassium 3.9 mmol/L (3.5-5.1); Sodium 135 mmol/L (137-145)
[2023-02-01 10:15] LABS: Anisocytosis Moderate; Basophils % (A) 0 %; Eosinophils # (A) 0.1 k/uL (0-0.7); Eosinophils % (A) 1 %; HCT 24.4 % (39.0-53.0); HGB 7.7 gm/dL (13.0-17.5); Hypochromasia Marked; Lymphocytes # (A) 0.9 k/uL (1.0-4.8); Lymphocytes % (A) 7 %; MCH 33.6 pg (25.0-35.0); MCHC 31.6 g/dL (31.0-37.0); MCV 106.4 fL (80.0-100.0); Macrocytosis Marked; Mean Platelet Volume 7.7; Monocytes # (A) 0.6 k/uL (0-1.0); Monocytes % (A) 5 %; Neutrophils # (A) 11.1 k/uL (1.3-7.7); Neutrophils % (A) 87 %; Platelet Count 334 k/uL (150-450); Poikilocytosis Moderate; RBC 2.29 m/uL (4.30-5.90); RDW 21.4 % (11.5-15.5); WBC 12.8 k/uL (3.8-10.6)
[2023-02-01] MEDS ORDERED: ZINC OXIDE PASTE (Z-GUARD) 1 APPLIC APPLIC TOPICAL PRN (10:53)
[2023-02-01 11:34] LABS: Glucose,Whole Blood 216 mg/dL (70-110)
--- NOTE | 2023-02-01 13:57 | P.PN ---
Subjective Progress Note Date: 02/01/23 Principal diagnosis: Respiratory failure. This is a 72-year-old male patient who is a poor historian who is residing in an extended care facility who was brought in by EMS yesterday for shortness of breath. He does have a history of chronic obstructive pulmonary disease, conges tive heart failure, chronic kidney disease, atrial fibrillation, diabetes mellitus, hypertension, hyperlipidemia, coronary disease with previous stent placement, anxiety/depression, former smoker. He was just discharged from here on 01/27/2023. Chest x-ray reveals a stable chest with basilar densities which were unchanged compared to 01/26/2023. Count 15.2. Hemoglobin 8.0. Platelets 427. Sodium 136. Potassium 4.7. Bicarb 16. BUN 56. Creatinine 1.63. Glucose 150. Urinalysis positive for many bacteria large leukocyte esterase and high WBCs. He is seen today in consultation on the selective care unit. He is currently resting comfortably in bed. Awake and alert. Underwent unable to give much history. He really required BiPAP support. He is currently on 4 L nasal cannula with O2 saturations up to 99%. Slightly tachycardic. He is initiated on DuoNeb inhalations, Pulmicort inhalations. IV diuretics. Anticoagulated with Eliquis. The patient was seen and evaluated today 01/31/2023 in follow-up on the selective care unit. He is currently resting fairly comfortably in bed. He is on BiPAP 12/5 on 40% FiO2. Follow up chest x-ray is stable with just a trace right pleural effusion. Blood cultures revealed no growth. Sodium 132. Potassium 4.8. Bicarb 15. BUN 55. Creatinine 1.3. Glucose 188. If he is continued on DuoNeb inhalations, Pulmicort inhalations. He is continued on Lasix 20 mg IV twice a day. Currently in a negative balance. Progress note dated 02/01/2023. 72-year-old male who was seen today in room 380. Currently, the patient's on 3 L of oxygen. His BiPAP settings included a IPAP of 12, EPAP of 5, and 40%. The patient is not receiving any IV fluids. His admitted to the hospital with a diagnosis of congestive heart failure, respiratory failure, and hypoxemia. White count is 12.8, hemoglobin 7.7, hematocrit 24.4, with a platelet count 334,000. Sodium 135, potassium 3.9, chlorides 106, CO2 18, anion gap 11, BUN 53, and creatinine 1.65. Glucose 112. Chest x-ray from January 31 shows a stable examination demonstrated trace right pleural effusion. Objective - Vital Signs Vital signs: Vital Signs Temp 97.8 F 02/01/23 12:00 Pulse 100 02/01/23 13:06 Resp 18 02/01/23 12:00 BP 91/54 02/01/23 12:00 Pulse Ox 98 02/01/23 12:00 FiO2 40 02/01/23 12:54 Intake & Output 01/31/23 02/01/23 02/01/23 18:59 06:59 18:59 Intake Total 120 300 360 Output Total 326 850 200 Balance -206 -550 160 Weight 106 kg 105.5 kg Intake: Oral 120 300 360 Output: Urine 325 850 200 Stool 1 Other: Voiding Method Indwelling Catheter Indwelling Catheter Indwelling Catheter # Bowel Movements 1 - Exam No acute distress, oriented 3. The patient is currently on 3 L of oxygen. HEENT examination is grossly unremarkable. Mucous membranes are moist. No oral lesions. Neck supple. Full range of motion. No adenopathy thyromegaly or neck vein distention. Cardiovascular examination reveals regular rhythm rate. S1-S2 normal. No S3 or S4. No discernible murmur noted. Heart sounds are distant. Heart rate 92 bpm. Lungs reveal bibasilar crackles. Scattered rhonchi are noted. There are no wheezes. Breath sounds are equal bilaterally. 3 L saturation is adequate. Abdomen soft bowel sounds are heard. No masses or tenderness. Extremities are intact. No cyanosis clubbing or edema. Skin is without rash or lesion. Neurologic examination is brief but nonfocal. - Labs CBC & Chem 7: 02/01/23 08:43 02/01/23 08:43 Labs: Abnormal Lab Results - Last 24 Hours (Table) 01/31/23 01/31/23 01/31/23 Range/Units 12:35 16:24 20:13 WBC (3.8-10.6) k/uL RBC (4.30-5.90) m/uL Hgb (13.0-17.5) gm/dL Hct (39.0-53.0) % MCV (80.0-100.0) fL RDW (11.5-15.5) % Neutrophils # (1.3-7.7) k/uL Lymphocytes # (1.0-4.8) k/uL Macrocytosis Sodium 132 L (137-145) mmol/L Carbon Dioxide 15 L (22-30) mmol/L BUN 55 H (9-20) mg/dL Creatinine 1.83 H (0.66-1.25) mg/dL Glucose 188 H (74-99) mg/dL POC Glucose (mg/dL) 168 H 468 H (70-110) mg/dL Calcium (8.4-10.2) mg/dL 01/31/23 02/01/23 02/01/23 Range/Units 20:25 06:00 08:43 WBC 12.8 H (3.8-10.6) k/uL RBC 2.29 L (4.30-5.90) m/uL Hgb 7.7 L (13.0-17.5) gm/dL Hct 24.4 L (39.0-53.0) % MCV 106.4 H (80.0-100.0) fL RDW 21.4 H (11.5-15.5) % Neutrophils # 11.1 H (1.3-7.7) k/uL Lymphocytes # 0.9 L (1.0-4.8) k/uL Macrocytosis Marked A Sodium (137-145) mmol/L Carbon Dioxide (22-30) mmol/L BUN (9-20) mg/dL Creatinine (0.66-1.25) mg/dL Glucose (74-99) mg/dL POC Glucose (mg/dL) 194 H 156 H (70-110) mg/dL Calcium (8.4-10.2) mg/dL 02/01/23 02/01/23 Range/Units 08:43 11:24 WBC (3.8-10.6) k/uL RBC (4.30-5.90) m/uL Hgb (13.0-17.5) gm/dL Hct (39.0-53.0) % MCV (80.0-100.0) fL RDW (11.5-15.5) % Neutrophils # (1.3-7.7) k/uL Lymphocytes # (1.0-4.8) k/uL Macrocytosis Sodium 135 L (137-145) mmol/L Carbon Dioxide 18 L (22-30) mmol/L BUN 53 H (9-20) mg/dL Creatinine 1.65 H (0.66-1.25) mg/dL Glucose 112 H (74-99) mg/dL POC Glucose (mg/dL) 216 H (70-110) mg/dL Calcium 8.1 L (8.4-10.2) mg/dL Microbiology - Last 24 Hours (Table) 01/29/23 20:54 Urine Culture - Final Urine,Voided 01/29/23 09:54 Blood Culture - Preliminary Blood Assessment and Plan Assessment: Acute on chronic hypoxemic respiratory failure secondary to systolic congestive heart failure. Atrial fibrillation with varying ventricular response. Coronary disease with previous stent placement. Acute on chronic kidney disease. Hypertension. History of ventricular tachycardia with AICD placement. Hyperlipidemia. Diabetes mellitus. Poor overall functional performance based on the above-mentioned multiple comorbidities. [facility] resident. Plan: Plan dated 02/01/2023. The patient currently remains on oxygen at 3 L. He is on BiPAP at nighttime, and intermittently during the day, with settings of 12/5, and 40%. The patient was admitted with a diagnosis of CHF. He's not receiving any IV fluids. Labs, x-rays, medications are reviewed. The patient's overall prognosis remains guarded. We will continue to follow the patient and make recommendations along the way. Time with Patient: Less than 30
--- NOTE | 2023-02-01 14:29 | P.PN ---
Subjective Progress Note Date: 02/01/23 Patient is a 72-year-old male with systolic CHF, A. fib on Eliquis, CAD status post stents, COPD, type 2 diabetes, and hypertension who presented from rehab with complaints of shortness of breath and chest discomfort. Patient has had 2 recent hospitalizations due to C. diff colitis with sepsis. His most recent discharge was on 01/27/23. On arrival to the ER this hospital stay he was in significant respiratory distress and was placed on rescue BiPAP. He was also noted to be tachycardic with a pulse of 117. In the ER he underwent extensive evaluation. Laboratory analysis included CBC, coags, VBG, CMP, troponin, and BNP which were remarkable for white blood cell count 18.7, hemoglobin 8.9, platelets 546, INR 1.3, pH 7.3, bicarbonate VBG 20, potassium 5.6, carbon dioxide 16, BUN 55, creatinine 1.78, and BNP 25,500. Influenza A/B/RSV/COVID-19 testing was negative. Chest x-ray demonstrated fluid in the right minor fissure and blunting of the costophrenic angle. In the ER he was given a dose of Lasix IV push, Decadron 10 mg once, DuoNeb was not administered due to Covid test, and he received Zithromax 500 mg IV piggyback 1. Arrangements are made for admission. Patient's respiratory status improved with intermittent BiPAP and Lasix IV. Pulmonology and Cardiology followed the patient during his hospitalization. He was continued on Fidoxomicin for treatment of C.diff sepsis. 02/01 Patient was seen and examined. Currently on 2L NC. CBC WBC 12.8 Hg 7.7 MCV 106.4. BMP Na 135, bicarb 18, BUN 53, Cr 1.65, glu 112, Ca 8.1. Currently on BiPAP FiO2 40% PRN. Currently on Lasix 20 mg IV BID. Negative 332 cc over the past 24H. General: non toxic, no distress, appears at stated age Derm: warm, dry Head: atraumatic, normocephalic, symmetric Eyes: EOMI, no lid lag, anicteric sclera Cardiovascular: S1S2 reg, no murmur Lungs: Decreased BS bilateral, no rhonchi, no rales , no accessory muscle use Ext: no gross muscle atrophy, no edema, no contractures Neuro: no focal neuro deficits Psych: Alert, oriented, appropriate affect Based on my assessment of this patient, this patient meets a high complexity level of care. Patient has an acute diagnosis of acute hypoxic respiratory failure due to CHF exacerbation that poses a threat to life or bodily function. Acute hypoxic respiratory failure: BiPAP PRN. Lasix IV as above. DuoNeb PRN for SOB/wheezing. Pulmicort INH BID. Telemetry monitoring. Pulmonology and Cardiology on board. HFrEF exacerbation: Lasix as above. Strict intake and outtake. Daily weights. RAJAN on CKD: Due to forced diuresis. Metabolic acidosis: Sodium bicarbonate 650 mg PO BID. AFib with RVR: Eliquis 5 mg PO BID. Amiodarone 400 mg PO BID. Metoprolol 50 mg PO BID C. difficile: Fidaxomicin 200 mg PO BID. Unspecified psych disorder: Risperidal 0.5 mg PO QHS. Zoloft 50 mg PO QD. History of CAD: Lipitor 40 mg PO QD. Plavix 75 mg PO QD. Diabetes mellitus: ISS. Levemir 10 units QD. CODE STATUS: FULL CODE DVT Prophylaxis: Eliquis. GI Prophylaxis: Designated medical POA if patient is not able to make medical decisions for themselves: Guardian I have reviewed the following government operations consultant notes: Pulm, Cardio, ID note. I have reviewed the results of the following tests: CBC, BMP. I have ordered the following tests: BMP. I have discussed the care of this patient with the following independent historian: I have independently interpreted the following test below: I have discussed the management of this patient with the following physician: This patient has a high risk of morbidity due to the following reasons: This patient meets a high level of care for the following reasons: IV lasix requires intensive monitoring of electrolytes and renal function. Objective - Vital Signs Vital signs: Vital Signs Temp 97.6 F 02/01/23 04:43 Pulse 99 02/01/23 04:43 Resp 17 02/01/23 04:43 BP 105/74 02/01/23 04:43 Pulse Ox 100 02/01/23 04:43 FiO2 40 02/01/23 04:43 Intake & Output 01/31/23 02/01/23 02/01/23 18:59 06:59 18:59 Intake Total 120 300 Output Total 326 850 Balance -206 -550 Weight 106 kg 105.5 kg Intake: Oral 120 300 Output: Urine 325 850 Stool 1 Other: Voiding Method Indwelling Catheter Indwelling Catheter # Bowel Movements 1 - Labs CBC & Chem 7: 02/01/23 08:43 02/01/23 08:43 Labs: Abnormal Lab Results - Last 24 Hours (Table) 01/31/23 01/31/23 01/31/23 Range/Units 11:34 12:35 16:24 Sodium 132 L (137-145) mmol/L Carbon Dioxide 15 L (22-30) mmol/L BUN 55 H (9-20) mg/dL Creatinine 1.83 H (0.66-1.25) mg/dL Glucose 188 H (74-99) mg/dL POC Glucose (mg/dL) 152 H 168 H (70-110) mg/dL 01/31/23 01/31/23 02/01/23 Range/Units 20:13 20:25 06:00 Sodium (137-145) mmol/L Carbon Dioxide (22-30) mmol/L BUN (9-20) mg/dL Creatinine (0.66-1.25) mg/dL Glucose (74-99) mg/dL POC Glucose (mg/dL) 468 H 194 H 156 H (70-110) mg/dL Microbiology - Last 24 Hours (Table) 01/29/23 20:54 Urine Culture - Final Urine,Voided 01/29/23 09:54 Blood Culture - Preliminary Blood
[2023-02-01 16:37] LABS: Glucose,Whole Blood 216 mg/dL (70-110)
[2023-02-01 20:53] LABS: Glucose,Whole Blood 347 mg/dL (70-110)
[2023-02-01] MEDS: risperiDONE 0.5 MG TAB PO SCH (21:10)
[2023-02-01] MEDS: SERTRALINE 50 MG TAB PO SCH (21:10)
[2023-02-01] MEDS: ATORVASTATIN 40 MG TAB PO SCH (21:10)
--- NOTE | 2023-02-01 21:56 | PN ---
PROGRESS NOTE SUBJECTIVE: A 72-year-old patient with history of coronary artery disease, ischemic cardiomyopathy, hypertension and permanent atrial fibrillation, who is admitted to hospital with mental status changes and worsening leg edema and shortness of breath and elevated BNP and atrial fibrillation with rapid ventricular rate. The patient is treated with IV Lasix with some improvement in his symptoms. OBJECTIVE: GENERAL: At the time of my evaluation this morning, he is comfortable at rest. VITAL SIGNS: Heart rate is 98 beats per minute, blood pressure is 100/72, respiratory rate is 18, O2 saturation is 98% on 3 L. NECK: There is no jugular venous distention. CHEST: Reveals diminished air entry at the bases. HEART: Reveals first and second heart sounds. Irregular rhythm and a systolic murmur at the left lower sternal border. ABDOMEN: Soft. EXTREMITIES: Exam of extremities reveals bilateral pitting edema. LABORATORY DATA: Labs show that the hemoglobin is 7.7, platelet count is 334, potassium is 3.9, BUN is 53, creatinine is 1.6. MEDICATIONS: The patient is currently on amiodarone, apixaban, atorvastatin, Lasix, insulin, Lopressor. ASSESSMENT: 1. Permanent atrial fibrillation with controlled ventricular rate. 2. Acute exacerbation of chronic systolic heart failure. 3. Coronary artery disease, status post prior angioplasty. PLAN: The patient will continue current medications. He has renal insufficiency, but continues to be fluid overloaded. MMODL / IJN: [id number] /
[2023-02-02 06:02] LABS: Glucose,Whole Blood 121 mg/dL (70-110)
[2023-02-02] MEDS: INSULIN ASPART (NovoLOG) 100 UNIT/ML VIAL SQ SCH ×4 (06:07→21:31)
[2023-02-02] MEDS: PANTOPRAZOLE 40 MG TABLET PO SCH (06:32)
[2023-02-02] MEDS: MIDODRINE 5 MG TAB PO SCH ×3 (06:32→17:24)
[2023-02-02] MEDS: INSULIN DETEMIR (LEVEMIR) 100 UNIT/ML SYR SQ SCH (06:32)
[2023-02-02] MEDS: APIXABAN 5 MG TAB PO SCH ×2 (09:15→17:24)
[2023-02-02] MEDS: SODIUM BICARBONATE TAB 650 MG TAB PO SCH ×2 (09:15→17:24)
[2023-02-02] MEDS: OXYBUTYNIN XL 5 MG TAB.ER.24 PO SCH (09:16)
[2023-02-02] MEDS: AMIODARONE 200 MG TAB PO SCH (09:16)
[2023-02-02] MEDS: THIAMINE 100 MG TAB PO SCH (09:16)
[2023-02-02] MEDS: FERROUS SULFATE 325 MG TAB PO SCH (09:16)
[2023-02-02] MEDS: allopurinoL 100 MG TAB PO SCH (09:16)
[2023-02-02] MEDS: FIDAXOMICIN 200 MG TABLET PO SCH ×2 (09:16→21:31)
[2023-02-02] MEDS: METOPROLOL TARTRATE 50 MG TAB PO SCH ×2 (09:17→21:30)
[2023-02-02] MEDS: FUROSEMIDE 10 MG/ML 2 ML VIAL IV SCH ×2 (09:17→21:31)
[2023-02-02] MEDS: CLOPIDOGREL 75 MG TAB PO SCH (09:17)
[2023-02-02] MEDS: BUDESONIDE 1 MG/2 ML NEBU INHALATION SCH ×2 (09:35→20:33)
[2023-02-02] MEDS: IPRATROPIUM-ALBUTEROL 3 ML NEB INHALATION SCH ×4 (09:36→20:33)
[2023-02-02 10:03] LABS: African American GFR (CKD) 57 (>60 ml/min/1.73 sqM); Anion Gap 12 mmol/L; Blood Urea Nitrogen 46 mg/dL (9-20); Calcium 8.2 mg/dL (8.4-10.2); Carbon Dioxide 18 mmol/L (22-30); Chloride 107 mmol/L (98-107); Glucose 112 mg/dL (74-99); Non-African American GFR(CKD) 49 (>60 ml/min/1.73 sqM); Sodium 137 mmol/L (137-145)
[2023-02-02 10:16] LABS: Anisocytosis Moderate; HGB 7.6 gm/dL (13.0-17.5); Hypochromasia Marked; MCH 33.7 pg (25.0-35.0); MCHC 31.9 g/dL (31.0-37.0); MCV 105.8 fL (80.0-100.0); Macrocytosis Marked; Platelet Count 259 k/uL (150-450); Poikilocytosis Moderate; RBC 2.27 m/uL (4.30-5.90); WBC 12.5 k/uL (3.8-10.6)
[2023-02-02 11:36] LABS: Glucose,Whole Blood 156 mg/dL (70-110)
--- NOTE | 2023-02-02 12:17 | P.PN ---
Subjective Progress Note Date: 02/02/23 Principal diagnosis: Respiratory failure. This is a 72-year-old male patient who is a poor historian who is residing in an extended care facility who was brought in by EMS yesterday for shortness of breath. He does have a history of chronic obstructive pulmonary disease, conges tive heart failure, chronic kidney disease, atrial fibrillation, diabetes mellitus, hypertension, hyperlipidemia, coronary disease with previous stent placement, anxiety/depression, former smoker. He was just discharged from here on 01/27/2023. Chest x-ray reveals a stable chest with basilar densities which were unchanged compared to 01/26/2023. Count 15.2. Hemoglobin 8.0. Platelets 427. Sodium 136. Potassium 4.7. Bicarb 16. BUN 56. Creatinine 1.63. Glucose 150. Urinalysis positive for many bacteria large leukocyte esterase and high WBCs. He is seen today in consultation on the selective care unit. He is currently resting comfortably in bed. Awake and alert. Underwent unable to give much history. He really required BiPAP support. He is currently on 4 L nasal cannula with O2 saturations up to 99%. Slightly tachycardic. He is initiated on DuoNeb inhalations, Pulmicort inhalations. IV diuretics. Anticoagulated with Eliquis. The patient was seen and evaluated today 01/31/2023 in follow-up on the selective care unit. He is currently resting fairly comfortably in bed. He is on BiPAP 12/5 on 40% FiO2. Follow up chest x-ray is stable with just a trace right pleural effusion. Blood cultures revealed no growth. Sodium 132. Potassium 4.8. Bicarb 15. BUN 55. Creatinine 1.3. Glucose 188. If he is continued on DuoNeb inhalations, Pulmicort inhalations. He is continued on Lasix 20 mg IV twice a day. Currently in a negative balance. Progress note dated 02/01/2023. 72-year-old male who was seen today in room 380. Currently, the patient's on 3 L of oxygen. His BiPAP settings included a IPAP of 12, EPAP of 5, and 40%. The patient is not receiving any IV fluids. His admitted to the hospital with a diagnosis of congestive heart failure, respiratory failure, and hypoxemia. White count is 12.8, hemoglobin 7.7, hematocrit 24.4, with a platelet count 334,000. Sodium 135, potassium 3.9, chlorides 106, CO2 18, anion gap 11, BUN 53, and creatinine 1.65. Glucose 112. Chest x-ray from January 31 shows a stable examination demonstrated trace right pleural effusion. Progress note dated 02/02/2023. 72-year-old male seen today in room 380. Yesterday, he was on 3 L of oxygen, but today, the patient is on BiPAP, with settings of 12/5, and 40%. He appears relatively comfortable. He is not receiving any IV fluids. He was admitted to the hospital with a diagnosis of CHF, respiratory failure, and hypoxemia. White count 12.5, hemoglobin 7.6, hematocrit 24, and platelet count 259,000. Sodium 137, potassium 4, chlorides 107, CO2 18, anion gap 12, BUN 46, creatinine 1.42. Glucose 112. Calcium is 8.2. No recent chest x-ray to report. Objective - Vital Signs Vital signs: Vital Signs Temp 98.3 F 02/02/23 09:05 Pulse 100 02/02/23 09:48 Resp 16 02/02/23 09:05 BP 92/67 02/02/23 09:05 Pulse Ox 100 02/02/23 09:05 FiO2 40 02/02/23 09:36 Intake & Output 02/01/23 02/02/23 02/02/23 18:59 06:59 18:59 Intake Total 480 240 Output Total 500 800 650 Balance -20 -560 -650 Weight 80 kg Intake: Oral 480 240 Output: Urine 500 800 650 Other: Voiding Method Indwelling Catheter Indwelling Catheter Indwelling Catheter # Bowel Movements 1 - Exam No acute distress, oriented 3. The patient is currently on BiPAP. HEENT examination is grossly unremarkable. Mucous membranes are moist. No oral lesions. Neck supple. Full range of motion. No adenopathy thyromegaly or neck vein distention. Cardiovascular examination reveals regular rhythm rate. S1-S2 normal. No S3 or S4. No discernible murmur noted. Heart sounds are distant. Heart rate 100 bpm. Lungs reveal bibasilar crackles. Scattered rhonchi are noted. There are no wheezes. Breath sounds are equal bilaterally. BiPAP saturation is 100%. Abdomen soft bowel sounds are heard. No masses or tenderness. Extremities are intact. No cyanosis clubbing or edema. Skin is without rash or lesion. Neurologic examination is brief but nonfocal. - Labs CBC & Chem 7: 02/02/23 08:31 02/02/23 08:31 Labs: Abnormal Lab Results - Last 24 Hours (Table) 02/01/23 02/01/23 02/02/23 Range/Units 16:32 20:52 06:00 WBC (3.8-10.6) k/uL RBC (4.30-5.90) m/uL Hgb (13.0-17.5) gm/dL Hct (39.0-53.0) % MCV (80.0-100.0) fL RDW (11.5-15.5) % Macrocytosis Carbon Dioxide (22-30) mmol/L BUN (9-20) mg/dL Creatinine (0.66-1.25) mg/dL Glucose (74-99) mg/dL POC Glucose (mg/dL) 216 H 347 H 121 H (70-110) mg/dL Calcium (8.4-10.2) mg/dL 02/02/23 02/02/23 02/02/23 Range/Units 08:31 08:31 11:35 WBC 12.5 H (3.8-10.6) k/uL RBC 2.27 L (4.30-5.90) m/uL Hgb 7.6 L (13.0-17.5) gm/dL Hct 24.0 L (39.0-53.0) % MCV 105.8 H (80.0-100.0) fL RDW 22.0 H (11.5-15.5) % Macrocytosis Marked A Carbon Dioxide 18 L (22-30) mmol/L BUN 46 H (9-20) mg/dL Creatinine 1.42 H (0.66-1.25) mg/dL Glucose 112 H (74-99) mg/dL POC Glucose (mg/dL) 156 H (70-110) mg/dL Calcium 8.2 L (8.4-10.2) mg/dL Microbiology - Last 24 Hours (Table) 01/29/23 20:54 Urine Culture - Final Urine,Voided 01/29/23 09:54 Blood Culture - Preliminary Blood Assessment and Plan Assessment: Acute on chronic hypoxemic respiratory failure secondary to systolic congestive heart failure. Atrial fibrillation with varying ventricular response. Coronary disease with previous stent placement. Acute on chronic kidney disease. Hypertension. History of ventricular tachycardia with AICD placement. Hyperlipidemia. Diabetes mellitus. Poor overall functional performance based on the above-mentioned multiple comorbidities. half-way resident. Plan: Plan dated 02/01/2023. The patient currently remains on oxygen at 3 L. He is on BiPAP at nighttime, and intermittently during the day, with settings of 12/5, and 40%. The patient was admitted with a diagnosis of CHF. He's not receiving any IV fluids. Labs, x-rays, medications are reviewed. The patient's overall prognosis remains guarded. We will continue to follow the patient and make recommendations along the way. Plan dated 02/02/2023. Currently, the patient is on BiPAP. Saturations are 100%. Labs, x-rays, and medications are all reviewed. The patient is not receiving any IV fluids. We will continue to follow the patient, and make recommendations along the way. He was admitted with a diagnosis of CHF. His prognosis remains guarded. No additional recommendations are made at this time. Time with Patient: Less than 30
--- NOTE | 2023-02-02 13:19 | P.PN ---
Subjective Progress Note Date: 02/02/23 Patient is a 72-year-old male with systolic CHF, A. fib on Eliquis, CAD status post stents, COPD, type 2 diabetes, and hypertension who presented from rehab with complaints of shortness of breath and chest discomfort. Patient has had 2 recent hospitalizations due to C. diff colitis with sepsis. His most recent discharge was on 01/27/23. On arrival to the ER this hospital stay he was in significant respiratory distress and was placed on rescue BiPAP. He was also noted to be tachycardic with a pulse of 117. In the ER he underwent extensive evaluation. Laboratory analysis included CBC, coags, VBG, CMP, troponin, and BNP which were remarkable for white blood cell count 18.7, hemoglobin 8.9, platelets 546, INR 1.3, pH 7.3, bicarbonate VBG 20, potassium 5.6, carbon dioxide 16, BUN 55, creatinine 1.78, and BNP 25,500. Influenza A/B/RSV/COVID-19 testing was negative. Chest x-ray demonstrated fluid in the right minor fissure and blunting of the costophrenic angle. In the ER he was given a dose of Lasix IV push, Decadron 10 mg once, DuoNeb was not administered due to Covid test, and he received Zithromax 500 mg IV piggyback 1. Arrangements are made for admission. Patient's respiratory status improved with intermittent BiPAP and Lasix IV. Pulmonology and Cardiology followed the patient during his hospitalization. He was continued on Fidoxomicin for treatment of C.diff sepsis. 02/01 Patient was seen and examined. Currently on 2L NC. CBC WBC 12.8 Hg 7.7 MCV 106.4. BMP Na 135, bicarb 18, BUN 53, Cr 1.65, glu 112, Ca 8.1. Currently on BiPAP FiO2 40% PRN. Currently on Lasix 20 mg IV BID. Negative 332 cc over the past 24H. 02/02 Patient was seen and examined. Appears pale. Currently on BiPAP FiO2 40%. CBC WBC 12.5, Hg 7.6, MCV 105.8. BMP bicarb 18, BUN 46, Cr 1.42, glu 112, Ca 8.2. Currently on Lasix 20 mg IV BID. Negative 580 cc over the past 24H. General: non toxic, no distress, appears at stated age Derm: warm, dry Head: atraumatic, normocephalic, symmetric Eyes: EOMI, no lid lag, anicteric sclera Cardiovascular: S1S2 reg, no murmur Lungs: Decreased BS bilateral, no rhonchi, no rales , no accessory muscle use Ext: no gross muscle atrophy, no edema, no contractures Neuro: no focal neuro deficits Psych: Alert, oriented, appropriate affect Based on my assessment of this patient, this patient meets a high complexity level of care. Patient has an acute diagnosis of acute hypoxic respiratory failure due to CHF exacerbation that poses a threat to life or bodily function. Acute hypoxic respiratory failure: BiPAP PRN. Lasix IV as above. DuoNeb PRN for SOB/wheezing. Pulmicort INH BID. Telemetry monitoring. Pulmonology and Cardiology on board. HFrEF exacerbation: Lasix as above. Strict intake and outtake. Daily weights. RAJAN on CKD: Due to forced diuresis. Metabolic acidosis: Sodium bicarbonate 650 mg PO BID. AFib with RVR: Eliquis 5 mg PO BID. Amiodarone 400 mg PO BID. Metoprolol 50 mg PO BID C. difficile: Fidaxomicin 200 mg PO BID. Unspecified psych disorder: Risperidal 0.5 mg PO QHS. Zoloft 50 mg PO QD. History of CAD: Lipitor 40 mg PO QD. Plavix 75 mg PO QD. Diabetes mellitus: ISS. Levemir 10 units QD. CODE STATUS: FULL CODE DVT Prophylaxis: Eliquis. GI Prophylaxis: Designated medical POA if patient is not able to make medical decisions for emselves: Guardian I have reviewed the following surgical product sales consultant notes: Pulm, Cardio note. I have reviewed the results of the following tests: CBC, BMP. I have ordered the following tests: BMP. I have discussed the care of this patient with the following independent historian: I have independently interpreted the following test below: I have discussed the management of this patient with the following physician: This patient has a high risk of morbidity due to the following reasons: IV lasix requires intensive monitoring of electrolytes and renal function. Objective - Vital Signs Vital signs: Vital Signs Temp 98.3 F 02/02/23 09:05 Pulse 100 02/02/23 12:46 Resp 18 02/02/23 12:00 BP 109/77 02/02/23 12:00 Pulse Ox 98 02/02/23 12:00 FiO2 40 02/02/23 09:36 Intake & Output 02/01/23 02/02/23 02/02/23 18:59 06:59 18:59 Intake Total 480 240 Output Total 500 800 650 Balance -20 -560 -650 Weight 80 kg Intake: Oral 480 240 Output: Urine 500 800 650 Other: Voiding Method Indwelling Catheter Indwelling Catheter Indwelling Catheter # Bowel Movements 1 - Labs CBC & Chem 7: 02/02/23 08:31 02/02/23 08:31 Labs: Abnormal Lab Results - Last 24 Hours (Table) 02/01/23 02/01/23 02/02/23 Range/Units 16:32 20:52 06:00 WBC (3.8-10.6) k/uL RBC (4.30-5.90) m/uL Hgb (13.0-17.5) gm/dL Hct (39.0-53.0) % MCV (80.0-100.0) fL RDW (11.5-15.5) % Macrocytosis Carbon Dioxide (22-30) mmol/L BUN (9-20) mg/dL Creatinine (0.66-1.25) mg/dL Glucose (74-99) mg/dL POC Glucose (mg/dL) 216 H 347 H 121 H (70-110) mg/dL Calcium (8.4-10.2) mg/dL 02/02/23 02/02/23 02/02/23 Range/Units 08:31 08:31 11:35 WBC 12.5 H (3.8-10.6) k/uL RBC 2.27 L (4.30-5.90) m/uL Hgb 7.6 L (13.0-17.5) gm/dL Hct 24.0 L (39.0-53.0) % MCV 105.8 H (80.0-100.0) fL RDW 22.0 H (11.5-15.5) % Macrocytosis Marked A Carbon Dioxide 18 L (22-30) mmol/L BUN 46 H (9-20) mg/dL Creatinine 1.42 H (0.66-1.25) mg/dL Glucose 112 H (74-99) mg/dL POC Glucose (mg/dL) 156 H (70-110) mg/dL Calcium 8.2 L (8.4-10.2) mg/dL Microbiology - Last 24 Hours (Table) 01/29/23 20:54 Urine Culture - Final Urine,Voided 01/29/23 09:54 Blood Culture - Preliminary Blood
--- NOTE | 2023-02-02 15:21 | P.PN ---
Subjective Progress Note Date: 02/01/23 Principal diagnosis: Reason for follow up C. diff colitis Patient is a 72-year-old male with a past medical history significant for atrial fibrillation coronary artery disease heart failure diabetes mellitus hypertension hyperlipidemia patient recently did have multiple admission to the hospital initially he did have bacteremia subsequently admitted for C. difficile colitis, presenting back to hospital with worsening shortness of breath and swelling concerning for possible fluid overload. On today's evaluation that is02/01/2023, the patient remains to be afebrile, the patient is breathing comfortably on 3 L nasal cannula oxygen, the patient denies any chest pain, no significant cough or sputum production, patient denies nausea/vomiting or abdominal pain, he did have one bowel movement per the nursing staff Patient did have white count of 12.8, creatinine 1.65 Objective - Vital Signs Vital signs: Vital Signs Temp 97.8 F 02/01/23 12:00 Pulse 92 02/01/23 12:00 Resp 18 02/01/23 12:00 BP 91/54 02/01/23 12:00 Pulse Ox 98 02/01/23 12:00 FiO2 40 02/01/23 04:43 Intake & Output 01/31/23 02/01/23 02/01/23 18:59 06:59 18:59 Intake Total 120 300 360 Output Total 326 850 200 Balance -206 -550 160 Weight 106 kg 105.5 kg Intake: Oral 120 300 360 Output: Urine 325 850 200 Stool 1 Other: Voiding Method Indwelling Catheter Indwelling Catheter Indwelling Catheter # Bowel Movements 1 - Exam GENERAL DESCRIPTION: An elderly male lying in bed in no distress RESPIRATORY SYSTEM: Unlabored breathing , decreased breath sound at the base HEART: S1 S2 regular rate and rhythm , ABDOMEN: Soft , no tenderness EXTREMITIES: Diffuse swelling to bilateral lower extremity - Labs CBC & Chem 7: 02/02/23 08:31 02/02/23 08:31 Labs: Abnormal Lab Results - Last 24 Hours (Table) 01/31/23 01/31/23 01/31/23 Range/Units 12:35 16:24 20:13 WBC (3.8-10.6) k/uL RBC (4.30-5.90) m/uL Hgb (13.0-17.5) gm/dL Hct (39.0-53.0) % MCV (80.0-100.0) fL RDW (11.5-15.5) % Neutrophils # (1.3-7.7) k/uL Lymphocytes # (1.0-4.8) k/uL Macrocytosis Sodium 132 L (137-145) mmol/L Carbon Dioxide 15 L (22-30) mmol/L BUN 55 H (9-20) mg/dL Creatinine 1.83 H (0.66-1.25) mg/dL Glucose 188 H (74-99) mg/dL POC Glucose (mg/dL) 168 H 468 H (70-110) mg/dL Calcium (8.4-10.2) mg/dL 01/31/23 02/01/23 02/01/23 Range/Units 20:25 06:00 08:43 WBC 12.8 H (3.8-10.6) k/uL RBC 2.29 L (4.30-5.90) m/uL Hgb 7.7 L (13.0-17.5) gm/dL Hct 24.4 L (39.0-53.0) % MCV 106.4 H (80.0-100.0) fL RDW 21.4 H (11.5-15.5) % Neutrophils # 11.1 H (1.3-7.7) k/uL Lymphocytes # 0.9 L (1.0-4.8) k/uL Macrocytosis Marked A Sodium (137-145) mmol/L Carbon Dioxide (22-30) mmol/L BUN (9-20) mg/dL Creatinine (0.66-1.25) mg/dL Glucose (74-99) mg/dL POC Glucose (mg/dL) 194 H 156 H (70-110) mg/dL Calcium (8.4-10.2) mg/dL 02/01/23 02/01/23 Range/Units 08:43 11:24 WBC (3.8-10.6) k/uL RBC (4.30-5.90) m/uL Hgb (13.0-17.5) gm/dL Hct (39.0-53.0) % MCV (80.0-100.0) fL RDW (11.5-15.5) % Neutrophils # (1.3-7.7) k/uL Lymphocytes # (1.0-4.8) k/uL Macrocytosis Sodium 135 L (137-145) mmol/L Carbon Dioxide 18 L (22-30) mmol/L BUN 53 H (9-20) mg/dL Creatinine 1.65 H (0.66-1.25) mg/dL Glucose 112 H (74-99) mg/dL POC Glucose (mg/dL) 216 H (70-110) mg/dL Calcium 8.1 L (8.4-10.2) mg/dL Microbiology - Last 24 Hours (Table) 01/29/23 20:54 Urine Culture - Final Urine,Voided 01/29/23 09:54 Blood Culture - Preliminary Blood Assessment and Plan (1) C. difficile colitis Current Visit: No Status: Acute Code(s): A04.72 - ENTEROCOLITIS D/T CLOSTRIDIUM DIFFICILE, NOT SPCF RECUR SNOMED Code(s): 406054661 Plan: 1patient presented to hospital with increasing shortness that more likely related to underlying fluid overload as the patient did have significant swelling and evidence of effusion on chest x-ray clinically not behaving as pneumonia patient did not have any fever , 2patient remains to be afebrile patient white count is trending down we will continue the patient on Deficid and monitor clinical course closely Dictation was produced using [employer] dictation software. please excuse any grammatical, word or spelling errors. Time with Patient: Less than 30
--- NOTE | 2023-02-02 15:23 | P.PN ---
Subjective Progress Note Date: 02/02/23 Principal diagnosis: Reason for follow up C. diff colitis Patient is a 72-year-old male with a past medical history significant for atrial fibrillation coronary artery disease heart failure diabetes mellitus hypertension hyperlipidemia patient recently did have multiple admission to the hospital initially he did have bacteremia subsequently admitted for C. difficile colitis, presenting back to hospital with worsening shortness of breath and swelling concerning for possible fluid overload. On today's evaluation that is 02/02/2023, the patient denies any fever or any chills, the patient is breathing comfortably on 3 L nasal cannula supplemental oxygen, patient denies chest pain or cough and no sputum production, patient denies Abdominal pain, no nausea/vomiting, no diarrhea reported by the nursing staff Patient did have white count of 12.5, creatinine is 1.42, blood cultures so far negative urine culture negative Objective - Vital Signs Vital signs: Vital Signs Temp 98.3 F 02/02/23 09:05 Pulse 100 02/02/23 12:46 Resp 18 02/02/23 12:00 BP 109/77 02/02/23 12:00 Pulse Ox 98 02/02/23 12:00 FiO2 40 02/02/23 09:36 Intake & Output 02/01/23 02/02/23 02/02/23 18:59 06:59 18:59 Intake Total 480 240 222 Output Total 500 800 650 Balance -20 -560 -428 Weight 80 kg Intake: Oral 480 240 222 Output: Urine 500 800 650 Other: Voiding Method Indwelling Catheter Indwelling Catheter Indwelling Catheter # Bowel Movements 1 1 - Exam GENERAL DESCRIPTION: An elderly male lying in bed in no distress RESPIRATORY SYSTEM: Unlabored breathing , decreased breath sound at the base HEART: S1 S2 regular rate and rhythm , ABDOMEN: Soft , no tenderness EXTREMITIES: Diffuse swelling to bilateral lower extremity - Labs CBC & Chem 7: 02/02/23 08:31 02/02/23 08:31 Labs: Abnormal Lab Results - Last 24 Hours (Table) 02/01/23 02/01/23 02/02/23 Range/Units 16:32 20:52 06:00 WBC (3.8-10.6) k/uL RBC (4.30-5.90) m/uL Hgb (13.0-17.5) gm/dL Hct (39.0-53.0) % MCV (80.0-100.0) fL RDW (11.5-15.5) % Macrocytosis Carbon Dioxide (22-30) mmol/L BUN (9-20) mg/dL Creatinine (0.66-1.25) mg/dL Glucose (74-99) mg/dL POC Glucose (mg/dL) 216 H 347 H 121 H (70-110) mg/dL Calcium (8.4-10.2) mg/dL 02/02/23 02/02/23 02/02/23 Range/Units 08:31 08:31 11:35 WBC 12.5 H (3.8-10.6) k/uL RBC 2.27 L (4.30-5.90) m/uL Hgb 7.6 L (13.0-17.5) gm/dL Hct 24.0 L (39.0-53.0) % MCV 105.8 H (80.0-100.0) fL RDW 22.0 H (11.5-15.5) % Macrocytosis Marked A Carbon Dioxide 18 L (22-30) mmol/L BUN 46 H (9-20) mg/dL Creatinine 1.42 H (0.66-1.25) mg/dL Glucose 112 H (74-99) mg/dL POC Glucose (mg/dL) 156 H (70-110) mg/dL Calcium 8.2 L (8.4-10.2) mg/dL Microbiology - Last 24 Hours (Table) 01/29/23 20:54 Urine Culture - Final Urine,Voided 01/29/23 09:54 Blood Culture - Preliminary Blood Assessment and Plan (1) C. difficile colitis Current Visit: No Status: Acute Code(s): A04.72 - ENTEROCOLITIS D/T CLOSTRIDIUM DIFFICILE, NOT SPCF RECUR SNOMED Code(s): 427223036 Plan: 1patient presented to hospital with increasing shortness that more likely relat ed to underlying fluid overload as the patient did have significant swelling and evidence of effusion on chest x-ray clinically not behaving as pneumonia patient did not have any fever , 2patient did have overall improvement in his diarrhea and will continue with Deficid and monitor clinical course closely Dictation was produced using [employer] dictation software. please excuse any grammatical, word or spelling errors. Time with Patient: Less than 30
[2023-02-02 17:07] LABS: Glucose,Whole Blood 168 mg/dL (70-110)
--- NOTE | 2023-02-02 18:00 | P.PN ---
Subjective Progress Note Date: 02/02/23 This is a 72-year-old gentleman who was brought from extended care facility to the hospital for further evaluation of shortness of breath. The patient does have a past medical history significant for coronary artery disease with a prior revascularization internal stenting as well as ischemic cardiomyopathy with known ejection fraction between 35-40% as well as hypertension and dyslipidemia and chronic anemia and chronic kidney disease and chronic atrial fibrillation. The patient was brought with change in mental status and also with shortness of breath with exertion which has progressed associated with edema in the upper and lower extremities. No pain in the chest and no dizziness or lightheadedness and no feeling of heart racing or fluttering and no presyncope or syncope. The patient was not receiving any oral diuretics. He had multiple hospital admissions with heart failure. During his hospital stay he underwent an EKG which showed underlying atrial fibrillation with RVR previously and in the proBNP came in to be elevated at 25,000 and chest x-ray showed chronic changes only. The patient is in failure clearly. He is hypoxic. He does have upper and lower extremities significant pitting edema noted. His kidney function is abnormal but that has been stable does have chronic kidney disease and his hemoglobin is abnormal and has been stable and chronic as well. The examination is remarkable for severe upper and lower extremity is pitting edema. He does have also diminished breathing sounds bilaterally. Echo from September 2022 showed impaired LV function was EF between 35-40% 02/02/23 Patient continues to be in continuous BiPAP support. His blood pressure is low normal. He is currently rate controlled atrial fibrillation. Assessment Heart failure with reduced ejection fraction with right and left failure Persistent atrial fibrillation, rate controlled CAD with a prior stenting Ischemic cardiomyopathy Renal failure appeared to be chronic Anemia appears to be chronic Multiple conditions and permanent atrial fibrillation Plan Continue IV Lasix 20 mg twice daily Discontinue Plavix as his last PCI was more than 12 months ago. He also has chronic anemia. Continue aspirin Continue anticoagulation with Eliquis Objective - Vital Signs Vital signs: Vital Signs Temp 98.3 F 02/02/23 09:05 Pulse 100 02/02/23 12:46 Resp 18 02/02/23 12:00 BP 109/77 02/02/23 12:00 Pulse Ox 98 02/02/23 12:00 FiO2 40 02/02/23 09:36 Intake & Output 02/01/23 02/02/23 02/02/23 18:59 06:59 18:59 Intake Total 480 240 222 Output Total 500 800 651 Balance -20 -643 -207 Weight 80 kg Intake: Oral 480 240 222 Output: Urine 500 800 650 Stool 1 Other: Voiding Method Indwelling Catheter Indwelling Catheter Indwelling Catheter # Bowel Movements 1 1 - Labs CBC & Chem 7: 02/02/23 08:31 02/02/23 08:31 Labs: Abnormal Lab Results - Last 24 Hours (Table) 02/01/23 02/02/23 02/02/23 Range/Units 20:52 06:00 08:31 WBC 12.5 H (3.8-10.6) k/uL RBC 2.27 L (4.30-5.90) m/uL Hgb 7.6 L (13.0-17.5) gm/dL Hct 24.0 L (39.0-53.0) % MCV 105.8 H (80.0-100.0) fL RDW 22.0 H (11.5-15.5) % Macrocytosis Marked A Carbon Dioxide (22-30) mmol/L BUN (9-20) mg/dL Creatinine (0.66-1.25) mg/dL Glucose (74-99) mg/dL POC Glucose (mg/dL) 347 H 121 H (70-110) mg/dL Calcium (8.4-10.2) mg/dL 02/02/23 02/02/23 02/02/23 Range/Units 08:31 11:35 17:06 WBC (3.8-10.6) k/uL RBC (4.30-5.90) m/uL Hgb (13.0-17.5) gm/dL Hct (39.0-53.0) % MCV (80.0-100.0) fL RDW (11.5-15.5) % Macrocytosis Carbon Dioxide 18 L (22-30) mmol/L BUN 46 H (9-20) mg/dL Creatinine 1.42 H (0.66-1.25) mg/dL Glucose 112 H (74-99) mg/dL POC Glucose (mg/dL) 156 H 168 H (70-110) mg/dL Calcium 8.2 L (8.4-10.2) mg/dL Microbiology - Last 24 Hours (Table) 01/29/23 20:54 Urine Culture - Final Urine,Voided 01/29/23 09:54 Blood Culture - Preliminary Blood
[2023-02-02 20:22] LABS: Glucose,Whole Blood 222 mg/dL (70-110)
[2023-02-02] MEDS: risperiDONE 0.5 MG TAB PO SCH (21:30)
[2023-02-02] MEDS: ATORVASTATIN 40 MG TAB PO SCH (21:30)
[2023-02-02] MEDS: SERTRALINE 50 MG TAB PO SCH (21:30)
[2023-02-02] MEDS: HYDROcodone/APAP 5-325MG 1 EACH TAB PO PRN (21:32)
[2023-02-03 06:22] LABS: Glucose,Whole Blood 173 mg/dL (70-110)
[2023-02-03] MEDS: PANTOPRAZOLE 40 MG TABLET PO SCH (06:45)
[2023-02-03] MEDS: MIDODRINE 5 MG TAB PO SCH ×3 (06:45→16:48)
[2023-02-03] MEDS: INSULIN ASPART (NovoLOG) 100 UNIT/ML VIAL SQ SCH ×4 (06:46→20:38)
[2023-02-03] MEDS: INSULIN DETEMIR (LEVEMIR) 100 UNIT/ML SYR SQ SCH (06:46)
[2023-02-03] MEDS: BUDESONIDE 1 MG/2 ML NEBU INHALATION SCH ×2 (08:22→21:20)
[2023-02-03] MEDS: IPRATROPIUM-ALBUTEROL 3 ML NEB INHALATION SCH ×4 (08:22→21:19)
[2023-02-03] MEDS: FERROUS SULFATE 325 MG TAB PO SCH (08:45)
[2023-02-03] MEDS: THIAMINE 100 MG TAB PO SCH (08:45)
[2023-02-03] MEDS: allopurinoL 100 MG TAB PO SCH (08:45)
[2023-02-03] MEDS: SODIUM BICARBONATE TAB 650 MG TAB PO SCH ×2 (08:45→16:48)
[2023-02-03] MEDS: APIXABAN 5 MG TAB PO SCH ×2 (08:45→16:49)
[2023-02-03] MEDS: FIDAXOMICIN 200 MG TABLET PO SCH ×2 (08:45→20:37)
[2023-02-03] MEDS: OXYBUTYNIN XL 5 MG TAB.ER.24 PO SCH (08:45)
[2023-02-03] MEDS: METOPROLOL TARTRATE 50 MG TAB PO SCH ×2 (08:45→20:37)
[2023-02-03] MEDS: FUROSEMIDE 10 MG/ML 2 ML VIAL IV SCH (08:45)
[2023-02-03] MEDS: ASPIRIN 81 MG PO SCH (08:45)
[2023-02-03] MEDS: AMIODARONE 200 MG TAB PO SCH (08:46)
[2023-02-03 10:37] LABS: Anisocytosis Moderate; HCT 23.9 % (39.0-53.0); HGB 7.5 gm/dL (13.0-17.5); Hypochromasia Marked; MCH 33.9 pg (25.0-35.0); MCHC 31.3 g/dL (31.0-37.0); MCV 108.3 fL (80.0-100.0); Macrocytosis Marked; Mean Platelet Volume 7.4; Platelet Count 244 k/uL (150-450); Poikilocytosis Moderate; RDW 22.3 % (11.5-15.5); WBC 11.1 k/uL (3.8-10.6)
[2023-02-03 10:56] LABS: African American GFR (CKD) 62 (>60 ml/min/1.73 sqM); Anion Gap 10 mmol/L; Blood Urea Nitrogen 40 mg/dL (9-20); Calcium 7.9 mg/dL (8.4-10.2); Carbon Dioxide 23 mmol/L (22-30); Chloride 104 mmol/L (98-107); Glucose 178 mg/dL (74-99); Non-African American GFR(CKD) 54 (>60 ml/min/1.73 sqM); Potassium 3.5 mmol/L (3.5-5.1); Sodium 137 mmol/L (137-145)
[2023-02-03 11:48] LABS: Glucose,Whole Blood 226 mg/dL (70-110)
--- NOTE | 2023-02-03 12:19 | P.PN ---
Subjective Progress Note Date: 02/03/23 Patient is a 72-year-old male with systolic CHF, A. fib on Eliquis, CAD status post stents, COPD, type 2 diabetes, and hypertension who presented from rehab with complaints of shortness of breath and chest discomfort. Patient has had 2 recent hospitalizations due to C. diff colitis with sepsis. His most recent discharge was on 01/27/23. On arrival to the ER this hospital stay he was in significant respiratory distress and was placed on rescue BiPAP. He was also noted to be tachycardic with a pulse of 117. In the ER he underwent extensive evaluation. Laboratory analysis included CBC, coags, VBG, CMP, troponin, and BNP which were remarkable for white blood cell count 18.7, hemoglobin 8.9, platelets 546, INR 1.3, pH 7.3, bicarbonate VBG 20, potassium 5.6, carbon dioxide 16, BUN 55, creatinine 1.78, and BNP 25,500. Influenza A/B/RSV/COVID-19 testing was negative. Chest x-ray demonstrated fluid in the right minor fissure and blunting of the costophrenic angle. In the ER he was given a dose of Lasix IV push, Decadron 10 mg once, DuoNeb was not administered due to Covid test, and he received Zithromax 500 mg IV piggyback 1. Arrangements are made for admission. Patient's respiratory status improved with intermittent BiPAP and Lasix IV. Pulmonology and Cardiology followed the patient during his hospitalization. He was continued on Fidoxomicin for treatment of C.diff sepsis. 02/01 Patient was seen and examined. Currently on 2L NC. CBC WBC 12.8 Hg 7.7 MCV 106.4. BMP Na 135, bicarb 18, BUN 53, Cr 1.65, glu 112, Ca 8.1. Currently on BiPAP FiO2 40% PRN. Currently on Lasix 20 mg IV BID. Negative 332 cc over the past 24H. 02/02 Patient was seen and examined. Appears pale. Currently on BiPAP FiO2 40%. CBC WBC 12.5, Hg 7.6, MCV 105.8. BMP bicarb 18, BUN 46, Cr 1.42, glu 112, Ca 8.2. Currently on Lasix 20 mg IV BID. Negative 756 cc over the past 24H. 11/29 Patient was seen and examined. He continues to look fluid overloaded. Cardiology has increased his Lasix to 40 mg IV BID. CBC WBC 11.1, Hg 7.5, MCV 108.3. BMP BUN 40, Cr 1.31, glu 178, Ca 7.9. Negative 580 cc over the past 24H. General: non toxic, no distress, appears at stated age Derm: warm, dry Head: atraumatic, normocephalic, symmetric Eyes: EOMI, no lid lag, anicteric sclera Cardiovascular: S1S2 reg, no murmur Lungs: Decreased BS bilateral, no rhonchi, no rales , no accessory muscle use Ext: no gross muscle atrophy, 2+ edema, no contractures Neuro: no focal neuro deficits Psych: Alert, oriented, appropriate affect Based on my assessment of this patient, this patient meets a high complexity level of care. Patient has an acute diagnosis of acute hypoxic respiratory failure due to CHF exacerbation that poses a threat to life or bodily function. Acute hypoxic respiratory failure: BiPAP PRN. Lasix IV as above. DuoNeb PRN for SOB/wheezing. Pulmicort INH BID. Telemetry monitoring. Pulmonology and Card iology on board. HFrEF exacerbation: Lasix as above. Strict intake and outtake. Daily weights. RAJAN on CKD: Due to forced diuresis. Metabolic acidosis: Sodium bicarbonate 650 mg PO BID. AFib with RVR: Eliquis 5 mg PO BID. Amiodarone 400 mg PO BID. Metoprolol 50 mg PO BID C. difficile: Fidaxomicin 200 mg PO BID. Unspecified psych disorder: Risperidal 0.5 mg PO QHS. Zoloft 50 mg PO QD. History of CAD: Lipitor 40 mg PO QD. ASA 81 mg PO QD. Diabetes mellitus: ISS. Levemir 10 units QD. CODE STATUS: FULL CODE DVT Prophylaxis: Eliquis. GI Prophylaxis: Designated medical POA if patient is not able to make medical decisions for themselves: Guardian I have reviewed the following product support consultant notes: Pulm, ID, Cardio note. I have reviewed the results of the following tests: CBC, BMP. I have ordered the following tests: BMP. I have discussed the care of this patient with the following independent historian: I have independently interpreted the following test below: I have discussed the management of this patient with the following physician: This patient has a high risk of morbidity due to the following reasons: IV lasix requires intensive monitoring of electrolytes and renal function. Objective - Vital Signs Vital signs: Vital Signs Temp 97.5 F L 02/03/23 08:45 Pulse 93 02/03/23 11:55 Resp 18 02/03/23 11:55 BP 112/78 02/03/23 11:55 Pulse Ox 97 02/03/23 11:55 FiO2 40 02/03/23 04:00 Intake & Output 02/02/23 02/03/23 02/03/23 18:59 06:59 18:59 Intake Total 340 10 360 Output Total 651 700 Balance -311 -690 360 Weight 89.5 kg Intake: IV 10 Invasive Line 1 10 Oral 340 360 Output: Urine 650 700 Stool 1 Other: Voiding Method Indwelling Catheter Indwelling Catheter Indwelling Catheter # Bowel Movements 1 1 - Labs CBC & Chem 7: 02/03/23 10:04 02/03/23 10:04 Labs: Abnormal Lab Results - Last 24 Hours (Table) 02/02/23 02/02/23 02/03/23 Range/Units 17:06 20:20 06:21 WBC (3.8-10.6) k/uL RBC (4.30-5.90) m/uL Hgb (13.0-17.5) gm/dL Hct (39.0-53.0) % MCV (80.0-100.0) fL RDW (11.5-15.5) % Macrocytosis BUN (9-20) mg/dL Creatinine (0.66-1.25) mg/dL Glucose (74-99) mg/dL POC Glucose (mg/dL) 168 H 222 H 173 H (70-110) mg/dL Calcium (8.4-10.2) mg/dL 02/03/23 02/03/23 02/03/23 Range/Units 10:04 10:04 11:46 WBC 11.1 H (3.8-10.6) k/uL RBC 2.20 L (4.30-5.90) m/uL Hgb 7.5 L (13.0-17.5) gm/dL Hct 23.9 L (39.0-53.0) % MCV 108.3 H (80.0-100.0) fL RDW 22.3 H (11.5-15.5) % Macrocytosis Marked A BUN 40 H (9-20) mg/dL Creatinine 1.31 H (0.66-1.25) mg/dL Glucose 178 H (74-99) mg/dL POC Glucose (mg/dL) 226 H (70-110) mg/dL Calcium 7.9 L (8.4-10.2) mg/dL Microbiology - Last 24 Hours (Table) 01/29/23 20:54 Urine Culture - Final Urine,Voided
--- NOTE | 2023-02-03 14:20 | P.PN ---
Subjective Progress Note Date: 02/03/23 Principal diagnosis: Respiratory failure. This is a 72-year-old male patient who is a poor historian who is residing in an extended care facility who was brought in by EMS yesterday for shortness of breath. He does have a history of chronic obstructive pulmonary disease, conges tive heart failure, chronic kidney disease, atrial fibrillation, diabetes mellitus, hypertension, hyperlipidemia, coronary disease with previous stent placement, anxiety/depression, former smoker. He was just discharged from here on 01/27/2023. Chest x-ray reveals a stable chest with basilar densities which were unchanged compared to 01/26/2023. Count 15.2. Hemoglobin 8.0. Platelets 427. Sodium 136. Potassium 4.7. Bicarb 16. BUN 56. Creatinine 1.63. Glucose 150. Urinalysis positive for many bacteria large leukocyte esterase and high WBCs. He is seen today in consultation on the selective care unit. He is currently resting comfortably in bed. Awake and alert. Underwent unable to give much history. He really required BiPAP support. He is currently on 4 L nasal cannula with O2 saturations up to 99%. Slightly tachycardic. He is initiated on DuoNeb inhalations, Pulmicort inhalations. IV diuretics. Anticoagulated with Eliquis. The patient was seen and evaluated today 01/31/2023 in follow-up on the selective care unit. He is currently resting fairly comfortably in bed. He is on BiPAP 12/5 on 40% FiO2. Follow up chest x-ray is stable with just a trace right pleural effusion. Blood cultures revealed no growth. Sodium 132. Potassium 4.8. Bicarb 15. BUN 55. Creatinine 1.3. Glucose 188. If he is continued on DuoNeb inhalations, Pulmicort inhalations. He is continued on Lasix 20 mg IV twice a day. Currently in a negative balance. Progress note dated 02/01/2023. 72-year-old male who was seen today in room 380. Currently, the patient's on 3 L of oxygen. His BiPAP settings included a IPAP of 12, EPAP of 5, and 40%. The patient is not receiving any IV fluids. His admitted to the hospital with a diagnosis of congestive heart failure, respiratory failure, and hypoxemia. White count is 12.8, hemoglobin 7.7, hematocrit 24.4, with a platelet count 334,000. Sodium 135, potassium 3.9, chlorides 106, CO2 18, anion gap 11, BUN 53, and creatinine 1.65. Glucose 112. Chest x-ray from January 31 shows a stable examination demonstrated trace right pleural effusion. Progress note dated 02/02/2023. 72-year-old male seen today in room 380. Yesterday, he was on 3 L of oxygen, but today, the patient is on BiPAP, with settings of 12/5, and 40%. He appears relatively comfortable. He is not receiving any IV fluids. He was admitted to the hospital with a diagnosis of CHF, respiratory failure, and hypoxemia. White count 12.5, hemoglobin 7.6, hematocrit 24, and platelet count 259,000. Sodium 137, potassium 4, chlorides 107, CO2 18, anion gap 12, BUN 46, creatinine 1.42. Glucose 112. Calcium is 8.2. No recent chest x-ray to report. Progress note dated 02/03/2023. 72-year-old male seen in room 380. The patient is currently on 3 L of oxygen. He does use BiPAP from time to time. Currently, he is on his nasal cannula. Saturations are 100% on 3 L. Clinically, the patient is stable. Labs today include a white count 11.1, hemoglobin 7.5, hematocrit 23.9, and a platelet count of 244,000. Sodium 137, potassium 3.5, chlorides 104, CO2 23, BUN 40, and creatinine 1.31. Glucose 178. Calcium is 7.9. Objective - Vital Signs Vital signs: Vital Signs Temp 97.5 F L 02/03/23 08:45 Pulse 93 02/03/23 11:55 Resp 18 02/03/23 11:55 BP 112/78 02/03/23 11:55 Pulse Ox 97 02/03/23 11:55 FiO2 40 02/03/23 04:00 Intake & Output 02/02/23 02/03/23 02/03/23 18:59 06:59 18:59 Intake Total 340 10 600 Output Total 651 700 Balance -311 -690 600 Weight 89.5 kg 89.5 kg Intake: IV 10 Invasive Line 1 10 Oral 340 600 Output: Urine 650 700 Stool 1 Other: Voiding Method Indwelling Catheter Indwelling Catheter Indwelling Catheter # Bowel Movements 1 1 - Exam No acute distress, oriented 3. The patient is currently on 3 L nasal cannula. HEENT examination is grossly unremarkable. Mucous membranes are moist. No oral lesions. Neck supple. Full range of motion. No adenopathy thyromegaly or neck vein distention. Cardiovascular examination reveals regular rhythm rate. S1-S2 normal. No S3 or S4. No discernible murmur noted. Heart sounds are distant. Heart rate 93 bpm. Lungs reveal bibasilar crackles. Scattered rhonchi are noted. There are no wheezes. Breath sounds are equal bilaterally. 3 L saturation is 97%. Abdomen soft bowel sounds are heard. No masses or tenderness. Extremities are intact. No cyanosis clubbing or edema. Skin is without rash or lesion. Neurologic examination is brief but nonfocal. - Labs CBC & Chem 7: 02/03/23 10:04 02/03/23 10:04 Labs: Abnormal Lab Results - Last 24 Hours (Table) 02/02/23 02/02/23 02/03/23 Range/Units 17:06 20:20 06:21 WBC (3.8-10.6) k/uL RBC (4.30-5.90) m/uL Hgb (13.0-17.5) gm/dL Hct (39.0-53.0) % MCV (80.0-100.0) fL RDW (11.5-15.5) % Macrocytosis BUN (9-20) mg/dL Creatinine (0.66-1.25) mg/dL Glucose (74-99) mg/dL POC Glucose (mg/dL) 168 H 222 H 173 H (70-110) mg/dL Calcium (8.4-10.2) mg/dL 02/03/23 02/03/23 02/03/23 Range/Units 10:04 10:04 11:46 WBC 11.1 H (3.8-10.6) k/uL RBC 2.20 L (4.30-5.90) m/uL Hgb 7.5 L (13.0-17.5) gm/dL Hct 23.9 L (39.0-53.0) % MCV 108.3 H (80.0-100.0) fL RDW 22.3 H (11.5-15.5) % Macrocytosis Marked A BUN 40 H (9-20) mg/dL Creatinine 1.31 H (0.66-1.25) mg/dL Glucose 178 H (74-99) mg/dL POC Glucose (mg/dL) 226 H (70-110) mg/dL Calcium 7.9 L (8.4-10.2) mg/dL Microbiology - Last 24 Hours (Table) 01/29/23 20:54 Urine Culture - Final Urine,Voided Assessment and Plan Assessment: Acute on chronic hypoxemic respiratory failure secondary to systolic congestive heart failure. Atrial fibrillation with varying ventricular response. Coronary disease with previous stent placement. Acute on chronic kidney disease. Hypertension. History of ventricular tachycardia with AICD placement. Hyperlipidemia. Diabetes mellitus. Poor overall functional performance based on the above-mentioned multiple comorbidities. [facility] resident. Plan: Plan dated 02/01/2023. The patient currently remains on oxygen at 3 L. He is on BiPAP at nighttime, and intermittently during the day, with settings of 12/5, and 40%. The patient was admitted with a diagnosis of CHF. He's not receiving any IV fluids. Labs, x-rays, medications are reviewed. The patient's overall prognosis remains guarded. We will continue to follow the patient and make recommendations along the way. Plan dated 02/02/2023. Currently, the patient is on BiPAP. Saturations are 100%. Labs, x-rays, and medications are all reviewed. The patient is not receiving any IV fluids. We will continue to follow the patient, and make recommendations along the way. He was admitted with a diagnosis of CHF. His prognosis remains guarded. No additional recommendations are made at this time. Plan dated 02/03/2023. The patient is seen today in room 380. The patient's currently on nasal O2 at 3 L. Saturations are 97%. Clinically, the patient appears to be relatively stable, and feels better. He does use his BiPAP device from time to time. He was admitted with a diagnosis of fluid overload/CHF. Labs, x-rays, medications are reviewed. Prognosis is certainly guarded. We will continue to follow the patient on a regular basis, and make recommendations where appropriate. Time with Patient: Less than 30
--- NOTE | 2023-02-03 15:10 | P.PN ---
Subjective HISTORY OF PRESENT ILLNESS: This is a 72-year-old gentleman who was brought from extended care facility to the hospital for further evaluation of shortness of breath. The patient does have a past medical history significant for coronary artery disease with a prior revascularization internal stenting as well as ischemic cardiomyopathy with known ejection fraction between 35-40% as well as hypertension and dyslipidemia and chronic anemia and chronic kidney disease and chronic atrial fibrillation. The patient was brought with change in mental status and also with shortness of breath with exertion which has progressed associated with edema in the upper and lower extremities. No pain in the chest and no dizziness or lightheadedness and no feeling of heart racing or fluttering and no presyncope or syncope. The pat iefranco was not receiving any oral diuretics. He had multiple hospital admissions with heart failure. During his hospital stay he underwent an EKG which showed underlying atrial fibrillation with RVR previously and in the proBNP came in to be elevated at 25,000 and chest x-ray showed chronic changes only. The patient is in failure clearly. He is hypoxic. He does have upper and lower extremities significant pitting edema noted. His kidney function is abnormal but that has been stable does have chronic kidney disease and his hemoglobin is abnormal and has been stable and chronic as well. The examination is remarkable for severe upper and lower extremity is pitting edema. He does have also diminished breathing sounds bilaterally. Echo from September 2022 showed impaired LV function was EF between 35-40% 02/02/23 Patient continues to be in continuous BiPAP support. His blood pressure is low normal. He is currently rate controlled atrial fibrillation. 02/03/2023 Patient examined this morning at the bedside. Patient currently denies chest pain or pressure. Reports minimal shortness of breath. He remains on IV Lasix. Creatinine 1.31 today. Hemoglobin 7.5. Telemetry reveals atrial fibrillation with controlled ventricular rate. PHYSICAL EXAM: VITAL SIGNS: Reviewed. GENERAL: Well-developed in no acute distress. NECK: Supple. No JVD or thyromegaly LUNGS: Respirations even and unlabored. Lungs essentially clear to auscultation bilaterally. HEART: Irregular rate and rhythm. S1 and S2 heard. EXTREMITIES: Normal range of motion. No clubbing or cyanosis. Peripheral pulses intact. No lower extremity edema ASSESSMENT: Acute on chronic heart failure with reduced ejection fraction Recent admission secondary to sepsis and recurrent C. diff Persistent atrial fibrillation with controlled ventricular rate Ischemic cardiomyopathy, EF 35-40% Coronary artery disease with previous stenting Ventricular tachycardia with previous AICD implantation Hypertension Hyperlipidemia Diabetes Chronic anemia PLAN: Continue current cardiac medications Increase Lasix to 40 mg every 12 hours Daily weights, accurate I&O, and monitoring of kidney function Further recommendations pending patient's course Nurse practitioner note has been reviewed by physician. Signing provider agrees with the documented findings, assessment, and plan of care. Objective - Vital Signs Vital signs: Vital Signs Temp 97.5 F L 02/03/23 08:45 Pulse 93 02/03/23 11:55 Resp 18 02/03/23 11:55 BP 112/78 02/03/23 11:55 Pulse Ox 97 02/03/23 11:55 FiO2 40 02/03/23 04:00 Intake & Output 02/02/23 02/03/23 02/03/23 18:59 06:59 18:59 Intake Total 340 10 600 Output Total 651 700 Balance -311 -690 600 Weight 89.5 kg 89.5 kg Intake: IV 10 Invasive Line 1 10 Oral 340 600 Output: Urine 650 700 Stool 1 Other: Voiding Method Indwelling Catheter Indwelling Catheter Indwelling Catheter # Bowel Movements 1 1 - Labs CBC & Chem 7: 02/03/23 10:04 02/03/23 10:04 Labs: Abnormal Lab Results - Last 24 Hours (Table) 02/02/23 02/02/23 02/03/23 Range/Units 17:06 20:20 06:21 WBC (3.8-10.6) k/uL RBC (4.30-5.90) m/uL Hgb (13.0-17.5) gm/dL Hct (39.0-53.0) % MCV (80.0-100.0) fL RDW (11.5-15.5) % Macrocytosis BUN (9-20) mg/dL Creatinine (0.66-1.25) mg/dL Glucose (74-99) mg/dL POC Glucose (mg/dL) 168 H 222 H 173 H (70-110) mg/dL Calcium (8.4-10.2) mg/dL 02/03/23 02/03/23 02/03/23 Range/Units 10:04 10:04 11:46 WBC 11.1 H (3.8-10.6) k/uL RBC 2.20 L (4.30-5.90) m/uL Hgb 7.5 L (13.0-17.5) gm/dL Hct 23.9 L (39.0-53.0) % MCV 108.3 H (80.0-100.0) fL RDW 22.3 H (11.5-15.5) % Macrocytosis Marked A BUN 40 H (9-20) mg/dL Creatinine 1.31 H (0.66-1.25) mg/dL Glucose 178 H (74-99) mg/dL POC Glucose (mg/dL) 226 H (70-110) mg/dL Calcium 7.9 L (8.4-10.2) mg/dL Microbiology - Last 24 Hours (Table) 01/29/23 20:54 Urine Culture - Final Urine,Voided
[2023-02-03 16:58] LABS: Glucose,Whole Blood 230 mg/dL (70-110)
[2023-02-03 19:48] LABS: Glucose,Whole Blood 359 mg/dL (70-110)
[2023-02-03] MEDS: risperiDONE 0.5 MG TAB PO SCH (20:37)
[2023-02-03] MEDS: ATORVASTATIN 40 MG TAB PO SCH (20:37)
[2023-02-03] MEDS: SERTRALINE 50 MG TAB PO SCH (20:37)
[2023-02-03] MEDS: FUROSEMIDE 10 MG/ML 4 ML VIAL IV SCH (20:38)
[2023-02-04 06:09] LABS: Glucose,Whole Blood 94 mg/dL (70-110)
[2023-02-04] MEDS: INSULIN ASPART (NovoLOG) 100 UNIT/ML VIAL SQ SCH ×4 (06:15→21:27)
[2023-02-04] MEDS: PANTOPRAZOLE 40 MG TABLET PO SCH (06:49)
[2023-02-04] MEDS: MIDODRINE 5 MG TAB PO SCH ×3 (06:49→16:39)
[2023-02-04] MEDS: INSULIN DETEMIR (LEVEMIR) 100 UNIT/ML SYR SQ SCH (06:49)
[2023-02-04] MEDS: FERROUS SULFATE 325 MG TAB PO SCH (08:57)
[2023-02-04] MEDS: AMIODARONE 200 MG TAB PO SCH (08:57)
[2023-02-04] MEDS: SODIUM BICARBONATE TAB 650 MG TAB PO SCH ×2 (08:57→16:39)
[2023-02-04] MEDS: ASPIRIN 81 MG PO SCH (08:57)
[2023-02-04] MEDS: THIAMINE 100 MG TAB PO SCH (08:57)
[2023-02-04] MEDS: APIXABAN 5 MG TAB PO SCH ×2 (08:57→16:39)
[2023-02-04] MEDS: allopurinoL 100 MG TAB PO SCH (08:57)
[2023-02-04] MEDS: FIDAXOMICIN 200 MG TABLET PO SCH ×2 (08:57→19:49)
[2023-02-04] MEDS: OXYBUTYNIN XL 5 MG TAB.ER.24 PO SCH (08:57)
[2023-02-04] MEDS: FUROSEMIDE 10 MG/ML 4 ML VIAL IV SCH ×2 (08:58→19:49)
[2023-02-04] MEDS: METOPROLOL TARTRATE 50 MG TAB PO SCH ×2 (09:00→19:49)
[2023-02-04] MEDS: BUDESONIDE 1 MG/2 ML NEBU INHALATION SCH ×2 (09:07→21:18)
[2023-02-04] MEDS: IPRATROPIUM-ALBUTEROL 3 ML NEB INHALATION SCH ×4 (09:07→21:18)
[2023-02-04 09:11] LABS: African American GFR (CKD) 67 (>60 ml/min/1.73 sqM); Anion Gap 11 mmol/L; Blood Urea Nitrogen 34 mg/dL (9-20); Calcium 7.9 mg/dL (8.4-10.2); Carbon Dioxide 23 mmol/L (22-30); Chloride 104 mmol/L (98-107); Glucose 83 mg/dL (74-99); Non-African American GFR(CKD) 58 (>60 ml/min/1.73 sqM); Potassium 3.4 mmol/L (3.5-5.1); Sodium 138 mmol/L (137-145)
[2023-02-04] MEDS: HYDROcodone/APAP 5-325MG 1 EACH TAB PO PRN (09:12)
[2023-02-04 09:14] LABS: Anisocytosis Moderate; Hypochromasia Marked; MCH 33.3 pg (25.0-35.0); MCHC 30.7 g/dL (31.0-37.0); MCV 108.7 fL (80.0-100.0); Macrocytosis Marked; Mean Platelet Volume 7.4; Platelet Count 272 k/uL (150-450); Poikilocytosis Moderate; RDW 22.7 % (11.5-15.5); WBC 11.7 k/uL (3.8-10.6)
[2023-02-04 11:46] LABS: Glucose,Whole Blood 294 mg/dL (70-110)
--- NOTE | 2023-02-04 12:50 | P.PN ---
Subjective HISTORY OF PRESENT ILLNESS: This is a 72-year-old gentleman who was brought from extended care facility to the hospital for further evaluation of shortness of breath. The patient does have a past medical history significant for coronary artery disease with a prior revascularization internal stenting as well as ischemic cardiomyopathy with known ejection fraction between 35-40% as well as hypertension and dyslipidemia and chronic anemia and chronic kidney disease and chronic atrial fibrillation. The patient was brought with change in mental status and also with shortness of breath with exertion which has progressed associated with edema in the upper and lower extremities. No pain in the chest and no dizziness or lightheadedness and no feeling of heart racing or fluttering and no presyncope or syncope. The luli whelan was not receiving any oral diuretics. He had multiple hospital admissions with heart failure. During his hospital stay he underwent an EKG which showed underlying atrial fibrillation with RVR previously and in the proBNP came in to be elevated at 25,000 and chest x-ray showed chronic changes only. The patient is in failure clearly. He is hypoxic. He does have upper and lower extremities significant pitting edema noted. His kidney function is abnormal but that has been stable does have chronic kidney disease and his hemoglobin is abnormal and has been stable and chronic as well. The examination is remarkable for severe upper and lower extremity is pitting edema. He does have also diminished breathing sounds bilaterally. Echo from September 2022 showed impaired LV function was EF between 35-40% 02/02/23 Patient continues to be in continuous BiPAP support. His blood pressure is low normal. He is currently rate controlled atrial fibrillation. 02/03/2023 Patient examined this morning at the bedside. Patient currently denies chest pain or pressure. Reports minimal shortness of breath. He remains on IV Lasix. Creatinine 1.31 today. Hemoglobin 7.5. Telemetry reveals atrial fibrillation with controlled ventricular rate. 03/06/2023 Patient examined this morning at the bedside. Patient denies chest pain or pressure. He continues to report shortness of breath. He continues to have lower summary edema although improved today. He remains in atrial fibrillation with controlled ventricular rate. Creatinine stable at 1.24. PHYSICAL EXAM: VITAL SIGNS: Reviewed. GENERAL: Well-developed in no acute distress. NECK: Supple. No JVD or thyromegaly LUNGS: Respirations even and unlabored. Lungs diminished at the bases. HEART: Irregular rate and rhythm. S1 and S2 heard. EXTREMITIES: Normal range of motion. No clubbing or cyanosis. Peripheral pulses intact. 1-2+ bilateral lower extremity edema ASSESSMENT: Acute on chronic heart failure with reduced ejection fraction Recent admission secondary to sepsis and recurrent C. diff Persistent atrial fibrillation with controlled ventricular rate Ischemic cardiomyopathy, EF 35-40% Coronary artery disease with previous stenting Ventricular tachycardia with previous AICD implantation Hypertension Hyperlipidemia Diabetes Chronic anemia PLAN: Continue current cardiac medications Continue Lasix IV 40 mg every 12 hours Daily weights, accurate I&O, and monitoring of kidney function Decrease Midodrine to 5 mg 3 times a day. Continue to monitor blood pressure Add Aldactone 12.5 mg daily. Will increase as tolerated. Further recommendations pending patient's course Nurse practitioner note has been reviewed by physician. Signing provider agrees with the documented findings, assessment, and plan of care. Objective - Vital Signs Vital signs: Vital Signs Temp 98.1 F 02/04/23 08:00 Pulse 116 H 02/04/23 09:25 Resp 18 02/04/23 08:00 BP 154/93 02/04/23 08:00 Pulse Ox 94 L 02/04/23 09:08 FiO2 40 02/04/23 04:54 Intake & Output 02/03/23 02/04/23 02/04/23 18:59 06:59 18:59 Intake Total 600 Output Total 1500 Balance 600 -1500 Weight 89.5 kg 108 kg Intake: Oral 600 Output: Urine 1500 Other: Voiding Method Indwelling Catheter Indwelling Catheter - Labs CBC & Chem 7: 02/04/23 08:55 02/04/23 07:49 Labs: Abnormal Lab Results - Last 24 Hours (Table) 02/03/23 02/03/23 02/03/23 Range/Units 10:04 10:04 11:46 WBC 11.1 H (3.8-10.6) k/uL RBC 2.20 L (4.30-5.90) m/uL Hgb 7.5 L (13.0-17.5) gm/dL Hct 23.9 L (39.0-53.0) % MCV 108.3 H (80.0-100.0) fL MCHC (31.0-37.0) g/dL RDW 22.3 H (11.5-15.5) % Macrocytosis Marked A Potassium (3.5-5.1) mmol/L BUN 40 H (9-20) mg/dL Creatinine 1.31 H (0.66-1.25) mg/dL Glucose 178 H (74-99) mg/dL POC Glucose (mg/dL) 226 H (70-110) mg/dL Calcium 7.9 L (8.4-10.2) mg/dL 02/03/23 02/03/23 02/04/23 Range/Units 16:54 19:47 07:49 WBC (3.8-10.6) k/uL RBC (4.30-5.90) m/uL Hgb (13.0-17.5) gm/dL Hct (39.0-53.0) % MCV (80.0-100.0) fL MCHC (31.0-37.0) g/dL RDW (11.5-15.5) % Macrocytosis Potassium 3.4 L (3.5-5.1) mmol/L BUN 34 H (9-20) mg/dL Creatinine (0.66-1.25) mg/dL Glucose (74-99) mg/dL POC Glucose (mg/dL) 230 H 359 H (70-110) mg/dL Calcium 7.9 L (8.4-10.2) mg/dL 02/04/23 Range/Units 08:55 WBC 11.7 H (3.8-10.6) k/uL RBC 2.40 L (4.30-5.90) m/uL Hgb 8.0 L (13.0-17.5) gm/dL Hct 26.0 L (39.0-53.0) % MCV 108.7 H (80.0-100.0) fL MCHC 30.7 L (31.0-37.0) g/dL RDW 22.7 H (11.5-15.5) % Macrocytosis Marked A Potassium (3.5-5.1) mmol/L BUN (9-20) mg/dL Creatinine (0.66-1.25) mg/dL Glucose (74-99) mg/dL POC Glucose (mg/dL) (70-110) mg/dL Calcium (8.4-10.2) mg/dL Microbiology - Last 24 Hours (Table) 01/29/23 09:54 Blood Culture - Final Blood
[2023-02-04] MEDS: SPIRONOLACTONE 25 MG TAB PO SCH (14:55)
--- NOTE | 2023-02-04 14:59 | P.PN ---
Subjective Progress Note Date: 02/04/23 Principal diagnosis: Respiratory failure. This is a 72-year-old male patient who is a poor historian who is residing in an extended care facility who was brought in by EMS yesterday for shortness of breath. He does have a history of chronic obstructive pulmonary disease, conges tive heart failure, chronic kidney disease, atrial fibrillation, diabetes mellitus, hypertension, hyperlipidemia, coronary disease with previous stent placement, anxiety/depression, former smoker. He was just discharged from here on 01/27/2023. Chest x-ray reveals a stable chest with basilar densities which were unchanged compared to 01/26/2023. Count 15.2. Hemoglobin 8.0. Platelets 427. Sodium 136. Potassium 4.7. Bicarb 16. BUN 56. Creatinine 1.63. Glucose 150. Urinalysis positive for many bacteria large leukocyte esterase and high WBCs. He is seen today in consultation on the selective care unit. He is currently resting comfortably in bed. Awake and alert. Underwent unable to give much history. He really required BiPAP support. He is currently on 4 L nasal cannula with O2 saturations up to 99%. Slightly tachycardic. He is initiated on DuoNeb inhalations, Pulmicort inhalations. IV diuretics. Anticoagulated with Eliquis. The patient was seen and evaluated today 01/31/2023 in follow-up on the selective care unit. He is currently resting fairly comfortably in bed. He is on BiPAP 12/5 on 40% FiO2. Follow up chest x-ray is stable with just a trace right pleural effusion. Blood cultures revealed no growth. Sodium 132. Potassium 4.8. Bicarb 15. BUN 55. Creatinine 1.3. Glucose 188. If he is continued on DuoNeb inhalations, Pulmicort inhalations. He is continued on Lasix 20 mg IV twice a day. Currently in a negative balance. Progress note dated 02/01/2023. 72-year-old male who was seen today in room 380. Currently, the patient's on 3 L of oxygen. His BiPAP settings included a IPAP of 12, EPAP of 5, and 40%. The patient is not receiving any IV fluids. His admitted to the hospital with a diagnosis of congestive heart failure, respiratory failure, and hypoxemia. White count is 12.8, hemoglobin 7.7, hematocrit 24.4, with a platelet count 334,000. Sodium 135, potassium 3.9, chlorides 106, CO2 18, anion gap 11, BUN 53, and creatinine 1.65. Glucose 112. Chest x-ray from January 31 shows a stable examination demonstrated trace right pleural effusion. Progress note dated 02/02/2023. 72-year-old male seen today in room 380. Yesterday, he was on 3 L of oxygen, but today, the patient is on BiPAP, with settings of 12/5, and 40%. He appears relatively comfortable. He is not receiving any IV fluids. He was admitted to the hospital with a diagnosis of CHF, respiratory failure, and hypoxemia. White count 12.5, hemoglobin 7.6, hematocrit 24, and platelet count 259,000. Sodium 137, potassium 4, chlorides 107, CO2 18, anion gap 12, BUN 46, creatinine 1.42. Glucose 112. Calcium is 8.2. No recent chest x-ray to report. Progress note dated 02/03/2023. 72-year-old male seen in room 380. The patient is currently on 3 L of oxygen. He does use BiPAP from time to time. Currently, he is on his nasal cannula. Saturations are 100% on 3 L. Clinically, the patient is stable. Labs today include a white count 11.1, hemoglobin 7.5, hematocrit 23.9, and a platelet count of 244,000. Sodium 137, potassium 3.5, chlorides 104, CO2 23, BUN 40, and creatinine 1.31. Glucose 178. Calcium is 7.9. Progress note dated 02/04/2023. This is a 72-year-old male seen in room 380. Currently, the patient's on 3 L by nasal cannula. At various times throughout the day, and at nighttime, the patient uses his BiPAP, with settings of 12/5, and 40%. The patient is not receiving any IV fluids at this time. Clinically, he looks awake and alert. His respiratory status has improved. Currently labs include a white count 11.7, hemoglobin 8, hematocrit 26, and platelet count 272,000. Sodium 138, potassium 3.4, chlorides 104, CO2 23, anion gap 11, BUN 34, and creatinine 1.24. Calcium is 7.9. Objective - Vital Signs Vital signs: Vital Signs Temp 99.1 F 02/04/23 12:00 Pulse 110 H 02/04/23 12:47 Resp 16 02/04/23 12:00 BP 128/83 02/04/23 12:00 Pulse Ox 97 02/04/23 12:00 FiO2 40 02/04/23 04:54 Intake & Output 02/03/23 02/04/23 02/04/23 18:59 06:59 18:59 Intake Total 600 Output Total 1500 Balance 600 -1500 Weight 89.5 kg 108 kg Intake: Oral 600 Output: Urine 1500 Other: Voiding Method Indwelling Catheter Indwelling Catheter Indwelling Catheter - Exam No acute distress, oriented 3. The patient is currently on 3 L nasal cannula. HEENT examination is grossly unremarkable. Mucous membranes are moist. No oral lesions. Neck supple. Full range of motion. No adenopathy thyromegaly or neck vein distention. Cardiovascular examination reveals regular rhythm rate. S1-S2 normal. No S3 or S4. No discernible murmur noted. Heart sounds are distant. Heart rate 99 bpm. Lungs reveal bibasilar crackles. Scattered rhonchi are noted. There are no wheezes. Breath sounds are equal bilaterally. 3 L saturation is 97%. Abdomen soft bowel sounds are heard. No masses or tenderness. Extremities are intact. No cyanosis clubbing or edema. Skin is without rash or lesion. Neurologic examination is brief but nonfocal. - Labs CBC & Chem 7: 02/04/23 08:55 02/04/23 07:49 Labs: Abnormal Lab Results - Last 24 Hours (Table) 02/03/23 02/03/23 02/04/23 Range/Units 16:54 19:47 07:49 WBC (3.8-10.6) k/uL RBC (4.30-5.90) m/uL Hgb (13.0-17.5) gm/dL Hct (39.0-53.0) % MCV (80.0-100.0) fL MCHC (31.0-37.0) g/dL RDW (11.5-15.5) % Macrocytosis Potassium 3.4 L (3.5-5.1) mmol/L BUN 34 H (9-20) mg/dL POC Glucose (mg/dL) 230 H 359 H (70-110) mg/dL Calcium 7.9 L (8.4-10.2) mg/dL 02/04/23 02/04/23 Range/Units 08:55 11:45 WBC 11.7 H (3.8-10.6) k/uL RBC 2.40 L (4.30-5.90) m/uL Hgb 8.0 L (13.0-17.5) gm/dL Hct 26.0 L (39.0-53.0) % MCV 108.7 H (80.0-100.0) fL MCHC 30.7 L (31.0-37.0) g/dL RDW 22.7 H (11.5-15.5) % Macrocytosis Marked A Potassium (3.5-5.1) mmol/L BUN (9-20) mg/dL POC Glucose (mg/dL) 294 H (70-110) mg/dL Calcium (8.4-10.2) mg/dL Microbiology - Last 24 Hours (Table) 01/29/23 09:54 Blood Culture - Final Blood Assessment and Plan Assessment: Acute on chronic hypoxemic respiratory failure secondary to systolic congestive heart failure. Atrial fibrillation with varying ventricular response. Coronary disease with previous stent placement. Acute on chronic kidney disease. Hypertension. History of ventricular tachycardia with AICD placement. Hyperlipidemia. Diabetes mellitus. Poor overall functional performance based on the above-mentioned multiple comorbidities. skilled nursing resident. Plan: Plan dated 02/01/2023. The patient currently remains on oxygen at 3 L. He is on BiPAP at nighttime, and intermittently during the day, with settings of 12/5, and 40%. The patient was admitted with a diagnosis of CHF. He's not receiving any IV fluids. Labs, x-rays, medications are reviewed. The patient's overall prognosis remains guarded. We will continue to follow the patient and make recommendations along the way. Plan dated 02/02/2023. Currently, the patient is on BiPAP. Saturations are 100%. Labs, x-rays, and medications are all reviewed. The patient is not receiving any IV fluids. We will continue to follow the patient, and make recommendations along the way. He was admitted with a diagnosis of CHF. His prognosis remains guarded. No additional recommendations are made at this time. Plan dated 02/03/2023. The patient is seen today in room 380. The patient's currently on nasal O2 at 3 L. Saturations are 97%. Clinically, the patient appears to be relatively stable, and feels better. He does use his BiPAP device from time to time. He was admitted with a diagnosis of fluid overload/CHF. Labs, x-rays, medications are reviewed. Prognosis is certainly guarded. We will continue to follow the patient on a regular basis, and make recommendations where appropriate. Plan dated 02/04/2023. The patient continues on oxygen at 3 L. He seems be awake and alert. He sitting up in bed. He has no specific complaints today. Labs, x-rays, and medications are reviewed. He does use the BiPAP from time to time. We will continue to follow the patient, and make recommendations along the way. Labs, x-rays, and all medications have been reviewed. The patient's overall prognosis remains guarded. Hopeful discharge in the next few days or so. Time with Patient: Less than 30
--- NOTE | 2023-02-04 16:37 | P.PN ---
Subjective Progress Note Date: 02/03/23 Principal diagnosis: Reason for follow up C. diff colitis Patient is a 72-year-old male with a past medical history significant for atrial fibrillation coronary artery disease heart failure diabetes mellitus hypertension hyperlipidemia patient recently did have multiple admission to the hospital initially he did have bacteremia subsequently admitted for C. difficile colitis, presenting back to hospital with worsening shortness of breath and swelling concerning for possible fluid overload. On today's evaluation that is 02/03/2023, the patient remains to be febrile, the patient is breathing comfortably on 3 L nasal cannula oxygen The patient denies having any shortness of breath no chest pain or cough, patient denies Abdominal pain, no nausea/vomiting did have improvement in his diarrhea Patient did have white count of 11.1, creatinine is 1.31, blood cultures so far negative urine culture negative Objective - Vital Signs Vital signs: Vital Signs Temp 97.5 F L 02/03/23 08:45 Pulse 93 02/03/23 11:55 Resp 18 02/03/23 11:55 BP 112/78 02/03/23 11:55 Pulse Ox 97 02/03/23 11:55 FiO2 40 02/03/23 04:00 Intake & Output 02/02/23 02/03/23 02/03/23 18:59 06:59 18:59 Intake Total 340 10 360 Output Total 651 700 Balance -311 -690 360 Weight 89.5 kg 89.5 kg Intake: IV 10 Invasive Line 1 10 Oral 340 360 Output: Urine 650 700 Stool 1 Other: Voiding Method Indwelling Catheter Indwelling Catheter Indwelling Catheter # Bowel Movements 1 1 - Exam GENERAL DESCRIPTION: An elderly male lying in bed in no distress RESPIRATORY SYSTEM: Unlabored breathing , decreased breath sound at the base HEART: S1 S2 regular rate and rhythm , ABDOMEN: Soft , no tenderness EXTREMITIES: Diffuse swelling to bilateral lower extremity - Labs CBC & Chem 7: 02/04/23 08:55 02/04/23 07:49 Labs: Abnormal Lab Results - Last 24 Hours (Table) 02/02/23 02/02/23 02/03/23 Range/Units 17:06 20:20 06:21 WBC (3.8-10.6) k/uL RBC (4.30-5.90) m/uL Hgb (13.0-17.5) gm/dL Hct (39.0-53.0) % MCV (80.0-100.0) fL RDW (11.5-15.5) % Macrocytosis BUN (9-20) mg/dL Creatinine (0.66-1.25) mg/dL Glucose (74-99) mg/dL POC Glucose (mg/dL) 168 H 222 H 173 H (70-110) mg/dL Calcium (8.4-10.2) mg/dL 02/03/23 02/03/23 02/03/23 Range/Units 10:04 10:04 11:46 WBC 11.1 H (3.8-10.6) k/uL RBC 2.20 L (4.30-5.90) m/uL Hgb 7.5 L (13.0-17.5) gm/dL Hct 23.9 L (39.0-53.0) % MCV 108.3 H (80.0-100.0) fL RDW 22.3 H (11.5-15.5) % Macrocytosis Marked A BUN 40 H (9-20) mg/dL Creatinine 1.31 H (0.66-1.25) mg/dL Glucose 178 H (74-99) mg/dL POC Glucose (mg/dL) 226 H (70-110) mg/dL Calcium 7.9 L (8.4-10.2) mg/dL Microbiology - Last 24 Hours (Table) 01/29/23 20:54 Urine Culture - Final Urine,Voided Assessment and Plan (1) C. difficile colitis Current Visit: No Status: Acute Code(s): A04.72 - ENTEROCOLITIS D/T CLOSTRIDIUM DIFFICILE, NOT SPCF RECUR SNOMED Code(s): 116571078 Plan: 1patient presented to hospital with increasing shortness that more likely rel ated to underlying fluid overload as the patient did have significant swelling and evidence of effusion on chest x-ray clinically not behaving as pneumonia patient did not have any fever 2patient is afebrile, the patient white count is trending down and did have overall improvement in his diarrhea and will continue with Deficid and monitor clinical course closely Dictation was produced using [employer] dictation software. please excuse any grammatical, word or spelling errors. Time with Patient: Less than 30
--- NOTE | 2023-02-04 16:38 | P.PN ---
Subjective Progress Note Date: 02/04/23 Principal diagnosis: Reason for follow up C. diff colitis Patient is a 72-year-old male with a past medical history significant for atrial fibrillation coronary artery disease heart failure diabetes mellitus hypertension hyperlipidemia patient recently did have multiple admission to the hospital initially he did have bacteremia subsequently admitted for C. difficile colitis, presenting back to hospital with worsening shortness of breath and swelling concerning for possible fluid overload. On today's evaluation that is 02/04/2023, the patient denies any fever or any chills, the patient is breathing comfortably on the daily to his current oxygen and denies any shortness of breath, the patient denies any chest pain, did have occasional cough but no sputum production, patient denies nausea/vomiting or abdominal pain and did have resolution of diarrhea no bowel movement today per the nursing staff Patient did have white count of 11.7, creatinine is 1.24, blood cultures so far negative urine culture negative Objective - Vital Signs Vital signs: Vital Signs Temp 98.1 F 02/04/23 08:00 Pulse 116 H 02/04/23 09:25 Resp 18 02/04/23 08:00 BP 154/93 02/04/23 08:00 Pulse Ox 94 L 02/04/23 09:08 FiO2 40 02/04/23 04:54 Intake & Output 02/03/23 02/04/23 02/04/23 18:59 06:59 18:59 Intake Total 600 Output Total 1500 Balance 600 -1500 Weight 89.5 kg 108 kg Intake: Oral 600 Output: Urine 1500 Other: Voiding Method Indwelling Catheter Indwelling Catheter - Exam GENERAL DESCRIPTION: An elderly male lying in bed in no distress RESPIRATORY SYSTEM: Unlabored breathing , decreased breath sound at the base HEART: S1 S2 regular rate and rhythm , ABDOMEN: Soft , no tenderness EXTREMITIES: Diffuse swelling to bilateral lower extremity - Labs CBC & Chem 7: 02/04/23 08:55 02/04/23 07:49 Labs: Abnormal Lab Results - Last 24 Hours (Table) 02/03/23 02/03/23 02/03/23 Range/Units 11:46 16:54 19:47 WBC (3.8-10.6) k/uL RBC (4.30-5.90) m/uL Hgb (13.0-17.5) gm/dL Hct (39.0-53.0) % MCV (80.0-100.0) fL MCHC (31.0-37.0) g/dL RDW (11.5-15.5) % Macrocytosis Potassium (3.5-5.1) mmol/L BUN (9-20) mg/dL POC Glucose (mg/dL) 226 H 230 H 359 H (70-110) mg/dL Calcium (8.4-10.2) mg/dL 02/04/23 02/04/23 Range/Units 07:49 08:55 WBC 11.7 H (3.8-10.6) k/uL RBC 2.40 L (4.30-5.90) m/uL Hgb 8.0 L (13.0-17.5) gm/dL Hct 26.0 L (39.0-53.0) % MCV 108.7 H (80.0-100.0) fL MCHC 30.7 L (31.0-37.0) g/dL RDW 22.7 H (11.5-15.5) % Macrocytosis Marked A Potassium 3.4 L (3.5-5.1) mmol/L BUN 34 H (9-20) mg/dL POC Glucose (mg/dL) (70-110) mg/dL Calcium 7.9 L (8.4-10.2) mg/dL Microbiology - Last 24 Hours (Table) 01/29/23 09:54 Blood Culture - Final Blood Assessment and Plan (1) C. difficile colitis Current Visit: No Status: Acute Code(s): A04.72 - ENTEROCOLITIS D/T CLOSTRIDIUM DIFFICILE, NOT SPCF RECUR SNOMED Code(s): 505831067 Plan: 1patient presented to hospital with increasing shortness that more likely related to underlying fluid overload as the patient did have significant swelling and evidence of effusion on chest x-ray clinically not behaving as pneumonia patient did not have any fever 2patient is afebrile, the patient white count is trending down and did have overall improvement in his diarrhea 3- plan is to continue with Deficid and continue supportive care Dictation was produced using [employer] dictation software. please excuse any grammatical, word or spelling errors. Time with Patient: Less than 30
--- NOTE | 2023-02-04 16:42 | P.PN ---
Subjective Progress Note Date: 02/04/23 Patient is a 72-year-old male with systolic CHF, A. fib on Eliquis, CAD status post stents, COPD, type 2 diabetes, and hypertension who presented from rehab with complaints of shortness of breath and chest discomfort. Patient has had 2 recent hospitalizations due to C. diff colitis with sepsis. His most recent discharge was on 01/27/23. On arrival to the ER this hospital stay he was in significant respiratory distress and was placed on rescue BiPAP. He was also noted to be tachycardic with a pulse of 117. In the ER he underwent extensive evaluation. Laboratory analysis included CBC, coags, VBG, CMP, troponin, and BNP which were remarkable for white blood cell count 18.7, hemoglobin 8.9, platelets 546, INR 1.3, pH 7.3, bicarbonate VBG 20, potassium 5.6, carbon dioxide 16, BUN 55, creatinine 1.78, and BNP 25,500. Influenza A/B/RSV/COVID-19 testing was negative. Chest x-ray demonstrated fluid in the right minor fissure and blunting of the costophrenic angle. In the ER he was given a dose of Lasix IV push, Decadron 10 mg once, DuoNeb was not administered due to Covid test, and he received Zithromax 500 mg IV piggyback 1. Arrangements are made for admission. Patient's respiratory status improved with intermittent BiPAP and Lasix IV. Pulmonology and Cardiology followed the patient during his hospitalization. He was continued on Fidoxomicin for treatment of C.diff sepsis. 02/01 Patient was seen and examined. Currently on 2L NC. CBC WBC 12.8 Hg 7.7 MCV 106.4. BMP Na 135, bicarb 18, BUN 53, Cr 1.65, glu 112, Ca 8.1. Currently on BiPAP FiO2 40% PRN. Currently on Lasix 20 mg IV BID. Negative 332 cc over the past 24H. 02/02 Patient was seen and examined. Appears pale. Currently on BiPAP FiO2 40%. CBC WBC 12.5, Hg 7.6, MCV 105.8. BMP bicarb 18, BUN 46, Cr 1.42, glu 112, Ca 8.2. Currently on Lasix 20 mg IV BID. Negative 756 cc over the past 24H. 02/03 Patient was seen and examined. He continues to look fluid overloaded. Cardiology has increased his Lasix to 40 mg IV BID. CBC WBC 11.1, Hg 7.5, MCV 108.3. BMP BUN 40, Cr 1.31, glu 178, Ca 7.9. Negative 580 cc over the past 24H. 02/04 Patient was seen and examined. Clinically the same. Cardiology has added Aldactone and discontinued Midodrine, continued IV lasix. CBC WBC 11.7, Hg 8, MCV 108.7. BMP K 3.4, BUN 34, Ca 7.9. Negative 1001 cc over the past 24H. General: non toxic, no distress, appears at stated age Derm: warm, dry Head: atraumatic, normocephalic, symmetric Eyes: EOMI, no lid lag, anicteric sclera Cardiovascular: S1S2 reg, no murmur Lungs: Decreased BS bilateral, no rhonchi, no rales , no accessory muscle use Ext: no gross muscle atrophy, 2+ edema, no contractures Neuro: no focal neuro deficits Psych: Alert, oriented, appropriate affect Based on my assessment of this patient, this patient meets a high complexity level of care. Patient has an acute diagnosis of acute hypoxic respiratory failure due to CHF exacerbation that poses a threat to life or bodily function. Acute hypoxic respiratory failure: BiPAP PRN. Lasix IV as above. DuoNeb PRN for SOB/wheezing. Pulmicort INH BID. Telemetry monitoring. Pulmonology and Cardiology on board. HFrEF exacerbation: Lasix as above. Strict intake and outtake. Daily weights. RAJAN on CKD: Due to forced diuresis. Metabolic acidosis: Sodium bicarbonate 650 mg PO BID. AFib with RVR: Eliquis 5 mg PO BID. Amiodarone 400 mg PO BID. Metoprolol 50 mg PO BID C. difficile: Fidaxomicin 200 mg PO BID D5/7. Unspecified psych disorder: Risperidal 0.5 mg PO QHS. Zoloft 50 mg PO QD. History of CAD: Lipitor 40 mg PO QD. ASA 81 mg PO QD. Diabetes mellitus: ISS. Levemir 10 units QD. CODE STATUS: FULL CODE DVT Prophylaxis: Eliquis. GI Prophylaxis: Designated medical POA if patient is not able to make medical decisions for themselves: Guardian I have reviewed the following entry level sales consultant notes: Pulm, ID, Cardio note. I have reviewed the results of the following tests: CBC, BMP. I have ordered the following tests: BMP. I have discussed the care of this patient with the following independent historian: I have independently interpreted the following test below: I have discussed the management of this patient with the following physician: Discussed with Dr. Hernandez. This patient has a high risk of morbidity due to the following reasons: IV lasix requires intensive monitoring of electrolytes and renal function. Objective - Vital Signs Vital signs: Vital Signs Temp 98.1 F 02/04/23 08:00 Pulse 117 H 02/04/23 08:00 Resp 18 02/04/23 08:00 BP 154/93 02/04/23 08:00 Pulse Ox 97 02/04/23 08:00 FiO2 40 02/04/23 04:54 Intake & Output 02/03/23 02/04/23 02/04/23 18:59 06:59 18:59 Intake Total 600 Output Total 1500 Balance 600 -1500 Weight 89.5 kg 108 kg Intake: Oral 600 Output: Urine 1500 Other: Voiding Method Indwelling Catheter Indwelling Catheter - Labs CBC & Chem 7: 02/04/23 08:55 02/04/23 07:49 Labs: Abnormal Lab Results - Last 24 Hours (Table) 02/03/23 02/03/23 02/03/23 Range/Units 10:04 10:04 11:46 WBC 11.1 H (3.8-10.6) k/uL RBC 2.20 L (4.30-5.90) m/uL Hgb 7.5 L (13.0-17.5) gm/dL Hct 23.9 L (39.0-53.0) % MCV 108.3 H (80.0-100.0) fL RDW 22.3 H (11.5-15.5) % Macrocytosis Marked A BUN 40 H (9-20) mg/dL Creatinine 1.31 H (0.66-1.25) mg/dL Glucose 178 H (74-99) mg/dL POC Glucose (mg/dL) 226 H (70-110) mg/dL Calcium 7.9 L (8.4-10.2) mg/dL 02/03/23 02/03/23 Range/Units 16:54 19:47 WBC (3.8-10.6) k/uL RBC (4.30-5.90) m/uL Hgb (13.0-17.5) gm/dL Hct (39.0-53.0) % MCV (80.0-100.0) fL RDW (11.5-15.5) % Macrocytosis BUN (9-20) mg/dL Creatinine (0.66-1.25) mg/dL Glucose (74-99) mg/dL POC Glucose (mg/dL) 230 H 359 H (70-110) mg/dL Calcium (8.4-10.2) mg/dL Microbiology - Last 24 Hours (Table) 01/29/23 09:54 Blood Culture - Final Blood
[2023-02-04 17:06] LABS: Glucose,Whole Blood 162 mg/dL (70-110)
[2023-02-04] MEDS: SERTRALINE 50 MG TAB PO SCH (19:49)
[2023-02-04] MEDS: risperiDONE 0.5 MG TAB PO SCH (19:49)
[2023-02-04] MEDS: ATORVASTATIN 40 MG TAB PO SCH (19:49)
[2023-02-04 20:04] LABS: Glucose,Whole Blood 215 mg/dL (70-110)
[2023-02-05 06:20] LABS: Glucose,Whole Blood 140 mg/dL (70-110)
[2023-02-05] MEDS: INSULIN ASPART (NovoLOG) 100 UNIT/ML VIAL SQ SCH ×4 (06:50→22:20)
[2023-02-05] MEDS: INSULIN DETEMIR (LEVEMIR) 100 UNIT/ML SYR SQ SCH (06:53)
[2023-02-05] MEDS: PANTOPRAZOLE 40 MG TABLET PO SCH (06:53)
[2023-02-05] MEDS: MIDODRINE 5 MG TAB PO SCH ×3 (06:53→16:13)
[2023-02-05] MEDS: BUDESONIDE 1 MG/2 ML NEBU INHALATION SCH ×2 (08:52→20:15)
[2023-02-05] MEDS: IPRATROPIUM-ALBUTEROL 3 ML NEB INHALATION SCH ×4 (08:52→20:15)
[2023-02-05] MEDS: FIDAXOMICIN 200 MG TABLET PO SCH ×2 (09:44→22:20)
[2023-02-05] MEDS: ASPIRIN 81 MG PO SCH (09:44)
[2023-02-05] MEDS: SODIUM BICARBONATE TAB 650 MG TAB PO SCH ×2 (09:44→16:13)
[2023-02-05] MEDS: allopurinoL 100 MG TAB PO SCH (09:44)
[2023-02-05] MEDS: FERROUS SULFATE 325 MG TAB PO SCH (09:44)
[2023-02-05] MEDS: SPIRONOLACTONE 25 MG TAB PO SCH (09:44)
[2023-02-05] MEDS: APIXABAN 5 MG TAB PO SCH ×2 (09:44→17:41)
[2023-02-05] MEDS: METOPROLOL TARTRATE 50 MG TAB PO SCH (09:44)
[2023-02-05] MEDS: OXYBUTYNIN XL 5 MG TAB.ER.24 PO SCH (09:44)
[2023-02-05] MEDS: FUROSEMIDE 10 MG/ML 4 ML VIAL IV SCH ×2 (09:44→22:20)
[2023-02-05] MEDS: AMIODARONE 200 MG TAB PO SCH (09:44)
[2023-02-05] MEDS: THIAMINE 100 MG TAB PO SCH (09:44)
[2023-02-05 10:32] LABS: Anisocytosis Moderate; HCT 26.1 % (39.0-53.0); HGB 7.7 gm/dL (13.0-17.5); Hypochromasia Marked; MCH 32.9 pg (25.0-35.0); MCHC 29.6 g/dL (31.0-37.0); MCV 110.9 fL (80.0-100.0); Macrocytosis Marked; Mean Platelet Volume 7.7; Platelet Count 258 k/uL (150-450); Poikilocytosis Moderate; RBC 2.35 m/uL (4.30-5.90); RDW 22.8 % (11.5-15.5); WBC 11.5 k/uL (3.8-10.6)
[2023-02-05 10:43] LABS: African American GFR (CKD) 60 (>60 ml/min/1.73 sqM); Anion Gap 13 mmol/L; Blood Urea Nitrogen 36 mg/dL (9-20); Calcium 8.1 mg/dL (8.4-10.2); Carbon Dioxide 24 mmol/L (22-30); Chloride 102 mmol/L (98-107); Glucose 173 mg/dL (74-99); Non-African American GFR(CKD) 52 (>60 ml/min/1.73 sqM); Potassium 3.9 mmol/L (3.5-5.1); Sodium 139 mmol/L (137-145)
[2023-02-05] MEDS ORDERED: METOPROLOL TARTRATE 25 MG TAB PO STA (11:04)
[2023-02-05] MEDS ORDERED: SPIRONOLACTONE 25 MG TAB PO STA (11:04)
[2023-02-05 11:32] LABS: Glucose,Whole Blood 255 mg/dL (70-110)
--- NOTE | 2023-02-05 12:15 | P.PN ---
Subjective Progress Note Date: 02/05/23 Patient is a 72-year-old male with systolic CHF, A. fib on Eliquis, CAD status post stents, COPD, type 2 diabetes, and hypertension who presented from rehab with complaints of shortness of breath and chest discomfort. Patient has had 2 recent hospitalizations due to C. diff colitis with sepsis. His most recent discharge was on 01/27/23. On arrival to the ER this hospital stay he was in significant respiratory distress and was placed on rescue BiPAP. He was also noted to be tachycardic with a pulse of 117. In the ER he underwent extensive evaluation. Laboratory analysis included CBC, coags, VBG, CMP, troponin, and BNP which were remarkable for white blood cell count 18.7, hemoglobin 8.9, platelets 546, INR 1.3, pH 7.3, bicarbonate VBG 20, potassium 5.6, carbon dioxide 16, BUN 55, creatinine 1.78, and BNP 25,500. Influenza A/B/RSV/COVID-19 testing was negative. Chest x-ray demonstrated fluid in the right minor fissure and blunting of the costophrenic angle. In the ER he was given a dose of Lasix IV push, Decadron 10 mg once, DuoNeb was not administered due to Covid test, and he received Zithromax 500 mg IV piggyback 1. Arrangements are made for admission. Patient's respiratory status improved with intermittent BiPAP and Lasix IV. Pulmonology and Cardiology followed the patient during his hospitalization. He was continued on Fidoxomicin for treatment of C.diff sepsis. 02/01 Patient was seen and examined. Currently on 2L NC. CBC WBC 12.8 Hg 7.7 MCV 106.4. BMP Na 135, bicarb 18, BUN 53, Cr 1.65, glu 112, Ca 8.1. Currently on BiPAP FiO2 40% PRN. Currently on Lasix 20 mg IV BID. Negative 332 cc over the past 24H. 02/02 Patient was seen and examined. Appears pale. Currently on BiPAP FiO2 40%. CBC WBC 12.5, Hg 7.6, MCV 105.8. BMP bicarb 18, BUN 46, Cr 1.42, glu 112, Ca 8.2. Currently on Lasix 20 mg IV BID. Negative 756 cc over the past 24H. 02/03 Patient was seen and examined. He continues to look fluid overloaded. Cardiology has increased his Lasix to 40 mg IV BID. CBC WBC 11.1, Hg 7.5, MCV 108.3. BMP BUN 40, Cr 1.31, glu 178, Ca 7.9. Negative 580 cc over the past 24H. 02/04 Patient was seen and examined. Clinically the same. Cardiology has added Aldactone and discontinued Midodrine, continued IV lasix. CBC WBC 11.7, Hg 8, MCV 108.7. BMP K 3.4, BUN 34, Ca 7.9. Negative 1001 cc over the past 24H. 02/05 Patient was seen and examined. Clinically the same. Cardiology increased his Metoprolol to 75 mg PO BID. Negative 900 cc over the past 24H. CBC WBC 11.5, Hg 7.7, MCV 110.9. BMP BUN 36, Cr 1.35 Ca 8.1. General: non toxic, no distress, appears at stated age Derm: warm, dry Head: atraumatic, normocephalic, symmetric Eyes: EOMI, no lid lag, anicteric sclera Cardiovascular: S1S2 reg, no murmur Lungs: Decreased BS bilateral, no rhonchi, no rales , no accessory muscle use Ext: no gross muscle atrophy, 1-2+ edema, no contractures Neuro: no focal neuro deficits Psych: Alert, oriented, appropriate affect Based on my assessment of this patient, this patient meets a high complexity level of care. Patient has an acute diagnosis of acute hypoxic respiratory failure due to CHF exacerbation that poses a threat to life or bodily function. Acute hypoxic respiratory failure: BiPAP PRN. Lasix IV as above. DuoNeb PRN for SOB/wheezing. Pulmicort INH BID. Telemetry monitoring. Pulmonology and Cardiology on board. HFrEF exacerbation: Lasix as above. Strict intake and outtake. Daily weights. RAJAN on CKD: Due to forced diuresis. Metabolic acidosis: Sodium bicarbonate 650 mg PO BID. AFib with RVR: Eliquis 5 mg PO BID. Amiodarone 400 mg PO BID. Metoprolol 50 mg PO BID C. difficile: Fidaxomicin 200 mg PO BID D5/7. Unspecified psych disorder: Risperidal 0.5 mg PO QHS. Zoloft 50 mg PO QD. History of CAD: Lipitor 40 mg PO QD. ASA 81 mg PO QD. Diabetes mellitus: ISS. Levemir 10 units QD. Insurance auth started for patient to return to [facility]. Likely DC in 1-2 days. CODE STATUS: FULL CODE DVT Prophylaxis: Eliquis. GI Prophylaxis: Designated medical POA if patient is not able to make medical decisions for themselves: Guardian I have reviewed the following search engine optimization consultant notes: Pulm, ID, Cardio note. I have reviewed the results of the following tests: CBC, BMP. I have ordered the following tests: BMP. I have discussed the care of this patient with the following independent historian: I have independently interpreted the following test below: I have discussed the management of this patient with the following physician: This patient has a high risk of morbidity due to the following reasons: IV lasix requires intensive monitoring of electrolytes and renal function. Objective - Vital Signs Vital signs: Vital Signs Temp 97.7 F 02/04/23 16:00 Pulse 101 H 02/05/23 09:06 Resp 20 02/05/23 09:06 BP 120/76 02/05/23 04:00 Pulse Ox 95 02/05/23 08:52 FiO2 35 02/05/23 08:52 Intake & Output 02/04/23 02/05/23 02/05/23 18:59 06:59 18:59 Intake Total 360 110 Output Total 601 Balance -241 110 Intake: Oral 360 110 Output: Urine 600 Stool 1 Other: Voiding Method Indwelling Catheter Indwelling Catheter - Labs CBC & Chem 7: 02/05/23 09:09 02/05/23 09:09 Labs: Abnormal Lab Results - Last 24 Hours (Table) 02/04/23 02/04/23 02/04/23 Range/Units 11:45 17:02 20:03 POC Glucose (mg/dL) 294 H 162 H 215 H (70-110) mg/dL 02/05/23 Range/Units 06:19 POC Glucose (mg/dL) 140 H (70-110) mg/dL
--- NOTE | 2023-02-05 14:24 | P.PN ---
Subjective HISTORY OF PRESENT ILLNESS: This is a 72-year-old gentleman who was brought from extended care facility to the hospital for further evaluation of shortness of breath. The patient does have a past medical history significant for coronary artery disease with a prior revascularization internal stenting as well as ischemic cardiomyopathy with known ejection fraction between 35-40% as well as hypertension and dyslipidemia and chronic anemia and chronic kidney disease and chronic atrial fibrillation. The patient was brought with change in mental status and also with shortness of breath with exertion which has progressed associated with edema in the upper and lower extremities. No pain in the chest and no dizziness or lightheadedness and no feeling of heart racing or fluttering and no presyncope or syncope. The luli whelan was not receiving any oral diuretics. He had multiple hospital admissions with heart failure. During his hospital stay he underwent an EKG which showed underlying atrial fibrillation with RVR previously and in the proBNP came in to be elevated at 25,000 and chest x-ray showed chronic changes only. The patient is in failure clearly. He is hypoxic. He does have upper and lower extremities significant pitting edema noted. His kidney function is abnormal but that has been stable does have chronic kidney disease and his hemoglobin is abnormal and has been stable and chronic as well. The examination is remarkable for severe upper and lower extremity is pitting edema. He does have also diminished breathing sounds bilaterally. Echo from September 2022 showed impaired LV function was EF between 35-40% 02/02/23 Patient continues to be in continuous BiPAP support. His blood pressure is low normal. He is currently rate controlled atrial fibrillation. 02/03/2023 Patient examined this morning at the bedside. Patient currently denies chest pain or pressure. Reports minimal shortness of breath. He remains on IV Lasix. Creatinine 1.31 today. Hemoglobin 7.5. Telemetry reveals atrial fibrillation with controlled ventricular rate. 02/04/2023 Patient examined this morning at the bedside. Patient denies chest pain or pressure. He continues to report shortness of breath. He continues to have lower summary edema although improved today. He remains in atrial fibrillation with controlled ventricular rate. Creatinine stable at 1.24. 02/05/2023 Patient examined this morning at the bedside. Patient is currently wearing BiPAP. Patient denies chest pain or pressure. He reports improvement in his shortness of breath. He remains on IV Lasix 40 mg every 12 hours. Telemetry reveals atrial fibrillation with a heart rate around 105. PHYSICAL EXAM: VITAL SIGNS: Reviewed. GENERAL: Well-developed in no acute distress. NECK: Supple. No JVD or thyromegaly LUNGS: Respirations even and unlabored. Lungs diminished at the bases. HEART: Irregular rate and rhythm. S1 and S2 heard. EXTREMITIES: Normal range of motion. No clubbing or cyanosis. Peripheral pulses intact. 1-2+ bilateral lower extremity edema ASSESSMENT: Acute on chronic heart failure with reduced ejection fraction Recent admission secondary to sepsis and recurrent C. diff Persistent atrial fibrillation with controlled ventricular rate Ischemic cardiomyopathy, EF 35-40% Coronary artery disease with previous stenting Ventricular tachycardia with previous AICD implantation Hypertension Hyperlipidemia Diabetes Chronic anemia PLAN: Continue current cardiac medications Continue Lasix IV 40 mg every 12 hours Daily weights, accurate I&O, and monitoring of kidney function Increase Aldactone to any 5 mg daily Increase metoprolol tartrate to 75mg twice a day for optimal heart rate control Further recommendations pending patient's course Nurse practitioner note has been reviewed by physician. Signing provider agrees with the documented findings, assessment, and plan of care. Objective - Vital Signs Vital signs: Vital Signs Temp 97.4 F L 02/05/23 12:28 Pulse 104 H 02/05/23 12:28 Resp 20 02/05/23 12:40 BP 122/80 02/05/23 12:28 Pulse Ox 98 02/05/23 12:28 FiO2 35 02/05/23 11:38 Intake & Output 02/04/23 02/05/23 02/05/23 18:59 06:59 18:59 Intake Total 360 110 Output Total 601 Balance -241 110 Intake: Oral 360 110 Output: Urine 600 Stool 1 Other: Voiding Method Indwelling Catheter Indwelling Catheter Indwelling Catheter # Bowel Movements 1 - Labs CBC & Chem 7: 02/05/23 09:09 02/05/23 09:09 Labs: Abnormal Lab Results - Last 24 Hours (Table) 02/04/23 02/04/23 02/05/23 Range/Units 17:02 20:03 06:19 WBC (3.8-10.6) k/uL RBC (4.30-5.90) m/uL Hgb (13.0-17.5) gm/dL Hct (39.0-53.0) % MCV (80.0-100.0) fL MCHC (31.0-37.0) g/dL RDW (11.5-15.5) % Macrocytosis BUN (9-20) mg/dL Creatinine (0.66-1.25) mg/dL Glucose (74-99) mg/dL POC Glucose (mg/dL) 162 H 215 H 140 H (70-110) mg/dL Calcium (8.4-10.2) mg/dL 02/05/23 02/05/23 02/05/23 Range/Units 09:09 09:09 11:31 WBC 11.5 H (3.8-10.6) k/uL RBC 2.35 L (4.30-5.90) m/uL Hgb 7.7 L (13.0-17.5) gm/dL Hct 26.1 L (39.0-53.0) % MCV 110.9 H (80.0-100.0) fL MCHC 29.6 L (31.0-37.0) g/dL RDW 22.8 H (11.5-15.5) % Macrocytosis Marked A BUN 36 H (9-20) mg/dL Creatinine 1.35 H (0.66-1.25) mg/dL Glucose 173 H (74-99) mg/dL POC Glucose (mg/dL) 255 H (70-110) mg/dL Calcium 8.1 L (8.4-10.2) mg/dL
--- NOTE | 2023-02-05 15:34 | P.PN ---
Subjective Progress Note Date: 02/05/23 Principal diagnosis: Respiratory failure. This is a 72-year-old male patient who is a poor historian who is residing in an extended care facility who was brought in by EMS yesterday for shortness of breath. He does have a history of chronic obstructive pulmonary disease, conges tive heart failure, chronic kidney disease, atrial fibrillation, diabetes mellitus, hypertension, hyperlipidemia, coronary disease with previous stent placement, anxiety/depression, former smoker. He was just discharged from here on 01/27/2023. Chest x-ray reveals a stable chest with basilar densities which were unchanged compared to 01/26/2023. Count 15.2. Hemoglobin 8.0. Platelets 427. Sodium 136. Potassium 4.7. Bicarb 16. BUN 56. Creatinine 1.63. Glucose 150. Urinalysis positive for many bacteria large leukocyte esterase and high WBCs. He is seen today in consultation on the selective care unit. He is currently resting comfortably in bed. Awake and alert. Underwent unable to give much history. He really required BiPAP support. He is currently on 4 L nasal cannula with O2 saturations up to 99%. Slightly tachycardic. He is initiated on DuoNeb inhalations, Pulmicort inhalations. IV diuretics. Anticoagulated with Eliquis. The patient was seen and evaluated today 01/31/2023 in follow-up on the selective care unit. He is currently resting fairly comfortably in bed. He is on BiPAP 12/5 on 40% FiO2. Follow up chest x-ray is stable with just a trace right pleural effusion. Blood cultures revealed no growth. Sodium 132. Potassium 4.8. Bicarb 15. BUN 55. Creatinine 1.3. Glucose 188. If he is continued on DuoNeb inhalations, Pulmicort inhalations. He is continued on Lasix 20 mg IV twice a day. Currently in a negative balance. Progress note dated 02/01/2023. 72-year-old male who was seen today in room 380. Currently, the patient's on 3 L of oxygen. His BiPAP settings included a IPAP of 12, EPAP of 5, and 40%. The patient is not receiving any IV fluids. His admitted to the hospital with a diagnosis of congestive heart failure, respiratory failure, and hypoxemia. White count is 12.8, hemoglobin 7.7, hematocrit 24.4, with a platelet count 334,000. Sodium 135, potassium 3.9, chlorides 106, CO2 18, anion gap 11, BUN 53, and creatinine 1.65. Glucose 112. Chest x-ray from January 31 shows a stable examination demonstrated trace right pleural effusion. Progress note dated 02/02/2023. 72-year-old male seen today in room 380. Yesterday, he was on 3 L of oxygen, but today, the patient is on BiPAP, with settings of 12/5, and 40%. He appears relatively comfortable. He is not receiving any IV fluids. He was admitted to the hospital with a diagnosis of CHF, respiratory failure, and hypoxemia. White count 12.5, hemoglobin 7.6, hematocrit 24, and platelet count 259,000. Sodium 137, potassium 4, chlorides 107, CO2 18, anion gap 12, BUN 46, creatinine 1.42. Glucose 112. Calcium is 8.2. No recent chest x-ray to report. Progress note dated 02/03/2023. 72-year-old male seen in room 380. The patient is currently on 3 L of oxygen. He does use BiPAP from time to time. Currently, he is on his nasal cannula. Saturations are 100% on 3 L. Clinically, the patient is stable. Labs today include a white count 11.1, hemoglobin 7.5, hematocrit 23.9, and a platelet count of 244,000. Sodium 137, potassium 3.5, chlorides 104, CO2 23, BUN 40, and creatinine 1.31. Glucose 178. Calcium is 7.9. Progress note dated 02/04/2023. This is a 72-year-old male seen in room 380. Currently, the patient's on 3 L by nasal cannula. At various times throughout the day, and at nighttime, the patient uses his BiPAP, with settings of 12/5, and 40%. The patient is not receiving any IV fluids at this time. Clinically, he looks awake and alert. His respiratory status has improved. Currently labs include a white count 11.7, hemoglobin 8, hematocrit 26, and platelet count 272,000. Sodium 138, potassium 3.4, chlorides 104, CO2 23, anion gap 11, BUN 34, and creatinine 1.24. Calcium is 7.9. Progress note dated 02/05/2023. 72-year-old male seen in room 380. Today, the patient's using BiPAP. His BiPAP settings of 12/5, and 35%. He is not receiving any IV fluids. When not on BiPAP, the patient's on nasal cannula, at 3 L. Clinically, the patient appears to be doing much better. He does feel much better. Currently, his white count 11.5, hemoglobin 7.7, hematocrit 26.1, with a normal platelet count of 258,000. Sodium 139, potassium 3.9, chlorides 102, CO2 24, anion gap 13, BUN 36, creatinine 1.35. Calcium is 8.1. The cause is 173. Objective - Vital Signs Vital signs: Vital Signs Temp 97.4 F L 02/05/23 12:28 Pulse 101 H 02/05/23 15: Resp 22 02/05/23 15: BP 122/80 02/05/23 12:28 Pulse Ox 98 02/05/23 12:28 FiO2 35 02/05/23 15:23 Intake & Output 02/04/23 02/05/23 02/05/23 18:59 06:59 18:59 Intake Total 360 110 Output Total 601 Balance -241 110 Intake: Oral 360 110 Output: Urine 600 Stool 1 Other: Voiding Method Indwelling Catheter Indwelling Catheter Indwelling Catheter # Bowel Movements 1 - Exam No acute distress, oriented 3. The patient is currently on BiPAP. HEENT examination is grossly unremarkable. Mucous membranes are moist. No oral lesions. Neck supple. Full range of motion. No adenopathy thyromegaly or neck vein distention. Cardiovascular examination reveals regular rhythm rate. S1-S2 normal. No S3 or S4. No discernible murmur noted. Heart sounds are distant. Heart rate 98 bpm. Lungs reveal bibasilar crackles. Scattered rhonchi are noted. There are no wheezes. Breath sounds are equal bilaterally. Saturations are 98%. Abdomen soft bowel sounds are heard. No masses or tenderness. Extremities are intact. No cyanosis clubbing or edema. Skin is without rash or lesion. Neurologic examination is brief but nonfocal. - Labs CBC & Chem 7: 02/05/23 09:09 02/05/23 09:09 Labs: Abnormal Lab Results - Last 24 Hours (Table) 02/04/23 02/04/23 02/05/23 Range/Units 17:02 20:03 06:19 WBC (3.8-10.6) k/uL RBC (4.30-5.90) m/uL Hgb (13.0-17.5) gm/dL Hct (39.0-53.0) % MCV (80.0-100.0) fL MCHC (31.0-37.0) g/dL RDW (11.5-15.5) % Macrocytosis BUN (9-20) mg/dL Creatinine (0.66-1.25) mg/dL Glucose (74-99) mg/dL POC Glucose (mg/dL) 162 H 215 H 140 H (70-110) mg/dL Calcium (8.4-10.2) mg/dL 02/05/23 02/05/23 02/05/23 Range/Units 09:09 09:09 11:31 WBC 11.5 H (3.8-10.6) k/uL RBC 2.35 L (4.30-5.90) m/uL Hgb 7.7 L (13.0-17.5) gm/dL Hct 26.1 L (39.0-53.0) % MCV 110.9 H (80.0-100.0) fL MCHC 29.6 L (31.0-37.0) g/dL RDW 22.8 H (11.5-15.5) % Macrocytosis Marked A BUN 36 H (9-20) mg/dL Creatinine 1.35 H (0.66-1.25) mg/dL Glucose 173 H (74-99) mg/dL POC Glucose (mg/dL) 255 H (70-110) mg/dL Calcium 8.1 L (8.4-10.2) mg/dL Assessment and Plan Assessment: Acute on chronic hypoxemic respiratory failure secondary to systolic congestive heart failure. Atrial fibrillation with varying ventricular response. Coronary disease with previous stent placement. Acute on chronic kidney disease. Hypertension. History of ventricular tachycardia with AICD placement. Hyperlipidemia. Diabetes mellitus. Poor overall functional performance based on the above-mentioned multiple comorbidities. group home resident. Plan: Plan dated 02/01/2023. The patient currently remains on oxygen at 3 L. He is on BiPAP at nighttime, and intermittently during the day, with settings of 12/5, and 40%. The patient was admitted with a diagnosis of CHF. He's not receiving any IV fluids. Labs, x-rays, medications are reviewed. The patient's overall prognosis remains guarded. We will continue to follow the patient and make recommendations along the way. Plan dated 02/02/2023. Currently, the patient is on BiPAP. Saturations are 100%. Labs, x-rays, and medications are all reviewed. The patient is not receiving any IV fluids. We will continue to follow the patient, and make recommendations along the way. He was admitted with a diagnosis of CHF. His prognosis remains guarded. No additional recommendations are made at this time. Plan dated 02/03/2023. The patient is seen today in room 380. The patient's currently on nasal O2 at 3 L. Saturations are 97%. Clinically, the patient appears to be relatively stable, and feels better. He does use his BiPAP device from time to time. He was admitted with a diagnosis of fluid overload/CHF. Labs, x-rays, medications are reviewed. Prognosis is certainly guarded. We will continue to follow the patient on a regular basis, and make recommendations where appropriate. Plan dated 02/04/2023. The patient continues on oxygen at 3 L. He seems be awake and alert. He si tting up in bed. He has no specific complaints today. Labs, x-rays, and medications are reviewed. He does use the BiPAP from time to time. We will continue to follow the patient, and make recommendations along the way. Labs, x-rays, and all medications have been reviewed. The patient's overall prognosis remains guarded. Hopeful discharge in the next few days or so. Plan dated 02/05/2023. The patient appears to be improving day by day. He is currently on BiPAP. When not on BiPAP, the patient uses nasal O2 at 3 L. Labs, x-rays, medications are reviewed. The patient's overall prognosis remains guarded. We will continue to follow the patient, make recommendations along the way. Prognosis is guarded. Time with Patient: Less than 30
[2023-02-05 16:10] LABS: Glucose,Whole Blood 141 mg/dL (70-110)
--- NOTE | 2023-02-05 16:53 | P.PN ---
Subjective Progress Note Date: 02/05/23 Principal diagnosis: Reason for follow up C. diff colitis Patient is a 72-year-old male with a past medical history significant for atrial fibrillation coronary artery disease heart failure diabetes mellitus hypertension hyperlipidemia patient recently did have multiple admission to the hospital initially he did have bacteremia subsequently admitted for C. difficile colitis, presenting back to hospital with worsening shortness of breath and swelling concerning for possible fluid overload. On today's evaluation that is 02/05/2023 the patient remains to be afebrile, the patient is breathing comfortably however currently on the BiPAP The patient denies shortness of breath denies any chest pain or cough, patient denies nausea/vomiting or abdominal pain and no diarrhea reported by the nursing staff Patient did have white count of 11.5, creatinine is 1.35, blood cultures so far negative urine culture negative Objective - Vital Signs Vital signs: Vital Signs Temp 97.7 F 02/04/23 16:00 Pulse 115 H 02/05/23 09:42 Resp 20 02/05/23 09:43 BP 134/88 02/05/23 09:42 Pulse Ox 99 02/05/23 09:42 FiO2 35 02/05/23 08:52 Intake & Output 02/04/23 02/05/23 02/05/23 18:59 06:59 18:59 Intake Total 360 110 Output Total 601 Balance -241 110 Intake: Oral 360 110 Output: Urine 600 Stool 1 Other: Voiding Method Indwelling Catheter Indwelling Catheter Indwelling Catheter # Bowel Movements 1 - Exam GENERAL DESCRIPTION: An elderly male lying in bed in no distress RESPIRATORY SYSTEM: Unlabored breathing , decreased breath sound at the base HEART: S1 S2 regular rate and rhythm , ABDOMEN: Soft , no tenderness EXTREMITIES: Diffuse swelling to bilateral lower extremity - Labs CBC & Chem 7: 02/05/23 09:09 02/05/23 09:09 Labs: Abnormal Lab Results - Last 24 Hours (Table) 02/04/23 02/04/23 02/04/23 Range/Units 11:45 17:02 20:03 WBC (3.8-10.6) k/uL RBC (4.30-5.90) m/uL Hgb (13.0-17.5) gm/dL Hct (39.0-53.0) % MCV (80.0-100.0) fL MCHC (31.0-37.0) g/dL RDW (11.5-15.5) % Macrocytosis BUN (9-20) mg/dL Creatinine (0.66-1.25) mg/dL Glucose (74-99) mg/dL POC Glucose (mg/dL) 294 H 162 H 215 H (70-110) mg/dL Calcium (8.4-10.2) mg/dL 02/05/23 02/05/23 02/05/23 Range/Units 06:19 09:09 09:09 WBC 11.5 H (3.8-10.6) k/uL RBC 2.35 L (4.30-5.90) m/uL Hgb 7.7 L (13.0-17.5) gm/dL Hct 26.1 L (39.0-53.0) % MCV 110.9 H (80.0-100.0) fL MCHC 29.6 L (31.0-37.0) g/dL RDW 22.8 H (11.5-15.5) % Macrocytosis Marked A BUN 36 H (9-20) mg/dL Creatinine 1.35 H (0.66-1.25) mg/dL Glucose 173 H (74-99) mg/dL POC Glucose (mg/dL) 140 H (70-110) mg/dL Calcium 8.1 L (8.4-10.2) mg/dL Assessment and Plan (1) C. difficile colitis Current Visit: No Status: Acute Code(s): A04.72 - ENTEROCOLITIS D/T CLOSTRIDIUM DIFFICILE, NOT SPCF RECUR SNOMED Code(s): 788067769 Plan: 1patient presented to hospital with increasing shortness that more likely related to underlying fluid overload as the patient did have significant swelling and evidence of effusion on chest x-ray clinically not behaving as pneumonia patient did not have any fever 2patient remains to be afebrile, the patient white count is trending down and the patient did have overall improvement in his diarrhea, we'll continue deficid Dictation was produced using [employer] dictation software. please excuse any grammatical, word or spelling errors. Time with Patient: Less than 30
[2023-02-05 20:11] LABS: Glucose,Whole Blood 183 mg/dL (70-110)
[2023-02-05] MEDS: ATORVASTATIN 40 MG TAB PO SCH (22:19)
[2023-02-05] MEDS: METOPROLOL TARTRATE 25 MG TAB PO SCH (22:19)
[2023-02-05] MEDS: SERTRALINE 50 MG TAB PO SCH (22:19)
[2023-02-05] MEDS: risperiDONE 0.5 MG TAB PO SCH (22:20)
[2023-02-06 06:16] LABS: Glucose,Whole Blood 137 mg/dL (70-110)
[2023-02-06] MEDS: INSULIN ASPART (NovoLOG) 100 UNIT/ML VIAL SQ SCH ×4 (06:18→21:17)
[2023-02-06] MEDS: PANTOPRAZOLE 40 MG TABLET PO SCH (06:25)
[2023-02-06] MEDS: INSULIN DETEMIR (LEVEMIR) 100 UNIT/ML SYR SQ SCH (06:25)
[2023-02-06] MEDS: MIDODRINE 5 MG TAB PO SCH ×3 (06:27→17:00)
[2023-02-06] MEDS: IPRATROPIUM-ALBUTEROL 3 ML NEB INHALATION SCH ×4 (08:19→20:31)
[2023-02-06] MEDS: BUDESONIDE 1 MG/2 ML NEBU INHALATION SCH ×2 (08:19→20:32)
[2023-02-06] MEDS: THIAMINE 100 MG TAB PO SCH (08:54)
[2023-02-06] MEDS: METOPROLOL TARTRATE 25 MG TAB PO SCH (08:54)
[2023-02-06] MEDS: FUROSEMIDE 10 MG/ML 4 ML VIAL IV SCH ×2 (08:54→21:31)
[2023-02-06] MEDS: SODIUM BICARBONATE TAB 650 MG TAB PO SCH ×2 (08:55→17:00)
[2023-02-06] MEDS: allopurinoL 100 MG TAB PO SCH (08:55)
[2023-02-06] MEDS: AMIODARONE 200 MG TAB PO SCH (08:55)
[2023-02-06] MEDS: APIXABAN 5 MG TAB PO SCH ×2 (08:55→17:00)
[2023-02-06] MEDS: OXYBUTYNIN XL 5 MG TAB.ER.24 PO SCH (08:55)
[2023-02-06] MEDS: FIDAXOMICIN 200 MG TABLET PO SCH ×2 (08:55→21:31)
[2023-02-06] MEDS: ASPIRIN 81 MG PO SCH (08:55)
[2023-02-06] MEDS: FERROUS SULFATE 325 MG TAB PO SCH (08:55)
[2023-02-06] MEDS: SPIRONOLACTONE 25 MG TAB PO SCH (08:55)
[2023-02-06 11:24] LABS: Glucose,Whole Blood 212 mg/dL (70-110)
--- NOTE | 2023-02-06 11:58 | P.PN ---
Subjective Progress Note Date: 02/06/23 Principal diagnosis: Respiratory failure. This is a 72-year-old male patient who is a poor historian who is residing in an extended care facility who was brought in by EMS yesterday for shortness of breath. He does have a history of chronic obstructive pulmonary disease, conges tive heart failure, chronic kidney disease, atrial fibrillation, diabetes mellitus, hypertension, hyperlipidemia, coronary disease with previous stent placement, anxiety/depression, former smoker. He was just discharged from here on 01/27/2023. Chest x-ray reveals a stable chest with basilar densities which were unchanged compared to 01/26/2023. Count 15.2. Hemoglobin 8.0. Platelets 427. Sodium 136. Potassium 4.7. Bicarb 16. BUN 56. Creatinine 1.63. Glucose 150. Urinalysis positive for many bacteria large leukocyte esterase and high WBCs. He is seen today in consultation on the selective care unit. He is currently resting comfortably in bed. Awake and alert. Underwent unable to give much history. He really required BiPAP support. He is currently on 4 L nasal cannula with O2 saturations up to 99%. Slightly tachycardic. He is initiated on DuoNeb inhalations, Pulmicort inhalations. IV diuretics. Anticoagulated with Eliquis. The patient was seen and evaluated today 01/31/2023 in follow-up on the selective care unit. He is currently resting fairly comfortably in bed. He is on BiPAP 12/5 on 40% FiO2. Follow up chest x-ray is stable with just a trace right pleural effusion. Blood cultures revealed no growth. Sodium 132. Potassium 4.8. Bicarb 15. BUN 55. Creatinine 1.3. Glucose 188. If he is continued on DuoNeb inhalations, Pulmicort inhalations. He is continued on Lasix 20 mg IV twice a day. Currently in a negative balance. Progress note dated 02/01/2023. 72-year-old male who was seen today in room 380. Currently, the patient's on 3 L of oxygen. His BiPAP settings included a IPAP of 12, EPAP of 5, and 40%. The patient is not receiving any IV fluids. His admitted to the hospital with a diagnosis of congestive heart failure, respiratory failure, and hypoxemia. White count is 12.8, hemoglobin 7.7, hematocrit 24.4, with a platelet count 334,000. Sodium 135, potassium 3.9, chlorides 106, CO2 18, anion gap 11, BUN 53, and creatinine 1.65. Glucose 112. Chest x-ray from January 31 shows a stable examination demonstrated trace right pleural effusion. Progress note dated 02/02/2023. 72-year-old male seen today in room 380. Yesterday, he was on 3 L of oxygen, but today, the patient is on BiPAP, with settings of 12/5, and 40%. He appears relatively comfortable. He is not receiving any IV fluids. He was admitted to the hospital with a diagnosis of CHF, respiratory failure, and hypoxemia. White count 12.5, hemoglobin 7.6, hematocrit 24, and platelet count 259,000. Sodium 137, potassium 4, chlorides 107, CO2 18, anion gap 12, BUN 46, creatinine 1.42. Glucose 112. Calcium is 8.2. No recent chest x-ray to report. Progress note dated 02/03/2023. 72-year-old male seen in room 380. The patient is currently on 3 L of oxygen. He does use BiPAP from time to time. Currently, he is on his nasal cannula. Saturations are 100% on 3 L. Clinically, the patient is stable. Labs today include a white count 11.1, hemoglobin 7.5, hematocrit 23.9, and a platelet count of 244,000. Sodium 137, potassium 3.5, chlorides 104, CO2 23, BUN 40, and creatinine 1.31. Glucose 178. Calcium is 7.9. Progress note dated 02/04/2023. This is a 72-year-old male seen in room 380. Currently, the patient's on 3 L by nasal cannula. At various times throughout the day, and at nighttime, the patient uses his BiPAP, with settings of 12/5, and 40%. The patient is not receiving any IV fluids at this time. Clinically, he looks awake and alert. His respiratory status has improved. Currently labs include a white count 11.7, hemoglobin 8, hematocrit 26, and platelet count 272,000. Sodium 138, potassium 3.4, chlorides 104, CO2 23, anion gap 11, BUN 34, and creatinine 1.24. Calcium is 7.9. Progress note dated 02/05/2023. 72-year-old male seen in room 380. Today, the patient's using BiPAP. His BiPAP settings of 12/5, and 35%. He is not receiving any IV fluids. When not on BiPAP, the patient's on nasal cannula, at 3 L. Clinically, the patient appears to be doing much better. He does feel much better. Currently, his white count 11.5, hemoglobin 7.7, hematocrit 26.1, with a normal platelet count of 258,000. Sodium 139, potassium 3.9, chlorides 102, CO2 24, anion gap 13, BUN 36, creatinine 1.35. Calcium is 8.1. The cause is 173. Progress note dated 02/06/2023. 72-year-old male seen today in room 380. He is currently on 3 L of oxygen. He has BiPAP at the bedside, that he uses intermittently, with settings of 12/5 and 35%. The patient is not on any IV fluids. Labs today include a glucose of 212. Objective - Vital Signs Vital signs: Vital Signs Temp 97.9 F 02/06/23 08:53 Pulse 92 02/06/23 11:51 Resp 20 02/06/23 08:53 BP 135/85 02/06/23 08:53 Pulse Ox 98 02/06/23 08:53 FiO2 35 02/05/23 20:55 Intake & Output 02/05/23 02/06/23 02/06/23 18:59 06:59 18:59 Intake Total 590 0 Output Total 350 675 Balance 240 -675 Weight 91.5 kg Intake: Oral 590 0 Output: Urine 350 675 Other: Voiding Method Indwelling Catheter Indwelling Catheter Indwelling Catheter # Bowel Movements 1 1 - Exam No acute distress, oriented 3. The patient is currently on 3 L nasal cannula. HEENT examination is grossly unremarkable. Mucous membranes are moist. No oral lesions. Neck supple. Full range of motion. No adenopathy thyromegaly or neck vein distention. Cardiovascular examination reveals regular rhythm rate. S1-S2 normal. No S3 or S4. No discernible murmur noted. Heart sounds are distant. Heart rate 92 bpm. Lungs reveal bibasilar crackles. Scattered rhonchi are noted. There are no wheezes. Breath sounds are equal bilaterally. Saturations are 98%. Abdomen soft bowel sounds are heard. No masses or tenderness. Extremities are intact. No cyanosis clubbing or edema. Skin is without rash or lesion. Neurologic examination is brief but nonfocal. - Labs CBC & Chem 7: 02/05/23 09:09 02/05/23 09:09 Labs: Abnormal Lab Results - Last 24 Hours (Table) 02/05/23 02/05/23 02/06/23 Range/Units 16:06 20:09 06:13 POC Glucose (mg/dL) 141 H 183 H 137 H (70-110) mg/dL 02/06/23 Range/Units 11:22 POC Glucose (mg/dL) 212 H (70-110) mg/dL Assessment and Plan Assessment: Acute on chronic hypoxemic respiratory failure secondary to systolic congestive heart failure. Atrial fibrillation with varying ventricular response. Coronary disease with previous stent placement. Acute on chronic kidney disease. Hypertension. History of ventricular tachycardia with AICD placement. Hyperlipidemia. Diabetes mellitus. Poor overall functional performance based on the above-mentioned multiple comorbidities. [facility] resident. Plan: Plan dated 02/01/2023. The patient currently remains on oxygen at 3 L. He is on BiPAP at nighttime, and intermittently during the day, with settings of 12/5, and 40%. The patient was admitted with a diagnosis of CHF. He's not receiving any IV fluids. Labs, x-rays, medications are reviewed. The patient's overall prognosis remains guarded. We will continue to follow the patient and make recommendations along the way. Plan dated 02/02/2023. Currently, the patient is on BiPAP. Saturations are 100%. Labs, x-rays, and medications are all reviewed. The patient is not receiving any IV fluids. We will continue to follow the patient, and make recommendations along the way. He was admitted with a diagnosis of CHF. His prognosis remains guarded. No additional recommendations are made at this time. Plan dated 02/03/2023. The patient is seen today in room 380. The patient's currently on nasal O2 at 3 L. Saturations are 97%. Clinically, the patient appears to be relatively stable, and feels better. He does use his BiPAP device from time to time. He was admitted with a diagnosis of fluid overload/CHF. Labs, x-rays, medications are reviewed. Prognosis is certainly guarded. We will continue to follow the patient on a regular basis, and make recommendations where appropriate. Plan dated 02/04/2023. The patient continues on oxygen at 3 L. He seems be awake and alert. He sitting up in bed. He has no specific complaints today. Labs, x-rays, and medications are reviewed. He does use the BiPAP from time to time. We will continue to follow the patient, and make recommendations along the way. Labs, x-rays, and all medications have been reviewed. The patient's overall prognosis remains guarded. Hopeful discharge in the next few days or so. Plan dated 02/05/2023. The patient appears to be improving day by day. He is currently on BiPAP. When not on BiPAP, the patient uses nasal O2 at 3 L. Labs, x-rays, medications are reviewed. The patient's overall prognosis remains guarded. We will continue to follow the patient, make recommendations along the way. Prognosis is guarded. Plan dated 02/06/2023. The patient appears stable on 3 L nasal cannula. He uses BiPAP intermittently. Labs, x-rays, and medications are reviewed. Clinically, the patient's doing well, and is being evaluated for possible discharge. We will continue to follow , and make recommendations along the way. Overall prognosis remains guarded. Time with Patient: Less than 30
[2023-02-06 12:24] LABS: African American GFR (CKD) 74 (>60 ml/min/1.73 sqM); Anion Gap 12 mmol/L; Blood Urea Nitrogen 36 mg/dL (9-20); Calcium 7.7 mg/dL (8.4-10.2); Carbon Dioxide 22 mmol/L (22-30); Chloride 101 mmol/L (98-107); Glucose 194 mg/dL (74-99); Non-African American GFR(CKD) 64 (>60 ml/min/1.73 sqM); Sodium 135 mmol/L (137-145)
[2023-02-06 12:27] LABS: Potassium 3.7 mmol/L (3.5-5.1)
--- NOTE | 2023-02-06 14:11 | P.PN ---
Subjective Progress Note Date: 02/06/23 Patient is a 72-year-old male with systolic CHF, A. fib on Eliquis, CAD status post stents, COPD, type 2 diabetes, and hypertension who presented from rehab with complaints of shortness of breath and chest discomfort. Patient has had 2 recent hospitalizations due to C. diff colitis with sepsis. His most recent discharge was on 01/27/23. On arrival to the ER this hospital stay he was in significant respiratory distress and was placed on rescue BiPAP. He was also noted to be tachycardic with a pulse of 117. In the ER he underwent extensive evaluation. Laboratory analysis included CBC, coags, VBG, CMP, troponin, and BNP which were remarkable for white blood cell count 18.7, hemoglobin 8.9, platelets 546, INR 1.3, pH 7.3, bicarbonate VBG 20, potassium 5.6, carbon dioxide 16, BUN 55, creatinine 1.78, and BNP 25,500. Influenza A/B/RSV/COVID-19 testing was negative. Chest x-ray demonstrated fluid in the right minor fissure and blunting of the costophrenic angle. In the ER he was given a dose of Lasix IV push, Decadron 10 mg once, DuoNeb was not administered due to Covid test, and he received Zithromax 500 mg IV piggyback 1. Arrangements are made for admission. Patient's respiratory status improved with intermittent BiPAP and Lasix IV. Pulmonology and Cardiology followed the patient during his hospitalization. He was continued on Fidoxomicin for treatment of C.diff sepsis. 02/01 Patient was seen and examined. Currently on 2L NC. CBC WBC 12.8 Hg 7.7 MCV 106.4. BMP Na 135, bicarb 18, BUN 53, Cr 1.65, glu 112, Ca 8.1. Currently on BiPAP FiO2 40% PRN. Currently on Lasix 20 mg IV BID. Negative 332 cc over the past 24H. 02/02 Patient was seen and examined. Appears pale. Currently on BiPAP FiO2 40%. CBC WBC 12.5, Hg 7.6, MCV 105.8. BMP bicarb 18, BUN 46, Cr 1.42, glu 112, Ca 8.2. Currently on Lasix 20 mg IV BID. Negative 756 cc over the past 24H. 02/03 Patient was seen and examined. He continues to look fluid overloaded. Cardiology has increased his Lasix to 40 mg IV BID. CBC WBC 11.1, Hg 7.5, MCV 108.3. BMP BUN 40, Cr 1.31, glu 178, Ca 7.9. Negative 580 cc over the past 24H. 02/04 Patient was seen and examined. Clinically the same. Cardiology has added Aldactone and discontinued Midodrine, continued IV lasix. CBC WBC 11.7, Hg 8, MCV 108.7. BMP K 3.4, BUN 34, Ca 7.9. Negative 1001 cc over the past 24H. 02/05 Patient was seen and examined. Clinically the same. Cardiology increased his Metoprolol to 75 mg PO BID. Negative 900 cc over the past 24H. CBC WBC 11.5, Hg 7.7, MCV 110.9. BMP BUN 36, Cr 1.35 Ca 8.1. 02/06 Patient was seen and examined. Breathing improved but continues to have significant LE edema. Maintained on Lasix 40 mg IV BID. Negative 241 cc over the past 24H. He needs insurance auth to go back to [facility]. BMP Na 135, BUN 36, glu 194. General: non toxic, no distress, appears at stated age Derm: warm, dry Head: atraumatic, normocephalic, symmetric Eyes: EOMI, no lid lag, anicteric sclera Cardiovascular: S1S2 reg, no murmur Lungs: Decreased BS bilateral, no rhonchi, no rales , no accessory muscle use Ext: no gross muscle atrophy, 1-2+ edema, no contractures Neuro: no focal neuro deficits Psych: Alert, oriented, appropriate affect Based on my assessment of this patient, this patient meets a high complexity level of care. Patient has an acute diagnosis of acute hypoxic respiratory failure due to CHF exacerbation that poses a threat to life or bodily function. Acute hypoxic respiratory failure: BiPAP PRN. Lasix IV as above. DuoNeb PRN for SOB/wheezing. Pulmicort INH BID. Telemetry monitoring. Pulmonology and Cardiology on board. HFrEF exacerbation: Lasix as above. Strict intake and outtake. Daily weights. RAJAN on CKD: Due to forced diuresis. Metabolic acidosis: Sodium bicarbonate 650 mg PO BID. AFib with RVR: Eliquis 5 mg PO BID. Amiodarone 400 mg PO BID. Metoprolol 50 mg PO BID C. difficile: Fidaxomicin 200 mg PO BID D5/7. Unspecified psych disorder: Risperidal 0.5 mg PO QHS. Zoloft 50 mg PO QD. History of CAD: Lipitor 40 mg PO QD. ASA 81 mg PO QD. Diabetes mellitus: ISS. Levemir 10 units QD. Insurance auth started for patient to return to [facility]. Likely DC in 1-2 days. CODE STATUS: FULL CODE DVT Prophylaxis: Eliquis. GI Prophylaxis: Designated medical POA if patient is not able to make medical decisions for emselves: Guardian I have reviewed the following marketing consultant notes: Pulm, ID, Cardio note. I have reviewed the results of the following tests: BMP. I have ordered the following tests: BMP. I have discussed the care of this patient with the following independent historian: I have independently interpreted the following test below: I have discussed the management of this patient with the following physician: This patient has a high risk of morbidity due to the following reasons: IV lasix requires intensive monitoring of electrolytes and renal function. Objective - Vital Signs Vital signs: Vital Signs Temp 97.9 F 02/06/23 08:53 Pulse 99 02/06/23 08:53 Resp 20 02/06/23 08:53 BP 135/85 02/06/23 08:53 Pulse Ox 98 02/06/23 08:53 FiO2 35 02/05/23 20:55 Intake & Output 02/05/23 02/06/23 02/06/23 18:59 06:59 18:59 Intake Total 590 Output Total 350 Balance 240 Weight 91.5 kg Intake: Oral 590 Output: Urine 350 Other: Voiding Method Indwelling Catheter Indwelling Catheter Indwelling Catheter # Bowel Movements 1 - Labs CBC & Chem 7: 02/05/23 09:09 02/06/23 11:43 Labs: Abnormal Lab Results - Last 24 Hours (Table) 02/05/23 02/05/23 02/05/23 Range/Units 09:09 09:09 11:31 WBC 11.5 H (3.8-10.6) k/uL RBC 2.35 L (4.30-5.90) m/uL Hgb 7.7 L (13.0-17.5) gm/dL Hct 26.1 L (39.0-53.0) % MCV 110.9 H (80.0-100.0) fL MCHC 29.6 L (31.0-37.0) g/dL RDW 22.8 H (11.5-15.5) % Macrocytosis Marked A BUN 36 H (9-20) mg/dL Creatinine 1.35 H (0.66-1.25) mg/dL Glucose 173 H (74-99) mg/dL POC Glucose (mg/dL) 255 H (70-110) mg/dL Calcium 8.1 L (8.4-10.2) mg/dL 02/05/23 02/05/23 02/06/23 Range/Units 16:06 20:09 06:13 WBC (3.8-10.6) k/uL RBC (4.30-5.90) m/uL Hgb (13.0-17.5) gm/dL Hct (39.0-53.0) % MCV (80.0-100.0) fL MCHC (31.0-37.0) g/dL RDW (11.5-15.5) % Macrocytosis BUN (9-20) mg/dL Creatinine (0.66-1.25) mg/dL Glucose (74-99) mg/dL POC Glucose (mg/dL) 141 H 183 H 137 H (70-110) mg/dL Calcium (8.4-10.2) mg/dL
[2023-02-06 16:44] LABS: Glucose,Whole Blood 127 mg/dL (70-110)
--- NOTE | 2023-02-06 18:51 | P.PN ---
Subjective Progress Note Date: 02/06/23 Progress note: Patient's blood pressure is tolerating Dilantin directed medical therapy for congestive heart failure. Patient is tolerating diuretic therapy. BP 122/82, pulse 92, creatinine is stable PHYSICAL EXAM: VITAL SIGNS: Reviewed. GENERAL: Well-developed in no acute distress. NECK: Supple. No JVD or thyromegaly LUNGS: Respirations even and unlabored. Lungs diminished at the bases. HEART: Irregular rate and rhythm. S1 and S2 heard. EXTREMITIES: Normal range of motion. No clubbing or cyanosis. Peripheral pulses intact. 1-2+ bilateral lower extremity edema ASSESSMENT: Acute on chronic heart failure with reduced ejection fraction Recent admission secondary to sepsis and recurrent C. diff Persistent atrial fibrillation with controlled ventricular rate Ischemic cardiomyopathy, EF 35-40% Coronary artery disease with previous stenting Ventricular tachycardia with previous AICD implantation Hypertension Hyperlipidemia Diabetes Chronic anemia PLAN: Reduce amiodarone to 200 mg daily from tomorrow as he has completed loading on 02/07/23 (7 days of 400 mg daily from 03/01/23) Continue Eliquis 5 mg, aspirin 81 mg Continue atorvastatin Continue Lasix 40 mg IV twice a day Aldactone 25 mg increase metoprolol 100 mg twice a day Reduce midodrine to 2.5 mg before meals 3 times a day Daily weights, accurate I&O, and monitoring of kidney function Objective - Vital Signs Vital signs: Vital Signs Temp 97.5 F L 02/06/23 12:09 Pulse 98 02/06/23 16:59 Resp 20 02/06/23 16:59 BP 136/82 02/06/23 16:59 Pulse Ox 98 02/06/23 16:59 FiO2 35 02/06/23 16:05 Intake & Output 02/05/23 02/06/23 02/06/23 18:59 06:59 18:59 Intake Total 590 120 Output Total 350 1100 Balance 240 -980 Weight 91.5 kg Intake: Oral 590 120 Output: Urine 350 1100 Other: Voiding Method Indwelling Catheter Indwelling Catheter Indwelling Catheter # Bowel Movements 1 1 - Labs CBC & Chem 7: 02/05/23 09:09 02/06/23 11:43 Labs: Abnormal Lab Results - Last 24 Hours (Table) 02/05/23 02/06/23 02/06/23 Range/Units 20:09 06:13 11:22 Sodium (137-145) mmol/L BUN (9-20) mg/dL Glucose (74-99) mg/dL POC Glucose (mg/dL) 183 H 137 H 212 H (70-110) mg/dL Calcium (8.4-10.2) mg/dL 02/06/23 02/06/23 Range/Units 11:43 16:41 Sodium 135 L (137-145) mmol/L BUN 36 H (9-20) mg/dL Glucose 194 H (74-99) mg/dL POC Glucose (mg/dL) 127 H (70-110) mg/dL Calcium 7.7 L (8.4-10.2) mg/dL
[2023-02-06 19:51] LABS: Glucose,Whole Blood 123 mg/dL (70-110)
[2023-02-06] MEDS: ATORVASTATIN 40 MG TAB PO SCH (21:31)
[2023-02-06] MEDS: risperiDONE 0.5 MG TAB PO SCH (21:31)
[2023-02-06] MEDS: METOPROLOL TARTRATE 50 MG TAB PO SCH (21:31)
[2023-02-06] MEDS: SERTRALINE 50 MG TAB PO SCH (21:31)
[2023-02-07 06:08] LABS: Glucose,Whole Blood 86 mg/dL (70-110)
[2023-02-07] MEDS: INSULIN ASPART (NovoLOG) 100 UNIT/ML VIAL SQ SCH ×4 (06:29→21:56)
[2023-02-07] MEDS: INSULIN DETEMIR (LEVEMIR) 100 UNIT/ML SYR SQ SCH (06:35)
[2023-02-07] MEDS: PANTOPRAZOLE 40 MG TABLET PO SCH (06:36)
[2023-02-07] MEDS: MIDODRINE 5 MG TAB PO SCH ×3 (06:36→17:26)
[2023-02-07] MEDS: IPRATROPIUM-ALBUTEROL 3 ML NEB INHALATION SCH ×4 (08:04→21:17)
[2023-02-07] MEDS: BUDESONIDE 1 MG/2 ML NEBU INHALATION SCH ×2 (08:04→21:17)
[2023-02-07] MEDS: FIDAXOMICIN 200 MG TABLET PO SCH ×2 (09:38→21:03)
[2023-02-07] MEDS: FUROSEMIDE 10 MG/ML 4 ML VIAL IV SCH ×2 (09:38→21:03)
[2023-02-07] MEDS: metOLazone 5 MG TAB PO SCH (09:38)
[2023-02-07] MEDS: ASPIRIN 81 MG PO SCH (09:38)
[2023-02-07] MEDS: METOPROLOL TARTRATE 50 MG TAB PO SCH ×2 (09:39→21:02)
[2023-02-07] MEDS: SODIUM BICARBONATE TAB 650 MG TAB PO SCH ×2 (09:39→17:26)
[2023-02-07] MEDS: APIXABAN 5 MG TAB PO SCH ×2 (09:39→17:26)
[2023-02-07] MEDS: AMIODARONE 200 MG TAB PO SCH (09:39)
[2023-02-07] MEDS: FERROUS SULFATE 325 MG TAB PO SCH (09:39)
[2023-02-07] MEDS: THIAMINE 100 MG TAB PO SCH (09:39)
[2023-02-07] MEDS: OXYBUTYNIN XL 5 MG TAB.ER.24 PO SCH (09:39)
[2023-02-07] MEDS: SPIRONOLACTONE 25 MG TAB PO SCH (09:39)
[2023-02-07] MEDS: allopurinoL 100 MG TAB PO SCH (09:39)
[2023-02-07 11:34] LABS: Glucose,Whole Blood 146 mg/dL (70-110)
--- NOTE | 2023-02-07 12:44 | P.PN ---
Subjective Progress Note Date: 02/07/23 Principal diagnosis: Respiratory failure. This is a 72-year-old male patient who is a poor historian who is residing in an extended care facility who was brought in by EMS yesterday for shortness of breath. He does have a history of chronic obstructive pulmonary disease, conges tive heart failure, chronic kidney disease, atrial fibrillation, diabetes mellitus, hypertension, hyperlipidemia, coronary disease with previous stent placement, anxiety/depression, former smoker. He was just discharged from here on 01/27/2023. Chest x-ray reveals a stable chest with basilar densities which were unchanged compared to 01/26/2023. Count 15.2. Hemoglobin 8.0. Platelets 427. Sodium 136. Potassium 4.7. Bicarb 16. BUN 56. Creatinine 1.63. Glucose 150. Urinalysis positive for many bacteria large leukocyte esterase and high WBCs. He is seen today in consultation on the selective care unit. He is currently resting comfortably in bed. Awake and alert. Underwent unable to give much history. He really required BiPAP support. He is currently on 4 L nasal cannula with O2 saturations up to 99%. Slightly tachycardic. He is initiated on DuoNeb inhalations, Pulmicort inhalations. IV diuretics. Anticoagulated with Eliquis. The patient was seen and evaluated today 01/31/2023 in follow-up on the selective care unit. He is currently resting fairly comfortably in bed. He is on BiPAP 12/5 on 40% FiO2. Follow up chest x-ray is stable with just a trace right pleural effusion. Blood cultures revealed no growth. Sodium 132. Potassium 4.8. Bicarb 15. BUN 55. Creatinine 1.3. Glucose 188. If he is continued on DuoNeb inhalations, Pulmicort inhalations. He is continued on Lasix 20 mg IV twice a day. Currently in a negative balance. Progress note dated 02/01/2023. 72-year-old male who was seen today in room 380. Currently, the patient's on 3 L of oxygen. His BiPAP settings included a IPAP of 12, EPAP of 5, and 40%. The patient is not receiving any IV fluids. His admitted to the hospital with a diagnosis of congestive heart failure, respiratory failure, and hypoxemia. White count is 12.8, hemoglobin 7.7, hematocrit 24.4, with a platelet count 334,000. Sodium 135, potassium 3.9, chlorides 106, CO2 18, anion gap 11, BUN 53, and creatinine 1.65. Glucose 112. Chest x-ray from January 31 shows a stable examination demonstrated trace right pleural effusion. Progress note dated 02/02/2023. 72-year-old male seen today in room 380. Yesterday, he was on 3 L of oxygen, but today, the patient is on BiPAP, with settings of 12/5, and 40%. He appears relatively comfortable. He is not receiving any IV fluids. He was admitted to the hospital with a diagnosis of CHF, respiratory failure, and hypoxemia. White count 12.5, hemoglobin 7.6, hematocrit 24, and platelet count 259,000. Sodium 137, potassium 4, chlorides 107, CO2 18, anion gap 12, BUN 46, creatinine 1.42. Glucose 112. Calcium is 8.2. No recent chest x-ray to report. Progress note dated 02/03/2023. 72-year-old male seen in room 380. The patient is currently on 3 L of oxygen. He does use BiPAP from time to time. Currently, he is on his nasal cannula. Saturations are 100% on 3 L. Clinically, the patient is stable. Labs today include a white count 11.1, hemoglobin 7.5, hematocrit 23.9, and a platelet count of 244,000. Sodium 137, potassium 3.5, chlorides 104, CO2 23, BUN 40, and creatinine 1.31. Glucose 178. Calcium is 7.9. Progress note dated 02/04/2023. This is a 72-year-old male seen in room 380. Currently, the patient's on 3 L by nasal cannula. At various times throughout the day, and at nighttime, the patient uses his BiPAP, with settings of 12/5, and 40%. The patient is not receiving any IV fluids at this time. Clinically, he looks awake and alert. His respiratory status has improved. Currently labs include a white count 11.7, hemoglobin 8, hematocrit 26, and platelet count 272,000. Sodium 138, potassium 3.4, chlorides 104, CO2 23, anion gap 11, BUN 34, and creatinine 1.24. Calcium is 7.9. Progress note dated 02/05/2023. 72-year-old male seen in room 380. Today, the patient's using BiPAP. His BiPAP settings of 12/5, and 35%. He is not receiving any IV fluids. When not on BiPAP, the patient's on nasal cannula, at 3 L. Clinically, the patient appears to be doing much better. He does feel much better. Currently, his white count 11.5, hemoglobin 7.7, hematocrit 26.1, with a normal platelet count of 258,000. Sodium 139, potassium 3.9, chlorides 102, CO2 24, anion gap 13, BUN 36, creatinine 1.35. Calcium is 8.1. The cause is 173. Progress note dated 02/06/2023. 72-year-old male seen today in room 380. He is currently on 3 L of oxygen. He has BiPAP at the bedside, that he uses intermittently, with settings of 12/5 and 35%. The patient is not on any IV fluids. Labs today include a glucose of 212. Progress note dated 02/07/2023. 72-year-old male seen again in room 380. The patient is currently on 3 L of oxygen. He is not receiving any IV fluids. The patient has been inpatient, now for 9 days. He has no new complaints today. No new labs today other than a glucose of 146. From yesterday, sodium 135, potassium 3.7, chlorides 101, CO2 22, anion gap 12, BUN 36, and creatinine 1.14. Calcium was 7.7. Objective - Vital Signs Vital signs: Vital Signs Temp 97.5 F L 02/07/23 12:04 Pulse 100 02/07/23 12:10 Resp 19 02/07/23 12:04 BP 146/87 02/07/23 12:04 Pulse Ox 99 02/07/23 12:04 FiO2 35 02/07/23 03:45 Intake & Output 02/06/23 02/07/23 02/07/23 18:59 06:59 18:59 Intake Total 120 120 Output Total 1100 700 Balance -980 -700 120 Weight 82 kg Intake: Oral 120 120 Output: Urine 1100 700 Other: Voiding Method Indwelling Catheter Indwelling Catheter Indwelling Catheter # Bowel Movements 1 - Exam No acute distress, oriented 3. The patient is currently on 3 L nasal cannula. Saturations are 99%. HEENT examination is grossly unremarkable. Mucous membranes are moist. No oral lesions. Neck supple. Full range of motion. No adenopathy thyromegaly or neck vein distention. Cardiovascular examination reveals regular rhythm rate. S1-S2 normal. No S3 or S4. No discernible murmur noted. Heart sounds are distant. Heart rate 97 bpm. Lungs reveal bibasilar crackles. Scattered rhonchi are noted. There are no wheezes. Breath sounds are equal bilaterally. Saturations are 99 %. Abdomen soft bowel sounds are heard. No masses or tenderness. Extremities are intact. No cyanosis clubbing or edema. Skin is without rash or lesion. Neurologic examination is brief but nonfocal. - Labs CBC & Chem 7: 02/05/23 09:09 02/06/23 11:43 Labs: Abnormal Lab Results - Last 24 Hours (Table) 02/06/23 02/06/23 02/07/23 Range/Units 16:41 19:50 11:27 POC Glucose (mg/dL) 127 H 123 H 146 H (70-110) mg/dL Assessment and Plan Assessment: Acute on chronic hypoxemic respiratory failure secondary to systolic congestive heart failure. Atrial fibrillation with varying ventricular response. Coronary disease with previous stent placement. Acute on chronic kidney disease. Hypertension. History of ventricular tachycardia with AICD placement. Hyperlipidemia. Diabetes mellitus. Poor overall functional performance based on the above-mentioned multiple comorbidities. 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 Plan: Plan dated 02/01/2023. The patient currently remains on oxygen at 3 L. He is on BiPAP at nighttime, and intermittently during the day, with settings of 12/5, and 40%. The patient was admitted with a diagnosis of CHF. He's not receiving any IV fluids. Labs, x-rays, medications are reviewed. The patient's overall prognosis remains guarded. We will continue to follow the patient and make recommendations along the way. Plan dated 02/02/2023. Currently, the patient is on BiPAP. Saturations are 100%. Labs, x-rays, and medications are all reviewed. The patient is not receiving any IV fluids. We will continue to follow the patient, and make recommendations along the way. He was admitted with a diagnosis of CHF. His prognosis remains guarded. No additional recommendations are made at this time. Plan dated 02/03/2023. The patient is seen today in room 380. The patient's currently on nasal O2 at 3 L. Saturations are 97%. Clinically, the patient appears to be relatively stable, and feels better. He does use his BiPAP device from time to time. He was admitted with a diagnosis of fluid overload/CHF. Labs, x-rays, medications are reviewed. Prognosis is certainly guarded. We will continue to follow the patient on a regular basis, and make recommendations where appropriate. Plan dated 02/04/2023. The patient continues on oxygen at 3 L. He seems be awake and alert. He sitting up in bed. He has no specific complaints today. Labs, x-rays, and medications are reviewed. He does use the BiPAP from time to time. We will continue to follow the patient, and make recommendations along the way. Labs, x-rays, and all medications have been reviewed. The patient's overall prognosis remains guarded. Hopeful discharge in the next few days or so. Plan dated 02/05/2023. The patient appears to be improving day by day. He is currently on BiPAP. When not on BiPAP, the patient uses nasal O2 at 3 L. Labs, x-rays, medications are reviewed. The patient's overall prognosis remains guarded. We will continue to follow the patient, make recommendations along the way. Prognosis is guarded. Plan dated 02/06/2023. The patient appears stable on 3 L nasal cannula. He uses BiPAP intermittently. Labs, x-rays, and medications are reviewed. Clinically, the patient's doing well, and is being evaluated for possible discharge. We will continue to follow, and make recommendations along the way. Overall prognosis remains guarded. Plan dated 02/07/2023. A chest x-ray will be ordered today. The patient is either on 3 L of oxygen by nasal cannula, or BiPAP. His BiPAP settings have remained the same. Labs, x- rays, and medications will be reviewed. His cultures, are all negative. We will continue to follow make recommendations along the way. While on BiPAP, settings of 12/5 and 40%. He's not receiving any IV fluids. He appears to be relatively stable. Time with Patient: Less than 30
--- NOTE | 2023-02-07 13:36 | P.PN ---
Subjective Progress Note Date: 02/07/23 Patient is a 72-year-old male with systolic CHF, A. fib on Eliquis, CAD status post stents, COPD, type 2 diabetes, and hypertension who presented from rehab with complaints of shortness of breath and chest discomfort. Patient has had 2 recent hospitalizations due to C. diff colitis with sepsis. His most recent discharge was on 01/27/23. On arrival to the ER this hospital stay he was in significant respiratory distress and was placed on rescue BiPAP. He was also noted to be tachycardic with a pulse of 117. In the ER he underwent extensive evaluation. Laboratory analysis included CBC, coags, VBG, CMP, troponin, and BNP which were remarkable for white blood cell count 18.7, hemoglobin 8.9, platelets 546, INR 1.3, pH 7.3, bicarbonate VBG 20, potassium 5.6, carbon dioxide 16, BUN 55, creatinine 1.78, and BNP 25,500. Influenza A/B/RSV/COVID-19 testing was negative. Chest x-ray demonstrated fluid in the right minor fissure and blunting of the costophrenic angle. In the ER he was given a dose of Lasix IV push, Decadron 10 mg once, DuoNeb was not administered due to Covid test, and he received Zithromax 500 mg IV piggyback 1. Arrangements are made for admission. Patient's respiratory status improved with intermittent BiPAP and Lasix IV. Pulmonology and Cardiology followed the patient during his hospitalization. He was continued on Fidoxomicin for treatment of C.diff sepsis. 02/01 Currently on Lasix 20 mg IV BID. Negative 332 cc over the past 24H. 02/02 Currently on Lasix 20 mg IV BID. Negative 756 cc over the past 24H. 02/03 He continues to look fluid overloaded. Cardiology has increased his Lasix to 40 mg IV BID. Negative 580 cc over the past 24H. 02/04 Cardiology has added Aldactone and discontinued Midodrine, continued IV lasix. Negative 1001 cc over the past 24H. 02/05 Cardiology increased his Metoprolol to 75 mg PO BID. Negative 900 cc over the past 24H. 02/06 Breathing improved but continues to have significant LE edema. Maintained on Lasix 40 mg IV BID. Negative 241 cc over the past 24H. He needs insurance auth to go back to [facility]. 02/07 Patient was seen and examined. CXR done this morning shows slightly worsened pulmonary vascular congestion compared to CXR on 01/31. Positive 240 cc fluid balance over the past 24H. Metolazone 5 mg PO QD added to improve diuresis. Maintained on Lasix 40 mg IV BID. He is pending insurance auth to go back to [facility]. General: non toxic, no distress, appears at stated age Derm: warm, dry Head: atraumatic, normocephalic, symmetric Eyes: EOMI, no lid lag, anicteric sclera Cardiovascular: S1S2 reg, no murmur Lungs: Decreased BS bilateral, no rhonchi, no rales , no accessory muscle use Ext: no gross muscle atrophy, 1-2+ edema, no contractures Neuro: no focal neuro deficits Psych: Alert, oriented, appropriate affect Based on my assessment of this patient, this patient meets a high complexity level of care. Patient has an acute diagnosis of acute hypoxic respiratory failure due to CHF exacerbation that poses a threat to life or bodily function. Acute hypoxic respiratory failure: BiPAP PRN. Lasix IV as above. DuoNeb PRN for SOB/wheezing. Pulmicort INH BID. Telemetry monitoring. Pulmonology and Cardiolog y on board. HFrEF exacerbation: EF 35-40% on 09/2022. Lasix 40 mg IV BID. Added Metolazone 5 mg PO QD on 02/07. Metoprolol 75 mg PO BID. Aldactone 25 mg PO QD. Would benefit from ACEi, defer decision to Cardiology. Strict intake and outtake. Daily weights. RAJAN on CKD: Due to forced diuresis. Metabolic acidosis: Sodium bicarbonate 650 mg PO BID. AFib with RVR: Eliquis 5 mg PO BID. Amiodarone 200 mg PO BID. Metoprolol 75 mg PO BID C. difficile: Fidaxomicin 200 mg PO BID D5/7. Unspecified psych disorder: Risperidal 0.5 mg PO QHS. Zoloft 50 mg PO QD. History of CAD: Lipitor 40 mg PO QD. ASA 81 mg PO QD. Diabetes mellitus: ISS. Levemir 10 units QD. Insurance auth started for patient to return to [facility]. Likely DC on Wednesday. CODE STATUS: FULL CODE DVT Prophylaxis: Eliquis. GI Prophylaxis: Designated medical POA if patient is not able to make medical decisions for themselves: Guardian I have reviewed the following technical consultant notes: Pulm, ID, Cardio note. I have reviewed the results of the following tests: BMP. I have ordered the following tests: BMP. I have discussed the care of this patient with the following independent historian: I have independently interpreted the following test below: CXR as above. I have discussed the management of this patient with the following physician: Discussed with Dr. Hernandez. This patient has a high risk of morbidity due to the following reasons: IV lasix requires intensive monitoring of electrolytes and renal function. Objective - Vital Signs Vital signs: Vital Signs Temp 97.5 F L 02/06/23 12:09 Pulse 103 H 02/07/23 08:26 Resp 19 02/07/23 03:45 BP 120/81 02/07/23 03:45 Pulse Ox 97 02/07/23 08:04 FiO2 35 02/07/23 03:45 Intake & Output 02/06/23 02/07/23 02/07/23 18:59 06:59 18:59 Intake Total 120 Output Total 1100 700 Balance -980 -700 Weight 82 kg Intake: Oral 120 Output: Urine 1100 700 Other: Voiding Method Indwelling Catheter Indwelling Catheter # Bowel Movements 1 - Labs CBC & Chem 7: 02/05/23 09:09 02/06/23 11:43 Labs: Abnormal Lab Results - Last 24 Hours (Table) 02/06/23 02/06/23 02/06/23 Range/Units 11:22 11:43 16:41 Sodium 135 L (137-145) mmol/L BUN 36 H (9-20) mg/dL Glucose 194 H (74-99) mg/dL POC Glucose (mg/dL) 212 H 127 H (70-110) mg/dL Calcium 7.7 L (8.4-10.2) mg/dL 02/06/23 Range/Units 19:50 Sodium (137-145) mmol/L BUN (9-20) mg/dL Glucose (74-99) mg/dL POC Glucose (mg/dL) 123 H (70-110) mg/dL Calcium (8.4-10.2) mg/dL
--- NOTE | 2023-02-07 14:07 | XR ---
EXAMINATION TYPE: XR chest 1V portable DATE OF EXAM: 02/07/2023 COMPARISON: 01/31/2023 INDICATION: CHF,: TECHNIQUE: Single frontal view of the chest is obtained. FINDINGS: The heart size is prominent. The pulmonary vasculature is prominent. Bibasilar infiltrates are present. Small effusions may be present. Pacemaker overlies left chest. Fixation pedicle screws and rods are present within the mid thoracic r egion. IMPRESSION: 1. Mild by basilar infiltrates. Correlate for atelectasis and pneumonia. 2. Small effusions may be present
--- NOTE | 2023-02-07 14:25 | P.PN ---
Subjective Progress Note Date: 02/06/23 Principal diagnosis: Reason for follow up C. diff colitis Patient is a 72-year-old male with a past medical history significant for atrial fibrillation coronary artery disease heart failure diabetes mellitus hypertension hyperlipidemia patient recently did have multiple admission to the hospital initially he did have bacteremia subsequently admitted for C. difficile colitis, presenting back to hospital with worsening shortness of breath and swelling concerning for possible fluid overload. On today's evaluation that is 02/06/2023 the patient continues to be afebrile, the patient is breathing comfortably on room air and denies any shortness of breath, the patient denies chest pain or cough, patient denies abdominal pain, no nausea/vomiting did have 1 loose stool per the nurse's aide Patient did have white count of 11.5 as of 02/05/2023, creatinine is 1.14, blood cultures so far negative urine culture negative Objective - Vital Signs Vital signs: Vital Signs Temp 97.5 F L 02/06/23 12:09 Pulse 91 02/06/23 12:09 Resp 20 02/06/23 12:09 BP 122/82 02/06/23 12:09 Pulse Ox 99 02/06/23 12:09 FiO2 35 02/05/23 20:55 Intake & Output 02/05/23 02/06/23 02/06/23 18:59 06:59 18:59 Intake Total 590 120 Output Total 350 850 Balance 240 -730 Weight 91.5 kg Intake: Oral 590 120 Output: Urine 350 850 Other: Voiding Method Indwelling Catheter Indwelling Catheter Indwelling Catheter # Bowel Movements 1 1 - Exam GENERAL DESCRIPTION: An elderly male lying in bed in no distress RESPIRATORY SYSTEM: Unlabored breathing , decreased breath sound at the base HEART: S1 S2 regular rate and rhythm , ABDOMEN: Soft , no tenderness EXTREMITIES: Diffuse swelling to bilateral lower extremity - Labs CBC & Chem 7: 02/05/23 09:09 02/06/23 11:43 Labs: Abnormal Lab Results - Last 24 Hours (Table) 02/05/23 02/05/23 02/06/23 Range/Units 16:06 20:09 06:13 Sodium (137-145) mmol/L BUN (9-20) mg/dL Glucose (74-99) mg/dL POC Glucose (mg/dL) 141 H 183 H 137 H (70-110) mg/dL Calcium (8.4-10.2) mg/dL 02/06/23 02/06/23 Range/Units 11:22 11:43 Sodium 135 L (137-145) mmol/L BUN 36 H (9-20) mg/dL Glucose 194 H (74-99) mg/dL POC Glucose (mg/dL) 212 H (70-110) mg/dL Calcium 7.7 L (8.4-10.2) mg/dL Assessment and Plan (1) C. difficile colitis Current Visit: No Status: Acute Code(s): A04.72 - ENTEROCOLITIS D/T CLOSTRIDIUM DIFFICILE, NOT SPCF RECUR SNOMED Code(s): 558929723 Plan: 1patient presented to hospital with increasing shortness that more likely related to underlying fluid overload as the patient did have significant swelling and evidence of effusion on chest x-ray clinically not behaving as pneumonia patient did not have any fever 2patient remains to be afebrile, the patient white count is trending down and the patient did have overall improvement in his diarrhea, patient to continue deficid advised increasing probiotic and yogurt intake Dictation was produced using [employer] dictation software. please excuse any grammatical, word or spelling errors. Time with Patient: Less than 30
--- NOTE | 2023-02-07 14:27 | P.PN ---
Subjective Progress Note Date: 02/07/23 Principal diagnosis: Reason for follow up C. diff colitis Patient is a 72-year-old male with a past medical history significant for atrial fibrillation coronary artery disease heart failure diabetes mellitus hypertension hyperlipidemia patient recently did have multiple admission to the hospital initially he did have bacteremia subsequently admitted for C. difficile colitis, presenting back to hospital with worsening shortness of breath and swelling concerning for possible fluid overload. On today's evaluation that is 02/07/2023 the patient denies any fever or any chills, the patient denies shortness of breath the patient denies having any chest pain or cough, the patient nausea/vomiting , no abdominal pain and no diarrhea reported by the nursing staff today. Patient did have white count of 11.5 as of 02/05/2023, creatinine is 1.14 as of 02/06/2023, blood cultures so far negative urine culture negative Objective - Vital Signs Vital signs: Vital Signs Temp 97.5 F L 02/07/23 12:04 Pulse 100 02/07/23 12:10 Resp 19 02/07/23 12:04 BP 146/87 02/07/23 12:04 Pulse Ox 99 02/07/23 12:04 FiO2 35 02/07/23 03:45 Intake & Output 02/06/23 02/07/23 02/07/23 18:59 06:59 18:59 Intake Total 120 240 Output Total 1100 700 Balance -980 -700 240 Weight 82 kg Intake: Oral 120 240 Output: Urine 1100 700 Other: Voiding Method Indwelling Catheter Indwelling Catheter Indwelling Catheter # Bowel Movements 1 - Exam GENERAL DESCRIPTION: An elderly male lying in bed in no distress RESPIRATORY SYSTEM: Unlabored breathing , decreased breath sound at the base HEART: S1 S2 regular rate and rhythm , ABDOMEN: Soft , no tenderness EXTREMITIES: Diffuse swelling to bilateral lower extremity - Labs CBC & Chem 7: 02/05/23 09:09 02/06/23 11:43 Labs: Abnormal Lab Results - Last 24 Hours (Table) 02/06/23 02/06/23 02/07/23 Range/Units 16:41 19:50 11:27 POC Glucose (mg/dL) 127 H 123 H 146 H (70-110) mg/dL Assessment and Plan (1) C. difficile colitis Current Visit: No Status: Acute Code(s): A04.72 - ENTEROCOLITIS D/T CLOSTRIDIUM DIFFICILE, NOT SPCF RECUR SNOMED Code(s): 524464740 Plan: 1patient presented to hospital with increasing shortness that more likely related to underlying fluid overload as the patient did have significant sw elling and evidence of effusion on chest x-ray clinically not behaving as pneumonia patient did not have any fever 2patient remains to be afebrile, the patient white count was trending down as of 02/05/2023, will repeat a CBC with a.m. lab 3-patient will be continued on deficid and monitor clinical course closely Dictation was produced using [employer] dictation software. please excuse any grammatical, word or spelling errors. Time with Patient: Less than 30
[2023-02-07 16:40] LABS: Glucose,Whole Blood 351 mg/dL (70-110)
--- NOTE | 2023-02-07 19:51 | P.PN ---
Subjective Progress Note Date: 02/07/23 Progress note: Patient's blood pressure is tolerating guideline directed medical therapy for congestive heart failure. Patient is tolerating diuretic therapy. He is tolerating lower dose of midodrine and increased dose of metoprolol. He still is volume overloaded. Primary team wanted to start metolazone. PHYSICAL EXAM: VITAL SIGNS: Reviewed. GENERAL: Well-developed in no acute distress. NECK: Supple. No JVD or thyromegaly LUNGS: Respirations even and unlabored. Lungs diminished at the bases. HEART: Irregular rate and rhythm. S1 and S2 heard. EXTREMITIES: Normal range of motion. No clubbing or cyanosis. Peripheral pulses intact. 1-2+ bilateral lower extremity edema ASSESSMENT: Acute on chronic heart failure with reduced ejection fraction Recent admission secondary to sepsis and recurrent C. diff Persistent atrial fibrillation with controlled ventricular rate Ischemic cardiomyopathy, EF 35-40% Coronary artery disease with previous stenting Ventricular tachycardia with previous AICD implantation Hypertension Hyperlipidemia Diabetes Chronic anemia PLAN: Reduce amiodarone to 200 mg daily from tomorrow as he has completed loading on 02/07/23 (7 days of 400 mg daily from 03/01/23) Continue Eliquis 5 mg, aspirin 81 mg Continue atorvastatin Continue Lasix 40 mg IV twice a day. Agree with metolazone 2.5 mg with Lasix. Give 30 minutes before Lasix. Consider discharging patient Bumex 1 mg by mouth twice a day as his diuretic regimen Aldactone 25 mg Continue metoprolol 100 mg twice a day Reduce midodrine to 2.5 mg before meals 3 times a day. If blood pressure stable, use midodrine only as needed MATILDE/mcc evaluation Daily weights, accurate I&O, and monitoring of kidney function Objective - Vital Signs Vital signs: Vital Signs Temp 97.5 F L 02/07/23 12:04 Pulse 99 02/07/23 17:25 Resp 19 02/07/23 17:25 BP 126/79 02/07/23 17:25 Pulse Ox 99 02/07/23 17:25 FiO2 35 02/07/23 15:28 Intake & Output 02/07/23 02/07/23 02/08/23 06:59 18:59 06:59 Intake Total 360 Output Total 700 300 Balance -700 60 Weight 82 kg Intake: Oral 360 Output: Urine 700 300 Other: Voiding Method Indwelling Catheter Indwelling Catheter # Bowel Movements 1 - Labs CBC & Chem 7: 02/05/23 09:09 02/06/23 11:43 Labs: Abnormal Lab Results - Last 24 Hours (Table) 02/06/23 02/07/23 02/07/23 Range/Units 19:50 11:27 16:39 POC Glucose (mg/dL) 123 H 146 H 351 H (70-110) mg/dL
[2023-02-07] MEDS: SERTRALINE 50 MG TAB PO SCH (21:02)
[2023-02-07] MEDS: ATORVASTATIN 40 MG TAB PO SCH (21:02)
[2023-02-07] MEDS: risperiDONE 0.5 MG TAB PO SCH (21:03)
[2023-02-07 21:18] LABS: Glucose,Whole Blood 147 mg/dL (70-110)
[2023-02-07 21:48] LABS: African American GFR (CKD) 71 (>60 ml/min/1.73 sqM); Anion Gap 11 mmol/L; Blood Urea Nitrogen 36 mg/dL (9-20); Carbon Dioxide 27 mmol/L (22-30); Chloride 97 mmol/L (98-107); Glucose 134 mg/dL (74-99); Non-African American GFR(CKD) 61 (>60 ml/min/1.73 sqM); Potassium 4.1 mmol/L (3.5-5.1); Sodium 135 mmol/L (137-145)
[2023-02-07 21:52] LABS: Anisocytosis Moderate; HCT 28.4 % (39.0-53.0); HGB 8.8 gm/dL (13.0-17.5); Hypochromasia Marked; MCH 34.1 pg (25.0-35.0); MCHC 30.9 g/dL (31.0-37.0); MCV 110.1 fL (80.0-100.0); Macrocytosis Marked; Mean Platelet Volume 7.7; Platelet Count 275 k/uL (150-450); Poikilocytosis Marked; RBC 2.58 m/uL (4.30-5.90); RDW 22.7 % (11.5-15.5); WBC 12.8 k/uL (3.8-10.6)
[2023-02-08 06:24] LABS: Glucose,Whole Blood 92 mg/dL (70-110)
[2023-02-08] MEDS: INSULIN ASPART (NovoLOG) 100 UNIT/ML VIAL SQ SCH ×4 (06:29→22:36)
[2023-02-08] MEDS: MIDODRINE 5 MG TAB PO SCH ×3 (06:31→17:28)
[2023-02-08] MEDS: INSULIN DETEMIR (LEVEMIR) 100 UNIT/ML SYR SQ SCH (06:31)
[2023-02-08] MEDS: PANTOPRAZOLE 40 MG TABLET PO SCH (06:31)
[2023-02-08] MEDS: BUDESONIDE 1 MG/2 ML NEBU INHALATION SCH ×2 (08:13→15:27)
[2023-02-08] MEDS: IPRATROPIUM-ALBUTEROL 3 ML NEB INHALATION SCH ×4 (08:13→21:16)
--- NOTE | 2023-02-08 08:27 | XR ---
EXAMINATION TYPE: XR chest 1V portable DATE OF EXAM: 02/08/2023 COMPARISON: 02/07/2023 HISTORY: Shortness of breath TECHNIQUE: Single frontal view of the chest is obtained. FINDINGS: Bilateral consolidation and pleural effusion. Postsurgical change involving the vertebral canal. Right cardiac device seen. No pneumothorax. Diffuse interstitial pattern. IMPRESSION: 1. Increasing right-sided pleural effusion correlate for CHF. Otherwise consider pneumonia.
[2023-02-08] MEDS: metOLazone 5 MG TAB PO SCH (08:51)
[2023-02-08] MEDS: FUROSEMIDE 10 MG/ML 4 ML VIAL IV SCH ×2 (08:51→22:43)
[2023-02-08] MEDS: allopurinoL 100 MG TAB PO SCH (08:52)
[2023-02-08] MEDS: OXYBUTYNIN XL 5 MG TAB.ER.24 PO SCH (08:52)
[2023-02-08] MEDS: METOPROLOL TARTRATE 50 MG TAB PO SCH ×2 (08:52→22:42)
[2023-02-08] MEDS: SPIRONOLACTONE 25 MG TAB PO SCH (08:52)
[2023-02-08] MEDS: THIAMINE 100 MG TAB PO SCH (08:52)
[2023-02-08] MEDS: SODIUM BICARBONATE TAB 650 MG TAB PO SCH ×2 (08:52→17:28)
[2023-02-08] MEDS: ASPIRIN 81 MG PO SCH (08:52)
[2023-02-08] MEDS: FERROUS SULFATE 325 MG TAB PO SCH (08:52)
[2023-02-08] MEDS: APIXABAN 5 MG TAB PO SCH ×2 (08:52→17:28)
[2023-02-08] MEDS: FIDAXOMICIN 200 MG TABLET PO SCH ×2 (08:52→22:43)
[2023-02-08] MEDS: AMIODARONE 200 MG TAB PO SCH (08:52)
[2023-02-08 11:25] LABS: Glucose,Whole Blood 131 mg/dL (70-110)
--- NOTE | 2023-02-08 11:39 | P.PN ---
Subjective Progress Note Date: 02/08/23 This is a 72-year-old male patient who is a poor historian who is residing in an extended care facility who was brought in by EMS yesterday for shortness of breath. He does have a history of chronic obstructive pulmonary disease, congestive heart failure, chronic kidney disease, atrial fibrillation, diabetes mellitus, hypertension, hyperlipidemia, coronary disease with previous stent placement, anxiety/depression, former smoker. He was just discharged from here on 01/27/2023. Chest x-ray reveals a stable chest with basilar densities which were unchanged compared to 01/26/2023. Count 15.2. Hemoglobin 8.0. Platelets 427. Sodium 136. Potassium 4.7. Bicarb 16. BUN 56. Creatinine 1.63. Glu cose 150. Urinalysis positive for many bacteria large leukocyte esterase and high WBCs. He is seen today in consultation on the selective care unit. He is currently resting comfortably in bed. Awake and alert. Underwent unable to give much history. He really required BiPAP support. He is currently on 4 L nasal cannula with O2 saturations up to 99%. Slightly tachycardic. He is initiated on DuoNeb inhalations, Pulmicort inhalations. IV diuretics. Anticoagulated with Eliquis. The patient was seen and evaluated today 01/31/2023 in follow-up on the selective care unit. He is currently resting fairly comfortably in bed. He is on BiPAP 12/5 on 40% FiO2. Follow up chest x-ray is stable with just a trace right pleural effusion. Blood cultures revealed no growth. Sodium 132. Potass ium 4.8. Bicarb 15. BUN 55. Creatinine 1.3. Glucose 188. If he is continued on DuoNeb inhalations, Pulmicort inhalations. He is continued on Lasix 20 mg IV twice a day. Currently in a negative balance. Progress note dated 02/01/2023. 72-year-old male who was seen today in room 380. Currently, the patient's on 3 L of oxygen. His BiPAP settings included a IPAP of 12, EPAP of 5, and 40%. The patient is not receiving any IV fluids. His admitted to the hospital with a diagnosis of congestive heart failure, respiratory failure, and hypoxemia. White count is 12.8, hemoglobin 7.7, hematocrit 24.4, with a platelet count 334,000. Sodium 135, potassium 3.9, chlorides 106, CO2 18, anion gap 11, BUN 53, and creatinine 1.65. Glucose 112. Chest x-ray from January 31 shows a stable examination demonstrated trace right pleural effusion. Progress note dated 02/02/2023. 72-year-old male seen today in room 380. Yesterday, he was on 3 L of oxygen, but today, the patient is on BiPAP, with settings of 12/5, and 40%. He appears relatively comfortable. He is not receiving any IV fluids. He was admitted to the hospital with a diagnosis of CHF, respiratory failure, and hypoxemia. White count 12.5, hemoglobin 7.6, hematocrit 24, and platelet count 259,000. Sodium 137, potassium 4, chlorides 107, CO2 18, anion gap 12, BUN 46, creatinine 1.42. Glucose 112. Calcium is 8.2. No recent chest x-ray to report. Progress note dated 02/03/2023. 72-year-old male seen in room 380. The patient is currently on 3 L of oxygen. He does use BiPAP from time to time. Currently, he is on his nasal cannula. Saturations are 100% on 3 L. Clinically, the patient is stable. Labs today include a white count 11.1, hemoglobin 7.5, hematocrit 23.9, and a platelet count of 244,000. Sodium 137, potassium 3.5, chlorides 104, CO2 23, BUN 40, and creatinine 1.31. Glucose 178. Calcium is 7.9. Progress note dated 02/04/2023. This is a 72-year-old male seen in room 380. Currently, the patient's on 3 L by nasal cannula. At various times throughout the day, and at nighttime, the patient uses his BiPAP, with settings of 12/5, and 40%. The patient is not receiving any IV fluids at this time. Clinically, he looks awake and alert. His respiratory status has improved. Currently labs include a white count 11.7, hemoglobin 8, hematocrit 26, and platelet count 272,000. Sodium 138, potassium 3.4, chlorides 104, CO2 23, anion gap 11, BUN 34, and creatinine 1.24. Calcium is 7.9. Progress note dated 02/05/2023. 72-year-old male seen in room 380. Today, the patient's using BiPAP. His BiPAP settings of 12/5, and 35%. He is not receiving any IV fluids. When not on BiPAP, the patient's on nasal cannula, at 3 L. Clinically, the patient appears to be doing much better. He does feel much better. Currently, his white count 11.5, hemoglobin 7.7, hematocrit 26.1, with a normal platelet count of 258,000. Sodium 139, potassium 3.9, chlorides 102, CO2 24, anion gap 13, BUN 36, cre atinine 1.35. Calcium is 8.1. The cause is 173. Progress note dated 02/06/2023. 72-year-old male seen today in room 380. He is currently on 3 L of oxygen. He has BiPAP at the bedside, that he uses intermittently, with settings of 12/5 and 35%. The patient is not on any IV fluids. Labs today include a glucose of 212. Progress note dated 02/07/2023. 72-year-old male seen again in room 380. The patient is currently on 3 L of oxygen. He is not receiving any IV fluids. The patient has been inpatient, now for 9 days. He has no new complaints today. No new labs today other than a glucose of 146. From yesterday, sodium 135, potassium 3.7, chlorides 101, CO2 22, anion gap 12, BUN 36, and creatinine 1.14. Calcium was 7.7. On 02/08/2023, the patient became more short of breath. He was on 3 L of oxygen by nasal cannula. He was placed on a BiPAP at a pressure of 12/5 with an FiO2 of 35%. The chest x-ray was also done that showed a right-sided pleural effusion and some fluid around the fissure and the right lung base. The patient's chest x-ray showed increasing right-sided pleural effusion and CHF findings. There is also a pacemaker device over the left anterior chest area. There is increased pulmonary vessel markings bilaterally. The patient was given diuretics and the patient is currently on Lasix 40 mg IV every 12 hours. He has made excellent urine output. The patient has produced approximately 1.6 L of fluid balance has been negative over the past 24 hours. The enzymes at 36 with a creatinine of 1.1 and a sodium level is at 135. No vesicles of 12.8 with a hemoglobin of 8.8 and a platelet count of 275. After being stabilized on BiPAP, the patient was transitioned back on oxygen at 3 L. He seems to much more comfortable this point in time. He is known to have itchy fibrillation and the patient is currently on anticoagulation with Eliquis 5 mg by mouth twice a day. The patient is also metoprolol 100 mg by mouth twice a day and amiodarone 200 mg by mouth daily. He is on updrafts with DuoNeb nebulized treatments [id number]. The patient remains on Zaroxolyn 5 mg by mouth daily, Aldactone 25 mg by mouth daily, Levemir insulin for blood sugar control 10 units daily and a slight scale coverage with insulin. Objective - Vital Signs Vital signs: Vital Signs Temp 97.6 F 02/08/23 08:45 Pulse 80 02/08/23 11:19 Resp 22 02/08/23 08:45 BP 127/74 02/08/23 08:45 Pulse Ox 100 02/08/23 08:45 FiO2 35 02/08/23 11:24 Intake & Output 02/07/23 02/08/23 02/08/23 18:59 06:59 18:59 Intake Total 360 230 240 Output Total 300 1 Balance 60 229 240 Weight 109.5 kg Intake: Oral 360 230 240 Output: Urine 300 Stool 1 Other: Voiding Method Indwelling Catheter Indwelling Catheter Indwelling Catheter # Bowel Movements 1 - Exam No acute distress, oriented 3. The patient is currently on 3 L nasal cannula. Saturations are 99%. HEENT examination is grossly unremarkable. Mucous membranes are moist. No oral lesions. Neck supple. Full range of motion. No adenopathy thyromegaly or neck vein distention. Cardiovascular examination reveals regular rhythm rate. S1-S2 normal. No S3 or S4. No discernible murmur noted. Heart sounds are distant. Heart rate 97 bpm. Lungs reveal bibasilar crackles. Scattered rhonchi are noted. There are no wheezes. Breath sounds are equal bilaterally. Saturations are 99 %. Abdomen soft bowel sounds are heard. No masses or tenderness. Extremities are intact. No cyanosis clubbing or edema. Skin is without rash or lesion. Neurologic examination is brief but nonfocal. - Labs CBC & Chem 7: 02/07/23 21:10 02/07/23 21:10 Labs: Abnormal Lab Results - Last 24 Hours (Table) 02/07/23 02/07/23 02/07/23 Range/Units 11:27 16:39 21:10 WBC 12.8 H (3.8-10.6) k/uL RBC 2.58 L (4.30-5.90) m/uL Hgb 8.8 L (13.0-17.5) gm/dL Hct 28.4 L (39.0-53.0) % MCV 110.1 H (80.0-100.0) fL MCHC 30.9 L (31.0-37.0) g/dL RDW 22.7 H (11.5-15.5) % Macrocytosis Marked A Sodium (137-145) mmol/L Chloride (98-107) mmol/L BUN (9-20) mg/dL Glucose (74-99) mg/dL POC Glucose (mg/dL) 146 H 351 H (70-110) mg/dL Calcium (8.4-10.2) mg/dL 02/07/23 02/07/23 02/08/23 Range/Units 21:10 21:17 11:23 WBC (3.8-10.6) k/uL RBC (4.30-5.90) m/uL Hgb (13.0-17.5) gm/dL Hct (39.0-53.0) % MCV (80.0-100.0) fL MCHC (31.0-37.0) g/dL RDW (11.5-15.5) % Macrocytosis Sodium 135 L (137-145) mmol/L Chloride 97 L (98-107) mmol/L BUN 36 H (9-20) mg/dL Glucose 134 H (74-99) mg/dL POC Glucose (mg/dL) 147 H 131 H (70-110) mg/dL Calcium 8.0 L (8.4-10.2) mg/dL Assessment and Plan Plan: Acute on chronic hypoxemic respiratory failure secondary to systolic congestive heart failure. The patient is currently on 3 L of oxygen by nasal cannula. Earlier, he became hypoxemic and was placed on BiPAP at pressures of 12/5 an FiO2 of 30%. Atrial fibrillation with varying ventricular response. Coronary disease with previous stent placement. CHF with an ejection fraction of 35% Acute on chronic kidney disease, renal function is improved Hypertension. History of ventricular tachycardia with AICD placement. Hyperlipidemia. Diabetes mellitus. Poor overall functional performance based on the above-mentioned multiple comorbidities. snf resident. Plan No need for immediate thoracentesis at this point in time spent with the patient has been on anticoagulants. Continue diuretics and the patient is currently on Lasix 40 mg twice a day, Zaroxolyn and Aldactone Producing good urine output The patient has been taken off the BiPAP and placed back on oxygen at 3 L Continue rest of the treatment., He has significant amount of edema in all 4 extremities and the patient will benefit from diuresis for the time being. His last echocardiogram is from 09/24/2022 and it shows a moderate impairment of LV function with an ejection fraction of 35-40%.
--- NOTE | 2023-02-08 14:25 | P.PN ---
Subjective Progress Note Date: 02/08/23 Progress note: Patient's blood pressure is tolerating guideline directed medical therapy for congestive heart failure. Patient is tolerating diuretic therapy. He is tolerating lower dose of midodrine and increased dose of metoprolol. He still is volume overloaded. Primary team wanted to start metolazone. 02/08 Patient is seen today in follow-up. He states that he is breathing better on BiPAP. He continues to have significant lower extremity edema. Patient is noted to have significant change on his chest x-ray from previous and this discussed with Dr. Antonio. Blood pressure 114/66, heart rate 95, pulse ox 97% on 3 L nasal cannula. PHYSICAL EXAM: VITAL SIGNS: Reviewed. GENERAL: Well-developed in no acute distress. NECK: Supple. No JVD or thyromegaly LUNGS: Respirations even and unlabored. Lungs diminished on the right. HEART: Irregular rate and rhythm. S1 and S2 heard. EXTREMITIES: Normal range of motion. No clubbing or cyanosis. Peripheral pulses intact. 1-2+ bilateral lower extremity edema ASSESSMENT: Acute on chronic heart failure with reduced ejection fraction Recent admission secondary to sepsis and recurrent C. diff Persistent atrial fibrillation with controlled ventricular rate Ischemic cardiomyopathy, EF 35-40% Coronary artery disease with previous stenting Ventricular tachycardia with previous AICD implantation Hypertension Hyperlipidemia Diabetes Chronic anemia PLAN: Reduce amiodarone to 200 mg daily Continue Eliquis 5 mg, aspirin 81 mg Continue atorvastatin Continue Lasix 40 mg IV twice a day. Agree with metolazone 2.5 mg with Lasix. Give 30 minutes before Lasix. Aldactone 25 mg Continue metoprolol 100 mg twice a day Reduce midodrine to 2.5 mg before meals 3 times a day. If blood pressure stable, use midodrine only as needed MATILDE/detention evaluation Daily weights, accurate I&O, and monitoring of kidney function Nurse practitioner note has been reviewed, I agree with the documented findings and plan of care. Patient was seen and examined. Objective - Vital Signs Vital signs: Vital Signs Temp 97.6 F 02/08/23 08:45 Pulse 97 02/08/23 08:45 Resp 22 02/08/23 08:45 BP 127/74 02/08/23 08:45 Pulse Ox 100 02/08/23 08:45 FiO2 35 02/08/23 08:45 Intake & Output 02/07/23 02/08/23 02/08/23 18:59 06:59 18:59 Intake Total 360 230 240 Output Total 300 1 Balance 60 229 240 Weight 109.5 kg Intake: Oral 360 230 240 Output: Urine 300 Stool 1 Other: Voiding Method Indwelling Catheter Indwelling Catheter Indwelling Catheter # Bowel Movements 1 - Labs CBC & Chem 7: 02/07/23 21:10 02/07/23 21:10 Labs: Abnormal Lab Results - Last 24 Hours (Table) 02/07/23 02/07/23 02/07/23 Range/Units 11:27 16:39 21:10 WBC 12.8 H (3.8-10.6) k/uL RBC 2.58 L (4.30-5.90) m/uL Hgb 8.8 L (13.0-17.5) gm/dL Hct 28.4 L (39.0-53.0) % MCV 110.1 H (80.0-100.0) fL MCHC 30.9 L (31.0-37.0) g/dL RDW 22.7 H (11.5-15.5) % Macrocytosis Marked A Sodium (137-145) mmol/L Chloride (98-107) mmol/L BUN (9-20) mg/dL Glucose (74-99) mg/dL POC Glucose (mg/dL) 146 H 351 H (70-110) mg/dL Calcium (8.4-10.2) mg/dL 02/07/23 02/07/23 Range/Units 21:10 21:17 WBC (3.8-10.6) k/uL RBC (4.30-5.90) m/uL Hgb (13.0-17.5) gm/dL Hct (39.0-53.0) % MCV (80.0-100.0) fL MCHC (31.0-37.0) g/dL RDW (11.5-15.5) % Macrocytosis Sodium 135 L (137-145) mmol/L Chloride 97 L (98-107) mmol/L BUN 36 H (9-20) mg/dL Glucose 134 H (74-99) mg/dL POC Glucose (mg/dL) 147 H (70-110) mg/dL Calcium 8.0 L (8.4-10.2) mg/dL
--- NOTE | 2023-02-08 15:10 | P.PN ---
Subjective Progress Note Date: 02/08/23 Pt has no new complaints. On BIPAP when i evaluated him, but he reported having good appetite and improving dyspnea. Gen: awake, alert HEENT: normocephalic, atraumatic, good hearing acuity, moist mucous membranes Resp: good air exchange, breathing comfortably with no accessory muscle use CVS: good distal perfusion x 4, GI: soft, NTTP, ND : no SPT, no CVAT, youssef catheter not present MSK: Bilateral pitting edema, no clubbing Neuro: non-focal, moving all extremities Psych: cooperative, euthymic mood Hospital course: Patient is a 72-year-old male with systolic CHF, A. fib on Eliquis, CAD status post stents, COPD, type 2 diabetes, and hypertension who presented from rehab with complaints of shortness of breath and chest discomfort. Patient has had 2 recent hospitalizations due to C. diff colitis with sepsis. His most recent discharge was on 01/27/23. On arrival to the ER this hospital stay he was in significant respiratory distress and was placed on rescue BiPAP. He was also noted to be tachycardic with a pulse of 117. In the ER he underwent extensive evaluation. Laboratory analysis included CBC, coags, VBG, CMP, troponin, and BNP which were remarkable for white blood cell count 18.7, hemoglobin 8.9, platelets 546, INR 1.3, pH 7.3, bicarbonate VBG 20, potassium 5.6, carbon dioxide 16, BUN 55, creatinine 1.78, and BNP 25,500. Influenza A/B/RSV/COVID-19 testing was negative. Chest x-ray demonstrated fluid in the right minor fissure and blunting of the costophrenic angle. In the ER he was given a dose of Lasix IV push, Decadron 10 mg once, DuoNeb was not administered due to Covid test, and he received Zithromax 500 mg IV piggyback 1. Arrangements are made for admission. Patient's respiratory status improved with intermittent BiPAP and Lasix IV. Pulmonology and Cardiology followed the patient during his hospitalization. He was continued on Fidoxomicin for treatment of C.diff sepsis. 02/01 Currently on Lasix 20 mg IV BID. Negative 332 cc over the past 24H. 02/02 Currently on Lasix 20 mg IV BID. Negative 756 cc over the past 24H. 02/03 He continues to look fluid overloaded. Cardiology has increased his Lasix to 40 mg IV BID. Negative 580 cc over the past 24H. 02/04 Cardiology has added Aldactone and discontinued Midodrine, continued IV lasix. Negative 1001 cc over the past 24H. 02/05 Cardiology increased his Metoprolol to 75 mg PO BID. Negative 900 cc over the past 24H. 02/06 Breathing improved but continues to have significant LE edema. Maintained on Lasix 40 mg IV BID. Negative 241 cc over the past 24H. He needs insurance auth to go back to [facility]. 02/07 Patient was seen and examined. CXR done this morning shows slightly worsened pulmonary vascular congestion compared to CXR on 01/31. Positive 240 cc fluid balance over the past 24H. Metolazone 5 mg PO QD added to improve diuresis. Maintained on Lasix 40 mg IV BID. He is pending insurance auth to go back to [facility]. Assessment/Plan: Acute Hypoxemic Respiratory Failure Acute on Chronic Heart Failure exacerbation, EF 35-40% RAJAN on CKD - continue lasix IV - duoneb PRN, pulmicort BID - pulmonology consult, cardiology consult appreciated - continue to monitor Cr Paroxysmal AFib with RVR - Eliquis 5mg BID - amiodarone 200mg BID - metoprolol 75mg BID C Diff infection - fidaxomicn day 08/12 today Pysch Disorder CAD DM - home medication reviewed and reconciled Insurance auth started for patient to return to [facility]. Likely DC once respiratory status improves CODE STATUS: FULL CODE DVT Prophylaxis: Eliquis. GI Prophylaxis: Designated medical POA if patient is not able to make medical decisions for themselves: Guardian Objective - Vital Signs Vital signs: Vital Signs Temp 97.8 F 02/08/23 12:15 Pulse 95 02/08/23 12:15 Resp 22 02/08/23 12:15 BP 114/66 02/08/23 12:15 Pulse Ox 97 02/08/23 12:15 FiO2 35 02/08/23 11:24 Intake & Output 02/07/23 02/08/23 02/08/23 18:59 06:59 18:59 Intake Total 360 230 240 Output Total 300 1 Balance 60 229 240 Weight 109.5 kg Intake: Oral 360 230 240 Output: Urine 300 Stool 1 Other: Voiding Method Indwelling Catheter Indwelling Catheter Indwelling Catheter # Bowel Movements 1 - Labs CBC & Chem 7: 02/07/23 21:10 02/07/23 21:10 Labs: Abnormal Lab Results - Last 24 Hours (Table) 02/07/23 02/07/23 02/07/23 Range/Units 16:39 21:10 21:10 WBC 12.8 H (3.8-10.6) k/uL RBC 2.58 L (4.30-5.90) m/uL Hgb 8.8 L (13.0-17.5) gm/dL Hct 28.4 L (39.0-53.0) % MCV 110.1 H (80.0-100.0) fL MCHC 30.9 L (31.0-37.0) g/dL RDW 22.7 H (11.5-15.5) % Macrocytosis Marked A Sodium 135 L (137-145) mmol/L Chloride 97 L (98-107) mmol/L BUN 36 H (9-20) mg/dL Glucose 134 H (74-99) mg/dL POC Glucose (mg/dL) 351 H (70-110) mg/dL Calcium 8.0 L (8.4-10.2) mg/dL 02/07/23 02/08/23 Range/Units 21:17 11:23 WBC (3.8-10.6) k/uL RBC (4.30-5.90) m/uL Hgb (13.0-17.5) gm/dL Hct (39.0-53.0) % MCV (80.0-100.0) fL MCHC (31.0-37.0) g/dL RDW (11.5-15.5) % Macrocytosis Sodium (137-145) mmol/L Chloride (98-107) mmol/L BUN (9-20) mg/dL Glucose (74-99) mg/dL POC Glucose (mg/dL) 147 H 131 H (70-110) mg/dL Calcium (8.4-10.2) mg/dL
[2023-02-08 16:30] LABS: Glucose,Whole Blood 102 mg/dL (70-110)
[2023-02-08 22:37] LABS: Glucose,Whole Blood 136 mg/dL (70-110)
[2023-02-08] MEDS: risperiDONE 0.5 MG TAB PO SCH (22:43)
[2023-02-08] MEDS: ATORVASTATIN 40 MG TAB PO SCH (22:43)
[2023-02-08] MEDS: SERTRALINE 50 MG TAB PO SCH (22:43)
[2023-02-09 06:17] LABS: Glucose,Whole Blood 106 mg/dL (70-110)
[2023-02-09] MEDS: INSULIN ASPART (NovoLOG) 100 UNIT/ML VIAL SQ SCH ×3 (06:51→16:55)
[2023-02-09] MEDS: MIDODRINE 5 MG TAB PO SCH ×4 (06:58→16:59)
[2023-02-09] MEDS: PANTOPRAZOLE 40 MG TABLET PO SCH (06:58)
[2023-02-09] MEDS: IPRATROPIUM-ALBUTEROL 3 ML NEB INHALATION SCH ×3 (08:39→16:08)
[2023-02-09] MEDS: BUDESONIDE 1 MG/2 ML NEBU INHALATION SCH (08:39)
[2023-02-09] MEDS: AMIODARONE 200 MG TAB PO SCH (09:04)
[2023-02-09] MEDS: SPIRONOLACTONE 25 MG TAB PO SCH (09:05)
[2023-02-09] MEDS: METOPROLOL TARTRATE 50 MG TAB PO SCH (09:05)
[2023-02-09] MEDS: THIAMINE 100 MG TAB PO SCH (09:05)
[2023-02-09] MEDS: FERROUS SULFATE 325 MG TAB PO SCH (09:05)
[2023-02-09] MEDS: APIXABAN 5 MG TAB PO SCH ×2 (09:05→16:54)
[2023-02-09] MEDS: ASPIRIN 81 MG PO SCH (09:05)
[2023-02-09] MEDS: metOLazone 5 MG TAB PO SCH (09:05)
[2023-02-09] MEDS: allopurinoL 100 MG TAB PO SCH (09:05)
[2023-02-09] MEDS: OXYBUTYNIN XL 5 MG TAB.ER.24 PO SCH (09:05)
[2023-02-09] MEDS: SODIUM BICARBONATE TAB 650 MG TAB PO SCH ×2 (09:05→16:54)
[2023-02-09] MEDS: FUROSEMIDE 10 MG/ML 4 ML VIAL IV SCH (09:06)
[2023-02-09 10:43] LABS: African American GFR (CKD) 54 (>60 ml/min/1.73 sqM); Anion Gap 12 mmol/L; Blood Urea Nitrogen 42 mg/dL (9-20); Carbon Dioxide 31 mmol/L (22-30); Chloride 93 mmol/L (98-107); Glucose 148 mg/dL (74-99); Magnesium 1.6 mg/dL (1.6-2.3); Non-African American GFR(CKD) 47 (>60 ml/min/1.73 sqM); Potassium 3.5 mmol/L (3.5-5.1); Sodium 136 mmol/L (137-145)
--- NOTE | 2023-02-09 10:54 | P.PN ---
Subjective Progress Note Date: 02/09/23 This is a 72-year-old male patient who is a poor historian who is residing in an extended care facility who was brought in by EMS yesterday for shortness of breath. He does have a history of chronic obstructive pulmonary disease, congestive heart failure, chronic kidney disease, atrial fibrillation, diabetes mellitus, hypertension, hyperlipidemia, coronary disease with previous stent placement, anxiety/depression, former smoker. He was just discharged from here on 01/27/2023. Chest x-ray reveals a stable chest with basilar densities which were unchanged compared to 01/26/2023. Count 15.2. Hemoglobin 8.0. Platelets 427. Sodium 136. Potassium 4.7. Bicarb 16. BUN 56. Creatinine 1.63. Glu cose 150. Urinalysis positive for many bacteria large leukocyte esterase and high WBCs. He is seen today in consultation on the selective care unit. He is currently resting comfortably in bed. Awake and alert. Underwent unable to give much history. He really required BiPAP support. He is currently on 4 L nasal cannula with O2 saturations up to 99%. Slightly tachycardic. He is initiated on DuoNeb inhalations, Pulmicort inhalations. IV diuretics. Anticoagulated with Eliquis. The patient was seen and evaluated today 01/31/2023 in follow-up on the selective care unit. He is currently resting fairly comfortably in bed. He is on BiPAP 12/5 on 40% FiO2. Follow up chest x-ray is stable with just a trace right pleural effusion. Blood cultures revealed no growth. Sodium 132. Potass ium 4.8. Bicarb 15. BUN 55. Creatinine 1.3. Glucose 188. If he is continued on DuoNeb inhalations, Pulmicort inhalations. He is continued on Lasix 20 mg IV twice a day. Currently in a negative balance. Progress note dated 02/01/2023. 72-year-old male who was seen today in room 380. Currently, the patient's on 3 L of oxygen. His BiPAP settings included a IPAP of 12, EPAP of 5, and 40%. The patient is not receiving any IV fluids. His admitted to the hospital with a diagnosis of congestive heart failure, respiratory failure, and hypoxemia. White count is 12.8, hemoglobin 7.7, hematocrit 24.4, with a platelet count 334,000. Sodium 135, potassium 3.9, chlorides 106, CO2 18, anion gap 11, BUN 53, and creatinine 1.65. Glucose 112. Chest x-ray from January 31 shows a stable examination demonstrated trace right pleural effusion. Progress note dated 02/02/2023. 72-year-old male seen today in room 380. Yesterday, he was on 3 L of oxygen, but today, the patient is on BiPAP, with settings of 12/5, and 40%. He appears relatively comfortable. He is not receiving any IV fluids. He was admitted to the hospital with a diagnosis of CHF, respiratory failure, and hypoxemia. White count 12.5, hemoglobin 7.6, hematocrit 24, and platelet count 259,000. Sodium 137, potassium 4, chlorides 107, CO2 18, anion gap 12, BUN 46, creatinine 1.42. Glucose 112. Calcium is 8.2. No recent chest x-ray to report. Progress note dated 02/03/2023. 72-year-old male seen in room 380. The patient is currently on 3 L of oxygen. He does use BiPAP from time to time. Currently, he is on his nasal cannula. Saturations are 100% on 3 L. Clinically, the patient is stable. Labs today include a white count 11.1, hemoglobin 7.5, hematocrit 23.9, and a platelet count of 244,000. Sodium 137, potassium 3.5, chlorides 104, CO2 23, BUN 40, and creatinine 1.31. Glucose 178. Calcium is 7.9. Progress note dated 02/04/2023. This is a 72-year-old male seen in room 380. Currently, the patient's on 3 L by nasal cannula. At various times throughout the day, and at nighttime, the patient uses his BiPAP, with settings of 12/5, and 40%. The patient is not receiving any IV fluids at this time. Clinically, he looks awake and alert. His respiratory status has improved. Currently labs include a white count 11.7, hemoglobin 8, hematocrit 26, and platelet count 272,000. Sodium 138, potassium 3.4, chlorides 104, CO2 23, anion gap 11, BUN 34, and creatinine 1.24. Calcium is 7.9. Progress note dated 02/05/2023. 72-year-old male seen in room 380. Today, the patient's using BiPAP. His BiPAP settings of 12/5, and 35%. He is not receiving any IV fluids. When not on BiPAP, the patient's on nasal cannula, at 3 L. Clinically, the patient appears to be doing much better. He does feel much better. Currently, his white count 11.5, hemoglobin 7.7, hematocrit 26.1, with a normal platelet count of 258,000. Sodium 139, potassium 3.9, chlorides 102, CO2 24, anion gap 13, BUN 36, cre atinine 1.35. Calcium is 8.1. The cause is 173. Progress note dated 02/06/2023. 72-year-old male seen today in room 380. He is currently on 3 L of oxygen. He has BiPAP at the bedside, that he uses intermittently, with settings of 12/5 and 35%. The patient is not on any IV fluids. Labs today include a glucose of 212. Progress note dated 02/07/2023. 72-year-old male seen again in room 380. The patient is currently on 3 L of oxygen. He is not receiving any IV fluids. The patient has been inpatient, now for 9 days. He has no new complaints today. No new labs today other than a glucose of 146. From yesterday, sodium 135, potassium 3.7, chlorides 101, CO2 22, anion gap 12, BUN 36, and creatinine 1.14. Calcium was 7.7. On 02/08/2023, the patient became more short of breath. He was on 3 L of oxygen by nasal cannula. He was placed on a BiPAP at a pressure of 12/5 with an FiO2 of 35%. The chest x-ray was also done that showed a right-sided pleural effusion and some fluid around the fissure and the right lung base. The patient's chest x-ray showed increasing right-sided pleural effusion and CHF findings. There is also a pacemaker device over the left anterior chest area. There is increased pulmonary vessel markings bilaterally. The patient was given diuretics and the patient is currently on Lasix 40 mg IV every 12 hours. He has made excellent urine output. The patient has produced approximately 1.6 L of fluid balance has been negative over the past 24 hours. The enzymes at 36 with a creatinine of 1.1 and a sodium level is at 135. No vesicles of 12.8 with a hemoglobin of 8.8 and a platelet count of 275. After being stabilized on BiPAP, the patient was transitioned back on oxygen at 3 L. He seems to much more comfortable this point in time. He is known to have itchy fibrillation and the patient is currently on anticoagulation with Eliquis 5 mg by mouth twice a day. The patient is also metoprolol 100 mg by mouth twice a day and amiodarone 200 mg by mouth daily. He is on updrafts with DuoNeb nebulized treatments [id number]. The patient remains on Zaroxolyn 5 mg by mouth daily, Aldactone 25 mg by mouth daily, Levemir insulin for blood sugar control 10 units daily and a slight scale coverage with insulin. On the 02/09/2023, the patient is being seen for a follow-up. The patient continues to be on and off on a BiPAP and this morning he is on a BiPAP at a pressure of 12/5 weren't FiO2 of 35%. He continues to have edema lower extrem ities bilaterally. Is still taking Lasix 40 mg IV every 12 hours. Renal function continues to fluctuate. On today's evaluation, the sodium level is at 136, BUN is at 42 with a creatinine of 1.4. Potassium levels at 3.5. While off the BiPAP, the patient is on 3 L with a pulse ox of 99%. Hemodynamically stable.patient is known to have chronic A. fib and the patient is currently on anticoagulation with Eliquis 5 mg by mouth twice a day. He remains on metoprolol 100 mg twice a day. He is also on amiodarone 200 mg by mouth daily. He takes Zaroxolyn 5 mg by mouth daily and Aldactone 25 mg by mouth daily. Objective - Vital Signs Vital signs: Vital Signs Temp 97.8 F 02/09/23 08:00 Pulse 92 02/09/23 08:54 Resp 18 02/09/23 08:00 BP 101/61 02/09/23 08:00 Pulse Ox 99 02/09/23 08:39 FiO2 35 02/09/23 04:46 Intake & Output 02/08/23 02/09/23 02/09/23 18:59 06:59 18:59 Intake Total 780 Output Total 600 1 1 Balance 180 -1 -1 Weight 109.5 kg Intake: Oral 780 Output: Urine 600 Stool 1 1 Other: Voiding Method Indwelling Catheter Indwelling Catheter Indwelling Catheter # Bowel Movements 2 - Exam No acute distress, oriented 3. The patient is currently on 3 L nasal cannula. Saturations are 99%. HEENT examination is grossly unremarkable. Mucous membranes are moist. No oral lesions. Neck supple. Full range of motion. No adenopathy thyromegaly or neck vein distention. Cardiovascular examination reveals regular rhythm rate. S1-S2 normal. No S3 or S4. No discernible murmur noted. Heart sounds are distant. Heart rate 97 bpm. Lungs reveal bibasilar crackles. Scattered rhonchi are noted. There are no wheezes. Breath sounds are equal bilaterally. Saturations are 99 %. Abdomen soft bowel sounds are heard. No masses or tenderness. Extremities are intact. No cyanosis clubbing or edema. Skin is without rash or lesion. Neurologic examination is brief but nonfocal. - Labs CBC & Chem 7: 02/07/23 21:10 02/09/23 09:45 Labs: Abnormal Lab Results - Last 24 Hours (Table) 02/08/23 02/08/23 02/09/23 Range/Units 11:23 22:34 09:45 Sodium 136 L (137-145) mmol/L Chloride 93 L (98-107) mmol/L Carbon Dioxide 31 H (22-30) mmol/L BUN 42 H (9-20) mg/dL Creatinine 1.46 H (0.66-1.25) mg/dL Glucose 148 H (74-99) mg/dL POC Glucose (mg/dL) 131 H 136 H (70-110) mg/dL Calcium 8.0 L (8.4-10.2) mg/dL Assessment and Plan Plan: Acute on chronic hypoxemic respiratory failure secondary to systolic congestive heart failure. The patient is currently on 3 L of oxygen by nasal cannula. Earlier, he became hypoxemic and was placed on BiPAP at pressures of 12/5 an FiO2 of 30%. Atrial fibrillation with varying ventricular response. Coronary disease with previous stent placement. CHF with an ejection fraction of 35% Acute on chronic kidney disease, renal function is improved Hypertension. History of ventricular tachycardia with AICD placement. Hyperlipidemia. Diabetes mellitus. Poor overall functional performance based on the above-mentioned multiple comorbidities. retirement resident. Plan patient is diuresing well. Continues to have edema lower extremities bilaterally. Continue diuretics. Monitor renal function Repeat chest x-ray in the morning No need for immediate thoracentesis at this point in time spent with the patient has been on anticoagulants. Continue diuretics and the patient is currently on Lasix 40 mg twice a day, IV,, Zaroxolyn and Aldactone Producing good urine output, Jacobs catheter in place The patient has been taken off the BiPAP and placed back on oxygen at 3 L Continue rest of the treatment., He has significant amount of edema in all 4 extremities and the patient will benefit from diuresis for the time being. His last echocardiogram is from 09/24/2022 and it shows a moderate impairment of LV function with an ejection fraction of 35-40%.
--- NOTE | 2023-02-09 11:21 | P.DS ---
Providers Date of admission: 01/29/23 12:26 Expected date of discharge: 02/09/23 Attending physician: Birgit Sky DO Consults: 01/29/23 15:21 Consult Physician Routine Consulting Provider: Aly Aguilar Consult Reason/Comments: on bipap, respiratory failure Do you want consulting provider notified?: Yes Consult Physician Routine Consulting Provider: Hakan Angela Consult Reason/Comments: AE CHF Do you want consulting provider notified?: Yes 01/30/23 11:28 Consult Physician Routine Consulting Provider: Paul Arboleda Consult Reason/Comments: C.diff Do you want consulting provider notified?: Yes Primary care physician: Ten Mccartney MD Hospital Course: Discharge Diagnosis: Acute exacerbation of systolic congestive heart failure with ejection fraction 35-40% Acute hypoxic respiratory failure RAJAN on CKD Ischemic cardiomyopathy Recurrent C. diff DM 2, insulin requiring Coronary artery disease with previous stenting Persistent atrial fibrillation Ventricular tachycardia previous ICD HTN HLD Chronic anemia Hospital Course: Patient is a 72-year-old male with systolic CHF, A. fib on Eliquis, CAD status post stents, COPD, type 2 diabetes, and hypertension who presented from rehab with complaints of shortness of breath and chest discomfort. Patient has had 2 recent hospitalizations due to C. diff colitis with sepsis. His most recent discharge was on 01/27/23. On arrival to the ER this hospital stay he was in significant respiratory distress and was placed on rescue BiPAP. He was also noted to be tachycardic with a pulse of 117. In the ER he underwent extensive evaluation. Laboratory analysis included CBC, coags, VBG, CMP, troponin, and BNP which were remarkable for white blood cell count 18.7, hemoglobin 8.9, platelets 546, INR 1.3, pH 7.3, bicarbonate VBG 20, potassium 5.6, carbon dioxide 16, BUN 55, creatinine 1.78, and BNP 25,500. Influenza A/B/RSV/COVID-19 testing was negative. Chest x-ray demonstrated fluid in the right minor fissure and blunting of the costophrenic angle. In the ER he was given a dose of Lasix IV push, Decadron 10 mg once, DuoNeb was not administered due to Covid test, and he received Zithromax 500 mg IV piggyback 1. Arrangements are made for admission. He was diagnosed with acute exacerbation of congestive heart failure was started on IV Lasix. He was seen by cardiology, pulmonary, and infectious disease. He responded well to diuresis. His son have no other acute infection than his C. diff. He was continued on treatment with deficid. He continued to improve and was eventually determined stable for discharge back to his rehab. Follow-up: Bipap with sleep. Follow-up with Dr. Angela in 2 weeks, Has completed course for C diff treatment. Patient seen and examined at bedside.He has no complaints. He is overall feeling better. Vital signs reviewed and stable. General: nontoxic, no distress, appears at stated age Cardiovascular: S1S2 reg, no murmur, positive posterior tibial pulse bilateral, Lungs: CTA bilateral, no rhonchi, no rales , no accessory muscle use Abdominal: soft, nontender to palpation, no guarding, no appreciable organomegaly Ext: no gross muscle atrophy, 2+ edema b/l lower extremities, no contractures Neuro: CN II-XI grossly intact, no focal neuro deficits Psych: Alert, oriented, appropriate affect A total of 37 minutes of time were spent preparing this complex discharge summary. Patient was discharged on 02/09/23. This dictation was prepared using [employer] voice recognition software. Brock parsons every attempt is made to correct errors during dictation some may still exist. Patient Condition at Discharge: Stable Plan - Discharge Summary New Discharge Prescriptions: New Spironolactone [Aldactone] 25 mg PO DAILY tab Amiodarone [Cordarone] 200 mg PO DAILY tab Metoprolol Tartrate [Lopressor] 100 mg PO BID tab Aspirin 81 mg PO DAILY tab Midodrine [ProAmatine] 2.5 mg PO AC-TID tab metOLazone [Zaroxolyn] 5 mg PO DAILY tab Continue Ferrous Sulfate [Iron] 325 mg PO DAILY@0800 risperiDONE [RisperDAL] 0.5 mg PO HS@2100 Sertraline HCl [Zoloft] 50 mg PO HS@2100 Apixaban [Eliquis] 5 mg PO BID@0800,1700 Clopidogrel [Plavix] 75 mg PO DAILY@0800 L.idocaine 5% Patch [Lidoderm 5% Patch] 1 patch TRANSDERM DAILY@0800 Cyclobenzaprine [Flexeril] 5 mg PO TID@0600,1400,2200 Sodium Bicarbonate Tab 650 mg PO BID@0800,1700 Potassium Chloride ER [K-Dur 20] 20 meq PO BID@0800,1700 oxyBUTYnin chloride [oxyBUTYnin chloride ER] 5 mg PO DAILY@0800 Cholecalciferol [Vitamin D3 (25 Mcg = 1000 Iu)] 50 mcg PO DAILY@0800 Lactobacillus Acidophilus [Acidophilus Probiotic] 1 cap PO DAILY@0800 Budesonide [Pulmicort] 1 mg INHALATION RT-BID@0800,1700 Dapagliflozin Propanediol [Farxiga] 10 mg PO DAILY@0800 Pantoprazole [Protonix] 40 mg PO DAILY@0600 Insulin Detemir (Levemir) [Levemir] 10 unit SQ HS@2100 Ipratropium-Albuterol Nebulize [Duoneb 0.5 mg-3 mg/3 ml Soln] 3 ml INHALATION RT-Q6H PRN PRN Reason: Shortness Of Breath allopurinoL [Zyloprim] 100 mg PO DAILY@0800 Thiamine HCl [Vitamin B-1] 100 mg PO DAILY@0800 Atorvastatin [Lipitor] 40 mg PO HS@2100 Ipratropium-Albuterol Nebulize [Duoneb 0.5 mg-3 mg/3 ml Soln] 3 ml INHALATION RT-QID@00,06,12,18 Acetaminophen Tab [Tylenol] 650 mg PO Q6HR PRN tab PRN Reason: Mild Pain Or Fever > 100.5 INSULIN ASPART (NovoLOG) [NovoLOG (formulary)] See Protocol SQ ACHS@07,11,1630,2130 Glucerna Shake 237 ml PO TID@0800,1200,1700 Multivit-Min/FA/Lycopen/Lutein [Centrum Silver Tablet] 1 tab PO DAILY@0800 Changed Furosemide [Lasix] 40 mg PO BID #0 Discontinued Magnesium Hydroxide [Milk of Magnesia Concentrate] 7,200 mg PO Q48H PRN PRN Reason: Constipation bisacodyL [Dulcolax] 10 mg RECTAL DAILY PRN PRN Reason: Constipation Na Phos,M-B/Na Phos,Di-Ba [Fleet Adult] 133 ml RECTAL DAILY PRN PRN Reason: Constipation Midodrine [ProAmatine] 10 mg PO AC-TID tab Cholestyramine (with Sugar) [Questran Packet] 4 gm PO BID@1100,1800 PRN packet PRN Reason: Diarrhea Amiodarone [Cordarone] 400 mg PO DAILY tab Fidaxomicin [Dificid] 200 mg PO BID 7 Days tab Metoprolol Tartrate [Lopressor] 25 mg PO TID@0600,1400,2200 tab Discharge Medication List Ferrous Sulfate [Iron] 325 mg PO DAILY@0810/21/20 [History] Sertraline HCl [Zoloft] 50 mg PO HS@209910/21/20 [History] allopurinoL [Zyloprim] 100 mg PO DAILY@79910/21/20 [History] risperiDONE [RisperDAL] 0.5 mg PO HS@209910/21/20 [History] Apixaban [Eliquis] 5 mg PO BID@0800,1700 05/09/21 [History] Thiamine HCl [Vitamin B-1] 100 mg PO DAILY@79905/09/21 [History] Atorvastatin [Lipitor] 40 mg PO HS@209910/16/22 [History] Clopidogrel [Plavix] 75 mg PO DAILY@79910/16/22 [History] L.idocaine 5% Patch [Lidoderm 5% Patch] 1 patch TRANSDERM DAILY@79910/17/22 [History] Cholecalciferol [Vitamin D3 (25 Mcg = 1000 Iu)] 50 mcg PO DAILY@0812/14/22 [History] Cyclobenzaprine [Flexeril] 5 mg PO TID@0600,1400,2200 12/14/22 [History] Ipratropium-Albuterol Nebulize [Duoneb 0.5 mg-3 mg/3 ml Soln] 3 ml INHALATION RT-QID@00,06,12,18 12/14/22 [History] Potassium Chloride ER [K-Dur 20] 20 meq PO BID@0800,1700 12/14/22 [History] Sodium Bicarbonate Tab 650 mg PO BID@0800,1700 12/14/22 [History] oxyBUTYnin chloride [oxyBUTYnin chloride ER] 5 mg PO DAILY@0800 12/14/22 [History] Budesonide [Pulmicort] 1 mg INHALATION RT-BID@0800,1700 12/27/22 [History] Dapagliflozin Propanediol [Farxiga] 10 mg PO DAILY@0800 12/27/22 [History] Lactobacillus Acidophilus [Acidophilus Probiotic] 1 cap PO DAILY@0800 12/27/22 [History] Pantoprazole [Protonix] 40 mg PO DAILY@0600 12/27/22 [History] Acetaminophen Tab [Tylenol] 650 mg PO Q6HR PRN tab 01/06/23 [Rx] Glucerna Shake 237 ml PO TID@0800,1200,1700 01/21/23 [History] INSULIN ASPART (NovoLOG) [NovoLOG (formulary)] See Protocol SQ ACHS@07,11,1630,2130 01/21/23 [History] Insulin Detemir (Levemir) [Levemir] 10 unit SQ HS@2100 01/21/23 [History] Ipratropium-Albuterol Nebulize [Duoneb 0.5 mg-3 mg/3 ml Soln] 3 ml INHALATION RT-Q6H PRN 01/21/23 [History] Multivit-Min/FA/Lycopen/Lutein [Centrum Silver Tablet] 1 tab PO DAILY@0800 01/21/23 [History] Amiodarone [Cordarone] 200 mg PO DAILY tab 02/09/23 [Rx] Aspirin 81 mg PO DAILY tab 02/09/23 [Rx] Furosemide [Lasix] 40 mg PO BID #0 02/09/23 [Rx] Metoprolol Tartrate [Lopressor] 100 mg PO BID tab 02/09/23 [Rx] Midodrine [ProAmatine] 2.5 mg PO AC-TID tab 02/09/23 [Rx] Spironolactone [Aldactone] 25 mg PO DAILY tab 02/09/23 [Rx] metOLazone [Zaroxolyn] 5 mg PO DAILY tab 02/09/23 [Rx] Follow up Appointment(s)/Referral(s): Umesh Alvarez DO [STAFF PHYSICIAN] - 1-2 days Dora Allan MD [STAFF PHYSICIAN] - 1 Week Hakan Angela MD [STAFF PHYSICIAN] - 1 Week Activity/Diet/Wound Care/Special Instructions: Activity: As tolerated, fall precautions Diet: Carb consistent, 2 gram sodium diet Special Instructions: Daily weights Call Dr. Skaf if he gains more than 3 pounds in 1 day or 5 pounds in 3 days Repeat BMP in 3 days DX: RAJAN Must wear BiPap when sleeping Discharge Disposition: TRANSFER TO SNF/ECF
[2023-02-09 11:44] LABS: Glucose,Whole Blood 160 mg/dL (70-110)
[2023-02-09] MEDS: INSULIN DETEMIR (LEVEMIR) 100 UNIT/ML SYR SQ SCH (12:00)
--- NOTE | 2023-02-09 12:38 | P.PN ---
Subjective Progress Note Date: 02/09/23 Progress note: Patient's blood pressure is tolerating guideline directed medical therapy for congestive heart failure. Patient is tolerating diuretic therapy. He is tolerating lower dose of midodrine and increased dose of metoprolol. He still is volume overloaded. Primary team wanted to start metolazone. 02/08 Patient is seen today in follow-up. He states that he is breathing better on BiPAP. He continues to have significant lower extremity edema. Patient is noted to have significant change on his chest x-ray from previous and this discussed with Dr. Antonio. Blood pressure 114/66, heart rate 95, pulse ox 97% on 3 L nasal cannula. 02/09 She has been maintained on IV Lasix 40 mg twice daily and metolazone as well as Aldactone. Patient states that his breathing is stable. He denies having any chest pain. He has mild lower extremity edema. Case was discussed with pulmonary medicine no plan for thoracentesis. Patient has been afebrile, heart rate in 80s and 90s, blood pressure 101/61, pulse ox 99% on 3 L nasal cannula. Repeat blood work reveals sodium 136, potassium 3.5, BUN 42 creatinine 1.46.. PHYSICAL EXAM: VITAL SIGNS: Reviewed. GENERAL: Well-developed in no acute distress. NECK: Supple. No JVD or thyromegaly LUNGS: Respirations even and unlabored. Lungs diminished on the right. HEART: Irregular rate and rhythm. S1 and S2 heard. EXTREMITIES: Normal range of motion. No clubbing or cyanosis. Peripheral pulses intact. 1-2+ bilateral lower extremity edema ASSESSMENT: Acute on chronic heart failure with reduced ejection fraction Recent admission secondary to sepsis and recurrent C. diff Persistent atrial fibrillation with controlled ventricular rate Ischemic cardiomyopathy, EF 35-40% Coronary artery disease with previous stenting Ventricular tachycardia with previous AICD implantation Hypertension Hyperlipidemia Diabetes Chronic anemia PLAN: Continue amiodarone to 200 mg daily Continue Eliquis 5 mg, aspirin 81 mg Continue atorvastatin Continue Lasix 40 mg IV twice a day and metolazone 2.5 mg. Give 30 minutes before Lasix. Umesh Aldactone 25 mg Continue metoprolol 100 mg twice a day Reduce midodrine to 2.5 mg before meals 3 times a day. If blood pressure stable, use midodrine only as needed Daily weights, accurate I&O, and monitoring of kidney function Nurse practitioner note has been reviewed, I agree with the documented findings and plan of care. Patient was seen and examined. Objective - Vital Signs Vital signs: Vital Signs Temp 97.9 F 02/09/23 04:00 Pulse 92 02/09/23 08:54 Resp 19 02/09/23 04:00 BP 103/64 02/09/23 04:00 Pulse Ox 99 02/09/23 08:39 FiO2 35 02/09/23 04:46 Intake & Output 02/08/23 02/09/23 02/09/23 18:59 06:59 18:59 Intake Total 780 Output Total 600 1 Balance 180 -1 Weight 109.5 kg Intake: Oral 780 Output: Urine 600 Stool 1 Other: Voiding Method Indwelling Catheter Indwelling Catheter # Bowel Movements 2 - Labs CBC & Chem 7: 02/07/23 21:10 02/09/23 09:45 Labs: Abnormal Lab Results - Last 24 Hours (Table) 02/08/23 02/08/23 Range/Units 11:23 22:34 POC Glucose (mg/dL) 131 H 136 H (70-110) mg/dL
[2023-02-09 13:03] VITALS: BMI 32.7
--- NOTE | 2023-02-09 14:47 | P.PN ---
Subjective Progress Note Date: 02/08/23 Principal diagnosis: Reason for follow up C. diff colitis Patient is a 72-year-old male with a past medical history significant for atrial fibrillation coronary artery disease heart failure diabetes mellitus hypertension hyperlipidemia patient recently did have multiple admission to the hospital initially he did have bacteremia subsequently admitted for C. difficile colitis, presenting back to hospital with worsening shortness of breath and swelling concerning for possible fluid overload. On today's evaluation that is 02/08/2023 the patient remains to be afebrile, the patient is breathing comfortably on the lateral nasal cannula supplemental oxygen, the patient denies having any chest pain denies any cough or sputum production, patient denies any abdominal pain no nausea vomiting and did have improvement in diarrhea per the nursing staff Patient did have white count of 12.8 and a creatinine of 1.17 as of 02/07/2023, blood cultures so far negative urine culture negative Objective - Vital Signs Vital signs: Vital Signs Temp 97.6 F 02/08/23 16:33 Pulse 90 02/08/23 16:33 Resp 20 02/08/23 16:33 BP 107/60 02/08/23 16:33 Pulse Ox 100 02/08/23 16:33 FiO2 35 02/08/23 16:33 Intake & Output 02/08/23 02/08/23 02/09/23 06:59 18:59 06:59 Intake Total 230 780 Output Total 1 600 Balance 229 180 Weight 109.5 kg Intake: Oral 230 780 Output: Urine 600 Stool 1 Other: Voiding Method Indwelling Catheter Indwelling Catheter - Exam GENERAL DESCRIPTION: An elderly male lying in bed in no distress RESPIRATORY SYSTEM: Unlabored breathing , decreased breath sound at the base HEART: S1 S2 regular rate and rhythm , ABDOMEN: Soft , no tenderness EXTREMITIES: Diffuse swelling to bilateral lower extremity - Labs CBC & Chem 7: 02/07/23 21:10 02/09/23 09:45 Labs: Abnormal Lab Results - Last 24 Hours (Table) 02/07/23 02/07/23 02/07/23 Range/Units 21:10 21:10 21:17 WBC 12.8 H (3.8-10.6) k/uL RBC 2.58 L (4.30-5.90) m/uL Hgb 8.8 L (13.0-17.5) gm/dL Hct 28.4 L (39.0-53.0) % MCV 110.1 H (80.0-100.0) fL MCHC 30.9 L (31.0-37.0) g/dL RDW 22.7 H (11.5-15.5) % Macrocytosis Marked A Sodium 135 L (137-145) mmol/L Chloride 97 L (98-107) mmol/L BUN 36 H (9-20) mg/dL Glucose 134 H (74-99) mg/dL POC Glucose (mg/dL) 147 H (70-110) mg/dL Calcium 8.0 L (8.4-10.2) mg/dL 02/08/23 Range/Units 11:23 WBC (3.8-10.6) k/uL RBC (4.30-5.90) m/uL Hgb (13.0-17.5) gm/dL Hct (39.0-53.0) % MCV (80.0-100.0) fL MCHC (31.0-37.0) g/dL RDW (11.5-15.5) % Macrocytosis Sodium (137-145) mmol/L Chloride (98-107) mmol/L BUN (9-20) mg/dL Glucose (74-99) mg/dL POC Glucose (mg/dL) 131 H (70-110) mg/dL Calcium (8.4-10.2) mg/dL Assessment and Plan (1) C. difficile colitis Current Visit: No Status: Acute Code(s): A04.72 - ENTEROCOLITIS D/T CLOSTRI DIUM DIFFICILE, NOT SPCF RECUR SNOMED Code(s): 168082382 Plan: 1patient presented to hospital with increasing shortness that more likely r elated to underlying fluid overload as the patient did have significant swelling and evidence of effusion on chest x-ray clinically not behaving as pneumonia patient did not have any fever 2patient remains to be afebrile, the patient white count mildly elevated 3-patient will be continued on deficid to finish a ten-day course of therapy Dictation was produced using [employer] dictation software. please excuse any grammatical, word or spelling errors. Time with Patient: Less than 30
--- NOTE | 2023-02-09 14:50 | P.PN ---
Subjective Progress Note Date: 02/09/23 Principal diagnosis: Reason for follow up C. diff colitis Patient is a 72-year-old male with a past medical history significant for atrial fibrillation coronary artery disease heart failure diabetes mellitus hypertension hyperlipidemia patient recently did have multiple admission to the hospital initially he did have bacteremia subsequently admitted for C. difficile colitis, presenting back to hospital with worsening shortness of breath and swelling concerning for possible fluid overload. On today's evaluation that is 02/09/2023, the patient continues to be afebrile and is breathing comfortably on 3 L nasal cannula oxygen, and patient denies any shortness of breath, chest pain, no cough or sputum production, patient denies nausea/vomiting and no abdominal pain, no loose stools reported by the nursing staff. Patient did have white count of 12.8 as of 02/07/2023 and a creatinine of 1.46, blood cultures so far negative urine culture negative Objective - Vital Signs Vital signs: Vital Signs Temp 97.8 F 02/09/23 08:00 Pulse 92 02/09/23 11:53 Resp 21 02/09/23 11:53 BP 101/61 02/09/23 08:00 Pulse Ox 99 02/09/23 08:39 FiO2 35 02/09/23 11:41 Intake & Output 02/08/23 02/09/23 02/09/23 18:59 06:59 18:59 Intake Total 780 240 Output Total 600 1 826 Balance 180 -1 -586 Weight 109.5 kg Intake: Oral 780 240 Output: Urine 600 825 Stool 1 1 Other: Voiding Method Indwelling Catheter Indwelling Catheter Indwelling Catheter # Bowel Movements 2 - Exam GENERAL DESCRIPTION: An elderly male lying in bed in no distress RESPIRATORY SYSTEM: Unlabored breathing , decreased breath sound at the base HEART: S1 S2 regular rate and rhythm , ABDOMEN: Soft , no tenderness EXTREMITIES: Diffuse swelling to bilateral lower extremity - Labs CBC & Chem 7: 02/07/23 21:10 02/09/23 09:45 Labs: Abnormal Lab Results - Last 24 Hours (Table) 02/08/23 02/09/23 02/09/23 Range/Units 22:34 09:45 11:42 Sodium 136 L (137-145) mmol/L Chloride 93 L (98-107) mmol/L Carbon Dioxide 31 H (22-30) mmol/L BUN 42 H (9-20) mg/dL Creatinine 1.46 H (0.66-1.25) mg/dL Glucose 148 H (74-99) mg/dL POC Glucose (mg/dL) 136 H 160 H (70-110) mg/dL Calcium 8.0 L (8.4-10.2) mg/dL Assessment and Plan (1) C. difficile colitis Current Visit: No Status: Acute Code(s): A04.72 - ENTEROCOLITIS D/T CLOSTRIDIUM DIFFICILE, NOT SPCF RECUR SNOMED Code(s): 422304295 Plan: 1patient presented to hospital with increasing shortness that more likely related to underlying fluid overload as the patient did have significant swelling and evidence of effusion on chest x-ray clinically not behaving as pneumonia patient did not have any fever 2patient remains to be afebrile, and seemed to have overall improvement in his diarrhea has received a 10 day course of deficit or should be enough advised to increase his probiotic and yogurt intake on discharge Dictation was produced using [employer] dictation software. please excuse any grammatical, word or spelling errors. Time with Patient: Less than 30
[2023-02-09 16:15] LABS: Glucose,Whole Blood 177 mg/dL (70-110)
[2023-02-09 18:43] VITALS: BP 133/86; PULSE 87; RESP 20; TEMP 98
== END 2023-02-09 19:10 | DRG 291 ==
LOC: EC 06:39 → 3SCARD 12:26
PROVIDERS: ADMIT Internal Medicine; ATTEND Internal Medicine
PROC: 5A09357 Assistance with Respiratory Ventilation, Less than 24 Consecutive Hours, Continuous Positive Airway Pressure (ICD-10-PCS; principal; 2023-01-29)
PROC: 05HY33Z Insertion of Infusion Device into Upper Vein, Percutaneous Approach (ICD-10-PCS; 2023-02-08 13:10)
DX: I13.0 Hypertensive heart and chronic kidney disease with heart failure and stage 1 through stage 4 chronic kidney disease, or unspecified chronic kidney disease (principal); I50.23 Acute on chronic systolic (congestive) heart failure; J96.21 Acute and chronic respiratory failure with hypoxia; N17.9 Acute kidney failure, unspecified; E87.20 Acidosis, unspecified; I48.21 Permanent atrial fibrillation; A04.71 Enterocolitis due to Clostridium difficile, recurrent; D63.1 Anemia in chronic kidney disease; E11.22 Type 2 diabetes mellitus with diabetic chronic kidney disease; N18.32 Chronic kidney disease, stage 3b; J44.9 Chronic obstructive pulmonary disease, unspecified; Z79.4 Long term (current) use of insulin; Z28.310 Unvaccinated for COVID-19; I25.5 Ischemic cardiomyopathy; E78.5 Hyperlipidemia, unspecified; E87.5 Hyperkalemia; F32.A Depression, unspecified; F41.9 Anxiety disorder, unspecified; I25.10 Atherosclerotic heart disease of native coronary artery without angina pectoris; Z79.01 Long term (current) use of anticoagulants; Z79.51 Long term (current) use of inhaled steroids; Z79.02 Long term (current) use of antithrombotics/antiplatelets; Z79.84 Long term (current) use of oral hypoglycemic drugs; Z79.899 Other long term (current) drug therapy; Z95.810 Presence of automatic (implantable) cardiac defibrillator; Z95.5 Presence of coronary angioplasty implant and graft; Z87.891 Personal history of nicotine dependence; Z87.440 Personal history of urinary (tract) infections; Z86.16 Personal history of COVID-19; Z86.14 Personal history of Methicillin resistant Staphylococcus aureus infection
CPT/HCPCS: 36410; 36415; 71045; 76937; 80048; 80053; 81001; 82803; 83605; 83735; 83880; 84100; 84484; 85025; 85027; 85610; 85730; 87040; 87086; 87636; 93005; 94640; 94660; 94760; 96365; 96367; 96375; 99285

== ENCOUNTER 2023-02-12 18:07 | Observation (INO) | payer OTHER ==
[2023-02-12 18:31] VITALS: TEMP 97.8
--- NOTE | 2023-02-12 18:36 | ED ---
General Adult HPI - General Chief complaint: Recheck/Abnormal Lab/Rx Stated complaint: Lightheadedness Time Seen by Provider: 02/12/23 18:09 Source: patient, RN notes reviewed Mode of arrival: EMS Limitations: no limitations - History of Present Illness Initial comments: Patient is a pleasant 72-year-old male presenting to the emergency department with concerns for lightheadedness. Patient states symptoms are mild and he does get this sometimes. Patient comes from nursing facility. There was concern regarding patient being anemic. Patient reportedly has a history of anemia. No reported bleeding. Patient denies any bleeding. - Related Data Home Medications Medication Instructions Recorded Confirmed Ferrous Sulfate [Iron] 325 mg PO DAILY@0800 10/21/20 02/12/23 Sertraline HCl [Zoloft] 50 mg PO HS 10/21/20 02/12/23 allopurinoL [Zyloprim] 100 mg PO DAILY@0800 10/21/20 02/12/23 risperiDONE [RisperDAL] 0.5 mg PO HS 10/21/20 02/12/23 Apixaban [Eliquis] 5 mg PO BID@0800,1700 05/09/21 02/12/23 Thiamine HCl [Vitamin B-1] 100 mg PO DAILY@0800 05/09/21 02/12/23 Atorvastatin [Lipitor] 40 mg PO HS 10/16/22 02/12/23 Clopidogrel [Plavix] 75 mg PO DAILY@0800 10/16/22 02/12/23 Lidocaine 5% Patch [Lidoderm 5% 1 patch TRANSDERM DAILY@0800 10/17/22 02/12/23 Patch] Cholecalciferol [Vitamin D3 (25 50 mcg PO DAILY@0800 12/14/22 02/12/23 Mcg = 1000 Iu)] Cyclobenzaprine [Flexeril] 5 mg PO TID@0600,1400,2200 12/14/22 02/12/23 Ipratropium-Albuterol Nebulize 3 ml INHALATION RT-Q6H 12/14/22 02/12/23 [Duoneb 0.5 mg-3 mg/3 ml Soln] Potassium Chloride ER [K-Dur 20] 20 meq PO BID@0800,1700 12/14/22 02/12/23 Sodium Bicarbonate Tab 650 mg PO BID@0800,1700 12/14/22 02/12/23 oxyBUTYnin chloride [oxyBUTYnin 5 mg PO DAILY@0800 12/14/22 02/12/23 chloride ER] Budesonide [Pulmicort] 1 mg INHALATION RT-BID@0800,1400 12/27/22 02/12/23 Dapagliflozin Propanediol [Farxiga] 10 mg PO DAILY@0800 12/27/22 02/12/23 Lactobacillus Acidophilus 1 cap PO DAILY@0800 12/27/22 02/12/23 [Acidophilus Probiotic] Pantoprazole [Protonix] 40 mg PO DAILY@0600 12/27/22 02/12/23 Glucerna Shake 237 ml PO TID@0800,1200,1700 01/21/23 02/12/23 INSULIN ASPART (NovoLOG) [NovoLOG See Protocol SQ ACHS 01/21/23 02/12/23 (formulary)] Insulin Detemir (Levemir) [Levemir] 10 unit SQ HS 01/21/23 02/12/23 Ipratropium-Albuterol Nebulize 3 ml INHALATION RT-Q6H PRN 01/21/23 02/12/23 [Duoneb 0.5 mg-3 mg/3 ml Soln] Multivit-Min/FA/Lycopen/Lutein 1 tab PO DAILY@0800 01/21/23 02/12/23 [Centrum Silver Tablet] Acetaminophen Tab [Tylenol] 650 mg PO Q6HR PRN 02/12/23 02/12/23 Amiodarone [Cordarone] 200 mg PO DAILY@0800 02/12/23 02/12/23 Aspirin 81 mg PO DAILY@0800 02/12/23 02/12/23 Furosemide [Lasix] 40 mg PO BID@0600,1400 02/12/23 02/12/23 Loperamide [Imodium] 2 mg PO QID PRN 02/12/23 02/12/23 Magnesium Hydroxide [Milk of 7,200 mg PO DIRECTED PRN 02/12/23 02/12/23 Magnesia Concentrate] Metoprolol Tartrate [Lopressor] 100 mg PO BID@0800,1700 02/12/23 02/12/23 Midodrine HCl [ProAmantine] 2.5 mg PO TID@0700,1100,1630 02/12/23 02/12/23 Na Phos,M-B/Na Phos,Di-Ba [Fleet 133 ml RECTAL DAILY PRN 02/12/23 02/12/23 Adult] Spironolactone [Aldactone] 25 mg PO DAILY@0600 02/12/23 02/12/23 bisacodyL [Dulcolax] 10 mg RECTAL DAILY PRN 02/12/23 02/12/23 metOLazone [Zaroxolyn] 5 mg PO DAILY@0800 02/12/23 02/12/23 Allergies Allergy/AdvReac Type Severity Reaction Status Date / Time No Known Allergies Allergy Verified 02/12/23 19:30 Review of Systems ROS Statement: Those systems with pertinent positive or pertinent negative responses have been documented in the HPI. ROS Other: All systems not noted in ROS Statement are negative. Constitutional: Denies: fever Eyes: Denies: eye pain ENT: Denies: ear pain Respiratory: Denies: cough, dyspnea Cardiovascular: Denies: chest pain Endocrine: Denies: fatigue Gastrointestinal: Denies: hematemesis, melena, hematochezia Genitourinary: Denies: hematuria Past Medical History Past Medical History: Atrial Fibrillation, Coronary Artery Disease (CAD), Heart Failure, Diabetes Mellitus, Hyperlipidemia, Hypertension Additional Past Medical History / Comment(s): Gout. Hx UTI, CKD, Hx COVID, C diff colitis History of Any Multi-Drug Resistant Organisms: MRSA Date of last positivie culture/infection: 01/21/23 MDRO Source:: Left Foot Past Surgical History: Heart Catheterization With Stent, Orthopedic Surgery, Pacemaker Additional Past Surgical History / Comment(s): 2 STENTS DEC 2020, left hip surgery X2. Past Anesthesia/Blood Transfusion Reactions: No Reported Reaction, Postoperative Nausea & Vomiting (PONV) Additional Past Anesthesia/Blood Transfusion Reaction / Comment(s): UNKNOWN FAMILY HX. Date of Last Stent Placement:: DEC 2020 Type of Cardiac Device: Unknown Device Placement Date:: Unknown Past Psychological History: Anxiety, Depression Smoking Status: Former smoker Past Alcohol Use History: None Reported Past Drug Use History: None Reported - Past Family History Mother Family Medical History: Cancer Brother(s) Family Medical History: Cancer Additional Family Medical History / Comment(s): Lung cancer. Father History Unknown: Yes Family Medical History: Hyperlipidemia General Exam Limitations: no limitations General appearance: alert, in no apparent distress Head exam: Present: normocephalic Eye exam: Present: normal appearance Neck exam: Present: normal inspection Respiratory exam: Present: normal lung sounds bilaterally Cardiovascular Exam: Present: regular rate, normal rhythm GI/Abdominal exam: Present: soft. Absent: tenderness Rectal exam: Present: normal inspection. Absent: bloody stool Extremities exam: Present: normal inspection Neurological exam: Present: alert Psychiatric exam: Present: normal affect, normal mood Skin exam: Present: normal color Course Vital Signs 02/12/23 18:10 Temperature 97.8 F Pulse Rate 101 H Respiratory 22 Rate Blood Pressure 121/85 O2 Sat by Pulse 100 Oximetry EKG Findings - EKG Results: EKG: interpreted by [facility] (Left axis. Right bundle branch block. Inferior Q waves. Nonspecific T waves.) EKG shows: atrial fibrillation Medical Decision Making - Medical Decision Making Was pt. sent in by a medical professional or institution (, PA, AUTOMOTIVE SALES SPECIALIST, urgent care, hospital, or long-term...) When possible be specific @ -Patient was sent in from nursing facility Did you speak to anyone other than the patient for history (EMS, parent, family, police, friend...)? What history was obtained from this source @ -No Did you review nursing and triage notes (agree or disagree)? Why? @ -I reviewed and agree with nursing and triage notes Were old charts reviewed (outside hosp., previous admission, EMS record, old EKG, old radiological studies, urgent care reports/EKG's, long-term records)? Report findings @ -Previous lab results reviewed Differential Diagnosis (chest pain, altered mental status, abdominal pain women, abdominal pain men, vaginal bleeding, weakness, fever, dyspnea, syncope, headache, dizziness, GI bleed, back pain, seizure, CVA, palpatations, mental health, musculoskeletal)? @ -Differential GI Bleed: Esophageal varices, aortoenteric fistula, Ela-Pemberton, gastritis, peptic ulcer disease, diverticulosis, inflammatory bowel disease, hemorrhoids, fissure, colitis, malignancy, Meckels diverticulum, this is not meant to be an all- inclusive list. EKG interpreted by me (3pts min.). @ -As above X-rays interpreted by me (1pt min.). @ -None done CT interpreted by me (1pt min.). @ -None done U/S interpreted by me (1pt. min.). @ -None done What testing was considered but not performed or refused? (CT, X-rays, U/S, la bs)? Why? @ -None What meds were considered but not given or refused? Why? @ -None Did you discuss the management of the patient with other professionals (professionals i.e. , PA, AUTOMOTIVE SALES SPECIALIST, lab, RT, psych nurse, social science research assistant, cotton presser, teacher, ground nuclear weapons assembly officer, vocational case manager)? Give summary @ -Case was discussed with Dr. britton and decision was made to recheck hemoglobin. Mild decrease in hemoglobin. Case again discussed with Dr. britton patient will be held for observation. Case also discussed with Dr. Mann Was smoking cessation discussed for >3mins.? @ -No Was critical care preformed (if so, how long)? @ -No Were there social determinants of health that impacted care today? How? (Homelessness, low income, unemployed, alcoholism, drug addiction, transportation, low edu. Level, literacy, decrease access to med. care, fpc, rehab)? @ -No Was there de-escalation of care discussed even if they declined (Discuss DNR or withdrawal of care, Hospice)? DNR status @ -No What co-morbidities impacted this encounter? (DM, HTN, Smoking, COPD, CAD, Cancer, CVA, ARF, Chemo, Hep., AIDS, mental health diagnosis, sleep apnea, morbid obesity)? @ -None Was patient admitted / discharged? Hospital course, mention meds given and route, prescriptions, significant lab abnormalities, going to OR and other pe rtinent info. @ -Patient presents with anemia, not as severe as outpatient. Patient does have chronic anemia. Patient will be held for observation and repeat hemoglobin . Admission orders written. Undiagnosed new problem with uncertain prognosis? @ -No Drug Therapy requiring intensive monitoring for toxicity (Heparin, Nitro, Insulin, Cardizem)? @ -No Were any procedures done? @ -No Diagnosis/symptom? @ -Anemia Acute, or Chronic, or Acute on Chronic? @ -Acute on chronic Uncomplicated (without systemic symptoms) or Complicated (systemic symptoms)? @ -default Side effects of treatment? @ -No Exacerbation, Progression, or Severe Exacerbation? @ -No Poses a threat to life or bodily function? How? (Chest pain, [place], [place], pneumonia, PE, COPD, DKA, ARF, appy, cholecystitis, CVA, Diverticulitis, Homicidal, Suicidal, threat to staff... and all critical care pts) @ -No - Lab Data Result diagrams: 02/12/23 20:10 02/12/23 19:19 Lab Results 02/12/23 02/12/23 02/12/23 Range/Units 19:19 19:19 19:19 WBC 8.4 (3.8-10.6) k/uL RBC 2.35 L (4.30-5.90) m/uL Hgb 7.9 L (13.0-17.5) gm/dL Hct 25.8 L (39.0-53.0) % MCV 109.6 H (80.0-100.0) fL MCH 33.8 (25.0-35.0) pg MCHC 30.8 L (31.0-37.0) g/dL RDW 22.5 H (11.5-15.5) % Plt Count 323 (150-450) k/uL MPV 7.6 Neutrophils % 82 % Lymphocytes % 6 % Monocytes % 8 % Eosinophils % 2 % Basophils % 0 % Neutrophils # 6.8 (1.3-7.7) k/uL Lymphocytes # 0.5 L (1.0-4.8) k/uL Monocytes # 0.7 (0-1.0) k/uL Eosinophils # 0.2 (0-0.7) k/uL Basophils # 0.0 (0-0.2) k/uL Manual Slide Review Performed Polychromasia Present Hypochromasia Marked Poikilocytosis Marked Anisocytosis Moderate Macrocytosis Marked A PT 13.2 H (10.0-12.5) sec INR 1.3 H (<1.2) APTT 36.5 H (22.0-30.0) sec Sodium (137-145) mmol/L Potassium (3.5-5.1) mmol/L Chloride (98-107) mmol/L Carbon Dioxide (22-30) mmol/L Anion Gap mmol/L BUN (9-20) mg/dL Creatinine (0.66-1.25) mg/dL Est GFR (CKD-EPI)AfAm (>60 ml/min/1.73 sqM) Est GFR (CKD-EPI)NonAf (>60 ml/min/1.73 sqM) Glucose (74-99) mg/dL Calcium (8.4-10.2) mg/dL Magnesium (1.6-2.3) mg/dL Total Bilirubin (0.2-1.3) mg/dL AST (17-59) U/L ALT (4-49) U/L Alkaline Phosphatase (38-126) U/L Total Protein (6.3-8.2) g/dL Albumin (3.5-5.0) g/dL Stool Occult Blood Positive (Negative) Blood Type Blood Type Recheck Bld Type Recheck Status Antibody Screen Spec Expiration Date 02/12/23 02/12/23 02/12/23 Range/Units 19:19 19:19 20:10 WBC 7.7 (3.8-10.6) k/uL RBC 2.22 L (4.30-5.90) m/uL Hgb 7.5 L (13.0-17.5) gm/dL Hct 24.3 L (39.0-53.0) % MCV 109.5 H (80.0-100.0) fL MCH 34.0 (25.0-35.0) pg MCHC 31.1 (31.0-37.0) g/dL RDW 22.4 H (11.5-15.5) % Plt Count 288 (150-450) k/uL MPV 7.5 Neutrophils % % Lymphocytes % % Monocytes % % Eosinophils % % Basophils % % Neutrophils # (1.3-7.7) k/uL Lymphocytes # (1.0-4.8) k/uL Monocytes # (0-1.0) k/uL Eosinophils # (0-0.7) k/uL Basophils # (0-0.2) k/uL Manual Slide Review Polychromasia Hypochromasia Marked Poikilocytosis Marked Anisocytosis Moderate Macrocytosis Marked A PT (10.0-12.5) sec INR (<1.2) APTT (22.0-30.0) sec Sodium 139 (137-145) mmol/L Potassium 3.0 L (3.5-5.1) mmol/L Chloride 94 L (98-107) mmol/L Carbon Dioxide 32 H (22-30) mmol/L Anion Gap 13 mmol/L BUN 48 H (9-20) mg/dL Creatinine 1.68 H (0.66-1.25) mg/dL Est GFR (CKD-EPI)AfAm 46 (>60 ml/min/1.73 sqM) Est GFR (CKD-EPI)NonAf 40 (>60 ml/min/1.73 sqM) Glucose 107 H (74-99) mg/dL Calcium 8.0 L (8.4-10.2) mg/dL Magnesium 1.7 (1.6-2.3) mg/dL Total Bilirubin 0.5 (0.2-1.3) mg/dL AST 24 (17-59) U/L ALT 21 (4-49) U/L Alkaline Phosphatase 108 (38-126) U/L Total Protein 7.7 (6.3-8.2) g/dL Albumin 2.9 L (3.5-5.0) g/dL Stool Occult Blood (Negative) Blood Type A Negative Blood Type Recheck A Neg Bld Type Recheck Status No Antibody Screen NEGATIVE Spec Expiration Date 02/15/20232318 Disposition Clinical Impression: Anemia Disposition: ADMITTED IP TO THIS HOSP Is patient prescribed a controlled substance at d/c from ED?: No Referrals: Ten Mccartney MD [Primary Care Provider] - 1-2 days Time of Disposition: 21:13
[2023-02-12 19:30] LABS: Anisocytosis Moderate; Basophils % (A) 0 %; Eosinophils # (A) 0.2 k/uL (0-0.7); Eosinophils % (A) 2 %; HCT 25.8 % (39.0-53.0); HGB 7.9 gm/dL (13.0-17.5); Hypochromasia Marked; Lymphocytes # (A) 0.5 k/uL (1.0-4.8); Lymphocytes % (A) 6 %; MCH 33.8 pg (25.0-35.0); MCHC 30.8 g/dL (31.0-37.0); MCV 109.6 fL (80.0-100.0); Macrocytosis Marked; Mean Platelet Volume 7.6; Monocytes # (A) 0.7 k/uL (0-1.0); Monocytes % (A) 8 %; Neutrophils # (A) 6.8 k/uL (1.3-7.7); Neutrophils % (A) 82 %; Platelet Count 323 k/uL (150-450); Poikilocytosis Marked; RBC 2.35 m/uL (4.30-5.90); RDW 22.5 % (11.5-15.5); WBC 8.4 k/uL (3.8-10.6)
[2023-02-12 19:45] LABS: ALT 21 U/L (4-49); AST 24 U/L (17-59); African American GFR (CKD) 46 (>60 ml/min/1.73 sqM); Albumin 2.9 g/dL (3.5-5.0); Alkaline Phosphatase 108 U/L (38-126); Anion Gap 13 mmol/L; Blood Urea Nitrogen 48 mg/dL (9-20); Carbon Dioxide 32 mmol/L (22-30); Chloride 94 mmol/L (98-107); Glucose 107 mg/dL (74-99); Magnesium 1.7 mg/dL (1.6-2.3); Non-African American GFR(CKD) 40 (>60 ml/min/1.73 sqM); Sodium 139 mmol/L (137-145); Total Bilirubin 0.5 mg/dL (0.2-1.3); Total Protein 7.7 g/dL (6.3-8.2)
[2023-02-12 19:47] LABS: INR 1.3 (<1.2); Partial Thromboplastin Time 36.5 sec (22.0-30.0); Prothrombin Time 13.2 sec (10.0-12.5)
[2023-02-12 20:07] LABS: Polychromasia Present
[2023-02-12 20:36] LABS: Anisocytosis Moderate; HCT 24.3 % (39.0-53.0); HGB 7.5 gm/dL (13.0-17.5); Hypochromasia Marked; MCHC 31.1 g/dL (31.0-37.0); MCV 109.5 fL (80.0-100.0); Macrocytosis Marked; Mean Platelet Volume 7.5; Platelet Count 288 k/uL (150-450); Poikilocytosis Marked; RBC 2.22 m/uL (4.30-5.90); RDW 22.4 % (11.5-15.5)
[2023-02-12] MEDS ORDERED: POTASSIUM CHLORIDE ER 20 MEQ TAB.ER PO STA (20:59)
[2023-02-12] MEDS ORDERED: POTASSIUM CHLORIDE 10 MEQ in WATER FOR INJECTION 1 100ML.BAG IVPB STA (20:59)
[2023-02-12] MEDS ORDERED: NALOXONE 0.4 MG/ML 1 ML VIAL IV PRN (21:14)
[2023-02-12 21:27] LABS: WBC 7.7 k/uL (3.8-10.6)
[2023-02-12] MEDS: PANTOPRAZOLE 40 MG/10 ML VIAL IV SCH (23:11)
--- NOTE | 2023-02-13 01:10 | P.HPIM ---
History of Present Illness H&P Date: 02/12/23 Patient is a 72-year-old male with a PMH of A. fib on Eliquis, systolic CHF, CAD status post stents, type II DM, COPD, and hypertension sent in from SNF for abnormal outpatient blood work with hemoglobin 6.7. Patient was a somewhat poor historian and history thereby supplemented by the ED provider and from the chart. Patient reports noticing black tarry stools over the past several weeks but denied any bloody stools. Denied chest discomfort, shortness of breath, fever, chills, cough, nausea, vomiting, abdominal pain, diarrhea. Of note, the patient has recently been hospitalized multiple times with most recent hospitalization from 01/29-02/09 for acute CHF exacerbation. EKG in the emergency room revealed A. fib with RVR at 10 8 bpm with right bundle branch block as reviewed by me. Laboratory evaluation revealed hemoglobin 7.9 and repeat 7.5, fecal occult blood positive, MCV 100.5, potassium 3.0, BUN 48, creatinine 1.68 (previously 1.46 on 02/09). ED documentation reviewed and case discussed with ED provider. Review of systems: Pertinent positives and negatives as discussed in HPI, a complete review of systems was performed and all other systems are negative. Physical examination: Vital signs reviewed General: non toxic, no distress, appears at stated age, normal weight Derm: no unusual rashes/lesions, warm Head: atraumatic, normocephalic, symmetric Eyes: EOMI, no lid lag, anicteric sclera, pupils equal round reactive to light ENT: Nose and ears atraumatic Neck: No cervical lymphadenopathy, trachea midline, supple Mouth: no lip lesion, mucus membranes moist Cardiovascular: S1S2 reg, no murmur, positive dorsalis pedis pulse bilateral, no edema Lungs: CTA bilateral, no rhonchi, no rales, no accessory muscle use Abdominal: soft, nontender to palpation, no guarding Ext: Strength 4/5 of bilateral UE and 3/5 of bilateral LE, no gross muscle atrophy, no contractures Neuro: CN II-XI grossly intact, no gross focal neuro deficits Psych: Alert, oriented to person and place only, not fully oriented to time Assessment: Macrocytic anemia, similar to baseline with fecal occult blood testing positive Hypokalemia RAAJN on chronic kidney disease Chronic conditions: A. fib, CAD, type II DM, COPD, hypertension Imaging: EKG in the emergency room revealed A. fib with RVR at 10 8 bpm with right bundle branch block as reviewed by me Data Review: Laboratory evaluation revealed hemoglobin 7.9 and repeat 7.5, fecal occult blood positive, MCV 100.5, potassium 3.0, BUN 48, creatinine 1.68 (previously 1.46 on 02/09). Plan: Trend CBC Hold patient's home Eliquis at this time Continue ASA and hold Plavix for now Protonix IV 40 mg bid for now GEN surgery consulted Nothing by mouth for now Continue the remaining home medications Monitor BMP and hold patient's home diuretics for today Replace potassium and monitor DVT prophylaxis: Eliquis (currently held) The patient is admitted with an anticipated greater than 2 midnight stay for evaluation of anemia CODE STATUS: Full Code Discussed with: Patient Anticipated discharge place: Home Past Medical History Past Medical History: Atrial Fibrillation, Coronary Artery Disease (CAD), Heart Failure, Diabetes Mellitus, Hyperlipidemia, Hypertension Additional Past Medical History / Comment(s): Gout. Hx UTI, CKD, Hx COVID, C diff colitis History of Any Multi-Drug Resistant Organisms: MRSA Date of last positivie culture/infection: 01/21/23 MDRO Source:: Left Foot Past Surgical History: Heart Catheterization With Stent, Orthopedic Surgery, Pacemaker Additional Past Surgical History / Comment(s): 2 STENTS DEC 2020, left hip surgery X2. Past Anesthesia/Blood Transfusion Reactions: No Reported Reaction, Postoperative Nausea & Vomiting (PONV) Additional Past Anesthesia/Blood Transfusion Reaction / Comment(s): UNKNOWN FAMILY HX. Date of Last Stent Placement:: DEC 2020 Type of Cardiac Device: Unknown Device Placement Date:: Unknown Past Psychological History: Anxiety, Depression Smoking Status: Former smoker Past Alcohol Use History: None Reported Past Drug Use History: None Reported - Past Family History Mother Family Medical History: Cancer Brother(s) Family Medical History: Cancer Additional Family Medical History / Comment(s): Lung cancer. Father History Unknown: Yes Family Medical History: Hyperlipidemia Medications and Allergies Home Medications Medication Instructions Recorded Confirmed Type Ferrous Sulfate [Iron] 325 mg PO DAILY@0800 10/21/20 02/12/23 History Sertraline HCl [Zoloft] 50 mg PO HS 10/21/20 02/12/23 History allopurinoL [Zyloprim] 100 mg PO DAILY@0800 08/16/21 12/08/23 History risperiDONE [RisperDAL] 0.5 mg PO HS 10/21/20 02/12/23 History Apixaban [Eliquis] 5 mg PO BID@0800,1700 05/09/21 02/12/23 History Thiamine HCl [Vitamin B-1] 100 mg PO DAILY@0800 05/09/21 02/12/23 History Atorvastatin [Lipitor] 40 mg PO HS 10/16/22 02/12/23 History Clopidogrel [Plavix] 75 mg PO DAILY@0800 10/16/22 02/12/23 History Lidocaine 5% Patch [Lidoderm 5% 1 patch TRANSDERM DAILY@0800 10/17/22 02/12/23 History Patch] Cholecalciferol [Vitamin D3 (25 50 mcg PO DAILY@0800 12/14/22 02/12/23 History Mcg = 1000 Iu)] Cyclobenzaprine [Flexeril] 5 mg PO TID@0600,1400,2200 12/14/22 02/12/23 History Ipratropium-Albuterol Nebulize 3 ml INHALATION RT-Q6H 12/14/22 02/12/23 History [Duoneb 0.5 mg-3 mg/3 ml Soln] Potassium Chloride ER [K-Dur 20] 20 meq PO BID@0800,1700 12/14/22 02/12/23 History Sodium Bicarbonate Tab 650 mg PO BID@0800,1700 12/14/22 02/12/23 History oxyBUTYnin chloride [oxyBUTYnin 5 mg PO DAILY@0800 12/14/22 02/12/23 History chloride ER] Budesonide [Pulmicort] 1 mg INHALATION RT-BID@0800,1400 12/27/22 02/12/23 History Dapagliflozin Propanediol [Farxiga] 10 mg PO DAILY@0800 12/27/22 02/12/23 History Lactobacillus Acidophilus 1 cap PO DAILY@0800 12/27/22 02/12/23 History [Acidophilus Probiotic] Pantoprazole [Protonix] 40 mg PO DAILY@0600 12/27/22 02/12/23 History Glucerna Shake 237 ml PO TID@0800,1200,1700 01/21/23 02/12/23 History INSULIN ASPART (NovoLOG) [NovoLOG See Protocol SQ ACHS 01/21/23 02/12/23 History (formulary)] Insulin Detemir (Levemir) [Levemir] 10 unit SQ HS 01/21/23 02/12/23 History Ipratropium-Albuterol Nebulize 3 ml INHALATION RT-Q6H PRN 01/21/23 02/12/23 History [Duoneb 0.5 mg-3 mg/3 ml Soln] Multivit-Min/FA/Lycopen/Lutein 1 tab PO DAILY@0800 01/21/23 02/12/23 History [Centrum Silver Tablet] Acetaminophen Tab [Tylenol] 650 mg PO Q6HR PRN 02/12/23 02/12/23 History Amiodarone [Cordarone] 200 mg PO DAILY@0800 02/12/23 02/12/23 History Aspirin 81 mg PO DAILY@0800 02/12/23 02/12/23 History Furosemide [Lasix] 40 mg PO BID@0600,1400 02/12/23 02/12/23 History Loperamide [Imodium] 2 mg PO QID PRN 02/12/23 02/12/23 History Magnesium Hydroxide [Milk of 7,200 mg PO DIRECTED PRN 02/12/23 02/12/23 Hist ory Magnesia Concentrate] Metoprolol Tartrate [Lopressor] 100 mg PO BID@0800,1700 02/12/23 02/12/23 History Midodrine HCl [ProAmantine] 2.5 mg PO TID@0700,1100,1630 02/12/23 02/12/23 History Na Phos,M-B/Na Phos,Di-Ba [Fleet 133 ml RECTAL DAILY PRN 02/12/23 02/12/23 History Adult] Spironolactone [Aldactone] 25 mg PO DAILY@0600 02/12/23 02/12/23 History bisacodyL [Dulcolax] 10 mg RECTAL DAILY PRN 02/12/23 02/12/23 History metOLazone [Zaroxolyn] 5 mg PO DAILY@0800 02/12/23 02/12/23 History Allergies Allergy/AdvReac Type Severity Reaction Status Date / Time No Known Allergies Allergy Verified 02/12/23 19:30 Physical Exam Vitals: Vital Signs Temp Pulse Resp BP Pulse Ox 02/12/23 23:12 97 18 111/73 100 02/12/23 21:27 100 18 115/70 98 02/12/23 18:10 97.8 F 101 H 22 121/85 100 Intake and Output 02/12/23 02/12/23 02/13/23 14:59 22:59 06:59 Other: Weight 124.284 kg Results CBC & Chem 7: 02/12/23 20:10 02/12/23 19:19 Labs: Abnormal Lab Results - Last 24 Hours (Table) 02/12/23 02/12/23 02/12/23 Range/Units 19:19 19:19 19:19 RBC 2.35 L (4.30-5.90) m/uL Hgb 7.9 L (13.0-17.5) gm/dL Hct 25.8 L (39.0-53.0) % MCV 109.6 H (80.0-100.0) fL MCHC 30.8 L (31.0-37.0) g/dL RDW 22.5 H (11.5-15.5) % Lymphocytes # 0.5 L (1.0-4.8) k/uL Macrocytosis Marked A PT 13.2 H (10.0-12.5) sec INR 1.3 H (<1.2) APTT 36.5 H (22.0-30.0) sec Potassium 3.0 L (3.5-5.1) mmol/L Chloride 94 L (98-107) mmol/L Carbon Dioxide 32 H (22-30) mmol/L BUN 48 H (9-20) mg/dL Creatinine 1.68 H (0.66-1.25) mg/dL Glucose 107 H (74-99) mg/dL Calcium 8.0 L (8.4-10.2) mg/dL Albumin 2.9 L (3.5-5.0) g/dL 02/12/23 Range/Units 20:10 RBC 2.22 L (4.30-5.90) m/uL Hgb 7.5 L (13.0-17.5) gm/dL Hct 24.3 L (39.0-53.0) % MCV 109.5 H (80.0-100.0) fL MCHC (31.0-37.0) g/dL RDW 22.4 H (11.5-15.5) % Lymphocytes # (1.0-4.8) k/uL Macrocytosis Marked A PT (10.0-12.5) sec INR (<1.2) APTT (22.0-30.0) sec Potassium (3.5-5.1) mmol/L Chloride (98-107) mmol/L Carbon Dioxide (22-30) mmol/L BUN (9-20) mg/dL Creatinine (0.66-1.25) mg/dL Glucose (74-99) mg/dL Calcium (8.4-10.2) mg/dL Albumin (3.5-5.0) g/dL
[2023-02-13 05:30] LABS: Anisocytosis Moderate; Basophils % (A) 0 %; Eosinophils # (A) 0.2 k/uL (0-0.7); Eosinophils % (A) 3 %; HGB 7.7 gm/dL (13.0-17.5); Hypochromasia Marked; Lymphocytes # (A) 0.5 k/uL (1.0-4.8); Lymphocytes % (A) 7 %; MCH 34.2 pg (25.0-35.0); MCHC 30.8 g/dL (31.0-37.0); Macrocytosis Marked; Mean Platelet Volume 7.8; Monocytes # (A) 0.6 k/uL (0-1.0); Monocytes % (A) 8 %; Neutrophils # (A) 6.4 k/uL (1.3-7.7); Neutrophils % (A) 80 %; Platelet Count 291 k/uL (150-450); Poikilocytosis Marked; RBC 2.26 m/uL (4.30-5.90)
[2023-02-13 05:41] LABS: African American GFR (CKD) 57 (>60 ml/min/1.73 sqM); Anion Gap 9 mmol/L; Blood Urea Nitrogen 48 mg/dL (9-20); Calcium 7.8 mg/dL (8.4-10.2); Carbon Dioxide 32 mmol/L (22-30); Chloride 96 mmol/L (98-107); Glucose 98 mg/dL (74-99); Non-African American GFR(CKD) 49 (>60 ml/min/1.73 sqM); Sodium 137 mmol/L (137-145)
[2023-02-13] MEDS ORDERED: CYCLOBENZAPRINE 5 MG TAB PO SCH (06:00)
[2023-02-13] MEDS ORDERED: MIDODRINE 5 MG TAB PO SCH (07:00)
[2023-02-13] MEDS: PANTOPRAZOLE 40 MG/10 ML VIAL IV SCH (07:32)
[2023-02-13] MEDS ORDERED: POTASSIUM CHLORIDE ER 20 MEQ TAB.ER PO SCH (08:00)
[2023-02-13] MEDS ORDERED: SODIUM BICARBONATE TAB 650 MG TAB PO SCH (08:00)
[2023-02-13] MEDS ORDERED: BUDESONIDE 1 MG/2 ML NEBU INHALATION SCH (08:00)
[2023-02-13] MEDS ORDERED: THIAMINE 100 MG TAB PO SCH (08:00)
[2023-02-13] MEDS ORDERED: AMIODARONE 200 MG TAB PO SCH (08:00)
[2023-02-13] MEDS ORDERED: ASPIRIN 81 MG PO SCH (08:00)
[2023-02-13] MEDS ORDERED: OXYBUTYNIN XL 5 MG TAB.ER.24 PO SCH (08:00)
[2023-02-13] MEDS ORDERED: METOPROLOL TARTRATE 50 MG TAB PO SCH (08:00)
[2023-02-13] MEDS ORDERED: allopurinoL 100 MG TAB PO SCH (08:00)
--- NOTE | 2023-02-13 08:50 | P.DS ---
Providers Date of admission: 02/12/23 21:14 Expected date of discharge: 02/13/23 Attending physician: Sindy Cummins MD Primary care physician: Ten Mccartney MD Hospital Course: Discharge Diagnosis: Chronic macrocytic anemia, HgB 7.7 on discharge. Chronic hypoxic respiratory failure CKD III Ischemic cardiomyopathy Recent C. diff DM 2, insulin requiring Coronary artery disease with previous stenting Persistent atrial fibrillation Ventricular tachycardia previous ICD HTN HLD Hospital Course: Patient is a 72-year-old male with systolic CHF, A. fib on Eliquis, CAD status post stents, COPD, type 2 diabetes, and hypertension who presented from rehab due to hemoglobin of 6.6 noted on standard labs. On arrival to the ER here vital signs within normal limits. Laboratory analysis here in the emergency department was remarkable for hemoglobin of 7.9, potassium 3, and creatinine of 1.68. He was placed in observation for possible GI bleed. He was observed for greater than 12 hours with no signs of overt GI bleeding. Hemoglobin was drawn 2 additional times and remained stable at 7.7. Patient did not any endorse any signs of GI bleeding. He states he feels the best he has in quite some time. He was determined [facility] and felt was felt that his low hemoglobin on his initial blood work at the facility was likely due to lab variance. We also anticipate that the patient will have a positive fecal occult blood for the next several weeks if he continues to recover from C. diff. Follow-up: Medications changes include increasing ferrous sulfate from 325 mg once daily to 325 mg twice daily. All other medications remain unchanged. Patient seen and examined at bedside. Doing well. No complaints currently. States he is unsure why some hospital. Him about his lab. He reports that his stools been slowly getting more back to normal but not quite there yet. Vital signs reviewed and stable. General: nontoxic, no distress, appears at stated age Cardiovascular: S1S2 reg, no murmur, positive posterior tibial pulse bilateral, Lungs: CTA bilateral, no rhonchi, no rales , no accessory muscle use Abdominal: soft, nontender to palpation, no guarding, no appreciable organomegaly Ext: no gross muscle atrophy, no edema b/l lower extremities, no contractures Neuro: CN II-XI grossly intact, no focal neuro deficits Psych: Alert, oriented, appropriate affect A total of 32 minutes of time were spent preparing this complex discharge summary. Patient was discharged on 02/13/23. This dictation was prepared using [employer] voice recognition software. Though every attempt is made to correct errors during dictation some may still exist. Plan - Discharge Summary New Discharge Prescriptions: Continue risperiDONE [RisperDAL] 0.5 mg PO HS Sertraline HCl [Zoloft] 50 mg PO HS Apixaban [Eliquis] 5 mg PO BID@0800,1700 Clopidogrel [Plavix] 75 mg PO DAILY@0800 Lidocaine 5% Patch [Lidoderm 5% Patch] 1 patch TRANSDERM DAILY@0800 Cyclobenzaprine [Flexeril] 5 mg PO TID@0600,1400,2200 Sodium Bicarbonate Tab 650 mg PO BID@0800,1700 Potassium Chloride ER [K-Dur 20] 20 meq PO BID@0800,1700 oxyBUTYnin chloride [oxyBUTYnin chloride ER] 5 mg PO DAILY@0800 Cholecalciferol [Vitamin D3 (25 Mcg = 1000 Iu)] 50 mcg PO DAILY@0800 Lactobacillus Acidophilus [Acidophilus Probiotic] 1 cap PO DAILY@0800 Budesonide [Pulmicort] 1 mg INHALATION RT-BID@0800,1400 Dapagliflozin Propanediol [Farxiga] 10 mg PO DAILY@0800 Pantoprazole [Protonix] 40 mg PO DAILY@0600 Insulin Detemir (Levemir) [Levemir] 10 unit SQ HS Ipratropium-Albuterol Nebulize [Duoneb 0.5 mg-3 mg/3 ml Soln] 3 ml INHALATION RT-Q6H PRN PRN Reason: Shortness Of Breath Loperamide [Imodium] 2 mg PO QID PRN PRN Reason: Diarrhea Acetaminophen Tab [Tylenol] 650 mg PO Q6HR PRN PRN Reason: Fever And/ Or Pain Midodrine HCl [ProAmantine] 2.5 mg PO TID@0700,1100,1630 metOLazone [Zaroxolyn] 5 mg PO DAILY@0800 Aspirin 81 mg PO DAILY@0800 Amiodarone [Cordarone] 200 mg PO DAILY@0800 Metoprolol Tartrate [Lopressor] 100 mg PO BID@0800,1700 Magnesium Hydroxide [Milk of Magnesia Concentrate] 7,200 mg PO DIRECTED PRN PRN Reason: 2 days no BM allopurinoL [Zyloprim] 100 mg PO DAILY@0800 Thiamine HCl [Vitamin B-1] 100 mg PO DAILY@0800 Atorvastatin [Lipitor] 40 mg PO HS Ipratropium-Albuterol Nebulize [Duoneb 0.5 mg-3 mg/3 ml Soln] 3 ml INHALATION RT-Q6H INSULIN ASPART (NovoLOG) [NovoLOG (formulary)] See Protocol SQ ACHS Glucerna Shake 237 ml PO TID@0800,1200,1700 Multivit-Min/FA/Lycopen/Lutein [Centrum Silver Tablet] 1 tab PO DAILY@0800 Na Phos,M-B/Na Phos,Di-Ba [Fleet Adult] 133 ml RECTAL DAILY PRN PRN Reason: Constipation Spironolactone [Aldactone] 25 mg PO DAILY@0600 Furosemide [Lasix] 40 mg PO BID@0600,1400 Changed Ferrous Sulfate [Iron] 325 mg PO BID #60 tab Discontinued bisacodyL [Dulcolax] 10 mg RECTAL DAILY PRN PRN Reason: Constipation Discharge Medication List Sertraline HCl [Zoloft] 50 mg PO HS 10/21/20 [History] allopurinoL [Zyloprim] 100 mg PO DAILY@0800 10/21/20 [History] risperiDONE [RisperDAL] 0.5 mg PO HS 10/21/20 [History] Apixaban [Eliquis] 5 mg PO BID@0800,1700 05/09/21 [History] Thiamine HCl [Vitamin B-1] 100 mg PO DAILY@0800 05/09/21 [History] Atorvastatin [Lipitor] 40 mg PO HS 10/16/22 [History] Clopidogrel [Plavix] 75 mg PO DAILY@0800 10/16/22 [History] Lidocaine 5% Patch [Lidoderm 5% Patch] 1 patch TRANSDERM DAILY@0800 10/17/22 [History] Cholecalciferol [Vitamin D3 (25 Mcg = 1000 Iu)] 50 mcg PO DAILY@0800 12/14/22 [History] Cyclobenzaprine [Flexeril] 5 mg PO TID@0600,1400,2200 12/14/22 [History] Ipratropium-Albuterol Nebulize [Duoneb 0.5 mg-3 mg/3 ml Soln] 3 ml INHALATION RT-Q6H 12/14/22 [History] Potassium Chloride ER [K-Dur 20] 20 meq PO BID@0800,1700 12/14/22 [History] Sodium Bicarbonate Tab 650 mg PO BID@0800,1700 12/14/22 [History] oxyBUTYnin chloride [oxyBUTYnin chloride ER] 5 mg PO DAILY@0800 12/14/22 [History] Budesonide [Pulmicort] 1 mg INHALATION RT-BID@0800,1400 12/27/22 [History] Dapagliflozin Propanediol [Farxiga] 10 mg PO DAILY@0800 12/27/22 [History] Lactobacillus Acidophilus [Acidophilus Probiotic] 1 cap PO DAILY@0800 12/27/22 [History] Pantoprazole [Protonix] 40 mg PO DAILY@0600 12/27/22 [History] Glucerna Shake 237 ml PO TID@0800,1200,1700 01/21/23 [History] INSULIN ASPART (NovoLOG) [NovoLOG (formulary)] See Protocol SQ ACHS 01/21/23 [History] Insulin Detemir (Levemir) [Levemir] 10 unit SQ HS 01/21/23 [History] Ipratropium-Albuterol Nebulize [Duoneb 0.5 mg-3 mg/3 ml Soln] 3 ml INHALATION RT-Q6H PRN 01/21/23 [History] Multivit-Min/FA/Lycopen/Lutein [Centrum Silver Tablet] 1 tab PO DAILY@0800 01/21/23 [History] Acetaminophen Tab [Tylenol] 650 mg PO Q6HR PRN 02/12/23 [History] Amiodarone [Cordarone] 200 mg PO DAILY@0800 02/12/23 [History] Aspirin 81 mg PO DAILY@0800 02/12/23 [History] Furosemide [Lasix] 40 mg PO BID@0600,1400 02/12/23 [History] Loperamide [Imodium] 2 mg PO QID PRN 02/12/23 [History] Magnesium Hydroxide [Milk of Magnesia Concentrate] 7,200 mg PO DIRECTED PRN 02/12/23 [History] Metoprolol Tartrate [Lopressor] 100 mg PO BID@0800,1700 02/12/23 [History] Midodrine HCl [ProAmantine] 2.5 mg PO TID@0700,1100,1630 02/12/23 [History] Na Phos,M-B/Na Phos,Di-Ba [Fleet Adult] 133 ml RECTAL DAILY PRN 02/12/23 [History] Spironolactone [Aldactone] 25 mg PO DAILY@0600 02/12/23 [History] metOLazone [Zaroxolyn] 5 mg PO DAILY@0800 02/12/23 [History] Ferrous Sulfate [Iron] 325 mg PO BID #60 tab 02/13/23 [Rx] Follow up Appointment(s)/Referral(s): Ten Mccartney MD [Primary Care Provider] - 1-2 days Activity/Diet/Wound Care/Special Instructions: Activity: As tolerated, fall precautions Diet: Carb consistent diet, 2 gram sodium, 2L fluid restrictions Special Instructions: Check blood sugars before every meal and at bedtime Check weight daily Patient hemoglobin on discharge was 7.7. For the last several weeks he has been running with hemoglobins of 7.5-8. No signs of active bleeding in the emergency department. Oral iron and increase to 1 tablet twice daily. Recommend repeat CBC in 2-3 days. Discharge Disposition: TRANSFER TO SNF/ECF
[2023-02-13] MEDS ORDERED: SODIUM FERRIC GLUCONAT-SUCROSE 125 MG in SODIUM CHLORIDE 0.9% 100 ML IVPB ONE (09:00)
[2023-02-13] MEDS ORDERED: PANTOPRAZOLE 40 MG/10 ML VIAL IVP SCH (09:00)
[2023-02-13 09:51] VITALS: BP 120/63; PULSE 94; RESP 20
[2023-02-13] MEDS ORDERED: risperiDONE 0.5 MG TAB PO SCH (21:00)
[2023-02-13] MEDS ORDERED: ATORVASTATIN 40 MG TAB PO SCH (21:00)
[2023-02-13] MEDS ORDERED: INSULIN DETEMIR (LEVEMIR) 100 UNIT/ML SYR SQ SCH (21:00)
[2023-02-13] MEDS ORDERED: SERTRALINE 50 MG TAB PO SCH (21:00)
== END 2023-02-13 09:49 ==
LOC: EC 18:07 → 6NMEDSUR 21:14
PROVIDERS: ADMIT Internal Medicine; ATTEND Internal Medicine
DX: D53.9 Nutritional anemia, unspecified (principal); E87.6 Hypokalemia; N17.9 Acute kidney failure, unspecified; I48.19 Other persistent atrial fibrillation; I25.10 Atherosclerotic heart disease of native coronary artery without angina pectoris; E78.5 Hyperlipidemia, unspecified; I13.0 Hypertensive heart and chronic kidney disease with heart failure and stage 1 through stage 4 chronic kidney disease, or unspecified chronic kidney disease; I50.22 Chronic systolic (congestive) heart failure; N18.30 Chronic kidney disease, stage 3 unspecified; D63.1 Anemia in chronic kidney disease; E11.22 Type 2 diabetes mellitus with diabetic chronic kidney disease; F32.A Depression, unspecified; F41.9 Anxiety disorder, unspecified; J44.9 Chronic obstructive pulmonary disease, unspecified; I25.5 Ischemic cardiomyopathy; J96.11 Chronic respiratory failure with hypoxia; I47.20 Ventricular tachycardia, unspecified; Z95.810 Presence of automatic (implantable) cardiac defibrillator; Z86.16 Personal history of COVID-19; Z87.891 Personal history of nicotine dependence; Z95.5 Presence of coronary angioplasty implant and graft; Z79.899 Other long term (current) drug therapy; Z79.01 Long term (current) use of anticoagulants; Z79.02 Long term (current) use of antithrombotics/antiplatelets; Z79.84 Long term (current) use of oral hypoglycemic drugs; Z79.4 Long term (current) use of insulin; Z79.82 Long term (current) use of aspirin
CPT/HCPCS: 96376; 96365; 96367; 96375; 99285; 36415; 94640; 94760; 93005; 86900; 86901; 80053; 80048; 83735; 85025 ×2; 85027; 85610; 85730; 86850; 82272; G0378 ×2; J2916; J3480; C9113 ×2

== ENCOUNTER 2023-02-27 13:55 | Emergency (ER) | payer OTHER ==
[2023-02-27 14:37] LABS: Glucose,Whole Blood 183 mg/dL (70-110)
[2023-02-27 15:13] LABS: Anisocytosis Moderate; Basophils % (A) 0 %; Eosinophils # (A) 0.1 k/uL (0-0.7); Eosinophils % (A) 1 %; HCT 25.2 % (39.0-53.0); HGB 7.8 gm/dL (13.0-17.5); Hypochromasia Marked; Lymphocytes # (A) 0.6 k/uL (1.0-4.8); Lymphocytes % (A) 4 %; MCH 34.5 pg (25.0-35.0); MCV 111.3 fL (80.0-100.0); Macrocytosis Marked; Mean Platelet Volume 7.6; Monocytes # (A) 0.8 k/uL (0-1.0); Monocytes % (A) 6 %; Neutrophils # (A) 11.6 k/uL (1.3-7.7); Neutrophils % (A) 88 %; Platelet Count 402 k/uL (150-450); Poikilocytosis Moderate; RBC 2.26 m/uL (4.30-5.90); RDW 21.6 % (11.5-15.5); WBC 13.1 k/uL (3.8-10.6)
[2023-02-27 15:23] LABS: ALT 40 U/L (4-49); AST 98 U/L (17-59); African American GFR (CKD) 38 (>60 ml/min/1.73 sqM); Alkaline Phosphatase 127 U/L (38-126); Anion Gap 10 mmol/L; Blood Urea Nitrogen 69 mg/dL (9-20); Calcium 8.9 mg/dL (8.4-10.2); Carbon Dioxide 31 mmol/L (22-30); Chloride 94 mmol/L (98-107); Glucose 140 mg/dL (74-99); Non-African American GFR(CKD) 33 (>60 ml/min/1.73 sqM); Potassium 4.6 mmol/L (3.5-5.1); Sodium 135 mmol/L (137-145); Total Bilirubin 0.7 mg/dL (0.2-1.3)
--- NOTE | 2023-02-27 15:29 | ED ---
General Adult HPI - General Chief complaint: Recheck/Abnormal Lab/Rx Stated complaint: Hypothermia Source: EMS Mode of arrival: EMS - History of Present Illness Initial comments: 73-year-old male with past medical history of COPD on 4 L home O2, congestive heart failure, diabetes who presents to the emergency department from [facility]. The patient was transferred for reported hypothermia. They state that the patient had a temperature of 95 axillary. He is alert and oriented 1 for which they stated his normal baseline. There is no other reported complaints from staff. Upon evaluation of the patient, he admits to feeling chills but denies other complaints. He does have chronic respiratory insufficiency. He denies cough. He denies chest pain or abdominal pain. No reported fevers. Patient recently hospitalized for c.diff infection. - Related Data Home Medications Medication Instructions Recorded Confirmed Sertraline HCl [Zoloft] 50 mg PO HS 10/21/20 02/12/23 allopurinoL [Zyloprim] 100 mg PO DAILY@0800 10/21/20 02/12/23 risperiDONE [RisperDAL] 0.5 mg PO HS 10/21/20 02/12/23 Apixaban [Eliquis] 5 mg PO BID@0800,1700 05/09/21 02/12/23 Thiamine HCl [Vitamin B-1] 100 mg PO DAILY@0800 05/09/21 02/12/23 Atorvastatin [Lipitor] 40 mg PO HS 10/16/22 02/12/23 Clopidogrel [Plavix] 75 mg PO DAILY@0800 10/16/22 02/12/23 Lidocaine 5% Patch [Lidoderm 5% 1 patch TRANSDERM DAILY@0800 10/17/22 02/12/23 Patch] Cholecalciferol [Vitamin D3 (25 50 mcg PO DAILY@0800 12/14/22 02/12/23 Mcg = 1000 Iu)] Cyclobenzaprine [Flexeril] 5 mg PO TID@0600,1400,2200 12/14/22 02/12/23 Ipratropium-Albuterol Nebulize 3 ml INHALATION RT-Q6H 12/14/22 02/12/23 [Duoneb 0.5 mg-3 mg/3 ml Soln] Potassium Chloride ER [K-Dur 20] 20 meq PO BID@0800,1700 12/14/22 02/12/23 Sodium Bicarbonate Tab 650 mg PO BID@0800,1700 12/14/22 02/12/23 oxyBUTYnin chloride [oxyBUTYnin 5 mg PO DAILY@0800 12/14/22 02/12/23 chloride ER] Budesonide [Pulmicort] 1 mg INHALATION RT-BID@0800,1400 12/27/22 02/12/23 Dapagliflozin Propanediol [Farxiga] 10 mg PO DAILY@0800 12/27/22 02/12/23 Lactobacillus Acidophilus 1 cap PO DAILY@0800 12/27/22 02/12/23 [Acidophilus Probiotic] Pantoprazole [Protonix] 40 mg PO DAILY@0600 12/27/22 02/12/23 Glucerna Shake 237 ml PO TID@0800,1200,1700 01/21/23 02/12/23 INSULIN ASPART (NovoLOG) [NovoLOG See Protocol SQ ACHS 01/21/23 02/12/23 (formulary)] Insulin Detemir (Levemir) [Levemir] 10 unit SQ HS 01/21/23 02/12/23 Ipratropium-Albuterol Nebulize 3 ml INHALATION RT-Q6H PRN 01/21/23 02/12/23 [Duoneb 0.5 mg-3 mg/3 ml Soln] Multivit-Min/FA/Lycopen/Lutein 1 tab PO DAILY@0800 01/21/23 02/12/23 [Centrum Silver Tablet] Acetaminophen Tab [Tylenol] 650 mg PO Q6HR PRN 02/12/23 02/12/23 Amiodarone [Cordarone] 200 mg PO DAILY@0800 02/12/23 02/12/23 Aspirin 81 mg PO DAILY@0800 02/12/23 02/12/23 Furosemide [Lasix] 40 mg PO BID@0600,1400 02/12/23 02/12/23 Loperamide [Imodium] 2 mg PO QID PRN 02/12/23 02/12/23 Magnesium Hydroxide [Milk of 7,200 mg PO DIRECTED PRN 02/12/23 02/12/23 Magnesia Concentrate] Metoprolol Tartrate [Lopressor] 100 mg PO BID@0800,1700 02/12/23 02/12/23 Midodrine HCl [ProAmantine] 2.5 mg PO TID@0700,1100,1630 02/12/23 02/12/23 Na Phos,M-B/Na Phos,Di-Ba [Fleet 133 ml RECTAL DAILY PRN 02/12/23 02/12/23 Adult] Spironolactone [Aldactone] 25 mg PO DAILY@0600 02/12/23 02/12/23 metOLazone [Zaroxolyn] 5 mg PO DAILY@0800 02/12/23 02/12/23 Previous Rx's Medication Instructions Recorded Ferrous Sulfate [Iron] 325 mg PO BID #60 tab 02/13/23 Allergies Allergy/AdvReac Type Severity Reaction Status Date / Time No Known Allergies Allergy Verified 02/27/23 14:05 Review of Systems ROS Statement: Those systems with pertinent positive or pertinent negative responses have been documented in the HPI. ROS Other: All systems not noted in ROS Statement are negative. Past Medical History Past Medical History: Atrial Fibrillation, Coronary Artery Disease (CAD), Heart Failure, Diabetes Mellitus, Hyperlipidemia, Hypertension Additional Past Medical History / Comment(s): Gout. Hx UTI, CKD, Hx COVID, C diff colitis History of Any Multi-Drug Resistant Organisms: MRSA Date of last positivie culture/infection: 01/21/23 MDRO Source:: Left Foot Past Surgical History: Heart Catheterization With Stent, Orthopedic Surgery, Pacemaker Additional Past Surgical History / Comment(s): 2 STENTS DEC 2020, left hip surgery X2. Past Anesthesia/Blood Transfusion Reactions: No Reported Reaction, Postoperative Nausea & Vomiting (PONV) Additional Past Anesthesia/Blood Transfusion Reaction / Comment(s): UNKNOWN FAMILY HX. Date of Last Stent Placement:: DEC 2020 Type of Cardiac Device: Unknown Device Placement Date:: Unknown Past Psychological History: Anxiety, Depression Smoking Status: Former smoker Past Alcohol Use History: None Reported Past Drug Use History: None Reported - Past Family History Mother Family Medical History: Cancer Brother(s) Family Medical History: Cancer Additional Family Medical History / Comment(s): Lung cancer. Father History Unknown: Yes Family Medical History: Hyperlipidemia General Exam Limitations: altered mental status General appearance: other (Fatigued, answers questions appropriately) Eye exam: Present: normal appearance, PERRL, EOMI. Absent: scleral icterus, conjunctival injection, periorbital swelling ENT exam: Present: mucous membranes dry Respiratory exam: Present: rales, decreased breath sounds Cardiovascular Exam: Present: regular rate, irregular rhythm GI/Abdominal exam: Present: soft, normal bowel sounds. Absent: distended, tenderness, guarding, rebound, rigid Neurological exam: Present: alert Psychiatric exam: Present: flat affect Skin exam: Present: warm, diaphoretic Course Vital Signs 02/27/23 02/27/23 02/27/23 13:57 14:35 16:28 Temperature 98.6 F 98.0 F Pulse Rate 109 H 98 106 H Respiratory 20 24 22 Rate Blood Pressure 98/75 113/88 115/80 O2 Sat by Pulse 99 99 98 Oximetry 02/27/23 17:33 Temperature 97.9 F Pulse Rate 100 Respiratory 26 H Rate Blood Pressure 115/82 O2 Sat by Pulse 98 Oximetry Medical Decision Making - Medical Decision Making Was pt. sent in by a medical professional or institution (, PA, SESSIONS CLERK, urgent care, hospital, or retirement...) When possible be specific @ -Patient was sent in from [facility] for hypothermia Did you speak to anyone other than the patient for history (EMS, parent, family, police, friend...)? What history was obtained from this source @ -EMS Did you review nursing and triage notes (agree or disagree)? Why? @ -I reviewed and agree with nursing and triage notes Were old charts reviewed (outside hosp., previous admission, EMS record, old EKG, old radiological studies, urgent care reports/EKG's, retirement records)? Report findings @ -I reviewed the transfer records from [facility] Differential Diagnosis (chest pain, altered mental status, abdominal pain women, abdominal pain men, vaginal bleeding, weakness, fever, dyspnea, syncope, hea dache, dizziness, GI bleed, back pain, seizure, CVA, palpatations, mental health, musculoskeletal)? @ -Differential Pneumonia, viral URI, endocarditis, myocarditis, pericarditis, otitis, sinusitis, peritonsillar Abscess, retropharyngeal Abscess, epiglottitis, peritonitis, appendicitis, Joyce cystitis, diverticulitis, hepatitis, colitis, UTI, PID, TOA, pyelonephritis, prostatitis, epididymitis, meningitis, encephalitis, pulmonary embolism, CVA, thyroid storm, pancreatitis, adrenal crisis, cavernous sinus thrombosis, this is not meant to be an all-inclusive list. EKG interpreted by me (3pts min.). @ -Yes demonstrates A. fib with a rate of 93. QRS 150. QTC of 443. No acute ST segment elevations or depressions X-rays interpreted by me (1pt min.). @ -Continues to demonstrate pleural effusion - chest x-ray is unchanged CT interpreted by me (1pt min.). @ -None done U/S interpreted by me (1pt. min.). @ -None done What testing was considered but not performed or refused? (CT, X-rays, U/S, labs)? Why? @ -None What meds were considered but not given or refused? Why? @ -None Did you discuss the management of the patient with other professionals (professionals i.e. , PA, SESSIONS CLERK, lab, RT, psych nurse, hospice social worker, sheltered workshop executive director, teacher, air defense artillery officer, outpatient case manager)? Give summary @ -No Was smoking cessation discussed for >3mins.? @ -No Was critical care preformed (if so, how long)? @ -No Were there social determinants of health that impacted care today? How? (Homelessness, low income, unemployed, alcoholism, drug addiction, transportation, low edu. Level, literacy, decrease access to med. care, [facility], rehab)? @ -Patient comes from [facility] Was there de-escalation of care discussed even if they declined (Discuss DNR or withdrawal of care, Hospice)? DNR status @ -No What co-morbidities impacted this encounter? (DM, HTN, Smoking, COPD, CAD, Cancer, CVA, ARF, Chemo, Hep., AIDS, mental health diagnosis, sleep apnea, m orbid obesity)? @ -COPD, A. fib, diabetes Was patient admitted / discharged? Hospital course, mention meds given and route, prescriptions, significant lab abnormalities, going to OR and other pertinent info. @ -Discharged. It was reported that the patient was sent over for hypothermia. We did obtain the patient's temperature and it is 98.6. I did conduct laboratory studies and a chest x-ray to ensure that the patient is thoroughly evaluated. Laboratory studies are reviewed by myself and are within normal limits for the patient. Patient will be sent back at this time as there is no identifiable reason for admission. If the patient has any new or worsening symptoms he may be reevaluated at that time Undiagnosed new problem with uncertain prognosis? @ -No Drug Therapy requiring intensive monitoring for toxicity (Heparin, Nitro, Insulin, Cardizem)? @ -No Were any procedures done? @ -No Diagnosis/symptom? @ -Reported hypothermia, chronic anemia, chronic respiratory insufficiency Acute, or Chronic, or Acute on Chronic? @ -Acute on chronic Uncomplicated (without systemic symptoms) or Complicated (systemic symptoms)? @ -Complicated Side effects of treatment? @ -No Exacerbation, Progression, or Severe Exacerbation? @ -No Poses a threat to life or bodily function? How? (Chest pain, USA, MT, pneumonia, PE, COPD, DKA, ARF, appy, cholecystitis, CVA, Diverticulitis, Homicidal, Suicidal, threat to staff... and all critical care pts) @ -No - Lab Data Result diagrams: 02/27/23 14:54 02/27/23 14:54 Lab Results 02/27/23 02/27/23 02/27/23 Range/Units 14:33 14:40 14:54 WBC 13.1 H (3.8-10.6) k/uL RBC 2.26 L (4.30-5.90) m/uL Hgb 7.8 L (13.0-17.5) gm/dL Hct 25.2 L (39.0-53.0) % MCV 111.3 H (80.0-100.0) fL MCH 34.5 (25.0-35.0) pg MCHC 31.0 (31.0-37.0) g/dL RDW 21.6 H (11.5-15.5) % Plt Count 402 (150-450) k/uL MPV 7.6 Neutrophils % 88 % Lymphocytes % 4 % Monocytes % 6 % Eosinophils % 1 % Basophils % 0 % Neutrophils # 11.6 H (1.3-7.7) k/uL Lymphocytes # 0.6 L (1.0-4.8) k/uL Monocytes # 0.8 (0-1.0) k/uL Eosinophils # 0.1 (0-0.7) k/uL Basophils # 0.0 (0-0.2) k/uL Manual Slide Review Performed Hypochromasia Marked Poikilocytosis Moderate Anisocytosis Moderate Macrocytosis Marked A Sodium (137-145) mmol/L Potassium (3.5-5.1) mmol/L Chloride (98-107) mmol/L Carbon Dioxide (22-30) mmol/L Anion Gap mmol/L BUN (9-20) mg/dL Creatinine (0.66-1.25) mg/dL Est GFR (CKD-EPI)AfAm (>60 ml/min/1.73 sqM) Est GFR (CKD-EPI)NonAf (>60 ml/min/1.73 sqM) Glucose (74-99) mg/dL POC Glucose (mg/dL) 183 H (70-110) mg/dL POC Glu [place] [employer] Loader ID Aleshia Damon Plasma Lactic Acid Ilya (0.7-2.0) mmol/L Calcium (8.4-10.2) mg/dL Total Bilirubin (0.2-1.3) mg/dL AST (17-59) U/L ALT (4-49) U/L Alkaline Phosphatase (38-126) U/L Total Protein (6.3-8.2) g/dL Albumin (3.5-5.0) g/dL Influenza Type A (PCR) Not Detected (Not Detectd) Influenza Type B (PCR) Not Detected (Not Detectd) RSV (PCR) Not Detected (Not Detectd) SARS-CoV-2 (PCR) Not Detected (Not Detectd) 02/27/23 02/27/23 Range/Units 14:54 14:54 WBC (3.8-10.6) k/uL RBC (4.30-5.90) m/uL Hgb (13.0-17.5) gm/dL Hct (39.0-53.0) % MCV (80.0-100.0) fL MCH (25.0-35.0) pg MCHC (31.0-37.0) g/dL RDW (11.5-15.5) % Plt Count (150-450) k/uL MPV Neutrophils % % Lymphocytes % % Monocytes % % Eosinophils % % Basophils % % Neutrophils # (1.3-7.7) k/uL Lymphocytes # (1.0-4.8) k/uL Monocytes # (0-1.0) k/uL Eosinophils # (0-0.7) k/uL Basophils # (0-0.2) k/uL Manual Slide Review Hypochromasia Poikilocytosis Anisocytosis Macrocytosis Sodium 135 L (137-145) mmol/L Potassium 4.6 (3.5-5.1) mmol/L Chloride 94 L (98-107) mmol/L Carbon Dioxide 31 H (22-30) mmol/L Anion Gap 10 mmol/L BUN 69 H (9-20) mg/dL Creatinine 1.95 H (0.66-1.25) mg/dL Est GFR (CKD-EPI)AfAm 38 (>60 ml/min/1.73 sqM) Est GFR (CKD-EPI)NonAf 33 (>60 ml/min/1.73 sqM) Glucose 140 H (74-99) mg/dL POC Glucose (mg/dL) (70-110) mg/dL POC Glu [place] [employer] Loader ID Plasma Lactic Acid Ilya 0.9 (0.7-2.0) mmol/L Calcium 8.9 (8.4-10.2) mg/dL Total Bilirubin 0.7 (0.2-1.3) mg/dL AST 98 H (17-59) U/L ALT 40 (4-49) U/L Alkaline Phosphatase 127 H (38-126) U/L Total Protein 8.0 (6.3-8.2) g/dL Albumin 3.0 L (3.5-5.0) g/dL Influenza Type A (PCR) (Not Detectd) Influenza Type B (PCR) (Not Detectd) RSV (PCR) (Not Detectd) SARS-CoV-2 (PCR) (Not Detectd) Disposition Clinical Impression: Dehydration Disposition: HOME SELF-CARE Condition: Stable Instructions (If sedation given, give patient instructions): Dehydration (ED) Additional Instructions: Your temperature was normal in the emergency department. Your labs are within normal limits. Return for any new or worsening symptoms Is patient prescribed a controlled substance at d/c from ED?: No Referrals: Umesh Alvarez DO [Primary Care Provider] - 1-2 days Time of Disposition: 16:07
--- NOTE | 2023-02-27 15:46 | XR ---
EXAMINATION TYPE: XR chest 2V DATE OF EXAM: 02/27/2023 COMPARISON: 02/08/2023 HISTORY: 73 year-old male shortness of breath, difficulty breathing TECHNIQUE: AP and lateral views FINDINGS: Left anterior chest wall AICD generator with right atrial and right ventricular leads. Heart mildly e nlarged. Focal opacity right mid and lower lung with residual small right pleural effusion. Findings relatively similar. Left base underpenetrated and not well assessed. Posterior thoracic fusion hardwa re with vertebroplasty change noted. Interstitial prominence. IMPRESSION: Ongoing small right pleural effusion with extensive consolidation right mid and lower lung fairly sim ilar to prior exam. Possible sequela of CHF.
[2023-02-27 17:45] VITALS: BP 115/82; PULSE 100; RESP 26; TEMP 97.9
== END 2023-02-27 17:57 | disposition home or self-care (01) ==
LOC: EC 13:55
DX: E86.0 Dehydration (principal); I48.91 Unspecified atrial fibrillation; J90 Pleural effusion, not elsewhere classified; I25.10 Atherosclerotic heart disease of native coronary artery without angina pectoris; I50.9 Heart failure, unspecified; E11.9 Type 2 diabetes mellitus without complications; I10 Essential (primary) hypertension; E78.5 Hyperlipidemia, unspecified; F41.9 Anxiety disorder, unspecified; F32.A Depression, unspecified; Z87.891 Personal history of nicotine dependence; Z79.01 Long term (current) use of anticoagulants; Z79.4 Long term (current) use of insulin; Z79.82 Long term (current) use of aspirin; Z79.84 Long term (current) use of oral hypoglycemic drugs; Z20.822 Contact with and (suspected) exposure to COVID-19; Z79.02 Long term (current) use of antithrombotics/antiplatelets; Z79.51 Long term (current) use of inhaled steroids; Z86.16 Personal history of COVID-19
CPT/HCPCS: 36415; 71046; 80053; 83605; 85025; 87636; 93005; 99284

== ENCOUNTER 2023-03-06 13:31 | Inpatient (IN) | payer OTHER ==
--- NOTE | 2023-03-06 14:17 | XR ---
EXAMINATION TYPE: XR chest 1V portable DATE OF EXAM: 03/06/2023 1:52 PM CLINICAL INDICATION:Male, 73 years old with history of nas; PHH COMPARISON: Chest radiographs from 02/27/2023 TECHNIQUE: XR chest 1V portable Frontal view of the chest. FINDINGS: Lungs/Pleura: No evidence of focal consolidation or pneumothorax. Blunting of the costophrenic angles is present. Pulmonary vascularity: Unremarkable. Heart/mediastinum: Cardiomediastinal silhouette is enlarged and stable. Two lead cardiac conduction d evice overlying the left hemithorax with lead tips projecting over the right ventricle and right atri um. Musculoskeletal: No acute osseous pathology. Fixation hardware in the spine appear intact. Other findings: None IMPRESSION: Cardiomegaly with small right and trace left pleural effusion correlate for congestive heart failure.
--- NOTE | 2023-03-06 14:31 | ED ---
General Adult HPI - General Source: patient, EMS, RN notes reviewed, old records reviewed Limitations: no limitations <Gray Reich - Last Filed: 03/06/23 14:55> <Marissa Corley - Last Filed: 03/07/23 01:08> - General Stated complaint: SOB Time Seen by Provider: 03/06/23 13:38 - History of Present Illness Initial comments: 73-year-old male presented from longterm with hypoxia, increased dyspnea. Patient does rule out supple no oxygen or BiPAP at baseline. Patient was found to be hypoxic and transport to the emergency department. There's been increased cough and congestion. No reported fever. No vomiting. No pain complaints. (Gray Reich) - Related Data Home Medications Medication Instructions Recorded Confirmed Sertraline HCl [Zoloft] 50 mg PO HS 10/21/20 03/06/23 allopurinoL [Zyloprim] 100 mg PO DAILY@0800 10/21/20 03/06/23 risperiDONE [RisperDAL] 0.5 mg PO HS 10/21/20 03/06/23 Apixaban [Eliquis] 5 mg PO BID@0800,1700 05/09/21 03/06/23 Thiamine HCl [Vitamin B-1] 100 mg PO DAILY@0800 05/09/21 03/06/23 Atorvastatin [Lipitor] 40 mg PO HS 10/16/22 03/06/23 Clopidogrel [Plavix] 75 mg PO DAILY@0800 10/16/22 03/06/23 Lidocaine 5% Patch [Lidoderm 5% 1 patch TRANSDERM DAILY@0800 10/17/22 03/06/23 Patch] Cholecalciferol [Vitamin D3 (25 50 mcg PO DAILY@0800 12/14/22 03/06/23 Mcg = 1000 Iu)] Cyclobenzaprine [Flexeril] 5 mg PO TID@0600,1400,2200 12/14/22 03/06/23 Ipratropium-Albuterol Nebulize 3 ml INHALATION RT-Q6H PRN 12/14/22 03/06/23 [Duoneb 0.5 mg-3 mg/3 ml Soln] Potassium Chloride ER [K-Dur 20] 20 meq PO BID@0800,1700 12/14/22 03/06/23 Sodium Bicarbonate Tab 650 mg PO BID@0800,1700 12/14/22 03/06/23 oxyBUTYnin chloride [oxyBUTYnin 5 mg PO DAILY@0800 12/14/22 03/06/23 chloride ER] Budesonide [Pulmicort] 1 mg INHALATION RT-BID@0800,1400 12/27/22 03/06/23 Dapagliflozin Propanediol [Farxiga] 10 mg PO DAILY@0800 12/27/22 03/06/23 Lactobacillus Acidophilus 1 cap PO DAILY@0800 12/27/22 03/06/23 [Acidophilus Probiotic] Pantoprazole [Protonix] 40 mg PO DAILY@0600 12/27/22 03/06/23 Glucerna Shake 237 ml PO TID@0800,1200,1700 01/21/23 03/06/23 INSULIN ASPART (NovoLOG) [NovoLOG See Protocol SQ ACHS 01/21/23 03/06/23 (formulary)] Insulin Detemir (Levemir) [Levemir] 10 unit SQ HS 01/21/23 03/06/23 Ipratropium-Albuterol Nebulize 3 ml INHALATION RT-Q6H 01/21/23 03/06/23 [Duoneb 0.5 mg-3 mg/3 ml Soln] Multivit-Min/FA/Lycopen/Lutein 1 tab PO DAILY@0800 01/21/23 03/06/23 [Centrum Silver Tablet] Acetaminophen Tab [Tylenol] 650 mg PO Q6HR PRN 02/12/23 03/06/23 Amiodarone [Cordarone] 200 mg PO DAILY@0800 02/12/23 03/06/23 Aspirin 81 mg PO DAILY@0800 02/12/23 03/06/23 Furosemide [Lasix] 40 mg PO BID@0600,1400 02/12/23 03/06/23 Loperamide [Imodium] 2 mg PO QID PRN 02/12/23 03/06/23 Magnesium Hydroxide [Milk of 7,200 mg PO DIRECTED PRN 02/12/23 03/06/23 Magnesia Concentrate] Metoprolol Tartrate [Lopressor] 100 mg PO BID@0800,1700 02/12/23 03/06/23 Midodrine HCl [ProAmantine] 2.5 mg PO TID@0700,1100,1630 02/12/23 03/06/23 Spironolactone [Aldactone] 25 mg PO DAILY@0600 02/12/23 03/06/23 metOLazone [Zaroxolyn] 5 mg PO Q48H 02/12/23 03/06/23 Ferrous Sulfate [Iron] 325 mg PO BID@0800,1700 03/06/23 03/06/23 Na Phos,M-B/Na Phos,Di-Ba [Fleet 133 ml RECTAL DAILY PRN 03/06/23 03/06/23 Adult] Sodium Chloride [[place]] 2 spray EA NOSTRIL TID 03/06/23 03/06/23 Triamcinolone 0.5% Cream [Kenalog 1 applic TOPICAL BID 03/06/23 03/06/23 0.5% Cream] bisacodyL [Dulcolax] 10 mg RECTAL DAILY PRN 03/06/23 03/06/23 Allergies Allergy/AdvReac Type Severity Reaction Status Date / Time No Known Allergies Allergy Verified 03/06/23 18:10 Review of Systems ROS Other: All systems not noted in ROS Statement are negative. <Gray Reich - Last Filed: 03/06/23 14:55> ROS Other: All systems not noted in ROS Statement are negative. <Marissa Corley - Last Filed: 03/07/23 01:08> ROS Statement: Those systems with pertinent positive or pertinent negative responses have been documented in the HPI. Past Medical History Past Medical History: Atrial Fibrillation, Coronary Artery Disease (CAD), Heart Failure, Diabetes Mellitus, Hyperlipidemia, Hypertension Additional Past Medical History / Comment(s): Gout. Hx UTI, CKD, Hx COVID, C d iff colitis History of Any Multi-Drug Resistant Organisms: MRSA Date of last positivie culture/infection: 01/21/23 MDRO Source:: Left Foot Past Surgical History: Heart Catheterization With Stent, Orthopedic Surgery, Pacemaker Additional Past Surgical History / Comment(s): 2 STENTS DEC 2020, left hip surgery X2. Past Anesthesia/Blood Transfusion Reactions: No Reported Reaction, Postoperative Nausea & Vomiting (PONV) Additional Past Anesthesia/Blood Transfusion Reaction / Comment(s): UNKNOWN FAMILY HX. Date of Last Stent Placement:: DEC 2020 Type of Cardiac Device: Unknown Device Placement Date:: Unknown Past Psychological History: Anxiety, Depression Smoking Status: Former smoker Past Alcohol Use History: None Reported Past Drug Use History: None Reported - Past Family History Mother Family Medical History: Cancer Brother(s) Family Medical History: Cancer Additional Family Medical History / Comment(s): Lung cancer. Father History Unknown: Yes Family Medical History: Hyperlipidemia <Gray Reich - Last Filed: 03/06/23 14:55> General Exam General appearance: alert, in distress Head exam: Present: atraumatic, normocephalic Eye exam: Present: normal appearance, PERRL Respiratory exam: Present: respiratory distress, rhonchi, accessory muscle use, decreased breath sounds Cardiovascular Exam: Present: regular rate, normal rhythm GI/Abdominal exam: Present: soft. Absent: distended, tenderness, guarding Extremities exam: Present: normal inspection, normal capillary refill. Absent: pedal edema, calf tenderness Neurological exam: Present: alert, oriented X3, CN II-XII intact. Absent: motor sensory deficit Psychiatric exam: Present: normal affect, normal mood Skin exam: Present: warm, dry, intact. Absent: cyanosis, diaphoretic <Gray eRich - Last Filed: 03/06/23 14:55> Course <Gray Reich - Last Filed: 03/06/23 14:55> <Marissa Corley - Last Filed: 03/07/23 01:08> Vital Signs 03/06/23 03/06/23 03/06/23 13:45 13:46 13:47 Temperature 97.9 F Pulse Rate 123 H Respiratory 32 H Rate Blood Pressure 119/101 O2 Sat by Pulse 90 L Oximetry Fraction of 40 40 Inspired Oxygen (FIO2) 03/06/23 03/06/23 03/06/23 15:34 16:30 19:31 Temperature 97.7 F Pulse Rate 114 H Respiratory 32 H Rate Blood Pressure 164/93 O2 Sat by Pulse 91 L Oximetry Fraction of 40 50 Inspired Oxygen (FIO2) 03/06/23 03/06/23 19:41 22:31 Temperature Pulse Rate 115 H 102 H Respiratory 38 H 30 H Rate Blood Pressure 164/93 124/95 O2 Sat by Pulse 91 L 89 L Oximetry Fraction of Inspired Oxygen (FIO2) - Reevaluation(s) Reevaluation #1: 03/06/23 1500 Patient care signed out at shift change to Dr. Corley awaiting laboratory testin g, chest x-ray, reevaluation. (Gray Reich) Reevaluation #2: Patient does arrest - please see [facility] for details 03/06/23 [id number] (Marissa Corley) EKG Findings - EKG Comments: EKG Findings:: EKG: A. fib with RVR with a first-degree AV block, right bundle block rate of 122, QRS duration 232, QTC 162 similar appearing QRS morphology compared to prior <Gray Reich - Last Filed: 03/06/23 14:55> Procedures - Intubation Laryngoscope: fiber optic video scope Size: 3 Assist Device Used: fiber optic device ET Tube Size: 7.5 ET Tube Uncuffed: No Tube Secured Depth (cm): 25 Tube Secured Location: lips Tube Placement Confirmation: visualized tube passing through cords, equal breath sounds bilaterally, no breath sounds over epigastrium, confirmation by capnometry Patient Tolerated Procedure: well, no complications <Marissa Corley - Last Filed: 03/07/23 01:08> Medical Decision Making - Lab Data Result diagrams: 03/06/23 14:56 03/06/23 14:56 <Marissa Corley - Last Filed: 03/07/23 01:08> - Medical Decision Making Was pt. sent in by a medical professional or institution (, PA, BOND TRADER, urgent care, hospital, or longterm...) When possible be specific @ -[email or web address] Did you speak to anyone other than the patient for history (EMS, parent, family, police, friend...)? What history was obtained from this source @ -ems Did you review nursing and triage notes (agree or disagree)? Why? @ -I reviewed and agree with nursing and triage notes Were old charts reviewed (outside hosp., previous admission, EMS record, old EKG, old radiological studies, urgent care reports/EKG's, longterm records)? Report findings @ -I reviewed the patient's chart from last week when he was sent to the hospital Differential Diagnosis (chest pain, altered mental status, abdominal pain women, abdominal pain men, vaginal bleeding, weakness, fever, dyspnea, syncope, headache, dizziness, GI bleed, back pain, seizure, CVA, palpatations, mental health, musculoskeletal)? @ -Differential Dyspnea: Coronary syndrome, arrhythmia, tamponade, asthma, COPD, pulmonary embolism, pneumonia, pneumothorax, pulmonary effusion, anaphylaxis, diabetic ketoacidosis, flailed chest, pulmonary contusion, diaphragmatic rupture, anemia, neuromuscular, this is not meant to be an all-inclusive list. EKG interpreted by me (3pts min.). @ -Completed at 2238 demonstrates A. fib with a right bundle branch block. Rate of 98. QRS 238. QTC of 481. Repeat completed at 2306 demonstrates a atrial ventricular pacemaker which appears to be capturing appropriately. Rate of 61. MI interval 228. QRS 209. QTC of 507 X-rays interpreted by me (1pt min.). @ -Yes and demonstrates pulmonary vascular congestion CT interpreted by me (1pt min.). @ -None done U/S interpreted by me (1pt. min.). @ -None done What testing was considered but not performed or refused? (CT, X-rays, U/S, labs)? Why? @ -None What meds were considered but not given or refused? Why? @ -None Did you discuss the management of the patient with other professionals (pr ofessionals i.e. , PA, BOND TRADER, lab, RT, psych nurse, social sciences department chair, contracts representative, teacher, banking officer, case management director)? Give summary @ -Patient was admitted to Dr. Nelson who agreed to admission Was smoking cessation discussed for >3mins.? @ -No Was critical care preformed (if so, how long)? @ -65 minutes for bipap management Were there social determinants of health that impacted care today? How? (Homelessness, low income, unemployed, alcoholism, drug addiction, transportation, low edu. Level, literacy, decrease access to med. care, long term, rehab)? @ -Patient resides at [facility] Was there de-escalation of care discussed even if they declined (Discuss DNR or withdrawal of care, Hospice)? DNR status @ -No What co-morbidities impacted this encounter? (DM, HTN, Smoking, COPD, CAD, Cancer, CVA, ARF, Chemo, Hep., AIDS, mental health diagnosis, sleep apnea, morbid obesity)? @ -CHF, diabetes, hypertension, high cholesterol Was patient admitted / discharged? Hospital course, mention meds given and route, prescriptions, significant lab abnormalities, going to OR and other pert inent info. @ -Upon arrival patient was placed into trauma 3. Thorough history and physical exam was performed. He was placed on BiPAP due to his work of breathing. Laboratory studies were conducted and chest x-ray was performed. Chest x-ray does demonstrate pulmonary vascular congestion. Patient was given 60 mg of Lasix and admitted for cardiology to consult. Spoke with Dr. nelson who agreed to admit the patient Patient remained on BiPAP for several hours. He did have improvement in his mentation. Patient was responding to nurse and AIDS. He was recently changed and cleaned up. Shortly after this the nurse noted that the patient seemed to have decrease in his mentation therefore I did go to the room to evaluate the patient. Patient will not arouse to a sternal rub. The patient then has a significant decrease in his respiratory rate and goes apneic. Patient is taken off of the BiPAP and bagged however pulses are then lost. CPR is initiated. Patient's peripheral line does infiltrate and therefore he does require an IO. Please see code sheet for more information. We do obtain Rosc. Blood pressure and EKG are obtained. Patient is started on a Levothroid drip. The patient is set up for a central line when he does code again. CPR is resumed. Patient is coded for an additional 25 minutes. There is no change in the patient's rhythm. Time of is called at 2331. Dr. Nelson is notified and is agreeable to signing the certificate. Ramon, public guardian is made aware. I did notify the adequate examiner. Patient's case number is [id number]. He is able to be released to the longterm however patient is possible gift of life candidate and therefore will be taken to the [facility]. Undiagnosed new problem with uncertain prognosis? @ -No Drug Therapy requiring intensive monitoring for toxicity (Heparin, Nitro, Insulin, Cardizem)? @ -No Were any procedures done? @ -intubation, central line Diagnosis/symptom? @ -Acute BiPAP dependent respiratory failure, acute exacerbation of CHF, acute respiratory arrest with cardiac arrest Acute, or Chronic, or Acute on Chronic? @ -Acute on chronic Uncomplicated (without systemic symptoms) or Complicated (systemic symptoms)? @ -Complicated Side effects of treatment? @ -No Exacerbation, Progression, or Severe Exacerbation? @ -yes Poses a threat to life or bodily function? How? (Chest pain, [place], [place], pneumonia, PE, COPD, DKA, ARF, appy, cholecystitis, CVA, Diverticulitis, Homicidal, Suicidal, threat to staff... and all critical care pts) @ -Yes patient did succumb to diagnosis (BarneyMarissa Jimmy) - Lab Data Lab Results 03/06/23 03/06/23 03/06/23 Range/Units 14:56 14:56 14:56 WBC 9.6 (3.8-10.6) k/uL RBC 3.40 L (4.30-5.90) m/uL Hgb 12.0 L D (13.0-17.5) gm/dL Hct 40.0 (39.0-53.0) % MCV 117.6 H (80.0-100.0) fL MCH 35.3 H (25.0-35.0) pg MCHC 30.0 L (31.0-37.0) g/dL RDW 20.8 H (11.5-15.5) % Plt Count 337 (150-450) k/uL MPV 8.0 Neutrophils % (Manual) 86 % Band Neuts % (Manual) 1 % Lymphocytes % (Manual) 6 % Monocytes % (Manual) 6 % Eosinophils % (Manual) 1 % Neutrophils # (Manual) 8.30 H (1.3-7.7) k/uL Lymphocytes # (Manual) 0.58 L (1.0-4.8) k/uL Monocytes # (Manual) 0.58 (0-1.0) k/uL Eosinophils # (Manual) 0.10 (0-0.7) k/uL Nucleated RBCs 0 (0-0) /100 WBC Manual Slide Review Performed Polychromasia Present Hypochromasia Marked Poikilocytosis Moderate Anisocytosis Moderate Macrocytosis Marked A PT 14.2 H (10.0-12.5) sec INR 1.4 H (<1.2) APTT 29.0 (22.0-30.0) sec Sodium 146 H (137-145) mmol/L Potassium 4.9 (3.5-5.1) mmol/L Chloride 102 (98-107) mmol/L Carbon Dioxide 26 (22-30) mmol/L Anion Gap 18 mmol/L BUN 105 H* (9-20) mg/dL Creatinine 3.08 H (0.66-1.25) mg/dL Est GFR (CKD-EPI)AfAm 22 (>60 ml/min/1.73 sqM) Est GFR (CKD-EPI)NonAf 19 (>60 ml/min/1.73 sqM) Glucose 148 H (74-99) mg/dL Plasma Lactic Acid Ilya (0.7-2.0) mmol/L Calcium 8.4 (8.4-10.2) mg/dL Magnesium 2.7 H (1.6-2.3) mg/dL Total Bilirubin 1.2 (0.2-1.3) mg/dL AST 143 H (17-59) U/L ALT 121 H (4-49) U/L Alkaline Phosphatase 142 H (38-126) U/L Troponin I (0.000-0.034) ng/mL NT-Pro-B Natriuret Pep 01016 pg/mL Total Protein 8.0 (6.3-8.2) g/dL Albumin 2.8 L (3.5-5.0) g/dL Influenza Type A (PCR) (Not Detectd) Influenza Type B (PCR) (Not Detectd) RSV (PCR) (Not Detectd) SARS-CoV-2 (PCR) (Not Detectd) 03/06/23 03/06/23 03/06/23 Range/Units 14:56 14:56 14:56 WBC (3.8-10.6) k/uL RBC (4.30-5.90) m/uL Hgb (13.0-17.5) gm/dL Hct (39.0-53.0) % MCV (80.0-100.0) fL MCH (25.0-35.0) pg MCHC (31.0-37.0) g/dL RDW (11.5-15.5) % Plt Count (150-450) k/uL MPV Neutrophils % (Manual) % Band Neuts % (Manual) % Lymphocytes % (Manual) % Monocytes % (Manual) % Eosinophils % (Manual) % Neutrophils # (Manual) (1.3-7.7) k/uL Lymphocytes # (Manual) (1.0-4.8) k/uL Monocytes # (Manual) (0-1.0) k/uL Eosinophils # (Manual) (0-0.7) k/uL Nucleated RBCs (0-0) /100 WBC Manual Slide Review Polychromasia Hypochromasia Poikilocytosis Anisocytosis Macrocytosis PT (10.0-12.5) sec INR (<1.2) APTT (22.0-30.0) sec Sodium (137-145) mmol/L Potassium (3.5-5.1) mmol/L Chloride (98-107) mmol/L Carbon Dioxide (22-30) mmol/L Anion Gap mmol/L BUN (9-20) mg/dL Creatinine (0.66-1.25) mg/dL Est GFR (CKD-EPI)AfAm (>60 ml/min/1.73 sqM) Est GFR (CKD-EPI)NonAf (>60 ml/min/1.73 sqM) Glucose (74-99) mg/dL Plasma Lactic Acid Ilya 2.3 H* (0.7-2.0) mmol/L Calcium (8.4-10.2) mg/dL Magnesium (1.6-2.3) mg/dL Total Bilirubin (0.2-1.3) mg/dL AST (17-59) U/L ALT (4-49) U/L Alkaline Phosphatase (38-126) U/L Troponin I 0.038 H* (0.000-0.034) ng/mL NT-Pro-B Natriuret Pep pg/mL Total Protein (6.3-8.2) g/dL Albumin (3.5-5.0) g/dL Influenza Type A (PCR) Not Detected (Not Detectd) Influenza Type B (PCR) Not Detected (Not Detectd) RSV (PCR) Not Detected (Not Detectd) SARS-CoV-2 (PCR) Not Detected (Not Detectd) Disposition <Gray Reich - Last Filed: 03/06/23 14:55> Is patient prescribed a controlled substance at d/c from ED?: No Time of Disposition: 18:15 Decision to Admit Reason: Admit from EC Decision Date: 03/06/23 Decision Time: 18:15 <Marissa Corley - Last Filed: 03/07/23 01:08> Clinical Impression: BiPAP (biphasic positive airway pressure) dependence, Acute exacerbation of congestive heart failure Disposition: ADMITTED IP TO THIS HOSP Condition: Serious
[2023-03-06 18:05] LABS: ALT 121 U/L (4-49); AST 143 U/L (17-59); African American GFR (CKD) 22 (>60 ml/min/1.73 sqM); Albumin 2.8 g/dL (3.5-5.0); Alkaline Phosphatase 142 U/L (38-126); Anion Gap 18 mmol/L; Calcium 8.4 mg/dL (8.4-10.2); Carbon Dioxide 26 mmol/L (22-30); Chloride 102 mmol/L (98-107); Glucose 148 mg/dL (74-99); Magnesium 2.7 mg/dL (1.6-2.3); Non-African American GFR(CKD) 19 (>60 ml/min/1.73 sqM); Potassium 4.9 mmol/L (3.5-5.1); Sodium 146 mmol/L (137-145); Total Bilirubin 1.2 mg/dL (0.2-1.3)
[2023-03-06 18:07] LABS: Anisocytosis Moderate; Hypochromasia Marked; MCH 35.3 pg (25.0-35.0); MCV 117.6 fL (80.0-100.0); Macrocytosis Marked; Platelet Count 337 k/uL (150-450); Poikilocytosis Moderate; RDW 20.8 % (11.5-15.5); WBC 9.6 k/uL (3.8-10.6)
[2023-03-06 18:08] LABS: INR 1.4 (<1.2); Prothrombin Time 14.2 sec (10.0-12.5)
[2023-03-06 18:15] LABS: NT-Pro-B-Type Natriuretic Pept 22000 pg/mL
[2023-03-06] MEDS ORDERED: NALOXONE 0.4 MG/ML 1 ML VIAL IV PRN (18:17)
[2023-03-06 18:21] LABS: Blood Urea Nitrogen 105 mg/dL (9-20)
[2023-03-06 18:46] LABS: Polychromasia Present
[2023-03-06 18:47] LABS: Band Neutrophils % 1 %; Lymphocytes # (M) 0.58 k/uL (1.0-4.8); Monocytes # (M) 0.58 k/uL (0-1.0); Neutrophils % (M) 86 %; Nucleated Red Blood Cells 0 /100 WBC (0-0); Total Cells Counted 100
[2023-03-06 18:51] VITALS: TEMP 97.7
[2023-03-06] MEDS: FUROSEMIDE 10 MG/ML 10 ML VIAL IV STA (19:14)
[2023-03-06] MEDS ORDERED: IPRATROPIUM-ALBUTEROL 3 ML NEB INHALATION PRN (20:17)
[2023-03-06] MEDS ORDERED: SERTRALINE 50 MG TAB PO SCH (21:00)
[2023-03-06] MEDS ORDERED: ATORVASTATIN 40 MG TAB PO SCH (21:00)
[2023-03-06] MEDS ORDERED: INSULIN DETEMIR (LEVEMIR) 100 UNIT/ML SYR SQ SCH (21:00)
[2023-03-06] MEDS ORDERED: risperiDONE 0.5 MG TAB PO SCH (21:00)
[2023-03-06 21:17] LABS: Glucose,Whole Blood 175 mg/dL (70-110)
[2023-03-06] MEDS ORDERED: CYCLOBENZAPRINE 5 MG TAB PO SCH (22:00)
[2023-03-06 22:36] VITALS: BP 124/95; PULSE 102; RESP 30
[2023-03-06] MEDS ORDERED: EPINEPHrine 10 ML SYRINGE (0.1 MG/ML) ONE (22:43)
[2023-03-06] MEDS ORDERED: SODIUM BICARB 8.4% 50 ML SYR (1 MEQ/ML) ONE (22:43)
[2023-03-06 22:51] LABS: Glucose,Whole Blood 208 mg/dL (70-110)
[2023-03-06] MEDS ORDERED: NOREPINEPHRINE 32 MG in SODIUM CHLORIDE 0.9% 218 ML IV SCH (23:15)
[2023-03-07] MEDS ORDERED: IPRATROPIUM-ALBUTEROL 3 ML NEB INHALATION SCH (02:00)
--- NOTE | 2023-03-07 03:30 | P.PCN ---
Date of Procedure: 03/06/23 Preoperative Diagnosis: Cardiac arrest Procedure(s) Performed: R triple lumen femoral central venous catheter placement Anesthesia: none Indications for Procedure: Cardiac arrest, shock Description of Procedure: The procedure was performed shortly after ROSC following the Code Blue. The patient's right groin was prepped and draped in a sterile fashion. Ultrasound was used to identify the femoral vein and the needle was observed entering the vein. Using the Seldinger technique, the guidewire was inserted through the needle with needle subsequently withdrawn and the dilator passed over the guidewire to dilate the vessel. The dilator was then withdrawn and the triple- lumen catheter was passed over the guidewire and subsequently flushed with sterile saline. The catheter was then sutured in place to the skin. The procedure was supervised by Dr Corley.
[2023-03-07] MEDS ORDERED: SPIRONOLACTONE 25 MG TAB PO SCH (06:00)
[2023-03-07] MEDS ORDERED: PANTOPRAZOLE 40 MG TABLET PO SCH (06:00)
[2023-03-07] MEDS ORDERED: MIDODRINE 5 MG TAB PO SCH (07:00)
[2023-03-07] MEDS ORDERED: DAPAGLIFLOZIN PROPANEDIOL 10 MG TABLET PO SCH (08:00)
[2023-03-07] MEDS ORDERED: METOPROLOL TARTRATE 50 MG TAB PO SCH (08:00)
[2023-03-07] MEDS ORDERED: AMIODARONE 200 MG TAB PO SCH (08:00)
[2023-03-07] MEDS ORDERED: allopurinoL 100 MG TAB PO SCH (08:00)
[2023-03-07] MEDS ORDERED: APIXABAN 5 MG TAB PO SCH (08:00)
[2023-03-07] MEDS ORDERED: CLOPIDOGREL 75 MG TAB PO SCH (08:00)
[2023-03-07] MEDS ORDERED: FERROUS SULFATE 325 MG TAB PO SCH (08:00)
[2023-03-07] MEDS ORDERED: ASPIRIN 81 MG PO SCH (08:00)
[2023-03-07] MEDS ORDERED: POTASSIUM CHLORIDE ER 20 MEQ TAB.ER PO SCH (08:00)
[2023-03-07] MEDS ORDERED: CHOLECALCIFEROL 25 MCG (1000 IU) TABLET PO SCH (08:00)
[2023-03-07] MEDS ORDERED: BUDESONIDE 1 MG/2 ML NEBU INHALATION SCH (08:00)
[2023-03-07] MEDS ORDERED: OXYBUTYNIN XL 5 MG TAB.ER.24 PO SCH (08:00)
[2023-03-07] MEDS ORDERED: SODIUM BICARBONATE TAB 650 MG TAB PO SCH (08:00)
[2023-03-08] MEDS ORDERED: metOLazone 5 MG TAB PO SCH (09:00)
--- NOTE | 2023-03-12 18:24 | P.HPIM ---
History of Present Illness H&P Date: 03/12/23 Patient in the ER, and patient was not seen by me. Past Medical History Past Medical History: Atrial Fibrillation, Coronary Artery Disease (CAD), Heart Failure, Diabetes Mellitus, Hyperlipidemia, Hypertension Additional Past Medical History / Comment(s): Gout. Hx UTI, CKD, Hx COVID, C diff colitis History of Any Multi-Drug Resistant Organisms: MRSA Date of last positivie culture/infection: 01/21/23 MDRO Source:: Left Foot Past Surgical History: Heart Catheterization With Stent, Orthopedic Surgery, Pacemaker Additional Past Surgical History / Comment(s): 2 STENTS DEC 2020, left hip surgery X2. Past Anesthesia/Blood Transfusion Reactions: No Reported Reaction, Postoperative Nausea & Vomiting (PONV) Additional Past Anesthesia/Blood Transfusion Reaction / Comment(s): UNKNOWN FAMILY HX. Date of Last Stent Placement:: DEC 2020 Type of Cardiac Device: Unknown Device Placement Date:: Unknown Past Psychological History: Anxiety, Depression Smoking Status: Former smoker Past Alcohol Use History: None Reported Past Drug Use History: None Reported - Past Family History Mother Family Medical History: Cancer Brother(s) Family Medical History: Cancer Additional Family Medical History / Comment(s): Lung cancer. Father History Unknown: Yes Family Medical History: Hyperlipidemia Medications and Allergies Home Medications Medication Instructions Recorded Confirmed Type Sertraline HCl [Zoloft] 50 mg PO HS 10/21/20 03/06/23 History allopurinoL [Zyloprim] 100 mg PO DAILY@0800 10/21/20 03/06/23 History risperiDONE [RisperDAL] 0.5 mg PO HS 10/21/20 03/06/23 History Apixaban [Eliquis] 5 mg PO BID@0800,1700 05/09/21 03/06/23 History Thiamine HCl [Vitamin B-1] 100 mg PO DAILY@0800 05/09/21 03/06/23 History Atorvastatin [Lipitor] 40 mg PO HS 10/16/22 03/06/23 History Clopidogrel [Plavix] 75 mg PO DAILY@0800 10/16/22 03/06/23 History Lidocaine 5% Patch [Lidoderm 5% 1 patch TRANSDERM DAILY@0800 10/17/22 03/06/23 History Patch] Cholecalciferol [Vitamin D3 (25 50 mcg PO DAILY@0800 12/14/22 03/06/23 History Mcg = 1000 Iu)] Cyclobenzaprine [Flexeril] 5 mg PO TID@0600,1400,2200 12/14/22 03/06/23 History Ipratropium-Albuterol Nebulize 3 ml INHALATION RT-Q6H PRN 12/14/22 03/06/23 History [Duoneb 0.5 mg-3 mg/3 ml Soln] Potassium Chloride ER [K-Dur 20] 20 meq PO BID@0800,1700 12/14/22 03/06/23 History Sodium Bicarbonate Tab 650 mg PO BID@0800,1700 12/14/22 03/06/23 History oxyBUTYnin chloride [oxyBUTYnin 5 mg PO DAILY@0800 12/14/22 03/06/23 History chloride ER] Budesonide [Pulmicort] 1 mg INHALATION RT-BID@0800,1400 12/27/22 03/06/23 History Dapagliflozin Propanediol [Farxiga] 10 mg PO DAILY@0800 12/27/22 03/06/23 History Lactobacillus Acidophilus 1 cap PO DAILY@0800 12/27/22 03/06/23 History [Acidophilus Probiotic] Pantoprazole [Protonix] 40 mg PO DAILY@0600 12/27/22 03/06/23 History Glucerna Shake 237 ml PO TID@0800,1200,1700 01/21/23 03/06/23 History INSULIN ASPART (NovoLOG) [NovoLOG See Protocol SQ ACHS 01/21/23 03/06/23 History (formulary)] Insulin Detemir (Levemir) [Levemir] 10 unit SQ HS 01/21/23 03/06/23 History Ipratropium-Albuterol Nebulize 3 ml INHALATION RT-Q6H 01/21/23 03/06/23 History [Duoneb 0.5 mg-3 mg/3 ml Soln] Multivit-Min/FA/Lycopen/Lutein 1 tab PO DAILY@0800 01/21/23 03/06/23 History [Centrum Silver Tablet] Acetaminophen Tab [Tylenol] 650 mg PO Q6HR PRN 02/12/23 03/06/23 History Amiodarone [Cordarone] 200 mg PO DAILY@0800 02/12/23 03/06/23 History Aspirin 81 mg PO DAILY@0800 02/12/23 03/06/23 History Furosemide [Lasix] 40 mg PO BID@0600,1400 02/12/23 03/06/23 History Loperamide [Imodium] 2 mg PO QID PRN 02/12/23 03/06/23 History Magnesium Hydroxide [Milk of 7,200 mg PO DIRECTED PRN 02/12/23 03/06/23 History Magnesia Concentrate] Metoprolol Tartrate [Lopressor] 100 mg PO BID@0800,1700 02/12/23 03/06/23 History Midodrine HCl [ProAmantine] 2.5 mg PO TID@0700,1100,1630 02/12/23 03/06/23 History Spironolactone [Aldactone] 25 mg PO DAILY@0600 02/12/23 03/06/23 History metOLazone [Zaroxolyn] 5 mg PO Q48H 02/12/23 03/06/23 History Ferrous Sulfate [Iron] 325 mg PO BID@0800,1700 03/06/23 03/06/23 History Na Phos,M-B/Na Phos,Di-Ba [Fleet 133 ml RECTAL DAILY PRN 03/06/23 03/06/23 History Adult] Sodium Chloride [[place]] 2 spray EA NOSTRIL TID 03/06/23 03/06/23 History Triamcinolone 0.5% Cream [Kenalog 1 applic TOPICAL BID 03/06/23 03/06/23 History 0.5% Cream] bisacodyL [Dulcolax] 10 mg RECTAL DAILY PRN 03/06/23 03/06/23 History Allergies Allergy/AdvReac Type Severity Reaction Status Date / Time No Known Allergies Allergy Verified 03/06/23 18:10 Results CBC & Chem 7: 03/06/23 14:56 03/06/23 14:56
--- NOTE | 2023-03-12 18:26 | P.DS ---
Providers Date of admission: 03/06/23 18:17 Expected date of discharge: 04/06/23 Attending physician: Damian Kaufman Consults: 03/06/23 18:17 Consult Physician Urgent Consulting Provider: [facility] Consult Reason/Comments: [email or web address] Do you want consulting provider notified?: Yes Primary care physician: [facility] Course: Patient in the ER. Was not seen by me. Plan - Discharge Summary New Discharge Prescriptions: No Action risperiDONE [RisperDAL] 0.5 mg PO HS Sertraline HCl [Zoloft] 50 mg PO HS Apixaban [Eliquis] 5 mg PO BID@0800,1700 Clopidogrel [Plavix] 75 mg PO DAILY@0800 Lidocaine 5% Patch [Lidoderm 5% Patch] 1 patch TRANSDERM DAILY@0800 Cyclobenzaprine [Flexeril] 5 mg PO TID@0600,1400,2200 Sodium Bicarbonate Tab 650 mg PO BID@0800,1700 Potassium Chloride ER [K-Dur 20] 20 meq PO BID@0800,1700 oxyBUTYnin chloride [oxyBUTYnin chloride ER] 5 mg PO DAILY@0800 Cholecalciferol [Vitamin D3 (25 Mcg = 1000 Iu)] 50 mcg PO DAILY@0800 Lactobacillus Acidophilus [Acidophilus Probiotic] 1 cap PO DAILY@0800 Budesonide [Pulmicort] 1 mg INHALATION RT-BID@0800,1400 Dapagliflozin Propanediol [Farxiga] 10 mg PO DAILY@0800 Pantoprazole [Protonix] 40 mg PO DAILY@0600 Insulin Detemir (Levemir) [Levemir] 10 unit SQ HS Ipratropium-Albuterol Nebulize [Duoneb 0.5 mg-3 mg/3 ml Soln] 3 ml INHALATION RT-Q6H Loperamide [Imodium] 2 mg PO QID PRN PRN Reason: Diarrhea Acetaminophen Tab [Tylenol] 650 mg PO Q6HR PRN PRN Reason: Fever And/ Or Pain Midodrine HCl [ProAmantine] 2.5 mg PO TID@0700,1100,1630 metOLazone [Zaroxolyn] 5 mg PO Q48H Aspirin 81 mg PO DAILY@0800 Amiodarone [Cordarone] 200 mg PO DAILY@0800 Metoprolol Tartrate [Lopressor] 100 mg PO BID@0800,1700 Magnesium Hydroxide [Milk of Magnesia Concentrate] 7,200 mg PO DIRECTED PRN PRN Reason: 2 days no BM Na Phos,M-B/Na Phos,Di-Ba [Fleet Adult] 133 ml RECTAL DAILY PRN PRN Reason: Constipation Triamcinolone 0.5% Cream [Kenalog 0.5% Cream] 1 applic TOPICAL BID Sodium Chloride [[place]] 2 spray EA NOSTRIL TID Ferrous Sulfate [Iron] 325 mg PO BID@0800,1700 allopurinoL [Zyloprim] 100 mg PO DAILY@0800 Thiamine HCl [Vitamin B-1] 100 mg PO DAILY@0800 Atorvastatin [Lipitor] 40 mg PO HS Ipratropium-Albuterol Nebulize [Duoneb 0.5 mg-3 mg/3 ml Soln] 3 ml INHALATION RT-Q6H PRN PRN Reason: Shortness Of Breath INSULIN ASPART (NovoLOG) [NovoLOG (formulary)] See Protocol SQ ACHS Glucerna Shake 237 ml PO TID@0800,1200,1700 Multivit-Min/FA/Lycopen/Lutein [Centrum Silver Tablet] 1 tab PO DAILY@0800 Spironolactone [Aldactone] 25 mg PO DAILY@0600 Furosemide [Lasix] 40 mg PO BID@0600,1400 bisacodyL [Dulcolax] 10 mg RECTAL DAILY PRN PRN Reason: Constipation Discharge Medication List Sertraline HCl [Zoloft] 50 mg PO HS 10/21/20 [History] allopurinoL [Zyloprim] 100 mg PO DAILY@0800 10/21/20 [History] risperiDONE [RisperDAL] 0.5 mg PO HS 10/21/20 [History] Apixaban [Eliquis] 5 mg PO BID@0800,1700 05/09/21 [History] Thiamine HCl [Vitamin B-1] 100 mg PO DAILY@0800 05/09/21 [History] Atorvastatin [Lipitor] 40 mg PO HS 10/16/22 [History] Clopidogrel [Plavix] 75 mg PO DAILY@0800 10/16/22 [History] Lidocaine 5% Patch [Lidoderm 5% Patch] 1 patch TRANSDERM DAILY@0800 10/17/22 [History] Cholecalciferol [Vitamin D3 (25 Mcg = 1000 Iu)] 50 mcg PO DAILY@0800 12/14/22 [History] Cyclobenzaprine [Flexeril] 5 mg PO TID@0600,1400,2200 12/14/22 [History] Ipratropium-Albuterol Nebulize [Duoneb 0.5 mg-3 mg/3 ml Soln] 3 ml INHALATION RT-Q6H PRN 12/14/22 [History] Potassium Chloride ER [K-Dur 20] 20 meq PO BID@0800,1700 12/14/22 [History] Sodium Bicarbonate Tab 650 mg PO BID@0800,1700 12/14/22 [History] oxyBUTYnin chloride [oxyBUTYnin chloride ER] 5 mg PO DAILY@0800 12/14/22 [History] Budesonide [Pulmicort] 1 mg INHALATION RT-BID@0800,1400 12/27/22 [History] Dapagliflozin Propanediol [Farxiga] 10 mg PO DAILY@0800 12/27/22 [History] Lactobacillus Acidophilus [Acidophilus Probiotic] 1 cap PO DAILY@0800 12/27/22 [History] Pantoprazole [Protonix] 40 mg PO DAILY@0600 12/27/22 [History] Glucerna Shake 237 ml PO TID@0800,1200,1700 01/21/23 [History] INSULIN ASPART (NovoLOG) [NovoLOG (formulary)] See Protocol SQ ACHS 01/21/23 [History] Insulin Detemir (Levemir) [Levemir] 10 unit SQ HS 01/21/23 [History] Ipratropium-Albuterol Nebulize [Duoneb 0.5 mg-3 mg/3 ml Soln] 3 ml INHALATION RT-Q6H 01/21/23 [History] Multivit-Min/FA/Lycopen/Lutein [Centrum Silver Tablet] 1 tab PO DAILY@0800 01/21/23 [History] Acetaminophen Tab [Tylenol] 650 mg PO Q6HR PRN 02/12/23 [History] Amiodarone [Cordarone] 200 mg PO DAILY@0800 02/12/23 [History] Aspirin 81 mg PO DAILY@0800 02/12/23 [History] Furosemide [Lasix] 40 mg PO BID@0600,1400 02/12/23 [History] Loperamide [Imodium] 2 mg PO QID PRN 02/12/23 [History] Magnesium Hydroxide [Milk of Magnesia Concentrate] 7,200 mg PO DIRECTED PRN 02/12/23 [History] Metoprolol Tartrate [Lopressor] 100 mg PO BID@0800,1700 02/12/23 [History] Midodrine HCl [ProAmantine] 2.5 mg PO TID@0700,1100,1630 02/12/23 [History] Spironolactone [Aldactone] 25 mg PO DAILY@0600 02/12/23 [History] metOLazone [Zaroxolyn] 5 mg PO Q48H 02/12/23 [History] Ferrous Sulfate [Iron] 325 mg PO BID@0800,1700 03/06/23 [History] Na Phos,M-B/Na Phos,Di-Ba [Fleet Adult] 133 ml RECTAL DAILY PRN 03/06/23 [History] Sodium Chloride [[place]] 2 spray EA NOSTRIL TID 03/06/23 [History] Triamcinolone 0.5% Cream [Kenalog 0.5% Cream] 1 applic TOPICAL BID 03/06/23 [History] bisacodyL [Dulcolax] 10 mg RECTAL DAILY PRN 03/06/23 [History] Follow up Appointment(s)/Referral(s): Umesh Alvarez DO [Primary Care Provider] - 1-2 days Discharge Disposition: - Preliminary Cause of Preliminary Cause of : Coronary artery disease
== END 2023-03-06 23:31 | disposition expired | DRG 291 ==
LOC: EC 13:31 → 3SCARD 18:17 → 2SICU 23:12 → UNDODISIN 03-07 01:00
PROVIDERS: ADMIT Hospitalist; ATTEND Hospitalist
PROC: 5A09357 Assistance with Respiratory Ventilation, Less than 24 Consecutive Hours, Continuous Positive Airway Pressure (ICD-10-PCS; principal; 2023-03-06)
PROC: 0BH17EZ Insertion of Endotracheal Airway into Trachea, Via Natural or Artificial Opening (ICD-10-PCS; principal; 2023-03-06)
PROC: 06HY33Z Insertion of Infusion Device into Lower Vein, Percutaneous Approach (ICD-10-PCS; principal; 2023-03-06)
PROC: 5A12012 Performance of Cardiac Output, Single, Manual (ICD-10-PCS; principal; 2023-03-06)
DX: I13.0 Hypertensive heart and chronic kidney disease with heart failure and stage 1 through stage 4 chronic kidney disease, or unspecified chronic kidney disease (principal); J96.91 Respiratory failure, unspecified with hypoxia; I46.2 Cardiac arrest due to underlying cardiac condition; R57.0 Cardiogenic shock; I45.10 Unspecified right bundle-branch block; I50.9 Heart failure, unspecified; I48.91 Unspecified atrial fibrillation; M10.9 Gout, unspecified; E11.22 Type 2 diabetes mellitus with diabetic chronic kidney disease; N18.9 Chronic kidney disease, unspecified; Z86.16 Personal history of COVID-19; Z87.440 Personal history of urinary (tract) infections; Z79.01 Long term (current) use of anticoagulants; Z79.02 Long term (current) use of antithrombotics/antiplatelets; Z79.4 Long term (current) use of insulin; Z79.82 Long term (current) use of aspirin; Z79.84 Long term (current) use of oral hypoglycemic drugs; Z86.14 Personal history of Methicillin resistant Staphylococcus aureus infection; Z95.5 Presence of coronary angioplasty implant and graft; Z82.49 Family history of ischemic heart disease and other diseases of the circulatory system; Z79.51 Long term (current) use of inhaled steroids
CPT/HCPCS: 31500; 36415; 71045; 80053; 83605; 83735; 83880; 84484; 85025; 85610; 85730; 87636; 92950; 93005; 94660; 96365; 99291